=== PATIENT | female | born 1945 | race Caucasian/White ===

== ENCOUNTER 2016-09-17 11:23 | Inpatient (IN) | payer OTHER ==
--- NOTE | 2016-09-17 11:59 | PDOC ---
History of Present Illness <Kaiden Lim - Last Filed: 09/17/16 13:00> - History of Present Illness Initial Comments: 09/17/16 12:42 The patient is a 71 year old female, with a significant past medical history of , who presents to the emergency department with pain and drainage from her right upper extremity wound sent by Dr. Hilton today. The patient states her wound is the result of an infected AV fistula. She reports pain, swelling and some drainage from the wound. She denies chest pain, shortness of breath, headache and dizziness. She denies fever, chills, nausea, vomit, diarrhea and constipation. She denies dysuria, frequency, urgency and hematuria. Past surgical history: Left AKA, right Carballo Amputation PCP: Dr. Edwar Schmitz Vascular: Dr. Hilton <Nasrin Rivera - Last Filed: 09/17/16 13:04> - General Chief Complaint: Wound Infection Stated Complaint: INFECTION Past History - Past Medical History Anemia: Yes Asthma: No Cancer: No Cardiac Disorders: Yes (STENTS TIMES THREE) CVA: No COPD: No CHF: Yes Dementia: No Diabetes: Yes (IDDM) GI Disorders: No Disorders: Yes (CRF;[id number]) HTN: Yes Hypercholesterolemia: Yes Liver Disease: No Suicide Attempt (Hx): No Seizures: No Thyroid Disease: Yes - Surgical History Abdominal Surgery: No Appendectomy: No Cardiac Surgery: Yes (STENTS X3) Cholecystectomy: No Lung Surgery: No Neurologic Surgery: No Orthopedic Surgery: Yes (R.Rotator Cuff, R.AKA. LEFT MID FOOT AMPUTATION) - Psycho/Social/Smoking Cessation Hx Anxiety: No Suicidal Ideation: No Smoking Status: No Smoking History: Never smoked Have you smoked in the past 12 months: No Number of Cigarettes Smoked Daily: 0 Hx Alcohol Use: No Drug/Substance Use Hx: No Substance Use Type: None Hx Substance Use Treatment: No <Kaiden Lim - Last Filed: 09/17/16 13:00> <Nasrin Rivera - Last Filed: 09/17/16 13:04> - Past Medical History Allergies/Adverse Reactions: Allergies Allergy/AdvReac Type Severity Reaction Status Date / Time Sulfa (Sulfonamide Allergy Unknown Verified 12/23/16 11:52 Antibiotics) [Sulfa(Sulfonamide Antibiotics)] amoxicillin trihydrate AdvReac Severe Verified 09/17/16 11:52 [From Augmentin] potassium clavulanate AdvReac Severe Verified 09/17/16 11:52 [From Augmentin] tape AdvReac Severe Uncoded 09/17/16 11:52 Home Medications: Ambulatory Orders Insulin (Levemir) [Levemir Flexpen -] 18 units SQ HS 08/20/14 Aspirin [ASA -] 81 mg PO DAILY #90 tab.chew 08/29/14 Clopidogrel Bisulfate [Plavix -] 75 mg PO DAILY #90 tablet 08/29/14 Cyanocobalamin [Vitamin B12 -] 100 mcg PO DAILY #90 tablet 08/29/14 Glipizide 5 mg PO DAILY #90 tablet 08/29/14 Insulin (Levemir) [Levemir Flexpen -] 20 units SQ AM #90 pen 08/29/14 Pantoprazole Sodium [Protonix -] 40 mg PO DAILY #30 tablet.ec 08/29/14 Calcium Acetate [Phoslo -] 667 mg PO TID 04/06/16 Levothyroxine [Synthroid -] 213 mcg PO DAILY 08/10/16 Levothyroxine [Synthroid -] 250 mcg PO ASDIR 08/10/16 Metoprolol Succinate [Toprol XL -] 12.5 mg PO DAILY 08/10/16 Acetaminophen W/ Codeine #3 [Tylenol # 3 -] 1 tab PO Q4H PRN #90 tablet MDD 4 Alprazolam [Xanax] 0.25 mg PO DAILY PRN #30 tablet MDD 1 08/14/16 Oxycodone HCl [Roxicodone -] 5 mg PO Q6H #20 tablet MDD 6 08/14/16 Review of Systems - Review of Systems Able to Perform ROS?: Yes Comments:: 09/17/16 12:48 CONSTITUTIONAL: Absent: fever, chills, diaphoresis, generalized weakness, malaise, loss of appetite HEENT: Absent: rhinorrhea, nasal congestion, throat pain, throat swelling, difficulty swallowing, mouth swelling, ear pain, eye pain, visual Changes CARDIOVASCULAR: Absent: chest pain, syncope, palpitations, irregular heart rate, lightheadedness , peripheral edema RESPIRATORY: Absent: cough, shortness of breath, dyspnea with exertion, orthopnea, wheezing, stridor, hemoptysis GASTROINTESTINAL: Absent: abdominal pain, abdominal distension, nausea, vomiting, diarrhea, constipation, melena, hematochezia GENITOURINARY: Absent: dysuria, frequency, urgency, hesitancy, hematuria, flank pain, genital pain MUSCULOSKELETAL: Absent: myalgia, arthralgia, joint swelling SKIN: (+) wound infection and pain RUE. Absent: rash, itching, pallor HEMATOLOGIC/IMMUNOLOGIC: Absent: easy bleeding, easy bruising, lymphadenopathy, frequent infections ENDOCRINE: Absent: unexplained weight gain, unexplained weight loss, heat intolerance, cold intolerance NEUROLOGIC: Absent: headache, focal weakness or paresthesias, dizziness, unsteady gait, seizure, mental status changes, bladder or bowel incontinence PSYCHIATRIC: Absent: anxiety, depression, suicidal or homicidal ideation, hallucinations. <Nasrin Rivera - Last Filed: 09/17/16 13:04> *Physical Exam - Vital Signs Last Vital Signs Temp Pulse Resp BP Pulse Ox 98.4 F 58 L 20 180/50 98 09/17/16 11:48 09/17/16 11:48 09/17/16 11:48 09/17/16 11:48 09/17/16 11:48 <Kaiden Lim - Last Filed: 09/17/16 13:00> - Vital Signs Last Vital Signs Temp Pulse Resp BP Pulse Ox 98.4 F 58 L 20 180/50 98 09/17/16 11:48 09/17/16 11:48 09/17/16 11:48 09/17/16 11:48 09/17/16 11:48 - Physical Exam Comments: 09/17/16 12:49 GENERAL: Well developed, well nourished. Awake and alert. No acute distress. HEENT: Normocephalic, atraumatic. PERRLA, EOMI. No conjunctival pallor. Sclera are non- icteric. Moist mucous membranes. Oropharynx is clear. NECK: Supple. Full ROM. No JVD. Carotid pulses 2+ and symmetric, without bruits. No thyromegaly. No lymphadenopathy. CARDIOVASCULAR: Regular rate and rhythm. No murmurs, rubs, or gallops. Distal pulses are 2+ and symmetric. PULMONARY: No evidence of respiratory distress. Lungs clear to auscultation bilaterally. No wheezing, rales or rhonchi. ABDOMINAL: Soft. Non-tender. Non-distended. No rebound or guarding. No organomegaly. Normoactive bowel sounds. MUSCULOSKELETAL Normal range of motion at all joints. No bony deformities or tenderness. No CVA tenderness. EXTREMITIES: (+) Open wound inner aspect to right upper extremity. graft visible and appears infected/cellulitic, Right AKA, carballo amputation left lower extremity. No cyanosis. No clubbing. No edema. No calf tenderness. SKIN: Warm and dry. Normal capillary refill. No rashes. No jaundice. NEUROLOGICAL: Alert, awake, appropriate. Cranial nerves 2-12 intact. Normoreflexic in the upper and lower extremities. Normal speech. Toes are down-going bilaterally. Gait is normal without ataxia. PSYCHIATRIC: Cooperative. Good eye contact. Appropriate mood and affect. <Nasrin Rivera - Last Filed: 09/17/16 13:04> ED Treatment Course - LABORATORY CBC & Chemistry Diagram: 09/17/16 12:22 09/17/16 12:22 <Kaiden Lim - Last Filed: 09/17/16 13:00> - LABORATORY CBC & Chemistry Diagram: 09/17/16 12:22 09/17/16 12:22 <Nasrin Rivera - Last Filed: 09/17/16 13:04> Medical Decision Making - Medical Decision Making 09/17/16 12:52 The patient is a 72 year old female who presents from Dr. Hilton's office for infected RUE fistula. The infected graft is showing through with skin erosion and cellulitis. I will admit for IV abx. <Nasrin Rivera - Last Filed: 09/17/16 13:04> *DC/Admit/Observation/Transfer - Discharge Dispostion Admit: Yes <Kaiden Lim - Last Filed: 09/17/16 13:00> - Attestations Scribe Attestion: 09/17/16 12:51 Documentation prepared by Nasrin Rivera, acting as director global medical affairs for Kaiden Lim MD, <Nasrin Rivera - Last Filed: 09/17/16 13:04> Diagnosis at time of Disposition: ESRD on hemodialysis Dialysis AV fistula infection Qualifiers: Encounter type: initial encounter Qualified Code(s): T82.7XXA - Infection and inflammatory reaction due to other cardiac and vascular devices, implants and grafts, initial encounter - Discharge Dispostion Condition at time of disposition: Guarded
[2016-09-17] MEDS ORDERED: VANCOMYCIN 1,000 MG in DEXTROSE 5%-WATER - 250 ML IVPB ONE (12:09)
[2016-09-17] MEDS ORDERED: VANCOMYCIN 1 GRAM (PRE-DOCKED) 250 ML IVPB ONE (12:18)
[2016-09-17 12:41] LABS: BASOPHIL 0.9 % (0-2.0); EOSINOPHIL 1.6 % (0-4.5); MCH 28.4 pg (25.7-33.7); MCHC 31.5 g/dl (32.0-36.0); MEAN CELL VOLUME 90.1 fl (80-96); MEAN PLT VOLUME 8.4 fl (7.5-11.1); NEUTROPHILS 78.6 % (42.8-82.8); PLATELET COUNT 366 K/MM3 (134-434); RDW 17.2 % (11.6-15.6); WHITE BLOOD COUNT 10.5 K/mm3 (4.0-10.0)
[2016-09-17] MEDS ORDERED: morphine CARPU-JECT 4 MG/1 ML DISP.SYRIN IVPUSH ONE (12:58)
[2016-09-17] MEDS ORDERED: oxyCODONE HCL 5 MG TABLET PO PRN (13:01)
[2016-09-17] MEDS ORDERED: ALBUTEROL SO4 0.083% IH SOL 2.5 MG/3 ML VIAL.NEB. NEB PRN (13:03)
[2016-09-17] MEDS ORDERED: SENNOSIDES 8.6MG TABLET (FP) PO PRN (13:03)
[2016-09-17] MEDS ORDERED: GENTAMICIN INJECTION 80 MG in DEXTROSE 5%-WATER - 250 ML IVPB ONE (13:03)
[2016-09-17 13:07] LABS: ALBUMIN 2.7 g/dl (3.4-5.0); ANION GAP 12 (8-16); BILIRUBIN,TOTAL 0.4 mg/dL (0.2-1.0); CALCIUM 8.7 mg/dL (8.5-10.1); CO2 26 mmol/L (21-32); CREATININE 6.9 mg/dL (0.55-1.02); GLUCOSE,RANDOM 203 mg/dL (74-106); SGOT/AST 9 U/L (15-37); SGPT/ALT 12 U/L (12-78); TOT PROT 6.8 g/dl (6.4-8.2)
[2016-09-17 13:09] LABS: ALK PHOS 107 U/L (45-117); TROPONIN I < 0.02 ng/ml (0.00-0.05)
--- NOTE | 2016-09-17 13:09 | HP ---
Admitting History and Physical - Primary Care Physician PCP: Jessenia Galarza - Admission Chief Complaint: infected av fistula History of Present Illness: Pt with extensive pmhx as documented and well known to me presents from Dr. Hilton's office for infected RUE fistula. The infected graft is showing through with skin erosion and cellulitis. Pt to be admitted for i/v abx . Discussed with also-- may need to remove and will place permacath tomorrow . Pt comfortable but mood depressed . Pt was recently in hospital also for access issues - hero graft Pt seen in er - chart reviewed. Case also discussed with er physician. Pt to get vanco and genta in er - cultures send. History Source: Patient - Past Medical History Cardiovascular: Yes: CAD, CHF, HTN, Hyperlipdemia, Other (coronary stents x 3) Pulmonary: Yes: COPD Renal/: Yes: Renal Failure, Hemodialysis. No: Hematuria Heme/Onc: Yes: Anemia Infectious Disease: Yes: MRSA Musculoskeletal: Yes: Other (R rotator cuff repair) Endocrine: Yes: Diabetes Mellitus, Hypothyroidism - Past Surgical History Past Surgical History: Yes: Amputation (Rt AKA, left TMA), AV Fistula/Graft ( left arm), Hysterectomy (thyroid surgery), Stent - Smoking History Smoking history: Never smoked Have you smoked in the past 12 months: No Aproximately how many cigarettes per day: 0 - Alcohol/Substance Use Hx Alcohol Use: No - Social History ADL: Independent History of Recent Travel: No Home Medications - Allergies Allergies/Adverse Reactions: Allergies Allergy/AdvReac Type Severity Reaction Status Date / Time Sulfa (Sulfonamide Allergy Unknown Verified 09/17/16 11:52 Antibiotics) [Sulfa(Sulfonamide Antibiotics)] amoxicillin trihydrate AdvReac Severe Verified 09/17/16 11:52 [From Augmentin] potassium clavulanate AdvReac Severe Verified 09/17/16 11:52 [From Augmentin] tape AdvReac Severe Uncoded 09/17/16 11:52 - Home Medications Home Medications: Ambulatory Orders Insulin (Levemir) [Levemir Flexpen -] 18 units SQ HS 08/20/14 Aspirin [ASA -] 81 mg PO DAILY #90 tab.chew 08/29/14 Clopidogrel Bisulfate [Plavix -] 75 mg PO DAILY #90 tablet 08/29/14 Cyanocobalamin [Vitamin B12 -] 100 mcg PO DAILY #90 tablet 08/29/14 Glipizide 5 mg PO DAILY #90 tablet 08/29/14 Insulin (Levemir) [Levemir Flexpen -] 20 units SQ AM #90 pen 08/29/14 Pantoprazole Sodium [Protonix -] 40 mg PO DAILY #30 tablet.ec 08/29/14 Calcium Acetate [Phoslo -] 667 mg PO TID 04/06/16 Levothyroxine [Synthroid -] 213 mcg PO DAILY 08/10/16 Levothyroxine [Synthroid -] 250 mcg PO ASDIR 08/10/16 Metoprolol Succinate [Toprol XL -] 12.5 mg PO DAILY 08/10/16 Acetaminophen W/ Codeine #3 [Tylenol # 3 -] 1 tab PO Q4H PRN #90 tablet MDD 4 Alprazolam [Xanax] 0.25 mg PO DAILY PRN #30 tablet MDD 1 08/14/16 Oxycodone HCl [Roxicodone -] 5 mg PO Q6H #20 tablet MDD 6 08/14/16 Review of Systems - Review of Systems Constitutional: reports: No Symptoms Eyes: reports: No Symptoms HENT: reports: No Symptoms Neck: reports: No Symptoms Cardiovascular: reports: No Symptoms Respiratory: reports: No Symptoms Gastrointestinal: reports: No Symptoms Genitourinary: reports: No Symptoms Breasts: reports: Other (broken skin on left breast - no sign of infection) Neurological: reports: No Symptoms Endocrine: reports: No Symptoms Psychiatric: reports: Anxiety, Depression Physical Examination Vital Signs: Vital Signs Temperature 98.4 F 09/17/16 11:48 Pulse Rate 58 L 09/17/16 11:48 Respiratory Rate 20 09/17/16 11:48 Blood Pressure 180/50 09/17/16 11:48 O2 Sat by Pulse Oximetry (%) 98 09/17/16 11:48 Constitutional: Yes: No Distress, Anxious Eyes: Yes: Conjunctiva Clear Neck: Yes: Supple Cardiovascular: Yes: Regular Rate and Rhythm Respiratory: Yes: Diminished (at bases) Gastrointestinal: Yes: Soft Breast(s): Yes: Skin Changes (skin excoriation - left breast -) Extremities: Yes: Amputation Neurological: Yes: Alert Labs: CBC, BMP 09/17/16 12:22 Imaging - Results Chest X-ray: Pending EKG: Pending, Report Reviewed Problem List - Problems (1) Dialysis AV fistula infection Code(s): T82.7XXA - INFECT/INFLM REACT D/T OTH CARDI/VASC DEV/IMPLNT/GRFT, INIT Qualifiers: Encounter type: initial encounter Qualified Code(s): T82.7XXA - Infection and inflammatory reaction due to other cardiac and vascular devices, implants and grafts, initial encounter (2) ESRD on hemodialysis Code(s): N18.6 - END STAGE RENAL DISEASE Z99.2 - DEPENDENCE ON RENAL DIALYSIS (3) Anemia in ESRD (end-stage renal disease) Code(s): N18.6 - END STAGE RENAL DISEASE D63.1 - ANEMIA IN CHRONIC KIDNEY DISEASE (4) Diabetes Code(s): E11.9 - TYPE 2 DIABETES MELLITUS WITHOUT COMPLICATIONS Qualifiers: Diabetes mellitus type: type 1 Diabetes mellitus complication status: with circulatory complication Diabetes mellitus complication detail: with other circulatory complications Qualified Code(s): E10.59 - Type 1 diabetes mellitus with other circulatory complications (5) Foot amputation status Code(s): Z89.439 - ACQUIRED ABSENCE OF UNSPECIFIED FOOT Qualifiers: Laterality: right Qualified Code(s): Z89.431 - Acquired absence of right foot (6) Hypothyroidism Code(s): E03.9 - HYPOTHYROIDISM, UNSPECIFIED Assessment/Plan Abx Vascular on case Permacath tomorrow cxr pending. ekg - sinus lorna -- no acute changes. monitor bgm. will follow.
[2016-09-17 13:11] LABS: INR 1.2 (0.82-1.09); PROTHROMBIN TIME (PATIENT) 13.2 SEC (9.98-11.88)
[2016-09-17] MEDS ORDERED: LEVOTHYROXINE NA 125 MCG TABLET (FP) PO SCH (13:15)
[2016-09-17] MEDS ORDERED: GENTAMICIN 80 MG PREMIXED IVPB 100 ML IVPB ONE (13:36)
[2016-09-17] MEDS ORDERED: morphine CARPU-JECT 4 MG/1 ML DISP.SYRIN ONE (13:52)
[2016-09-17] MEDS ORDERED: morphine CARPU-JECT 4 MG/1 ML DISP.SYRIN IVPUSH PRN (14:09)
[2016-09-17] MEDS ORDERED: HYDROmorphone HCL CARPU-JECT 1 MG/1 ML DISP.SYRIN IVPUSH ONE (14:34)
[2016-09-17] MEDS ORDERED: KETOROLAC TROMETHAMINE 30 MG/1 ML VIAL ONE (14:35)
[2016-09-17] MEDS ORDERED: KETOROLAC TROMETHAMINE 30 MG/1 ML VIAL IVPUSH ONE ×2 (14:43→14:45)
--- NOTE | 2016-09-17 14:46 | CONSULT ---
Consult - text type - Consultation Consultation Note: Renal Follow up for ESRD on HD/Access infection This is a 71 year old woman with PMhx of ESRD on HD (MWF), PVD, IDDM presents with AVG site infection. Pt s/p HeRO graft placement in July in the right ARM complicated by graft dislodgement and hematoma formation. Pt has been using her new access. Pt was seen by vascular sx on Tuesday and her theresa were removed. There was noted to be a superical wound infection and she was started on Vanco with dialysis on Tuesday. Pt denies any fever or chills. No N/V/D. Last dialysis was Tuesday. PMhx: as above Allergies: Sulfa Family Hx: NC ROS: as per HPI Home Meds: Medication Instructions Recorded Insulin (Levemir) [Levemir Flexpen 18 units SQ HS 08/20/14 -] Aspirin [ASA -] 81 mg PO DAILY #90 tab.chew 08/29/14 Clopidogrel Bisulfate [Plavix -] 75 mg PO DAILY #90 tablet 08/29/14 Cyanocobalamin [Vitamin B12 -] 100 mcg PO DAILY #90 tablet 08/29/14 Glipizide 5 mg PO DAILY #90 tablet 08/29/14 Insulin (Levemir) [Levemir Flexpen 20 units SQ AM #90 pen 08/29/14 -] Pantoprazole Sodium [Protonix -] 40 mg PO DAILY #30 tablet.ec 08/29/14 Calcium Acetate [Phoslo -] 667 mg PO TID 04/06/16 Levothyroxine [Synthroid -] 213 mcg PO DAILY 08/10/16 Levothyroxine [Synthroid -] 250 mcg PO ASDIR 08/10/16 Metoprolol Succinate [Toprol XL -] 12.5 mg PO DAILY 08/10/16 Acetaminophen W/ Codeine #3 1 tab PO Q4H PRN #90 tablet MDD 4 08/14/16 [Tylenol # 3 -] Alprazolam [Xanax] 0.25 mg PO DAILY PRN #30 tablet 08/14/16 MDD 1 Oxycodone HCl [Roxicodone -] 5 mg PO Q6H #20 tablet MDD 6 08/14/16 Vital Signs Temperature 98.4 F 09/17/16 11:48 Pulse Rate 58 L 09/17/16 11:48 Respiratory Rate 20 09/17/16 11:48 Blood Pressure 180/50 09/17/16 11:48 O2 Sat by Pulse Oximetry (%) 98 09/17/16 11:48 Gen: NAD, awake and alert HEENT: NC/AT, MM No JVD CVS: RRR, no M/R Lungs:CTA no rales or wheeze Abd: soft NT/ND Ext: No edema, clubbing or cyanosis Neuro: AAOx3, no focal defects CBC, BMP 09/17/16 12:22 09/17/16 12:22 Current Medications Acetaminophen/Codeine Phosphate (Tylenol # 3 -) 1 tab PO Q4H PRN PRN Reason: FEVER OR PAIN Albuterol Sulfate (Ventolin 0.083% Nebulizer Soln -) amp NEB Q4H PRN PRN Reason: SHORT OF BREATH/WHEEZING Alprazolam (Xanax -) 0.25 mg PO BID [facility] Aspirin (Asa -) 81 mg PO DAILY [facility] Calcium Acetate (Phoslo -) 667 mg PO TID [facility] Clopidogrel Bisulfate (Plavix -) 75 mg PO DAILY [facility] Cyanocobalamin (Vitamin B12 -) 100 mcg PO DAILY [facility] Docusate Sodium (Colace -) 100 mg PO TID [facility] Heparin Sodium (Porcine) (Heparin -) 5,000 unit SQ BID [facility] Insulin Aspart (Novolog Vial Sliding Scale -) 0 vial SQ ACHS [facility] PRN Reason: Protocol Ketorolac Tromethamine (Toradol Injection -) 30 mg IVPUSH NOW ONE Stop: 09/22/16 14:44 Levothyroxine Sodium (Synthroid -) 200 mcg PO ONCE ONE Stop: 09/18/16 06:01 Metoprolol Succinate (Toprol Xl -) 12.5 mg PO DAILY [facility] Non-Formulary Medication (Insulin (Levemir) [Levemir Flexpen -]) 18 units SQ HS [facility] Non-Formulary Medication (Insulin (Levemir) [Levemir Flexpen -]) 20 units SQ AM [facility] Oxycodone HCl (Roxicodone -) 5 mg PO Q6H PRN PRN Reason: PAIN Pantoprazole Sodium (Protonix -) 40 mg PO DAILY [facility] Senna (Senna -) 2 tab PO HS PRN PRN Reason: CONSTIPATION A/P 71 year old woman with PMhx of ESRD on HD (MWF), PVD, IDDM presents with AVG site infection. Pt s/p HeRO graft placement in July in the right ARM complicated by graft dislodgement and hematoma formation. #ESRD on HD with Infected HeRO graft site Seen by Vascular Sx -> for removal of infected graft in the morning Empiric Abx coverage: Vanco and Gent given in the ED Start Zosyn 2.25g Q12h for gram negative and anerobic coverage Check Vanco level pre-HD tomorrow and redose as needed HD tomorrow following graft removal via permacath Pain control (given ketrolac in the ED, Dilaudid prn) Dose all meds for intermittent HD Check blood and wound cultures #Anemia Continue FALLON with HD Transfuse for Hgb less then 8 #Renal Osteodystrophy Continue Phoslo with meals #IDDM continue insulin Thank you Will follow Wan Cruz DO
--- NOTE | 2016-09-17 14:46 | CONSULT ---
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 The procedure was complicated by catheter migration requiring revision and neuropathy of the radial nerve. She was discharged to SNF several weeks ago and was seen in my office last week for staple removal. The graft has been functioning well. Today I was called by nurse that the graft was visible through a skin wound in the distal arm. She has had no fever or signs of infection. - History Source History Provided By: Patient, Medical Record - Past Medical History Cardio/Vascular: Yes: CAD, CHF, HTN, Hyperlipdemia, Other (coronary stents x 3) Pulmonary: Yes: COPD Renal/: Yes: Renal Failure, Hemodialysis. No: Hematuria Infectious Disease: Yes: MRSA Musculoskeletal: Yes: Other (R rotator cuff repair) Endocrine: Yes: Diabetes Mellitus, Hypothyroidism Additional Medical History: Steal syndrome , PVD- s//p surgery - Past Surgical History Past Surgical History: Yes: Amputation (Rt AKA, left TMA), AV Fistula/Graft ( left arm), Hysterectomy (thyroid surgery), Stent - Alcohol/Substance Use Hx Alcohol Use: No - Smoking History Smoking history: Never smoked Have you smoked in the past 12 months: No Aproximately how many cigarettes per day: 0 - Social History ADL: Independent History of Recent Travel: No Home Medications - Allergies Allergies/Adverse Reactions: Allergies Allergy/AdvReac Type Severity Reaction Status Date / Time Sulfa (Sulfonamide Allergy Unknown Verified 09/17/16 11:52 Antibiotics) [Sulfa(Sulfonamide Antibiotics)] amoxicillin trihydrate AdvReac Severe Verified 09/17/16 11:52 [From Augmentin] potassium clavulanate AdvReac Severe Verified 09/17/16 11:52 [From Augmentin] tape AdvReac Severe Uncoded 09/17/16 11:52 - Home Medications Home Medications: Ambulatory Orders Insulin (Levemir) [Levemir Flexpen -] 18 units SQ HS 08/20/14 Aspirin [ASA -] 81 mg PO DAILY #90 tab.chew 08/29/14 Clopidogrel Bisulfate [Plavix -] 75 mg PO DAILY #90 tablet 08/29/14 Cyanocobalamin [Vitamin B12 -] 100 mcg PO DAILY #90 tablet 08/29/14 Glipizide 5 mg PO DAILY #90 tablet 08/29/14 Insulin (Levemir) [Levemir Flexpen -] 20 units SQ AM #90 pen 08/29/14 Pantoprazole Sodium [Protonix -] 40 mg PO DAILY #30 tablet.ec 08/29/14 Calcium Acetate [Phoslo -] 667 mg PO TID 04/06/16 Levothyroxine [Synthroid -] 213 mcg PO DAILY 08/10/16 Levothyroxine [Synthroid -] 250 mcg PO ASDIR 08/10/16 Metoprolol Succinate [Toprol XL -] 12.5 mg PO DAILY 08/10/16 Acetaminophen W/ Codeine #3 [Tylenol # 3 -] 1 tab PO Q4H PRN #90 tablet MDD 4 Alprazolam [Xanax] 0.25 mg PO DAILY PRN #30 tablet MDD 1 08/14/16 Oxycodone HCl [Roxicodone -] 5 mg PO Q6H #20 tablet MDD 6 08/14/16 Physical Exam Vital Signs: Vital Signs Temperature 98.4 F 09/17/16 11:48 Pulse Rate 58 L 09/17/16 11:48 Respiratory Rate 20 09/17/16 11:48 Blood Pressure 180/50 09/17/16 11:48 O2 Sat by Pulse Oximetry (%) 98 09/17/16 11:48 Extremities: Yes: Other (Right upper arm with open wound over graft (not one of the incisions) and PTFE exposed. No pus seen.) Problem List - Problems (1) Renal dialysis device, implant, or graft complication Assessment/Plan: Exposed graft will need to be removed and HeRO converted to Permacath to allow arm to heal. As she has had steal and neuro complications I do not feel that attempts to salvage this graft with a revision are warranted. Code(s): T82.9XXA - UNSP COMP OF CARDIAC AND VASCULAR PROSTH DEV/GRFT, INIT
[2016-09-17] MEDS ORDERED: HYDROmorphone HCL CARPU-JECT 1 MG/1 ML DISP.SYRIN IVPUSH PRN (14:58)
--- NOTE | 2016-09-17 15:16 | CONSULT ---
Consult Consult Specialty:: Pre-operative cardiovascular evaluation Referred by:: Jessenia Galarza MD Reason for Consultation:: Pre-operative cardiovascular evaluation - History of Present Illness Chief Complaint: Graft wound infection History of Present Illness: This is a 71 year old woman with h/o CAD s/p multivessel PCI (stent), angina pectoris, LV diastolic dysfunction with h/o failure, chol, hypothyroidism, ESRD on HD (MWF), PVD s/p right AKA 01/2013, left TMA 02/2014 IDDM presented with RUE infected AVG . Pt s/p HeRO graft placement in July in the right ARM complicated by graft dislodgement and hematoma formation. Pt has been using her new access, theresa removed Tuesday, reports pain and steal discomfort. There was noted to be a superficial wound infection and she was started on Vanco / gentwith dialysis on Tuesday. Pt denies any fever or chills. No N/V/D. Last dialysis was Tuesday. - History Source History Provided By: Patient Limitations to Obtaining History: No Limitations - Past Medical History Cardio/Vascular: Yes: CAD, CHF, HTN, Hyperlipdemia, Other (coronary stents x 3) Pulmonary: Yes: COPD Renal/: Yes: Renal Failure, Hemodialysis. No: Hematuria Infectious Disease: Yes: MRSA Musculoskeletal: Yes: Other (R rotator cuff repair) Endocrine: Yes: Diabetes Mellitus, Hypothyroidism Additional Medical History: Steal syndrome , PVD- s//p surgery - Past Surgical History Past Surgical History: Yes: Amputation (Rt AKA, left TMA), AV Fistula/Graft ( left arm), Hysterectomy (thyroid surgery), Stent - Alcohol/Substance Use Hx Alcohol Use: No - Smoking History Smoking history: Never smoked Have you smoked in the past 12 months: No Aproximately how many cigarettes per day: 0 - Social History ADL: Independent History of Recent Travel: No Home Medications - Allergies Allergies/Adverse Reactions: Allergies Allergy/AdvReac Type Severity Reaction Status Date / Time Sulfa (Sulfonamide Allergy Unknown Verified 09/17/16 11:52 Antibiotics) [Sulfa(Sulfonamide Antibiotics)] amoxicillin trihydrate AdvReac Severe Verified 09/17/16 11:52 [From Augmentin] potassium clavulanate AdvReac Severe Verified 09/17/16 11:52 [From Augmentin] tape AdvReac Severe Uncoded 09/17/16 11:52 - Home Medications Home Medications: Ambulatory Orders Insulin (Levemir) [Levemir Flexpen -] 18 units SQ HS 08/20/14 Aspirin [ASA -] 81 mg PO DAILY #90 tab.chew 08/29/14 Clopidogrel Bisulfate [Plavix -] 75 mg PO DAILY #90 tablet 08/29/14 Cyanocobalamin [Vitamin B12 -] 100 mcg PO DAILY #90 tablet 08/29/14 Glipizide 5 mg PO DAILY #90 tablet 08/29/14 Insulin (Levemir) [Levemir Flexpen -] 20 units SQ AM #90 pen 08/29/14 Pantoprazole Sodium [Protonix -] 40 mg PO DAILY #30 tablet.ec 08/29/14 Calcium Acetate [Phoslo -] 667 mg PO TID 04/06/16 Levothyroxine [Synthroid -] 213 mcg PO DAILY 08/10/16 Levothyroxine [Synthroid -] 250 mcg PO ASDIR 08/10/16 Metoprolol Succinate [Toprol XL -] 12.5 mg PO DAILY 08/10/16 Acetaminophen W/ Codeine #3 [Tylenol # 3 -] 1 tab PO Q4H PRN #90 tablet MDD 4 Alprazolam [Xanax] 0.25 mg PO DAILY PRN #30 tablet MDD 1 08/14/16 Oxycodone HCl [Roxicodone -] 5 mg PO Q6H #20 tablet MDD 6 08/14/16 Review of Systems - Review of Systems Musculoskeletal: reports: Extremity Pain Vital Signs: Vital Signs Temperature 98.4 F 09/17/16 11:48 Pulse Rate 58 L 09/17/16 11:48 Respiratory Rate 20 09/17/16 11:48 Blood Pressure 180/50 09/17/16 11:48 O2 Sat by Pulse Oximetry (%) 98 09/17/16 11:48 Constitutional: Yes: No Distress, Calm Neck: Yes: Supple Respiratory: Yes: Regular, Diminished Gastrointestinal: Yes: Normal Bowel Sounds, Soft Cardiovascular: Yes: Regular Rate and Rhythm JVD: No Carotid Bruit: No Heart Sounds: Yes: S1, S2 Murmur: Yes: Systolic Murmur, Grade 1 Extremities: Yes: Amputation (Right BKA, left TMA) Edema: No - Other Data Labs, Other Data: INR, PTT INR 1.20 (0.82-1.09) H 09/17/16 12:22 Imaging - Results Chest X-ray: Report Reviewed (Increased congestion) Problem List - Problems (1) Dialysis AV fistula infection Code(s): T82.7XXA - INFECT/INFLM REACT D/T OTH CARDI/VASC DEV/IMPLNT/GRFT, INIT Qualifiers: Encounter type: initial encounter Qualified Code(s): T82.7XXA - Infection and inflammatory reaction due to other cardiac and vascular devices, implants and grafts, initial encounter (2) ESRD on hemodialysis Code(s): N18.6 - END STAGE RENAL DISEASE Z99.2 - DEPENDENCE ON RENAL DIALYSIS (3) Renal dialysis device, implant, or graft complication Code(s): T82.9XXA - UNSP COMP OF CARDIAC AND VASCULAR PROSTH DEV/GRFT, INIT Qualifiers: Encounter type: subsequent encounter Qualified Code(s): T82.9XXD - Unspecified complication of cardiac and vascular prosthetic device, implant and graft, subsequent encounter (4) Diabetes Code(s): E11.9 - TYPE 2 DIABETES MELLITUS WITHOUT COMPLICATIONS Qualifiers: Diabetes mellitus type: type 1 Diabetes mellitus complication status: with circulatory complication Diabetes mellitus complication detail: with other circulatory complications Qualified Code(s): E10.59 - Type 1 diabetes mellitus with other circulatory complications (5) S/P transmetatarsal amputation of foot Code(s): Z89.439 - ACQUIRED ABSENCE OF UNSPECIFIED FOOT Qualifiers: Laterality: left Qualified Code(s): Z89.432 - Acquired absence of left foot (6) Steal syndrome dialysis vascular access Code(s): T82.898A - [facility] COMPLICATION OF VASCULAR PROSTH DEV/GRFT, INIT Qualifiers: Encounter type: subsequent encounter Qualified Code(s): T82.898D - Other specified complication of vascular prosthetic devices, implants and grafts , subsequent encounter (7) Pre-operative cardiovascular examination Code(s): Z01.810 - ENCOUNTER FOR PREPROCEDURAL CARDIOVASCULAR EXAMINATION Assessment/Plan 1. Infected RUE AVG 2. PAD s/p right BKA, left TMA 2. CAD s/p multivessel PCI (stent), angina pectoris 3. LV diastolic dysfunction 4. ESRD on HD 5. Type 2 DM 6. Hyperlipidemia 7. HTN/HCVD 8. Hypothyroidism PLAN: 1. Given absence of sxs of acute coronary syndrome, decompensated CHF or malignant arrhythmia, may proceed with RUE AVG removal, Hero graft->PC from CV standpoint without further testing 2. Antibiotics per ID, f/u C&S 3. Continue Toprol XL 12.5 qd, hold Aspirin and Clopidogrel pre-op 4. DVT and GI prophylaxis 5. Thank you for consultative opportunity
[2016-09-17] MEDS ORDERED: SUCCINYLCHOLINE CHLORIDE 200 MG/10 ML VIAL ONE (15:44)
[2016-09-17] MEDS ORDERED: ePHEDrine SULFATE 50 MG/1 ML AMPULE ONE (15:44)
--- NOTE | 2016-09-17 15:46 | PN ---
Progress Note, Physician Chief Complaint: ID Consult dictated NO fever chills - Current Medication List Current Medications: Active Medications Acetaminophen/Codeine Phosphate (Tylenol # 3 -) 1 tab PO Q4H PRN PRN Reason: FEVER OR PAIN Albuterol Sulfate (Ventolin 0.083% Nebulizer Soln -) amp NEB Q4H PRN PRN Reason: SHORT OF BREATH/WHEEZING Alprazolam (Xanax -) 0.25 mg PO BID [facility] Aspirin (Asa -) 81 mg PO DAILY [facility] Calcium Acetate (Phoslo -) 667 mg PO TID [facility] Clopidogrel Bisulfate (Plavix -) 75 mg PO DAILY [facility] Cyanocobalamin (Vitamin B12 -) 100 mcg PO DAILY [facility] Docusate Sodium (Colace -) 100 mg PO TID [facility] Epoetin Sky (Epogen -) 10,000 units IVPUSH ONCE ONE Stop: 09/18/16 10:01 Heparin Sodium (Porcine) (Heparin -) 5,000 unit SQ BID [facility] Hydromorphone HCl (Dilaudid Injection -) 0.5 mg IVPUSH Q6H PRN PRN Reason: PAIN Vancomycin HCl 1,000 mg/ (Dextrose) 250 mls @ 250 mls/hr IVPB ONCE ONE Stop: 09/18/16 10:59 Insulin Aspart (Novolog Vial Sliding Scale -) 0 vial SQ ACHS [facility] PRN Reason: Protocol Ketorolac Tromethamine (Toradol Injection -) 30 mg IVPUSH NOW ONE Stop: 09/22/16 14:44 Levothyroxine Sodium (Synthroid -) 200 mcg PO ONCE ONE Stop: 09/18/16 06:01 Metoprolol Succinate (Toprol Xl -) 12.5 mg PO DAILY [facility] Non-Formulary Medication (Insulin (Levemir) [Levemir Flexpen -]) 18 units SQ HS [facility] Non-Formulary Medication (Insulin (Levemir) [Levemir Flexpen -]) 20 units SQ AM [facility] Pantoprazole Sodium (Protonix -) 40 mg PO DAILY [facility] Senna (Senna -) 2 tab PO HS PRN PRN Reason: CONSTIPATION - Objective Vital Signs: Vital Signs Temperature 98.4 F 09/17/16 11:48 Pulse Rate 58 L 09/17/16 11:48 Respiratory Rate 20 09/17/16 11:48 Blood Pressure 180/50 09/17/16 11:48 O2 Sat by Pulse Oximetry (%) 98 09/17/16 11:48 Breast(s): Yes: Other (left breast lump lateral tender to touch) Extremities: Yes: Other (Right arm graft with 2 open areas purulent drainage) Labs: INR, PTT INR 1.20 (0.82-1.09) H 09/17/16 12:22 Problem List - Problems (1) Dialysis AV fistula infection Code(s): T82.7XXA - INFECT/INFLM REACT D/T OTH CARDI/VASC DEV/IMPLNT/GRFT, INIT Qualifiers: Encounter type: initial encounter Qualified Code(s): T82.7XXA - Infection and inflammatory reaction due to other cardiac and vascular devices, implants and grafts, initial encounter (2) ESRD on hemodialysis Code(s): N18.6 - END STAGE RENAL DISEASE Z99.2 - DEPENDENCE ON RENAL DIALYSIS (3) Anemia in ESRD (end-stage renal disease) Code(s): N18.6 - END STAGE RENAL DISEASE D63.1 - ANEMIA IN CHRONIC KIDNEY DISEASE Assessment/Plan Microbiology Laboratory Tests 09/17/16 12:22 WBC 10.5 H Hgb 9.3 L Hct 29.4 L Plt Count 366 Assessment Diabetic with ESRD and infected right arm graft Cover for staph and GNR NO true PCN allergy Left breast mass ? abscess tender to touch Plan BLood cultures Wound cultures done CRP Vancomycin Cefepime Dr Hilton to see graft will likely have to be removed Sonogram breast here Danica CASTILLO
[2016-09-17] MEDS ORDERED: CEFEPIME HCL 2 GM VIAL (RESTRICTED TO ID) IVPB SCH (16:00)
[2016-09-17] MEDS ORDERED: METOPROLOL SUCCINATE 25 MG TAB.SR.24H (FP) ONE (16:15)
[2016-09-17] MEDS: ACETAMINOPHEN WITH CODEINE 300MG/30MG TABLET PO PRN ×2 (16:17→22:08)
[2016-09-17 16:33] VITALS: BMI 36.6
[2016-09-17] MEDS: DOCUSATE SODIUM 100 MG CAPSULE (FP) PO SCH ×2 (17:13→21:37)
[2016-09-17] MEDS: INSULIN SLIDING SCALE (NOVOLOG) 1 VIAL SQ SCH ×2 (17:28→21:43)
[2016-09-17] MEDS ORDERED: METOPROLOL SUCCINATE 25 MG TAB.SR.24H (FP) PO SCH (17:45)
[2016-09-17] MEDS: CALCIUM ACETATE 667 MG CAPSULE (FP) PO SCH (17:54)
[2016-09-17] MEDS: CEFEPIME 0.5 GM in DEXTROSE 5%-WATER - 50 ML IVPB SCH (18:44)
--- NOTE | 2016-09-17 21:12 | CONS ---
DATE OF CONSULTATION: DATE OF DICTATION: 09/17/2016 HISTORY OF PRESENT ILLNESS: This is a 71-year-old female with endstage renal disease and insulin-dependent diabetes who is admitted with an infected AV graft. The patient has a history of peripheral vascular disease, sputum production right lower extremity amputation and transmetatarsal amputation on the left foot. She had had an AV graft inserted for dialysis in mid-July. However, August 17, the graft was noted to be malfunctioning and required revision. Since then, she has been able to use the graft successfully at dialysis 3 times a week. She has no fever or chills and today was noted to have purulent drainage from the graft for which she was admitted for IV antibiotics. She has no fever, chills, or other systemic complaints. PAST MEDICAL HISTORY: Includes end-stage renal disease, peripheral vascular disease, coronary artery disease, left diastolic dysfunction, hyperlipidemia, hypothyroidism, right AKA, left transmetatarsal amputation. MEDICATIONS: Insulin, aspirin, Plavix, glipizide, Protonix, levothyroxine, metoprolol, Roxicodone. ALLERGIES: SULFA. No penicillin allergy after discussion with the patient. SOCIAL HISTORY: Never smoked. No alcohol or substance abuse. FAMILY HISTORY: Noncontributory. REVIEW OF SYSTEMS: Respiratory: No cough, shortness of breath. Cardiac: No chest pain, palpitations. Gastrointestinal: No nausea, vomiting, abdominal pain. Genitourinary: End-stage renal disease. No dysuria or hematuria. PHYSICAL EXAMINATION: General: She was an alert female, heavy set. Vital Signs: Weight 220, temperature 98.4, pulse 58, blood pressure 180/50, respirations 20. Neck: Supple. Lungs: Clear to P and A. Heart: S1, S2. Regular rhythm without murmur or gallop. Breasts: Reveal a tender well-circumscribed mass in the lateral left breast adjacent to the nipple, tender to touch. No drainage noted. Extremities: Revealed open areas on the right upper extremity AV graft with purulent drainage noted. The white count was 10.5, hemoglobin 9.3, platelets of 366. ASSESSMENT: A 71-year-old female with end-stage renal disease, insulin-dependent diabetes presents with infected arteriovenous graft, recently inserted and revised in July 2016, purulent drainage noted in the absence of any fever or systemic symptoms, 2 wound cultures done from the open areas of the arteriovenous graft. Dr. Hilton to see patient later today, regarding the possibility for the need for arteriovenous graft removal. Blood cultures x2 sets have been done. A sonogram of the left breast will be done to evaluate the left breast mass. Possible need for mammogram as well. JOSE KIDD M.D. [id number]
[2016-09-17] MEDS: HEPARIN NA (PORCINE) 5,000 UNITS/ML 1ML VIAL SQ SCH (21:37)
[2016-09-17] MEDS ORDERED: INSULIN DETEMIR 100 UNITS/ML MDV SQ SCH (22:00)
[2016-09-17] MEDS ORDERED: ALPRAZolam 0.25 MG TABLET PO SCH (22:00)
[2016-09-17] MEDS ORDERED: INSULIN SQ SCH (22:00)
[2016-09-17] MEDS ORDERED: INSULIN (NOVOLOG) ASPART 100 UNITS/ML 10ML VIAL ONE (22:06)
[2016-09-18] MEDS ORDERED: LEVOTHYROXINE NA 200 MCG TABLET PO ONE (06:00)
[2016-09-18] MEDS: DOCUSATE SODIUM 100 MG CAPSULE (FP) PO SCH ×3 (06:49→21:39)
[2016-09-18] MEDS: INSULIN SLIDING SCALE (NOVOLOG) 1 VIAL SQ SCH ×3 (06:53→21:42)
[2016-09-18] MEDS ORDERED: INSULIN DETEMIR 100 UNITS/ML MDV SQ SCH (07:00)
[2016-09-18] MEDS ORDERED: PATIENT'S OWN MEDICATION (NON-FORMULARY) (Insulin (Levemir) [Levemir Flexpen -] 20 UNITS) SQ SCH (07:00)
[2016-09-18 07:14] LABS: BASOPHIL 0.9 % (0-2.0); EOSINOPHIL 2.4 % (0-4.5); MCH 28.1 pg (25.7-33.7); MCHC 31.2 g/dl (32.0-36.0); MEAN CELL VOLUME 89.9 fl (80-96); MEAN PLT VOLUME 8.4 fl (7.5-11.1); NEUTROPHILS 72.5 % (42.8-82.8); PLATELET COUNT 364 K/MM3 (134-434); RDW 16.9 % (11.6-15.6); WHITE BLOOD COUNT 9.9 K/mm3 (4.0-10.0)
[2016-09-18 07:39] LABS: ALBUMIN 2.4 g/dl (3.4-5.0); CALCIUM 8.3 mg/dL (8.5-10.1); MAGNESIUM 2.3 mg/dL (1.8-2.4); PHOSPHOROUS 4.9 mg/dL (2.5-4.9)
[2016-09-18 07:47] LABS: BILIRUBIN,TOTAL 0.9 mg/dL (0.2-1.0)
[2016-09-18] MEDS: CALCIUM ACETATE 667 MG CAPSULE (FP) PO SCH ×3 (08:38→17:47)
[2016-09-18 08:43] LABS: CREATININE 7.8 mg/dL (0.55-1.02)
--- NOTE | 2016-09-18 09:03 | PN ---
Progress Note (short form) - Note Progress Note: ID Patient in OR for removal of graft infection as per Dr Renee Given Vancomycin and Cefepime and dose of gent though not " septic" Selected Entries 09/18/16 07:55 Temperature 97.8 F Pulse Rate 51 L Respiratory 20 Rate Blood Pressure 149/55 Microbiology Laboratory Tests 09/18/16 09/18/16 06:00 06:30 WBC 9.9 Hgb 8.4 L Hct 27.0 L Plt Count 364 Vancomycin Trough 18.259 H* Assessment ESRD with infection AV graft Plan Wound c/s pending Vanco level adequate for today and probably tomorrow Await c/s buts blood cultures no growth this morning Removal of graft pending Danica CASTILLO Problem List - Problems (1) Dialysis AV fistula infection Code(s): T82.7XXA - INFECT/INFLM REACT D/T OTH CARDI/VASC DEV/IMPLNT/GRFT, INIT Qualifiers: Encounter type: initial encounter Qualified Code(s): T82.7XXA - Infection and inflammatory reaction due to other cardiac and vascular devices, implants and grafts, initial encounter (2) ESRD on hemodialysis Code(s): N18.6 - END STAGE RENAL DISEASE Z99.2 - DEPENDENCE ON RENAL DIALYSIS (3) Anemia in ESRD (end-stage renal disease) Code(s): N18.6 - END STAGE RENAL DISEASE D63.1 - ANEMIA IN CHRONIC KIDNEY DISEASE
[2016-09-18] MEDS ORDERED: ONDANSETRON 4 MG/2 ML VIAL IVPUSH PRN ×2 (09:10→11:25)
[2016-09-18] MEDS ORDERED: LIDOCAINE HCL 1%, 10 MG/ML (20ML VIAL) NR ONE (09:17)
[2016-09-18] MEDS ORDERED: LIDOCAINE HCL 1%, 10 MG/ML (20ML VIAL) IJ ONE (09:17)
[2016-09-18] MEDS ORDERED: MIDAZOLAM HCL 2 MG/2 ML SINGLE DOSE VIAL ONE ×3 (09:18→10:39)
[2016-09-18] MEDS ORDERED: PROPOFOL 20 ML ONE (09:43)
[2016-09-18] MEDS ORDERED: CLOPIDOGREL BISULFATE 75 MG TABLET (FP) PO SCH (10:00)
[2016-09-18] MEDS ORDERED: PANTOPRAZOLE 40 MG TABLET (FP) PO SCH (10:00)
[2016-09-18] MEDS ORDERED: BACITRACIN 50,000 UNITS VIAL NR ONE (10:00)
[2016-09-18] MEDS ORDERED: VANCOMYCIN 1 GRAM (PRE-DOCKED) 250 ML IVPB ONE ×2 (10:00→12:45)
[2016-09-18] MEDS ORDERED: ASPIRIN 81 MG CHEWABLE TABLETS PO SCH (10:00)
[2016-09-18] MEDS ORDERED: CYANOCOBALAMIN (VITAMIN B-12) 100 MCG TABLET PO SCH (10:00)
[2016-09-18] MEDS ORDERED: METOPROLOL SUCCINATE 25 MG TAB.SR.24H (FP) PO SCH (10:00)
[2016-09-18] MEDS ORDERED: EPOETIN ALFA 10,000 UNIT/1 ML VIAL IVPUSH ONE ×2 (10:00→12:45)
[2016-09-18] MEDS ORDERED: HEPARIN NA (PORCINE) 5,000 UNITS/ML 1ML VIAL ONE (10:11)
--- NOTE | 2016-09-18 11:13 | OP ---
Operative Note - Note: Operative Date: 09/18/16 Pre-Operative Diagnosis: Infected HeRO graft right arm. ESRD on HD Operation: Removal HeRO graft. Placement Permacath. Debridement of right arm wounds. Findings: Purulent infection of proximal AV graft segment. Arterial anastomosis incorporated in scar tissue. No evidence for infection in venous side of graft or HeRO catheter. Implants: 28 cm Permacath Post-Operative Diagnosis: Same as Pre-op Surgeon: Dharmesh Hilton Anesthesiologist/BEER RUNNER: Maritza Kirk Anesthesia: Fractional Estimated Blood Loss (mls): 30
[2016-09-18] MEDS ORDERED: ALBUTEROL SO4 0.083% IH SOL 2.5 MG/3 ML VIAL.NEB. NEB PRN (11:25)
--- NOTE | 2016-09-18 12:44 | PN ---
Progress Note, Physician Chief Complaint: Patient admitted with malfunctioning AV graft ( hero) Had removal of the same, and placement of a right IJ catheter for dialysis. - Current Medication List Current Medications: Active Medications Acetaminophen/Codeine Phosphate (Tylenol # 3 -) 1 tab PO Q4H PRN PRN Reason: FEVER OR PAIN Albuterol Sulfate (Ventolin 0.083% Nebulizer Soln -) 1 amp NEB Q4H PRN PRN Reason: SHORT OF BREATH/WHEEZING Alprazolam (Xanax -) 0.25 mg PO BID [facility] Calcium Acetate (Phoslo -) 667 mg PO TIDCM [facility] Clopidogrel Bisulfate (Plavix -) 75 mg PO DAILY [facility] Cyanocobalamin (Vitamin B12 -) 100 mcg PO DAILY [facility] Docusate Sodium (Colace -) 100 mg PO TID [facility] Epoetin Sky (Procrit -) 10,000 unit IVPUSH ONCE ONE Stop: 09/18/16 11:26 Fentanyl (Sublimaze Injection -) 25 mcg IVPUSH [id number] PRN PRN Reason: PAIN Stop: 09/21/16 09:11 Heparin Sodium (Porcine) (Heparin -) 5,000 unit SQ BID [facility] Hydromorphone HCl (Dilaudid Injection -) 0.5 mg IVPUSH Q6H PRN PRN Reason: PAIN Cefepime HCl 0.5 gm/ Dextrose 50 mls @ 100 mls/hr IVPB DAILY [facility] Vancomycin HCl (Vancomycin (Pre-Docked)) 250 mls @ 150 mls/hr IVPB ONCE ONE Stop: 09/18/16 11:39 Insulin Aspart (Novolog Vial Sliding Scale -) 1 vial SQ ACHS [facility] PRN Reason: Protocol Insulin Detemir (Levemir Vial) 18 units SQ HS [facility] Insulin Detemir (Levemir Vial) 20 units SQ ACBK [facility] Ketorolac Tromethamine (Toradol Injection -) 30 mg IVPUSH NOW ONE Stop: 09/22/16 14:44 Last Admin: 09/17/16 17:27 Dose: Not Given Metoprolol Succinate (Toprol Xl -) 12.5 mg PO DAILY [facility] Ondansetron HCl (Zofran Injection) 4 mg IVPUSH Q6H PRN PRN Reason: NAUSEA AND/OR VOMITING Stop: 09/18/16 15:11 Pantoprazole Sodium (Protonix -) 40 mg PO DAILY [facility] Senna (Senna -) 2 tab PO HS PRN PRN Reason: CONSTIPATION - Objective Vital Signs: Vital Signs Temperature 98.7 F 09/18/16 11:14 Pulse Rate 40 L 09/18/16 11:14 Respiratory Rate 14 09/18/16 11:14 Blood Pressure 127/42 09/18/16 11:14 O2 Sat by Pulse Oximetry (%) 96 09/17/16 21:00 Constitutional: Yes: Well Nourished, Anxious Eyes: Yes: WNL HENT: Yes: WNL Cardiovascular: Yes: WNL Respiratory: Yes: WNL, Regular, CTA Bilaterally Gastrointestinal: Yes: WNL Labs: CBC, BMP 09/18/16 06:30 09/18/16 06:30 INR, PTT INR 1.20 (0.82-1.09) H 09/17/16 12:22 Problem List - Problems (1) Dialysis AV fistula infection Code(s): T82.7XXA - INFECT/INFLM REACT D/T OTH CARDI/VASC DEV/IMPLNT/GRFT, INIT Qualifiers: Encounter type: initial encounter Qualified Code(s): T82.7XXA - Infection and inflammatory reaction due to other cardiac and vascular devices, implants and grafts, initial encounter (2) ESRD on hemodialysis Code(s): N18.6 - END STAGE RENAL DISEASE Z99.2 - DEPENDENCE ON RENAL DIALYSIS (3) Renal dialysis device, implant, or graft complication Code(s): T82.9XXA - UNSP COMP OF CARDIAC AND VASCULAR PROSTH DEV/GRFT, INIT Qualifiers: Encounter type: subsequent encounter Qualified Code(s): T82.9XXD - Unspecified complication of cardiac and vascular prosthetic device, implant and graft, subsequent encounter (4) Anemia in ESRD (end-stage renal disease) Code(s): N18.6 - END STAGE RENAL DISEASE D63.1 - ANEMIA IN CHRONIC KIDNEY DISEASE (5) Diabetes Code(s): E11.9 - TYPE 2 DIABETES MELLITUS WITHOUT COMPLICATIONS Qualifiers: Diabetes mellitus type: type 1 Diabetes mellitus complication status: with circulatory complication Diabetes mellitus complication detail: with other circulatory complications Qualified Code(s): E10.59 - Type 1 diabetes mellitus with other circulatory complications (6) Fever Code(s): R50.9 - FEVER, UNSPECIFIED (7) Foot amputation status Code(s): Z89.439 - ACQUIRED ABSENCE OF UNSPECIFIED FOOT Qualifiers: Laterality: right Qualified Code(s): Z89.431 - Acquired absence of right foot (8) Hyperkalemia, diminished renal excretion Code(s): E87.5 - HYPERKALEMIA (9) Unilateral AKA Code(s): Z89.619 - ACQUIRED ABSENCE OF UNSPECIFIED LEG ABOVE KNEE Qualifiers: Laterality: right Qualified Code(s): Z89.611 - Acquired absence of right leg above knee Assessment/Plan Patient with ESRD, on Hemodialysis, had placement of a Hemodialysis catheter today. Orders for HD written and reviewed with the RN. Has possible pneumonia. Will give Abx during HD Layla Evans MD
--- NOTE | 2016-09-18 13:19 | PN ---
Progress Note (short form) - Note Progress Note: s/p removal of av fistula and placement of permacath Comfortable Pain ok. Family at bedside Vital Signs Temp 98.0 F 09/18/16 12:15 Pulse 44 L 09/18/16 12:45 Resp 20 09/18/16 12:45 BP 146/76 09/18/16 12:45 Pulse Ox 96 09/18/16 12:45 Intake & Output 09/17/16 09/18/16 09/18/16 23:59 11:59 23:59 Intake Total 390 200 Output Total 31 0 Balance 390 169 0 Weight 213 lb 6.4 oz Intake: IV 0 200 saline lock 0 0 IVPB 150 0 Oral 240 Output: Urine 1 0 Void 1 Estimated Blood Loss 30 Other: Voiding Method Diaper Diaper Height 5 ft 4 in Body Mass Index (BMI) 36.6 Weight Measurement Method [facility] Active Medications Acetaminophen/Codeine Phosphate (Tylenol # 3 -) 1 tab PO Q4H PRN PRN Reason: FEVER OR PAIN Albuterol Sulfate (Ventolin 0.083% Nebulizer Soln -) 1 amp NEB Q4H PRN PRN Reason: SHORT OF BREATH/WHEEZING Alprazolam (Xanax -) 0.25 mg PO BID [facility] Calcium Acetate (Phoslo -) 667 mg PO TIDCM [facility] Last Admin: 09/18/16 13:08 Dose: 667 mg Clopidogrel Bisulfate (Plavix -) 75 mg PO DAILY [facility] Cyanocobalamin (Vitamin B12 -) 100 mcg PO DAILY [facility] Docusate Sodium (Colace -) 100 mg PO TID [facility] Fentanyl (Sublimaze Injection -) 25 mcg IVPUSH [id number] PRN PRN Reason: PAIN Stop: 09/21/16 09:11 Heparin Sodium (Porcine) (Heparin -) 5,000 unit SQ BID [facility] Hydromorphone HCl (Dilaudid Injection -) 0.5 mg IVPUSH Q6H PRN PRN Reason: PAIN Vancomycin HCl (Vancomycin (Pre-Docked)) 250 mls @ 150 mls/hr IVPB ONCE ONE Stop: 09/18/16 14:24 Cefepime HCl 0.5 gm/ Dextrose 50 mls @ 100 mls/hr IVPB DAILY [facility] Insulin Aspart (Novolog Vial Sliding Scale -) 1 vial SQ ACHS [facility] PRN Reason: Protocol Insulin Detemir (Levemir Vial) 18 units SQ HS [facility] Insulin Detemir (Levemir Vial) 20 units SQ ACBK [facility] Ketorolac Tromethamine (Toradol Injection -) 30 mg IVPUSH NOW ONE Stop: 09/22/16 14:44 Last Admin: 09/17/16 17:27 Dose: Not Given Metoprolol Succinate (Toprol Xl -) 12.5 mg PO DAILY [facility] Ondansetron HCl (Zofran Injection) 4 mg IVPUSH Q6H PRN PRN Reason: NAUSEA AND/OR VOMITING Stop: 09/18/16 15:11 Pantoprazole Sodium (Protonix -) 40 mg PO DAILY [facility] Senna (Senna -) 2 tab PO HS PRN PRN Reason: CONSTIPATION CBC, BMP 09/18/16 06:30 09/18/16 06:30 cxr - post op - Infiltrate vs atelectasis Physical Examination Constitutional: Yes: No Distress/ comfortable Eyes: Yes: Conjunctiva Clear Neck: Yes: Supple Cardiovascular: Yes: Regular Rate and Rhythm Respiratory: Yes: Diminished (at bases) Gastrointestinal: Yes: Soft Breast(s): Yes: Skin Changes (skin excoriation - left breast -) Extremities: Yes: Amputation Neurological: Yes: Alert Imaging - Results Chest X-ray: Pending EKG: Pending, Report Reviewed Problem List - Problems (1) Dialysis AV fistula infection Code(s): T82.7XXA - INFECT/INFLM REACT D/T OTH CARDI/VASC DEV/IMPLNT/GRFT, INIT Qualifiers: Encounter type: initial encounter Qualified Code(s): T82.7XXA - Infection and inflammatory reaction due to other cardiac and vascular devices, implants and grafts, initial encounter (2) ESRD on hemodialysis Code(s): N18.6 - END STAGE RENAL DISEASE Z99.2 - DEPENDENCE ON RENAL DIALYSIS (3) Anemia in ESRD (end-stage renal disease) Code(s): N18.6 - END STAGE RENAL DISEASE D63.1 - ANEMIA IN CHRONIC KIDNEY DISEASE (4) Diabetes Code(s): E11.9 - TYPE 2 DIABETES MELLITUS WITHOUT COMPLICATIONS Qualifiers: Diabetes mellitus type: type 1 Diabetes mellitus complication status: with circulatory complication Diabetes mellitus complication detail: with other circulatory complications Qualified Code(s): E10.59 - Type 1 diabetes mellitus with other circulatory complications (5) Foot amputation status Code(s): Z89.439 - ACQUIRED ABSENCE OF UNSPECIFIED FOOT Qualifiers: Laterality: right Qualified Code(s): Z89.431 - Acquired absence of right foot (6) Hypothyroidism Code(s): E03.9 - HYPOTHYROIDISM, UNSPECIFIED Assessment/Plan s/p removal of av fistula and placement of permacath Possible Pneumonia Breast inflamation vs mass -- u/s pending Abx Dialysis today Monitor bgm. will follow. Discussed with family. Problem List - Problems (1) Dialysis AV fistula infection Code(s): T82.7XXA - INFECT/INFLM REACT D/T OTH CARDI/VASC DEV/IMPLNT/GRFT, INIT Qualifiers: Encounter type: initial encounter Qualified Code(s): T82.7XXA - Infection and inflammatory reaction due to other cardiac and vascular devices, implants and grafts, initial encounter (2) ESRD on hemodialysis Code(s): N18.6 - END STAGE RENAL DISEASE Z99.2 - DEPENDENCE ON RENAL DIALYSIS (3) Anemia in ESRD (end-stage renal disease) Code(s): N18.6 - END STAGE RENAL DISEASE D63.1 - ANEMIA IN CHRONIC KIDNEY DISEASE (4) Diabetes Code(s): E11.9 - TYPE 2 DIABETES MELLITUS WITHOUT COMPLICATIONS Qualifiers: Diabetes mellitus type: type 1 Diabetes mellitus complication status: with circulatory complication Diabetes mellitus complication detail: with other circulatory complications Qualified Code(s): E10.59 - Type 1 diabetes mellitus with other circulatory complications (5) Foot amputation status Code(s): Z89.439 - ACQUIRED ABSENCE OF UNSPECIFIED FOOT Qualifiers: Laterality: right Qualified Code(s): Z89.431 - Acquired absence of right foot (6) Hypothyroidism Code(s): E03.9 - HYPOTHYROIDISM, UNSPECIFIED
--- NOTE | 2016-09-18 14:16 | PN ---
Progress Note, Physician History of Present Illness: RUE discomfort improved after removal of RUE infected graft and wound debridement, tolerating HD via permacath. - Current Medication List Current Medications: Active Medications Acetaminophen/Codeine Phosphate (Tylenol # 3 -) 1 tab PO Q4H PRN PRN Reason: FEVER OR PAIN Albuterol Sulfate (Ventolin 0.083% Nebulizer Soln -) 1 amp NEB Q4H PRN PRN Reason: SHORT OF BREATH/WHEEZING Alprazolam (Xanax -) 0.25 mg PO BID [facility] Calcium Acetate (Phoslo -) 667 mg PO TIDCM [facility] Last Admin: 09/18/16 13:08 Dose: 667 mg Clopidogrel Bisulfate (Plavix -) 75 mg PO DAILY [facility] Cyanocobalamin (Vitamin B12 -) 100 mcg PO DAILY [facility] Docusate Sodium (Colace -) 100 mg PO TID [facility] Fentanyl (Sublimaze Injection -) 25 mcg IVPUSH [id number] PRN PRN Reason: PAIN Stop: 09/21/16 09:11 Heparin Sodium (Porcine) (Heparin -) 5,000 unit SQ BID [facility] Hydromorphone HCl (Dilaudid Injection -) 0.5 mg IVPUSH Q6H PRN PRN Reason: PAIN Vancomycin HCl (Vancomycin (Pre-Docked)) 250 mls @ 150 mls/hr IVPB ONCE ONE Stop: 09/18/16 14:24 Cefepime HCl 0.5 gm/ Dextrose 50 mls @ 100 mls/hr IVPB DAILY [facility] Insulin Aspart (Novolog Vial Sliding Scale -) 1 vial SQ ACHS [facility] PRN Reason: Protocol Insulin Detemir (Levemir Vial) 18 units SQ HS [facility] Insulin Detemir (Levemir Vial) 20 units SQ ACBK [facility] Ketorolac Tromethamine (Toradol Injection -) 30 mg IVPUSH NOW ONE Stop: 09/22/16 14:44 Last Admin: 09/17/16 17:27 Dose: Not Given Metoprolol Succinate (Toprol Xl -) 12.5 mg PO DAILY [facility] Ondansetron HCl (Zofran Injection) 4 mg IVPUSH Q6H PRN PRN Reason: NAUSEA AND/OR VOMITING Stop: 09/18/16 15:11 Pantoprazole Sodium (Protonix -) 40 mg PO DAILY [facility] Senna (Senna -) 2 tab PO HS PRN PRN Reason: CONSTIPATION - Objective Vital Signs: Vital Signs Temperature 97.9 F 09/18/16 13:15 Pulse Rate 47 L 09/18/16 13:50 Respiratory Rate 18 09/18/16 13:50 Blood Pressure 142/48 09/18/16 13:50 O2 Sat by Pulse Oximetry (%) 96 09/18/16 12:45 Constitutional: Yes: No Distress, Calm Neck: Yes: Supple Cardiovascular: Yes: Regular Rate and Rhythm Respiratory: Yes: Regular, Diminished Gastrointestinal: Yes: Normal Bowel Sounds, Soft Extremities: Yes: Amputation Edema: No Labs: CBC, BMP 09/18/16 06:30 09/18/16 06:30 INR, PTT INR 1.20 (0.82-1.09) H 09/17/16 12:22 - ....Imaging X-ray: Report Reviewed (No PTX post PC placement) Problem List - Problems (1) Dialysis AV fistula infection Code(s): T82.7XXA - INFECT/INFLM REACT D/T OTH CARDI/VASC DEV/IMPLNT/GRFT, INIT Qualifiers: Encounter type: initial encounter Qualified Code(s): T82.7XXA - Infection and inflammatory reaction due to other cardiac and vascular devices, implants and grafts, initial encounter (2) ESRD on hemodialysis Code(s): N18.6 - END STAGE RENAL DISEASE Z99.2 - DEPENDENCE ON RENAL DIALYSIS (3) Renal dialysis device, implant, or graft complication Code(s): T82.9XXA - UNSP COMP OF CARDIAC AND VASCULAR PROSTH DEV/GRFT, INIT Qualifiers: Encounter type: subsequent encounter Qualified Code(s): T82.9XXD - Unspecified complication of cardiac and vascular prosthetic device, implant and graft, subsequent encounter (4) Diabetes Code(s): E11.9 - TYPE 2 DIABETES MELLITUS WITHOUT COMPLICATIONS Qualifiers: Diabetes mellitus type: type 1 Diabetes mellitus complication status: with circulatory complication Diabetes mellitus complication detail: with other circulatory complications Qualified Code(s): E10.59 - Type 1 diabetes mellitus with other circulatory complications (5) S/P transmetatarsal amputation of foot Code(s): Z89.439 - ACQUIRED ABSENCE OF UNSPECIFIED FOOT Qualifiers: Laterality: left Qualified Code(s): Z89.432 - Acquired absence of left foot (6) Steal syndrome dialysis vascular access Code(s): T82.898A - [facility] COMPLICATION OF VASCULAR PROSTH DEV/GRFT, INIT Qualifiers: Encounter type: subsequent encounter Qualified Code(s): T82.898D - Other specified complication of vascular prosthetic devices, implants and grafts , subsequent encounter (7) Anemia Code(s): D64.9 - ANEMIA, UNSPECIFIED Qualifiers: Other causes of anemia: chronic disease, kidney Assessment/Plan 1. Infected RUE HeRO post removal, wound debridement, PC placement 2. PAD s/p right BKA, left TMA 3. CAD s/p multivessel PCI (stent), angina pectoris 4. LV diastolic dysfunction 5. ESRD on HD 6. Type 2 DM 7. Hyperlipidemia 8. HTN/HCVD 9. Hypothyroidism with abnormal TSH 10. Anemia of chronic kidney disease PLAN: 1. Continue Toprol XL 12.5 qd, resume Aspirin and Clopidogrel once post-op hemostasis achieved 2. HD per renal, complete abx course 3. Check FT4 4. DVT and GI prophylaxis
[2016-09-18] MEDS: HYDROmorphone HCL CARPU-JECT 1 MG/1 ML DISP.SYRIN IVPUSH PRN (17:33)
[2016-09-18] MEDS: HEPARIN NA (PORCINE) 5,000 UNITS/ML 1ML VIAL SQ SCH ×2 (17:48→21:39)
[2016-09-18] MEDS: CEFEPIME 0.5 GM in DEXTROSE 5%-WATER - 50 ML IVPB SCH ×2 (17:49→18:08)
[2016-09-18] MEDS ORDERED: INSULIN (NOVOLOG) ASPART 100 UNITS/ML 10ML VIAL ONE ×3 (18:19→21:37)
[2016-09-18] MEDS: ACETAMINOPHEN WITH CODEINE 300MG/30MG TABLET PO PRN (20:42)
[2016-09-18] MEDS: ALPRAZolam 0.25 MG TABLET PO SCH (21:39)
[2016-09-18] MEDS: INSULIN DETEMIR 100 UNITS/ML MDV SQ SCH (21:40)
[2016-09-19] MEDS: HYDROmorphone HCL CARPU-JECT 1 MG/1 ML DISP.SYRIN IVPUSH PRN (01:33)
[2016-09-19] MEDS: DOCUSATE SODIUM 100 MG CAPSULE (FP) PO SCH ×3 (06:27→21:37)
[2016-09-19] MEDS: ACETAMINOPHEN WITH CODEINE 300MG/30MG TABLET PO PRN ×2 (06:27→11:40)
[2016-09-19] MEDS: INSULIN SLIDING SCALE (NOVOLOG) 1 VIAL SQ SCH ×4 (06:33→21:38)
[2016-09-19] MEDS: INSULIN DETEMIR 100 UNITS/ML MDV SQ SCH ×2 (06:34→21:38)
[2016-09-19] MEDS ORDERED: INSULIN (NOVOLOG) ASPART 100 UNITS/ML 10ML VIAL ONE ×3 (06:58→21:35)
[2016-09-19 07:20] LABS: MCH 28.5 pg (25.7-33.7); MCHC 32.1 g/dl (32.0-36.0); MEAN CELL VOLUME 88.8 fl (80-96); MEAN PLT VOLUME 7.9 fl (7.5-11.1); PLATELET COUNT 387 K/MM3 (134-434); RDW 16.2 % (11.6-15.6); WHITE BLOOD COUNT 10.5 K/mm3 (4.0-10.0)
--- NOTE | 2016-09-19 09:26 | PN ---
Progress Note (short form) - Note Progress Note: ANESTHESIA POST-OP CHECK 71F s/p removal of HeRO graft , wound debridement and permacath placement under MAC/sedation anesthesia POD #1. No acute complaints. Pain 7/10 and tolerable. Currently denies N/V. Underwent HD yesterday after procedure. Vital Signs Temperature 99 F 09/19/16 06:00 Pulse Rate 59 L 09/19/16 06:00 Respiratory Rate 20 09/19/16 06:00 Blood Pressure 121/98 09/19/16 06:00 O2 Sat by Pulse Oximetry (%) 97 09/18/16 21:00 Active Medications Acetaminophen/Codeine Phosphate (Tylenol # 3 -) 1 tab PO Q4H PRN PRN Reason: FEVER OR PAIN Last Admin: 09/19/16 06:27 Dose: 1 tab Albuterol Sulfate (Ventolin 0.083% Nebulizer Soln -) 1 amp NEB Q4H PRN PRN Reason: SHORT OF BREATH/WHEEZING Alprazolam (Xanax -) 0.25 mg PO BID [facility] Last Admin: 09/18/16 21:39 Dose: 0.25 mg Calcium Acetate (Phoslo -) 667 mg PO TIDCM [facility] Last Admin: 09/18/16 17:47 Dose: 667 mg Clopidogrel Bisulfate (Plavix -) 75 mg PO DAILY [facility] Cyanocobalamin (Vitamin B12 -) 100 mcg PO DAILY [facility] Docusate Sodium (Colace -) 100 mg PO TID [facility] Last Admin: 09/19/16 06:27 Dose: 100 mg Fentanyl (Sublimaze Injection -) 25 mcg IVPUSH [id number] PRN PRN Reason: PAIN Stop: 09/21/16 09:11 Heparin Sodium (Porcine) (Heparin -) 5,000 unit SQ BID [facility] Last Admin: 09/18/16 21:39 Dose: 5,000 unit Hydromorphone HCl (Dilaudid Injection -) 0.5 mg IVPUSH Q6H PRN PRN Reason: PAIN Last Admin: 09/19/16 01:33 Dose: 0.5 mg Cefepime HCl 0.5 gm/ Dextrose 50 mls @ 100 mls/hr IVPB DAILY [facility] Last Admin: 09/18/16 18:08 Dose: 100 mls/hr Insulin Aspart (Novolog Vial Sliding Scale -) 1 vial SQ ACHS [facility] PRN Reason: Protocol Last Admin: 09/19/16 06:33 Dose: Not Given Insulin Detemir (Levemir Vial) 18 units SQ HS [facility] Last Admin: 09/18/16 21:40 Dose: 18 units Insulin Detemir (Levemir Vial) 20 units SQ ACBK [facility] Last Admin: 09/19/16 06:34 Dose: Not Given Ketorolac Tromethamine (Toradol Injection -) 30 mg IVPUSH NOW ONE Stop: 09/22/16 14:44 Last Admin: 09/17/16 17:27 Dose: Not Given Metoprolol Succinate (Toprol Xl -) 12.5 mg PO DAILY [facility] Pantoprazole Sodium (Protonix -) 40 mg PO DAILY [facility] Senna (Senna -) 2 tab PO HS PRN PRN Reason: CONSTIPATION Gen: Awake, alert No apparent anesthesia complications. Pain well controlled, continue management as per primary team.
[2016-09-19] MEDS ORDERED: PT OWN MED DRAWER 7, Y5N ONE (09:46)
[2016-09-19] MEDS: CALCIUM ACETATE 667 MG CAPSULE (FP) PO SCH ×3 (09:48→17:34)
[2016-09-19] MEDS: ALPRAZolam 0.25 MG TABLET PO SCH ×2 (09:49→21:39)
[2016-09-19] MEDS: HEPARIN NA (PORCINE) 5,000 UNITS/ML 1ML VIAL SQ SCH ×2 (09:49→21:37)
[2016-09-19] MEDS: PANTOPRAZOLE 40 MG TABLET (FP) PO SCH (09:50)
[2016-09-19] MEDS: CLOPIDOGREL BISULFATE 75 MG TABLET (FP) PO SCH (09:50)
[2016-09-19] MEDS: CYANOCOBALAMIN (VITAMIN B-12) 100 MCG TABLET PO SCH (09:50)
[2016-09-19] MEDS: METOPROLOL SUCCINATE 25 MG TAB.SR.24H (FP) PO SCH ×2 (09:51→12:33)
[2016-09-19] MEDS ORDERED: CEFEPIME 0.5 GM in DEXTROSE 5%-WATER - 50 ML IVPB SCH (10:00)
--- NOTE | 2016-09-19 11:10 | PN ---
Progress Note (short form) - Note Progress Note: s/p removal of av fistula and placement of permacath. pod # 1 Comfortable Pain ok. Denies cp/ sob No cough. Had dialysis yesterday Vital Signs Temp 98.6 F 09/19/16 11:05 Pulse 60 09/19/16 09:42 Resp 20 09/19/16 09:42 BP 147/51 09/19/16 09:42 Pulse Ox 97 09/18/16 21:00 Intake & Output 09/18/16 09/18/16 09/19/16 11:59 23:59 11:59 Intake Total 200 610 150 Output Total 30 0 Balance 170 610 150 Intake: IV 200 saline lock 0 IVPB 0 150 50 Oral 460 100 Output: Urine 0 Estimated Blood Loss 30 Other: Voiding Method Diaper Incontinent Diaper Bowel Movement No Active Medications Acetaminophen/Codeine Phosphate (Tylenol # 3 -) 1 tab PO Q4H PRN PRN Reason: FEVER OR PAIN Albuterol Sulfate (Ventolin 0.083% Nebulizer Soln -) 1 amp NEB Q4H PRN PRN Reason: SHORT OF BREATH/WHEEZING Alprazolam (Xanax -) 0.25 mg PO BID [facility] Calcium Acetate (Phoslo -) 667 mg PO TIDCM [facility] Last Admin: 09/18/16 13:08 Dose: 667 mg Clopidogrel Bisulfate (Plavix -) 75 mg PO DAILY [facility] Cyanocobalamin (Vitamin B12 -) 100 mcg PO DAILY [facility] Docusate Sodium (Colace -) 100 mg PO TID [facility] Fentanyl (Sublimaze Injection -) 25 mcg IVPUSH [id number] PRN PRN Reason: PAIN Stop: 09/21/16 09:11 Heparin Sodium (Porcine) (Heparin -) 5,000 unit SQ BID [facility] Hydromorphone HCl (Dilaudid Injection -) 0.5 mg IVPUSH Q6H PRN PRN Reason: PAIN Vancomycin HCl (Vancomycin (Pre-Docked)) 250 mls @ 150 mls/hr IVPB ONCE ONE Stop: 09/18/16 14:24 Cefepime HCl 0.5 gm/ Dextrose 50 mls @ 100 mls/hr IVPB DAILY [facility] Insulin Aspart (Novolog Vial Sliding Scale -) 1 vial SQ ACHS [facility] PRN Reason: Protocol Insulin Detemir (Levemir Vial) 18 units SQ HS [facility] Insulin Detemir (Levemir Vial) 20 units SQ ACBK [facility] Ketorolac Tromethamine (Toradol Injection -) 30 mg IVPUSH NOW ONE Stop: 09/22/16 14:44 Last Admin: 09/17/16 17:27 Dose: Not Given Metoprolol Succinate (Toprol Xl -) 12.5 mg PO DAILY [facility] Ondansetron HCl (Zofran Injection) 4 mg IVPUSH Q6H PRN PRN Reason: NAUSEA AND/OR VOMITING Stop: 09/18/16 15:11 Pantoprazole Sodium (Protonix -) 40 mg PO DAILY [facility] Senna (Senna -) 2 tab PO HS PRN PRN Reason: CONSTIPATION CBC, BMP 09/19/16 06:00 09/18/16 06:30 cxr - post op - Infiltrate vs atelectasis Physical Examination Constitutional: Yes: No Distress/ comfortable Eyes: Yes: Conjunctiva Clear Neck: Yes: Supple Cardiovascular: Yes: Regular Rate and Rhythm Respiratory: Yes: Diminished (at bases) Gastrointestinal: Yes: Soft Breast(s): Yes: Skin Changes (skin excoriation - left breast -) Extremities: Yes: Amputation Neurological: Yes: Alert Imaging - Results Chest X-ray: Pending EKG: Pending, Report Reviewed Problem List - Problems (1) Dialysis AV fistula infection Code(s): T82.7XXA - INFECT/INFLM REACT D/T OTH CARDI/VASC DEV/IMPLNT/GRFT, INIT Qualifiers: Encounter type: initial encounter Qualified Code(s): T82.7XXA - Infection and inflammatory reaction due to other cardiac and vascular devices, implants and grafts, initial encounter (2) ESRD on hemodialysis Code(s): N18.6 - END STAGE RENAL DISEASE Z99.2 - DEPENDENCE ON RENAL DIALYSIS (3) Anemia in ESRD (end-stage renal disease) Code(s): N18.6 - END STAGE RENAL DISEASE D63.1 - ANEMIA IN CHRONIC KIDNEY DISEASE (4) Diabetes Code(s): E11.9 - TYPE 2 DIABETES MELLITUS WITHOUT COMPLICATIONS Qualifiers: Diabetes mellitus type: type 1 Diabetes mellitus complication status: with circulatory complication Diabetes mellitus complication detail: with other circulatory complications Qualified Code(s): E10.59 - Type 1 diabetes mellitus with other circulatory complications (5) Foot amputation status Code(s): Z89.439 - ACQUIRED ABSENCE OF UNSPECIFIED FOOT Qualifiers: Laterality: right Qualified Code(s): Z89.431 - Acquired absence of right foot (6) Hypothyroidism Code(s): E03.9 - HYPOTHYROIDISM, UNSPECIFIED Assessment/Plan s/p removal of av fistula and placement of permacath Pneumonia ? Breast inflamation vs mass -- u/s pending Abx Dialysis per renal Monitor bgm. pain control will follow. Problem List - Problems (1) Dialysis AV fistula infection Code(s): T82.7XXA - INFECT/INFLM REACT D/T OTH CARDI/VASC DEV/IMPLNT/GRFT, INIT Qualifiers: Encounter type: initial encounter Qualified Code(s): T82.7XXA - Infection and inflammatory reaction due to other cardiac and vascular devices, implants and grafts, initial encounter (2) ESRD on hemodialysis Code(s): N18.6 - END STAGE RENAL DISEASE Z99.2 - DEPENDENCE ON RENAL DIALYSIS (3) Anemia in ESRD (end-stage renal disease) Code(s): N18.6 - END STAGE RENAL DISEASE D63.1 - ANEMIA IN CHRONIC KIDNEY DISEASE (4) Diabetes Code(s): E11.9 - TYPE 2 DIABETES MELLITUS WITHOUT COMPLICATIONS Qualifiers: Diabetes mellitus type: type 1 Diabetes mellitus complication status: with circulatory complication Diabetes mellitus complication detail: with other circulatory complications Qualified Code(s): E10.59 - Type 1 diabetes mellitus with other circulatory complications (5) Foot amputation status Code(s): Z89.439 - ACQUIRED ABSENCE OF UNSPECIFIED FOOT Qualifiers: Laterality: right Qualified Code(s): Z89.431 - Acquired absence of right foot (6) Hypothyroidism Code(s): E03.9 - HYPOTHYROIDISM, UNSPECIFIED
[2016-09-19] MEDS: CEFEPIME 0.5 GM in DEXTROSE 5%-WATER - 50 ML IVPB SCH ×2 (11:37→14:59)
--- NOTE | 2016-09-19 15:40 | PN ---
Progress Note, Physician History of Present Illness: RUE discomfort improved after removal of RUE infected graft and wound debridement, tolerated HD via permacath yesterday. Denies chest pain or dyspnea. - Current Medication List Current Medications: Active Medications Acetaminophen/Codeine Phosphate (Tylenol # 3 -) 1 tab PO Q4H PRN PRN Reason: FEVER OR PAIN Last Admin: 09/19/16 11:40 Dose: 1 tab Albuterol Sulfate (Ventolin 0.083% Nebulizer Soln -) 1 amp NEB Q4H PRN PRN Reason: SHORT OF BREATH/WHEEZING Alprazolam (Xanax -) 0.25 mg PO BID [facility] Last Admin: 09/19/16 09:49 Dose: 0.25 mg Calcium Acetate (Phoslo -) 667 mg PO TIDCM [facility] Last Admin: 09/19/16 12:29 Dose: 667 mg Clopidogrel Bisulfate (Plavix -) 75 mg PO DAILY [facility] Last Admin: 09/19/16 09:50 Dose: 75 mg Cyanocobalamin (Vitamin B12 -) 100 mcg PO DAILY [facility] Last Admin: 09/19/16 09:50 Dose: 100 mcg Docusate Sodium (Colace -) 100 mg PO TID [facility] Last Admin: 09/19/16 14:59 Dose: 100 mg Fentanyl (Sublimaze Injection -) 25 mcg IVPUSH [id number] PRN PRN Reason: PAIN Stop: 09/21/16 09:11 Heparin Sodium (Porcine) (Heparin -) 5,000 unit SQ BID [facility] Last Admin: 09/19/16 09:49 Dose: 5,000 unit Hydromorphone HCl (Dilaudid Injection -) 0.5 mg IVPUSH Q6H PRN PRN Reason: PAIN Last Admin: 09/19/16 01:33 Dose: 0.5 mg Cefepime HCl 0.5 gm/ Dextrose 50 mls @ 100 mls/hr IVPB DAILY [facility] Last Admin: 09/19/16 14:59 Dose: 100 mls/hr Insulin Aspart (Novolog Vial Sliding Scale -) 1 vial SQ ACHS [facility] PRN Reason: Protocol Last Admin: 09/19/16 11:34 Dose: 5 units Insulin Detemir (Levemir Vial) 18 units SQ HS [facility] Last Admin: 09/18/16 21:40 Dose: 18 units Insulin Detemir (Levemir Vial) 20 units SQ ACBK [facility] Last Admin: 09/19/16 06:34 Dose: Not Given Ketorolac Tromethamine (Toradol Injection -) 30 mg IVPUSH NOW ONE Stop: 09/22/16 14:44 Last Admin: 09/17/16 17:27 Dose: Not Given Metoprolol Succinate (Toprol Xl -) 12.5 mg PO DAILY [facility] Last Admin: 09/19/16 12:33 Dose: 12.5 mg Pantoprazole Sodium (Protonix -) 40 mg PO DAILY [facility] Last Admin: 09/19/16 09:50 Dose: 40 mg Senna (Senna -) 2 tab PO HS PRN PRN Reason: CONSTIPATION - Objective Vital Signs: Vital Signs Temperature 98.5 F 09/19/16 14:49 Pulse Rate 54 L 09/19/16 14:49 Respiratory Rate 20 09/19/16 14:49 Blood Pressure 150/40 09/19/16 14:49 O2 Sat by Pulse Oximetry (%) 97 09/18/16 21:00 Constitutional: Yes: No Distress, Calm Neck: Yes: Supple Cardiovascular: Yes: Regular Rate and Rhythm Respiratory: Yes: Regular, Diminished Gastrointestinal: Yes: Normal Bowel Sounds, Soft Extremities: Yes: Amputation Edema: No Labs: CBC, BMP 09/19/16 06:00 09/18/16 06:30 INR, PTT INR 1.20 (0.82-1.09) H 09/17/16 12:22 Problem List - Problems (1) Dialysis AV fistula infection Code(s): T82.7XXA - INFECT/INFLM REACT D/T OTH CARDI/VASC DEV/IMPLNT/GRFT, INIT Qualifiers: Encounter type: initial encounter Qualified Code(s): T82.7XXA - Infection and inflammatory reaction due to other cardiac and vascular devices, implants and grafts, initial encounter (2) ESRD on hemodialysis Code(s): N18.6 - END STAGE RENAL DISEASE Z99.2 - DEPENDENCE ON RENAL DIALYSIS (3) Renal dialysis device, implant, or graft complication Code(s): T82.9XXA - UNSP COMP OF CARDIAC AND VASCULAR PROSTH DEV/GRFT, INIT Qualifiers: Encounter type: subsequent encounter Qualified Code(s): T82.9XXD - Unspecified complication of cardiac and vascular prosthetic device, implant and graft, subsequent encounter (4) Diabetes Code(s): E11.9 - TYPE 2 DIABETES MELLITUS WITHOUT COMPLICATIONS Qualifiers: Diabetes mellitus type: type 1 Diabetes mellitus complication status: with circulatory complication Diabetes mellitus complication detail: with other circulatory complications Qualified Code(s): E10.59 - Type 1 diabetes mellitus with other circulatory complications (5) S/P transmetatarsal amputation of foot Code(s): Z89.439 - ACQUIRED ABSENCE OF UNSPECIFIED FOOT Qualifiers: Laterality: left Qualified Code(s): Z89.432 - Acquired absence of left foot (6) Steal syndrome dialysis vascular access Code(s): T82.898A - [facility] COMPLICATION OF VASCULAR PROSTH DEV/GRFT, INIT Qualifiers: Encounter type: subsequent encounter Qualified Code(s): T82.898D - Other specified complication of vascular prosthetic devices, implants and grafts , subsequent encounter (7) Anemia Code(s): D64.9 - ANEMIA, UNSPECIFIED Qualifiers: Other causes of anemia: chronic disease, kidney Assessment/Plan 1. Infected RUE HeRO post removal, wound debridement, PC placement 2. PAD s/p right BKA, left TMA 3. CAD s/p multivessel PCI (stent), angina pectoris 4. LV diastolic dysfunction 5. ESRD on HD 6. Type 2 DM 7. Hyperlipidemia 8. HTN/HCVD 9. Hypothyroidism with abnormal TSH and normal FT4 10. Anemia of chronic kidney disease PLAN: 1. Continue Toprol XL 12.5 qd, resumed Clopidogrel 75 qd now that post-op hemostasis has been achieved 2. HD per renal, complete abx course 3. DVT and GI prophylaxis
--- NOTE | 2016-09-19 15:41 | PN ---
Progress Note, Physician Chief Complaint: Patient admitted with malfunctioning AV graft ( hero) Had removal of the same, and placement of a right IJ catheter for dialysis. had uneventful dialysis yesterday. Has bloody oozing from the arm wound. Family visiting. No chest pain. has some left sided shoulder pain. Permacath in place. - Current Medication List Current Medications: Active Medications Acetaminophen/Codeine Phosphate (Tylenol # 3 -) 1 tab PO Q4H PRN PRN Reason: FEVER OR PAIN Last Admin: 09/19/16 11:40 Dose: 1 tab Albuterol Sulfate (Ventolin 0.083% Nebulizer Soln -) 1 amp NEB Q4H PRN PRN Reason: SHORT OF BREATH/WHEEZING Alprazolam (Xanax -) 0.25 mg PO BID [facility] Last Admin: 09/19/16 09:49 Dose: 0.25 mg Calcium Acetate (Phoslo -) 667 mg PO TIDCM [facility] Last Admin: 09/19/16 12:29 Dose: 667 mg Clopidogrel Bisulfate (Plavix -) 75 mg PO DAILY [facility] Last Admin: 09/19/16 09:50 Dose: 75 mg Cyanocobalamin (Vitamin B12 -) 100 mcg PO DAILY [facility] Last Admin: 09/19/16 09:50 Dose: 100 mcg Docusate Sodium (Colace -) 100 mg PO TID [facility] Last Admin: 09/19/16 14:59 Dose: 100 mg Fentanyl (Sublimaze Injection -) 25 mcg IVPUSH [id number] PRN PRN Reason: PAIN Stop: 09/21/16 09:11 Heparin Sodium (Porcine) (Heparin -) 5,000 unit SQ BID [facility] Last Admin: 09/19/16 09:49 Dose: 5,000 unit Hydromorphone HCl (Dilaudid Injection -) 0.5 mg IVPUSH Q6H PRN PRN Reason: PAIN Last Admin: 09/19/16 01:33 Dose: 0.5 mg Cefepime HCl 0.5 gm/ Dextrose 50 mls @ 100 mls/hr IVPB DAILY [facility] Last Admin: 09/19/16 14:59 Dose: 100 mls/hr Insulin Aspart (Novolog Vial Sliding Scale -) 1 vial SQ ACHS [facility] PRN Reason: Protocol Last Admin: 09/19/16 11:34 Dose: 5 units Insulin Detemir (Levemir Vial) 18 units SQ HS [facility] Last Admin: 09/18/16 21:40 Dose: 18 units Insulin Detemir (Levemir Vial) 20 units SQ ACBK [facility] Last Admin: 09/19/16 06:34 Dose: Not Given Ketorolac Tromethamine (Toradol Injection -) 30 mg IVPUSH NOW ONE Stop: 09/22/16 14:44 Last Admin: 09/17/16 17:27 Dose: Not Given Metoprolol Succinate (Toprol Xl -) 12.5 mg PO DAILY [facility] Last Admin: 09/19/16 12:33 Dose: 12.5 mg Pantoprazole Sodium (Protonix -) 40 mg PO DAILY [facility] Last Admin: 09/19/16 09:50 Dose: 40 mg Senna (Senna -) 2 tab PO HS PRN PRN Reason: CONSTIPATION - Objective Vital Signs: Vital Signs Temperature 98.5 F 09/19/16 14:49 Pulse Rate 54 L 09/19/16 14:49 Respiratory Rate 20 09/19/16 14:49 Blood Pressure 150/40 09/19/16 14:49 O2 Sat by Pulse Oximetry (%) 97 09/18/16 21:00 Constitutional: Yes: Well Nourished, Mild Distress Eyes: Yes: WNL Neck: Yes: WNL Cardiovascular: Yes: Regular Rate and Rhythm Respiratory: Yes: Regular, CTA Bilaterally Gastrointestinal: Yes: WNL, Normal Bowel Sounds, Abdomen, Obese Musculoskeletal: Yes: Joint Stiffness, Muscle Pain Peripheral Pulses WNL: No Labs: CBC, BMP 09/19/16 06:00 09/18/16 06:30 INR, PTT INR 1.20 (0.82-1.09) H 09/17/16 12:22 Problem List - Problems (1) Dialysis AV fistula infection Code(s): T82.7XXA - INFECT/INFLM REACT D/T OTH CARDI/VASC DEV/IMPLNT/GRFT, INIT Qualifiers: Encounter type: initial encounter Qualified Code(s): T82.7XXA - Infection and inflammatory reaction due to other cardiac and vascular devices, implants and grafts, initial encounter (2) ESRD on hemodialysis Code(s): N18.6 - END STAGE RENAL DISEASE Z99.2 - DEPENDENCE ON RENAL DIALYSIS (3) Renal dialysis device, implant, or graft complication Code(s): T82.9XXA - UNSP COMP OF CARDIAC AND VASCULAR PROSTH DEV/GRFT, INIT Qualifiers: Encounter type: subsequent encounter Qualified Code(s): T82.9XXD - Unspecified complication of cardiac and vascular prosthetic device, implant and graft, subsequent encounter (4) Anemia in ESRD (end-stage renal disease) Code(s): N18.6 - END STAGE RENAL DISEASE D63.1 - ANEMIA IN CHRONIC KIDNEY DISEASE (5) Diabetes Code(s): E11.9 - TYPE 2 DIABETES MELLITUS WITHOUT COMPLICATIONS Qualifiers: Diabetes mellitus type: type 1 Diabetes mellitus complication status: with circulatory complication Diabetes mellitus complication detail: with other circulatory complications Qualified Code(s): E10.59 - Type 1 diabetes mellitus with other circulatory complications (6) Fever Code(s): R50.9 - FEVER, UNSPECIFIED (7) Foot amputation status Code(s): Z89.439 - ACQUIRED ABSENCE OF UNSPECIFIED FOOT Qualifiers: Laterality: right Qualified Code(s): Z89.431 - Acquired absence of right foot (8) Hyperkalemia, diminished renal excretion Code(s): E87.5 - HYPERKALEMIA (9) Unilateral AKA Code(s): Z89.619 - ACQUIRED ABSENCE OF UNSPECIFIED LEG ABOVE KNEE Qualifiers: Laterality: right Qualified Code(s): Z89.611 - Acquired absence of right leg above knee Assessment/Plan Patient with ESRD, on Hemodialysis, had placement of a Hemodialysis catheter. Received Hemodialysis yesterday. Has possible pneumonia. On IV antibx. There is some bloody drainage from the surgical would on the arm. Will notify Dr. Hilton. Discussed with the RN. will follow with you. Next dialysis on Tuesday. Layla Evans MD
[2016-09-19] MEDS ORDERED: INSULIN DETEMIR 100 UNITS/ML MDV SQ ONE (21:35)
[2016-09-20] MEDS: INSULIN SLIDING SCALE (NOVOLOG) 1 VIAL SQ SCH ×4 (06:55→21:22)
[2016-09-20] MEDS: INSULIN DETEMIR 100 UNITS/ML MDV SQ SCH ×2 (06:55→21:09)
[2016-09-20] MEDS: DOCUSATE SODIUM 100 MG CAPSULE (FP) PO SCH ×3 (06:56→21:09)
[2016-09-20] MEDS: CALCIUM ACETATE 667 MG CAPSULE (FP) PO SCH ×3 (08:39→17:36)
[2016-09-20] MEDS: METOPROLOL SUCCINATE 25 MG TAB.SR.24H (FP) PO SCH (09:21)
[2016-09-20] MEDS: ALPRAZolam 0.25 MG TABLET PO SCH ×2 (09:21→21:09)
[2016-09-20] MEDS: CLOPIDOGREL BISULFATE 75 MG TABLET (FP) PO SCH (09:21)
[2016-09-20] MEDS: CYANOCOBALAMIN (VITAMIN B-12) 100 MCG TABLET PO SCH (09:21)
[2016-09-20] MEDS: HEPARIN NA (PORCINE) 5,000 UNITS/ML 1ML VIAL SQ SCH ×2 (09:21→21:09)
[2016-09-20] MEDS: PANTOPRAZOLE 40 MG TABLET (FP) PO SCH (09:21)
[2016-09-20] MEDS ORDERED: PT OWN MED DRAWER 7, Y5N ONE (09:53)
--- NOTE | 2016-09-20 10:07 | PN ---
Progress Note (short form) - Note Progress Note: SUBJECTIVE: Patient seen and examined. Comfortable. Dressing changed today. Pain under control. OBJECTIVE: Vital Signs - 8 hr 09/20/16 09/20/16 06:00 09:59 Temperature 98.8 F Pulse Rate 56 L 69 Respiratory 202 H Rate Blood Pressure 111/80 O2 Sat by Pulse 95 Oximetry (%) Intake & Output 09/19/16 09/20/16 09/20/16 23:59 07:59 15:59 Intake Total 840 100 Balance 840 100 Weight 96.071 kg Intake: Oral 840 100 Other: Voiding Method Diaper Bedpan Weight Measurement Method Patient Lift Scale Active Medications Acetaminophen/Codeine Phosphate (Tylenol # 3 -) 1 tab PO Q4H PRN PRN Reason: FEVER OR PAIN Last Admin: 09/19/16 11:40 Dose: 1 tab Albuterol Sulfate (Ventolin 0.083% Nebulizer Soln -) 1 amp NEB Q4H PRN PRN Reason: SHORT OF BREATH/WHEEZING Alprazolam (Xanax -) 0.25 mg PO BID [facility] Last Admin: 09/20/16 09:21 Dose: 0.25 mg Calcium Acetate (Phoslo -) 667 mg PO TIDCM [facility] Last Admin: 09/20/16 08:39 Dose: 667 mg Clopidogrel Bisulfate (Plavix -) 75 mg PO DAILY [facility] Last Admin: 09/20/16 09:21 Dose: 75 mg Cyanocobalamin (Vitamin B12 -) 100 mcg PO DAILY [facility] Last Admin: 09/20/16 09:21 Dose: 100 mcg Docusate Sodium (Colace -) 100 mg PO TID [facility] Last Admin: 09/20/16 06:56 Dose: 100 mg Fentanyl (Sublimaze Injection -) 25 mcg IVPUSH [id number] PRN PRN Reason: PAIN Stop: 09/21/16 09:11 Heparin Sodium (Porcine) (Heparin -) 5,000 unit SQ BID [facility] Last Admin: 09/20/16 09:21 Dose: 5,000 unit Hydromorphone HCl (Dilaudid Injection -) 0.5 mg IVPUSH Q6H PRN PRN Reason: PAIN Last Admin: 09/19/16 01:33 Dose: 0.5 mg Cefepime HCl 0.5 gm/ Dextrose 50 mls @ 100 mls/hr IVPB DAILY [facility] Last Admin: 09/19/16 14:59 Dose: 100 mls/hr Insulin Aspart (Novolog Vial Sliding Scale -) 1 vial SQ ACHS [facility] PRN Reason: Protocol Last Admin: 09/20/16 06:55 Dose: Not Given Insulin Detemir (Levemir Vial) 18 units SQ HS [facility] Last Admin: 09/19/16 21:38 Dose: 18 units Insulin Detemir (Levemir Vial) 20 units SQ ACBK [facility] Last Admin: 09/20/16 06:55 Dose: Not Given Ketorolac Tromethamine (Toradol Injection -) 30 mg IVPUSH NOW ONE Stop: 09/22/16 14:44 Last Admin: 09/17/16 17:27 Dose: Not Given Metoprolol Succinate (Toprol Xl -) 12.5 mg PO DAILY [facility] Last Admin: 09/20/16 09:21 Dose: Not Given Pantoprazole Sodium (Protonix -) 40 mg PO DAILY [facility] Last Admin: 09/20/16 09:21 Dose: 40 mg Senna (Senna -) 2 tab PO HS PRN PRN Reason: CONSTIPATION CBC, BMP 09/19/16 06:00 09/18/16 06:30 Laboratory Results - last 24 hr 09/19/16 09/19/16 09/19/16 11:29 17:28 21:27 POC Glucometer 234 141 191 09/20/16 06:38 POC Glucometer 80 Microbiology 09/18/16 11:40 Wound Culture - Preliminary Arm - Right Upper Escherichia Coli 09/17/16 15:30 Gram Stain - Final Wound Wound Culture - Preliminary Escherichia Coli 09/17/16 12:22 Blood Culture - Preliminary Blood - Peripheral Venous NO GROWTH OBTAINED AFTER 48 HOURS, INCUBATION TO CONTINUE FOR 3 DAYS. 09/17/16 12:22 Blood Culture - Preliminary Blood - Peripheral Venous NO GROWTH OBTAINED AFTER 48 HOURS, INCUBATION TO CONTINUE FOR 3 DAYS. 09/17/16 15:30 Gram Stain - Final Wound Wound Culture - Preliminary Lactose Fermenting Neg Bacilli Group D Strep Or Entero Coccus Staphylococcus Coagulase Neg PHYSICAL EXAMINATION: Constitutional: Yes: No Distress/ comfortable Eyes: Yes: Conjunctiva Clear Neck: Yes: Supple Cardiovascular: Yes: Regular Rate and Rhythm Respiratory: Yes: Diminished (at bases) Gastrointestinal: Yes: Soft Breast(s): Yes: Skin Changes (skin excoriation - left breast -) Extremities: Yes: Amputation Neurological: Yes: Alert ASSESSMENT & PLAN: Status Post removal of AV fistula and placement of permacath. ? Pneumonia. Breast inflamation vs mass -- u/s pending. - Antibiotics. - Wound cultures reveal E. Coli. - Dialysis per Renal.-- Scheduled for today. - Monitor BGM. - Pain control. - Discussed with Dr. Hilton today. - Will follow. - Continue local care. Documentation prepared by Liudmila Garcia, acting as a medical staff services coordinator for Jessenia Galarza MD. <Liudmila Garcia - Last Filed: 09/20/16 10:26> Problem List - Problems (1) Dialysis AV fistula infection Code(s): T82.7XXA - INFECT/INFLM REACT D/T OTH CARDI/VASC DEV/IMPLNT/GRFT, INIT Qualifiers: Encounter type: initial encounter Qualified Code(s): T82.7XXA - Infection and inflammatory reaction due to other cardiac and vascular devices, implants and grafts, initial encounter (2) ESRD on hemodialysis Code(s): N18.6 - END STAGE RENAL DISEASE Z99.2 - DEPENDENCE ON RENAL DIALYSIS (3) Anemia in ESRD (end-stage renal disease) Code(s): N18.6 - END STAGE RENAL DISEASE D63.1 - ANEMIA IN CHRONIC KIDNEY DISEASE (4) Diabetes Code(s): E11.9 - TYPE 2 DIABETES MELLITUS WITHOUT COMPLICATIONS Qualifiers: Diabetes mellitus type: type 1 Diabetes mellitus complication status: with circulatory complication Diabetes mellitus complication detail: with other circulatory complications Qualified Code(s): E10.59 - Type 1 diabetes mellitus with other circulatory complications (5) Foot amputation status Code(s): Z89.439 - ACQUIRED ABSENCE OF UNSPECIFIED FOOT Qualifiers: Laterality: right Qualified Code(s): Z89.431 - Acquired absence of right foot (6) Hypothyroidism Code(s): E03.9 - HYPOTHYROIDISM, UNSPECIFIED <Jessenia Galarza - Last Filed: 09/20/16 10:07>
[2016-09-20] MEDS: HYDROmorphone HCL CARPU-JECT 1 MG/1 ML DISP.SYRIN IVPUSH PRN (10:15)
--- NOTE | 2016-09-20 10:20 | PN ---
Progress Note (short form) - Note Progress Note: POD 2 VSS, Afebrile Less pain. Right arm wounds with seropurulent discharge, no bleeding. C+S E.coli Imp: s/p graft excision, wounds begining to heal Plan: Peroxide irrigation, Iodoform packing. Continue Abx. Problem List - Problems (1) Renal dialysis device, implant, or graft complication Code(s): T82.9XXA - UNSP COMP OF CARDIAC AND VASCULAR PROSTH DEV/GRFT, INIT Qualifiers: Qualified Code(s): T82.9XXD - Unspecified complication of cardiac and vascular prosthetic device, implant and graft, subsequent encounter
--- NOTE | 2016-09-20 10:22 | PN ---
Progress Note, Physician Chief Complaint: ID Remains afebrile vancomycin Cefepime Patient examined with Dr Hilton including wounds - Current Medication List Current Medications: Active Medications Acetaminophen/Codeine Phosphate (Tylenol # 3 -) 1 tab PO Q4H PRN PRN Reason: FEVER OR PAIN Last Admin: 09/19/16 11:40 Dose: 1 tab Albuterol Sulfate (Ventolin 0.083% Nebulizer Soln -) 1 amp NEB Q4H PRN PRN Reason: SHORT OF BREATH/WHEEZING Alprazolam (Xanax -) 0.25 mg PO BID [facility]PL[facility] Last Admin: 09/20/16 09:21 Dose: 0.25 mg Calcium Acetate (Phoslo -) 667 mg PO TIDCM REPLAC[facility] Last Admin: 09/20/16 08:39 Dose: 667 mg Clopidogrel Bisulfate (Plavix -) 75 mg PO DAILY [facility] Last Admin: 09/20/16 09:21 Dose: 75 mg Cyanocobalamin (Vitamin B12 -) 100 mcg PO DAILY [facility] Last Admin: 09/20/16 09:21 Dose: 100 mcg Docusate Sodium (Colace -) 100 mg PO TID [facility] Last Admin: 09/20/16 06:56 Dose: 100 mg Fentanyl (Sublimaze Injection -) 25 mcg IVPUSH [id number] PRN PRN Reason: PAIN Stop: 09/21/16 09:11 Heparin Sodium (Porcine) (Heparin -) 5,000 unit SQ BID [facility] Last Admin: 09/20/16 09:21 Dose: 5,000 unit Hydromorphone HCl (Dilaudid Injection -) 0.5 mg IVPUSH Q6H PRN PRN Reason: PAIN Last Admin: 09/19/16 01:33 Dose: 0.5 mg Cefepime HCl 0.5 gm/ Dextrose 50 mls @ 100 mls/hr IVPB DAILY [facility] Last Admin: 09/19/16 14:59 Dose: 100 mls/hr Insulin Aspart (Novolog Vial Sliding Scale -) 1 vial SQ ACHS [facility] PRN Reason: Protocol Last Admin: 09/20/16 06:55 Dose: Not Given Insulin Detemir (Levemir Vial) 18 units SQ HS [facility] Last Admin: 09/19/16 21:38 Dose: 18 units Insulin Detemir (Levemir Vial) 20 units SQ ACBK [facility] Last Admin: 09/20/16 06:55 Dose: Not Given Ketorolac Tromethamine (Toradol Injection -) 30 mg IVPUSH NOW ONE Stop: 09/22/16 14:44 Last Admin: 09/17/16 17:27 Dose: Not Given Metoprolol Succinate (Toprol Xl -) 12.5 mg PO DAILY [facility] Last Admin: 09/20/16 09:21 Dose: Not Given Pantoprazole Sodium (Protonix -) 40 mg PO DAILY [facility] Last Admin: 09/20/16 09:21 Dose: 40 mg Senna (Senna -) 2 tab PO HS PRN PRN Reason: CONSTIPATION - Objective Vital Signs: Vital Signs Temperature 98.8 F 09/20/16 06:00 Pulse Rate 69 09/20/16 09:59 Respiratory Rate 202 H 09/20/16 06:00 Blood Pressure 111/80 09/20/16 06:00 O2 Sat by Pulse Oximetry (%) 95 09/20/16 09:59 Constitutional: Yes: Well Nourished, No Distress Breast(s): Yes: Other (carding utility tender area palpation lft breast not fluctuant) Extremities: Yes: Other (Surgical excision graft sites packing removed still with drainage especailoly superior wound) Labs: CBC, BMP 09/19/16 06:00 09/18/16 06:30 INR, PTT INR 1.20 (0.82-1.09) H 09/17/16 12:22 Problem List - Problems (1) Dialysis AV fistula infection Code(s): T82.7XXA - INFECT/INFLM REACT D/T OTH CARDI/VASC DEV/IMPLNT/GRFT, INIT Qualifiers: Encounter type: initial encounter Qualified Code(s): T82.7XXA - Infection and inflammatory reaction due to other cardiac and vascular devices, implants and grafts, initial encounter (2) ESRD on hemodialysis Code(s): N18.6 - END STAGE RENAL DISEASE Z99.2 - DEPENDENCE ON RENAL DIALYSIS (3) Anemia in ESRD (end-stage renal disease) Code(s): N18.6 - END STAGE RENAL DISEASE D63.1 - ANEMIA IN CHRONIC KIDNEY DISEASE Assessment/Plan Microbiology 09/17/16 15:30 Wound Gram Stain - Final 09/17/16 15:30 Wound Gram Stain - Final 09/18/16 11:40 Arm - Right Upper Wound Culture - Preliminary Escherichia Coli 09/17/16 15:30 Wound Wound Culture - Preliminary Lactose Fermenting Neg Bacilli Group D Strep Or Entero Coccus Staphylococcus Coagulase Neg 09/17/16 15:30 Wound Wound Culture - Preliminary Escherichia Coli Laboratory Tests 09/19/16 06:00 WBC 10.5 H Assessment Excision infected AVG for dialysis with mixed wound culture Left breast tender swelling ? abscess ESRD Plan Continue Madhuo and Gent here in the hospital redose Sonogram breast Danica CASTILLO
[2016-09-20] MEDS ORDERED: GENTAMICIN SO4 *PEDIATRIC* 20 MG/2 ML VIAL IVPB ONE (10:27)
[2016-09-20] MEDS ORDERED: VANCOMYCIN 1 GRAM (PRE-DOCKED) 1,000 MG/250 ML BAG IVPB ONE (12:00)
[2016-09-20] MEDS ORDERED: VANCOMYCIN 1 GRAM (PRE-DOCKED) 250 ML IVPB ONE (12:00)
[2016-09-20] MEDS ORDERED: GENTAMICIN 80 MG PREMIXED IVPB 100 ML IVPB ONE (12:00)
--- NOTE | 2016-09-20 12:20 | PN ---
Progress Note, Physician Chief Complaint: Patient admitted with malfunctioning AV graft ( hero) Had removal of the same, and placement of a right IJ catheter for dialysis. The Right arm pen wound is draining sero-purulent drainage. Culture E. Coli? On Abx. Next Hemodialysis tomorrow. - Current Medication List Current Medications: Active Medications Acetaminophen/Codeine Phosphate (Tylenol # 3 -) 1 tab PO Q4H PRN PRN Reason: FEVER OR PAIN Last Admin: 09/19/16 11:40 Dose: 1 tab Albuterol Sulfate (Ventolin 0.083% Nebulizer Soln -) 1 amp NEB Q4H PRN PRN Reason: SHORT OF BREATH/WHEEZING Alprazolam (Xanax -) 0.25 mg PO BID [facility] Last Admin: 09/20/16 09:21 Dose: 0.25 mg Calcium Acetate (Phoslo -) 667 mg PO TIDCM [facility] Last Admin: 09/20/16 08:39 Dose: 667 mg Clopidogrel Bisulfate (Plavix -) 75 mg PO DAILY [facility] Last Admin: 09/20/16 09:21 Dose: 75 mg Cyanocobalamin (Vitamin B12 -) 100 mcg PO DAILY [facility] Last Admin: 09/20/16 09:21 Dose: 100 mcg Docusate Sodium (Colace -) 100 mg PO TID [facility] Last Admin: 09/20/16 06:56 Dose: 100 mg Fentanyl (Sublimaze Injection -) 25 mcg IVPUSH [id number] PRN PRN Reason: PAIN Stop: 09/21/16 09:11 Heparin Sodium (Porcine) (Heparin -) 5,000 unit SQ BID [facility] Last Admin: 09/20/16 09:21 Dose: 5,000 unit Hydromorphone HCl (Dilaudid Injection -) 0.5 mg IVPUSH Q6H PRN PRN Reason: PAIN Last Admin: 09/20/16 10:15 Dose: 0.5 mg Gentamicin Sulfate/Sodium Chloride (Garamycin 80 Mg Premixed Ivpb -) 100 mls @ 100 mls/hr IVPB ONCE ONE Stop: 09/20/16 12:59 Insulin Aspart (Novolog Vial Sliding Scale -) 1 vial SQ ACHS [facility] PRN Reason: Protocol Last Admin: 09/20/16 06:55 Dose: Not Given Insulin Detemir (Levemir Vial) 18 units SQ HS [facility] Last Admin: 09/19/16 21:38 Dose: 18 units Insulin Detemir (Levemir Vial) 20 units SQ ACBK [facility] Last Admin: 09/20/16 06:55 Dose: Not Given Ketorolac Tromethamine (Toradol Injection -) 30 mg IVPUSH NOW ONE Stop: 09/22/16 14:44 Last Admin: 09/17/16 17:27 Dose: Not Given Metoprolol Succinate (Toprol Xl -) 12.5 mg PO DAILY [facility] Last Admin: 09/20/16 09:21 Dose: Not Given Pantoprazole Sodium (Protonix -) 40 mg PO DAILY [facility] Last Admin: 09/20/16 09:21 Dose: 40 mg Senna (Senna -) 2 tab PO HS PRN PRN Reason: CONSTIPATION - Objective Vital Signs: Vital Signs Temperature 98.8 F 09/20/16 06:00 Pulse Rate 69 09/20/16 09:59 Respiratory Rate 202 H 09/20/16 06:00 Blood Pressure 111/80 09/20/16 06:00 O2 Sat by Pulse Oximetry (%) 95 09/20/16 09:59 Labs: CBC, BMP 09/19/16 06:00 09/18/16 06:30 INR, PTT INR 1.20 (0.82-1.09) H 09/17/16 12:22 Problem List - Problems (1) Dialysis AV fistula infection Code(s): T82.7XXA - INFECT/INFLM REACT D/T OTH CARDI/VASC DEV/IMPLNT/GRFT, INIT Qualifiers: Encounter type: initial encounter Qualified Code(s): T82.7XXA - Infection and inflammatory reaction due to other cardiac and vascular devices, implants and grafts, initial encounter (2) ESRD on hemodialysis Code(s): N18.6 - END STAGE RENAL DISEASE Z99.2 - DEPENDENCE ON RENAL DIALYSIS (3) Renal dialysis device, implant, or graft complication Code(s): T82.9XXA - UNSP COMP OF CARDIAC AND VASCULAR PROSTH DEV/GRFT, INIT Qualifiers: Encounter type: subsequent encounter Qualified Code(s): T82.9XXD - Unspecified complication of cardiac and vascular prosthetic device, implant and graft, subsequent encounter (4) Anemia in ESRD (end-stage renal disease) Code(s): N18.6 - END STAGE RENAL DISEASE D63.1 - ANEMIA IN CHRONIC KIDNEY DISEASE (5) Diabetes Code(s): E11.9 - TYPE 2 DIABETES MELLITUS WITHOUT COMPLICATIONS Qualifiers: Diabetes mellitus type: type 1 Diabetes mellitus complication status: with circulatory complication Diabetes mellitus complication detail: with other circulatory complications Qualified Code(s): E10.59 - Type 1 diabetes mellitus with other circulatory complications (6) Fever Code(s): R50.9 - FEVER, UNSPECIFIED (7) Foot amputation status Code(s): Z89.439 - ACQUIRED ABSENCE OF UNSPECIFIED FOOT Qualifiers: Laterality: right Qualified Code(s): Z89.431 - Acquired absence of right foot (8) Hyperkalemia, diminished renal excretion Code(s): E87.5 - HYPERKALEMIA (9) Unilateral AKA Code(s): Z89.619 - ACQUIRED ABSENCE OF UNSPECIFIED LEG ABOVE KNEE Qualifiers: Laterality: right Qualified Code(s): Z89.611 - Acquired absence of right leg above knee (10) E coli infection Assessment/Plan: On IV Gentamicin Assessment/Plan Patient with ESRD, on Hemodialysis. Has E. coli infected Right arm wound draining sero- purulent drainage. On IV Gentamicin Next Hemodialysis in AM Layla Evans MD
[2016-09-20] MEDS: CEFEPIME 0.5 GM in DEXTROSE 5%-WATER - 50 ML IVPB SCH (12:25)
--- NOTE | 2016-09-20 13:03 | OP ---
DATE OF OPERATION: 09/18/2016 PROCEDURE: Removal of Hero graft. Placement of PermCath. Debridement of right arm wounds. PREOPERATIVE DIAGNOSIS: 1. Infected Hero graft, right arm. 2. End-stage renal disease, on hemodialysis POSTOPERATIVE DIAGNOSIS: 1. Infected Hero graft, right arm. 2. End-stage renal disease, on hemodialysis SURGEON: Dharmesh Hilton MD ANESTHESIA: Fractional ANESTHESIOLOGIST: Maritza Kirk DO OPERATIVE FINDINGS: There was purulent infection of the proximal portion of the right arm Hero graft. The arterial anastomosis was incorporated in scar tissue and did not appear to be infected. There was no evidence of infection into venous limb of the graft or in the Hero catheter segment. OPERATIVE PROCEDURE: Following routine patient identification with side and site verification, intravenous sedation was established. The right neck, chest and arm were prepped with Betadine solution. 1% Xylocaine was the infiltrated in the right neck, and a small skin incision made over the Hero catheter. Subcutaneous tissues were bluntly, and the catheter was elevated into the wound. It was clamped proximally and distally and divided. A wire was advanced through the proximal portion of the catheter into the right atrium under fluoroscopic guidance. The catheter was removed. The introducer catheter for the PermCath was then advanced over the wire. Additional Xylocaine was then infiltrated in the scar on the deltoid area, and the wound was re-opened. The Hero adapter was carefully immobilized from the surrounding tissues and freed from the sutures holding it in place. The PTFE graft was clamped, and the graft divided next to the adapter, and then the adapter and the remaining portion of the Hero catheter was removed. The stump of the PTFE graft was oversewn with a running suture 6-0 Prolene, and the graft pushed back into its tract into the upper arm. The wound was irrigated with bacitracin solution and closed with interruptive suture of 3-0 Vicryl and a running continuous suture of 3-0 nylon. A sterile dressing was applied over this. Xylocaine was then infiltrated into the chest wall, and a stab-wound made inferior to the clavicle. A 28-cm PermCath was passed from the chest to the neck with the aid of a tunneler positioning the subcutaneous cuff. The catheter was then advanced through the introducer into the right atrium, and the introducer was peeled away. Each limb was aspirated for blood and flushed with a saline and heparin solution. The neck wound was closed with interruptive suture and 3-0 Vicryl, and a subcuticular suture of 4-0 Biosyn. The catheter was sutured to the skin at the exit site with 3-0 nylon. These wounds were covered with sterile dressings. Attention was then turned to the right arm wounds. Xylocaine was infiltrated in the axilla, and the old scar re-opened with removal of necrotic eschar from the surface. The PTFE graft was elevated out of the wound and tracked down toward the arterial anastomosis. There was dense scar tissue surrounding the proximal portion of the graft where it was attached to the artery, and there was no evidence of infection in this area. It was felt that leaving a small cuff of Sander on the artery would be safer than dissecting out the anastomosis and risking further nerve damage in the arm. Accordingly, the graft was occluded as far proximally as possible with a vascular clamp and amputated. The stump was oversewn with running suture of 6-0 Prolene. The wound was irrigated with bacitracin solution, and the loose portion of PTFE graft was pulled and cut out of the arm wound. The tissues overlying the artery were then closed with sutures of 3-0 Vicryl. The remainder of the wound was packed with moist gauze. The more distal area of the arm wound where the graft was exposed was then opened and the graft pulled out from under the tissue and the remaining portion of the venous limb pulled out. This required some force as it appeared to be incorporated in the subcutaneous tissues. All wounds were then irrigated with bacitracin solution and packed open with iodoform gauze. Sterile dressings were applied and the patient was taken to the recovery room in stable condition. Shannon [id number]
--- NOTE | 2016-09-20 14:14 | PN ---
Progress Note, Physician History of Present Illness: RUE discomfort improved after removal of RUE infected graft and wound debridement, tolerated HD via permacath yesterday. Denies chest pain or dyspnea. - Current Medication List Current Medications: Active Medications Acetaminophen/Codeine Phosphate (Tylenol # 3 -) 1 tab PO Q4H PRN PRN Reason: FEVER OR PAIN Last Admin: 09/19/16 11:40 Dose: 1 tab Albuterol Sulfate (Ventolin 0.083% Nebulizer Soln -) 1 amp NEB Q4H PRN PRN Reason: SHORT OF BREATH/WHEEZING Alprazolam (Xanax -) 0.25 mg PO BID [facility] Last Admin: 09/20/16 09:21 Dose: 0.25 mg Calcium Acetate (Phoslo -) 667 mg PO TIDCM [facility] Last Admin: 09/20/16 12:16 Dose: 667 mg Clopidogrel Bisulfate (Plavix -) 75 mg PO DAILY [facility] Last Admin: 09/20/16 09:21 Dose: 75 mg Cyanocobalamin (Vitamin B12 -) 100 mcg PO DAILY [facility] Last Admin: 09/20/16 09:21 Dose: 100 mcg Docusate Sodium (Colace -) 100 mg PO TID [facility] Last Admin: 09/20/16 06:56 Dose: 100 mg Fentanyl (Sublimaze Injection -) 25 mcg IVPUSH [id number] PRN PRN Reason: PAIN Stop: 09/21/16 09:11 Heparin Sodium (Porcine) (Heparin -) 5,000 unit SQ BID [facility] Last Admin: 09/20/16 09:21 Dose: 5,000 unit Hydromorphone HCl (Dilaudid Injection -) 0.5 mg IVPUSH Q6H PRN PRN Reason: PAIN Last Admin: 09/20/16 10:15 Dose: 0.5 mg Gentamicin Sulfate 80 mg/ (Dextrose) 102 mls @ 102 mls/hr IVPB POSTDI ONE Stop: 09/21/16 13:29 Insulin Aspart (Novolog Vial Sliding Scale -) 1 vial SQ ACHS [facility] PRN Reason: Protocol Last Admin: 09/20/16 12:25 Dose: Not Given Insulin Detemir (Levemir Vial) 18 units SQ HS [facility] Last Admin: 09/19/16 21:38 Dose: 18 units Insulin Detemir (Levemir Vial) 20 units SQ ACBK [facility] Last Admin: 09/20/16 06:55 Dose: Not Given Ketorolac Tromethamine (Toradol Injection -) 30 mg IVPUSH NOW ONE Stop: 09/22/16 14:44 Last Admin: 09/17/16 17:27 Dose: Not Given Metoprolol Succinate (Toprol Xl -) 12.5 mg PO DAILY [facility] Last Admin: 09/20/16 09:21 Dose: Not Given Pantoprazole Sodium (Protonix -) 40 mg PO DAILY [facility] Last Admin: 09/20/16 09:21 Dose: 40 mg Senna (Senna -) 2 tab PO HS PRN PRN Reason: CONSTIPATION - Objective Vital Signs: Vital Signs Temperature 98.8 F 09/20/16 06:00 Pulse Rate 69 09/20/16 09:59 Respiratory Rate 202 H 09/20/16 06:00 Blood Pressure 111/80 09/20/16 06:00 O2 Sat by Pulse Oximetry (%) 95 09/20/16 09:59 Constitutional: Yes: No Distress, Calm Neck: Yes: Supple Cardiovascular: Yes: Regular Rate and Rhythm Respiratory: Yes: Regular, Diminished Gastrointestinal: Yes: Normal Bowel Sounds, Soft Edema: No Labs: CBC, BMP 09/19/16 06:00 09/18/16 06:30 INR, PTT INR 1.20 (0.82-1.09) H 09/17/16 12:22 Problem List - Problems (1) Dialysis AV fistula infection Code(s): T82.7XXA - INFECT/INFLM REACT D/T OTH CARDI/VASC DEV/IMPLNT/GRFT, INIT Qualifiers: Encounter type: initial encounter Qualified Code(s): T82.7XXA - Infection and inflammatory reaction due to other cardiac and vascular devices, implants and grafts, initial encounter (2) ESRD on hemodialysis Code(s): N18.6 - END STAGE RENAL DISEASE Z99.2 - DEPENDENCE ON RENAL DIALYSIS (3) Renal dialysis device, implant, or graft complication Code(s): T82.9XXA - UNSP COMP OF CARDIAC AND VASCULAR PROSTH DEV/GRFT, INIT Qualifiers: Encounter type: subsequent encounter Qualified Code(s): T82.9XXD - Unspecified complication of cardiac and vascular prosthetic device, implant and graft, subsequent encounter (4) Diabetes Code(s): E11.9 - TYPE 2 DIABETES MELLITUS WITHOUT COMPLICATIONS Qualifiers: Diabetes mellitus type: type 1 Diabetes mellitus complication status: with circulatory complication Diabetes mellitus complication detail: with other circulatory complications Qualified Code(s): E10.59 - Type 1 diabetes mellitus with other circulatory complications (5) S/P transmetatarsal amputation of foot Code(s): Z89.439 - ACQUIRED ABSENCE OF UNSPECIFIED FOOT Qualifiers: Laterality: left Qualified Code(s): Z89.432 - Acquired absence of left foot (6) Steal syndrome dialysis vascular access Code(s): T82.898A - [facility] COMPLICATION OF VASCULAR PROSTH DEV/GRFT, INIT Qualifiers: Encounter type: subsequent encounter Qualified Code(s): T82.898D - Other specified complication of vascular prosthetic devices, implants and grafts , subsequent encounter (7) Anemia Code(s): D64.9 - ANEMIA, UNSPECIFIED Qualifiers: Other causes of anemia: chronic disease, kidney Assessment/Plan 1. Infected RUE HeRO post removal, wound debridement, PC placement 2. PAD s/p right BKA, left TMA 3. CAD s/p multivessel PCI (stent), angina pectoris 4. LV diastolic dysfunction 5. ESRD on HD 6. Type 2 DM 7. Hyperlipidemia 8. HTN/HCVD 9. Hypothyroidism with abnormal TSH and normal FT4 10. Anemia of chronic kidney disease PLAN: 1. Continue Toprol XL 12.5 qd, and Clopidogrel 75 qd now that post-op hemostasis has been achieved 2. HD per renal, complete abx course, wound care 3. DVT and GI prophylaxis
[2016-09-20] MEDS ORDERED: SIMETHICONE 80 MG TAB.CHEW (FP) PO ONE (20:30)
[2016-09-20] MEDS: SENNOSIDES 8.6MG TABLET (FP) PO PRN (21:09)
[2016-09-21] MEDS: HEPARIN NA (PORCINE) 5,000 UNITS/ML 1ML VIAL SQ SCH ×3 (00:44→21:32)
[2016-09-21] MEDS: INSULIN SLIDING SCALE (NOVOLOG) 1 VIAL SQ SCH ×4 (06:17→22:13)
[2016-09-21] MEDS: INSULIN DETEMIR 100 UNITS/ML MDV SQ SCH ×2 (06:17→22:14)
[2016-09-21] MEDS: DOCUSATE SODIUM 100 MG CAPSULE (FP) PO SCH ×3 (06:19→22:12)
[2016-09-21] MEDS: ACETAMINOPHEN WITH CODEINE 300MG/30MG TABLET PO PRN ×2 (08:25→14:50)
[2016-09-21] MEDS: CALCIUM ACETATE 667 MG CAPSULE (FP) PO SCH ×4 (08:27→17:53)
[2016-09-21] MEDS ORDERED: GENTAMICIN 80 MG PREMIXED IVPB 100 ML IVPB SCH (11:00)
[2016-09-21] MEDS: CLOPIDOGREL BISULFATE 75 MG TABLET (FP) PO SCH ×2 (11:10→15:16)
[2016-09-21] MEDS: ALPRAZolam 0.25 MG TABLET PO SCH ×3 (11:11→22:12)
[2016-09-21] MEDS: CYANOCOBALAMIN (VITAMIN B-12) 100 MCG TABLET PO SCH ×2 (11:11→15:19)
[2016-09-21] MEDS: METOPROLOL SUCCINATE 25 MG TAB.SR.24H (FP) PO SCH ×2 (11:11→15:16)
[2016-09-21] MEDS: PANTOPRAZOLE 40 MG TABLET (FP) PO SCH ×2 (11:11→15:15)
--- NOTE | 2016-09-21 11:43 | EKG ---
Test Reason : Blood Pressure : / mmHG Vent. Rate : 054 BPM Atrial Rate : 054 BPM P-R Int : 158 ms QRS Dur : 074 ms QT Int : 460 ms P-R-T Axes : 047 067 045 degrees QTc Int : 436 ms SINUS BRADYCARDIA LOW VOLTAGE QRS NONSPECIFIC ST ABNORMALITY ABNORMAL ECG WHEN COMPARED WITH ECG OF 25-AUG-2016 12:19, ST Confirmed by AKASH VIZCAINO MD ([id number]) on 09/21/2016 11:43:03 AM Referred By: Overread By: AKASH VIZCAINO MD
[2016-09-21] MEDS ORDERED: CALAMINE 8% TOPICAL LOTION 177 ML BOTTLE TP PRN (12:02)
--- NOTE | 2016-09-21 12:03 | PN ---
Progress Note, Physician Chief Complaint: events noted Pt examined in Dialysis c/o left breast pain s/p removal of Hero graft rt arm and debridement of wound rt arm - Current Medication List Current Medications: Active Medications Acetaminophen/Codeine Phosphate (Tylenol # 3 -) 1 tab PO Q4H PRN PRN Reason: FEVER OR PAIN Last Admin: 09/21/16 08:25 Dose: 1 tab Albuterol Sulfate (Ventolin 0.083% Nebulizer Soln -) 1 amp NEB Q4H PRN PRN Reason: SHORT OF BREATH/WHEEZING Alprazolam (Xanax -) 0.25 mg PO BID [facility] Last Admin: 09/21/16 11:11 Dose: Not Given Calcium Acetate (Phoslo -) 667 mg PO TIDCM [facility] Last Admin: 09/21/16 08:27 Dose: 667 mg Clopidogrel Bisulfate (Plavix -) 75 mg PO DAILY [facility] Last Admin: 09/21/16 11:10 Dose: Not Given Cyanocobalamin (Vitamin B12 -) 100 mcg PO DAILY [facility] Last Admin: 09/21/16 11:11 Dose: Not Given Docusate Sodium (Colace -) 100 mg PO TID [facility] Last Admin: 09/21/16 06:19 Dose: 100 mg Epoetin Sky (Procrit -) 10,000 unit IVPUSH ONCE ONE Stop: 09/21/16 12:16 Heparin Sodium (Porcine) (Heparin -) 5,000 unit SQ BID [facility] Last Admin: 09/21/16 11:10 Dose: Not Given Gentamicin Sulfate/Sodium Chloride (Garamycin 80 Mg Premixed Ivpb -) 100 mls @ 100 mls/hr IVPB POSTDI [facility] Stop: 09/22/16 10:59 Insulin Aspart (Novolog Vial Sliding Scale -) 1 vial SQ ACHS [facility] PRN Reason: Protocol Last Admin: 09/21/16 06:17 Dose: 3 units Insulin Detemir (Levemir Vial) 18 units SQ HS [facility] Last Admin: 09/20/16 21:09 Dose: 18 units Insulin Detemir (Levemir Vial) 20 units SQ ACBK [facility] Last Admin: 09/21/16 06:17 Dose: 20 units Ketorolac Tromethamine (Toradol Injection -) 30 mg IVPUSH NOW ONE Stop: 09/22/16 14:44 Last Admin: 09/17/16 17:27 Dose: Not Given Metoprolol Succinate (Toprol Xl -) 12.5 mg PO DAILY [facility] Last Admin: 09/21/16 11:11 Dose: Not Given Pantoprazole Sodium (Protonix -) 40 mg PO DAILY [facility] Last Admin: 09/21/16 11:11 Dose: Not Given Senna (Senna -) 2 tab PO HS PRN PRN Reason: CONSTIPATION Last Admin: 09/20/16 21:09 Dose: 2 tab - Objective Vital Signs: Vital Signs Temperature 99.2 F 09/20/16 17:40 Pulse Rate 67 09/21/16 09:38 Respiratory Rate 18 09/20/16 20:37 Blood Pressure 152/33 09/20/16 20:37 O2 Sat by Pulse Oximetry (%) 91 L 09/21/16 09:38 Constitutional: Yes: No Distress Cardiovascular: Yes: Regular Rate and Rhythm Respiratory: Yes: Diminished, Other (rt permacath) Gastrointestinal: Yes: Normal Bowel Sounds, Soft. No: Distention, Tenderness Breast(s): Yes: Left, Mass (tender+ outer quadrant) Edema: No Psychiatric: Yes: Alert, Oriented Labs: CBC, BMP 09/19/16 06:00 09/18/16 06:30 INR, PTT INR 1.20 (0.82-1.09) H 09/17/16 12:22 Problem List - Problems (1) Dialysis AV fistula infection Code(s): T82.7XXA - INFECT/INFLM REACT D/T OTH CARDI/VASC DEV/IMPLNT/GRFT, INIT Qualifiers: Encounter type: initial encounter Qualified Code(s): T82.7XXA - Infection and inflammatory reaction due to other cardiac and vascular devices, implants and grafts, initial encounter (2) ESRD on hemodialysis Code(s): N18.6 - END STAGE RENAL DISEASE Z99.2 - DEPENDENCE ON RENAL DIALYSIS (3) Diabetes Code(s): E11.9 - TYPE 2 DIABETES MELLITUS WITHOUT COMPLICATIONS Qualifiers: Diabetes mellitus type: type 1 Diabetes mellitus complication status: with circulatory complication Diabetes mellitus complication detail: with other circulatory complications Qualified Code(s): E10.59 - Type 1 diabetes mellitus with other circulatory complications (4) Steal syndrome dialysis vascular access Code(s): T82.898A - [facility]TH COMPLICATION OF VASCULAR PROSTH DEV/GRFT, INIT Qualifiers: Encounter type: subsequent encounter Qualified Code(s): T82.898D - Other specified complication of vascular prosthetic devices, implants and grafts , subsequent encounter (5) Breast pain, left Code(s): N64.4 - MASTODYNIA Assessment/Plan PLAN -- Ecoli in wound -- iv antibiotics per ID -- wound care -- breast sono pending-- spoke with [employer]-- may do it today or tomorrow -- dialysis per Renal --- monitor glucose -- continue with meds -- c/o generalized itching-- no rash noted-- Benadryl as needed and calamine lotion
[2016-09-21] MEDS ORDERED: EPOETIN ALFA 10,000 UNIT/1 ML VIAL IVPUSH ONE (12:15)
[2016-09-21] MEDS: diphenhydrAMINE HCL 25 MG CAPSULE (FP) PO PRN (12:44)
--- NOTE | 2016-09-21 13:14 | PN ---
Progress Note (short form) - Note Progress Note: pt states that she has some pain in her right arm. Vital Signs Period Temp Pulse Resp BP Sys/Cordero Pulse Ox Last 24 Hr 98.2 F-99.2 F 46-70 16-21 142-168/28-60 91-93 GEN: PE: appears comfortable RUE: dressing removed and irrigate with 50% NS/peroxide and repacked with iodoform. There are several small skin openings with various sizes 3 wounds approx 1x2cm and one larger opening in her upper arm 4x3cm. There is some necrotic tissue at the base, with minimal drainage. No erythema. Permacath in the right upper chest with incision with sutures on her chest. Microbiology 09/18/16 11:40 Arm - Right Upper Gram Stain - Final 09/18/16 11:40 Arm - Right Upper Wound Culture - Final Escherichia Coli 09/17/16 15:30 Wound Gram Stain - Final 09/17/16 15:30 Wound Wound Culture - Final Escherichia Coli Enterococcus Faecalis Staphylococcus Coagulase Neg 09/17/16 15:30 Wound Gram Stain - Final 09/17/16 15:30 Wound Wound Culture - Final Escherichia Coli 09/17/16 12:22 Blood - Peripheral Venous Blood Culture - Preliminary NO GROWTH OBTAINED AFTER 96 HOURS, INCUBATION TO CONTINUE FOR 1 DAYS. 09/17/16 12:22 Blood - Peripheral Venous Blood Culture - Preliminary NO GROWTH OBTAINED AFTER 96 HOURS, INCUBATION TO CONTINUE FOR 1 DAYS. CBC, BMP 09/19/16 06:00 09/18/16 06:30 Problem List - Problems (1) ESRD on hemodialysis Assessment/Plan: s/p removal of infected Hero graft, she remains afebrile Local wound care done today, there is some necrotic tissue at base. Repacked wound with iodoform Cultures sensitive to Gent, she is on IV gent after her HD sessions. Code(s): N18.6 - END STAGE RENAL DISEASE Z99.2 - DEPENDENCE ON RENAL DIALYSIS
--- NOTE | 2016-09-21 14:54 | PN ---
Progress Note (short form) - Note Progress Note: Renal Follow up for ESRD Pt seen and examined during dialysis earlier today BP 180/40 Tunneled catheter with good function pt without any acute complaints no fever or chills no sob, chest pain Vital Signs Temperature 98.2 F 09/21/16 11:10 Pulse Rate 58 L 09/21/16 13:00 Respiratory Rate 18 09/21/16 13:00 Blood Pressure 135/55 09/21/16 13:00 O2 Sat by Pulse Oximetry (%) 91 L 09/21/16 09:38 Gen: NAD, awake and alert HEENT: NC/AT, MM No JVD CVS: RRR, no M/R Lungs:CTA no rales or wheeze Abd: soft NT/ND Ext: No edema, clubbing or cyanosis Neuro: AAOx3, no focal defects CBC, BMP 09/19/16 06:00 09/18/16 06:30 Current Medications Acetaminophen/Codeine Phosphate (Tylenol # 3 -) 1 tab PO Q4H PRN PRN Reason: FEVER OR PAIN Last Admin: 09/21/16 08:25 Dose: 1 tab Albuterol Sulfate (Ventolin 0.083% Nebulizer Soln -) 1 amp NEB Q4H PRN PRN Reason: SHORT OF BREATH/WHEEZING Alprazolam (Xanax -) 0.25 mg PO BID [facility] Last Admin: 09/21/16 11:11 Dose: Not Given Calamine (Calamine 8% Topical Lotion -) 1 applic TP QID PRN PRN Reason: FOR ITCHING Calcium Acetate (Phoslo -) 667 mg PO TIDCM [facility] Last Admin: 09/21/16 13:04 Dose: Not Given Clopidogrel Bisulfate (Plavix -) 75 mg PO DAILY [facility] Last Admin: 09/21/16 11:10 Dose: Not Given Cyanocobalamin (Vitamin B12 -) 100 mcg PO DAILY [facility] Last Admin: 09/21/16 11:11 Dose: Not Given Diphenhydramine HCl (Benadryl -) 25 mg PO Q6H PRN PRN Reason: FOR ITCHING Last Admin: 09/21/16 12:44 Dose: 25 mg Docusate Sodium (Colace -) 100 mg PO TID [facility] Last Admin: 09/21/16 06:19 Dose: 100 mg Heparin Sodium (Porcine) (Heparin -) 5,000 unit SQ BID [facility] Last Admin: 09/21/16 11:10 Dose: Not Given Gentamicin Sulfate/Sodium Chloride (Garamycin 80 Mg Premixed Ivpb -) 100 mls @ 100 mls/hr IVPB POSTDI [facility] Stop: 09/22/16 10:59 Last Admin: 09/21/16 13:32 Dose: 100 mls/hr Insulin Aspart (Novolog Vial Sliding Scale -) 1 vial SQ ACHS [facility] PRN Reason: Protocol Last Admin: 09/21/16 12:42 Dose: Not Given Insulin Detemir (Levemir Vial) 18 units SQ HS [facility] Last Admin: 09/20/16 21:09 Dose: 18 units Insulin Detemir (Levemir Vial) 20 units SQ ACBK [facility] Last Admin: 09/21/16 06:17 Dose: 20 units Ketorolac Tromethamine (Toradol Injection -) 30 mg IVPUSH NOW ONE Stop: 09/22/16 14:44 Last Admin: 09/17/16 17:27 Dose: Not Given Metoprolol Succinate (Toprol Xl -) 12.5 mg PO DAILY [facility] Last Admin: 09/21/16 11:11 Dose: Not Given Pantoprazole Sodium (Protonix -) 40 mg PO DAILY [facility] Last Admin: 09/21/16 11:11 Dose: Not Given Senna (Senna -) 2 tab PO HS PRN PRN Reason: CONSTIPATION Last Admin: 09/20/16 21:09 Dose: 2 tab A/P 71 year old woman with PMhx of ESRD on HD (MWF), PVD, IDDM presents with AVG site infection. Pt s/p HeRO graft placement in July in the right ARM complicated by graft dislodgement and hematoma formation. #ESRD on HD with Infected HeRO graft site s/p Removal of HeRO graft currently tolerating Dialysis via tunneled catheter Continue Gent and Vancomycin IV post HD for wound infection Vascular Sx follow up S/p Gent after dialysis today will also redose Vanco for Strep/Staph seen on initial wound culture ID following Wan Cruz DO
[2016-09-21] MEDS ORDERED: VANCOMYCIN 1 GRAM (PRE-DOCKED) 250 ML IVPB ONE (15:15)
--- NOTE | 2016-09-21 15:36 | PN ---
Progress Note (short form) - Note Progress Note: Just completed HD s/o pain left breast Vital Signs Period Temp Pulse Resp BP Sys/Cordero Pulse Ox Last 24 Hr 98.2 F-99.2 F 49-70 16-18 135-168/28-62 91-93 cor-rrr lungs clear +left breast mass- tender, no erythema, +ecchymoses abd soft ext no edema, dressing right arm right PC CBC, BMP 09/19/16 06:00 09/18/16 06:30 Microbiology 09/17/16 12:22 Blood - Peripheral Venous Blood Culture - Preliminary NO GROWTH OBTAINED AFTER 96 HOURS, INCUBATION TO CONTINUE FOR 1 DAYS. 09/17/16 12:22 Blood - Peripheral Venous Blood Culture - Preliminary NO GROWTH OBTAINED AFTER 96 HOURS, INCUBATION TO CONTINUE FOR 1 DAYS. 09/17/16 15:30 Wound Gram Stain - Final 09/17/16 15:30 Wound Wound Culture - Final Escherichia Coli Enterococcus Faecalis Staphylococcus Coagulase Neg 09/18/16 11:40 Arm - Right Upper Gram Stain - Final 09/18/16 11:40 Arm - Right Upper Wound Culture - Final Escherichia Coli 09/17/16 15:30 Wound Gram Stain - Final 09/17/16 15:30 Wound Wound Culture - Final Escherichia Coli a/p infected graft s/p resection- received vanco/gent post hd need sonogram for left breast mass- ?abscess- patient has noticed pain for the last week now esrd/hd
--- NOTE | 2016-09-21 17:57 | PN ---
Progress Note, Physician Chief Complaint: Events noted Complains of left breast pain History of Present Illness: Patient was seen and examined while being dialyzed. Awake, but having diffuse pain left breast and abdomen. Chart was reviewed Denies chest pain or SOB - Current Medication List Current Medications: Active Medications Acetaminophen/Codeine Phosphate (Tylenol # 3 -) 1 tab PO Q4H PRN PRN Reason: FEVER OR PAIN Last Admin: 09/21/16 08:25 Dose: 1 tab Albuterol Sulfate (Ventolin 0.083% Nebulizer Soln -) 1 amp NEB Q4H PRN PRN Reason: SHORT OF BREATH/WHEEZING Alprazolam (Xanax -) 0.25 mg PO BID [facility] Last Admin: 09/21/16 15:17 Dose: 0.25 mg Calamine (Calamine 8% Topical Lotion -) 1 applic TP QID PRN PRN Reason: FOR ITCHING Calcium Acetate (Phoslo -) 667 mg PO TIDCM [facility] Last Admin: 09/21/16 15:17 Dose: Not Given Clopidogrel Bisulfate (Plavix -) 75 mg PO DAILY [facility] Last Admin: 09/21/16 15:16 Dose: 75 mg Cyanocobalamin (Vitamin B12 -) 100 mcg PO DAILY [facility] Last Admin: 09/21/16 15:19 Dose: 100 mcg Diphenhydramine HCl (Benadryl -) 25 mg PO Q6H PRN PRN Reason: FOR ITCHING Last Admin: 09/21/16 12:44 Dose: 25 mg Docusate Sodium (Colace -) 100 mg PO TID [facility] Last Admin: 09/21/16 15:15 Dose: 100 mg Heparin Sodium (Porcine) (Heparin -) 5,000 unit SQ BID [facility] Last Admin: 09/21/16 11:10 Dose: Not Given Gentamicin Sulfate/Sodium Chloride (Garamycin 80 Mg Premixed Ivpb -) 100 mls @ 100 mls/hr IVPB POSTDI [facility] Stop: 09/22/16 10:59 Last Admin: 09/21/16 13:32 Dose: 100 mls/hr Insulin Aspart (Novolog Vial Sliding Scale -) 1 vial SQ ACHS [facility] PRN Reason: Protocol Last Admin: 09/21/16 12:42 Dose: Not Given Insulin Detemir (Levemir Vial) 18 units SQ HS [facility] Last Admin: 09/20/16 21:09 Dose: 18 units Insulin Detemir (Levemir Vial) 20 units SQ ACBK [facility] Last Admin: 09/21/16 06:17 Dose: 20 units Ketorolac Tromethamine (Toradol Injection -) 30 mg IVPUSH NOW ONE Stop: 09/22/16 14:44 Last Admin: 09/17/16 17:27 Dose: Not Given Metoprolol Succinate (Toprol Xl -) 12.5 mg PO DAILY [facility] Last Admin: 09/21/16 15:16 Dose: 12.5 mg Pantoprazole Sodium (Protonix -) 40 mg PO DAILY [facility] Last Admin: 09/21/16 15:15 Dose: 40 mg Senna (Senna -) 2 tab PO HS PRN PRN Reason: CONSTIPATION Last Admin: 09/20/16 21:09 Dose: 2 tab - Objective Vital Signs: Vital Signs Temperature 98.2 F 09/21/16 11:10 Pulse Rate 66 09/21/16 14:57 Respiratory Rate 18 09/21/16 14:57 Blood Pressure 164/28 09/21/16 14:57 O2 Sat by Pulse Oximetry (%) 91 L 09/21/16 10:00 Neck: Yes: Supple Cardiovascular: Yes: Regular Rate and Rhythm, S1, S2 Respiratory: Yes: Diminished Gastrointestinal: Yes: Normal Bowel Sounds, Soft, Tenderness Breast(s): Yes: Other (Pain to palpation) Edema: No Additional Findings/Remarks: - Review of Systems Constitutional: denies: Chills, Fever Cardiovascular: reports: breast pain, denies: Palpitations, Shortness of Breath Respiratory: denies: Cough, SOB, SOB on Exertion. denies: Hemoptysis, Orthopnea , PND Gastrointestinal: (+) Abdominal Pain, denies: Constipation, Diarrhea, Melena, Nausea, Rectal Bleeding, Vomiting Genitourinary: denies: Dysuria Neurological: denies: Dizziness, Headache, Seizure, Syncope Problem List - Problems (1) Breast pain, left Code(s): N64.4 - MASTODYNIA (2) Dialysis AV fistula infection Code(s): T82.7XXA - INFECT/INFLM REACT D/T OTH CARDI/VASC DEV/IMPLNT/GRFT, INIT Qualifiers: Encounter type: initial encounter Qualified Code(s): T82.7XXA - Infection and inflammatory reaction due to other cardiac and vascular devices, implants and grafts, initial encounter (3) ESRD on hemodialysis Code(s): N18.6 - END STAGE RENAL DISEASE Z99.2 - DEPENDENCE ON RENAL DIALYSIS (4) Renal dialysis device, implant, or graft complication Code(s): T82.9XXA - UNSP COMP OF CARDIAC AND VASCULAR PROSTH DEV/GRFT, INIT Qualifiers: Encounter type: subsequent encounter Qualified Code(s): T82.9XXD - Unspecified complication of cardiac and vascular prosthetic device, implant and graft, subsequent encounter (5) Anemia in ESRD (end-stage renal disease) Code(s): N18.6 - END STAGE RENAL DISEASE D63.1 - ANEMIA IN CHRONIC KIDNEY DISEASE (6) Diabetes Code(s): E11.9 - TYPE 2 DIABETES MELLITUS WITHOUT COMPLICATIONS Qualifiers: Diabetes mellitus type: type 1 Diabetes mellitus complication status: with circulatory complication Diabetes mellitus complication detail: with other circulatory complications Qualified Code(s): E10.59 - Type 1 diabetes mellitus with other circulatory complications (7) S/P transmetatarsal amputation of foot Code(s): Z89.439 - ACQUIRED ABSENCE OF UNSPECIFIED FOOT Qualifiers: Laterality: left Qualified Code(s): Z89.432 - Acquired absence of left foot (8) Unilateral AKA Code(s): Z89.619 - ACQUIRED ABSENCE OF UNSPECIFIED LEG ABOVE KNEE Qualifiers: Laterality: right Qualified Code(s): Z89.611 - Acquired absence of right leg above knee Assessment/Plan 1. Infected RUE HeRO graft post removal, wound debridement and permacath placement 2. PAD s/p right BKA and left TMA 3. CAD s/p multivessel PCI (stent), angina pectoris 4. LV diastolic dysfunction 5. ESRD on HD 6. Type 2 DM 7. Hyperlipidemia 8. HTN/HCVD 9. Hypothyroidism with abnormal TSH and normal FT4 10. Anemia of chronic kidney disease PLAN: 1. Continue Toprol XL 2. Continue Clopidogrel 3. HD per renal 4. Complete antibiotic course and wound care 5. DVT and GI prophylaxis 6. Further work up of left breast pain. ID input noted Ernie Polanco MD
[2016-09-22 06:06] LABS: HEP B SURFACE AB Reactive (.)
[2016-09-22] MEDS: INSULIN SLIDING SCALE (NOVOLOG) 1 VIAL SQ SCH ×4 (06:42→21:58)
[2016-09-22] MEDS: DOCUSATE SODIUM 100 MG CAPSULE (FP) PO SCH ×3 (06:51→21:46)
[2016-09-22] MEDS: SENNOSIDES 8.6MG TABLET (FP) PO PRN (06:51)
[2016-09-22] MEDS: INSULIN DETEMIR 100 UNITS/ML MDV SQ SCH ×2 (06:51→21:58)
[2016-09-22] MEDS ORDERED: INSULIN (NOVOLOG) ASPART 100 UNITS/ML 10ML VIAL ONE (07:43)
[2016-09-22] MEDS ORDERED: INSULIN DETEMIR 100 UNITS/ML MDV SQ ONE (07:44)
[2016-09-22 08:14] LABS: MCH 27.6 pg (25.7-33.7); MEAN PLT VOLUME 7.9 fl (7.5-11.1); PLATELET COUNT 434 K/MM3 (134-434); RDW 16.8 % (11.6-15.6); WHITE BLOOD COUNT 11.1 K/mm3 (4.0-10.0)
[2016-09-22] MEDS: CALCIUM ACETATE 667 MG CAPSULE (FP) PO SCH ×3 (08:45→17:43)
[2016-09-22 08:58] LABS: CALCIUM 8.5 mg/dL (8.5-10.1); CREATININE 5.2 mg/dL (0.55-1.02)
[2016-09-22] MEDS: METOPROLOL SUCCINATE 25 MG TAB.SR.24H (FP) PO SCH (09:22)
[2016-09-22] MEDS: ALPRAZolam 0.25 MG TABLET PO SCH ×2 (09:22→21:46)
[2016-09-22] MEDS: CLOPIDOGREL BISULFATE 75 MG TABLET (FP) PO SCH (09:23)
[2016-09-22] MEDS: PANTOPRAZOLE 40 MG TABLET (FP) PO SCH (09:23)
[2016-09-22] MEDS: CYANOCOBALAMIN (VITAMIN B-12) 100 MCG TABLET PO SCH (09:24)
[2016-09-22] MEDS: HEPARIN NA (PORCINE) 5,000 UNITS/ML 1ML VIAL SQ SCH ×2 (09:24→21:46)
--- NOTE | 2016-09-22 10:04 | PN ---
Progress Note (short form) - Note Progress Note: still some lower abdominal pain Vital Signs Period Temp Pulse Resp BP Sys/Cordero Pulse Ox Last 24 Hr 98.2 F-99.1 F 52-70 18-18 129-168/28-90 91 cor-rrr lungs clear abd soft, small subcutaneous nodules lower abdomen- painful to touch, no erythema dressing right arm s/p right AKA Right PC left breast mass unchanged CBC, BMP 09/22/16 06:45 09/22/16 06:45 Microbiology 09/17/16 12:22 Blood Culture - Preliminary Blood - Peripheral Venous NO GROWTH OBTAINED AFTER 96 HOURS, INCUBATION TO CONTINUE FOR 1 DAYS. 09/17/16 12:22 Blood Culture - Preliminary Blood - Peripheral Venous NO GROWTH OBTAINED AFTER 96 HOURS, INCUBATION TO CONTINUE FOR 1 DAYS. 09/17/16 15:30 Gram Stain - Final Wound Wound Culture - Final Escherichia Coli Enterococcus Faecalis Staphylococcus Coagulase Neg a/p s/p revision infected graft reciving vanco/gent with HD left breast mass- for sonogram this am painful subcutaneous lesions- ?emboli- check echo esrd/hd
--- NOTE | 2016-09-22 11:31 | PN ---
Progress Note, Physician Chief Complaint: c/o left breast pain s/p removal of Hero graft rt arm and debridement of wound rt arm - Current Medication List Current Medications: Active Medications Acetaminophen/Codeine Phosphate (Tylenol # 3 -) 1 tab PO Q4H PRN PRN Reason: FEVER OR PAIN Last Admin: 09/21/16 14:50 Dose: 1 tab Albuterol Sulfate (Ventolin 0.083% Nebulizer Soln -) 1 amp NEB Q4H PRN PRN Reason: SHORT OF BREATH/WHEEZING Alprazolam (Xanax -) 0.25 mg PO BID [facility] Last Admin: 09/22/16 09:22 Dose: 0.25 mg Calamine (Calamine 8% Topical Lotion -) 1 applic TP QID PRN PRN Reason: FOR ITCHING Calcium Acetate (Phoslo -) 667 mg PO TIDCM [facility] Last Admin: 09/22/16 08:45 Dose: 667 mg Clopidogrel Bisulfate (Plavix -) 75 mg PO DAILY [facility] Last Admin: 09/22/16 09:23 Dose: 75 mg Cyanocobalamin (Vitamin B12 -) 100 mcg PO DAILY [facility] Last Admin: 09/22/16 09:24 Dose: 100 mcg Diphenhydramine HCl (Benadryl -) 25 mg PO Q6H PRN PRN Reason: FOR ITCHING Last Admin: 09/21/16 12:44 Dose: 25 mg Docusate Sodium (Colace -) 100 mg PO TID [facility] Last Admin: 09/22/16 06:51 Dose: 100 mg Heparin Sodium (Porcine) (Heparin -) 5,000 unit SQ BID [facility] Last Admin: 09/22/16 09:24 Dose: Not Given Insulin Aspart (Novolog Vial Sliding Scale -) 1 vial SQ ACHS [facility] PRN Reason: Protocol Last Admin: 09/22/16 06:42 Dose: Not Given Insulin Detemir (Levemir Vial) 18 units SQ HS [facility] Last Admin: 09/21/16 22:14 Dose: 18 units Insulin Detemir (Levemir Vial) 20 units SQ ACBK [facility] Last Admin: 09/22/16 06:51 Dose: 20 units Ketorolac Tromethamine (Toradol Injection -) 30 mg IVPUSH NOW ONE Stop: 09/22/16 14:44 Last Admin: 09/17/16 17:27 Dose: Not Given Metoprolol Succinate (Toprol Xl -) 12.5 mg PO DAILY [facility] Last Admin: 09/22/16 09:22 Dose: 12.5 mg Pantoprazole Sodium (Protonix -) 40 mg PO DAILY [facility] Last Admin: 09/22/16 09:23 Dose: 40 mg Senna (Senna -) 2 tab PO HS PRN PRN Reason: CONSTIPATION Last Admin: 09/22/16 06:51 Dose: 2 tab - Objective Vital Signs: Vital Signs Temperature 99.1 F 09/22/16 09:27 Pulse Rate 58 L 09/22/16 09:27 Respiratory Rate 18 09/22/16 09:27 Blood Pressure 129/90 09/22/16 09:27 O2 Sat by Pulse Oximetry (%) 91 L 09/21/16 21:00 Constitutional: Yes: No Distress, Calm Cardiovascular: Yes: Regular Rate and Rhythm Respiratory: Yes: Diminished Gastrointestinal: Yes: Normal Bowel Sounds, Soft. No: Distention, Tenderness Breast(s): Yes: Left, Mass (tender+), Nipple Inversion, Skin Changes (ecchymotic ) Edema: No Labs: CBC, BMP 09/22/16 06:45 09/22/16 06:45 INR, PTT INR 1.20 (0.82-1.09) H 09/17/16 12:22 Problem List - Problems (1) Dialysis AV fistula infection Code(s): T82.7XXA - INFECT/INFLM REACT D/T OTH CARDI/VASC DEV/IMPLNT/GRFT, INIT Qualifiers: Encounter type: initial encounter Qualified Code(s): T82.7XXA - Infection and inflammatory reaction due to other cardiac and vascular devices, implants and grafts, initial encounter (2) ESRD on hemodialysis Code(s): N18.6 - END STAGE RENAL DISEASE Z99.2 - DEPENDENCE ON RENAL DIALYSIS (3) Diabetes Code(s): E11.9 - TYPE 2 DIABETES MELLITUS WITHOUT COMPLICATIONS Qualifiers: Diabetes mellitus type: type 1 Diabetes mellitus complication status: with circulatory complication Diabetes mellitus complication detail: with other circulatory complications Qualified Code(s): E10.59 - Type 1 diabetes mellitus with other circulatory complications (4) Steal syndrome dialysis vascular access Code(s): T82.898A - OTH COMPLICATION OF VASCULAR PROSTH DEV/GRFT, INIT Qualifiers: Encounter type: subsequent encounter Qualified Code(s): T82.898D - Other specified complication of vascular prosthetic devices, implants and grafts , subsequent encounter (5) Breast pain, left Code(s): N64.4 - MASTODYNIA Assessment/Plan PLAN -- Ecoli in wound -- iv antibiotics per ID -- wound care -- breast sono done- spoke with radiologist- has microcalcifications-- will need a mammogram -- Breast surgeon eval- spoke with Dr Suarez -- dialysis per Renal --- monitor glucose -- continue with meds
--- NOTE | 2016-09-22 11:46 | PN ---
Progress Note (short form) - Note Progress Note: Renal Follow up for ESRD Pt seen and examined at the bedside has some pain in the lower abd no sob, chest pain, fever or chills Vital Signs Temperature 99.1 F 09/22/16 09:27 Pulse Rate 58 L 09/22/16 09:27 Respiratory Rate 18 09/22/16 09:27 Blood Pressure 129/90 09/22/16 09:27 O2 Sat by Pulse Oximetry (%) 91 L 09/21/16 21:00 Intake & Output 09/19/16 09/20/16 09/21/16 09/22/16 23:59 23:59 23:59 23:59 Intake Total 1040 910 900 100 Balance 1040 910 900 100 Weight 211 lb 12.8 oz 214 lb 4 oz 215 lb Gen: NAD, awake and alert HEENT: NC/AT, MM No JVD CVS: RRR, no M/R Lungs:CTA no rales or wheeze Abd: soft NT/ND Ext: No edema, clubbing or cyanosis Neuro: AAOx3, no focal defects CBC, BMP 09/22/16 06:45 09/22/16 06:45 Current Medications Acetaminophen/Codeine Phosphate (Tylenol # 3 -) 1 tab PO Q4H PRN PRN Reason: FEVER OR PAIN Last Admin: 09/21/16 14:50 Dose: 1 tab Albuterol Sulfate (Ventolin 0.083% Nebulizer Soln -) 1 amp NEB Q4H PRN PRN Reason: SHORT OF BREATH/WHEEZING Alprazolam (Xanax -) 0.25 mg PO BID [facility] Last Admin: 09/22/16 09:22 Dose: 0.25 mg Calamine (Calamine 8% Topical Lotion -) 1 applic TP QID PRN PRN Reason: FOR ITCHING Calcium Acetate (Phoslo -) 667 mg PO TIDCM [facility] Last Admin: 09/22/16 08:45 Dose: 667 mg Clopidogrel Bisulfate (Plavix -) 75 mg PO DAILY [facility] Last Admin: 09/22/16 09:23 Dose: 75 mg Cyanocobalamin (Vitamin B12 -) 100 mcg PO DAILY [facility] Last Admin: 09/22/16 09:24 Dose: 100 mcg Diphenhydramine HCl (Benadryl -) 25 mg PO Q6H PRN PRN Reason: FOR ITCHING Last Admin: 09/21/16 12:44 Dose: 25 mg Docusate Sodium (Colace -) 100 mg PO TID [facility] Last Admin: 09/22/16 06:51 Dose: 100 mg Heparin Sodium (Porcine) (Heparin -) 5,000 unit SQ BID [facility] Last Admin: 09/22/16 09:24 Dose: Not Given Insulin Aspart (Novolog Vial Sliding Scale -) 1 vial SQ ACHS [facility] PRN Reason: Protocol Last Admin: 09/22/16 06:42 Dose: Not Given Insulin Detemir (Levemir Vial) 18 units SQ HS [facility] Last Admin: 09/21/16 22:14 Dose: 18 units Insulin Detemir (Levemir Vial) 20 units SQ ACBK [facility] Last Admin: 09/22/16 06:51 Dose: 20 units Ketorolac Tromethamine (Toradol Injection -) 30 mg IVPUSH NOW ONE Stop: 09/22/16 14:44 Last Admin: 09/17/16 17:27 Dose: Not Given Metoprolol Succinate (Toprol Xl -) 12.5 mg PO DAILY [facility] Last Admin: 09/22/16 09:22 Dose: 12.5 mg Pantoprazole Sodium (Protonix -) 40 mg PO DAILY [facility] Last Admin: 09/22/16 09:23 Dose: 40 mg Senna (Senna -) 2 tab PO HS PRN PRN Reason: CONSTIPATION Last Admin: 09/22/16 06:51 Dose: 2 tab A/P 71 year old woman with PMhx of ESRD on HD (MWF), PVD, IDDM presents with AVG site infection. Pt s/p HeRO graft placement in July in the right ARM complicated by graft dislodgement and hematoma formation. #ESRD on HD with Infected HeRO graft site s/p Removal of HeRO graft s/p dialysis yesterday Next dialysis planned for tomorrow via tunneled catheter Will continue IV Vanco and Gent post HD Check Vanco levels pre HD #Breast lesion/tenderness US of breast to be done today Wan Cruz DO
--- NOTE | 2016-09-22 13:17 | CONSULT ---
Consult Consult Specialty:: Surgery Referred by:: Alina Pascual Reason for Consultation:: Left breast mass. - History of Present Illness Chief Complaint: C/O Pain in left breast for the past 2 weeks. She says , that the pain was felt after her breast was squeezed between her left arm and body. She has had a mammogram about 3 years ago. - History Source History Provided By: Patient Limitations to Obtaining History: No Limitations - Past Medical History Cardio/Vascular: Yes: CAD, CHF, HTN, Hyperlipdemia, Other (coronary stents x 3) Pulmonary: Yes: COPD Renal/: Yes: Renal Failure, Hemodialysis. No: Hematuria ...: No Infectious Disease: Yes: MRSA Musculoskeletal: Yes: Other (R rotator cuff repair) Endocrine: Yes: Diabetes Mellitus, Hypothyroidism Additional Medical History: Steal syndrome , PVD- s//p surgery - Past Surgical History Past Surgical History: Yes: Amputation (Rt AKA, left TMA), Hysterectomy ( thyroid surgery), Stent - Alcohol/Substance Use Hx Alcohol Use: No - Smoking History Smoking history: Never smoked Have you smoked in the past 12 months: No Aproximately how many cigarettes per day: 0 - Social History ADL: Independent History of Recent Travel: No Home Medications - Allergies Allergies/Adverse Reactions: Allergies Allergy/AdvReac Type Severity Reaction Status Date / Time Sulfa (Sulfonamide Allergy Unknown Verified 09/17/16 11:52 Antibiotics) [Sulfa(Sulfonamide Antibiotics)] amoxicillin trihydrate AdvReac Severe Verified 09/17/16 11:52 [From Augmentin] potassium clavulanate AdvReac Severe Verified 09/17/16 11:52 [From Augmentin] tape AdvReac Severe Uncoded 09/17/16 11:52 - Home Medications Home Medications: Ambulatory Orders Insulin (Levemir) [Levemir Flexpen -] 18 units SQ HS 08/20/14 Aspirin [ASA -] 81 mg PO DAILY #90 tab.chew 08/29/14 Clopidogrel Bisulfate [Plavix -] 75 mg PO DAILY #90 tablet 08/29/14 Cyanocobalamin [Vitamin B12 -] 100 mcg PO DAILY #90 tablet 08/29/14 Glipizide 5 mg PO DAILY #90 tablet 08/29/14 Insulin (Levemir) [Levemir Flexpen -] 20 units SQ AM #90 pen 08/29/14 Pantoprazole Sodium [Protonix -] 40 mg PO DAILY #30 tablet.ec 08/29/14 Calcium Acetate [Phoslo -] 667 mg PO TID 04/06/16 Levothyroxine [Synthroid -] 213 mcg PO DAILY 08/10/16 Levothyroxine [Synthroid -] 250 mcg PO ASDIR 08/10/16 Metoprolol Succinate [Toprol XL -] 12.5 mg PO DAILY 08/10/16 Acetaminophen W/ Codeine #3 [Tylenol # 3 -] 1 tab PO Q4H PRN #90 tablet MDD 4 Alprazolam [Xanax] 0.25 mg PO DAILY PRN #30 tablet MDD 1 08/14/16 Oxycodone HCl [Roxicodone -] 5 mg PO Q6H #20 tablet MDD 6 08/14/16 Physical Exam Vital Signs: Vital Signs Temperature 99.1 F 09/22/16 09:27 Pulse Rate 58 L 09/22/16 09:27 Respiratory Rate 18 09/22/16 09:27 Blood Pressure 129/90 09/22/16 09:27 O2 Sat by Pulse Oximetry (%) 91 L 09/21/16 21:00 Breast(s): No: WNL, Left, Right, Breast Implants, Dimpling, Discharge from Nipple, Gynecomastia (Right breast is normal. The left breast shows some erythematous changes around the areola of the left breast with skin excoriation . The nipple and skin are normal. There is a tender mass in the outer aspect of the left breast, extending towards the nipple areolar complex, which is indurated , tender, and ill defined. Both axillae are normal.), Mass, Nipple Inversion, Skin Changes, Other Labs: CBC, BMP 09/22/16 06:45 09/22/16 06:45 Imaging - Results Ultrasound: Pending (Mammogram pending.) Problem List - Problems (1) Breast mass, left Code(s): N63 - UNSPECIFIED LUMP IN BREAST (2) Breast pain, left Code(s): N64.4 - MASTODYNIA (3) ESRD on hemodialysis Code(s): N18.6 - END STAGE RENAL DISEASE Z99.2 - DEPENDENCE ON RENAL DIALYSIS (4) Diabetes Code(s): E11.9 - TYPE 2 DIABETES MELLITUS WITHOUT COMPLICATIONS Qualifiers: Diabetes mellitus type: type 1 Diabetes mellitus complication status: with circulatory complication Diabetes mellitus complication detail: with other circulatory complications Qualified Code(s): E10.59 - Type 1 diabetes mellitus with other circulatory complications Assessment/Plan Impression : Painful left breast mass, with skin excoriation . R/O traumatic, vs. neoplasm. Breast imaging is in progress. Will plan management after breast imaging.
[2016-09-22] MEDS ORDERED: SODIUM PHOSPHATE/NA BIPHOS 133 ML ENEMA PR ONE (13:42)
--- NOTE | 2016-09-22 14:24 | PN ---
Progress Note (short form) - Note Progress Note: Vascular surgery Patient seen and examined. Patient states she is feeling a little better today , not having much pain in her right arm. Last Vital Signs Temp Pulse Resp BP Pulse Ox 99.1 F 58 L 18 129/90 91 L 09/22/16 09:27 09/22/16 09:27 09/22/16 09:27 09/22/16 09:27 09/21/16 21:00 CBC, BMP 09/22/16 06:45 09/22/16 06:45 PE: Gen: NAD, resting comfortably in bed RUE: 3 open wounds 1x2 cm, 2x2 cm, and 4x3 cm wound next to axilla, minimal drainage, nonerythematous, fibrinous material noted and lightly mechanically debrided, wounds irrigated with 50% NS/peroxide, packed iodoform and dressing replaced. Permacath noted in the right upper chest. Problem List - Problems (1) Dialysis AV fistula infection Assessment/Plan: s/p removal of infected Hero graft Wound care done this afternoon, irrigation and iodoform packing Continuing abx Code(s): T82.7XXA - INFECT/INFLM REACT D/T OTH CARDI/VASC DEV/IMPLNT/GRFT, INIT Qualifiers: Encounter type: initial encounter Qualified Code(s): T82.7XXA - Infection and inflammatory reaction due to other cardiac and vascular devices, implants and grafts, initial encounter
[2016-09-22] MEDS: ACETAMINOPHEN WITH CODEINE 300MG/30MG TABLET PO PRN (14:38)
--- NOTE | 2016-09-22 17:15 | PN ---
Progress Note, Physician History of Present Illness: Underwent RUE wound debridement, tolerated HD via permacath. Denies chest pain or dyspnea. Had left breast U/S. - Current Medication List Current Medications: Active Medications Acetaminophen/Codeine Phosphate (Tylenol # 3 -) 1 tab PO Q4H PRN PRN Reason: FEVER OR PAIN Last Admin: 09/22/16 14:38 Dose: 1 tab Albuterol Sulfate (Ventolin 0.083% Nebulizer Soln -) 1 amp NEB Q4H PRN PRN Reason: SHORT OF BREATH/WHEEZING Alprazolam (Xanax -) 0.25 mg PO BID [facility] Last Admin: 09/22/16 09:22 Dose: 0.25 mg Calamine (Calamine 8% Topical Lotion -) 1 applic TP QID PRN PRN Reason: FOR ITCHING Calcium Acetate (Phoslo -) 667 mg PO TIDCM [facility] Last Admin: 09/22/16 13:37 Dose: 667 mg Clopidogrel Bisulfate (Plavix -) 75 mg PO DAILY [facility] Last Admin: 09/22/16 09:23 Dose: 75 mg Cyanocobalamin (Vitamin B12 -) 100 mcg PO DAILY [facility] Last Admin: 09/22/16 09:24 Dose: 100 mcg Diphenhydramine HCl (Benadryl -) 25 mg PO Q6H PRN PRN Reason: FOR ITCHING Last Admin: 09/21/16 12:44 Dose: 25 mg Docusate Sodium (Colace -) 100 mg PO TID [facility] Last Admin: 09/22/16 13:37 Dose: 100 mg Epoetin Sky (Epogen -) 10,000 units IVPUSH ONCE ONE Stop: 09/22/16 11:47 Heparin Sodium (Porcine) (Heparin -) 5,000 unit SQ BID [facility] Last Admin: 09/22/16 09:24 Dose: Not Given Gentamicin Sulfate/Sodium Chloride (Garamycin 80 Mg Premixed Ivpb -) 100 mls @ 100 mls/hr IVPB ONCE ONE Stop: 09/23/16 09:59 Vancomycin HCl 1,000 mg/ (Dextrose) 250 mls @ 250 mls/hr IVPB ONCE ONE Stop: 09/23/16 09:59 Insulin Aspart (Novolog Vial Sliding Scale -) 1 vial SQ ACHS [facility] PRN Reason: Protocol Last Admin: 09/22/16 16:53 Dose: Not Given Insulin Detemir (Levemir Vial) 18 units SQ HS [facility] Last Admin: 09/21/16 22:14 Dose: 18 units Insulin Detemir (Levemir Vial) 20 units SQ ACBK [facility] Last Admin: 09/22/16 06:51 Dose: 20 units Metoprolol Succinate (Toprol Xl -) 12.5 mg PO DAILY [facility] Last Admin: 09/22/16 09:22 Dose: 12.5 mg Pantoprazole Sodium (Protonix -) 40 mg PO DAILY [facility] Last Admin: 09/22/16 09:23 Dose: 40 mg Senna (Senna -) 2 tab PO HS PRN PRN Reason: CONSTIPATION Last Admin: 09/22/16 06:51 Dose: 2 tab - Objective Vital Signs: Vital Signs Temperature 99.1 F 09/22/16 09:27 Pulse Rate 58 L 09/22/16 09:27 Respiratory Rate 18 09/22/16 09:27 Blood Pressure 129/90 09/22/16 09:27 O2 Sat by Pulse Oximetry (%) 91 L 09/22/16 09:00 Constitutional: Yes: No Distress, Calm Neck: Yes: Supple Cardiovascular: Yes: Regular Rate and Rhythm Respiratory: Yes: Regular, Diminished Gastrointestinal: Yes: Normal Bowel Sounds, Soft Extremities: Yes: Amputation Edema: No Labs: CBC, BMP 09/22/16 06:45 09/22/16 06:45 INR, PTT INR 1.20 (0.82-1.09) H 09/17/16 12:22 Problem List - Problems (1) Dialysis AV fistula infection Code(s): T82.7XXA - INFECT/INFLM REACT D/T OTH CARDI/VASC DEV/IMPLNT/GRFT, INIT Qualifiers: Encounter type: initial encounter Qualified Code(s): T82.7XXA - Infection and inflammatory reaction due to other cardiac and vascular devices, implants and grafts, initial encounter (2) ESRD on hemodialysis Code(s): N18.6 - END STAGE RENAL DISEASE Z99.2 - DEPENDENCE ON RENAL DIALYSIS (3) Renal dialysis device, implant, or graft complication Code(s): T82.9XXA - UNSP COMP OF CARDIAC AND VASCULAR PROSTH DEV/GRFT, INIT Qualifiers: Encounter type: subsequent encounter Qualified Code(s): T82.9XXD - Unspecified complication of cardiac and vascular prosthetic device, implant and graft, subsequent encounter (4) Diabetes Code(s): E11.9 - TYPE 2 DIABETES MELLITUS WITHOUT COMPLICATIONS Qualifiers: Diabetes mellitus type: type 1 Diabetes mellitus complication status: with circulatory complication Diabetes mellitus complication detail: with other circulatory complications Qualified Code(s): E10.59 - Type 1 diabetes mellitus with other circulatory complications (5) S/P transmetatarsal amputation of foot Code(s): Z89.439 - ACQUIRED ABSENCE OF UNSPECIFIED FOOT Qualifiers: Laterality: left Qualified Code(s): Z89.432 - Acquired absence of left foot (6) Steal syndrome dialysis vascular access Code(s): T82.898A - OT COMPLICATION OF VASCULAR PROSTH DEV/GRFT, INIT Qualifiers: Encounter type: subsequent encounter Qualified Code(s): T82.898D - Other specified complication of vascular prosthetic devices, implants and grafts , subsequent encounter (7) Anemia Code(s): D64.9 - ANEMIA, UNSPECIFIED Qualifiers: Other causes of anemia: chronic disease, kidney Assessment/Plan 1. Infected RUE HeRO post removal, wound debridement, PC placement 2. PAD s/p right BKA, left TMA 3. CAD s/p multivessel PCI (stent), angina pectoris 4. LV diastolic dysfunction 5. ESRD on HD 6. Type 2 DM 7. Hyperlipidemia 8. HTN/HCVD 9. Hypothyroidism with abnormal TSH and normal FT4 10. Anemia of chronic kidney disease 11. Left breast mass r/o neoplasm PLAN: 1. Continue Toprol XL 12.5 qd and Clopidogrel 75 qd 2. HD per renal, complete abx course, wound care 3. F/u breast U/S 4. DVT and GI prophylaxis
[2016-09-22] MEDS: diphenhydrAMINE HCL 25 MG CAPSULE (FP) PO PRN (21:46)
[2016-09-23] MEDS: ACETAMINOPHEN WITH CODEINE 300MG/30MG TABLET PO PRN (00:54)
[2016-09-23] MEDS: DOCUSATE SODIUM 100 MG CAPSULE (FP) PO SCH ×3 (06:35→21:24)
[2016-09-23] MEDS: INSULIN DETEMIR 100 UNITS/ML MDV SQ SCH ×2 (06:36→21:24)
[2016-09-23] MEDS: INSULIN SLIDING SCALE (NOVOLOG) 1 VIAL SQ SCH ×4 (06:40→21:25)
[2016-09-23] MEDS: CALCIUM ACETATE 667 MG CAPSULE (FP) PO SCH ×3 (08:49→17:51)
[2016-09-23] MEDS ORDERED: VANCOMYCIN 1,000 MG in DEXTROSE 5%-WATER - 250 ML IVPB ONE (09:00)
[2016-09-23 09:28] LABS: MCH 27.9 pg (25.7-33.7); MCHC 31.3 g/dl (32.0-36.0); MEAN CELL VOLUME 89.2 fl (80-96); MEAN PLT VOLUME 7.8 fl (7.5-11.1); PLATELET COUNT 432 K/MM3 (134-434); RDW 16.7 % (11.6-15.6); WHITE BLOOD COUNT 9.4 K/mm3 (4.0-10.0)
[2016-09-23 09:45] LABS: ALBUMIN 2.4 g/dl (3.4-5.0); BILIRUBIN,TOTAL 0.4 mg/dL (0.2-1.0); CALCIUM 8.9 mg/dL (8.5-10.1); CREATININE 6.7 mg/dL (0.55-1.02); TOT PROT 6.4 g/dl (6.4-8.2)
[2016-09-23] MEDS: METOPROLOL SUCCINATE 25 MG TAB.SR.24H (FP) PO SCH ×2 (10:15→18:13)
[2016-09-23] MEDS: CLOPIDOGREL BISULFATE 75 MG TABLET (FP) PO SCH ×2 (10:55→17:52)
[2016-09-23] MEDS: HEPARIN NA (PORCINE) 5,000 UNITS/ML 1ML VIAL SQ SCH ×2 (11:22→21:24)
--- NOTE | 2016-09-23 11:22 | PN ---
Progress Note, Physician Chief Complaint: pt examined in dialysis has pain in left breast also has pain in lower abdomen where she received Heparin sc - Current Medication List Current Medications: Active Medications Albuterol Sulfate (Ventolin 0.083% Nebulizer Soln -) 1 amp NEB Q4H PRN PRN Reason: SHORT OF BREATH/WHEEZING Alprazolam (Xanax -) 0.25 mg PO BID [facility] Last Admin: 09/22/16 21:46 Dose: 0.25 mg Calamine (Calamine 8% Topical Lotion -) 1 applic TP QID PRN PRN Reason: FOR ITCHING Calcium Acetate (Phoslo -) 667 mg PO TIDCM [facility] Last Admin: 09/23/16 08:49 Dose: 667 mg Clopidogrel Bisulfate (Plavix -) 75 mg PO DAILY [facility] Last Admin: 09/22/16 09:23 Dose: 75 mg Cyanocobalamin (Vitamin B12 -) 100 mcg PO DAILY [facility] Last Admin: 09/22/16 09:24 Dose: 100 mcg Diphenhydramine HCl (Benadryl -) 25 mg PO Q6H PRN PRN Reason: FOR ITCHING Last Admin: 09/22/16 21:46 Dose: 25 mg Docusate Sodium (Colace -) 100 mg PO TID [facility] Last Admin: 09/23/16 06:35 Dose: 100 mg Epoetin Sky (Procrit -) 10,000 unit IVPUSH ONCE ONE Stop: 09/23/16 12:01 Heparin Sodium (Porcine) (Heparin -) 5,000 unit SQ BID [facility] Last Admin: 09/22/16 21:46 Dose: 5,000 unit Gentamicin Sulfate/Sodium Chloride (Garamycin 80 Mg Premixed Ivpb -) 100 mls @ 100 mls/hr IVPB ONCE ONE Stop: 09/23/16 12:59 Vancomycin HCl 250 mg/ (Dextrose) 250 mls @ 250 mls/hr IVPB ONCE ONE Stop: 09/23/16 12:19 Insulin Aspart (Novolog Vial Sliding Scale -) 1 vial SQ ACHS [facility] PRN Reason: Protocol Last Admin: 09/23/16 06:40 Dose: Not Given Insulin Detemir (Levemir Vial) 18 units SQ HS [facility] Last Admin: 09/22/16 21:58 Dose: 18 units Insulin Detemir (Levemir Vial) 20 units SQ ACBK [facility] Last Admin: 09/23/16 06:36 Dose: 20 units Metoprolol Succinate (Toprol Xl -) 12.5 mg PO DAILY [facility] Last Admin: 09/22/16 09:22 Dose: 12.5 mg Pantoprazole Sodium (Protonix -) 40 mg PO DAILY [facility] Last Admin: 09/22/16 09:23 Dose: 40 mg Senna (Senna -) 2 tab PO HS PRN PRN Reason: CONSTIPATION Last Admin: 09/22/16 06:51 Dose: 2 tab - Objective Vital Signs: Vital Signs Temperature 98.5 F 09/23/16 06:00 Pulse Rate 44 L 09/23/16 06:00 Respiratory Rate 20 09/23/16 06:00 Blood Pressure 161/67 09/23/16 06:00 O2 Sat by Pulse Oximetry (%) 92 L 09/22/16 21:00 Constitutional: Yes: No Distress, Calm Cardiovascular: Yes: Regular Rate and Rhythm Respiratory: Yes: Diminished Gastrointestinal: Yes: Normal Bowel Sounds, Soft, Tenderness (light palpation- no mass). No: Distention Edema: No Labs: CBC, BMP 09/23/16 07:00 09/23/16 07:00 INR, PTT INR 1.20 (0.82-1.09) H 09/17/16 12:22 Problem List - Problems (1) Dialysis AV fistula infection Code(s): T82.7XXA - INFECT/INFLM REACT D/T OTH CARDI/VASC DEV/IMPLNT/GRFT, INIT Qualifiers: Encounter type: initial encounter Qualified Code(s): T82.7XXA - Infection and inflammatory reaction due to other cardiac and vascular devices, implants and grafts, initial encounter (2) ESRD on hemodialysis Code(s): N18.6 - END STAGE RENAL DISEASE Z99.2 - DEPENDENCE ON RENAL DIALYSIS (3) Diabetes Code(s): E11.9 - TYPE 2 DIABETES MELLITUS WITHOUT COMPLICATIONS Qualifiers: Diabetes mellitus type: type 1 Diabetes mellitus complication status: with circulatory complication Diabetes mellitus complication detail: with other circulatory complications Qualified Code(s): E10.59 - Type 1 diabetes mellitus with other circulatory complications (4) Steal syndrome dialysis vascular access Code(s): T82.898A - OTH COMPLICATION OF VASCULAR PROSTH DEV/GRFT, INIT Qualifiers: Encounter type: subsequent encounter Qualified Code(s): T82.898D - Other specified complication of vascular prosthetic devices, implants and grafts , subsequent encounter (5) Breast pain, left Code(s): N64.4 - MASTODYNIA Assessment/Plan PLAN -- Ecoli in wound -- iv antibiotics per ID -- wound care -- breast sono done- spoke with radiologist- has microcalcifications-- will need a mammogram-- scheduled for Oct 01 as pt unable to sit in wheelchair and they need her upright -- warm compresses to left breast -- possibly traumatic cause for left breast induration and pain vs ? inflammatory CA -- Breast surgeon aaron- spoke with Dr Suarez -- dialysis per Renal --- monitor glucose -- continue with meds
[2016-09-23] MEDS: CYANOCOBALAMIN (VITAMIN B-12) 100 MCG TABLET PO SCH (11:23)
[2016-09-23] MEDS: ALPRAZolam 0.25 MG TABLET PO SCH ×2 (11:23→21:23)
[2016-09-23] MEDS: PANTOPRAZOLE 40 MG TABLET (FP) PO SCH (11:23)
[2016-09-23] MEDS ORDERED: VANCOMYCIN 250 MG in DEXTROSE 5%-WATER - 100 ML IVPB ONE (12:00)
[2016-09-23] MEDS ORDERED: EPOETIN ALFA 10,000 UNIT/1 ML VIAL IVPUSH ONE (12:00)
[2016-09-23] MEDS ORDERED: GENTAMICIN 80 MG PREMIXED IVPB 100 ML IVPB ONE (12:00)
--- NOTE | 2016-09-23 12:08 | PN ---
Progress Note, Physician History of Present Illness: Undergoing HD via permacath. Denies chest pain or dyspnea. Left breast U/S negative for lesion or abscess. RUE pain improved post-debridement of wound. - Current Medication List Current Medications: Active Medications Alprazolam (Xanax -) 0.25 mg PO BID [facility] Last Admin: 09/23/16 11:23 Dose: 0.25 mg Calamine (Calamine 8% Topical Lotion -) 1 applic TP QID PRN PRN Reason: FOR ITCHING Calcium Acetate (Phoslo -) 667 mg PO TIDCM [facility] Last Admin: 09/23/16 08:49 Dose: 667 mg Clopidogrel Bisulfate (Plavix -) 75 mg PO DAILY [facility] Last Admin: 09/22/16 09:23 Dose: 75 mg Cyanocobalamin (Vitamin B12 -) 100 mcg PO DAILY [facility] Last Admin: 09/23/16 11:23 Dose: 100 mcg Diphenhydramine HCl (Benadryl -) 25 mg PO Q6H PRN PRN Reason: FOR ITCHING Last Admin: 09/22/16 21:46 Dose: 25 mg Docusate Sodium (Colace -) 100 mg PO TID [facility] Last Admin: 09/23/16 06:35 Dose: 100 mg Heparin Sodium (Porcine) (Heparin -) 5,000 unit SQ BID [facility] Last Admin: 09/23/16 11:22 Dose: Not Given Gentamicin Sulfate/Sodium Chloride (Garamycin 80 Mg Premixed Ivpb -) 100 mls @ 100 mls/hr IVPB ONCE ONE Stop: 09/23/16 12:59 Vancomycin HCl 250 mg/ (Dextrose) 100 mls @ 133.333 mls/hr IVPB ONCE ONE Stop: 09/23/16 12:44 Insulin Aspart (Novolog Vial Sliding Scale -) 1 vial SQ ACHS [facility] PRN Reason: Protocol Last Admin: 09/23/16 06:40 Dose: Not Given Insulin Detemir (Levemir Vial) 18 units SQ HS [facility] Last Admin: 09/22/16 21:58 Dose: 18 units Insulin Detemir (Levemir Vial) 20 units SQ ACBK [facility] Last Admin: 09/23/16 06:36 Dose: 20 units Metoprolol Succinate (Toprol Xl -) 12.5 mg PO DAILY [facility] Last Admin: 12/28/16 09:22 Dose: 12.5 mg Pantoprazole Sodium (Protonix -) 40 mg PO DAILY [facility] Last Admin: 09/23/16 11:23 Dose: 40 mg Senna (Senna -) 2 tab PO HS PRN PRN Reason: CONSTIPATION Last Admin: 09/22/16 06:51 Dose: 2 tab - Objective Vital Signs: Vital Signs Temperature 98.2 F 09/23/16 10:35 Pulse Rate 54 L 09/23/16 11:40 Respiratory Rate 18 09/23/16 11:40 Blood Pressure 162/97 09/23/16 11:40 O2 Sat by Pulse Oximetry (%) 92 L 09/22/16 21:00 Constitutional: Yes: No Distress, Calm Neck: Yes: Supple Cardiovascular: Yes: Regular Rate and Rhythm Respiratory: Yes: Regular, Diminished Gastrointestinal: Yes: Normal Bowel Sounds, Soft Extremities: Yes: Amputation Edema: No Labs: CBC, BMP 09/23/16 07:00 09/23/16 07:00 INR, PTT INR 1.20 (0.82-1.09) H 09/17/16 12:22 Problem List - Problems (1) Dialysis AV fistula infection Code(s): T82.7XXA - INFECT/INFLM REACT D/T OTH CARDI/VASC DEV/IMPLNT/GRFT, INIT Qualifiers: Qualified Code(s): T82.7XXA - Infection and inflammatory reaction due to other cardiac and vascular devices, implants and grafts, initial encounter (2) ESRD on hemodialysis Code(s): N18.6 - END STAGE RENAL DISEASE Z99.2 - DEPENDENCE ON RENAL DIALYSIS (3) Renal dialysis device, implant, or graft complication Code(s): T82.9XXA - UNSP COMP OF CARDIAC AND VASCULAR PROSTH DEV/GRFT, INIT Qualifiers: Qualified Code(s): T82.9XXD - Unspecified complication of cardiac and vascular prosthetic device, implant and graft, subsequent encounter (4) Diabetes Code(s): E11.9 - TYPE 2 DIABETES MELLITUS WITHOUT COMPLICATIONS Qualifiers: Qualified Code(s): E10.59 - Type 1 diabetes mellitus with other circulatory complications (5) S/P transmetatarsal amputation of foot Code(s): Z89.439 - ACQUIRED ABSENCE OF UNSPECIFIED FOOT Qualifiers: Qualified Code(s): Z89.432 - Acquired absence of left foot (6) Steal syndrome dialysis vascular access Code(s): T82.898A - OTH COMPLICATION OF VASCULAR PROSTH DEV/GRFT, INIT Qualifiers: Qualified Code(s): T82.898D - Other specified complication of vascular prosthetic devices, implants and grafts, subsequent encounter (7) Anemia Code(s): D64.9 - ANEMIA, UNSPECIFIED Qualifiers: Qualified Code(s): N18.9 - Chronic kidney disease, unspecified; D63.1 - Anemia in chronic kidney disease Assessment/Plan 09/22/2016 Normal LV fxn, mild TR, no definitive vegetation 1. Infected RUE HeRO post removal, wound debridement, PC placement 2. PAD s/p right BKA, left TMA 3. CAD s/p multivessel PCI (stent), angina pectoris 4. LV diastolic dysfunction 5. ESRD on HD 6. Type 2 DM 7. Hyperlipidemia 8. HTN/HCVD 9. Hypothyroidism with abnormal TSH and normal FT4 10. Anemia of chronic kidney disease 11. Left breast mass r/o neoplasm PLAN: 1. Continue Toprol XL 12.5 qd and Clopidogrel 75 qd 2. HD per renal, complete abx course, wound care 3. F/u mammogram 10/01/2016 4. DVT and GI prophylaxis
--- NOTE | 2016-09-23 12:18 | PN ---
Progress Note (short form) - Note Progress Note: PT states that her arm pain has improved. She is to have dialysis today. Vital Signs Period Temp Pulse Resp BP Sys/Cordero Pulse Ox Last 24 Hr 98.2 F-98.8 F 44-55 18-20 116-194/50-97 92 PE: GEN: Appears comfortable RUE: Decreased swelling. Wound with necrotic tissue at base, otherwise pink granulating tissue. Nectoric tissue debrided today and repacked wounds with wet to dry after cleaning with peroxide/water solution. No erythema to skin. Chest: incision with sutures clean/dry. CBC, BMP 09/23/16 07:00 09/23/16 07:00 left breast ultrasound: no abscess/solid or cystic masses seen. Problem List - Problems (1) ESRD on hemodialysis Assessment/Plan: s/p HERO graft removal for infection S/w Dr. Hilton, continue with local wound care will change to irrigate with peroxide/NS and pack with wet to dry Cont IV abx as per ID Code(s): N18.6 - END STAGE RENAL DISEASE Z99.2 - DEPENDENCE ON RENAL DIALYSIS
[2016-09-23] MEDS ORDERED: INSULIN (NOVOLOG) ASPART 100 UNITS/ML 10ML VIAL ONE ×2 (12:44→21:07)
--- NOTE | 2016-09-23 14:09 | PN ---
Progress Note (short form) - Note Progress Note: Renal Follow up for ESRD Pt seen and examined during dialysis BP stable catheter with good function no sob, chest pain Goal UF is 2.5L Vital Signs Temperature 98.2 F 09/23/16 10:35 Pulse Rate 59 L 09/23/16 13:10 Respiratory Rate 18 09/23/16 13:10 Blood Pressure 157/65 09/23/16 13:10 O2 Sat by Pulse Oximetry (%) 92 L 09/22/16 21:00 Intake & Output 09/20/16 09/21/16 09/22/16 09/23/16 23:59 23:59 23:59 23:59 Intake Total 910 900 930 0 Balance 910 900 930 0 Weight 211 lb 12.8 oz 214 lb 4 oz 215 lb 209 lb 8 oz Gen: NAD, awake and alert HEENT: NC/AT, MM No JVD CVS: RRR, no M/R Lungs:CTA no rales or wheeze Abd: soft NT/ND Ext: No edema, clubbing or cyanosis Neuro: AAOx3, no focal defects CBC, BMP 09/23/16 07:00 09/23/16 07:00 Current Medications Alprazolam (Xanax -) 0.25 mg PO BID [facility] Last Admin: 09/23/16 11:23 Dose: 0.25 mg Calamine (Calamine 8% Topical Lotion -) 1 applic TP QID PRN PRN Reason: FOR ITCHING Calcium Acetate (Phoslo -) 667 mg PO TIDCM [facility] Last Admin: 09/23/16 13:05 Dose: 667 mg Clopidogrel Bisulfate (Plavix -) 75 mg PO DAILY [facility] Last Admin: 09/22/16 09:23 Dose: 75 mg Cyanocobalamin (Vitamin B12 -) 100 mcg PO DAILY [facility] Last Admin: 09/23/16 11:23 Dose: 100 mcg Diphenhydramine HCl (Benadryl -) 25 mg PO Q6H PRN PRN Reason: FOR ITCHING Last Admin: 09/22/16 21:46 Dose: 25 mg Docusate Sodium (Colace -) 100 mg PO TID [facility] Last Admin: 09/23/16 13:07 Dose: 100 mg Heparin Sodium (Porcine) (Heparin -) 5,000 unit SQ BID [facility] Last Admin: 09/23/16 11:22 Dose: Not Given Insulin Aspart (Novolog Vial Sliding Scale -) 1 vial SQ ACHS [facility] PRN Reason: Protocol Last Admin: 09/23/16 13:05 Dose: 3 units Insulin Detemir (Levemir Vial) 18 units SQ HS [facility] Last Admin: 09/22/16 21:58 Dose: 18 units Insulin Detemir (Levemir Vial) 20 units SQ ACBK [facility] Last Admin: 09/23/16 06:36 Dose: 20 units Metoprolol Succinate (Toprol Xl -) 12.5 mg PO DAILY [facility] Last Admin: 09/22/16 09:22 Dose: 12.5 mg Pantoprazole Sodium (Protonix -) 40 mg PO DAILY [facility] Last Admin: 09/23/16 11:23 Dose: 40 mg Senna (Senna -) 2 tab PO HS PRN PRN Reason: CONSTIPATION Last Admin: 09/22/16 06:51 Dose: 2 tab A/P 71 year old woman with PMhx of ESRD on HD (MWF), PVD, IDDM presents with AVG site infection. Pt s/p HeRO graft placement in July in the right ARM complicated by graft dislodgement and hematoma formation. #ESRD on HD with Infected HeRO graft site s/p Removal of HeRO graft Tolerating HD well Continue IV Gent post HD Vanco level noted, will Redose 250mg IV Vanco today Check levels prior to next HD #Breast lesion/tenderness Us of breast noted no cyst/abcess + calcifications #Anemia Continue [place]ON with HD Wan Cruz DO
--- NOTE | 2016-09-23 15:51 | PN ---
Progress Note, Physician - Current Medication List Current Medications: Active Medications Alprazolam (Xanax -) 0.25 mg PO BID [facility] Last Admin: 09/23/16 11:23 Dose: 0.25 mg Calamine (Calamine 8% Topical Lotion -) 1 applic TP QID PRN PRN Reason: FOR ITCHING Calcium Acetate (Phoslo -) 667 mg PO TIDCM [facility] Last Admin: 09/23/16 13:05 Dose: 667 mg Clopidogrel Bisulfate (Plavix -) 75 mg PO DAILY [facility] Last Admin: 09/22/16 09:23 Dose: 75 mg Cyanocobalamin (Vitamin B12 -) 100 mcg PO DAILY [facility] Last Admin: 09/23/16 11:23 Dose: 100 mcg Diphenhydramine HCl (Benadryl -) 25 mg PO Q6H PRN PRN Reason: FOR ITCHING Last Admin: 09/22/16 21:46 Dose: 25 mg Docusate Sodium (Colace -) 100 mg PO TID [facility] Last Admin: 09/23/16 13:07 Dose: 100 mg Heparin Sodium (Porcine) (Heparin -) 5,000 unit SQ BID [facility] Last Admin: 09/23/16 11:22 Dose: Not Given Insulin Aspart (Novolog Vial Sliding Scale -) 1 vial SQ ACHS [facility] PRN Reason: Protocol Last Admin: 09/23/16 13:05 Dose: 3 units Insulin Detemir (Levemir Vial) 18 units SQ HS [facility] Last Admin: 09/22/16 21:58 Dose: 18 units Insulin Detemir (Levemir Vial) 20 units SQ ACBK [facility] Last Admin: 09/23/16 06:36 Dose: 20 units Metoprolol Succinate (Toprol Xl -) 12.5 mg PO DAILY [facility] Last Admin: 09/22/16 09:22 Dose: 12.5 mg Pantoprazole Sodium (Protonix -) 40 mg PO DAILY [facility] Last Admin: 09/23/16 11:23 Dose: 40 mg Senna (Senna -) 2 tab PO HS PRN PRN Reason: CONSTIPATION Last Admin: 09/22/16 06:51 Dose: 2 tab - Objective Vital Signs: Vital Signs Temperature 98.2 F 09/23/16 14:23 Pulse Rate 58 L 09/23/16 14:23 Respiratory Rate 18 09/23/16 14:23 Blood Pressure 145/45 09/23/16 14:23 O2 Sat by Pulse Oximetry (%) 92 L 09/22/16 21:00 Labs: CBC, BMP 09/23/16 07:00 09/23/16 07:00 INR, PTT INR 1.20 (0.82-1.09) H 09/17/16 12:22 Problem List - Problems (1) Breast mass, left Code(s): N63 - UNSPECIFIED LUMP IN BREAST (2) Breast pain, left Code(s): N64.4 - MASTODYNIA (3) ESRD on hemodialysis Code(s): N18.6 - END STAGE RENAL DISEASE Z99.2 - DEPENDENCE ON RENAL DIALYSIS (4) Diabetes Code(s): E11.9 - TYPE 2 DIABETES MELLITUS WITHOUT COMPLICATIONS Qualifiers: Diabetes mellitus type: type 1 Diabetes mellitus complication status: with circulatory complication Diabetes mellitus complication detail: with other circulatory complications Qualified Code(s): E10.59 - Type 1 diabetes mellitus with other circulatory complications Assessment/Plan Surgery: Patient is feeling better, has less pain in her left breast. She is unable to sit upright for a diagnostic mammogram. Left breast is less tender. She has no pain on examination. There is a poorly defined mass in upper outer quadrant , of left breast , between 1-2 oclock position. This is much smaller chicho yesterday. The scabs on the skin around the areola is dry, without drainage Ultrasound of the breast was discussed with radiologist. No definite mass seen , ? microcalcifications. Impression : ? Mastitis, ? traumatic , as patient gives history of trauma. She will need follow up and definitive imaging. The patient is aware. She will follow up with me in my office, if discharged to the [facility].
[2016-09-23] MEDS ORDERED: ACETAMINOPHEN WITH CODEINE 300MG/30MG TABLET PO PRN (18:12)
[2016-09-23] MEDS: BISACODYL 5 MG TABLET.DR (FP) PO SCH (18:35)
[2016-09-24] MEDS: DOCUSATE SODIUM 100 MG CAPSULE (FP) PO SCH ×3 (06:02→21:58)
[2016-09-24] MEDS: INSULIN SLIDING SCALE (NOVOLOG) 1 VIAL SQ SCH ×4 (06:02→21:59)
[2016-09-24] MEDS ORDERED: INSULIN (NOVOLOG) ASPART 100 UNITS/ML 10ML VIAL ONE (06:17)
[2016-09-24] MEDS: INSULIN DETEMIR 100 UNITS/ML MDV SQ SCH ×2 (06:52→21:58)
[2016-09-24] MEDS: CALCIUM ACETATE 667 MG CAPSULE (FP) PO SCH ×2 (08:31→12:03)
--- NOTE | 2016-09-24 08:33 | PN ---
Progress Note (short form) - Note Progress Note: SUBJECTIVE: Patient seen and examined. Chart reviewed. Chief complaint: Constipation. Denies pain. Afebrile. OBJECTIVE: Vital Signs - 8 hr 09/24/16 06:00 Temperature 98.4 F Pulse Rate 49 L Respiratory 20 Rate Blood Pressure 149/49 Intake & Output 09/23/16 09/24/16 09/24/16 23:59 07:59 15:59 Intake Total 850 100 Balance 850 100 Intake: Oral 850 100 Other: Voiding Method Diaper Diaper # Unmeasured Voids Void 0 Active Medications Acetaminophen/Codeine Phosphate (Tylenol # 3 -) 1 tab PO Q4H PRN Alprazolam (Xanax -) 0.25 mg PO BID [facility] Last Admin: 09/23/16 21:23 Dose: 0.25 mg Bisacodyl (Dulcolax -) 10 mg PO DAILY [facility] Last Admin: 09/23/16 18:35 Dose: 10 mg Calamine (Calamine 8% Topical Lotion -) 1 applic TP QID PRN PRN Reason: FOR ITCHING Calcium Acetate (Phoslo -) 667 mg PO TIDCM [facility] Last Admin: 09/24/16 08:31 Dose: 667 mg Clopidogrel Bisulfate (Plavix -) 75 mg PO DAILY [facility] Last Admin: 09/23/16 17:52 Dose: 75 mg Cyanocobalamin (Vitamin B12 -) 100 mcg PO DAILY [facility] Last Admin: 09/23/16 11:23 Dose: 100 mcg Diphenhydramine HCl (Benadryl -) 25 mg PO Q6H PRN PRN Reason: FOR ITCHING Last Admin: 09/22/16 21:46 Dose: 25 mg Docusate Sodium (Colace -) 100 mg PO TID [facility] Last Admin: 09/24/16 06:02 Dose: 100 mg Heparin Sodium (Porcine) (Heparin -) 5,000 unit SQ BID [facility] Last Admin: 09/23/16 21:24 Dose: Not Given Insulin Aspart (Novolog Vial Sliding Scale -) 1 vial SQ ACHS [facility] PRN Reason: Protocol Last Admin: 09/24/16 06:02 Dose: Not Given Insulin Detemir (Levemir Vial) 18 units SQ HS [facility] Last Admin: 09/23/16 21:24 Dose: 18 units Insulin Detemir (Levemir Vial) 20 units SQ ACBK [facility] Last Admin: 09/24/16 06:52 Dose: Not Given Ketorolac Tromethamine (Toradol) 10 mg PO Q8H PRN PRN Reason: PAIN Stop: 09/29/16 07:14 Metoprolol Succinate (Toprol Xl -) 12.5 mg PO DAILY [facility] Last Admin: 09/23/16 18:13 Dose: 12.5 mg Nystatin (Mycostatin Cream -) 1 applic TP BID [facility] Pantoprazole Sodium (Protonix -) 40 mg PO DAILY [facility] Last Admin: 09/23/16 11:23 Dose: 40 mg Senna (Senna -) 2 tab PO HS PRN PRN Reason: CONSTIPATION Last Admin: 09/22/16 06:51 Dose: 2 tab CBC, BMP 09/23/16 07:00 09/23/16 07:00 Laboratory Results - last 24 hr 09/23/16 09/23/16 09/23/16 11:46 16:29 21:21 POC Glucometer 163 131 141 09/24/16 05:33 POC Glucometer 82 Echocardiogram: Vegetation? PHYSICAL EXAMINATION: Constitutional: Yes: No Distress, Calm Cardiovascular: Yes: Regular Rate and Rhythm Respiratory: Yes: Diminished Gastrointestinal: Yes: Normal Bowel Sounds, Soft, Tenderness (light palpation- no mass). No: Distention Edema: No ASSESSMENT & PLAN: - Will give Enema today. - Continue antibiotics per ID. - Echocardiogram shows ? vegetation - Cardiology and ID to follow. - Monitor blood sugars - Dialysis per Renal. - Surgical follow up also noted. - Mammogram as outpatient- already scheduled. - Will follow. Documentation prepared by Liudmila Garcia, acting as a diagnostic medical sonographer for Jessenia Galarza MD. <Liudmila Garcia - Last Filed: 09/24/16 10:28> Problem List - Problems (1) Dialysis AV fistula infection Code(s): T82.7XXA - INFECT/INFLM REACT D/T OTH CARDI/VASC DEV/IMPLNT/GRFT, INIT Qualifiers: Encounter type: initial encounter Qualified Code(s): T82.7XXA - Infection and inflammatory reaction due to other cardiac and vascular devices, implants and grafts, initial encounter (2) ESRD on hemodialysis Code(s): N18.6 - END STAGE RENAL DISEASE Z99.2 - DEPENDENCE ON RENAL DIALYSIS (3) Anemia in ESRD (end-stage renal disease) Code(s): N18.6 - END STAGE RENAL DISEASE D63.1 - ANEMIA IN CHRONIC KIDNEY DISEASE (4) Diabetes Code(s): E11.9 - TYPE 2 DIABETES MELLITUS WITHOUT COMPLICATIONS Qualifiers: Diabetes mellitus type: type 1 Diabetes mellitus complication status: with circulatory complication Diabetes mellitus complication detail: with other circulatory complications Qualified Code(s): E10.59 - Type 1 diabetes mellitus with other circulatory complications (5) Foot amputation status Code(s): Z89.439 - ACQUIRED ABSENCE OF UNSPECIFIED FOOT Qualifiers: Laterality: right Qualified Code(s): Z89.431 - Acquired absence of right foot (6) Hypothyroidism Code(s): E03.9 - HYPOTHYROIDISM, UNSPECIFIED <Jessenia Galarza - Last Filed: 09/24/16 08:32>
[2016-09-24] MEDS ORDERED: MINERAL OIL ENEMA 133 ML ENEMA PR ONE (11:00)
[2016-09-24] MEDS: HEPARIN NA (PORCINE) 5,000 UNITS/ML 1ML VIAL SQ SCH ×2 (11:50→21:58)
[2016-09-24] MEDS: ALPRAZolam 0.25 MG TABLET PO SCH ×2 (11:59→21:59)
[2016-09-24] MEDS: METOPROLOL SUCCINATE 25 MG TAB.SR.24H (FP) PO SCH (12:00)
[2016-09-24] MEDS: PANTOPRAZOLE 40 MG TABLET (FP) PO SCH (12:02)
[2016-09-24] MEDS: CLOPIDOGREL BISULFATE 75 MG TABLET (FP) PO SCH (12:03)
[2016-09-24] MEDS: CYANOCOBALAMIN (VITAMIN B-12) 100 MCG TABLET PO SCH (12:03)
--- NOTE | 2016-09-24 14:15 | PN ---
Progress Note (short form) - Note Progress Note: still some lower abdominal pain-tender subcutaneous nodules lower abdomen constipation Vital Signs Period Temp Pulse Resp BP Sys/Cordero Pulse Ox Last 24 Hr 98.2 F-98.4 F 49-59 18-21 123-151/43-49 92-96 cor-rrr lungs clear abd soft,n1 tender lower abdominal subcutaneous nodule lower abdomen right arm with open wounds- no erythema, minimal drainage ext no edema +right AKA left breast mass unchanged CBC, BMP 09/23/16 07:00 09/23/16 07:00 Microbiology 09/17/16 12:22 Blood - Peripheral Venous Blood Culture - Final NO GROWTH AFTER 5 DAYS INCUBATION 09/17/16 12:22 Blood - Peripheral Venous Blood Culture - Final NO GROWTH AFTER 5 DAYS INCUBATION 09/17/16 15:30 Wound Gram Stain - Final 09/17/16 15:30 Wound Wound Culture - Final Escherichia Coli Enterococcus Faecalis Staphylococcus Coagulase Neg 09/18/16 11:40 Arm - Right Upper Gram Stain - Final 09/18/16 11:40 Arm - Right Upper Wound Culture - Final Escherichia Coli 09/17/16 15:30 Wound Gram Stain - Final 09/17/16 15:30 Wound Wound Culture - Final Escherichia Coli no abscess on breast sono a/p s/p revision infected graft receving vanco/gent with HD left breast mass- for sonogram this am painful subcutaneous lesions- esrd/hd continue antibiotics with HD
--- NOTE | 2016-09-24 14:16 | PN ---
Progress Note (short form) - Note Progress Note: Renal Follow up for ESRD Pt seen and examined at the bedside no acute complaints no sob, chest pain s/p dialysis yesterday has constipation Vital Signs Temperature 98.4 F 09/24/16 06:00 Pulse Rate 53 L 09/24/16 12:10 Respiratory Rate 20 09/24/16 06:00 Blood Pressure 149/49 09/24/16 06:00 O2 Sat by Pulse Oximetry (%) 96 09/24/16 12:10 Intake & Output 09/21/16 09/22/16 09/23/16 09/24/16 23:59 23:59 23:59 23:59 Intake Total 900 930 850 100 Balance 900 930 850 100 Weight 214 lb 4 oz 215 lb 209 lb 8 oz Gen: NAD, awake and alert HEENT: NC/AT, MM No JVD CVS: RRR, no M/R Lungs:CTA no rales or wheeze Abd: soft NT/ND Ext: No edema, clubbing or cyanosis Neuro: AAOx3, no focal defects CBC, BMP 09/23/16 07:00 09/23/16 07:00 Current Medications Acetaminophen/Codeine Phosphate (Tylenol # 3 -) 1 tab PO Q4H PRN Alprazolam (Xanax -) 0.25 mg PO BID [facility] Last Admin: 09/24/16 11:59 Dose: 0.25 mg Bisacodyl (Dulcolax -) 10 mg PO DAILY [facility] Last Admin: 09/23/16 18:35 Dose: 10 mg Calamine (Calamine 8% Topical Lotion -) 1 applic TP QID PRN PRN Reason: FOR ITCHING Calcium Acetate (Phoslo -) 667 mg PO TIDCM [facility] Last Admin: 09/24/16 12:03 Dose: 667 mg Clopidogrel Bisulfate (Plavix -) 75 mg PO DAILY [facility] Last Admin: 09/24/16 12:03 Dose: 75 mg Cyanocobalamin (Vitamin B12 -) 100 mcg PO DAILY [facility] Last Admin: 09/24/16 12:03 Dose: 100 mcg Diphenhydramine HCl (Benadryl -) 25 mg PO Q6H PRN PRN Reason: FOR ITCHING Last Admin: 09/22/16 21:46 Dose: 25 mg Docusate Sodium (Colace -) 100 mg PO TID [facility] Last Admin: 09/24/16 06:02 Dose: 100 mg Heparin Sodium (Porcine) (Heparin -) 5,000 unit SQ BID [facility] Last Admin: 09/24/16 11:50 Dose: 5,000 unit Insulin Aspart (Novolog Vial Sliding Scale -) 1 vial SQ ACHS [facility] PRN Reason: Protocol Last Admin: 09/24/16 06:02 Dose: Not Given Insulin Detemir (Levemir Vial) 18 units SQ HS [facility] Last Admin: 09/23/16 21:24 Dose: 18 units Insulin Detemir (Levemir Vial) 20 units SQ ACBK [facility] Last Admin: 09/24/16 06:52 Dose: Not Given Ketorolac Tromethamine (Toradol) 10 mg PO Q8H PRN PRN Reason: PAIN Stop: 09/29/16 07:14 Metoprolol Succinate (Toprol Xl -) 12.5 mg PO DAILY [facility] Last Admin: 09/24/16 12:00 Dose: 12.5 mg Nystatin (Mycostatin Cream -) 1 applic TP BID [facility] Pantoprazole Sodium (Protonix -) 40 mg PO DAILY [facility] Last Admin: 09/24/16 12:02 Dose: 40 mg Senna (Senna -) 2 tab PO HS PRN PRN Reason: CONSTIPATION Last Admin: 09/22/16 06:51 Dose: 2 tab A/P 71 year old woman with PMhx of ESRD on HD (MWF), PVD, IDDM presents with AVG site infection. Pt s/p HeRO graft placement in July in the right ARM complicated by graft dislodgement and hematoma formation. #ESRD on HD with Infected HeRO graft site s/p Removal of HeRO graft for dialysis tomorrow Continue Vanco and Gent with HD Will check Vanco level pre-HD tomorrow #Breast lesion/tenderness Us of breast noted no cyst/abcess + calcifications Seen by Sx, for outpatient follow up #Anemia Continue [place] with HD Wan Cruz DO
--- NOTE | 2016-09-24 14:56 | PN ---
Progress Note, Physician History of Present Illness: Tolerated HD via permacath. Denies chest pain or dyspnea. Left breast U/S negative for lesion or abscess. RUE pain improved post-debridement of wound. Reports constipation. - Current Medication List Current Medications: Active Medications Acetaminophen/Codeine Phosphate (Tylenol # 3 -) 1 tab PO Q4H PRN Alprazolam (Xanax -) 0.25 mg PO BID [facility] Last Admin: 09/24/16 11:59 Dose: 0.25 mg Bisacodyl (Dulcolax -) 10 mg PO DAILY [facility] Last Admin: 09/23/16 18:35 Dose: 10 mg Calamine (Calamine 8% Topical Lotion -) 1 applic TP QID PRN PRN Reason: FOR ITCHING Calcium Acetate (Phoslo -) 667 mg PO TIDCM [facility] Last Admin: 09/24/16 12:03 Dose: 667 mg Clopidogrel Bisulfate (Plavix -) 75 mg PO DAILY [facility] Last Admin: 09/24/16 12:03 Dose: 75 mg Cyanocobalamin (Vitamin B12 -) 100 mcg PO DAILY [facility] Last Admin: 09/24/16 12:03 Dose: 100 mcg Diphenhydramine HCl (Benadryl -) 25 mg PO Q6H PRN PRN Reason: FOR ITCHING Last Admin: 09/22/16 21:46 Dose: 25 mg Docusate Sodium (Colace -) 100 mg PO TID [facility] Last Admin: 09/24/16 06:02 Dose: 100 mg Epoetin Sky (Epogen -) 10,000 units IVPUSH ONCE ONE Stop: 09/25/16 06:01 Heparin Sodium (Porcine) (Heparin -) 5,000 unit SQ BID [facility] Last Admin: 09/24/16 11:50 Dose: 5,000 unit Gentamicin Sulfate/Sodium Chloride (Garamycin 80 Mg Premixed Ivpb -) 100 mls @ 100 mls/hr IVPB ONCE ONE Stop: 09/25/16 06:59 Vancomycin HCl 750 mg/ (Dextrose) 250 mls @ 250 mls/hr IVPB ONCE ONE Stop: 09/25/16 09:59 Insulin Aspart (Novolog Vial Sliding Scale -) 1 vial SQ ACHS [facility] PRN Reason: Protocol Last Admin: 09/24/16 12:00 Dose: Not Given Insulin Detemir (Levemir Vial) 18 units SQ HS [facility] Last Admin: 09/23/16 21:24 Dose: 18 units Insulin Detemir (Levemir Vial) 20 units SQ ACBK [facility] Last Admin: 09/24/16 06:52 Dose: Not Given Ketorolac Tromethamine (Toradol) 10 mg PO Q8H PRN PRN Reason: PAIN Stop: 09/29/16 07:14 Metoprolol Succinate (Toprol Xl -) 12.5 mg PO DAILY [facility] Last Admin: 09/24/16 12:00 Dose: 12.5 mg Nystatin (Mycostatin Cream -) 1 applic TP BID [facility] Pantoprazole Sodium (Protonix -) 40 mg PO DAILY [facility] Last Admin: 09/24/16 12:02 Dose: 40 mg Senna (Senna -) 2 tab PO HS PRN PRN Reason: CONSTIPATION Last Admin: 09/22/16 06:51 Dose: 2 tab - Objective Vital Signs: Vital Signs Temperature 98.4 F 09/24/16 06:00 Pulse Rate 53 L 09/24/16 12:10 Respiratory Rate 20 09/24/16 06:00 Blood Pressure 149/49 09/24/16 06:00 O2 Sat by Pulse Oximetry (%) 96 09/24/16 12:10 Constitutional: Yes: No Distress, Calm Neck: Yes: Supple Cardiovascular: Yes: Regular Rate and Rhythm Respiratory: Yes: Regular, Diminished Gastrointestinal: Yes: Normal Bowel Sounds, Soft Extremities: Yes: Amputation Edema: No Labs: CBC, BMP 09/23/16 07:00 09/23/16 07:00 INR, PTT INR 1.20 (0.82-1.09) H 09/17/16 12:22 Problem List - Problems (1) Dialysis AV fistula infection Code(s): T82.7XXA - INFECT/INFLM REACT D/T OTH CARDI/VASC DEV/IMPLNT/GRFT, INIT Qualifiers: Encounter type: initial encounter Qualified Code(s): T82.7XXA - Infection and inflammatory reaction due to other cardiac and vascular devices, implants and grafts, initial encounter (2) ESRD on hemodialysis Code(s): N18.6 - END STAGE RENAL DISEASE Z99.2 - DEPENDENCE ON RENAL DIALYSIS (3) Renal dialysis device, implant, or graft complication Code(s): T82.9XXA - UNSP COMP OF CARDIAC AND VASCULAR PROSTH DEV/GRFT, INIT Qualifiers: Encounter type: subsequent encounter Qualified Code(s): T82.9XXD - Unspecified complication of cardiac and vascular prosthetic device, implant and graft, subsequent encounter (4) Diabetes Code(s): E11.9 - TYPE 2 DIABETES MELLITUS WITHOUT COMPLICATIONS Qualifiers: Diabetes mellitus type: type 1 Diabetes mellitus complication status: with circulatory complication Diabetes mellitus complication detail: with other circulatory complications Qualified Code(s): E10.59 - Type 1 diabetes mellitus with other circulatory complications (5) S/P transmetatarsal amputation of foot Code(s): Z89.439 - ACQUIRED ABSENCE OF UNSPECIFIED FOOT Qualifiers: Laterality: left Qualified Code(s): Z89.432 - Acquired absence of left foot (6) Steal syndrome dialysis vascular access Code(s): T82.898A - [facility] COMPLICATION OF VASCULAR PROSTH DEV/GRFT, INIT Qualifiers: Encounter type: subsequent encounter Qualified Code(s): T82.898D - Other specified complication of vascular prosthetic devices, implants and grafts , subsequent encounter (7) Anemia Code(s): D64.9 - ANEMIA, UNSPECIFIED Qualifiers: Other causes of anemia: chronic disease, kidney Assessment/Plan 09/22/2016 Normal LV fxn, mild TR, no definitive vegetation 1. Infected RUE HeRO post removal, wound debridement, PC placement 2. PAD s/p right BKA, left TMA 3. CAD s/p multivessel PCI (stent), angina pectoris 4. LV diastolic dysfunction 5. ESRD on HD 6. Type 2 DM 7. Hyperlipidemia 8. HTN/HCVD 9. Hypothyroidism with abnormal TSH and normal FT4 10. Anemia of chronic kidney disease 11. Left breast mass r/o neoplasm PLAN: 1. Continue Toprol XL 12.5 qd and Clopidogrel 75 qd 2. HD per renal, complete abx course, wound care 3. F/u mammogram 10/01/2016 4. DVT and GI prophylaxis
--- NOTE | 2016-09-24 15:02 | PN ---
Progress Note (short form) - Note Progress Note: Vascular surgery Patient seen and examined. Patient states she is not having much pain in her right arm. Last Vital Signs Temp Pulse Resp BP Pulse Ox 98.4 F 53 L 20 149/49 96 09/24/16 06:00 09/24/16 12:10 09/24/16 06:00 09/24/16 06:00 09/24/16 12:10 PE: Gen: NAD, resting in bed, pleasant and cooperative RUE: Wounds 1x1cm, 1x2 cm, 2x2 cm, and 4x3 cm next to axilla, minimal drainage, some necrotic material noted along with some pink granulation, wounds lightly mechanically debrided, irrigated and packed with wet 50% NS/peroxide gauze, and dressing replaced. Permacath right upper chest Problem List - Problems (1) Dialysis AV fistula infection Assessment/Plan: s/p removal of infected Hero graft RUE Wound care done this afternoon, light debridement, irrigation, packing wet to dry Continuing abx per ID Code(s): T82.7XXA - INFECT/INFLM REACT D/T OTH CARDI/VASC DEV/IMPLNT/GRFT, INIT Qualifiers: Encounter type: initial encounter Qualified Code(s): T82.7XXA - Infection and inflammatory reaction due to other cardiac and vascular devices, implants and grafts, initial encounter
--- NOTE | 2016-09-24 15:11 | PATH ---
Surgical Pathology Report Patient Name: GAMA OLSON [facility]. Rec. #: [id number] /Age/Gender: 1945 (Age: 71) / F Account: [id number] Location: [address] [place] [address]/[facility] Taken: 09/18/2016 Received: 09/23/2016 Reported: 09/24/2016 Physicians: Dharmesh Hilton M.D. Specimen(s) Received A: DEBRIDEMENT TISSUE FROM GRAFT B: OLD GRAFT Clinical History ESRD on hemodialysis AV fistula infection Final Diagnosis A. SOFT TISSUE, FROM GRAFT, DEBRIDEMENT: FIBROFATTY TISSUE WITH ACUTE NECROTIZING INFLAMMATION AND GANGRENOUS NECROSIS. B. OLD GRAFT, REMOVAL: GRAFT (GROSS EXAM). Electronically Signed Romie Culp M.D. Gross Description A. Received in formalin, labeled "debrided tissue from graft" is a 3.0 x 2.3 x 1.0 cm aggregate of campos-dougherty, necrotic portions of soft tissue. A retail sales representative portion is submitted in one cassette. B. Received fresh, labeled "old graft" are 4 portions of tubing ranging from 5.0 to 32.5 cm in length. No soft tissue is present. No sections are submitted, gross only. 09/23/2016 saudi09/23/2016
[2016-09-24] MEDS: BISACODYL 5 MG TABLET.DR (FP) PO SCH (16:08)
[2016-09-24] MEDS ORDERED: PT OWN MED DRAWER 7, Y5N ONE (21:52)
[2016-09-24] MEDS: diphenhydrAMINE HCL 25 MG CAPSULE (FP) PO PRN (21:59)
[2016-09-24] MEDS: NYSTATIN 100,000 UNIT/GM TOPICAL CREAM 15 GM TUBE TP SCH (22:04)
[2016-09-25] MEDS: DOCUSATE SODIUM 100 MG CAPSULE (FP) PO SCH ×3 (06:34→21:32)
[2016-09-25] MEDS: INSULIN SLIDING SCALE (NOVOLOG) 1 VIAL SQ SCH ×4 (06:36→21:56)
[2016-09-25] MEDS: INSULIN DETEMIR 100 UNITS/ML MDV SQ SCH ×2 (08:19→21:57)
[2016-09-25 08:42] LABS: MCH 28.1 pg (25.7-33.7); MCHC 31.6 g/dl (32.0-36.0); MEAN CELL VOLUME 88.9 fl (80-96); MEAN PLT VOLUME 7.8 fl (7.5-11.1); PLATELET COUNT 425 K/MM3 (134-434); RDW 16.7 % (11.6-15.6); WHITE BLOOD COUNT 11.8 K/mm3 (4.0-10.0)
[2016-09-25] MEDS ORDERED: EPOETIN ALFA 10,000 UNIT/1 ML VIAL IVPUSH ONE (09:00)
[2016-09-25 09:01] LABS: CALCIUM 8.3 mg/dL (8.5-10.1)
[2016-09-25] MEDS ORDERED: VANCOMYCIN 750 MG in DEXTROSE 5%-WATER - 250 ML IVPB ONE (09:15)
[2016-09-25] MEDS ORDERED: GENTAMICIN 80 MG PREMIXED IVPB 100 ML IVPB ONE (09:15)
[2016-09-25] MEDS: CALCIUM ACETATE 667 MG CAPSULE (FP) PO SCH ×4 (09:22→17:38)
--- NOTE | 2016-09-25 09:35 | PN ---
Progress Note, Physician Chief Complaint: MICHAEL Guthrie intermittently Says feels chilled but no fever and blood cultures no growth 09/17 - Current Medication List Current Medications: Active Medications Acetaminophen/Codeine Phosphate (Tylenol # 3 -) 1 tab PO Q4H PRN Alprazolam (Xanax -) 0.25 mg PO BID [facility] Last Admin: 09/24/16 21:59 Dose: 0.25 mg Bisacodyl (Dulcolax -) 10 mg PO DAILY [facility] Last Admin: 09/24/16 16:08 Dose: 10 mg Calamine (Calamine 8% Topical Lotion -) 1 applic TP QID PRN PRN Reason: FOR ITCHING Calcium Acetate (Phoslo -) 667 mg PO TIDCM [facility] Last Admin: 09/25/16 09:22 Dose: Not Given Clopidogrel Bisulfate (Plavix -) 75 mg PO DAILY [facility] Last Admin: 09/24/16 12:03 Dose: 75 mg Cyanocobalamin (Vitamin B12 -) 100 mcg PO DAILY [facility] Last Admin: 09/24/16 12:03 Dose: 100 mcg Diphenhydramine HCl (Benadryl -) 25 mg PO Q6H PRN PRN Reason: FOR ITCHING Last Admin: 09/24/16 21:59 Dose: 25 mg Docusate Sodium (Colace -) 100 mg PO TID [facility] Last Admin: 09/25/16 06:34 Dose: 100 mg Heparin Sodium (Porcine) (Heparin -) 5,000 unit SQ BID [facility] Last Admin: 09/24/16 21:58 Dose: 5,000 unit Gentamicin Sulfate/Sodium Chloride (Garamycin 80 Mg Premixed Ivpb -) 100 mls @ 100 mls/hr IVPB ONCE ONE Stop: 09/25/16 10:14 Vancomycin HCl 750 mg/ (Dextrose) 250 mls @ 250 mls/hr IVPB ONCE ONE Stop: 09/25/16 10:14 Insulin Aspart (Novolog Vial Sliding Scale -) 1 vial SQ ACHS [facility] PRN Reason: Protocol Last Admin: 09/25/16 06:36 Dose: Not Given Insulin Detemir (Levemir Vial) 18 units SQ HS [facility] Last Admin: 09/24/16 21:58 Dose: 18 units Insulin Detemir (Levemir Vial) 20 units SQ ACBK [facility] Last Admin: 09/25/16 08:19 Dose: Not Given Ketorolac Tromethamine (Toradol) 10 mg PO Q8H PRN PRN Reason: PAIN Stop: 09/29/16 07:14 Metoprolol Succinate (Toprol Xl -) 12.5 mg PO DAILY [facility] Last Admin: 09/24/16 12:00 Dose: 12.5 mg Nystatin (Mycostatin Cream -) 1 applic TP BID [facility] Last Admin: 09/24/16 22:04 Dose: 1 applic Pantoprazole Sodium (Protonix -) 40 mg PO DAILY [facility] Last Admin: 09/24/16 12:02 Dose: 40 mg Senna (Senna -) 2 tab PO HS PRN PRN Reason: CONSTIPATION Last Admin: 09/22/16 06:51 Dose: 2 tab - Objective Vital Signs: Vital Signs Temperature 97.9 F 09/25/16 07:20 Pulse Rate 41 L 09/25/16 07:25 Respiratory Rate 18 09/25/16 07:25 Blood Pressure 189/83 09/25/16 07:25 O2 Sat by Pulse Oximetry (%) 96 09/24/16 21:00 Constitutional: Yes: No Distress Neck: Yes: WNL, Supple Cardiovascular: Yes: S1, S2 Respiratory: Yes: WNL, Regular, CTA Bilaterally Gastrointestinal: Yes: Soft Labs: CBC, BMP 09/25/16 07:20 09/25/16 07:20 INR, PTT INR 1.20 (0.82-1.09) H 09/17/16 12:22 Problem List - Problems (1) Dialysis AV fistula infection Code(s): T82.7XXA - INFECT/INFLM REACT D/T OTH CARDI/VASC DEV/IMPLNT/GRFT, INIT Qualifiers: Encounter type: initial encounter Qualified Code(s): T82.7XXA - Infection and inflammatory reaction due to other cardiac and vascular devices, implants and grafts, initial encounter (2) ESRD on hemodialysis Code(s): N18.6 - END STAGE RENAL DISEASE Z99.2 - DEPENDENCE ON RENAL DIALYSIS (3) Anemia in ESRD (end-stage renal disease) Code(s): N18.6 - END STAGE RENAL DISEASE D63.1 - ANEMIA IN CHRONIC KIDNEY DISEASE Assessment/Plan Laboratory Tests 09/25/16 09/25/16 07:20 07:20 WBC 11.8 H Hgb 8.3 L Hct 26.4 L Plt Count 425 Vancomycin Trough 27.139 H* CT fecal retension Assessment Infected and emoved right arm AVG Breast mass tender ESRD Plan Will discuss with Dr Hilton regarding need for longer term antibiotics but no fever and neg blood cultures on admission Danica CASTILLO
[2016-09-25] MEDS ORDERED: ONDANSETRON 4 MG/2 ML VIAL IVPUSH PRN (11:14)
--- NOTE | 2016-09-25 11:14 | PN ---
Progress Note (short form) - Note Progress Note: Renal Follow up for ESRD Pt seen and examined during dialysis has some nausea this am, no vomitting no sob, chest pain breast pain persists BP stable Goal UF is 2L Vital Signs Temperature 97.9 F 09/25/16 07:20 Pulse Rate 51 L 09/25/16 09:25 Respiratory Rate 18 09/25/16 09:25 Blood Pressure 140/80 09/25/16 09:25 O2 Sat by Pulse Oximetry (%) 96 09/24/16 21:00 Intake & Output 09/22/16 09/23/16 09/24/16 09/25/16 23:59 23:59 23:59 23:59 Intake Total 930 850 550 100 Balance 930 850 550 100 Weight 215 lb 209 lb 8 oz 205 lb 6 oz Gen: NAD, awake and alert HEENT: NC/AT, MM No JVD CVS: RRR, no M/R Lungs:CTA no rales or wheeze Abd: soft NT/ND Ext: No edema, clubbing or cyanosis Neuro: AAOx3, no focal defects CBC, BMP 09/25/16 07:20 09/25/16 07:20 Current Medications Acetaminophen/Codeine Phosphate (Tylenol # 3 -) 1 tab PO Q4H PRN Alprazolam (Xanax -) 0.25 mg PO BID [facility] Last Admin: 09/24/16 21:59 Dose: 0.25 mg Bisacodyl (Dulcolax -) 10 mg PO DAILY [facility] Last Admin: 09/24/16 16:08 Dose: 10 mg Calamine (Calamine 8% Topical Lotion -) 1 applic TP QID PRN PRN Reason: FOR ITCHING Calcium Acetate (Phoslo -) 667 mg PO TIDCM [facility] Last Admin: 09/25/16 09:22 Dose: Not Given Clopidogrel Bisulfate (Plavix -) 75 mg PO DAILY [facility] Last Admin: 09/24/16 12:03 Dose: 75 mg Cyanocobalamin (Vitamin B12 -) 100 mcg PO DAILY [facility] Last Admin: 09/24/16 12:03 Dose: 100 mcg Diphenhydramine HCl (Benadryl -) 25 mg PO Q6H PRN PRN Reason: FOR ITCHING Last Admin: 09/24/16 21:59 Dose: 25 mg Docusate Sodium (Colace -) 100 mg PO TID [facility] Last Admin: 09/25/16 06:34 Dose: 100 mg Heparin Sodium (Porcine) (Heparin -) 5,000 unit SQ BID [facility] Last Admin: 09/24/16 21:58 Dose: 5,000 unit Insulin Aspart (Novolog Vial Sliding Scale -) 1 vial SQ ACHS [facility] PRN Reason: Protocol Last Admin: 09/25/16 06:36 Dose: Not Given Insulin Detemir (Levemir Vial) 18 units SQ HS [facility] Last Admin: 09/24/16 21:58 Dose: 18 units Insulin Detemir (Levemir Vial) 20 units SQ ACBK [facility] Last Admin: 09/25/16 08:19 Dose: Not Given Ketorolac Tromethamine (Toradol) 10 mg PO Q8H PRN PRN Reason: PAIN Stop: 09/29/16 07:14 Metoprolol Succinate (Toprol Xl -) 12.5 mg PO DAILY [facility] Last Admin: 09/24/16 12:00 Dose: 12.5 mg Nystatin (Mycostatin Cream -) 1 applic TP BID [facility] Last Admin: 09/24/16 22:04 Dose: 1 applic Pantoprazole Sodium (Protonix -) 40 mg PO DAILY [facility] Last Admin: 09/24/16 12:02 Dose: 40 mg Senna (Senna -) 2 tab PO HS PRN PRN Reason: CONSTIPATION Last Admin: 09/22/16 06:51 Dose: 2 tab A/P 71 year old woman with PMhx of ESRD on HD (MWF), PVD, IDDM presents with AVG site infection. Pt s/p HeRO graft placement in July in the right ARM complicated by graft dislodgement and hematoma formation. #ESRD on HD with Infected HeRO graft site s/p Removal of HeRO graft Tolerating HD well Vanco held today because of high level continue Gent length of Abx as per ID and Vascular Sx #Breast lesion/tenderness Us of breast noted no cyst/abcess + calcifications Seen by Sx, for outpatient follow up #Anemia Continue [place] with HD #nausea PRN Wendy Cruz DO
[2016-09-25] MEDS ORDERED: PT OWN MED DRAWER 7, Y5N ONE ×2 (11:51→17:12)
--- NOTE | 2016-09-25 12:03 | PN ---
Progress Note (short form) - Note Progress Note: VSS, Afebrile Right arm wounds dry, less exudate, beginning to granulate. Axillary incision intact, no exposed graft material. WBC 11.5 Imp: Healing wounds, resolving infection. Rec: I would change to PO abx and continue until WBC normalizes. Continue current wound care. Problem List - Problems (1) Renal dialysis device, implant, or graft complication Code(s): T82.9XXA - UNSP COMP OF CARDIAC AND VASCULAR PROSTH DEV/GRFT, INIT Qualifiers: Encounter type: subsequent encounter Qualified Code(s): T82.9XXD - Unspecified complication of cardiac and vascular prosthetic device, implant and graft, subsequent encounter
--- NOTE | 2016-09-25 12:20 | PN ---
Progress Note, Physician Chief Complaint: no distress Pt examined with Vascular - Current Medication List Current Medications: Active Medications Acetaminophen/Codeine Phosphate (Tylenol # 3 -) 1 tab PO Q4H PRN Alprazolam (Xanax -) 0.25 mg PO BID [facility] Last Admin: 09/24/16 21:59 Dose: 0.25 mg Bisacodyl (Dulcolax -) 10 mg PO DAILY [facility] Last Admin: 09/24/16 16:08 Dose: 10 mg Calamine (Calamine 8% Topical Lotion -) 1 applic TP QID PRN PRN Reason: FOR ITCHING Calcium Acetate (Phoslo -) 667 mg PO TIDCM [facility] Last Admin: 09/25/16 09:22 Dose: Not Given Clopidogrel Bisulfate (Plavix -) 75 mg PO DAILY [facility] Last Admin: 09/24/16 12:03 Dose: 75 mg Cyanocobalamin (Vitamin B12 -) 100 mcg PO DAILY [facility] Last Admin: 09/24/16 12:03 Dose: 100 mcg Diphenhydramine HCl (Benadryl -) 25 mg PO Q6H PRN PRN Reason: FOR ITCHING Last Admin: 09/24/16 21:59 Dose: 25 mg Docusate Sodium (Colace -) 100 mg PO TID [facility] Last Admin: 09/25/16 06:34 Dose: 100 mg Heparin Sodium (Porcine) (Heparin -) 5,000 unit SQ BID [facility] Last Admin: 09/24/16 21:58 Dose: 5,000 unit Insulin Aspart (Novolog Vial Sliding Scale -) 1 vial SQ ACHS [facility] PRN Reason: Protocol Last Admin: 09/25/16 06:36 Dose: Not Given Insulin Detemir (Levemir Vial) 18 units SQ HS [facility] Last Admin: 09/24/16 21:58 Dose: 18 units Insulin Detemir (Levemir Vial) 20 units SQ ACBK [facility] Last Admin: 09/25/16 08:19 Dose: Not Given Ketorolac Tromethamine (Toradol) 10 mg PO Q8H PRN PRN Reason: PAIN Stop: 09/29/16 07:14 Metoprolol Succinate (Toprol Xl -) 12.5 mg PO DAILY [facility] Last Admin: 09/24/16 12:00 Dose: 12.5 mg Nystatin (Mycostatin Cream -) 1 applic TP BID [facility] Last Admin: 09/24/16 22:04 Dose: 1 applic Ondansetron HCl (Zofran Injection) 4 mg IVPUSH Q6H PRN PRN Reason: NAUSEA AND/OR VOMITING Pantoprazole Sodium (Protonix -) 40 mg PO DAILY [facility] Last Admin: 09/24/16 12:02 Dose: 40 mg Senna (Senna -) 2 tab PO HS PRN PRN Reason: CONSTIPATION Last Admin: 09/22/16 06:51 Dose: 2 tab - Objective Vital Signs: Vital Signs Temperature 97.9 F 09/25/16 07:20 Pulse Rate 50 L 09/25/16 11:10 Respiratory Rate 18 09/25/16 11:10 Blood Pressure 128/66 09/25/16 11:10 O2 Sat by Pulse Oximetry (%) 96 09/24/16 21:00 Constitutional: Yes: No Distress Cardiovascular: Yes: Regular Rate and Rhythm Respiratory: Yes: Diminished Gastrointestinal: Yes: Normal Bowel Sounds, Soft. No: Distention, Tenderness Musculoskeletal: Yes: Other (Right arm wounds clean , no discharge) Edema: No Labs: CBC, BMP 09/25/16 07:20 09/25/16 07:20 INR, PTT INR 1.20 (0.82-1.09) H 09/17/16 12:22 Problem List - Problems (1) Dialysis AV fistula infection Code(s): T82.7XXA - INFECT/INFLM REACT D/T OTH CARDI/VASC DEV/IMPLNT/GRFT, INIT Qualifiers: Encounter type: initial encounter Qualified Code(s): T82.7XXA - Infection and inflammatory reaction due to other cardiac and vascular devices, implants and grafts, initial encounter (2) ESRD on hemodialysis Code(s): N18.6 - END STAGE RENAL DISEASE Z99.2 - DEPENDENCE ON RENAL DIALYSIS (3) Diabetes Code(s): E11.9 - TYPE 2 DIABETES MELLITUS WITHOUT COMPLICATIONS Qualifiers: Diabetes mellitus type: type 1 Diabetes mellitus complication status: with circulatory complication Diabetes mellitus complication detail: with other circulatory complications Qualified Code(s): E10.59 - Type 1 diabetes mellitus with other circulatory complications (4) Steal syndrome dialysis vascular access Code(s): T82.898A - OTH COMPLICATION OF VASCULAR PROSTH DEV/GRFT, INIT Qualifiers: Encounter type: subsequent encounter Qualified Code(s): T82.898D - Other specified complication of vascular prosthetic devices, implants and grafts , subsequent encounter (5) Breast pain, left Code(s): N64.4 - MASTODYNIA Assessment/Plan PLAN -- Ecoli in wound -- iv antibiotics per ID-- spoke with Dr Mishra- change to Cefazolin -- wound care -- breast sono done- spoke with radiologist- has microcalcifications-- will need a mammogram-- scheduled for Oct 01 as pt unable to sit in wheelchair and they need her upright -- warm compresses to left breast -- possibly traumatic cause for left breast induration -- Breast surgeon eval- spoke with Dr Suarez -- dialysis per Renal --- monitor glucose -- continue with meds -- dc planning
[2016-09-25] MEDS: NYSTATIN 100,000 UNIT/GM TOPICAL CREAM 15 GM TUBE TP SCH (12:28)
[2016-09-25] MEDS: HEPARIN NA (PORCINE) 5,000 UNITS/ML 1ML VIAL SQ SCH ×2 (12:29→21:57)
[2016-09-25] MEDS: BISACODYL 5 MG TABLET.DR (FP) PO SCH (12:29)
[2016-09-25] MEDS: CLOPIDOGREL BISULFATE 75 MG TABLET (FP) PO SCH (12:30)
[2016-09-25] MEDS: METOPROLOL SUCCINATE 25 MG TAB.SR.24H (FP) PO SCH (12:31)
[2016-09-25] MEDS: CYANOCOBALAMIN (VITAMIN B-12) 100 MCG TABLET PO SCH (12:31)
[2016-09-25] MEDS: ALPRAZolam 0.25 MG TABLET PO SCH ×2 (12:31→21:32)
[2016-09-25] MEDS: PANTOPRAZOLE 40 MG TABLET (FP) PO SCH (12:32)
--- NOTE | 2016-09-25 16:31 | PN ---
Progress Note, Physician Chief Complaint: Events noted Clinically better appearing today History of Present Illness: Patient was seen and examined. Left breast US unremarkable. Abdominal CT shows retained stool. Chart was reviewed Patient is awake and alert. Denies chest pain, SOB or palpitations - Current Medication List Current Medications: Active Medications Acetaminophen/Codeine Phosphate (Tylenol # 3 -) 1 tab PO Q4H PRN Alprazolam (Xanax -) 0.25 mg PO BID [facility] Last Admin: 09/25/16 12:31 Dose: 0.25 mg Bisacodyl (Dulcolax -) 10 mg PO DAILY [facility] Last Admin: 09/25/16 12:29 Dose: 10 mg Calamine (Calamine 8% Topical Lotion -) 1 applic TP QID PRN PRN Reason: FOR ITCHING Calcium Acetate (Phoslo -) 667 mg PO TIDCM [facility] Last Admin: 09/25/16 12:30 Dose: 667 mg Clopidogrel Bisulfate (Plavix -) 75 mg PO DAILY [facility] Last Admin: 09/25/16 12:30 Dose: 75 mg Cyanocobalamin (Vitamin B12 -) 100 mcg PO DAILY [facility] Last Admin: 09/25/16 12:31 Dose: 100 mcg Diphenhydramine HCl (Benadryl -) 25 mg PO Q6H PRN PRN Reason: FOR ITCHING Last Admin: 09/24/16 21:59 Dose: 25 mg Docusate Sodium (Colace -) 100 mg PO TID [facility] Last Admin: 09/25/16 14:47 Dose: 100 mg Heparin Sodium (Porcine) (Heparin -) 5,000 unit SQ BID [facility] Last Admin: 09/25/16 12:29 Dose: 5,000 unit Cefazolin Sodium 0.5 gm/ (Dextrose) 50 mls @ 100 mls/hr IVPB BID [facility] Insulin Aspart (Novolog Vial Sliding Scale -) 1 vial SQ ACHS [facility] PRN Reason: Protocol Last Admin: 09/25/16 12:32 Dose: Not Given Insulin Detemir (Levemir Vial) 18 units SQ HS [facility] Last Admin: 09/24/16 21:58 Dose: 18 units Insulin Detemir (Levemir Vial) 20 units SQ ACBK [facility] Last Admin: 09/25/16 08:19 Dose: Not Given Ketorolac Tromethamine (Toradol) 10 mg PO Q8H PRN PRN Reason: PAIN Stop: 09/29/16 07:14 Metoprolol Succinate (Toprol Xl -) 12.5 mg PO DAILY [facility] Last Admin: 09/25/16 12:31 Dose: 12.5 mg Nystatin (Mycostatin Cream -) 1 applic TP BID [facility] Last Admin: 09/25/16 12:28 Dose: 1 applic Ondansetron HCl (Zofran Injection) 4 mg IVPUSH Q6H PRN PRN Reason: NAUSEA AND/OR VOMITING Pantoprazole Sodium (Protonix -) 40 mg PO DAILY [facility] Last Admin: 09/25/16 12:32 Dose: 40 mg Senna (Senna -) 2 tab PO HS PRN PRN Reason: CONSTIPATION Last Admin: 09/22/16 06:51 Dose: 2 tab Simethicone (Mylicon -) 80 mg PO QID PRN PRN Reason: GAS - Objective Vital Signs: Vital Signs Temperature 99.1 F 09/25/16 14:38 Pulse Rate 50 L 09/25/16 14:38 Respiratory Rate 20 09/25/16 14:38 Blood Pressure 165/52 09/25/16 14:38 O2 Sat by Pulse Oximetry (%) 96 09/24/16 21:00 Neck: Yes: Supple Cardiovascular: Yes: Regular Rate and Rhythm, S1, S2 Respiratory: Yes: Diminished Gastrointestinal: Yes: Normal Bowel Sounds, Soft, Abdomen, Obese. No: Tenderness Edema: No Labs: CBC, BMP 09/25/16 07:20 09/25/16 07:20 INR, PTT Problem List - Problems (1) Breast pain, left Code(s): N64.4 - MASTODYNIA (2) Dialysis AV fistula infection Code(s): T82.7XXA - INFECT/INFLM REACT D/T OTH CARDI/VASC DEV/IMPLNT/GRFT, INIT Qualifiers: Encounter type: initial encounter Qualified Code(s): T82.7XXA - Infection and inflammatory reaction due to other cardiac and vascular devices, implants and grafts, initial encounter (3) ESRD on hemodialysis Code(s): N18.6 - END STAGE RENAL DISEASE Z99.2 - DEPENDENCE ON RENAL DIALYSIS (4) Renal dialysis device, implant, or graft complication Code(s): T82.9XXA - UNSP COMP OF CARDIAC AND VASCULAR PROSTH DEV/GRFT, INIT Qualifiers: Encounter type: subsequent encounter Qualified Code(s): T82.9XXD - Unspecified complication of cardiac and vascular prosthetic device, implant and graft, subsequent encounter (5) Anemia in ESRD (end-stage renal disease) Code(s): N18.6 - END STAGE RENAL DISEASE D63.1 - ANEMIA IN CHRONIC KIDNEY DISEASE (6) Diabetes Code(s): E11.9 - TYPE 2 DIABETES MELLITUS WITHOUT COMPLICATIONS Qualifiers: Diabetes mellitus type: type 1 Diabetes mellitus complication status: with circulatory complication Diabetes mellitus complication detail: with other circulatory complications Qualified Code(s): E10.59 - Type 1 diabetes mellitus with other circulatory complications (7) S/P transmetatarsal amputation of foot Code(s): Z89.439 - ACQUIRED ABSENCE OF UNSPECIFIED FOOT Qualifiers: Laterality: left Qualified Code(s): Z89.432 - Acquired absence of left foot (8) Unilateral AKA Code(s): Z89.619 - ACQUIRED ABSENCE OF UNSPECIFIED LEG ABOVE KNEE Qualifiers: Laterality: right Qualified Code(s): Z89.611 - Acquired absence of right leg above knee Assessment/Plan 1. Infected RUE HeRO post removal, wound debridement, PC placement 2. PAD s/p right BKA, left TMA 3. CAD s/p multivessel PCI (stent), angina pectoris 4. LV diastolic dysfunction 5. ESRD on HD 6. Type 2 DM 7. Hyperlipidemia 8. HTN/HCVD 9. Hypothyroidism with abnormal TSH and normal FT4 10. Anemia of chronic kidney disease 11. Left breast mass r/o neoplasm PLAN: 1. Continue Toprol XL 12.5 mg QD and Clopidogrel 75 mg QD 2. HD per renal, complete antibiotic course and wound care 3. F/U mammogram 4. DVT and GI prophylaxis Further plans are to follow Ernie Polanco MD
[2016-09-25] MEDS: CEFAZOLIN 0.5 GM in DEXTROSE 5%-WATER - 50 ML IVPB SCH ×2 (17:02→21:31)
[2016-09-25] MEDS: KETOROLAC TROMETHAMINE 10 MG TABLET PO PRN (17:14)
--- NOTE | 2016-09-25 18:15 | PN ---
Progress Note, Physician Chief Complaint: Pain in left breast. - Current Medication List Current Medications: Active Medications Acetaminophen/Codeine Phosphate (Tylenol # 3 -) 1 tab PO Q4H PRN Alprazolam (Xanax -) 0.25 mg PO BID [facility] Last Admin: 09/25/16 12:31 Dose: 0.25 mg Bisacodyl (Dulcolax -) 10 mg PO DAILY [facility] Last Admin: 09/25/16 12:29 Dose: 10 mg Calamine (Calamine 8% Topical Lotion -) 1 applic TP QID PRN PRN Reason: FOR ITCHING Calcium Acetate (Phoslo -) 667 mg PO TIDCM [facility] Last Admin: 09/25/16 17:38 Dose: 667 mg Clopidogrel Bisulfate (Plavix -) 75 mg PO DAILY [facility] Last Admin: 09/25/16 12:30 Dose: 75 mg Cyanocobalamin (Vitamin B12 -) 100 mcg PO DAILY [facility] Last Admin: 09/25/16 12:31 Dose: 100 mcg Diphenhydramine HCl (Benadryl -) 25 mg PO Q6H PRN PRN Reason: FOR ITCHING Last Admin: 09/24/16 21:59 Dose: 25 mg Docusate Sodium (Colace -) 100 mg PO TID [facility] Last Admin: 09/25/16 14:47 Dose: 100 mg Heparin Sodium (Porcine) (Heparin -) 5,000 unit SQ BID [facility] Last Admin: 09/25/16 12:29 Dose: 5,000 unit Cefazolin Sodium 0.5 gm/ (Dextrose) 50 mls @ 100 mls/hr IVPB BID [facility] Last Admin: 09/25/16 17:02 Dose: 100 mls/hr Insulin Aspart (Novolog Vial Sliding Scale -) 1 vial SQ ACHS [facility] PRN Reason: Protocol Last Admin: 09/25/16 17:35 Dose: 3 units Insulin Detemir (Levemir Vial) 18 units SQ HS [facility] Last Admin: 09/24/16 21:58 Dose: 18 units Insulin Detemir (Levemir Vial) 20 units SQ ACBK [facility] Last Admin: 09/25/16 08:19 Dose: Not Given Ketorolac Tromethamine (Toradol) 10 mg PO Q8H PRN PRN Reason: PAIN Stop: 09/29/16 07:14 Last Admin: 09/25/16 17:14 Dose: 10 mg Metoprolol Succinate (Toprol Xl -) 12.5 mg PO DAILY [facility] Last Admin: 09/25/16 12:31 Dose: 12.5 mg Nystatin (Mycostatin Cream -) 1 applic TP BID [facility] Last Admin: 09/25/16 12:28 Dose: 1 applic Ondansetron HCl (Zofran Injection) 4 mg IVPUSH Q6H PRN PRN Reason: NAUSEA AND/OR VOMITING Pantoprazole Sodium (Protonix -) 40 mg PO DAILY [facility] Last Admin: 09/25/16 12:32 Dose: 40 mg Senna (Senna -) 2 tab PO HS PRN PRN Reason: CONSTIPATION Last Admin: 09/22/16 06:51 Dose: 2 tab Simethicone (Mylicon -) 80 mg PO QID PRN PRN Reason: GAS - Objective Vital Signs: Vital Signs Temperature 99.1 F 09/25/16 14:38 Pulse Rate 50 L 09/25/16 14:38 Respiratory Rate 20 09/25/16 14:38 Blood Pressure 165/52 09/25/16 14:38 O2 Sat by Pulse Oximetry (%) 95 09/25/16 09:00 Labs: CBC, BMP 09/25/16 07:20 09/25/16 07:20 INR, PTT INR 1.20 (0.82-1.09) H 09/17/16 12:22 Problem List - Problems (1) Breast mass, left Code(s): N63 - UNSPECIFIED LUMP IN BREAST (2) Breast pain, left Code(s): N64.4 - MASTODYNIA (3) ESRD on hemodialysis Code(s): N18.6 - END STAGE RENAL DISEASE Z99.2 - DEPENDENCE ON RENAL DIALYSIS (4) Diabetes Code(s): E11.9 - TYPE 2 DIABETES MELLITUS WITHOUT COMPLICATIONS Qualifiers: Diabetes mellitus type: type 1 Diabetes mellitus complication status: with circulatory complication Diabetes mellitus complication detail: with other circulatory complications Qualified Code(s): E10.59 - Type 1 diabetes mellitus with other circulatory complications Assessment/Plan C/O more severe pain in left breast. Patient now appears to have a well defined tender mass at 3 oclock position in her left breast. There is no fluctuance , or softness to suggest an abscess. ? likely a hematoma, that is organizing. Patient is unable to sit for mammography. Continue observation, and might consider aspiration of the left breast. Will repeat ultrasound of the left breast, next week.
[2016-09-25] MEDS: SIMETHICONE 80 MG TAB.CHEW (FP) PO PRN (18:34)
[2016-09-26] MEDS: NYSTATIN 100,000 UNIT/GM TOPICAL CREAM 15 GM TUBE TP SCH ×2 (06:32→09:42)
[2016-09-26] MEDS: INSULIN DETEMIR 100 UNITS/ML MDV SQ SCH ×3 (06:39→21:44)
[2016-09-26] MEDS: SENNOSIDES 8.6MG TABLET (FP) PO PRN (06:39)
[2016-09-26] MEDS: DOCUSATE SODIUM 100 MG CAPSULE (FP) PO SCH ×3 (06:39→21:44)
[2016-09-26] MEDS: INSULIN SLIDING SCALE (NOVOLOG) 1 VIAL SQ SCH ×3 (06:40→17:10)
[2016-09-26] MEDS ORDERED: INSULIN DETEMIR 100 UNITS/ML MDV SQ ONE ×2 (08:00→08:15)
[2016-09-26] MEDS: CALCIUM ACETATE 667 MG CAPSULE (FP) PO SCH ×3 (08:09→17:16)
[2016-09-26] MEDS: SIMETHICONE 80 MG TAB.CHEW (FP) PO PRN (08:13)
[2016-09-26] MEDS ORDERED: PT OWN MED DRAWER 7, Y5N ONE ×3 (09:27→21:36)
[2016-09-26] MEDS: BISACODYL 5 MG TABLET.DR (FP) PO SCH (09:42)
[2016-09-26] MEDS: CLOPIDOGREL BISULFATE 75 MG TABLET (FP) PO SCH (09:42)
[2016-09-26] MEDS: CEFAZOLIN 0.5 GM in DEXTROSE 5%-WATER - 50 ML IVPB SCH ×2 (09:42→21:45)
[2016-09-26] MEDS: PANTOPRAZOLE 40 MG TABLET (FP) PO SCH (09:43)
[2016-09-26] MEDS: CYANOCOBALAMIN (VITAMIN B-12) 100 MCG TABLET PO SCH (09:43)
[2016-09-26] MEDS: METOPROLOL SUCCINATE 25 MG TAB.SR.24H (FP) PO SCH (09:43)
--- NOTE | 2016-09-26 09:46 | PN ---
Progress Note, Physician Chief Complaint: no distress has less pain in left breast - Current Medication List Current Medications: Active Medications Acetaminophen/Codeine Phosphate (Tylenol # 3 -) 1 tab PO Q4H PRN Bisacodyl (Dulcolax -) 10 mg PO DAILY [facility] Last Admin: 09/25/16 12:29 Dose: 10 mg Calamine (Calamine 8% Topical Lotion -) 1 applic TP QID PRN PRN Reason: FOR ITCHING Calcium Acetate (Phoslo -) 667 mg PO TIDCM [facility] Last Admin: 09/26/16 08:09 Dose: 667 mg Clopidogrel Bisulfate (Plavix -) 75 mg PO DAILY [facility] Last Admin: 09/25/16 12:30 Dose: 75 mg Cyanocobalamin (Vitamin B12 -) 100 mcg PO DAILY [facility] Last Admin: 09/25/16 12:31 Dose: 100 mcg Diphenhydramine HCl (Benadryl -) 25 mg PO Q6H PRN PRN Reason: FOR ITCHING Last Admin: 09/24/16 21:59 Dose: 25 mg Docusate Sodium (Colace -) 100 mg PO TID [facility] Last Admin: 09/26/16 06:39 Dose: 100 mg Cefazolin Sodium 0.5 gm/ (Dextrose) 50 mls @ 100 mls/hr IVPB BID [facility] Last Admin: 09/25/16 21:31 Dose: 100 mls/hr Insulin Aspart (Novolog Vial Sliding Scale -) 1 vial SQ ACHS [facility] PRN Reason: Protocol Last Admin: 09/26/16 06:40 Dose: Not Given Insulin Detemir (Levemir Vial) 18 units SQ HS [facility] Last Admin: 09/25/16 21:57 Dose: 18 units Insulin Detemir (Levemir Vial) 20 units SQ ACBK [facility] Last Admin: 09/26/16 08:10 Dose: 20 units Ketorolac Tromethamine (Toradol) 10 mg PO Q8H PRN PRN Reason: PAIN Stop: 09/29/16 07:14 Last Admin: 09/25/16 17:14 Dose: 10 mg Metoprolol Succinate (Toprol Xl -) 12.5 mg PO DAILY [facility] Last Admin: 09/25/16 12:31 Dose: 12.5 mg Nystatin (Mycostatin Cream -) 1 applic TP BID [facility] Last Admin: 09/26/16 06:32 Dose: Not Given Ondansetron HCl (Zofran Injection) 4 mg IVPUSH Q6H PRN PRN Reason: NAUSEA AND/OR VOMITING Pantoprazole Sodium (Protonix -) 40 mg PO DAILY [facility] Last Admin: 09/25/16 12:32 Dose: 40 mg Senna (Senna -) 2 tab PO HS PRN PRN Reason: CONSTIPATION Last Admin: 09/26/16 06:39 Dose: 2 tab Simethicone (Mylicon -) 80 mg PO QID PRN PRN Reason: GAS Last Admin: 09/26/16 08:13 Dose: 80 mg - Objective Vital Signs: Vital Signs Temperature 98.1 F 09/26/16 06:00 Pulse Rate 48 L 09/26/16 06:00 Respiratory Rate 18 09/26/16 06:00 Blood Pressure 110/65 09/26/16 06:00 O2 Sat by Pulse Oximetry (%) 98 09/25/16 21:00 Constitutional: Yes: No Distress Cardiovascular: Yes: Regular Rate and Rhythm Respiratory: Yes: Diminished Gastrointestinal: Yes: Normal Bowel Sounds, Soft, Abdomen, Obese. No: Tenderness Breast(s): Yes: Left, Mass (more defined mass, tender) Edema: No Psychiatric: Yes: Alert, Oriented Labs: CBC, BMP 09/25/16 07:20 09/25/16 07:20 INR, PTT INR 1.20 (0.82-1.09) H 09/17/16 12:22 Problem List - Problems (1) Dialysis AV fistula infection Code(s): T82.7XXA - INFECT/INFLM REACT D/T OTH CARDI/VASC DEV/IMPLNT/GRFT, INIT Qualifiers: Encounter type: initial encounter Qualified Code(s): T82.7XXA - Infection and inflammatory reaction due to other cardiac and vascular devices, implants and grafts, initial encounter (2) ESRD on hemodialysis Code(s): N18.6 - END STAGE RENAL DISEASE Z99.2 - DEPENDENCE ON RENAL DIALYSIS (3) Diabetes Code(s): E11.9 - TYPE 2 DIABETES MELLITUS WITHOUT COMPLICATIONS Qualifiers: Diabetes mellitus type: type 1 Diabetes mellitus complication status: with circulatory complication Diabetes mellitus complication detail: with other circulatory complications Qualified Code(s): E10.59 - Type 1 diabetes mellitus with other circulatory complications (4) Steal syndrome dialysis vascular access Code(s): T82.898A - OTH COMPLICATION OF VASCULAR PROSTH DEV/GRFT, INIT Qualifiers: Encounter type: subsequent encounter Qualified Code(s): T82.898D - Other specified complication of vascular prosthetic devices, implants and grafts , subsequent encounter (5) Breast pain, left Code(s): N64.4 - MASTODYNIA Assessment/Plan PLAN -- Ecoli in wound -- iv antibiotics per ID-- spoke with Dr Mishra- change to Keflex for 7 more days -- wound care -- warm compresses to left breast -- possibly traumatic cause for left breast induration --noted Breast surgeon eval- ? biopsy -- dialysis per Renal --- monitor glucose -- continue with meds -- dc planning
[2016-09-26] MEDS: KETOROLAC TROMETHAMINE 10 MG TABLET PO PRN (14:57)
[2016-09-26] MEDS: SILVER SULFADIAZINE 1% TOP CREAM 50 GM JAR TP SCH (17:11)
--- NOTE | 2016-09-26 17:40 | PN ---
Progress Note, Physician Chief Complaint: Events noted Not in distress History of Present Illness: Patient was seen and examined. Awake and alert. Chart was reviewed Denies chest pain, SOB or palpitations - Current Medication List Current Medications: Active Medications Acetaminophen/Codeine Phosphate (Tylenol # 3 -) 1 tab PO Q4H PRN Alprazolam (Xanax -) 0.25 mg PO BID PRN PRN Reason: ANXIETY Bisacodyl (Dulcolax -) 10 mg PO DAILY [facility] Last Admin: 09/26/16 09:42 Dose: 10 mg Calamine (Calamine 8% Topical Lotion -) 1 applic TP QID PRN PRN Reason: FOR ITCHING Calcium Acetate (Phoslo -) 667 mg PO TIDCM [facility] Last Admin: 09/26/16 17:16 Dose: 667 mg Clopidogrel Bisulfate (Plavix -) 75 mg PO DAILY [facility] Last Admin: 09/26/16 09:42 Dose: 75 mg Cyanocobalamin (Vitamin B12 -) 100 mcg PO DAILY [facility] Last Admin: 09/26/16 09:43 Dose: 100 mcg Diphenhydramine HCl (Benadryl -) 25 mg PO Q6H PRN PRN Reason: FOR ITCHING Last Admin: 09/24/16 21:59 Dose: 25 mg Docusate Sodium (Colace -) 100 mg PO TID [facility] Last Admin: 09/26/16 14:08 Dose: 100 mg Heparin Sodium (Porcine) (Heparin -) 5,000 unit SQ BID [facility] Cefazolin Sodium 0.5 gm/ (Dextrose) 50 mls @ 100 mls/hr IVPB BID [facility] Last Admin: 09/26/16 09:42 Dose: 100 mls/hr Insulin Aspart (Novolog Vial Sliding Scale -) [facility] Reason: Protocol Last Admin: 09/26/16 17:10 Dose: Not Given Insulin Detemir (Levemir Vial) 18 units SQ HS [facility] Last Admin: 09/25/16 21:57 Dose: 18 units Insulin Detemir (Levemir Vial) 20 units SQ ACBK [facility] Last Admin: 09/26/16 08:10 Dose: 20 units Ketorolac Tromethamine (Toradol) 10 mg PO Q8H PRN PRN Reason: PAIN Stop: 09/29/16 07:14 Last Admin: 09/26/16 14:57 Dose: 10 mg Metoprolol Succinate (Toprol Xl -) 12.5 mg PO DAILY [facility] Last Admin: 09/26/16 09:43 Dose: 12.5 mg Nystatin (Mycostatin Cream -) 1 applic TP BID [facility] Last Admin: 09/26/16 09:42 Dose: 1 applic Ondansetron HCl (Zofran Injection) 4 mg IVPUSH Q6H PRN PRN Reason: NAUSEA AND/OR VOMITING Pantoprazole Sodium (Protonix -) 40 mg PO DAILY [facility] Last Admin: 09/26/16 09:43 Dose: 40 mg Senna (Senna -) 2 tab PO HS PRN PRN Reason: CONSTIPATION Last Admin: 09/26/16 06:39 Dose: 2 tab Silver Sulfadiazine (Silvadene -) 1 applic TP DAILY [facility] Last Admin: 09/26/16 17:11 Dose: 1 applic Simethicone (Mylicon -) 80 mg PO QID PRN PRN Reason: GAS Last Admin: 09/26/16 08:13 Dose: 80 mg - Objective Vital Signs: Vital Signs Temperature 98.7 F 09/26/16 14:42 Pulse Rate 51 L 09/26/16 14:42 Respiratory Rate 20 09/26/16 14:42 Blood Pressure 159/65 09/26/16 14:42 O2 Sat by Pulse Oximetry (%) 97 09/26/16 09:46 Neck: Yes: Supple Cardiovascular: Yes: Regular Rate and Rhythm, S1, S2 Respiratory: Yes: CTA Bilaterally Gastrointestinal: Yes: Normal Bowel Sounds, Soft, Abdomen, Obese Extremities: Yes: Amputation Edema: No Problem List - Problems (1) Breast pain, left Code(s): N64.4 - MASTODYNIA (2) Dialysis AV fistula infection Code(s): T82.7XXA - INFECT/INFLM REACT D/T OTH CARDI/VASC DEV/IMPLNT/GRFT, INIT Qualifiers: Encounter type: initial encounter Qualified Code(s): T82.7XXA - Infection and inflammatory reaction due to other cardiac and vascular devices, implants and grafts, initial encounter (3) ESRD on hemodialysis Code(s): N18.6 - END STAGE RENAL DISEASE Z99.2 - DEPENDENCE ON RENAL DIALYSIS (4) Renal dialysis device, implant, or graft complication Code(s): T82.9XXA - UNSP COMP OF CARDIAC AND VASCULAR PROSTH DEV/GRFT, INIT Qualifiers: Encounter type: subsequent encounter Qualified Code(s): T82.9XXD - Unspecified complication of cardiac and vascular prosthetic device, implant and graft, subsequent encounter (5) Anemia in ESRD (end-stage renal disease) Code(s): N18.6 - END STAGE RENAL DISEASE D63.1 - ANEMIA IN CHRONIC KIDNEY DISEASE (6) Diabetes Code(s): E11.9 - TYPE 2 DIABETES MELLITUS WITHOUT COMPLICATIONS Qualifiers: Diabetes mellitus type: type 1 Diabetes mellitus complication status: with circulatory complication Diabetes mellitus complication detail: with other circulatory complications Qualified Code(s): E10.59 - Type 1 diabetes mellitus with other circulatory complications (7) S/P transmetatarsal amputation of foot Code(s): Z89.439 - ACQUIRED ABSENCE OF UNSPECIFIED FOOT Qualifiers: Laterality: left Qualified Code(s): Z89.432 - Acquired absence of left foot (8) Unilateral AKA Code(s): Z89.619 - ACQUIRED ABSENCE OF UNSPECIFIED LEG ABOVE KNEE Qualifiers: Laterality: right Qualified Code(s): Z89.611 - Acquired absence of right leg above knee Assessment/Plan 1. Infected RUE HeRO post removal, wound debridement, PC placement 2. PAD s/p right BKA, left TMA 3. CAD s/p multivessel PCI (stent), angina pectoris 4. LV diastolic dysfunction 5. ESRD on HD 6. Type 2 DM 7. Hyperlipidemia 8. HTN/HCVD 9. Hypothyroidism with abnormal TSH and normal FT4 10. Anemia of chronic kidney disease 11. Left breast mass r/o neoplasm PLAN: 1. Continue Toprol XL 12.5 mg QD and Clopidogrel 75 mg QD 2. HD per renal, complete antibiotic course and wound care 3. DVT and GI prophylaxis Further plans are to follow Ernie Polanco MD
[2016-09-26] MEDS: HEPARIN NA (PORCINE) 5,000 UNITS/ML 1ML VIAL SQ SCH (21:43)
[2016-09-26] MEDS: ALPRAZolam 0.25 MG TABLET PO PRN (21:44)
[2016-09-27] MEDS: NYSTATIN 100,000 UNIT/GM TOPICAL CREAM 15 GM TUBE TP SCH ×3 (06:00→21:57)
[2016-09-27] MEDS: INSULIN SLIDING SCALE (NOVOLOG) 1 VIAL SQ SCH ×2 (06:01→17:26)
[2016-09-27] MEDS: INSULIN DETEMIR 100 UNITS/ML MDV SQ SCH ×3 (06:02→21:57)
[2016-09-27] MEDS: SENNOSIDES 8.6MG TABLET (FP) PO PRN (06:11)
[2016-09-27] MEDS: DOCUSATE SODIUM 100 MG CAPSULE (FP) PO SCH ×3 (06:11→21:56)
[2016-09-27] MEDS: CALCIUM ACETATE 667 MG CAPSULE (FP) PO SCH ×4 (08:20→17:30)
[2016-09-27] MEDS: BISACODYL 5 MG TABLET.DR (FP) PO SCH (09:28)
[2016-09-27] MEDS: CEFAZOLIN 0.5 GM in DEXTROSE 5%-WATER - 50 ML IVPB SCH ×2 (09:28→21:52)
[2016-09-27] MEDS: HEPARIN NA (PORCINE) 5,000 UNITS/ML 1ML VIAL SQ SCH ×2 (09:29→21:57)
[2016-09-27] MEDS: CLOPIDOGREL BISULFATE 75 MG TABLET (FP) PO SCH (09:30)
[2016-09-27] MEDS: PANTOPRAZOLE 40 MG TABLET (FP) PO SCH (09:30)
[2016-09-27] MEDS: SILVER SULFADIAZINE 1% TOP CREAM 50 GM JAR TP SCH (09:31)
[2016-09-27] MEDS: METOPROLOL SUCCINATE 25 MG TAB.SR.24H (FP) PO SCH (09:31)
[2016-09-27] MEDS: CYANOCOBALAMIN (VITAMIN B-12) 100 MCG TABLET PO SCH (09:32)
--- NOTE | 2016-09-27 11:51 | PN ---
Progress Note (short form) - Note Progress Note: Renal Follow up for ESRD Pt seen and examined during dialysis no sob or chest pain has pain in left breast no right arm pain no fever or chills Vital Signs Temperature 98.1 F 09/27/16 06:00 Pulse Rate 81 09/27/16 09:19 Respiratory Rate 20 09/27/16 06:00 Blood Pressure 165/47 09/27/16 06:00 O2 Sat by Pulse Oximetry (%) 95 09/27/16 09:19 Intake & Output 09/24/16 09/25/16 09/26/16 09/27/16 23:59 23:59 23:59 23:59 Intake Total 510 661 4255 0 Balance 970 804 6087 0 Weight 205 lb 6 oz Gen: NAD, awake and alert HEENT: NC/AT, MM No JVD CVS: RRR, no M/R Lungs:CTA no rales or wheeze Abd: soft NT/ND Ext: No edema, clubbing or cyanosis Neuro: AAOx3, no focal defects CBC, BMP 09/25/16 07:20 09/25/16 07:20 Laboratory Tests 09/25/16 07:20 Calcium 8.3 L Phosphorus 4.0 Current Medications Acetaminophen/Codeine Phosphate (Tylenol # 3 -) 1 tab PO Q4H PRN Alprazolam (Xanax -) 0.25 mg PO BID PRN PRN Reason: ANXIETY Last Admin: 09/26/16 21:44 Dose: 0.25 mg Bisacodyl (Dulcolax -) 10 mg PO DAILY [facility] Last Admin: 09/27/16 09:28 Dose: 10 mg Calamine (Calamine 8% Topical Lotion -) 1 applic TP QID PRN PRN Reason: FOR ITCHING Calcium Acetate (Phoslo -) 667 mg PO TIDCM [facility] Last Admin: 09/27/16 08:20 Dose: 667 mg Clopidogrel Bisulfate (Plavix -) 75 mg PO DAILY [facility] Last Admin: 09/27/16 09:30 Dose: 75 mg Cyanocobalamin (Vitamin B12 -) 100 mcg PO DAILY [facility] Last Admin: 09/27/16 09:32 Dose: 100 mcg Diphenhydramine HCl (Benadryl -) 25 mg PO Q6H PRN PRN Reason: FOR ITCHING Last Admin: 09/24/16 21:59 Dose: 25 mg Docusate Sodium (Colace -) 100 mg PO TID [facility] Last Admin: 09/27/16 06:11 Dose: 100 mg Heparin Sodium (Porcine) (Heparin -) 5,000 unit SQ BID [facility] Last Admin: 09/27/16 09:29 Dose: 5,000 unit Cefazolin Sodium 0.5 gm/ (Dextrose) 50 mls @ 100 mls/hr IVPB BID [facility] Last Admin: 09/27/16 09:28 Dose: 100 mls/hr Insulin Aspart (Novolog Vial Sliding Scale -) 1 vial SQ BIDAC [facility] PRN Reason: Protocol Last Admin: 09/27/16 06:01 Dose: Not Given Insulin Detemir (Levemir Vial) 18 units SQ HS [facility] Last Admin: 09/26/16 21:44 Dose: 18 units Insulin Detemir (Levemir Vial) 20 units SQ ACBK [facility] Last Admin: 09/27/16 06:02 Dose: Not Given Ketorolac Tromethamine (Toradol) 10 mg PO Q8H PRN PRN Reason: PAIN Stop: 09/29/16 07:14 Last Admin: 09/26/16 14:57 Dose: 10 mg Metoprolol Succinate (Toprol Xl -) 12.5 mg PO DAILY [facility] Last Admin: 09/27/16 09:31 Dose: 12.5 mg Nystatin (Mycostatin Cream -) 1 applic TP BID [facility] Last Admin: 09/27/16 09:29 Dose: 1 applic Ondansetron HCl (Zofran Injection) 4 mg IVPUSH Q6H PRN PRN Reason: NAUSEA AND/OR VOMITING Pantoprazole Sodium (Protonix -) 40 mg PO DAILY [facility] Last Admin: 09/27/16 09:30 Dose: 40 mg Senna (Senna -) 2 tab PO HS PRN PRN Reason: CONSTIPATION Last Admin: 09/27/16 06:11 Dose: 2 tab Silver Sulfadiazine (Silvadene -) 1 applic TP DAILY [facility] Last Admin: 09/27/16 09:31 Dose: 1 applic Simethicone (Mylicon -) 80 mg PO QID PRN PRN Reason: GAS Last Admin: 09/26/16 08:13 Dose: 80 mg A/P 71 year old woman with PMhx of ESRD on HD (MWF), PVD, IDDM presents with AVG site infection. Pt s/p HeRO graft placement in July in the right ARM complicated by graft dislodgement and hematoma formation. #ESRD on HD with Infected HeRO graft site no indication for [facility] today Next HD tomorrow Check Vanco levels Will redose Gent post HD tomorrow WIll need to determine length of Abx as per Vascular and ID #Breast lesion/tenderness Us of breast noted no cyst/abcess + calcifications Repeat US as per Sx #Anemia Continue [place] with HD Wan Cruz DO
--- NOTE | 2016-09-27 11:52 | PN ---
Progress Note (short form) - Note Progress Note: PT wihtout any complaints. Vital Signs Period Temp Pulse Resp BP Sys/Cordero Pulse Ox Last 24 Hr 98 F-98.7 F 43-81 18-20 126-165/47-65 95-97 PE: RUE: no swelling noted. Wounds irrigated with peroxide/NS. Granulation tissue at base with minimal slough in the tract between jump incisions. Debrided today with 4x4 gauze. CBC, BMP 09/25/16 07:20 09/25/16 07:20 Problem List - Problems (1) ESRD on hemodialysis Assessment/Plan: s/p removal of HERO graft for infection, now with open incisions. Local wound care bid with peroxide/NS and pack with wet to dry. Continue HD via Right chest PC IV abx-transition to oral. She remains afebrile check WBC in the am(ordered) Code(s): N18.6 - END STAGE RENAL DISEASE Z99.2 - DEPENDENCE ON RENAL DIALYSIS
--- NOTE | 2016-09-27 12:00 | DS ---
Physical Examination Vital Signs: Vital Signs Temperature 98.1 F 09/27/16 06:00 Pulse Rate 81 09/27/16 09:19 Respiratory Rate 20 09/27/16 06:00 Blood Pressure 165/47 09/27/16 06:00 O2 Sat by Pulse Oximetry (%) 95 09/27/16 09:19 Constitutional: Yes: No Distress, Calm Cardiovascular: Yes: Regular Rate and Rhythm Respiratory: Yes: Diminished Gastrointestinal: Yes: Normal Bowel Sounds, Soft, Abdomen, Obese. No: Distention, Tenderness Edema: No Psychiatric: Yes: Alert Labs: CBC, BMP 09/25/16 07:20 09/25/16 07:20 Discharge Summary Reason For Visit: ESRD ON HEMODIALYSIS,AV FISTULA INFECTION Current Active Problems Anemia (Acute) Breast mass, left (Acute) Breast pain, left (Acute) Dialysis AV fistula infection (Acute) E coli infection (Acute) ESRD on hemodialysis (Acute) Pre-operative cardiovascular examination (Acute) Renal dialysis device, implant, or graft complication (Acute) Hospital Course: Pt admitted for infected Hero graft left arm-- E.coli in the wound cultures. -- Hero graft removed and Rt permacath placed Pt is currently being dialyzed in the right permacath Wound care daily Seen by ID. Cardiology. vascular Ecoli is sensitive to Cefazolin Also seen by Breast surgeon-Dr Suarez for left breast mass and pain - breast sono showed microcalcifications She is unable to get mammogram as she can not sit in a wheelchair As per breast surgeon- may be traumatic I spoke with him today- he will see her in [facility] and re-evaluate her. He will do left breast biopsy under sono guidance as outpt after course of antibiotics. Per my conversation with Dr Mishra yesterday, she will need Keflex PO for 7 more days. Stable for dc to NH Condition: Improved - Instructions Diet, Activity, Other Instructions: Follow up with Dr. Suarez for left breast evaluation. To call [phone], for appointment.He will come to the intermediate for evaluation- please have MS call him. [facility] - Home Medications Comprehensive Discharge Medication List: Ambulatory Orders Insulin (Levemir) [Levemir Flexpen -] 18 units SQ HS 08/20/14 Aspirin [ASA -] 81 mg PO DAILY #90 tab.chew 12/04/14 Clopidogrel Bisulfate [Plavix -] 75 mg PO DAILY #90 tablet 08/29/14 Cyanocobalamin [Vitamin B12 -] 100 mcg PO DAILY #90 tablet 08/29/14 Glipizide 5 mg PO DAILY #90 tablet 08/29/14 Insulin (Levemir) [Levemir Flexpen -] 20 units SQ AM #90 pen 08/29/14 Pantoprazole Sodium [Protonix -] 40 mg PO DAILY #30 tablet.ec 08/29/14 Calcium Acetate [Phoslo -] 667 mg PO TID 04/06/16 Levothyroxine [Synthroid -] 213 mcg PO DAILY 08/10/16 Levothyroxine [Synthroid -] 250 mcg PO ASDIR 08/10/16 Metoprolol Succinate [Toprol XL -] 12.5 mg PO DAILY 08/10/16 Acetaminophen W/ Codeine #3 [Tylenol # 3 -] 1 tab PO Q4H PRN #90 tablet MDD 4 Alprazolam [Xanax] 0.25 mg PO DAILY PRN #30 tablet MDD 1 08/14/16 Oxycodone HCl [Roxicodone -] 5 mg PO Q6H #20 tablet MDD 6 08/14/16
--- NOTE | 2016-09-27 12:08 | PN ---
Progress Note, Physician Chief Complaint: Events noted Not in distress Comfortable History of Present Illness: Patient was seen and examined. Awake and alert. Chart was reviewed Denies chest pain, SOB or palpitations Left breast mass, concerned about etiology - Current Medication List Current Medications: Active Medications Acetaminophen/Codeine Phosphate (Tylenol # 3 -) 1 tab PO Q4H PRN Alprazolam (Xanax -) 0.25 mg PO BID PRN PRN Reason: ANXIETY Last Admin: 09/26/16 21:44 Dose: 0.25 mg Bisacodyl (Dulcolax -) 10 mg PO DAILY [facility] Last Admin: 09/27/16 09:28 Dose: 10 mg Calamine (Calamine 8% Topical Lotion -) 1 applic TP QID PRN PRN Reason: FOR ITCHING Calcium Acetate (Phoslo -) 667 mg PO TIDCM [facility] Last Admin: 09/27/16 08:20 Dose: 667 mg Clopidogrel Bisulfate (Plavix -) 75 mg PO DAILY [facility] Last Admin: 09/27/16 09:30 Dose: 75 mg Cyanocobalamin (Vitamin B12 -) 100 mcg PO DAILY [facility] Last Admin: 09/27/16 09:32 Dose: 100 mcg Diphenhydramine HCl (Benadryl -) 25 mg PO Q6H PRN PRN Reason: FOR ITCHING Last Admin: 09/24/16 21:59 Dose: 25 mg Docusate Sodium (Colace -) 100 mg PO TID [facility] Last Admin: 09/27/16 06:11 Dose: 100 mg Epoetin Sky (Epogen -) 20,000 units IVPUSH ONCE ONE Stop: 09/28/16 06:01 Heparin Sodium (Porcine) (Heparin -) 5,000 unit SQ BID [facility] Last Admin: 09/27/16 09:29 Dose: 5,000 unit Cefazolin Sodium 0.5 gm/ (Dextrose) 50 mls @ 100 mls/hr IVPB BID [facility] Last Admin: 09/27/16 09:28 Dose: 100 mls/hr Gentamicin Sulfate/Sodium Chloride (Garamycin 80 Mg Premixed Ivpb -) 100 mls @ 100 mls/hr IVPB ONCE ONE Stop: 09/28/16 09:59 Vancomycin HCl 1,000 mg/ (Dextrose) 250 mls @ 250 mls/hr IVPB ONCE ONE Stop: 09/28/16 06:59 Insulin Aspart (Novolog Vial Sliding Scale -) 1 vial SQ BIDAC [facility] PRN Reason: Protocol Last Admin: 09/27/16 06:01 Dose: Not Given Insulin Detemir (Levemir Vial) 18 units SQ HS [facility] Last Admin: 09/26/16 21:44 Dose: 18 units Insulin Detemir (Levemir Vial) 20 units SQ ACBK [facility] Last Admin: 09/27/16 11:59 Dose: 20 units Ketorolac Tromethamine (Toradol) 10 mg PO Q8H PRN PRN Reason: PAIN Stop: 09/29/16 07:14 Last Admin: 09/26/16 14:57 Dose: 10 mg Metoprolol Succinate (Toprol Xl -) 12.5 mg PO DAILY [facility] Last Admin: 09/27/16 09:31 Dose: 12.5 mg Nystatin (Mycostatin Cream -) 1 applic TP BID [facility] Last Admin: 09/27/16 09:29 Dose: 1 applic Ondansetron HCl (Zofran Injection) 4 mg IVPUSH Q6H PRN PRN Reason: NAUSEA AND/OR VOMITING Pantoprazole Sodium (Protonix -) 40 mg PO DAILY [facility] Last Admin: 09/27/16 09:30 Dose: 40 mg Senna (Senna -) 2 tab PO HS PRN PRN Reason: CONSTIPATION Last Admin: 09/27/16 06:11 Dose: 2 tab Silver Sulfadiazine (Silvadene -) 1 applic TP DAILY [facility] Last Admin: 09/27/16 09:31 Dose: 1 applic Simethicone (Mylicon -) 80 mg PO QID PRN PRN Reason: GAS Last Admin: 09/26/16 08:13 Dose: 80 mg - Objective Vital Signs: Vital Signs Temperature 98.1 F 09/27/16 06:00 Pulse Rate 81 09/27/16 09:19 Respiratory Rate 20 09/27/16 06:00 Blood Pressure 165/47 09/27/16 06:00 O2 Sat by Pulse Oximetry (%) 95 09/27/16 09:19 Neck: Yes: Supple Cardiovascular: Yes: Regular Rate and Rhythm, S1, S2 Respiratory: Yes: CTA Bilaterally Gastrointestinal: Yes: Normal Bowel Sounds, Soft, Abdomen, Obese. No: Tenderness Extremities: Yes: Amputation Edema: No Problem List - Problems (1) Breast pain, left Code(s): N64.4 - MASTODYNIA (2) Dialysis AV fistula infection Code(s): T82.7XXA - INFECT/INFLM REACT D/T OTH CARDI/VASC DEV/IMPLNT/GRFT, INIT Qualifiers: Encounter type: initial encounter Qualified Code(s): T82.7XXA - Infection and inflammatory reaction due to other cardiac and vascular devices, implants and grafts, initial encounter (3) ESRD on hemodialysis Code(s): N18.6 - END STAGE RENAL DISEASE Z99.2 - DEPENDENCE ON RENAL DIALYSIS (4) Renal dialysis device, implant, or graft complication Code(s): T82.9XXA - UNSP COMP OF CARDIAC AND VASCULAR PROSTH DEV/GRFT, INIT Qualifiers: Encounter type: subsequent encounter Qualified Code(s): T82.9XXD - Unspecified complication of cardiac and vascular prosthetic device, implant and graft, subsequent encounter (5) Anemia in ESRD (end-stage renal disease) Code(s): N18.6 - END STAGE RENAL DISEASE D63.1 - ANEMIA IN CHRONIC KIDNEY DISEASE (6) Diabetes Code(s): E11.9 - TYPE 2 DIABETES MELLITUS WITHOUT COMPLICATIONS Qualifiers: Diabetes mellitus type: type 1 Diabetes mellitus complication status: with circulatory complication Diabetes mellitus complication detail: with other circulatory complications Qualified Code(s): E10.59 - Type 1 diabetes mellitus with other circulatory complications (7) S/P transmetatarsal amputation of foot Code(s): Z89.439 - ACQUIRED ABSENCE OF UNSPECIFIED FOOT Qualifiers: Laterality: left Qualified Code(s): Z89.432 - Acquired absence of left foot (8) Unilateral AKA Code(s): Z89.619 - ACQUIRED ABSENCE OF UNSPECIFIED LEG ABOVE KNEE Qualifiers: Laterality: right Qualified Code(s): Z89.611 - Acquired absence of right leg above knee Assessment/Plan 1. Infected RUE HeRO post removal, wound debridement, PC placement 2. PAD s/p right BKA, left TMA 3. CAD s/p multivessel PCI (stent), angina pectoris 4. LV diastolic dysfunction 5. ESRD on HD 6. Type 2 DM 7. Hyperlipidemia 8. HTN/HCVD 9. Hypothyroidism with abnormal TSH and normal FT4 10. Anemia of chronic kidney disease 11. Left breast mass r/o neoplasm PLAN: 1. Continue Toprol XL 12.5 mg QD and Clopidogrel 75 mg QD 2. HD per renal, complete antibiotic course and wound care 3. DVT and GI prophylaxis 4. Further evaluation on left breast as outpatient Discharge planning Ernie Polanco MD
[2016-09-27] MEDS: KETOROLAC TROMETHAMINE 10 MG TABLET PO PRN (14:11)
--- NOTE | 2016-09-27 18:08 | PN ---
Progress Note, Physician - Current Medication List Current Medications: Active Medications Acetaminophen/Codeine Phosphate (Tylenol # 3 -) 1 tab PO Q4H PRN Alprazolam (Xanax -) 0.25 mg PO BID PRN PRN Reason: ANXIETY Last Admin: 09/26/16 21:44 Dose: 0.25 mg Bisacodyl (Dulcolax -) 10 mg PO DAILY [facility] Last Admin: 09/27/16 09:28 Dose: 10 mg Calamine (Calamine 8% Topical Lotion -) 1 applic TP QID PRN PRN Reason: FOR ITCHING Calcium Acetate (Phoslo -) 667 mg PO TIDCM [facility] Last Admin: 09/27/16 17:26 Dose: 667 mg Clopidogrel Bisulfate (Plavix -) 75 mg PO DAILY [facility] Last Admin: 09/27/16 09:30 Dose: 75 mg Cyanocobalamin (Vitamin B12 -) 100 mcg PO DAILY [facility] Last Admin: 09/27/16 09:32 Dose: 100 mcg Diphenhydramine HCl (Benadryl -) 25 mg PO Q6H PRN PRN Reason: FOR ITCHING Last Admin: 09/24/16 21:59 Dose: 25 mg Docusate Sodium (Colace -) 100 mg PO TID [facility] Last Admin: 09/27/16 14:12 Dose: Not Given Epoetin Sky (Epogen -) 20,000 units IVPUSH ONCE ONE Stop: 09/28/16 06:01 Heparin Sodium (Porcine) (Heparin -) 5,000 unit SQ BID [facility] Last Admin: 09/27/16 09:29 Dose: 5,000 unit Cefazolin Sodium 0.5 gm/ (Dextrose) 50 mls @ 100 mls/hr IVPB BID [facility] Last Admin: 09/27/16 09:28 Dose: 100 mls/hr Gentamicin Sulfate/Sodium Chloride (Garamycin 80 Mg Premixed Ivpb -) 100 mls @ 100 mls/hr IVPB ONCE ONE Stop: 09/28/16 09:59 Vancomycin HCl 1,000 mg/ (Dextrose) 250 mls @ 250 mls/hr IVPB ONCE ONE Stop: 09/28/16 06:59 [facility]ulin Aspart ([facility] Sliding Scale [facility]) [facility]: [facility] Last Admin: 09/27/16 17:26 Dose: 4 units Insulin Detemir (Levemir Vial) 18 units SQ HS [facility] Last Admin: 09/26/16 21:44 Dose: 18 units Insulin Detemir (Levemir Vial) 20 units SQ ACBK [facility] Last Admin: 09/27/16 11:59 Dose: 20 units Ketorolac Tromethamine (Toradol) 10 mg PO Q8H PRN PRN Reason: PAIN Stop: 09/29/16 07:14 Last Admin: 09/27/16 14:11 Dose: 10 mg Metoprolol Succinate (Toprol Xl -) 12.5 mg PO DAILY [facility] Last Admin: 09/27/16 09:31 Dose: 12.5 mg Nystatin (Mycostatin Cream -) 1 applic TP BID [facility] Last Admin: 09/27/16 09:29 Dose: 1 applic Ondansetron HCl (Zofran Injection) 4 mg IVPUSH Q6H PRN PRN Reason: NAUSEA AND/OR VOMITING Pantoprazole Sodium (Protonix -) 40 mg PO DAILY [facility] Last Admin: 09/27/16 09:30 Dose: 40 mg Senna (Senna -) 2 tab PO HS PRN PRN Reason: CONSTIPATION Last Admin: 09/27/16 06:11 Dose: 2 tab Silver Sulfadiazine (Silvadene -) 1 applic TP DAILY [facility] Last Admin: 09/27/16 09:31 Dose: 1 applic Simethicone (Mylicon -) 80 mg PO QID PRN PRN Reason: GAS Last Admin: 09/26/16 08:13 Dose: 80 mg - Objective Vital Signs: Vital Signs Temperature 98.0 F 09/27/16 15:16 Pulse Rate 45 L 09/27/16 15:16 Respiratory Rate 20 09/27/16 15:16 Blood Pressure 155/58 09/27/16 15:16 O2 Sat by Pulse Oximetry (%) 95 09/27/16 09:19 Labs: CBC, BMP 09/25/16 07:20 09/25/16 07:20 INR, PTT INR 1.20 (0.82-1.09) H 09/17/16 12:22 Problem List - Problems (1) Breast mass, left Code(s): N63 - UNSPECIFIED LUMP IN BREAST (2) Breast pain, left Code(s): N64.4 - MASTODYNIA (3) ESRD on hemodialysis Code(s): N18.6 - END STAGE RENAL DISEASE Z99.2 - DEPENDENCE ON RENAL DIALYSIS (4) Diabetes Code(s): E11.9 - TYPE 2 DIABETES MELLITUS WITHOUT COMPLICATIONS Qualifiers: Diabetes mellitus type: type 1 Diabetes mellitus complication status: with circulatory complication Diabetes mellitus complication detail: with other circulatory complications Qualified Code(s): E10.59 - Type 1 diabetes mellitus with other circulatory complications Assessment/Plan Surgery: Patient feels less pain in her left breast. Mass appears smaller and lesstender. Skin ulcers are healing. Patient is being transferred to [facility] tomorrow. She will be followed , and work up for breast lump will continue. Patient and her daughter are explained.
[2016-09-27] MEDS ORDERED: PT OWN MED DRAWER 7, Y5N ONE ×2 (19:39→21:45)
[2016-09-28] MEDS: ALPRAZolam 0.25 MG TABLET PO PRN ×2 (00:59→21:15)
[2016-09-28] MEDS ORDERED: PT OWN MED DRAWER 7, Y5N ONE ×5 (01:42→20:58)
[2016-09-28] MEDS: KETOROLAC TROMETHAMINE 10 MG TABLET PO PRN ×3 (01:43→21:16)
[2016-09-28] MEDS: DOCUSATE SODIUM 100 MG CAPSULE (FP) PO SCH ×2 (06:18→13:18)
[2016-09-28] MEDS: INSULIN DETEMIR 100 UNITS/ML MDV SQ SCH ×2 (06:18→21:22)
[2016-09-28] MEDS: INSULIN SLIDING SCALE (NOVOLOG) 1 VIAL SQ SCH ×2 (06:28→17:22)
[2016-09-28 06:32] LABS: BASOPHIL 1.1 % (0-2.0); EOSINOPHIL 3.8 % (0-4.5); MCH 27.4 pg (25.7-33.7); MEAN CELL VOLUME 88.4 fl (80-96); MEAN PLT VOLUME 8.1 fl (7.5-11.1); NEUTROPHILS 68.6 % (42.8-82.8); PLATELET COUNT 466 K/MM3 (134-434); RDW 17.2 % (11.6-15.6); WHITE BLOOD COUNT 10.2 K/mm3 (4.0-10.0)
[2016-09-28] MEDS: CALCIUM ACETATE 667 MG CAPSULE (FP) PO SCH ×3 (08:00→18:08)
[2016-09-28 08:47] LABS: MCH 28.2 pg (25.7-33.7); MEAN CELL VOLUME 88.2 fl (80-96); MEAN PLT VOLUME 7.9 fl (7.5-11.1); PLATELET COUNT 419 K/MM3 (134-434); RDW 17.1 % (11.6-15.6); WHITE BLOOD COUNT 9.5 K/mm3 (4.0-10.0)
[2016-09-28] MEDS ORDERED: VANCOMYCIN 1 GRAM (PRE-DOCKED) 250 ML IVPB ONE (09:00)
[2016-09-28] MEDS ORDERED: GENTAMICIN 80 MG PREMIXED IVPB 100 ML IVPB ONE (09:00)
[2016-09-28] MEDS ORDERED: EPOETIN ALFA 20,000 UNIT/1 ML VIAL IVPUSH ONE (09:00)
[2016-09-28 09:11] LABS: ALBUMIN 2.2 g/dl (3.4-5.0); ANION GAP 10 (8-16); BILIRUBIN,TOTAL 0.4 mg/dL (0.2-1.0); CALCIUM 8.5 mg/dL (8.5-10.1); CO2 31 mmol/L (21-32); GLUCOSE,RANDOM 99 mg/dL (74-106); PHOSPHOROUS 3.8 mg/dL (2.5-4.9); SGOT/AST 7 U/L (15-37); SGPT/ALT < 6 U/L (12-78); TOT PROT 5.8 g/dl (6.4-8.2)
[2016-09-28 09:12] LABS: ALK PHOS 82 U/L (45-117)
[2016-09-28] MEDS: CEFAZOLIN 0.5 GM in DEXTROSE 5%-WATER - 50 ML IVPB SCH ×2 (09:39→21:15)
[2016-09-28] MEDS: BISACODYL 5 MG TABLET.DR (FP) PO SCH (09:54)
[2016-09-28] MEDS: HEPARIN NA (PORCINE) 5,000 UNITS/ML 1ML VIAL SQ SCH ×2 (10:00→21:17)
[2016-09-28] MEDS ORDERED: VANCOMYCIN 750 MG in DEXTROSE 5%-WATER - 250 ML IVPB ONE (10:00)
--- NOTE | 2016-09-28 11:16 | PN ---
Progress Note (short form) - Note Progress Note: Renal Follow up for ESRD Pt seen and examined during dialysis BP stable, Goal UF is 2.5L No chest pain, fever or chills has diarrhea x 5 episodes this am Vital Signs Temperature 97.4 F L 09/28/16 07:40 Pulse Rate 58 L 09/28/16 09:45 Respiratory Rate 18 09/28/16 09:45 Blood Pressure 84/40 09/28/16 09:45 O2 Sat by Pulse Oximetry (%) 95 09/27/16 21:00 Intake & Output 09/25/16 09/26/16 09/27/16 09/28/16 23:59 23:59 23:59 23:59 Intake Total 600 1410 1210 0 Balance 600 1410 1210 0 Weight 205 lb 6 oz 203 lb 8 oz Gen: NAD, awake and alert CVS: RRR, no M/R Lungs:CTA no rales or wheeze Abd: soft NT/ND Ext: No edema, clubbing or cyanosis CBC, BMP 09/28/16 07:50 09/28/16 07:50 Laboratory Tests 09/28/16 07:50 Random Glucose 99 Calcium 8.5 Phosphorus 3.8 Albumin 2.2 L Current Medications Acetaminophen/Codeine Phosphate (Tylenol # 3 -) 1 tab PO Q4H PRN Alprazolam (Xanax -) 0.25 mg PO BID PRN PRN Reason: ANXIETY Last Admin: 09/28/16 00:59 Dose: 0.25 mg Bisacodyl (Dulcolax -) 10 mg PO DAILY [facility] Last Admin: 09/28/16 09:54 Dose: Not Given Calamine (Calamine 8% Topical Lotion -) 1 applic TP QID PRN PRN Reason: FOR ITCHING Calcium Acetate (Phoslo -) 667 mg PO TIDCM [facility] Last Admin: 09/28/16 08:00 Dose: Not Given Clopidogrel Bisulfate (Plavix -) 75 mg PO DAILY [facility] Last Admin: 09/27/16 09:30 Dose: 75 mg Cyanocobalamin (Vitamin B12 -) 100 mcg PO DAILY [facility] Last Admin: 09/27/16 09:32 Dose: 100 mcg Diphenhydramine HCl (Benadryl -) 25 mg PO Q6H PRN PRN Reason: FOR ITCHING Last Admin: 09/24/16 21:59 Dose: 25 mg Docusate Sodium (Colace -) 100 mg PO TID [facility] Last Admin: 09/28/16 06:18 Dose: 100 mg Heparin Sodium (Porcine) (Heparin -) 5,000 unit SQ BID [facility] Last Admin: 09/27/16 21:57 Dose: 5,000 unit Cefazolin Sodium 0.5 gm/ (Dextrose) 50 mls @ 100 mls/hr IVPB BID [facility] Last Admin: 09/28/16 09:39 Dose: 100 mls/hr Insulin Aspart (Novolog Vial Sliding Scale -) 1 vial SQ BIDAC [facility] PRN Reason: Protocol Last Admin: 09/28/16 06:28 Dose: Not Given Insulin Detemir (Levemir Vial) 18 units SQ HS [facility] Last Admin: 09/27/16 21:57 Dose: 18 units Insulin Detemir (Levemir Vial) 20 units SQ ACBK [facility] Last Admin: 09/28/16 06:18 Dose: 20 units Ketorolac Tromethamine (Toradol) 10 mg PO Q8H PRN PRN Reason: PAIN Stop: 09/29/16 07:14 Last Admin: 09/28/16 09:36 Dose: 10 mg Metoprolol Succinate (Toprol Xl -) 12.5 mg PO DAILY [facility] Last Admin: 09/27/16 09:31 Dose: 12.5 mg Nystatin (Mycostatin Cream -) 1 applic TP BID [facility] Last Admin: 09/27/16 21:57 Dose: 1 applic Ondansetron HCl (Zofran Injection) 4 mg IVPUSH Q6H PRN PRN Reason: NAUSEA AND/OR VOMITING Pantoprazole Sodium (Protonix -) 40 mg PO DAILY [facility] Last Admin: 09/27/16 09:30 Dose: 40 mg Senna (Senna -) 2 tab PO HS PRN PRN Reason: CONSTIPATION Last Admin: 09/27/16 06:11 Dose: 2 tab Silver Sulfadiazine (Silvadene -) 1 applic TP DAILY [facility] Last Admin: 09/27/16 09:31 Dose: 1 applic Simethicone (Mylicon -) 80 mg PO QID PRN PRN Reason: GAS Last Admin: 09/26/16 08:13 Dose: 80 mg A/P 71 year old woman with PMhx of ESRD on HD (MWF), PVD, IDDM presents with AVG site infection. Pt s/p HeRO graft placement in July in the right ARM complicated by graft dislodgement and hematoma formation. #ESRD on HD with Infected HeRO graft site Tolerating HD well today Goal UF is 2.5L Continue Vanco/Gent with HD PO Abx as per ID when ok to do so #Breast lesion/tenderness Us of breast noted no cyst/abcess + calcifications Repeat US as per Sx #Anemia Continue FALLON with HD #Diarrhea Check stool C-diff today Wan Cruz DO
[2016-09-28] MEDS: METOPROLOL SUCCINATE 25 MG TAB.SR.24H (FP) PO SCH (13:15)
[2016-09-28] MEDS: NYSTATIN 100,000 UNIT/GM TOPICAL CREAM 15 GM TUBE TP SCH ×2 (13:15→21:17)
[2016-09-28] MEDS: PANTOPRAZOLE 40 MG TABLET (FP) PO SCH (13:15)
[2016-09-28] MEDS: CLOPIDOGREL BISULFATE 75 MG TABLET (FP) PO SCH (13:15)
[2016-09-28] MEDS: CYANOCOBALAMIN (VITAMIN B-12) 100 MCG TABLET PO SCH (13:16)
--- NOTE | 2016-09-28 14:03 | PN ---
Progress Note, Physician Chief Complaint: having loose stools today about 7 times so far received stool softeners and laxatives yesterday and this morning no abd pain no arm pain decreased left breast pain she did not want to be dc due to loose stools - Current Medication List Current Medications: Active Medications Acetaminophen/Codeine Phosphate (Tylenol # 3 -) 1 tab PO Q4H PRN Alprazolam (Xanax -) 0.25 mg PO BID PRN PRN Reason: ANXIETY Last Admin: 09/28/16 00:59 Dose: 0.25 mg Bisacodyl (Dulcolax -) 10 mg PO DAILY [facility] Last Admin: 09/28/16 09:54 Dose: Not Given Calamine (Calamine 8% Topical Lotion -) 1 applic TP QID PRN PRN Reason: FOR ITCHING Calcium Acetate (Phoslo -) 667 mg PO TIDCM [facility] Last Admin: 09/28/16 13:14 Dose: 667 mg Clopidogrel Bisulfate (Plavix -) 75 mg PO DAILY [facility] Last Admin: 09/28/16 13:15 Dose: 75 mg Cyanocobalamin (Vitamin B12 -) 100 mcg PO DAILY [facility] Last Admin: 09/28/16 13:16 Dose: 100 mcg Diphenhydramine HCl (Benadryl -) 25 mg PO Q6H PRN PRN Reason: FOR ITCHING Last Admin: 09/24/16 21:59 Dose: 25 mg Docusate Sodium (Colace -) 100 mg PO TID [facility] Last Admin: 09/28/16 13:18 Dose: Not Given Heparin Sodium (Porcine) (Heparin -) 5,000 unit SQ BID [facility] Last Admin: 09/28/16 10:00 Dose: Not Given Cefazolin Sodium 0.5 gm/ (Dextrose) 50 mls @ 100 mls/hr IVPB BID [facility] Last Admin: 09/28/16 09:39 Dose: 100 mls/hr Insulin Aspart (Novolog Vial Sliding Scale -) 1 vial SQ BIDAC [facility] PRN Reason: Protocol Last Admin: 09/28/16 06:28 Dose: Not Given Insulin Detemir (Levemir Vial) 18 units SQ HS [facility] Last Admin: 09/27/16 21:57 Dose: 18 units Insulin Detemir (Levemir Vial) 20 units SQ ACBK [facility] Last Admin: 09/28/16 06:18 Dose: 20 units Ketorolac Tromethamine (Toradol) 10 mg PO Q8H PRN PRN Reason: PAIN Stop: 09/29/16 07:14 Last Admin: 09/28/16 09:36 Dose: 10 mg Metoprolol Succinate (Toprol Xl -) 12.5 mg PO DAILY [facility] Last Admin: 09/28/16 13:15 Dose: 12.5 mg Nystatin (Mycostatin Cream -) 1 applic TP BID [facility] Last Admin: 09/28/16 13:15 Dose: 1 applic Ondansetron HCl (Zofran Injection) 4 mg IVPUSH Q6H PRN PRN Reason: NAUSEA AND/OR VOMITING Pantoprazole Sodium (Protonix -) 40 mg PO DAILY [facility] Last Admin: 09/28/16 13:15 Dose: 40 mg Senna (Senna -) 2 tab PO HS PRN PRN Reason: CONSTIPATION Last Admin: 09/27/16 06:11 Dose: 2 tab Silver Sulfadiazine (Silvadene -) 1 applic TP DAILY [facility] Last Admin: 09/27/16 09:31 Dose: 1 applic Simethicone (Mylicon -) 80 mg PO QID PRN PRN Reason: GAS Last Admin: 09/26/16 08:13 Dose: 80 mg - Objective Vital Signs: Vital Signs Temperature 98.7 F 09/28/16 13:33 Pulse Rate 52 L 09/28/16 13:33 Respiratory Rate 18 09/28/16 13:33 Blood Pressure 152/58 09/28/16 13:33 O2 Sat by Pulse Oximetry (%) 95 09/27/16 21:00 Constitutional: Yes: No Distress Cardiovascular: Yes: Regular Rate and Rhythm Respiratory: Yes: Diminished Gastrointestinal: Yes: Normal Bowel Sounds, Soft, Abdomen, Obese. No: Distention, Tenderness Edema: No Labs: CBC, BMP 09/28/16 07:50 09/28/16 07:50 INR, PTT INR 1.20 (0.82-1.09) H 09/17/16 12:22 Problem List - Problems (1) Dialysis AV fistula infection Code(s): T82.7XXA - INFECT/INFLM REACT D/T OTH CARDI/VASC DEV/IMPLNT/GRFT, INIT Qualifiers: Encounter type: initial encounter Qualified Code(s): T82.7XXA - Infection and inflammatory reaction due to other cardiac and vascular devices, implants and grafts, initial encounter (2) ESRD on hemodialysis Code(s): N18.6 - END STAGE RENAL DISEASE Z99.2 - DEPENDENCE ON RENAL DIALYSIS (3) Diabetes Code(s): E11.9 - TYPE 2 DIABETES MELLITUS WITHOUT COMPLICATIONS Qualifiers: Diabetes mellitus type: type 1 Diabetes mellitus complication status: with circulatory complication Diabetes mellitus complication detail: with other circulatory complications Qualified Code(s): E10.59 - Type 1 diabetes mellitus with other circulatory complications (4) Steal syndrome dialysis vascular access Code(s): T82.898A - [facility] COMPLICATION OF VASCULAR PROSTH DEV/GRFT, INIT Qualifiers: Encounter type: subsequent encounter Qualified Code(s): T82.898D - Other specified complication of vascular prosthetic devices, implants and grafts , subsequent encounter (5) Breast pain, left Code(s): N64.4 - MASTODYNIA Assessment/Plan PLAN -- Ecoli in wound -- iv antibiotics per ID -- wound care -- warm compresses to left breast -- possibly traumatic cause for left breast induration --noted Breast surgeon eval- ? biopsy -- diarrhea may be due to overuse of laxatives or antibiotics as pt does have h/ o diarrhea when taking Amoxicillin but will check cdiff stool --- monitor glucose -- continue with meds -- dc planning
[2016-09-28] MEDS: SILVER SULFADIAZINE 1% TOP CREAM 50 GM JAR TP SCH (15:00)
[2016-09-28] MEDS ORDERED: INSULIN (NOVOLOG) ASPART 100 UNITS/ML 10ML VIAL ONE (20:59)
[2016-09-28] MEDS: SIMETHICONE 80 MG TAB.CHEW (FP) PO PRN (21:15)
[2016-09-29] MEDS: INSULIN DETEMIR 100 UNITS/ML MDV SQ SCH (06:51)
[2016-09-29] MEDS: INSULIN SLIDING SCALE (NOVOLOG) 1 VIAL SQ SCH (06:52)
[2016-09-29 07:41] LABS: BASOPHIL 1.2 % (0-2.0); EOSINOPHIL 2.8 % (0-4.5); MCH 27.7 pg (25.7-33.7); MCHC 31.2 g/dl (32.0-36.0); NEUTROPHILS 72.6 % (42.8-82.8); PLATELET COUNT 456 K/MM3 (134-434); RDW 17.2 % (11.6-15.6); WHITE BLOOD COUNT 11.2 K/mm3 (4.0-10.0)
[2016-09-29] MEDS ORDERED: PT OWN MED DRAWER 7, Y5N ONE ×2 (07:43→11:09)
[2016-09-29] MEDS: SIMETHICONE 80 MG TAB.CHEW (FP) PO PRN (07:46)
[2016-09-29 08:08] LABS: CALCIUM 8.5 mg/dL (8.5-10.1); MAGNESIUM 2.1 mg/dL (1.8-2.4)
[2016-09-29 08:11] LABS: CREATININE 5.2 mg/dL (0.55-1.02); PHOSPHOROUS 2.8 mg/dL (2.5-4.9)
[2016-09-29] MEDS: PANTOPRAZOLE 40 MG TABLET (FP) PO SCH (09:52)
[2016-09-29] MEDS: METOPROLOL SUCCINATE 25 MG TAB.SR.24H (FP) PO SCH (09:52)
[2016-09-29] MEDS: CLOPIDOGREL BISULFATE 75 MG TABLET (FP) PO SCH (09:53)
[2016-09-29] MEDS: NYSTATIN 100,000 UNIT/GM TOPICAL CREAM 15 GM TUBE TP SCH (09:53)
[2016-09-29] MEDS: CALCIUM ACETATE 667 MG CAPSULE (FP) PO SCH ×2 (09:53→12:30)
[2016-09-29] MEDS: HEPARIN NA (PORCINE) 5,000 UNITS/ML 1ML VIAL SQ SCH (09:53)
[2016-09-29] MEDS: CYANOCOBALAMIN (VITAMIN B-12) 100 MCG TABLET PO SCH (09:53)
[2016-09-29] MEDS: SILVER SULFADIAZINE 1% TOP CREAM 50 GM JAR TP SCH (09:53)
--- NOTE | 2016-09-29 10:26 | PN ---
Progress Note (short form) - Note Progress Note: PT states that she is having some pain today in her RUE. The diarrhea has improved and she hasn't had any diarrhea overnight. Vital Signs Period Temp Pulse Resp BP Sys/Cordero Pulse Ox Last 24 Hr 98.5 F-98.7 F 45-56 18-20 131-163/39-58 95-96 PE: RUE: overall less slough in the wound base, it is pink and granulating at the base. Local debridement with dressing change today. Arm without any swelling. Sutures to right chest/inc appears clean. Permacath to the right chest. CBC, BMP 09/29/16 06:30 09/29/16 06:30 C diff pending Problem List - Problems (1) ESRD on hemodialysis Assessment/Plan: Cont HD via PC c difficle pending Contninue local wound care with wet to dry/peroxide Code(s): N18.6 - END STAGE RENAL DISEASE Z99.2 - DEPENDENCE ON RENAL DIALYSIS
--- NOTE | 2016-09-29 11:27 | PN ---
Progress Note (short form) - Note Progress Note: Renal Follow up for ESRD Pt seen and examined at the bedside continues to have tenderness in the breast and some chest discomfort earlier diarrhea resolved no N/V/Fever/SOB Vital Signs Temperature 98.7 F 09/29/16 06:00 Pulse Rate 45 L 09/29/16 06:00 Respiratory Rate 18 09/29/16 06:00 Blood Pressure 163/50 09/29/16 06:00 O2 Sat by Pulse Oximetry (%) 96 09/28/16 22:00 Intake & Output 09/26/16 09/27/16 09/28/16 09/29/16 23:59 23:59 23:59 23:59 Intake Total 1410 1210 1150 0 Balance 1410 1210 1150 0 Weight 203 lb 8 oz Gen: NAD, awake and alert CVS: RRR, no M/R Lungs:CTA no rales or wheeze Abd: soft NT/ND Ext: No edema, clubbing or cyanosis CBC, BMP 09/29/16 06:30 09/29/16 06:30 Current Medications Acetaminophen/Codeine Phosphate (Tylenol # 3 -) 1 tab PO Q4H PRN Alprazolam (Xanax -) 0.25 mg PO BID PRN PRN Reason: ANXIETY Last Admin: 09/28/16 21:15 Dose: 0.25 mg Bisacodyl (Dulcolax -) 10 mg PO DAILY [facility] Last Admin: 09/28/16 09:54 Dose: Not Given Calamine (Calamine 8% Topical Lotion -) 1 applic TP QID PRN PRN Reason: FOR ITCHING Calcium Acetate (Phoslo -) 667 mg PO TIDCM [facility] Last Admin: 09/29/16 09:53 Dose: 667 mg Clopidogrel Bisulfate (Plavix -) 75 mg PO DAILY [facility] Last Admin: 09/29/16 09:53 Dose: 75 mg Cyanocobalamin (Vitamin B12 -) 100 mcg PO DAILY [facility] Last Admin: 09/29/16 09:53 Dose: 100 mcg Diphenhydramine HCl (Benadryl -) 25 mg PO Q6H PRN PRN Reason: FOR ITCHING Last Admin: 09/24/16 21:59 Dose: 25 mg Docusate Sodium (Colace -) 100 mg PO TID [facility] Last Admin: 09/28/16 13:18 Dose: Not Given Heparin Sodium (Porcine) (Heparin -) 5,000 unit SQ BID [facility] Last Admin: 09/29/16 09:53 Dose: 5,000 unit Cefazolin Sodium 0.5 gm/ (Dextrose) 50 mls @ 100 mls/hr IVPB BID [facility] Last Admin: 09/28/16 21:15 Dose: 100 mls/hr Insulin Aspart (Novolog Vial Sliding Scale -) 1 vial SQ BIDAC [facility] PRN Reason: Protocol Last Admin: 09/29/16 06:52 Dose: Not Given Insulin Detemir (Levemir Vial) 18 units SQ HS [facility] Last Admin: 09/28/16 21:22 Dose: 18 units Insulin Detemir (Levemir Vial) 20 units SQ ACBK [facility] Last Admin: 09/29/16 06:51 Dose: 20 units Metoprolol Succinate (Toprol Xl -) 12.5 mg PO DAILY [facility] Last Admin: 09/29/16 09:52 Dose: 12.5 mg Nystatin (Mycostatin Cream -) 1 applic TP BID [facility] Last Admin: 09/29/16 09:53 Dose: 1 applic Ondansetron HCl (Zofran Injection) 4 mg IVPUSH Q6H PRN PRN Reason: NAUSEA AND/OR VOMITING Last Admin: 09/28/16 14:37 Dose: 4 mg Pantoprazole Sodium (Protonix -) 40 mg PO DAILY [facility] Last Admin: 09/29/16 09:52 Dose: 40 mg Senna (Senna -) 2 tab PO HS PRN PRN Reason: CONSTIPATION Last Admin: 09/27/16 06:11 Dose: 2 tab Silver Sulfadiazine (Silvadene -) 1 applic TP DAILY [facility] Last Admin: 09/29/16 09:53 Dose: 1 applic Simethicone (Mylicon -) 80 mg PO QID PRN PRN Reason: GAS Last Admin: 09/29/16 07:46 Dose: 80 mg A/P 71 year old woman with PMhx of ESRD on HD (MWF), PVD, IDDM presents with AVG site infection. Pt s/p HeRO graft placement in July in the right ARM complicated by graft dislodgement and hematoma formation. #ESRD on HD with Infected HeRO graft site No indication for dialysis today Next treatment planned for tomorrow continue Abx as per ID (off Vanco and Gent) #Breast lesion/tenderness Us of breast noted no cyst/abcess + calcifications Surgical follow up #Anemia Continue FALLON with HD #Diarrhea C-diff pending diarrhea improved Wan Cruz DO
[2016-09-29] MEDS: CEFAZOLIN 0.5 GM in DEXTROSE 5%-WATER - 50 ML IVPB SCH (11:32)
[2016-09-29] MEDS ORDERED: KETOROLAC TROMETHAMINE 10 MG TABLET PO PRN (12:42)
--- NOTE | 2016-09-29 12:44 | PN ---
[id number] Signs - 24 hr 09/28/16 09/28/16 09/28/16 13:00 13:33 18:00 Temperature 98.7 F 98.5 F Pulse Rate 52 L 46 L Respiratory 18 20 Rate Blood Pressure 152/58 156/52 O2 Sat by Pulse 95 Oximetry (%) 09/28/16 09/28/16 09/29/16 22:00 22:23 06:00 Temperature 98.5 F 98.7 F Pulse Rate 56 L 45 L Respiratory 18 18 Rate Blood Pressure 131/39 163/50 O2 Sat by Pulse 96 Oximetry (%) Current Medications Generic Name Dose Route Start Last Admin Trade Name Freq PRN Reason Stop Dose Admin Alprazolam 0.25 mg 09/26/16 10:53 09/28/16 21:15 Xanax - PO 0.25 mg BID PRN Administration ANXIETY Bisacodyl 10 mg 09/23/16 18:15 09/28/16 09:54 Dulcolax - PO Not Given DAILY [facility] Calamine 1 applic 09/21/16 12:02 Calamine 8% Topical Lotion - TP QID PRN FOR ITCHING Calcium Acetate 667 mg 09/18/16 12:00 09/29/16 12:30 Phoslo - PO 667 mg TIDCM [facility] Administration Clopidogrel Bisulfate 75 mg 09/19/16 10:00 09/29/16 09:53 Plavix - PO 75 mg DAILY [facility] Administration Cyanocobalamin 100 mcg 09/19/16 10:00 09/29/16 09:53 Vitamin B12 - PO 100 mcg DAILY [facility] Administration Diphenhydramine HCl 25 mg 09/21/16 12:02 09/24/16 21:59 Benadryl - PO 25 mg Q6H PRN Administration FOR ITCHING Docusate Sodium 100 mg 09/18/16 14:00 09/28/16 13:18 Colace - PO Not Given TID [facility] Heparin Sodium (Porcine) 5,000 unit 09/26/16 22:00 09/29/16 09:53 Heparin - SQ 5,000 unit BID [facility] Administration Cefazolin Sodium 0.5 gm/ 50 mls @ 100 mls/hr 09/25/16 13:45 09/29/16 11:32 Dextrose IVPB 100 mls/hr BID [facility] Administration Insulin Aspart 1 vial 09/26/16 16:30 01/04/17 06:52 Novolog Vial Sliding Scale - SQ Not Given BIDAC [facility] Protocol Insulin Detemir 18 units 09/18/16 22:00 09/28/16 21:22 Levemir Vial SQ 18 units HS [facility] Administration Insulin Detemir 20 units 09/19/16 07:00 09/29/16 06:51 Levemir Vial SQ 20 units ACBK [facility] Administration Ketorolac Tromethamine 10 mg 09/29/16 12:42 Toradol PO 10/04/16 17:59 Q6HPO PRN BACK PAIN Metoprolol Succinate 12.5 mg 09/19/16 10:00 09/29/16 09:52 Toprol Xl - PO 12.5 mg DAILY [facility] Administration Nystatin 1 applic 09/24/16 10:00 09/29/16 09:53 Mycostatin Cream - TP 1 applic BID [facility] Administration Ondansetron HCl 4 mg 09/25/16 11:14 09/28/16 14:37 Zofran Injection IVPUSH 4 mg Q6H PRN Administration NAUSEA AND/OR VOMITING Pantoprazole Sodium 40 mg 09/19/16 10:00 09/29/16 09:52 Protonix - PO 40 mg DAILY [facility] Administration Senna 2 tab 09/18/16 22:00 09/27/16 06:11 Senna - PO 2 tab HS PRN Administration CONSTIPATION Silver Sulfadiazine 1 applic 09/26/16 15:00 09/29/16 09:53 Silvadene - TP 1 applic DAILY [facility] Administration Simethicone 80 mg 09/25/16 12:20 09/29/16 07:46 Mylicon - PO 80 mg QID PRN Administration GAS Laboratory Results - last 24 hr 09/28/16 09/28/16 09/29/16 17:21 21:20 06:30 WBC 11.2 H RBC 3.36 L Hgb 9.3 L Hct 29.9 L MCV 89.0 MCHC 31.2 L RDW 17.2 H Plt Count 456 H MPV 8.0 Neutrophils % 72.6 Lymphocytes % 16.7 Monocytes % 6.7 Eosinophils % 2.8 Basophils % 1.2 Sodium Potassium Chloride Carbon Dioxide Anion Gap BUN Creatinine POC Glucometer 148 299 Random Glucose Calcium Phosphorus Magnesium 09/29/16 09/29/16 06:30 06:44 WBC RBC Hgb Hct MCV MCHC RDW Plt Count MPV Neutrophils % Lymphocytes % Monocytes % Eosinophils % Basophils % Sodium 142 Potassium 3.9 Chloride 96 L Carbon Dioxide 36 H Anion Gap 10 BUN 16 D Creatinine 5.2 H D POC Glucometer 104 Random Glucose 87 Calcium 8.5 Phosphorus 2.8 D Magnesium 2.1 S1 S2 RRR Lungs decreased Rt arm dressing in place Left breast- well defined mass, smaller,tender+scab+ no abd tenderness No edema PLAN Cdiff negative continue with antibiotics dc planning change to po keflex Problem List - Problems (1) Dialysis AV fistula infection Code(s): T82.7XXA - INFECT/INFLM REACT D/T OTH CARDI/VASC DEV/IMPLNT/GRFT, INIT Qualifiers: Encounter type: initial encounter Qualified Code(s): T82.7XXA - Infection and inflammatory reaction due to other cardiac and vascular devices, implants and grafts, initial encounter (2) ESRD on hemodialysis Code(s): N18.6 - END STAGE RENAL DISEASE Z99.2 - DEPENDENCE ON RENAL DIALYSIS (3) Diabetes Code(s): E11.9 - TYPE 2 DIABETES MELLITUS WITHOUT COMPLICATIONS Qualifiers: Diabetes mellitus type: type 1 Diabetes mellitus complication status: with circulatory complication Diabetes mellitus complication detail: with other circulatory complications Qualified Code(s): 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
[2016-09-29 13:37] VITALS: BP 157/67; TEMP 98.4
[2016-09-29 14:51] VITALS: PULSE 80
[2016-09-29] MEDS: ALPRAZolam 0.25 MG TABLET PO PRN (15:09)
== END 2016-09-29 16:55 | DRG 252 ==
LOC: JER 11:23 → JERBED 13:17 → J5S 15:30
PROVIDERS: ADMIT Internal Medicine; ATTEND Internal Medicine
PROC: 02H633Z Insertion of Infusion Device into Right Atrium, Percutaneous Approach (ICD-10-PCS; 2016-09-18)
PROC: 0JH60XZ Insertion of Tunneled Vascular Access Device into Chest Subcutaneous Tissue and Fascia, Open Approach (ICD-10-PCS; 2016-09-18)
PROC: 5A1D60Z (ICD-10-PCS; 2016-09-18)
PROC: 0JBD0ZZ Excision of Right Upper Arm Subcutaneous Tissue and Fascia, Open Approach (ICD-10-PCS; principal; 2016-09-18 08:00)
PROC: 05PY03Z Removal of Infusion Device from Upper Vein, Open Approach (ICD-10-PCS; 2016-09-18 08:00)
DX: T82.7XXA Infection and inflammatory reaction due to other cardiac and vascular devices, implants and grafts, initial encounter (principal); N18.6 End stage renal disease; I12.0 Hypertensive chronic kidney disease with stage 5 chronic kidney disease or end stage renal disease; Y83.8 Other surgical procedures as the cause of abnormal reaction of the patient, or of later complication, without mention of misadventure at the time of the procedure; Y92.89 Other specified places as the place of occurrence of the external cause; D63.1 Anemia in chronic kidney disease; E03.9 Hypothyroidism, unspecified; E78.5 Hyperlipidemia, unspecified; J44.9 Chronic obstructive pulmonary disease, unspecified; I25.118 Atherosclerotic heart disease of native coronary artery with other forms of angina pectoris; E87.5 Hyperkalemia; I73.89 Other specified peripheral vascular diseases; N63 Unspecified lump in breast; N64.4 Mastodynia; Z95.5 Presence of coronary angioplasty implant and graft; Z89.431 Acquired absence of right foot; Z99.2 Dependence on renal dialysis; Z79.4 Long term (current) use of insulin
CPT/HCPCS: 36415; 71010-TC; 72192-TC; 74000-TC; 74150-TC; 76000-TC; 76641-TC-LT; 80048; 80053; 82550; 83735; 84100; 84439; 84443; 84484; 85025; 85027; 85610; 86140; 86704; 86706; 86708; 86803; 86850; 86870; 86900; 86901; 86902; 87040; 87070; 87077; 87186; 87205; 87324; 87340; 87449; 88300-TC; 88304-TC; 93005; 93010; 93306-TC; 94010; 94760; 97001-GP; 99282-25; G0480; J0885; J1644

== ENCOUNTER 2016-12-23 13:28 | Inpatient (IN) | payer OTHER ==
[2016-12-23 13:32] VITALS: BMI 29.7
--- NOTE | 2016-12-23 14:45 | PDOC ---
History of Present Illness - General History Source: Patient Exam Limitations: No Limitations - History of Present Illness Initial Comments: 12/23/16 14:53 The patient is a 71 year old female, with a significant past medical history of R AKA, ESRD (on HD MW has permacath for 3 months), diabetes, CABG, and hypothyroid who presents to the emergency department with new onset Afib sent by Dr. Lopez. Patient notes that over the past 2 days she has been experiencing chest pressure and fluttering at night. She notes that she had breast debridement for an abcess on the left breast on 11/[address] at [facility]. Patient notes that she had hyalograft for HD that was removed because it was infected. She denies chest pain, shortness of breath, TAN, headache and lightheadednes/ sdizziness. She denies fever, chills, nausea, vomit, melena/bpr/diarrhea and constipation. She denies dysuria, frequency, urgency and hematuria. Past surgical history: Right AKA, left Carballo Amputation PCP: Dr. Morales Galarza [facility] - Dr. Lopez Vascular: Dr. Hilton Plastic Surgery - Dr. Moreno Mckenna <Sammie Ceron - Last Filed: 12/23/16 16:32> <Bulmaro Hidalgo - Last Filed: 12/23/16 16:39> - General Chief Complaint: Irregular Heart Beat Stated Complaint: IRREGULAR HEARTBEAT (PCP SENT) Time Seen by Provider: 12/23/16 13:34 Past History <Sammie Ceron - Last Filed: 12/23/16 16:32> - Past Medical History Anemia: Yes Asthma: No Cancer: No Cardiac Disorders: Yes (STENTS TIMES THREE) CVA: No COPD: No CHF: Yes Dementia: No Diabetes: Yes (IDDM) GI Disorders: No Disorders: Yes (CRF;dialysis [facility] [id number]) HTN: Yes Hypercholesterolemia: Yes Liver Disease: No Suicide Attempt (Hx): No Seizures: No Thyroid Disease: Yes - Surgical History Abdominal Surgery: No Appendectomy: No Cardiac Surgery: Yes (STENTS X3) Cholecystectomy: No Lung Surgery: No Neurologic Surgery: No Orthopedic Surgery: Yes (R.Rotator Cuff, R.AKA. LEFT MID FOOT AMPUTATION) - Immunization History Immunization Up to Date: Yes - Psycho/Social/Smoking Cessation Hx Anxiety: No Suicidal Ideation: No Smoking Status: No Smoking History: Never smoked Have you smoked in the past 12 months: No Number of Cigarettes Smoked Daily: 0 Information on smoking cessation initiated: No Hx Alcohol Use: No Drug/Substance Use Hx: No Substance Use Type: None Hx Substance Use Treatment: No <RockyBonyBulmaro - Last Filed: 12/23/16 16:39> - Past Medical History Allergies/Adverse Reactions: Allergies Allergy/AdvReac Type Severity Reaction Status Date / Time Sulfa (Sulfonamide Allergy Unknown Verified 12/23/16 13:32 Antibiotics) [Sulfa(Sulfonamide Antibiotics)] amoxicillin trihydrate AdvReac Severe Verified 12/23/16 13:32 [From Augmentin] potassium clavulanate AdvReac Severe Verified 12/23/16 13:32 [From Augmentin] tape AdvReac Severe Uncoded 12/23/16 13:32 Home Medications: Ambulatory Orders Insulin (Levemir) [Levemir Flexpen -] 18 units SQ HS 08/20/14 Aspirin [ASA -] 81 mg PO DAILY #90 tab.chew 08/29/14 Clopidogrel Bisulfate [Plavix -] 75 mg PO DAILY #90 tablet 08/29/14 Cyanocobalamin [Vitamin B12 -] 100 mcg PO DAILY #90 tablet 08/29/14 Insulin (Levemir) [Levemir Flexpen -] 20 units SQ AM #90 pen 08/29/14 Pantoprazole Sodium [Protonix -] 40 mg PO DAILY #30 tablet.ec 08/29/14 Calcium Acetate [Phoslo -] 667 mg PO TID 04/06/16 Levothyroxine [Synthroid -] 213 mcg PO DAILY 08/10/16 Metoprolol Succinate [Toprol XL -] 12.5 mg PO DAILY 08/10/16 Alprazolam [Xanax] 0.25 mg PO DAILY PRN #30 tablet MDD 1 08/14/16 Alprazolam [Xanax] 0.25 mg PO BID PRN #60 tablet MDD 2 09/27/16 Calamine 8% Topical Lotion - 1 applic TP QID PRN #1 bottle 09/27/16 Diphenhydramine HCl [Benadryl Capsule -] 25 mg PO Q6H PRN #30 capsule 09/27/16 Heparin - 5,000 unit SQ BID #60 vial 09/27/16 Insulin Sliding Scale [Novolog Vial Sliding Scale -] 1 vial SQ ACHS units 09/27 Ketorolac Tromethamine [Toradol -] 10 mg PO Q8H PRN #60 tablet 09/27/16 Sennosides [Senna -] 2 tab PO HS PRN #60 tablet 09/27/16 Silver Sulfadiazine 1% Top Cr [Silvadene -] 1 applic TP DAILY #1 jar 09/27/16 Simethicone [Mylicon -] 80 mg PO QID PRN #20 tab.chew 09/27/16 Cephalexin [Keflex] 500 mg PO BID #10 capsule 09/28/16 Review of Systems - Review of Systems Able to Perform ROS?: Yes Comments:: 12/23/16 14:54 CONSTITUTIONAL: No reported: Fever, Chills, Diaphoresis, Generalized Weakness, Malaise, Loss of Appetite HEENT: No reported: Rhinorrhea, Nasal Congestion, Throat Pain, Throat Swelling, Difficulty Swallowing, Mouth Swelling, Ear Pain, Eye Pain, Visual Changes CARDIOVASCULAR: No reported: Chest Pain, Syncope, Palpitations, Irregular Heart Rate, Lightheadedness, Peripheral Edema RESPIRATORY: No reported: Cough, Shortness of Breath, SOB with Exertion, Orthopnea, Wheezing , Stridor, Hemoptysis GASTROINTESTINAL: No reported: Abdominal pain, Abdominal Distension, Nausea, Vomiting, Diarrhea, Constipation, Melena, Hematochezia GENITOURINARY: No reported: Dysuria, Frequency, Urgency, Hesitancy, Flank Pain, Genital Pain MUSCULOSKELETAL: Reported: left breast pain. No reported: Myalgia, Arthralgia, Joint Swelling, Back pain, Neck Pain SKIN: No reported: Rash, Itching, Pallor HEMEATOLOGIC/IMMUNOLOGIC: No reported: Easy Bleeding, Easy Bruising, Lymphadenopathy, Frequent infections ENDOCRINE: No reported: Unexplained Weight Gain, Unexplained Weight Loss, Heat Intolerance , Cold Intolerance NEUROLOGIC: No reported: Headache, Focal Weakness, Paresthesias, Vertigo, Lightheadedness, Unsteady Gait, Seizure, Mental Status Changes, Incontinence PSYCHIATRIC: No reported: Anxiety, Depression <Sammie Ceron - Last Filed: 12/23/16 16:32> *Physical Exam - Vital Signs Last Vital Signs Temp Pulse Resp BP Pulse Ox 98.2 F 63 18 134/50 97 12/23/16 13:29 12/23/16 13:29 12/23/16 13:29 12/23/16 13:29 12/23/16 13:29 - Physical Exam Comments: 12/23/16 14:54 GENERAL: The patient is awake, alert, and fully oriented, Nontoxic - in no acute distress. HEAD: Normocephalic, atraumatic. EYES: extraocular movements intact, sclera anicteric, conjunctiva clear. ENT: Normal voice, Moist mucous membranes. NECK: Normal range of motion, supple LUNGS: Breath sounds equal, clear to auscultation bilaterally. No wheezes, no rhonchi, no rales. HEART/CHEST: irregularly irregular, cather in the R chest that is c/d/i, L breast ~4x4cm open wound with packing without any surrounding erythema, warmth, tenderness. ABDOMEN: Soft, nontender, normoactive bowel sounds. No guarding, no rebound. . No CVA tenderness EXTREMITIES: Normal range of motion, s/p transmetatarsal on LLE, s/p AKA on RLE NEUROLOGICAL: No facial assymetry, Normal speech, moving all 4 extermities spontaneously and symmetrically PSYCH: Normal mood, normal affect. SKIN: Warm, Dry, normal turgor <Sammie Ceron - Last Filed: 12/23/16 16:32> - Vital Signs Last Vital Signs Temp Pulse Resp BP Pulse Ox 98.2 F 63 18 134/50 97 12/23/16 13:29 12/23/16 13:29 12/23/16 13:29 12/23/16 13:29 12/23/16 13:29 <Bulmaro Hidalgo - Last Filed: 12/23/16 16:39> Heart Score/ECG Review - ECG Impressions Comment:: 12/23/16 14:32 Twelve-lead EKG was performed and reviewed by me. Rate of 94 irregularly irregular The axis is normal. nonspecific st changes impression: atrial fibrillation new when compared with prior ekg 09/17/2016 <Bulmaro Hidalgo - Last Filed: 12/23/16 16:39> ED Treatment Course - LABORATORY CBC & Chemistry Diagram: 12/23/16 14:56 12/23/16 14:56 <Sammie Ceron - Last Filed: 12/23/16 16:32> - LABORATORY CBC & Chemistry Diagram: 12/23/16 14:56 12/23/16 14:56 - RADIOLOGY Radiology Studies Ordered: Category Date Time Status CHEST X-RAY PORTABLE* [RAD] Stat Radiology 12/23/16 14:13 Ordered <RockyBulmaro diaz - Last Filed: 12/23/16 16:39> Medical Decision Making - Medical Decision Making 12/23/16 16:10 A call was placed to Dr. Galarza at his office. Case was discussed. 12/23/16 16:29 A call was placed to Dr. Mckenna at his office. 12/23/16 16:32 Case was discussed with Dr. Mckenna. <Sammie Ceron - Last Filed: 12/23/16 16:32> - Medical Decision Making 12/23/16 14:36 71y F hx of DM, CABG, thyroid disease, ESRD (dialysis ,,Sa, last dialysis ) s/p R AKA, hx of open wound from recent breast abscess drainage, sent to the ED with new onset afib while being medically cleared at cardiologistis office. will obtain cxr, ekg, blood work pt placed on cardiac monitior rate is controlled anticipate admission after lbood work will start on heparin or other a/c after discussion with cardiology A portion of this note was documented by scribe services under my direction. I have reviewed the details of the note, within reason, and agree with the documentation with the following case summary and management plan written by me 12/23/16 15:[address] fernandez and sindhu galarza agreed with heparinziation pt on monitor labs reviewed will admit to tele for new onset afib stable for tele Case discussed in detail with admitting physician including history, physical exam and ancillary studies. Admitting physician has assumed care for the patient, will follow all pending diagnostics and will complete the evaluation and treatment. 12/23/16 15:[address] herron agree w/ management also - per dr. fernandez, may attempt to plan for breast surgery/repair while she is on heparin prior to coumadin bridige 12/23/16 16:35 next earliest time slot of OR by dr. Mckenna would be next morning 12/23. can possible be transitioned onto lovenox, then start coumadin. can reach out to him to clarify plan. <Bulmaro Hidalgo - Last Filed: 12/23/16 16:39> *DC/Admit/Observation/Transfer - Attestations Scribe Attestion: 12/23/16 14:55 Documentation prepared by ZACHARY Lipscomb, acting as registered medical assistant for Bulmaro Hidalgo MD. <Sammie Ceron - Last Filed: 12/23/16 16:32> - Discharge Dispostion Admit: Yes <Bulmaro Hidalgo - Last Filed: 12/23/16 16:39> Diagnosis at time of Disposition: ESRD on hemodialysis, Breast abscess Atrial fibrillation Qualifiers: Atrial fibrillation type: unspecified Qualified Code(s): I48.91 - Unspecified atrial fibrillation - Discharge Dispostion Condition at time of disposition: Stable - Referrals Referrals: Darwin Lopez MD [Primary Care Provider] -
[2016-12-23 15:16] LABS: BASOPHIL 1.1 % (0-2.0); EOSINOPHIL 0.9 % (0-4.5); MCH 28.9 pg (25.7-33.7); MCHC 32.4 g/dl (32.0-36.0); NEUTROPHILS 76.6 % (42.8-82.8); PLATELET COUNT 344 K/MM3 (134-434); RDW 16.7 % (11.6-15.6); WHITE BLOOD COUNT 10.6 K/mm3 (4.0-10.0)
--- NOTE | 2016-12-23 15:34 | EKG ---
Test Reason : Blood Pressure : / mmHG Vent. Rate : 094 BPM Atrial Rate : 084 BPM P-R Int : 000 ms QRS Dur : 090 ms QT Int : 386 ms P-R-T Axes : 000 080 -51 degrees QTc Int : 482 ms ATRIAL FIBRILLATION NONSPECIFIC T WAVE ABNORMALITY ABNORMAL ECG WHEN COMPARED WITH ECG OF 17-SEP-2016 11:53, ATRIAL FIBRILLATION HAS REPLACED SINUS RHYTHM VENT. RATE HAS INCREASED BY 40 BPM NONSPECIFIC T WAVE ABNORMALITY, WORSE IN INFERIOR LEADS NONSPECIFIC T WAVE ABNORMALITY NOW EVIDENT IN LATERAL LEADS QT HAS LENGTHENED Confirmed by SHIN BERNARDO MD ([id number]) on 12/23/2016 3:34:43 PM Referred By: Confirmed By:SHIN BERNARDO MD
[2016-12-23 15:37] LABS: INR 1.2 (0.82-1.09); PROTHROMBIN TIME (PATIENT) 13.3 SEC (9.98-11.88)
[2016-12-23 15:42] LABS: ALBUMIN 2.7 g/dl (3.4-5.0); BILIRUBIN,TOTAL 0.4 mg/dL (0.2-1.0); CALCIUM 9.2 mg/dL (8.5-10.1); CREATININE 4.9 mg/dL (0.55-1.02); TOT PROT 6.5 g/dl (6.4-8.2)
[2016-12-23 15:44] LABS: TROPONIN I < 0.02 ng/ml (0.00-0.05)
[2016-12-23] MEDS ORDERED: HEPARIN NA (PORCINE) 5,000 UNITS/ML 1ML VIAL IVPUSH ONE (15:49)
[2016-12-23] MEDS ORDERED: HEPARIN INFUSION - 500 ML IVPB ONE (15:55)
[2016-12-23] MEDS ORDERED: HEPARIN NA (PORCINE) 5,000 UNITS/ML 1ML VIAL ONE ×2 (15:55→22:23)
--- NOTE | 2016-12-23 15:59 | CON.CARD ---
Consult Consult Specialty:: Cardiology Referred by:: Dr. Galarza Reason for Consultation:: Cardiac evaluation - History of Present Illness Chief Complaint: New onset atrial fibrillation History of Present Illness: Patient is a 71 year old female (patient of Dr. Darwin Lopez) with underlying history of CAD s/p multivessel PCI/stent, angina pectoris, LV diastolic dysfunction with history of failure, hypercholesterolemia, ESRD on HD (MWF), PVD s/p right AKA 2012, left TMA 2013, IDDM, infected AVG, failed HeRo graft placement now receiving HD via permacath and breast abscess for which she had surgery at [facility] in [place]. She presented to the office to see Dr. Lopez today for preop cardiac clearance prior to debridement of the wound, but was found to have new onset atrial fibrillation. She was sent to ED for further treatment. She was seen by Dr. Moreno Mckenna (Dept of surgery at [facility]) who was planning on the debridement. She denies chest pain, shortness of breath or palpitation. She denies paroxysmal nocturnal dyspnea or orthopnea. Denies fever or chills. Denies headache or lightheadedness. - History Source History Provided By: Patient, Medical Record Limitations to Obtaining History: No Limitations - Past Medical History Cardio/Vascular: Yes: CAD, CHF, HTN, Hyperlipdemia, Other (coronary stents x 3) Pulmonary: Yes: COPD Renal/: Yes: Renal Failure, Hemodialysis. No: Hematuria Infectious Disease: Yes: MRSA Musculoskeletal: Yes: Other (R rotator cuff repair) Endocrine: Yes: Diabetes Mellitus, Hypothyroidism Additional Medical History: Steal syndrome , PVD- s//p surgery - Past Surgical History Past Surgical History: Yes: Amputation (Rt AKA, left TMA), Hysterectomy ( thyroid surgery), Stent - Alcohol/Substance Use Hx Alcohol Use: No - Smoking History Smoking history: Never smoked Have you smoked in the past 12 months: No Aproximately how many cigarettes per day: 0 - Social History ADL: Independent History of Recent Travel: No Home Medications - Allergies Allergies/Adverse Reactions: Allergies Allergy/AdvReac Type Severity Reaction Status Date / Time Sulfa (Sulfonamide Allergy Unknown Verified 12/23/16 13:32 Antibiotics) [Sulfa(Sulfonamide Antibiotics)] amoxicillin trihydrate AdvReac Severe Verified 12/23/16 13:32 [From Augmentin] potassium clavulanate AdvReac Severe Verified 12/23/16 13:32 [From Augmentin] tape AdvReac Severe Uncoded 12/23/16 13:32 - Home Medications Home Medications: Ambulatory Orders Insulin (Levemir) [Levemir Flexpen -] 18 units SQ HS 08/20/14 Aspirin [ASA -] 81 mg PO DAILY #90 tab.chew 08/29/14 Clopidogrel Bisulfate [Plavix -] 75 mg PO DAILY #90 tablet 08/29/14 Cyanocobalamin [Vitamin B12 -] 100 mcg PO DAILY #90 tablet 08/29/14 Insulin (Levemir) [Levemir Flexpen -] 20 units SQ AM #90 pen 08/29/14 Pantoprazole Sodium [Protonix -] 40 mg PO DAILY #30 tablet.ec 08/29/14 Calcium Acetate [Phoslo -] 667 mg PO TID 04/06/16 Levothyroxine [Synthroid -] 213 mcg PO DAILY 08/10/16 Metoprolol Succinate [Toprol XL -] 12.5 mg PO DAILY 08/10/16 Alprazolam [Xanax] 0.25 mg PO DAILY PRN #30 tablet MDD 1 08/14/16 Alprazolam [Xanax] 0.25 mg PO BID PRN #60 tablet MDD 2 09/27/16 Calamine 8% Topical Lotion - 1 applic TP QID PRN #1 bottle 09/27/16 Diphenhydramine HCl [Benadryl Capsule -] 25 mg PO Q6H PRN #30 capsule 09/27/16 Heparin - 5,000 unit SQ BID #60 vial 09/27/16 Insulin Sliding Scale [Novolog Vial Sliding Scale -] 1 vial SQ ACHS units 09/27 Ketorolac Tromethamine [Toradol -] 10 mg PO Q8H PRN #60 tablet 09/27/16 Sennosides [Senna -] 2 tab PO HS PRN #60 tablet 09/27/16 Silver Sulfadiazine 1% Top Cr [Silvadene -] 1 applic TP DAILY #1 jar 09/27/16 Simethicone [Mylicon -] 80 mg PO QID PRN #20 tab.chew 09/27/16 Cephalexin [Keflex] 500 mg PO BID #10 capsule 09/28/16 Review of Systems - Review of Systems Constitutional: denies: Chills, Fever Cardiovascular: denies: Chest Pain, Palpitations, Shortness of Breath Respiratory: denies: Cough, Hemoptysis, Orthopnea, PND, SOB, SOB on Exertion Gastrointestinal: denies: Abdominal Pain, Constipation, Diarrhea, Melena, Nausea , Rectal Bleeding, Vomiting Genitourinary: denies: Dysuria Musculoskeletal: denies: Joint Pain Neurological: denies: Dizziness, Headache, Seizure, Syncope Vital Signs: Vital Signs Temperature 98.2 F 12/23/16 13:29 Pulse Rate 63 12/23/16 13:29 Respiratory Rate 18 12/23/16 13:29 Blood Pressure 134/50 12/23/16 13:29 O2 Sat by Pulse Oximetry (%) 97 12/23/16 13:29 Neck: Yes: Supple Respiratory: Yes: CTA Bilaterally Gastrointestinal: Yes: Normal Bowel Sounds, Soft. No: Tenderness Cardiovascular: Yes: Pulse Irregular JVD: No Carotid Bruit: No PMI: Non-Displaced Heart Sounds: Yes: S1, S2 Murmur: Yes: Systolic Murmur, Grade 1 Extremities: Yes: Amputation (Right AKA, left TMA) Edema: No Integumentary: Yes: Other (Dressing applied to left breast with underlying ulcerated wound) - Other Data Labs, Other Data: CBC, BMP 12/23/16 14:56 Troponin, BNP 12/23/16 14:56 Troponin I < 0.02 Laboratory Results - last 24 hr 12/23/16 12/23/16 12/23/16 14:56 14:56 14:56 WBC 10.6 H RBC 4.43 D Hgb 12.8 D Hct 39.4 D MCV 89.0 MCHC 32.4 RDW 16.7 H Plt Count 344 D MPV 8.0 Neutrophils % 76.6 Lymphocytes % 14.0 Monocytes % 7.4 Eosinophils % 0.9 Basophils % 1.1 INR 1.20 H Sodium Potassium Chloride Carbon Dioxide Anion Gap BUN Creatinine Creat Clearance w eGFR Random Glucose Calcium Total Bilirubin AST ALT Alkaline Phosphatase Creatine Kinase 38 Troponin I < 0.02 Total Protein Albumin 12/23/16 14:56 WBC RBC Hgb Hct MCV MCHC RDW Plt Count MPV Neutrophils % Lymphocytes % Monocytes % Eosinophils % Basophils % INR Sodium 136 Potassium 3.8 Chloride 99 Carbon Dioxide 26 D Anion Gap 11 BUN 33 H D Creatinine 4.9 H Creat Clearance w eGFR 8.68 Random Glucose 182 H D Calcium 9.2 Total Bilirubin 0.4 AST 6 L ALT 10 L D Alkaline Phosphatase 97 Creatine Kinase Troponin I Total Protein 6.5 Albumin 2.7 L D Atrial fibrillation with nonspecific ST-T abnormality Imaging - Results Chest X-ray: Pending EKG: Report Reviewed Problem List - Problems (1) Anemia Code(s): D64.9 - ANEMIA, UNSPECIFIED Qualifiers: Other causes of anemia: chronic disease, kidney (2) Breast mass, left Code(s): N63 - UNSPECIFIED LUMP IN BREAST (3) Diabetes Code(s): E11.9 - TYPE 2 DIABETES MELLITUS WITHOUT COMPLICATIONS Qualifiers: Diabetes mellitus type: type 1 Diabetes mellitus complication status: with circulatory complication Diabetes mellitus complication detail: with other circulatory complications Qualified Code(s): E10.59 - Type 1 diabetes mellitus with other circulatory complications (4) Dialysis AV fistula infection Code(s): T82.7XXA - INFECT/INFLM REACT D/T OTH CARDI/VASC DEV/IMPLNT/GRFT, INIT Qualifiers: Encounter type: initial encounter Qualified Code(s): T82.7XXA - Infection and inflammatory reaction due to other cardiac and vascular devices, implants and grafts, initial encounter (5) ESRD on hemodialysis Code(s): N18.6 - END STAGE RENAL DISEASE Z99.2 - DEPENDENCE ON RENAL DIALYSIS (6) Foot amputation status Code(s): Z89.439 - ACQUIRED ABSENCE OF UNSPECIFIED FOOT Qualifiers: Laterality: right Qualified Code(s): Z89.431 - Acquired absence of right foot (7) Hypothyroidism Code(s): E03.9 - HYPOTHYROIDISM, UNSPECIFIED Qualifiers: Hypothyroidism type: unspecified Qualified Code(s): E03.9 - Hypothyroidism, unspecified (8) Pre-operative cardiovascular examination Code(s): Z01.810 - ENCOUNTER FOR PREPROCEDURAL CARDIOVASCULAR EXAMINATION (9) Status post transmetatarsal amputation of left foot Code(s): Z89.432 - ACQUIRED ABSENCE OF LEFT FOOT (10) HTN (hypertension) Code(s): I10 - ESSENTIAL (PRIMARY) HYPERTENSION Qualifiers: Hypertension type: essential hypertension Qualified Code(s): I10 - Essential (primary) hypertension (11) Hypercholesterolemia Code(s): E78.00 - PURE HYPERCHOLESTEROLEMIA, UNSPECIFIED (12) Atrial fibrillation Code(s): I48.91 - UNSPECIFIED ATRIAL FIBRILLATION Qualifiers: Atrial fibrillation type: paroxysmal Qualified Code(s): I48.0 - Paroxysmal atrial fibrillation (13) CAD (coronary artery disease) Code(s): I25.10 - ATHSCL HEART DISEASE OF [place] CORONARY ARTERY W/O ANG PCTRS Qualifiers: Coronary Disease-Associated Artery/Lesion type: [place] artery [place] vs. transplanted heart: [place] heart Associated angina: without angina Qualified Code(s): I25.10 - Atherosclerotic heart disease of [place] coronary artery without angina pectoris (14) History of percutaneous coronary intervention Code(s): Z98.890 - OTHER SPECIFIED POSTPROCEDURAL STATES Assessment/Plan 1. New onset atrial fibrillation rate controlled 2. CAD s/p multivessel PCI, angina pectoris 3. PVD s/p right AKA, left TMA 4. LV diastolic dysfunction 5. ESRD on HD - via permacath 6. Infected AVG 7. Insulin requiring diabetes mellitus 8. HTN/HCVD 9. Hypercholesterolemia 10. Hypothyroidism PLAN: 1. Start Heparin drip 2. Eventually will need to initiate Coumadin with INR 2.0 - 3.0, but will wait until surgical input from Dr. Mckenna regarding timing of surgery (breast wound debridement) 3. Stop Plavix which needs to be stopped 7 days prior to surgery. ASA will need to be stopped also 4. Continue Metoprolol 5. Continue remainder of medication 6. HD as per protocol 7. No absolute contraindication in regards to debridement in view of absence of ischemic symptoms, decompensated congestive heart failure or malignant arrhythmia. Further plans are to follow Ernie Polanco MD
[2016-12-23] MEDS ORDERED: HEPARIN INFUSION - 500 ML IVPB SCH (16:00)
[2016-12-23] MEDS ORDERED: traMADol HCL 50 MG TABLET PO ONE (16:16)
[2016-12-23] MEDS ORDERED: traMADol HCL 50 MG TABLET ONE (16:17)
[2016-12-23 20:01] LABS: THYROID STIMULATING HORMONE 0.76 uIU/ml (0.358-3.74)
[2016-12-23] MEDS ORDERED: CALAMINE 8% TOPICAL LOTION 177 ML BOTTLE TP PRN (21:44)
[2016-12-23] MEDS ORDERED: SIMETHICONE 80 MG TAB.CHEW (FP) PO PRN (21:44)
[2016-12-23] MEDS ORDERED: CALCIUM ACETATE 667 MG CAPSULE (FP) PO SCH (22:00)
[2016-12-23] MEDS: traMADol HCL 50 MG TABLET PO PRN (22:16)
[2016-12-23] MEDS: ALPRAZolam 0.25 MG TABLET PO PRN (22:17)
[2016-12-24] MEDS: INSULIN DETEMIR 100 UNITS/ML MDV SQ SCH ×2 (06:00→16:47)
[2016-12-24] MEDS: LEVOTHYROXINE NA 100 MCG TABLET (FP) PO SCH (06:04)
[2016-12-24 08:07] LABS: BASOPHIL 1.2 % (0-2.0); EOSINOPHIL 2.8 % (0-4.5); MCH 29.1 pg (25.7-33.7); MCHC 32.3 g/dl (32.0-36.0); MEAN PLT VOLUME 8.1 fl (7.5-11.1); PLATELET COUNT 305 K/MM3 (134-434); RDW 16.7 % (11.6-15.6); WHITE BLOOD COUNT 7.8 K/mm3 (4.0-10.0)
[2016-12-24 08:24] LABS: INR 1.2 (0.82-1.09); PROTHROMBIN TIME (PATIENT) 13.3 SEC (9.98-11.88)
[2016-12-24 08:30] LABS: ALBUMIN 2.3 g/dl (3.4-5.0); CALCIUM 8.3 mg/dL (8.5-10.1); CREATININE 5.8 mg/dL (0.55-1.02)
[2016-12-24 08:32] LABS: BILIRUBIN,TOTAL 0.3 mg/dL (0.2-1.0); TOT PROT 5.6 g/dl (6.4-8.2)
[2016-12-24] MEDS: CALCIUM ACETATE 667 MG CAPSULE (FP) PO SCH ×3 (08:37→16:46)
--- NOTE | 2016-12-24 10:01 | PN ---
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 Was seen in the office for a pre-op evaluation on 12/23/2016 and was found to be in atrial fibrillation of indeterminate duration. Patient was hospitalized for anticoagulation and evaluation and surgical intervention for left breast abscess. Past history RSA and known to have hypothyroidism. History of peripheral vascular disease and steel syndrome. No history of palpitations, chest pain or discomfort, shortness of breath. Currently undergoing dialysis. Active Medications Generic Name Dose Route Start Last Admin Trade Name Freq PRN Reason Stop Dose Admin Alprazolam 0.25 mg 12/23/16 21:19 12/23/16 22:17 Xanax - PO 0.25 mg Q12H PRN Administration Calamine 1 applic 12/23/16 21:44 Calamine 8% Topical Lotion - TP QID PRN FOR ITCHING Calcium Acetate 667 mg 12/24/16 05:20 12/24/16 08:37 Phoslo - PO 667 mg TIDCM YOAN Administration Diphenhydramine HCl 25 mg 12/23/16 21:44 Benadryl - PO Q6H PRN FOR ITCHING Heparin Sodium/Dextrose 500 mls @ 20 mls/hr 12/23/16 16:00 12/23/16 22:29 Heparin Infusion - IVPB 1,100 units/hr TITR YOAN Titration Protocol 1,000 UNITS/HR Insulin Detemir 20 units 12/24/16 07:00 12/24/16 06:00 Levemir Vial SQ Not Given BIDI YOAN Levothyroxine Sodium 200 mcg 12/24/16 07:00 12/24/16 06:04 Synthroid - PO 200 mcg AM YOAN Administration Metoprolol Succinate 12.5 mg 12/24/16 10:00 Toprol Xl - PO DAILY YOAN Pantoprazole Sodium 40 mg 12/24/16 10:00 Protonix - PO DAILY YOAN Senna 2 tab 12/23/16 21:44 Senna - PO HS PRN CONSTIPATION Simethicone 80 mg 12/23/16 21:44 Mylicon - PO QID PRN GAS Tramadol HCl 25 mg 12/23/16 21:20 12/23/16 22:16 Ultram - PO 25 mg Q6H PRN Administration PAIN O: 71 year old female was in no acute distress, no pallor, cyanosis, clubbing, or jaundice. Last Vital Signs Temp Pulse Resp BP Pulse Ox 98.0 F 61 Irregularly irregular 18 190/39 98 12/24/16 09:40 12/24/16 09:45 12/24/16 09:45 12/24/16 09:45 12/24/16 06:00 Neck: Supple, no JVD, negative HJR, carotids were equal and upstrokes were normal, no thyromegaly appreciated. Heart: PMI was in the 5th intercostal space, no heaves or thrills, S1 is variable and S2 was normal. No murmurs or gallops were appreciated. Lungs: Clear on auscultation bilaterally. Chest: Right upper chest perma-cath. Abdomen: Soft, nontender, no hepatosplenomegaly appreciated, and no palpable masses were felt. Extremities: Right AKA and left TMA. CBC, BMP 12/24/16 06:07 12/24/16 06:07 Laboratory Results - last 24 hr 12/23/16 12/23/16 12/23/16 14:56 14:56 14:56 WBC 10.6 H RBC 4.43 D Hgb 12.8 D Hct 39.4 D MCV 89.0 MCHC 32.4 RDW 16.7 H Plt Count 344 D MPV 8.0 Neutrophils % 76.6 Lymphocytes % 14.0 Monocytes % 7.4 Eosinophils % 0.9 Basophils % 1.1 INR 1.20 H PTT (Actin FS) Sodium Potassium Chloride Carbon Dioxide Anion Gap BUN Creatinine Creat Clearance w eGFR POC Glucometer Random Glucose Calcium Phosphorus Total Bilirubin AST ALT Alkaline Phosphatase Creatine Kinase 38 Troponin I < 0.02 Total Protein Albumin TSH Blood Type Antibody Screen Antibody Identification Antigen Identification 12/23/16 12/23/16 12/23/16 14:56 16:22 16:22 WBC RBC Hgb Hct MCV MCHC RDW Plt Count MPV Neutrophils % Lymphocytes % Monocytes % Eosinophils % Basophils % INR PTT (Actin FS) 32.4 Sodium 136 Potassium 3.8 Chloride 99 Carbon Dioxide 26 D Anion Gap 11 BUN 33 H D Creatinine 4.9 H Creat Clearance w eGFR 8.68 POC Glucometer Random Glucose 182 H D Calcium 9.2 Phosphorus Total Bilirubin 0.4 AST 6 L ALT 10 L D Alkaline Phosphatase 97 Creatine Kinase Troponin I Total Protein 6.5 Albumin 2.7 L D TSH 0.76 D Blood Type A POSITIVE Antibody Screen Positive H Antibody Identification Anti-e Antigen Identification Y 12/23/16 12/23/16 12/24/16 21:00 21:30 05:35 WBC RBC Hgb Hct MCV MCHC RDW Plt Count MPV Neutrophils % Lymphocytes % Monocytes % Eosinophils % Basophils % INR PTT (Actin FS) 42.2 H D Sodium Potassium Chloride Carbon Dioxide Anion Gap BUN Creatinine Creat Clearance w eGFR POC Glucometer 89 121 Random Glucose Calcium Phosphorus Total Bilirubin AST ALT Alkaline Phosphatase Creatine Kinase Troponin I Total Protein Albumin TSH Blood Type Antibody Screen Antibody Identification Antigen Identification 12/24/16 12/24/16 12/24/16 06:07 06:07 06:07 WBC 7.8 RBC 4.01 Hgb 11.6 Hct 36.1 MCV 90.0 MCHC 32.3 RDW 16.7 H Plt Count 305 MPV 8.1 Neutrophils % 65.0 Lymphocytes % 21.8 D Monocytes % 9.2 Eosinophils % 2.8 D Basophils % 1.2 INR 1.20 H PTT (Actin FS) Sodium 137 Potassium 4.0 Chloride 100 Carbon Dioxide 25 Anion Gap 12 BUN 38 H Creatinine 5.8 H Creat Clearance w eGFR 7.15 POC Glucometer Random Glucose 124 H D Calcium 8.3 L Phosphorus Total Bilirubin 0.3 D AST 4 L D ALT 9 L Alkaline Phosphatase 87 Creatine Kinase Troponin I Total Protein 5.6 L Albumin 2.3 L TSH Blood Type Antibody Screen Antibody Identification Antigen Identification 12/24/16 12/24/16 06:07 06:07 WBC RBC Hgb Hct MCV MCHC RDW Plt Count MPV Neutrophils % Lymphocytes % Monocytes % Eosinophils % Basophils % INR PTT (Actin FS) 39.4 H Sodium Potassium Chloride Carbon Dioxide Anion Gap BUN Creatinine Creat Clearance w eGFR POC Glucometer Random Glucose Calcium Phosphorus 4.9 D Total Bilirubin AST ALT Alkaline Phosphatase Creatine Kinase Troponin I Total Protein Albumin TSH Blood Type Antibody Screen Antibody Identification Antigen Identification Impression: (1) Atrial fibrillation with controlled ventricular response of indeterminate duration Code(s): I48.91 - UNSPECIFIED ATRIAL FIBRILLATION Qualifiers: Atrial fibrillation type: paroxysmal Qualified Code(s): I48.0 - Paroxysmal atrial fibrillation (2) Diabetes Mellitus with multi system involvement Code(s): E11.9 - TYPE 2 DIABETES MELLITUS WITH MULTI SYSTEM INVOLVEMENT Qualifiers: Diabetes mellitus type: type 1 Diabetes mellitus complication status: with circulatory complication Diabetes mellitus complication detail: with other circulatory complications Qualified Code(s): E10.59 - Type 1 diabetes mellitus with other circulatory complications (3) Anemia Code(s): D64.9 - ANEMIA, UNSPECIFIED Qualifiers: Other causes of anemia: chronic disease, kidney (4) Breast mass, left Code(s): N63 - UNSPECIFIED LUMP IN BREAST (5) CAD (coronary artery disease) Code(s): I25.10 - ATHSCL HEART DISEASE OF [place] CORONARY ARTERY W/O ANG PCTRS Qualifiers: Coronary Disease-Associated Artery/Lesion type: [place] artery [place] vs. transplanted heart: [place] heart Associated angina: without angina Qualified Code(s): I25.10 - Atherosclerotic heart disease of [place] coronary artery without angina pectoris (6) History of percutaneous coronary intervention / Stenting Code(s): Z98.890 - OTHER SPECIFIED POSTPROCEDURAL STATES (7) ESRD on hemodialysis Code(s): N18.6 - END STAGE RENAL DISEASE Z99.2 - DEPENDENCE ON RENAL DIALYSIS (8) Right AKA and Left partial foot amputation Code(s): Z89.439 - ACQUIRED ABSENCE OF UNSPECIFIED FOOT Qualifiers: Laterality: right Qualified Code(s): Z89.431 - Acquired absence of right foot Code(s): Z89.432 - ACQUIRED ABSENCE OF LEFT FOOT (9) Hypothyroidism Code(s): E03.9 - HYPOTHYROIDISM, UNSPECIFIED Qualifiers: Hypothyroidism type: unspecified Qualified Code(s): E03.9 - Hypothyroidism, unspecified (10) HTN (hypertension) Code(s): I10 - ESSENTIAL (PRIMARY) HYPERTENSION Qualifiers: Hypertension type: essential hypertension Qualified Code(s): I10 - Essential (primary) hypertension (11) Hypercholesterolemia Code(s): E78.00 - PURE HYPERCHOLESTEROLEMIA, UNSPECIFIED Recommendations: 1. Continue current cardiac medications. 2. In view of advanced vascular disease resume aspirin 81 mg PO daily provided there are no contra indications. 3. Close follow up of APPT and CBC. 4. Breast surgical evaluation. Attestation: Documentation prepared by Jonathan Hudson, acting as phlebotomist medical lab assistant for Darwin Lopez MD.
--- NOTE | 2016-12-24 10:38 | HP ---
Admitting History and Physical - Past Medical History Cardiovascular: Yes: CAD, CHF, HTN, Hyperlipdemia, Other (coronary stents x 3) Pulmonary: Yes: COPD Renal/: Yes: Renal Failure, Hemodialysis. No: Hematuria ...: No Heme/Onc: Yes: Anemia Infectious Disease: Yes: MRSA Musculoskeletal: Yes: Other (R rotator cuff repair) Endocrine: Yes: Diabetes Mellitus, Hypothyroidism - Past Surgical History Past Surgical History: Yes: Amputation (Rt AKA, left TMA), Hysterectomy ( thyroid surgery), Stent - Advance Directives Advance Directives: Yes: Health Care Proxy - Smoking History Smoking history: Never smoked Have you smoked in the past 12 months: No Aproximately how many cigarettes per day: 0 - Alcohol/Substance Use Hx Alcohol Use: No - Social History ADL: Independent History of Recent Travel: No <Jessenia Galarza - Last Filed: 12/24/16 10:38> - Primary Care Physician PCP: Jessenia Galarza - Admission History of Present Illness: The patient is a 71-year-old woman with a significant past medical history of 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 Richard's office for pre-op cardiac clearance for left breast abscess debridement and she was found to have a new onset of atrial fibrillation. Patient admitted to Telemetry. Chart reviewed. Started on Heparin. At present, denies chest pain or shortness of breath. No abdominal pain. Currently being dialyzed. History Source: Patient, Medical Record Limitations to Obtaining History: No Limitations <Liudmila Garcia - Last Filed: 12/24/16 11:43> Home Medications <Jessenia Galarza - Last Filed: 12/24/16 10:38> <Liudmila Garcia - Last Filed: 12/24/16 11:43> - Allergies Allergies/Adverse Reactions: Allergies Allergy/AdvReac Type Severity Reaction Status Date / Time Sulfa (Sulfonamide Allergy Unknown Verified 12/23/16 13:32 Antibiotics) [Sulfa(Sulfonamide Antibiotics)] amoxicillin trihydrate AdvReac Severe Verified 12/23/16 13:32 [From Augmentin] potassium clavulanate AdvReac Severe Verified 12/23/16 13:32 [From Augmentin] tape AdvReac Severe Uncoded 12/23/16 13:32 - Home Medications Home Medications: Ambulatory Orders Aspirin [ASA -] 81 mg PO DAILY #90 tab.chew 08/29/14 Clopidogrel Bisulfate [Plavix -] 75 mg PO DAILY #90 tablet 08/29/14 Cyanocobalamin [Vitamin B12 -] 100 mcg PO DAILY #90 tablet 08/29/14 Pantoprazole Sodium [Protonix -] 40 mg PO DAILY #30 tablet.ec 08/29/14 Calcium Acetate [Phoslo -] 667 mg PO TID 04/06/16 Levothyroxine [Synthroid -] 200 mcg PO DAILY 08/10/16 Metoprolol Succinate [Toprol XL -] 12.5 mg PO DAILY 08/10/16 Alprazolam [Xanax] 0.25 mg PO DAILY PRN #30 tablet MDD 1 08/14/16 Alprazolam [Xanax] 0.25 mg PO BID PRN #60 tablet MDD 2 09/27/16 Calamine 8% Topical Lotion - 1 applic TP QID PRN #1 bottle 09/27/16 Diphenhydramine HCl [Benadryl Capsule -] 25 mg PO Q6H PRN #30 capsule 09/27/16 Sennosides [Senna -] 2 tab PO HS PRN #60 tablet 09/27/16 Simethicone [Mylicon -] 80 mg PO QID PRN #20 tab.chew 09/27/16 Insulin (Levemir) [Levemir Flexpen -] 20 units SQ BID 12/23/16 Tramadol HCl 25 mg PO Q6H PRN 12/23/16 Review of Systems Findings/Remarks: See HPI. <Liudmila Garcia - Last Filed: 12/24/16 11:43> Physical Examination Vital Signs: Vital Signs Temperature 98.0 F 12/24/16 09:40 Pulse Rate 74 12/24/16 10:15 Respiratory Rate 18 12/24/16 10:15 Blood Pressure 158/87 12/24/16 10:15 O2 Sat by Pulse Oximetry (%) 98 03/31/17 06:00 Labs: CBC, BMP 12/24/16 06:07 12/24/16 06:07 <Jessenia Galarza - Last Filed: 12/24/16 10:38> Vital Signs: Vital Signs Temperature 98.0 F 12/24/16 09:40 Pulse Rate 74 12/24/16 10:15 Respiratory Rate 18 12/24/16 10:15 Blood Pressure 158/87 12/24/16 10:15 O2 Sat by Pulse Oximetry (%) 98 12/24/16 06:00 Constitutional: Yes: No Distress, Calm Eyes: Yes: Conjunctiva Clear Neck: Yes: Supple Cardiovascular: Yes: Pulse Irregular Respiratory: Yes: Diminished (at bases.) Gastrointestinal: Yes: Soft Breast(s): Yes: Other (Dressing present at the left side) Extremities: Yes: Amputation, Other (Righ AKA. Left TMR) Neurological: Yes: Alert Labs: CBC, BMP 12/24/16 06:07 12/24/16 06:07 <Liudmila Garcia - Last Filed: 12/24/16 11:43> Imaging - Results Chest X-ray: Report Reviewed EKG: Report Reviewed <Liudmila Garcia - Last Filed: 12/24/16 11:43> Problem List - Problems (1) Atrial fibrillation Code(s): I48.91 - UNSPECIFIED ATRIAL FIBRILLATION Qualifiers: Atrial fibrillation type: unspecified Qualified Code(s): I48.91 - Unspecified atrial fibrillation (2) Breast abscess Code(s): N61.1 - ABSCESS OF THE BREAST AND NIPPLE (3) CAD (coronary artery disease) Code(s): I25.10 - ATHSCL HEART DISEASE OF [place] CORONARY ARTERY W/O ANG PCTRS Qualifiers: Coronary Disease-Associated Artery/Lesion type: [place] artery [place] vs. transplanted heart: [place] heart Associated angina: without angina Qualified Code(s): I25.10 - Atherosclerotic heart disease of [place] coronary artery without angina pectoris (4) ESRD on hemodialysis Code(s): N18.6 - END STAGE RENAL DISEASE Z99.2 - DEPENDENCE ON RENAL DIALYSIS (5) HTN (hypertension) Code(s): I10 - ESSENTIAL (PRIMARY) HYPERTENSION Qualifiers: Hypertension type: essential hypertension Qualified Code(s): I10 - Essential (primary) hypertension (6) Hypercholesterolemia Code(s): E78.00 - PURE HYPERCHOLESTEROLEMIA, UNSPECIFIED (7) Anemia Code(s): D64.9 - ANEMIA, UNSPECIFIED Qualifiers: Other causes of anemia: chronic disease, kidney (8) Diabetes Code(s): E11.9 - TYPE 2 DIABETES MELLITUS WITHOUT COMPLICATIONS Qualifiers: Diabetes mellitus type: type 1 Diabetes mellitus complication status: with circulatory complication Diabetes mellitus complication detail: with other circulatory complications Qualified Code(s): E10.59 - Type 1 diabetes mellitus with other circulatory complications (9) Foot amputation status Code(s): Z89.439 - ACQUIRED ABSENCE OF UNSPECIFIED FOOT Qualifiers: Laterality: right Qualified Code(s): Z89.431 - Acquired absence of right foot <Liudmila Garcia - Last Filed: 12/24/16 11:43> Assessment/Plan - Continue Heparin. - Medications reviewed. - Monitor blood sugars. - Dialysis per Renal. - Wound care-- left breast/ surgery consulted. - Discussed with Dr. Richard. - Will follow. Documentation prepared by Liudmila Garcia, acting as a medical billing service for Jessenia Galarza MD. <Liudmila Garcia - Last Filed: 12/24/16 11:43>
[2016-12-24] MEDS: PANTOPRAZOLE 40 MG TABLET (FP) PO SCH ×2 (11:22→16:46)
[2016-12-24] MEDS: METOPROLOL SUCCINATE 25 MG TAB.SR.24H (FP) PO SCH ×2 (11:23→16:47)
--- NOTE | 2016-12-24 11:46 | CONSULT ---
Consult Consult Specialty:: Surgery Referred by:: Geovanni Ruelas Reason for Consultation:: Open wound in left breast. - History of Present Illness Chief Complaint: S/P drainage of abscess left breast at [facility]. History of Present Illness: The patient is a 71-year-old woman, with a significant past medical history of insulin dependent diabetes mellitus, with multi system involvement s/p right AKA , s/p left partial amputation of the left foot, end stage renal disease (on hemodialysis MWF; infected AVG, failed HeRo graft placement now receiving HD via permacath), CAD s/p multivessel PCI/stent, hypercholesterolemia, and hypothyroidism who is admitted yesterday for an open wound in her left breast .She is found to have a new onset of atrial fibrillation. I am consulted for management of the wound on her left breast. She was treated at [facility] and drained by Dr. Wiley , who as per the patient consulted a plastic surgeon. - History Source History Provided By: Patient Limitations to Obtaining History: No Limitations - Past Medical History Cardio/Vascular: Yes: AFIB, CAD, CHF, HTN, Hyperlipdemia, Other (coronary stents x 3) Pulmonary: Yes: COPD Renal/: Yes: Renal Failure, Hemodialysis. No: Hematuria ...: No Infectious Disease: Yes: MRSA Musculoskeletal: Yes: Other (R rotator cuff repair) Endocrine: Yes: Diabetes Mellitus, Hypothyroidism Additional Medical History: Steal syndrome , PVD- s//p surgery - Past Surgical History Past Surgical History: Yes: Amputation (Rt AKA, left TMA), Hysterectomy ( thyroid surgery), Stent - Alcohol/Substance Use Hx Alcohol Use: No - Smoking History Smoking history: Never smoked Have you smoked in the past 12 months: No Aproximately how many cigarettes per day: 0 - Social History ADL: Independent History of Recent Travel: No Home Medications - Allergies Allergies/Adverse Reactions: Allergies Allergy/AdvReac Type Severity Reaction Status Date / Time Sulfa (Sulfonamide Allergy Unknown Verified 12/23/16 13:32 Antibiotics) [Sulfa(Sulfonamide Antibiotics)] amoxicillin trihydrate AdvReac Severe Verified 12/23/16 13:32 [From Augmentin] potassium clavulanate AdvReac Severe Verified 12/23/16 13:32 [From Augmentin] tape AdvReac Severe Uncoded 12/23/16 13:32 - Home Medications Home Medications: Ambulatory Orders Aspirin [ASA -] 81 mg PO DAILY #90 tab.chew 08/29/14 Clopidogrel Bisulfate [Plavix -] 75 mg PO DAILY #90 tablet 08/29/14 Cyanocobalamin [Vitamin B12 -] 100 mcg PO DAILY #90 tablet 08/29/14 Pantoprazole Sodium [Protonix -] 40 mg PO DAILY #30 tablet.ec 08/29/14 Calcium Acetate [Phoslo -] 667 mg PO TID 04/06/16 Levothyroxine [Synthroid -] 200 mcg PO DAILY 08/10/16 Metoprolol Succinate [Toprol XL -] 12.5 mg PO DAILY 08/10/16 Alprazolam [Xanax] 0.25 mg PO DAILY PRN #30 tablet MDD 1 08/14/16 Alprazolam [Xanax] 0.25 mg PO BID PRN #60 tablet MDD 2 09/27/16 Calamine 8% Topical Lotion - 1 applic TP QID PRN #1 bottle 09/27/16 Diphenhydramine HCl [Benadryl Capsule -] 25 mg PO Q6H PRN #30 capsule 09/27/16 Sennosides [Senna -] 2 tab PO HS PRN #60 tablet 09/27/16 Simethicone [Mylicon -] 80 mg PO QID PRN #20 tab.chew 09/27/16 Insulin (Levemir) [Levemir Flexpen -] 20 units SQ BID 12/23/16 Tramadol HCl 25 mg PO Q6H PRN 12/23/16 Physical Exam Vital Signs: Vital Signs Temperature 98 F 12/24/16 11:38 Pulse Rate 88 12/24/16 11:38 Respiratory Rate 18 12/24/16 11:38 Blood Pressure 176/90 12/24/16 11:38 O2 Sat by Pulse Oximetry (%) 98 12/24/16 06:00 Breast(s): Yes: Other (The right breast is normal. In her left breast , there is a large open wound , about 4 cm. in diameter , in the upper part of her breast. The wound is nessentially clean , with granulating wound . There is no mpurulent drainage. It is covered with eschar , and some necrotic tissue which can be debrided by the bedside. There is no axillary lymphadenopathy.) Labs: CBC, BMP 12/24/16 06:07 12/24/16 06:07 Assessment/Plan Open wound with slough on left breast. Patient does not want me to debride, and refused debridement. She wants the plastic surgeon to debride and is expecting him here. Diabetes mellitus, hypertension, Atrial fibrillation. Peripheral vascular disease, with vascular insufficiency. Wound care, as per patient's wishes.
[2016-12-24] MEDS ORDERED: HEPARIN NA (PORCINE) 5,000 UNITS/ML 1ML VIAL IVPUSH PRN (12:16)
[2016-12-24] MEDS: HEPARIN - 25,000 UNIT in SODIUM CHLORIDE 495 ML IV SCH ×2 (12:45→16:52)
[2016-12-24] MEDS: HEPARIN NA (PORCINE) 5,000 UNITS/ML 1ML VIAL IVPUSH PRN ×2 (12:45→21:14)
[2016-12-24] MEDS: traMADol HCL 50 MG TABLET PO PRN (12:58)
--- NOTE | 2016-12-24 14:41 | CONSULT ---
Consult - text type - Consultation Consultation Note: Renal Consult for ESRD on HD This is a 71 year old woman with PMhx of ESRD on HD (MWF), CAD s/p PCI and stenting, DM Type 2 on insulin, PVD s/p Multiple amputations, Multiple failed dialysis accesses s/p recent HERO graft infection presents after being found to have new onset Afib by Cardiology. Last dialysis was Tuesday w/o complication. Denies any CP, palpitations or sob. Has a large wound on the right breast with packing. Is planned to have debridement and reconstruction with a plastic surgeon. No fever or chills. Pt completed a course of Vanco with HD last week. PMhx: as above Allergies: As listed in EMR Family Hx: NC Social Hx: No T/A/D ROS: as per HPI, all other pertinent ros negative Home Meds: Home Medications Medication Instructions Recorded Aspirin [ASA -] 81 mg PO DAILY #90 tab.chew 08/29/14 Clopidogrel Bisulfate [Plavix -] 75 mg PO DAILY #90 tablet 08/29/14 Cyanocobalamin [Vitamin B12 -] 100 mcg PO DAILY #90 tablet 08/29/14 Pantoprazole Sodium [Protonix -] 40 mg PO DAILY #30 tablet.ec 08/29/14 Calcium Acetate [Phoslo -] 667 mg PO TID 04/06/16 Levothyroxine [Synthroid -] 200 mcg PO DAILY 08/10/16 Metoprolol Succinate [Toprol XL -] 12.5 mg PO DAILY 08/10/16 Alprazolam [Xanax] 0.25 mg PO DAILY PRN #30 tablet 08/14/16 MDD 1 Alprazolam [Xanax] 0.25 mg PO BID PRN #60 tablet MDD 2 09/27/16 Calamine 8% Topical Lotion - 1 applic TP QID PRN #1 bottle 09/27/16 Diphenhydramine HCl [Benadryl 25 mg PO Q6H PRN #30 capsule 09/27/16 Capsule -] Sennosides [Senna -] 2 tab PO HS PRN #60 tablet 09/27/16 Simethicone [Mylicon -] 80 mg PO QID PRN #20 tab.chew 09/27/16 Insulin (Levemir) [Levemir Flexpen 20 units SQ BID 12/23/16 -] Tramadol HCl 25 mg PO Q6H PRN 12/23/16 Vital Signs Temperature 98 F 12/24/16 11:38 Pulse Rate 66 12/24/16 13:10 Respiratory Rate 18 12/24/16 13:10 Blood Pressure 133/78 12/24/16 13:10 O2 Sat by Pulse Oximetry (%) 98 12/24/16 09:00 Gen: NAD, awake and alert HEENT: NC/AT, MMM, No JVD CVS: RRR, No M/R Lungs: CTA, no rales or wheeze Abd:soft NT/ND Ext: B/L LE amputations Breast: Left breast wound with packing, no erythema or discharge Access: Right IJ tunneled catheter CBC, BMP 12/24/16 06:07 12/24/16 06:07 Current Medications Alprazolam (Xanax -) 0.25 mg PO Q12H PRN Last Admin: 12/23/16 22:17 Dose: 0.25 mg Calamine (Calamine 8% Topical Lotion -) 1 applic TP QID PRN PRN Reason: FOR ITCHING Calcium Acetate (Phoslo -) 667 mg PO TIDCM [facility] Last Admin: 12/24/16 12:21 Dose: 667 mg Diphenhydramine HCl (Benadryl -) 25 mg PO Q6H PRN PRN Reason: FOR ITCHING Heparin Sodium (Porcine) (Heparin -) 1,000 unit IVPUSH PRN PRN PRN Reason: Heparin Heparin Sodium (Porcine) (Heparin -) 5,000 unit IVPUSH PRN PRN PRN Reason: Heparin Last Admin: 12/24/16 12:45 Dose: 5,000 unit Heparin Sodium (Porcine) 25, (000 unit/ Sodium Chloride) 500 mls @ 20 mls/hr IV TITR YOAN; 1,000 UNIT/HR PRN Reason: Protocol Last Admin: 12/24/16 12:45 Dose: 25 mls/hr Insulin Detemir (Levemir Vial) 20 units SQ BIDI [facility] Last Admin: 12/24/16 06:00 Dose: Not Given Levothyroxine Sodium (Synthroid -) 200 mcg PO AM [facility] Last Admin: 12/24/16 06:04 Dose: 200 mcg Metoprolol Succinate (Toprol Xl -) 12.5 mg PO DAILY Y[facility] Last Admin: 12/24/16 11:23 Dose: Not Given Pantoprazole Sodium (Protonix -) 40 mg PO DAILY [facility] Last Admin: 12/24/16 11:22 Dose: Not Given Senna (Senna -) 2 tab PO HS PRN PRN Reason: CONSTIPATION Simethicone (Mylicon -) 80 mg PO QID PRN PRN Reason: GAS Tramadol HCl (Ultram -) 25 mg PO Q6H PRN PRN Reason: PAIN Last Admin: 12/24/16 12:58 Dose: 25 mg A/P 71 year old woman with PMhx of ESRD on HD (MWF), CAD s/p PCI and stenting, DM Type 2 on insulin, PVD s/p Multiple amputations, Multiple failed dialysis accesses s/p recent HERO graft infection presents after being found to have new onset Afib by Cardiology. #New onset Afib on Heparin gtt Anticoagulation as per Cardiology Rate is controlled #ESRD on HD Tolerated HD Well today UF as tolerated Renal Diet 1.2 L fluid restriction daily #Breast Wound continue wound care Surgical follow up #Renal Osteodystrophy Continue calcium acetate Trend Phos levels Thank you Will follow Wan Cruz DO
[2016-12-24] MEDS ORDERED: INSULIN (NOVOLOG) ASPART 100 UNITS/ML 10ML VIAL ONE ×2 (16:03→21:02)
[2016-12-24] MEDS: INSULIN SLIDING SCALE (NOVOLOG) 1 VIAL SQ SCH ×2 (16:47→21:14)
[2016-12-24] MEDS ORDERED: PT OWN MED DRAWER 7, Y5N ONE (16:52)
[2016-12-24] MEDS: SODIUM HYPOCHLORITE 0.5% 473 ML- BULK BOTTLE TP SCH (21:13)
[2016-12-24] MEDS: ALPRAZolam 0.25 MG TABLET PO PRN (21:14)
[2016-12-24] MEDS: diphenhydrAMINE HCL 25 MG CAPSULE (FP) PO PRN (21:14)
[2016-12-25] MEDS: SENNOSIDES 8.6MG TABLET (FP) PO PRN (05:55)
[2016-12-25] MEDS: INSULIN SLIDING SCALE (NOVOLOG) 1 VIAL SQ SCH ×4 (06:05→21:20)
[2016-12-25] MEDS: LEVOTHYROXINE NA 100 MCG TABLET (FP) PO SCH (06:05)
[2016-12-25] MEDS: INSULIN DETEMIR 100 UNITS/ML MDV SQ SCH ×2 (06:05→16:42)
[2016-12-25 08:07] LABS: HEP B SURFACE AB Reactive (.)
[2016-12-25] MEDS: CALCIUM ACETATE 667 MG CAPSULE (FP) PO SCH ×3 (08:22→16:41)
[2016-12-25] MEDS: METOPROLOL SUCCINATE 25 MG TAB.SR.24H (FP) PO SCH (09:17)
[2016-12-25] MEDS: PANTOPRAZOLE 40 MG TABLET (FP) PO SCH (09:17)
[2016-12-25] MEDS: HEPARIN - 25,000 UNIT in SODIUM CHLORIDE 495 ML IV SCH ×2 (10:08→16:38)
--- NOTE | 2016-12-25 10:34 | PN ---
Progress Note (short form) - Note Progress Note: Chief Complaint: Events noted, notes reviewed, denies any chest pain or dyspnea , remains in atrial fibrillation rate controlled History of Present Illness: Seen and examined on telemetry. Events noted, notes reviewed, denies any chest pain or dyspnea, remains in atrial fibrillation rate controlled According to the patient that surgical intervention for breast wound debridment is planned for later this week, patient needs to be A/C for the above noted new onset AF and NOAC's have not been studied with ESRD-HD dependent patients ( small series with [facility]), so Heparin to be continued till Coumadin therapy is initiated Medications: Current Medications Alprazolam (Xanax -) 0.25 mg PO Q12H PRN Last Admin: 12/24/16 21:14 Dose: 0.25 mg Calamine (Calamine 8% Topical Lotion -) 1 applic TP QID PRN PRN Reason: FOR ITCHING Calcium Acetate (Phoslo -) 667 mg PO TIDCM [facility] Last Admin: 12/25/16 08:22 Dose: 667 mg Diphenhydramine HCl (Benadryl -) 25 mg PO Q6H PRN PRN Reason: FOR ITCHING Last Admin: 12/24/16 21:14 Dose: 25 mg Heparin Sodium (Porcine) (Heparin -) 1,000 unit IVPUSH PRN PRN PRN Reason: Heparin Heparin Sodium (Porcine) (Heparin -) 5,000 unit IVPUSH PRN PRN PRN Reason: Heparin Last Admin: 12/24/16 21:14 Dose: 5,000 unit Heparin Sodium (Porcine) 25, (000 unit/ Sodium Chloride) 500 mls @ 20 mls/hr IV TITR YOAN; 1,000 UNIT/HR PRN Reason: Protocol Last Admin: 12/25/16 10:08 Dose: 25 mls/hr Insulin Aspart (Novolog Vial Sliding Scale -) 1 vial SQ ACHS [facility] PRN Reason: Protocol Last Admin: 12/25/16 06:05 Dose: Not Given Insulin Detemir (Levemir Vial) 20 units SQ BIDI [facility] Last Admin: 12/25/16 06:05 Dose: 20 units Levothyroxine Sodium (Synthroid -) 200 mcg PO AM [facility] Last Admin: 12/25/16 06:05 Dose: 200 mcg Metoprolol Succinate (Toprol Xl -) 12.5 mg PO DAILY [facility] Last Admin: 12/25/16 09:17 Dose: 12.5 mg Pantoprazole Sodium (Protonix -) 40 mg PO DAILY [facility] Last Admin: 12/25/16 09:17 Dose: 40 mg Senna (Senna -) 2 tab PO HS PRN PRN Reason: CONSTIPATION Last Admin: 12/25/16 05:55 Dose: 2 tab Simethicone (Mylicon -) 80 mg PO QID PRN PRN Reason: GAS Sodium Hypochlorite (Dakin's Solution 0.5% (Full Strength) -) 1 applic TP DAILY [facility] Last Admin: 12/24/16 21:13 Dose: 1 applic Tramadol HCl (Ultram -) 25 mg PO Q6H PRN PRN Reason: PAIN Last Admin: 12/24/16 12:58 Dose: 25 mg Review of Systems - Review of Systems Cardiovascular: As noted above Respiratory: denies: Cough or Sputum Production Gastrointestinal: denies: Nausea, Vomiting, Diarrhea, Constipation or Abdominal Pain Musculoskeletal: No symptoms reported Neurological: No symptoms reported Vital Signs: Last Vital Signs Temp Pulse Resp BP Pulse Ox 98 F 84 18 128/52 98 12/25/16 09:28 12/25/16 09:28 12/25/16 09:28 12/25/16 09:28 12/24/16 21:00 Neck: Supple Negative JVD No Bruit Respiratory: Clear to A&P Bilaterally Cardiovascular: S1 S2 Irregularly Irregular Gastrointestinal: Soft Benign Normal Bowel Sounds Extremities: Amputation (Right AKA and left TMA) Labs: CBC, BMP 12/24/16 06:07 12/24/16 06:07 Assessment/Plan ASSESSMENT: 1. New onset paroxysmal atrial fibrillation rate controlled, on Heparin [id number] score of 5 2. CAD post multi-vessel PCI, angina pectoris 3. LV diastolic dysfunction with chronic class I NYHA classifcation LV failure, compensated 4. HTN 5. IDDM 6. Hypercholesterolemia 7. Hypothyroidism 8. PVD post right AKA and left TMA 9. ESRD on HD, infected AV graft 10. Breast carcinoma, for wound debridment PLAN: 1. Heparin drip as outlined above and transition to Coumadin once the procedure is completed 2. Recommend continuation of ASA therapy lucy-operatively, unless it is absolutely contraindicated 3. Continue Lopressor 4. HD as per renal service 5. There are no absolute contraindication in proceeding with planned surgical intervention considering that there is no clinical evidence of ACS and/or de- compensated congestive heart failure and/or malignant sustained arrhythmia Reina Crowe MD
--- NOTE | 2016-12-25 11:03 | PN ---
Progress Note, Physician Chief Complaint: Events noted Has pain in left breast On Heparin drip for Afib - Current Medication List Current Medications: Active Medications Alprazolam (Xanax -) 0.25 mg PO Q12H PRN Last Admin: 12/24/16 21:14 Dose: 0.25 mg Aspirin (Ecotrin -) 81 mg PO DAILY [facility] Calamine (Calamine 8% Topical Lotion -) 1 applic TP QID PRN PRN Reason: FOR ITCHING Calcium Acetate (Phoslo -) 667 mg PO TIDCM [facility] Last Admin: 12/25/16 08:22 Dose: 667 mg Diphenhydramine HCl (Benadryl -) 25 mg PO Q6H PRN PRN Reason: FOR ITCHING Last Admin: 12/24/16 21:14 Dose: 25 mg Heparin Sodium (Porcine) (Heparin -) 1,000 unit IVPUSH PRN PRN PRN Reason: Heparin Heparin Sodium (Porcine) (Heparin -) 5,000 unit IVPUSH PRN PRN PRN Reason: Heparin Last Admin: 12/24/16 21:14 Dose: 5,000 unit Heparin Sodium (Porcine) 25, (000 unit/ Sodium Chloride) 500 mls @ 20 mls/hr IV TITR YOAN; 1,000 UNIT/HR PRN Reason: Protocol Last Admin: 12/25/16 10:08 Dose: 25 mls/hr Insulin Aspart (Novolog Vial Sliding Scale -) 1 vial SQ ACHS [facility] PRN Reason: Protocol Last Admin: 12/25/16 06:05 Dose: Not Given Insulin Detemir (Levemir Vial) 20 units SQ BIDI [facility] Last Admin: 12/25/16 06:05 Dose: 20 units Levothyroxine Sodium (Synthroid -) 200 mcg PO AM [facility] Last Admin: 12/25/16 06:05 Dose: 200 mcg Metoprolol Succinate (Toprol Xl -) 12.5 mg PO DAILY [facility] Last Admin: 12/25/16 09:17 Dose: 12.5 mg Pantoprazole Sodium (Protonix -) 40 mg PO DAILY [facility] Last Admin: 12/25/16 09:17 Dose: 40 mg Senna (Senna -) 2 tab PO HS PRN PRN Reason: CONSTIPATION Last Admin: 12/25/16 05:55 Dose: 2 tab Simethicone (Mylicon -) 80 mg PO QID PRN PRN Reason: GAS Sodium Hypochlorite (Dakin's Solution 0.5% (Full Strength) -) 1 applic TP DAILY [facility] Last Admin: 12/24/16 21:13 Dose: 1 applic Tramadol HCl (Ultram -) 25 mg PO Q6H PRN PRN Reason: PAIN Last Admin: 12/24/16 12:58 Dose: 25 mg - Objective Vital Signs: Vital Signs Temperature 98 F 12/25/16 09:28 Pulse Rate 84 12/25/16 09:28 Respiratory Rate 18 12/25/16 09:28 Blood Pressure 128/52 12/25/16 09:28 O2 Sat by Pulse Oximetry (%) 98 12/24/16 21:00 Constitutional: Yes: No Distress Cardiovascular: Yes: Pulse Irregular Respiratory: Yes: CTA Bilaterally Gastrointestinal: Yes: Normal Bowel Sounds, Soft. No: Distention, Tenderness Breast(s): Yes: Left (deep ulcer, discharge- yellowish , surrounding induration) Edema: No Labs: CBC, BMP 12/24/16 06:07 12/24/16 06:07 INR, PTT INR 1.20 (0.82-1.09) H 12/24/16 06:07 Problem List - Problems (1) Atrial fibrillation Code(s): I48.91 - UNSPECIFIED ATRIAL FIBRILLATION Qualifiers: Atrial fibrillation type: unspecified Qualified Code(s): I48.91 - Unspecified atrial fibrillation (2) Breast abscess Code(s): N61.1 - ABSCESS OF THE BREAST AND NIPPLE (3) CAD (coronary artery disease) Code(s): I25.10 - ATHSCL HEART DISEASE OF [place] CORONARY ARTERY W/O ANG PCTRS Qualifiers: Coronary Disease-Associated Artery/Lesion type: [place] artery [place] vs. transplanted heart: [place] heart Associated angina: without angina Qualified Code(s): I25.10 - Atherosclerotic heart disease of [place] coronary artery without angina pectoris (4) ESRD on hemodialysis Code(s): N18.6 - END STAGE RENAL DISEASE Z99.2 - DEPENDENCE ON RENAL DIALYSIS (5) HTN (hypertension) Code(s): I10 - ESSENTIAL (PRIMARY) HYPERTENSION Qualifiers: Hypertension type: essential hypertension Qualified Code(s): I10 - Essential (primary) hypertension Assessment/Plan PLAN On Heparin infusion Plastic surgeon is Dr Moreno Mckenna who will be doing surgery prob this tuesday Will consult ID -- spoke to Dr Das Continue with meds wound care daily Started on ASA today Plavix dc Coumadin not started for anticipation of surgery
[2016-12-25] MEDS: ASPIRIN COATED 81 MG TABLET.EC PO SCH (11:18)
--- NOTE | 2016-12-25 13:43 | PN ---
Progress Note (short form) - Note Progress Note: ID consult dictated imp/reccd 71 year old female with at least a two month history of left breast infection/ mass/ulcer debrided at [facility] , treated with vanco and keflex no results available she had a mammo/sono and cutures there no fevers now has a large ulcer , multiple firm small passes noted as well has she had a biopsy? suggest getting records from [facility] consider breast surgery evaluation keep off antiibotics for now esr/crp will d/w Dr Pascual esrd/hd Diabetes
[2016-12-25] MEDS: SODIUM HYPOCHLORITE 0.5% 473 ML- BULK BOTTLE TP SCH (14:19)
--- NOTE | 2016-12-25 15:06 | PN ---
Progress Note, Physician Chief Complaint: Pastient seen in her room. Family by her side. Had uneventful HD yesterday. No chest pain, No shortness of breath. On Heparin to bridge for the breast surgery. - Current Medication List Current Medications: Active Medications Alprazolam (Xanax -) 0.25 mg PO Q12H PRN Last Admin: 12/24/16 21:14 Dose: 0.25 mg Aspirin (Ecotrin -) 81 mg PO DAILY [facility] Last Admin: 12/25/16 11:18 Dose: 81 mg Calamine (Calamine 8% Topical Lotion -) 1 applic TP QID PRN PRN Reason: FOR ITCHING Calcium Acetate (Phoslo -) 667 mg PO TIDCM [facility] Last Admin: 12/25/16 11:18 Dose: 667 mg Diphenhydramine HCl (Benadryl -) 25 mg PO Q6H PRN PRN Reason: FOR ITCHING Last Admin: 12/24/16 21:14 Dose: 25 mg Heparin Sodium (Porcine) (Heparin -) 1,000 unit IVPUSH PRN PRN PRN Reason: Heparin Heparin Sodium (Porcine) (Heparin -) 5,000 unit IVPUSH PRN PRN PRN Reason: Heparin Last Admin: 12/24/16 21:14 Dose: 5,000 unit Heparin Sodium (Porcine) 25, (000 unit/ Sodium Chloride) 500 mls @ 20 mls/hr IV TITR YOAN; 1,000 UNIT/HR PRN Reason: Protocol Last Admin: 12/25/16 10:08 Dose: 25 mls/hr Insulin Aspart (Novolog Vial Sliding Scale -) 1 vial SQ ACHS [facility] PRN Reason: Protocol Last Admin: 12/25/16 11:19 Dose: Not Given Insulin Detemir (Levemir Vial) 20 units SQ BIDI [facility] Last Admin: 12/25/16 06:05 Dose: 20 units Levothyroxine Sodium (Synthroid -) 200 mcg PO AM [facility] Last Admin: 12/25/16 06:05 Dose: 200 mcg Metoprolol Succinate (Toprol Xl -) 12.5 mg PO DAILY [facility] Last Admin: 12/25/16 09:17 Dose: 12.5 mg Pantoprazole Sodium (Protonix -) 40 mg PO DAILY [facility] Last Admin: 12/25/16 09:17 Dose: 40 mg Senna (Senna -) 2 tab PO HS PRN PRN Reason: CONSTIPATION Last Admin: 12/25/16 05:55 Dose: 2 tab Simethicone (Mylicon -) 80 mg PO QID PRN PRN Reason: GAS Sodium Hypochlorite (Dakin's Solution 0.5% (Full Strength) -) 1 applic TP DAILY [facility] Last Admin: 12/25/16 14:19 Dose: 1 applic Tramadol HCl (Ultram -) 25 mg PO Q6H PRN PRN Reason: PAIN Last Admin: 12/24/16 12:58 Dose: 25 mg - Objective Vital Signs: Vital Signs Temperature 97.7 F 12/25/16 14:00 Pulse Rate 86 12/25/16 14:00 Respiratory Rate 18 12/25/16 14:00 Blood Pressure 124/54 12/25/16 14:00 O2 Sat by Pulse Oximetry (%) 96 12/25/16 09:00 Constitutional: Yes: Well Nourished, Calm HENT: Yes: Atraumatic, Normocephalic Neck: Yes: Trachea Midline Cardiovascular: Yes: Regular Rate and Rhythm, S1, S2 Respiratory: Yes: CTA Bilaterally Gastrointestinal: Yes: Normal Bowel Sounds, Soft Breast(s): Yes: Other (ulcer) Extremities: Yes: Amputation (Right AKA and Left [place]-midtarsal) Labs: CBC, BMP 12/24/16 06:07 12/24/16 06:07 INR, PTT INR 1.20 (0.82-1.09) H 12/24/16 06:07 Problem List - Problems (1) Atrial fibrillation Code(s): I48.91 - UNSPECIFIED ATRIAL FIBRILLATION Qualifiers: Atrial fibrillation type: unspecified Qualified Code(s): I48.91 - Unspecified atrial fibrillation (2) Breast abscess Code(s): N61.1 - ABSCESS OF THE BREAST AND NIPPLE (3) CAD (coronary artery disease) Code(s): I25.10 - ATHSCL HEART DISEASE OF [place] CORONARY ARTERY W/O ANG PCTRS Qualifiers: Coronary Disease-Associated Artery/Lesion type: [place] artery [place] vs. transplanted heart: [place] heart Associated angina: without angina Qualified Code(s): I25.10 - Atherosclerotic heart disease of [place] coronary artery without angina pectoris (4) ESRD on hemodialysis Code(s): N18.6 - END STAGE RENAL DISEASE Z99.2 - DEPENDENCE ON RENAL DIALYSIS (5) HTN (hypertension) Code(s): I10 - ESSENTIAL (PRIMARY) HYPERTENSION Qualifiers: Hypertension type: essential hypertension Qualified Code(s): I10 - Essential (primary) hypertension (6) History of percutaneous coronary intervention Code(s): Z98.890 - OTHER SPECIFIED POSTPROCEDURAL STATES (7) Hypercholesterolemia Code(s): E78.00 - PURE HYPERCHOLESTEROLEMIA, UNSPECIFIED (8) Anemia Code(s): D64.9 - ANEMIA, UNSPECIFIED Qualifiers: Other causes of anemia: chronic disease, kidney (9) Anemia in ESRD (end-stage renal disease) Code(s): N18.6 - END STAGE RENAL DISEASE D63.1 - ANEMIA IN CHRONIC KIDNEY DISEASE (10) Breast mass, left Code(s): N63 - UNSPECIFIED LUMP IN BREAST (11) Breast pain, left Code(s): N64.4 - MASTODYNIA Assessment/Plan 71 y/o female with ESRD, on HD, now has new onset A Fib,and left breast mass/ ulcer. For surgery next week. On IV heparin to bridge for the surgery. Had uneventful HD yesterday. Reviewed Labs and Medications. Next HD scheduled for Tuesday
--- NOTE | 2016-12-25 15:19 | CONS ---
DATE OF CONSULTATION: REQUESTING PHYSICIAN: Dr. Evnas HISTORY: This is a 71-year-old woman with a history of end-stage renal disease and diabetes. She was in the hospital here in September of this year with a failed HeRO graft that was removed. She received IV antibiotics. At that time, she was noted to have some swelling of her breasts, and she was seen by surgery. She underwent a sonogram. She had no discrete lesions. It was felt to be shrinking in size, and she was discharged to have close outpatient follow up on September 29. She [facility] the prison where apparently from which she stayed for 2-1/2 months. She was just discharged 2 days ago. While at the prison she was sent to the hospital for evaluation again of this left breast mass. She had a sonogram and a mammogram. She had a debridement there by Surgery. She received Keflex and vancomycin. While she was there she made an appointment to see a plastic surgeon at [place], and she is scheduled for further debridement with the plastic surgeon later this week. After discharge from the hospital, she was seen by her open hearth door liner. She was noted to be tachycardic, and she was found to be in new onset atrial fibrillation and sent to the hospital. She denies any fevers or chills. She has no nausea or vomiting. She, otherwise, feels well. PAST MEDICAL HISTORY: Notable for end-stage renal disease. She is on dialysis. She has a history of diabetes, peripheral vascular disease, diastolic dysfunction, hyperlipidemia, hypothyroidism. She is status post right AKA. She has had left metatarsal amputation. She had debridement of the breast abscess. She has had a failed HeRO graft. She currently has a PermCath. ALLERGIES: SULFA. Her AMPICILLIN allergy is vomiting. FAMILY HISTORY: Noncontributory. SOCIAL HISTORY: There is no history of any cigarette, alcohol, or substance use. REVIEW OF SYSTEMS: There is no fevers or chills. No nausea or vomiting. She is feeling better. Her chest pain and palpitations are improved. PHYSICAL EXAMINATION: General: She is awake and alert. Vital Signs: Temperature is 97.7, pulse 86, blood pressure 124/54, respiratory rate 18, saturating 96% on room air. HEENT: She is normocephalic. Her eyes are anicteric. Neck: Supple. Lungs: Clear to auscultation. Heart: Regular rate and rhythm. Breasts: She has a left breast mass that is quite deep. There is a thick exudate in it. There is no drainage. There is no surrounding erythema. There are no multiple papular small masses surrounding this area. She has 2 lesions that are quite deep. Skin: Her prior HeRO scar on her arm is healed, and she has a PermCath that is nontender. Abdomen: Soft. Extremities: Her AKA site is without erythema. White count 7.8, hemoglobin 11.6, platelets 305, BUN 38, creatinine 5.8. LFTs are normal. In summary, this is a 71-year-old woman with a chronic breast wound. It is really not clear if she has had a biopsy. I would suggest getting records from [facility]. I would consider a breast surgery evaluation. I think perhaps this may be the best option for her. Given the fact she has had this chronic ulcer for at least 2 months, I do not see a need to start antibiotics at this time as there is no evidence of surrounding cellulitis or drainage. Would check a sedimentation rate and CRP. Will discuss with Dr. Pascual. Further recommendations to follow. EMMA HUFF M.D. [id number]
[2016-12-25] MEDS: diphenhydrAMINE HCL 25 MG CAPSULE (FP) PO PRN (21:21)
[2016-12-25] MEDS: traMADol HCL 50 MG TABLET PO PRN (21:21)
[2016-12-25] MEDS: POLYETHYLENE GLYCOL 3350 119 GM BTL PO SCH (21:22)
[2016-12-26] MEDS: INSULIN SLIDING SCALE (NOVOLOG) 1 VIAL SQ SCH ×4 (06:30→21:49)
[2016-12-26] MEDS: LEVOTHYROXINE NA 100 MCG TABLET (FP) PO SCH (06:30)
[2016-12-26] MEDS: INSULIN DETEMIR 100 UNITS/ML MDV SQ SCH ×2 (06:30→17:27)
[2016-12-26 08:19] LABS: MCH 29.5 pg (25.7-33.7); MCHC 32.6 g/dl (32.0-36.0); MEAN CELL VOLUME 90.4 fl (80-96); MEAN PLT VOLUME 7.8 fl (7.5-11.1); PLATELET COUNT 336 K/MM3 (134-434); RDW 16.7 % (11.6-15.6); WHITE BLOOD COUNT 8.5 K/mm3 (4.0-10.0)
[2016-12-26] MEDS: CALCIUM ACETATE 667 MG CAPSULE (FP) PO SCH ×3 (08:21→16:52)
--- NOTE | 2016-12-26 08:52 | PN ---
Progress Note, Physician Chief Complaint: no complaints On Heparin drip for Afib - Current Medication List Current Medications: Active Medications Alprazolam (Xanax -) 0.25 mg PO Q12H PRN Last Admin: 12/24/16 21:14 Dose: 0.25 mg Aspirin (Ecotrin -) 81 mg PO DAILY [facility] Last Admin: 12/25/16 11:18 Dose: 81 mg Calamine (Calamine 8% Topical Lotion -) 1 applic TP QID PRN PRN Reason: FOR ITCHING Calcium Acetate (Phoslo -) 667 mg PO TIDCM [facility] Last Admin: 12/26/16 08:21 Dose: 667 mg Diphenhydramine HCl (Benadryl -) 25 mg PO Q6H PRN PRN Reason: FOR ITCHING Last Admin: 12/25/16 21:21 Dose: 25 mg Heparin Sodium (Porcine) (Heparin -) 1,000 unit IVPUSH PRN PRN PRN Reason: Heparin Heparin Sodium (Porcine) (Heparin -) 5,000 unit IVPUSH PRN PRN PRN Reason: Heparin Last Admin: 12/24/16 21:14 Dose: 5,000 unit Heparin Sodium (Porcine) 25, (000 unit/ Sodium Chloride) 500 mls @ 20 mls/hr IV TITR YOAN; 1,000 UNIT/HR PRN Reason: Protocol Last Admin: 12/25/16 16:38 Dose: 25 mls/hr Insulin Aspart (Novolog Vial Sliding Scale -) 1 vial SQ ACHS [facility] PRN Reason: Protocol Last Admin: 12/26/16 06:30 Dose: Not Given Insulin Detemir (Levemir Vial) 20 units SQ BIDI [facility] Last Admin: 12/26/16 06:30 Dose: 20 units Levothyroxine Sodium (Synthroid -) 200 mcg PO AM [facility] Last Admin: 12/26/16 06:30 Dose: 200 mcg Metoprolol Succinate (Toprol Xl -) 12.5 mg PO DAILY [facility] Last Admin: 12/25/16 09:17 Dose: 12.5 mg Pantoprazole Sodium (Protonix -) 40 mg PO DAILY [facility] Last Admin: 12/25/16 09:17 Dose: 40 mg Polyethylene Glycol (Miralax (For Daily Use) -) 17 gm PO DAILY [facility] Last Admin: 12/25/16 21:22 Dose: 17 gm Senna (Senna -) 2 tab PO HS PRN PRN Reason: CONSTIPATION Last Admin: 12/25/16 05:55 Dose: 2 tab Simethicone (Mylicon -) 80 mg PO QID PRN PRN Reason: GAS Sodium Hypochlorite (Dakin's Solution 0.5% (Full Strength) -) 1 applic TP DAILY [facility] Last Admin: 12/25/16 14:19 Dose: 1 applic Tramadol HCl (Ultram -) 25 mg PO Q6H PRN PRN Reason: PAIN Last Admin: 12/25/16 21:21 Dose: 25 mg - Objective Vital Signs: Vital Signs Temperature 98.5 F 12/26/16 06:00 Pulse Rate 94 H 12/26/16 08:05 Respiratory Rate 20 12/26/16 08:05 Blood Pressure 142/65 12/26/16 08:05 O2 Sat by Pulse Oximetry (%) 96 12/25/16 21:00 Constitutional: Yes: No Distress Cardiovascular: Yes: Pulse Irregular Respiratory: Yes: CTA Bilaterally Gastrointestinal: Yes: Normal Bowel Sounds, Soft. No: Distention, Tenderness Breast(s): Yes: Left (ulcer) Edema: No Labs: CBC, BMP 12/26/16 06:02 12/24/16 06:07 INR, PTT INR 1.20 (0.82-1.09) H 12/24/16 06:07 Problem List - Problems (1) Atrial fibrillation Code(s): I48.91 - UNSPECIFIED ATRIAL FIBRILLATION Qualifiers: Atrial fibrillation type: unspecified Qualified Code(s): I48.91 - Unspecified atrial fibrillation (2) Breast abscess Code(s): N61.1 - ABSCESS OF THE BREAST AND NIPPLE (3) CAD (coronary artery disease) Code(s): I25.10 - ATHSCL HEART DISEASE OF [place] CORONARY ARTERY W/O ANG PCTRS Qualifiers: Coronary Disease-Associated Artery/Lesion type: [place] artery [place] vs. transplanted heart: [place] heart Associated angina: without angina Qualified Code(s): I25.10 - Atherosclerotic heart disease of [place] coronary artery without angina pectoris (4) ESRD on hemodialysis Code(s): N18.6 - END STAGE RENAL DISEASE Z99.2 - DEPENDENCE ON RENAL DIALYSIS (5) HTN (hypertension) Code(s): I10 - ESSENTIAL (PRIMARY) HYPERTENSION Qualifiers: Hypertension type: essential hypertension Qualified Code(s): I10 - Essential (primary) hypertension Assessment/Plan PLAN On Heparin infusion Plastic surgeon is Dr Moreno Mckenna who will be doing surgery prob this -- consult placed will get records from [facility]. Continue with meds wound care daily Started on ASA today Plavix dc Coumadin not started for anticipation of surgery
--- NOTE | 2016-12-26 09:43 | PN ---
Progress Note (short form) - Note Progress Note: Chief Complaint: Events noted, notes reviewed, denies any chest pain or dyspnea , denies any palpitations, remains in atrial fibrillation rate controlled History of Present Illness: Seen and examined on telemetry. Events noted, notes reviewed, denies any chest pain or dyspnea, denies any palpitations, remains in atrial fibrillation rate controlled Patient is tentatively scheduled for the OR this coming for breast wound debridment, Recommend continuation of Heparin therapy and transitioning to Coumadin therapy post completion of the above noted procedure Not appropriate to utilize NOAC's with ESRD-HD dependent patients (small series with Francisca) Medications: Current Medications Alprazolam (Xanax -) 0.25 mg PO Q12H PRN Last Admin: 12/24/16 21:14 Dose: 0.25 mg Aspirin (Ecotrin -) 81 mg PO DAILY [facility] Last Admin: 12/25/16 11:18 Dose: 81 mg Calamine (Calamine 8% Topical Lotion -) 1 applic TP QID PRN PRN Reason: FOR ITCHING Calcium Acetate (Phoslo -) 667 mg PO TIDCM [facility] Last Admin: 12/26/16 08:21 Dose: 667 mg Diphenhydramine HCl (Benadryl -) 25 mg PO Q6H PRN PRN Reason: FOR ITCHING Last Admin: 12/25/16 21:21 Dose: 25 mg Heparin Sodium (Porcine) (Heparin -) 1,000 unit IVPUSH PRN PRN PRN Reason: Heparin Heparin Sodium (Porcine) (Heparin -) 5,000 unit IVPUSH PRN PRN PRN Reason: Heparin Last Admin: 12/24/16 21:14 Dose: 5,000 unit Heparin Sodium (Porcine) 25, (000 unit/ Sodium Chloride) 500 mls @ 20 mls/hr IV TITR YOAN; 1,000 UNIT/HR PRN Reason: Protocol Last Admin: 12/25/16 16:38 Dose: 25 mls/hr Insulin Aspart (Novolog Vial Sliding Scale -) 1 vial SQ ACHS [facility] PRN Reason: Protocol Last Admin: 12/26/16 06:30 Dose: Not Given Insulin Detemir (Levemir Vial) 20 units SQ BIDI [facility] Last Admin: 12/26/16 06:30 Dose: 20 units Levothyroxine Sodium (Synthroid -) 200 mcg PO AM [facility] Last Admin: 12/26/16 06:30 Dose: 200 mcg Metoprolol Succinate (Toprol Xl -) 12.5 mg PO DAILY [facility] Last Admin: 12/25/16 09:17 Dose: 12.5 mg Pantoprazole Sodium (Protonix -) 40 mg PO DAILY [facility] Last Admin: 12/25/16 09:17 Dose: 40 mg Polyethylene Glycol (Miralax (For Daily Use) -) 17 gm PO DAILY [facility] Last Admin: 12/25/16 21:22 Dose: 17 gm Senna (Senna -) 2 tab PO HS PRN PRN Reason: CONSTIPATION Last Admin: 12/25/16 05:55 Dose: 2 tab Simethicone (Mylicon -) 80 mg PO QID PRN PRN Reason: GAS Sodium Hypochlorite (Dakin's Solution 0.5% (Full Strength) -) 1 applic TP DAILY [facility] Last Admin: 12/25/16 14:19 Dose: 1 applic Tramadol HCl (Ultram -) 25 mg PO Q6H PRN PRN Reason: PAIN Last Admin: 12/25/16 21:21 Dose: 25 mg Review of Systems - Review of Systems Cardiovascular: As noted above Respiratory: denies: Cough or Sputum Production Gastrointestinal: denies: Nausea, Vomiting, Diarrhea, Constipation or Abdominal Pain Musculoskeletal: No symptoms reported Neurological: No symptoms reported Vital Signs: Last Vital Signs Temp Pulse Resp BP Pulse Ox 98.5 F 94 H 20 142/65 96 12/26/16 06:00 12/26/16 08:05 12/26/16 08:05 12/26/16 08:05 12/25/16 21:00 Neck: Supple Negative JVD No Bruit Respiratory: Clear to A&P Bilaterally Cardiovascular: S1 S2 Irregularly Irregular Gastrointestinal: Soft Benign Normal Bowel Sounds Extremities: Amputation (Right AKA and left TMA) Labs: CBC, BMP 12/26/16 06:02 12/24/16 06:07 INR, PTT INR 1.20 (0.82-1.09) H 12/24/16 06:07 Assessment/Plan ASSESSMENT: 1. New onset paroxysmal atrial fibrillation rate controlled, on Heparin [id number] score of 5 2. CAD post multi-vessel PCI, angina pectoris 3. LV diastolic dysfunction with chronic class I NYHA classifcation LV failure, compensated 4. HTN 5. IDDM 6. Hypercholesterolemia 7. Hypothyroidism 8. PVD post right AKA and left TMA 9. ESRD on HD, infected AV graft 10. Breast carcinoma, for wound debridment as outlined above PLAN: 1. Heparin drip as outlined above and transition to Coumadin once the procedure is completed 2. As outlined recommend continuation of ASA therapy lucy-operatively, unless it is absolutely contraindicated 3. Continue Lopressor 4. HD as per renal service 5. There are no absolute contraindication in proceeding with planned surgical intervention considering that there is no clinical evidence of ACS and/or de- compensated congestive heart failure and/or malignant sustained arrhythmia Reina Crowe MD
[2016-12-26] MEDS: PANTOPRAZOLE 40 MG TABLET (FP) PO SCH (10:18)
[2016-12-26] MEDS: ASPIRIN COATED 81 MG TABLET.EC PO SCH (10:18)
[2016-12-26] MEDS: METOPROLOL SUCCINATE 25 MG TAB.SR.24H (FP) PO SCH (10:19)
[2016-12-26] MEDS: HEPARIN - 25,000 UNIT in SODIUM CHLORIDE 495 ML IV SCH ×2 (10:21→16:52)
[2016-12-26] MEDS: POLYETHYLENE GLYCOL 3350 119 GM BTL PO SCH (10:42)
[2016-12-26] MEDS: SODIUM HYPOCHLORITE 0.5% 473 ML- BULK BOTTLE TP SCH ×2 (10:46→21:49)
[2016-12-26] MEDS: traMADol HCL 50 MG TABLET PO PRN ×2 (11:29→21:48)
[2016-12-26] MEDS: SENNOSIDES 8.6MG TABLET (FP) PO PRN (21:48)
[2016-12-26] MEDS: diphenhydrAMINE HCL 25 MG CAPSULE (FP) PO PRN (21:48)
[2016-12-27] MEDS: LEVOTHYROXINE NA 100 MCG TABLET (FP) PO SCH (05:59)
[2016-12-27] MEDS: INSULIN SLIDING SCALE (NOVOLOG) 1 VIAL SQ SCH ×4 (05:59→22:12)
[2016-12-27] MEDS: INSULIN DETEMIR 100 UNITS/ML MDV SQ SCH ×2 (06:02→17:17)
[2016-12-27 07:52] LABS: MCH 28.9 pg (25.7-33.7); MCHC 31.9 g/dl (32.0-36.0); MEAN CELL VOLUME 90.7 fl (80-96); MEAN PLT VOLUME 7.9 fl (7.5-11.1); PLATELET COUNT 345 K/MM3 (134-434); RDW 16.5 % (11.6-15.6); WHITE BLOOD COUNT 8.2 K/mm3 (4.0-10.0)
[2016-12-27] MEDS: CALCIUM ACETATE 667 MG CAPSULE (FP) PO SCH ×3 (08:12→17:17)
--- NOTE | 2016-12-27 08:46 | PN ---
Progress Note (short form) - Note Progress Note: Subjective Patient seen and examined. Chart reviewed. Comfortable. No complaints. Objective Last Vital Signs Temp Pulse Resp BP Pulse Ox 98.2 F 89 16 152/49 97 12/27/16 06:00 12/27/16 06:00 12/27/16 06:00 12/27/16 06:00 12/26/16 21:00 CBC, BMP 12/27/16 06:00 12/24/16 06:07 Laboratory Results - last 24 hr 12/26/16 12/26/16 12/26/16 06:02 11:33 16:55 WBC RBC Hgb Hct MCV MCHC RDW Plt Count MPV ESR 120 H PTT (Actin FS) POC Glucometer 114 233 12/26/16 12/26/16 12/27/16 17:50 21:41 01:35 WBC RBC Hgb Hct MCV MCHC RDW Plt Count MPV ESR PTT (Actin FS) 39.2 H 145.2 H D POC Glucometer 175 12/27/16 12/27/16 12/27/16 05:35 06:00 06:00 WBC 8.2 RBC 4.13 Hgb 11.9 Hct 37.5 MCV 90.7 MCHC 31.9 L RDW 16.5 H Plt Count 345 MPV 7.9 ESR PTT (Actin FS) 71.0 H D POC Glucometer 93 Physical Exam Constitutional: Yes: No Distress Cardiovascular: Yes: Pulse Irregular Respiratory: Yes: CTA Bilaterally Gastrointestinal: Yes: Normal Bowel Sounds, Soft. No: Distention, Tenderness Breast(s): Yes: Left (ulcer) Edema: No Problem List - Problems (1) Atrial fibrillation Code(s): I48.91 - UNSPECIFIED ATRIAL FIBRILLATION Qualifiers: Atrial fibrillation type: unspecified Qualified Code(s): I48.91 - Unspecified atrial fibrillation (2) Breast abscess Code(s): N61.1 - ABSCESS OF THE BREAST AND NIPPLE (3) CAD (coronary artery disease) Code(s): I25.10 - ATHSCL HEART DISEASE OF [place] CORONARY ARTERY W/O ANG PCTRS Qualifiers: Coronary Disease-Associated Artery/Lesion type: [place] artery [place] vs. transplanted heart: [place] heart Associated angina: without angina Qualified Code(s): I25.10 - Atherosclerotic heart disease of [place] coronary artery without angina pectoris (4) ESRD on hemodialysis Code(s): N18.6 - END STAGE RENAL DISEASE Z99.2 - DEPENDENCE ON RENAL DIALYSIS (5) HTN (hypertension) Code(s): I10 - ESSENTIAL (PRIMARY) HYPERTENSION Qualifiers: Hypertension type: essential hypertension Qualified Code(s): I10 - Essential (primary) hypertension Assessment and Plan On Heparin infusion Plastic surgeon is Dr Moreno Mckenna who will be doing surgery prob this -- consult placed records from [facility]-- obtained by Dr. Das-- reviewed and discussed with her. Continue with meds wound care daily Continue present care Coumadin not started for anticipation of surgery Will follow. Documentation prepared by Vickie Gaspar, acting as a medical device sales consultant for Jessenia Galarza MD.
[2016-12-27 11:02] LABS: CALCIUM 8.4 mg/dL (8.5-10.1); CREATININE 7.2 mg/dL (0.55-1.02); PHOSPHOROUS 6.1 mg/dL (2.5-4.9)
--- NOTE | 2016-12-27 11:02 | PN ---
Progress Note (short form) - Note Progress Note: d/w Dr Galarza d/w patient currently on HD unable to examine her patient has disc of mammorgram and sonogram with her reports in chart- no malignancy noted pathology noted-necrotic tissue with neutrophilic exudate and fat necrosis with focal acute inflammation esrd/hd Diabetes chronic breast ulcer I have suggested to patient that she have a breast surgeon see her elevated esr/crp are suggestive of an inflammatory process she will d/w her PMD
[2016-12-27] MEDS: HEPARIN - 25,000 UNIT in SODIUM CHLORIDE 495 ML IV SCH (13:00)
--- NOTE | 2016-12-27 13:00 | PN ---
Progress Note (short form) - Note Progress Note: Renal Follow up for ESRD on HD Pt seen and examined during dialysis BP stable Goal UF Is 2.5L access with good function pt without any acute complaints Vital Signs Temperature 98 F 12/27/16 10:00 Pulse Rate 84 12/27/16 12:45 Respiratory Rate 18 12/27/16 12:45 Blood Pressure 152/77 12/27/16 12:45 O2 Sat by Pulse Oximetry (%) 96 12/27/16 09:00 Gen: NAD, awake and alert CVS: RRR, No M/R Lungs: CTA, no rales or wheeze Abd:soft NT/ND Ext: B/L LE amputations Breast: Dressing in place CBC, BMP 12/27/16 06:00 12/27/16 09:40 Laboratory Tests 12/27/16 09:40 Calcium 8.4 L Phosphorus 6.1 H D Current Medications Alprazolam (Xanax -) 0.25 mg PO Q12H PRN Last Admin: 12/24/16 21:14 Dose: 0.25 mg Aspirin (Ecotrin -) 81 mg PO DAILY [facility] Last Admin: 12/26/16 10:18 Dose: 81 mg Calamine (Calamine 8% Topical Lotion -) 1 applic TP QID PRN PRN Reason: FOR ITCHING Calcium Acetate (Phoslo -) 667 mg PO TIDCM [facility] Last Admin: 12/27/16 08:12 Dose: 667 mg Diphenhydramine HCl (Benadryl -) 25 mg PO Q6H PRN PRN Reason: FOR ITCHING Last Admin: 12/26/16 21:48 Dose: 25 mg Heparin Sodium (Porcine) (Heparin -) 1,000 unit IVPUSH PRN PRN PRN Reason: Heparin Last Admin: 12/26/16 10:43 Dose: 1,000 unit Heparin Sodium (Porcine) (Heparin -) 5,000 unit IVPUSH PRN PRN PRN Reason: Heparin Last Admin: 12/24/16 21:14 Dose: 5,000 unit Heparin Sodium (Porcine) 25, (000 unit/ Sodium Chloride) 500 mls @ 20 mls/hr IV TITR YOAN; 1,000 UNIT/HR PRN Reason: Protocol Last Titration: 12/26/16 20:14 Dose: 1,500 unit/hr Insulin Aspart (Novolog Vial Sliding Scale -) 1 vial SQ ACHS [facility] PRN Reason: Protocol Last Admin: 12/27/16 12:30 Dose: Not Given Insulin Detemir (Levemir Vial) 20 units SQ BIDI [facility] Last Admin: 12/27/16 06:02 Dose: Not Given Levothyroxine Sodium (Synthroid -) 200 mcg PO AM [facility] Last Admin: 12/27/16 05:59 Dose: 200 mcg Metoprolol Succinate (Toprol Xl -) 12.5 mg PO DAILY [facility] Last Admin: 12/26/16 10:19 Dose: 12.5 mg Pantoprazole Sodium (Protonix -) 40 mg PO DAILY [facility] Last Admin: 12/26/16 10:18 Dose: 40 mg Polyethylene Glycol (Miralax (For Daily Use) -) 17 gm PO DAILY [facility] Last Admin: 12/26/16 10:42 Dose: 17 gm Senna (Senna -) 2 tab PO HS PRN PRN Reason: CONSTIPATION Last Admin: 12/26/16 21:48 Dose: 2 tab Simethicone (Mylicon -) 80 mg PO QID PRN PRN Reason: GAS Sodium Hypochlorite (Dakin's Solution 0.5% (Full Strength) -) 1 applic TP BID [facility] Last Admin: 12/26/16 21:49 Dose: 1 applic Tramadol HCl (Ultram -) 25 mg PO Q6H PRN PRN Reason: PAIN Last Admin: 12/26/16 21:48 Dose: 25 mg A/P 71 year old woman with PMhx of ESRD on HD (MWF), CAD s/p PCI and stenting, DM Type 2 on insulin, PVD s/p Multiple amputations, Multiple failed dialysis accesses s/p recent HERO graft infection presents after being found to have new onset Afib by Cardiology. #Breast Wound local wound care planned debridement for not currently on Abx #New onset Afib on Heparin gtt Anticoagulation as per Cardiology Rate is controlled #ESRD on HD pt is tolerating dialysis well goal UF is 2.5L access functioning well #Renal Osteodystrophy Continue calcium acetate Trend Phos levels Thank you Will follow Wan Cruz DO
[2016-12-27] MEDS ORDERED: HEPARIN INFUSION - 500 ML IVPB ONE (13:35)
[2016-12-27] MEDS ORDERED: PT OWN MED DRAWER 7, Y5N ONE ×2 (13:56→15:11)
[2016-12-27] MEDS: ASPIRIN COATED 81 MG TABLET.EC PO SCH (14:03)
[2016-12-27] MEDS: METOPROLOL SUCCINATE 25 MG TAB.SR.24H (FP) PO SCH (14:03)
[2016-12-27] MEDS: PANTOPRAZOLE 40 MG TABLET (FP) PO SCH (14:03)
[2016-12-27] MEDS: SODIUM HYPOCHLORITE 0.5% 473 ML- BULK BOTTLE TP SCH ×2 (14:05→23:15)
[2016-12-27] MEDS: POLYETHYLENE GLYCOL 3350 119 GM BTL PO SCH (14:05)
--- NOTE | 2016-12-27 14:59 | PN ---
Progress Note, Physician Chief Complaint: Events noted Being dialyzed History of Present Illness: Patient was seen and examined. Awake and alert. Chart was reviewed Denies chest pain, SOB or palpitation Surgery tentatively on - Current Medication List Current Medications: Active Medications Alprazolam (Xanax -) 0.25 mg PO Q12H PRN Last Admin: 12/24/16 21:14 Dose: 0.25 mg Aspirin (Ecotrin -) 81 mg PO DAILY [facility] Last Admin: 12/27/16 14:03 Dose: 81 mg Calamine (Calamine 8% Topical Lotion -) 1 applic TP QID PRN PRN Reason: FOR ITCHING Calcium Acetate (Phoslo -) 667 mg PO TIDCM [facility] Last Admin: 12/27/16 13:17 Dose: Not Given Diphenhydramine HCl (Benadryl -) 25 mg PO Q6H PRN PRN Reason: FOR ITCHING Last Admin: 12/26/16 21:48 Dose: 25 mg Heparin Sodium (Porcine) (Heparin -) 1,000 unit IVPUSH PRN PRN PRN Reason: Heparin Last Admin: 12/26/16 10:43 Dose: 1,000 unit Heparin Sodium (Porcine) (Heparin -) 5,000 unit IVPUSH PRN PRN PRN Reason: Heparin Last Admin: 12/24/16 21:14 Dose: 5,000 unit Heparin Sodium (Porcine) 25, (000 unit/ Sodium Chloride) 500 mls @ 20 mls/hr IV TITR [facility]OAN; 1,000 UNIT/HR PRN Reason: Protocol Last Titration: 12/26/16 20:14 Dose: 1,500 unit/hr Insulin Aspart (Novolog Vial Sliding Scale -) 1 vial SQ ACHS [facility] PRN Reason: Protocol Last Admin: 12/27/16 12:30 Dose: Not Given Insulin Detemir (Levemir Vial) 20 units SQ BIDI [facility] Last Admin: 12/27/16 06:02 Dose: Not Given Levothyroxine Sodium (Synthroid -) 200 mcg PO AM [facility] Last Admin: 12/27/16 05:59 Dose: 200 mcg Metoprolol Succinate (Toprol Xl -) 12.5 mg PO DAILY [facility] Last Admin: 12/27/16 14:03 Dose: 12.5 mg Pantoprazole Sodium (Protonix -) 40 mg PO DAILY [facility] Last Admin: 12/27/16 14:03 Dose: 40 mg Polyethylene Glycol (Miralax (For Daily Use) -) 17 gm PO DAILY [facility] Last Admin: 12/27/16 14:05 Dose: 17 gm Senna (Senna -) 2 tab PO HS PRN PRN Reason: CONSTIPATION Last Admin: 12/26/16 21:48 Dose: 2 tab Simethicone (Mylicon -) 80 mg PO QID PRN PRN Reason: GAS Sodium Hypochlorite (Dakin's Solution 0.5% (Full Strength) -) 1 applic TP BID [facility] Last Admin: 12/27/16 14:05 Dose: 1 applic Tramadol HCl (Ultram -) 25 mg PO Q6H PRN PRN Reason: PAIN Last Admin: 12/26/16 21:48 Dose: 25 mg - Objective Vital Signs: Vital Signs Temperature 98.1 F 12/27/16 13:44 Pulse Rate 84 12/27/16 12:45 Respiratory Rate 20 12/27/16 13:44 Blood Pressure 134/89 12/27/16 13:44 O2 Sat by Pulse Oximetry (%) 96 12/27/16 09:00 Neck: Yes: Supple Cardiovascular: Yes: Regular Rate and Rhythm, S1, S2 Respiratory: Yes: CTA Bilaterally Gastrointestinal: Yes: Normal Bowel Sounds, Soft. No: Tenderness Extremities: Yes: Amputation (Right AKA and left TMA) Edema: No Additional Findings/Remarks: - Review of Systems Cardiovascular: As noted above Respiratory: denies: Cough or Sputum Production Gastrointestinal: denies: Nausea, Vomiting, Diarrhea, Constipation or Abdominal Pain Musculoskeletal: No symptoms reported Neurological: No symptoms reported Labs: CBC, BMP 12/27/16 06:00 12/27/16 09:40 Problem List - Problems (1) Anemia Code(s): D64.9 - ANEMIA, UNSPECIFIED Qualifiers: Other causes of anemia: chronic disease, kidney (2) Breast mass, left Code(s): N63 - UNSPECIFIED LUMP IN BREAST (3) Diabetes Code(s): E11.9 - TYPE 2 DIABETES MELLITUS WITHOUT COMPLICATIONS Qualifiers: Diabetes mellitus type: type 1 Diabetes mellitus complication status: with circulatory complication Diabetes mellitus complication detail: with other circulatory complications Qualified Code(s): E10.59 - Type 1 diabetes mellitus with other circulatory complications (4) Dialysis AV fistula infection Code(s): T82.7XXA - INFECT/INFLM REACT D/T OTH CARDI/VASC DEV/IMPLNT/GRFT, INIT Qualifiers: Encounter type: initial encounter Qualified Code(s): T82.7XXA - Infection and inflammatory reaction due to other cardiac and vascular devices, implants and grafts, initial encounter (5) ESRD on hemodialysis Code(s): N18.6 - END STAGE RENAL DISEASE Z99.2 - DEPENDENCE ON RENAL DIALYSIS (6) Foot amputation status Code(s): Z89.439 - ACQUIRED ABSENCE OF UNSPECIFIED FOOT Qualifiers: Laterality: right Qualified Code(s): Z89.431 - Acquired absence of right foot (7) Hypothyroidism Code(s): E03.9 - HYPOTHYROIDISM, UNSPECIFIED Qualifiers: Hypothyroidism type: unspecified Qualified Code(s): E03.9 - Hypothyroidism, unspecified (8) Pre-operative cardiovascular examination Code(s): Z01.810 - ENCOUNTER FOR PREPROCEDURAL CARDIOVASCULAR EXAMINATION (9) Status post transmetatarsal amputation of left foot Code(s): Z89.432 - ACQUIRED ABSENCE OF LEFT FOOT (10) HTN (hypertension) Code(s): I10 - ESSENTIAL (PRIMARY) HYPERTENSION Qualifiers: Hypertension type: essential hypertension Qualified Code(s): I10 - Essential (primary) hypertension (11) Hypercholesterolemia Code(s): E78.00 - PURE HYPERCHOLESTEROLEMIA, UNSPECIFIED (12) Atrial fibrillation Code(s): I48.91 - UNSPECIFIED ATRIAL FIBRILLATION Qualifiers: Atrial fibrillation type: unspecified Qualified Code(s): I48.91 - Unspecified atrial fibrillation (13) CAD (coronary artery disease) Code(s): I25.10 - ATHSCL HEART DISEASE OF [place] CORONARY ARTERY W/O ANG PCTRS Qualifiers: Coronary Disease-Associated Artery/Lesion type: [place] artery [place] vs. transplanted heart: [place] heart Associated angina: without angina Qualified Code(s): I25.10 - Atherosclerotic heart disease of [place] coronary artery without angina pectoris (14) History of percutaneous coronary intervention Code(s): Z98.890 - OTHER SPECIFIED POSTPROCEDURAL STATES Assessment/Plan 1. New onset atrial fibrillation rate controlled 2. CAD s/p multivessel PCI, angina pectoris 3. PVD s/p right AKA and left TMA 4. LV diastolic dysfunction 5. ESRD on HD - via permacath 6. Infected AVG 7. Insulin requiring diabetes mellitus 8. HTN/HCVD 9. Hypercholesterolemia 10. Hypothyroidism PLAN: 1. Heparin drip 2. Eventually will need to initiate Coumadin with INR 2.0 - 3.0, but will wait until surgical input from Dr. Mckenna regarding timing of surgery (breast wound debridement) Not an ideal candidate for NOAC in view of ESRD 3. Plavix stopped last week. ASA will need to be stopped also 4. Continue Metoprolol 5. Continue remainder of medication 6. HD as per protocol 7. No absolute contraindication in regards to debridement in view of absence of ischemic symptoms, decompensated congestive heart failure or malignant arrhythmia. Further plans are to follow Ernie Polanco MD
[2016-12-27] MEDS: traMADol HCL 50 MG TABLET PO PRN (16:12)
[2016-12-27] MEDS: SENNOSIDES 8.6MG TABLET (FP) PO PRN (22:13)
[2016-12-27] MEDS ORDERED: MINERAL OIL ENEMA 133 ML ENEMA PR ONE (23:00)
[2016-12-28] MEDS: INSULIN SLIDING SCALE (NOVOLOG) 1 VIAL SQ SCH ×4 (06:16→21:59)
[2016-12-28] MEDS: INSULIN DETEMIR 100 UNITS/ML MDV SQ SCH ×2 (06:16→18:48)
[2016-12-28] MEDS: LEVOTHYROXINE NA 100 MCG TABLET (FP) PO SCH (06:16)
[2016-12-28 07:29] LABS: MCH 29.2 pg (25.7-33.7); MCHC 32.3 g/dl (32.0-36.0); MEAN CELL VOLUME 90.1 fl (80-96); MEAN PLT VOLUME 7.8 fl (7.5-11.1); PLATELET COUNT 347 K/MM3 (134-434); RDW 16.7 % (11.6-15.6); WHITE BLOOD COUNT 8.5 K/mm3 (4.0-10.0)
[2016-12-28] MEDS: CALCIUM ACETATE 667 MG CAPSULE (FP) PO SCH ×3 (08:06→18:06)
--- NOTE | 2016-12-28 08:17 | PN ---
Progress Note (short form) - Note Progress Note: pt seen/ examined comfortable no cp/ sob c/c-- constipation Vital Signs Temp 98.8 F 12/28/16 05:49 Pulse 78 12/28/16 05:49 Resp 20 12/28/16 05:49 BP 122/68 12/28/16 05:49 Pulse Ox 96 12/27/16 21:00 Intake & Output 12/27/16 12/27/16 12/28/16 11:59 23:59 11:59 Intake Total 340 150 324 Balance 340 150 324 Weight 207 lb Intake: IVPB 340 324 Oral 150 Other: Voiding Method Bedpan Bedpan Weight Measurement Method Patient Lift Scale Active Medications Alprazolam (Xanax -) 0.25 mg PO Q12H PRN Last Admin: 12/24/16 21:14 Dose: 0.25 mg Aspirin (Ecotrin -) 81 mg PO DAILY [facility] Last Admin: 12/27/16 14:03 Dose: 81 mg Calamine (Calamine 8% Topical Lotion -) 1 applic TP QID PRN PRN Reason: FOR ITCHING Calcium Acetate (Phoslo -) 667 mg PO TIDCM [facility] Last Admin: 12/28/16 08:06 Dose: 667 mg Diphenhydramine HCl (Benadryl -) 25 mg PO Q6H PRN PRN Reason: FOR ITCHING Last Admin: 12/26/16 21:48 Dose: 25 mg Heparin Sodium (Porcine) (Heparin -) 1,000 unit IVPUSH PRN PRN PRN Reason: Heparin Last Admin: 12/26/16 10:43 Dose: 1,000 unit Heparin Sodium (Porcine) (Heparin -) 5,000 unit IVPUSH PRN PRN PRN Reason: Heparin Last Admin: 12/24/16 21:14 Dose: 5,000 unit Heparin Sodium (Porcine) 25, (000 unit/ Sodium Chloride) 500 mls @ 20 mls/hr IV TITR [facility]; 1,000 UNIT/HR PRN Reason: Protocol Last Admin: 12/27/16 13:00 Dose: 27 mls/hr Insulin Aspart (Novolog Vial Sliding Scale -) 1 vial SQ ACHS [facility] PRN Reason: Protocol Last Admin: 12/28/16 06:16 Dose: Not Given Insulin Detemir (Levemir Vial) 20 units SQ BIDI [facility] Last Admin: 12/28/16 06:16 Dose: Not Given Levothyroxine Sodium (Synthroid -) 200 mcg PO AM [facility] Last Admin: 12/28/16 06:16 Dose: 200 mcg Metoprolol Succinate (Toprol Xl -) 12.5 mg PO DAILY [facility] Last Admin: 12/27/16 14:03 Dose: 12.5 mg Pantoprazole Sodium (Protonix -) 40 mg PO DAILY [facility] Last Admin: 12/27/16 14:03 Dose: 40 mg Polyethylene Glycol (Miralax (For Daily Use) -) 17 gm PO DAILY [facility] Last Admin: 12/27/16 14:05 Dose: 17 gm Senna (Senna -) 2 tab PO HS PRN PRN Reason: CONSTIPATION Last Admin: 12/27/16 22:13 Dose: 2 tab Simethicone (Mylicon -) 80 mg PO QID PRN PRN Reason: GAS Sodium Hypochlorite (Dakin's Solution 0.5% (Full Strength) -) 1 applic TP BID [facility] Last Admin: 12/27/16 23:15 Dose: 1 applic Tramadol HCl (Ultram -) 25 mg PO Q6H PRN PRN Reason: PAIN Last Admin: 12/27/16 16:12 Dose: 25 mg CBC, BMP 12/28/16 05:35 12/27/16 09:40 Physical Exam Constitutional: Yes: No Distress Cardiovascular: Yes: Pulse Irregular Respiratory: Yes: CTA Bilaterally Gastrointestinal: Yes: Normal Bowel Sounds, Soft. No: Distention, Tenderness Breast(s): Yes: Left (ulcer) Edema: No Problem List - Problems (1) Atrial fibrillation Code(s): I48.91 - UNSPECIFIED ATRIAL FIBRILLATION Qualifiers: Atrial fibrillation type: unspecified Qualified Code(s): I48.91 - Unspecified atrial fibrillation (2) Breast abscess Code(s): N61.1 - ABSCESS OF THE BREAST AND NIPPLE (3) CAD (coronary artery disease) Code(s): I25.10 - ATHSCL HEART DISEASE OF [place] CORONARY ARTERY W/O ANG PCTRS Qualifiers: Coronary Disease-Associated Artery/Lesion type: [place] artery [place] vs. transplanted heart: [place] heart Associated angina: without angina Qualified Code(s): I25.10 - Atherosclerotic heart disease of [place] coronary artery without angina pectoris (4) ESRD on hemodialysis Code(s): N18.6 - END STAGE RENAL DISEASE Z99.2 - DEPENDENCE ON RENAL DIALYSIS (5) HTN (hypertension) Code(s): I10 - ESSENTIAL (PRIMARY) HYPERTENSION Qualifiers: Hypertension type: essential hypertension Qualified Code(s): I10 - Essential (primary) hypertension Assessment and Plan On Heparin infusion chronic breast ulcer-- need to see breast surgeon - but pt says she is waiting for her surgeon to come today - Dr. Mckenna- dont want to see anybody else Plastic surgeon is Dr Moreno Mckenna who will be doing surgery prob this -- Continue with meds wound care daily Continue present care Coumadin not started for anticipation of surgery monitor bgm add dulcolax
[2016-12-28] MEDS ORDERED: BISACODYL 5 MG TABLET.DR (FP) PO PRN (08:35)
--- NOTE | 2016-12-28 08:42 | PN ---
Progress Note (short form) - Note Progress Note: Chief Complaint: Events noted, notes reviewed, denies any chest pain or dyspnea , denies any palpitations, remains in atrial fibrillation rate controlled History of Present Illness: Seen and examined on telemetry. Events noted, notes reviewed, denies any chest pain or dyspnea, denies any palpitations, remains in atrial fibrillation rate controlled As outlined since patient is tentatively scheduled for the OR this coming for breast wound debridment, recommend continuation of Heparin therapy and transitioning to Coumadin therapy post completion of the above noted procedure Not appropriate to utilize NOAC's with ESRD-HD dependent patients (small series with Francisca) Medications: Current Medications Alprazolam (Xanax -) 0.25 mg PO Q12H PRN Last Admin: 12/24/16 21:14 Dose: 0.25 mg Aspirin (Ecotrin -) 81 mg PO DAILY [facility] Last Admin: 12/27/16 14:03 Dose: 81 mg Bisacodyl (Dulcolax -) 5 mg PO DAILY PRN PRN Reason: CONSTIPATION Calamine (Calamine 8% Topical Lotion -) 1 applic TP QID PRN PRN Reason: FOR ITCHING Calcium Acetate (Phoslo -) 667 mg PO TIDCM [facility] Last Admin: 12/28/16 08:06 Dose: 667 mg Diphenhydramine HCl (Benadryl -) 25 mg PO Q6H PRN PRN Reason: FOR ITCHING Last Admin: 12/26/16 21:48 Dose: 25 mg Heparin Sodium (Porcine) (Heparin -) 1,000 unit IVPUSH PRN PRN PRN Reason: Heparin Last Admin: 12/26/16 10:43 Dose: 1,000 unit Heparin Sodium (Porcine) (Heparin -) 5,000 unit IVPUSH PRN PRN PRN Reason: Heparin Last Admin: 12/24/16 21:14 Dose: 5,000 unit Heparin Sodium (Porcine) 25, (000 unit/ Sodium Chloride) 500 mls @ 20 mls/hr IV TITR YOAN; 1,000 UNIT/HR PRN Reason: Protocol Last Admin: 12/27/16 13:00 Dose: 27 mls/hr Insulin Aspart (Novolog Vial Sliding Scale -) 1 vial SQ ACHS [facility] PRN Reason: Protocol Last Admin: 12/28/16 06:16 Dose: Not Given Insulin Detemir (Levemir Vial) 20 units SQ BIDI [facility] Last Admin: 12/28/16 06:16 Dose: Not Given Levothyroxine Sodium (Synthroid -) 200 mcg PO AM [facility] Last Admin: 12/28/16 06:16 Dose: 200 mcg Metoprolol Succinate (Toprol Xl -) 12.5 mg PO DAILY [facility] Last Admin: 12/27/16 14:03 Dose: 12.5 mg Pantoprazole Sodium (Protonix -) 40 mg PO DAILY [facility] Last Admin: 12/27/16 14:03 Dose: 40 mg Polyethylene Glycol (Miralax (For Daily Use) -) 17 gm PO DAILY [facility] Last Admin: 12/27/16 14:05 Dose: 17 gm Senna (Senna -) 2 tab PO HS PRN PRN Reason: CONSTIPATION Last Admin: 12/27/16 22:13 Dose: 2 tab Simethicone (Mylicon -) 80 mg PO QID PRN PRN Reason: GAS Sodium Hypochlorite (Dakin's Solution 0.5% (Full Strength) -) 1 applic TP BID [facility] Last Admin: 12/27/16 23:15 Dose: 1 applic Tramadol HCl (Ultram -) 25 mg PO Q6H PRN PRN Reason: PAIN Last Admin: 12/27/16 16:12 Dose: 25 mg Review of Systems - Review of Systems Cardiovascular: As noted above Respiratory: denies: Cough or Sputum Production Gastrointestinal: denies: Nausea, Vomiting, Diarrhea, Constipation or Abdominal Pain Musculoskeletal: No symptoms reported Neurological: No symptoms reported Vital Signs: Last Vital Signs Temp Pulse Resp BP Pulse Ox 98.8 F 78 20 122/68 96 12/28/16 05:49 12/28/16 05:49 12/28/16 05:49 12/28/16 05:49 12/27/16 21:00 Neck: Supple Negative JVD No Bruit Respiratory: Clear to A&P Bilaterally Cardiovascular: S1 S2 Irregularly Irregular Gastrointestinal: Soft Benign Normal Bowel Sounds Extremities: Amputation (Right AKA and left TMA) Labs: CBC, BMP 12/28/16 05:35 12/27/16 09:40 INR, PTT INR 1.20 (0.82-1.09) H 12/24/16 06:07 Assessment/Plan ASSESSMENT: 1. New onset paroxysmal atrial fibrillation rate controlled, on Heparin [id number] score of 5 2. CAD post multi-vessel PCI, angina pectoris 3. LV diastolic dysfunction with chronic class I NYHA classifcation LV failure, compensated 4. HTN 5. IDDM 6. Hypercholesterolemia 7. Hypothyroidism 8. PAD post right AKA and left TMA 9. ESRD on HD, infected AV graft 10. Breast carcinoma, for wound debridment as outlined above PLAN: 1. Heparin drip as outlined above and transition to Coumadin once the procedure is completed 2. As outlined recommend continuation of ASA therapy lucy-operatively, unless it is absolutely contraindicated 3. Continue Lopressor 4. HD as per renal service 5. There are no absolute contraindication in proceeding with planned surgical intervention considering that there is no clinical evidence of ACS and/or de- compensated congestive heart failure and/or malignant sustained arrhythmia Reina Crowe MD
[2016-12-28] MEDS: ASPIRIN COATED 81 MG TABLET.EC PO SCH (09:17)
[2016-12-28] MEDS: SODIUM HYPOCHLORITE 0.5% 473 ML- BULK BOTTLE TP SCH ×2 (09:17→21:59)
[2016-12-28] MEDS: PANTOPRAZOLE 40 MG TABLET (FP) PO SCH (09:17)
[2016-12-28] MEDS: METOPROLOL SUCCINATE 25 MG TAB.SR.24H (FP) PO SCH (09:17)
[2016-12-28] MEDS: POLYETHYLENE GLYCOL 3350 119 GM BTL PO SCH (09:18)
--- NOTE | 2016-12-28 11:59 | PN ---
Progress Note (short form) - Note Progress Note: Renal Follow up for ESRD on HD Pt seen and examined at the bedside no acute complaints no sob or chest pain Vital Signs Temperature 98.4 F 12/28/16 10:00 Pulse Rate 98 H 12/28/16 10:00 Respiratory Rate 20 12/28/16 10:00 Blood Pressure 156/85 12/28/16 10:00 O2 Sat by Pulse Oximetry (%) 96 12/27/16 21:00 Gen: NAD, awake and alert CVS: RRR, No M/R Lungs: CTA, no rales or wheeze Abd:soft NT/ND Ext: B/L LE amputations Breast: Dressing in place CBC, BMP 12/28/16 05:35 12/27/16 09:40 Current Medications Alprazolam (Xanax -) 0.25 mg PO Q12H PRN Last Admin: 12/24/16 21:14 Dose: 0.25 mg Aspirin (Ecotrin -) 81 mg PO DAILY [facility] Last Admin: 12/28/16 09:17 Dose: 81 mg Bisacodyl (Dulcolax -) 5 mg PO DAILY PRN PRN Reason: CONSTIPATION Last Admin: 12/28/16 09:18 Dose: 5 mg Calamine (Calamine 8% Topical Lotion -) 1 applic TP QID PRN PRN Reason: FOR ITCHING Calcium Acetate (Phoslo -) 667 mg PO TIDCM [facility] Last Admin: 12/28/16 08:06 Dose: 667 mg Diphenhydramine HCl (Benadryl -) 25 mg PO Q6H PRN PRN Reason: FOR ITCHING Last Admin: 12/26/16 21:48 Dose: 25 mg Heparin Sodium (Porcine) (Heparin -) 1,000 unit IVPUSH PRN PRN PRN Reason: Heparin Last Admin: 12/26/16 10:43 Dose: 1,000 unit Heparin Sodium (Porcine) (Heparin -) 5,000 unit IVPUSH PRN PRN PRN Reason: Heparin Last Admin: 12/24/16 21:14 Dose: 5,000 unit Heparin Sodium (Porcine) 25, (000 unit/ Sodium Chloride) 500 mls @ 20 mls/hr IV TITR [facility]; 1,000 UNIT/HR PRN Reason: Protocol Last Admin: 12/27/16 13:00 Dose: 27 mls/hr Insulin Aspart (Novolog Vial Sliding Scale -) 1 vial SQ ACHS [facility] PRN Reason: Protocol Last Admin: 12/28/16 06:16 Dose: Not Given Insulin Detemir (Levemir Vial) 20 units SQ BIDI [facility] Last Admin: 12/28/16 06:16 Dose: Not Given Levothyroxine Sodium (Synthroid -) 200 mcg PO AM [facility] Last Admin: 12/28/16 06:16 Dose: 200 mcg Metoprolol Succinate (Toprol Xl -) 12.5 mg PO DAILY [facility] Last Admin: 12/28/16 09:17 Dose: 12.5 mg Pantoprazole Sodium (Protonix -) 40 mg PO DAILY [facility] Last Admin: 12/28/16 09:17 Dose: 40 mg Polyethylene Glycol (Miralax (For Daily Use) -) 17 gm PO DAILY [facility] Last Admin: 12/28/16 09:18 Dose: 17 gm Senna (Senna -) 2 tab PO HS PRN PRN Reason: CONSTIPATION Last Admin: 12/27/16 22:13 Dose: 2 tab Simethicone (Mylicon -) 80 mg PO QID PRN PRN Reason: GAS Sodium Hypochlorite (Dakin's Solution 0.5% (Full Strength) -) 1 applic TP BID [facility] Last Admin: 12/28/16 09:17 Dose: 1 applic Tramadol HCl (Ultram -) 25 mg PO Q6H PRN PRN Reason: PAIN Last Admin: 12/27/16 16:12 Dose: 25 mg A/P 71 year old woman with PMhx of ESRD on HD (MWF), CAD s/p PCI and stenting, DM Type 2 on insulin, PVD s/p Multiple amputations, Multiple failed dialysis accesses s/p recent HERO graft infection presents after being found to have new onset Afib by Cardiology. #Breast Wound To have debridement on Local wound care completed course of Abx prior to admission ID following Sonogram and Mammogram negative for Mass/Malignancy #ESRD on HD s/p dialysis yesterday no indication for ACID CONDITIONER today Will maintain on MWF schedule as inpatient dose all meds for intermittent HD #New onset Afib on Heparin Gtt Cardiology following #CAD ASA continued as per cardiology Wan Cruz DO
[2016-12-28] MEDS: HEPARIN - 25,000 UNIT in SODIUM CHLORIDE 495 ML IV SCH (12:24)
[2016-12-28] MEDS ORDERED: PT OWN MED DRAWER 7, Y5N ONE (14:58)
[2016-12-28] MEDS ORDERED: BISACODYL 10 MG SUPP.RECT RC PRN (21:04)
[2016-12-28] MEDS: ACETAMINOPHEN 325 MG TABLET (FP) PO PRN (21:55)
[2016-12-28] MEDS: SENNOSIDES 8.6MG TABLET (FP) PO PRN (21:55)
[2016-12-28] MEDS: diphenhydrAMINE HCL 25 MG CAPSULE (FP) PO PRN (21:55)
[2016-12-29] MEDS: INSULIN SLIDING SCALE (NOVOLOG) 1 VIAL SQ SCH ×4 (06:40→21:57)
[2016-12-29] MEDS: INSULIN DETEMIR 100 UNITS/ML MDV SQ SCH ×2 (06:43→16:50)
[2016-12-29] MEDS: LEVOTHYROXINE NA 100 MCG TABLET (FP) PO SCH (06:43)
[2016-12-29 08:02] LABS: MCH 28.9 pg (25.7-33.7); MCHC 31.8 g/dl (32.0-36.0); MEAN CELL VOLUME 90.8 fl (80-96); MEAN PLT VOLUME 7.8 fl (7.5-11.1); PLATELET COUNT 332 K/MM3 (134-434); RDW 16.5 % (11.6-15.6); WHITE BLOOD COUNT 6.6 K/mm3 (4.0-10.0)
[2016-12-29] MEDS: CALCIUM ACETATE 667 MG CAPSULE (FP) PO SCH ×3 (08:06→16:50)
--- NOTE | 2016-12-29 08:10 | PN ---
Progress Note, Physician Chief Complaint: Events noted Not in distress History of Present Illness: Patient was seen and examined. Awake and alert. Chart was reviewed Denies chest pain, SOB or palpitation Surgery tentatively on - Current Medication List Current Medications: Active Medications Acetaminophen (Tylenol -) 650 mg PO Q6H PRN PRN Reason: PAIN Last Admin: 12/28/16 21:55 Dose: 650 mg Aspirin (Ecotrin -) 81 mg PO DAILY YOAN Last Admin: 12/28/16 09:17 Dose: 81 mg Bisacodyl (Dulcolax -) 5 mg PO DAILY PRN PRN Reason: CONSTIPATION Last Admin: 12/28/16 09:18 Dose: 5 mg Bisacodyl (Dulcolax Suppository -) 10 mg RC DAILY PRN PRN Reason: CONSTIPATION Calamine (Calamine 8% Topical Lotion -) 1 applic TP QID PRN PRN Reason: FOR ITCHING Calcium Acetate (Phoslo -) 667 mg PO TIDCM [facility]OAN Last Admin: 12/28/16 18:06 Dose: 667 mg Diphenhydramine HCl (Benadryl -) 25 mg PO Q6H PRN PRN Reason: FOR ITCHING Last Admin: 12/28/16 21:55 Dose: 25 mg Heparin Sodium (Porcine) (Heparin -) 1,000 unit IVPUSH PRN PRN PRN Reason: Heparin Last Admin: 12/26/16 10:43 Dose: 1,000 unit Heparin Sodium (Porcine) (Heparin -) 5,000 unit IVPUSH PRN PRN PRN Reason: Heparin Last Admin: 12/24/16 21:14 Dose: 5,000 unit Heparin Sodium (Porcine) 25, (000 unit/ Sodium Chloride) 500 mls @ 20 mls/hr IV TITR YOAN; 1,000 UNIT/HR PRN Reason: Protocol Last Admin: 12/28/16 12:24 Dose: 25 mls/hr Insulin Aspart (Novolog Vial Sliding Scale -) 1 vial SQ ACHS [facility]OAN PRN Reason: Protocol Last Admin: 12/29/16 06:40 Dose: Not Given Insulin Detemir (Levemir Vial) 20 units SQ BIDI [facility] Last Admin: 12/29/16 06:43 Dose: 20 units Levothyroxine Sodium (Synthroid -) 200 mcg PO AM [facility] Last Admin: 12/29/16 06:43 Dose: 200 mcg Metoprolol Succinate (Toprol Xl -) 12.5 mg PO DAILY [facility] Last Admin: 12/28/16 09:17 Dose: 12.5 mg Pantoprazole Sodium (Protonix -) 40 mg PO DAILY [facility] Last Admin: 12/28/16 09:17 Dose: 40 mg Polyethylene Glycol (Miralax (For Daily Use) -) 17 gm PO DAILY [facility] Last Admin: 12/28/16 09:18 Dose: 17 gm Senna (Senna -) 2 tab PO HS PRN PRN Reason: CONSTIPATION Last Admin: 12/28/16 21:55 Dose: 2 tab Simethicone (Mylicon -) 80 mg PO QID PRN PRN Reason: GAS Sodium Hypochlorite (Dakin's Solution 0.5% (Full Strength) -) 1 applic TP BID [facility] Last Admin: 12/28/16 21:59 Dose: Not Given - Objective Vital Signs: Vital Signs Temperature 98.2 F 12/29/16 06:00 Pulse Rate 76 12/29/16 06:00 Respiratory Rate 18 12/29/16 06:00 Blood Pressure 133/48 12/29/16 06:00 O2 Sat by Pulse Oximetry (%) 92 L 12/28/16 21:00 Neck: Yes: Supple Cardiovascular: Yes: Pulse Irregular, S1, S2. No: Gallop Respiratory: Yes: CTA Bilaterally Gastrointestinal: Yes: Normal Bowel Sounds, Soft. No: Tenderness Extremities: Yes: Amputation (Right AKA and left TMA) Edema: No Additional Findings/Remarks: - Review of Systems Cardiovascular: As noted above Respiratory: denies: Cough or Sputum Production Gastrointestinal: denies: Nausea, Vomiting, Diarrhea, Constipation or Abdominal Pain Musculoskeletal: No symptoms reported Neurological: No symptoms reported Labs: CBC, BMP 12/27/16 09:40 Problem List - Problems (1) Anemia Code(s): D64.9 - ANEMIA, UNSPECIFIED Qualifiers: Anemia type: other cause Other causes of anemia: chronic disease, kidney Qualified Code(s): N18.9 - Chronic kidney disease, unspecified; D63.1 - Anemia in chronic kidney disease (2) Breast mass, left Code(s): N63 - UNSPECIFIED LUMP IN BREAST (3) Diabetes Code(s): E11.9 - TYPE 2 DIABETES MELLITUS WITHOUT COMPLICATIONS Qualifiers: Diabetes mellitus type: type 1 Diabetes mellitus complication status: with circulatory complication Diabetes mellitus complication detail: with other circulatory complications Qualified Code(s): E10.59 - Type 1 diabetes mellitus with other circulatory complications (4) Dialysis AV fistula infection Code(s): T82.7XXA - INFECT/INFLM REACT D/T OTH CARDI/VASC DEV/IMPLNT/GRFT, INIT Qualifiers: Encounter type: initial encounter Qualified Code(s): T82.7XXA - Infection and inflammatory reaction due to other cardiac and vascular devices, implants and grafts, initial encounter (5) ESRD on hemodialysis Code(s): N18.6 - END STAGE RENAL DISEASE Z99.2 - DEPENDENCE ON RENAL DIALYSIS (6) Foot amputation status Code(s): Z89.439 - ACQUIRED ABSENCE OF UNSPECIFIED FOOT Qualifiers: Laterality: right Qualified Code(s): Z89.431 - Acquired absence of right foot (7) Hypothyroidism Code(s): E03.9 - HYPOTHYROIDISM, UNSPECIFIED Qualifiers: Hypothyroidism type: unspecified Qualified Code(s): E03.9 - Hypothyroidism, unspecified (8) Pre-operative cardiovascular examination Code(s): Z01.810 - ENCOUNTER FOR PREPROCEDURAL CARDIOVASCULAR EXAMINATION (9) Status post transmetatarsal amputation of left foot Code(s): Z89.432 - ACQUIRED ABSENCE OF LEFT FOOT (10) HTN (hypertension) Code(s): I10 - ESSENTIAL (PRIMARY) HYPERTENSION Qualifiers: Hypertension type: essential hypertension Qualified Code(s): I10 - Essential (primary) hypertension (11) Hypercholesterolemia Code(s): E78.00 - PURE HYPERCHOLESTEROLEMIA, UNSPECIFIED (12) Atrial fibrillation Code(s): I48.91 - UNSPECIFIED ATRIAL FIBRILLATION Qualifiers: Atrial fibrillation type: unspecified Qualified Code(s): I48.91 - Unspecified atrial fibrillation (13) CAD (coronary artery disease) Code(s): I25.10 - ATHSCL HEART DISEASE OF [place] CORONARY ARTERY W/O ANG PCTRS Qualifiers: Coronary Disease-Associated Artery/Lesion type: [place] artery [place] vs. transplanted heart: [place] heart Associated angina: without angina Qualified Code(s): I25.10 - Atherosclerotic heart disease of [place] coronary artery without angina pectoris (14) History of percutaneous coronary intervention Code(s): Z98.890 - OTHER SPECIFIED POSTPROCEDURAL STATES Assessment/Plan 1. New onset and persistent atrial fibrillation rate controlled 2. CAD s/p multivessel PCI, angina pectoris 3. PVD s/p right AKA and left TMA 4. LV diastolic dysfunction 5. ESRD on HD - via permacath 6. Infected AVG 7. Insulin requiring diabetes mellitus 8. HTN/HCVD 9. Hypercholesterolemia 10. Hypothyroidism PLAN: 1. Heparin drip 2. Eventually will need to initiate Coumadin with INR 2.0 - 3.0, but will wait until surgery (breast wound debridement) scheduled tomorrow. Not an ideal candidate for NOAC in view of ESRD 3. Plavix stopped last week and ASA stopped 4. Continue Metoprolol 5. Continue remainder of medication 6. HD as per protocol 7. No absolute contraindication in regards to debridement in view of absence of ischemic symptoms, decompensated congestive heart failure or malignant arrhythmia. 8. Further rhythm control to follow after adequate anticoagulation Further plans are to follow Ernie Polanco MD
--- NOTE | 2016-12-29 09:09 | PN ---
Progress Note, Physician Chief Complaint: no distress No SOB or chest pain - Current Medication List Current Medications: Active Medications Acetaminophen (Tylenol -) 650 mg PO Q6H PRN PRN Reason: PAIN Last Admin: 12/28/16 21:55 Dose: 650 mg Bisacodyl (Dulcolax -) 5 mg PO DAILY PRN PRN Reason: CONSTIPATION Last Admin: 12/28/16 09:18 Dose: 5 mg Bisacodyl (Dulcolax Suppository -) 10 mg RC DAILY PRN PRN Reason: CONSTIPATION Calamine (Calamine 8% Topical Lotion -) 1 applic TP QID PRN PRN Reason: FOR ITCHING Calcium Acetate (Phoslo -) 667 mg PO TIDCM [facility] Last Admin: 12/29/16 08:06 Dose: 667 mg Diphenhydramine HCl (Benadryl -) 25 mg PO Q6H PRN PRN Reason: FOR ITCHING Last Admin: 12/28/16 21:55 Dose: 25 mg Heparin Sodium (Porcine) (Heparin -) 1,000 unit IVPUSH PRN PRN PRN Reason: Heparin Last Admin: 12/26/16 10:43 Dose: 1,000 unit Heparin Sodium (Porcine) (Heparin -) 5,000 unit IVPUSH PRN PRN PRN Reason: Heparin Last Admin: 12/24/16 21:14 Dose: 5,000 unit Heparin Sodium (Porcine) 25, (000 unit/ Sodium Chloride) 500 mls @ 20 mls/hr IV TITR YOAN; 1,000 UNIT/HR PRN Reason: Protocol Last Admin: 12/28/16 12:24 Dose: 25 mls/hr Insulin Aspart (Novolog Vial Sliding Scale -) 1 vial SQ ACHS [facility] PRN Reason: Protocol Last Admin: 12/29/16 06:40 Dose: Not Given Insulin Detemir (Levemir Vial) 20 units SQ BIDI [facility] Last Admin: 12/29/16 06:43 Dose: 20 units Levothyroxine Sodium (Synthroid -) 200 mcg PO AM [facility] Last Admin: 12/29/16 06:43 Dose: 200 mcg Metoprolol Succinate (Toprol Xl -) 12.5 mg PO DAILY [facility] Last Admin: 12/28/16 09:17 Dose: 12.5 mg Pantoprazole Sodium (Protonix -) 40 mg PO DAILY [facility] Last Admin: 12/28/16 09:17 Dose: 40 mg Polyethylene Glycol (Miralax (For Daily Use) -) 17 gm PO DAILY [facility] Last Admin: 12/28/16 09:18 Dose: 17 gm Senna (Senna -) 2 tab PO HS PRN PRN Reason: CONSTIPATION Last Admin: 12/28/16 21:55 Dose: 2 tab Simethicone (Mylicon -) 80 mg PO QID PRN PRN Reason: GAS Last Admin: 12/29/16 08:49 Dose: 80 mg Sodium Hypochlorite (Dakin's Solution 0.5% (Full Strength) -) 1 applic TP BID [facility] Last Admin: 12/28/16 21:59 Dose: Not Given - Objective Vital Signs: Vital Signs Temperature 98.2 F 12/29/16 06:00 Pulse Rate 76 12/29/16 06:00 Respiratory Rate 18 12/29/16 06:00 Blood Pressure 133/48 12/29/16 06:00 O2 Sat by Pulse Oximetry (%) 92 L 12/28/16 21:00 Constitutional: Yes: No Distress Cardiovascular: Yes: Pulse Irregular Respiratory: Yes: CTA Bilaterally Gastrointestinal: Yes: Normal Bowel Sounds, Soft. No: Distention, Tenderness Breast(s): Yes: Left (wound- purulent discharge) Edema: No Labs: CBC, BMP 12/29/16 05:35 12/27/16 09:40 INR, PTT INR 1.20 (0.82-1.09) H 12/24/16 06:07 Problem List - Problems (1) Atrial fibrillation Code(s): I48.91 - UNSPECIFIED ATRIAL FIBRILLATION Qualifiers: Atrial fibrillation type: unspecified Qualified Code(s): I48.91 - Unspecified atrial fibrillation (2) Breast abscess Code(s): N61.1 - ABSCESS OF THE BREAST AND NIPPLE (3) CAD (coronary artery disease) Code(s): I25.10 - ATHSCL HEART DISEASE OF [place] CORONARY ARTERY W/O ANG PCTRS Qualifiers: Coronary Disease-Associated Artery/Lesion type: [place] artery [place] vs. transplanted heart: [place] heart Associated angina: without angina Qualified Code(s): I25.10 - Atherosclerotic heart disease of [place] coronary artery without angina pectoris (4) ESRD on hemodialysis Code(s): N18.6 - END STAGE RENAL DISEASE Z99.2 - DEPENDENCE ON RENAL DIALYSIS (5) HTN (hypertension) Code(s): I10 - ESSENTIAL (PRIMARY) HYPERTENSION Qualifiers: Hypertension type: essential hypertension Qualified Code(s): I10 - Essential (primary) hypertension Assessment/Plan PLAN On Heparin infusion monitor CBC spoke with DR Mckenna, Plastic Surgeon who will performing surgery tomorrow- confirmed for 10:30AM. Heparin infusion should be discontinued 6 hours prior to surgery. Type and screen continue with meds NPO past midnight Pt is medically cleared to proceed with surgery , Heparin infusion to resumed as per Surgeon
[2016-12-29] MEDS: PANTOPRAZOLE 40 MG TABLET (FP) PO SCH (09:31)
[2016-12-29] MEDS: METOPROLOL SUCCINATE 25 MG TAB.SR.24H (FP) PO SCH (09:31)
[2016-12-29] MEDS: SODIUM HYPOCHLORITE 0.5% 473 ML- BULK BOTTLE TP SCH ×2 (09:32→21:53)
[2016-12-29] MEDS: POLYETHYLENE GLYCOL 3350 119 GM BTL PO SCH (09:32)
[2016-12-29 09:37] LABS: CALCIUM 8.6 mg/dL (8.5-10.1); CREATININE 6.9 mg/dL (0.55-1.02); PHOSPHOROUS 5.1 mg/dL (2.5-4.9)
--- NOTE | 2016-12-29 11:43 | PN ---
Progress Note (short form) - Note Progress Note: Renal Follow up for ESRD on HD Pt seen and examined at the bedside no acute complaints no sob or chest pain no fever or chills for dialysis today Vital Signs Temperature 98.2 F 12/29/16 06:00 Pulse Rate 76 12/29/16 06:00 Respiratory Rate 18 12/29/16 06:00 Blood Pressure 133/48 12/29/16 06:00 O2 Sat by Pulse Oximetry (%) 92 L 12/28/16 21:00 Gen: NAD, awake and alert CVS: RRR, No M/R Lungs: CTA, no rales or wheeze Abd:soft NT/ND Ext: B/L LE amputations Breast: Dressing in place CBC, BMP 12/29/16 05:35 12/29/16 06:00 Laboratory Tests 12/29/16 12/29/16 05:35 06:00 MCV 90.8 Calcium 8.6 Phosphorus 5.1 H Current Medications Acetaminophen (Tylenol -) 650 mg PO Q6H PRN PRN Reason: PAIN Last Admin: 12/28/16 21:55 Dose: 650 mg Bisacodyl (Dulcolax -) 5 mg PO DAILY PRN PRN Reason: CONSTIPATION Last Admin: 12/28/16 09:18 Dose: 5 mg Bisacodyl (Dulcolax Suppository -) 10 mg RC DAILY PRN PRN Reason: CONSTIPATION Calamine (Calamine 8% Topical Lotion -) 1 applic TP QID PRN PRN Reason: FOR ITCHING Calcium Acetate (Phoslo -) 667 mg PO TIDCM [facility] Last Admin: 12/29/16 08:06 Dose: 667 mg Diphenhydramine HCl (Benadryl -) 25 mg PO Q6H PRN PRN Reason: FOR ITCHING Last Admin: 12/28/16 21:55 Dose: 25 mg Heparin Sodium (Porcine) (Heparin -) 1,000 unit IVPUSH PRN PRN PRN Reason: Heparin Last Admin: 12/26/16 10:43 Dose: 1,000 unit Heparin Sodium (Porcine) (Heparin -) 5,000 unit IVPUSH PRN PRN PRN Reason: Heparin Last Admin: 12/24/16 21:14 Dose: 5,000 unit Heparin Sodium (Porcine) 25, (000 unit/ Sodium Chloride) 500 mls @ 20 mls/hr IV TITR YOAN; 1,000 UNIT/HR PRN Reason: Protocol Last Admin: 12/28/16 12:24 Dose: 25 mls/hr Insulin Aspart (Novolog Vial Sliding Scale -) 1 vial SQ ACHS [facility] PRN Reason: Protocol Last Admin: 12/29/16 06:40 Dose: Not Given Insulin Detemir (Levemir Vial) 20 units SQ BIDI [facility] Last Admin: 12/29/16 06:43 Dose: 20 units Levothyroxine Sodium (Synthroid -) 200 mcg PO AM [facility] Last Admin: 12/29/16 06:43 Dose: 200 mcg Metoprolol Succinate (Toprol Xl -) 12.5 mg PO DAILY [facility] Last Admin: 12/29/16 09:31 Dose: 12.5 mg Pantoprazole Sodium (Protonix -) 40 mg PO DAILY [facility] Last Admin: 12/29/16 09:31 Dose: 40 mg Polyethylene Glycol (Miralax (For Daily Use) -) 17 gm PO DAILY [facility] Last Admin: 12/29/16 09:32 Dose: Not Given Senna (Senna -) 2 tab PO HS PRN PRN Reason: CONSTIPATION Last Admin: 12/28/16 21:55 Dose: 2 tab Simethicone (Mylicon -) 80 mg PO QID PRN PRN Reason: GAS Last Admin: 12/29/16 08:49 Dose: 80 mg Sodium Hypochlorite (Dakin's Solution 0.5% (Full Strength) -) 1 applic TP BID [facility] Last Admin: 12/29/16 09:32 Dose: 1 applic A/P 71 year old woman with PMhx of ESRD on HD (MWF), CAD s/p PCI and stenting, DM Type 2 on insulin, PVD s/p Multiple amputations, Multiple failed dialysis accesses s/p recent HERO graft infection presents after being found to have new onset Afib by Cardiology. #Breast Wound for debridement on Local wound care #ESRD on HD HD today with UF as tolerated Continue HD on MWF schedule #New onset Afib on Heparin Gtt Cardiology following #CAD ASA continued as per cardiology Wan Cruz DO
[2016-12-29] MEDS: HEPARIN - 25,000 UNIT in SODIUM CHLORIDE 495 ML IV SCH (15:00)
[2016-12-29] MEDS: ACETAMINOPHEN 325 MG TABLET (FP) PO PRN (20:52)
[2016-12-29] MEDS: diphenhydrAMINE HCL 25 MG CAPSULE (FP) PO PRN (21:57)
--- NOTE | 2016-12-29 23:38 | CONSULT ---
Consult Consult Specialty:: Left breast and left ring finger wounds Referred by:: Alina Goyal Reason for Consultation:: Left breast and left ring finger wounds - History of Present Illness History of Present Illness: Jinny Castillo is a 71 year old female with multiple medical problems (end stage renal disease on 3x/week hemodialysis, coronary artery disease on Plavix, diabetes, peripheral vascular occlusive disease, hypertension, and hypothyroidism) who presents to our office today for evaluation of left breast wounds. She states that these wounds started as small abrasions at some point in 07/2016, but they did not heal and steadily worsened. Dr. Ishaan Wiley of [facility] performed a surgical debridement of these wounds on 11/17/2016 in his office under local anesthetic. However, he only took wound cultures. There were no samples taken for histopathologic analsysis. The patient and her family sought a second opinion from my colleague Dr. Fabien Ram. He has referred this patient to my care. The patient denies any fever or chills. She has had no acute infectious symptoms. 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 No: Hematuria ...: No Infectious Disease: Yes: MRSA Musculoskeletal: Yes: Other (R rotator cuff repair) Endocrine: Yes: Diabetes Mellitus, Hypothyroidism Additional Medical History: Steal syndrome , PVD- s//p surgery. End stage renal disease (hemodialysis 3x per week). Congestive heart failure. Diabetes. Hypertension. Hyperlipidemia. Peripheral vascular occlusive disease. Hypothyroidism. Anemia. Gastroesophageal reflux disease - Past Surgical History Past Surgical History: Yes: Amputation (Rt AKA, left TMA), Hysterectomy ( thyroid surgery), Stent Additional Surgical History: Debridement of left breast wound. Hysterectomy. Thyroid surgery x2. PCI (coronary stents). Multiple fistula surgeries in all extremities for hemodialysis access. Left foot toe amputation. Left foot transmetatarsal level amputation. Right leg below knee amputation. Right lower extremity above knee amputation. Left breast biopsy many years ago, uncertain findings. - Alcohol/Substance Use Hx Alcohol Use: No History of Substance Use: reports: None - Smoking History Smoking history: Never smoked Have you smoked in the past 12 months: No Aproximately how many cigarettes per day: 0 - Social History ADL: Independent History of Recent Travel: No Home Medications - Allergies Allergies/Adverse Reactions: Allergies Allergy/AdvReac Type Severity Reaction Status Date / Time Sulfa (Sulfonamide Allergy Unknown Verified 12/23/16 13:32 Antibiotics) [Sulfa(Sulfonamide Antibiotics)] amoxicillin trihydrate AdvReac Severe Verified 12/23/16 13:32 [From Augmentin] potassium clavulanate AdvReac Severe Verified 12/23/16 13:32 [From Augmentin] tape AdvReac Severe Uncoded 12/23/16 13:32 - Home Medications Home Medications: Ambulatory Orders Aspirin [ASA -] 81 mg PO DAILY #90 tab.chew 08/29/14 Clopidogrel Bisulfate [Plavix -] 75 mg PO DAILY #90 tablet 08/29/14 Cyanocobalamin [Vitamin B12 -] 100 mcg PO DAILY #90 tablet 08/29/14 Pantoprazole Sodium [Protonix -] 40 mg PO DAILY #30 tablet.ec 08/29/14 Calcium Acetate [Phoslo -] 667 mg PO TID 04/06/16 Levothyroxine [Synthroid -] 200 mcg PO DAILY 08/10/16 Metoprolol Succinate [Toprol XL -] 12.5 mg PO DAILY 08/10/16 Alprazolam [Xanax] 0.25 mg PO DAILY PRN #30 tablet MDD 1 08/14/16 Alprazolam [Xanax] 0.25 mg PO BID PRN #60 tablet MDD 2 09/27/16 Calamine 8% Topical Lotion - 1 applic TP QID PRN #1 bottle 09/27/16 Diphenhydramine HCl [Benadryl Capsule -] 25 mg PO Q6H PRN #30 capsule 09/27/16 Sennosides [Senna -] 2 tab PO HS PRN #60 tablet 09/27/16 Simethicone [Mylicon -] 80 mg PO QID PRN #20 tab.chew 09/27/16 Insulin (Levemir) [Levemir Flexpen -] 20 units SQ BID 12/23/16 Tramadol HCl 25 mg PO Q6H PRN 12/23/16 Melatonin 5 mg PO HS 12/25/16 Physical Exam Vital Signs: Vital Signs Temperature 99.6 F 12/29/16 22:34 Pulse Rate 104 H 12/29/16 22:34 Respiratory Rate 20 12/29/16 22:34 Blood Pressure 133/53 12/29/16 22:34 O2 Sat by Pulse Oximetry (%) 93 L 12/29/16 21:00 Labs: CBC, BMP 12/29/16 05:35 12/29/16 06:00 Imaging - Results Other: Pending, Report Reviewed, Image Reviewed, Other (Recent mammogram from 2016 showed no areas suspicious for breat CA) Assessment/Plan ASSESSMENT: 71 year old female with multiple major medical problems including end-stage renal disease on 3x per week dialysis, who presents with a left breast wound that has been present since 07/2016, whose chonicity may be due non -healing factors such as 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 During her preoperative assessment, she was found to be in paroxysmal atrial fibrillation and had been admitted to [facility] for anticoagulation. PLAN: The Cardiology team has cleared the patient for stopping Plavix and aspirin for -7 days prior to surgery and 1 day after surgery. -Labs were reviewed(CBCP with differential, ESR, CRP, calcium panel, comprehensive metabolic panel) My anticipated surgical plan will be a conservative debridement with excision of the remainder of the nipple-areolar complex, as the intervening tissue would likely not be vascularized after debridement of the 2 breast wounds and would be expected to evolve into a necrotic remnant. I would not close the wound due to that the patient has already exhibited a lack of healing potential. I will use a VAC dressing vs. moist to dry dressings. Tissue will be sent for both histopathologic analysis and microbiology. The goal of the surgery is to remove the necrotic burden upon the area so as to allow for the possibility of healing. Furthermore, the surgery will allow for ruling out oncologic etiologies for the wound and also provide a microbiologic profile by which to allow for antibiotic treatment to promote healing. I discussed the risks, benefits, alternatives, expected outcomes, and potential complications associated with this surgery in great detail with the patient, her son, and her daughter at the office visit today. Their questions were answered to their apparent satisfaction.
[2016-12-30] MEDS: INSULIN SLIDING SCALE (NOVOLOG) 1 VIAL SQ SCH ×4 (06:14→22:02)
[2016-12-30] MEDS: INSULIN DETEMIR 100 UNITS/ML MDV SQ SCH ×2 (06:14→17:47)
[2016-12-30] MEDS: LEVOTHYROXINE NA 100 MCG TABLET (FP) PO SCH ×2 (06:14→08:20)
[2016-12-30] MEDS: CALCIUM ACETATE 667 MG CAPSULE (FP) PO SCH ×3 (08:00→17:47)
[2016-12-30 08:02] LABS: MCH 28.9 pg (25.7-33.7); MEAN CELL VOLUME 90.3 fl (80-96); PLATELET COUNT 323 K/MM3 (134-434); RDW 16.5 % (11.6-15.6); WHITE BLOOD COUNT 6.4 K/mm3 (4.0-10.0)
[2016-12-30] MEDS: METOPROLOL SUCCINATE 25 MG TAB.SR.24H (FP) PO SCH ×2 (08:20→10:00)
[2016-12-30] MEDS: PANTOPRAZOLE 40 MG TABLET (FP) PO SCH ×2 (08:21→10:00)
[2016-12-30] MEDS: POLYETHYLENE GLYCOL 3350 119 GM BTL PO SCH (10:00)
[2016-12-30] MEDS: SODIUM HYPOCHLORITE 0.5% 473 ML- BULK BOTTLE TP SCH ×2 (10:00→21:59)
--- NOTE | 2016-12-30 10:22 | PN ---
Progress Note, Physician Chief Complaint: Events noted Not in distress History of Present Illness: Patient was seen and examined. Awake and alert. Chart was reviewed Denies chest pain, SOB or palpitation Surgery tentatively today - Current Medication List Current Medications: Active Medications Acetaminophen (Tylenol -) 650 mg PO Q6H PRN PRN Reason: PAIN Last Admin: 12/29/16 20:52 Dose: 650 mg Bisacodyl (Dulcolax -) 5 mg PO DAILY PRN PRN Reason: CONSTIPATION Last Admin: 12/28/16 09:18 Dose: 5 mg Bisacodyl (Dulcolax Suppository -) 10 mg RC DAILY PRN PRN Reason: CONSTIPATION Calamine (Calamine 8% Topical Lotion -) 1 applic TP QID PRN PRN Reason: FOR ITCHING Calcium Acetate (Phoslo -) 667 mg PO TIDCM YOAN Last Admin: 12/29/16 16:50 Dose: 667 mg Diphenhydramine HCl (Benadryl -) 25 mg PO Q6H PRN PRN Reason: FOR ITCHING Last Admin: 12/29/16 21:57 Dose: 25 mg Heparin Sodium (Porcine) (Heparin -) 1,000 unit IVPUSH PRN PRN PRN Reason: Heparin Last Admin: 12/26/16 10:43 Dose: 1,000 unit Heparin Sodium (Porcine) (Heparin -) 5,000 unit IVPUSH PRN PRN PRN Reason: Heparin Last Admin: 12/24/16 21:14 Dose: 5,000 unit Heparin Sodium (Porcine) 25, (000 unit/ Sodium Chloride) 500 mls @ 20 mls/hr IV TITR YOAN; 1,000 UNIT/HR PRN Reason: Protocol Last Admin: 12/29/16 15:00 Dose: 32 mls/hr Insulin Aspart (Novolog Vial Sliding Scale -) 1 vial SQ ACHS YOAN PRN Reason: Protocol Last Admin: 12/30/16 06:14 Dose: Not Given Insulin Detemir (Levemir Vial) [address] [facility] Last Admin: 12/30/16 06:14 Dose: Not Given Levothyroxine Sodium (Synthroid -) [address] [facility] Last Admin: 12/30/16 08:20 Dose: 200 mcg Metoprolol Succinate (Toprol Xl -) 12.[address] [facility] Last Admin: 12/30/16 08:20 Dose: 12.5 mg Pantoprazole Sodium (Protonix -) [address] [facility] Last Admin: 12/30/16 08:21 Dose: 40 mg Polyethylene Glycol (Miralax (For Daily Use) -) [address] [facility] Last Admin: 12/29/16 09:32 Dose: Not Given Senna (Senna -) 2 tab PO HS PRN PRN Reason: CONSTIPATION Last Admin: 12/28/16 21:55 Dose: 2 tab Simethicone (Mylicon -) 80 mg PO QID PRN PRN Reason: GAS Last Admin: 12/29/16 08:49 Dose: 80 mg Sodium Hypochlorite (Dakin's Solution 0.5% (Full Strength) -) [address] [facility] Last Admin: 12/29/16 21:53 Dose: Not Given - Objective Vital Signs: Vital Signs Temperature 98.7 F 12/30/16 02:00 Pulse Rate 104 H 12/30/16 02:00 Respiratory Rate 20 12/30/16 02:00 Blood Pressure 152/74 12/30/16 02:00 O2 Sat by Pulse Oximetry (%) 93 L 12/29/16 21:00 Neck: Yes: Supple Cardiovascular: Yes: Pulse Irregular, S1, S2 Respiratory: Yes: CTA Bilaterally Gastrointestinal: Yes: Normal Bowel Sounds, Soft. No: Tenderness Extremities: Yes: Amputation (Right AKA, left TMA) Edema: No Additional Findings/Remarks: - Review of Systems Cardiovascular: As noted above Respiratory: denies: Cough or Sputum Production Gastrointestinal: denies: Nausea, Vomiting, Diarrhea, Constipation or Abdominal Pain Musculoskeletal: No symptoms reported Neurological: No symptoms reported Labs: CBC, BMP 12/30/16 07:07 12/29/16 06:00 INR, PTT INR 1.20 (0.82-1.09) H 12/24/16 06:07 Problem List - Problems (1) Anemia Code(s): D64.9 - ANEMIA, UNSPECIFIED Qualifiers: Anemia type: other cause Other causes of anemia: chronic disease, kidney Qualified Code(s): N18.9 - Chronic kidney disease, unspecified; D63.1 - Anemia in chronic kidney disease (2) Breast mass, left Code(s): N63 - UNSPECIFIED LUMP IN BREAST (3) Diabetes Code(s): E11.9 - TYPE 2 DIABETES MELLITUS WITHOUT COMPLICATIONS Qualifiers: Diabetes mellitus type: type 1 Diabetes mellitus complication status: with circulatory complication Diabetes mellitus complication detail: with other circulatory complications Qualified Code(s): E10.59 - Type 1 diabetes mellitus with other circulatory complications (4) Dialysis AV fistula infection Code(s): T82.7XXA - INFECT/INFLM REACT D/T OTH CARDI/VASC DEV/IMPLNT/GRFT, INIT Qualifiers: Encounter type: initial encounter Qualified Code(s): T82.7XXA - Infection and inflammatory reaction due to other cardiac and vascular devices, implants and grafts, initial encounter (5) ESRD on hemodialysis Code(s): N18.6 - END STAGE RENAL DISEASE Z99.2 - DEPENDENCE ON RENAL DIALYSIS (6) Foot amputation status Code(s): Z89.439 - ACQUIRED ABSENCE OF UNSPECIFIED FOOT Qualifiers: Laterality: right Qualified Code(s): Z89.431 - Acquired absence of right foot (7) Hypothyroidism Code(s): E03.9 - HYPOTHYROIDISM, UNSPECIFIED Qualifiers: Hypothyroidism type: unspecified Qualified Code(s): E03.9 - Hypothyroidism, unspecified (8) Pre-operative cardiovascular examination Code(s): Z01.810 - ENCOUNTER FOR PREPROCEDURAL CARDIOVASCULAR EXAMINATION (9) Status post transmetatarsal amputation of left foot Code(s): Z89.432 - ACQUIRED ABSENCE OF LEFT FOOT (10) HTN (hypertension) Code(s): I10 - ESSENTIAL (PRIMARY) HYPERTENSION Qualifiers: Hypertension type: essential hypertension Qualified Code(s): I10 - Essential (primary) hypertension (11) Hypercholesterolemia Code(s): E78.00 - PURE HYPERCHOLESTEROLEMIA, UNSPECIFIED (12) Atrial fibrillation Code(s): I48.91 - UNSPECIFIED ATRIAL FIBRILLATION Qualifiers: Atrial fibrillation type: unspecified Qualified Code(s): I48.91 - Unspecified atrial fibrillation (13) CAD (coronary artery disease) Code(s): I25.10 - ATHSCL HEART DISEASE OF [place] CORONARY ARTERY W/O ANG PCTRS Qualifiers: Coronary Disease-Associated Artery/Lesion type: [place] artery [place] vs. transplanted heart: [place] heart Associated angina: without angina Qualified Code(s): I25.10 - Atherosclerotic heart disease of [place] coronary artery without angina pectoris (14) History of percutaneous coronary intervention Code(s): Z98.890 - OTHER SPECIFIED POSTPROCEDURAL STATES Assessment/Plan 1. New onset atrial fibrillation rate controlled 2. CAD s/p multi-vessel PCI, angina pectoris 3. PVD s/p right AKA and left TMA 4. LV diastolic dysfunction 5. ESRD on HD - via permacath 6. Infected AVG 7. Insulin requiring diabetes mellitus 8. HTN/HCVD 9. Hypercholesterolemia 10. Hypothyroidism PLAN: 1. Heparin drip stopped in preparation for surgery 2. Eventually will need to initiate Coumadin with INR 2.0 - 3.0 post op. Not an ideal candidate for NOAC in view of ESRD 3. Plavix stopped last week. ASA stopped. 4. Continue Metoprolol 5. Continue remainder of medication 6. HD as per protocol 7. No absolute contraindication in regards to debridement in view of absence of ischemic symptoms, decompensated congestive heart failure or malignant arrhythmia. Further plans are to follow Ernie Polanco MD
[2016-12-30] MEDS ORDERED: MIDAZOLAM HCL 2 MG/2 ML SINGLE DOSE VIAL ONE ×2 (10:51→11:07)
[2016-12-30] MEDS ORDERED: CLINDAMYCIN 600 MG PREMIX BAG IVPB ONE (10:59)
--- NOTE | 2016-12-30 11:01 | PN ---
Progress Note, Physician Chief Complaint: pt awaiting surgery no distress - Current Medication List Current Medications: Active Medications Acetaminophen (Tylenol -) 650 mg PO Q6H PRN PRN Reason: PAIN Last Admin: 12/29/16 20:52 Dose: 650 mg Bisacodyl (Dulcolax -) 5 mg PO DAILY PRN PRN Reason: CONSTIPATION Last Admin: 12/28/16 09:18 Dose: 5 mg Bisacodyl (Dulcolax Suppository -) 10 mg RC DAILY PRN PRN Reason: CONSTIPATION Calamine (Calamine 8% Topical Lotion -) 1 applic TP QID PRN PRN Reason: FOR ITCHING Calcium Acetate (Phoslo -) 667 mg PO TIDCM YOAN Last Admin: 12/29/16 16:50 Dose: 667 mg Diphenhydramine HCl (Benadryl -) 25 mg PO Q6H PRN PRN Reason: FOR ITCHING Last Admin: 12/29/16 21:57 Dose: 25 mg Heparin Sodium (Porcine) (Heparin -) 1,000 unit IVPUSH PRN PRN PRN Reason: Heparin Last Admin: 12/26/16 10:43 Dose: 1,000 unit Heparin Sodium (Porcine) (Heparin -) 5,000 unit IVPUSH PRN PRN PRN Reason: Heparin Last Admin: 12/24/16 21:14 Dose: 5,000 unit Heparin Sodium (Porcine) 25, (000 unit/ Sodium Chloride) 500 mls @ 20 mls/hr IV TITR YOAN; 1,000 UNIT/HR PRN Reason: Protocol Last Admin: 12/29/16 15:00 Dose: 32 mls/hr Insulin Aspart (Novolog Vial Sliding Scale -) 1 vial SQ ACHS YOAN PRN Reason: Protocol Last Admin: 12/30/16 06:14 Dose: Not Given Insulin Detemir (Levemir Vial) 20 units SQ BIDI [facility] Last Admin: 12/30/16 06:14 Dose: Not Given Levothyroxine Sodium (Synthroid -) 200 mcg PO AM [facility] Last Admin: 12/30/16 08:20 Dose: 200 mcg Metoprolol Succinate (Toprol Xl -) 12.5 mg PO DAILY [facility] Last Admin: 12/30/16 08:20 Dose: 12.5 mg Pantoprazole Sodium (Protonix -) 40 mg PO DAILY [facility] Last Admin: 12/30/16 08:21 Dose: 40 mg Polyethylene Glycol (Miralax (For Daily Use) -) 17 gm PO DAILY [facility] Last Admin: 12/29/16 09:32 Dose: Not Given Senna (Senna -) 2 tab PO HS PRN PRN Reason: CONSTIPATION Last Admin: 12/28/16 21:55 Dose: 2 tab Simethicone (Mylicon -) 80 mg PO QID PRN PRN Reason: GAS Last Admin: 12/29/16 08:49 Dose: 80 mg Sodium Hypochlorite (Dakin's Solution 0.5% (Full Strength) -) 1 applic TP BID [facility] Last Admin: 12/29/16 21:53 Dose: Not Given - Objective Vital Signs: Vital Signs Temperature 98.7 F 12/30/16 02:00 Pulse Rate 104 H 12/30/16 02:00 Respiratory Rate 20 12/30/16 02:00 Blood Pressure 152/74 12/30/16 02:00 O2 Sat by Pulse Oximetry (%) 93 L 12/29/16 21:00 Constitutional: Yes: No Distress Cardiovascular: Yes: Pulse Irregular Respiratory: Yes: Diminished Gastrointestinal: Yes: Normal Bowel Sounds, Soft. No: Distention, Tenderness Edema: No Labs: CBC, BMP 12/30/16 07:07 12/29/16 06:00 INR, PTT INR 1.20 (0.82-1.09) H 12/24/16 06:07 Problem List - Problems (1) Atrial fibrillation Code(s): I48.91 - UNSPECIFIED ATRIAL FIBRILLATION Qualifiers: Atrial fibrillation type: unspecified Qualified Code(s): I48.91 - Unspecified atrial fibrillation (2) Breast abscess Code(s): N61.1 - ABSCESS OF THE BREAST AND NIPPLE (3) CAD (coronary artery disease) Code(s): I25.10 - ATHSCL HEART DISEASE OF [place] CORONARY ARTERY W/O ANG PCTRS Qualifiers: Coronary Disease-Associated Artery/Lesion type: [place] artery [place] vs. transplanted heart: [place] heart Associated angina: without angina Qualified Code(s): I25.10 - Atherosclerotic heart disease of [place] coronary artery without angina pectoris (4) ESRD on hemodialysis Code(s): N18.6 - END STAGE RENAL DISEASE Z99.2 - DEPENDENCE ON RENAL DIALYSIS (5) HTN (hypertension) Code(s): I10 - ESSENTIAL (PRIMARY) HYPERTENSION Qualifiers: Hypertension type: essential hypertension Qualified Code(s): I10 - Essential (primary) hypertension Assessment/Plan PLAN Heparin infusion on hold for surgery monitor CBC rate controlled Type and screen continue with meds Pt is medically cleared to proceed with surgery , Heparin infusion to resumed as per Surgeon
[2016-12-30] MEDS ORDERED: PROPOFOL 20 ML ONE (11:06)
[2016-12-30] MEDS ORDERED: CLINDAMYCIN PHOSPHATE 600 MG/4 ML VIAL ONE (11:06)
[2016-12-30] MEDS ORDERED: LIDOCAINE 1%/EPI 1:100000 (50 ML MULTI DOSE VIAL) INF ONE ×2 (11:10→11:50)
[2016-12-30] MEDS ORDERED: LIDOCAINE HCL 1%, 10 MG/ML (20ML VIAL) IJ ONE (11:10)
[2016-12-30] MEDS ORDERED: ONDANSETRON 4 MG/2 ML VIAL IVPUSH PRN ×2 (12:15→13:04)
--- NOTE | 2016-12-30 12:25 | OP ---
Operative Note - Note: Operative Date: 12/30/16 Pre-Operative Diagnosis: Left breast wound (6x10cm) and left ring fingertip wound (0.5x0.5cm). Operation: Excisional biopsy of left breast wound 6x10cm; excisional debridement of left ring finger wound 0.5x0.5cm. Findings: see formal note. Post-Operative Diagnosis: Same as Pre-op Surgeon: Moreno Mckenna Anesthesia: MAC Specimens Removed: Left breast wound, short stitch=superior, long stitch=lateral Operative Report Dictated: Yes
[2016-12-30] MEDS ORDERED: OXYCODONE/APAP 5/325MG COMBO TABLET PO PRN (12:31)
[2016-12-30] MEDS ORDERED: oxyCODONE HCL 5 MG TABLET PO PRN (12:52)
[2016-12-30] MEDS ORDERED: BISACODYL 10 MG SUPP.RECT RC PRN (13:04)
[2016-12-30] MEDS ORDERED: ACETAMINOPHEN 325 MG TABLET (FP) PO PRN (13:04)
[2016-12-30] MEDS ORDERED: BISACODYL 5 MG TABLET.DR (FP) PO PRN (13:04)
[2016-12-30] MEDS ORDERED: HEPARIN NA (PORCINE) 5,000 UNITS/ML 1ML VIAL IVPUSH PRN ×3 (13:04→19:18)
[2016-12-30] MEDS ORDERED: CALAMINE 8% TOPICAL LOTION 177 ML BOTTLE TP PRN (13:04)
--- NOTE | 2016-12-30 13:49 | PN ---
Progress Note, Physician Chief Complaint: Patient had breast debridement this morning.( Dr. Mckenna) Saw her in the Recovery room. Reports feeling well, Denies any chest pain, or shortness of breath. Had uneventful HD yesterday. History of Present Illness: Patient stable in the RR. Discussed with the nurses and the family. - Current Medication List Current Medications: Active Medications Acetaminophen (Tylenol -) 650 mg PO Q4H PRN PRN Reason: PAIN LEVEL 6-10 Stop: 01/02/17 12:51 Acetaminophen (Tylenol -) 650 mg PO Q6H PRN PRN Reason: PAIN Bisacodyl (Dulcolax Suppository -) 10 mg RC DAILY PRN PRN Reason: CONSTIPATION Bisacodyl (Dulcolax -) 5 mg PO DAILY PRN PRN Reason: CONSTIPATION Calamine (Calamine 8% Topical Lotion -) 1 applic TP QID PRN PRN Reason: FOR ITCHING Calcium Acetate (Phoslo -) 667 mg PO TIDCM YOAN Diphenhydramine HCl (Benadryl -) 25 mg PO Q6H PRN PRN Reason: FOR ITCHING Heparin Sodium (Porcine) (Heparin -) 5,000 unit IVPUSH PRN PRN PRN Reason: Heparin Insulin Aspart (Novolog Vial Sliding Scale -) 1 vial SQ ACHS YOAN PRN Reason: Protocol Insulin Detemir (Levemir Vial) 20 units SQ BIDI YOAN Levothyroxine Sodium (Synthroid -) 200 mcg PO AM [facility] Metoprolol Succinate (Toprol Xl -) 12.5 mg PO DAILY [facility]OAN Ondansetron HCl (Zofran Injection) 4 mg IVPUSH Q6H PRN PRN Reason: NAUSEA AND/OR VOMITING Stop: 12/30/16 18:16 Oxycodone HCl (Roxicodone -) 10 mg PO Q4H PRN PRN Reason: PAIN LEVEL 6-10 Pantoprazole Sodium (Protonix -) 40 mg PO DAILY YOAN Polyethylene Glycol (Miralax (For Daily Use) -) 17 gm PO DAILY [facility] Senna (Senna -) 2 tab PO HS PRN PRN Reason: CONSTIPATION Simethicone (Mylicon -) 80 mg PO QID PRN PRN Reason: GAS Sodium Hypochlorite (Dakin's Solution 0.5% (Full Strength) -) 1 applic TP BID YOAN - Objective Vital Signs: Vital Signs Temperature 99 F 12/30/16 09:00 Pulse Rate 112 H 12/30/16 09:00 Respiratory Rate 20 12/30/16 09:00 Blood Pressure 142/89 12/30/16 09:00 O2 Sat by Pulse Oximetry (%) 93 L 12/29/16 21:00 Constitutional: Yes: Calm, Anxious Eyes: Yes: Conjunctiva Clear Neck: Yes: Supple, Trachea Midline Respiratory: Yes: Regular, CTA Bilaterally Gastrointestinal: Yes: Normal Bowel Sounds, Soft Extremities: Yes: Amputation Wound/Incision: Yes: Well Approximated Neurological: Yes: Alert, Oriented Psychiatric: Yes: Alert, Oriented Labs: CBC, BMP 12/30/16 07:07 12/29/16 06:00 INR, PTT INR 1.20 (0.82-1.09) H 12/24/16 06:07 Problem List - Problems (1) Atrial fibrillation Code(s): I48.91 - UNSPECIFIED ATRIAL FIBRILLATION Qualifiers: Atrial fibrillation type: unspecified Qualified Code(s): I48.91 - Unspecified atrial fibrillation (2) Breast abscess Code(s): N61.1 - ABSCESS OF THE BREAST AND NIPPLE (3) CAD (coronary artery disease) Code(s): I25.10 - ATHSCL HEART DISEASE OF [place] CORONARY ARTERY W/O ANG PCTRS Qualifiers: Coronary Disease-Associated Artery/Lesion type: [place] artery [place] vs. transplanted heart: [place] heart Associated angina: without angina Qualified Code(s): I25.10 - Atherosclerotic heart disease of [place] coronary artery without angina pectoris (4) ESRD on hemodialysis Code(s): N18.6 - END STAGE RENAL DISEASE Z99.2 - DEPENDENCE ON RENAL DIALYSIS (5) HTN (hypertension) Code(s): I10 - ESSENTIAL (PRIMARY) HYPERTENSION Qualifiers: Hypertension type: essential hypertension Qualified Code(s): I10 - Essential (primary) hypertension (6) History of percutaneous coronary intervention Code(s): Z98.890 - OTHER SPECIFIED POSTPROCEDURAL STATES (7) Hypercholesterolemia Code(s): E78.00 - PURE HYPERCHOLESTEROLEMIA, UNSPECIFIED (8) Anemia Code(s): D64.9 - ANEMIA, UNSPECIFIED Qualifiers: Anemia type: other cause Other causes of anemia: chronic disease, kidney Qualified Code(s): N18.9 - Chronic kidney disease, unspecified; D63.1 - Anemia in chronic kidney disease (9) Anemia in ESRD (end-stage renal disease) Code(s): N18.6 - END STAGE RENAL DISEASE D63.1 - ANEMIA IN CHRONIC KIDNEY DISEASE (10) Breast mass, left Code(s): N63 - UNSPECIFIED LUMP IN BREAST (11) Breast pain, left Code(s): N64.4 - MASTODYNIA Assessment/Plan 71 y/o female with ESRD, on HD, now has new onset A Fib. S/p Breast debridement. On IV heparin to bridge for the surgery. Had uneventful HD yesterday. Reviewed Labs and Medications. For next HD tomorrow. Discussed with the patient's family.
[2016-12-30] MEDS: ACETAMINOPHEN 325 MG TABLET (FP) PO PRN ×2 (17:59→22:17)
[2016-12-30] MEDS: HEPARIN - 25,000 UNIT in SODIUM CHLORIDE 495 ML IV SCH (21:59)
[2016-12-31] MEDS: INSULIN SLIDING SCALE (NOVOLOG) 1 VIAL SQ SCH ×4 (06:51→21:15)
[2016-12-31] MEDS: LEVOTHYROXINE NA 100 MCG TABLET (FP) PO SCH (06:55)
[2016-12-31 07:54] LABS: ALBUMIN 2.5 g/dl (3.4-5.0); CALCIUM 8.8 mg/dL (8.5-10.1)
[2016-12-31] MEDS: INSULIN DETEMIR 100 UNITS/ML MDV SQ SCH ×2 (07:54→17:49)
[2016-12-31] MEDS: CALCIUM ACETATE 667 MG CAPSULE (FP) PO SCH ×3 (07:54→17:47)
[2016-12-31 07:58] LABS: BILIRUBIN,TOTAL 0.3 mg/dL (0.2-1.0); COCKROFT - GAULT 11.798; CREATININE 6.2 mg/dL (0.55-1.02)
--- NOTE | 2016-12-31 08:34 | PN ---
Progress Note (short form) - Note Progress Note: <Jessenia Galarza - Last Filed: 12/31/16 10:19> - Note Progress Note: SUBJECTIVE: Patient seen and examined. Chart reviewed. Post operative Day #1. Denies chest pain or shortness of breath. Pain is under control. Heparin on hold. OBJECTIVE: Vital Signs 12/31/16 12/31/16 12/31/16 06:00 08:00 09:00 Temperature 98.0 F Pulse Rate 103 H 108 H Respiratory 20 18 Rate Blood Pressure 158/74 164/87 O2 Sat by Pulse 96 Oximetry (%) Intake & Output 12/30/16 12/31/16 12/31/16 23:59 07:59 15:59 Intake Total 360 0 Balance 360 0 Weight 92.533 kg Intake: IV 0 Heparin - 25,000 Unit In 0 Normal Saline - 495 ml @ 1,000 UNIT/HR 20 mls/hr IV TITR YOAN Rx#: [id number] Oral 360 Other: Voiding Method Diaper Diaper # Unmeasured Voids Void 1 Weight Measurement Method Patient Lift Scale Active Medications Acetaminophen (Tylenol -) 650 mg PO Q4H PRN PRN Reason: PAIN LEVEL 6-10 Stop: 01/02/17 12:51 Last Admin: 12/30/16 22:17 Dose: 650 mg Acetaminophen (Tylenol -) 650 mg PO Q6H PRN PRN Reason: PAIN Last Admin: 12/31/16 07:03 Dose: 650 mg Bisacodyl (Dulcolax Suppository -) 10 mg RC DAILY PRN PRN Reason: CONSTIPATION Bisacodyl (Dulcolax -) 5 mg PO DAILY PRN PRN Reason: CONSTIPATION Calamine (Calamine 8% Topical Lotion -) 1 applic TP QID PRN PRN Reason: FOR ITCHING Calcium Acetate (Phoslo -) 667 mg PO TIDCM YOAN Last Admin: 12/31/16 07:54 Dose: 667 mg Diphenhydramine HCl (Benadryl -) 25 mg PO Q6H PRN PRN Reason: FOR ITCHING Epoetin Sky (Procrit -) 10,000 unit IVPUSH ONCE ONE Stop: 12/31/16 13:50 Heparin Sodium (Porcine) (Heparin -) 5,000 unit IVPUSH PRN PRN PRN Reason: Heparin Heparin Sodium (Porcine) (Heparin -) 1,000 unit IVPUSH PRN PRN PRN Reason: Heparin Heparin Sodium (Porcine) 25, (000 unit/ Sodium Chloride) 500 mls @ 20 mls/hr IV TITR YOAN; 1,000 UNIT/HR PRN Reason: Protocol Last Admin: 12/30/16 21:59 Dose: Not Given Insulin Aspart (Novolog Vial Sliding Scale -) 1 vial SQ ACHS YOAN PRN Reason: Protocol Last Admin: 12/31/16 06:51 Dose: Not Given Insulin Detemir (Levemir Vial) 20 units SQ BIDI [facility] Last Admin: 12/31/16 07:54 Dose: 20 units Levothyroxine Sodium (Synthroid -) 200 mcg PO AM [facility] Last Admin: 12/31/16 06:55 Dose: 200 mcg Metoprolol Succinate (Toprol Xl -) 12.5 mg PO DAILY [facility] Last Admin: 12/31/16 09:19 Dose: 12.5 mg Oxycodone HCl (Roxicodone -) 10 mg PO Q4H PRN PRN Reason: PAIN LEVEL 6-10 Last Admin: 12/30/16 22:16 Dose: 5 mg Pantoprazole Sodium (Protonix -) 40 mg PO DAILY [facility] Last Admin: 12/31/16 09:18 Dose: 40 mg Polyethylene Glycol (Miralax (For Daily Use) -) 17 gm PO DAILY [facility] Last Admin: 12/31/16 09:19 Dose: Not Given Senna (Senna -) 2 tab PO HS PRN PRN Reason: CONSTIPATION Simethicone (Mylicon -) 80 mg PO QID PRN PRN Reason: GAS Sodium Hypochlorite (Dakin's Solution 0.5% (Full Strength) -) 1 applic TP BID [facility] Last Admin: 12/31/16 09:19 Dose: Not Given CBC, BMP 12/31/16 07:00 12/31/16 05:35 Laboratory Results - last 24 hr 12/30/16 12/30/16 12/30/16 13:39 15:37 21:56 WBC RBC Hgb Hct MCV MCHC RDW Plt Count MPV Sodium Potassium Chloride Carbon Dioxide Anion Gap BUN Creatinine Creat Clearance w eGFR POC Glucometer 172 238 331 Random Glucose Calcium Total Bilirubin AST ALT Alkaline Phosphatase Total Protein Albumin 12/31/16 12/31/1617 05:35 06:00 07:00 WBC 8.8 D RBC 4.12 Hgb 12.0 Hct 37.9 MCV 92.0 MCHC 31.6 L RDW 16.8 H Plt Count 317 MPV 8.0 Sodium 143 Potassium 4.4 Chloride 106 Carbon Dioxide 26 Anion Gap 11 BUN 24 H D Creatinine 6.2 H Creat Clearance w eGFR 6.62 POC Glucometer 83 Random Glucose 92 D Calcium 8.8 Total Bilirubin 0.3 AST 5 L D ALT 10 L Alkaline Phosphatase 87 Total Protein 6.0 L Albumin 2.5 L PHYSICAL EXAMINATION: Constitutional: Yes: No Distress Cardiovascular: Yes: Pulse Irregular Respiratory: Yes: Diminished Gastrointestinal: Yes: Normal Bowel Sounds, Soft. No: Distention, Tenderness Edema: No ASSESSMENT & PLAN: - Clinically stable. - Continue present care, - Surgeon to follow today. - Restart Heparin today after surgical follow up - Start on Coumadin today, if it is okay with Surgery. - Will follow. Documentation prepared by Liudmila Garcia, acting as a medical lab assistant for Jessenia Galarza MD. <Liudmila Garcia - Last Filed: 12/31/16 10:32> Problem List - Problems (1) Atrial fibrillation Code(s): I48.91 - UNSPECIFIED ATRIAL FIBRILLATION Qualifiers: Atrial fibrillation type: unspecified Qualified Code(s): I48.91 - Unspecified atrial fibrillation (2) Breast abscess Code(s): N61.1 - ABSCESS OF THE BREAST AND NIPPLE (3) CAD (coronary artery disease) Code(s): I25.10 - ATHSCL HEART DISEASE OF [place] CORONARY ARTERY W/O ANG PCTRS Qualifiers: Coronary Disease-Associated Artery/Lesion type: [place] artery [place] vs. transplanted heart: [place] heart Associated angina: without angina Qualified Code(s): I25.10 - Atherosclerotic heart disease of [place] coronary artery without angina pectoris (4) ESRD on hemodialysis Code(s): N18.6 - END STAGE RENAL DISEASE Z99.2 - DEPENDENCE ON RENAL DIALYSIS (5) HTN (hypertension) Code(s): I10 - ESSENTIAL (PRIMARY) HYPERTENSION Qualifiers: Hypertension type: essential hypertension Qualified Code(s): I10 - Essential (primary) hypertension (6) Hypercholesterolemia Code(s): E78.00 - PURE HYPERCHOLESTEROLEMIA, UNSPECIFIED (7) Anemia Code(s): D64.9 - ANEMIA, UNSPECIFIED Qualifiers: Anemia type: other cause Other causes of anemia: chronic disease, kidney Qualified Code(s): N18.9 - Chronic kidney disease, unspecified; D63.1 - Anemia in chronic kidney disease (8) Diabetes Code(s): E11.9 - TYPE 2 DIABETES MELLITUS WITHOUT COMPLICATIONS Qualifiers: Diabetes mellitus type: type 1 Diabetes mellitus complication status: with circulatory complication Diabetes mellitus complication detail: with other circulatory complications Qualified Code(s): E10.59 - Type 1 diabetes mellitus with other circulatory complications (9) Foot amputation status Code(s): Z89.439 - ACQUIRED ABSENCE OF UNSPECIFIED FOOT Qualifiers: Laterality: right Qualified Code(s): Z89.431 - Acquired absence of right foot <Liudmila Garcia - Last Filed: 12/31/16 10:32>
[2016-12-31] MEDS: PANTOPRAZOLE 40 MG TABLET (FP) PO SCH (09:18)
[2016-12-31] MEDS: SODIUM HYPOCHLORITE 0.5% 473 ML- BULK BOTTLE TP SCH ×2 (09:19→21:18)
[2016-12-31] MEDS: METOPROLOL SUCCINATE 25 MG TAB.SR.24H (FP) PO SCH (09:19)
[2016-12-31 09:25] LABS: MCH 29.1 pg (25.7-33.7); MCHC 31.6 g/dl (32.0-36.0); PLATELET COUNT 317 K/MM3 (134-434); RDW 16.8 % (11.6-15.6); WHITE BLOOD COUNT 8.8 K/mm3 (4.0-10.0)
[2016-12-31] MEDS ORDERED: POLYETHYLENE GLYCOL 3350 119 GM BTL PO SCH (10:00)
--- NOTE | 2016-12-31 10:46 | PATH ---
Surgical Pathology Report Patient Name: GAMA OLSON Med. Rec. #: [id number] /Age/Gender: 1945 (Age: 71) / F Account: [id number] Location: [facility] MED/SURG Taken: 12/31/2016 Received: 12/31/2016 Reported: 12/31/2016 Physicians: Moreno Mckenna M.D. Specimen(s) Received LEFT BREAST WOUND TISSUE Clinical History Nonhealing wound left breast and left hand ring finger tip Final Diagnosis LEFT BREAST, PARTIAL EXCISION: BENIGN BREAST TISSUE WITH EXTENSIVE ULCERATION AND GANGRENOUS NECROSIS. ADDITIONAL AREAS OF FIBROSIS AND FAT NECROSIS CONSISTENT WITH PRIOR SURGICAL SITE PRESENT. NO CARCINOMA IDENTIFIED. Comment: Recommend correlation with clinical findings and follow up as clinically indicated. Electronically Signed Luis Carlos Avalos M.D. Gross Description Received in formalin, labeled "left breast wound tissue," is an 8.0 x 5.8 x 3.5 cm. campos-yellow, irregular, portion of fibroadipose tissue. There is no needle localization wire present. There is a short suture marking the superior aspect and a long suture marking the lateral aspect, per the surgeon. The anterior surface displays a 7.0 x 5.2 cm campos, ovoid portion of skin with a 1.0 cm in diameter possible nipple. The skin displays 2 gangrenous, ulcerated lesions. There is one lesion medial to the nipple and one lesion lateral to the nipple. The specimen is inked as follows: Superior blue; inferior green; lateral red; medial yellow; deep black. The specimen is serially sectioned from medial to lateral. Sectioning reveals abundant necrotic soft tissue. No definitive masses are identified. Heel Layer sections are submitted in 10 cassettes as follows: 1-serially sectioned possible nipple; 2-subareolar shave; 3-lesion to superior margin; 4-lesion to inferior margin; 5-medial margin; 6-lateral margin; 7-lesion to deep margin; 8-additional deep margin; 9-10-lesion with skin. Total formalin fixation time: Approximately 6 hours /12/30/201612/30/2016
--- NOTE | 2016-12-31 11:28 | PN ---
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 Patient denies any chest pain or discomfort, no dyspnea, PND or othopnea. No palpitations, lightheadedness, dizziness or syncope. Active Medications Generic Name Dose Route Start Last Admin Trade Name Freq PRN Reason Stop Dose Admin Acetaminophen 650 mg 12/30/16 12:52 12/30/16 22:17 Tylenol - PO 01/02/17 12:51 650 mg Q4H PRN Administration PAIN LEVEL 6-10 Acetaminophen 650 mg 12/30/16 13:04 12/31/16 07:03 Tylenol - PO 650 mg Q6H PRN Administration PAIN Bisacodyl 10 mg 12/30/16 13:04 Dulcolax Suppository - RC DAILY PRN CONSTIPATION Bisacodyl 5 mg 12/30/16 13:04 Dulcolax - PO DAILY PRN CONSTIPATION Calamine 1 applic 12/30/16 13:04 Calamine 8% Topical Lotion - TP QID PRN FOR ITCHING Calcium Acetate 667 mg 12/30/16 17:30 12/31/16 07:54 Phoslo - PO 667 mg TIDCM YOAN Administration Diphenhydramine HCl 25 mg 12/30/16 13:04 Benadryl - PO Q6H PRN FOR ITCHING Epoetin Sky 10,000 unit 12/31/16 13:49 Procrit - IVPUSH 12/31/16 13:50 ONCE ONE Heparin Sodium (Porcine) 5,000 unit 12/30/16 19:17 Heparin - IVPUSH PRN PRN Heparin Heparin Sodium (Porcine) 1,000 unit 12/30/16 19:18 Heparin - IVPUSH PRN PRN Heparin Heparin Sodium (Porcine) 25, 500 mls @ 20 mls/hr 12/30/16 19:30 12/30/16 21:59 000 unit/ Sodium Chloride IV Not Given TITR YOAN Protocol 1,000 UNIT/HR Insulin Aspart 1 vial 12/30/16 16:30 12/31/16 06:51 Novolog Vial Sliding Scale - SQ Not Given ACHS YOAN Protocol Insulin Detemir 20 units 12/30/16 16:30 12/31/16 07:54 Levemir Vial SQ 20 units BIDI YOAN Administration Levothyroxine Sodium 200 mcg 12/31/16 07:00 12/31/16 06:55 Synthroid - PO 200 mcg AM YOAN Administration Metoprolol Succinate 12.5 mg 12/31/16 10:00 12/31/16 09:19 Toprol Xl - PO 12.5 mg DAILY YOAN Administration Oxycodone HCl 10 mg 12/30/16 12:52 12/30/16 22:16 Roxicodone - PO 5 mg Q4H PRN Administration PAIN LEVEL 6-10 Pantoprazole Sodium 40 mg 12/31/16 10:00 12/31/16 09:18 Protonix - PO 40 mg DAILY YOAN Administration Polyethylene Glycol 17 gm 12/31/16 10:00 12/31/16 09:19 Miralax (For Daily Use) - PO Not Given DAILY YOAN Senna 2 tab 12/30/16 13:04 Senna - PO HS PRN CONSTIPATION Simethicone 80 mg 12/30/16 13:04 Mylicon - PO QID PRN GAS Sodium Hypochlorite 1 applic 12/30/16 22:00 12/31/16 09:19 Dakin's Solution 0.5% (Full Strength) - TP Not Given BID [facility] Warfarin Sodium 5 mg 12/31/16 18:00 Coumadin - PO DAILY@1800 YOAN O: 71 year old female was in no acute distress, no pallor, cyanosis, clubbing, or jaundice. Last Vital Signs Temp Pulse Resp BP Pulse Ox 98.0 F 108 H Irregularly irregular 18 164/87 96 12/31/16 08:00 12/31/16 08:00 12/31/16 08:00 12/31/16 08:00 12/31/16 09:00 Neck: Supple, no JVD, negative HJR, carotids were equal and upstrokes were normal, no thyromegaly appreciated. Heart: PMI was in the 5th intercostal space, no heaves or thrills, S1 and S2 were normal. No murmurs or gallops were appreciated. Lungs: Clear on auscultation bilaterally. Abdomen: Soft, nontender, no hepatosplenomegaly appreciated, and no palpable masses were felt. Extremities: Right AKA, left partial foot amputation. No edema. Left ring finger is bandaged. CBC, BMP 12/31/16 07:00 12/31/16 05:35 Laboratory Results - last 24 hr 12/30/16 12/30/16 12/30/16 13:39 15:37 21:56 WBC RBC Hgb Hct MCV MCHC RDW Plt Count MPV Sodium Potassium Chloride Carbon Dioxide Anion Gap BUN Creatinine Creat Clearance w eGFR POC Glucometer 172 238 331 Random Glucose Calcium Total Bilirubin AST ALT Alkaline Phosphatase Total Protein Albumin 12/31/16 12/31/16 12/31/16 05:35 06:00 07:00 WBC 8.8 D RBC 4.12 Hgb 12.0 Hct 37.9 MCV 92.0 MCHC 31.6 L RDW 16.8 H Plt Count 317 MPV 8.0 Sodium 143 Potassium 4.4 Chloride 106 Carbon Dioxide 26 Anion Gap 11 BUN 24 H D Creatinine 6.2 H Creat Clearance w eGFR 6.62 POC Glucometer 83 Random Glucose 92 D Calcium 8.8 Total Bilirubin 0.3 AST 5 L D ALT 10 L Alkaline Phosphatase 87 Total Protein 6.0 L Albumin 2.5 L Impression: (1) Atrial fibrillation with rapid ventricular response Code(s): I48.91 - UNSPECIFIED ATRIAL FIBRILLATION Qualifiers: Atrial fibrillation type: unspecified Qualified Code(s): I48.91 - Unspecified atrial fibrillation (2) Left breast abscess Code(s): N63 - UNSPECIFIED [place] IN BREAST (3) Diabetes Mellitus with multi system involvement Code(s): E11.9 - TYPE 2 DIABETES MELLITUS WITHOUT COMPLICATIONS Qualifiers: Diabetes mellitus type: type 1 Diabetes mellitus complication status: with circulatory complication Diabetes mellitus complication detail: with other circulatory complications Qualified Code(s): E10.59 - Type 1 diabetes mellitus with other circulatory complications (4) Dialysis AV fistula infection Code(s): T82.7XXA - INFECT/INFLM REACT D/T OTH CARDI/VASC DEV/IMPLNT/GRFT, INIT Qualifiers: Encounter type: initial encounter Qualified Code(s): T82.7XXA - Infection and inflammatory reaction due to other cardiac and vascular devices, implants and grafts, initial encounter (5) ESRD on hemodialysis Code(s): N18.6 - END STAGE RENAL DISEASE Z99.2 - DEPENDENCE ON RENAL DIALYSIS (6) Foot amputation status Code(s): Z89.439 - ACQUIRED ABSENCE OF UNSPECIFIED FOOT Qualifiers: Laterality: right Qualified Code(s): Z89.431 - Acquired absence of right foot (7) Hypothyroidism Code(s): E03.9 - HYPOTHYROIDISM, UNSPECIFIED Qualifiers: Hypothyroidism type: unspecified Qualified Code(s): E03.9 - Hypothyroidism, unspecified (8) Pre-operative cardiovascular examination Code(s): Z01.810 - ENCOUNTER FOR PREPROCEDURAL CARDIOVASCULAR EXAMINATION (9) Status post transmetatarsal amputation of left foot Code(s): Z89.432 - ACQUIRED ABSENCE OF LEFT FOOT (10) HTN (hypertension) Code(s): I10 - ESSENTIAL (PRIMARY) HYPERTENSION Qualifiers: Hypertension type: essential hypertension Qualified Code(s): I10 - Essential (primary) hypertension (11) Hypercholesterolemia Code(s): E78.00 - PURE HYPERCHOLESTEROLEMIA, UNSPECIFIED (13) CAD (coronary artery disease) Code(s): I25.10 - ATHSCL HEART DISEASE OF [place] CORONARY ARTERY W/O ANG PCTRS Qualifiers: Coronary Disease-Associated Artery/Lesion type: [place] artery [place] vs. transplanted heart: [place] heart Associated angina: without angina Qualified Code(s): I25.10 - Atherosclerotic heart disease of [place] coronary artery without angina pectoris (14) History of percutaneous coronary intervention Code(s): Z98.890 - OTHER SPECIFIED POSTPROCEDURAL STATES Recommendations: 1. If patient continues to have a rapid ventricular response consider increasing the dose of Toprol. 2. Continue current medications. 3. Increase ambulation. 4. Anticoagulation is in progress. Attestation: Documentation prepared by Jonathan Hudson, acting as medical associate for Darwin Lopez MD.
[2016-12-31 13:28] LABS: EOSINOPHIL 3.6 % (0-4.5); NEUTROPHILS 69.7 % (42.8-82.8)
[2016-12-31 13:29] LABS: BASOPHIL 1.1 % (0-2.0)
--- NOTE | 2016-12-31 15:49 | PN ---
Progress Note (short form) - Note Progress Note: Renal Follow up for ESRD on HD Pt seen and examined during dialysis earlier this morning BP 190/90 (was given BP meds earlier) pt has some tenderness in the breast no sob or chest pain access with good function Vital Signs Temperature 98.8 F 12/31/16 12:10 Pulse Rate 90 12/31/16 12:10 Respiratory Rate 18 12/31/16 12:10 Blood Pressure 170/82 12/31/16 12:10 O2 Sat by Pulse Oximetry (%) 96 12/31/16 09:00 Gen: NAD, awake and alert CVS: RRR, No M/R Lungs: CTA, no rales or wheeze Abd:soft NT/ND Ext: B/L LE amputations Breast: Dressing in place CBC, BMP 12/31/16 07:00 12/31/16 05:35 Current Medications Acetaminophen (Tylenol -) 650 mg PO Q4H PRN PRN Reason: PAIN LEVEL 6-10 Stop: 01/02/17 12:51 Last Admin: 12/30/16 22:17 Dose: 650 mg Acetaminophen (Tylenol -) 650 mg PO Q6H PRN PRN Reason: PAIN Last Admin: 12/31/16 07:03 Dose: 650 mg Bisacodyl (Dulcolax Suppository -) 10 mg RC DAILY PRN PRN Reason: CONSTIPATION Bisacodyl (Dulcolax -) 5 mg PO DAILY PRN PRN Reason: CONSTIPATION Calamine (Calamine 8% Topical Lotion -) 1 applic TP QID PRN PRN Reason: FOR ITCHING Calcium Acetate (Phoslo -) 667 mg PO TIDCM YOAN Last Admin: 12/31/16 12:35 Dose: Not Given Diphenhydramine HCl (Benadryl -) 25 mg PO Q6H PRN PRN Reason: FOR ITCHING Epoetin Sky (Procrit -) 10,000 unit IVPUSH ONCE ONE Stop: 12/31/16 13:50 Heparin Sodium (Porcine) (Heparin -) 5,000 unit IVPUSH PRN PRN PRN Reason: Heparin Heparin Sodium (Porcine) (Heparin -) 1,000 unit IVPUSH PRN PRN PRN Reason: Heparin Heparin Sodium (Porcine) 25, (000 unit/ Sodium Chloride) 500 mls @ 20 mls/hr IV TITR YOAN; 1,000 UNIT/HR PRN Reason: Protocol Last Admin: 12/30/16 21:59 Dose: Not Given Insulin Aspart (Novolog Vial Sliding Scale -) 1 vial SQ ACHS [facility] PRN Reason: Protocol Last Admin: 12/31/16 12:06 Dose: Not Given Insulin Detemir (Levemir Vial) 20 units SQ BIDI [facility] Last Admin: 12/31/16 07:54 Dose: 20 units Levothyroxine Sodium (Synthroid -) 200 mcg PO AM [facility] Last Admin: 12/31/16 06:55 Dose: 200 mcg Metoprolol Succinate (Toprol Xl -) 12.5 mg PO DAILY [facility] Last Admin: 12/31/16 09:19 Dose: 12.5 mg Oxycodone HCl (Roxicodone -) 10 mg PO Q4H PRN PRN Reason: PAIN LEVEL 6-10 Last Admin: 12/30/16 22:16 Dose: 5 mg Pantoprazole Sodium (Protonix -) 40 mg PO DAILY [facility] Last Admin: 12/31/16 09:18 Dose: 40 mg Polyethylene Glycol (Miralax (For Daily Use) -) 17 gm PO DAILY [facility] Last Admin: 12/31/16 09:19 Dose: Not Given Senna (Senna -) 2 tab PO HS PRN PRN Reason: CONSTIPATION Simethicone (Mylicon -) 80 mg PO QID PRN PRN Reason: GAS Sodium Hypochlorite (Dakin's Solution 0.5% (Full Strength) -) 1 applic TP BID [facility] Last Admin: 12/31/16 09:19 Dose: Not Given Warfarin Sodium (Coumadin -) 5 mg PO DAILY@1800 [facility] A/P 71 year old woman with PMhx of ESRD on HD (MWF), CAD s/p PCI and stenting, DM Type 2 on insulin, PVD s/p Multiple amputations, Multiple failed dialysis accesses s/p recent HERO graft infection presents after being found to have new onset Afib by Cardiology. #Breast Wound s/p Debridement wound care Surgical follow up Pathology pending #ESRD on HD stable HD today #New onset Afib on Heparin and Coumadin now Cardiology following #CAD ASA continued as per cardiology #Hypertension BP improved with UF with dialysis Wan Cruz DO
[2016-12-31] MEDS ORDERED: EPOETIN ALFA 10,000 UNIT/1 ML VIAL IVPUSH ONE (16:00)
--- NOTE | 2016-12-31 17:08 | PN ---
Progress Note, Physician Chief Complaint: Left breast wound; left ring fingertip wound - Current Medication List Current Medications: Active Medications Acetaminophen (Tylenol -) 650 mg PO Q4H PRN PRN Reason: PAIN LEVEL 6-10 Stop: 01/02/17 12:51 Last Admin: 12/30/16 22:17 Dose: 650 mg Acetaminophen (Tylenol -) 650 mg PO Q6H PRN PRN Reason: PAIN Last Admin: 12/31/16 07:03 Dose: 650 mg Bisacodyl (Dulcolax Suppository -) 10 mg RC DAILY PRN PRN Reason: CONSTIPATION Bisacodyl (Dulcolax -) 5 mg PO DAILY PRN PRN Reason: CONSTIPATION Calamine (Calamine 8% Topical Lotion -) 1 applic TP QID PRN PRN Reason: FOR ITCHING Calcium Acetate (Phoslo -) 667 mg PO TIDCM [facility] Last Admin: 12/31/16 12:35 Dose: Not Given Diphenhydramine HCl (Benadryl -) 25 mg PO Q6H PRN PRN Reason: FOR ITCHING Heparin Sodium (Porcine) (Heparin -) 5,000 unit IVPUSH PRN PRN PRN Reason: Heparin Heparin Sodium (Porcine) (Heparin -) 1,000 unit IVPUSH PRN PRN PRN Reason: Heparin Heparin Sodium (Porcine) 25, (000 unit/ Sodium Chloride) 500 mls @ 20 mls/hr IV TITR YOAN; 1,000 UNIT/HR PRN Reason: Protocol Last Admin: 12/30/16 21:59 Dose: Not Given Insulin Aspart (Novolog Vial Sliding Scale -) 1 vial SQ ACHS [facility] PRN Reason: Protocol Last Admin: 12/31/16 12:06 Dose: Not Given Insulin Detemir (Levemir Vial) 20 units SQ BIDI [facility] Last Admin: 12/31/16 07:54 Dose: 20 units Levothyroxine Sodium (Synthroid -) 200 mcg PO AM [facility] Last Admin: 12/31/16 06:55 Dose: 200 mcg Metoprolol Succinate (Toprol Xl -) 12.5 mg PO DAILY [facility] Last Admin: 12/31/16 09:19 Dose: 12.5 mg Oxycodone HCl (Roxicodone -) 10 mg PO Q4H PRN PRN Reason: PAIN LEVEL 6-10 Last Admin: 12/30/16 22:16 Dose: 5 mg Pantoprazole Sodium (Protonix -) 40 mg PO DAILY [facility] Last Admin: 12/31/16 09:18 Dose: 40 mg Polyethylene Glycol (Miralax (For Daily Use) -) 17 gm PO DAILY [facility] Last Admin: 12/31/16 09:19 Dose: Not Given Senna (Senna -) 2 tab PO HS PRN PRN Reason: CONSTIPATION Simethicone (Mylicon -) 80 mg PO QID PRN PRN Reason: GAS Sodium Hypochlorite (Dakin's Solution 0.5% (Full Strength) -) 1 applic TP BID [facility] Last Admin: 12/31/16 09:19 Dose: Not Given Warfarin Sodium (Coumadin -) 5 mg PO DAILY@1800 [facility] - Objective Vital Signs: Vital Signs Temperature 98.8 F 12/31/16 12:10 Pulse Rate 66 12/31/16 15:30 Respiratory Rate 18 12/31/16 15:30 Blood Pressure 121/73 12/31/16 15:30 O2 Sat by Pulse Oximetry (%) 96 12/31/16 09:00 Constitutional: Yes: Well Nourished, No Distress, Calm Eyes: Yes: WNL HENT: No: Drooling, Epistaxis, Hoarseness, Nasal Congestion, Pharyngeal Erythema , Rhinnorhea, Thrush, Tonsillar Exudate, Other Breast(s): Yes: Other (The left breast wound is open and clean. No bleeding. No foul odor. No purulence. No surrounding erythema.) Extremities: Yes: Other (The left ring fingertip wound is open and clean. No bleeding. No foul odor. No purulence. No surrounding erythema.) Labs: CBC, BMP 12/31/16 07:00 12/31/16 05:35 INR, PTT INR 1.20 (0.82-1.09) H 12/24/16 06:07 Assessment/Plan 71 yo F, dialysis dependent, diabetes, atrial fibrillation, s/p excisional biopsy of left breast wound and left ring fingertip debridement. Wounds are open and clean and appropriate for discharge to home. Recommendations: - 0.5% Dakins solution Kerlix gauze dressing changes for the left breast, 2 times per day. - 0.5% Dakins solution Kerlix gauze dressing changes for the left ring fingertip , 2 times per day. - Bacitracin ointment 2-3 times daily to the small abrasions upon the left dorsal hand and fingers. - No tape upon the skin. - Minimize fingersticks and lab draws, given the patient's fragile skin and impaired healing. - Will arrange for follow up at my office, , [address] [place] [address], [address], [place] [address], in 7-10 days. - I will sign off of this patient's inpatient care at this time.
[2016-12-31] MEDS ORDERED: INSULIN (NOVOLOG) ASPART 100 UNITS/ML 10ML VIAL ONE (17:41)
[2016-12-31] MEDS: ACETAMINOPHEN 325 MG TABLET (FP) PO PRN (17:48)
[2016-12-31] MEDS: WARFARIN NA 5 MG TABLET (UD) PO SCH (17:49)
[2016-12-31] MEDS ORDERED: PT OWN MED DRAWER 7, Y5N ONE (19:48)
[2016-12-31] MEDS: HEPARIN - 25,000 UNIT in SODIUM CHLORIDE 495 ML IV SCH (20:21)
[2016-12-31] MEDS: BACITRACIN 15 GM TUBE TOPICAL OINTMENT TP SCH (21:07)
[2016-12-31] MEDS ORDERED: POLYETHYLENE GLYCOL 3350 119 GM BTL PO PRN (21:15)
[2016-12-31] MEDS ORDERED: BISACODYL 5 MG TABLET.DR (FP) PO PRN (21:17)
[2016-12-31] MEDS: traMADol HCL 50 MG TABLET PO PRN (21:20)
[2017-01-01] MEDS: HEPARIN - 25,000 UNIT in SODIUM CHLORIDE 495 ML IV SCH ×2 (04:15→20:49)
[2017-01-01] MEDS: INSULIN SLIDING SCALE (NOVOLOG) 1 VIAL SQ SCH ×4 (06:23→17:54)
[2017-01-01] MEDS: INSULIN DETEMIR 100 UNITS/ML MDV SQ SCH ×2 (06:26→17:53)
[2017-01-01] MEDS: LEVOTHYROXINE NA 100 MCG TABLET (FP) PO SCH (06:28)
[2017-01-01] MEDS: CALCIUM ACETATE 667 MG CAPSULE (FP) PO SCH ×3 (08:27→17:54)
[2017-01-01 08:34] LABS: INR 1.56 (0.82-1.09); PROTHROMBIN TIME (PATIENT) 17.3 SEC (9.98-11.88)
--- NOTE | 2017-01-01 09:50 | PN ---
Progress Note, Physician Chief Complaint: s/p excisional biopsy of left breast wound Left fingertip wound debridement Plastic surgeon follow up noted On Heparin infusion C/O abd pain -- more like indigestion- no nausea Had bm today - Current Medication List Current Medications: Active Medications Acetaminophen (Tylenol -) 650 mg PO Q4H PRN PRN Reason: PAIN LEVEL 6-10 Stop: 01/02/17 12:51 Last Admin: 12/31/16 17:48 Dose: 650 mg Acetaminophen (Tylenol -) 650 mg PO Q6H PRN PRN Reason: PAIN Last Admin: 12/31/16 07:03 Dose: 650 mg Bacitracin (Bacitracin -) 1 applic TP BID [facility] Last Admin: 12/31/16 21:07 Dose: 1 applic Bisacodyl (Dulcolax -) 5 mg PO DAILY PRN PRN Reason: CONSTIPATION Last Admin: 12/31/16 21:27 Dose: 5 mg Calamine (Calamine 8% Topical Lotion -) 1 applic TP QID PRN PRN Reason: FOR ITCHING Calcium Acetate (Phoslo -) 667 mg PO TIDCM [facility] Last Admin: 01/01/17 08:27 Dose: 667 mg Diphenhydramine HCl (Benadryl -) 25 mg PO Q6H PRN PRN Reason: FOR ITCHING Heparin Sodium (Porcine) (Heparin -) 5,000 unit IVPUSH PRN PRN PRN Reason: Heparin Last Admin: 01/01/17 04:11 Dose: 5,000 unit Heparin Sodium (Porcine) (Heparin -) 1,000 unit IVPUSH PRN PRN PRN Reason: Heparin Heparin Sodium (Porcine) 25, (000 unit/ Sodium Chloride) 500 mls @ 20 mls/hr IV TITR YOAN; 1,000 UNIT/HR PRN Reason: Protocol Last Admin: 01/01/17 04:15 Dose: 23 mls/hr Insulin Aspart (Novolog Vial Sliding Scale -) 1 vial SQ ACHS [facility] PRN Reason: Protocol Last Admin: 01/01/17 06:23 Dose: Not Given Insulin Detemir (Levemir Vial) 20 units SQ BIDI [facility] Last Admin: 01/01/17 06:26 Dose: 20 units Levothyroxine Sodium (Synthroid -) 200 mcg PO AM [facility] Last Admin: 01/01/17 06:28 Dose: 200 mcg Metoprolol Succinate (Toprol Xl -) 12.5 mg PO DAILY [facility] Last Admin: 12/31/16 09:19 Dose: 12.5 mg Oxycodone HCl (Roxicodone -) 10 mg PO Q4H PRN PRN Reason: PAIN LEVEL 6-10 Last Admin: 12/30/16 22:16 Dose: 5 mg Pantoprazole Sodium (Protonix -) 40 mg PO DAILY [facility] Last Admin: 12/31/16 09:18 Dose: 40 mg Polyethylene Glycol (Miralax (For Daily Use) -) 17 gm PO DAILY PRN Senna (Senna -) 2 tab PO HS PRN PRN Reason: CONSTIPATION Simethicone (Mylicon -) 80 mg PO QID PRN PRN Reason: GAS Sodium Hypochlorite (Dakin's Solution 0.5% (Full Strength) -) 1 applic TP BID [facility] Last Admin: 12/31/16 21:18 Dose: 1 applic Tramadol HCl (Ultram -) 50 mg PO Q8H PRN PRN Reason: PAIN Last Admin: 12/31/16 21:20 Dose: 50 mg Warfarin Sodium (Coumadin -) 5 mg PO DAILY@1800 [facility] Last Admin: 12/31/16 17:49 Dose: 5 mg - Objective Vital Signs: Vital Signs Temperature 97.8 F 01/01/17 06:35 Pulse Rate 103 H 01/01/17 06:35 Respiratory Rate 18 01/01/17 06:35 Blood Pressure 135/64 01/01/17 06:35 O2 Sat by Pulse Oximetry (%) 96 12/31/16 21:00 Constitutional: Yes: No Distress, Calm Cardiovascular: Yes: Regular Rate and Rhythm Respiratory: Yes: CTA Bilaterally Gastrointestinal: Yes: Normal Bowel Sounds, Soft. No: Distention, Tenderness Breast(s): Yes: Left (dressing in place) Extremities: Yes: Other (left finger- dressing) Edema: No Labs: CBC, BMP 12/31/16 07:00 12/31/16 05:35 INR, PTT INR 1.56 (0.82-1.09) H 01/01/17 06:20 Problem List - Problems (1) Atrial fibrillation Code(s): I48.91 - UNSPECIFIED ATRIAL FIBRILLATION Qualifiers: Atrial fibrillation type: unspecified Qualified Code(s): I48.91 - Unspecified atrial fibrillation (2) Breast abscess Code(s): N61.1 - ABSCESS OF THE BREAST AND NIPPLE (3) CAD (coronary artery disease) Code(s): I25.10 - ATHSCL HEART DISEASE OF [place] CORONARY ARTERY W/O ANG PCTRS Qualifiers: Coronary Disease-Associated Artery/Lesion type: [place] artery [place] vs. transplanted heart: [place] heart Associated angina: without angina Qualified Code(s): I25.10 - Atherosclerotic heart disease of [place] coronary artery without angina pectoris (4) ESRD on hemodialysis Code(s): N18.6 - END STAGE RENAL DISEASE Z99.2 - DEPENDENCE ON RENAL DIALYSIS (5) HTN (hypertension) Code(s): I10 - ESSENTIAL (PRIMARY) HYPERTENSION Qualifiers: Hypertension type: essential hypertension Qualified Code(s): I10 - Essential (primary) hypertension Assessment/Plan PLAN Heparin infusion resumed received Coumadin yesterday INR subtherapeutic monitor CBC rate controlled continue with meds dressing changes per Surgery
[2017-01-01] MEDS: BACITRACIN 15 GM TUBE TOPICAL OINTMENT TP SCH ×2 (10:06→22:31)
[2017-01-01] MEDS: SODIUM HYPOCHLORITE 0.5% 473 ML- BULK BOTTLE TP SCH ×2 (10:07→22:00)
[2017-01-01] MEDS: PANTOPRAZOLE 40 MG TABLET (FP) PO SCH (10:14)
[2017-01-01] MEDS: METOPROLOL SUCCINATE 25 MG TAB.SR.24H (FP) PO SCH (10:14)
--- NOTE | 2017-01-01 10:54 | PN ---
Progress Note (short form) - Note Progress Note: Renal Follow up for ESRD on HD Pt seen and examined at the bedside no acute complaints s/p dialysis yesterday Vital Signs Temperature 97.8 F 01/01/17 06:35 Pulse Rate 103 H 01/01/17 06:35 Respiratory Rate 18 01/01/17 06:35 Blood Pressure 135/64 01/01/17 06:35 O2 Sat by Pulse Oximetry (%) 96 12/31/16 21:00 Intake & Output 12/29/16 12/30/16 12/31/16 01/01/17 23:59 23:59 23:59 23:59 Intake Total 586 1194 70 140 Output Total 1005 Balance 586 189 70 140 Weight 202 lb 0.8 oz 196 lb 0.4 oz 204 lb 190 lb 9.6 oz Gen: NAD, awake and alert CVS: RRR, No M/R Lungs: CTA, no rales or wheeze Abd:soft NT/ND Ext: B/L LE amputations Breast: Dressing in place CBC, BMP 12/31/16 07:00 12/31/16 05:35 Laboratory Tests 12/31/16 05:35 Calcium 8.8 Albumin 2.5 L Current Medications Acetaminophen (Tylenol -) 650 mg PO Q4H PRN PRN Reason: PAIN LEVEL 6-10 Stop: 01/02/17 12:51 Last Admin: 12/31/16 17:48 Dose: 650 mg Acetaminophen (Tylenol -) 650 mg PO Q6H PRN PRN Reason: PAIN Last Admin: 12/31/16 07:03 Dose: 650 mg Bacitracin (Bacitracin -) 1 applic TP BID [facility] Last Admin: 01/01/17 10:06 Dose: 1 applic Bisacodyl (Dulcolax -) 5 mg PO DAILY PRN PRN Reason: CONSTIPATION Last Admin: 12/31/16 21:27 Dose: 5 mg Calamine (Calamine 8% Topical Lotion -) 1 applic TP QID PRN PRN Reason: FOR ITCHING Calcium Acetate (Phoslo -) 667 mg PO TIDCM [facility] Last Admin: 01/01/17 08:27 Dose: 667 mg Diphenhydramine HCl (Benadryl -) 25 mg PO Q6H PRN PRN Reason: FOR ITCHING Heparin Sodium (Porcine) (Heparin -) 5,000 unit IVPUSH PRN PRN PRN Reason: Heparin Last Admin: 01/01/17 04:11 Dose: 5,000 unit Heparin Sodium (Porcine) (Heparin -) 1,000 unit IVPUSH PRN PRN PRN Reason: Heparin Heparin Sodium (Porcine) 25, (000 unit/ Sodium Chloride) 500 mls @ 20 mls/hr IV TITR YOAN; 1,000 UNIT/HR PRN Reason: Protocol Last Admin: 01/01/17 04:15 Dose: 23 mls/hr Insulin Aspart (Novolog Vial Sliding Scale -) 1 vial SQ ACHS [facility] PRN Reason: Protocol Last Admin: 01/01/17 06:23 Dose: Not Given Insulin Detemir (Levemir Vial) 20 units SQ BIDI [facility] Last Admin: 01/01/17 06:26 Dose: 20 units Levothyroxine Sodium (Synthroid -) 200 mcg PO AM [facility] Last Admin: 01/01/17 06:28 Dose: 200 mcg Metoprolol Succinate (Toprol Xl -) 12.5 mg PO DAILY [facility] Last Admin: 01/01/17 10:14 Dose: 12.5 mg Oxycodone HCl (Roxicodone -) 10 mg PO Q4H PRN PRN Reason: PAIN LEVEL 6-10 Last Admin: 12/30/16 22:16 Dose: 5 mg Pantoprazole Sodium (Protonix -) 40 mg PO DAILY [facility] Last Admin: 01/01/17 10:14 Dose: 40 mg Polyethylene Glycol (Miralax (For Daily Use) -) 17 gm PO DAILY PRN Senna (Senna -) 2 tab PO HS PRN PRN Reason: CONSTIPATION Simethicone (Mylicon -) 80 mg PO QID PRN PRN Reason: GAS Sodium Hypochlorite (Dakin's Solution 0.5% (Full Strength) -) 1 applic TP BID [facility] Last Admin: 01/01/17 10:07 Dose: 1 applic Tramadol HCl (Ultram -) 50 mg PO Q8H PRN PRN Reason: PAIN Last Admin: 12/31/16 21:20 Dose: 50 mg Warfarin Sodium (Coumadin -) 5 mg PO DAILY@1800 [facility] Last Admin: 12/31/16 17:49 Dose: 5 mg A/P 71 year old woman with PMhx of ESRD on HD (MWF), CAD s/p PCI and stenting, DM Type 2 on insulin, PVD s/p Multiple amputations, Multiple failed dialysis accesses s/p recent HERO graft infection presents after being found to have new onset Afib by Cardiology. #Breast Wound s/p Debridement wound care Surgical follow up f/u pathology #ESRD on HD no acute indication for dialysis today 1.2L fluid restriction #New onset Afib on Heparin and Coumadin now Cardiology following #CAD ASA continued as per cardiology #Hypertension BP improved with UF with dialysis Wan Cruz DO
[2017-01-01] MEDS ORDERED: INSULIN (NOVOLOG) ASPART 100 UNITS/ML 10ML VIAL ONE (11:20)
[2017-01-01] MEDS ORDERED: PT OWN MED DRAWER 7, Y5N ONE ×2 (11:20→20:48)
[2017-01-01] MEDS: SIMETHICONE 80 MG TAB.CHEW (FP) PO PRN (11:24)
[2017-01-01] MEDS: diphenhydrAMINE HCL 25 MG CAPSULE (FP) PO PRN ×2 (14:40→23:12)
[2017-01-01] MEDS: WARFARIN NA 5 MG TABLET (UD) PO SCH (17:55)
--- NOTE | 2017-01-01 19:46 | PN ---
Progress Note, Physician History of Present Illness: No chest pain, dyspnea, post left breast and ring finger debridement. - Current Medication List Current Medications: Active Medications Acetaminophen (Tylenol -) 650 mg PO Q4H PRN PRN Reason: PAIN LEVEL 6-10 Stop: 01/02/17 12:51 Last Admin: 12/31/16 17:48 Dose: 650 mg Acetaminophen (Tylenol -) 650 mg PO Q6H PRN PRN Reason: PAIN Last Admin: 12/31/16 07:03 Dose: 650 mg Bacitracin (Bacitracin -) 1 applic TP BID [facility] Last Admin: 01/01/17 10:06 Dose: 1 applic Bisacodyl (Dulcolax -) 5 mg PO DAILY PRN PRN Reason: CONSTIPATION Last Admin: 12/31/16 21:27 Dose: 5 mg Calamine (Calamine 8% Topical Lotion -) 1 applic TP QID PRN PRN Reason: FOR ITCHING Calcium Acetate (Phoslo -) 667 mg PO TIDCM [facility] Last Admin: 01/01/17 17:54 Dose: 667 mg Diphenhydramine HCl (Benadryl -) 25 mg PO Q6H PRN PRN Reason: FOR ITCHING Last Admin: 01/01/17 14:40 Dose: 25 mg Heparin Sodium (Porcine) (Heparin -) 5,000 unit IVPUSH PRN PRN PRN Reason: Heparin Last Admin: 01/01/17 04:11 Dose: 5,000 unit Heparin Sodium (Porcine) (Heparin -) 1,000 unit IVPUSH PRN PRN PRN Reason: Heparin Heparin Sodium (Porcine) 25, (000 unit/ Sodium Chloride) 500 mls @ 20 mls/hr IV TITR YOAN; 1,000 UNIT/HR PRN Reason: Protocol Last Titration: 01/01/17 12:50 Dose: 1,150 unit/hr Insulin Aspart (Novolog Vial Sliding Scale -) 1 vial SQ BIDAC [facility] PRN Reason: Protocol Last Admin: 01/01/17 17:54 Dose: Not Given Insulin Detemir (Levemir Vial) 20 units SQ BIDI [facility] Last Admin: 01/01/17 17:53 Dose: 20 units Levothyroxine Sodium (Synthroid -) 200 mcg PO AM [facility] Last Admin: 01/01/17 06:28 Dose: 200 mcg Metoprolol Succinate (Toprol Xl -) 12.5 mg PO DAILY [facility] Last Admin: 01/01/17 10:14 Dose: 12.5 mg Oxycodone HCl (Roxicodone -) 10 mg PO Q4H PRN PRN Reason: PAIN LEVEL 6-10 Last Admin: 12/30/16 22:16 Dose: 5 mg Pantoprazole Sodium (Protonix -) 40 mg PO DAILY [facility] Last Admin: 01/01/17 10:14 Dose: 40 mg Polyethylene Glycol (Miralax (For Daily Use) -) 17 gm PO DAILY PRN Senna (Senna -) 2 tab PO HS PRN PRN Reason: CONSTIPATION Simethicone (Mylicon -) 80 mg PO QID PRN PRN Reason: GAS Last Admin: 01/01/17 11:24 Dose: 80 mg Sodium Hypochlorite (Dakin's Solution 0.5% (Full Strength) -) 1 applic TP BID [facility] Last Admin: 01/01/17 10:07 Dose: 1 applic Tramadol HCl (Ultram -) 50 mg PO Q8H PRN PRN Reason: PAIN Last Admin: 12/31/16 21:20 Dose: 50 mg Warfarin Sodium (Coumadin -) 5 mg PO DAILY@1800 [facility] Last Admin: 01/01/17 17:55 Dose: 5 mg - Objective Vital Signs: Vital Signs Temperature 98.9 F 01/01/17 15:33 Pulse Rate 112 H 01/01/17 15:33 Respiratory Rate 18 01/01/17 15:33 Blood Pressure 147/62 01/01/17 15:33 O2 Sat by Pulse Oximetry (%) 95 01/01/17 09:00 Constitutional: Yes: No Distress, Calm Neck: Yes: Supple Cardiovascular: Yes: Pulse Irregular Respiratory: Yes: Regular, Diminished Gastrointestinal: Yes: Normal Bowel Sounds, Soft Extremities: Yes: Amputation Edema: No Labs: CBC, BMP 12/31/16 07:00 12/31/16 05:35 INR, PTT INR 1.56 (0.82-1.09) H 01/01/17 06:20 Problem List - Problems (1) Atrial fibrillation Code(s): I48.91 - UNSPECIFIED ATRIAL FIBRILLATION Qualifiers: Atrial fibrillation type: unspecified Qualified Code(s): I48.91 - Unspecified atrial fibrillation (2) CAD (coronary artery disease) Code(s): I25.10 - ATHSCL HEART DISEASE OF [place] CORONARY ARTERY W/O ANG PCTRS Qualifiers: Coronary Disease-Associated Artery/Lesion type: [place] artery [place] vs. transplanted heart: [place] heart Associated angina: without angina Qualified Code(s): I25.10 - Atherosclerotic heart disease of [place] coronary artery without angina pectoris (3) ESRD on hemodialysis Code(s): N18.6 - END STAGE RENAL DISEASE Z99.2 - DEPENDENCE ON RENAL DIALYSIS (4) HTN (hypertension) Code(s): I10 - ESSENTIAL (PRIMARY) HYPERTENSION Qualifiers: Hypertension type: essential hypertension Qualified Code(s): I10 - Essential (primary) hypertension (5) History of percutaneous coronary intervention Code(s): Z98.890 - OTHER SPECIFIED POSTPROCEDURAL STATES (6) Hypercholesterolemia Code(s): E78.00 - PURE HYPERCHOLESTEROLEMIA, UNSPECIFIED (7) Diabetes Code(s): E11.9 - TYPE 2 DIABETES MELLITUS WITHOUT COMPLICATIONS Qualifiers: Diabetes mellitus type: type 1 Diabetes mellitus complication status: with circulatory complication Diabetes mellitus complication detail: with other circulatory complications Qualified Code(s): E10.59 - Type 1 diabetes mellitus with other circulatory complications Assessment/Plan 1. New onset atrial fibrillation rate-controlled with subtherapeutic INR 2. CAD s/p multi-vessel PCI, angina pectoris 3. PVD s/p right AKA and left TMA 4. LV diastolic dysfunction 5. ESRD on HD - via permacath 6. Infected AVG 7. Insulin requiring diabetes mellitus 8. HTN/HCVD 9. Hypercholesterolemia 10. Hypothyroidism 11. Post left breast and finger debridement PLAN: 1. Heparin drip->coumadin per INR. Not an ideal candidate for NOAC in view of ESRD 2. Continue Metoprolol 12.5 qd 3. Wound care recs per surgery 4. HD as per protocol
[2017-01-01] MEDS: traMADol HCL 50 MG TABLET PO PRN (20:56)
[2017-01-02] MEDS: INSULIN DETEMIR 100 UNITS/ML MDV SQ SCH ×2 (06:31→18:01)
[2017-01-02] MEDS: LEVOTHYROXINE NA 100 MCG TABLET (FP) PO SCH (06:32)
[2017-01-02] MEDS ORDERED: INSULIN (NOVOLOG) ASPART 100 UNITS/ML 10ML VIAL ONE (07:44)
[2017-01-02] MEDS ORDERED: INSULIN DETEMIR 100 UNITS/ML MDV SQ ONE (07:44)
[2017-01-02] MEDS: INSULIN SLIDING SCALE (NOVOLOG) 1 VIAL SQ SCH ×2 (07:57→18:02)
[2017-01-02 08:15] LABS: BASOPHIL 0.9 % (0-2.0); EOSINOPHIL 2.7 % (0-4.5); MCH 29.2 pg (25.7-33.7); MCHC 32.2 g/dl (32.0-36.0); MEAN CELL VOLUME 90.7 fl (80-96); MEAN PLT VOLUME 8.2 fl (7.5-11.1); NEUTROPHILS 66.4 % (42.8-82.8); PLATELET COUNT 285 K/MM3 (134-434); RDW 16.1 % (11.6-15.6); WHITE BLOOD COUNT 10.5 K/mm3 (4.0-10.0)
--- NOTE | 2017-01-02 08:19 | PN ---
Progress Note, Physician Chief Complaint: s/p excisional biopsy of left breast wound Left fingertip wound debridement Plastic surgeon follow up noted On Heparin infusion no C/O abd pain Had bm today - Current Medication List Current Medications: Active Medications Acetaminophen (Tylenol -) 650 mg PO Q4H PRN PRN Reason: PAIN LEVEL 6-10 Stop: 01/02/17 12:51 Last Admin: 12/31/16 17:48 Dose: 650 mg Acetaminophen (Tylenol -) 650 mg PO Q6H PRN PRN Reason: PAIN Last Admin: 12/31/16 07:03 Dose: 650 mg Bacitracin (Bacitracin -) 1 applic TP BID [facility] Last Admin: 01/01/17 22:31 Dose: 1 applic Bisacodyl (Dulcolax -) 5 mg PO DAILY PRN PRN Reason: CONSTIPATION Last Admin: 12/31/16 21:27 Dose: 5 mg Calamine (Calamine 8% Topical Lotion -) 1 applic TP QID PRN PRN Reason: FOR ITCHING Calcium Acetate (Phoslo -) 667 mg PO TIDCM [facility] Last Admin: 01/01/17 17:54 Dose: 667 mg Diphenhydramine HCl (Benadryl -) 25 mg PO Q6H PRN PRN Reason: FOR ITCHING Last Admin: 01/01/17 23:12 Dose: 25 mg Heparin Sodium (Porcine) (Heparin -) 5,000 unit IVPUSH PRN PRN PRN Reason: Heparin Last Admin: 01/01/17 04:11 Dose: 5,000 unit Heparin Sodium (Porcine) (Heparin -) 1,000 unit IVPUSH PRN PRN PRN Reason: Heparin Heparin Sodium (Porcine) 25, (000 unit/ Sodium Chloride) 500 mls @ 20 mls/hr IV TITR YOAN; 1,000 UNIT/HR PRN Reason: Protocol Last Admin: 01/01/17 20:49 Dose: 23 mls/hr Insulin Aspart (Novolog Vial Sliding Scale -) 1 vial SQ BIDAC [facility] PRN Reason: Protocol Last Admin: 01/02/17 07:57 Dose: Not Given Insulin Detemir (Levemir Vial) 20 units SQ BIDI [facility] Last Admin: 01/02/17 06:31 Dose: Not Given Levothyroxine Sodium (Synthroid -) 200 mcg PO AM [facility] Last Admin: 01/02/17 06:32 Dose: 200 mcg Metoprolol Succinate (Toprol Xl -) 12.5 mg PO DAILY [facility] Last Admin: 01/01/17 10:14 Dose: 12.5 mg Oxycodone HCl (Roxicodone -) 10 mg PO Q4H PRN PRN Reason: PAIN LEVEL 6-10 Last Admin: 12/30/16 22:16 Dose: 5 mg Pantoprazole Sodium (Protonix -) 40 mg PO DAILY [facility] Last Admin: 01/01/17 10:14 Dose: 40 mg Polyethylene Glycol (Miralax (For Daily Use) -) 17 gm PO DAILY PRN Senna (Senna -) 2 tab PO HS PRN PRN Reason: CONSTIPATION Simethicone (Mylicon -) 80 mg PO QID PRN PRN Reason: GAS Last Admin: 01/01/17 11:24 Dose: 80 mg Sodium Hypochlorite (Dakin's Solution 0.5% (Full Strength) -) 1 applic TP BID [facility] Last Admin: 01/01/17 22:00 Dose: 1 applic Tramadol HCl (Ultram -) 50 mg PO Q8H PRN PRN Reason: PAIN Last Admin: 01/01/17 20:56 Dose: 50 mg Warfarin Sodium (Coumadin -) 5 mg PO DAILY@1800 [facility] Last Admin: 01/01/17 17:55 Dose: 5 mg - Objective Vital Signs: Vital Signs Temperature 98.8 F 01/02/17 06:50 Pulse Rate 98 H 01/02/17 06:50 Respiratory Rate 20 01/02/17 06:50 Blood Pressure 168/60 01/02/17 06:50 O2 Sat by Pulse Oximetry (%) 95 01/01/17 21:00 Constitutional: Yes: No Distress Cardiovascular: Yes: Pulse Irregular Respiratory: Yes: CTA Bilaterally Gastrointestinal: Yes: Normal Bowel Sounds, Soft. No: Tenderness Edema: No Labs: CBC, BMP 12/31/16 05:35 INR, PTT INR 1.56 (0.82-1.09) H 01/01/17 06:20 Problem List - Problems (1) Atrial fibrillation Code(s): I48.91 - UNSPECIFIED ATRIAL FIBRILLATION Qualifiers: Atrial fibrillation type: unspecified Qualified Code(s): I48.91 - Unspecified atrial fibrillation (2) Breast abscess Code(s): N61.1 - ABSCESS OF THE BREAST AND NIPPLE (3) CAD (coronary artery disease) Code(s): I25.10 - ATHSCL HEART DISEASE OF [place] CORONARY ARTERY W/O ANG PCTRS Qualifiers: Coronary Disease-Associated Artery/Lesion type: [place] artery [place] vs. transplanted heart: [place] heart Associated angina: without angina Qualified Code(s): I25.10 - Atherosclerotic heart disease of [place] coronary artery without angina pectoris (4) ESRD on hemodialysis Code(s): N18.6 - END STAGE RENAL DISEASE Z99.2 - DEPENDENCE ON RENAL DIALYSIS (5) HTN (hypertension) Code(s): I10 - ESSENTIAL (PRIMARY) HYPERTENSION Qualifiers: Hypertension type: essential hypertension Qualified Code(s): I10 - Essential (primary) hypertension Assessment/Plan PLAN Hold Coumadin tonight-- INR supratherapeutic PT eval dc planning monitor CBC rate controlled continue with meds dressing changes per Surgery
[2017-01-02 08:25] LABS: INR 3.23 (0.82-1.09); PROTHROMBIN TIME (PATIENT) 36.4 SEC (9.98-11.88)
[2017-01-02] MEDS: CALCIUM ACETATE 667 MG CAPSULE (FP) PO SCH ×3 (08:47→17:58)
[2017-01-02] MEDS: SODIUM HYPOCHLORITE 0.5% 473 ML- BULK BOTTLE TP SCH ×2 (11:08→22:00)
[2017-01-02] MEDS: BACITRACIN 15 GM TUBE TOPICAL OINTMENT TP SCH ×2 (11:08→22:16)
[2017-01-02] MEDS: METOPROLOL SUCCINATE 25 MG TAB.SR.24H (FP) PO SCH (11:11)
[2017-01-02] MEDS: PANTOPRAZOLE 40 MG TABLET (FP) PO SCH (11:11)
--- NOTE | 2017-01-02 12:01 | PN ---
Progress Note, Physician History of Present Illness: No complaints post left breast and ring finger debridement. - Current Medication List Current Medications: Active Medications Acetaminophen (Tylenol -) 650 mg PO Q4H PRN PRN Reason: PAIN LEVEL 6-10 Stop: 01/02/17 12:51 Last Admin: 12/31/16 17:48 Dose: 650 mg Acetaminophen (Tylenol -) 650 mg PO Q6H PRN PRN Reason: PAIN Last Admin: 12/31/16 07:03 Dose: 650 mg Bacitracin (Bacitracin -) 1 applic TP BID [facility] Last Admin: 01/02/17 11:08 Dose: 1 applic Bisacodyl (Dulcolax -) 5 mg PO DAILY PRN PRN Reason: CONSTIPATION Last Admin: 12/31/16 21:27 Dose: 5 mg Calamine (Calamine 8% Topical Lotion -) 1 applic TP QID PRN PRN Reason: FOR ITCHING Calcium Acetate (Phoslo -) 667 mg PO TIDCM [facility] Last Admin: 01/02/17 08:47 Dose: 667 mg Diphenhydramine HCl (Benadryl -) 25 mg PO Q6H PRN PRN Reason: FOR ITCHING Last Admin: 01/01/17 23:12 Dose: 25 mg Insulin Aspart (Novolog Vial Sliding Scale -) 1 vial SQ BIDAC [facility] PRN Reason: Protocol Last Admin: 01/02/17 07:57 Dose: Not Given Insulin Detemir (Levemir Vial) 20 units SQ BIDI [facility] Last Admin: 01/02/17 06:31 Dose: Not Given Levothyroxine Sodium (Synthroid -) 200 mcg PO AM [facility] Last Admin: 01/02/17 06:32 Dose: 200 mcg Metoprolol Succinate (Toprol Xl -) 12.5 mg PO DAILY [facility] Last Admin: 01/02/17 11:11 Dose: 12.5 mg Oxycodone HCl (Roxicodone -) 10 mg PO Q4H PRN PRN Reason: PAIN LEVEL 6-10 Last Admin: 12/30/16 22:16 Dose: 5 mg Pantoprazole Sodium (Protonix -) 40 mg PO DAILY [facility] Last Admin: 01/02/17 11:11 Dose: 40 mg Polyethylene Glycol (Miralax (For Daily Use) -) 17 gm PO DAILY PRN Senna (Senna -) 2 tab PO HS PRN PRN Reason: CONSTIPATION Simethicone (Mylicon -) 80 mg PO QID PRN PRN Reason: GAS Last Admin: 01/01/17 11:24 Dose: 80 mg Sodium Hypochlorite (Dakin's Solution 0.5% (Full Strength) -) 1 applic TP BID [facility] Last Admin: 01/02/17 11:08 Dose: 1 applic Tramadol HCl (Ultram -) 50 mg PO Q8H PRN PRN Reason: PAIN Last Admin: 01/01/17 20:56 Dose: 50 mg - Objective Vital Signs: Vital Signs Temperature 98.8 F 01/02/17 06:50 Pulse Rate 98 H 01/02/17 06:50 Respiratory Rate 20 01/02/17 06:50 Blood Pressure 168/60 01/02/17 06:50 O2 Sat by Pulse Oximetry (%) 95 01/01/17 21:00 Constitutional: Yes: No Distress, Calm Neck: Yes: Supple Cardiovascular: Yes: Pulse Irregular Respiratory: Yes: Regular, Diminished Gastrointestinal: Yes: Normal Bowel Sounds, Soft Edema: No Labs: CBC, BMP 01/02/17 06:30 12/31/16 05:35 INR, PTT INR 3.23 (0.82-1.09) H D 01/02/17 06:30 Problem List - Problems (1) Atrial fibrillation Code(s): I48.91 - UNSPECIFIED ATRIAL FIBRILLATION Qualifiers: Atrial fibrillation type: unspecified Qualified Code(s): I48.91 - Unspecified atrial fibrillation (2) CAD (coronary artery disease) Code(s): I25.10 - ATHSCL HEART DISEASE OF [place] CORONARY ARTERY W/O ANG PCTRS Qualifiers: Coronary Disease-Associated Artery/Lesion type: [place] artery [place] vs. transplanted heart: [place] heart Associated angina: without angina Qualified Code(s): I25.10 - Atherosclerotic heart disease of [place] coronary artery without angina pectoris (3) ESRD on hemodialysis Code(s): N18.6 - END STAGE RENAL DISEASE Z99.2 - DEPENDENCE ON RENAL DIALYSIS (4) HTN (hypertension) Code(s): I10 - ESSENTIAL (PRIMARY) HYPERTENSION Qualifiers: Hypertension type: essential hypertension Qualified Code(s): I10 - Essential (primary) hypertension (5) History of percutaneous coronary intervention Code(s): Z98.890 - OTHER SPECIFIED POSTPROCEDURAL STATES (6) Hypercholesterolemia Code(s): E78.00 - PURE HYPERCHOLESTEROLEMIA, UNSPECIFIED (7) Diabetes Code(s): E11.9 - TYPE 2 DIABETES MELLITUS WITHOUT COMPLICATIONS Qualifiers: Diabetes mellitus type: type 1 Diabetes mellitus complication status: with circulatory complication Diabetes mellitus complication detail: with other circulatory complications Qualified Code(s): E10.59 - Type 1 diabetes mellitus with other circulatory complications Assessment/Plan 1. New onset atrial fibrillation rate-controlled with therapeutic INR 2. CAD s/p multi-vessel PCI, angina pectoris 3. PVD s/p right AKA and left TMA 4. LV diastolic dysfunction 5. ESRD on HD - via permacath 6. Infected AVG 7. Insulin requiring diabetes mellitus 8. HTN/HCVD, BP elevated 9. Hypercholesterolemia 10. Hypothyroidism 11. Post left breast and finger debridement PLAN: 1. Continue coumadin per INR. Not an ideal candidate for NOAC in view of ESRD 2. Increase Metoprolol XL 25 qd 3. Wound care recs per surgery 4. HD as per protocol
[2017-01-02] MEDS ORDERED: METOPROLOL SUCCINATE 25 MG TAB.SR.24H (FP) PO ONE (12:05)
--- NOTE | 2017-01-02 14:44 | PROC ---
Procedure Note Procedure: DATE OF SURGERY: 12/30/2016 PREOPERATIVE DIAGNOSIS: Left breast wound and left ring fingertip wound. POSTOPERATIVE DIAGNOSIS: Same. OPERATION: 1) Excisional debridement of left breast wound (6.0 x 10.0cm lesion with 1.0cm margins for total resection of 7.0 x 11.0cm). 2) Excisional debridement of left ring fingertip wound (0.5 x 0.5cm). SURGEON: Moreno Mckenna MD. ANESTHESIA: MAPS + 20cc of 1%lidocaine with 1:100,000 epinephrine (left breast) ; 6cc of plain 1% lidocaine to left ring finger. EBL: 2cc. COMPLICATIONS: None. SPECIMEN: Left breast wound (long stitch = lateral, short stitch = superior). INDICATIONS FOR PROCEDURE: Jinny Castillo is a 71 year old female with multiple medical problems (end stage renal disease on 3x/week hemodialysis, coronary artery disease on Plavix, diabetes, peripheral vascular occlusive disease, hypertension, and hypothyroidism) who presents to our office today for evaluation of left breast wounds. She states that these wounds started as small abrasions at some point in 07/2016, but they did not heal and steadily worsened. Dr. Ishaan Wiley of [facility] performed a surgical debridement of these wounds on 11/17/2016 in his office under local anesthetic. Reportedly, there were only wound cultures taken. There were no samples taken for histopathologic analsysis. The patient and her family were unhappy with the care they were receiving with Dr. Oquendo team. They sought a second opinion from my colleague Dr. Fabien Ram. He has referred this patient to my care. The patient denies any fever or chills. She has had no acute infectious symptoms. A preoperative mammogram did not reveal any suspicion of breast cancer. Given the patients multiple other significant medical problems, she has undergone over the week medical evaluation and optimization to maximize her chances at tolerating this surgery without complications. Specifically, she was found to be in atrial fibrillation this past week and has been hospitalized for heparin anticoagulation to be transitioned to warfarin after the surgical procedure today. The plan to leave the wound open today was based upon her proven inability to heal the previous debridement and primary closure. Furthermore, the highly contaminated nature of the current wound also led me to decide to allow this wound to heal secondarily. All risks, benefits, expected outcomes, alternatives, and potential complications of the surgery were again explained fully to the patient in the preoperative holding area. All questions were answered to the patient and her daughters satisfaction. Informed consent was then obtained, and the procedure was begun. DESCRIPTION OF PROCEDURE: A pre-procedural timeout was performed. Sedation anesthesia was begun by the Anesthesiology team. The surgical sites were prepped and draped in the usual sterile fashion. Local anesthetic was instilled into the operative site in the usual field block manner with the above-mentioned type and amount. A pre- incision timeout was performed. First, the wound was visualized. It was a 6.0 x 10.0cm open wound upon the left breast with necrotic, fibrinous subcutaneous tissue at the base. First, a #10 scalpel was used to excise the lesion with 1cm margins. Bovie electrocautery was used to excise around the wound keeping the 1cm margin intact throughout the tissue specimen. The specimen was marked (as detailed above) and passed off the field. After excision, the wound measured 7.0 x 11.0cm. The surgical wound bed was thoroughly pulse-irrigated with 1L normal saline solution. Hemostasis was achieved with Bovie electrocautery. The wound after debridement was clean subcutaneous tissue at the base with healthy, punctate bleeding tissues. Kerlix gauze moistened with 0.5% Dakins solution was used to pack the wound in a wet- to-dry fashion, covered by ABD pads. Now, the left ring fingertip was addressed with a new set of instruments. The wound was visualized to be a 0.5 x 0.5 cm dry eschar. A #15 scalpel was used to excise the eschar and underlying necrotic subcutaneous tissue. The wound at the completion of debridement was a 0.5 x 0.5 x 0.5cm open and clean wound with punctate bleeding from subcutaneous tissue at the base. This wound was similarly packed with Kerlix gauze moistened with 0.5% Dakins solution. The patient tolerated the procedure well without complication to the procedure or the anesthetic. The sponge, needle, and instrument counts were correct at the end of the case times two. She was awakened from anesthesia and taken to the recovery room in stable condition. I communicated to the primary team that it would be acceptable to restart anticoagulation in 24 hours. I will do the first dressing change in approximately [address] Moreno Mckenna was present for all cobb portions of this case.
[2017-01-02] MEDS: diphenhydrAMINE HCL 25 MG CAPSULE (FP) PO PRN ×2 (15:08→22:01)
[2017-01-02] MEDS: traMADol HCL 50 MG TABLET PO PRN (21:26)
[2017-01-02] MEDS: SENNOSIDES 8.6MG TABLET (FP) PO PRN (21:39)
[2017-01-03] MEDS: LEVOTHYROXINE NA 100 MCG TABLET (FP) PO SCH (06:16)
[2017-01-03] MEDS: INSULIN DETEMIR 100 UNITS/ML MDV SQ SCH ×2 (06:18→17:37)
[2017-01-03] MEDS: CALCIUM ACETATE 667 MG CAPSULE (FP) PO SCH ×3 (08:20→17:37)
[2017-01-03] MEDS: INSULIN SLIDING SCALE (NOVOLOG) 1 VIAL SQ SCH ×2 (08:21→17:38)
[2017-01-03 08:43] LABS: MCH 28.9 pg (25.7-33.7); MCHC 31.8 g/dl (32.0-36.0); MEAN CELL VOLUME 90.9 fl (80-96); MEAN PLT VOLUME 8.3 fl (7.5-11.1); PLATELET COUNT 304 K/MM3 (134-434); RDW 16.2 % (11.6-15.6); WHITE BLOOD COUNT 11.7 K/mm3 (4.0-10.0)
[2017-01-03 08:57] LABS: ALBUMIN 2.3 g/dl (3.4-5.0); CALCIUM 8.4 mg/dL (8.5-10.1)
[2017-01-03 09:05] LABS: BILIRUBIN,TOTAL 0.4 mg/dL (0.2-1.0); COCKROFT - GAULT 9.095; TOT PROT 5.9 g/dl (6.4-8.2)
[2017-01-03 09:09] LABS: INR 3.08 (0.82-1.09); PROTHROMBIN TIME (PATIENT) 34.7 SEC (9.98-11.88)
[2017-01-03 09:54] LABS: CREATININE 7.5 mg/dL (0.55-1.02)
[2017-01-03] MEDS: BACITRACIN 15 GM TUBE TOPICAL OINTMENT TP SCH ×2 (09:54→21:11)
[2017-01-03] MEDS: PANTOPRAZOLE 40 MG TABLET (FP) PO SCH ×2 (09:54→11:25)
[2017-01-03] MEDS: METOPROLOL SUCCINATE 25 MG TAB.SR.24H (FP) PO SCH ×2 (09:54→11:25)
[2017-01-03] MEDS: SODIUM HYPOCHLORITE 0.5% 473 ML- BULK BOTTLE TP SCH ×2 (09:54→21:11)
--- NOTE | 2017-01-03 10:02 | PN ---
Progress Note, Physician History of Present Illness: Seen on HD. No complaints post left breast and ring finger debridement. - Current Medication List Current Medications: Active Medications Acetaminophen (Tylenol -) 650 mg PO Q6H PRN PRN Reason: PAIN Last Admin: 12/31/16 07:03 Dose: 650 mg Bacitracin (Bacitracin -) 1 applic TP BID [facility] Last Admin: 01/03/17 09:54 Dose: Not Given Bisacodyl (Dulcolax -) 5 mg PO DAILY PRN PRN Reason: CONSTIPATION Last Admin: 12/31/16 21:27 Dose: 5 mg Calamine (Calamine 8% Topical Lotion -) 1 applic TP QID PRN PRN Reason: FOR ITCHING Calcium Acetate (Phoslo -) 667 mg PO TIDCM [facility] Last Admin: 01/03/17 08:20 Dose: Not Given Diphenhydramine HCl (Benadryl -) 25 mg PO Q6H PRN PRN Reason: FOR ITCHING Last Admin: 01/02/17 22:01 Dose: 25 mg Insulin Aspart (Novolog Vial Sliding Scale -) 1 vial SQ BIDAC [facility] PRN Reason: Protocol Last Admin: 01/03/17 08:21 Dose: Not Given Insulin Detemir (Levemir Vial) 20 units SQ BIDI [facility] Last Admin: 01/03/17 06:18 Dose: Not Given Levothyroxine Sodium (Synthroid -) 200 mcg PO AM [facility] Last Admin: 01/03/17 06:16 Dose: 200 mcg Metoprolol Succinate (Toprol Xl -) 25 mg PO DAILY [facility] Last Admin: 01/03/17 09:54 Dose: Not Given Oxycodone HCl (Roxicodone -) 10 mg PO Q4H PRN PRN Reason: PAIN LEVEL 6-10 Last Admin: 12/30/16 22:16 Dose: 5 mg Pantoprazole Sodium (Protonix -) 40 mg PO DAILY [facility] Last Admin: 01/03/17 09:54 Dose: Not Given Polyethylene Glycol (Miralax (For Daily Use) -) 17 gm PO DAILY PRN Senna (Senna -) 2 tab PO HS PRN PRN Reason: CONSTIPATION Last Admin: 01/02/17 21:39 Dose: 2 tab Simethicone (Mylicon -) 80 mg PO QID PRN PRN Reason: GAS Last Admin: 01/01/17 11:24 Dose: 80 mg Sodium Hypochlorite (Dakin's Solution 0.5% (Full Strength) -) 1 applic TP BID [facility] Last Admin: 01/03/17 09:54 Dose: Not Given Tramadol HCl (Ultram -) 50 mg PO Q8H PRN PRN Reason: PAIN Last Admin: 01/02/17 21:26 Dose: 50 mg - Objective Vital Signs: Vital Signs Temperature 98.3 F 01/03/17 07:46 Pulse Rate 98 H 01/03/17 09:50 Respiratory Rate 18 01/03/17 09:50 Blood Pressure 120/68 01/03/17 09:50 O2 Sat by Pulse Oximetry (%) 96 01/02/17 21:00 Constitutional: Yes: No Distress, Calm Neck: Yes: Supple Cardiovascular: Yes: Pulse Irregular Respiratory: Yes: Regular, Diminished Gastrointestinal: Yes: Normal Bowel Sounds, Soft Edema: No Labs: CBC, BMP 01/03/17 06:50 01/03/17 06:50 INR, PTT INR 3.08 (0.82-1.09) H 01/03/17 06:50 Problem List - Problems (1) Atrial fibrillation Code(s): I48.91 - UNSPECIFIED ATRIAL FIBRILLATION Qualifiers: Atrial fibrillation type: unspecified Qualified Code(s): I48.91 - Unspecified atrial fibrillation (2) CAD (coronary artery disease) Code(s): I25.10 - ATHSCL HEART DISEASE OF [place] CORONARY ARTERY W/O ANG PCTRS Qualifiers: Coronary Disease-Associated Artery/Lesion type: [place] artery [place] vs. transplanted heart: [place] heart Associated angina: without angina Qualified Code(s): I25.10 - Atherosclerotic heart disease of [place] coronary artery without angina pectoris (3) ESRD on hemodialysis Code(s): N18.6 - END STAGE RENAL DISEASE Z99.2 - DEPENDENCE ON RENAL DIALYSIS (4) HTN (hypertension) Code(s): I10 - ESSENTIAL (PRIMARY) HYPERTENSION Qualifiers: Hypertension type: essential hypertension Qualified Code(s): I10 - Essential (primary) hypertension (5) History of percutaneous coronary intervention Code(s): Z98.890 - OTHER SPECIFIED POSTPROCEDURAL STATES (6) Hypercholesterolemia Code(s): E78.00 - PURE HYPERCHOLESTEROLEMIA, UNSPECIFIED (7) Diabetes Code(s): E11.9 - TYPE 2 DIABETES MELLITUS WITHOUT COMPLICATIONS Qualifiers: Diabetes mellitus type: type 1 Diabetes mellitus complication status: with circulatory complication Diabetes mellitus complication detail: with other circulatory complications Qualified Code(s): E10.59 - Type 1 diabetes mellitus with other circulatory complications Assessment/Plan 1. New onset atrial fibrillation rate-controlled with therapeutic INR 2. CAD s/p multi-vessel PCI, angina pectoris 3. PVD s/p right AKA and left TMA 4. LV diastolic dysfunction 5. ESRD on HD - via permacath 6. Infected AVG 7. Insulin requiring diabetes mellitus 8. HTN/HCVD, BP elevated 9. Hypercholesterolemia 10. Hypothyroidism 11. Post left breast and finger debridement PLAN: 1. Continue coumadin per INR. Not an ideal candidate for NOAC in view of ESRD 2. Continue Metoprolol XL 25 qd 3. Wound care recs per surgery 4. HD as per protocol, d/c planning
--- NOTE | 2017-01-03 10:08 | PN ---
Progress Note (short form) - Note Progress Note: Renal Follow up for ESRD on HD Pt seen and examined during dialysis BP stable, access functionnig well pt with some clotting in filtter no chest pain or sob no pain at debridemetn site Vital Signs Temperature 98.3 F 01/03/17 07:46 Pulse Rate 98 H 01/03/17 09:50 Respiratory Rate 18 01/03/17 09:50 Blood Pressure 120/68 01/03/17 09:50 O2 Sat by Pulse Oximetry (%) 96 01/02/17 21:00 Intake & Output 12/31/16 01/01/17 01/02/17 01/03/17 23:59 23:59 23:59 23:59 Intake Total 70 776 475 Balance 70 776 475 Weight 204 lb 190 lb 9.6 oz 190 lb 3 oz Gen: NAD, awake and alert CVS: RRR, No M/R Lungs: CTA, no rales or wheeze Abd:soft NT/ND Ext: B/L LE amputations Breast: Dressing in place CBC, BMP 01/03/17 06:50 01/03/17 06:50 Current Medications Acetaminophen (Tylenol -) 650 mg PO Q6H PRN PRN Reason: PAIN Last Admin: 12/31/16 07:03 Dose: 650 mg Bacitracin (Bacitracin -) 1 applic TP BID [facility] Last Admin: 01/03/17 09:54 Dose: Not Given Bisacodyl (Dulcolax -) 5 mg PO DAILY PRN PRN Reason: CONSTIPATION Last Admin: 12/31/16 21:27 Dose: 5 mg Calamine (Calamine 8% Topical Lotion -) 1 applic TP QID PRN PRN Reason: FOR ITCHING Calcium Acetate (Phoslo -) 667 mg PO TIDCM [facility] Last Admin: 01/03/17 08:20 Dose: Not Given Diphenhydramine HCl (Benadryl -) 25 mg PO Q6H PRN PRN Reason: FOR ITCHING Last Admin: 01/02/17 22:01 Dose: 25 mg Insulin Aspart (Novolog Vial Sliding Scale -) 1 vial SQ BIDAC [facility] PRN Reason: Protocol Last Admin: 01/03/17 08:21 Dose: Not Given Insulin Detemir (Levemir Vial) 20 units SQ BIDI [facility] Last Admin: 01/03/17 06:18 Dose: Not Given Levothyroxine Sodium (Synthroid -) 200 mcg PO AM [facility] Last Admin: 01/03/17 06:16 Dose: 200 mcg Metoprolol Succinate (Toprol Xl -) 25 mg PO DAILY [facility] Last Admin: 01/03/17 09:54 Dose: Not Given Oxycodone HCl (Roxicodone -) 10 mg PO Q4H PRN PRN Reason: PAIN LEVEL 6-10 Last Admin: 12/30/16 22:16 Dose: 5 mg Pantoprazole Sodium (Protonix -) 40 mg PO DAILY [facility] Last Admin: 01/03/17 09:54 Dose: Not Given Polyethylene Glycol (Miralax (For Daily Use) -) 17 gm PO DAILY PRN Senna (Senna -) 2 tab PO HS PRN PRN Reason: CONSTIPATION Last Admin: 01/02/17 21:39 Dose: 2 tab Simethicone (Mylicon -) 80 mg PO QID PRN PRN Reason: GAS Last Admin: 01/01/17 11:24 Dose: 80 mg Sodium Hypochlorite (Dakin's Solution 0.5% (Full Strength) -) 1 applic TP BID [facility] Last Admin: 01/03/17 09:54 Dose: Not Given Tramadol HCl (Ultram -) 50 mg PO Q8H PRN PRN Reason: PAIN Last Admin: 01/02/17 21:26 Dose: 50 mg A/P 71 year old woman with PMhx of ESRD on HD (MWF), CAD s/p PCI and stenting, DM Type 2 on insulin, PVD s/p Multiple amputations, Multiple failed dialysis accesses s/p recent HERO graft infection presents after being found to have new onset Afib by Cardiology. #Breast Wound Management as per Sx not currently on Abx #ESRD on HD tolerating dialysis well continue MWF schedule will use heparin with HD after 1 week from debridemetn #New onset Afib INR is 3 Cardiology following #CAD ASA continued as per cardiology Wan Cruz DO
--- NOTE | 2017-01-03 10:47 | PN ---
Progress Note (short form) - Note Progress Note: Subjective Patient seen and examined in HD Chart reviewed. Comfortable. No distress. Off heparin. Objective Last Vital Signs Temp Pulse Resp BP Pulse Ox 98.3 F 91 H 18 122/65 96 01/03/17 07:46 01/03/17 10:14 01/03/17 10:14 01/03/17 10:14 01/02/17 21:00 CBC, BMP 01/03/17 06:50 01/03/17 06:50 Laboratory Results - last 24 hr 01/02/17 01/03/17 01/03/17 17:59 05:19 06:50 WBC RBC Hgb Hct MCV MCHC RDW Plt Count MPV INR 3.08 H Sodium Potassium Chloride Carbon Dioxide Anion Gap BUN Creatinine Creat Clearance w eGFR POC Glucometer 314 72 Random Glucose Calcium Total Bilirubin AST ALT Alkaline Phosphatase Total Protein Albumin 01/03/17 01/03/17 06:50 06:50 WBC 11.7 H RBC 3.87 Hgb 11.2 Hct 35.1 MCV 90.9 MCHC 31.8 L RDW 16.2 H Plt Count 304 MPV 8.3 INR Sodium 141 Potassium 4.2 Chloride 101 Carbon Dioxide 27 Anion Gap 13 BUN 31 H D Creatinine 7.5 H* D Creat Clearance w eGFR 5.31 POC Glucometer Random Glucose 58 L D Calcium 8.4 L Total Bilirubin 0.4 D AST 5 L ALT 10 L Alkaline Phosphatase 92 Total Protein 5.9 L Albumin 2.3 L Physical Exam Constitutional: Yes: No Distress, Calm Cardiovascular: Yes: Regular Rate and Rhythm Respiratory: Yes: CTA Bilaterally Gastrointestinal: Yes: Normal Bowel Sounds, Soft. No: Distention, Tenderness Breast(s): Yes: Left (dressing in place) Extremities: Yes: Other (left finger- dressing) Edema: No Assessment and Plan Clinically stable. Continue present care. Coumadin per INR level Local wound care. Surgery to follow. Overall better. Anticipate d/c by tomorrow. Pt would like to go home. Discussed with correctional casework specialist. Documentation prepared by Vickie Gaspar, acting as a medical office secretary for Jessenia Galarza MD.
[2017-01-03] MEDS: diphenhydrAMINE HCL 25 MG CAPSULE (FP) PO PRN (15:27)
[2017-01-03] MEDS: SIMETHICONE 80 MG TAB.CHEW (FP) PO PRN (20:44)
[2017-01-03] MEDS: traMADol HCL 50 MG TABLET PO PRN (20:44)
[2017-01-03] MEDS: SENNOSIDES 8.6MG TABLET (FP) PO PRN (21:15)
[2017-01-04] MEDS: LEVOTHYROXINE NA 100 MCG TABLET (FP) PO SCH (06:04)
[2017-01-04] MEDS: INSULIN SLIDING SCALE (NOVOLOG) 1 VIAL SQ SCH ×2 (06:04→17:23)
[2017-01-04] MEDS: INSULIN DETEMIR 100 UNITS/ML MDV SQ SCH ×2 (06:16→17:22)
[2017-01-04] MEDS: CALCIUM ACETATE 667 MG CAPSULE (FP) PO SCH ×3 (08:56→17:16)
[2017-01-04 09:00] LABS: INR 3.24 (0.82-1.09); PROTHROMBIN TIME (PATIENT) 36.5 SEC (9.98-11.88)
[2017-01-04] MEDS: METOPROLOL SUCCINATE 25 MG TAB.SR.24H (FP) PO SCH (09:01)
[2017-01-04] MEDS: PANTOPRAZOLE 40 MG TABLET (FP) PO SCH (09:01)
[2017-01-04] MEDS: SODIUM HYPOCHLORITE 0.5% 473 ML- BULK BOTTLE TP SCH ×2 (09:02→21:03)
[2017-01-04] MEDS: BACITRACIN 15 GM TUBE TOPICAL OINTMENT TP SCH ×2 (09:02→21:03)
--- NOTE | 2017-01-04 10:45 | DS ---
Physical Examination Vital Signs: Vital Signs Temperature 98.2 F 01/04/17 06:00 Pulse Rate 88 01/04/17 06:00 Respiratory Rate 20 01/04/17 06:00 Blood Pressure 160/49 01/04/17 06:00 O2 Sat by Pulse Oximetry (%) 96 01/03/17 21:00 Labs: CBC, BMP 01/03/17 06:50 01/03/17 06:50 Discharge Summary Reason For Visit: ATRIAL FIBRILLATION Current Active Problems Atrial fibrillation (Acute) Breast abscess (Acute) CAD (coronary artery disease) (Acute) ESRD on hemodialysis (Acute) HTN (hypertension) (Acute) History of percutaneous coronary intervention (Acute) Hypercholesterolemia (Acute) Condition: Stable - Instructions Referrals: Darwin Lopez MD [Primary Care Provider] - - Home Medications Comprehensive Discharge Medication List: Ambulatory Orders Aspirin [ASA -] 81 mg PO DAILY #90 tab.chew 08/29/14 Clopidogrel Bisulfate [Plavix -] 75 mg PO DAILY #90 tablet 08/29/14 Cyanocobalamin [Vitamin B12 -] 100 mcg PO DAILY #90 tablet 08/29/14 Pantoprazole Sodium [Protonix -] 40 mg PO DAILY #30 tablet.ec 08/29/14 Calcium Acetate [Phoslo -] 667 mg PO TID 04/06/16 Levothyroxine [Synthroid -] 200 mcg PO DAILY 08/10/16 Metoprolol Succinate [Toprol XL -] 12.5 mg PO DAILY 08/10/16 Alprazolam [Xanax] 0.25 mg PO DAILY PRN #30 tablet MDD 1 08/14/16 Alprazolam [Xanax] 0.25 mg PO BID PRN #60 tablet MDD 2 09/27/16 Calamine 8% Topical Lotion - 1 applic TP QID PRN #1 bottle 09/27/16 Diphenhydramine HCl [Benadryl Capsule -] 25 mg PO Q6H PRN #30 capsule 09/27/16 Sennosides [Senna -] 2 tab PO HS PRN #60 tablet 09/27/16 Simethicone [Mylicon -] 80 mg PO QID PRN #20 tab.chew 09/27/16 Insulin (Levemir) [Levemir Flexpen -] 20 units SQ BID 12/23/16 Tramadol HCl 25 mg PO Q6H PRN 12/23/16 Melatonin 5 mg PO HS 12/25/16
--- NOTE | 2017-01-04 12:09 | PN ---
Progress Note (short form) - Note Progress Note: No distress Vital Signs - 24 hr 01/03/17 01/03/17 01/03/17 12:27 12:34 15:58 Temperature 97.5 F L 97.7 F Pulse Rate 88 106 H Respiratory 16 18 Rate Blood Pressure 136/65 130/55 O2 Sat by Pulse 96 Oximetry (%) 01/03/17 01/03/17 01/03/17 17:19 21:00 22:00 Temperature 98.9 F 97.9 F Pulse Rate 93 H 95 H Respiratory 20 18 Rate Blood Pressure 153/67 145/66 O2 Sat by Pulse 96 Oximetry (%) 01/04/17 06:00 Temperature 98.2 F Pulse Rate 88 Respiratory 20 Rate Blood Pressure 160/49 O2 Sat by Pulse Oximetry (%) Current Medications Generic Name Dose Route Start Last Admin Trade Name Freq PRN Reason Stop Dose Admin Acetaminophen 650 mg 12/30/16 13:04 12/31/16 07:03 Tylenol - PO 650 mg Q6H PRN Administration PAIN Bacitracin 1 applic 12/31/16 22:00 01/04/17 09:02 Bacitracin - TP 1 applic BID YOAN Administration Bisacodyl 5 mg 12/31/16 21:17 12/31/16 21:27 Dulcolax - PO 5 mg DAILY PRN Administration CONSTIPATION Calamine 1 applic 12/30/16 13:04 Calamine 8% Topical Lotion - TP QID PRN FOR ITCHING Calcium Acetate 667 mg 12/30/16 17:30 01/04/17 08:56 Phoslo - PO 667 mg TIDCM YOAN Administration Diphenhydramine HCl 25 mg 12/30/16 13:04 01/03/17 15:27 Benadryl - PO 25 mg Q6H PRN Administration FOR ITCHING Insulin Aspart 1 vial 01/01/17 16:45 01/04/17 06:04 Novolog Vial Sliding Scale - SQ Not Given BIDAC [facility] Protocol Insulin Detemir 20 units 12/30/16 16:30 01/04/17 06:16 Levemir Vial SQ 20 units BIDI [facility]AN Administration Levothyroxine Sodium 200 mcg 12/31/16 07:00 01/04/17 06:04 Synthroid - PO 200 mcg AM [facility] Administration Metoprolol Succinate 25 mg 01/02/17 12:06 01/04/17 09:01 Toprol Xl - PO 25 mg DAILY [facility] Administration Pantoprazole Sodium 40 mg 12/31/16 10:00 01/04/17 09:01 Protonix - PO 40 mg DAILY [facility] Administration Polyethylene Glycol 17 gm 12/31/16 21:15 01/04/17 09:03 Miralax (For Daily Use) - PO 17 gm DAILY PRN Administration Senna 2 tab 12/30/16 13:04 01/03/17 21:15 Senna - PO 2 tab HS PRN Administration CONSTIPATION Simethicone 80 mg 12/30/16 13:04 01/03/17 20:44 Mylicon - PO 80 mg QID PRN Administration GAS Sodium Hypochlorite 1 applic 12/30/16 22:00 01/04/17 09:02 Dakin's Solution 0.5% (Full Strength) - TP 1 applic BID [facility] Administration Tramadol HCl 50 mg 12/31/16 18:59 01/03/17 20:44 Ultram - PO 50 mg Q8H PRN Administration PAIN Laboratory Results - last 24 hr 01/03/17 01/04/17 01/04/17 16:51 05:41 07:15 INR 3.24 H POC Glucometer 178 105 Constitutional: Yes: No Distress Cardiovascular: Yes: Pulse Irregular Respiratory: Yes: CTA Bilaterally Gastrointestinal: Yes: Normal Bowel Sounds, Soft. No: Tenderness Edema: No Labs: PLAN Spoke with family service caseworker, who will arrange for home phlebotomy every other to check INR she can also come to our office and Dr Lopez's office where we can check INR by fingerstick She has follow up appointment with Dr Clarisa gandhi-- hold off Coumadin tomorrow HD , afterwards may dc home continue with meds wound care Problem List - Problems (1) Atrial fibrillation Code(s): I48.91 - UNSPECIFIED ATRIAL FIBRILLATION Qualifiers: Atrial fibrillation type: unspecified Qualified Code(s): I48.91 - Unspecified atrial fibrillation (2) Breast abscess Code(s): N61.1 - ABSCESS OF THE BREAST AND NIPPLE (3) CAD (coronary artery disease) Code(s): I25.10 - ATHSCL HEART DISEASE OF [place] CORONARY ARTERY W/O ANG PCTRS Qualifiers: Coronary Disease-Associated Artery/Lesion type: [place] artery [place] vs. transplanted heart: [place] heart Associated angina: without angina Qualified Code(s): I25.10 - Atherosclerotic heart disease of [place] coronary artery without angina pectoris (4) ESRD on hemodialysis Code(s): N18.6 - END STAGE RENAL DISEASE Z99.2 - DEPENDENCE ON RENAL DIALYSIS (5) HTN (hypertension) Code(s): I10 - ESSENTIAL (PRIMARY) HYPERTENSION Qualifiers: Hypertension type: essential hypertension Qualified Code(s): I10 - Essential (primary) hypertension
--- NOTE | 2017-01-04 13:48 | PN ---
Progress Note, Physician History of Present Illness: No complaints post left breast and ring finger debridement. - Current Medication List Current Medications: Active Medications Acetaminophen (Tylenol -) 650 mg PO Q6H PRN PRN Reason: PAIN Last Admin: 12/31/16 07:03 Dose: 650 mg Bacitracin (Bacitracin -) 1 applic TP BID [facility] Last Admin: 01/04/17 09:02 Dose: 1 applic Bisacodyl (Dulcolax -) 5 mg PO DAILY PRN PRN Reason: CONSTIPATION Last Admin: 12/31/16 21:27 Dose: 5 mg Calamine (Calamine 8% Topical Lotion -) 1 applic TP QID PRN PRN Reason: FOR ITCHING Calcium Acetate (Phoslo -) 667 mg PO TIDCM [facility] Last Admin: 01/04/17 12:24 Dose: 667 mg Diphenhydramine HCl (Benadryl -) 25 mg PO Q6H PRN PRN Reason: FOR ITCHING Last Admin: 01/03/17 15:27 Dose: 25 mg Insulin Aspart (Novolog Vial Sliding Scale -) 1 vial SQ BIDAC [facility] PRN Reason: Protocol Last Admin: 01/04/17 06:04 Dose: Not Given Insulin Detemir (Levemir Vial) 20 units SQ BIDI [facility] Last Admin: 01/04/17 06:16 Dose: 20 units Levothyroxine Sodium (Synthroid -) 200 mcg PO AM [facility] Last Admin: 01/04/17 06:04 Dose: 200 mcg Metoprolol Succinate (Toprol Xl -) 25 mg PO DAILY [facility] Last Admin: 01/04/17 09:01 Dose: 25 mg Pantoprazole Sodium (Protonix -) 40 mg PO DAILY [facility] Last Admin: 01/04/17 09:01 Dose: 40 mg Polyethylene Glycol (Miralax (For Daily Use) -) 17 gm PO DAILY PRN Last Admin: 01/04/17 09:03 Dose: 17 gm Senna (Senna -) 2 tab PO HS PRN PRN Reason: CONSTIPATION Last Admin: 01/03/17 21:15 Dose: 2 tab Simethicone (Mylicon -) 80 mg PO QID PRN PRN Reason: GAS Last Admin: 01/03/17 20:44 Dose: 80 mg Sodium Hypochlorite (Dakin's Solution 0.5% (Full Strength) -) 1 applic TP BID [facility] Last Admin: 01/04/17 09:02 Dose: 1 applic Tramadol HCl (Ultram -) 50 mg PO Q8H PRN PRN Reason: PAIN Last Admin: 01/03/17 20:44 Dose: 50 mg - Objective Vital Signs: Vital Signs Temperature 98.2 F 01/04/17 06:00 Pulse Rate 88 01/04/17 06:00 Respiratory Rate 20 01/04/17 06:00 Blood Pressure 160/49 01/04/17 06:00 O2 Sat by Pulse Oximetry (%) 96 01/03/17 21:00 Constitutional: Yes: No Distress, Calm Neck: Yes: Supple Cardiovascular: Yes: Pulse Irregular Respiratory: Yes: Regular, Diminished Gastrointestinal: Yes: Normal Bowel Sounds, Soft, Abdomen, Obese Extremities: Yes: Amputation Edema: No Labs: CBC, BMP 01/03/17 06:50 01/03/17 06:50 INR, PTT INR 3.24 (0.82-1.09) H 01/04/17 07:15 Problem List - Problems (1) Atrial fibrillation Code(s): I48.91 - UNSPECIFIED ATRIAL FIBRILLATION Qualifiers: Atrial fibrillation type: unspecified Qualified Code(s): I48.91 - Unspecified atrial fibrillation (2) CAD (coronary artery disease) Code(s): I25.10 - ATHSCL HEART DISEASE OF [place] CORONARY ARTERY W/O ANG PCTRS Qualifiers: Coronary Disease-Associated Artery/Lesion type: [place] artery [place] vs. transplanted heart: [place] heart Associated angina: without angina Qualified Code(s): I25.10 - Atherosclerotic heart disease of [place] coronary artery without angina pectoris (3) ESRD on hemodialysis Code(s): N18.6 - END STAGE RENAL DISEASE Z99.2 - DEPENDENCE ON RENAL DIALYSIS (4) HTN (hypertension) Code(s): I10 - ESSENTIAL (PRIMARY) HYPERTENSION Qualifiers: Hypertension type: essential hypertension Qualified Code(s): I10 - Essential (primary) hypertension (5) History of percutaneous coronary intervention Code(s): Z98.890 - OTHER SPECIFIED POSTPROCEDURAL STATES (6) Hypercholesterolemia Code(s): E78.00 - PURE HYPERCHOLESTEROLEMIA, UNSPECIFIED (7) Diabetes Code(s): E11.9 - TYPE 2 DIABETES MELLITUS WITHOUT COMPLICATIONS Qualifiers: Diabetes mellitus type: type 1 Diabetes mellitus complication status: with circulatory complication Diabetes mellitus complication detail: with other circulatory complications Qualified Code(s): E10.59 - Type 1 diabetes mellitus with other circulatory complications Assessment/Plan 1. New onset atrial fibrillation rate-controlled with therapeutic INR 2. CAD s/p multi-vessel PCI, angina pectoris 3. PVD s/p right AKA and left TMA 4. LV diastolic dysfunction 5. ESRD on HD - via permacath 6. Infected AVG 7. Insulin requiring diabetes mellitus 8. HTN/HCVD, BP elevated 9. Hypercholesterolemia 10. Hypothyroidism 11. Post left breast and finger debridement PLAN: 1. Continue coumadin per INR. Not an ideal candidate for NOAC in view of ESRD 2. Continue Metoprolol XL 25 qd 3. Wound care recs per surgery 4. HD as per protocol, d/c planning
--- NOTE | 2017-01-04 14:56 | PN ---
Progress Note (short form) - Note Progress Note: Renal Follow up for ESRD on HD Pt seen and examined at the bedside no acute complaints no sob, chest pain Vital Signs Temperature 98.2 F 01/04/17 06:00 Pulse Rate 88 01/04/17 06:00 Respiratory Rate 20 01/04/17 06:00 Blood Pressure 160/49 01/04/17 06:00 O2 Sat by Pulse Oximetry (%) 96 01/03/17 21:00 Intake & Output 01/01/17 01/02/17 01/03/17 01/04/17 23:59 23:59 23:59 23:59 Intake Total 776 475 610 150 Balance 776 475 610 150 Weight 190 lb 9.6 oz 190 lb 3 oz 186 lb 6.4 oz Gen: NAD, awake and alert CVS: RRR, No M/R Lungs: CTA, no rales or wheeze Abd:soft NT/ND Ext: B/L LE amputations Breast: Dressing in place CBC, BMP 01/03/17 06:50 01/03/17 06:50 Laboratory Tests 01/03/17 01/03/17 06:50 06:50 INR 3.08 H Calcium 8.4 L Albumin 2.3 L Current Medications Acetaminophen (Tylenol -) 650 mg PO Q6H PRN PRN Reason: PAIN Last Admin: 12/31/16 07:03 Dose: 650 mg Bacitracin (Bacitracin -) 1 applic TP BID [facility] Last Admin: 01/04/17 09:02 Dose: 1 applic Bisacodyl (Dulcolax -) 5 mg PO DAILY PRN PRN Reason: CONSTIPATION Last Admin: 12/31/16 21:27 Dose: 5 mg Calamine (Calamine 8% Topical Lotion -) 1 applic TP QID PRN PRN Reason: FOR ITCHING Calcium Acetate (Phoslo -) 667 mg PO TIDCM [facility] Last Admin: 01/04/17 12:24 Dose: 667 mg Diphenhydramine HCl (Benadryl -) 25 mg PO Q6H PRN PRN Reason: FOR ITCHING Last Admin: 01/03/17 15:27 Dose: 25 mg Insulin Aspart (Novolog Vial Sliding Scale -) 1 vial SQ BIDAC [facility] PRN Reason: Protocol Last Admin: 01/04/17 06:04 Dose: Not Given Insulin Detemir (Levemir Vial) 20 units SQ BIDI [facility] Last Admin: 01/04/17 06:16 Dose: 20 units Levothyroxine Sodium (Synthroid -) 200 mcg PO AM [facility] Last Admin: 01/04/17 06:04 Dose: 200 mcg Metoprolol Succinate (Toprol Xl -) 25 mg PO DAILY [facility] Last Admin: 01/04/17 09:01 Dose: 25 mg Pantoprazole Sodium (Protonix -) 40 mg PO DAILY [facility] Last Admin: 01/04/17 09:01 Dose: 40 mg Polyethylene Glycol (Miralax (For Daily Use) -) 17 gm PO DAILY PRN Last Admin: 01/04/17 09:03 Dose: 17 gm Senna (Senna -) 2 tab PO HS PRN PRN Reason: CONSTIPATION Last Admin: 01/03/17 21:15 Dose: 2 tab Simethicone (Mylicon -) 80 mg PO QID PRN PRN Reason: GAS Last Admin: 01/03/17 20:44 Dose: 80 mg Sodium Hypochlorite (Dakin's Solution 0.5% (Full Strength) -) 1 applic TP BID [facility] Last Admin: 01/04/17 09:02 Dose: 1 applic Tramadol HCl (Ultram -) 50 mg PO Q8H PRN PRN Reason: PAIN Last Admin: 01/03/17 20:44 Dose: 50 mg A/P 71 year old woman with PMhx of ESRD on HD (MWF), CAD s/p PCI and stenting, DM Type 2 on insulin, PVD s/p Multiple amputations, Multiple failed dialysis accesses s/p recent HERO graft infection presents after being found to have new onset Afib by Cardiology. #Breast Wound Management as per Sx to follow up as outpatient #ESRD on HD no indication for dialysis today next treatment tomorrow morning #New onset Afib on Coumadin Cardiology following #CAD ASA continued as per cardiology Wan Cruz DO
[2017-01-04] MEDS: diphenhydrAMINE HCL 25 MG CAPSULE (FP) PO PRN ×2 (15:40→22:29)
[2017-01-04] MEDS ORDERED: INSULIN (NOVOLOG) ASPART 100 UNITS/ML 10ML VIAL ONE ×3 (17:08→18:20)
[2017-01-04] MEDS ORDERED: PT OWN MED DRAWER 7, Y5N ONE ×2 (18:19→18:20)
[2017-01-04] MEDS ORDERED: INSULIN DETEMIR 100 UNITS/ML MDV SQ ONE (18:20)
[2017-01-04] MEDS: traMADol HCL 50 MG TABLET PO PRN (21:03)
[2017-01-05] MEDS: LEVOTHYROXINE NA 100 MCG TABLET (FP) PO SCH (06:01)
[2017-01-05] MEDS: INSULIN SLIDING SCALE (NOVOLOG) 1 VIAL SQ SCH (06:01)
[2017-01-05] MEDS: INSULIN DETEMIR 100 UNITS/ML MDV SQ SCH (06:01)
[2017-01-05 06:43] VITALS: TEMP 98.3
[2017-01-05 07:53] LABS: INR 1.81 (0.82-1.09); PROTHROMBIN TIME (PATIENT) 20.2 SEC (9.98-11.88)
[2017-01-05 09:06] LABS: MCH 28.9 pg (25.7-33.7); MEAN CELL VOLUME 90.1 fl (80-96); MEAN PLT VOLUME 8.5 fl (7.5-11.1); PLATELET COUNT 308 K/MM3 (134-434); RDW 15.9 % (11.6-15.6); WHITE BLOOD COUNT 10.3 K/mm3 (4.0-10.0)
[2017-01-05 09:29] LABS: CALCIUM 8.3 mg/dL (8.5-10.1); COCKROFT - GAULT 10.234; CREATININE 6.6 mg/dL (0.55-1.02); PHOSPHOROUS 4.6 mg/dL (2.5-4.9)
[2017-01-05] MEDS: CALCIUM ACETATE 667 MG CAPSULE (FP) PO SCH ×2 (09:35→12:29)
--- NOTE | 2017-01-05 11:36 | DS ---
Physical Examination Vital Signs: Vital Signs Temperature 98.3 F 01/05/17 06:00 Pulse Rate 96 H 01/05/17 10:10 Respiratory Rate 18 01/05/17 10:10 Blood Pressure 140/59 01/05/17 10:10 O2 Sat by Pulse Oximetry (%) 97 01/04/17 21:00 Constitutional: Yes: No Distress Cardiovascular: Yes: Pulse Irregular Respiratory: Yes: CTA Bilaterally Gastrointestinal: Yes: Normal Bowel Sounds, Soft, Abdomen, Obese. No: Distention, Tenderness Edema: No Labs: CBC, BMP 01/05/17 08:20 01/05/17 08:20 Discharge Summary Reason For Visit: ATRIAL FIBRILLATION Current Active Problems Atrial fibrillation (Acute) Breast abscess (Acute) CAD (coronary artery disease) (Acute) ESRD on hemodialysis (Acute) HTN (hypertension) (Acute) History of percutaneous coronary intervention (Acute) Hypercholesterolemia (Acute) Hospital Course: - Admission History of Present Illness: The patient is a 71-year-old woman with a significant past medical history of 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 Richard's office for pre-op cardiac clearance for left breast abscess debridement and she was found to have a new onset of atrial fibrillation. Patient admitted to Telemetry. Chart reviewed. Started on Heparin. At present, denies chest pain or shortness of breath. No abdominal pain. Currently being dialyzed. HOSPITALIZATION COURSE On Heparin in fusion Seen by Cardiology, ID and Plastic surgery- Dr mckenna. No antibiotics needed for left breast wound per ID Her previous records for left breast obtained from [facility] negative for malignancy. She underwent left breast debridement and left fingers debridement on 12/30 Pathology came back as negative for malignancy Pt will be on Coumadin and has home phlebotomy set up for every other for INR. She will be following with DR Mckenna tomorrow Stable for dc home Condition: Stable - Instructions Diet, Activity, Other Instructions: INR to be checked by home phlebotomy every other Referrals: Moreno Mckenna MD [Staff Physician] - Darwin Lopez MD [Primary Care Provider] - Jessenia Galarza MD [Staff Physician] - Disposition: HOME - Home Medications Comprehensive Discharge Medication List: Ambulatory Orders Aspirin [ASA -] 81 mg PO DAILY #90 tab.chew 08/29/14 Cyanocobalamin [Vitamin B12 -] 100 mcg PO DAILY #90 tablet 08/29/14 Pantoprazole Sodium [Protonix -] 40 mg PO DAILY #30 tablet.ec 08/29/14 Calcium Acetate [Phoslo -] 667 mg PO TID 04/06/16 Levothyroxine [Synthroid -] 200 mcg PO DAILY 08/10/16 Alprazolam [Xanax] 0.25 mg PO DAILY PRN #30 tablet MDD 1 08/14/16 Alprazolam [Xanax] 0.25 mg PO BID PRN #60 tablet MDD 2 09/27/16 Calamine 8% Topical Lotion - 1 applic TP QID PRN #1 bottle 09/27/16 Diphenhydramine HCl [Benadryl Capsule -] 25 mg PO Q6H PRN #30 capsule 09/27/16 Sennosides [Senna -] 2 tab PO HS PRN #60 tablet 09/27/16 Simethicone [Mylicon -] 80 mg PO QID PRN #20 tab.chew 09/27/16 Insulin (Levemir) [Levemir Flexpen -] 20 units SQ BID 12/23/16 Melatonin 5 mg PO HS 12/25/16 Polyethylene Glycol 3350 [Miralax 119 gm Btl -] 17 gm PO DAILY PRN #30 bottle Tramadol HCl [Ultram -] 50 mg PO Q8H PRN #20 tablet MDD 3 01/04/17 Warfarin Sodium [Coumadin] 3 mg PO DAILY #30 tablet 01/04/17
[2017-01-05 12:08] VITALS: BP 162/46; PULSE 82
[2017-01-05] MEDS: BACITRACIN 15 GM TUBE TOPICAL OINTMENT TP SCH (12:28)
[2017-01-05] MEDS: PANTOPRAZOLE 40 MG TABLET (FP) PO SCH (12:29)
[2017-01-05] MEDS: SODIUM HYPOCHLORITE 0.5% 473 ML- BULK BOTTLE TP SCH (12:30)
[2017-01-05] MEDS: traMADol HCL 50 MG TABLET PO PRN (13:05)
--- NOTE | 2017-01-05 13:22 | PN ---
Progress Note (short form) - Note Progress Note: Renal Follow up for ESRD on HD Pt seen and examined during dialysis BP stable, gaol UF is 2L catheter with good function no heparin given today Vital Signs Temperature 98.3 F 01/05/17 06:00 Pulse Rate 82 01/05/17 11:40 Respiratory Rate 18 01/05/17 11:40 Blood Pressure 162/46 01/05/17 11:40 O2 Sat by Pulse Oximetry (%) 97 01/04/17 21:00 Intake & Output 01/02/17 01/03/17 01/04/17 01/05/17 23:59 23:59 23:59 23:59 Intake Total 475 610 500 Balance 475 610 500 Weight 190 lb 3 oz 186 lb 6.4 oz 188 lb 4.8 oz Gen: NAD, awake and alert CVS: RRR, No M/R Lungs: CTA, no rales or wheeze Abd:soft NT/ND Ext: B/L LE amputations Breast: Dressing in place CBC, BMP 01/05/17 08:20 Current Medications Acetaminophen (Tylenol -) 650 mg PO Q6H PRN PRN Reason: PAIN Last Admin: 12/31/16 07:03 Dose: 650 mg Bacitracin (Bacitracin -) 1 applic TP BID [facility] Last Admin: 01/05/17 12:28 Dose: 1 applic Bisacodyl (Dulcolax -) 5 mg PO DAILY PRN PRN Reason: CONSTIPATION Last Admin: 12/31/16 21:27 Dose: 5 mg Calamine (Calamine 8% Topical Lotion -) 1 applic TP QID PRN PRN Reason: FOR ITCHING Calcium Acetate (Phoslo -) 667 mg PO TIDCM [facility] Last Admin: 01/05/17 12:29 Dose: 667 mg Diphenhydramine HCl (Benadryl -) 25 mg PO Q6H PRN PRN Reason: FOR ITCHING Last Admin: 01/04/17 22:29 Dose: 25 mg Insulin Aspart (Novolog Vial Sliding Scale -) 1 vial SQ BIDAC [facility] PRN Reason: Protocol Last Admin: 01/05/17 06:01 Dose: Not Given Insulin Detemir (Levemir Vial) 20 units SQ BIDI [facility] Last Admin: 01/05/17 06:01 Dose: Not Given Levothyroxine Sodium (Synthroid -) 200 mcg PO AM [facility] Last Admin: 01/05/17 06:01 Dose: 200 mcg Metoprolol Succinate (Toprol Xl -) 25 mg PO DAILY [facility] Last Admin: 01/04/17 09:01 Dose: 25 mg Pantoprazole Sodium (Protonix -) 40 mg PO DAILY [facility] Last Admin: 01/05/17 12:29 Dose: 40 mg Polyethylene Glycol (Miralax (For Daily Use) -) 17 gm PO DAILY PRN Last Admin: 01/04/17 09:03 Dose: 17 gm Senna (Senna -) 2 tab PO HS PRN PRN Reason: CONSTIPATION Last Admin: 01/03/17 21:15 Dose: 2 tab Simethicone (Mylicon -) 80 mg PO QID PRN PRN Reason: GAS Last Admin: 01/03/17 20:44 Dose: 80 mg Sodium Hypochlorite (Dakin's Solution 0.5% (Full Strength) -) 1 applic TP BID [facility] Last Admin: 01/05/17 12:30 Dose: 1 applic Tramadol HCl (Ultram -) 50 mg PO Q8H PRN PRN Reason: PAIN Last Admin: 01/05/17 13:05 Dose: 50 mg A/P 71 year old woman with PMhx of ESRD on HD (MWF), CAD s/p PCI and stenting, DM Type 2 on insulin, PVD s/p Multiple amputations, Multiple failed dialysis accesses s/p recent HERO graft infection presents after being found to have new onset Afib by Cardiology. #Breast Wound Management as per Sx to follow up as outpatient #ESRD on HD tolerating hd well today catheter with good function to resume dialysis as outpatient on Tuesday #New onset Afib on Coumadin Cardiology following #CAD ASA continued as per cardiology Wan Cruz DO
[2017-01-05] MEDS: METOPROLOL SUCCINATE 25 MG TAB.SR.24H (FP) PO SCH (13:35)
[2017-01-05 14:18] LABS: COCKROFT - GAULT 25.976; CREATININE 2.6 mg/dL (0.55-1.02)
--- NOTE | 2017-01-28 08:25 | OP ---
DATE OF OPERATION: 12/30/2016 PREOPERATIVE DIAGNOSIS: Left breast wound and left ring fingertip wound. POSTOPERATIVE DIAGNOSIS: Left breast wound and left ring fingertip wound. OPERATION: Excisional biopsy of left breast wound. Excisional debridement of left ring fingertip wound. SURGEON: Moreno Mckenna MD ANESTHESIA: Sedation with local anesthetic. FLUIDS: Crystalloid. ESTIMATED BLOOD LOSS: 2 mL. URINE OUTPUT: No Recinos catheter used. COMPLICATIONS: None. SPECIMENS: Left breast wound short stitch superior, long stitch lateral. DISPOSITION: Stable to PACU. DESCRIPTION OF PROCEDURE: MORENO MCKENNA MD [id number]
== END 2017-01-05 14:22 | disposition home or self-care (01) | DRG 264 ==
LOC: JER 13:28 → JERBED 16:19 → J4W 18:04 → J8W 12-31 09:38 → JSAMEDAYSX 01-03 10:48 → J8W 01-03 10:49
PROVIDERS: ADMIT Internal Medicine; ATTEND Internal Medicine
PROC: 0JBK0ZZ Excision of Left Hand Subcutaneous Tissue and Fascia, Open Approach (ICD-10-PCS; 2016-12-30)
PROC: 0JB60ZZ Excision of Chest Subcutaneous Tissue and Fascia, Open Approach (ICD-10-PCS; principal; 2016-12-30 10:30)
PROC: 5A1D60Z (ICD-10-PCS; 2016-12-31)
DX: I48.91 Unspecified atrial fibrillation (principal); N18.6 End stage renal disease; I13.2 Hypertensive heart and chronic kidney disease with heart failure and with stage 5 chronic kidney disease, or end stage renal disease; N61.1 Abscess of the breast and nipple; S61.205A Unspecified open wound of left ring finger without damage to nail, initial encounter; D63.1 Anemia in chronic kidney disease; E03.9 Hypothyroidism, unspecified; I25.10 Atherosclerotic heart disease of native coronary artery without angina pectoris; J44.9 Chronic obstructive pulmonary disease, unspecified; E78.00 Pure hypercholesterolemia, unspecified; I73.89 Other specified peripheral vascular diseases; E11.22 Type 2 diabetes mellitus with diabetic chronic kidney disease; I50.9 Heart failure, unspecified; E66.8 Other obesity; Z99.2 Dependence on renal dialysis; Z95.5 Presence of coronary angioplasty implant and graft; Z89.9 Acquired absence of limb, unspecified; Z89.432 Acquired absence of left foot; Z79.4 Long term (current) use of insulin; Z68.29 Body mass index [BMI] 29.0-29.9, adult; Z71.3 Dietary counseling and surveillance
CPT/HCPCS: 36415; 71010-TC; 80048; 80053; 82550; 82565; 84100; 84443; 84484; 84520; 85025; 85027; 85610; 85651; 85730; 86140; 86704; 86706; 86708; 86850; 86870; 86900; 86901; 86902; 87070; 87075; 87186; 87205; 87340; 88304-TC; 93005; 93010; 94760; 97161-GP; 99285-25; J0885; J1644

== ENCOUNTER 2017-02-22 10:46 | Day surgery (SDC) | payer OTHER ==
[2017-02-16 15:39] VITALS: BMI 28.5
[2017-02-22] MEDS ORDERED: LIDOCAINE HCL 2% (20ML MULTI-DOSE VIAL) NR ONE (11:53)
[2017-02-22] MEDS ORDERED: BUPIVACAINE HCL/PF 2.5 MG/ML - 30 ML VIAL IJ ONE (12:41)
[2017-02-22] MEDS ORDERED: PROPOFOL 20 ML ONE (12:57)
[2017-02-22] MEDS ORDERED: ceFAZolin SODIUM 1 GM VIAL ONE (13:04)
[2017-02-22] MEDS ORDERED: PHENYLEPHRINE HCL 10 MG/1 ML SINGLE DOSE VIAL ONE (13:21)
[2017-02-22 14:01] VITALS: TEMP 97.8
[2017-02-22 15:14] VITALS: BP 128/58; PULSE 84
--- NOTE | 2017-02-24 14:54 | OP ---
DATE OF OPERATION: 02/22/2017 PREOPERATIVE DIAGNOSIS: Left ring finger necrotic wound, nonhealing. POSTOPERATIVE DIAGNOSIS: Left ring finger necrotic wound, nonhealing. PROCEDURE: Left ring fingertip amputation with rotational advancement flap. SURGEON: Jan Winn MD SALES PROFESSIONAL BILINGUAL: None. ANESTHESIA: Local with sedation. ESTIMATED BLOOD LOSS: Minimal. COMPLICATIONS: None. TOURNIQUET TIME: 14 minutes. OPERATIVE INDICATIONS: This is a 71-year-old female patient with severe diabetes and microvascular disease of the extremities. She has had multiple amputations prior, but she had been seen in my office for a nonhealing wound, which upon office debridement, revealed itself to be necrotic to the level of the bone of the distal phalanx of the ring finger. We discussed the risks, benefits, and alternatives at great length. The risks were explained as including, but not limited to, need for further amputation, infection, bleeding, nonhealing wound. Patient understood all these risks, all questions were answered, and consent was signed. OPERATIVE COURSE: Patient was brought to the operating room where a time-out was performed. Anesthesia administered sedation, and a digital nerve block was performed. This was done with 1% lidocaine. Later, 0.5% Marcaine was infused, as well. A mid axial incision was made on either side of the fingertip to the level of the DIP joint, and fishmouth type incision was used to exclude the wound and find healthy proximal tissue for advancement flap. The dissection was then carried down to the phalanx itself, and excision of the germinal matrix as well as the phalanx itself by using a 15 blade scalpel to divide the ligaments on either side of the joint. The wound was copiously irrigated, and the skin was reapproximated with 5-0 nylon sutures. The patient had a tourniquet during the beginning of the procedure, which was removed at the end. The wound at the fingertip was found to be with good capillary refill less than 2 seconds. The patient was placed in a soft bulky splint. She tolerated the procedure well, was brought to the recovery room in stable condition. Shannon [id number]
--- NOTE | 2017-02-28 13:51 | PATH ---
Surgical Pathology Report Patient Name: GAMA OLSON [facility] [place]. Rec. #: [id number] /Age/Gender: 1945 (Age: 71) / F Account: [id number] Location: [facility] AMBULATORY Taken: 02/22/2017 Received: 02/22/2017 Reported: 02/28/2017 Physicians: Jan Winn M.D. Specimen(s) Received LEFT RING FINGER DISTAL PHALANX Clinical History Acute lymphangitis Final Diagnosis LEFT RING FINGER DISTAL PHALANX, PARTIAL AMPUTATION: DISTAL PHALANX SHOWING GANGRENOUS NECROSIS OF SKIN AND UNDERLYING SOFT TISSUE AND ACUTE OSTEOMYELITIS OF UNDERLYING BONE. RESECTION MARGINS OF SKIN, SOFT TISSUE AND BONE APPEAR VIABLE. Electronically Signed Keisha Jalloh M.D. Gross Description Received in formalin labeled "left ring finger distal phalanx," is a 2.2 x 1.5 x 1.3 cm distal finger amputation. The epidermal surface displays a 1.5 x 1.1 cm black dougherty, ulcerated, gangrenous lesion on the volar surface. The lesion extends to and possibly involves the underlying bone. The lesion is at 0.4 cm from the skin and soft tissue margin of resection. Fixing Machine Operator sections are submitted in 3 cassettes as follows: 1-lesion with underlying bone, following decalcification; 2-bone margin, following decalcification; 3-skin and soft tissue margin. 02/23/201702/23/2017
== END 2017-02-22 15:00 | disposition home or self-care (01) ==
LOC: FASU 10:46
PROVIDERS: ATTEND Surgery Surgery of the Hand
PROC: 0X6T0Z3 Detachment at Left Ring Finger, Low, Open Approach (ICD-10-PCS; principal; 2017-02-22 13:12)
DX: M87.845 Other osteonecrosis, left finger(s) (principal); E11.9 Type 2 diabetes mellitus without complications; I73.9 Peripheral vascular disease, unspecified; Z89.029 Acquired absence of unspecified finger(s)
CPT/HCPCS: 88307-TC; 88311-TC

== ENCOUNTER 2017-03-14 06:09 | Day surgery (SDC) | payer OTHER ==
[2017-03-10 10:58] VITALS: BMI 29.0
[2017-03-14 07:07] VITALS: TEMP 97.4
[2017-03-14 07:32] LABS: ANION GAP 10 (8-16); CALCIUM 8.5 mg/dl (8.4-10.2); CO2 23 mmol/L (22-28); CREATININE 6.2 mg/dl (0.6-1.3); GLUCOSE,RANDOM 71 mg/dl (74-106)
[2017-03-14] MEDS ORDERED: PROPOFOL 20 ML ONE ×2 (07:38→08:06)
[2017-03-14] MEDS ORDERED: LIDOCAINE HCL/PF 2% SDV 5ML VIAL ONE (07:38)
[2017-03-14] MEDS ORDERED: SUCCINYLCHOLINE CHLORIDE 200 MG/10 ML VIAL ONE (07:38)
[2017-03-14 07:46] LABS: INR 3.06 (0.82-1.09); PROTHROMBIN TIME (PATIENT) 33.5 SEC (10.2-13.0)
[2017-03-14] MEDS ORDERED: BUPIVACAINE HCL/PF 0.5% (5MG/ML) 10 ML VIAL ONE (08:17)
[2017-03-14] MEDS ORDERED: BACITRACIN 15 GM TUBE TOPICAL OINTMENT ONE (08:25)
[2017-03-14 09:08] VITALS: PULSE 65
[2017-03-14] MEDS ORDERED: ONDANSETRON 4 MG/2 ML VIAL IVPUSH PRN (09:38)
[2017-03-14] MEDS ORDERED: oxyCODONE HCL 5 MG TABLET PO PRN ×2 (09:39→09:40)
[2017-03-14] MEDS ORDERED: PROMETHAZINE HCL 25 MG/1 ML VIAL IVPUSH PRN (09:44)
[2017-03-14 09:48] VITALS: BP 157/80
--- NOTE | 2017-03-15 19:45 | OP ---
DATE OF OPERATION: 03/14/2017 PREOPERATIVE DIAGNOSIS: Left middle finger gangrene. POSTOPERATIVE DIAGNOSIS: Left middle finger gangrene. PROCEDURE: Left middle finger distal phalanx amputation with local advancement abarca flap. SURGEON: Abebe Winn MD THORACIC SURGEON: None. ANESTHESIA: Local sedation. ESTIMATED BLOOD LOSS: Minimal. COMPLICATIONS: None. TOURNIQUET TIME: 14 minutes. OPERATIVE INDICATIONS: This is a 71-year-old female patient with severe arthrosclerosis and diabetes and multiple amputations in her medical history. She, over the last 2 weeks, has experienced a progressive dry gangrene involving the entirety of the distal aspect of the left middle finger. The patient had recently undergone similar symptoms involving the ring finger and underwent a distal amputation at that level. She presents today for an amputation of the gangrenous digit. We discussed the risks, benefits, and alternatives at great length including the possibility and likelihood of needing further amputations at higher levels should the gangrene progress, as well as wound breakdown and infection. The patient understood all these risks, as well as the benefits and alternatives. All questions were answered, and consent was signed. OPERATIVE COURSE: The patient was brought to the operating room where a timeout was performed. Anesthesia administered sedation, and a digital nerve block using 2% lidocaine and 0.5% Marcaine were infused into to the middle finger. The hand was prepped and draped in the standard sterile fashion. A sterile finger tourniquet was applied to the long finger. Using a 15-blade scalpel, mid-axial incisions were made as well as an incision to create a abarca involving the volar aspect of the digit which had a larger portion of live tissue, although both sides had relatively complete gangrenous soft tissue. The incision design was made with 2-mm proximal margins to frankly necrotic tissue. The dissection was then carried down to the level of the extensor tendons, and neurectomies were performed as well. The phalanx was removed by sharply dividing the ligaments. Once the tip of the finger was removed, the wound was copiously irrigated. The tourniquet was removed and inspected for capillary refill. The middle phalanx was found to be protruding once all the necrotic tissue was removed. Therefore, a bone cutter was used to excise the condylar head of the middle phalanx. A rasp was used to smooth down the remnant shaft of the middle phalanx. Next, the abarca advancement flap was sutured into place using 5-0 interrupted nylon sutures. The patient was placed in a soft bulky dressing and tolerated the procedure well. She will follow up in my office later this week. ABEBE WINN M.D. [id number]
--- NOTE | 2017-03-18 14:06 | PATH ---
Surgical Pathology Report Patient Name: GAMA OLSON [facility]. Rec. #: [id number] /Age/Gender: 1945 (Age: 71) / F Account: [id number] Location: COUNTS INCLUDE 234 BEDS AT THE [facility] AMB[facility] Taken: 03/14/2017 Received: 03/14/2017 Reported: 03/18/2017 Physicians: Jan Winn M.D. Specimen(s) Received LEFT MIDDLE FINGER DISTAL PHALANX Clinical History Left middle finger gangrene Final Diagnosis LEFT MIDDLE FINGER, PARTIAL AMPUTATION: GANGRENOUS NECROSIS WITH ASSOCIATED ACUTE OSTEOMYELITIS. NECROSIS EXTENDS TO PROXIMAL ASPECT OF AMPUTATION SPECIMEN, AND SKIN AND SOFT TISSUE SEPARATELY RECEIVED IN SPECIMEN CONTAINER SHOW ISCHEMIC CHANGES. BONE MARGIN APPEARS FREE OF OSTEOMYELITIS. Comment: Recommend correlation with clinical findings and follow up as clinically indicated. Electronically Signed Luis Carlos Avalos M.D. Gross Description Received in formalin labeled "left middle finger distal phalanx," is a 2.5 x 1.7 x 1.5 cm distal finger amputation. The entire specimen displays a black, gangrenous lesion which involves the underlying bone as well as the skin, soft tissue and bone margins. Separately received within the same container is a 2.5 x 1.5 x 0.5 cm aggregate of skin, soft tissue and bone fragments. Horse Race Timer sections are submitted in 4 cassettes as follows: 1-bone margin, following decalcification; 2-lesion with underlying bone, following decalcification; 3-skin and soft tissue margin; 4-separately received fragments, following decalcification. 03/15/2017 saudi03/15/2017
== END 2017-03-14 09:55 | disposition home or self-care (01) ==
LOC: FASU 06:09
PROVIDERS: ATTEND Surgery Surgery of the Hand
PROC: 0X6R0Z3 Detachment at Left Middle Finger, Low, Open Approach (ICD-10-PCS; principal; 2017-03-14 08:12)
DX: I96 Gangrene, not elsewhere classified (principal)
CPT/HCPCS: 36415; 80048; 85610; 88305-TC; 88311-TC

== ENCOUNTER 2017-04-29 13:00 | Inpatient (IN) | payer OTHER ==
[2017-04-29 13:28] VITALS: BMI 28.8
[2017-04-29 13:55] LABS: BASOPHIL 0.2 % (0-2.0); EOSINOPHIL 3.2 % (0-4.5); MCH 30.8 pg (25.7-33.7); MCHC 32.3 g/dl (32.0-36.0); MEAN CELL VOLUME 95.3 fl (80-96); MEAN PLT VOLUME 8.6 fl (7.5-11.1); NEUTROPHILS 69.6 % (42.8-82.8); PLATELET COUNT 278 K/MM3 (134-434); RDW 15.3 % (11.6-15.6); WHITE BLOOD COUNT 8.6 K/mm3 (4.0-10.0)
[2017-04-29 14:11] LABS: INR 1.26 (0.82-1.09); PROTHROMBIN TIME (PATIENT) 13.9 SEC (9.98-11.88)
[2017-04-29 14:13] LABS: ACTIVATED PTT 31.8 SECONDS (26.9-34.4)
--- NOTE | 2017-04-29 14:33 | CON.NEP ---
Consult Consult Specialty:: Nephrology (Nathan/Anthony) Referred by:: Dr. Lopez Reason for Consultation:: ESRD on HD, catheter malfunction - History of Present Illness Chief Complaint: Bleeding from dialysis catheter site History of Present Illness: This is a 71 year old woman with PMhx of ESRD on HD, CAD, PVD, DM Type 2 on insulin, Afib on Coumadin PVD s/p multiple amputations, multiple failed dialysis accesses presents from dialysis with bleeding from dialysis catheter skin exit site. Pt had catheter exchanged yesterday and initially did not have good flow and catheter was flushed by vascular surgeon. Pt continued on dialysis and there was increasing mass/hematoma on chest wall and with brisk bleeding at catheter skin exit site when blood was returned via the venous port of the catheter. HD was discontinued and pt was sent to the ER. 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 No: Hematuria Infectious Disease: Yes: MRSA Musculoskeletal: Yes: Other (R rotator cuff repair) Endocrine: Yes: Diabetes Mellitus, Hypothyroidism Additional Medical History: Steal syndrome , PVD- s//p surgery. End stage renal disease (hemodialysis 3x per week). Congestive heart failure. Diabetes. Hypertension. Hyperlipidemia. Peripheral vascular occlusive disease. Hypothyroidism. Anemia. Gastroesophageal reflux disease - Past Surgical History Past Surgical History: Yes: Amputation (Rt AKA, left TMA), Hysterectomy ( thyroid surgery), Stent - Alcohol/Substance Use Hx Alcohol Use: No History of Substance Use: reports: None - Smoking History Smoking history: Never smoked Have you smoked in the past 12 months: No Aproximately how many cigarettes per day: 0 - Social History ADL: Independent History of Recent Travel: No Home Medications - Allergies Allergies/Adverse Reactions: Allergies Allergy/AdvReac Type Severity Reaction Status Date / Time adhesive tape Allergy Severe SKIN TEAR Verified 04/29/17 14:07 Sulfa (Sulfonamide Allergy Unknown DOESN'T Verified 04/29/17 14:07 Antibiotics) REMEMBER [Sulfa(Sulfonamide Antibiotics)] amoxicillin trihydrate AdvReac Severe DIARRHEA Verified 04/29/17 14:07 [From Augmentin] potassium clavulanate AdvReac Severe DIARRHEA Verified 04/29/17 14:07 [From Augmentin] - Home Medications Home Medications: Ambulatory Orders Calcium Acetate [Phoslo -] 667 mg PO TID 04/06/16 Levothyroxine [Synthroid -] 200 mcg PO DAILY 08/10/16 Polyethylene Glycol 3350 [Miralax 119 gm Btl -] 17 gm PO DAILY PRN #30 bottle Aspirin [ASA -] 81 mg PO DAILY 02/16/17 Clopidogrel Bisulfate [Plavix -] 75 mg PO Q48H 02/16/17 Cyanocobalamin [Vitamin B12 -] 100 mcg PO DAILY 02/16/17 Glipizide [Glipizide ER] 5 mg PO DAILY 02/16/17 Insulin Aspart [Novolog] 0 unit SQ PRN PRN 02/16/17 Warfarin Sodium [Coumadin] 2 mg PO HS 02/16/17 Insulin Detemir [Levemir Flextouch] 20 unit SQ BID 04/29/17 Lactobacillus Acidophilus [Probiotic Acidophilus] 1 each PO DAILY 04/29/17 Family Disease History - Family Disease History Family History: Unremarkable Review of Systems - Review of Systems Constitutional: reports: No Symptoms Neck: reports: No Symptoms Cardiovascular: reports: No Symptoms Respiratory: reports: No Symptoms Gastrointestinal: reports: No Symptoms Musculoskeletal: reports: No Symptoms Integumentary: reports: Bruising Neurological: reports: No Symptoms Nephrology Consult - Height Height: 5 ft 7 in - Weight Weight: 184 lb 1.376 oz - BMI Body Mass Index (BMI): 28.8 - Lab Results CBC,BMP: CBC, BMP 04/29/17 13:46 - Imaging Chest X-ray: Image Reviewed - Physical Examination Vital Signs: Vital Signs Temperature 97.8 F 04/29/17 13:22 Pulse Rate 58 L 04/29/17 13:22 Respiratory Rate 18 04/29/17 13:22 Blood Pressure 130/62 04/29/17 13:22 O2 Sat by Pulse Oximetry (%) 95 04/29/17 13:22 Constitutional: Yes: No Distress, Calm Eyes: Yes: Conjunctiva Clear HENT: Yes: Atraumatic, Normocephalic Neck: Yes: Supple Cardiovascular: Yes: Regular Rate and Rhythm, S1, S2. No: JVD, Murmur, Rub Respiratory: Yes: Regular, CTA Bilaterally Gastrointestinal: Yes: Normal Bowel Sounds, Soft, Abdomen, Obese Access for Hemodialysis: Permacath (dressing changed in the ED, no bleeding at this time) Extremities: Yes: Amputation. No: Cold, Cool, Cyanosis Neurological: Yes: Alert, Oriented Problem List - Problems (1) Bleeding Code(s): R58 - HEMORRHAGE, NOT ELSEWHERE CLASSIFIED (2) ESRD (end stage renal disease) on dialysis Code(s): N18.6 - END STAGE RENAL DISEASE Z99.2 - DEPENDENCE ON RENAL DIALYSIS (3) Peripheral vascular disease due to secondary diabetes Code(s): E13.51 - OTH DIABETES W DIABETIC PERIPHERAL ANGIOPATHY W/O GANGRENE (4) DM type 2 causing complication Code(s): E11.8 - TYPE 2 DIABETES MELLITUS WITH UNSPECIFIED COMPLICATIONS Assessment/Plan 71 year old woman with PMhx of ESRD on HD, CAD, PVD, DM Type 2 on insulin, PVD s /p multiple amputations, multiple failed dialysis accesses presents from dialysis with bleeding from dialysis catheter skin exit site. #Bleeding from dialysis catheter site/Catheter malfunction Vascular Sx evaluation Consider US of chest wall to access for hematoma #ESRD on HD Today is the patients dialysis day, CMP sent and results and pending will defer any dialysis until access issue is resolved. #Afib on Coumadin INR is subtheraptic would consider holding given bleeding and possible vascular procedures Thank you Will follow Wan Cruz DO
[2017-04-29 14:36] LABS: ALBUMIN 3.1 g/dl (3.4-5.0); ANION GAP 14 (8-16); BILIRUBIN,TOTAL 0.8 mg/dL (0.2-1.0); CALCIUM 7.5 mg/dL (8.5-10.1); CO2 21 mmol/L (21-32); CREATININE 6.2 mg/dL (0.55-1.02); GLUCOSE,RANDOM 267 mg/dL (74-106); SGPT/ALT 18 U/L (12-78); TOT PROT 6.9 g/dl (6.4-8.2)
[2017-04-29 14:37] LABS: ALK PHOS 98 U/L (45-117)
[2017-04-29 14:46] LABS: MAGNESIUM 2.6 mg/dL (1.8-2.4); SGOT/AST 13 U/L (15-37)
--- NOTE | 2017-04-29 15:07 | PDOC ---
History of Present Illness - History of Present Illness Initial Comments: 04/29/17 15:32 71 year old female with a PMHx of AFIB, CAD, CHF, HTN, HLD, COPD, renal failure (on dialysis MWF), diabetes, hypothyroidism presents to the ED with bleeding from her shunt. She had the shunt placed yesterday in the OR. Dr. Walter came to dialysis today to fix the shunt, but after he left it began bleeding again. Patient denies fever, chills, nausea, vomiting, diarrhea. Surgeon: Dr. Supa Walter PCP: Dr. Jessenia Galarza School Year Nanny: Dr. Layla Evans <Penny Boyd - Last Filed: 04/29/17 15:32> <Moreno Espinal - Last Filed: 04/29/17 17:12> - General History Source: Patient, Old Records Exam Limitations: No Limitations <Seun Lopez - Last Filed: 05/02/17 12:41> - General Chief Complaint: Dialysis Shunt Problem Stated Complaint: Dialysis Shunt Problem Time Seen by Provider: 04/29/17 13:08 Past History <Penny Boyd - Last Filed: 04/29/17 15:32> <Moreno Espinal - Last Filed: 04/29/17 17:12> - Past Medical History Anemia: Yes Asthma: No Cancer: No Cardiac Disorders: Yes (Atherosclerotic Heart Disease, Ischemia) CVA: No COPD: No CHF: Yes (6 YEARS AGO) Dementia: No Diabetes: Yes (Type II) Dialysis: Yes (-W-) GI Disorders: No Disorders: Yes (CRF;dialysis -- [place] [id number]) HTN: Yes Hypercholesterolemia: Yes Liver Disease: No Suicide Attempt (Hx): No Seizures: No Thyroid Disease: Yes (Thyrotoxicosis) Other medical history: Vitamin B deficiency, Vit D deficiency - Surgical History Abdominal Surgery: No Appendectomy: No Cardiac Surgery: Yes (STENTS X3) Cholecystectomy: No Lung Surgery: No Neurologic Surgery: No Orthopedic Surgery: Yes (R.Rotator Cuff, R.AKA. LEFT MID FOOT AMPUTATION) - Immunization History Immunization Up to Date: Yes - Psycho/Social/Smoking Cessation Hx Anxiety: No Suicidal Ideation: No Smoking Status: No Smoking History: Never smoked Have you smoked in the past 12 months: No Number of Cigarettes Smoked Daily: 0 Hx Alcohol Use: No Drug/Substance Use Hx: No Substance Use Type: None Hx Substance Use Treatment: No <Seun Lopez - Last Filed: 05/02/17 12:41> - Past Medical History Allergies/Adverse Reactions: Allergies Allergy/AdvReac Type Severity Reaction Status Date / Time adhesive tape Allergy Severe SKIN TEAR Verified 04/29/17 14:07 Sulfa (Sulfonamide Allergy Unknown DOESN'T Verified 04/29/17 14:07 Antibiotics) REMEMBER [Sulfa(Sulfonamide Antibiotics)] amoxicillin trihydrate AdvReac Severe DIARRHEA Verified 04/29/17 14:07 [From Augmentin] potassium clavulanate AdvReac Severe DIARRHEA Verified 04/29/17 14:07 [From Augmentin] Home Medications: Ambulatory Orders Calcium Acetate [Phoslo -] 667 mg PO TID 04/06/16 Levothyroxine [Synthroid -] 200 mcg PO DAILY 08/10/16 Polyethylene Glycol 3350 [Miralax 119 gm Btl -] 17 gm PO DAILY PRN #30 bottle Aspirin [ASA -] 81 mg PO DAILY 02/16/17 Clopidogrel Bisulfate [Plavix -] 75 mg PO Q48H 02/16/17 Cyanocobalamin [Vitamin B12 -] 100 mcg PO DAILY 02/16/17 Glipizide [Glipizide ER] 5 mg PO DAILY 02/16/17 Insulin Aspart [Novolog] 0 unit SQ PRN PRN 02/16/17 Warfarin Sodium [Coumadin] 2 mg PO HS 02/16/17 Insulin Detemir [Levemir Flextouch] 20 unit SQ BID 04/29/17 Lactobacillus Acidophilus [Probiotic Acidophilus] 1 each PO DAILY 04/29/17 Review of Systems - Review of Systems Comments:: 04/29/17 15:32 GENERAL/CONSTITUTIONAL: No fever or chills. No weakness. HEAD, EYES, EARS, NOSE AND THROAT: No change in vision. No ear pain or discharge. No sore throat. CARDIOVASCULAR: No chest pain or shortness of breath. RESPIRATORY: No cough, wheezing, or hemoptysis. GASTROINTESTINAL: No nausea, vomiting, diarrhea or constipation. GENITOURINARY: dysuria, frequency, or change in urination. MUSCULOSKELETAL: No joint or muscle swelling or pain. No neck or back pain. SKIN: (+) bleeding shunt. No rash NEUROLOGIC: No headache, vertigo, loss of consciousness, or change in strength/ sensation. ENDOCRINE: No increased thirst. No abnormal weight change. HEMATOLOGIC/LYMPHATIC: No anemia, easy bleeding, or history of blood clots. ALLERGIC/IMMUNOLOGIC: No hives or skin allergy. <Penny Boyd - Last Filed: 04/29/17 15:32> *Physical Exam - Vital Signs Last Vital Signs Temp Pulse Resp BP Pulse Ox 97.8 F 78 18 145/53 95 04/29/17 13:22 04/29/17 15:16 04/29/17 15:16 04/29/17 15:16 04/29/17 15:16 - Physical Exam Comments: 04/29/17 15:32 GENERAL: Awake, alert, and fully oriented, in no acute distress HEAD: No signs of trauma EYES: PERRLA, EOMI, sclera anicteric, conjunctiva clear ENT: Auricles normal inspection, hearing grossly normal, nares patent, oropharynx clear without exudates. Moist mucosa NECK: Normal ROM, supple, no lymphadenopathy, JVD, or masses LUNGS: Breath sounds equal, clear to auscultation bilaterally. No wheezes, and no crackles HEART: Irregularly irregular rate and rhythm, normal S1 and S2, no murmurs, rubs or gallops ABDOMEN: Soft, nontender, normoactive bowel sounds. No guarding, no rebound. No masses EXTREMITIES: (+) s/p right AKA. Normal range of motion, no edema. No clubbing or cyanosis. No cords, erythema, or tenderness NEUROLOGICAL: Cranial nerves II through XII grossly intact. Normal speech, normal gait SKIN: Right chest permacath with no active bleeding. Warm, Dry, normal turgor, no rashes or lesions noted. <Penny Boyd - Last Filed: 04/29/17 15:32> - Vital Signs Last Vital Signs Temp Pulse Resp BP Pulse Ox 97.8 F 82 18 132/89 100 04/29/17 13:22 04/29/17 16:59 04/29/17 16:59 04/29/17 16:59 04/29/17 16:59 <Moreno Espinal - Last Filed: 04/29/17 17:12> - Vital Signs Last Vital Signs Temp Pulse Resp BP Pulse Ox 97.8 F 58 L 18 130/62 95 04/29/17 13:22 04/29/17 13:22 04/29/17 13:22 04/29/17 13:22 04/29/17 13:22 <Seun Lopez - Last Filed: 05/02/17 12:41> Heart Score/ECG Review #1 ECG reviewed & interpreted by me at: 14:00 04/29/17 15:08 atrial fibrillation 83 rightward axis TWI II, no std/rene, QTC 488 msec <Seun Lopez - Last Filed: 05/02/17 12:41> ED Treatment Course - LABORATORY CBC & Chemistry Diagram: 04/29/17 13:46 04/29/17 13:46 - ADDITIONAL ORDERS Additional order review: Laboratory Results 04/29/17 04/29/17 13:46 13:46 INR 1.26 H PTT (Actin FS) 31.8 D Sodium 135 L Potassium 6.1 H* D Chloride 100 Carbon Dioxide 21 Anion Gap 14 BUN 58 H D Creatinine 6.2 H D Creat Clearance w eGFR 6.62 Random Glucose 267 H D Calcium 7.5 L Magnesium 2.6 H D Total Bilirubin 0.8 D AST 13 L D ALT 18 D Alkaline Phosphatase 98 Total Protein 6.9 Albumin 3.1 L 04/29/17 13:46 RBC 3.76 MCV 95.3 MCHC 32.3 RDW 15.3 MPV 8.6 Neutrophils % 69.6 Lymphocytes % 20.9 Monocytes % 6.1 Eosinophils % 3.2 Basophils % 0.2 <Penny Boyd - Last Filed: 04/29/17 15:32> - LABORATORY CBC & Chemistry Diagram: 04/29/17 13:46 04/29/17 13:46 - ADDITIONAL ORDERS Additional order review: Laboratory Results 04/29/17 04/29/17 13:46 13:46 INR 1.26 H PTT (Actin FS) 31.8 D Sodium 135 L Potassium 6.1 H* D Chloride 100 Carbon Dioxide 21 Anion Gap 14 BUN 58 H D Creatinine 6.2 H D Creat Clearance w eGFR 6.62 Random Glucose 267 H D Calcium 7.5 L Magnesium 2.6 H D Total Bilirubin 0.8 D AST 13 L D ALT 18 D Alkaline Phosphatase 98 Total Protein 6.9 Albumin 3.1 L 04/29/17 13:46 RBC 3.76 MCV 95.3 MCHC 32.3 RDW 15.3 MPV 8.6 Neutrophils % 69.6 Lymphocytes % 20.9 Monocytes % 6.1 Eosinophils % 3.2 Basophils % 0.2 <Moreno Espinal - Last Filed: 04/29/17 17:12> - LABORATORY CBC & Chemistry Diagram: 05/02/17 05:35 04/30/17 05:55 - ADDITIONAL ORDERS Additional order review: Laboratory Results 04/29/17 04/29/17 13:46 13:46 INR 1.26 H PTT (Actin FS) 31.8 D Sodium 135 L Potassium 6.1 H* D Chloride 100 Carbon Dioxide 21 Anion Gap 14 BUN 58 H D Creatinine 6.2 H D Creat Clearance w eGFR 6.62 Random Glucose 267 H D Calcium 7.5 L Magnesium 2.6 H D Total Bilirubin 0.8 D AST 13 L D ALT 18 D Alkaline Phosphatase 98 Total Protein 6.9 Albumin 3.1 L 04/29/17 13:46 RBC 3.76 MCV 95.3 MCHC 32.3 RDW 15.3 MPV 8.6 Neutrophils % 69.6 Lymphocytes % 20.9 Monocytes % 6.1 Eosinophils % 3.2 Basophils % 0.2 - RADIOLOGY Radiology Studies Ordered: Category Date Time Status CHEST X-RAY PORTABLE* [RAD] Stat Radiology 04/29/17 14:05 Taken <Seun Lopez - Last Filed: 05/02/17 12:41> Medical Decision Making - Medical Decision Making 04/29/17 17:[address] Cruz, Go to Dialysis now, potassium will come down, to regular floor after dialysis <Moreno Espinal - Last Filed: 04/29/17 17:12> - Medical Decision Making 04/29/17 15:05 A portion of this note was documented by scribe services under my direction. I have reviewed the details of the note, within reason, and agree with the documentation with the following case summary and management plan written by me. Patient treated in the ED. Nursing notes are reviewed and incorporated into the medical decision-making. Vital signs reviewed. Peripheral IV access obtained by the nurse, laboratory studies are drawn and sent, reviewed and interpreted by myself. Vital Signs Temp Pulse Resp BP Pulse Ox 97.8 F 58 L 18 130/62 95 04/29/17 13:22 04/29/17 13:22 04/29/17 13:22 04/29/17 13:22 04/29/17 13:22 71 year old female with past medical history of end-stage renal disease on dialysis, coronary disease, peripheral vascular disease, diabetes, atrial fibrillation on Coumadin, multiple applications including a right-sided AKA, recent permacath placement several days ago presents with dysfunctional right permacath. Patient underwent dialysis and permacath was not working. Was seen by both Dr. Jacki Walter and Dr. Layla Pascual. It initially was flushing and working but the machine was developing resistance and concerns for malfunction. Patient was sent to the ED without completing dialysis. Patient has no symptoms at this time. I discussed the case with both the vascular surgeon and legal consultant. Potassium is 6.1 but with no hyperkalemic ECG changes. Will give HyperK medical treatment. Decision is agree to admit the patient. Dr. Anthony Blas had evaluated patient. Case discussed with Dr. Galarza who agrees with tele admission. Case discussed in detail with admitting physician including history, physical exam and ancillary studies. Admitting physician has assumed care for the patient, will follow all pending diagnostics and will complete the evaluation and treatment. 04/29/17 15:23 INR, PTT INR 1.26 (0.82-1.09) H 04/29/17 13:46 Pt has afib. Subtherapeutic. Will need to be admitted for INR correction. <Seun Lopez - Last Filed: 05/02/17 12:41> *DC/Admit/Observation/Transfer - Attestations Scribe Attestion: 04/29/17 15:32 Documentation prepared by Penny Boyd, acting as medical technician for Seun Lopez MD. <Penny Boyd - Last Filed: 04/29/17 15:32> <Moreno Espinal - Last Filed: 04/29/17 17:12> - Discharge Dispostion Admit: Yes <Seun Lopez - Last Filed: 05/02/17 12:41> Diagnosis at time of Disposition: Hemodialysis catheter dysfunction Qualifiers: Encounter type: initial encounter Qualified Code(s): T82.41XA - Breakdown ( mechanical) of vascular dialysis catheter, initial encounter - Referrals
[2017-04-29] MEDS ORDERED: POLYETHYLENE GLYCOL 3350 119 GM BTL PO PRN (17:28)
[2017-04-29] MEDS ORDERED: ACETAMINOPHEN 325 MG TABLET (FP) PO PRN ×2 (17:29→21:51)
[2017-04-29] MEDS ORDERED: SODIUM POLYSTYRENE SULFONATE 15 GM/60 ML BOTTLE PO ONE ×2 (19:31→20:45)
--- NOTE | 2017-04-29 19:49 | PN ---
Progress Note (short form) - Note Progress Note: [facility] Permacath not working Will place new permacath in am. spoke to renal. They will treat for hyperkalemia Supa Walter DO
[2017-04-29] MEDS: INSULIN DETEMIR 100 UNITS/ML MDV SQ SCH (21:24)
[2017-04-29] MEDS ORDERED: oxyCODONE HCL 5 MG TABLET PO PRN (21:51)
[2017-04-29] MEDS ORDERED: ALPRAZolam 0.25 MG TABLET PO ONE (22:00)
[2017-04-30] MEDS: INSULIN DETEMIR 100 UNITS/ML MDV SQ SCH ×2 (06:45→21:58)
[2017-04-30] MEDS ORDERED: LEVOTHYROXINE NA 200 MCG TABLET PO SCH (07:00)
[2017-04-30] MEDS ORDERED: INSULIN SLIDING SCALE (NOVOLOG) 1 VIAL SQ SCH (07:00)
[2017-04-30] MEDS ORDERED: CALCIUM ACETATE 667 MG CAPSULE (FP) PO SCH (08:00)
[2017-04-30 08:08] LABS: EOSINOPHIL 4.1 % (0-4.5); MCH 30.6 pg (25.7-33.7); MCHC 32.3 g/dl (32.0-36.0); MEAN CELL VOLUME 94.7 fl (80-96); MEAN PLT VOLUME 8.7 fl (7.5-11.1); NEUTROPHILS 68.1 % (42.8-82.8); PLATELET COUNT 272 K/MM3 (134-434); RDW 15.6 % (11.6-15.6); WHITE BLOOD COUNT 8.5 K/mm3 (4.0-10.0)
--- NOTE | 2017-04-30 08:09 | HP ---
Admitting History and Physical - Primary Care Physician PCP: Jessenia Galarza - Admission History of Present Illness: This is a 71 year old woman with PMhx of ESRD on HD, CAD, PVD, DM Type 2 on insulin, Afib on Coumadin PVD s/p multiple amputations, multiple failed dialysis accesses presents from dialysis with bleeding from dialysis catheter skin exit site. Pt had catheter exchanged yesterday and initially did not have good flow and catheter was flushed by vascular surgeon. Pt continued on dialysis and there was increasing mass/hematoma on chest wall and with brisk bleeding at catheter skin exit site when blood was returned via the venous port of the catheter. HD was discontinued and pt was sent to the ER. Case was discussed with er physician last night Pt k -6.1 -- treated for same Pt seen examined today in tele. asa/plavix/ coumadin held. chart reviewed. going to or now I had discussed with Dr. Aydee Walter also yesterday daughter at bedside denies cp/ sob/ abd pain. History Source: Patient, Family Member, Medical Record Limitations to Obtaining History: No Limitations - Past Medical History [employer]: Yes: Other Cardiovascular: Yes: AFIB, CAD, CHF, HTN, Hyperlipdemia, Other (coronary stents x 3) Pulmonary: Yes: COPD Renal/: Yes: Renal Failure, Hemodialysis. No: Hematuria Heme/Onc: Yes: Anemia Infectious Disease: Yes: MRSA Musculoskeletal: Yes: Other (R rotator cuff repair) Endocrine: Yes: Diabetes Mellitus, Hypothyroidism - Past Surgical History Past Surgical History: Yes: Amputation (Rt AKA, left TMA), Hysterectomy ( thyroid surgery), Stent - Smoking History Smoking history: Never smoked Have you smoked in the past 12 months: No Aproximately how many cigarettes per day: 0 - Alcohol/Substance Use Hx Alcohol Use: No History of Substance Use: reports: None - Social History ADL: Independent History of Recent Travel: No Home Medications - Allergies Allergies/Adverse Reactions: Allergies Allergy/AdvReac Type Severity Reaction Status Date / Time adhesive tape Allergy Severe SKIN TEAR Verified 04/29/17 14:07 Sulfa (Sulfonamide Allergy Unknown DOESN'T Verified 04/29/17 14:07 Antibiotics) REMEMBER [Sulfa(Sulfonamide Antibiotics)] amoxicillin trihydrate AdvReac Severe DIARRHEA Verified 04/29/17 14:07 [From Augmentin] potassium clavulanate AdvReac Severe DIARRHEA Verified 04/29/17 14:07 [From Augmentin] - Home Medications Home Medications: Ambulatory Orders Calcium Acetate [Phoslo -] 667 mg PO TID 04/06/16 Levothyroxine [Synthroid -] 200 mcg PO DAILY 08/10/16 Polyethylene Glycol 3350 [Miralax 119 gm Btl -] 17 gm PO DAILY PRN #30 bottle Aspirin [ASA -] 81 mg PO DAILY 02/16/17 Clopidogrel Bisulfate [Plavix -] 75 mg PO Q48H 02/16/17 Cyanocobalamin [Vitamin B12 -] 100 mcg PO DAILY 02/16/17 Glipizide [Glipizide ER] 5 mg PO DAILY 02/16/17 Insulin Aspart [Novolog] 0 unit SQ PRN PRN 02/16/17 Warfarin Sodium [Coumadin] 2 mg PO HS 02/16/17 Insulin Detemir [Levemir Flextouch] 20 unit SQ BID 04/29/17 Lactobacillus Acidophilus [Probiotic Acidophilus] 1 each PO DAILY 04/29/17 Review of Systems Unable to obtain ROS, reason: see [facility] Physical Examination Vital Signs: Vital Signs Temperature 98.7 F 04/30/17 05:39 Pulse Rate 94 H 04/30/17 05:39 Respiratory Rate 18 04/30/17 05:39 Blood Pressure 134/79 04/30/17 05:39 O2 Sat by Pulse Oximetry (%) 98 04/29/17 21:00 Constitutional: Yes: No Distress, Anxious Eyes: Yes: Conjunctiva Clear Neck: Yes: Supple, Trachea Midline Cardiovascular: Yes: Pulse Irregular. No: Regular Rate and Rhythm Respiratory: Yes: Diminished Gastrointestinal: Yes: Soft Extremities: Yes: Amputation Imaging - Results Chest X-ray: Report Reviewed Problem List - Problems (1) Hyperkalemia Code(s): E87.5 - HYPERKALEMIA (2) Nonpatent hemodialysis access site Code(s): T82.898A - OTH COMPLICATION OF VASCULAR PROSTH DEV/GRFT, INIT Qualifiers: Encounter type: initial encounter Qualified Code(s): T82.898A - Other specified complication of vascular prosthetic devices, implants and grafts, initial encounter (3) Bleeding Code(s): R58 - HEMORRHAGE, NOT ELSEWHERE CLASSIFIED (4) ESRD (end stage renal disease) on dialysis Code(s): N18.6 - END STAGE RENAL DISEASE Z99.2 - DEPENDENCE ON RENAL DIALYSIS (5) Hemodialysis catheter dysfunction Code(s): T82.41XA - BREAKDOWN (MECHANICAL) OF VASCULAR DIALYSIS CATHETER, INIT Qualifiers: Encounter type: initial encounter Qualified Code(s): T82.41XA - Breakdown (mechanical) of vascular dialysis catheter, initial encounter (6) Peripheral vascular disease due to secondary diabetes Code(s): E13.51 - OTH DIABETES W DIABETIC PERIPHERAL ANGIOPATHY W/O GANGRENE (7) Anemia in ESRD (end-stage renal disease) Code(s): N18.6 - END STAGE RENAL DISEASE D63.1 - ANEMIA IN CHRONIC KIDNEY DISEASE (8) Atrial fibrillation Code(s): I48.91 - UNSPECIFIED ATRIAL FIBRILLATION Qualifiers: Atrial fibrillation type: unspecified Qualified Code(s): I48.91 - Unspecified atrial fibrillation (9) CAD (coronary artery disease) Code(s): I25.10 - ATHSCL HEART DISEASE OF [place] CORONARY ARTERY W/O ANG PCTRS Qualifiers: Coronary Disease-Associated Artery/Lesion type: [place] artery [place] vs. transplanted heart: [place] heart Associated angina: without angina Qualified Code(s): I25.10 - Atherosclerotic heart disease of [place] coronary artery without angina pectoris Assessment/Plan For OR today for access--urgent hold a/c continue other meds f/u labs. overall condition guarded due to multiple comorbidities will follow discussed with pts daughter who is at bedside. cc time--40 min.
--- NOTE | 2017-04-30 08:17 | EKG ---
Test Reason : Blood Pressure : / mmHG Vent. Rate : 083 BPM Atrial Rate : 093 BPM P-R Int : 000 ms QRS Dur : 088 ms QT Int : 416 ms P-R-T Axes : 000 092 012 degrees QTc Int : 488 ms ATRIAL FIBRILLATION RIGHTWARD AXIS NONSPECIFIC ST AND T WAVE ABNORMALITY ABNORMAL ECG WHEN COMPARED WITH ECG OF 23-DEC-2016 14:06, NO SIGNIFICANT CHANGE WAS FOUND Confirmed by ARMEN CASTILLO, JASWINDER ([id number]) on 04/30/2017 8:17:06 AM Referred By: Confirmed By:JASWINDER AYERS MD
[2017-04-30] MEDS ORDERED: ceFAZolin SODIUM 1 GM VIAL IVPB ONE (08:20)
[2017-04-30] MEDS ORDERED: MIDAZOLAM HCL 2 MG/2 ML SINGLE DOSE VIAL ONE (08:23)
[2017-04-30] MEDS ORDERED: ceFAZolin SODIUM 1 GM VIAL ONE (08:30)
[2017-04-30 08:32] LABS: INR 1.26 (0.82-1.09); PROTHROMBIN TIME (PATIENT) 13.9 SEC (9.98-11.88)
[2017-04-30 08:47] LABS: ALBUMIN 2.7 g/dl (3.4-5.0); ANION GAP 11 (8-16); CALCIUM 7.2 mg/dL (8.5-10.1); CO2 22 mmol/L (21-32); GLUCOSE,RANDOM 131 mg/dL (74-106)
[2017-04-30 09:00] LABS: ALK PHOS 84 U/L (45-117); BILIRUBIN,TOTAL 0.7 mg/dL (0.2-1.0); CREATININE 6.6 mg/dL (0.55-1.02); SGOT/AST 13 U/L (15-37); SGPT/ALT 18 U/L (12-78)
[2017-04-30] MEDS ORDERED: PROPOFOL 20 ML ONE (09:02)
[2017-04-30] MEDS ORDERED: HEPARIN NA (PORCINE) 5,000 UNITS/ML 1ML VIAL IVPUSH PRN ×3 (09:28→12:27)
--- NOTE | 2017-04-30 09:30 | OP ---
Operative Note - Note: Operative Date: 04/30/17 Pre-Operative Diagnosis: malfunctioning permacath Operation: Insertion of permacath Post-Operative Diagnosis: Same as Pre-op Surgeon: Supa Walter Anesthesia: Fractional Estimated Blood Loss (mls): 50 Operative Report Dictated: Yes
[2017-04-30] MEDS ORDERED: LACTOBACILLUS ACIDOPHILUS 1 EACH TAB (FP) PO SCH (10:00)
[2017-04-30] MEDS ORDERED: CYANOCOBALAMIN (VITAMIN B-12) 100 MCG TABLET PO SCH (10:00)
[2017-04-30] MEDS ORDERED: POLYETHYLENE GLYCOL 3350 119 GM BTL PO PRN (10:01)
[2017-04-30] MEDS ORDERED: ONDANSETRON 4 MG/2 ML VIAL IVPUSH PRN (10:26)
[2017-04-30] MEDS ORDERED: SODIUM CHLORIDE 1,000 ML IV SCH (10:30)
--- NOTE | 2017-04-30 10:45 | PN ---
Progress Note (short form) - Note Progress Note: Renal follow up for ESRD and hyperkalemia Pt seen and examined in the recovery room new catheter placed in left IJ right IJ catheter was not functioning on dialysis yesterday pt denies any sob, chest pain, abd pain, N/V/D was given kayexalate overnight for hyperkalemia Vital Signs Temperature 97.7 F 04/30/17 09:28 Pulse Rate 88 04/30/17 10:15 Respiratory Rate 18 04/30/17 10:15 Blood Pressure 130/96 04/30/17 10:15 O2 Sat by Pulse Oximetry (%) 100 04/30/17 10:15 Intake & Output 04/27/17 04/28/17 04/29/17 04/30/17 23:59 23:59 23:59 23:59 Intake Total 200 Balance 200 Weight 184 lb 1.376 oz Gen: NAD CVS:RRR Lungs: CTA Abd: Obese, NT/ND Ext: b/l amputations, trace sacral edema CBC, BMP 04/30/17 05:55 04/30/17 05:55 Current Medications Acetaminophen (Tylenol -) 650 mg PO Q6H PRN PRN Reason: FEVER OR PAIN Acetaminophen (Tylenol -) 325 mg PO Q6H PRN PRN Reason: PAIN Calcium Acetate (Phoslo -) 667 mg PO TIDCM [facility] Cyanocobalamin (Vitamin B12 -) 100 mcg PO DAILY [facility] Heparin Sodium (Porcine) (Heparin -) 1,000 unit IVPUSH PRN PRN PRN Reason: Heparin Heparin Sodium (Porcine) (Heparin -) 5,000 unit IVPUSH PRN PRN PRN Reason: Heparin Heparin Sodium/Dextrose (Heparin Infusion -) 500 mls @ 20 mls/hr IVPB TITR YOAN ; 1,000 UNITS/HR PRN Reason: Protocol Insulin Aspart (Novolog Vial Sliding Scale -) 1 vial SQ TIDAC YOAN PRN Reason: Protocol Insulin Detemir (Levemir Vial) 20 units SQ BID@0700,2200 [facility] Lactobacillus Acidophilus (Bacid -) 1 tab PO DAILY [facility] Levothyroxine Sodium (Synthroid -) 200 mcg PO DAILY@0700 [facility] Ondansetron HCl (Zofran Injection) 4 mg IVPUSH Q6H PRN PRN Reason: NAUSEA AND/OR VOMITING Stop: 04/30/17 16:27 Oxycodone HCl (Roxicodone -) 5 mg PO Q6H PRN PRN Reason: PAIN Polyethylene Glycol (Miralax (For Daily Use) -) 17 gm PO DAILY PRN PRN Reason: CONSTIPATION A/P 71 year old woman with PMhx of ESRD on HD, CAD, PVD, DM Type 2 on insulin, PVD s /p multiple amputations, multiple failed dialysis accesses presents from dialysis with bleeding from dialysis catheter skin exit site. #Bleeding from dialysis catheter site/Catheter malfunction s/p catheter exchange by vascular Sx will plan to use new cathter for HD today #ESRD on HD Unable to get dialysis yesterday will plan for treatment today via new catheter K improved with kayexalate Wan Cruz DO Problem List - Problems (1) Bleeding Code(s): R58 - HEMORRHAGE, NOT ELSEWHERE CLASSIFIED (2) ESRD (end stage renal disease) on dialysis Code(s): N18.6 - END STAGE RENAL DISEASE Z99.2 - DEPENDENCE ON RENAL DIALYSIS (3) Peripheral vascular disease due to secondary diabetes Code(s): E13.51 - OTH DIABETES W DIABETIC PERIPHERAL ANGIOPATHY W/O GANGRENE (4) DM type 2 causing complication Code(s): E11.8 - TYPE 2 DIABETES MELLITUS WITH UNSPECIFIED COMPLICATIONS
--- NOTE | 2017-04-30 11:21 | OP ---
DATE OF OPERATION: 04/30/2017 PREOPERATIVE DIAGNOSIS: Malfunctioning Perm-A-Cath. POSTOPERATIVE DIAGNOSIS: Malfunctioning Perm-A-Cath. PROCEDURE: Insertion of Perm-A-Cath with venogram. SURGEON: Supa Lozada DO ANESTHESIA: Fractional. BLOOD LOSS: 50 mL. The patient is a 71-year-old female who has a right IJ Perm-A-Cath that is not functioning. It was felt that she would need a Perm-A-Cath exchange. Patient was consented for the procedure, understanding all risks, benefits, and alternatives. Then taken to the operating room. Once in the operative suite, placed on the operating table in the supine manner. The area of the right and left chest were prepped and draped in a sterile surgical manner. We then went ahead and dissected out and freed up the right IJ Perm-A-Cath. Before we did that, we took some contrast and we shot a venogram to figure out what was going on and to why there was no flow in the Perm-A-Cath. Shot a venogram of the SVC showing that the SVC and the vein are extremely small and that the caliber of the Perm-A-Cath is taking up the majority of the space in the vein and that is why when they draw back on the catheter there is no flow. It was decided to remove the Perm-A-Cath and the Perm-A-Cath was removed. We then went ahead and went to the left side and under ultrasound guidance visualized the left internal jugular vein and 10 mL of lidocaine 1% was injected. We then took a micropuncture needle and punctured the left internal jugular vein. A micropuncture wire was inserted under fluoroscopy. We then placed our micropuncture sheath and a traditional 0.035 guidewire was placed. Lidocaine 1%, 10 mL, was then injected above and below the clavicle. Using an 11 blade, we made a 1-cm incision at the puncture site. Using a 15 blade, we made a 1-cm incision below the clavicle. We then tunneled the Perm-A-Cath up to the puncture site. We then placed our break-away sheath over the guidewire into the vein under fluoroscopy and the cannula and guidewire were removed. Catheter was then placed inside the sheath. Sheath was broken away as the catheter was placed inside the vein. Length of the catheter was lying smooth. Tip of the catheter was located up to the right atrium. We then naren back on each port of the catheter and there was good flow. Heparinized saline was injected and 2000 units of IV heparin was injected. Biosyn 4-0 puncture site, 3-0 nylon was used in the 4 x 4, Tegaderms were placed. The patient tolerated the procedure with no complication. The patient was transferred to PACU in stable condition where chest x-ray will be ordered. SUPA LOZADA DO NP/[id number]
[2017-04-30] MEDS: INSULIN SLIDING SCALE (NOVOLOG) 1 VIAL SQ SCH ×2 (12:24→18:52)
[2017-04-30] MEDS: CALCIUM ACETATE 667 MG CAPSULE (FP) PO SCH ×2 (12:38→18:52)
[2017-04-30] MEDS: LACTOBACILLUS ACIDOPHILUS 1 EACH TAB (FP) PO SCH (12:39)
[2017-04-30] MEDS: CYANOCOBALAMIN (VITAMIN B-12) 100 MCG TABLET PO SCH (12:39)
[2017-04-30] MEDS: HEPARIN INFUSION - 500 ML IVPB SCH (14:13)
[2017-04-30] MEDS: ACETAMINOPHEN 325 MG TABLET (FP) PO PRN (20:26)
[2017-04-30] MEDS: oxyCODONE HCL 5 MG TABLET PO PRN (21:58)
[2017-05-01] MEDS ORDERED: PT OWN MED DRAWER 7, Y5N ONE ×2 (05:24→19:09)
[2017-05-01] MEDS: INSULIN SLIDING SCALE (NOVOLOG) 1 VIAL SQ SCH ×3 (06:18→17:45)
[2017-05-01] MEDS: ACETAMINOPHEN 325 MG TABLET (FP) PO PRN ×2 (06:18→22:48)
[2017-05-01] MEDS: LEVOTHYROXINE NA 200 MCG TABLET PO SCH (06:18)
[2017-05-01] MEDS: INSULIN DETEMIR 100 UNITS/ML MDV SQ SCH ×2 (06:18→22:04)
[2017-05-01 08:14] LABS: INR 1.27 (0.82-1.09)
--- NOTE | 2017-05-01 08:23 | PN ---
Progress Note (short form) - Note Progress Note: Renal follow up for ESRD and hyperkalemia Pt seen and examined at the bedside feels well was able to have a full dialysis treatment yesterday no sob, chest pain no further bleeding Vital Signs Temperature 98.7 F 05/01/17 06:00 Pulse Rate 95 H 05/01/17 06:00 Respiratory Rate 16 05/01/17 06:00 Blood Pressure 166/93 05/01/17 06:00 O2 Sat by Pulse Oximetry (%) 98 04/30/17 21:00 Intake & Output 04/28/17 04/29/17 04/30/17 05/01/17 23:59 23:59 23:59 23:59 Intake Total 800 400 Balance 800 400 Weight 184 lb 1.376 oz 184 lb Gen: NAD CVS:RRR Lungs: CTA Abd: Obese, NT/ND Ext: b/l amputations, trace sacral edema CBC, BMP 04/30/17 05:55 04/30/17 05:55 Laboratory Tests 04/29/17 04/30/17 13:46 05:55 Calcium 7.5 L 7.2 L Magnesium 2.6 H D Albumin 3.1 L Current Medications Acetaminophen (Tylenol -) 650 mg PO Q6H PRN PRN Reason: FEVER OR PAIN Last Admin: 04/30/17 20:26 Dose: 650 mg Acetaminophen (Tylenol -) 325 mg PO Q6H PRN PRN Reason: PAIN Last Admin: 05/01/17 06:18 Dose: 325 mg Alprazolam (Xanax -) 0.25 mg PO DAILY PRN Calcium Acetate (Phoslo -) 667 mg PO TIDCM [facility] Last Admin: 04/30/17 18:52 Dose: Not Given Cyanocobalamin (Vitamin B12 -) 100 mcg PO DAILY [facility] Last Admin: 04/30/17 12:39 Dose: 100 mcg Heparin Sodium (Porcine) (Heparin -) 1,000 unit IVPUSH PRN PRN PRN Reason: Heparin Last Admin: 04/30/17 20:26 Dose: 1,000 unit Heparin Sodium (Porcine) (Heparin -) 5,000 unit IVPUSH PRN PRN PRN Reason: Heparin Heparin Sodium/Dextrose (Heparin Infusion -) 500 mls @ 20 mls/hr IVPB TITR [facility] ; 1,000 UNITS/HR PRN Reason: Protocol Last Titration: 04/30/17 20:26 Dose: 1,100 units/hr Insulin Aspart (Novolog Vial Sliding Scale -) 1 vial SQ TIDAC [facility] PRN Reason: Protocol Last Admin: 05/01/17 06:18 Dose: 3 units Insulin Detemir (Levemir Vial) 20 units SQ BID@0700,2200 [facility] Last Admin: 05/01/17 06:18 Dose: 20 unit Lactobacillus Acidophilus (Bacid -) 1 tab PO DAILY [facility] Last Admin: 04/30/17 12:39 Dose: 1 tab Levothyroxine Sodium (Synthroid -) 200 mcg PO DAILY@0700 [facility] Last Admin: 05/01/17 06:18 Dose: 200 mcg Oxycodone HCl (Roxicodone -) 5 mg PO Q6H PRN PRN Reason: PAIN Last Admin: 04/30/17 21:58 Dose: 5 mg Polyethylene Glycol (Miralax (For Daily Use) -) 17 gm PO DAILY PRN PRN Reason: CONSTIPATION A/P 71 year old woman with PMhx of ESRD on HD, CAD, PVD, DM Type 2 on insulin, PVD s /p multiple amputations, multiple failed dialysis accesses presents from dialysis with bleeding from dialysis catheter skin exit site. #Bleeding from dialysis catheter site/Catheter malfunction catheter exchanged yesterday no further bleeding noted #ESRD on HD Tolerated dialysis well yesterday w/o complication no indication for dialysis today next treatment is planned for tomorrow and can be done as an outpatient if pt is discharged #Afib on Coumadin INR subtheraputic on heparin gtt INR level this am is pending discharge planning as per primary Wan Cruz DO Problem List - Problems (1) Bleeding Code(s): R58 - HEMORRHAGE, NOT ELSEWHERE CLASSIFIED (2) ESRD (end stage renal disease) on dialysis Code(s): N18.6 - END STAGE RENAL DISEASE Z99.2 - DEPENDENCE ON RENAL DIALYSIS (3) Peripheral vascular disease due to secondary diabetes Code(s): E13.51 - OTH DIABETES W DIABETIC PERIPHERAL ANGIOPATHY W/O GANGRENE (4) DM type 2 causing complication Code(s): E11.8 - TYPE 2 DIABETES MELLITUS WITH UNSPECIFIED COMPLICATIONS
[2017-05-01] MEDS: CALCIUM ACETATE 667 MG CAPSULE (FP) PO SCH ×3 (09:23→17:45)
[2017-05-01] MEDS: CYANOCOBALAMIN (VITAMIN B-12) 100 MCG TABLET PO SCH (09:23)
[2017-05-01] MEDS: LACTOBACILLUS ACIDOPHILUS 1 EACH TAB (FP) PO SCH (09:23)
--- NOTE | 2017-05-01 11:58 | PN ---
Progress Note (short form) - Note Progress Note: patient seen and examined today comfortable Feels okay Status post catheter exchange No further bleeding On heparin drip now Denies chest pain or shortness of breath Vital Signs Temp 98.7 F 05/01/17 06:00 Pulse 95 H 05/01/17 06:00 Resp 16 05/01/17 06:00 BP 166/93 05/01/17 06:00 Pulse Ox 98 04/30/17 21:00 Intake & Output 04/30/17 04/30/17 05/01/17 11:59 23:59 11:59 Intake Total 300 500 400 Balance 300 500 400 Weight 184 lb Intake: IV 300 250 saline lock 250 Oral 0 500 150 Other: Voiding Method Bedpan Diaper Diaper # Unmeasured Voids Void 1 Bowel Movement No Height 5 ft 7 in Body Mass Index (BMI) 28.8 Weight Measurement Method Stated by Patient Active Medications Acetaminophen (Tylenol -) 650 mg PO Q6H PRN PRN Reason: FEVER OR PAIN Last Admin: 04/30/17 20:26 Dose: 650 mg Acetaminophen (Tylenol -) 325 mg PO Q6H PRN PRN Reason: PAIN Last Admin: 05/01/17 06:18 Dose: 325 mg Alprazolam (Xanax -) 0.25 mg PO DAILY PRN Calcium Acetate (Phoslo -) 667 mg PO TIDCM [facility] Last Admin: 05/01/17 09:23 Dose: 667 mg Cyanocobalamin (Vitamin B12 -) 100 mcg PO DAILY [facility] Last Admin: 05/01/17 09:23 Dose: 100 mcg Heparin Sodium (Porcine) (Heparin -) 1,000 unit IVPUSH PRN PRN PRN Reason: Heparin Last Admin: 04/30/17 20:26 Dose: 1,000 unit Heparin Sodium (Porcine) (Heparin -) 5,000 unit IVPUSH PRN PRN PRN Reason: Heparin Heparin Sodium/Dextrose (Heparin Infusion -) 500 mls @ 20 mls/hr IVPB TITR [facility] ; 1,000 UNITS/HR PRN Reason: Protocol Last Titration: 04/30/17 20:26 Dose: 1,100 units/hr Insulin Aspart (Novolog Vial Sliding Scale -) 1 vial SQ TIDAC [facility] PRN Reason: Protocol Last Admin: 05/01/17 06:18 Dose: 3 units Insulin Detemir (Levemir Vial) 20 units SQ BID@0700,2200 [facility] Last Admin: 05/01/17 06:18 Dose: 20 unit Lactobacillus Acidophilus (Bacid -) 1 tab PO DAILY [facility] Last Admin: 05/01/17 09:23 Dose: 1 tab Levothyroxine Sodium (Synthroid -) 200 mcg PO DAILY@0700 [facility] Last Admin: 05/01/17 06:18 Dose: 200 mcg Oxycodone HCl (Roxicodone -) 5 mg PO Q6H PRN PRN Reason: PAIN Last Admin: 04/30/17 21:58 Dose: 5 mg Polyethylene Glycol (Miralax (For Daily Use) -) 17 gm PO DAILY PRN PRN Reason: CONSTIPATION CBC, BMP 04/30/17 05:55 04/30/17 05:55 Physical exam Conscious cooperative alert and awake Lungs clear CVS S1 and S2 irregular Abdomen soft and non tender Extremities--status post amputation Neuro--Alert and oriented 3 Assessment and plan Clinically stable status post new Port-A-Cath insertion Had dialysis yesterday Continue present care Restart on Coumadin with caution Patient would like to go home--otherwise should monitor today at least Recheck INR tomorrow Bridging with Coumadin monitor for bleeding Discussed with patient and patient's family--- was at bedside They also agree with the plan Discussed with nursing staff also Will follow Problem List - Problems (1) Hyperkalemia Code(s): E87.5 - HYPERKALEMIA (2) Nonpatent hemodialysis access site Code(s): T82.898A - OTH COMPLICATION OF VASCULAR PROSTH DEV/GRFT, INIT Qualifiers: Encounter type: initial encounter Qualified Code(s): T82.898A - Other specified complication of vascular prosthetic devices, implants and grafts, initial encounter (3) Bleeding Code(s): R58 - HEMORRHAGE, NOT ELSEWHERE CLASSIFIED (4) ESRD (end stage renal disease) on dialysis Code(s): N18.6 - END STAGE RENAL DISEASE Z99.2 - DEPENDENCE ON RENAL DIALYSIS (5) Hemodialysis catheter dysfunction Code(s): T82.41XA - BREAKDOWN (MECHANICAL) OF VASCULAR DIALYSIS CATHETER, INIT Qualifiers: Encounter type: initial encounter Qualified Code(s): T82.41XA - Breakdown (mechanical) of vascular dialysis catheter, initial encounter (6) Peripheral vascular disease due to secondary diabetes Code(s): E13.51 - OTH DIABETES W DIABETIC PERIPHERAL ANGIOPATHY W/O GANGRENE (7) Anemia in ESRD (end-stage renal disease) Code(s): N18.6 - END STAGE RENAL DISEASE D63.1 - ANEMIA IN CHRONIC KIDNEY DISEASE (8) Atrial fibrillation Code(s): I48.91 - UNSPECIFIED ATRIAL FIBRILLATION Qualifiers: Atrial fibrillation type: unspecified Qualified Code(s): I48.91 - Unspecified atrial fibrillation (9) CAD (coronary artery disease) Code(s): I25.10 - ATHSCL HEART DISEASE OF [place] CORONARY ARTERY W/O ANG PCTRS Qualifiers: Coronary Disease-Associated Artery/Lesion type: [place] artery [place] vs. transplanted heart: [place] heart Associated angina: without angina Qualified Code(s): I25.10 - Atherosclerotic heart disease of [place] coronary artery without angina pectoris
[2017-05-01] MEDS: HEPARIN INFUSION - 500 ML IVPB SCH (12:32)
[2017-05-01] MEDS ORDERED: HEPARIN INFUSION - 500 ML IVPB ONE (15:00)
--- NOTE | 2017-05-01 15:34 | PN ---
Progress Note (short form) - Note Progress Note: ANESTHESIOLOGY POST-OP CHECK 71F s/p permacath exchange under MAC/sedation. No acute complaints, denies pain , N/V. Vital Signs Temperature 98.1 F 05/01/17 14:00 Pulse Rate 96 H 05/01/17 14:00 Respiratory Rate 18 05/01/17 14:00 Blood Pressure 142/85 05/01/17 14:00 O2 Sat by Pulse Oximetry (%) 98 04/30/17 21:00 Active Medications Acetaminophen (Tylenol -) 650 mg PO Q6H PRN PRN Reason: FEVER OR PAIN Last Admin: 04/30/17 20:26 Dose: 650 mg Acetaminophen (Tylenol -) 325 mg PO Q6H PRN PRN Reason: PAIN Last Admin: 05/01/17 06:18 Dose: 325 mg Alprazolam (Xanax -) 0.25 mg PO DAILY PRN Calcium Acetate (Phoslo -) 667 mg PO TIDCM [facility] Last Admin: 05/01/17 12:31 Dose: 667 mg Cyanocobalamin (Vitamin B12 -) 100 mcg PO DAILY [facility] Last Admin: 05/01/17 09:23 Dose: 100 mcg Heparin Sodium (Porcine) (Heparin -) 1,000 unit IVPUSH PRN PRN PRN Reason: Heparin Last Admin: 04/30/17 20:26 Dose: 1,000 unit Heparin Sodium (Porcine) (Heparin -) 5,000 unit IVPUSH PRN PRN PRN Reason: Heparin Heparin Sodium/Dextrose (Heparin Infusion -) 500 mls @ 20 mls/hr IVPB TITR [facility] ; 1,000 UNITS/HR PRN Reason: Protocol Last Admin: 05/01/17 12:32 Dose: 22 mls/hr Insulin Aspart (Novolog Vial Sliding Scale -) 1 vial SQ TIDAC [facility] PRN Reason: Protocol Last Admin: 05/01/17 12:31 Dose: 3 units Insulin Detemir (Levemir Vial) 20 units SQ BID@0700,2200 [facility] Last Admin: 05/01/17 06:18 Dose: 20 unit Lactobacillus Acidophilus (Bacid -) 1 tab PO DAILY [facility] Last Admin: 05/01/17 09:23 Dose: 1 tab Levothyroxine Sodium (Synthroid -) 200 mcg PO DAILY@0700 [facility] Last Admin: 05/01/17 06:18 Dose: 200 mcg Oxycodone HCl (Roxicodone -) 5 mg PO Q6H PRN PRN Reason: PAIN Last Admin: 04/30/17 21:58 Dose: 5 mg Polyethylene Glycol (Miralax (For Daily Use) -) 17 gm PO DAILY PRN PRN Reason: CONSTIPATION Warfarin Sodium (Coumadin -) 5 mg PO DAILY@1800 [facility] Gen: Awake, alert No apparent anesthesia complications. Pain controlled. Continue managment as per primary team.
[2017-05-01] MEDS: WARFARIN NA 5 MG TABLET (UD) PO SCH (17:45)
[2017-05-01] MEDS: SIMETHICONE 80 MG TAB.CHEW (FP) PO PRN (20:09)
[2017-05-01] MEDS: ALPRAZolam 0.25 MG TABLET PO PRN (22:04)
[2017-05-01] MEDS: oxyCODONE HCL 5 MG TABLET PO PRN (22:47)
[2017-05-02] MEDS ORDERED: PT OWN MED DRAWER 7, Y5N ONE (06:20)
[2017-05-02] MEDS: SIMETHICONE 80 MG TAB.CHEW (FP) PO PRN (06:23)
[2017-05-02] MEDS: LEVOTHYROXINE NA 200 MCG TABLET PO SCH (06:23)
[2017-05-02] MEDS: INSULIN DETEMIR 100 UNITS/ML MDV SQ SCH ×2 (06:44→21:50)
[2017-05-02] MEDS: INSULIN SLIDING SCALE (NOVOLOG) 1 VIAL SQ SCH ×3 (06:44→17:48)
[2017-05-02 07:18] LABS: MCH 30.8 pg (25.7-33.7); MCHC 32.6 g/dl (32.0-36.0); MEAN CELL VOLUME 94.5 fl (80-96); MEAN PLT VOLUME 8.6 fl (7.5-11.1); PLATELET COUNT 256 K/MM3 (134-434); RDW 15.2 % (11.6-15.6); WHITE BLOOD COUNT 8.4 K/mm3 (4.0-10.0)
[2017-05-02 07:44] LABS: INR 1.2 (0.82-1.09); PROTHROMBIN TIME (PATIENT) 13.2 SEC (9.98-11.88)
[2017-05-02] MEDS: CALCIUM ACETATE 667 MG CAPSULE (FP) PO SCH ×3 (08:25→17:52)
[2017-05-02] MEDS: CYANOCOBALAMIN (VITAMIN B-12) 100 MCG TABLET PO SCH (09:15)
[2017-05-02] MEDS: LACTOBACILLUS ACIDOPHILUS 1 EACH TAB (FP) PO SCH (09:15)
--- NOTE | 2017-05-02 10:01 | PN ---
Progress Note (short form) - Note Progress Note: 71 yearold female, admitted with bleeding from he right permacath site which was removed and anew one inserted in the left subclavian vein.Known case of CAD, S/PPCI/stenting,angina,permanent atrial fib.ESRD HD,multiple diabetese related complications. Nofurther bleeding, no chest bpain or discomfort,dyspnea or palpitations. Active Medications Acetaminophen (Tylenol -) 650 mg PO Q6H PRN PRN Reason: FEVER OR PAIN Last Admin: 04/30/17 20:26 Dose: 650 mg Acetaminophen (Tylenol -) 325 mg PO Q6H PRN PRN Reason: PAIN Last Admin: 05/01/17 22:48 Dose: 325 mg Alprazolam (Xanax -) 0.25 mg PO DAILY PRN Last Admin: 05/01/17 22:04 Dose: 0.25 mg Calcium Acetate (Phoslo -) 667 mg PO TIDCM [facility] Last Admin: 05/02/17 08:25 Dose: 667 mg Cyanocobalamin (Vitamin B12 -) 100 mcg PO DAILY [facility] Last Admin: 05/02/17 09:15 Dose: 100 mcg Heparin Sodium (Porcine) (Heparin -) 1,000 unit IVPUSH PRN PRN PRN Reason: Heparin Last Admin: 04/30/17 20:26 Dose: 1,000 unit Heparin Sodium (Porcine) (Heparin -) 5,000 unit IVPUSH PRN PRN PRN Reason: Heparin Heparin Sodium/Dextrose (Heparin Infusion -) 500 mls @ 20 mls/hr IVPB TITR [facility] ; 1,000 UNITS/HR PRN Reason: Protocol Last Admin: 05/01/17 12:32 Dose: 22 mls/hr Insulin Aspart (Novolog Vial Sliding Scale -) 1 vial SQ TIDAC [facility] PRN Reason: Protocol Last Admin: 05/02/17 06:44 Dose: Not Given Insulin Detemir (Levemir Vial) 20 units SQ BID@0700,2200 [facility] Last Admin: 05/02/17 06:44 Dose: 5 unit Lactobacillus Acidophilus (Bacid -) 1 tab PO DAILY [facility] Last Admin: 05/02/17 09:15 Dose: 1 tab Levothyroxine Sodium (Synthroid -) 200 mcg PO DAILY@0700 [facility] Last Admin: 08/07/17 06:23 Dose: 200 mcg Oxycodone HCl (Roxicodone -) 5 mg PO Q6H PRN PRN Reason: PAIN Last Admin: 05/01/17 22:47 Dose: 5 mg Polyethylene Glycol (Miralax (For Daily Use) -) 17 gm PO DAILY PRN PRN Reason: CONSTIPATION Simethicone (Mylicon -) 80 mg PO Q6H PRN Last Admin: 05/02/17 06:23 Dose: 80 mg Warfarin Sodium (Coumadin -) 5 mg PO DAILY@1800 [facility] Last Admin: 05/01/17 17:45 Dose: 5 mg O:71 year od femalewas in no distress,no pallor,cyanosis,clubbing or jaundice. Vital Signs - 8 hr 05/02/17 05/02/17 02:00 07:00 Temperature 98.5 F 98.5 F Pulse Rate 81 irregular 94 H Respiratory 18 19 Rate Blood Pressure 162/73 153/68 O2 Sat by Pulse 96 Oximetry (%) NECK:supple,noJVD,carotids are equal,no bruits or thyromegaly HEATRT:PMI in the 5th ICS, noheaves or thrills,S1 variable,S2 normal.No murmur or gallops heard. LUNGS:Clear. ABDOMEN:Soft,nontenderand obese,no organomegalyor masses felt. EXT:Right AKA, partial left foot amputation.No left lower ext. edema.Lt.hand figers have ischemic changed(bandaged). Abnormal Lab Results 05/02/17 05/02/17 05/02/17 05:35 05:35 05:35 RBC 3.31 L Hgb 10.2 L Hct 31.3 L INR 1.20 H PTT (Actin FS) 66.1 H D A: 1.CAD,S/P PCI/stenting,angina pectoris. 2.permanent atrial fib. 3.Diabetes mellitis. 4. Rt. AKA. 5. Lt. foot partially amputated. 6. EDRD HD. 7. Hypothyroidism. 8. Anemia. P: 1. Continue current cardiac therapy. 2. Weight reduction., 3. Outpatient F/U. 4. correction of hypothyroidism.
--- NOTE | 2017-05-02 11:04 | PN ---
Progress Note (short form) - Note Progress Note: Renal follow up for ESRD and hyperkalemia Pt seen and examined at the bedside no acute complaints wants to go home today no sob, chest pain, abd pain, N/V/D no further bleeding from catheter site Vital Signs Temperature 97.4 F L 05/02/17 10:00 Pulse Rate 98 H 05/02/17 10:00 Respiratory Rate 22 05/02/17 10:00 Blood Pressure 146/60 05/02/17 10:00 O2 Sat by Pulse Oximetry (%) 96 05/02/17 07:00 Intake & Output 04/29/17 04/30/17 05/01/17 05/02/17 23:59 23:59 23:59 23:59 Intake Total 800 550 588 Balance 800 550 588 Weight 184 lb 1.376 oz 184 lb Gen: NAD CVS:RRR Lungs: CTA Abd: Obese, NT/ND Ext:trace edema CBC, BMP 05/02/17 05:35 04/30/17 05:55 Current Medications Acetaminophen (Tylenol -) 650 mg PO Q6H PRN PRN Reason: FEVER OR PAIN Last Admin: 04/30/17 20:26 Dose: 650 mg Acetaminophen (Tylenol -) 325 mg PO Q6H PRN PRN Reason: PAIN Last Admin: 05/01/17 22:48 Dose: 325 mg Alprazolam (Xanax -) 0.25 mg PO DAILY PRN Last Admin: 05/01/17 22:04 Dose: 0.25 mg Calcium Acetate (Phoslo -) 667 mg PO TIDCM [facility] Last Admin: 05/02/17 08:25 Dose: 667 mg Cyanocobalamin (Vitamin B12 -) 100 mcg PO DAILY [facility] Last Admin: 05/02/17 09:15 Dose: 100 mcg Heparin Sodium (Porcine) (Heparin -) 1,000 unit IVPUSH PRN PRN PRN Reason: Heparin Last Admin: 04/30/17 20:26 Dose: 1,000 unit Heparin Sodium (Porcine) (Heparin -) 5,000 unit IVPUSH PRN PRN PRN Reason: Heparin Heparin Sodium/Dextrose (Heparin Infusion -) 500 mls @ 20 mls/hr IVPB TITR [facility] ; 1,000 UNITS/HR PRN Reason: Protocol Last Admin: 05/01/17 12:32 Dose: 22 mls/hr Insulin Aspart (Novolog Vial Sliding Scale -) 1 vial SQ TIDAC [facility] PRN Reason: Protocol Last Admin: 05/02/17 06:44 Dose: Not Given Insulin Detemir (Levemir Vial) 20 units SQ BID@0700,2200 [facility] Last Admin: 05/02/17 06:44 Dose: 5 unit Lactobacillus Acidophilus (Bacid -) 1 tab PO DAILY [facility] Last Admin: 05/02/17 09:15 Dose: 1 tab Levothyroxine Sodium (Synthroid -) 200 mcg PO DAILY@0700 [facility] Last Admin: 05/02/17 06:23 Dose: 200 mcg Oxycodone HCl (Roxicodone -) 5 mg PO Q6H PRN PRN Reason: PAIN Last Admin: 05/01/17 22:47 Dose: 5 mg Polyethylene Glycol (Miralax (For Daily Use) -) 17 gm PO DAILY PRN PRN Reason: CONSTIPATION Simethicone (Mylicon -) 80 mg PO Q6H PRN Last Admin: 05/02/17 06:23 Dose: 80 mg Warfarin Sodium (Coumadin -) 5 mg PO DAILY@1800 [facility] Last Admin: 05/01/17 17:45 Dose: 5 mg A/P 71 year old woman with PMhx of ESRD on HD, CAD, PVD, DM Type 2 on insulin, PVD s /p multiple amputations, multiple failed dialysis accesses presents from dialysis with bleeding from dialysis catheter skin exit site. #Bleeding from dialysis catheter site/Catheter malfunction s/p catheter exchange with no further bleeding #ESRD on HD plan for dialysis in AM dose all meds for intermittent HD #Afib on Coumadin INR subtheraputic on heparin gtt INR today is 1.2 Wan Cruz DO Problem List - Problems (1) Bleeding Code(s): R58 - HEMORRHAGE, NOT ELSEWHERE CLASSIFIED (2) ESRD (end stage renal disease) on dialysis Code(s): N18.6 - END STAGE RENAL DISEASE Z99.2 - DEPENDENCE ON RENAL DIALYSIS (3) Peripheral vascular disease due to secondary diabetes Code(s): E13.51 - OTH DIABETES W DIABETIC PERIPHERAL ANGIOPATHY W/O GANGRENE (4) DM type 2 causing complication Code(s): E11.8 - TYPE 2 DIABETES MELLITUS WITH UNSPECIFIED COMPLICATIONS
--- NOTE | 2017-05-02 11:10 | PN ---
Progress Note (short form) - Note Progress Note: patient seen and examined today comfortable Feels okay Status post catheter exchange No further bleeding On heparin drip now Denies chest pain or shortness of breath c/c - constipation Vital Signs Period Temp Pulse Resp BP Sys/Cordero Pulse Ox Last 24 Hr 97.4 F-98.5 F 81-98 18-22 95-162/60-85 95-96 Active Medications Acetaminophen (Tylenol -) 650 mg PO Q6H PRN PRN Reason: FEVER OR PAIN Last Admin: 04/30/17 20:26 Dose: 650 mg Acetaminophen (Tylenol -) 325 mg PO Q6H PRN PRN Reason: PAIN Last Admin: 05/01/17 22:48 Dose: 325 mg Alprazolam (Xanax -) 0.25 mg PO DAILY PRN Last Admin: 05/01/17 22:04 Dose: 0.25 mg Calcium Acetate (Phoslo -) 667 mg PO TIDCM [facility] Last Admin: 05/02/17 08:25 Dose: 667 mg Cyanocobalamin (Vitamin B12 -) 100 mcg PO DAILY [facility] Last Admin: 05/02/17 09:15 Dose: 100 mcg Heparin Sodium (Porcine) (Heparin -) 1,000 unit IVPUSH PRN PRN PRN Reason: Heparin Last Admin: 04/30/17 20:26 Dose: 1,000 unit Heparin Sodium (Porcine) (Heparin -) 5,000 unit IVPUSH PRN PRN PRN Reason: Heparin Heparin Sodium/Dextrose (Heparin Infusion -) 500 mls @ 20 mls/hr IVPB TITR [facility] ; 1,000 UNITS/HR PRN Reason: Protocol Last Admin: 05/01/17 12:32 Dose: 22 mls/hr Insulin Aspart (Novolog Vial Sliding Scale -) 1 vial SQ TIDAC [facility] PRN Reason: Protocol Last Admin: 05/02/17 06:44 Dose: Not Given Insulin Detemir (Levemir Vial) 20 units SQ BID@0700,2200 [facility] Last Admin: 05/02/17 06:44 Dose: 5 unit Lactobacillus Acidophilus (Bacid -) 1 tab PO DAILY [facility] Last Admin: 05/02/17 09:15 Dose: 1 tab Levothyroxine Sodium (Synthroid -) 250 mcg PO DAILY@0700 [facility] Oxycodone HCl (Roxicodone -) 5 mg PO Q6H PRN PRN Reason: PAIN Last Admin: 05/01/17 22:47 Dose: 5 mg Polyethylene Glycol (Miralax (For Daily Use) -) 17 gm PO DAILY PRN PRN Reason: CONSTIPATION Simethicone (Mylicon -) 80 mg PO Q6H PRN Last Admin: 05/02/17 06:23 Dose: 80 mg Warfarin Sodium (Coumadin -) 5 mg PO DAILY@1800 [facility] Last Admin: 05/01/17 17:45 Dose: 5 mg CBC,CMP WBC 8.4 K/mm3 (4.0-10.0) 05/02/17 05:35 RBC 3.31 M/mm3 (3.60-5.2) L 05/02/17 05:35 Hgb 10.2 GM/dL (10.7-15.3) L 05/02/17 05:35 Hct 31.3 % (32.4-45.2) L 05/02/17 05:35 MCV 94.5 fl (80-96) 05/02/17 05:35 MCH 30.8 pg (25.7-33.7) 05/02/17 05:35 MCHC 32.6 g/dl (32.0-36.0) 05/02/17 05:35 RDW 15.2 % (11.6-15.6) 05/02/17 05:35 Plt Count 256 K/MM3 (134-434) 05/02/17 05:35 MPV 8.6 fl (7.5-11.1) 05/02/17 05:35 Neutrophils % 68.1 % (42.8-82.8) 04/30/17 05:55 Lymphocytes % 20.6 % (8-40) 04/30/17 05:55 Monocytes % 6.2 % (3.8-10.2) 04/30/17 05:55 Eosinophils % 4.1 % (0-4.5) 04/30/17 05:55 Basophils % 1.0 % (0-2.0) D 04/30/17 05:55 Sodium 138 mmol/L (136-145) 04/30/17 05:55 Potassium 5.6 mmol/L (3.5-5.1) H 04/30/17 05:55 Chloride 105 mmol/L (98-107) 04/30/17 05:55 Carbon Dioxide 22 mmol/L (21-32) 04/30/17 05:55 Anion Gap 11 (8-16) 04/30/17 05:55 BUN 62 mg/dL (7-18) H 04/30/17 05:55 Creatinine 6.6 mg/dL (0.55-1.02) H 04/30/17 05:55 Creat Clearance w eGFR 6.16 (>60) 04/30/17 05:55 POC Glucometer 117 UNITS (()) 05/02/17 06:40 Random Glucose 131 mg/dL (74-106) H D 04/30/17 05:55 Hemoglobin A1c % 7.8 % (4.8-6.0) H D 04/30/17 05:55 Calcium 7.2 mg/dL (8.5-10.1) L 04/30/17 05:55 Magnesium 2.6 mg/dL (1.8-2.4) H D 04/29/17 13:46 Total Bilirubin 0.7 mg/dL (0.2-1.0) 04/30/17 05:55 AST 13 U/L (15-37) L 04/30/17 05:55 ALT 18 U/L (12-78) 04/30/17 05:55 Alkaline Phosphatase 84 U/L (45-117) 04/30/17 05:55 Total Protein 6.0 g/dl (6.4-8.2) L 04/30/17 05:55 Albumin 2.7 g/dl (3.4-5.0) L 04/30/17 05:55 TSH 66.20 uIU/ml (0.358-3.74) H D 04/30/17 05:55 Physical exam Conscious cooperative ,alert and awake Lungs clear CVS S1 and S2 irregular Abdomen soft and non tender Extremities--status post amputation Neuro--Alert and oriented 3 Assessment and plan Clinically stable status post new Port-A-Cath insertion Continue present care Restarted on Coumadin with caution Recheck INR tomorrow Bridging with Coumadin monitor for bleeding increase synthroid--tsh is high Discussed with patient Discussed with nursing staff also Will follow Problem List - Problems (1) Hyperkalemia Code(s): E87.5 - HYPERKALEMIA (2) Nonpatent hemodialysis access site Code(s): T82.898A - OTH COMPLICATION OF VASCULAR PROSTH DEV/GRFT, INIT Qualifiers: Encounter type: initial encounter Qualified Code(s): T82.898A - Other specified complication of vascular prosthetic devices, implants and grafts, initial encounter (3) Bleeding Code(s): R58 - HEMORRHAGE, NOT ELSEWHERE CLASSIFIED (4) ESRD (end stage renal disease) on dialysis Code(s): N18.6 - END STAGE RENAL DISEASE Z99.2 - DEPENDENCE ON RENAL DIALYSIS (5) Hemodialysis catheter dysfunction Code(s): T82.41XA - BREAKDOWN (MECHANICAL) OF VASCULAR DIALYSIS CATHETER, INIT Qualifiers: Encounter type: initial encounter Qualified Code(s): T82.41XA - Breakdown (mechanical) of vascular dialysis catheter, initial encounter (6) Peripheral vascular disease due to secondary diabetes Code(s): E13.51 - OTH DIABETES W DIABETIC PERIPHERAL ANGIOPATHY W/O GANGRENE (7) Anemia in ESRD (end-stage renal disease) Code(s): N18.6 - END STAGE RENAL DISEASE D63.1 - ANEMIA IN CHRONIC KIDNEY DISEASE (8) Atrial fibrillation Code(s): I48.91 - UNSPECIFIED ATRIAL FIBRILLATION Qualifiers: Atrial fibrillation type: unspecified Qualified Code(s): I48.91 - Unspecified atrial fibrillation (9) CAD (coronary artery disease) Code(s): I25.10 - ATHSCL HEART DISEASE OF [place] CORONARY ARTERY W/O ANG PCTRS Qualifiers: Coronary Disease-Associated Artery/Lesion type: [place] artery [place] vs. transplanted heart: [place] heart Associated angina: without angina Qualified Code(s): I25.10 - Atherosclerotic heart disease of [place] coronary artery without angina pectoris
[2017-05-02] MEDS: HEPARIN INFUSION - 500 ML IVPB SCH (12:29)
[2017-05-02 14:11] LABS: HEP B SURFACE AB Reactive (.)
--- NOTE | 2017-05-02 17:19 | CONS ---
DATE OF CONSULTATION: DATE OF DICTATION: 04/30/2017 DICTATION STARTS HERE IMPRESSION: 1. Coronary artery disease, status post percutaneous coronary intervention/stenting, angina pectoris currently stable. 2. Atrial fibrillation with controlled ventricular response. 3. Insulin dependent diabetes mellitus. 4. Diabetic retinopathy. 5. End-stage renal disease, hemodialysis dependent. 6. Hypertension, hypertensive cardiovascular disease. 7. Dyslipidemia. 8. Status post bleeding from the right [place] catheter site. 9. Status post right above-knee amputation. 10. Status post partial amputation of the left foot and 3 fingers of the left hand. 11. Anemia secondary to chronic kidney disease. 12. Severe hypothyroidism on replacement therapy (see TSH levels). RECOMMENDATION: 1. Reevaluation of hypothyroidism and readjustment of therapy. 2. Close followup PT, PTT, and CBC. 3. Continue current therapy. 4. Echocardiogram for evaluation of left ventricular size and to exclude pericardial effusion. 5. Followup ECG. Thank you for your referral. Yours sincerely, MERVIN CHANDLER M.D. [id number]
--- NOTE | 2017-05-02 17:19 | CONS ---
DATE OF CONSULTATION: 04/30/2017 TIME OF CONSULTATION: 3:20 p.m. REQUESTING PHYSICIAN: Jessenia Galarza M.D. CARDIOLOGY CONSULTATION CHIEF COMPLAINT: Bleeding during dialysis from PermCath site. HISTORY OF PRESENT ILLNESS: The patient is a 71-year-old white female who has longstanding history of diabetes mellitus with multisystem involvement, coronary artery disease, status post PCI/stenting, permanent atrial fibrillation, end-stage renal disease, hemodialysis dependent, peripheral artery disease status post right above-knee amputation, status post partial amputation of the left foot, partial amputation of the fingers of the left hand, history of hypercholesterolemia, hypertension, hypothyroidism, chronic anemia, dyslipidemia, and diabetic retinopathy. Patient was undergoing dialysis when she started to bleed profusely from the Shiley site and developed hematoma, ecchymosis, was brought to the hospital, and the Shiley had to be removed and a new catheter was inserted into the left subclavian vein. She has had no chest pain or discomfort either at rest or with exertion. No exertional dyspnea, paroxysmal nocturnal dyspnea or orthopnea reported. No history of palpitations, lightheadedness, dizziness, presyncope, or syncope reported. PAST HISTORY: As mentioned in the history of present illness. SURGICAL HISTORY: 1. Status post hysterectomy. 2. Status post AV fistula, which currently is nonfunctional. 3. Status post right above-knee amputation. 4. Status post partial amputation of the left foot. 5. Status post partial amputation of 3 of the fingers of the right hand. 6. Status post partial thyroidectomy. SOCIAL HISTORY: Patient , is disabled, has 2 children who are healthy, nonsmoker, and denies use of alcohol. FAMILY HISTORY: Father in his 70s from myocardial infarction, mother in her 90s of natural causes. Has a brother and sister who apparently are healthy. ALLERGIES: 1. SULFONAMIDE causes rash. 2. AMOXICILLIN causes severe diarrhea. 3. AUGMENTIN causes severe diarrhea. Prior to admission, medications were as follows: 1. Calcium acetate 667 mg p.o. with meals. 2. Aspirin 81 mg p.o. daily. 3. Clopidogrel 75 mg p.o. daily. 4. Levothyroxine 200 mcg p.o. daily. 5. Vitamin B12 100 mcg p.o. daily. 6. Glipizide 500 mg p.o. daily. 7. Novolog insulin on a sliding scale. 8. Warfarin 2 mg p.o. daily at bedtime. 9. Levemir insulin 20 units subcutaneously b.i.d. 10. Probiotic 1 p.o. daily. CURRENT MEDICATIONS: 1. Heparin as per protocol. 2. Zofran q.4 mg IV q.6 p.r.n. 3. Tylenol 650 mg q.6 p.r.n. 4. Miralax 17 g p.o. p.r.n. REVIEW OF SYSTEMS: Constitutional: No history of chills, fever, or night sweats. No history of unintentional weight loss. HEENT: No history of headaches, diplopia, blurred vision reported. No history of epistaxis, hoarseness, denies tinnitus, or deafness. Cardiovascular: See history of present illness. Respiratory: No history of cough, expectoration or hemoptysis. Gastrointestinal: No history of nausea, vomiting, melena or hematemesis. No history of abdominal pain or change in bowel habits. Neurological: No history of seizures, syncope, no history of focal weakness. Mild dizziness on lying down in bed lasting seconds. Endocrine: See HPI. Musculoskeletal: Denies any myalgias or arthralgias. PHYSICAL EXAMINATION: General: A 71-year-old female at the time of examination was in no acute distress. There was pallor, no cyanosis, clubbing or jaundice. HEENT: Normocephalic, slight conjunctival pallor, no scleral icterus. The face appeared puffy, no xanthelasma or arcus senilis was seen. Neck: Supple. No jugulovenous distention, carotids were equal and upstrokes were normal, no bruits were appreciated, no thyromegaly was present . Heart: PMI was in the 5th intercostal space, no heaves or thrills. Heart sounds were distant. No murmurs or gallops were appreciated. Lungs: Clear on auscultation. Chest: Right anterior chest was ecchymotic and there was probably hematoma over the right breast. There was oozing of blood from the previous insertion site for a Shiley catheter. Abdomen: Protuberant, obese, and nontender. No hepatosplenomegaly or palpable masses were felt. The bowel sounds were active. No bruits were heard. Extremities: Right extensive above-knee amputation, there was partial amputation of the left foot. Left dorsalis pedis and posterior tibial pulses were weak, femoral pulses were 2+. LABORATORY DATA: ECG of April 29, 2017: atrial fibrillation with moderate ventricular response, right axis deviation, atypical R wave progression V1 and V2. Generalized low voltage, nonspecific ST changes. No previous ECG was available for comparison. On April 30, 2017: sodium 138, potassium 5.6, chloride 105, CO2 of 22, BUN 62, creatinine 6.6. Random glucose was 131, hemoglobin A1c was 7.8%, calcium was 7.2 mg/dL. TSH was 66.20. WBC count was 8500. Hemoglobin was 10.3 g/dL. Platelet count was 272,000. Normal differential. X-ray chest was reported to have right sided PermCath unchanged. There was cardiomegaly reported, there was elevation of the right hemidiaphragm. IMPRESSION: 1. Coronary artery disease, status post percutaneous coronary intervention/stenting, angina pectoris currently stable. 2. Permanent atrial fibrillation with controlled ventricular response. 3. Insulin dependent diabetes mellitus. 4. Diabetic retinopathy. 5. End-stage renal disease hemodialysis dependent. 6. Hypertension, hypertensive cardiovascular disease, currently normotensive. 7. Dyslipidemia. 8. Bleeding from right Shiley catheter site during dialysis (removed), new right subclavian Shiley catheter inserted. 9. Status post right above-knee amputation. 10. Status post partial amputation of the left foot and 3 fingers of the left hand. 11. History of anemia. 12. Hypothyroidism on replacement therapy. RECOMMENDATION: DICTATION ENDS HERE Shannon [id number]
[2017-05-02] MEDS: WARFARIN NA 5 MG TABLET (UD) PO SCH (17:52)
[2017-05-02] MEDS ORDERED: WARFARIN NA 2 MG TABLET (UD) PO ONE (18:00)
[2017-05-02] MEDS ORDERED: HEPARIN INFUSION - 500 ML IVPB ONE (18:07)
--- NOTE | 2017-05-02 19:29 | PN ---
Progress Note (short form) - Note Progress Note: Vascular Surgery Pt seen and examined. No issues with cath. Awaiting INR to be therapeutic. Supa Walter dO
--- NOTE | 2017-05-02 20:16 | PN ---
Progress Note (short form) - Note Progress Note: 71 yearold female, admitted with bleeding from he right permacath site which was removed and anew one inserted in the left subclavian vein.Known case of CAD, S/PPCI/stenting,angina,permanent atrial fib.ESRD HD,multiple diabetese related complications. Nofurther bleeding, no chest bpain or discomfort,dyspnea or palpitations. Active Medications Acetaminophen (Tylenol -) 650 mg PO Q6H PRN PRN Reason: FEVER OR PAIN Last Admin: 04/30/17 20:26 Dose: 650 mg Acetaminophen (Tylenol -) 325 mg PO Q6H PRN PRN Reason: PAIN Last Admin: 05/01/17 22:48 Dose: 325 mg Alprazolam (Xanax -) 0.25 mg PO DAILY PRN Last Admin: 05/01/17 22:04 Dose: 0.25 mg Calcium Acetate (Phoslo -) 667 mg PO TIDCM [facility] Last Admin: 05/02/17 08:25 Dose: 667 mg Cyanocobalamin (Vitamin B12 -) 100 mcg PO DAILY [facility] Last Admin: 05/02/17 09:15 Dose: 100 mcg Heparin Sodium (Porcine) (Heparin -) 1,000 unit IVPUSH PRN PRN PRN Reason: Heparin Last Admin: 04/30/17 20:26 Dose: 1,000 unit Heparin Sodium (Porcine) (Heparin -) 5,000 unit IVPUSH PRN PRN PRN Reason: Heparin Heparin Sodium/Dextrose (Heparin Infusion -) 500 mls @ 20 mls/hr IVPB TITR [facility] ; 1,000 UNITS/HR PRN Reason: Protocol Last Admin: 05/01/17 12:32 Dose: 22 mls/hr Insulin Aspart (Novolog Vial Sliding Scale -) 1 vial SQ TIDAC [facility] PRN Reason: Protocol Last Admin: 05/02/17 06:44 Dose: Not Given Insulin Detemir (Levemir Vial) 20 units SQ BID@0700,2200 [facility] Last Admin: 05/02/17 06:44 Dose: 5 unit Lactobacillus Acidophilus (Bacid -) 1 tab PO DAILY [facility] Last Admin: 05/02/17 09:15 Dose: 1 tab Levothyroxine Sodium (Synthroid -) 200 mcg PO DAILY@0700 [facility] Last Admin: 08/07/17 06:23 Dose: 200 mcg Oxycodone HCl (Roxicodone -) 5 mg PO Q6H PRN PRN Reason: PAIN Last Admin: 05/01/17 22:47 Dose: 5 mg Polyethylene Glycol (Miralax (For Daily Use) -) 17 gm PO DAILY PRN PRN Reason: CONSTIPATION Simethicone (Mylicon -) 80 mg PO Q6H PRN Last Admin: 05/02/17 06:23 Dose: 80 mg Warfarin Sodium (Coumadin -) 5 mg PO DAILY@1800 [facility] Last Admin: 05/01/17 17:45 Dose: 5 mg O:71 year od femalewas in no distress,no pallor,cyanosis,clubbing or jaundice. Vital Signs - 8 hr 05/02/17 05/02/17 02:00 07:00 Temperature 98.5 F 98.5 F Pulse Rate 81 irregular 94 H Respiratory 18 19 Rate Blood Pressure 162/73 153/68 O2 Sat by Pulse 96 Oximetry (%) NECK:supple,noJVD,carotids are equal,no bruits or thyromegaly HEATRT:PMI in the 5th ICS, noheaves or thrills,S1 variable,S2 normal.No murmur or gallops heard. LUNGS:Clear. ABDOMEN:Soft,nontenderand obese,no organomegalyor masses felt. EXT:Right AKA, partial left foot amputation.No left lower ext. edema.Lt.hand figers have ischemic changed(bandaged). Abnormal Lab Results 05/02/17 05/02/17 05/02/17 05:35 05:35 05:35 RBC 3.31 L Hgb 10.2 L Hct 31.3 L INR 1.20 H PTT (Actin FS) 66.1 H D A: 1.CAD,S/P PCI/stenting,angina pectoris. 2.permanent atrial fib. 3.Diabetes mellitis. 4. Rt. AKA. 5. Lt. foot partially amputated. 6. EDRD HD. 7. Hypothyroidism. 8. Anemia. P: 1. Continue current cardiac therapy. 2. Weight reduction., 3. Outpatient F/U. 4. correction of hypothyroidism.
[2017-05-02] MEDS: ALPRAZolam 0.25 MG TABLET PO PRN (21:50)
[2017-05-02] MEDS: oxyCODONE HCL 5 MG TABLET PO PRN (21:52)
[2017-05-02] MEDS: ACETAMINOPHEN 325 MG TABLET (FP) PO PRN (21:53)
[2017-05-03] MEDS: INSULIN SLIDING SCALE (NOVOLOG) 1 VIAL SQ SCH ×3 (06:41→18:08)
[2017-05-03] MEDS: INSULIN DETEMIR 100 UNITS/ML MDV SQ SCH ×2 (06:42→21:29)
[2017-05-03] MEDS: LEVOTHYROXINE NA 125 MCG TABLET (FP) PO SCH (06:43)
[2017-05-03] MEDS: CALCIUM ACETATE 667 MG CAPSULE (FP) PO SCH ×3 (08:00→18:07)
[2017-05-03 09:47] LABS: INR 1.49 (0.82-1.09); PROTHROMBIN TIME (PATIENT) 16.5 SEC (9.98-11.88)
[2017-05-03 09:53] LABS: ANION GAP 14 (8-16); CALCIUM 7.4 mg/dL (8.5-10.1); CO2 23 mmol/L (21-32); GLUCOSE,RANDOM 138 mg/dL (74-106)
[2017-05-03 10:19] LABS: CREATININE 7.5 mg/dL (0.55-1.02)
--- NOTE | 2017-05-03 10:47 | PATH ---
Surgical Pathology Report Patient Name: GAMA OLSON Med. Rec. #: [id number] /Age/Gender: 1945 (Age: 71) / F Account: [id number] Location: 4 W TELEMETRY U Taken: 04/30/2017 Received: 05/02/2017 Reported: 05/03/2017 Physicians: Supa Walter Specimen(s) Received OLD PERMA CATHETER Clinical History End stage renal disease Final Diagnosis DEVICE, REMOVAL: DOUBLE LUMEN CATHETER CONSISTENT WITH PERMACATH (GROSS ONLY). Electronically Signed Luis Carlos Avalos M.D. Gross Description Received fresh labeled "permacath," is a 40 cm in length double lumen catheter. No soft tissue is present. No sections are submitted, gross only. 05/02/201705/02/2017
[2017-05-03] MEDS: HEPARIN INFUSION - 500 ML IVPB SCH (12:00)
--- NOTE | 2017-05-03 12:01 | PN ---
Progress Note, Physician Chief Complaint: pt examined in dialysis wants to go home on Heparin infusion no complaints - Current Medication List Current Medications: Active Medications Acetaminophen (Tylenol -) 650 mg PO Q6H PRN PRN Reason: FEVER OR PAIN Last Admin: 04/30/17 20:26 Dose: 650 mg Acetaminophen (Tylenol -) 325 mg PO Q6H PRN PRN Reason: PAIN Last Admin: 05/02/17 21:53 Dose: 325 mg Alprazolam (Xanax -) 0.25 mg PO DAILY PRN Last Admin: 05/02/17 21:50 Dose: 0.25 mg Calcium Acetate (Phoslo -) 667 mg PO TIDCM [facility] Last Admin: 05/02/17 17:52 Dose: 667 mg Cyanocobalamin (Vitamin B12 -) 100 mcg PO DAILY [facility] Last Admin: 05/02/17 09:15 Dose: 100 mcg Heparin Sodium (Porcine) (Heparin -) 1,000 unit IVPUSH PRN PRN PRN Reason: Heparin Last Admin: 04/30/17 20:26 Dose: 1,000 unit Heparin Sodium (Porcine) (Heparin -) 5,000 unit IVPUSH PRN PRN PRN Reason: Heparin Heparin Sodium/Dextrose (Heparin Infusion -) 500 mls @ 20 mls/hr IVPB TITR [facility] ; 1,000 UNITS/HR PRN Reason: Protocol Last Admin: 05/02/17 12:29 Dose: 22 mls/hr Insulin Aspart (Novolog Vial Sliding Scale -) 1 vial SQ TIDAC [facility] PRN Reason: Protocol Last Admin: 05/03/17 06:41 Dose: Not Given Insulin Detemir (Levemir Vial) 20 units SQ BID@0700,2200 [facility] Last Admin: 05/03/17 06:42 Dose: Not Given Lactobacillus Acidophilus (Bacid -) 1 tab PO DAILY [facility] Last Admin: 05/02/17 09:15 Dose: 1 tab Levothyroxine Sodium (Synthroid -) 250 mcg PO DAILY@0700 [facility] Last Admin: 05/03/17 06:43 Dose: 250 mcg Polyethylene Glycol (Miralax (For Daily Use) -) 17 gm PO DAILY PRN PRN Reason: CONSTIPATION Simethicone (Mylicon -) 80 mg PO Q6H PRN Last Admin: 05/02/17 06:23 Dose: 80 mg Warfarin Sodium (Coumadin -) 5 mg PO DAILY@1800 [facility] Last Admin: 05/02/17 17:52 Dose: 5 mg Warfarin Sodium (Coumadin -) 2 mg PO ONCE@1800 ONE Stop: 05/03/17 18:01 - Objective Vital Signs: Vital Signs Temperature 98.1 F 05/03/17 11:30 Pulse Rate 95 H 05/03/17 11:30 Respiratory Rate 16 05/03/17 11:30 Blood Pressure 183/71 05/03/17 11:30 O2 Sat by Pulse Oximetry (%) 95 05/03/17 06:00 Constitutional: Yes: No Distress, Calm Cardiovascular: Yes: Pulse Irregular Respiratory: Yes: Diminished Gastrointestinal: Yes: Normal Bowel Sounds, Soft. No: Distention, Tenderness Edema: No Labs: CBC, BMP 05/02/17 05:35 05/03/17 07:45 INR, PTT INR 1.49 (0.82-1.09) H 05/03/17 08:30 Problem List - Problems (1) DM type 2 causing complication Code(s): E11.8 - TYPE 2 DIABETES MELLITUS WITH UNSPECIFIED COMPLICATIONS (2) ESRD (end stage renal disease) on dialysis Code(s): N18.6 - END STAGE RENAL DISEASE Z99.2 - DEPENDENCE ON RENAL DIALYSIS (3) Hemodialysis catheter dysfunction Code(s): T82.41XA - BREAKDOWN (MECHANICAL) OF VASCULAR DIALYSIS CATHETER, INIT Qualifiers: Encounter type: initial encounter Qualified Code(s): T82.41XA - Breakdown (mechanical) of vascular dialysis catheter, initial encounter (4) Atrial fibrillation Code(s): I48.91 - UNSPECIFIED ATRIAL FIBRILLATION Qualifiers: Atrial fibrillation type: unspecified Qualified Code(s): I48.91 - Unspecified atrial fibrillation Assessment/Plan PLAN s/p permacath placement INR is still subtherapeutic give 7mg coumadin today, continue with heparin drip continue meds dc home is INR is therapeutic
[2017-05-03] MEDS ORDERED: BISACODYL 10 MG SUPP.RECT PR ONE (12:43)
[2017-05-03] MEDS ORDERED: SODIUM PHOSPHATE/NA BIPHOS 133 ML ENEMA PR ONE (12:43)
--- NOTE | 2017-05-03 12:57 | PN ---
Progress Note (short form) - Note Progress Note: Renal follow up for ESRD and hyperkalemia Pt seen and examined during dialysis catheter with good flow but was positional no acute complaints from pt no further bleeding noted pt wants to go home Vital Signs Temperature 98.1 F 05/03/17 11:30 Pulse Rate 95 H 05/03/17 11:30 Respiratory Rate 16 05/03/17 11:30 Blood Pressure 183/71 05/03/17 11:30 O2 Sat by Pulse Oximetry (%) 95 05/03/17 06:00 Gen: NAD CVS:RRR Lungs: CTA Abd: Obese, NT/ND Ext:trace edema CBC, BMP 05/02/17 05:35 05/03/17 07:45 Current Medications Acetaminophen (Tylenol -) 650 mg PO Q6H PRN PRN Reason: FEVER OR PAIN Last Admin: 04/30/17 20:26 Dose: 650 mg Acetaminophen (Tylenol -) 325 mg PO Q6H PRN PRN Reason: PAIN Last Admin: 05/02/17 21:53 Dose: 325 mg Alprazolam (Xanax -) 0.25 mg PO DAILY PRN Last Admin: 05/02/17 21:50 Dose: 0.25 mg Calcium Acetate (Phoslo -) 667 mg PO [facility]CM [facility] Last Admin: 05/02/17 17:52 Dose: 667 mg Cyanocobalamin (Vitamin B12 -) 100 mcg PO DAILY [facility] Last Admin: 05/02/17 09:15 Dose: 100 mcg Heparin Sodium (Porcine) (Heparin -) 1,000 unit IVPUSH PRN PRN PRN Reason: Heparin Last Admin: 04/30/17 20:26 Dose: 1,000 unit Heparin Sodium (Porcine) (Heparin -) 5,000 unit IVPUSH PRN PRN PRN Reason: Heparin Heparin Sodium/Dextrose (Heparin Infusion -) 500 mls @ 20 mls/hr IVPB TITR [facility] ; 1,000 UNITS/HR PRN Reason: Protocol Last Admin: 05/02/17 12:29 Dose: 22 mls/hr Insulin Aspart (Novolog Vial Sliding Scale -) 1 vial SQ TIDAC [facility] PRN Reason: Protocol Last Admin: 05/03/17 06:41 Dose: Not Given Insulin Detemir (Levemir Vial) 20 units SQ BID@0700,2200 [facility] Last Admin: 05/03/17 06:42 Dose: Not Given Lactobacillus Acidophilus (Bacid -) 1 tab PO DAILY [facility] Last Admin: 05/02/17 09:15 Dose: 1 tab Levothyroxine Sodium (Synthroid -) 250 mcg PO DAILY@0700 [facility] Last Admin: 05/03/17 06:43 Dose: 250 mcg Polyethylene Glycol (Miralax (For Daily Use) -) 17 gm PO DAILY PRN PRN Reason: CONSTIPATION Simethicone (Mylicon -) 80 mg PO Q6H PRN Last Admin: 05/02/17 06:23 Dose: 80 mg Warfarin Sodium (Coumadin -) 5 mg PO DAILY@1800 [facility] Last Admin: 05/02/17 17:52 Dose: 5 mg Warfarin Sodium (Coumadin -) 2 mg PO ONCE@1800 ONE Stop: 05/03/17 18:01 A/P 71 year old woman with PMhx of ESRD on HD, CAD, PVD, DM Type 2 on insulin, PVD s /p multiple amputations, multiple failed dialysis accesses presents from dialysis with bleeding from dialysis catheter skin exit site. #Bleeding from dialysis catheter site/Catheter malfunction s/p catheter exchange with no further bleeding catheter remains positional outpatient follow up with Vascular Sx #ESRD on HD tolerated dialysis well 2.7L UF was removed will plan for abridged dialysis tomorrow to resume regular MWF schedule #Afib on Coumadin INR subtheraputic on heparin gtt INR today is 1.49 Wan Cruz DO Problem List - Problems (1) Bleeding Code(s): R58 - HEMORRHAGE, NOT ELSEWHERE CLASSIFIED (2) ESRD (end stage renal disease) on dialysis Code(s): N18.6 - END STAGE RENAL DISEASE Z99.2 - DEPENDENCE ON RENAL DIALYSIS (3) Peripheral vascular disease due to secondary diabetes Code(s): E13.51 - OTH DIABETES W DIABETIC PERIPHERAL ANGIOPATHY W/O GANGRENE (4) DM type 2 causing complication Code(s): E11.8 - TYPE 2 DIABETES MELLITUS WITH UNSPECIFIED COMPLICATIONS
[2017-05-03 13:39] LABS: BASOPHIL 0.7 % (0-2.0); EOSINOPHIL 2.7 % (0-4.5); MCH 31.2 pg (25.7-33.7); MCHC 33.4 g/dl (32.0-36.0); MEAN CELL VOLUME 93.5 fl (80-96); MEAN PLT VOLUME 8.3 fl (7.5-11.1); NEUTROPHILS 76.4 % (42.8-82.8); PLATELET COUNT 275 K/MM3 (134-434); RDW 15.5 % (11.6-15.6); WHITE BLOOD COUNT 8.2 K/mm3 (4.0-10.0)
[2017-05-03] MEDS: LACTOBACILLUS ACIDOPHILUS 1 EACH TAB (FP) PO SCH (13:52)
[2017-05-03] MEDS: CYANOCOBALAMIN (VITAMIN B-12) 100 MCG TABLET PO SCH (13:52)
[2017-05-03] MEDS ORDERED: WARFARIN NA 2 MG TABLET (UD) PO ONE (18:00)
[2017-05-03] MEDS: SIMETHICONE 80 MG TAB.CHEW (FP) PO PRN (18:07)
[2017-05-03] MEDS: WARFARIN NA 5 MG TABLET (UD) PO SCH (18:07)
[2017-05-03] MEDS ORDERED: HEPARIN - 25,000 UNIT in SODIUM CHLORIDE 495 ML IV SCH (18:15)
--- NOTE | 2017-05-03 18:21 | PN ---
Progress Note (short form) - Note Progress Note: . 71 year old female a Known case of CAD,S/P PCI/stenting,angina,permanent atrial fib.ESRD HD, diabetese mellitus with multisystem involvement,No h/o chest pain or discomfort,no dyspnea,palpitations. complaining of constipation and has receiving treatment.No bleeding since the perma cath was changed. Active Medications Generic Name Dose Route Start Last Admin Trade Name Freq PRN Reason Stop Dose Admin Acetaminophen 650 mg 04/30/17 10:04/30/17 20:26 Tylenol - PO 650 mg Q6H PRN Administration FEVER OR PAIN Acetaminophen 325 mg 04/30/17 10:01 05/02/17 21:53 Tylenol - PO 325 mg Q6H PRN Administration PAIN Alprazolam 0.25 mg 04/30/17 22:46 05/02/17 21:50 Xanax - PO 0.25 mg DAILY PRN Administration Calcium Acetate 667 mg 04/30/17 12:00 05/03/17 13:53 Phoslo - PO 667 mg TIDCM [facility] Administration Cyanocobalamin 100 mcg 05/01/17 10:00 05/03/17 13:52 Vitamin B12 - PO 100 mcg DAILY [facility] Administration Heparin Sodium (Porcine) 1,000 unit 04/30/17 09:28 04/30/17 20:26 Heparin - IVPUSH 1,000 unit PRN PRN Administration Heparin Heparin Sodium (Porcine) 5,000 unit 04/30/17 09:28 Heparin - IVPUSH PRN PRN Heparin Heparin Sodium/Dextrose 500 mls @ 20 mls/hr 04/30/17 12:30 05/03/17 12:00 Heparin Infusion - IVPB 22 mls/hr TITR [facility] Administration Protocol 1,000 UNITS/HR Insulin Aspart 1 vial 04/30/17 11:00 05/03/17 12:00 Novolog Vial Sliding Scale - SQ Not Given TIDAC [facility] Protocol Insulin Detemir 20 units 04/30/17 22:00 05/03/17 06:42 Levemir Vial SQ Not Given BID@0700,2200 [facility] Lactobacillus Acidophilus 1 tab 05/01/17 10:00 05/03/17 13:52 Bacid - PO 1 tab DAILY [facility] Administration Levothyroxine Sodium 250 mcg 05/03/17 07:00 05/03/17 06:43 Synthroid - PO 250 mcg DAILY@0700 [facility] Administration Polyethylene Glycol 17 gm 04/30/17 10:01 Miralax (For Daily Use) - PO DAILY PRN CONSTIPATION Simethicone 80 mg 05/01/17 19:49 05/02/17 06:23 Mylicon - PO 80 mg Q6H PRN Administration Warfarin Sodium 5 mg 05/01/17 18:00 05/02/17 17:52 Coumadin - PO 5 mg DAILY@1800 [facility] Administration Warfarin Sodium 2 mg 05/03/17 18:00 Coumadin - PO 05/03/17 18:01 ONCE@1800 ONE O:71 year od female was in no distress,no pallor,cyanosis,clubbing or jaundice. Vital Signs - 8 hr 05/03/17 05/03/17 05/03/17 10:30 11:00 11:20 Temperature Pulse Rate 95 H 67 90 Respiratory 16 16 16 Rate Blood Pressure 122/47 112/44 168/82 05/03/17 05/03/17 11:30 15:47 Temperature 98.1 F 98.0 F Pulse Rate 95 H 72 Respiratory 16 Rate Blood Pressure 183/71 128/52 NECK: Supple, no JVD,-ve HJR,carotids were equal 2+,nobruits,no thyromegaly. HEART:PMI was in the 5th ICS, no heaves or thrills,S1 variable,S2 normal.No murmur or gallops heard. LUNGS:Clear. ABDOMEN:Soft,nontender,obese,no organomegaly or masses felt. EXT:Right AKA, partial left foot amputation.No left lower ext. edema,Lt.hand fingers have ischemic changes. (bandaged). Current Medications Generic Name Dose Route Start Last Admin Trade Name Freq PRN Reason Stop Dose Admin Acetaminophen 650 mg 04/30/17 10:01 04/30/17 20:26 Tylenol - PO 650 mg Q6H PRN Administration FEVER OR PAIN Acetaminophen 325 mg 04/30/17 10:01 05/02/17 21:53 Tylenol - PO 325 mg Q6H PRN Administration PAIN Alprazolam 0.25 mg 04/30/17 22:46 05/02/17 21:50 Xanax - PO 0.25 mg DAILY PRN Administration Calcium Acetate 667 mg 04/30/17 12:00 05/03/17 18:07 Phoslo - PO 667 mg TIDCM [facility] Administration Cyanocobalamin 100 mcg 05/01/17 10:00 05/03/17 13:52 Vitamin B12 - PO 100 mcg DAILY [facility] Administration Heparin Sodium (Porcine) 1,000 unit 04/30/17 09:28 04/30/17 20:26 Heparin - IVPUSH 1,000 unit PRN PRN Administration Heparin Insulin Aspart 1 vial 04/30/17 11:00 05/03/17 18:08 Novolog Vial Sliding Scale - SQ Not Given TIDAC [facility] Protocol Insulin Detemir 20 units 04/30/17 22:00 05/03/17 06:42 Levemir Vial SQ Not Given BID@0700,2200 [facility] Lactobacillus Acidophilus 1 tab 05/01/17 10:00 05/03/17 13:52 Bacid - PO 1 tab DAILY [facility] Administration Levothyroxine Sodium 250 mcg 05/03/17 07:00 05/03/17 06:43 Synthroid - PO 250 mcg DAILY@0700 [facility] Administration Simethicone 80 mg 05/01/17 19:49 05/03/17 18:07 Mylicon - PO 80 mg Q6H PRN Administration Warfarin Sodium 5 mg 05/01/17 18:00 05/03/17 18:07 Coumadin - PO 5 mg DAILY@1800 [facility] Administration Abnormal Lab Results 05/03/17 05/03/17 05/03/17 07:45 08:30 08:30 RBC Hct INR 1.49 H PTT (Actin FS) 65.8 H BUN 60 H Creatinine 7.5 H* Random Glucose 138 H Calcium 7.4 L 05/03/17 13:20 RBC 3.43 L Hct 32.0 L INR PTT (Actin FS) BUN Creatinine Random Glucose Calcium A: 1. Permanent atrial fib.with controlled ventricular response 2. Diabetes mellitus with multisystem involvement. 4. Rt. AKA. 5. Lt. foot partially amputated. 6. EDRD HD. 7. Hypothyroidism. 8. Anemia. 9. Hypothyroidism. A P: 1. Coumadinization in progress. 2. Recheck TSH. 3. Bedside PT. 4. correction of hypothyroidism in progress.
[2017-05-03] MEDS ORDERED: BISACODYL 5 MG TABLET.DR (FP) PO ONE (20:30)
[2017-05-03] MEDS: ALPRAZolam 0.25 MG TABLET PO PRN (21:28)
[2017-05-03] MEDS ORDERED: oxyCODONE HCL 5 MG TABLET PO PRN (22:25)
[2017-05-03] MEDS: ACETAMINOPHEN 325 MG TABLET (FP) PO PRN (22:39)
[2017-05-04] MEDS: ACETAMINOPHEN 325 MG TABLET (FP) PO PRN (01:51)
[2017-05-04] MEDS: LEVOTHYROXINE NA 125 MCG TABLET (FP) PO SCH (06:47)
[2017-05-04] MEDS: INSULIN SLIDING SCALE (NOVOLOG) 1 VIAL SQ SCH ×3 (06:51→16:52)
[2017-05-04] MEDS ORDERED: PT OWN MED DRAWER 7, Y5N ONE (06:53)
[2017-05-04] MEDS: INSULIN DETEMIR 100 UNITS/ML MDV SQ SCH (06:55)
[2017-05-04 07:33] LABS: MCH 31.1 pg (25.7-33.7); MCHC 32.9 g/dl (32.0-36.0); MEAN CELL VOLUME 94.5 fl (80-96); MEAN PLT VOLUME 8.4 fl (7.5-11.1); PLATELET COUNT 304 K/MM3 (134-434); RDW 15.2 % (11.6-15.6); WHITE BLOOD COUNT 9.7 K/mm3 (4.0-10.0)
[2017-05-04 07:54] LABS: INR 2.36 (0.82-1.09); PROTHROMBIN TIME (PATIENT) 26.4 SEC (9.98-11.88)
[2017-05-04 07:56] LABS: ACTIVATED PTT 74.1 SECONDS (26.9-34.4)
--- NOTE | 2017-05-04 08:23 | DS ---
Physical Examination Vital Signs: Vital Signs Temperature 98.8 F 05/04/17 06:00 Pulse Rate 79 05/04/17 06:00 Respiratory Rate 18 05/04/17 06:00 Blood Pressure 163/65 05/04/17 06:00 O2 Sat by Pulse Oximetry (%) 97 05/04/17 06:00 Constitutional: Yes: No Distress, Calm Cardiovascular: Yes: Pulse Irregular Respiratory: Yes: Diminished Gastrointestinal: Yes: Normal Bowel Sounds, Soft. No: Tenderness Edema: No Labs: CBC, BMP 05/04/17 05:48 05/03/17 07:45 Discharge Summary Reason For Visit: HEMODIALYSIS CATHETER DYSFUNCTION Current Active Problems Bleeding (Acute) DM type 2 causing complication (Acute) ESRD (end stage renal disease) on dialysis (Acute) Hemodialysis catheter dysfunction (Acute) Peripheral vascular disease due to secondary diabetes (Acute) Hospital Course: Pt admitted for malfunctioning dialysis catheter.Was bleeding during outpt dialysis and sent to the ER for evaluation. Her potassium levels were 6.1, now its 4.5 Seen by Renal and Vascular surgeon had replacement of permacath Heparin and Coumadin restarted -- INR is 2.36 Tolerated HD today Pt is stable for dc home Will be on Coumadin 3mg daily Also sent Xanax and Oxycodone to pharmacy-- HCS verified Condition: Improved - Instructions Referrals: Jessenia Galarza MD [Primary Care Provider] - Disposition: HOME - Home Medications Comprehensive Discharge Medication List: Ambulatory Orders Calcium Acetate [Phoslo -] 667 mg PO TID 04/06/16 Polyethylene Glycol 3350 [Miralax 119 gm Btl -] 17 gm PO DAILY PRN #30 bottle Aspirin [ASA -] 81 mg PO DAILY 02/16/17 Clopidogrel Bisulfate [Plavix -] 75 mg PO Q48H 02/16/17 Cyanocobalamin [Vitamin B12 -] 100 mcg PO DAILY 02/16/17 Glipizide [Glipizide ER] 5 mg PO DAILY 02/16/17 Insulin Aspart [Novolog] 0 unit SQ PRN PRN 02/16/17 Insulin Detemir [Levemir Flextouch] 20 unit SQ BID 04/29/17 Lactobacillus Acidophilus [Probiotic Acidophilus] 1 each PO DAILY 04/29/17 Alprazolam [Xanax] 0.25 mg PO DAILY PRN #30 tablet MDD 1 05/04/17 Levothyroxine [Synthroid -] 250 mcg PO DAILY@0700 #30 tablet 05/04/17 Oxycodone HCl [Roxicodone -] 5 mg PO Q6H PRN #30 tablet MDD 4 05/04/17 Warfarin Na [Coumadin -] 3 mg PO DAILY #60 tablet 05/04/17
[2017-05-04] MEDS: CALCIUM ACETATE 667 MG CAPSULE (FP) PO SCH ×2 (09:00→12:53)
[2017-05-04] MEDS: SIMETHICONE 80 MG TAB.CHEW (FP) PO PRN (09:26)
[2017-05-04 10:49] LABS: ANION GAP 12 (8-16); CALCIUM 7.6 mg/dL (8.5-10.1); CO2 30 mmol/L (21-32); GLUCOSE,RANDOM 184 mg/dL (74-106)
[2017-05-04] MEDS: LACTOBACILLUS ACIDOPHILUS 1 EACH TAB (FP) PO SCH (12:52)
[2017-05-04] MEDS: CYANOCOBALAMIN (VITAMIN B-12) 100 MCG TABLET PO SCH (12:52)
--- NOTE | 2017-05-04 13:22 | PN ---
Progress Note (short form) - Note Progress Note: Renal follow up for ESRD and hyperkalemia Pt seen and examined at the bedside s/p dialysis this am no acute complaints awaiting discharge Vital Signs Temperature 98.7 F 05/04/17 10:00 Pulse Rate 69 05/04/17 12:15 Respiratory Rate 18 05/04/17 12:15 Blood Pressure 123/55 05/04/17 12:15 O2 Sat by Pulse Oximetry (%) 97 05/04/17 09:00 Intake & Output 05/01/17 05/02/17 05/03/17 05/04/17 23:59 23:59 23:59 23:59 Intake Total 219 917 6130 704 Balance 979 929 2444 704 Weight 197 lb 4 oz Gen: NAD CVS:RRR Lungs: CTA Abd: Obese, NT/ND Ext:trace edema CBC, BMP 05/04/17 05:48 05/04/17 09:55 Laboratory Tests 05/04/17 09:55 Calcium 7.6 L Current Medications Acetaminophen (Tylenol -) 650 mg PO Q6H PRN PRN Reason: FEVER OR PAIN Last Admin: 05/04/17 01:51 Dose: 650 mg Acetaminophen (Tylenol -) 325 mg PO Q6H PRN PRN Reason: PAIN Last Admin: 05/03/17 22:39 Dose: 325 mg Calcium Acetate (Phoslo -) 667 mg PO TIDCM [facility] Last Admin: 05/04/17 12:53 Dose: 667 mg Cyanocobalamin (Vitamin B12 -) 100 mcg PO DAILY [facility] Last Admin: 05/04/17 12:52 Dose: 100 mcg Insulin Aspart (Novolog Vial Sliding Scale -) 1 vial SQ TIDAC [facility] PRN Reason: Protocol Last Admin: 05/04/17 12:53 Dose: Not Given Insulin Detemir (Levemir Vial) 20 units SQ BID@0700,2200 [facility] Last Admin: 05/04/17 06:55 Dose: 8 unit Lactobacillus Acidophilus (Bacid -) 1 tab PO DAILY [facility] Last Admin: 05/04/17 12:52 Dose: 1 tab Levothyroxine Sodium (Synthroid -) 250 mcg PO DAILY@0700 [facility] Last Admin: 05/04/17 06:47 Dose: 250 mcg Oxycodone HCl (Roxicodone -) 5 mg PO Q6H PRN PRN Reason: PAIN Last Admin: 05/03/17 22:38 Dose: 5 mg Polyethylene Glycol (Miralax (For Daily Use) -) 17 gm PO DAILY PRN PRN Reason: CONSTIPATION Simethicone (Mylicon -) 80 mg PO Q6H PRN Last Admin: 05/04/17 09:26 Dose: 80 mg Warfarin Sodium (Coumadin -) 5 mg PO DAILY@1800 YOAN Last Admin: 05/03/17 18:07 Dose: 5 mg A/P 71 year old woman with PMhx of ESRD on HD, CAD, PVD, DM Type 2 on insulin, PVD s /p multiple amputations, multiple failed dialysis accesses presents from dialysis with bleeding from dialysis catheter skin exit site. #Bleeding from dialysis catheter site/Catheter malfunction catheter exchanged and functioning well #ESRD on HD s/p HD this am with 1.5L UF to resume regular HD schedule on Tuesday as outpatient #Afib on Coumadin INR therapeutic today Wan Cruz DO Problem List - Problems (1) Bleeding Code(s): R58 - HEMORRHAGE, NOT ELSEWHERE CLASSIFIED (2) ESRD (end stage renal disease) on dialysis Code(s): N18.6 - END STAGE RENAL DISEASE Z99.2 - DEPENDENCE ON RENAL DIALYSIS (3) Peripheral vascular disease due to secondary diabetes Code(s): E13.51 - OTH DIABETES W DIABETIC PERIPHERAL ANGIOPATHY W/O GANGRENE (4) DM type 2 causing complication Code(s): E11.8 - TYPE 2 DIABETES MELLITUS WITH UNSPECIFIED COMPLICATIONS
[2017-05-04 14:16] VITALS: BP 145/79; PULSE 102; TEMP 98.4
== END 2017-05-04 17:19 | disposition home or self-care (01) | DRG 252 ==
LOC: JER 13:00 → JERBED 15:07 → J4W 17:16 → J5S 17:45 → J4W 18:00
PROVIDERS: ADMIT Internal Medicine; ATTEND Internal Medicine
PROC: 05PY03Z Removal of Infusion Device from Upper Vein, Open Approach (ICD-10-PCS; 2017-04-30)
PROC: 02H633Z Insertion of Infusion Device into Right Atrium, Percutaneous Approach (ICD-10-PCS; 2017-04-30)
PROC: B214YZZ Fluoroscopy of Right Heart using Other Contrast (ICD-10-PCS; 2017-04-30)
PROC: 3E033GC Introduction of Other Therapeutic Substance into Peripheral Vein, Percutaneous Approach (ICD-10-PCS; principal; 2017-04-30 08:30)
DX: T82.41XA Breakdown (mechanical) of vascular dialysis catheter, initial encounter (principal); N18.6 End stage renal disease; I12.0 Hypertensive chronic kidney disease with stage 5 chronic kidney disease or end stage renal disease; Y83.8 Other surgical procedures as the cause of abnormal reaction of the patient, or of later complication, without mention of misadventure at the time of the procedure; Y92.89 Other specified places as the place of occurrence of the external cause; E11.22 Type 2 diabetes mellitus with diabetic chronic kidney disease; I25.10 Atherosclerotic heart disease of native coronary artery without angina pectoris; E78.5 Hyperlipidemia, unspecified; E11.51 Type 2 diabetes mellitus with diabetic peripheral angiopathy without gangrene; J44.9 Chronic obstructive pulmonary disease, unspecified; E03.9 Hypothyroidism, unspecified; E53.9 Vitamin B deficiency, unspecified; E55.9 Vitamin D deficiency, unspecified; E87.5 Hyperkalemia; D63.1 Anemia in chronic kidney disease; R58 Hemorrhage, not elsewhere classified; I48.91 Unspecified atrial fibrillation; Z79.01 Long term (current) use of anticoagulants; Z99.2 Dependence on renal dialysis; Z95.5 Presence of coronary angioplasty implant and graft; Z79.4 Long term (current) use of insulin; Z86.14 Personal history of Methicillin resistant Staphylococcus aureus infection; Z89.611 Acquired absence of right leg above knee; Z89.432 Acquired absence of left foot
CPT/HCPCS: 36415; 71010-TC; 73140-TC-LT; 76000-TC; 76604; 80048; 80053; 83036; 83735; 84132; 84443; 85025; 85027; 85610; 85730; 86704; 86706; 86708; 86803; 87340; 88300-TC; 93005; 93010; 93971; 94760; 99285-25; G0463-25; J1644

== ENCOUNTER 2017-09-02 09:06 | Emergency (ER) | payer OTHER ==
--- NOTE | 2017-09-02 09:19 | PDOC ---
Attending Attestation - Resident Resident Name: Rodolfo Urrutia - HPI HPI: 09/02/17 10:39 Pt presents to the ED complaining of multiple episodes of syncope. States that she has not eaten for two days. Also reports feeling nauseated for several days. Denies chest pain, but does complain of nausea and diaphoresis. Extensive past medical history as described above. - Physicial Exam PE: 09/02/17 11:00 Agree with resident exam. Patient was initially alert and oriented, then became less responsive. Patient is having intermittent episodes of bradycardia with long pauses that respond to atropine and pacing. - Critical Care Time Total Critical Care Time: 75 Critical Care Statement: The care of this patient involved high complexity decision making to prevent further life threatening deterioration of the patient 's condition and/or to evaluate & treat vital organ system(s) failure or risk of failure. - Medical Decision Making 09/02/17 11:08 Patient presents to the ED complaining of syncope. Multiple episodes of bradycardia that respond to atropine and pacing. Troponin is 12. Case discussed with Dr. Richard, who is arranging transfer to [facility]. 09/02/17 14:20 The patient was at risk of life threatening disease including severe bradycardia , asystole and . I provided 75 minutes of critical care time excluding separately bilable procedures.
[2017-09-02] MEDS ORDERED: ASPIRIN 81 MG CHEWABLE TABLETS PO ONE (09:20)
[2017-09-02] MEDS ORDERED: CALCIUM GLUCONATE 10% - 1,000 MG/10 ML VIAL ONE (09:35)
[2017-09-02 09:36] VITALS: TEMP 97.4; BMI 30.5
[2017-09-02] MEDS ORDERED: ONDANSETRON 4 MG/2 ML VIAL ONE (09:41)
[2017-09-02 09:43] LABS: BASOPHIL 0.9 % (0-2.0); EOSINOPHIL 0.1 % (0-4.5); MCH 31.6 pg (25.7-33.7); MCHC 31.7 g/dl (32.0-36.0); MEAN CELL VOLUME 99.6 fl (80-96); MEAN PLT VOLUME 8.3 fl (7.5-11.1); NEUTROPHILS 86.2 % (42.8-82.8); PLATELET COUNT 439 K/MM3 (134-434); RDW 16.8 % (11.6-15.6); WHITE BLOOD COUNT 15.1 K/mm3 (4.0-10.0)
--- NOTE | 2017-09-02 09:59 | PDOC ---
History of Present Illness <Seun Browne - Last Filed: 09/02/17 10:49> - History of Present Illness Initial Comments: 09/02/17 10:53 Ms. Castillo is a 72 yo female w/ pmh of DMII, ESRD on dialysis MWF, PVD 2/2 diabetes, and several cardiac stents, currently on Coumadin, ASA, and plavix who presents w/ a 1 day history of syncopal episodes that are followed by chest tightness and sweats. She reports one episode last night and had several episodes this AM before coming into the ER via EMS. The patient denies headache and dizziness. Denies fever, chills, nausea, vomit, diarrhea and constipation. Denies dysuria, frequency, urgency and hematuria. Allergies: Sulfa drugs <Rodolfo Urrutia - Last Filed: 09/02/17 12:56> - General Chief Complaint: Syncope/Near Syncope Stated Complaint: SYNCOPY Time Seen by Provider: 09/02/17 09:19 Past History <Seun Browne - Last Filed: 09/02/17 10:49> - Past Medical History Anemia: Yes Asthma: No Cancer: No Cardiac Disorders: Yes (Atherosclerotic Heart Disease, Ischemia) CVA: No COPD: No CHF: Yes (6 YEARS AGO) Dementia: No Diabetes: Yes (Type II) Dialysis: Yes (-) GI Disorders: No Disorders: Yes (CRF;dialysis -- [id number]) HTN: Yes Hypercholesterolemia: Yes Liver Disease: No Seizures: No Thyroid Disease: Yes (Thyrotoxicosis) - Surgical History Abdominal Surgery: No Appendectomy: No Cardiac Surgery: Yes (STENTS X3) Cholecystectomy: No Lung Surgery: No Neurologic Surgery: No Orthopedic Surgery: Yes (R.Rotator Cuff, R.AKA. LEFT MID FOOT AMPUTATION) - Immunization History Immunization Up to Date: Yes - Suicide/Smoking/Psychosocial Hx Smoking Status: No Smoking History: Never smoked Have you smoked in the past 12 months: No Number of Cigarettes Smoked Daily: 0 Information on smoking cessation initiated: No Hx Alcohol Use: No Drug/Substance Use Hx: No Substance Use Type: None Hx Substance Use Treatment: No <Rodolfo Urrutia - Last Filed: 09/02/17 12:56> - Past Medical History Allergies/Adverse Reactions: Allergies Allergy/AdvReac Type Severity Reaction Status Date / Time adhesive tape Allergy Severe SKIN TEAR Verified 04/29/17 14:07 Sulfa (Sulfonamide Allergy Unknown DOESN'T Verified 04/29/17 14:07 Antibiotics) REMEMBER [Sulfa(Sulfonamide Antibiotics)] amoxicillin trihydrate AdvReac Severe DIARRHEA Verified 04/29/17 14:07 [From Augmentin] potassium clavulanate AdvReac Severe DIARRHEA Verified 04/29/17 14:07 [From Augmentin] Home Medications: Ambulatory Orders Calcium Acetate [Phoslo -] 2 tab PO TID 04/06/16 Polyethylene Glycol 3350 [Miralax 119 gm Btl -] 17 gm PO DAILY PRN #30 bottle Aspirin [ASA -] 81 mg PO DAILY 02/16/17 Clopidogrel Bisulfate [Plavix -] 75 mg PO Q48H 02/16/17 Cyanocobalamin [Vitamin B12 -] 100 mcg PO DAILY 02/16/17 Glipizide [Glipizide ER] 10 mg PO DAILY 02/16/17 Insulin Aspart [Novolog] 0 unit SQ PRN PRN 02/16/17 Insulin Detemir [Levemir Flextouch] 20 unit SQ BID 04/29/17 Lactobacillus Acidophilus [Probiotic Acidophilus] 1 each PO DAILY 04/29/17 Alprazolam [Xanax] 0.25 mg PO DAILY PRN #30 tablet MDD 1 05/04/17 Levothyroxine [Synthroid -] 250 mcg PO DAILY@0700 #30 tablet 05/04/17 Oxycodone HCl [Roxicodone -] 5 mg PO Q6H PRN #30 tablet MDD 4 05/04/17 Pantoprazole Sodium [Protonix] 40 mg PO DAILY 09/02/17 Warfarin Na [Coumadin -] 2 mg PO HS 09/02/17 Review of Systems - Review of Systems Comments:: 09/02/17 11:10 GENERAL/CONSTITUTIONAL: +Weakness with nausea during syncopal episodes. No fever or chills. HEAD, EYES, EARS, NOSE AND THROAT: No change in vision. No ear pain or discharge. No sore throat. CARDIOVASCULAR: +Chest tightness following each episode with shortness of breath RESPIRATORY: No cough, wheezing, or hemoptysis. GASTROINTESTINAL: +Nausea as described, no vomiting, diarrhea or constipation. GENITOURINARY: No dysuria, frequency, or change in urination. MUSCULOSKELETAL: No joint or muscle swelling or pain. No neck or back pain. SKIN: No rash NEUROLOGIC: +Loss of consciousness as described above. No headache, vertigo, or change in strength/sensation. ENDOCRINE: No increased thirst. No abnormal weight change HEMATOLOGIC/LYMPHATIC: No anemia, easy bleeding, or history of blood clots. ALLERGIC/IMMUNOLOGIC: No hives or skin allergy. <Rodolfo Urrutia - Last Filed: 09/02/17 12:56> *Physical Exam - Vital Signs Last Vital Signs Temp Pulse Resp BP Pulse Ox 97.4 F L 105 H 20 114/74 09/02/17 09:19 09/02/17 09:19 09/02/17 09:19 09/02/17 09:19 <Seun Browne - Last Filed: 09/02/17 10:49> - Vital Signs Last Vital Signs Temp Pulse Resp BP Pulse Ox 97.4 F L 105 H 20 114/74 09/02/17 09:19 09/02/17 09:19 09/02/17 09:19 09/02/17 09:19 - Physical Exam Comments: 09/02/17 11:12 GENERAL: Awake, alert, and fully oriented HEAD: No signs of trauma, normocephalic, atraumatic EYES: PERRLA, EOMI, sclera anicteric, conjunctiva clear ENT: Auricles normal inspection, hearing grossly normal, nares patent, oropharynx clear without exudates. Moist mucosa NECK: Normal ROM, supple, no lymphadenopathy, JVD, or masses LUNGS: No distress, speaks full sentences, clear to auscultation bilaterally HEART: +Patient in afib and currently paced. ABDOMEN: Soft, nontender, normoactive bowel sounds. No guarding, no rebound. No masses EXTREMITIES: +Well healed right Lower Extremity amputation noted. Fingertips on Left upper extremity noted to have wounds 2/2 PVD. NEUROLOGICAL: Cranial nerves II through XII grossly intact. Normal speech, no focal sensorimotor deficits SKIN: Warm, Dry, normal turgor, no rashes or lesions noted. <Rodolfo Urrutia - Last Filed: 09/02/17 12:56> ED Treatment Course - LABORATORY CBC & Chemistry Diagram: 09/02/17 09:40 09/02/17 09:40 - ADDITIONAL ORDERS Additional order review: Laboratory Results 09/02/17 09/02/17 09:40 09:40 Sodium 135 L Potassium 4.8 Chloride 99 Carbon Dioxide 21 D Anion Gap 15 BUN 40 H D Creatinine 5.4 H Creat Clearance w eGFR 7.74 Random Glucose 201 H Lactic Acid 2.7 H* Calcium 8.1 L Total Bilirubin 0.5 D AST 55 H D ALT 39 D Alkaline Phosphatase 143 H D Creatine Kinase 199 H Creatine Kinase Index 8.5 H* CK-MB (CK-2) 17.099 H Troponin I 12.20 H* Total Protein 7.1 Albumin 2.9 L 09/02/17 09:40 RBC 3.61 MCV 99.6 H MCHC 31.7 L RDW 16.8 H D MPV 8.3 Neutrophils % 86.2 H Lymphocytes % 8.6 D Monocytes % 4.2 Eosinophils % 0.1 D Basophils % 0.9 - Consult/PCP Time Called: 10:40 Case discussed with personal care physician: Jessenia Galarza - Additional Consults Time Called: 09:20 Consult/PCP: Dr. Lopez (Cardiology) came down to see the patient <Seun Browne - Last Filed: 09/02/17 10:49> - LABORATORY CBC & Chemistry Diagram: 09/02/17 09:40 09/02/17 09:40 <Rodolfo Urrutia - Last Filed: 09/02/17 12:56> Medical Decision Making - Medical Decision Making 09/02/17 11:19 Ms. Castillo presented in acute afib experiencing syncopal episodes. 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 Patient had 3 additional sycopal episodes given in ER. Atropine, bicarbonate, and calcium administered for first episode. Second episode resolved with additional atropine and bicarbonate. Third resolved with pacing. Patient now remaining alert and oriented with active pacing. Patient noted to have new right bundle branch block with ST depression on EKG. Will transfer patient to [facility] for further cardiac care for presumed NSTEMI. 09/02/17 12:37 Patient had additional syncopal episode - additional atropine given and amplitude increased on pacer and capture resumed with resolution of episode. Dopamine drip started for en route at 10 and patient transferred to [facility], 09/02/17 12:55 <Rodolfo Urrutia - Last Filed: 09/02/17 12:56> *DC/Admit/Observation/Transfer <Seun Browne - Last Filed: 09/02/17 10:49> <Rodolfo Urrutia - Last Filed: 09/02/17 12:56> Diagnosis at time of Disposition: NSTEMI (non-ST elevated myocardial infarction) - Discharge Dispostion Disposition: TRANSFER ACUTE CARE/OTHER HOSP - Referrals Referrals: Jessenia Galarza MD [Primary Care Provider] - - Patient Instructions - Post Discharge Activity
[2017-09-02 10:02] LABS: ALBUMIN 2.9 g/dl (3.4-5.0); ANION GAP 15 (8-16); CALCIUM 8.1 mg/dL (8.5-10.1); CO2 21 mmol/L (21-32); CREATININE 5.4 mg/dL (0.55-1.02); GLUCOSE,RANDOM 201 mg/dL (74-106); SGPT/ALT 39 U/L (12-78)
[2017-09-02 10:03] LABS: SGOT/AST 55 U/L (15-37)
[2017-09-02 10:04] LABS: BILIRUBIN,TOTAL 0.5 mg/dL (0.2-1.0); TOT PROT 7.1 g/dl (6.4-8.2)
[2017-09-02 10:09] LABS: ALK PHOS 143 U/L (45-117); CPK 199 IU/L (26-192)
[2017-09-02] MEDS ORDERED: ATROPINE SULFATE 1 MG/10 ML DISP.SYRIN IVPUSH ONE ×4 (11:23→12:55)
[2017-09-02] MEDS ORDERED: SODIUM BICARBONATE 8.4% 50 MEQ/50 ML DISP.SYRIN IVPUSH ONE ×2 (11:24→11:25)
[2017-09-02] MEDS ORDERED: CALCIUM GLUCONATE 10% - 1,000 MG/10 ML VIAL IVPUSH ONE (11:25)
--- NOTE | 2017-09-02 11:32 | CON.CARD ---
Consult Consult Specialty:: Cardiology Referred by:: Azul Sanchez - History of Present Illness Chief Complaint: Chest discomfort. Recurring loss of consciousness. 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 According to her caregiver she was experiencing recurring chest discomfort since last Tuesday and last night patient developed severe anterior pressure like chest pain associated with profuse diaphoresis, mild shortness of breath and had a syncopal episode. Symptoms recurred this morning. She was brought to the ED and had two syncopal episodes and was found to have a heart rate in the 20s. Patient received IV atropine and because of recurring episodes of advanced AV block, an external pacemaker was placed. During periods of advanced AV block , patient was cold and clammy and was hypotensive. Patient missed her HD on Tuesday. Past Surgical History: See present history. S/p Thyroid surgery Social History: Not obtained. Family History: Not available. Medications: Calcium Acetate [Phoslo -] 667 mg PO TID 04/06/16 Polyethylene Glycol 3350 [Miralax 119 gm Btl -] 17 gm PO DAILY PRN #30 bottle Aspirin [ASA -] 81 mg PO DAILY 02/16/17 Clopidogrel Bisulfate [Plavix -] 75 mg PO Q48H 02/16/17 Cyanocobalamin [Vitamin B12 -] 100 mcg PO DAILY 02/16/17 Glipizide [Glipizide ER] 5 mg PO DAILY 02/16/17 Insulin Aspart [Novolog] 0 unit SQ PRN PRN 02/16/17 Insulin Detemir [Levemir Flextouch] 20 unit SQ BID 04/29/17 Lactobacillus Acidophilus [Probiotic Acidophilus] 1 each PO DAILY 04/29/17 Alprazolam [Xanax] 0.25 mg PO DAILY PRN #30 tablet MDD 1 05/04/17 Levothyroxine [Synthroid -] 250 mcg PO DAILY@0700 #30 tablet 05/04/17 Oxycodone HCl [Roxicodone -] 5 mg PO Q6H PRN #30 tablet MDD 4 05/04/17 Pantoprazole Sodium [Protonix] 40 mg PO DAILY 09/02/17 Warfarin Na [Coumadin -] 2 mg PO HS 09/02/17 Synthroid 250 mcg PO daily - Past Medical History [employer]EM[employer]: Yes: 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 No: Hematuria Infectious Disease: Yes: MRSA Musculoskeletal: Yes: Other (R rotator cuff repair) Endocrine: Yes: Diabetes Mellitus, Hypothyroidism Additional Medical History: Steal syndrome , PVD- s//p surgery. End stage renal disease (hemodialysis 3x per week). Congestive heart failure. Diabetes. Hypertension. Hyperlipidemia. Peripheral vascular occlusive disease. Hypothyroidism. Anemia. Gastroesophageal reflux disease - Past Surgical History Past Surgical History: Yes: Amputation (Rt AKA, left TMA), Hysterectomy ( thyroid surgery), Stent - Alcohol/Substance Use Hx Alcohol Use: No History of Substance Use: reports: None - Smoking History Smoking history: Never smoked Have you smoked in the past 12 months: No Aproximately how many cigarettes per day: 0 - Social History ADL: Independent History of Recent Travel: No Home Medications - Allergies Allergies/Adverse Reactions: Allergies Allergy/AdvReac Type Severity Reaction Status Date / Time adhesive tape Allergy Severe SKIN TEAR Verified 04/29/17 14:07 Sulfa (Sulfonamide Allergy Unknown DOESN'T Verified 04/29/17 14:07 Antibiotics) REMEMBER [Sulfa(Sulfonamide Antibiotics)] amoxicillin trihydrate AdvReac Severe DIARRHEA Verified 04/29/17 14:07 [From Augmentin] potassium clavulanate AdvReac Severe DIARRHEA Verified 04/29/17 14:07 [From Augmentin] - Home Medications Home Medications: Ambulatory Orders Calcium Acetate [Phoslo -] 2 tab PO TID 04/06/16 Polyethylene Glycol 3350 [Miralax 119 gm Btl -] 17 gm PO DAILY PRN #30 bottle Aspirin [ASA -] 81 mg PO DAILY 02/16/17 Clopidogrel Bisulfate [Plavix -] 75 mg PO Q48H 02/16/17 Cyanocobalamin [Vitamin B12 -] 100 mcg PO DAILY 02/16/17 Glipizide [Glipizide ER] 10 mg PO DAILY 02/16/17 Insulin Aspart [Novolog] 0 unit SQ PRN PRN 02/16/17 Insulin Detemir [Levemir Flextouch] 20 unit SQ BID 04/29/17 Lactobacillus Acidophilus [Probiotic Acidophilus] 1 each PO DAILY 04/29/17 Alprazolam [Xanax] 0.25 mg PO DAILY PRN #30 tablet MDD 1 05/04/17 Levothyroxine [Synthroid -] 250 mcg PO DAILY@0700 #30 tablet 05/04/17 Oxycodone HCl [Roxicodone -] 5 mg PO Q6H PRN #30 tablet MDD 4 05/04/17 Pantoprazole Sodium [Protonix] 40 mg PO DAILY 09/02/17 Warfarin Na [Coumadin -] 2 mg PO HS 09/02/17 Review of Systems - Review of Systems Constitutional: reports: Diaphoresis Cardiovascular: reports: Chest Pain, Shortness of Breath Neurological: reports: Syncope Vital Signs: Vital Signs Temperature 97.4 F L 09/02/17 09:19 Pulse Rate 105 H 09/02/17 09:19 Respiratory Rate 20 09/02/17 09:19 Blood Pressure 114/74 09/02/17 09:19 O2 Sat by Pulse Oximetry (%) 100 09/02/17 09:10 Constitutional: Yes: Anxious, Ashen, Moderate Distress, Pallor Cardiovascular: Yes: Bradycardia, Pulse Irregular, Other (Positive HJR.) JVD: No Heart Sounds: Yes: S1, S2, S3, Gallop Murmur: Yes: Systolic Murmur, Grade 1 Extremities: Yes: Amputation (Right AKA, Partial amputation of the left foot, Partial amputation of the finger in the left hand.) Edema: LLE: 2+ - Other Data Labs, Other Data: CBC, BMP 09/02/17 09:40 09/02/17 09:40 Troponin, BNP 09/02/17 09:40 Troponin I 12.20 H* Troponin, BNP 09/02/17 09:40 Troponin I 12.20 H* Imaging - Results Chest X-ray: Report Reviewed Assessment/Plan Impression: 1. CAD, s/p Multivessel PCI/Stenting, NSTEMI, Presently pain free. 2. Recurring advanced AV block. 3. Permanent Atrial fibrillation. 4. 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 5. Diabetes Mellitus with multi system involvement. 6. ESRD HD. 7. History of Hypertension 8. Intermittent hypotensive episodes associated with periods of advanced AV block. 9. Diffuse atherosclerosis. 10. Peripheral arterial disease. 11. S/p Right AKA 12. S/p partial amputation of the left foot. 13. History of gangrenous changes involving the fingers of the left hand 14. History of anxiety disorder. 15. Hypothyroidism. Recommendations: 1. Emergent transfer to [facility], arrangements have been made. 2. External pacemaker in place. 3. If hypotensive episodes were to occur add vasopressors. 4. Family is aware of the critical status of the patient. 5. If blood pressure remains stable add IV Nitro. Prognosis: Critical. Critical Care Time: 90 minutes.
[2017-09-02] MEDS ORDERED: DOPAMINE 400 MG/D5W - 400,000 MCG/250 ML INFUS.BAG IVPB SCH (13:00)
[2017-09-02 15:10] VITALS: BP 128/98; PULSE 108
--- NOTE | 2017-09-05 15:11 | EKG ---
Test Reason : Blood Pressure : / mmHG Vent. Rate : 114 BPM Atrial Rate : 101 BPM P-R Int : 000 ms QRS Dur : 066 ms QT Int : 362 ms P-R-T Axes : 000 119 000 degrees QTc Int : 498 ms ATRIAL FIBRILLATION WITH RAPID VENTRICULAR RESPONSE WITH PREMATURE VENTRICULAR OR ABERRANTLY CONDUCTED COMPLEXES RIGHT AXIS DEVIATION LOW VOLTAGE QRS CANNOT RULE OUT SEPTAL INFARCT , AGE UNDETERMINED ABNORMAL ECG WHEN COMPARED WITH ECG OF 29-APR-2017 13:57, VENT. RATE HAS INCREASED PREMATURE VENTRICULAR COMPLEXES ARE SEEN Confirmed by AKASH VIZCAINO MD ([id number]) on 09/05/2017 3:10:57 PM Referred By: Confirmed By:AKASH VIZCAINO MD
== END 2017-09-02 12:25 | disposition short-term general hospital (02) ==
LOC: JER 09:06
PROC: 3E033GC Introduction of Other Therapeutic Substance into Peripheral Vein, Percutaneous Approach (ICD-10-PCS; principal; 2017-09-02)
DX: E11.22 Type 2 diabetes mellitus with diabetic chronic kidney disease (principal); N18.6 End stage renal disease; Z99.2 Dependence on renal dialysis; Z79.4 Long term (current) use of insulin; E78.00 Pure hypercholesterolemia, unspecified; I50.9 Heart failure, unspecified; D64.9 Anemia, unspecified; Z95.5 Presence of coronary angioplasty implant and graft
CPT/HCPCS: 36415; 71010-TC; 80053; 82550; 82553; 83605; 84484; 85025; 86850; 86870; 86900; 86901; 86902; 93005; 93010; 96365; 96375; 96376; 99284-25

== ENCOUNTER 2017-10-30 13:29 | Inpatient (IN) | payer OTHER ==
--- NOTE | 2017-10-30 14:01 | PDOC ---
Attending Attestation - HPI HPI: 10/30/17 14:57 The patient is a 72 year old female with a past medical history of HTN, DM, HLD , PAD, CHF, A-fib, defibrillator placement, ESRD (Dialysis on M,W,F- left chest tunnel catheter ), R ATK amputation, L foot amputation, and L hand 2nd-4th digit partial amputation (02/2017) who presents with left hand pain. Patient reports worsening left palmar and dorsal hand erythema, and pain for the past month. Recently started on Bactrim (Day 5) for left hand cellulits. Also reports one week of worsening left leg edema and pain. - Medical Decision Making 10/30/17 15:00 Documentation prepared by Lawrence Gonzalez, acting as medical pathologist for Ashley Ledbetter DO. <Lawrence Gonzalez - Last Filed: 10/30/17 14:57> - Resident Resident Name: Anibal Hendrickson - ED Attending Attestation I have performed the following: I have examined & evaluated the patient, The case was reviewed & discussed with the resident, I agree w/resident's findings & plan, Exceptions are as noted - Physicial Exam PE: 11/02/17 16:58 gen: aaox3, nad heart: +s1s2 reg Lungs: cta b/l abd: soft, nt/nd +nodules under heparin injection sites, obese ext: L hand partial amputations to L hand digits - digits 2,3,4 partial amputations with dressing in place L ankle amputation, R aka, edema to LLE neuro: no focal neuro deficits skin: l hand cellulitis on dorsal and palmar surface - Medical Decision Making 10/30/17 14:01 I, Dr. Ashley Ledbetter DO, attest that this document has been prepared under my direction and personally reviewed by me in its entirety. I further attest, that it accurately reflects all work, treatment, procedures and medical decision -making performed by me. 10/30/17 15:34 a/p: 72yo female with L hand cellulitis - on bactrim x 5 days L hand cellulitis, streaking up the dorsal and palmar surface of the L hand, amputated L digits with dressing in place concern for cellulitis that failed outpt abx pvd, will obtain dopplers of L leg with new swelling and L arm - arterial will check labs, ekg, cxr, cultures call placed to Dr. Mishra - MICHAEL to discuss ABX discussed with Dr. Swenson from Hand surgery who will see the patient in consult case discussed with Dr. Galarza who accepts pt to service 10/30/17 15:43 10/30/17 15:[address] Mishra who recommends vanc/zosyn for abx will see patient in consult <Ashley Ledbetter - Last Filed: 11/02/17 17:01>
--- NOTE | 2017-10-30 14:03 | PDOC ---
History of Present Illness - General Chief Complaint: Edema Stated Complaint: SWOLLEN HAND Time Seen by Provider: 10/30/17 13:32 - History of Present Illness Initial Comments: 10/30/17 14:03 72 yo F with h/o HTN, NIDDM ( on Insulin ) , HLD, PAD, CHF, A-fib, defibrillator placement, ESRD (Dialysis on M,W,F- left chest tunnel catheter ), R ATK amputation, L foot amputation, and L hand 2nd-4th digit amputation ( 2016) who presents with left hand pain. Patient reports worsening left palmar and dorsal hand erythema, and pain for the past month. Recently started on Bactrim (Day 5) for left hand cellulits. Also reports one day of worsening left leg edema and pain. Denies N/V, F/C, SOB, cough, CP, palpitations, wheezing, Urinary complaints, diarrhea, constipation, abdominal pain, lightheadedness, LOC , weakness. On Warfarin, Plavix, ASA. Denies h/o DVT/PE. Dr. Jessenia Galarza PMD. Vascular surgery Dr. Smith. Hand surgeon from [facility] [place]. Special Events Planner Dr. Nathan Rich. Past History - Past Medical History Allergies/Adverse Reactions: Allergies Allergy/AdvReac Type Severity Reaction Status Date / Time adhesive tape Allergy Severe SKIN TEAR Verified 10/30/17 13:46 amoxicillin trihydrate AdvReac Severe DIARRHEA Verified 10/30/17 13:46 [From Augmentin] potassium clavulanate AdvReac Severe DIARRHEA Verified 10/30/17 13:46 [From Augmentin] Home Medications: Ambulatory Orders Aspirin 81 mg PO DAILY 10/30/17 Atorvastatin Ca [Lipitor] 80 mg PO HS 10/30/17 Calcium Acetate [Phoslo -] 667 mg PO DAILY 10/30/17 Clonazepam 0.5 mg PO HS 10/30/17 Cyanocobalamin [Vitamin B12 -] 100 mcg PO DAILY 10/30/17 Docusate Sodium 100 mg PO DAILY 10/30/17 Glipizide 5 mg PO DAILY 10/30/17 Insulin (Levemir) [Levemir Vial] 20 unit SQ BID 10/30/17 Lactobacillus Acidophilus [Acidophilus] 1 each PO DAILY 10/30/17 Levothyroxine [Synthroid -] 125 mcg PO DAILY 10/30/17 Metoprolol Tartrate 25 mg PO DAILY 10/30/17 Nitroglycerin Sublingual [Nitrostat -] 0.4 mg SL ONCE 10/30/17 Oxycodone HCl 2.5 mg PO ASDIR 10/30/17 Pantoprazole Sodium [Protonix] 40 mg PO DAILY 10/30/17 Polyethylene Glycol 3350 [Clearlax] 17 gm PO DAILY 10/30/17 Sennosides [Senna] 8.6 mg PO HS 10/30/17 Anemia: Yes Asthma: No Cancer: No Cardiac Disorders: Yes (Atherosclerotic Heart Disease, Ischemia) CVA: No COPD: No CHF: Yes (6 YEARS AGO) Dementia: No Diabetes: Yes (Type II) Dialysis: Yes () GI Disorders: No Disorders: Yes (CRF;dialysis [facility] [phone]) HTN: Yes Hypercholesterolemia: Yes Liver Disease: No Seizures: No Thyroid Disease: Yes (Thyrotoxicosis) - Surgical History Abdominal Surgery: No Appendectomy: No Cardiac Surgery: Yes (STENTS X3) Cholecystectomy: No Lung Surgery: No Neurologic Surgery: No Orthopedic Surgery: Yes (R.Rotator Cuff, R.AKA. LEFT MID FOOT AMPUTATION) - Immunization History Immunization Up to Date: Yes - Suicide/Smoking/Psychosocial Hx Smoking Status: No Smoking History: Never smoked Have you smoked in the past 12 months: No Number of Cigarettes Smoked Daily: 0 Information on smoking cessation initiated: No Hx Alcohol Use: No Drug/Substance Use Hx: No Substance Use Type: None Hx Substance Use Treatment: No Review of Systems - Review of Systems Comments:: 10/30/17 14:02 GENERAL/CONSTITUTIONAL: No fever or chills. No weakness. HEAD, EYES, EARS, NOSE AND THROAT: No change in vision. No ear pain or discharge. No sore throat.- CARDIOVASCULAR: No chest pain or shortness of breath RESPIRATORY: No cough, wheezing, or hemoptysis. GASTROINTESTINAL: No nausea, vomiting, diarrhea or constipation. GENITOURINARY: No dysuria, frequency, or change in urination. MUSCULOSKELETAL: No joint or muscle swelling or pain. No neck or back pain. SKIN: + L hand swelling. + LLE swelling. NEUROLOGIC: No headache, vertigo, loss of consciousness, or change in strength/ sensation. ENDOCRINE: No increased thirst. No abnormal weight change HEMATOLOGIC/LYMPHATIC: No anemia, easy bleeding, or history of blood clots. ALLERGIC/IMMUNOLOGIC: No hives or skin allergy. *Physical Exam - Vital Signs Last Vital Signs Temp Pulse Resp BP Pulse Ox 97 F L 86 18 104/87 100 10/30/17 13:30 10/30/17 13:30 10/30/17 13:30 10/30/17 13:30 10/30/17 13:30 - Physical Exam Comments: 10/30/17 14:02 GENERAL: Awake, alert, and fully oriented, in no acute distress HEAD: No signs of trauma, normocephalic, atraumatic EYES: PERRLA, EOMI, sclera anicteric, conjunctiva clear ENT: Hearing grossly normal, nares patent, oropharynx clear without exudates. Moist mucosa NECK: Normal ROM, no JVD, or masses LUNGS: No distress, speaks full sentences, clear to auscultation bilaterally HEART: Regular rate and rhythm, normal S1 and S2, no murmurs, rubs or gallops, peripheral pulses normal and equal bilaterally. ABDOMEN: Soft, nontender, normoactive bowel sounds. No guarding, no rebound. No masses EXTREMITIES : Diminished radial pulses BL. LLE 2 + pitting edema. LLE amputation below ankle joint. RLE amputation BTK. Normal inspection, Normal range of motion, No clubbing or cyanosis. Left Hand: Left 2nd-4th digit amputation noted. 2nd-4th digit dressed, with 6 x 4 mm area of indistinct margins, erythema, warmth, expanding beyond wound on dorsal and palmar aspect of hand. TTP at area of erythema. Absent edema, induration, fluctuance, ulceration, or hyperpigmentation. Left hand warm, non cyanotic appearing. Normal range of motion at wrist joint and digits 1,2,4,5. Cap refill less than 3 sec. NEUROLOGICAL: Cranial nerves II through XII grossly intact. Normal speech, normal gait, no focal sensorimotor deficits SKIN: Warm, Dry, normal turgor, no rashes or lesions noted. ED Treatment Course - LABORATORY CBC & Chemistry Diagram: 10/30/17 15:43 10/30/17 Unknown Medical Decision Making - Medical Decision Making 10/30/17 14:52 72 yo F with h/o HTN, DM (on Insulin ), HLD, PAD, CHF, A-fib, defibrillator placement, ESRD (Dialysis on M,W,F- left chest tunnel catheter ), R ATK amputation, L foot amputation, and L hand 2nd-4th digit amputation ( 02/2017) who presents with worsening left palmar and dorsal hand erythema, and pain for the past month. Recently started on Bactrim (Day 5) for left hand cellulits. Also reports one week of worsening left leg edema and pain. Denies N/V, F/C, SOB, cough, CP, palpitations, wheezing, Urinary complaints, diarrhea, constipation, abdominal pain, lightheadedness, LOC, weakness. On Warfarin, Plavix, ASA. Denies h/o DVT/PE. Dr. Devan Galarza PMD. Vascular surgery Dr. Luis Carlos Avalos. Hand surgeon from [facility] [place]. Special Events Planner Dr. Nathan Rich. Physical exam with Left 2nd-4th digit amputation noted. 2nd-4th digit dressed with necrotic fingertips expected to fall off, and with 6 x 4 mm area of indistinct margins, erythema, warmth, expanding beyond wound on dorsal and palmar aspect of hand. TTP at area of erythema. + streaking. Absent edema, induration, fluctuance, lymphadenopathy, ulceration, or hyperpigmentation. Left hand warm, non cyanotic appearing. Normal range of motion at wrist joint and digits 1,2,4,5. Cap refill less than 3 sec. Will likely admit patient for failed cellulitis outpt. management. Will also consult ID given complicated pmh and recurrent cellulitic infections in setting of immunocopmroised status and severe PAD. Will evaluate for ED Course: CBC, CMP, PT/INR, Urine Cx, Blood Cx, UA CXR, EKG Oxycodone LUE ART U/S LLE U/S Will Speak to Dr. Amaro for inpt. cellulitis management. Dr. Pascual consulted. Pt. admitted to Dr. Jessenia Galarza. 10/30/17 17:26 EKG: a-fib with absent KIMBERLYN, STD, or TWI. Normal interval durations. *DC/Admit/Observation/Transfer - Referrals - Patient Instructions - Post Discharge Activity
[2017-10-30] MEDS ORDERED: VANCOMYCIN 1 GRAM (PRE-DOCKED) 1,000 MG/250 ML BAG IVPB ONE ×2 (15:56→16:33)
[2017-10-30] MEDS ORDERED: AZTREONAM 1 GM in DEXTROSE 5%-WATER - 50 ML IVPB ONE (15:57)
[2017-10-30 16:30] LABS: EOS % 1.1 % (0-4.5); HEMATOCRIT 37.4 % (32.4-45.2); HEMOGLOBIN 11.6 GM/dL (10.7-15.3); LYMPH % 11.3 % (8-40); MCHC 30.9 g/dl (32.0-36.0); MEAN CELL VOLUME 97.1 fl (80-96); MEAN PLT VOLUME 8.3 fl (7.5-11.1); MONO % 5.3 % (3.8-10.2); NEUT % 81.3 % (42.8-82.8); PLATELET COUNT 388 K/MM3 (134-434); RBC 3.85 M/mm3 (3.60-5.2); RDW 18.1 % (11.6-15.6); WHITE BLOOD COUNT 11.9 K/mm3 (4.0-10.0)
[2017-10-30] MEDS ORDERED: AZTREONAM 1 GRAM SYRINGE 1 GM/10 ML DISP.SYRIN IVPUSH ONE (17:15)
[2017-10-30 17:22] LABS: ALBUMIN 2.4 g/dl (3.4-5.0); ANION GAP 10 (8-16); BILIRUBIN,TOTAL 0.5 mg/dL (0.2-1.0); BLOOD UREA NITROGEN 61 mg/dL (7-18); CHLORIDE 97 mmol/L (98-107); CO2 28 mmol/L (21-32); CREATININE 5.4 mg/dL (0.55-1.02); GLUCOSE,RANDOM 133 mg/dL (74-106); POTASSIUM 4.8 mmol/L (3.5-5.1); SGOT/AST 31 U/L (15-37); SGPT/ALT 46 U/L (12-78); SODIUM 135 mmol/L (136-145)
[2017-10-30 17:23] LABS: ALK PHOS 179 U/L (45-117); TOT PROT 6.4 g/dl (6.4-8.2)
[2017-10-30] MEDS ORDERED: NITROGLYCERIN SUBLINGUAL 1/150 0.4 MG TAB SL PRN (17:27)
[2017-10-30] MEDS ORDERED: oxyCODONE HCL 5 MG TABLET PO PRN (17:27)
[2017-10-30] MEDS ORDERED: ACETAMINOPHEN 325 MG TABLET (FP) PO PRN (17:31)
[2017-10-30 17:54] LABS: INR 3.47 (0.82-1.09); PROTHROMBIN TIME (PATIENT) 39.2 SEC (9.98-11.88)
[2017-10-30] MEDS ORDERED: SENNOSIDES 8.6MG TABLET (FP) PO SCH (22:00)
[2017-10-30] MEDS ORDERED: PATIENT'S OWN MEDICATION (NON-FORMULARY) (Clonazepam [Clonazepam] 0.5 MG) PO SCH (22:00)
[2017-10-30] MEDS ORDERED: ATORVASTATIN CA 80 MG TABLET (FP) PO SCH (22:00)
[2017-10-30] MEDS ORDERED: clonazePAM 0.5 MG TABLET PO SCH (22:00)
[2017-10-30 22:15] LABS: MAGNESIUM 2.4 mg/dL (1.8-2.4)
[2017-10-30] MEDS ORDERED: INSULIN (NOVOLOG) ASPART 100 UNITS/ML 10ML VIAL ONE (22:55)
[2017-10-30] MEDS: INSULIN SLIDING SCALE (NOVOLOG) 1 VIAL SQ SCH (23:41)
[2017-10-30] MEDS: INSULIN DETEMIR 100 UNITS/ML MDV SQ SCH (23:42)
[2017-10-31] MEDS: INSULIN SLIDING SCALE (NOVOLOG) 1 VIAL SQ SCH ×4 (06:51→22:25)
[2017-10-31] MEDS: INSULIN DETEMIR 100 UNITS/ML MDV SQ SCH ×2 (06:54→22:20)
[2017-10-31] MEDS ORDERED: LEVOTHYROXINE NA 125 MCG TABLET (FP) PO SCH (07:00)
[2017-10-31 08:40] LABS: BASO % 1.1 % (0-2.0); EOS % 2.4 % (0-4.5); HEMATOCRIT 35.5 % (32.4-45.2); HEMOGLOBIN 10.9 GM/dL (10.7-15.3); LYMPH % 14.7 % (8-40); MCH 29.8 pg (25.7-33.7); MCHC 30.6 g/dl (32.0-36.0); MEAN CELL VOLUME 97.4 fl (80-96); MEAN PLT VOLUME 7.9 fl (7.5-11.1); MONO % 6.1 % (3.8-10.2); NEUT % 75.7 % (42.8-82.8); PLATELET COUNT 363 K/MM3 (134-434); RBC 3.65 M/mm3 (3.60-5.2); WHITE BLOOD COUNT 10.2 K/mm3 (4.0-10.0)
[2017-10-31 08:52] LABS: INR 3.61 (0.82-1.09); PROTHROMBIN TIME (PATIENT) 40.8 SEC (9.98-11.88)
[2017-10-31 09:08] LABS: ALBUMIN 2.2 g/dl (3.4-5.0); ANION GAP 12 (8-16); BLOOD UREA NITROGEN 66 mg/dL (7-18); CALCIUM 7.3 mg/dL (8.5-10.1); CHLORIDE 98 mmol/L (98-107); CO2 24 mmol/L (21-32); GLUCOSE,RANDOM 77 mg/dL (74-106); POTASSIUM 4.8 mmol/L (3.5-5.1); SODIUM 134 mmol/L (136-145)
[2017-10-31 09:19] LABS: ALK PHOS 165 U/L (45-117); BILIRUBIN,TOTAL 0.5 mg/dL (0.2-1.0); SGOT/AST 23 U/L (15-37); SGPT/ALT 36 U/L (12-78); TOT PROT 5.6 g/dl (6.4-8.2)
--- NOTE | 2017-10-31 09:41 | CONSULT ---
Consult Consult Specialty:: hand surgery Referred by:: jasvir lin Reason for Consultation:: left hand wound - History of Present Illness Chief Complaint: pain and swelling left middle finger amputation site History of Present Illness: 72 yo female PMH HTN, DM, HLD, PAD, CHF, A-fib, defibrillator placement,pvd, ESRD (Dialysis on M,W,F- left chest tunnel catheter ), R ATK amputation, L foot amputation, and L hand 2nd-4th digit partial amputation (02/2017) who presents with left hand pain. focal to the left middle finger. she reports worsening left palmar and dorsal hand erythema over the MCP joint worsening over 4 months. She has had 5/10 pain for the past month. Recently started on Bactrim (Day 5) for left hand cellulits. 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 No: Hematuria Infectious Disease: Yes: MRSA Musculoskeletal: Yes: Other (R rotator cuff repair) Endocrine: Yes: Diabetes Mellitus, Hypothyroidism Additional Medical History: Steal syndrome , PVD- s//p surgery. End stage renal disease (hemodialysis 3x per week). Congestive heart failure. Diabetes. Hypertension. Hyperlipidemia. Peripheral vascular occlusive disease. Hypothyroidism. Anemia. Gastroesophageal reflux disease - Past Surgical History Past Surgical History: Yes: Amputation (Rt AKA, left TMA), Hysterectomy ( thyroid surgery), Stent - Alcohol/Substance Use Hx Alcohol Use: No History of Substance Use: reports: None - Smoking History Smoking history: Never smoked Have you smoked in the past 12 months: No Aproximately how many cigarettes per day: 0 - Social History ADL: Independent Place of : [facility] History of Recent Travel: No Home Medications - Allergies Allergies/Adverse Reactions: Allergies Allergy/AdvReac Type Severity Reaction Status Date / Time adhesive tape Allergy Severe SKIN TEAR Verified 10/30/17 13:46 amoxicillin trihydrate AdvReac Severe DIARRHEA Verified 10/30/17 13:46 [From Augmentin] potassium clavulanate AdvReac Severe DIARRHEA Verified 10/30/17 13:46 [From Augmentin] - Home Medications Home Medications: Ambulatory Orders Aspirin 81 mg PO DAILY 10/30/17 Atorvastatin Ca [Lipitor] 80 mg PO HS 10/30/17 Calcium Acetate [Phoslo -] 667 mg PO DAILY 10/30/17 Cyanocobalamin [Vitamin B12 -] 100 mcg PO DAILY 10/30/17 Docusate Sodium 100 mg PO DAILY 10/30/17 Gabapentin [Neurontin -] 100 mg PO DAILY 10/30/17 Glipizide 5 mg PO DAILY 10/30/17 Insulin (Levemir) [Levemir Vial] 20 unit SQ BID 10/30/17 Lactobacillus Acidophilus [Acidophilus] 1 each PO DAILY 10/30/17 Levothyroxine [Synthroid -] 125 mcg PO DAILY 10/30/17 Melatonin 10 mg PO HS 10/30/17 Metoprolol Tartrate 12.5 mg PO ASDIR 10/30/17 Multivitamin [Daily Multiple Vitamin] 1 each PO DAILY 10/30/17 Nitroglycerin Sublingual [Nitrostat -] 0.4 mg SL ONCE 10/30/17 Oxycodone HCl 5 mg PO ASDIR 10/30/17 Pantoprazole Sodium [Protonix] 40 mg PO DAILY 10/30/17 Polyethylene Glycol 3350 [Clearlax] 17 gm PO DAILY 10/30/17 Sennosides [Senna] 8.6 mg PO HS 10/30/17 Review of Systems - Review of Systems Constitutional: denies: Chills, Fever Eyes: denies: Blurred Vision, Recent Change in Vision HENT: denies: Difficult Swallowing, Throat Pain Cardiovascular: denies: Chest Pain, Palpitations Respiratory: denies: Cough, SOB Gastrointestinal: denies: Abdominal Pain, Constipation, Diarrhea Integumentary: denies: Lesions, Pruritis Neurological: denies: Change in LOC Endocrine: denies: Unexplained Weight Gain, Unexplained Weight Loss Hematology/Lymphatic: reports: Easily Bruised, Excessive Bleeding Psychiatric: denies: Anxiety, Depression Physical Exam Vital Signs: Vital Signs Temperature 98.3 F 10/31/17 08:49 Pulse Rate 102 H 10/31/17 08:49 Respiratory Rate 20 10/31/17 08:49 Blood Pressure 119/90 10/31/17 08:49 O2 Sat by Pulse Oximetry (%) 92 L 10/30/17 21:00 Constitutional: Yes: No Distress, Calm Eyes: Yes: Conjunctiva Clear, EOM Intact HENT: Yes: Atraumatic, Normocephalic Neck: Yes: Supple, Trachea Midline Cardiovascular: Yes: Regular Rate and Rhythm, S1, S2 Respiratory: Yes: Regular, CTA Bilaterally Gastrointestinal: Yes: Normal Bowel Sounds, Soft. No: Tenderness ...Rectal Exam: Yes: Deferred Renal/: No: CVA Tenderness - Left, CVA Tenderness - Right Musculoskeletal: Yes: Joint Stiffness, Joint Swelling. No: Muscle Pain Extremities: Yes: Amputation (B/L lower extem healig well). No: Cool, Cyanosis Edema: Yes Peripheral Pulses WNL: No Integumentary: Yes: Bruising. No: Rash Wound/Incision: Yes: Draining, Reddened (left middle finger volar aspect flexor sheath), Unapproximated, Other (auto amputation of index, middle and ring fingers with exposed bone and dry gangrene up to PIP.) Neurological: Yes: Alert, Oriented Psychiatric: Yes: Alert, Oriented Labs: CBC, BMP 10/31/17 07:00 10/31/17 07:00 Imaging - Results X-ray: Pending (new pending, left ring finger distal pahlanx missing, part middle phalanx exposed no gas in the tissues), Report Reviewed, Image Reviewed Other: Pending Problem List - Problems (1) Flexor tenosynovitis of finger Assessment/Plan: 72 yo female MMP including Afib on coumadin, DM type 2 and ESRD, Wet gangrene and flexor tenosynovitis left middle finger, dry gangrene of index and ring fingers, poor distal circulation on Duplex with PVR left arm. NPO and IVF hydration IV antibiotics broad spectrum elevation of left arm above heart adequate analgesia Xray 2 views left hand PVR's and CTA left arm to eval potential for healing - there is no additional risk of nephropathy given current ESRD Correct coagulopathy OR for emergency incision and drainage left hand abscess, Revision amputations of index, middle and ring fingers - Discussed with patient and family risks, benefits and alternatives of proposed procedure, including but not limited to bleeding, infection, ascending infectios, damage to adjacent structures, sepsis , need for further procedures, ; alternatives include antibiotics, delayed or no surgery, include failure of nonoperative therapy, sepsis, recurrence, . Patient desires to proceed with operation - will take to OR for above. Informed consent signed for same. Thank you for the opportunity to participate in the care of this patient. Code(s): M65.9 - SYNOVITIS AND TENOSYNOVITIS, UNSPECIFIED (2) Cellulitis and abscess of hand Code(s): L03.119 - CELLULITIS OF UNSPECIFIED PART OF LIMB; L02.519 - CUTANEOUS ABSCESS OF UNSPECIFIED HAND (3) Anemia in ESRD (end-stage renal disease) Code(s): N18.6 - END STAGE RENAL DISEASE; D63.1 - ANEMIA IN CHRONIC KIDNEY DISEASE (4) CAD (coronary artery disease) Code(s): I25.10 - ATHSCL HEART DISEASE OF [place] CORONARY ARTERY W/O ANG PCTRS Qualifiers: Coronary Disease-Associated Artery/Lesion type: [place] artery [place] vs. transplanted heart: [place] heart Associated angina: without angina Qualified Code(s): I25.10 - Atherosclerotic heart disease of [place] coronary artery without angina pectoris (5) DM type 2 causing complication Code(s): E11.8 - TYPE 2 DIABETES MELLITUS WITH UNSPECIFIED COMPLICATIONS (6) ESRD on hemodialysis Code(s): N18.6 - END STAGE RENAL DISEASE; Z99.2 - DEPENDENCE ON RENAL DIALYSIS (7) HTN (hypertension) Code(s): I10 - ESSENTIAL (PRIMARY) HYPERTENSION Qualifiers: Hypertension type: essential hypertension Qualified Code(s): I10 - Essential (primary) hypertension (8) Hypercholesterolemia Code(s): E78.00 - PURE HYPERCHOLESTEROLEMIA, UNSPECIFIED
--- NOTE | 2017-10-31 09:54 | HP ---
Admitting History and Physical - Primary Care Physician PCP: Jessenia Galarza - Admission History of Present Illness: The patient is a 72 year old female with extensive past medical history of HTN , DM, HLD, PAD, CHF, A-fib, defibrillator placement,pvd, ESRD (Dialysis on M,W, F- left chest tunnel catheter ), R ATK amputation, L foot amputation, and L hand 2nd-4th digit partial amputation (02/2017) who presents with left hand pain. Patient reports worsening left palmar and dorsal hand erythema, and pain for the past month. Recently started on Bactrim (Day 5) for left hand cellulits. pt given abx admitted to floor case was discussed with er physician last night Orders were written Pt seen / examined today feels better denies cp/sob/abd pain hand pain - better denies fever/ chills/ denies sob. 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 No: Hematuria Heme/Onc: Yes: Anemia Infectious Disease: Yes: MRSA Musculoskeletal: Yes: Other (R rotator cuff repair) Endocrine: Yes: Diabetes Mellitus, Hypothyroidism - Past Surgical History Past Surgical History: Yes: Amputation (Rt AKA, left TMA), Hysterectomy ( thyroid surgery), Stent - Smoking History Smoking history: Never smoked Have you smoked in the past 12 months: No Aproximately how many cigarettes per day: 0 - Alcohol/Substance Use Hx Alcohol Use: No History of Substance Use: reports: None - Social History ADL: Independent History of Recent Travel: No Home Medications - Allergies Allergies/Adverse Reactions: Allergies Allergy/AdvReac Type Severity Reaction Status Date / Time adhesive tape Allergy Severe SKIN TEAR Verified 10/30/17 13:46 amoxicillin trihydrate AdvReac Severe DIARRHEA Verified 10/30/17 13:46 [From Augmentin] potassium clavulanate AdvReac Severe DIARRHEA Verified 10/30/17 13:46 [From Augmentin] - Home Medications Home Medications: Ambulatory Orders Atorvastatin Ca [Lipitor] 80 mg PO HS 10/30/17 Calcium Acetate [Phoslo -] 667 mg PO DAILY 10/30/17 Cyanocobalamin [Vitamin B12 -] 100 mcg PO DAILY 10/30/17 Gabapentin [Neurontin -] 100 mg PO DAILY 10/30/17 Insulin (Levemir) [Levemir Vial] 20 unit SQ BID 10/30/17 Lactobacillus Acidophilus [Acidophilus] 1 each PO DAILY 10/30/17 Levothyroxine [Synthroid -] 125 mcg PO DAILY 10/30/17 Multivitamin [Daily Multiple Vitamin] 1 each PO DAILY 10/30/17 Nitroglycerin Sublingual [Nitrostat -] 0.4 mg SL ONCE 10/30/17 Pantoprazole Sodium [Protonix] 40 mg PO DAILY 10/30/17 Polyethylene Glycol 3350 [Clearlax] 17 gm PO DAILY 10/30/17 RX: Aspirin 81 mg PO DAILY 10/30/17 RX: Docusate Sodium 100 mg PO DAILY 10/30/17 RX: Glipizide 5 mg PO DAILY 10/30/17 RX: Melatonin 10 mg PO HS 10/30/17 RX: Metoprolol Tartrate 12.5 mg PO ASDIR 10/30/17 RX: Oxycodone HCl 5 mg PO ASDIR 10/30/17 Sennosides [Senna] 8.6 mg PO HS 10/30/17 Review of Systems Findings/Remarks: see [facility] Physical Examination Vital Signs: Vital Signs Temperature 98.3 F 10/31/17 08:49 Pulse Rate 102 H 10/31/17 08:49 Respiratory Rate 20 10/31/17 08:49 Blood Pressure 119/90 10/31/17 08:49 O2 Sat by Pulse Oximetry (%) 92 L 10/30/17 21:00 Constitutional: Yes: No Distress, Calm Eyes: Yes: Conjunctiva Clear Neck: Yes: Supple Cardiovascular: Yes: Regular Rate and Rhythm Respiratory: Yes: Diminished (at bases) Gastrointestinal: Yes: Soft Musculoskeletal: Yes: Other Extremities: Yes: Amputation (s/p right-- AKA), Other Edema: No Wound/Incision: Yes: Other (left hand- 2/3/4 fingers - dressing +) Neurological: Yes: Alert Psychiatric: Yes: Alert Labs: CBC, BMP 10/31/17 07:00 10/31/17 07:00 Problem List - Problems (1) Cellulitis and abscess of hand Code(s): L03.119 - CELLULITIS OF UNSPECIFIED PART OF LIMB; L02.519 - CUTANEOUS ABSCESS OF UNSPECIFIED HAND (2) Anemia in ESRD (end-stage renal disease) Code(s): N18.6 - END STAGE RENAL DISEASE; D63.1 - ANEMIA IN CHRONIC KIDNEY DISEASE (3) Atrial fibrillation Code(s): I48.91 - UNSPECIFIED ATRIAL FIBRILLATION Qualifiers: Atrial fibrillation type: unspecified Qualified Code(s): I48.91 - Unspecified atrial fibrillation (4) CAD (coronary artery disease) Code(s): I25.10 - ATHSCL HEART DISEASE OF [place] CORONARY ARTERY W/O ANG PCTRS Qualifiers: Coronary Disease-Associated Artery/Lesion type: [place] artery [place] vs. transplanted heart: [place] heart Associated angina: without angina Qualified Code(s): I25.10 - Atherosclerotic heart disease of [place] coronary artery without angina pectoris (5) ESRD (end stage renal disease) on dialysis Code(s): N18.6 - END STAGE RENAL DISEASE; Z99.2 - DEPENDENCE ON RENAL DIALYSIS (6) HTN (hypertension) Code(s): I10 - ESSENTIAL (PRIMARY) HYPERTENSION Qualifiers: Hypertension type: essential hypertension Qualified Code(s): I10 - Essential (primary) hypertension (7) History of percutaneous coronary intervention Code(s): Z98.890 - OTHER SPECIFIED POSTPROCEDURAL STATES (8) Status post transmetatarsal amputation of left foot Code(s): Z89.432 - ACQUIRED ABSENCE OF LEFT FOOT (9) Unilateral AKA Code(s): Z89.619 - ACQUIRED ABSENCE OF UNSPECIFIED LEG ABOVE KNEE Assessment/Plan Abx continue other meds monitor bgm coumadin per inr- on hold hand surgeon consult dialysis per renal will follow
[2017-10-31] MEDS ORDERED: ASPIRIN 81 MG CHEWABLE TABLETS PO SCH (10:00)
[2017-10-31] MEDS ORDERED: CALCIUM ACETATE 667 MG CAPSULE (FP) PO SCH (10:00)
[2017-10-31] MEDS ORDERED: METOPROLOL TARTRATE 25 MG TABLET (FP) PO SCH (10:00)
[2017-10-31] MEDS ORDERED: CYANOCOBALAMIN (VITAMIN B-12) 100 MCG TABLET PO SCH (10:00)
[2017-10-31] MEDS ORDERED: POLYETHYLENE GLYCOL 3350 119 GM BTL PO SCH (10:00)
[2017-10-31] MEDS ORDERED: DOCUSATE SODIUM 100 MG CAPSULE (FP) PO SCH (10:00)
[2017-10-31] MEDS ORDERED: LACTOBACILLUS ACIDOPHILUS 1 EACH TAB (FP) PO SCH (10:00)
[2017-10-31] MEDS ORDERED: PANTOPRAZOLE 40 MG TABLET (FP) PO SCH (10:00)
[2017-10-31] MEDS ORDERED: PT OWN MED DRAWER 7, Y5N ONE (10:13)
--- NOTE | 2017-10-31 11:11 | CON.NEP ---
Consult Consult Specialty:: Nephrology Referred by:: Geovanni Reason for Consultation:: ESRD on HD - History of Present Illness Chief Complaint: Hand pain History of Present Illness: This is a 72 year old woman with PMhx of ESRD on HD, Hypertension, DM on Insulin , PVD who presented with worsening hand pain. Pt has been treated as a outpatient for suspected infection of the hand. Pt last had dialysis on Tuesday. Denies any sob, chest pain, abd pain, N/V/D. No fever or chills. Pt is being evaluated for hand surgery. 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 No: Hematuria Infectious Disease: Yes: MRSA Musculoskeletal: Yes: Other (R rotator cuff repair) Endocrine: Yes: Diabetes Mellitus, Hypothyroidism Additional Medical History: Steal syndrome , PVD- s//p surgery. End stage renal disease (hemodialysis 3x per week). Congestive heart failure. Diabetes. Hypertension. Hyperlipidemia. Peripheral vascular occlusive disease. Hypothyroidism. Anemia. Gastroesophageal reflux disease - Past Surgical History Past Surgical History: Yes: Amputation (Rt AKA, left TMA), Hysterectomy ( thyroid surgery), Stent - Alcohol/Substance Use Hx Alcohol Use: No History of Substance Use: reports: None - Smoking History Smoking history: Never smoked Have you smoked in the past 12 months: No Aproximately how many cigarettes per day: 0 - Social History ADL: Independent History of Recent Travel: No Home Medications - Allergies Allergies/Adverse Reactions: Allergies Allergy/AdvReac Type Severity Reaction Status Date / Time adhesive tape Allergy Severe SKIN TEAR Verified 10/30/17 13:46 amoxicillin trihydrate AdvReac Severe DIARRHEA Verified 10/30/17 13:46 [From Augmentin] potassium clavulanate AdvReac Severe DIARRHEA Verified 10/30/17 13:46 [From Augmentin] - Home Medications Home Medications: Ambulatory Orders Aspirin 81 mg PO DAILY 10/30/17 Atorvastatin Ca [Lipitor] 80 mg PO HS 10/30/17 Calcium Acetate [Phoslo -] 667 mg PO DAILY 10/30/17 Cyanocobalamin [Vitamin B12 -] 100 mcg PO DAILY 10/30/17 Docusate Sodium 100 mg PO DAILY 10/30/17 Gabapentin [Neurontin -] 100 mg PO DAILY 10/30/17 Glipizide 5 mg PO DAILY 10/30/17 Insulin (Levemir) [Levemir Vial] 20 unit SQ BID 10/30/17 Lactobacillus Acidophilus [Acidophilus] 1 each PO DAILY 10/30/17 Levothyroxine [Synthroid -] 125 mcg PO DAILY 10/30/17 Melatonin 10 mg PO HS 10/30/17 Metoprolol Tartrate 12.5 mg PO ASDIR 10/30/17 Multivitamin [Daily Multiple Vitamin] 1 each PO DAILY 10/30/17 Nitroglycerin Sublingual [Nitrostat -] 0.4 mg SL ONCE 10/30/17 Oxycodone HCl 5 mg PO ASDIR 10/30/17 Pantoprazole Sodium [Protonix] 40 mg PO DAILY 10/30/17 Polyethylene Glycol 3350 [Clearlax] 17 gm PO DAILY 10/30/17 Sennosides [Senna] 8.6 mg PO HS 10/30/17 Nephrology Consult - Height Height: 5 ft 7 in - Weight Weight: 87.566 kg - BMI Body Mass Index (BMI): 30.2 - Lab Results CBC,BMP: CBC, BMP 10/31/17 07:00 10/31/17 07:00 Anion Gap: Anion Gap Anion Gap 12 (8-16) 10/31/17 07:00 - Physical Examination Vital Signs: Vital Signs Temperature 98.3 F 10/31/17 08:49 Pulse Rate 102 H 10/31/17 08:49 Respiratory Rate 20 10/31/17 08:49 Blood Pressure 119/90 10/31/17 08:49 O2 Sat by Pulse Oximetry (%) 92 L 10/30/17 21:00 Assessment/Plan 72 year old woman with PMhx of ESRD on HD, Hypertension, DM on Insulin, PVD who presented with worsening hand pain. #ESRD on HD for dialysis today following CT of the Hand will continue HD 3X weekly as inpatient renal diet #Hand ischemia/Pain imaging as per hand surgery pain control Full consult to follow Wan Cruz DO
[2017-10-31 11:12] VITALS: BMI 30.2
[2017-10-31] MEDS ORDERED: DEXTROSE 5%-0.45% SALINE 1,000 ML IV SCH (12:45)
--- NOTE | 2017-10-31 12:50 | EKG ---
Test Reason : Blood Pressure : / mmHG Vent. Rate : 075 BPM Atrial Rate : 074 BPM P-R Int : 000 ms QRS Dur : 090 ms QT Int : 358 ms P-R-T Axes : 000 095 -26 degrees QTc Int : 399 ms ATRIAL FIBRILLATION LOW VOLTAGE QRS CANNOT RULE OUT ANTERIOR INFARCT (CITED ON OR BEFORE 02-SEP-2017) ABNORMAL ECG WHEN COMPARED WITH ECG OF 02-SEP-2017 09:07, VENT. RATE HAS DECREASED PREMATURE VENTRICULAR COMPLEXES ARE NO LONGER PRESENT Confirmed by AKASH VIZCAINO MD ([id number]) on 10/31/2017 12:49:43 PM Referred By: Confirmed By:AKASH VIZCAINO MD
--- NOTE | 2017-10-31 12:58 | CON.ID ---
Consult Consult Specialty:: infectious disease Referred by:: jasvir Reason for Consultation:: hand infection - History of Present Illness Chief Complaint: worsening hand pain History of Present Illness: 72 year old female with history of esrd/hd Right AKA, Left TMA admitted with worsening pain and swelling of the 3rd digit of the left hand over the last several days. She was started on Bactrim at the [facility] for last 5 days she has a history of partial amputation of the left 2nd to 4th digits 02/2017 now notes erythema and swelling of the middle digit extending to the palm of the hand no fevers currently residing at the [facility] ampicillin allergy is vomiting- tolerates cephalosporins - History Source History Provided By: Patient, Medical Record Limitations to Obtaining History: No Limitations - Past Medical History Cardio/Vascular: Yes: AFIB, CAD, CHF, HTN, Hyperlipdemia, Other (coronary stents x 3) Pulmonary: Yes: COPD Renal/: Yes: Renal Failure, Hemodialysis. No: Hematuria Infectious Disease: Yes: MRSA, Other (chronic breast ulcer- now healed) Musculoskeletal: Yes: Other (R rotator cuff repair) Endocrine: Yes: Diabetes Mellitus, Hypothyroidism Additional Medical History: Steal syndrome , PVD- s//p surgery. End stage renal disease (hemodialysis 3x per week). Congestive heart failure. Diabetes. Hypertension. Hyperlipidemia. Peripheral vascular occlusive disease. Hypothyroidism. Anemia. Gastroesophageal reflux disease - Past Surgical History Past Surgical History: Yes: Amputation (Rt AKA, left TMA), Hysterectomy ( thyroid surgery), Permanent Pacemaker, Stent Additional Surgical History: failed hero graft - Alcohol/Substance Use Hx Alcohol Use: No History of Substance Use: reports: None - Smoking History Smoking history: Never smoked Have you smoked in the past 12 months: No Aproximately how many cigarettes per day: 0 - Social History ADL: Independent Place of : [facility] History of Recent Travel: No Home Medications - Allergies Allergies/Adverse Reactions: Allergies Allergy/AdvReac Type Severity Reaction Status Date / Time adhesive tape Allergy Severe SKIN TEAR Verified 10/30/17 13:46 amoxicillin trihydrate AdvReac Severe DIARRHEA Verified 10/30/17 13:46 [From Augmentin] potassium clavulanate AdvReac Severe DIARRHEA Verified 10/30/17 13:46 [From Augmentin] - Home Medications Home Medications: Ambulatory Orders Aspirin 81 mg PO DAILY 10/30/17 Atorvastatin Ca [Lipitor] 80 mg PO HS 10/30/17 Calcium Acetate [Phoslo -] 667 mg PO DAILY 10/30/17 Cyanocobalamin [Vitamin B12 -] 100 mcg PO DAILY 10/30/17 Docusate Sodium 100 mg PO DAILY 10/30/17 Gabapentin [Neurontin -] 100 mg PO DAILY 10/30/17 Glipizide 5 mg PO DAILY 10/30/17 Insulin (Levemir) [Levemir Vial] 20 unit SQ BID 10/30/17 Lactobacillus Acidophilus [Acidophilus] 1 each PO DAILY 10/30/17 Levothyroxine [Synthroid -] 125 mcg PO DAILY 10/30/17 Melatonin 10 mg PO HS 10/30/17 Metoprolol Tartrate 12.5 mg PO ASDIR 10/30/17 Multivitamin [Daily Multiple Vitamin] 1 each PO DAILY 10/30/17 Nitroglycerin Sublingual [Nitrostat -] 0.4 mg SL ONCE 10/30/17 Oxycodone HCl 5 mg PO ASDIR 10/30/17 Pantoprazole Sodium [Protonix] 40 mg PO DAILY 10/30/17 Polyethylene Glycol 3350 [Clearlax] 17 gm PO DAILY 10/30/17 Sennosides [Senna] 8.6 mg PO HS 10/30/17 Family Disease History - Family Disease History Family History: Denies Review of Systems - Review of Systems Constitutional: reports: No Symptoms Eyes: reports: No Symptoms HENT: reports: No Symptoms Neck: reports: No Symptoms Cardiovascular: reports: No Symptoms. denies: Chest Pain Respiratory: reports: No Symptoms. denies: Cough, SOB Physical Exam Vital Signs: Vital Signs Temperature 98.3 F 10/31/17 08:49 Pulse Rate 102 H 10/31/17 08:49 Respiratory Rate 20 10/31/17 08:49 Blood Pressure 119/90 10/31/17 08:49 O2 Sat by Pulse Oximetry (%) 92 L 10/30/17 21:00 Constitutional: Yes: Well Nourished, Anxious Eyes: Yes: Conjunctiva Clear HENT: Yes: Atraumatic, Normocephalic Neck: Yes: Supple Cardiovascular: Yes: Regular Rate and Rhythm Respiratory: Yes: Regular, CTA Bilaterally Gastrointestinal: Yes: Normal Bowel Sounds, Soft Extremities: Yes: Amputation (right aka well healed, left tma well healed), Other (left hand with dry gangrene of the 2 to 4 fingertips, erythema of the 3rd finger which is swollen with erythema and pain extending to the mid palm of the left hand) Psychiatric: Yes: Alert, Oriented Labs: CBC, BMP 10/31/17 07:00 10/31/17 07:00 blood cultures pending Imaging - Results Chest X-ray: Report Reviewed X-ray: Report Reviewed Problem List - Problems (1) Flexor tenosynovitis of finger Code(s): M65.9 - SYNOVITIS AND TENOSYNOVITIS, UNSPECIFIED (2) Cellulitis of left hand Code(s): L03.114 - CELLULITIS OF LEFT UPPER LIMB (3) Diabetes Code(s): E11.9 - TYPE 2 DIABETES MELLITUS WITHOUT COMPLICATIONS Qualifiers: Diabetes mellitus type: type 1 Diabetes mellitus complication status: with circulatory complication Diabetes mellitus complication detail: with other circulatory complications Qualified Code(s): E10.59 - Type 1 diabetes mellitus with other circulatory complications (4) ESRD on hemodialysis Code(s): N18.6 - END STAGE RENAL DISEASE; Z99.2 - DEPENDENCE ON RENAL DIALYSIS Assessment/Plan hand infection being evaluated by hand surgery for possible surgery remote history of mrsa/pseudomonas (2014) received vancomycin and azacta m in ED would continue vancomycin by levels add cefepime/flagyl for Gram neg and anaerobic coverage
[2017-10-31] MEDS ORDERED: CEFEPIME HCL 1 GM VIAL (RESTRICTED TO ID) IVPB SCH (13:30)
[2017-10-31] MEDS ORDERED: CEFEPIME HCL/D5W 1 GM/50 ML BAG IVPB SCH (13:45)
[2017-10-31] MEDS ORDERED: BUPIVACAINE HCL/PF 0.5% (5MG/ML) 10 ML VIAL ONE (14:00)
[2017-10-31] MEDS ORDERED: MIDAZOLAM HCL 2 MG/2 ML SINGLE DOSE VIAL ONE (14:08)
[2017-10-31] MEDS ORDERED: DEXAMETHASONE SOD PHOSPHATE 4 MG/1 ML VIAL ONE (14:39)
[2017-10-31] MEDS ORDERED: BUPIVACAINE HCL/PF (5 MG/ML) 30 ML VIAL IJ ONE (14:43)
[2017-10-31] MEDS ORDERED: ONDANSETRON 4 MG/2 ML VIAL IVPUSH PRN (15:42)
--- NOTE | 2017-10-31 15:52 | OP ---
Operative Note - Note: Operative Date: 10/31/17 Pre-Operative Diagnosis: left middle finger wet gangrene to PIP joint and flexor tenosynovitits, left index and ring fingers dry gangrene to PIP joint Operation: Incisnion and Draainage of left middle finger flexor tenosynovitis. Revision amputation of left middle finger to MCP joint. Revision amputation of left index and ring fingers to PIP joint Findings: left middle finger flexor tendon pus, dry gangrene changes to middle phalanx index middle and ring fingers Implants: none Post-Operative Diagnosis: Same as Pre-op Surgeon: Freddie Swenson Anesthesiologist/BATTERY TESTER AND REPAIRER: Jo Alford Anesthesia: General, Local Specimens Removed: gangerne of index middle and ring fingers Estimated Blood Loss (mls): 15 Instrument used (Debridements only): scissor, knife, roungeur Fluid Volume Replaced (mls): 400 Operative Report Dictated: Yes
[2017-10-31] MEDS ORDERED: NITROGLYCERIN SUBLINGUAL 1/150 0.4 MG TAB SL PRN (16:05)
[2017-10-31] MEDS ORDERED: INSULIN (NOVOLOG) ASPART 100 UNITS/ML 10ML VIAL ONE (21:30)
[2017-10-31] MEDS: SENNOSIDES 8.6MG TABLET (FP) PO SCH (22:22)
[2017-10-31] MEDS: oxyCODONE HCL 5 MG TABLET PO PRN (22:22)
[2017-10-31] MEDS: clonazePAM 0.5 MG TABLET PO SCH (22:22)
[2017-10-31] MEDS: ATORVASTATIN CA 80 MG TABLET (FP) PO SCH (22:22)
--- NOTE | 2017-10-31 22:53 | OP ---
DATE OF OPERATION: 10/31/2017 PREOPERATIVE DIAGNOSES: Left middle finger wet gangrene to the metacarpophalangeal joint and associated flexor tenosynovitis of the left middle finger. Left index and ring fingers dry gangrene to the proximal interphalangeal joint. POSTOPERATIVE DIAGNOSES: Left middle finger wet gangrene to the metacarpophalangeal joint and associated flexor tenosynovitis of the left middle finger. Left index and ring fingers dry gangrene to the proximal interphalangeal joint. PROCEDURE: Incision and drainage of left middle finger flexor tenosynovitis, revision amputation of left middle finger to the metacarpophalangeal joint, revision amputation of left index and ring finger to the proximal interphalangeal joint. ATTENDING SURGEON: Freddie Swenson MD ANESTHESIA: Jo Alford MD ANESTHESIA TYPE: General with local. Local consisted of 0.5% Marcaine. A total of 20 mL given in a distal block fashion. ESTIMATED BLOOD LOSS: 15 mL INSTRUMENTS FOR DEBRIDEMENT: Scissors, knife, a rongeur. INTRAVENOUS FLUID: 400 mL crystalloid. IMPLANTS: None. INDICATIONS: Patient is a 72-year-old female with multiple medical problems including diabetes, end-stage renal disease, who presents after multiple procedures and a graft in the left upper arm with distal ischemic changes and dry gangrene affecting the left index, middle, and ring fingers. The middle finger was noted to have infectious change including flexor tenosynovitis a few days earlier. She was treated with intravenous antibiotics and had 3 KNAVEL signs on physical examination, and she was informed that she would require incision and drainage of the flexor tenosynovitis. In addition, we discussed revision amputation after vascular studies were performed revealing that there was potential for healing. She was counseled regarding risks, benefits, and alternatives to surgical procedure proposed, signed informed consent, and was taken for the procedure. DESCRIPTION OF PROCEDURE: Patient was brought to the operating room, placed in supine position on the operating table with the left arm extended at 90 degrees perpendicular to the body's axis. The left hand was prepped and draped into a standard surgical field. At which point, we proceeded with a formal timeout. One lower extremity had a Venodyne placed while the other had an amputation. Patient was induced with general anesthesia. She had an LMA placed. We proceeded first with exsanguination of the left arm and inflation of the tourniquet to 250 mmHg to occlude the blood flow to the left arm, at the upper arm. Surgical incision was scribed on the dorsum of the left middle finger over the MCP joint to facilitate amputation through the MCP joint of the left middle finger. This was incised with a 15-blade scalpel, deepened and widened through the subcutaneous tissue. Dissection was carried around, first exposing the collateral ligaments of the MCP joint and elevating the proximal phalanx out of the surgical field, distracting it to allow for evaluation of the flexor sheath. When the flexor sheath was encountered, it was entered, and there was a large gush of pus. The pus was sent for culture and sensitivity. The flexor tendon was then debrided along with the volar skin, controlling the neurovascular bundles and the digital arteries on both aspects, as well as the digital nerve, controlling them with Bovie cautery. They were cauterized and then transected. The dissection was carried around to the volar skin. The flexor digitorum profundus tendon was excised at maximum length into the palm. Care was then taken to irrigate the flexor sheath itself of the remaining purulent material. The middle finger including the proximal phalanx, flexor digitorum profundus tendon, and associated soft tissue and gangrene of the middle phalanx was sent for pathologic diagnosis. We proceeded then with scribing fish[place] incisions at the index and ring fingers at the level of the proximal interphalangeal joint. It was done just distal to the joint to facilitate adequate healing in this area. [place] incisions were opened and carried the dissection down through the extensor mechanism, through and through the collateral ligaments of the joint unto the volar plate. When the flexor tendon was identified in each of the index and ring fingers, they were identified, and then, a 4-0 Vicryl was used to tie the flexor to the extensor retinaculum. In the case of the index and ring fingers, the condyles were debrided to facilitate a smooth closure with a rongeur. The flexor tendons once tacked to flexor extensor over the site , they were irrigated. The skin was approximated using mattress sutures of 4-0 nylon circumferentially around the tip of the amputated site. This closed the index and the ring finger in similar fashion. The site was then irrigated. Pressure was held, and the tourniquet was relieved to identify any points that would require hemostasis in the ring finger. The flexor tendon itself was then tacked loosely to the extensor retinaculum at the site, covering the head of the 3rd metacarpal. It was cut to length. At which point, the site was again copiously irrigated. The skin along the dorsum was approximated with a horizontal mattress of 4-0 nylon to approximate the skin edges, leaving the cut end of the incision open for additional packing. Iodoform 1/2-inch was used to pack the site. In addition, a Surgicel packing was used for hemostasis at the site. Each of the amputated fingers, the index and ring, were covered with Xeroform. Xeroform was also used to cover the MCP amputation site in the palm. It was covered with sterile gauze and wrapped with a Kerlix and then covered with a Coban, leaving the thumb and small fingers free. The dressing was applied and tourniquet relieved. Final counts were correct. The tourniquet time was total 40 minutes. The patient was extubated in the operating room, returned to Recovery in stable condition. She was stable throughout the procedure. MD MELBA Mclain/[id number] MTDYahaira
[2017-11-01] MEDS: LEVOTHYROXINE NA 125 MCG TABLET (FP) PO SCH (06:26)
[2017-11-01] MEDS: INSULIN SLIDING SCALE (NOVOLOG) 1 VIAL SQ SCH ×3 (06:27→17:15)
[2017-11-01] MEDS: INSULIN DETEMIR 100 UNITS/ML MDV SQ SCH ×2 (06:27→21:59)
[2017-11-01] MEDS ORDERED: INSULIN (NOVOLOG) ASPART 100 UNITS/ML 10ML VIAL ONE ×2 (06:50→21:32)
[2017-11-01] MEDS: oxyCODONE HCL 5 MG TABLET PO PRN ×3 (07:46→22:00)
[2017-11-01 08:11] LABS: INR 3.46 (0.82-1.09); PROTHROMBIN TIME (PATIENT) 39.1 SEC (9.98-11.88)
--- NOTE | 2017-11-01 09:00 | PN ---
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 found to have flexor tenosynovitis and a combination of wet and dry gangrene. Report pain was adequately controlled overnight. - Current Medication List Current Medications: Active Medications Acetaminophen (Tylenol -) 650 mg PO Q4H PRN PRN Reason: BACK PAIN Aspirin (Asa -) 81 mg PO DAILY [facility] Atorvastatin Calcium (Lipitor -) 80 mg PO HS [facility] Last Admin: 10/31/17 22:22 Dose: 80 mg Calcium Acetate (Phoslo -) 667 mg PO DAILY [facility] Clonazepam (Klonopin -) 0.5 mg PO HS [facility] Last Admin: 10/31/17 22:22 Dose: 0.5 mg Cyanocobalamin (Vitamin B12 -) 100 mcg PO DAILY [facility] Docusate Sodium (Colace -) 100 mg PO DAILY [facility] Cefepime HCl (Maxipime 1 Gm Premix Ivpb) 1 gm in 50 mls @ 100 mls/hr IVPB DAILY [facility] Metronidazole (Flagyl 500mg Premixed Ivpb -) 500 mg in 100 mls @ 100 mls/hr IVPB Q8H-IV [facility] Last Admin: 11/01/17 01:21 Dose: 100 mls/hr Insulin Aspart (Novolog Vial Sliding Scale -) 1 vial SQ ACHS [facility] PRN Reason: Protocol Last Admin: 11/01/17 06:27 Dose: Not Given Insulin Detemir (Levemir Vial) 20 units SQ BID@0700,2200 [facility] Last Admin: 11/01/17 06:27 Dose: 20 units Lactobacillus Acidophilus (Bacid -) 1 tab PO DAILY [facility] Levothyroxine Sodium (Synthroid -) 125 mcg PO DAILY@0700 [facility] Last Admin: 11/01/17 06:26 Dose: 125 mcg Metoprolol Tartrate (Lopressor -) 12.5 mg PO DAILY [facility] Nitroglycerin (Nitrostat -) 0.4 mg SL DAILY PRN PRN Reason: FOR CHEST PAIN Oxycodone HCl (Roxicodone -) 2.5 mg PO Q6H PRN PRN Reason: PAIN LEVEL 6-10 Last Admin: 11/01/17 07:46 Dose: 2.5 mg Pantoprazole Sodium (Protonix -) 40 mg PO DAILY [facility] Polyethylene Glycol (Miralax (For Daily Use) -) 17 gm PO DAILY [facility] Senna (Senna -) 1 tab PO HS [facility] Last Admin: 10/31/17 22:22 Dose: 1 tab - Objective Vital Signs: Vital Signs Temperature 99.7 F H 11/01/17 02:00 Pulse Rate 79 11/01/17 02:00 Respiratory Rate 18 11/01/17 02:00 Blood Pressure 118/72 11/01/17 02:00 O2 Sat by Pulse Oximetry (%) 97 11/01/17 03:29 Vital Signs Period Temp Pulse Resp BP Sys/Cordero Pulse Ox Last 24 Hr 97.6 F-99.7 F 39-103 12-20 87-135/34-98 95-98 Constitutional: Yes: Well Nourished, No Distress, Calm Eyes: Yes: Conjunctiva Clear, EOM Intact HENT: Yes: Atraumatic, Normocephalic Neck: Yes: Supple, Trachea Midline Cardiovascular: Yes: Regular Rate and Rhythm, S1, S2 Respiratory: Yes: Regular, CTA Bilaterally Gastrointestinal: Yes: Normal Bowel Sounds, Soft ...Rectal Exam: Yes: Deferred Genitourinary: No: CVA Tenderness - Left, CVA Tenderness - Right Extremities: Yes: Amputation (bilateral LE multiple level, Left hand multiple level). No: Cool, Cyanosis Integumentary: No: Jaundice, Rash Wound/Incision: Yes: Clean/Dry, Well Approximated, Sutures Intact (tips of index and ring fingers), Dressing Dry and Intact, Bleeding (minimal bledding from open cut surfac. 1.5 X1.5X0.5cm middle finger MCP). No: Draining, Reddened Neurological: Yes: Alert, Oriented Psychiatric: Yes: Alert, Oriented Labs: CBC, BMP 10/31/17 07:00 10/31/17 07:00 INR, PTT INR 3.46 (0.82-1.09) H 11/01/17 06:45 Problem List - Problems (1) Flexor tenosynovitis of finger Assessment/Plan: 72 yo female MMP including Afib on coumadin, DM type 2 and ESRD, Wet gangrene and flexor tenosynovitis left middle finger, dry gangrene of index and ring fingers, poor distal circulation on Duplex with PVR left arm. POD#1 s/p Left middle finger irrigation and debridement of flexor tenosynovitis and revision amputation of index middle and ring fingers. medical optimization and resume dialysis f/u cultures continue IV antibiotics elevation of left arm above heart adequate analgesia Dressing change daily Wound measurement: left middle open MCP 1.5x1.5x0.5cm, clean minimal bleeding , no purulent drainge Dressing instructions: 09/29" iodoform packing to open MCP, Xeroform, 4X4 gauze sponges, loose kerlex and coban wrap PT evaluation Code(s): M65.9 - SYNOVITIS AND TENOSYNOVITIS, UNSPECIFIED (2) Cellulitis and abscess of hand Code(s): L03.119 - CELLULITIS OF UNSPECIFIED PART OF LIMB; L02.519 - CUTANEOUS ABSCESS OF UNSPECIFIED HAND (3) Anemia in ESRD (end-stage renal disease) Code(s): N18.6 - END STAGE RENAL DISEASE; D63.1 - ANEMIA IN CHRONIC KIDNEY DISEASE (4) CAD (coronary artery disease) Code(s): I25.10 - ATHSCL HEART DISEASE OF [place] CORONARY ARTERY W/O ANG PCTRS Qualifiers: Coronary Disease-Associated Artery/Lesion type: [place] artery [place] vs. transplanted heart: [place] heart Associated angina: without angina Qualified Code(s): I25.10 - Atherosclerotic heart disease of [place] coronary artery without angina pectoris (5) DM type 2 causing complication Code(s): E11.8 - TYPE 2 DIABETES MELLITUS WITH UNSPECIFIED COMPLICATIONS (6) ESRD on hemodialysis Code(s): N18.6 - END STAGE RENAL DISEASE; Z99.2 - DEPENDENCE ON RENAL DIALYSIS (7) HTN (hypertension) Code(s): I10 - ESSENTIAL (PRIMARY) HYPERTENSION Qualifiers: Hypertension type: essential hypertension Qualified Code(s): I10 - Essential (primary) hypertension (8) Hypercholesterolemia Code(s): E78.00 - PURE HYPERCHOLESTEROLEMIA, UNSPECIFIED
[2017-11-01] MEDS ORDERED: PT OWN MED DRAWER 7, Y5N ONE ×2 (09:45→17:04)
[2017-11-01] MEDS: LACTOBACILLUS ACIDOPHILUS 1 EACH TAB (FP) PO SCH (09:54)
[2017-11-01] MEDS: CEFEPIME HCL/D5W 1 GM/50 ML BAG IVPB SCH (09:54)
[2017-11-01] MEDS: CALCIUM ACETATE 667 MG CAPSULE (FP) PO SCH (09:54)
[2017-11-01] MEDS: CYANOCOBALAMIN (VITAMIN B-12) 100 MCG TABLET PO SCH (09:55)
[2017-11-01] MEDS: METOPROLOL TARTRATE 25 MG TABLET (FP) PO SCH (09:55)
[2017-11-01] MEDS: PANTOPRAZOLE 40 MG TABLET (FP) PO SCH (09:56)
[2017-11-01] MEDS: ASPIRIN 81 MG CHEWABLE TABLETS PO SCH (09:56)
[2017-11-01] MEDS: DOCUSATE SODIUM 100 MG CAPSULE (FP) PO SCH (09:56)
[2017-11-01] MEDS: POLYETHYLENE GLYCOL 3350 119 GM BTL PO SCH (09:57)
--- NOTE | 2017-11-01 09:59 | PN ---
Progress Note (short form) - Note Progress Note: post op day#1.S/p Left middle finger amputation with revesion of left ring finger amputation under [place] uneventful.Patient satble.No any anesthesia related problem.Patient Dc from the anesthesia care.
[2017-11-01] MEDS ORDERED: METOPROLOL TARTRATE 25 MG TABLET (FP) PO SCH (10:00)
[2017-11-01] MEDS: MORPHINE SULFATE 10 MG/1 ML *VIAL IVPUSH PRN (10:26)
--- NOTE | 2017-11-01 11:08 | PN ---
Progress Note, Physician Chief Complaint: Events noted d/w Dr Galarza S/p hand surgery- left dressing done today has pain-- better after receiving morphine - Current Medication List Current Medications: Active Medications Acetaminophen (Tylenol -) 650 mg PO Q4H PRN PRN Reason: BACK PAIN Aspirin (Asa -) 81 mg PO DAILY [facility] Last Admin: 11/01/17 09:56 Dose: 81 mg Atorvastatin Calcium (Lipitor -) 80 mg PO HS [facility] Last Admin: 10/31/17 22:22 Dose: 80 mg Calcium Acetate (Phoslo -) 667 mg PO DAILY [facility] Last Admin: 11/01/17 09:54 Dose: 667 mg Clonazepam (Klonopin -) 0.5 mg PO HS [facility] Last Admin: 10/31/17 22:22 Dose: 0.5 mg Cyanocobalamin (Vitamin B12 -) 100 mcg PO DAILY [facility] Last Admin: 11/01/17 09:55 Dose: 100 mcg Docusate Sodium (Colace -) 100 mg PO DAILY [facility] Last Admin: 11/01/17 09:56 Dose: 100 mg Cefepime HCl (Maxipime 1 Gm Premix Ivpb) 1 gm in 50 mls @ 100 mls/hr IVPB DAILY [facility] Last Admin: 11/01/17 09:54 Dose: 100 mls/hr Metronidazole (Flagyl 500mg Premixed Ivpb -) 500 mg in 100 mls @ 100 mls/hr IVPB Q8H-IV [facility] Last Admin: 11/01/17 10:45 Dose: 100 mls/hr Insulin Aspart (Novolog Vial Sliding Scale -) 1 vial SQ ACHS [facility] PRN Reason: Protocol Last Admin: 11/01/17 06:27 Dose: Not Given Insulin Detemir (Levemir Vial) 20 units SQ BID@0700,2200 [facility] Last Admin: 11/01/17 06:27 Dose: 20 units Lactobacillus Acidophilus (Bacid -) 1 tab PO DAILY [facility] Last Admin: 11/01/17 09:54 Dose: 1 tab Levothyroxine Sodium (Synthroid -) 125 mcg PO DAILY@0700 [facility] Last Admin: 11/01/17 06:26 Dose: 125 mcg Metoprolol Tartrate (Lopressor -) 12.5 mg PO DAILY [facility] Last Admin: 11/01/17 09:55 Dose: 12.5 mg Morphine Sulfate (Morphine Injection -) 4 mg IVPUSH Q6H PRN PRN Reason: PAIN LEVEL 7 - 10 Last Admin: 11/01/17 10:26 Dose: 4 mg Nitroglycerin (Nitrostat -) 0.4 mg SL DAILY PRN PRN Reason: FOR CHEST PAIN Oxycodone HCl (Roxicodone -) 2.5 mg PO Q6H PRN PRN Reason: PAIN LEVEL 6-10 Last Admin: 11/01/17 07:46 Dose: 2.5 mg Pantoprazole Sodium (Protonix -) 40 mg PO DAILY [facility] Last Admin: 11/01/17 09:56 Dose: 40 mg Polyethylene Glycol (Miralax (For Daily Use) -) 17 gm PO DAILY [facility] Last Admin: 11/01/17 09:57 Dose: 17 grams Senna (Senna -) 1 tab PO [facility] Last Admin: 10/31/17 22:22 Dose: 1 tab - Objective Vital Signs: Vital Signs Temperature 99.7 F H 11/01/17 02:00 Pulse Rate 79 11/01/17 02:00 Respiratory Rate 18 11/01/17 02:00 Blood Pressure 118/72 11/01/17 02:00 O2 Sat by Pulse Oximetry (%) 97 11/01/17 03:29 Constitutional: Yes: No Distress Cardiovascular: Yes: Pulse Irregular Respiratory: Yes: Diminished Gastrointestinal: Yes: Normal Bowel Sounds, Soft. No: Tenderness Extremities: Yes: Amputation (rt aka ,left bka), Other (left hand dressing in place) Edema: No Labs: CBC, BMP 10/31/17 07:00 10/31/17 07:00 INR, PTT INR 3.46 (0.82-1.09) H 11/01/17 06:45 Problem List - Problems (1) Cellulitis and abscess of hand Code(s): L03.119 - CELLULITIS OF UNSPECIFIED PART OF LIMB; L02.519 - CUTANEOUS ABSCESS OF UNSPECIFIED HAND (2) Anemia Code(s): D64.9 - ANEMIA, UNSPECIFIED Qualifiers: Anemia type: other cause Other causes of anemia: chronic disease, kidney Qualified Code(s): N18.9 - Chronic kidney disease, unspecified (3) Atrial fibrillation Code(s): I48.91 - UNSPECIFIED ATRIAL FIBRILLATION Qualifiers: Atrial fibrillation type: unspecified Qualified Code(s): I48.91 - Unspecified atrial fibrillation (4) DM type 2 causing complication Code(s): E11.8 - TYPE 2 DIABETES MELLITUS WITH UNSPECIFIED COMPLICATIONS (5) ESRD (end stage renal disease) on dialysis Code(s): N18.6 - END STAGE RENAL DISEASE; Z99.2 - DEPENDENCE ON RENAL DIALYSIS Assessment/Plan Abx per ID continue other meds monitor bgm coumadin per inr- on hold pain control dialysis per renal will follow
[2017-11-01] MEDS ORDERED: VANCOMYCIN 1,000 MG in DEXTROSE 5%-WATER - 250 ML IVPB ONE (15:49)
--- NOTE | 2017-11-01 15:49 | PN ---
Progress Note (short form) - Note Progress Note: s/p hand surgery yesterday still quite tearful no fevers no sob Vital Signs Period Temp Pulse Resp BP Sys/Cordero Pulse Ox Last 24 Hr 97.3 F-99.7 F 39-103 15-22 87-135/34-98 95-98 cor-rrr lungs clear abd soft,nt ext hand is wrapped left AKA right MTA CBC, BMP 10/31/17 07:00 10/31/17 07:00 Microbiology 10/30/17 16:28 Blood - Peripheral Venous Blood Culture - Preliminary NO GROWTH OBTAINED AFTER 24 HOURS, INCUBATION TO CONTINUE FOR 4 DAYS. 10/30/17 15:43 Blood - Peripheral Venous Blood Culture - Preliminary NO GROWTH OBTAINED AFTER 24 HOURS, INCUBATION TO CONTINUE FOR 4 DAYS. Laboratory Tests 11/01/17 07:05 Random Vancomycin 12.678 a/p s/p hand surgery for tenosynovitis and gangrene f/u operative cultures redose vancomycin today esrd/hd follow vanco levels with HD Problem List - Problems (1) Flexor tenosynovitis of finger Code(s): M65.9 - SYNOVITIS AND TENOSYNOVITIS, UNSPECIFIED (2) Cellulitis of left hand Code(s): L03.114 - CELLULITIS OF LEFT UPPER LIMB (3) Diabetes Code(s): E11.9 - TYPE 2 DIABETES MELLITUS WITHOUT COMPLICATIONS Qualifiers: Diabetes mellitus type: type 1 Diabetes mellitus complication status: with circulatory complication Diabetes mellitus complication detail: with other circulatory complications Qualified Code(s): E10.59 - Type 1 diabetes mellitus with other circulatory complications (4) ESRD on hemodialysis Code(s): N18.6 - END STAGE RENAL DISEASE; Z99.2 - DEPENDENCE ON RENAL DIALYSIS
--- NOTE | 2017-11-01 16:47 | PN ---
Progress Note (short form) - Note Progress Note: Renal follow up for ESRD on HD Pt seen and examined at the bedside reports pain in left hand s/p surgery yesterday with drainage of hand s/p dialysis yesterday w/o complication no sob, chest pain, abd pain Vital Signs Temperature 98.3 F 11/01/17 14:56 Pulse Rate 70 11/01/17 14:56 Respiratory Rate 22 11/01/17 14:56 Blood Pressure 112/82 11/01/17 14:56 O2 Sat by Pulse Oximetry (%) 97 11/01/17 03:29 Intake & Output 10/29/17 10/30/17 10/31/17 11/01/17 23:59 23:59 23:59 23:59 Intake Total 760 560 Balance 760 560 Weight 83.915 kg 87.566 kg 88.088 kg NAD RRR CTA soft NT/ND right AKA left hand in dressing CBC, BMP 10/31/17 07:00 10/31/17 07:00 Current Medications Acetaminophen (Tylenol -) 650 mg PO Q4H PRN PRN Reason: BACK PAIN Aspirin (Asa -) 81 mg PO DAILY [facility] Last Admin: 11/01/17 09:56 Dose: 81 mg Atorvastatin Calcium (Lipitor -) 80 mg PO [facility] Last Admin: 10/31/17 22:22 Dose: 80 mg Calcium Acetate (Phoslo -) 667 mg PO DAILY [facility] Last Admin: 11/01/17 09:54 Dose: 667 mg Clonazepam (Klonopin -) 0.5 mg PO [facility] Last Admin: 10/31/17 22:22 Dose: 0.5 mg Cyanocobalamin (Vitamin B12 -) 100 mcg PO DAILY [facility] Last Admin: 11/01/17 09:55 Dose: 100 mcg Docusate Sodium (Colace -) 100 mg PO DAILY [facility] Last Admin: 11/01/17 09:56 Dose: 100 mg Cefepime HCl (Maxipime 1 Gm Premix Ivpb) 1 gm in 50 mls @ 100 mls/hr IVPB DAILY [facility] Last Admin: 11/01/17 09:54 Dose: 100 mls/hr Metronidazole (Flagyl 500mg Premixed Ivpb -) 500 mg in 100 mls @ 100 mls/hr IVPB Q8H-IV [facility] Last Admin: 11/01/17 10:45 Dose: 100 mls/hr Vancomycin HCl 1,000 mg/ (Dextrose) 250 mls @ 166.667 mls/hr IVPB ONCE ONE PRN Reason: Protocol Stop: 11/01/17 17:18 Insulin Aspart (Novolog Vial Sliding Scale -) 1 vial SQ BIDAC [facility] PRN Reason: Protocol Insulin Detemir (Levemir Vial) 20 units SQ BID@0700,2200 [facility] Last Admin: 11/01/17 06:27 Dose: 20 units Lactobacillus Acidophilus (Bacid -) 1 tab PO DAILY [facility] Last Admin: 11/01/17 09:54 Dose: 1 tab Levothyroxine Sodium (Synthroid -) 125 mcg PO DAILY@0700 [facility] Last Admin: 11/01/17 06:26 Dose: 125 mcg Metoprolol Tartrate (Lopressor -) 12.5 mg PO DAILY [facility] Last Admin: 11/01/17 09:55 Dose: 12.5 mg Morphine Sulfate (Morphine Injection -) 4 mg IVPUSH Q6H PRN PRN Reason: PAIN LEVEL 7 - 10 Last Admin: 11/01/17 10:26 Dose: 4 mg Nitroglycerin (Nitrostat -) 0.4 mg SL DAILY PRN PRN Reason: FOR CHEST PAIN Oxycodone HCl (Roxicodone -) 2.5 mg PO Q6H PRN PRN Reason: PAIN LEVEL 6-10 Last Admin: 11/01/17 07:46 Dose: 2.5 mg Pantoprazole Sodium (Protonix -) 40 mg PO DAILY [facility] Last Admin: 11/01/17 09:56 Dose: 40 mg Polyethylene Glycol (Miralax (For Daily Use) -) 17 gm PO DAILY [facility] Last Admin: 11/01/17 09:57 Dose: 17 grams Senna (Senna -) 1 tab PO HS [facility] Last Admin: 10/31/17 22:22 Dose: 1 tab 72 year old woman with PMhx of ESRD on HD, Hypertension, DM on Insulin, PVD who presented with worsening hand pain. #ESRD on HD s/p dialysis yesterday, no acute indication for treatment today next dialysis is planned for tomorrow #Hand ischemia/Pain s/p surgery hand surgery follow up pain control will continue Abx as per ID cultures pending will check Vanco levels with HD Wan Cruz DO
[2017-11-01] MEDS: ATORVASTATIN CA 80 MG TABLET (FP) PO SCH (21:58)
[2017-11-01] MEDS: SENNOSIDES 8.6MG TABLET (FP) PO SCH (21:59)
[2017-11-01] MEDS: clonazePAM 0.5 MG TABLET PO SCH (22:00)
[2017-11-02] MEDS: MORPHINE SULFATE 10 MG/1 ML *VIAL IVPUSH PRN ×3 (01:38→21:56)
[2017-11-02] MEDS ORDERED: VANCOMYCIN 1,000 MG in DEXTROSE 5%-WATER - 250 ML IVPB ONE (06:00)
[2017-11-02 06:10] LABS: HBSAG SCREEN Negative (Negative); HEP B CORE AB, TOT Negative (Negative)
[2017-11-02] MEDS: LEVOTHYROXINE NA 125 MCG TABLET (FP) PO SCH (06:34)
[2017-11-02] MEDS: INSULIN SLIDING SCALE (NOVOLOG) 1 VIAL SQ SCH ×2 (06:34→17:38)
[2017-11-02] MEDS: INSULIN DETEMIR 100 UNITS/ML MDV SQ SCH ×2 (06:40→21:57)
[2017-11-02] MEDS ORDERED: INSULIN (NOVOLOG) ASPART 100 UNITS/ML 10ML VIAL ONE ×3 (06:59→17:35)
[2017-11-02 08:24] LABS: INR 2.27 (0.82-1.09); PROTHROMBIN TIME (PATIENT) 25.7 SEC (9.98-11.88)
[2017-11-02 08:44] LABS: HEMATOCRIT 36.4 % (32.4-45.2); HEMOGLOBIN 11.3 GM/dL (10.7-15.3); MCH 30.1 pg (25.7-33.7); MEAN CELL VOLUME 97.3 fl (80-96); MEAN PLT VOLUME 7.9 fl (7.5-11.1); PLATELET COUNT 392 K/MM3 (134-434); RBC 3.74 M/mm3 (3.60-5.2); RDW 18.3 % (11.6-15.6); WHITE BLOOD COUNT 9.7 K/mm3 (4.0-10.0)
[2017-11-02] MEDS: ACETAMINOPHEN 325 MG TABLET (FP) PO PRN ×2 (09:13→17:59)
[2017-11-02] MEDS: oxyCODONE HCL 5 MG TABLET PO PRN ×2 (09:15→18:00)
[2017-11-02 09:40] LABS: ANION GAP 11 (8-16); BLOOD UREA NITROGEN 51 mg/dL (7-18); CALCIUM 7.4 mg/dL (8.5-10.1); CHLORIDE 100 mmol/L (98-107); CO2 27 mmol/L (21-32); CREATININE 5.3 mg/dL (0.55-1.02); PHOSPHOROUS 4.9 mg/dL (2.5-4.9); POTASSIUM 4.4 mmol/L (3.5-5.1); SODIUM 138 mmol/L (136-145)
[2017-11-02 09:47] LABS: GLUCOSE,RANDOM 49 mg/dL (74-106)
--- NOTE | 2017-11-02 11:09 | PN ---
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 found to have flexor tenosynovitis and a combination of wet and dry gangrene. Report pain was adequately controlled overnight. - Current Medication List Current Medications: Active Medications Acetaminophen (Tylenol -) 650 mg PO Q4H PRN PRN Reason: BACK PAIN Last Admin: 11/02/17 09:13 Dose: 650 mg Aspirin (Asa -) 81 mg PO DAILY [facility] Last Admin: 11/01/17 09:56 Dose: 81 mg Atorvastatin Calcium (Lipitor -) 80 mg PO HS [facility] Last Admin: 11/01/17 21:58 Dose: 80 mg Calcium Acetate (Phoslo -) 667 mg PO DAILY [facility] Last Admin: 11/01/17 09:54 Dose: 667 mg Clonazepam (Klonopin -) 0.5 mg PO HS [facility] Last Admin: 11/01/17 22:00 Dose: Not Given Cyanocobalamin (Vitamin B12 -) 100 mcg PO DAILY [facility] Last Admin: 11/01/17 09:55 Dose: 100 mcg Docusate Sodium (Colace -) 100 mg PO DAILY [facility] Last Admin: 11/01/17 09:56 Dose: 100 mg Cefepime HCl (Maxipime 1 Gm Premix Ivpb) 1 gm in 50 mls @ 100 mls/hr IVPB DAILY [facility] Last Admin: 11/01/17 09:54 Dose: 100 mls/hr Metronidazole (Flagyl 500mg Premixed Ivpb -) 500 mg in 100 mls @ 100 mls/hr IVPB Q8H-IV [facility] Last Admin: 11/02/17 01:40 Dose: 100 mls/hr Insulin Aspart (Novolog Vial Sliding Scale -) 1 vial SQ BIDAC [facility] PRN Reason: Protocol Last Admin: 11/02/17 06:34 Dose: Not Given Insulin Detemir (Levemir Vial) 20 units SQ BID@0700,2200 [facility] Last Admin: 11/02/17 06:40 Dose: Not Given Lactobacillus Acidophilus (Bacid -) 1 tab PO DAILY [facility] Last Admin: 11/01/17 09:54 Dose: 1 tab Levothyroxine Sodium (Synthroid -) 125 mcg PO DAILY@0700 [facility] Last Admin: 11/02/17 06:34 Dose: 125 mcg Metoprolol Tartrate (Lopressor -) 12.5 mg PO DAILY [facility] Last Admin: 11/01/17 09:55 Dose: 12.5 mg Morphine Sulfate (Morphine Injection -) 4 mg IVPUSH Q6H PRN PRN Reason: PAIN LEVEL 7 - 10 Last Admin: 11/02/17 01:38 Dose: 4 mg Nitroglycerin (Nitrostat -) 0.4 mg SL DAILY PRN PRN Reason: FOR CHEST PAIN Oxycodone HCl (Roxicodone -) 2.5 mg PO Q6H PRN PRN Reason: PAIN LEVEL 6-10 Last Admin: 11/02/17 09:15 Dose: 2.5 mg Pantoprazole Sodium (Protonix -) 40 mg PO DAILY [facility] Last Admin: 11/01/17 09:56 Dose: 40 mg Polyethylene Glycol (Miralax (For Daily Use) -) 17 gm PO DAILY [facility] Last Admin: 11/01/17 09:57 Dose: 17 grams Senna (Senna -) 1 tab PO HS [facility] Last Admin: 11/01/17 21:59 Dose: 1 tab - Objective Vital Signs: Vital Signs Temperature 98.7 F 11/02/17 08:05 Pulse Rate 94 H 11/02/17 10:40 Respiratory Rate 18 11/02/17 10:40 Blood Pressure 133/44 11/02/17 10:40 O2 Sat by Pulse Oximetry (%) 98 11/01/17 21:00 Vital Signs Period Temp Pulse Resp BP Sys/Cordero Pulse Ox Last 24 Hr 97.7 F-98.7 F 55-94 18-22 97-141/41-92 98 Constitutional: Yes: Well Nourished, No Distress, Moderate Distress Eyes: Yes: Conjunctiva Clear, EOM Intact HENT: Yes: Atraumatic, Normocephalic Neck: Yes: Supple, Trachea Midline Cardiovascular: Yes: Regular Rate and Rhythm, S1, S2. No: Murmur Respiratory: Yes: Regular, CTA Bilaterally Gastrointestinal: Yes: Normal Bowel Sounds, Soft. No: Tenderness ...Rectal Exam: Yes: Deferred Genitourinary: No: CVA Tenderness - Left, CVA Tenderness - Right Musculoskeletal: No: Muscle Pain, Muscle Weakness Extremities: No: Cool, Cyanosis Edema: No Peripheral Pulses WNL: Yes Peripheral Pulses: Left Radial: 2+, Right Radial: 2+ Wound/Incision: Yes: Clean/Dry, Well Approximated, Unapproximated (left middle finger MCP joint). No: Draining, Reddened Labs: CBC, BMP 11/02/17 07:28 11/02/17 08:10 INR, PTT INR 2.27 (0.82-1.09) H D 11/02/17 07:28 Microbiology 10/30/17 16:28 Blood - Peripheral Venous Blood Culture - Preliminary NO GROWTH OBTAINED AFTER 48 HOURS, INCUBATION TO CONTINUE FOR 3 DAYS. 10/30/17 15:43 Blood - Peripheral Venous Blood Culture - Preliminary NO GROWTH OBTAINED AFTER 48 HOURS, INCUBATION TO CONTINUE FOR 3 DAYS. Problem List - Problems (1) Flexor tenosynovitis of finger Assessment/Plan: 72 yo female MMP including Afib on coumadin, DM type 2 and ESRD, Wet gangrene and flexor tenosynovitis left middle finger, dry gangrene of index and ring fingers, poor distal circulation on Duplex with PVR left arm. POD#2 s/p Left middle finger irrigation and debridement of flexor tenosynovitis and revision amputation of index middle and ring fingers. medical optimization and resume dialysis f/u cultures continue IV antibiotics elevation of left arm above heart adequate analgesia Will need discharge with VNS for daily dressing Dressing change daily Wound measurement: left middle open MCP 1.5x1.5x0.5cm, clean no purulent drainage Dressing instructions: /" iodoform packing to open MCP, Xeroform, 4X4 gauze sponges, loose kerlex and coban wrap PT evaluation Code(s): M65.9 - SYNOVITIS AND TENOSYNOVITIS, UNSPECIFIED (2) Cellulitis and abscess of hand Code(s): L03.119 - CELLULITIS OF UNSPECIFIED PART OF LIMB; L02.519 - CUTANEOUS ABSCESS OF UNSPECIFIED HAND (3) Anemia in ESRD (end-stage renal disease) Code(s): N18.6 - END STAGE RENAL DISEASE; D63.1 - ANEMIA IN CHRONIC KIDNEY DISEASE (4) CAD (coronary artery disease) Code(s): I25.10 - ATHSCL HEART DISEASE OF [place] CORONARY ARTERY W/O ANG PCTRS Qualifiers: Coronary Disease-Associated Artery/Lesion type: [place] artery [place] vs. transplanted heart: [place] heart Associated angina: without angina Qualified Code(s): I25.10 - Atherosclerotic heart disease of [place] coronary artery without angina pectoris (5) DM type 2 causing complication Code(s): E11.8 - TYPE 2 DIABETES MELLITUS WITH UNSPECIFIED COMPLICATIONS (6) ESRD on hemodialysis Code(s): N18.6 - END STAGE RENAL DISEASE; Z99.2 - DEPENDENCE ON RENAL DIALYSIS (7) HTN (hypertension) Code(s): I10 - ESSENTIAL (PRIMARY) HYPERTENSION Qualifiers: Hypertension type: essential hypertension Qualified Code(s): I10 - Essential (primary) hypertension (8) Hypercholesterolemia Code(s): E78.00 - PURE HYPERCHOLESTEROLEMIA, UNSPECIFIED
--- NOTE | 2017-11-02 11:48 | PN ---
Progress Note (short form) - Note Progress Note: Renal follow up for ESRD on HD Pt seen and examined during dialysis BP stable, goal UF is 1.5L pt has pain in left hand no sob, chest pain, abd pain, fever or chills Vanco level > 20 Vital Signs Temperature 98.7 F 11/02/17 08:05 Pulse Rate 94 H 11/02/17 10:40 Respiratory Rate 18 11/02/17 10:40 Blood Pressure 133/44 11/02/17 10:40 O2 Sat by Pulse Oximetry (%) 98 11/01/17 21:00 Intake & Output 10/30/17 10/31/17 11/01/17 11/02/17 23:59 23:59 23:59 23:59 Intake Total 760 1710 300 Balance 760 1710 300 Weight 83.915 kg 87.566 kg 88.088 kg 89.086 kg NAD RRR Right AKA CBC, BMP 11/02/17 07:28 Current Medications Acetaminophen (Tylenol -) 650 mg PO Q4H PRN PRN Reason: BACK PAIN Last Admin: 11/02/17 09:13 Dose: 650 mg Aspirin (Asa -) 81 mg PO DAILY [facility] Last Admin: 11/01/17 09:56 Dose: 81 mg Atorvastatin Calcium (Lipitor -) 80 mg PO [facility] Last Admin: 11/01/17 21:58 Dose: 80 mg Calcium Acetate (Phoslo -) 667 mg PO DAILY [facility] Last Admin: 11/01/17 09:54 Dose: 667 mg Clonazepam (Klonopin -) 0.5 mg PO [facility] Last Admin: 11/01/17 22:00 Dose: Not Given Cyanocobalamin (Vitamin B12 -) 100 mcg PO DAILY [facility] Last Admin: 11/01/17 09:55 Dose: 100 mcg Docusate Sodium (Colace -) 100 mg PO DAILY [facility] Last Admin: 11/01/17 09:56 Dose: 100 mg Cefepime HCl (Maxipime 1 Gm Premix Ivpb) 1 gm in 50 mls @ 100 mls/hr IVPB DAILY [facility] Last Admin: 11/01/17 09:54 Dose: 100 mls/hr Metronidazole (Flagyl 500mg Premixed Ivpb -) 500 mg in 100 mls @ 100 mls/hr IVPB Q8H-IV [facility] Last Admin: 11/02/17 01:40 Dose: 100 mls/hr Insulin Aspart (Novolog Vial Sliding Scale -) 1 vial SQ BIDAC [facility] PRN Reason: Protocol Last Admin: 11/02/17 06:34 Dose: Not Given Insulin Detemir (Levemir Vial) 20 units SQ BID@0700,2200 [facility] Last Admin: 11/02/17 06:40 Dose: Not Given Lactobacillus Acidophilus (Bacid -) 1 tab PO DAILY [facility] Last Admin: 11/01/17 09:54 Dose: 1 tab Levothyroxine Sodium (Synthroid -) 125 mcg PO DAILY@0700 [facility] Last Admin: 11/02/17 06:34 Dose: 125 mcg Metoprolol Tartrate (Lopressor -) 12.5 mg PO DAILY [facility] Last Admin: 11/01/17 09:55 Dose: 12.5 mg Morphine Sulfate (Morphine Injection -) 2 mg IVPUSH Q6H PRN PRN Reason: PAIN LEVEL 7 - 10 Nitroglycerin (Nitrostat -) 0.4 mg SL DAILY PRN PRN Reason: FOR CHEST PAIN Oxycodone HCl (Roxicodone -) 2.5 mg PO Q6H PRN PRN Reason: PAIN LEVEL 6-10 Last Admin: 11/02/17 09:15 Dose: 2.5 mg Pantoprazole Sodium (Protonix -) 40 mg PO DAILY [facility] Last Admin: 11/01/17 09:56 Dose: 40 mg Polyethylene Glycol (Miralax (For Daily Use) -) 17 gm PO DAILY [facility] Last Admin: 11/01/17 09:57 Dose: 17 grams Senna (Senna -) 1 tab PO HS [facility] Last Admin: 11/01/17 21:59 Dose: 1 tab 72 year old woman with PMhx of ESRD on HD, Hypertension, DM on Insulin, PVD who presented with worsening hand pain. #ESRD on HD pt tolerated dialysis well with UF of 1.5L BP stable throughout the treatment #Hand ischemia/Pain continue wound care and dressing changes per surgery Vanco level > 20 today, did not redose continue cefepime and flagyl as per ID follow up cultures from RUBÉN Cruz DO
[2017-11-02 11:56] LABS: CREATININE 1.9 mg/dL (0.55-1.02)
--- NOTE | 2017-11-02 11:58 | PN ---
Progress Note, Physician Chief Complaint: low blood sugars this AM has poor appetite Has pain in left hand when dressing is changed - Current Medication List Current Medications: Active Medications Acetaminophen (Tylenol -) 650 mg PO Q4H PRN PRN Reason: BACK PAIN Last Admin: 11/02/17 09:13 Dose: 650 mg Aspirin (Asa -) 81 mg PO DAILY [facility] Last Admin: 11/01/17 09:56 Dose: 81 mg Atorvastatin Calcium (Lipitor -) 80 mg PO HS [facility] Last Admin: 11/01/17 21:58 Dose: 80 mg Calcium Acetate (Phoslo -) 667 mg PO DAILY [facility] Last Admin: 11/01/17 09:54 Dose: 667 mg Clonazepam (Klonopin -) 0.5 mg PO [facility] Last Admin: 11/01/17 22:00 Dose: Not Given Cyanocobalamin (Vitamin B12 -) 100 mcg PO DAILY [facility] Last Admin: 11/01/17 09:55 Dose: 100 mcg Docusate Sodium (Colace -) 100 mg PO DAILY [facility] Last Admin: 11/01/17 09:56 Dose: 100 mg Cefepime HCl (Maxipime 1 Gm Premix Ivpb) 1 gm in 50 mls @ 100 mls/hr IVPB DAILY [facility] Last Admin: 11/01/17 09:54 Dose: 100 mls/hr Metronidazole (Flagyl 500mg Premixed Ivpb -) 500 mg in 100 mls @ 100 mls/hr IVPB Q8H-IV [facility] Last Admin: 11/02/17 01:40 Dose: 100 mls/hr Insulin Aspart (Novolog Vial Sliding Scale -) 1 vial SQ BIDAC [facility] PRN Reason: Protocol Last Admin: 11/02/17 06:34 Dose: Not Given Insulin Detemir (Levemir Vial) 20 units SQ BID@0700,2200 [facility] Last Admin: 11/02/17 06:40 Dose: Not Given Lactobacillus Acidophilus (Bacid -) 1 tab PO DAILY [facility] Last Admin: 11/01/17 09:54 Dose: 1 tab Levothyroxine Sodium (Synthroid -) 125 mcg PO DAILY@0700 [facility] Last Admin: 11/02/17 06:34 Dose: 125 mcg Metoprolol Tartrate (Lopressor -) 12.5 mg PO DAILY [facility] Last Admin: 11/01/17 09:55 Dose: 12.5 mg Morphine Sulfate (Morphine Injection -) 2 mg IVPUSH Q6H PRN PRN Reason: PAIN LEVEL 7 - 10 Nitroglycerin (Nitrostat -) 0.4 mg SL DAILY PRN PRN Reason: FOR CHEST PAIN Oxycodone HCl (Roxicodone -) 2.5 mg PO Q6H PRN PRN Reason: PAIN LEVEL 6-10 Last Admin: 11/02/17 09:15 Dose: 2.5 mg Pantoprazole Sodium (Protonix -) 40 mg PO DAILY [facility] Last Admin: 11/01/17 09:56 Dose: 40 mg Polyethylene Glycol (Miralax (For Daily Use) -) 17 gm PO DAILY [facility] Last Admin: 11/01/17 09:57 Dose: 17 grams Senna (Senna -) 1 tab PO [facility] Last Admin: 11/01/17 21:59 Dose: 1 tab - Objective Vital Signs: Vital Signs Temperature 98.7 F 11/02/17 08:05 Pulse Rate 78 11/02/17 11:30 Respiratory Rate 18 11/02/17 11:30 Blood Pressure 138/43 11/02/17 11:30 O2 Sat by Pulse Oximetry (%) 98 11/01/17 21:00 Constitutional: Yes: No Distress, Anxious Cardiovascular: Yes: Pulse Irregular Respiratory: Yes: CTA Bilaterally Gastrointestinal: Yes: Normal Bowel Sounds, Soft. No: Distention, Tenderness Extremities: Yes: Amputation, Other (left hand dressing in place) Edema: No Labs: CBC, BMP 11/02/17 07:28 INR, PTT INR 2.27 (0.82-1.09) H D 11/02/17 07:28 Problem List - Problems (1) Cellulitis and abscess of hand Code(s): L03.119 - CELLULITIS OF UNSPECIFIED PART OF LIMB; L02.519 - CUTANEOUS ABSCESS OF UNSPECIFIED HAND (2) Anemia Code(s): D64.9 - ANEMIA, UNSPECIFIED Qualifiers: Anemia type: other cause Other causes of anemia: chronic disease, kidney (3) Atrial fibrillation Code(s): I48.91 - UNSPECIFIED ATRIAL FIBRILLATION Qualifiers: Atrial fibrillation type: unspecified Qualified Code(s): I48.91 - Unspecified atrial fibrillation (4) DM type 2 causing complication Code(s): E11.8 - TYPE 2 DIABETES MELLITUS WITH UNSPECIFIED COMPLICATIONS (5) ESRD (end stage renal disease) on dialysis Code(s): N18.6 - END STAGE RENAL DISEASE; Z99.2 - DEPENDENCE ON RENAL DIALYSIS Assessment/Plan Abx per ID continue other meds monitor bgm-- decrease Levemir watch for hypoglycemia dc Klonopin as it makes her too sleepy per nurse coumadin per inr- resume pain control dialysis per renal will follow
[2017-11-02] MEDS ORDERED: PT OWN MED DRAWER 7, Y5N ONE (12:05)
[2017-11-02] MEDS: LACTOBACILLUS ACIDOPHILUS 1 EACH TAB (FP) PO SCH (12:19)
[2017-11-02] MEDS: CALCIUM ACETATE 667 MG CAPSULE (FP) PO SCH (12:19)
[2017-11-02] MEDS: DOCUSATE SODIUM 100 MG CAPSULE (FP) PO SCH (12:19)
[2017-11-02] MEDS: ASPIRIN 81 MG CHEWABLE TABLETS PO SCH (12:19)
[2017-11-02] MEDS: PANTOPRAZOLE 40 MG TABLET (FP) PO SCH (12:20)
[2017-11-02] MEDS: CYANOCOBALAMIN (VITAMIN B-12) 100 MCG TABLET PO SCH (12:20)
[2017-11-02] MEDS: METOPROLOL TARTRATE 25 MG TABLET (FP) PO SCH (12:21)
[2017-11-02] MEDS: POLYETHYLENE GLYCOL 3350 119 GM BTL PO SCH (12:36)
[2017-11-02] MEDS: CEFEPIME HCL/D5W 1 GM/50 ML BAG IVPB SCH (13:27)
--- NOTE | 2017-11-02 16:47 | PN ---
Progress Note (short form) - Note Progress Note: s/p hand surgery yesterday still quite tearful no fevers no sob Vital Signs Period Temp Pulse Resp BP Sys/Cordero Pulse Ox Last 24 Hr 97.7 F-98.7 F 55-103 18-20 97-164/41-92 94-98 cor-rrr lungs clear abd soft,nt hand bandaged CBC, BMP 11/02/17 07:28 11/02/17 11:20 Microbiology 10/30/17 16:28 Blood - Peripheral Venous Blood Culture - Preliminary NO GROWTH OBTAINED AFTER 72 HOURS, INCUBATION TO CONTINUE FOR 2 DAYS. 10/30/17 15:43 Blood - Peripheral Venous Blood Culture - Preliminary NO GROWTH OBTAINED AFTER 72 HOURS, INCUBATION TO CONTINUE FOR 2 DAYS. 10/31/17 16:30 Hand - Left Wound Culture - Preliminary Lactose Fermenting Neg Bacilli Group D Strep Or Entero Coccus vanco level 20 today a/p s/p hand surgery for tenosynovitis and gangrene f/u operative cultures continue cefepime and flagyl esrd/hd follow vanco levels with HD Problem List - Problems (1) Flexor tenosynovitis of finger Code(s): M65.9 - SYNOVITIS AND TENOSYNOVITIS, UNSPECIFIED (2) Cellulitis of left hand Code(s): L03.114 - CELLULITIS OF LEFT UPPER LIMB (3) Diabetes Code(s): E11.9 - TYPE 2 DIABETES MELLITUS WITHOUT COMPLICATIONS Qualifiers: Diabetes mellitus type: type 1 Diabetes mellitus complication status: with circulatory complication Diabetes mellitus complication detail: with other circulatory complications Qualified Code(s): E10.59 - Type 1 diabetes mellitus with other circulatory complications (4) ESRD on hemodialysis Code(s): N18.6 - END STAGE RENAL DISEASE; Z99.2 - DEPENDENCE ON RENAL DIALYSIS
[2017-11-02] MEDS: ATORVASTATIN CA 80 MG TABLET (FP) PO SCH (21:57)
[2017-11-02] MEDS: SENNOSIDES 8.6MG TABLET (FP) PO SCH (21:58)
[2017-11-03] MEDS: INSULIN DETEMIR 100 UNITS/ML MDV SQ SCH ×2 (06:35→22:38)
[2017-11-03] MEDS: INSULIN SLIDING SCALE (NOVOLOG) 1 VIAL SQ SCH ×2 (06:35→18:03)
[2017-11-03] MEDS: LEVOTHYROXINE NA 125 MCG TABLET (FP) PO SCH (06:36)
[2017-11-03 07:46] LABS: INR 1.82 (0.82-1.09); PROTHROMBIN TIME (PATIENT) 20.6 SEC (9.98-11.88)
[2017-11-03 08:39] LABS: ANION GAP 10 (8-16); BLOOD UREA NITROGEN 29 mg/dL (7-18); CALCIUM 7.4 mg/dL (8.5-10.1); CHLORIDE 103 mmol/L (98-107); CO2 28 mmol/L (21-32); CREATININE 3.8 mg/dL (0.55-1.02); GLUCOSE,RANDOM 117 mg/dL (74-106); POTASSIUM 4.8 mmol/L (3.5-5.1); SODIUM 141 mmol/L (136-145)
--- NOTE | 2017-11-03 10:27 | PN ---
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 found to have flexor tenosynovitis and a combination of wet and dry gangrene. Report pain was adequately controlled overnight. - Current Medication List Current Medications: Active Medications Acetaminophen (Tylenol -) 650 mg PO Q4H PRN PRN Reason: BACK PAIN Last Admin: 11/02/17 17:59 Dose: 650 mg Aspirin (Asa -) 81 mg PO DAILY [facility] Last Admin: 11/02/17 12:19 Dose: 81 mg Atorvastatin Calcium (Lipitor -) 80 mg PO HS [facility] Last Admin: 11/02/17 21:57 Dose: 80 mg Calcium Acetate (Phoslo -) 667 mg PO DAILY [facility] Last Admin: 11/02/17 12:19 Dose: 667 mg Cyanocobalamin (Vitamin B12 -) 100 mcg PO DAILY [facility] Last Admin: 11/02/17 12:20 Dose: 100 mcg Docusate Sodium (Colace -) 100 mg PO DAILY [facility] Last Admin: 11/02/17 12:19 Dose: 100 mg Cefepime HCl (Maxipime 1 Gm Premix Ivpb) 1 gm in 50 mls @ 100 mls/hr IVPB DAILY [facility] Last Admin: 11/02/17 13:27 Dose: 100 mls/hr Metronidazole (Flagyl 500mg Premixed Ivpb -) 500 mg in 100 mls @ 100 mls/hr IVPB Q8H-IV [facility] Last Admin: 11/03/17 09:42 Dose: 100 mls/hr Insulin Aspart (Novolog Vial Sliding Scale -) 1 vial SQ BIDAC [facility] PRN Reason: Protocol Last Admin: 11/03/17 06:35 Dose: Not Given Insulin Detemir (Levemir Vial) 16 units SQ BID@0700,2200 [facility] Last Admin: 11/03/17 06:35 Dose: 16 units Lactobacillus Acidophilus (Bacid -) 1 tab PO DAILY [facility] Last Admin: 11/02/17 12:19 Dose: 1 tab Levothyroxine Sodium (Synthroid -) 125 mcg PO DAILY@0700 [facility] Last Admin: 11/03/17 06:36 Dose: 125 mcg Metoprolol Tartrate (Lopressor -) 12.5 mg PO DAILY [facility] Last Admin: 11/02/17 12:21 Dose: Not Given Morphine Sulfate (Morphine Injection -) 2 mg IVPUSH Q6H PRN PRN Reason: PAIN LEVEL 7 - 10 Last Admin: 11/02/17 21:56 Dose: 2 mg Nitroglycerin (Nitrostat -) 0.4 mg SL DAILY PRN PRN Reason: FOR CHEST PAIN Oxycodone HCl (Roxicodone -) 2.5 mg PO Q6H PRN PRN Reason: PAIN LEVEL 6-10 Last Admin: 11/02/17 18:00 Dose: 2.5 mg Pantoprazole Sodium (Protonix -) 40 mg PO DAILY [facility] Last Admin: 11/02/17 12:20 Dose: 40 mg Polyethylene Glycol (Miralax (For Daily Use) -) 17 gm PO DAILY [facility] Last Admin: 11/02/17 12:36 Dose: 17 grams Senna (Senna -) 1 tab PO HS [facility] Last Admin: 11/02/17 21:58 Dose: Not Given Warfarin Sodium (Coumadin -) 3 mg PO DAILY@1800 [facility] - Objective Vital Signs: Vital Signs Temperature 99.2 F 11/03/17 09:34 Pulse Rate 108 H 11/03/17 09:34 Respiratory Rate 18 11/03/17 09:34 Blood Pressure 139/92 11/03/17 09:34 O2 Sat by Pulse Oximetry (%) 96 11/02/17 21:00 Vital Signs Period Temp Pulse Resp BP Sys/Cordero Pulse Ox Last 24 Hr 98.0 F-99.3 F 74-112 18-20 122-164/43-95 94-96 Constitutional: Yes: Well Nourished, No Distress Eyes: Yes: Conjunctiva Clear, EOM Intact HENT: Yes: Atraumatic, Normocephalic Neck: Yes: Supple, Trachea Midline Cardiovascular: Yes: Regular Rate and Rhythm, S1, S2 Respiratory: Yes: Regular, CTA Bilaterally Gastrointestinal: Yes: Normal Bowel Sounds, Soft. No: Tenderness ...Rectal Exam: Yes: Deferred Genitourinary: No: CVA Tenderness - Left, CVA Tenderness - Right Extremities: Yes: Amputation (left index though ring fingers) Wound/Incision: Yes: Well Approximated, Unapproximated (mmiddle finger MCP joint. clean base 2). No: Draining, Bleeding Neurological: Yes: Alert, Oriented Psychiatric: Yes: Alert, Oriented Labs: CBC, BMP 11/02/17 07:28 11/03/17 06:20 INR, PTT INR 1.82 (0.82-1.09) H 11/03/17 06:20 Problem List - Problems (1) Flexor tenosynovitis of finger Assessment/Plan: 72 yo female MMP including Afib on coumadin, DM type 2 and ESRD, Wet gangrene and flexor tenosynovitis left middle finger, dry gangrene of index and ring fingers, poor distal circulation on duplex with PVR left arm. POD#3 s/p Left middle finger irrigation and debridement of flexor tenosynovitis and revision amputation of index middle and ring fingers. f/u cultures continue IV antibiotics elevation of left arm above heart adequate analgesia Will need discharge with VNS for daily dressing Dressing change daily Wound measurement: left middle open MCP 1.2x1.2x0.5cm, clean no purulent drainage Dressing instructions: 1/4" iodoform packing to open MCP, Xeroform, 4X4 gauze sponges, loose kerlex and coban wrap PT evaluation Code(s): M65.9 - SYNOVITIS AND TENOSYNOVITIS, UNSPECIFIED (2) Cellulitis and abscess of hand Code(s): L03.119 - CELLULITIS OF UNSPECIFIED PART OF LIMB; L02.519 - CUTANEOUS ABSCESS OF UNSPECIFIED HAND (3) Anemia in ESRD (end-stage renal disease) Code(s): N18.6 - END STAGE RENAL DISEASE; D63.1 - ANEMIA IN CHRONIC KIDNEY DISEASE (4) CAD (coronary artery disease) Code(s): I25.10 - ATHSCL HEART DISEASE OF [place] CORONARY ARTERY W/O ANG PCTRS Qualifiers: Coronary Disease-Associated Artery/Lesion type: [place] artery [place] vs. transplanted heart: [place] heart Associated angina: without angina Qualified Code(s): I25.10 - Atherosclerotic heart disease of [place] coronary artery without angina pectoris (5) DM type 2 causing complication Code(s): E11.8 - TYPE 2 DIABETES MELLITUS WITH UNSPECIFIED COMPLICATIONS (6) ESRD on hemodialysis Code(s): N18.6 - END STAGE RENAL DISEASE; Z99.2 - DEPENDENCE ON RENAL DIALYSIS (7) HTN (hypertension) Code(s): I10 - ESSENTIAL (PRIMARY) HYPERTENSION Qualifiers: Hypertension type: essential hypertension Qualified Code(s): I10 - Essential (primary) hypertension (8) Hypercholesterolemia Code(s): E78.00 - PURE HYPERCHOLESTEROLEMIA, UNSPECIFIED
[2017-11-03] MEDS: PANTOPRAZOLE 40 MG TABLET (FP) PO SCH (11:01)
[2017-11-03] MEDS: DOCUSATE SODIUM 100 MG CAPSULE (FP) PO SCH ×2 (11:01→11:04)
[2017-11-03] MEDS: CEFEPIME HCL/D5W 1 GM/50 ML BAG IVPB SCH (11:01)
[2017-11-03] MEDS: LACTOBACILLUS ACIDOPHILUS 1 EACH TAB (FP) PO SCH (11:01)
[2017-11-03] MEDS: METOPROLOL TARTRATE 25 MG TABLET (FP) PO SCH (11:02)
[2017-11-03] MEDS: CYANOCOBALAMIN (VITAMIN B-12) 100 MCG TABLET PO SCH (11:02)
[2017-11-03] MEDS: ASPIRIN 81 MG CHEWABLE TABLETS PO SCH (11:02)
[2017-11-03] MEDS: CALCIUM ACETATE 667 MG CAPSULE (FP) PO SCH (11:02)
[2017-11-03] MEDS: POLYETHYLENE GLYCOL 3350 119 GM BTL PO SCH (11:03)
[2017-11-03] MEDS: oxyCODONE HCL 5 MG TABLET PO PRN (11:30)
[2017-11-03] MEDS: ACETAMINOPHEN 325 MG TABLET (FP) PO PRN ×2 (11:30→22:41)
[2017-11-03] MEDS ORDERED: SODIUM CHLORIDE 500 ML IV STA ×2 (12:54→13:09)
[2017-11-03] MEDS ORDERED: SODIUM CHLORIDE 1,000 ML IV SCH (13:00)
--- NOTE | 2017-11-03 13:01 | PN ---
Progress Note, Physician Chief Complaint: S/p rapid response found to be hypotensive- systolic 60's given normal saline bolus, BP better now BGM elevated Denies chest pain states she was feeling cold and clammy early today , no SOB Dizziness+ - Current Medication List Current Medications: Active Medications Acetaminophen (Tylenol -) 650 mg PO Q4H PRN PRN Reason: BACK PAIN Last Admin: 11/03/17 11:30 Dose: 650 mg Aspirin (Asa -) 81 mg PO DAILY [facility] Last Admin: 11/03/17 11:02 Dose: 81 mg Atorvastatin Calcium (Lipitor -) 80 mg PO HS [facility] Last Admin: 11/02/17 21:57 Dose: 80 mg Calcium Acetate (Phoslo -) 667 mg PO DAILY [facility] Last Admin: 11/03/17 11:02 Dose: 667 mg Cyanocobalamin (Vitamin B12 -) 100 mcg PO DAILY [facility] Last Admin: 11/03/17 11:02 Dose: 100 mcg Docusate Sodium (Colace -) 100 mg PO DAILY [facility] Last Admin: 11/03/17 11:04 Dose: Not Given Cefepime HCl (Maxipime 1 Gm Premix Ivpb) 1 gm in 50 mls @ 100 mls/hr IVPB DAILY [facility] Last Admin: 11/03/17 11:01 Dose: 100 mls/hr Metronidazole (Flagyl 500mg Premixed Ivpb -) 500 mg in 100 mls @ 100 mls/hr IVPB Q8H-IV [facility] Last Admin: 11/03/17 09:42 Dose: 100 mls/hr Sodium Chloride (Normal Saline -) 500 mls @ 500 mls/hr IV ASDIR STA Stop: 11/03/17 13:53 Sodium Chloride (Normal Saline -) 1,000 mls @ 100 mls/hr IV ASDIR YOAN Insulin Aspart (Novolog Vial Sliding Scale -) 1 vial SQ BIDAC [facility] PRN Reason: Protocol Last Admin: 11/03/17 06:35 Dose: Not Given Insulin Detemir (Levemir Vial) 16 units SQ BID@0700,2200 [facility] Last Admin: 11/03/17 06:35 Dose: 16 units Lactobacillus Acidophilus (Bacid -) 1 tab PO DAILY [facility] Last Admin: 11/03/17 11:01 Dose: 1 tab Levothyroxine Sodium (Synthroid -) 125 mcg PO DAILY@0700 [facility] Last Admin: 02/08/18 06:36 Dose: 125 mcg Metoprolol Tartrate (Lopressor -) 12.5 mg PO DAILY [facility] Last Admin: 11/03/17 11:02 Dose: 12.5 mg Morphine Sulfate (Morphine Injection -) 2 mg IVPUSH Q6H PRN PRN Reason: PAIN LEVEL 7 - 10 Last Admin: 11/02/17 21:56 Dose: 2 mg Nitroglycerin (Nitrostat -) 0.4 mg SL DAILY PRN PRN Reason: FOR CHEST PAIN Oxycodone HCl (Roxicodone -) 2.5 mg PO Q6H PRN PRN Reason: PAIN LEVEL 6-10 Last Admin: 11/03/17 11:30 Dose: 2.5 mg Pantoprazole Sodium (Protonix -) 40 mg PO DAILY [facility] Last Admin: 11/03/17 11:01 Dose: 40 mg Polyethylene Glycol (Miralax (For Daily Use) -) 17 gm PO DAILY [facility] Last Admin: 11/03/17 11:03 Dose: Not Given Senna (Senna -) 1 tab PO HS [facility] Last Admin: 11/02/17 21:58 Dose: Not Given Warfarin Sodium (Coumadin -) 3 mg PO DAILY@1800 [facility] - Objective Vital Signs: Vital Signs Temperature 99.2 F 11/03/17 09:34 Pulse Rate 108 H 11/03/17 09:34 Respiratory Rate 18 11/03/17 09:34 Blood Pressure 139/92 11/03/17 09:34 O2 Sat by Pulse Oximetry (%) 96 11/02/17 21:00 Constitutional: Yes: No Distress, Calm Cardiovascular: Yes: Regular Rate and Rhythm Respiratory: Yes: Diminished Gastrointestinal: Yes: Normal Bowel Sounds, Soft. No: Distention, Tenderness Extremities: Yes: Amputation, Other (left hand dressing) Edema: No Labs: CBC, BMP 11/02/17 07:28 11/03/17 06:20 INR, PTT INR 1.82 (0.82-1.09) H 11/03/17 06:20 Problem List - Problems (1) Cellulitis and abscess of hand Code(s): L03.119 - CELLULITIS OF UNSPECIFIED PART OF LIMB; L02.519 - CUTANEOUS ABSCESS OF UNSPECIFIED HAND (2) Anemia Code(s): D64.9 - ANEMIA, UNSPECIFIED Qualifiers: Anemia type: other cause Other causes of anemia: chronic disease, kidney (3) Atrial fibrillation Code(s): I48.91 - UNSPECIFIED ATRIAL FIBRILLATION Qualifiers: Atrial fibrillation type: unspecified Qualified Code(s): I48.91 - Unspecified atrial fibrillation (4) DM type 2 causing complication Code(s): E11.8 - TYPE 2 DIABETES MELLITUS WITH UNSPECIFIED COMPLICATIONS (5) ESRD (end stage renal disease) on dialysis Code(s): N18.6 - END STAGE RENAL DISEASE; Z99.2 - DEPENDENCE ON RENAL DIALYSIS Assessment/Plan Abx per ID continue other meds monitor bgm-- on Levemir unsure that hypotension would be due to Oxycodone-- very small dose Pt did not receive Morphine today R/O sepsis Cardiac enzymes sent Will consult cardiology coumadin per inr- resume pain control dialysis per renal will follow
--- NOTE | 2017-11-03 13:08 | RAPID ---
<He Cuevas - Last Filed: 11/04/17 05:47> Physical Examination Vital Signs: Vital Signs Temperature 99.2 F 11/03/17 09:34 Pulse Rate 108 H 11/03/17 09:34 Respiratory Rate 18 11/03/17 09:34 Blood Pressure 139/92 11/03/17 09:34 O2 Sat by Pulse Oximetry (%) 96 11/02/17 21:00 Labs: CBC, ELENI 11/02/17 07:28 11/03/17 06:20 Rapid Response - Rapid Response Assessment: rapid response was called for due to low blood pressure 60/20 with HR 118 , she complains of diaphoretic , sweating and the lightheadedness but denies any dizziness, blurry vision,fever, chills, N/V/D/C. she denies any chest pain or palpitations, SOB. Vitals 12.30 BP 97/52, 115, RR 20, 98.3 , sat 95% 2 L NC 68/27 T 124/71, 118 66/34 ,114 157/68 , 118 143/92 , 122 98/63 , 112 144/45 , 109 PE Head : NC/At , trachea mid line . no jvd Heart: Irregular , normal S1, S2 , Lungs :CTA B/L no wheezes Neuro : AAOx3 , no focal deficit # Hypotension possible 2/2 Meds SE vs infection vs low oral intake vs volum depletion * had surgery amputation 2 days ago left fingers * on abx cefimpim and flagyl * received Metoprolol 12.5, Oxycodone 2.5, Tylenol 650 mg po around 11 order the following * CXR * EKG * Trop * cbc with diff * P, MG * monitor BP * Transfer to ICU * contact PCP * continue abx * <Lindsey Gardner - Last Filed: 11/21/17 14:27> Physical Examination Vital Signs: Labs: ELENI TUCKER 11/21/17 05:00 11/21/17 05:00 Critical Care Total Critical Care Time (in minutes): 30 Critical Care Statement: The care of this patient involved high complexity decision making to prevent further life threatening deterioration of the patient 's condition and/or to evaluate & treat vital organ system(s) failure or risk of failure.
--- NOTE | 2017-11-03 13:11 | PN ---
Progress Note, Physician Chief Complaint: 2 year old woman with PMhx of ESRD on HD, Hypertension, CAD, DM2 on Insulin, PVD who presented with worsening hand pain. The patient has ESRD on HD. Had uneventful HD yesterday. She is feeling dizzy now. BP reported as 66 mm Hg Systolic. She was put immediately on Trendelenberg position, and IV Saline started. Hand ischemia/Pain.. S/p Hand surgery yesterday. On IV Abx. Blood sugar >200 mg/dL The patient says that she was not eating hospital food since she does not like it. - Current Medication List Current Medications: Active Medications Acetaminophen (Tylenol -) 650 mg PO Q4H PRN PRN Reason: BACK PAIN Last Admin: 11/03/17 11:30 Dose: 650 mg Aspirin (Asa -) 81 mg PO DAILY [facility] Last Admin: 11/03/17 11:02 Dose: 81 mg Atorvastatin Calcium (Lipitor -) 80 mg PO HS [facility] Last Admin: 11/02/17 21:57 Dose: 80 mg Calcium Acetate (Phoslo -) 667 mg PO DAILY [facility] Last Admin: 11/03/17 11:02 Dose: 667 mg Cyanocobalamin (Vitamin B12 -) 100 mcg PO DAILY [facility] Last Admin: 11/03/17 11:02 Dose: 100 mcg Docusate Sodium (Colace -) 100 mg PO DAILY [facility] Last Admin: 11/03/17 11:04 Dose: Not Given Cefepime HCl (Maxipime 1 Gm Premix Ivpb) 1 gm in 50 mls @ 100 mls/hr IVPB DAILY [facility] Last Admin: 11/03/17 11:01 Dose: 100 mls/hr Metronidazole (Flagyl 500mg Premixed Ivpb -) 500 mg in 100 mls @ 100 mls/hr IVPB Q8H-IV [facility] Last Admin: 11/03/17 09:42 Dose: 100 mls/hr Sodium Chloride (Normal Saline -) 500 mls @ 500 mls/hr IV ASDIR STA Stop: 11/03/17 13:53 Sodium Chloride (Normal Saline -) 1,000 mls @ 100 mls/hr IV ASDIR YOAN Insulin Aspart (Novolog Vial Sliding Scale -) 1 vial SQ BIDAC [facility] PRN Reason: Protocol Last Admin: 11/03/17 06:35 Dose: Not Given Insulin Detemir (Levemir Vial) 16 units SQ BID@0700,2200 [facility] Last Admin: 11/03/17 06:35 Dose: 16 units Lactobacillus Acidophilus (Bacid -) 1 tab PO DAILY [facility] Last Admin: 11/03/17 11:01 Dose: 1 tab Levothyroxine Sodium (Synthroid -) 125 mcg PO DAILY@0700 [facility] Last Admin: 11/03/17 06:36 Dose: 125 mcg Metoprolol Tartrate (Lopressor -) 12.5 mg PO DAILY [facility] Last Admin: 11/03/17 11:02 Dose: 12.5 mg Morphine Sulfate (Morphine Injection -) 2 mg IVPUSH Q6H PRN PRN Reason: PAIN LEVEL 7 - 10 Last Admin: 11/02/17 21:56 Dose: 2 mg Nitroglycerin (Nitrostat -) 0.4 mg SL DAILY PRN PRN Reason: FOR CHEST PAIN Oxycodone HCl (Roxicodone -) 2.5 mg PO Q6H PRN PRN Reason: PAIN LEVEL 6-10 Last Admin: 11/03/17 11:30 Dose: 2.5 mg Pantoprazole Sodium (Protonix -) 40 mg PO DAILY [facility] Last Admin: 11/03/17 11:01 Dose: 40 mg Polyethylene Glycol (Miralax (For Daily Use) -) 17 gm PO DAILY [facility] Last Admin: 11/03/17 11:03 Dose: Not Given Senna (Senna -) 1 tab PO HS [facility] Last Admin: 11/02/17 21:58 Dose: Not Given Warfarin Sodium (Coumadin -) 3 mg PO DAILY@1800 [facility] - Objective Vital Signs: Vital Signs Temperature 99.2 F 11/03/17 09:34 Pulse Rate 108 H 11/03/17 09:34 Respiratory Rate 18 11/03/17 09:34 Blood Pressure 139/92 11/03/17 09:34 O2 Sat by Pulse Oximetry (%) 96 11/02/17 21:00 Constitutional: Yes: [place], Moderate Distress HENT: Yes: Normocephalic Neck: Yes: Trachea Midline Cardiovascular: Yes: Pulse Irregular, S1, S2 Respiratory: Yes: CTA Bilaterally Gastrointestinal: Yes: Normal Bowel Sounds Genitourinary: No: CVA Tenderness - Left, CVA Tenderness - Right Extremities: Yes: Amputation (fingers and legs) Neurological: Yes: Alert Labs: CBC, BMP 11/02/17 07:28 11/03/17 06:20 INR, PTT INR 1.82 (0.82-1.09) H 11/03/17 06:20 Problem List - Problems (1) Cellulitis and abscess of hand Code(s): L03.119 - CELLULITIS OF UNSPECIFIED PART OF LIMB; L02.519 - CUTANEOUS ABSCESS OF UNSPECIFIED HAND (2) Flexor tenosynovitis of finger Code(s): M65.9 - SYNOVITIS AND TENOSYNOVITIS, UNSPECIFIED (3) Anemia Code(s): D64.9 - ANEMIA, UNSPECIFIED Qualifiers: Anemia type: other cause Other causes of anemia: chronic disease, kidney (4) Atrial fibrillation Code(s): I48.91 - UNSPECIFIED ATRIAL FIBRILLATION Qualifiers: Atrial fibrillation type: unspecified Qualified Code(s): I48.91 - Unspecified atrial fibrillation (5) CAD (coronary artery disease) Code(s): I25.10 - ATHSCL HEART DISEASE OF [place] CORONARY ARTERY W/O ANG PCTRS Qualifiers: Coronary Disease-Associated Artery/Lesion type: [place] artery [place] vs. transplanted heart: [place] heart Associated angina: without angina Qualified Code(s): I25.10 - Atherosclerotic heart disease of [place] coronary artery without angina pectoris (6) DM type 2 causing complication Code(s): E11.8 - TYPE 2 DIABETES MELLITUS WITH UNSPECIFIED COMPLICATIONS (7) ESRD on hemodialysis Code(s): N18.6 - END STAGE RENAL DISEASE; Z99.2 - DEPENDENCE ON RENAL DIALYSIS Assessment/Plan 72 year old woman with PMhx of ESRD on HD, Hypertension, CAD, DM on Insulin, PVD who presented with worsening hand pain. The patient became acutely hypotensive. No chest pain. No shortness of breath. No Hypoglycemia. On IV Antibiotics. No evidence of Hypovolemia. Patient started on IV Saline, with good hemodynamic response. The etiology of the sudden Hypotension not clear. But Sepsis seems to be the one to be ruled out. Next HD scheduled for tomorrow. Layla Evans MD
[2017-11-03] MEDS ORDERED: SODIUM CHLORIDE 250 ML IV STA (13:22)
--- NOTE | 2017-11-03 13:51 | PN ---
Progress Note, Physician History of Present Illness: Awake, alert Rapid response called earlier for hypotensive episode Afebrile WBC improved Wound c/s pending - Current Medication List Current Medications: Active Medications Acetaminophen (Tylenol -) 650 mg PO Q4H PRN PRN Reason: BACK PAIN Last Admin: 11/03/17 11:30 Dose: 650 mg Aspirin (Asa -) 81 mg PO DAILY [facility] Last Admin: 11/03/17 11:02 Dose: 81 mg Atorvastatin Calcium (Lipitor -) 80 mg PO HS [facility] Last Admin: 11/02/17 21:57 Dose: 80 mg Calcium Acetate (Phoslo -) 667 mg PO DAILY [facility] Last Admin: 11/03/17 11:02 Dose: 667 mg Cyanocobalamin (Vitamin B12 -) 100 mcg PO DAILY [facility] Last Admin: 11/03/17 11:02 Dose: 100 mcg Docusate Sodium (Colace -) 100 mg PO DAILY [facility] Last Admin: 11/03/17 11:04 Dose: Not Given Cefepime HCl (Maxipime 1 Gm Premix Ivpb) 1 gm in 50 mls @ 100 mls/hr IVPB DAILY [facility] Last Admin: 11/03/17 11:01 Dose: 100 mls/hr Metronidazole (Flagyl 500mg Premixed Ivpb -) 500 mg in 100 mls @ 100 mls/hr IVPB Q8H-IV [facility] Last Admin: 11/03/17 09:42 Dose: 100 mls/hr Insulin Aspart (Novolog Vial Sliding Scale -) 1 vial SQ BIDAC [facility] PRN Reason: Protocol Last Admin: 11/03/17 06:35 Dose: Not Given Insulin Detemir (Levemir Vial) 16 units SQ BID@0700,2200 [facility] Last Admin: 11/03/17 06:35 Dose: 16 units Lactobacillus Acidophilus (Bacid -) 1 tab PO DAILY [facility] Last Admin: 11/03/17 11:01 Dose: 1 tab Levothyroxine Sodium (Synthroid -) 125 mcg PO DAILY@0700 [facility] Last Admin: 11/03/17 06:36 Dose: 125 mcg Metoprolol Tartrate (Lopressor -) 12.5 mg PO DAILY [facility] Last Admin: 11/03/17 11:02 Dose: 12.5 mg Morphine Sulfate (Morphine Injection -) 2 mg IVPUSH Q6H PRN PRN Reason: PAIN LEVEL 7 - 10 Last Admin: 11/02/17 21:56 Dose: 2 mg Nitroglycerin (Nitrostat -) 0.4 mg SL DAILY PRN PRN Reason: FOR CHEST PAIN Oxycodone HCl (Roxicodone -) 2.5 mg PO Q6H PRN PRN Reason: PAIN LEVEL 6-10 Last Admin: 11/03/17 11:30 Dose: 2.5 mg Pantoprazole Sodium (Protonix -) 40 mg PO DAILY [facility] Last Admin: 11/03/17 11:01 Dose: 40 mg Polyethylene Glycol (Miralax (For Daily Use) -) 17 gm PO DAILY [facility] Last Admin: 11/03/17 11:03 Dose: Not Given Senna (Senna -) 1 tab PO HS [facility] Last Admin: 11/02/17 21:58 Dose: Not Given Warfarin Sodium (Coumadin -) 3 mg PO DAILY@1800 [facility] - Objective Vital Signs: Vital Signs Temperature 98.3 F 11/03/17 12:30 Pulse Rate 102 H 11/03/17 13:32 Respiratory Rate 20 11/03/17 12:30 Blood Pressure 136/81 11/03/17 13:32 O2 Sat by Pulse Oximetry (%) 96 11/02/17 21:00 Constitutional: Yes: No Distress, Obese Eyes: Yes: Conjunctiva Clear Cardiovascular: Yes: Regular Rate and Rhythm, S1, S2 Respiratory: Yes: CTA Bilaterally Gastrointestinal: Yes: Normal Bowel Sounds, Soft, Abdomen, Obese. No: Tenderness Extremities: Yes: Other (dressing in place L hand) Labs: CBC, BMP 11/02/17 07:28 11/03/17 06:20 INR, PTT INR 1.82 (0.82-1.09) H 11/03/17 06:20 Assessment/Plan Tenosynovitis , gangrene L hand Leukocytosis-improved ESRD Await wound c/s Continue cefepime / flagyl Vancomycin level noted
[2017-11-03] MEDS ORDERED: Insulin (LOG) Aspart 100 UNITS/ML VIAL SQ ONE (13:52)
[2017-11-03] MEDS ORDERED: INSULIN (NOVOLOG) ASPART 100 UNITS/ML 10ML VIAL ONE (13:56)
[2017-11-03 14:21] LABS: BASO % 0.9 % (0-2.0); EOS % 2.4 % (0-4.5); HEMATOCRIT 38.6 % (32.4-45.2); HEMOGLOBIN 11.5 GM/dL (10.7-15.3); LYMPH % 18.2 % (8-40); MCH 29.8 pg (25.7-33.7); MCHC 29.9 g/dl (32.0-36.0); MEAN CELL VOLUME 99.5 fl (80-96); MEAN PLT VOLUME 7.8 fl (7.5-11.1); MONO % 7.6 % (3.8-10.2); NEUT % 70.9 % (42.8-82.8); PLATELET COUNT 383 K/MM3 (134-434); RBC 3.87 M/mm3 (3.60-5.2); WHITE BLOOD COUNT 8.4 K/mm3 (4.0-10.0)
[2017-11-03 14:49] LABS: PHOSPHOROUS 3.6 mg/dL (2.5-4.9)
[2017-11-03 14:50] LABS: MAGNESIUM 2.1 mg/dL (1.8-2.4)
--- NOTE | 2017-11-03 15:35 | EKG ---
Test Reason : Blood Pressure : / mmHG Vent. Rate : 107 BPM Atrial Rate : 108 BPM P-R Int : 000 ms QRS Dur : 088 ms QT Int : 364 ms P-R-T Axes : 000 088 -13 degrees QTc Int : 485 ms ATRIAL FIBRILLATION WITH RAPID VENTRICULAR RESPONSE CANNOT RULE OUT ANTERIOR INFARCT (CITED ON OR BEFORE 02-SEP-2017) ABNORMAL ECG WHEN COMPARED WITH ECG OF 30-OCT-2017 17:15, T WAVE INVERSION NO LONGER EVIDENT IN ANTERIOR LEADS NONSPECIFIC T WAVE ABNORMALITY, WORSE IN LATERAL LEADS QT HAS LENGTHENED Confirmed by SHIN BERNARDO MD ([id number]) on 11/03/2017 3:35:36 PM Referred By: JUNIOR JORGE Confirmed By:SHIN BERNARDO MD
[2017-11-03] MEDS ORDERED: WARFARIN NA 3 MG TABLET PO SCH (18:00)
[2017-11-03] MEDS ORDERED: MORPHINE SULFATE 10 MG/1 ML *VIAL IVPUSH PRN (18:46)
[2017-11-03] MEDS: SENNOSIDES 8.6MG TABLET (FP) PO SCH (22:38)
[2017-11-03] MEDS: ATORVASTATIN CA 80 MG TABLET (FP) PO SCH (22:38)
[2017-11-04] MEDS: INSULIN SLIDING SCALE (NOVOLOG) 1 VIAL SQ SCH ×3 (06:04→18:34)
[2017-11-04] MEDS: INSULIN DETEMIR 100 UNITS/ML MDV SQ SCH ×2 (06:04→22:16)
[2017-11-04] MEDS: LEVOTHYROXINE NA 125 MCG TABLET (FP) PO SCH (06:05)
[2017-11-04 06:13] LABS: BASO % 0.9 % (0-2.0); HEMATOCRIT 33.1 % (32.4-45.2); HEMOGLOBIN 10.5 GM/dL (10.7-15.3); LYMPH % 16.9 % (8-40); MCH 30.7 pg (25.7-33.7); MCHC 31.7 g/dl (32.0-36.0); MEAN CELL VOLUME 96.8 fl (80-96); MEAN PLT VOLUME 8.2 fl (7.5-11.1); MONO % 6.9 % (3.8-10.2); NEUT % 73.3 % (42.8-82.8); PLATELET COUNT 346 K/MM3 (134-434); RBC 3.42 M/mm3 (3.60-5.2)
[2017-11-04] MEDS: ACETAMINOPHEN 325 MG TABLET (FP) PO PRN ×3 (06:17→21:09)
[2017-11-04 06:26] LABS: INR 2.09 (0.82-1.09); PROTHROMBIN TIME (PATIENT) 23.6 SEC (9.98-11.88)
[2017-11-04 06:43] LABS: CHLORIDE 101 mmol/L (98-107); POTASSIUM 4.7 mmol/L (3.5-5.1); SODIUM 138 mmol/L (136-145)
[2017-11-04 06:52] LABS: ALK PHOS 147 U/L (45-117); ANION GAP 11 (8-16); BILIRUBIN,TOTAL 0.5 mg/dL (0.2-1.0); BLOOD UREA NITROGEN 42 mg/dL (7-18); CALCIUM 7.1 mg/dL (8.5-10.1); CO2 26 mmol/L (21-32); CREATININE 4.7 mg/dL (0.55-1.02); GLUCOSE,RANDOM 181 mg/dL (74-106); SGOT/AST 18 U/L (15-37); SGPT/ALT 24 U/L (12-78); TOT PROT 5.3 g/dl (6.4-8.2)
--- NOTE | 2017-11-04 07:15 | CONS ---
DATE OF CONSULTATION: 11/03/2017 CARDIOLOGY CONSULTATION LOCATION: CCU TIME SPENT: 10 p.m. to 11:15 p.m. HISTORY OF PRESENT ILLNESS: The patient is a 72-year-old female with history of diabetes mellitus with multisystem involvement, peripheral arterial disease, diabetic retinopathy, neuropathy, end-stage renal disease (dialysis dependent), history of coronary artery disease, status post multivessel PCI and stenting, severe left ventricular systolic dysfunction, status post ICD/pacemaker, permanent atrial fibrillation, peripheral arterial disease, hypertension, hypercholesterolemia. The patient was admitted with gangrenous changes involving the left middle finger. She also had cellulitis involving the dorsum of the left hand with pregangrenous changes involving the 2nd and 4th fingers. She underwent amputation of the middle finger and partial amputations of the 2nd and 4th fingers. Since admission, the patient had 3 episodes of diaphoresis and weakness. On questioning, they happened several minutes after receiving IV morphine for pain. The patient has significant arterial disease and blood pressure recordings have always been difficult. No history of chest pain or discomfort, either at rest or with movement. No history of dyspnea, paroxysmal nocturnal dyspnea or orthopnea. There is history of lightheadedness after receiving morphine. No history of presyncope or syncope. PAST MEDICAL HISTORY: As mentioned in the history of present illness. PAST SURGICAL HISTORY: 1. Status post tonsillectomy. 2. Status post surgery for right rotator cuff tear. 3. Status post hysterectomy. 4. Left breast lumpectomy for apparent abscess. 5. Partial amputation of the left foot. 6. Right above-knee amputation for gangrenous changes. 7. Status post ICD/permanent pacemaker. 8. Status post AV fistula for dialysis. SOCIAL HISTORY: The patient is a . She has 1 daughter and 2 sons. She has never smoked. She is a social drinker. FAMILY HISTORY: Father at age 64 of cancer of the colon. Mother at age 96. She was known to have angina pectoris. She has 1 brother who has carcinoma of the bladder. ALLERGIES: 1. ADHESIVE TAPE. 2. AMOXICILLIN. 3. AUGMENTIN. CURRENT MEDICATIONS: 1. Tylenol 650 mg q.4 h. p.r.n. 2. Maxipime 1 g IV. 3. Flagyl 500 mg IV q.8 h. 4. Warfarin 4 mg p.o. daily. 5. Bacid 1 tablet p.o. daily. 6. Metoprolol tartrate 12.5 mg p.o. daily. 7. Colace 100 mg p.o. daily. 8. MiraLAX 17 g p.o. daily. 9. Senna 1 tablet p.o. daily. 10. Lipitor 80 mg p.o. daily. 11. NovoLog insulin via sliding scale. 12. Levemir insulin 16 units subcutaneously b.i.d. a.c. 13. Aspirin 81 mg p.o. daily. 14. Morphine 1 mg q.6 h. p.r.n.; earlier had been on 2 mg. 15. PhosLo 667 mg p.o. daily. 16. Pantoprazole 40 mg p.o. daily. 17. Levothyroxine 125 mcg p.o. daily. 18. Vitamin B12 at 100 mcg p.o. daily. REVIEW OF SYSTEMS: Constitutional: No history of chills. History of diaphoresis following IV morphine. No history of any fever reported. No history of unintentional weight loss. HEENT: No history of headaches. History of diabetic retinopathy, requiring laser treatment. No history of epistaxis, hoarseness, tinnitus or deafness reported. Cardiovascular: See history of present illness. Respiratory: No history of cough, expectoration or hemoptysis. Gastrointestinal: No history of nausea, vomiting, melena or hematemesis. No history of abdominal pain or discomfort reported. History of constipation. Neurological: No history of seizures or syncope. No history of focal weakness. Genitourinary: History of end-stage renal disease, dialysis dependent. Endocrine: See history of present illness. History of partial thyroidectomy, history of [place] thyroiditis. PHYSICAL EXAMINATION: General: A 72-year-old female at the time of examination was in no acute distress. No pallor, cyanosis, clubbing or jaundice. Skin: Warm and dry. No diaphoresis was noted. Vital Signs: Blood pressure could not be recorded because of arterial disease involving both upper extremities. Pulse was 92 beats per minute and irregularly irregular. Neck: Supple. No jugular venous distention. Carotids were weak. No bruits were heard. No thyromegaly was present. There was a well-healed anterior surgical scar. Heart: PMI was in the 5th intercostal space. No heaves or thrills. S1 was variable. S2 was normal. No murmur or gallops were appreciated. Lungs: Clear on auscultation. Abdomen: Soft, obese, nontender. No hepatosplenomegaly or palpable masses were felt. Bowel sounds were decreased. No bruits were heard. Extremities: Right above-knee amputation. Left lower extremity with partial amputation of the left foot. The left hand was bandaged. LABORATORY DATA: CBC on November 03, 2017: WBC count 8400, hemoglobin 11.5 g/dL; platelet count 383,000; differential was normal. Coagulation: INR was 1.82. Chemistry: Random glucose 147 mg/dL. Troponin 0.10 and 0.13. Total CK was 37. IMAGING: X-ray of the chest on October 30, 2017, impression: Cardiomegaly with mild vascular engorgement. Right pacemaker and double-lumen catheter on the left side. ELECTROCARDIOGRAM: October 30, 2017: Atrial fibrillation with moderate ventricular response, right axis deviation, poor R-wave progression in leads V1 through V3, anteroseptal wall myocardial infarction of indeterminate age cannot be excluded. Possible high lateral wall myocardial infarction of indeterminate age. Diffuse ST and T-wave abnormalities. IMPRESSION: 1. Recurrent episodes of diaphoresis and weakness, etiology: A. Secondary to intravenous morphine. 2. Coronary artery disease, status post multivessel percutaneous coronary intervention/stenting, angina pectoris currently stable. 3. Permanent atrial fibrillation with controlled ventricular response. 4. Peripheral arterial disease. 5. Diabetes mellitus with multisystem involvement. 6. Diabetic retinopathy. 7. Diabetic neuropathy. 8. Diabetic nephropathy. 9. End-stage renal disease, dialysis dependent. 10. Status post right above-knee amputation. 11. Cellulitis and gangrenous changes involving the left hand, requiring surgery. 12. Partial amputation of the left foot. 13. Severe left ventricular systolic dysfunction. 14. Status post implantable cardioverter-defibrillator for 15. Mild elevation of troponin, most probably related to end-stage renal disease. RECOMMENDATIONS: 1. Avoid IV morphine. 2. Continue current medications. 3. The patient may require cautious hydration. 4. Follow-up ECG and enzymes. 5. Bedside echocardiogram. 6. Follow-up comprehensive metabolic profile and CBC. PROGNOSIS: Guarded. Thank you for your referral. MERVIN CHANDLER M.D. [id number]
[2017-11-04] MEDS ORDERED: PT OWN MED DRAWER 7, Y5N ONE ×2 (08:50→22:18)
--- NOTE | 2017-11-04 09:00 | PN ---
Progress Note (short form) - Note Progress Note: s/p hand surgery 10/31 transferred to ICU yesterday for hypotension no fevers no sob Vital Signs Period Temp Pulse Resp BP Sys/Cordero Pulse Ox Last 24 Hr 98 F-99.2 F 80-122 18-20 58-157/27-92 93-98 cor-rrr lungs clear abd soft,nt dressing intact CBC, BMP 11/04/17 05:05 11/04/17 05:05 Microbiology 10/30/17 16:28 Blood - Peripheral Venous Blood Culture - Preliminary NO GROWTH OBTAINED AFTER 96 HOURS, INCUBATION TO CONTINUE FOR 1 DAYS. 10/30/17 15:43 Blood - Peripheral Venous Blood Culture - Preliminary NO GROWTH OBTAINED AFTER 96 HOURS, INCUBATION TO CONTINUE FOR 1 DAYS. 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 Problem List - Problems (1) Flexor tenosynovitis of finger Code(s): M65.9 - SYNOVITIS AND TENOSYNOVITIS, UNSPECIFIED (2) Cellulitis of left hand Code(s): L03.114 - CELLULITIS OF LEFT UPPER LIMB (3) Diabetes Code(s): E11.9 - TYPE 2 DIABETES MELLITUS WITHOUT COMPLICATIONS Qualifiers: Diabetes mellitus type: type 1 Diabetes mellitus complication status: with circulatory complication Diabetes mellitus complication detail: with other circulatory complications Qualified Code(s): E10.59 - Type 1 diabetes mellitus with other circulatory complications (4) ESRD on hemodialysis Code(s): N18.6 - END STAGE RENAL DISEASE; Z99.2 - DEPENDENCE ON RENAL DIALYSIS
[2017-11-04] MEDS: ASPIRIN 81 MG CHEWABLE TABLETS PO SCH (09:03)
[2017-11-04] MEDS: DOCUSATE SODIUM 100 MG CAPSULE (FP) PO SCH (09:03)
[2017-11-04] MEDS: PANTOPRAZOLE 40 MG TABLET (FP) PO SCH (09:03)
[2017-11-04] MEDS: LACTOBACILLUS ACIDOPHILUS 1 EACH TAB (FP) PO SCH (09:03)
[2017-11-04] MEDS: CALCIUM ACETATE 667 MG CAPSULE (FP) PO SCH (09:03)
[2017-11-04] MEDS: CYANOCOBALAMIN (VITAMIN B-12) 100 MCG TABLET PO SCH (09:03)
[2017-11-04] MEDS: POLYETHYLENE GLYCOL 3350 119 GM BTL PO SCH (09:04)
--- NOTE | 2017-11-04 09:35 | PN ---
Progress Note (short form) - Note Progress Note: seen/ examined today chart reviewed events noted Discussed with Dr. Das. will d/c lipitor for now c/c- nausea denies cp/sob/abd pain. Vital Signs Temp 98 F 11/04/17 08:38 Pulse 108 H 11/04/17 08:38 Resp 20 11/04/17 08:51 BP 109/38 11/04/17 08:38 Pulse Ox 98 11/04/17 08:51 Intake & Output 11/03/17 11/03/17 11/04/17 11:59 23:59 11:59 Intake Total 620 170 135 Balance 620 170 135 Weight 195 lb 12.8 oz Intake: IV 20 35 IVSL #2 20 35 IVPB 100 150 100 Oral 520 Other: Voiding Method Diaper Diaper Diaper # Unmeasured Voids Void 1 Weight Measurement Method Patient Lift Scale Active Medications Acetaminophen (Tylenol -) 650 mg PO Q4H PRN PRN Reason: BACK PAIN Last Admin: 11/04/17 06:17 Dose: 650 mg Aspirin (Asa -) 81 mg PO DAILY [facility] Last Admin: 11/04/17 09:03 Dose: 81 mg Calcium Acetate (Phoslo -) 667 mg PO DAILY [facility] Last Admin: 11/04/17 09:03 Dose: 667 mg Cyanocobalamin (Vitamin B12 -) 100 mcg PO DAILY [facility] Last Admin: 11/04/17 09:03 Dose: 100 mcg Docusate Sodium (Colace -) 100 mg PO DAILY [facility] Last Admin: 11/04/17 09:03 Dose: 100 mg Tigecycline 100 mg/ Dextrose 100 mls @ 100 mls/hr IVPB ONCE ONE PRN Reason: Protocol Stop: 11/04/17 10:02 Tigecycline 50 mg/ Dextrose 100 mls @ 100 mls/hr IVPB BID [facility] PRN Reason: Protocol Daptomycin 500 mg/ Sodium (Chloride) 50 mls @ 50 mls/hr IVPB Q48H [facility] PRN Reason: Protocol Insulin Aspart (Novolog Vial Sliding Scale -) 1 vial SQ TIDAC [facility] PRN Reason: Protocol Last Admin: 11/04/17 06:04 Dose: 3 units Insulin Detemir (Levemir Vial) 16 units SQ BID@0700,2200 [facility] Last Admin: 11/04/17 06:04 Dose: 16 units Lactobacillus Acidophilus (Bacid -) 1 tab PO DAILY [facility] Last Admin: 11/04/17 09:03 Dose: 1 tab Levothyroxine Sodium (Synthroid -) 125 mcg PO DAILY@0700 [facility] Last Admin: 11/04/17 06:05 Dose: 125 mcg Metoprolol Tartrate (Lopressor -) 12.5 mg PO DAILY [facility] Last Admin: 11/03/17 11:02 Dose: 12.5 mg Morphine Sulfate (Morphine Injection -) 1 mg IVPUSH Q6H PRN PRN Reason: PAIN LEVEL 7 - 10 Nitroglycerin (Nitrostat -) 0.4 mg SL DAILY PRN PRN Reason: FOR CHEST PAIN Ondansetron HCl (Zofran Injection) 4 mg IVPB Q6H PRN PRN Reason: NAUSEA Pantoprazole Sodium (Protonix -) 40 mg PO DAILY [facility] Last Admin: 11/04/17 09:03 Dose: 40 mg Polyethylene Glycol (Miralax (For Daily Use) -) 17 gm PO DAILY [facility] Last Admin: 11/04/17 09:04 Dose: Not Given Senna (Senna -) 1 tab PO HS [facility] Last Admin: 11/03/17 22:38 Dose: Not Given Warfarin Sodium (Coumadin -) 4 mg PO DAILY@1800 [facility] CBC, BMP 11/04/17 05:05 11/04/17 05:05 INR, PTT INR 2.09 (0.82-1.09) H 11/04/17 05:05 Microbiology 10/30/17 16:28 Blood Culture - Preliminary Blood - Peripheral Venous NO GROWTH OBTAINED AFTER 96 HOURS, INCUBATION TO CONTINUE FOR 1 DAYS. 10/30/17 15:43 Blood Culture - Preliminary Blood - Peripheral Venous NO GROWTH OBTAINED AFTER 96 HOURS, INCUBATION TO CONTINUE FOR 1 DAYS. 10/31/17 16:30 Wound Culture - Final Hand - Left Klebsiella Pneumoniae - Esbl Vr Ec Faecalis Physical Examination Constitutional: Yes: No Distress, Comfortable Eyes: Yes: Conjunctiva Clear Neck: Yes: Supple/ no jvd Cardiovascular: Yes: Regular Rate and Rhythm Respiratory: Yes: Diminished (at bases) Gastrointestinal: Yes: Soft Musculoskeletal: Yes: Other Extremities: Yes: Amputation (s/p right-- AKA), Other s/p left hand surgery- dressing + Edema: No Neurological: Yes: Alert Psychiatric: Yes: Alert a/p Tenosynovitis , gangrene L hand-- s/p surgery 2/5 resistant bugs abx per i/d d/d lipitor monitor bgm. dialysis per renal monitor inr discussed with Dr. Das Strict contact isolation precautions. continue present care. will follow discussed with nursing staff also. Problem List - Problems (1) Cellulitis and abscess of hand Code(s): L03.119 - CELLULITIS OF UNSPECIFIED PART OF LIMB; L02.519 - CUTANEOUS ABSCESS OF UNSPECIFIED HAND (2) Anemia in ESRD (end-stage renal disease) Code(s): N18.6 - END STAGE RENAL DISEASE; D63.1 - ANEMIA IN CHRONIC KIDNEY DISEASE (3) Atrial fibrillation Code(s): I48.91 - UNSPECIFIED ATRIAL FIBRILLATION Qualifiers: Atrial fibrillation type: unspecified Qualified Code(s): I48.91 - Unspecified atrial fibrillation (4) CAD (coronary artery disease) Code(s): I25.10 - ATHSCL HEART DISEASE OF [place] CORONARY ARTERY W/O ANG PCTRS Qualifiers: Coronary Disease-Associated Artery/Lesion type: [place] artery [place] vs. transplanted heart: [place] heart Associated angina: without angina Qualified Code(s): I25.10 - Atherosclerotic heart disease of [place] coronary artery without angina pectoris (5) ESRD (end stage renal disease) on dialysis Code(s): N18.6 - END STAGE RENAL DISEASE; Z99.2 - DEPENDENCE ON RENAL DIALYSIS (6) HTN (hypertension) Code(s): I10 - ESSENTIAL (PRIMARY) HYPERTENSION Qualifiers: Hypertension type: essential hypertension Qualified Code(s): I10 - Essential (primary) hypertension (7) History of percutaneous coronary intervention Code(s): Z98.890 - OTHER SPECIFIED POSTPROCEDURAL STATES (8) Status post transmetatarsal amputation of left foot Code(s): Z89.432 - ACQUIRED ABSENCE OF LEFT FOOT (9) Unilateral AKA Code(s): Z89.619 - ACQUIRED ABSENCE OF UNSPECIFIED LEG ABOVE KNEE
--- NOTE | 2017-11-04 09:57 | PN ---
Progress Note, Physician Chief Complaint: left hand wet and dry gangrene History of Present Illness: 72 yo female PMH HTN, DM, HLD, PAD, CHF, A-fib, defibrillator placement,pvd, ESRD (Dialysis on M,W,F- left chest tunnel catheter ), Right AKA amputation, Left foot amputation, and Left hand 2nd-4th digit partial amputation (02/2017) who presents with left hand pain. found to have flexor tenosynovitis and a combination of wet and dry gangrene. She was tranferred to the ICU for stabilization and monitoring after taking medication and experienceing a drop in blood pressure. Report pain was adequately controlled overnight. - Current Medication List Current Medications: Active Medications Acetaminophen (Tylenol -) 650 mg PO Q4H PRN PRN Reason: BACK PAIN Last Admin: 11/04/17 06:17 Dose: 650 mg Aspirin (Asa -) 81 mg PO DAILY [facility] Last Admin: 11/04/17 09:03 Dose: 81 mg Calcium Acetate (Phoslo -) 667 mg PO DAILY [facility] Last Admin: 11/04/17 09:03 Dose: 667 mg Cyanocobalamin (Vitamin B12 -) 100 mcg PO DAILY [facility] Last Admin: 11/04/17 09:03 Dose: 100 mcg Docusate Sodium (Colace -) 100 mg PO DAILY [facility] Last Admin: 11/04/17 09:03 Dose: 100 mg Tigecycline 100 mg/ Dextrose 100 mls @ 100 mls/hr IVPB ONCE ONE PRN Reason: Protocol Stop: 11/04/17 10:02 Tigecycline 50 mg/ Dextrose 100 mls @ 100 mls/hr IVPB BID [facility] PRN Reason: Protocol Daptomycin 500 mg/ Sodium (Chloride) 50 mls @ 50 mls/hr IVPB Q48H [facility] PRN Reason: Protocol Insulin Aspart (Novolog Vial Sliding Scale -) 1 vial SQ TIDAC [facility] PRN Reason: Protocol Last Admin: 11/04/17 06:04 Dose: 3 units Insulin Detemir (Levemir Vial) 16 units SQ BID@0700,2200 [facility] Last Admin: 11/04/17 06:04 Dose: 16 units Lactobacillus Acidophilus (Bacid -) 1 tab PO DAILY [facility] Last Admin: 11/04/17 09:03 Dose: 1 tab Levothyroxine Sodium (Synthroid -) 125 mcg PO DAILY@0700 [facility] Last Admin: 11/04/17 06:05 Dose: 125 mcg Metoprolol Tartrate (Lopressor -) 12.5 mg PO DAILY [facility] Last Admin: 11/03/17 11:02 Dose: 12.5 mg Morphine Sulfate (Morphine Injection -) 1 mg IVPUSH Q6H PRN PRN Reason: PAIN LEVEL 7 - 10 Nitroglycerin (Nitrostat -) 0.4 mg SL DAILY PRN PRN Reason: FOR CHEST PAIN Ondansetron HCl (Zofran Injection) 4 mg IVPB Q6H PRN PRN Reason: NAUSEA Pantoprazole Sodium (Protonix -) 40 mg PO DAILY [facility] Last Admin: 11/04/17 09:03 Dose: 40 mg Polyethylene Glycol (Miralax (For Daily Use) -) 17 gm PO DAILY [facility] Last Admin: 11/04/17 09:04 Dose: Not Given Senna (Senna -) 1 tab PO HS [facility] Last Admin: 11/03/17 22:38 Dose: Not Given Warfarin Sodium (Coumadin -) 4 mg PO DAILY@1800 [facility] - Objective Vital Signs: Vital Signs Temperature 98 F 11/04/17 08:38 Pulse Rate 108 H 11/04/17 08:38 Respiratory Rate 20 11/04/17 08:51 Blood Pressure 109/38 11/04/17 08:38 O2 Sat by Pulse Oximetry (%) 98 11/04/17 08:51 Vital Signs Period Temp Pulse Resp BP Sys/Cordero Pulse Ox Last 24 Hr 98 F-98.6 F 80-122 20-20 58-157/27-92 93-98 Intake & Output 11/03/17 11/04/17 11/04/17 23:59 07:59 15:59 Intake Total 20 135 Balance 20 135 Intake: IV 20 35 IVSL #2 20 35 IVPB 100 Other: Voiding Method Diaper Diaper Constitutional: Yes: Well Nourished, No Distress Eyes: Yes: Conjunctiva Clear, EOM Intact HENT: Yes: Atraumatic, Pharyngeal Erythema Neck: Yes: Supple, Trachea Midline Cardiovascular: Yes: Regular Rate and Rhythm, S1, S2. No: Murmur Respiratory: Yes: Regular, CTA Bilaterally Gastrointestinal: Yes: Normal Bowel Sounds, Soft. No: Tenderness Musculoskeletal: Yes: Joint Stiffness Extremities: No: Cool, Cyanosis Edema: Yes Wound/Incision: Yes: Clean/Dry, Dressing Removed (Dressig replaced), Unapproximated (Right middle MCP joint open 1.2cm). No: Draining, Reddened, Bleeding Neurological: Yes: Alert, Oriented Psychiatric: Yes: Alert, Oriented Labs: CBC, BMP 11/04/17 05:05 11/04/17 05:05 INR, PTT INR 2.09 (0.82-1.09) H 11/04/17 05:05 Microbiology 10/30/17 16:28 Blood - Peripheral Venous Blood Culture - Preliminary NO GROWTH OBTAINED AFTER 96 HOURS, INCUBATION TO CONTINUE FOR 1 DAYS. 10/30/17 15:43 Blood - Peripheral Venous Blood Culture - Preliminary NO GROWTH OBTAINED AFTER 96 HOURS, INCUBATION TO CONTINUE FOR 1 DAYS. 10/31/17 16:30 Hand - Left Wound Culture - Final Klebsiella Pneumoniae - Esbl Vr Ec Faecalis Problem List - Problems (1) Flexor tenosynovitis of finger Assessment/Plan: 72 yo female MMP including Afib on coumadin, DM type 2 and ESRD, Wet gangrene and flexor tenosynovitis left middle finger, dry gangrene of index and ring fingers, poor distal circulation on duplex with PVR left arm. POD#4 s/p Left middle finger irrigation and debridement of flexor tenosynovitis and revision amputation of index middle and ring fingers. f/u cultures continue IV antibiotics elevation of left arm above heart adequate analgesia Will need discharge with VNS for daily dressing Dressing change daily Wound measurement: left middle open MCP 1.2x1.2x0.2cm, clean no purulent drainage Dressing instructions: open MCP, Xeroform, 4X4 gauze sponges, loose kerlex and coban wrap PT evaluation This patient is in guarded condition. Time spent reviewing chart, examining patient, talking with providers and/or family and documentation is 35 minutes Code(s): M65.9 - SYNOVITIS AND TENOSYNOVITIS, UNSPECIFIED (2) Cellulitis and abscess of hand Code(s): L03.119 - CELLULITIS OF UNSPECIFIED PART OF LIMB; L02.519 - CUTANEOUS ABSCESS OF UNSPECIFIED HAND (3) Anemia in ESRD (end-stage renal disease) Code(s): N18.6 - END STAGE RENAL DISEASE; D63.1 - ANEMIA IN CHRONIC KIDNEY DISEASE (4) CAD (coronary artery disease) Code(s): I25.10 - ATHSCL HEART DISEASE OF [place] CORONARY ARTERY W/O ANG PCTRS Qualifiers: Coronary Disease-Associated Artery/Lesion type: [place] artery [place] vs. transplanted heart: [place] heart Associated angina: without angina Qualified Code(s): I25.10 - Atherosclerotic heart disease of [place] coronary artery without angina pectoris (5) DM type 2 causing complication Code(s): E11.8 - TYPE 2 DIABETES MELLITUS WITH UNSPECIFIED COMPLICATIONS (6) ESRD on hemodialysis Code(s): N18.6 - END STAGE RENAL DISEASE; Z99.2 - DEPENDENCE ON RENAL DIALYSIS (7) HTN (hypertension) Code(s): I10 - ESSENTIAL (PRIMARY) HYPERTENSION Qualifiers: Hypertension type: essential hypertension Qualified Code(s): I10 - Essential (primary) hypertension (8) Hypercholesterolemia Code(s): E78.00 - PURE HYPERCHOLESTEROLEMIA, UNSPECIFIED
[2017-11-04] MEDS ORDERED: TIGECYCLINE 100 MG in DEXTROSE 5%-WATER - 100 ML IVPB ONE (11:00)
--- NOTE | 2017-11-04 12:04 | PN ---
Progress Note (short form) - Note Progress Note: CCU. 72 year old white female known case of CAD, s/p multivessel PCI/stenting, severe LV systolic dysfunction, s/p ICD, permanent atrial fib, DM with multi system involement, ESRD-HD, hypertension admitted with gangreous changes involving the fingers of the left hand requiring amputations. H/o hypothyroidism. Patient was receiving iv morphine and developed 3 episodes of diaphoresis and hypotension, since morphine has been stopped no further episodes have occured. Had mild nausea, currently is been dialyzed. No SOB or chest pain or discomfort. Atrial fib. with controlled ventricular response. Active Medications Generic Name Dose Route Start Last Admin Trade Name Freq PRN Reason Stop Dose Admin Acetaminophen 650 mg 10/31/17 16:05 11/04/17 06:17 Tylenol - PO 650 mg Q4H PRN Administration BACK PAIN Aspirin 81 mg 11/01/17 10:00 11/04/17 09:03 Asa - PO 81 mg DAILY YOAN Administration Calcium Acetate 667 mg 11/01/17 10:00 11/04/17 09:03 Phoslo - PO 667 mg DAILY YOAN Administration Cyanocobalamin 100 mcg 11/01/17 10:00 11/04/17 09:03 Vitamin B12 - PO 100 mcg DAILY YOAN Administration Docusate Sodium 100 mg 11/01/17 10:00 11/04/17 09:03 Colace - PO 100 mg DAILY YOAN Administration Tigecycline 50 mg/ Dextrose 100 mls @ 100 mls/hr 11/04/17 22:00 IVPB BID YOAN Protocol Daptomycin 500 mg/ Sodium 100 mls @ 200 mls/hr 11/04/17 16:00 Chloride IVPB Q48H YOAN Protocol Insulin Aspart 1 vial 11/03/17 16:30 11/04/17 06:04 Novolog Vial Sliding Scale - SQ 3 units TIDAC YOAN Administration Protocol Insulin Detemir 16 units 11/02/17 12:17 11/04/17 06:04 Levemir Vial SQ 16 units BID@0700,2200 YOAN Administration Lactobacillus Acidophilus 1 tab 11/01/17 10:00 11/04/17 09:03 Bacid - PO 1 tab DAILY YOAN Administration Levothyroxine Sodium 125 mcg 11/01/17 07:00 11/04/17 06:05 Synthroid - PO 125 mcg DAILY@0700 YOAN Administration Metoprolol Tartrate 12.5 mg 11/01/17 10:00 11/03/17 11:02 Lopressor - PO 12.5 mg DAILY [facility] Administration Morphine Sulfate 1 mg 11/03/17 18:46 Morphine Injection - IVPUSH Q6H PRN PAIN LEVEL 7 - 10 Nitroglycerin 0.4 mg 10/31/17 16:05 Nitrostat - SL DAILY PRN FOR CHEST PAIN Ondansetron HCl 4 mg 11/04/17 09:31 Zofran Injection IVPB Q6H PRN NAUSEA Pantoprazole Sodium 40 mg 11/01/17 10:00 11/04/17 09:03 Protonix - PO 40 mg DAILY [facility] Administration Polyethylene Glycol 17 gm 11/01/17 10:00 11/04/17 09:04 Miralax (For Daily Use) - PO Not Given DAILY [facility] Senna 1 tab 10/31/17 22:00 11/03/17 22:38 Senna - PO Not Given [facility] Warfarin Sodium 4 mg 11/04/17 18:00 Coumadin - PO DAILY@1800 [facility] 72 year old female in no acute distress, no pallor or cyanosis. Last Vital Signs Temp Pulse Resp BP Pulse Ox 98 F 90 irregular 18 113/40 98 11/04/17 08:38 11/04/17 11:50 11/04/17 11:50 11/04/17 11:50 11/04/17 08:51 NECK: Supple, no JVD, carotids 1-2+, no bruits heards. anterior surgical scar. HEART: PMI in the 5th ICS, LINDA II/ 2nd right ICS. no gallops heard. LUNGS; Clear on auscultation. ABDOMEN: Soft, nontender, no organomegalty or masses felt. EXTREMITIES: Rt. AKA, left partial amputation of the foot. Left hand is bandaged. CBC, BMP 11/04/17 05:05 11/04/17 05:05 Troponin, BNP 11/03/17 11/03/17 11/04/17 13:35 20:00 05:05 Troponin I 0.10 H 0.13 H 0.13 H IMPRESSION: 1. CAD, s/p PCI/stenting, angina pectoris. 2. Elevated Troponins secondary to ESRD, cannot exclude myocardial ischemia. 3. ESRD-HD. 4. Severe LV systolic dysfunction. 5. ICD 6. Hypertension. 7. DM with multisystem involvement REcommendations: 1. Increase the dose of Lopressor to 12.5mg. BID on nondialysis days. 2. Continue therapy. 3. Bedside echocardiogram.
[2017-11-04] MEDS: METOPROLOL TARTRATE 25 MG TABLET (FP) PO SCH (13:53)
--- NOTE | 2017-11-04 14:02 | PN ---
Progress Note (short form) - Note Progress Note: Renal follow up for ESRD on HD Pt seen and examined at the bedside s/p dialysis earlier today tolerated it well had period of hypotension this am has 5/10 pain in hand Vital Signs Temperature 98 F 11/04/17 08:38 Pulse Rate 90 11/04/17 13:38 Respiratory Rate 18 11/04/17 13:38 Blood Pressure 143/50 11/04/17 13:38 O2 Sat by Pulse Oximetry (%) 98 11/04/17 08:51 Intake & Output 11/01/17 11/02/17 11/03/17 11/04/17 23:59 23:59 23:59 23:59 Intake Total 1710 1255 790 135 Balance 1710 1255 790 135 Weight 88.088 kg 89.086 kg 88.813 kg NAD RRR Right AKA CBC, BMP 11/04/17 05:05 11/04/17 05:05 Current Medications Acetaminophen (Tylenol -) 650 mg PO Q4H PRN PRN Reason: BACK PAIN Last Admin: 11/04/17 06:17 Dose: 650 mg Aspirin (Asa -) 81 mg PO DAILY [facility] Last Admin: 11/04/17 09:03 Dose: 81 mg Calcium Acetate (Phoslo -) 667 mg PO DAILY [facility] Last Admin: 11/04/17 09:03 Dose: 667 mg Cyanocobalamin (Vitamin B12 -) 100 mcg PO DAILY [facility] Last Admin: 11/04/17 09:03 Dose: 100 mcg Docusate Sodium (Colace -) 100 mg PO DAILY [facility] Last Admin: 11/04/17 09:03 Dose: 100 mg Tigecycline 50 mg/ Dextrose 100 mls @ 100 mls/hr IVPB BID [facility] PRN Reason: Protocol Daptomycin 500 mg/ Sodium (Chloride) 100 mls @ 200 mls/hr IVPB Q48H YOAN PRN Reason: Protocol Insulin Aspart (Novolog Vial Sliding Scale -) 1 vial SQ TIDAC YOAN PRN Reason: Protocol Last Admin: 11/04/17 13:54 Dose: Not Given Insulin Detemir (Levemir Vial) 16 units SQ BID@0700,2200 [facility] Last Admin: 11/04/17 06:04 Dose: 16 units Lactobacillus Acidophilus (Bacid -) 1 tab PO DAILY [facility] Last Admin: 11/04/17 09:03 Dose: 1 tab Levothyroxine Sodium (Synthroid -) 125 mcg PO DAILY@0700 [facility] Last Admin: 11/04/17 06:05 Dose: 125 mcg Metoprolol Tartrate (Lopressor -) 12.5 mg PO DAILY [facility] Last Admin: 11/04/17 13:53 Dose: 12.5 mg Morphine Sulfate (Morphine Injection -) 1 mg IVPUSH Q6H PRN PRN Reason: PAIN LEVEL 7 - 10 Nitroglycerin (Nitrostat -) 0.4 mg SL DAILY PRN PRN Reason: FOR CHEST PAIN Ondansetron HCl (Zofran Injection) 4 mg IVPB Q6H PRN PRN Reason: NAUSEA Pantoprazole Sodium (Protonix -) 40 mg PO DAILY [facility] Last Admin: 11/04/17 09:03 Dose: 40 mg Polyethylene Glycol (Miralax (For Daily Use) -) 17 gm PO DAILY [facility] Last Admin: 11/04/17 09:04 Dose: Not Given Senna (Senna -) 1 tab PO HS [facility] Last Admin: 11/03/17 22:38 Dose: Not Given Warfarin Sodium (Coumadin -) 4 mg PO DAILY@1800 [facility] 72 year old woman with PMhx of ESRD on HD, Hypertension, DM on Insulin, PVD who presented with worsening hand pain. #ESRD on HD tolerated dialysis well today 2kg UF removed continue HD 3x weekly as inpatient #Hand ischemia/Pain/Collection continue wound care and dressing changes per surgery Continue Abx as per Id pain control dressing changes hand surgery follow up Wan Cruz DO
--- NOTE | 2017-11-04 16:39 | PATH ---
Surgical Pathology Report Patient Name: GAMA OLSON [facility]. Rec. #: [id number] /Age/Gender: 1945 (Age: 72) / F Account: [id number] Location: [address] [place] [address] Taken: 10/31/2017 Received: 11/02/2017 Reported: 11/04/2017 Physicians: Shannon Pope M.D. Specimen(s) Received LEFT HAND MIDDLE, INDEX AND RING FINGERS Clinical History Cellulitis left hand Wet gangrene left middle finger with flexor tendosynovitis Dry gangrene left index and ring finger Final Diagnosis LEFT HAND, RING FINGER WITH MIDDLE FINGER AND INDEX FINGER, AMPUTATION: GANGRENOUS NECROSIS WITH ACUTE OSTEOMYELITIS. ACUTE OSTEOMYELITIS IS PRESENT AT THE BONE MARGIN OF THE LARGEST DIGIT. REMAINING BONE MARGINS ARE FREE OF OSTEOMYELITIS. GANGRENOUS NECROSIS IS PRESENT AT THE SKIN AND SOFT TISSUE MARGIN OF LARGEST DIGIT. REMAINING SKIN AND SOFT TISSUE MARGINS APPEAR VIABLE. Comment: Also see prior specimens [id number] and [id number]. Recommend followup as clinically indicated. Electronically Signed Luis Carlos Avalos M.D. Gross Description Received in formalin labeled "left hand middle finger, index finger, ring finger," are 3 undesignated finger amputation specimens ranging from 3.0 x 1.7 x 1.5 cm to 6.5 x 2.8 x 2.5 cm. The distal aspects of all 3 digits displays a hearn-black, gangrenous lesion which involves the underlying bone. The lesion extends to 0.3 cm from the skin and soft tissue margin on the smallest digit and appears to involve the skin and soft tissue margin on the medium and the largest digits. [employer] Sales Representative sections are submitted in 9 cassettes as follows: 1-smallest digit lesion with underlying bone, following decalcification; 2-smallest digit bone margin, following decalcification; 3-smallest digit the skin and soft tissue margin; 4-medium digit lesion with underlying bone, following decalcification; 5-medium digit bone margin, following decalcification; 6-medium digit skin and soft tissue margin; 7-largest digit lesion with underlying bone, following decalcification; 8-largest digit bone margin, following decalcification; 9-largest digit and soft tissue margin. 11/03/201711/03/2017
[2017-11-04] MEDS: DAPTOMYCIN 500 MG in SODIUM CHLORIDE 100 ML IVPB SCH (17:07)
[2017-11-04] MEDS: WARFARIN NA 2 MG TABLET (UD) PO SCH (17:16)
[2017-11-04] MEDS: SENNOSIDES 8.6MG TABLET (FP) PO SCH (21:14)
[2017-11-04] MEDS: TIGECYCLINE 50 MG in DEXTROSE 5%-WATER - 100 ML IVPB SCH (22:20)
[2017-11-05] MEDS: LEVOTHYROXINE NA 125 MCG TABLET (FP) PO SCH (06:01)
[2017-11-05] MEDS: INSULIN SLIDING SCALE (NOVOLOG) 1 VIAL SQ SCH ×3 (06:01→16:42)
[2017-11-05] MEDS: INSULIN DETEMIR 100 UNITS/ML MDV SQ SCH ×2 (06:02→22:36)
[2017-11-05 06:29] LABS: BASO % 1.1 % (0-2.0); EOS % 2.6 % (0-4.5); HEMATOCRIT 38.3 % (32.4-45.2); HEMOGLOBIN 11.8 GM/dL (10.7-15.3); MCH 30.2 pg (25.7-33.7); MCHC 30.8 g/dl (32.0-36.0); MEAN CELL VOLUME 98.1 fl (80-96); MEAN PLT VOLUME 8.1 fl (7.5-11.1); MONO % 7.9 % (3.8-10.2); NEUT % 67.4 % (42.8-82.8); PLATELET COUNT 373 K/MM3 (134-434); RDW 18.4 % (11.6-15.6); WHITE BLOOD COUNT 8.4 K/mm3 (4.0-10.0)
[2017-11-05 06:57] LABS: ANION GAP 8 (8-16); BLOOD UREA NITROGEN 34 mg/dL (7-18); CALCIUM 7.8 mg/dL (8.5-10.1); CHLORIDE 104 mmol/L (98-107); CO2 30 mmol/L (21-32); CREATININE 3.6 mg/dL (0.55-1.02); GLUCOSE,RANDOM 55 mg/dL (74-106); POTASSIUM 4.4 mmol/L (3.5-5.1); SODIUM 142 mmol/L (136-145)
--- NOTE | 2017-11-05 09:16 | PN ---
Progress Note (short form) - Note Progress Note: s/p hand surgery 10/31 no fevers no sob Vital Signs Period Temp Pulse Resp BP Sys/Cordero Pulse Ox Last 24 Hr 98 F-98.0 F 76-100 17-22 108-157/32-100 98 cor-rrr lungs clear abd soft,nt ext hand dressing intact CBC, BMP 11/05/17 06:15 11/05/17 06:15 Microbiology 10/30/17 16:28 Blood - Peripheral Venous Blood Culture - Final NO GROWTH AFTER 5 DAYS INCUBATION 10/30/17 15:43 Blood - Peripheral Venous Blood Culture - Final NO GROWTH AFTER 5 DAYS INCUBATION 10/31/17 16:30 Hand - Left Wound Culture - Preliminary Klebsiella Pneumoniae - Esbl Vr Ec Faecalis Current Medications Acetaminophen (Tylenol -) 650 mg PO Q4H PRN PRN Reason: BACK PAIN Last Admin: 11/04/17 21:09 Dose: 650 mg Aspirin (Asa -) 81 mg PO DAILY [facility] Last Admin: 11/04/17 09:03 Dose: 81 mg Calcium Acetate (Phoslo -) 667 mg PO DAILY [facility] Last Admin: 11/04/17 09:03 Dose: 667 mg Cyanocobalamin (Vitamin B12 -) 100 mcg PO DAILY [facility] Last Admin: 11/04/17 09:03 Dose: 100 mcg Docusate Sodium (Colace -) 100 mg PO DAILY [facility] Last Admin: 11/04/17 09:03 Dose: 100 mg Tigecycline 50 mg/ Dextrose 100 mls @ 100 mls/hr IVPB BID [facility] PRN Reason: Protocol Last Admin: 11/04/17 22:20 Dose: 100 mls/hr Daptomycin 500 mg/ Sodium (Chloride) 100 mls @ 200 mls/hr IVPB Q48H [facility] PRN Reason: Protocol Last Admin: 11/04/17 17:07 Dose: 200 mls/hr Insulin Aspart (Novolog Vial Sliding Scale -) 1 vial SQ TIDAC [facility] PRN Reason: Protocol Last Admin: 11/05/17 06:01 Dose: Not Given Insulin Detemir (Levemir Vial) 16 units SQ BID@0700,2200 [facility] Last Admin: 11/05/17 06:02 Dose: 16 units Lactobacillus Acidophilus (Bacid -) 1 tab PO DAILY [facility] Last Admin: 11/04/17 09:03 Dose: 1 tab Levothyroxine Sodium (Synthroid -) 125 mcg PO DAILY@0700 [facility] Last Admin: 11/05/17 06:01 Dose: 125 mcg Metoprolol Tartrate (Lopressor -) 12.5 mg PO DAILY [facility] Last Admin: 11/04/17 13:53 Dose: 12.5 mg Morphine Sulfate (Morphine Injection -) 1 mg IVPUSH Q6H PRN PRN Reason: PAIN LEVEL 7 - 10 Nitroglycerin (Nitrostat -) 0.4 mg SL DAILY PRN PRN Reason: FOR CHEST PAIN Ondansetron HCl (Zofran Injection) 4 mg IVPB Q6H PRN PRN Reason: NAUSEA Pantoprazole Sodium (Protonix -) 40 mg PO DAILY [facility] Last Admin: 11/04/17 09:03 Dose: 40 mg Polyethylene Glycol (Miralax (For Daily Use) -) 17 gm PO DAILY [facility] Last Admin: 11/04/17 09:04 Dose: Not Given Senna (Senna -) 1 tab PO HS [facility] Last Admin: 11/04/17 21:14 Dose: 1 tab Warfarin Sodium (Coumadin -) 4 mg PO DAILY@1800 [facility] Last Admin: 11/04/17 17:16 Dose: 4 mg a/p s/p hand surgery with amputation for tenosynovitis and gangrene daptomycin and tygacil -day #2 will try to see hand when surgery does dressing today please hold lipitor while on daptomycin esrd/hd highly resistant organisms- strict contact isolation- dedicated equipment- 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 Problem List - Problems (1) Flexor tenosynovitis of finger Code(s): M65.9 - SYNOVITIS AND TENOSYNOVITIS, UNSPECIFIED (2) Cellulitis of left hand Code(s): L03.114 - CELLULITIS OF LEFT UPPER LIMB (3) Diabetes Code(s): E11.9 - TYPE 2 DIABETES MELLITUS WITHOUT COMPLICATIONS Qualifiers: Diabetes mellitus type: type 1 Diabetes mellitus complication status: with circulatory complication Diabetes mellitus complication detail: with other circulatory complications Qualified Code(s): E10.59 - Type 1 diabetes mellitus with other circulatory complications (4) ESRD on hemodialysis Code(s): N18.6 - END STAGE RENAL DISEASE; Z99.2 - DEPENDENCE ON RENAL DIALYSIS
--- NOTE | 2017-11-05 09:54 | PN ---
Progress Note, Physician Chief Complaint: pt examined Has mild to moderate pain , better with Tylenol No distress dressing changed yesterday - Current Medication List Current Medications: Active Medications Acetaminophen (Tylenol -) 650 mg PO Q4H PRN PRN Reason: BACK PAIN Last Admin: 11/04/17 21:09 Dose: 650 mg Aspirin (Asa -) 81 mg PO DAILY [facility] Last Admin: 11/04/17 09:03 Dose: 81 mg Calcium Acetate (Phoslo -) 667 mg PO DAILY [facility] Last Admin: 11/04/17 09:03 Dose: 667 mg Cyanocobalamin (Vitamin B12 -) 100 mcg PO DAILY [facility] Last Admin: 11/04/17 09:03 Dose: 100 mcg Docusate Sodium (Colace -) 100 mg PO DAILY [facility] Last Admin: 11/04/17 09:03 Dose: 100 mg Tigecycline 50 mg/ Dextrose 100 mls @ 100 mls/hr IVPB BID [facility] PRN Reason: Protocol Last Admin: 11/04/17 22:20 Dose: 100 mls/hr Daptomycin 500 mg/ Sodium (Chloride) 100 mls @ 200 mls/hr IVPB Q48H [facility] PRN Reason: Protocol Last Admin: 11/04/17 17:07 Dose: 200 mls/hr Insulin Aspart (Novolog Vial Sliding Scale -) 1 vial SQ TIDAC [facility] PRN Reason: Protocol Last Admin: 11/05/17 06:01 Dose: Not Given Insulin Detemir (Levemir Vial) 16 units SQ BID@0700,2200 [facility] Last Admin: 11/05/17 06:02 Dose: 16 units Lactobacillus Acidophilus (Bacid -) 1 tab PO DAILY [facility] Last Admin: 11/04/17 09:03 Dose: 1 tab Levothyroxine Sodium (Synthroid -) 125 mcg PO DAILY@0700 [facility] Last Admin: 11/05/17 06:01 Dose: 125 mcg Metoprolol Tartrate (Lopressor -) 12.5 mg PO DAILY [facility] Last Admin: 11/04/17 13:53 Dose: 12.5 mg Morphine Sulfate (Morphine Injection -) 1 mg IVPUSH Q6H PRN PRN Reason: PAIN LEVEL 7 - 10 Nitroglycerin (Nitrostat -) 0.4 mg SL DAILY PRN PRN Reason: FOR CHEST PAIN Ondansetron HCl (Zofran Injection) 4 mg IVPB Q6H PRN PRN Reason: NAUSEA Pantoprazole Sodium (Protonix -) 40 mg PO DAILY [facility] Last Admin: 11/04/17 09:03 Dose: 40 mg Polyethylene Glycol (Miralax (For Daily Use) -) 17 gm PO DAILY [facility] Last Admin: 11/04/17 09:04 Dose: Not Given Senna (Senna -) 1 tab PO HS [facility] Last Admin: 11/04/17 21:14 Dose: 1 tab Warfarin Sodium (Coumadin -) 4 mg PO DAILY@1800 [facility] Last Admin: 11/04/17 17:16 Dose: 4 mg - Objective Vital Signs: Vital Signs Temperature 98.0 F 11/05/17 05:32 Pulse Rate 99 H 11/05/17 05:32 Respiratory Rate 17 11/05/17 05:32 Blood Pressure 111/58 11/05/17 05:32 O2 Sat by Pulse Oximetry (%) 98 11/04/17 20:02 Constitutional: Yes: No Distress, Calm Cardiovascular: Yes: Pulse Irregular Respiratory: Yes: Diminished Gastrointestinal: Yes: Normal Bowel Sounds, Soft. No: Distention, Tenderness Extremities: Yes: Amputation, Other (left hand dressing in place) Edema: No Labs: CBC, BMP 11/05/17 06:15 11/05/17 06:15 INR, PTT INR 2.09 (0.82-1.09) H 11/04/17 05:05 Problem List - Problems (1) Cellulitis and abscess of hand Code(s): L03.119 - CELLULITIS OF UNSPECIFIED PART OF LIMB; L02.519 - CUTANEOUS ABSCESS OF UNSPECIFIED HAND (2) Anemia Code(s): D64.9 - ANEMIA, UNSPECIFIED Qualifiers: Anemia type: other cause Other causes of anemia: chronic disease, kidney (3) Atrial fibrillation Code(s): I48.91 - UNSPECIFIED ATRIAL FIBRILLATION Qualifiers: Atrial fibrillation type: unspecified Qualified Code(s): I48.91 - Unspecified atrial fibrillation (4) DM type 2 causing complication Code(s): E11.8 - TYPE 2 DIABETES MELLITUS WITH UNSPECIFIED COMPLICATIONS (5) ESRD (end stage renal disease) on dialysis Code(s): N18.6 - END STAGE RENAL DISEASE; Z99.2 - DEPENDENCE ON RENAL DIALYSIS Assessment/Plan Abx per ID continue other meds monitor bgm-- on Levemir coumadin per inr- continue current dose pain control dialysis per renal will follow
[2017-11-05] MEDS: METOPROLOL TARTRATE 25 MG TABLET (FP) PO SCH (10:09)
[2017-11-05] MEDS: CALCIUM ACETATE 667 MG CAPSULE (FP) PO SCH (10:09)
[2017-11-05] MEDS: LACTOBACILLUS ACIDOPHILUS 1 EACH TAB (FP) PO SCH (10:09)
[2017-11-05] MEDS: TIGECYCLINE 50 MG in DEXTROSE 5%-WATER - 100 ML IVPB SCH ×2 (10:09→22:38)
[2017-11-05] MEDS: PANTOPRAZOLE 40 MG TABLET (FP) PO SCH (10:09)
[2017-11-05] MEDS: CYANOCOBALAMIN (VITAMIN B-12) 100 MCG TABLET PO SCH (10:09)
[2017-11-05] MEDS: ASPIRIN 81 MG CHEWABLE TABLETS PO SCH (10:09)
[2017-11-05] MEDS: DOCUSATE SODIUM 100 MG CAPSULE (FP) PO SCH (10:11)
[2017-11-05] MEDS: POLYETHYLENE GLYCOL 3350 119 GM BTL PO SCH (11:42)
--- NOTE | 2017-11-05 11:48 | PN ---
Progress Note, Physician Chief Complaint: left hand wet and dry gangrene History of Present Illness: 72 yo female PMH HTN, DM, HLD, PAD, CHF, A-fib, defibrillator placement,pvd, ESRD (Dialysis on M,W,F- left chest tunnel catheter ), Right AKA amputation, Left foot amputation, and Left hand 2nd-4th digit partial amputation (02/2017) who presents with left hand pain. found to have flexor tenosynovitis and a combination of wet and dry gangrene. She was tranferred to the ICU for stabilization and monitoring after taking medication and experienceing a drop in blood pressure. Report pain was adequately controlled overnight. - Current Medication List Current Medications: Active Medications Acetaminophen (Tylenol -) 650 mg PO Q4H PRN PRN Reason: BACK PAIN Last Admin: 11/04/17 21:09 Dose: 650 mg Aspirin (Asa -) 81 mg PO DAILY [facility] Last Admin: 11/05/17 10:09 Dose: 81 mg Calcium Acetate (Phoslo -) 667 mg PO DAILY [facility] Last Admin: 11/05/17 10:09 Dose: 667 mg Cyanocobalamin (Vitamin B12 -) 100 mcg PO DAILY [facility] Last Admin: 11/05/17 10:09 Dose: 100 mcg Docusate Sodium (Colace -) 100 mg PO DAILY [facility] Last Admin: 11/05/17 10:11 Dose: 100 mg Tigecycline 50 mg/ Dextrose 100 mls @ 100 mls/hr IVPB BID [facility] PRN Reason: Protocol Last Admin: 11/05/17 10:09 Dose: 100 mls/hr Daptomycin 500 mg/ Sodium (Chloride) 100 mls @ 200 mls/hr IVPB Q48H [facility] PRN Reason: Protocol Last Admin: 11/04/17 17:07 Dose: 200 mls/hr Insulin Aspart (Novolog Vial Sliding Scale -) 1 vial SQ TIDAC [facility] PRN Reason: Protocol Last Admin: 11/05/17 06:01 Dose: Not Given Insulin Detemir (Levemir Vial) 16 units SQ BID@0700,2200 [facility] Last Admin: 11/05/17 06:02 Dose: 16 units Lactobacillus Acidophilus (Bacid -) 1 tab PO DAILY [facility] Last Admin: 11/05/17 10:09 Dose: 1 tab Levothyroxine Sodium (Synthroid -) 125 mcg PO DAILY@0700 [facility] Last Admin: 11/05/17 06:01 Dose: 125 mcg Metoprolol Tartrate (Lopressor -) 12.5 mg PO DAILY [facility] Last Admin: 11/05/17 10:09 Dose: 12.5 mg Morphine Sulfate (Morphine Injection -) 1 mg IVPUSH Q6H PRN PRN Reason: PAIN LEVEL 7 - 10 Nitroglycerin (Nitrostat -) 0.4 mg SL DAILY PRN PRN Reason: FOR CHEST PAIN Ondansetron HCl (Zofran Injection) 4 mg IVPB Q6H PRN PRN Reason: NAUSEA Pantoprazole Sodium (Protonix -) 40 mg PO DAILY [facility] Last Admin: 11/05/17 10:09 Dose: 40 mg Polyethylene Glycol (Miralax (For Daily Use) -) 17 gm PO DAILY [facility] Last Admin: 11/05/17 11:42 Dose: 17 grams Senna (Senna -) 1 tab PO HS [facility] Last Admin: 11/04/17 21:14 Dose: 1 tab Warfarin Sodium (Coumadin -) 4 mg PO DAILY@1800 [facility] Last Admin: 11/04/17 17:16 Dose: 4 mg - Objective Vital Signs: Vital Signs Temperature 98.0 F 11/05/17 05:32 Pulse Rate 99 H 11/05/17 05:32 Respiratory Rate 17 11/05/17 05:32 Blood Pressure 111/58 11/05/17 05:32 O2 Sat by Pulse Oximetry (%) 98 11/04/17 20:02 Vital Signs Period Temp Pulse Resp BP Sys/Cordero Pulse Ox Last 24 Hr 98 F-98.0 F 76-100 17-22 109-157/32-100 98 Intake & Output 11/04/17 11/05/17 11/05/17 23:59 07:59 15:59 Intake Total 20 35 Balance 20 35 Weight 185 lb 4 oz Intake: IV 20 35 IVSL #2 10 35 SL 10 Other: Voiding Method Diaper Weight Measurement Method Built in [facility] Constitutional: Yes: Well Nourished, No Distress, Calm Eyes: Yes: Conjunctiva Clear, EOM Intact HENT: Yes: Atraumatic, Normocephalic Neck: Yes: Supple, Trachea Midline Cardiovascular: Yes: Regular Rate and Rhythm, S1, S2 Respiratory: Yes: Regular, CTA Bilaterally Gastrointestinal: Yes: Normal Bowel Sounds, Soft. No: Tenderness ...Rectal Exam: Yes: Deferred Genitourinary: No: CVA Tenderness - Left, CVA Tenderness - Right Musculoskeletal: No: Muscle Pain, Muscle Weakness Extremities: No: Cool, Cyanosis Edema: No Peripheral Pulses WNL: Yes Integumentary: No: Jaundice, Rash Wound/Incision: Yes: Sutures Intact. No: Reddened, Bleeding Neurological: Yes: Alert, Oriented Psychiatric: Yes: Alert, Oriented Labs: CBC, BMP 11/05/17 06:15 11/05/17 06:15 INR, PTT INR 2.09 (0.82-1.09) H 11/04/17 05:05 Problem List - Problems (1) Flexor tenosynovitis of finger Assessment/Plan: 72 yo female MMP including Afib on coumadin, DM type 2 and ESRD, Wet gangrene and flexor tenosynovitis left middle finger, dry gangrene of index and ring fingers, poor distal circulation on duplex with PVR left arm. POD#5 s/p Left middle finger irrigation and debridement of flexor tenosynovitis and revision amputation of index middle and ring fingers. f/u cultures continue IV antibiotics elevation of left arm above heart adequate analgesia Will need discharge with VNS for daily dressing Dressing change daily Wound measurement: left middle open MCP 1.2x1.2x0.2cm, clean no purulent drainage Dressing instructions: open MCP, Xeroform, 4X4 gauze sponges, loose kerlex and coban wrap PT evaluation This patient is in guarded condition. Time spent reviewing chart, examining patient, talking with providers and/or family and documentation is 35 minutes Code(s): M65.9 - SYNOVITIS AND TENOSYNOVITIS, UNSPECIFIED (2) Cellulitis and abscess of hand Code(s): L03.119 - CELLULITIS OF UNSPECIFIED PART OF LIMB; L02.519 - CUTANEOUS ABSCESS OF UNSPECIFIED HAND (3) Anemia in ESRD (end-stage renal disease) Code(s): N18.6 - END STAGE RENAL DISEASE; D63.1 - ANEMIA IN CHRONIC KIDNEY DISEASE (4) CAD (coronary artery disease) Code(s): I25.10 - ATHSCL HEART DISEASE OF [place] CORONARY ARTERY W/O ANG PCTRS Qualifiers: Coronary Disease-Associated Artery/Lesion type: [place] artery [place] vs. transplanted heart: [place] heart Associated angina: without angina Qualified Code(s): I25.10 - Atherosclerotic heart disease of [place] coronary artery without angina pectoris (5) DM type 2 causing complication Code(s): E11.8 - TYPE 2 DIABETES MELLITUS WITH UNSPECIFIED COMPLICATIONS (6) ESRD on hemodialysis Code(s): N18.6 - END STAGE RENAL DISEASE; Z99.2 - DEPENDENCE ON RENAL DIALYSIS (7) HTN (hypertension) Code(s): I10 - ESSENTIAL (PRIMARY) HYPERTENSION Qualifiers: Hypertension type: essential hypertension Qualified Code(s): I10 - Essential (primary) hypertension (8) Hypercholesterolemia Code(s): E78.00 - PURE HYPERCHOLESTEROLEMIA, UNSPECIFIED
--- NOTE | 2017-11-05 12:14 | PN ---
Progress Note (short form) - Note Progress Note: CCU. 72 year old white female known case of CAD, s/p multivessel PCI/stenting, severe LV systolic dysfunction, s/p ICD, permanent atrial fib, DM with multi system involement, ESRD-HD, hypertension admitted with gangreous changes involving the fingers of the left hand requiring amputations. H/o hypothyroidism. No SOB reported, no further hypotensive episodes, no chest pain or discomfort. No palpitations Active Medications Generic Name Dose Route Start Last Admin Trade Name Freq PRN Reason Stop Dose Admin Acetaminophen 650 mg 10/31/17 16:05 11/04/17 21:09 Tylenol - PO 650 mg Q4H PRN Administration BACK PAIN Aspirin 81 mg 11/01/17 10:00 11/05/17 10:09 Asa - PO 81 mg DAILY YOAN Administration Calcium Acetate 667 mg 11/01/17 10:00 11/05/17 10:09 Phoslo - PO 667 mg DAILY YOAN Administration Cyanocobalamin 100 mcg 11/01/17 10:00 11/05/17 10:09 Vitamin B12 - PO 100 mcg DAILY YOAN Administration Docusate Sodium 100 mg 11/01/17 10:00 11/05/17 10:11 Colace - PO 100 mg DAILY YOAN Administration Tigecycline 50 mg/ Dextrose 100 mls @ 100 mls/hr 11/04/17 22:00 11/05/17 10: 09 IVPB 100 mls/hr BID YOAN Administration Protocol Daptomycin 500 mg/ Sodium 100 mls @ 200 mls/hr 11/04/17 16:00 11/04/17 17:07 Chloride IVPB 200 mls/hr Q48H YOAN Administration Protocol Insulin Aspart 1 vial 11/03/17 16:30 11/05/17 06:01 Novolog Vial Sliding Scale - SQ Not Given TIDAC [facility] Protocol Insulin Detemir 16 units 11/02/17 12:17 11/05/17 06:02 Levemir Vial SQ 16 units BID@0700,2200 YOAN Administration Lactobacillus Acidophilus 1 tab 11/01/17 10:00 11/05/17 10:09 Bacid - PO 1 tab DAILY YOAN Administration Levothyroxine Sodium 125 mcg 11/01/17 07:00 11/05/17 06:01 Synthroid - PO 125 mcg DAILY@0700 YOAN Administration Metoprolol Tartrate 12.5 mg 11/01/17 10:00 11/05/17 10:09 Lopressor - PO 12.5 mg DAILY YOAN Administration Morphine Sulfate 1 mg 11/03/17 18:46 Morphine Injection - IVPUSH Q6H PRN PAIN LEVEL 7 - 10 Nitroglycerin 0.4 mg 10/31/17 16:05 Nitrostat - SL DAILY PRN FOR CHEST PAIN Ondansetron HCl 4 mg 11/04/17 09:31 Zofran Injection IVPB Q6H PRN NAUSEA Pantoprazole Sodium 40 mg 11/01/17 10:00 11/05/17 10:09 Protonix - PO 40 mg DAILY YOAN Administration Polyethylene Glycol 17 gm 11/01/17 10:00 11/05/17 11:42 Miralax (For Daily Use) - PO 17 grams DAILY YOAN Administration Senna 1 tab 10/31/17 22:00 11/04/17 21:14 Senna - PO 1 tab HS YOAN Administration Warfarin Sodium 4 mg 11/04/17 18:00 11/04/17 17:16 Coumadin - PO 4 mg DAILY@1800 YOAN Administration 72 year old female in no acute distress, no pallor or cyanosis. Last Vital Signs Temp Pulse Resp BP Pulse Ox 98.0 F 99 H irregular 17 111/58 98 11/05/17 05:32 11/05/17 05:32 11/05/17 05:32 11/05/17 05:32 11/04/17 20:02 NECK: Supple, no JVD, carotids 1-2+, no bruits heards. anterior surgical scar. HEART: PMI in the 5th ICS, LINDA II/ 2nd right ICS. no gallops heard. LUNGS; Clear on auscultation. ABDOMEN: Soft, nontender, no organomegalty or masses felt. EXTREMITIES: Rt. AKA, left partial amputation of the foot. Left hand is bandaged. CBC, BMP 11/05/17 06:15 11/05/17 06:15 Echocardiogram: Severe Lv systolic dysfunction( see report ). IMPRESSION: 1. Severe LVsystolic dysfunction. 2. Elevated Troponins secondary to ESRD, cannot exclude myocardial ischemia. 3. ESRD-HD. 4. CAD, multovessel vessel PCI/Stenting. 5. Permanent atrial fib. with controlled ventricular response. 6. Hypertension. 7. DM with multisystem involvement. 8. S/P p ICD. REcommendations: 1. Increase the dose of Lopressor to 12.5mg. BID on nondialysis days. 2. Continue therapy.
--- NOTE | 2017-11-05 12:25 | PN ---
Progress Note, Physician Chief Complaint: 72 The patient seen in the ICU. Feeling better. "My hand is feeling much better". BP has improved. History of Present Illness: 72 year old woman with PMhx of ESRD on HD, Hypertension, CAD, DM on Insulin, PVD who presented with worsening hand pain. The patient had I and D of hand abscess. Her last HD yesterday. - Current Medication List Current Medications: Active Medications Acetaminophen (Tylenol -) 650 mg PO Q4H PRN PRN Reason: BACK PAIN Last Admin: 11/04/17 21:09 Dose: 650 mg Aspirin (Asa -) 81 mg PO DAILY [facility] Last Admin: 11/05/17 10:09 Dose: 81 mg Calcium Acetate (Phoslo -) 667 mg PO DAILY [facility] Last Admin: 11/05/17 10:09 Dose: 667 mg Cyanocobalamin (Vitamin B12 -) 100 mcg PO DAILY [facility] Last Admin: 11/05/17 10:09 Dose: 100 mcg Docusate Sodium (Colace -) 100 mg PO DAILY [facility] Last Admin: 11/05/17 10:11 Dose: 100 mg Tigecycline 50 mg/ Dextrose 100 mls @ 100 mls/hr IVPB BID [facility] PRN Reason: Protocol Last Admin: 11/05/17 10:09 Dose: 100 mls/hr Daptomycin 500 mg/ Sodium (Chloride) 100 mls @ 200 mls/hr IVPB Q48H [facility] PRN Reason: Protocol Last Admin: 11/04/17 17:07 Dose: 200 mls/hr Insulin Aspart (Novolog Vial Sliding Scale -) 1 vial SQ TIDAC [facility] PRN Reason: Protocol Last Admin: 11/05/17 12:19 Dose: 3 units Insulin Detemir (Levemir Vial) 16 units SQ BID@0700,2200 [facility] Last Admin: 11/05/17 06:02 Dose: 16 units Lactobacillus Acidophilus (Bacid -) 1 tab PO DAILY [facility] Last Admin: 11/05/17 10:09 Dose: 1 tab Levothyroxine Sodium (Synthroid -) 125 mcg PO DAILY@0700 [facility] Last Admin: 11/05/17 06:01 Dose: 125 mcg Metoprolol Tartrate (Lopressor -) 12.5 mg PO DAILY [facility] Last Admin: 11/05/17 10:09 Dose: 12.5 mg Morphine Sulfate (Morphine Injection -) 1 mg IVPUSH Q6H PRN PRN Reason: PAIN LEVEL 7 - 10 Nitroglycerin (Nitrostat -) 0.4 mg SL DAILY PRN PRN Reason: FOR CHEST PAIN Ondansetron HCl (Zofran Injection) 4 mg IVPB Q6H PRN PRN Reason: NAUSEA Pantoprazole Sodium (Protonix -) 40 mg PO DAILY [facility] Last Admin: 11/05/17 10:09 Dose: 40 mg Polyethylene Glycol (Miralax (For Daily Use) -) 17 gm PO DAILY [facility] Last Admin: 11/05/17 11:42 Dose: 17 grams Senna (Senna -) 1 tab PO HS [facility] Last Admin: 11/04/17 21:14 Dose: 1 tab Warfarin Sodium (Coumadin -) 4 mg PO DAILY@1800 [facility] Last Admin: 11/04/17 17:16 Dose: 4 mg - Objective Vital Signs: Vital Signs Temperature 98.0 F 11/05/17 05:32 Pulse Rate 99 H 11/05/17 05:32 Respiratory Rate 17 11/05/17 05:32 Blood Pressure 111/58 11/05/17 05:32 O2 Sat by Pulse Oximetry (%) 98 11/04/17 20:02 Constitutional: Yes: Calm, Pallor HENT: Yes: Normocephalic Neck: Yes: Trachea Midline Cardiovascular: Yes: S1, S2 Respiratory: Yes: CTA Bilaterally Gastrointestinal: Yes: Normal Bowel Sounds, Soft Extremities: Yes: Amputation (dressing) Labs: CBC, BMP 11/05/17 06:15 11/05/17 06:15 INR, PTT INR 2.09 (0.82-1.09) H 11/04/17 05:05 Problem List - Problems (1) Cellulitis and abscess of hand Code(s): L03.119 - CELLULITIS OF UNSPECIFIED PART OF LIMB; L02.519 - CUTANEOUS ABSCESS OF UNSPECIFIED HAND (2) Flexor tenosynovitis of finger Code(s): M65.9 - SYNOVITIS AND TENOSYNOVITIS, UNSPECIFIED (3) Anemia Code(s): D64.9 - ANEMIA, UNSPECIFIED Qualifiers: Anemia type: other cause Other causes of anemia: chronic disease, kidney (4) Atrial fibrillation Code(s): I48.91 - UNSPECIFIED ATRIAL FIBRILLATION Qualifiers: Atrial fibrillation type: unspecified Qualified Code(s): I48.91 - Unspecified atrial fibrillation (5) CAD (coronary artery disease) Code(s): I25.10 - ATHSCL HEART DISEASE OF [place] CORONARY ARTERY W/O ANG PCTRS Qualifiers: Coronary Disease-Associated Artery/Lesion type: [place] artery [place] vs. transplanted heart: [place] heart Associated angina: without angina Qualified Code(s): I25.10 - Atherosclerotic heart disease of [place] coronary artery without angina pectoris (6) DM type 2 causing complication Code(s): E11.8 - TYPE 2 DIABETES MELLITUS WITH UNSPECIFIED COMPLICATIONS (7) ESRD on hemodialysis Code(s): N18.6 - END STAGE RENAL DISEASE; Z99.2 - DEPENDENCE ON RENAL DIALYSIS Assessment/Plan 72 year old woman with PMhx of ESRD on HD, Hypertension, CAD, DM on Insulin, PVD who presented with worsening hand pain. The patient is hemodynamically lizbeth now. IV Abx well tolerated. Had uneventful HD yesterday. Will continue the current regimen. Thank you. Layla Evans MD
[2017-11-05] MEDS: ACETAMINOPHEN 325 MG TABLET (FP) PO PRN ×2 (14:21→22:34)
[2017-11-05] MEDS: oxyCODONE HCL 5 MG TABLET PO PRN ×2 (15:38→22:37)
[2017-11-05] MEDS: WARFARIN NA 2 MG TABLET (UD) PO SCH (18:00)
[2017-11-05] MEDS ORDERED: PT OWN MED DRAWER 7, Y5N ONE (22:06)
[2017-11-05] MEDS: SENNOSIDES 8.6MG TABLET (FP) PO SCH (22:37)
[2017-11-06] MEDS: LEVOTHYROXINE NA 125 MCG TABLET (FP) PO SCH (07:05)
[2017-11-06] MEDS: INSULIN DETEMIR 100 UNITS/ML MDV SQ SCH ×2 (07:05→23:06)
[2017-11-06] MEDS: INSULIN SLIDING SCALE (NOVOLOG) 1 VIAL SQ SCH ×3 (07:06→17:14)
[2017-11-06] MEDS: ASPIRIN 81 MG CHEWABLE TABLETS PO SCH (08:59)
[2017-11-06] MEDS: DOCUSATE SODIUM 100 MG CAPSULE (FP) PO SCH (08:59)
[2017-11-06] MEDS: LACTOBACILLUS ACIDOPHILUS 1 EACH TAB (FP) PO SCH (08:59)
[2017-11-06] MEDS: METOPROLOL TARTRATE 25 MG TABLET (FP) PO SCH (09:00)
[2017-11-06] MEDS: POLYETHYLENE GLYCOL 3350 119 GM BTL PO SCH (09:00)
[2017-11-06] MEDS: CALCIUM ACETATE 667 MG CAPSULE (FP) PO SCH (09:01)
[2017-11-06] MEDS: PANTOPRAZOLE 40 MG TABLET (FP) PO SCH (09:01)
[2017-11-06] MEDS: CYANOCOBALAMIN (VITAMIN B-12) 100 MCG TABLET PO SCH (09:01)
[2017-11-06] MEDS ORDERED: PT OWN MED DRAWER 7, Y5N ONE ×4 (09:03→22:10)
[2017-11-06] MEDS: ACETAMINOPHEN 325 MG TABLET (FP) PO PRN ×2 (09:05→13:14)
[2017-11-06] MEDS: TIGECYCLINE 50 MG in DEXTROSE 5%-WATER - 100 ML IVPB SCH ×2 (10:31→22:12)
--- NOTE | 2017-11-06 11:28 | PN ---
Progress Note, Physician Chief Complaint: pt examined Has mild to moderate pain , better with Tylenol No distress dressing changed yesterday daughter at bedside - Current Medication List Current Medications: Active Medications Acetaminophen (Tylenol -) 650 mg PO Q4H PRN PRN Reason: BACK PAIN Last Admin: 11/06/17 09:05 Dose: 650 mg Aspirin (Asa -) 81 mg PO DAILY [facility] Last Admin: 11/06/17 08:59 Dose: 81 mg Calcium Acetate (Phoslo -) 667 mg PO DAILY [facility] Last Admin: 11/06/17 09:01 Dose: 667 mg Cyanocobalamin (Vitamin B12 -) 100 mcg PO DAILY [facility] Last Admin: 11/06/17 09:01 Dose: 100 mcg Diphenhydramine HCl (Benadryl -) 50 mg PO HS PRN PRN Reason: INSOMNIA Docusate Sodium (Colace -) 100 mg PO DAILY [facility] Last Admin: 11/06/17 08:59 Dose: 100 mg Tigecycline 50 mg/ Dextrose 100 mls @ 100 mls/hr IVPB BID [facility] PRN Reason: Protocol Last Admin: 11/06/17 10:31 Dose: 100 mls/hr Daptomycin 500 mg/ Sodium (Chloride) 100 mls @ 200 mls/hr IVPB Q48H [facility] PRN Reason: Protocol Last Admin: 11/04/17 17:07 Dose: 200 mls/hr Insulin Aspart (Novolog Vial Sliding Scale -) 1 vial SQ TIDAC [facility] PRN Reason: Protocol Last Admin: 11/06/17 07:06 Dose: Not Given Insulin Detemir (Levemir Vial) 16 units SQ BID@0700,2200 [facility] Last Admin: 11/06/17 07:05 Dose: Not Given Lactobacillus Acidophilus (Bacid -) 1 tab PO DAILY [facility] Last Admin: 11/06/17 08:59 Dose: 1 tab Levothyroxine Sodium (Synthroid -) 125 mcg PO DAILY@0700 [facility] Last Admin: 11/06/17 07:05 Dose: 125 mcg Metoprolol Tartrate (Lopressor -) 12.5 mg PO DAILY [facility] Last Admin: 11/06/17 09:00 Dose: 12.5 mg Morphine Sulfate (Morphine Injection -) 1 mg IVPUSH Q6H PRN PRN Reason: PAIN LEVEL 7 - 10 Nitroglycerin (Nitrostat -) 0.4 mg SL DAILY PRN PRN Reason: FOR CHEST PAIN Ondansetron HCl (Zofran Injection) 4 mg IVPB Q6H PRN PRN Reason: NAUSEA Oxycodone HCl (Roxicodone -) 5 mg PO Q6H PRN PRN Reason: PAIN LEVEL 4 - 6 Last Admin: 11/05/17 22:37 Dose: 5 mg Pantoprazole Sodium (Protonix -) 40 mg PO DAILY [facility] Last Admin: 11/06/17 09:01 Dose: 40 mg Polyethylene Glycol (Miralax (For Daily Use) -) 17 gm PO DAILY [facility] Last Admin: 11/06/17 09:00 Dose: Not Given Senna (Senna -) 1 tab PO HS [facility] Last Admin: 11/05/17 22:37 Dose: 1 tab Warfarin Sodium (Coumadin -) 4 mg PO DAILY@1800 [facility] Last Admin: 11/05/17 18:00 Dose: 4 mg - Objective Vital Signs: Vital Signs Temperature 97.8 F 11/05/17 23:37 Pulse Rate 80 11/06/17 07:00 Respiratory Rate 18 11/06/17 07:00 Blood Pressure 94/57 11/06/17 07:00 O2 Sat by Pulse Oximetry (%) 100 11/06/17 08:06 Constitutional: Yes: No Distress Cardiovascular: Yes: Regular Rate and Rhythm Respiratory: Yes: Diminished Gastrointestinal: Yes: Normal Bowel Sounds, Soft. No: Tenderness Extremities: Yes: Amputation, Other (left hand dressing) Edema: No Labs: CBC, BMP 11/05/17 06:15 11/05/17 06:15 INR, PTT INR 2.09 (0.82-1.09) H 11/04/17 05:05 Problem List - Problems (1) Cellulitis and abscess of hand Code(s): L03.119 - CELLULITIS OF UNSPECIFIED PART OF LIMB; L02.519 - CUTANEOUS ABSCESS OF UNSPECIFIED HAND (2) Anemia Code(s): D64.9 - ANEMIA, UNSPECIFIED Qualifiers: Anemia type: other cause Other causes of anemia: chronic disease, kidney (3) Atrial fibrillation Code(s): I48.91 - UNSPECIFIED ATRIAL FIBRILLATION Qualifiers: Atrial fibrillation type: unspecified Qualified Code(s): I48.91 - Unspecified atrial fibrillation (4) DM type 2 causing complication Code(s): E11.8 - TYPE 2 DIABETES MELLITUS WITH UNSPECIFIED COMPLICATIONS (5) ESRD (end stage renal disease) on dialysis Code(s): N18.6 - END STAGE RENAL DISEASE; Z99.2 - DEPENDENCE ON RENAL DIALYSIS Assessment/Plan Abx per ID continue other meds monitor bgm-- on Levemir coumadin per inr- continue current dose pain control dialysis per renal will follow
--- NOTE | 2017-11-06 14:55 | PN ---
Progress Note (short form) - Note Progress Note: CCU. 72 year old white female known case of CAD, s/p multivessel PCI/stenting, severe LV systolic dysfunction, s/p ICD, permanent atrial fib, h/o hypotension. DM with multi system involement, ESRD-HD, hypertension admitted with gangreous changes involving the fingers of the left hand requiring amputations. resting comfortably, no SOB, chest pain or discomfort. Active Medications Acetaminophen (Tylenol -) 650 mg PO Q4H PRN PRN Reason: BACK PAIN Last Admin: 11/06/17 13:14 Dose: 650 mg Aspirin (Asa -) 81 mg PO DAILY [facility] Last Admin: 11/06/17 08:59 Dose: 81 mg Calcium Acetate (Phoslo -) 667 mg PO DAILY [facility] Last Admin: 11/06/17 09:01 Dose: 667 mg Cyanocobalamin (Vitamin B12 -) 100 mcg PO DAILY [facility] Last Admin: 11/06/17 09:01 Dose: 100 mcg Diphenhydramine HCl (Benadryl -) 50 mg PO HS PRN PRN Reason: INSOMNIA Docusate Sodium (Colace -) 100 mg PO DAILY [facility] Last Admin: 11/06/17 08:59 Dose: 100 mg Epoetin Sky (Procrit -) 10,000 unit IVPUSH ONCE ONE Stop: 11/07/17 13:25 Tigecycline 50 mg/ Dextrose 100 mls @ 100 mls/hr IVPB BID [facility] PRN Reason: Protocol Last Admin: 11/06/17 10:31 Dose: 100 mls/hr Daptomycin 500 mg/ Sodium (Chloride) 100 mls @ 200 mls/hr IVPB Q48H [facility] PRN Reason: Protocol Last Admin: 11/04/17 17:07 Dose: 200 mls/hr Insulin Aspart (Novolog Vial Sliding Scale -) 1 vial SQ TIDAC [facility] PRN Reason: Protocol Last Admin: 11/06/17 12:24 Dose: 5 units Insulin Detemir (Levemir Vial) 16 units SQ BID@0700,2200 [facility] Last Admin: 11/06/17 07:05 Dose: Not Given Lactobacillus Acidophilus (Bacid -) 1 tab PO DAILY [facility] Last Admin: 11/06/17 08:59 Dose: 1 tab Levothyroxine Sodium (Synthroid -) 125 mcg PO DAILY@0700 [facility] Last Admin: 02/11/18 07:05 Dose: 125 mcg Metoprolol Tartrate (Lopressor -) 12.5 mg PO DAILY [facility] Last Admin: 11/06/17 09:00 Dose: 12.5 mg Morphine Sulfate (Morphine Injection -) 1 mg IVPUSH Q6H PRN PRN Reason: PAIN LEVEL 7 - 10 Nitroglycerin (Nitrostat -) 0.4 mg SL DAILY PRN PRN Reason: FOR CHEST PAIN Ondansetron HCl (Zofran Injection) 4 mg IVPB Q6H PRN PRN Reason: NAUSEA Oxycodone HCl (Roxicodone -) 5 mg PO Q6H PRN PRN Reason: PAIN LEVEL 4 - 6 Last Admin: 11/05/17 22:37 Dose: 5 mg Pantoprazole Sodium (Protonix -) 40 mg PO DAILY [facility] Last Admin: 11/06/17 09:01 Dose: 40 mg Polyethylene Glycol (Miralax (For Daily Use) -) 17 gm PO DAILY [facility] Last Admin: 11/06/17 09:00 Dose: Not Given Senna (Senna -) 1 tab PO HS [facility] Last Admin: 11/05/17 22:37 Dose: 1 tab Warfarin Sodium (Coumadin -) 4 mg PO DAILY@1800 [facility] Last Admin: 11/05/17 18:00 Dose: 4 mg 72 year old female in no acute distress, no pallor or cyanosis. Last Vital Signs Temp Pulse Resp BP Pulse Ox 97.8 F 80 irregular 18 94/57 100 11/05/17 23:37 11/06/17 07:00 11/06/17 07:00 11/06/17 07:00 11/06/17 08:06 NECK: Supple, no JVD, carotids 1-2+, no bruits heards. anterior surgical scar. HEART: PMI in the 5th ICS, LINDA II/ 2nd right ICS. no gallops heard. LUNGS; Clear on auscultation. ABDOMEN: Soft, nontender, no organomegalty or masses felt. EXTREMITIES: Rt. AKA, left partial amputation of the foot. Left hand is bandaged. CBC, BMP 11/05/17 06:15 11/05/17 06:15 IMPRESSION: 1. Diabetes mellitus with multisystem involvement. 2. Elevated Troponins secondary to ESRD, cannot exclude myocardial ischemia. 3. ESRD-HD. 4. CAD, multovessel vessel PCI/Stenting. 5. Permanent atrial fib. with controlled ventricular response. 6. Hypertension. 7. Severe LV systolic dysfunction. 8. S/P 9 ICD. REcommendations: 1. Continue therapy. 2. F/u CBC and BMP.
--- NOTE | 2017-11-06 15:01 | PN ---
Progress Note, Physician Chief Complaint: 72 The patient seen in the ICU. Feeling better. Getting in-bed PT in her room. Afebrile History of Present Illness: 72 year old woman with PMhx of ESRD on HD, Hypertension, CAD, DM on Insulin, PVD who presented with worsening hand pain. The patient had I and D of hand abscess. - Current Medication List Current Medications: Active Medications Acetaminophen (Tylenol -) 650 mg PO Q4H PRN PRN Reason: BACK PAIN Last Admin: 11/06/17 13:14 Dose: 650 mg Aspirin (Asa -) 81 mg PO DAILY [facility] Last Admin: 11/06/17 08:59 Dose: 81 mg Calcium Acetate (Phoslo -) 667 mg PO DAILY [facility] Last Admin: 11/06/17 09:01 Dose: 667 mg Cyanocobalamin (Vitamin B12 -) 100 mcg PO DAILY [facility] Last Admin: 11/06/17 09:01 Dose: 100 mcg Diphenhydramine HCl (Benadryl -) 50 mg PO HS PRN PRN Reason: INSOMNIA Docusate Sodium (Colace -) 100 mg PO DAILY [facility] Last Admin: 11/06/17 08:59 Dose: 100 mg Epoetin Sky (Procrit -) 10,000 unit IVPUSH ONCE ONE Stop: 11/07/17 13:25 Tigecycline 50 mg/ Dextrose 100 mls @ 100 mls/hr IVPB BID [facility] PRN Reason: Protocol Last Admin: 11/06/17 10:31 Dose: 100 mls/hr Daptomycin 500 mg/ Sodium (Chloride) 100 mls @ 200 mls/hr IVPB Q48H [facility] PRN Reason: Protocol Last Admin: 11/04/17 17:07 Dose: 200 mls/hr Insulin Aspart (Novolog Vial Sliding Scale -) 1 vial SQ TIDAC [facility] PRN Reason: Protocol Last Admin: 11/06/17 12:24 Dose: 5 units Insulin Detemir (Levemir Vial) 16 units SQ BID@0700,2200 [facility] Last Admin: 11/06/17 07:05 Dose: Not Given Lactobacillus Acidophilus (Bacid -) 1 tab PO DAILY [facility] Last Admin: 11/06/17 08:59 Dose: 1 tab Levothyroxine Sodium (Synthroid -) 125 mcg PO DAILY@0700 [facility] Last Admin: 11/06/17 07:05 Dose: 125 mcg Metoprolol Tartrate (Lopressor -) 12.5 mg PO DAILY [facility] Last Admin: 11/06/17 09:00 Dose: 12.5 mg Morphine Sulfate (Morphine Injection -) 1 mg IVPUSH Q6H PRN PRN Reason: PAIN LEVEL 7 - 10 Nitroglycerin (Nitrostat -) 0.4 mg SL DAILY PRN PRN Reason: FOR CHEST PAIN Ondansetron HCl (Zofran Injection) 4 mg IVPB Q6H PRN PRN Reason: NAUSEA Oxycodone HCl (Roxicodone -) 5 mg PO Q6H PRN PRN Reason: PAIN LEVEL 4 - 6 Last Admin: 11/05/17 22:37 Dose: 5 mg Pantoprazole Sodium (Protonix -) 40 mg PO DAILY [facility] Last Admin: 11/06/17 09:01 Dose: 40 mg Polyethylene Glycol (Miralax (For Daily Use) -) 17 gm PO DAILY [facility] Last Admin: 11/06/17 09:00 Dose: Not Given Senna (Senna -) 1 tab PO HS [facility] Last Admin: 11/05/17 22:37 Dose: 1 tab Warfarin Sodium (Coumadin -) 4 mg PO DAILY@1800 [facility] Last Admin: 11/05/17 18:00 Dose: 4 mg - Objective Vital Signs: Vital Signs Temperature 97.8 F 11/05/17 23:37 Pulse Rate 80 11/06/17 07:00 Respiratory Rate 18 11/06/17 07:00 Blood Pressure 94/57 11/06/17 07:00 O2 Sat by Pulse Oximetry (%) 100 11/06/17 08:06 Constitutional: Yes: Calm, Anxious, Pallor Eyes: Yes: Conjunctiva Clear HENT: Yes: Normocephalic Neck: Yes: Trachea Midline Cardiovascular: Yes: S1, S2 Gastrointestinal: Yes: Normal Bowel Sounds, Soft Extremities: Yes: Amputation (Hand and fingers) Neurological: Yes: Alert Labs: CBC, BMP 11/05/17 06:15 11/05/17 06:15 INR, PTT INR 2.09 (0.82-1.09) H 11/04/17 05:05 Problem List - Problems (1) Cellulitis and abscess of hand Code(s): L03.119 - CELLULITIS OF UNSPECIFIED PART OF LIMB; L02.519 - CUTANEOUS ABSCESS OF UNSPECIFIED HAND (2) Flexor tenosynovitis of finger Code(s): M65.9 - SYNOVITIS AND TENOSYNOVITIS, UNSPECIFIED (3) Anemia Code(s): D64.9 - ANEMIA, UNSPECIFIED Qualifiers: Anemia type: other cause Other causes of anemia: chronic disease, kidney (4) Atrial fibrillation Code(s): I48.91 - UNSPECIFIED ATRIAL FIBRILLATION Qualifiers: Atrial fibrillation type: unspecified Qualified Code(s): I48.91 - Unspecified atrial fibrillation (5) CAD (coronary artery disease) Code(s): I25.10 - ATHSCL HEART DISEASE OF [place] CORONARY ARTERY W/O ANG PCTRS Qualifiers: Coronary Disease-Associated Artery/Lesion type: [place] artery [place] vs. transplanted heart: [place] heart Associated angina: without angina Qualified Code(s): I25.10 - Atherosclerotic heart disease of [place] coronary artery without angina pectoris (6) DM type 2 causing complication Code(s): E11.8 - TYPE 2 DIABETES MELLITUS WITH UNSPECIFIED COMPLICATIONS (7) ESRD on hemodialysis Code(s): N18.6 - END STAGE RENAL DISEASE; Z99.2 - DEPENDENCE ON RENAL DIALYSIS Assessment/Plan 72 year old woman with PMhx of ESRD on HD, Hypertension, CAD, DM on Insulin, PVD who presented with worsening hand pain. The patient is hemodynamically lizbeth now. IV Abx well tolerated. Started on PT for the hand. Reviewed clinical status with the family. Next HD in AM Layla Evans MD
[2017-11-06] MEDS: oxyCODONE HCL 5 MG TABLET PO PRN ×2 (17:19→22:24)
[2017-11-06] MEDS: DAPTOMYCIN 500 MG in SODIUM CHLORIDE 100 ML IVPB SCH (18:23)
[2017-11-06 18:48] LABS: INR 4.34 (0.82-1.09)
[2017-11-06] MEDS: WARFARIN NA 2 MG TABLET (UD) PO SCH (18:59)
[2017-11-06] MEDS: SENNOSIDES 8.6MG TABLET (FP) PO SCH (22:13)
[2017-11-06] MEDS: diphenhydrAMINE HCL 25 MG CAPSULE (FP) PO PRN (22:24)
[2017-11-07] MEDS: ACETAMINOPHEN 325 MG TABLET (FP) PO PRN ×2 (00:12→13:57)
[2017-11-07] MEDS: INSULIN SLIDING SCALE (NOVOLOG) 1 VIAL SQ SCH ×3 (06:08→18:03)
[2017-11-07] MEDS: INSULIN DETEMIR 100 UNITS/ML MDV SQ SCH ×2 (06:09→22:23)
[2017-11-07] MEDS: LEVOTHYROXINE NA 125 MCG TABLET (FP) PO SCH (06:09)
[2017-11-07 06:28] LABS: INR 3.51 (0.82-1.09); PROTHROMBIN TIME (PATIENT) 39.7 SEC (9.98-11.88)
--- NOTE | 2017-11-07 09:46 | PN ---
Progress Note, Physician Chief Complaint: left hand wet and dry gangrene History of Present Illness: 72 yo female PMH HTN, DM, HLD, PAD, CHF, A-fib, defibrillator placement,pvd, ESRD (Dialysis on M,W,F- left chest tunnel catheter ), Right AKA amputation, Left foot amputation, and Left hand 2nd-4th digit partial amputation (02/2017) who presents with left hand pain. found to have flexor tenosynovitis and a combination of wet and dry gangrene. She was tranferred to the ICU for stabilization and monitoring after taking medication and experienceing a drop in blood pressure. Report pain was adequately controlled overnight. - Current Medication List Current Medications: Active Medications Acetaminophen (Tylenol -) 650 mg PO Q4H PRN PRN Reason: BACK PAIN Last Admin: 11/07/17 00:12 Dose: 650 mg Aspirin (Asa -) 81 mg PO DAILY [facility] Last Admin: 11/06/17 08:59 Dose: 81 mg Calcium Acetate (Phoslo -) 667 mg PO DAILY [facility] Last Admin: 11/06/17 09:01 Dose: 667 mg Cyanocobalamin (Vitamin B12 -) 100 mcg PO DAILY [facility] Last Admin: 11/06/17 09:01 Dose: 100 mcg Diphenhydramine HCl (Benadryl -) 50 mg PO HS PRN PRN Reason: INSOMNIA Last Admin: 11/06/17 22:24 Dose: 50 mg Docusate Sodium (Colace -) 100 mg PO DAILY [facility] Last Admin: 11/06/17 08:59 Dose: 100 mg Epoetin Sky (Procrit -) 10,000 unit IVPUSH ONCE ONE Stop: 11/07/17 10:01 Tigecycline 50 mg/ Dextrose 100 mls @ 100 mls/hr IVPB BID [facility] PRN Reason: Protocol Last Admin: 11/06/17 22:12 Dose: 100 mls/hr Daptomycin 500 mg/ Sodium (Chloride) 100 mls @ 200 mls/hr IVPB Q48H [facility] PRN Reason: Protocol Last Admin: 11/06/17 18:23 Dose: 200 mls/hr Insulin Aspart (Novolog Vial Sliding Scale -) 1 vial SQ TIDAC [facility] PRN Reason: Protocol Last Admin: 11/07/17 06:08 Dose: Not Given Insulin Detemir (Levemir Vial) 16 units SQ BID@0700,2200 [facility] Last Admin: 11/07/17 06:09 Dose: Not Given Lactobacillus Acidophilus (Bacid -) 1 tab PO DAILY [facility] Last Admin: 11/06/17 08:59 Dose: 1 tab Levothyroxine Sodium (Synthroid -) 125 mcg PO DAILY@0700 [facility] Last Admin: 11/07/17 06:09 Dose: 125 mcg Metoprolol Tartrate (Lopressor -) 12.5 mg PO DAILY [facility] Last Admin: 11/06/17 09:00 Dose: 12.5 mg Nitroglycerin (Nitrostat -) 0.4 mg SL DAILY PRN PRN Reason: FOR CHEST PAIN Ondansetron HCl (Zofran Injection) 4 mg IVPB Q6H PRN PRN Reason: NAUSEA Oxycodone HCl (Roxicodone -) 5 mg PO Q6H PRN PRN Reason: PAIN LEVEL 4 - 6 Last Admin: 11/06/17 22:24 Dose: 5 mg Pantoprazole Sodium (Protonix -) 40 mg PO DAILY [facility] Last Admin: 11/06/17 09:01 Dose: 40 mg Polyethylene Glycol (Miralax (For Daily Use) -) 17 gm PO DAILY [facility] Last Admin: 11/06/17 09:00 Dose: Not Given Senna (Senna -) 1 tab PO HS [facility] Last Admin: 11/06/17 22:13 Dose: 1 tab Warfarin Sodium (Coumadin -) 4 mg PO DAILY@1800 [facility] Last Admin: 11/06/17 18:59 Dose: Not Given - Objective Vital Signs: Vital Signs Temperature 97.9 F 11/07/17 06:00 Pulse Rate 67 11/07/17 06:00 Respiratory Rate 20 11/07/17 06:00 Blood Pressure 87/67 11/07/17 06:00 O2 Sat by Pulse Oximetry (%) 100 11/06/17 21:00 Constitutional: Yes: Well Nourished, No Distress, Calm Eyes: Yes: Conjunctiva Clear, EOM Intact HENT: Yes: Atraumatic, Normocephalic Neck: Yes: Supple, Trachea Midline Cardiovascular: Yes: Regular Rate and Rhythm, S1, S2. No: Murmur Respiratory: Yes: Regular, CTA Bilaterally Gastrointestinal: Yes: Normal Bowel Sounds, Soft. No: Tenderness Genitourinary: No: CVA Tenderness - Left, CVA Tenderness - Right Extremities: No: Cool, Cyanosis Edema: No Peripheral Pulses WNL: Yes Wound/Incision: Yes: Well Approximated Neurological: Yes: Alert, Oriented Psychiatric: Yes: Alert, Oriented Labs: CBC, BMP 11/05/17 06:15 11/05/17 06:15 INR, PTT INR 3.51 (0.82-1.09) H 11/07/17 05:15 Problem List - Problems (1) Flexor tenosynovitis of finger Assessment/Plan: 72 yo female MMP including Afib on coumadin, DM type 2 and ESRD, Wet gangrene and flexor tenosynovitis left middle finger, dry gangrene of index and ring fingers, poor distal circulation on duplex with PVR left arm. POD#7 s/p Left middle finger irrigation and debridement of flexor tenosynovitis and revision amputation of index middle and ring fingers. on daptomycin and tygacil per ID the wound is very clean. . continue IV antibiotics elevation of left arm above heart adequate analgesia Will need discharge with VNS for daily dressing Dressing change daily Wound measurement: left middle open MCP 1.2x1.2x0.2cm, clean no purulent drainage Dressing instructions: open MCP, Xeroform, loose rolled gauze PT evaluation appreciated This patient is in guarded condition. Time spent reviewing chart, examining patient, talking with providers and/or family and documentation is 35 minutes Code(s): M65.9 - SYNOVITIS AND TENOSYNOVITIS, UNSPECIFIED (2) Cellulitis and abscess of hand Code(s): L03.119 - CELLULITIS OF UNSPECIFIED PART OF LIMB; L02.519 - CUTANEOUS ABSCESS OF UNSPECIFIED HAND (3) Anemia in ESRD (end-stage renal disease) Code(s): N18.6 - END STAGE RENAL DISEASE; D63.1 - ANEMIA IN CHRONIC KIDNEY DISEASE (4) CAD (coronary artery disease) Code(s): I25.10 - ATHSCL HEART DISEASE OF [place] CORONARY ARTERY W/O ANG PCTRS Qualifiers: Coronary Disease-Associated Artery/Lesion type: [place] artery [place] vs. transplanted heart: [place] heart Associated angina: without angina Qualified Code(s): I25.10 - Atherosclerotic heart disease of [place] coronary artery without angina pectoris (5) DM type 2 causing complication Code(s): E11.8 - TYPE 2 DIABETES MELLITUS WITH UNSPECIFIED COMPLICATIONS (6) ESRD on hemodialysis Code(s): N18.6 - END STAGE RENAL DISEASE; Z99.2 - DEPENDENCE ON RENAL DIALYSIS (7) HTN (hypertension) Code(s): I10 - ESSENTIAL (PRIMARY) HYPERTENSION Qualifiers: Hypertension type: essential hypertension Qualified Code(s): I10 - Essential (primary) hypertension (8) Hypercholesterolemia Code(s): E78.00 - PURE HYPERCHOLESTEROLEMIA, UNSPECIFIED
[2017-11-07] MEDS ORDERED: EPOETIN ALFA 10,000 UNIT/1 ML VIAL IVPUSH ONE (10:00)
--- NOTE | 2017-11-07 10:48 | PN ---
Progress Note (short form) - Note Progress Note: pt seen/ examined chart reviewed. comfortable pain ok Vital Signs Temp 97.7 F 11/07/17 09:35 Pulse 98 H 11/07/17 10:10 Resp 18 11/07/17 10:10 BP 111/40 11/07/17 10:10 Pulse Ox 100 11/06/17 21:00 Intake & Output 11/06/17 11/06/17 11/07/17 11:59 23:59 11:59 Intake Total 200 710 60 Balance 200 710 60 Weight 192 lb 6 oz 192 lb 6 oz Intake: IV 40 60 IVSL #2 40 60 IVPB 150 Oral 200 520 Other: Voiding Method Diaper Diaper # Unmeasured Voids Void 1 Bowel Movement No Weight Measurement [facility] Active Medications Acetaminophen (Tylenol -) 650 mg PO Q4H PRN PRN Reason: BACK PAIN Last Admin: 11/07/17 00:12 Dose: 650 mg Aspirin (Asa -) 81 mg PO DAILY [facility] Last Admin: 11/06/17 08:59 Dose: 81 mg Calcium Acetate (Phoslo -) 667 mg PO DAILY [facility] Last Admin: 11/06/17 09:01 Dose: 667 mg Cyanocobalamin (Vitamin B12 -) 100 mcg PO DAILY [facility] Last Admin: 11/06/17 09:01 Dose: 100 mcg Diphenhydramine HCl (Benadryl -) 50 mg PO HS PRN PRN Reason: INSOMNIA Last Admin: 11/06/17 22:24 Dose: 50 mg Docusate Sodium (Colace -) 100 mg PO DAILY [facility] Last Admin: 11/06/17 08:59 Dose: 100 mg Tigecycline 50 mg/ Dextrose 100 mls @ 100 mls/hr IVPB BID [facility] PRN Reason: Protocol Last Admin: 11/06/17 22:12 Dose: 100 mls/hr Daptomycin 500 mg/ Sodium (Chloride) 100 mls @ 200 mls/hr IVPB Q48H [facility] PRN Reason: Protocol Last Admin: 11/06/17 18:23 Dose: 200 mls/hr Insulin Aspart (Novolog Vial Sliding Scale -) 1 vial SQ TIDAC [facility] PRN Reason: Protocol Last Admin: 11/07/17 06:08 Dose: Not Given Insulin Detemir (Levemir Vial) 16 units SQ BID@0700,2200 [facility] Last Admin: 11/07/17 06:09 Dose: Not Given Lactobacillus Acidophilus (Bacid -) 1 tab PO DAILY [facility] Last Admin: 11/06/17 08:59 Dose: 1 tab Levothyroxine Sodium (Synthroid -) 125 mcg PO DAILY@0700 [facility] Last Admin: 11/07/17 06:09 Dose: 125 mcg Metoprolol Tartrate (Lopressor -) 12.5 mg PO DAILY [facility] Last Admin: 11/06/17 09:00 Dose: 12.5 mg Nitroglycerin (Nitrostat -) 0.4 mg SL DAILY PRN PRN Reason: FOR CHEST PAIN Ondansetron HCl (Zofran Injection) 4 mg IVPB Q6H PRN PRN Reason: NAUSEA Oxycodone HCl (Roxicodone -) 5 mg PO Q6H PRN PRN Reason: PAIN LEVEL 4 - 6 Last Admin: 11/06/17 22:24 Dose: 5 mg Pantoprazole Sodium (Protonix -) 40 mg PO DAILY [facility] Last Admin: 11/06/17 09:01 Dose: 40 mg Polyethylene Glycol (Miralax (For Daily Use) -) 17 gm PO DAILY [facility] Last Admin: 11/06/17 09:00 Dose: Not Given Senna (Senna -) 1 tab PO HS [facility] Last Admin: 11/06/17 22:13 Dose: 1 tab Warfarin Sodium (Coumadin -) 4 mg PO DAILY@1800 [facility] Last Admin: 11/06/17 18:59 Dose: Not Given CBC, BMP 11/05/17 06:15 11/05/17 06:15 Physical Exam. Constitutional: Yes: No Distress. comfortable. Cardiovascular: Yes: Regular Rate and Rhythm Respiratory: Yes: Diminished at bases. Gastrointestinal: Yes: Normal Bowel Sounds, Soft. No: Tenderness Extremities: Yes: Amputation, Other (left hand dressing) Edema: No Problem List - Problems (1) Cellulitis and abscess of hand Code(s): L03.119 - CELLULITIS OF UNSPECIFIED PART OF LIMB; L02.519 - CUTANEOUS ABSCESS OF UNSPECIFIED HAND (2) Anemia Code(s): D64.9 - ANEMIA, UNSPECIFIED Qualifiers: Anemia type: other cause Other causes of anemia: chronic disease, kidney (3) Atrial fibrillation Code(s): I48.91 - UNSPECIFIED ATRIAL FIBRILLATION Qualifiers: Atrial fibrillation type: unspecified Qualified Code(s): I48.91 - Unspecified atrial fibrillation (4) DM type 2 causing complication Code(s): E11.8 - TYPE 2 DIABETES MELLITUS WITH UNSPECIFIED COMPLICATIONS (5) ESRD (end stage renal disease) on dialysis Code(s): N18.6 - END STAGE RENAL DISEASE; Z99.2 - DEPENDENCE ON RENAL DIALYSIS Assessment/Plan Clinically stable abx continue present care. coumadin per inr meds reviewed will follow. time spend 25 min. Problem List - Problems (1) Cellulitis and abscess of hand Code(s): L03.119 - CELLULITIS OF UNSPECIFIED PART OF LIMB; L02.519 - CUTANEOUS ABSCESS OF UNSPECIFIED HAND (2) Anemia in ESRD (end-stage renal disease) Code(s): N18.6 - END STAGE RENAL DISEASE; D63.1 - ANEMIA IN CHRONIC KIDNEY DISEASE (3) Atrial fibrillation Code(s): I48.91 - UNSPECIFIED ATRIAL FIBRILLATION Qualifiers: Atrial fibrillation type: unspecified Qualified Code(s): I48.91 - Unspecified atrial fibrillation (4) CAD (coronary artery disease) Code(s): I25.10 - ATHSCL HEART DISEASE OF [place] CORONARY ARTERY W/O ANG PCTRS Qualifiers: Coronary Disease-Associated Artery/Lesion type: [place] artery [place] vs. transplanted heart: [place] heart Associated angina: without angina Qualified Code(s): I25.10 - Atherosclerotic heart disease of [place] coronary artery without angina pectoris (5) ESRD (end stage renal disease) on dialysis Code(s): N18.6 - END STAGE RENAL DISEASE; Z99.2 - DEPENDENCE ON RENAL DIALYSIS (6) HTN (hypertension) Code(s): I10 - ESSENTIAL (PRIMARY) HYPERTENSION Qualifiers: Hypertension type: essential hypertension Qualified Code(s): I10 - Essential (primary) hypertension (7) History of percutaneous coronary intervention Code(s): Z98.890 - OTHER SPECIFIED POSTPROCEDURAL STATES (8) Status post transmetatarsal amputation of left foot Code(s): Z89.432 - ACQUIRED ABSENCE OF LEFT FOOT (9) Unilateral AKA Code(s): Z89.619 - ACQUIRED ABSENCE OF UNSPECIFIED LEG ABOVE KNEE
--- NOTE | 2017-11-07 11:36 | PN ---
Progress Note (short form) - Note Progress Note: d/w patient pathology noted- acute osteo present at margin of amputated digit operative culture klebsiella esbl and vre currently on daptomycin and tygacil- no other options now day #4 antibiotics- will required [facility] treatment for osteomyelitis of the hand Problem List - Problems (1) Flexor tenosynovitis of finger Code(s): M65.9 - SYNOVITIS AND TENOSYNOVITIS, UNSPECIFIED (2) Cellulitis of left hand Code(s): L03.114 - CELLULITIS OF LEFT UPPER LIMB (3) Diabetes Code(s): E11.9 - TYPE 2 DIABETES MELLITUS WITHOUT COMPLICATIONS Qualifiers: Diabetes mellitus type: type 1 Diabetes mellitus complication status: with circulatory complication Diabetes mellitus complication detail: with other circulatory complications Qualified Code(s): E10.59 - Type 1 diabetes mellitus with other circulatory complications (4) ESRD on hemodialysis Code(s): N18.6 - END STAGE RENAL DISEASE; Z99.2 - DEPENDENCE ON RENAL DIALYSIS
[2017-11-07] MEDS ORDERED: PT OWN MED DRAWER 7, Y5N ONE ×2 (13:33→22:10)
[2017-11-07] MEDS: LACTOBACILLUS ACIDOPHILUS 1 EACH TAB (FP) PO SCH (13:35)
[2017-11-07] MEDS: ASPIRIN 81 MG CHEWABLE TABLETS PO SCH (13:35)
[2017-11-07] MEDS: DOCUSATE SODIUM 100 MG CAPSULE (FP) PO SCH (13:36)
[2017-11-07] MEDS: TIGECYCLINE 50 MG in DEXTROSE 5%-WATER - 100 ML IVPB SCH ×2 (13:36→22:17)
[2017-11-07] MEDS: CALCIUM ACETATE 667 MG CAPSULE (FP) PO SCH (13:39)
[2017-11-07] MEDS: CYANOCOBALAMIN (VITAMIN B-12) 100 MCG TABLET PO SCH (13:40)
[2017-11-07] MEDS: PANTOPRAZOLE 40 MG TABLET (FP) PO SCH (13:40)
[2017-11-07] MEDS: METOPROLOL TARTRATE 25 MG TABLET (FP) PO SCH (13:42)
[2017-11-07] MEDS: POLYETHYLENE GLYCOL 3350 119 GM BTL PO SCH (13:54)
[2017-11-07] MEDS: oxyCODONE HCL 5 MG TABLET PO PRN ×2 (13:55→20:07)
--- NOTE | 2017-11-07 16:20 | PN ---
Progress Note (short form) - Note Progress Note: Renal follow up for ESRD on HD Pt seen and examined during dialysis BP stable, goal UF `2.5L access with good flow pt has 5/10 pain in the left hand no sob, chest pain no fever, chills Vital Signs Temperature 97.7 F 11/07/17 09:35 Pulse Rate 122 H 11/07/17 13:15 Respiratory Rate 18 11/07/17 13:15 Blood Pressure 123/92 11/07/17 13:15 O2 Sat by Pulse Oximetry (%) 100 11/07/17 09:00 Intake & Output 11/04/17 11/05/17 11/06/17 11/07/17 23:59 23:59 23:59 23:59 Intake Total 555 35 910 160 Balance 555 35 910 160 Weight 84.028 kg 87.26 kg 87.26 kg NAD RRR Right AKA left hand in dressing CBC, BMP 11/05/17 06:15 11/05/17 06:15 Current Medications Acetaminophen (Tylenol -) 650 mg PO Q4H PRN PRN Reason: BACK PAIN Last Admin: 11/07/17 13:57 Dose: 650 mg Aspirin (Asa -) 81 mg PO DAILY [facility] Last Admin: 11/07/17 13:35 Dose: 81 mg Calcium Acetate (Phoslo -) 667 mg PO DAILY [facility] Last Admin: 11/07/17 13:39 Dose: 667 mg Cyanocobalamin (Vitamin B12 -) 100 mcg PO DAILY [facility] Last Admin: 11/07/17 13:40 Dose: 100 mcg Diphenhydramine HCl (Benadryl -) 50 mg PO HS PRN PRN Reason: INSOMNIA Last Admin: 11/06/17 22:24 Dose: 50 mg Docusate Sodium (Colace -) 100 mg PO DAILY [facility] Last Admin: 11/07/17 13:36 Dose: 100 mg Tigecycline 50 mg/ Dextrose 100 mls @ 100 mls/hr IVPB BID [facility] PRN Reason: Protocol Last Admin: 11/07/17 13:36 Dose: 100 mls/hr Daptomycin 500 mg/ Sodium (Chloride) 100 mls @ 200 mls/hr IVPB Q48H [facility] PRN Reason: Protocol Last Admin: 11/06/17 18:23 Dose: 200 mls/hr Insulin Aspart (Novolog Vial Sliding Scale -) 1 vial SQ TIDAC [facility] PRN Reason: Protocol Last Admin: 11/07/17 13:09 Dose: 3 units Insulin Detemir (Levemir Vial) 16 units SQ BID@0700,2200 [facility] Last Admin: 11/07/17 06:09 Dose: Not Given Lactobacillus Acidophilus (Bacid -) 1 tab PO DAILY [facility] Last Admin: 11/07/17 13:35 Dose: 1 tab Levothyroxine Sodium (Synthroid -) 125 mcg PO DAILY@0700 [facility] Last Admin: 11/07/17 06:09 Dose: 125 mcg Metoprolol Tartrate (Lopressor -) 12.5 mg PO DAILY [facility] Last Admin: 11/07/17 13:42 Dose: 12.5 mg Nitroglycerin (Nitrostat -) 0.4 mg SL DAILY PRN PRN Reason: FOR CHEST PAIN Ondansetron HCl (Zofran Injection) 4 mg IVPB Q6H PRN PRN Reason: NAUSEA Oxycodone HCl (Roxicodone -) 5 mg PO Q6H PRN PRN Reason: PAIN LEVEL 4 - 6 Last Admin: 11/07/17 13:55 Dose: 5 mg Pantoprazole Sodium (Protonix -) 40 mg PO DAILY [facility] Last Admin: 11/07/17 13:40 Dose: 40 mg Polyethylene Glycol (Miralax (For Daily Use) -) 17 gm PO DAILY [facility] Last Admin: 11/07/17 13:54 Dose: 17 grams Senna (Senna -) 1 tab PO HS [facility] Last Admin: 11/06/17 22:13 Dose: 1 tab Warfarin Sodium (Coumadin -) 4 mg PO DAILY@1800 [facility] Last Admin: 11/06/17 18:59 Dose: Not Given 72 year old woman with PMhx of ESRD on HD, Hypertension, DM on Insulin, PVD who presented with worsening hand pain. #ESRD on HD tolerating dialysis well 2kg UF removed will continue 3x weekly HD as inpatient #Hand ischemia/Pain/Collection vultures grew VRE and Ecoli continue Daptomycin and Tigecyline as per MICHAEL Cruz DO
[2017-11-07] MEDS: WARFARIN NA 2 MG TABLET (UD) PO SCH (18:25)
--- NOTE | 2017-11-07 20:04 | PN ---
Progress Note (short form) - Note Progress Note: CCU. 72 year old white female known case of CAD, s/p multivessel PCI/stenting, severe LV systolic dysfunction, s/p ICD, permanent atrial fib, h/o hypotension. DM with multi system involement, ESRD-HD, hypertension admitted with gangreous changes involving the fingers of the left hand requiring amputations. Resting comfortably, undergoing dialysis, no SOB, chest pain or discomfort reported. Active Medications Generic Name Dose Route Start Last Admin Trade Name Freq PRN Reason Stop Dose Admin Acetaminophen 650 mg 10/31/17 16:05 11/07/17 13:57 Tylenol - PO 650 mg Q4H PRN Administration BACK PAIN Aspirin 81 mg 11/01/17 10:00 11/07/17 13:35 Asa - PO 81 mg DAILY [facility] Administration Calcium Acetate 667 mg 11/01/17 10:00 11/07/17 13:39 Phoslo - PO 667 mg DAILY [facility] Administration Cyanocobalamin 100 mcg 11/01/17 10:00 11/07/17 13:40 Vitamin B12 - PO 100 mcg DAILY [facility] Administration Diphenhydramine HCl 50 mg 11/05/17 22:00 11/06/17 22:24 Benadryl - PO 50 mg HS PRN Administration INSOMNIA Docusate Sodium 100 mg 11/01/17 10:00 11/07/17 13:36 Colace - PO 100 mg DAILY [facility] Administration Tigecycline 50 mg/ Dextrose 100 mls @ 100 mls/hr 11/04/17 22:00 11/07/17 13: 36 IVPB 100 mls/hr BID [facility] Administration Protocol Daptomycin 500 mg/ Sodium 100 mls @ 200 mls/hr 11/04/17 16:00 11/06/17 18:23 Chloride IVPB 200 mls/hr Q48H [facility] Administration Protocol Insulin Aspart 1 vial 11/03/17 16:30 11/07/17 18:03 Novolog Vial Sliding Scale - SQ Not Given TIDAC [facility] Protocol Insulin Detemir 16 units 11/02/17 12:17 11/07/17 06:09 Levemir Vial SQ Not Given BID@0700,2200 [facility] Lactobacillus Acidophilus 1 tab 11/01/17 10:00 11/07/17 13:35 Bacid - PO 1 tab DAILY [facility] Administration Levothyroxine Sodium 125 mcg 11/01/17 07:00 11/07/17 06:09 Synthroid - PO 125 mcg DAILY@0700 [facility] Administration Metoprolol Tartrate 12.5 mg 11/01/17 10:00 11/07/17 13:42 Lopressor - PO 12.5 mg DAILY [facility] Administration Nitroglycerin 0.4 mg 10/31/17 16:05 Nitrostat - SL DAILY PRN FOR CHEST PAIN Ondansetron HCl 4 mg 11/04/17 09:31 Zofran Injection IVPB Q6H PRN NAUSEA Oxycodone HCl 5 mg 11/05/17 15:30 11/07/17 13:55 Roxicodone - PO 5 mg Q6H PRN Administration PAIN LEVEL 4 - 6 Pantoprazole Sodium 40 mg 11/01/17 10:00 11/07/17 13:40 Protonix - PO 40 mg DAILY [facility] Administration Polyethylene Glycol 17 gm 11/01/17 10:00 11/07/17 13:54 Miralax (For Daily Use) - PO 17 grams DAILY [facility] Administration Senna 1 tab 10/31/17 22:00 11/06/17 22:13 Senna - PO 1 tab HS [facility] Administration Warfarin Sodium 4 mg 11/04/17 18:00 11/07/17 18:25 Coumadin - PO Not Given DAILY@1800 [facility] 72 year old female in no acute distress, no pallor or cyanosis. Last Vital Signs Temp Pulse Resp BP Pulse Ox 98.4 F 79 irregular 20 104/37 100 11/07/17 19:38 11/07/17 19:38 11/07/17 19:38 11/07/17 19:38 11/07/17 09:00 NECK: Supple, no JVD, carotids 1-2+, no bruits heards. anterior surgical scar. HEART: PMI in the 5th ICS, LINDA II/ 2nd right ICS. no gallops heard. LUNGS; Clear on auscultation. ABDOMEN: Soft, nontender, no organomegalty or masses felt. EXTREMITIES: Rt. AKA, left partial amputation of the foot. Left hand is bandaged. CBC, BMP 11/05/17 06:15 11/05/17 06:15 IMPRESSION: 1. CAD, s/p OR, s/p PCI/stenting. 2. Elevated Troponins secondary to ESRD, cannot exclude myocardial ischemia. 3. ESRD-HD. 4. Diabetes mellitus wth multisystem involement 5. Permanent atrial fib. with controlled ventricular response. 6. Hypertension. 7. Severe LV systolic dysfunction. 8. ICD. REcommendations: 1. Continue therapy. 2. Increase ambulation.
[2017-11-07] MEDS: SENNOSIDES 8.6MG TABLET (FP) PO SCH (22:17)
[2017-11-07] MEDS: diphenhydrAMINE HCL 25 MG CAPSULE (FP) PO PRN (22:20)
[2017-11-08] MEDS: INSULIN DETEMIR 100 UNITS/ML MDV SQ SCH ×2 (06:18→23:19)
[2017-11-08] MEDS: LEVOTHYROXINE NA 125 MCG TABLET (FP) PO SCH (06:18)
[2017-11-08] MEDS: INSULIN SLIDING SCALE (NOVOLOG) 1 VIAL SQ SCH ×3 (06:19→16:51)
[2017-11-08] MEDS: ASPIRIN 81 MG CHEWABLE TABLETS PO SCH (09:30)
[2017-11-08] MEDS: CALCIUM ACETATE 667 MG CAPSULE (FP) PO SCH (09:30)
[2017-11-08] MEDS: PANTOPRAZOLE 40 MG TABLET (FP) PO SCH (09:30)
[2017-11-08] MEDS: CYANOCOBALAMIN (VITAMIN B-12) 100 MCG TABLET PO SCH (09:30)
[2017-11-08] MEDS: DOCUSATE SODIUM 100 MG CAPSULE (FP) PO SCH (09:30)
[2017-11-08] MEDS: METOPROLOL TARTRATE 25 MG TABLET (FP) PO SCH (09:30)
[2017-11-08] MEDS: LACTOBACILLUS ACIDOPHILUS 1 EACH TAB (FP) PO SCH (09:30)
[2017-11-08] MEDS: TIGECYCLINE 50 MG in DEXTROSE 5%-WATER - 100 ML IVPB SCH ×2 (09:31→21:34)
[2017-11-08] MEDS: POLYETHYLENE GLYCOL 3350 119 GM BTL PO SCH (09:31)
[2017-11-08] MEDS: ACETAMINOPHEN 325 MG TABLET (FP) PO PRN ×3 (09:42→21:43)
[2017-11-08] MEDS: oxyCODONE HCL 5 MG TABLET PO PRN ×3 (09:43→23:14)
--- NOTE | 2017-11-08 10:39 | PN ---
Progress Note (short form) - Note Progress Note: CCU. 72 year old white female known case of CAD, s/p multivessel PCI/stenting, severe LV systolic dysfunction, s/p ICD, permanent atrial fib, h/o hypotension. DM with multi system involement, ESRD-HD, hypertension admitted with gangreous changes involving the fingers of the left hand requiring amputations and found to have bone infection in the amputated finger. No SOB or chest pain or discomfort. Active Medications Generic Name Dose Route Start Last Admin Trade Name Freq PRN Reason Stop Dose Admin Acetaminophen 650 mg 10/31/17 16:05 11/08/17 09:42 Tylenol - PO 650 mg Q4H PRN Administration BACK PAIN Aspirin 81 mg 11/01/17 10:00 11/08/17 09:30 Asa - PO 81 mg DAILY [facility] Administration Calcium Acetate 667 mg 11/01/17 10:00 11/08/17 09:30 Phoslo - PO 667 mg DAILY [facility] Administration Cyanocobalamin 100 mcg 11/01/17 10:00 11/08/17 09:30 Vitamin B12 - PO 100 mcg DAILY [facility] Administration Diphenhydramine HCl 50 mg 11/05/17 22:00 11/07/17 22:20 Benadryl - PO 50 mg HS PRN Administration INSOMNIA Docusate Sodium 100 mg 11/01/17 10:00 11/08/17 09:30 Colace - PO 100 mg DAILY [facility] Administration Tigecycline 50 mg/ Dextrose 100 mls @ 100 mls/hr 11/04/17 22:00 11/08/17 09: 31 IVPB Not Given BID [facility] Protocol Daptomycin 500 mg/ Sodium 100 mls @ 200 mls/hr 11/04/17 16:00 11/06/17 18:23 Chloride IVPB 200 mls/hr Q48H [facility] Administration Protocol Insulin Aspart 1 vial 11/03/17 16:30 11/08/17 06:19 Novolog Vial Sliding Scale - SQ 3 units TIDAC [facility] Administration Protocol Insulin Detemir 16 units 11/02/17 12:17 11/08/17 06:18 Levemir Vial SQ 16 units BID@0700,2200 [facility] Administration Lactobacillus Acidophilus 1 tab 11/01/17 10:00 11/08/17 09:30 Bacid - PO 1 tab DAILY [facility] Administration Levothyroxine Sodium 125 mcg 11/01/17 07:00 11/08/17 06:18 Synthroid - PO 125 mcg DAILY@0700 [facility] Administration Metoprolol Tartrate 12.5 mg 11/01/17 10:00 11/08/17 09:30 Lopressor - PO Not Given DAILY [facility] Nitroglycerin 0.4 mg 10/31/17 16:05 Nitrostat - SL DAILY PRN FOR CHEST PAIN Ondansetron HCl 4 mg 11/04/17 09:31 Zofran Injection IVPB Q6H PRN NAUSEA Oxycodone HCl 5 mg 11/05/17 15:30 11/08/17 09:43 Roxicodone - PO 5 mg Q6H PRN Administration PAIN LEVEL 4 - 6 Pantoprazole Sodium 40 mg 11/01/17 10:00 11/08/17 09:30 Protonix - PO 40 mg DAILY [facility] Administration Polyethylene Glycol 17 gm 11/01/17 10:00 11/08/17 09:31 Miralax (For Daily Use) - PO Not Given DAILY [facility] Senna 1 tab 10/31/17 22:00 11/07/17 22:17 Senna - PO 1 tab HS [facility] Administration Warfarin Sodium 4 mg 11/04/17 18:00 11/07/17 18:25 Coumadin - PO Not Given DAILY@1800 [facility] 72 year old female in no acute distress, no pallor or cyanosis. Last Vital Signs Temp Pulse Resp BP Pulse Ox 98.3 F 88 18 92/26 100 11/08/17 06:00 11/08/17 08:54 11/08/17 08:54 11/08/17 08:54 11/07/17 20:17 NECK: Supple, no JVD, carotids 1-2+, no bruits heards. anterior surgical scar. HEART: PMI in the 5th ICS, LINDA II/ 2nd right ICS. no gallops heard. LUNGS; Clear on auscultation. ABDOMEN: Soft, nontender, no organomegalty or masses felt. EXTREMITIES: Rt. AKA, left partial amputation of the foot. Left hand is bandaged. CBC, BMP 11/05/17 06:15 11/05/17 06:15 IMPRESSION: 1. CAD, s/p [place], s/p PCI/stenting. 2. Elevated Troponins secondary to ESRD, cannot exclude myocardial ischemia. 3. ESRD-HD. 4. Diabetes mellitus wth multisystem involement 5. Permanent atrial fib. with controlled ventricular response. 6. Hypertension. 7. Severe LV systolic dysfunction. 8. ICD. REcommendations: 1. Continue therapy. 2. Increase ambulation. 3. F/u CBC and BMP.
[2017-11-08] MEDS ORDERED: PORTA CATH FLUSH 10 ML IVPUSH PRN (11:34)
--- NOTE | 2017-11-08 11:34 | PN ---
Progress Note, Physician Chief Complaint: pt examined Has mild to moderate pain , better with Tylenol No distress - Current Medication List Current Medications: Active Medications Acetaminophen (Tylenol -) 650 mg PO Q4H PRN PRN Reason: BACK PAIN Last Admin: 11/08/17 09:42 Dose: 650 mg Aspirin (Asa -) 81 mg PO DAILY [facility] Last Admin: 11/08/17 09:30 Dose: 81 mg Calcium Acetate (Phoslo -) 667 mg PO DAILY [facility] Last Admin: 11/08/17 09:30 Dose: 667 mg Cyanocobalamin (Vitamin B12 -) 100 mcg PO DAILY [facility] Last Admin: 11/08/17 09:30 Dose: 100 mcg Diphenhydramine HCl (Benadryl -) 50 mg PO HS PRN PRN Reason: INSOMNIA Last Admin: 11/07/17 22:20 Dose: 50 mg Docusate Sodium (Colace -) 100 mg PO DAILY [facility] Last Admin: 11/08/17 09:30 Dose: 100 mg Tigecycline 50 mg/ Dextrose 100 mls @ 100 mls/hr IVPB BID [facility] PRN Reason: Protocol Last Admin: 11/08/17 09:31 Dose: Not Given Daptomycin 500 mg/ Sodium (Chloride) 100 mls @ 200 mls/hr IVPB Q48H [facility] PRN Reason: Protocol Last Admin: 11/06/17 18:23 Dose: 200 mls/hr Insulin Aspart (Novolog Vial Sliding Scale -) 1 vial SQ TIDAC [facility] PRN Reason: Protocol Last Admin: 11/08/17 06:19 Dose: 3 units Insulin Detemir (Levemir Vial) 16 units SQ BID@0700,2200 [facility] Last Admin: 11/08/17 06:18 Dose: 16 units Lactobacillus Acidophilus (Bacid -) 1 tab PO DAILY [facility] Last Admin: 11/08/17 09:30 Dose: 1 tab Levothyroxine Sodium (Synthroid -) 125 mcg PO DAILY@0700 [facility] Last Admin: 11/08/17 06:18 Dose: 125 mcg Metoprolol Tartrate (Lopressor -) 12.5 mg PO DAILY [facility] Last Admin: 11/08/17 09:30 Dose: Not Given Nitroglycerin (Nitrostat -) 0.4 mg SL DAILY PRN PRN Reason: FOR CHEST PAIN Ondansetron HCl (Zofran Injection) 4 mg IVPB Q6H PRN PRN Reason: NAUSEA Oxycodone HCl (Roxicodone -) 5 mg PO Q6H PRN PRN Reason: PAIN LEVEL 4 - 6 Last Admin: 11/08/17 09:43 Dose: 5 mg Pantoprazole Sodium (Protonix -) 40 mg PO DAILY [facility] Last Admin: 11/08/17 09:30 Dose: 40 mg Polyethylene Glycol (Miralax (For Daily Use) -) 17 gm PO DAILY [facility] Last Admin: 11/08/17 09:31 Dose: Not Given Senna (Senna -) 1 tab PO HS [facility] Last Admin: 11/07/17 22:17 Dose: 1 tab Warfarin Sodium (Coumadin -) 4 mg PO DAILY@1800 [facility] Last Admin: 11/07/17 18:25 Dose: Not Given - Objective Vital Signs: Vital Signs Temperature 98.3 F 11/08/17 06:00 Pulse Rate 88 11/08/17 08:54 Respiratory Rate 18 11/08/17 08:54 Blood Pressure 92/26 11/08/17 08:54 O2 Sat by Pulse Oximetry (%) 100 11/07/17 20:17 Constitutional: Yes: No Distress, Calm Cardiovascular: Yes: Regular Rate and Rhythm Respiratory: Yes: CTA Bilaterally Gastrointestinal: Yes: Normal Bowel Sounds, Soft. No: Tenderness Extremities: Yes: Amputation, Other (left hand dressing in place) Edema: No Labs: CBC, BMP 11/05/17 06:15 11/05/17 06:15 INR, PTT INR 3.51 (0.82-1.09) H 11/07/17 05:15 Problem List - Problems (1) Cellulitis and abscess of hand Code(s): L03.119 - CELLULITIS OF UNSPECIFIED PART OF LIMB; L02.519 - CUTANEOUS ABSCESS OF UNSPECIFIED HAND (2) Anemia Code(s): D64.9 - ANEMIA, UNSPECIFIED Qualifiers: Anemia type: other cause Other causes of anemia: chronic disease, kidney (3) Atrial fibrillation Code(s): I48.91 - UNSPECIFIED ATRIAL FIBRILLATION Qualifiers: Atrial fibrillation type: unspecified Qualified Code(s): I48.91 - Unspecified atrial fibrillation (4) DM type 2 causing complication Code(s): E11.8 - TYPE 2 DIABETES MELLITUS WITH UNSPECIFIED COMPLICATIONS (5) ESRD (end stage renal disease) on dialysis Code(s): N18.6 - END STAGE RENAL DISEASE; Z99.2 - DEPENDENCE ON RENAL DIALYSIS Assessment/Plan Abx per ID-- needs total 6 weeks-- Dapto +Tigecil-- spoke with nurse-- needs picc line for antibiotics will hold coumadin in anticipation for procedure continue other meds monitor bgm-- on Levemir dc planning-- case managers to contact facility where pt may receive both Dapto + Tigecil , dialysis pain control dialysis per renal will follow
--- NOTE | 2017-11-08 11:42 | PN ---
Progress Note, Physician Chief Complaint: left hand wet and dry gangrene History of Present Illness: 72 yo female PMH HTN, DM, HLD, PAD, CHF, A-fib, defibrillator placement,pvd, ESRD (Dialysis on M,W,F- left chest tunnel catheter ), Right AKA amputation, Left foot amputation, and Left hand 2nd-4th digit partial amputation (02/2017) who presents with left hand pain. found to have flexor tenosynovitis and a combination of wet and dry gangrene. Report pain was adequately controlled overnight. - Current Medication List Current Medications: Active Medications Acetaminophen (Tylenol -) 650 mg PO Q4H PRN PRN Reason: BACK PAIN Last Admin: 11/08/17 09:42 Dose: 650 mg Aspirin (Asa -) 81 mg PO DAILY [facility] Last Admin: 11/08/17 09:30 Dose: 81 mg Calcium Acetate (Phoslo -) 667 mg PO DAILY [facility] Last Admin: 11/08/17 09:30 Dose: 667 mg Cyanocobalamin (Vitamin B12 -) 100 mcg PO DAILY [facility] Last Admin: 11/08/17 09:30 Dose: 100 mcg Diphenhydramine HCl (Benadryl -) 50 mg PO HS PRN PRN Reason: INSOMNIA Last Admin: 11/07/17 22:20 Dose: 50 mg Docusate Sodium (Colace -) 100 mg PO DAILY [facility] Last Admin: 11/08/17 09:30 Dose: 100 mg IV Flush (Kate-Cath Flush) 10 ml IVPUSH PRN PRN PRN Reason: Protocol Tigecycline 50 mg/ Dextrose 100 mls @ 100 mls/hr IVPB BID [facility] PRN Reason: Protocol Last Admin: 11/08/17 09:31 Dose: Not Given Daptomycin 500 mg/ Sodium (Chloride) 100 mls @ 200 mls/hr IVPB Q48H [facility] PRN Reason: Protocol Last Admin: 11/06/17 18:23 Dose: 200 mls/hr Insulin Aspart (Novolog Vial Sliding Scale -) 1 vial SQ TIDAC [facility] PRN Reason: Protocol Last Admin: 11/08/17 06:19 Dose: 3 units Insulin Detemir (Levemir Vial) 16 units SQ BID@0700,2200 [facility] Last Admin: 11/08/17 06:18 Dose: 16 units Lactobacillus Acidophilus (Bacid -) 1 tab PO DAILY [facility] Last Admin: 11/08/17 09:30 Dose: 1 tab Levothyroxine Sodium (Synthroid -) 125 mcg PO DAILY@0700 [facility] Last Admin: 11/08/17 06:18 Dose: 125 mcg Metoprolol Tartrate (Lopressor -) 12.5 mg PO DAILY [facility] Last Admin: 11/08/17 09:30 Dose: Not Given Nitroglycerin (Nitrostat -) 0.4 mg SL DAILY [facility] PRN Reason: FOR CHEST PAIN Ondansetron HCl (Zofran Injection) 4 mg IVPB Q6H PRN PRN Reason: NAUSEA Oxycodone HCl (Roxicodone -) 5 mg PO Q6H PRN PRN Reason: PAIN LEVEL 4 - 6 Last Admin: 11/08/17 09:43 Dose: 5 mg Pantoprazole Sodium (Protonix -) 40 mg PO DAILY [facility] Last Admin: 11/08/17 09:30 Dose: 40 mg Polyethylene Glycol (Miralax (For Daily Use) -) 17 gm PO DAILY [facility] Last Admin: 11/08/17 09:31 Dose: Not Given Senna (Senna -) 1 tab PO HS [facility] Last Admin: 11/07/17 22:17 Dose: 1 tab - Objective Vital Signs: Vital Signs Temperature 98.3 F 11/08/17 06:00 Pulse Rate 88 11/08/17 08:54 Respiratory Rate 18 11/08/17 08:54 Blood Pressure 92/26 11/08/17 08:54 ??? O2 Sat by Pulse Oximetry (%) 100 11/07/17 20:17 Vital Signs Period Temp Pulse Resp BP Sys/Cordero Pulse Ox Last 24 Hr 98 F-98.4 F 71-122 18-20 75-133/26-114 100 Intake & Output 11/07/17 11/08/17 11/08/17 23:59 07:59 15:59 Intake Total 200 100 140 Balance 200 100 140 Weight 189 lb 1 oz Intake: IVPB 100 100 Oral 100 140 Other: Voiding Method Diaper Bowel Movement No Weight Measurement Method Built in [facility] Constitutional: Yes: Well Nourished, No Distress, Calm Eyes: Yes: Conjunctiva Clear, EOM Intact HENT: Yes: Atraumatic, Normocephalic Neck: Yes: Supple, Trachea Midline Cardiovascular: Yes: Regular Rate and Rhythm, S1, S2. No: Murmur Respiratory: Yes: Regular, CTA Bilaterally Gastrointestinal: Yes: Normal Bowel Sounds, Soft ...Rectal Exam: No: Deferred Genitourinary: No: CVA Tenderness - Left, CVA Tenderness - Right Extremities: Yes: Amputation (lower extremities and left hand). No: Cool, Cyanosis Edema: No Peripheral Pulses WNL: Yes Peripheral Pulses: Left Radial: 2+ Wound/Incision: Yes: Clean/Dry, Sutures Intact, Dressing Dry and Intact, Dressing Removed, Unapproximated (left middle MCP). No: Draining, Reddened, Bleeding Neurological: Yes: Alert, Oriented Psychiatric: Yes: Alert, Oriented Labs: Microbiology 10/31/17 16:30 Hand - Left Gram Stain - Final 10/31/17 16:30 Hand - Left Wound Culture - Preliminary Klebsiella Pneumoniae - Esbl Vr Ec Faecalis 10/30/17 16:28 Blood - Peripheral Venous Blood Culture - Final NO GROWTH AFTER 5 DAYS INCUBATION 10/30/17 15:43 Blood - Peripheral Venous Blood Culture - Final NO GROWTH AFTER 5 DAYS INCUBATION Problem List - Problems (1) Gangrene of hand Assessment/Plan: 72 yo female MMP including Afib on coumadin, DM type 2 and ESRD, Wet gangrene and flexor tenosynovitis left middle finger, dry gangrene of index and ring fingers, poor distal circulation on duplex with PVR left arm. POD#8 s/p Left middle finger irrigation and debridement of flexor tenosynovitis and revision amputation of index middle and ring fingers. on daptomycin and tygacil per ID the wound is very clean. continue IV antibiotics - agree with plan for PICC adequate analgesia Will need discharge with VNS for daily dressing Wound measurement: left middle open MCP 1.2x1.2x0.2cm, clean no purulent drainage Dressing instructions: open MCP, Xeroform, loose rolled gauze PT evaluation appreciated Can be discharged to appropriate SNF Follow-up plan in discharge plan Code(s): I96 - GANGRENE, NOT ELSEWHERE CLASSIFIED (2) Flexor tenosynovitis of finger Code(s): M65.9 - SYNOVITIS AND TENOSYNOVITIS, UNSPECIFIED (3) Cellulitis and abscess of hand Code(s): L03.119 - CELLULITIS OF UNSPECIFIED PART OF LIMB; L02.519 - CUTANEOUS ABSCESS OF UNSPECIFIED HAND (4) Anemia in ESRD (end-stage renal disease) Code(s): N18.6 - END STAGE RENAL DISEASE; D63.1 - ANEMIA IN CHRONIC KIDNEY DISEASE (5) CAD (coronary artery disease) Code(s): I25.10 - ATHSCL HEART DISEASE OF [place] CORONARY ARTERY W/O ANG PCTRS Qualifiers: Coronary Disease-Associated Artery/Lesion type: [place] artery [place] vs. transplanted heart: [place] heart Associated angina: without angina Qualified Code(s): I25.10 - Atherosclerotic heart disease of [place] coronary artery without angina pectoris (6) DM type 2 causing complication Code(s): E11.8 - TYPE 2 DIABETES MELLITUS WITH UNSPECIFIED COMPLICATIONS (7) ESRD on hemodialysis Code(s): N18.6 - END STAGE RENAL DISEASE; Z99.2 - DEPENDENCE ON RENAL DIALYSIS (8) HTN (hypertension) Code(s): I10 - ESSENTIAL (PRIMARY) HYPERTENSION Qualifiers: Hypertension type: essential hypertension Qualified Code(s): I10 - Essential (primary) hypertension (9) Hypercholesterolemia Code(s): E78.00 - PURE HYPERCHOLESTEROLEMIA, UNSPECIFIED
--- NOTE | 2017-11-08 14:53 | PN ---
Progress Note (short form) - Note Progress Note: Renal follow up for ESRD on HD Pt seen and examined at the bedside no overnight events pain controlled in hand s/p dialysis yesterday Vital Signs Temperature 98.3 F 11/08/17 06:00 Pulse Rate 92 H 11/08/17 13:43 Respiratory Rate 18 11/08/17 13:43 Blood Pressure 89/76 11/08/17 13:43 O2 Sat by Pulse Oximetry (%) 100 11/08/17 09:00 Intake & Output 11/05/17 11/06/17 11/07/17 11/08/17 23:59 23:59 23:59 23:59 Intake Total 35 910 360 240 Balance 35 910 360 240 Weight 84.028 kg 87.26 kg 87.26 kg 85.757 kg NAD RRR Right AKA left hand in dressing CBC, BMP 11/05/17 06:15 11/05/17 06:15 Current Medications Acetaminophen (Tylenol -) 650 mg PO Q4H PRN PRN Reason: BACK PAIN Last Admin: 11/08/17 09:42 Dose: 650 mg Aspirin (Asa -) 81 mg PO DAILY [facility] Last Admin: 11/08/17 09:30 Dose: 81 mg Calcium Acetate (Phoslo -) 667 mg PO DAILY [facility] Last Admin: 11/08/17 09:30 Dose: 667 mg Cyanocobalamin (Vitamin B12 -) 100 mcg PO DAILY [facility] Last Admin: 11/08/17 09:30 Dose: 100 mcg Diphenhydramine HCl (Benadryl -) 50 mg PO HS PRN PRN Reason: INSOMNIA Last Admin: 11/07/17 22:20 Dose: 50 mg Docusate Sodium (Colace -) 100 mg PO DAILY [facility] Last Admin: 11/08/17 09:30 Dose: 100 mg IV Flush (Kate-Cath Flush) 10 ml IVPUSH PRN PRN PRN Reason: Protocol Tigecycline 50 mg/ Dextrose 100 mls @ 100 mls/hr IVPB BID [facility] PRN Reason: Protocol Last Admin: 11/08/17 09:31 Dose: Not Given Daptomycin 500 mg/ Sodium (Chloride) 100 mls @ 200 mls/hr IVPB Q48H [facility] PRN Reason: Protocol Last Admin: 11/06/17 18:23 Dose: 200 mls/hr Insulin Aspart (Novolog Vial Sliding Scale -) 1 vial SQ TIDAC [facility] PRN Reason: Protocol Last Admin: 11/08/17 12:54 Dose: Not Given Insulin Detemir (Levemir Vial) 16 units SQ BID@0700,2200 [facility] Last Admin: 11/08/17 06:18 Dose: 16 units Lactobacillus Acidophilus (Bacid -) 1 tab PO DAILY [facility] Last Admin: 11/08/17 09:30 Dose: 1 tab Levothyroxine Sodium (Synthroid -) 125 mcg PO DAILY@0700 [facility] Last Admin: 11/08/17 06:18 Dose: 125 mcg Metoprolol Tartrate (Lopressor -) 12.5 mg PO DAILY [facility] Last Admin: 11/08/17 09:30 Dose: Not Given Nitroglycerin (Nitrostat -) 0.4 mg SL DAILY [facility] PRN Reason: FOR CHEST PAIN Ondansetron HCl (Zofran Injection) 4 mg IVPB Q6H PRN PRN Reason: NAUSEA Oxycodone HCl (Roxicodone -) 5 mg PO Q6H PRN PRN Reason: PAIN LEVEL 4 - 6 Last Admin: 11/08/17 09:43 Dose: 5 mg Pantoprazole Sodium (Protonix -) 40 mg PO DAILY [facility] Last Admin: 11/08/17 09:30 Dose: 40 mg Polyethylene Glycol (Miralax (For Daily Use) -) 17 gm PO DAILY [facility] Last Admin: 11/08/17 09:31 Dose: Not Given Senna (Senna -) 1 tab PO HS [facility] Last Admin: 11/07/17 22:17 Dose: 1 tab 72 year old woman with PMhx of ESRD on HD, Hypertension, DM on Insulin, PVD who presented with worsening hand pain. #ESRD on HD s/p dialysis yesterday no acute indication for [employer] today will continue HD 3x weekly dose all meds for intermittent HD #Hand ischemia/Pain/Collection vultures grew VRE and Ecoli continue Daptomycin and Tigecyline as per MICHAEL Cruz DO
[2017-11-08] MEDS: DAPTOMYCIN 500 MG in SODIUM CHLORIDE 100 ML IVPB SCH (15:10)
[2017-11-08 17:30] LABS: INR 2.33 (0.82-1.09); PROTHROMBIN TIME (PATIENT) 26.3 SEC (9.98-11.88)
[2017-11-08] MEDS ORDERED: PT OWN MED DRAWER 7, Y5N ONE ×2 (20:52→21:29)
[2017-11-08] MEDS: SENNOSIDES 8.6MG TABLET (FP) PO SCH (21:34)
[2017-11-09] MEDS: diphenhydrAMINE HCL 25 MG CAPSULE (FP) PO PRN ×2 (00:14→23:51)
[2017-11-09] MEDS ORDERED: PT OWN MED DRAWER 7, Y5N ONE ×3 (04:56→20:48)
[2017-11-09] MEDS: INSULIN SLIDING SCALE (NOVOLOG) 1 VIAL SQ SCH ×3 (06:10→18:25)
[2017-11-09] MEDS: LEVOTHYROXINE NA 125 MCG TABLET (FP) PO SCH (06:17)
[2017-11-09] MEDS: INSULIN DETEMIR 100 UNITS/ML MDV SQ SCH ×2 (06:21→21:45)
[2017-11-09 06:42] LABS: INR 2.1 (0.82-1.09); PROTHROMBIN TIME (PATIENT) 23.7 SEC (9.98-11.88)
--- NOTE | 2017-11-09 09:34 | PN ---
Progress Note, Physician Chief Complaint: left hand wet and dry gangrene History of Present Illness: 72 yo female PMH HTN, DM, HLD, PAD, CHF, A-fib, defibrillator placement,pvd, ESRD (Dialysis on M,W,F- left chest tunnel catheter ), Right AKA amputation, Left foot amputation, and Left hand 2nd-4th digit partial amputation (02/2017) who presents with left hand pain. found to have flexor tenosynovitis and a combination of wet and dry gangrene. Report pain was adequately controlled overnight. - Current Medication List Current Medications: Active Medications Acetaminophen (Tylenol -) 650 mg PO Q4H PRN PRN Reason: BACK PAIN Last Admin: 11/08/17 21:43 Dose: 650 mg Aspirin (Asa -) 81 mg PO DAILY [facility] Last Admin: 11/08/17 09:30 Dose: 81 mg Calcium Acetate (Phoslo -) 667 mg PO DAILY [facility] Last Admin: 11/08/17 09:30 Dose: 667 mg Cyanocobalamin (Vitamin B12 -) 100 mcg PO DAILY [facility] Last Admin: 11/08/17 09:30 Dose: 100 mcg Diphenhydramine HCl (Benadryl -) 50 mg PO HS PRN PRN Reason: INSOMNIA Last Admin: 11/09/17 00:14 Dose: 50 mg Docusate Sodium (Colace -) 100 mg PO DAILY [facility] Last Admin: 11/08/17 09:30 Dose: 100 mg IV Flush (Kate-Cath Flush) 10 ml IVPUSH PRN PRN PRN Reason: Protocol Tigecycline 50 mg/ Dextrose 100 mls @ 100 mls/hr IVPB BID [facility] PRN Reason: Protocol Last Admin: 11/08/17 21:34 Dose: 100 mls/hr Daptomycin 500 mg/ Sodium (Chloride) 100 mls @ 200 mls/hr IVPB Q48H [facility] PRN Reason: Protocol Last Admin: 11/08/17 15:10 Dose: 200 mls/hr Insulin Aspart (Novolog Vial Sliding Scale -) 1 vial SQ TIDAC [facility] PRN Reason: Protocol Last Admin: 11/09/17 06:10 Dose: Not Given Insulin Detemir (Levemir Vial) 16 units SQ BID@0700,2200 [facility] Last Admin: 11/09/17 06:21 Dose: 16 units Lactobacillus Acidophilus (Bacid -) 1 tab PO DAILY [facility] Last Admin: 11/08/17 09:30 Dose: 1 tab Levothyroxine Sodium (Synthroid -) 125 mcg PO DAILY@0700 [facility] Last Admin: 11/09/17 06:17 Dose: 125 mcg Metoprolol Tartrate (Lopressor -) 12.5 mg PO DAILY [facility] Last Admin: 11/08/17 09:30 Dose: Not Given Nitroglycerin (Nitrostat -) 0.4 mg SL DAILY [facility] PRN Reason: FOR CHEST PAIN Ondansetron HCl (Zofran Injection) 4 mg IVPB Q6H PRN PRN Reason: NAUSEA Oxycodone HCl (Roxicodone -) 5 mg PO Q6H PRN PRN Reason: PAIN LEVEL 4 - 6 Last Admin: 11/08/17 23:14 Dose: 5 mg Pantoprazole Sodium (Protonix -) 40 mg PO DAILY [facility] Last Admin: 11/08/17 09:30 Dose: 40 mg Polyethylene Glycol (Miralax (For Daily Use) -) 17 gm PO DAILY [facility] Last Admin: 11/08/17 09:31 Dose: Not Given Senna (Senna -) 1 tab PO HS [facility] Last Admin: 11/08/17 21:34 Dose: 1 tab - Objective Vital Signs: Vital Signs Temperature 98.5 F 11/09/17 02:00 Pulse Rate 68 11/09/17 07:48 Respiratory Rate 18 11/09/17 07:48 Blood Pressure 96/48 11/09/17 07:48 O2 Sat by Pulse Oximetry (%) 99 11/08/17 21:00 Vital Signs Period Temp Pulse Resp BP Sys/Cordero Pulse Ox Last 24 Hr 98.5 F-98.6 F 68-92 18-18 89-127/48-76 99 Constitutional: Yes: No Distress, Calm Eyes: Yes: Conjunctiva Clear, EOM Intact HENT: Yes: Atraumatic, Normocephalic Cardiovascular: Yes: Regular Rate and Rhythm, S1, S2 Respiratory: Yes: Regular, CTA Bilaterally Gastrointestinal: Yes: Normal Bowel Sounds, Soft. No: Tenderness ...Rectal Exam: Yes: Deferred Genitourinary: No: CVA Tenderness - Left, CVA Tenderness - Right Musculoskeletal: Yes: Joint Stiffness Edema: Yes Edema: RUE: 1+ (operated fingers) Wound/Incision: Yes: Clean/Dry, Well Approximated, Sutures Intact, Draining, Unapproximated (3rd MCP joing). No: Reddened Neurological: Yes: Alert, Oriented Psychiatric: Yes: Alert, Oriented Labs: CBC, BMP 11/05/17 06:15 11/05/17 06:15 INR, PTT INR 2.10 (0.82-1.09) H 11/09/17 05:10 Problem List - Problems (1) Gangrene of hand Assessment/Plan: 72 yo female MMP including Afib on coumadin, DM type 2 and ESRD, Wet gangrene and flexor tenosynovitis left middle finger, dry gangrene of index and ring fingers, poor distal circulation on duplex with PVR left arm. POD#9 s/p Left middle finger irrigation and debridement of flexor tenosynovitis and revision amputation of index middle and ring fingers. on daptomycin and tygacil per ID the wound is very clean. continue IV antibiotics - agree with plan for PICC adequate analgesia Will need discharge with VNS for daily dressing Wound measurement: left middle open MCP 1.2x1.2x0.2cm, clean no purulent drainage Dressing instructions: open MCP, Xeroform, loose rolled gauze PT evaluation appreciated Can be discharged to appropriate SNF Follow-up plan in discharge plan Code(s): I96 - GANGRENE, NOT ELSEWHERE CLASSIFIED (2) Flexor tenosynovitis of finger Code(s): M65.9 - SYNOVITIS AND TENOSYNOVITIS, UNSPECIFIED (3) Cellulitis and abscess of hand Code(s): L03.119 - CELLULITIS OF UNSPECIFIED PART OF LIMB; L02.519 - CUTANEOUS ABSCESS OF UNSPECIFIED HAND (4) Anemia in ESRD (end-stage renal disease) Code(s): N18.6 - END STAGE RENAL DISEASE; D63.1 - ANEMIA IN CHRONIC KIDNEY DISEASE (5) CAD (coronary artery disease) Code(s): I25.10 - ATHSCL HEART DISEASE OF [place] CORONARY ARTERY W/O ANG PCTRS Qualifiers: Coronary Disease-Associated Artery/Lesion type: [place] artery [place] vs. transplanted heart: [place] heart Associated angina: without angina Qualified Code(s): I25.10 - Atherosclerotic heart disease of [place] coronary artery without angina pectoris (6) DM type 2 causing complication Code(s): E11.8 - TYPE 2 DIABETES MELLITUS WITH UNSPECIFIED COMPLICATIONS (7) ESRD on hemodialysis Code(s): N18.6 - END STAGE RENAL DISEASE; Z99.2 - DEPENDENCE ON RENAL DIALYSIS (8) HTN (hypertension) Code(s): I10 - ESSENTIAL (PRIMARY) HYPERTENSION Qualifiers: Hypertension type: essential hypertension Qualified Code(s): I10 - Essential (primary) hypertension (9) Hypercholesterolemia Code(s): E78.00 - PURE HYPERCHOLESTEROLEMIA, UNSPECIFIED
[2017-11-09] MEDS: DOCUSATE SODIUM 100 MG CAPSULE (FP) PO SCH (09:54)
[2017-11-09] MEDS: CALCIUM ACETATE 667 MG CAPSULE (FP) PO SCH (09:54)
[2017-11-09] MEDS: METOPROLOL TARTRATE 25 MG TABLET (FP) PO SCH ×2 (09:54→10:09)
[2017-11-09] MEDS: CYANOCOBALAMIN (VITAMIN B-12) 100 MCG TABLET PO SCH (09:54)
[2017-11-09] MEDS: ASPIRIN 81 MG CHEWABLE TABLETS PO SCH (09:56)
[2017-11-09] MEDS: LACTOBACILLUS ACIDOPHILUS 1 EACH TAB (FP) PO SCH (09:56)
[2017-11-09] MEDS: TIGECYCLINE 50 MG in DEXTROSE 5%-WATER - 100 ML IVPB SCH ×2 (09:57→21:34)
[2017-11-09] MEDS: oxyCODONE HCL 5 MG TABLET PO PRN ×3 (10:01→19:11)
[2017-11-09] MEDS: PANTOPRAZOLE 40 MG TABLET (FP) PO SCH (10:04)
--- NOTE | 2017-11-09 10:21 | PN ---
Progress Note, Physician Chief Complaint: pt examined feels tired decreased appetite No distress - Current Medication List Current Medications: Active Medications Acetaminophen (Tylenol -) 650 mg PO Q4H PRN PRN Reason: BACK PAIN Last Admin: 11/08/17 21:43 Dose: 650 mg Aspirin (Asa -) 81 mg PO DAILY [facility] Last Admin: 11/09/17 09:56 Dose: 81 mg Calcium Acetate (Phoslo -) 667 mg PO DAILY [facility] Last Admin: 11/09/17 09:54 Dose: 667 mg Cyanocobalamin (Vitamin B12 -) 100 mcg PO DAILY [facility] Last Admin: 11/09/17 09:54 Dose: 100 mcg Diphenhydramine HCl (Benadryl -) 50 mg PO HS PRN PRN Reason: INSOMNIA Last Admin: 11/09/17 00:14 Dose: 50 mg Docusate Sodium (Colace -) 100 mg PO DAILY [facility] Last Admin: 11/09/17 09:54 Dose: 100 mg IV Flush (Kate-Cath Flush) 10 ml IVPUSH PRN PRN PRN Reason: Protocol Tigecycline 50 mg/ Dextrose 100 mls @ 100 mls/hr IVPB BID YOAN PRN Reason: Protocol Last Admin: 11/09/17 09:57 Dose: 100 mls/hr Daptomycin 500 mg/ Sodium (Chloride) 100 mls @ 200 mls/hr IVPB Q48H YOAN PRN Reason: Protocol Last Admin: 11/08/17 15:10 Dose: 200 mls/hr Insulin Aspart (Novolog Vial Sliding Scale -) 1 vial SQ TIDAC [facility] PRN Reason: Protocol Last Admin: 11/09/17 06:10 Dose: Not Given Insulin Detemir (Levemir Vial) 16 units SQ BID@0700,2200 [facility] Last Admin: 11/09/17 06:21 Dose: 16 units Lactobacillus Acidophilus (Bacid -) 1 tab PO DAILY [facility] Last Admin: 11/09/17 09:56 Dose: 1 tab Levothyroxine Sodium (Synthroid -) 125 mcg PO DAILY@0700 [facility] Last Admin: 11/09/17 06:17 Dose: 125 mcg Metoprolol Tartrate (Lopressor -) 12.5 mg PO DAILY [facility] Last Admin: 11/09/17 10:09 Dose: Not Given Nitroglycerin (Nitrostat -) 0.4 mg SL DAILY PRN PRN Reason: FOR CHEST PAIN Ondansetron HCl (Zofran Injection) 4 mg IVPB Q6H PRN PRN Reason: NAUSEA Oxycodone HCl (Roxicodone -) 5 mg PO Q6H PRN PRN Reason: PAIN LEVEL 4 - 6 Last Admin: 11/09/17 10:01 Dose: 5 mg Pantoprazole Sodium (Protonix -) 40 mg PO DAILY [facility] Last Admin: 11/09/17 10:04 Dose: 40 mg Polyethylene Glycol (Miralax (For Daily Use) -) 17 gm PO DAILY [facility] Last Admin: 11/08/17 09:31 Dose: Not Given Senna (Senna -) 1 tab PO HS [facility] Last Admin: 11/08/17 21:34 Dose: 1 tab - Objective Vital Signs: Vital Signs Temperature 98.5 F 11/09/17 02:00 Pulse Rate 68 11/09/17 07:48 Respiratory Rate 18 11/09/17 07:48 Blood Pressure 96/48 11/09/17 07:48 O2 Sat by Pulse Oximetry (%) 99 11/08/17 21:00 Constitutional: Yes: No Distress Cardiovascular: Yes: Pulse Irregular Respiratory: Yes: CTA Bilaterally Gastrointestinal: Yes: Normal Bowel Sounds, Soft, Abdomen, Obese. No: Tenderness, Rebound Extremities: Yes: Amputation Edema: No Labs: CBC, BMP 11/05/17 06:15 11/05/17 06:15 INR, PTT INR 2.10 (0.82-1.09) H 11/09/17 05:10 Problem List - Problems (1) Cellulitis and abscess of hand Code(s): L03.119 - CELLULITIS OF UNSPECIFIED PART OF LIMB; L02.519 - CUTANEOUS ABSCESS OF UNSPECIFIED HAND (2) Anemia Code(s): D64.9 - ANEMIA, UNSPECIFIED Qualifiers: Anemia type: other cause Other causes of anemia: chronic disease, kidney (3) Atrial fibrillation Code(s): I48.91 - UNSPECIFIED ATRIAL FIBRILLATION Qualifiers: Atrial fibrillation type: unspecified Qualified Code(s): I48.91 - Unspecified atrial fibrillation (4) DM type 2 causing complication Code(s): E11.8 - TYPE 2 DIABETES MELLITUS WITH UNSPECIFIED COMPLICATIONS (5) ESRD (end stage renal disease) on dialysis Code(s): N18.6 - END STAGE RENAL DISEASE; Z99.2 - DEPENDENCE ON RENAL DIALYSIS Assessment/Plan Abx per ID-- needs total 6 weeks-- Dapto +Tigecil-- spoke with nurse-- needs picc line for antibiotics will hold coumadin in anticipation for procedure continue other meds monitor bgm-- on Levemir dc planning-- housing case manager to contact facility where pt may receive both Dapto + Tigecil , dialysis pain control dialysis per renal will follow BP low-- on Lopressor-- cardiology follow up Pt will be having HD today Prostat BID Appetite decreased probably due to antibiotics, illness, infection
--- NOTE | 2017-11-09 10:50 | PN ---
Progress Note (short form) - Note Progress Note: CCU. 72 year old white female known case of CAD, s/p multivessel PCI/stenting, severe LV systolic dysfunction, s/p ICD, permanent atrial fib, h/o hypotension. DM with multi system involvement, ESRD-HD, hypertension admitted with gangrenous changes involving the fingers of the left hand requiring amputations and found to have bone infection in the amputated finger. Patient denies having chest pain or discomfort, no SOB reported, periodic drop in blood pressure without any clinical symptoms and is partly related to difficulty in recording blood pressure. Active Medications Generic Name Dose Route Start Last Admin Trade Name Freq PRN Reason Stop Dose Admin Acetaminophen 650 mg 10/31/17 16:05 11/08/17 21:43 Tylenol - PO 650 mg Q4H PRN Administration BACK PAIN Amino Acids 30 ml 11/09/17 17:30 Prosource No Carb Liquid Pkt PO BID@0800,1730 YOAN Aspirin 81 mg 11/01/17 10:00 11/09/17 09:56 Asa - PO 81 mg DAILY YOAN Administration Calcium Acetate 667 mg 11/01/17 10:00 11/09/17 09:54 Phoslo - PO 667 mg DAILY YOAN Administration Cyanocobalamin 100 mcg 11/01/17 10:00 11/09/17 09:54 Vitamin B12 - PO 100 mcg DAILY YOAN Administration Diphenhydramine HCl 25 mg 11/09/17 11:07 Benadryl - PO HS PRN INSOMNIA Docusate Sodium 100 mg 11/01/17 10:00 11/09/17 09:54 Colace - PO 100 mg DAILY YOAN Administration IV Flush 10 ml 11/08/17 11:34 Kate-Cath Flush IVPUSH PRN PRN Protocol Tigecycline 50 mg/ Dextrose 100 mls @ 100 mls/hr 11/04/17 22:00 11/09/17 09: 57 IVPB 100 mls/hr BID YOAN Administration Protocol Daptomycin 500 mg/ Sodium 100 mls @ 200 mls/hr 11/04/17 16:00 11/08/17 15:10 Chloride IVPB 200 mls/hr Q48H YOAN Administration Protocol Insulin Aspart 1 vial 11/03/17 16:30 11/09/17 06:10 Novolog Vial Sliding Scale - SQ Not Given TIDAC [facility] Protocol Insulin Detemir 16 units 11/02/17 12:17 11/09/17 06:21 Levemir Vial SQ 16 units BID@0700,2200 YOAN Administration Lactobacillus Acidophilus 1 tab 11/01/17 10:00 11/09/17 09:56 Bacid - PO 1 tab DAILY YOAN Administration Levothyroxine Sodium 125 mcg 11/01/17 07:00 11/09/17 06:17 Synthroid - PO 125 mcg DAILY@0700 YOAN Administration Metoprolol Tartrate 12.5 mg 11/01/17 10:00 11/09/17 10:09 Lopressor - PO Not Given DAILY [facility] Nitroglycerin 0.4 mg 10/31/17 16:05 Nitrostat - SL DAILY PRN FOR CHEST PAIN Ondansetron HCl 4 mg 11/04/17 09:31 Zofran Injection IVPB Q6H PRN NAUSEA Oxycodone HCl 5 mg 11/05/17 15:30 11/09/17 10:01 Roxicodone - PO 5 mg Q6H PRN Administration PAIN LEVEL 4 - 6 Pantoprazole Sodium 40 mg 11/01/17 10:00 11/09/17 10:04 Protonix - PO 40 mg DAILY YOAN Administration Polyethylene Glycol 17 gm 11/01/17 10:00 11/09/17 11:50 Miralax (For Daily Use) - PO 17 grams DAILY YOAN Administration Senna 1 tab 10/31/17 22:00 11/08/17 21:34 Senna - PO 1 tab HS YOAN Administration 72 year old female in no acute distress, no pallor or cyanosis. Patient is warm and dry. Last Vital Signs Temp Pulse Resp BP Pulse Ox 98.5 F 68 18 96/48 99 11/09/17 02:00 11/09/17 07:48 11/09/17 07:48 11/09/17 07:48 11/08/17 21:00 NECK: Supple, no JVD, carotids 1-2+, no bruits heards. anterior surgical scar. HEART: PMI in the 5th ICS, LINDA II/ 2nd right ICS. no gallops heard. LUNGS; Clear on auscultation. ABDOMEN: Soft, nontender, no organomegalty or masses felt. EXTREMITIES: Rt. AKA, left partial amputation of the foot. Left hand is bandaged. CBC, BMP 11/05/17 06:15 11/05/17 06:15 IMPRESSION: 1. CAD, s/p CO, s/p PCI/stenting. 2. Elevated Troponins secondary to ESRD, cannot exclude myocardial ischemia. 3. ESRD-HD. 4. Diabetes mellitus wth multisystem involement 5. Permanent atrial fib. with controlled ventricular response. 6. Hypertension. 7. Severe LV systolic dysfunction. 8. ICD. Recommendations: 1. Continue therapy. 2. F/u CBC and BMP.
[2017-11-09] MEDS: POLYETHYLENE GLYCOL 3350 119 GM BTL PO SCH (11:50)
[2017-11-09] MEDS ORDERED: MIDODRINE HCL 5 MG TABLET PO ONE (12:00)
[2017-11-09 15:09] LABS: ALBUMIN 1.9 g/dl (3.4-5.0); ALK PHOS 193 U/L (45-117); ANION GAP 10 (8-16); BILIRUBIN,TOTAL 0.3 mg/dL (0.2-1.0); BLOOD UREA NITROGEN 56 mg/dL (7-18); CALCIUM 7.2 mg/dL (8.5-10.1); CHLORIDE 99 mmol/L (98-107); CO2 28 mmol/L (21-32); CREATININE 5.5 mg/dL (0.55-1.02); GLUCOSE,RANDOM 109 mg/dL (74-106); PHOSPHOROUS 5.1 mg/dL (2.5-4.9); SGOT/AST 15 U/L (15-37); SGPT/ALT 24 U/L (12-78); SODIUM 137 mmol/L (136-145); TOT PROT 5.3 g/dl (6.4-8.2)
[2017-11-09] MEDS: AMINO ACIDS/PROTEIN HYDROLYS 30 ML LIQUID.PKT PO SCH (18:26)
[2017-11-09 18:51] LABS: HEMATOCRIT 36.3 % (32.4-45.2); HEMOGLOBIN 11.1 GM/dL (10.7-15.3); MCH 30.4 pg (25.7-33.7); MCHC 30.6 g/dl (32.0-36.0); MEAN CELL VOLUME 99.3 fl (80-96); MEAN PLT VOLUME 8.4 fl (7.5-11.1); PLATELET COUNT 314 K/MM3 (134-434); RBC 3.65 M/mm3 (3.60-5.2); RDW 18.5 % (11.6-15.6); WHITE BLOOD COUNT 7.9 K/mm3 (4.0-10.0)
--- NOTE | 2017-11-09 20:38 | PN ---
Progress Note (short form) - Note Progress Note: CCU. 72 year old white female known case of CAD, s/p multivessel PCI/stenting, severe LV systolic dysfunction, s/p ICD, permanent atrial fib, h/o hypotension. DM with multi system involvement, ESRD-HD, hypertension admitted with gangrenous changes involving the fingers of the left hand requiring amputations and found to have bone infection in the amputated finger. Patient denies having chest pain or discomfort, no SOB reported, periodic drop in blood pressure without any clinical symptoms and is partly related to difficulty in recording blood pressure. Active Medications Generic Name Dose Route Start Last Admin Trade Name Freq PRN Reason Stop Dose Admin Acetaminophen 650 mg 10/31/17 16:05 11/08/17 21:43 Tylenol - PO 650 mg Q4H PRN Administration BACK PAIN Amino Acids 30 ml 11/09/17 17:30 Prosource No Carb Liquid Pkt PO BID@0800,1730 YOAN Aspirin 81 mg 11/01/17 10:00 11/09/17 09:56 Asa - PO 81 mg DAILY YOAN Administration Calcium Acetate 667 mg 11/01/17 10:00 11/09/17 09:54 Phoslo - PO 667 mg DAILY [facility]OAN Administration Cyanocobalamin 100 mcg 11/01/17 10:00 11/09/17 09:54 Vitamin B12 - PO 100 mcg DAILY YOAN Administration Diphenhydramine HCl 25 mg 11/09/17 11:07 Benadryl - PO HS PRN INSOMNIA Docusate Sodium 100 mg 11/01/17 10:00 11/09/17 09:54 Colace - PO 100 mg DAILY YOAN Administration IV Flush 10 ml 11/08/17 11:34 Kate-Cath Flush IVPUSH PRN PRN Protocol Tigecycline 50 mg/ Dextrose 100 mls @ 100 mls/hr 11/04/17 22:00 11/09/17 09: 57 IVPB 100 mls/hr BID YOAN Administration Protocol Daptomycin 500 mg/ Sodium 100 mls @ 200 mls/hr 11/04/17 16:00 11/08/17 15:10 Chloride IVPB 200 mls/hr Q48H YOAN Administration Protocol Insulin Aspart 1 vial 11/03/17 16:30 11/09/17 06:10 Novolog Vial Sliding Scale - SQ Not Given TIDAC [facility] Protocol Insulin Detemir 16 units 11/02/17 12:17 11/09/17 06:21 Levemir Vial SQ 16 units BID@0700,2200 YOAN Administration Lactobacillus Acidophilus 1 tab 11/01/17 10:00 11/09/17 09:56 Bacid - PO 1 tab DAILY [facility]AN Administration Levothyroxine Sodium 125 mcg 11/01/17 07:00 11/09/17 06:17 Synthroid - PO 125 mcg DAILY@0700 YOAN Administration Metoprolol Tartrate 12.5 mg 11/01/17 10:00 11/09/17 10:09 Lopressor - PO Not Given DAILY YOAN Nitroglycerin 0.4 mg 10/31/17 16:05 Nitrostat - SL DAILY PRN FOR CHEST PAIN Ondansetron HCl 4 mg 11/04/17 09:31 Zofran Injection IVPB Q6H PRN NAUSEA Oxycodone HCl 5 mg 11/05/17 15:30 11/09/17 10:01 Roxicodone - PO 5 mg Q6H PRN Administration PAIN LEVEL 4 - 6 Pantoprazole Sodium 40 mg 11/01/17 10:00 11/09/17 10:04 Protonix - PO 40 mg DAILY YOAN Administration Polyethylene Glycol 17 gm 11/01/17 10:00 11/09/17 11:50 Miralax (For Daily Use) - PO 17 grams DAILY [facility]AN Administration Senna 1 tab 10/31/17 22:00 11/08/17 21:34 Senna - PO 1 tab HS YOAN Administration Called this afternoon that patient was diaphoretic and tachycardiac, appeared to be hypoglycemic and gave her juice and crackers and slowly recovered sweating abated and heart rate came down to 100 from 146 BPM.and she fully recovered from the episode. Last Vital Signs Temp Pulse Resp BP Pulse Ox 98 F 96 H 16 106/45 99 11/09/17 16:00 11/09/17 18:30 11/09/17 18:30 11/09/17 18:30 11/09/17 09:00 NECK: Supple, no JVD, carotids 1-2+, no bruits heards. anterior surgical scar. HEART: PMI in the 5th ICS, LINDA II/ 2nd right ICS. no gallops heard. LUNGS; Clear on auscultation. ABDOMEN: Soft, nontender, no organomegalty or masses felt. EXTREMITIES: Rt. AKA, left partial amputation of the foot. Left hand is bandaged. CBC, BMP 11/09/17 13:45 11/09/17 13:45 EKG: Atrial fib. with rapid ventricular response, poor r wave progression V1 to V3, ST-T abnormalities. IMPRESSION: 1. Hypoglycemic episode, corrected. 2. CAD, s/p VT. s/p PCI/stenting. 4. Diabetes mellitus wth multisystem involement 5. Permanent atrial fib. with controlled ventricular response. 6. Hypertension. 7. Severe LV systolic dysfunction. 8. ICD. Recommendations: 1. Close f/iu of blood sugar. 2. May need to adjust insulin dose. 3. F/u CBC and BMP. Time spent: 35mins.
[2017-11-09] MEDS: SENNOSIDES 8.6MG TABLET (FP) PO SCH (21:34)
[2017-11-09] MEDS: ACETAMINOPHEN 325 MG TABLET (FP) PO PRN (21:36)
[2017-11-10] MEDS: LEVOTHYROXINE NA 125 MCG TABLET (FP) PO SCH (06:18)
[2017-11-10] MEDS: INSULIN DETEMIR 100 UNITS/ML MDV SQ SCH ×2 (06:19→22:23)
[2017-11-10] MEDS: INSULIN SLIDING SCALE (NOVOLOG) 1 VIAL SQ SCH ×3 (06:24→17:24)
[2017-11-10 07:18] LABS: INR 1.12 (0.82-1.09); PROTHROMBIN TIME (PATIENT) 12.7 SEC (9.98-11.88)
--- NOTE | 2017-11-10 07:47 | PN ---
Progress Note, Physician Chief Complaint: left hand wet and dry gangrene History of Present Illness: 72 yo female PMH HTN, DM, HLD, PAD, CHF, A-fib, defibrillator placement,pvd, ESRD (Dialysis on M,W,F- left chest tunnel catheter ), Right AKA amputation, Left foot amputation, and Left hand 2nd-4th digit partial amputation (02/2017) who presents with left hand pain. found to have flexor tenosynovitis and a combination of wet and dry gangrene. Report pain was adequately controlled overnight. - Current Medication List Current Medications: Active Medications Acetaminophen (Tylenol -) 650 mg PO Q4H PRN PRN Reason: BACK PAIN Last Admin: 11/09/17 21:36 Dose: 650 mg Amino Acids (Prosource No Carb Liquid Pkt) 30 ml PO BID@0800,1730 [facility] Last Admin: 11/09/17 18:26 Dose: 30 ml Aspirin (Asa -) 81 mg PO DAILY [facility] Last Admin: 11/09/17 09:56 Dose: 81 mg Calcium Acetate (Phoslo -) 667 mg PO DAILY [facility] Last Admin: 11/09/17 09:54 Dose: 667 mg Cyanocobalamin (Vitamin B12 -) 100 mcg PO DAILY [facility] Last Admin: 11/09/17 09:54 Dose: 100 mcg Diphenhydramine HCl (Benadryl -) 25 mg PO HS PRN PRN Reason: INSOMNIA Last Admin: 11/09/17 23:51 Dose: 25 mg Docusate Sodium (Colace -) 100 mg PO DAILY [facility] Last Admin: 11/09/17 09:54 Dose: 100 mg IV Flush (Kate-Cath Flush) 10 ml IVPUSH PRN PRN PRN Reason: Protocol Tigecycline 50 mg/ Dextrose 100 mls @ 100 mls/hr IVPB BID YOAN PRN Reason: Protocol Last Admin: 11/09/17 21:34 Dose: 100 mls/hr Daptomycin 500 mg/ Sodium (Chloride) 100 mls @ 200 mls/hr IVPB Q48H YOAN PRN Reason: Protocol Last Admin: 11/08/17 15:10 Dose: 200 mls/hr Insulin Aspart (Novolog Vial Sliding Scale -) 1 vial SQ TIDAC [facility] PRN Reason: Protocol Last Admin: 11/10/17 06:24 Dose: 3 units Insulin Detemir (Levemir Vial) 16 units SQ BID@0700,2200 [facility] Last Admin: 11/10/17 06:19 Dose: 16 units Lactobacillus Acidophilus (Bacid -) 1 tab PO DAILY [facility] Last Admin: 11/09/17 09:56 Dose: 1 tab Levothyroxine Sodium (Synthroid -) 125 mcg PO DAILY@0700 [facility] Last Admin: 11/10/17 06:18 Dose: 125 mcg Metoprolol Tartrate (Lopressor -) 12.5 mg PO DAILY [facility] Last Admin: 11/09/17 10:09 Dose: Not Given Nitroglycerin (Nitrostat -) 0.4 mg SL DAILY PRN PRN Reason: FOR CHEST PAIN Ondansetron HCl (Zofran Injection) 4 mg IVPB Q6H PRN PRN Reason: NAUSEA Oxycodone HCl (Roxicodone -) 5 mg PO Q6H PRN PRN Reason: PAIN LEVEL 4 - 6 Last Admin: 11/09/17 19:11 Dose: 5 mg Pantoprazole Sodium (Protonix -) 40 mg PO DAILY [facility] Last Admin: 11/09/17 10:04 Dose: 40 mg Polyethylene Glycol (Miralax (For Daily Use) -) 17 gm PO DAILY [facility] Last Admin: 11/09/17 11:50 Dose: 17 grams Senna (Senna -) 1 tab PO HS [facility] Last Admin: 11/09/17 21:34 Dose: 1 tab - Objective Vital Signs: Vital Signs Temperature 98.5 F 11/10/17 02:15 Pulse Rate 79 11/10/17 02:15 Respiratory Rate 17 11/10/17 02:15 Blood Pressure 114/44 11/10/17 02:15 O2 Sat by Pulse Oximetry (%) 100 11/09/17 21:00 Vital Signs Period Temp Pulse Resp BP Sys/Cordero Pulse Ox Last 24 Hr 98 F-98.8 F 68-142 -18 86-147/40-100 99-100 Intake & Output 11/09/17 11/09/17 11/10/17 15:59 23:59 07:59 Intake Total 290 240 100 Balance 290 240 100 Intake: IVPB 50 100 Oral 240 240 Other: Voiding Method Diaper Bowel Movement Yes No Constitutional: Yes: No Distress, Calm. No: Obese Eyes: Yes: Conjunctiva Clear, EOM Intact HENT: Yes: Atraumatic, Normocephalic Neck: Yes: Supple, Trachea Midline Cardiovascular: Yes: S1, S2 Respiratory: Yes: Regular, CTA Bilaterally Gastrointestinal: Yes: Normal Bowel Sounds, Soft ...Rectal Exam: Yes: Deferred Genitourinary: No: CVA Tenderness - Left, CVA Tenderness - Right Extremities: No: Cool, Cyanosis Edema: Yes Wound/Incision: Yes: Clean/Dry, Well Approximated, Sutures Intact, Draining ( fibrionous exudate), Unapproximated (3rd MCP). No: Reddened Neurological: Yes: Alert, Oriented Psychiatric: Yes: Alert, Oriented Labs: CBC, BMP 11/09/17 13:45 11/09/17 13:45 Microbiology 10/31/17 16:30 Hand - Left Gram Stain - Final 10/31/17 16:30 Hand - Left Wound Culture - Preliminary Klebsiella Pneumoniae - Esbl Vr Ec Faecalis 10/30/17 16:28 Blood - Peripheral Venous Blood Culture - Final NO GROWTH AFTER 5 DAYS INCUBATION 10/30/17 15:43 Blood - Peripheral Venous Blood Culture - Final NO GROWTH AFTER 5 DAYS INCUBATION Problem List - Problems (1) Gangrene of hand Assessment/Plan: 72 yo female MMP including Afib on coumadin, DM type 2 and ESRD, Wet gangrene and flexor tenosynovitis left middle finger, dry gangrene of index and ring fingers, poor distal circulation on duplex with PVR left arm. POD#10 s/p Left middle finger irrigation and debridement of flexor tenosynovitis and revision amputation of index middle and ring fingers. on daptomycin and tygacil per ID the wound is very clean. continue IV antibiotics per ID adequate analgesia Will need discharge with VNS for daily dressing Wound measurement: left middle open MCP 1.2x1.2x0.2cm, clean no purulent drainage Dressing instructions: open MCP, Xeroform, loose rolled gauze PT evaluation appreciated Can be discharged to appropriate SNF Follow-up plan in discharge plan Code(s): I96 - GANGRENE, NOT ELSEWHERE CLASSIFIED (2) Flexor tenosynovitis of finger Code(s): M65.9 - SYNOVITIS AND TENOSYNOVITIS, UNSPECIFIED (3) Cellulitis and abscess of hand Code(s): L03.119 - CELLULITIS OF UNSPECIFIED PART OF LIMB; L02.519 - CUTANEOUS ABSCESS OF UNSPECIFIED HAND (4) Anemia in ESRD (end-stage renal disease) Code(s): N18.6 - END STAGE RENAL DISEASE; D63.1 - ANEMIA IN CHRONIC KIDNEY DISEASE (5) CAD (coronary artery disease) Code(s): I25.10 - ATHSCL HEART DISEASE OF [place] CORONARY ARTERY W/O ANG PCTRS Qualifiers: Coronary Disease-Associated Artery/Lesion type: [place] artery [place] vs. transplanted heart: [place] heart Associated angina: without angina Qualified Code(s): I25.10 - Atherosclerotic heart disease of [place] coronary artery without angina pectoris (6) DM type 2 causing complication Code(s): E11.8 - TYPE 2 DIABETES MELLITUS WITH UNSPECIFIED COMPLICATIONS (7) ESRD on hemodialysis Code(s): N18.6 - END STAGE RENAL DISEASE; Z99.2 - DEPENDENCE ON RENAL DIALYSIS (8) HTN (hypertension) Code(s): I10 - ESSENTIAL (PRIMARY) HYPERTENSION Qualifiers: Hypertension type: essential hypertension Qualified Code(s): I10 - Essential (primary) hypertension (9) Hypercholesterolemia Code(s): E78.00 - PURE HYPERCHOLESTEROLEMIA, UNSPECIFIED
[2017-11-10] MEDS ORDERED: PT OWN MED DRAWER 7, Y5N ONE ×6 (09:50→22:20)
[2017-11-10] MEDS: AMINO ACIDS/PROTEIN HYDROLYS 30 ML LIQUID.PKT PO SCH ×2 (09:55→17:26)
[2017-11-10] MEDS: METOPROLOL TARTRATE 25 MG TABLET (FP) PO SCH (09:56)
[2017-11-10] MEDS: DOCUSATE SODIUM 100 MG CAPSULE (FP) PO SCH (09:57)
[2017-11-10] MEDS: PANTOPRAZOLE 40 MG TABLET (FP) PO SCH (09:57)
[2017-11-10] MEDS: ASPIRIN 81 MG CHEWABLE TABLETS PO SCH (09:57)
[2017-11-10] MEDS: CYANOCOBALAMIN (VITAMIN B-12) 100 MCG TABLET PO SCH (09:57)
[2017-11-10] MEDS: CALCIUM ACETATE 667 MG CAPSULE (FP) PO SCH (09:57)
[2017-11-10] MEDS: LACTOBACILLUS ACIDOPHILUS 1 EACH TAB (FP) PO SCH (09:57)
[2017-11-10] MEDS: POLYETHYLENE GLYCOL 3350 119 GM BTL PO SCH (09:58)
[2017-11-10] MEDS: TIGECYCLINE 50 MG in DEXTROSE 5%-WATER - 100 ML IVPB SCH ×2 (12:21→22:25)
[2017-11-10] MEDS: ACETAMINOPHEN 325 MG TABLET (FP) PO PRN ×2 (12:33→22:24)
--- NOTE | 2017-11-10 14:49 | PN ---
Progress Note, Physician Chief Complaint: 72 The patient seen in the ICU. Feeling better. Getting in-bed PT in her room. IV antibiotics infusing. No specific complaints. History of Present Illness: 72 year old woman with PMhx of ESRD on HD, Hypertension, CAD, DM on Insulin, PVD who presented with worsening hand pain. The patient had I and D of hand abscess. The patient is feeling better. - Current Medication List Current Medications: Active Medications Acetaminophen (Tylenol -) 650 mg PO Q4H PRN PRN Reason: BACK PAIN Last Admin: 11/10/17 12:33 Dose: 650 mg Amino Acids (Prosource No Carb Liquid Pkt) 30 ml PO BID@0800,1730 [facility] Last Admin: 11/10/17 09:55 Dose: 30 ml Aspirin (Asa -) 81 mg PO DAILY [facility] Last Admin: 11/10/17 09:57 Dose: 81 mg Calcium Acetate (Phoslo -) 667 mg PO DAILY [facility] Last Admin: 11/10/17 09:57 Dose: 667 mg Cyanocobalamin (Vitamin B12 -) 100 mcg PO DAILY [facility] Last Admin: 11/10/17 09:57 Dose: 100 mcg Diphenhydramine HCl (Benadryl -) 25 mg PO HS PRN PRN Reason: INSOMNIA Last Admin: 11/09/17 23:51 Dose: 25 mg Docusate Sodium (Colace -) 100 mg PO DAILY [facility] Last Admin: 11/10/17 09:57 Dose: 100 mg IV Flush (Kate-Cath Flush) 10 ml IVPUSH PRN PRN PRN Reason: Protocol Tigecycline 50 mg/ Dextrose 100 mls @ 100 mls/hr IVPB BID YOAN PRN Reason: Protocol Last Admin: 11/10/17 12:21 Dose: 100 mls/hr Daptomycin 500 mg/ Sodium (Chloride) 100 mls @ 200 mls/hr IVPB Q48H YOAN PRN Reason: Protocol Last Admin: 11/08/17 15:10 Dose: 200 mls/hr Insulin Aspart (Novolog Vial Sliding Scale -) 1 vial SQ TIDAC [facility] PRN Reason: Protocol Last Admin: 11/10/17 06:24 Dose: 3 units Insulin Detemir (Levemir Vial) 16 units SQ BID@0700,2200 [facility] Last Admin: 11/10/17 06:19 Dose: 16 units Lactobacillus Acidophilus (Bacid -) 1 tab PO DAILY [facility] Last Admin: 11/10/17 09:57 Dose: 1 tab Levothyroxine Sodium (Synthroid -) 125 mcg PO DAILY@0700 [facility] Last Admin: 11/10/17 06:18 Dose: 125 mcg Metoprolol Tartrate (Lopressor -) 12.5 mg PO DAILY [facility] Last Admin: 11/10/17 09:56 Dose: 12.5 mg Nitroglycerin (Nitrostat -) 0.4 mg SL DAILY PRN PRN Reason: FOR CHEST PAIN Ondansetron HCl (Zofran Injection) 4 mg IVPB Q6H PRN PRN Reason: NAUSEA Pantoprazole Sodium (Protonix -) 40 mg PO DAILY [facility] Last Admin: 11/10/17 09:57 Dose: 40 mg Polyethylene Glycol (Miralax (For Daily Use) -) 17 gm PO DAILY [facility] Last Admin: 11/10/17 09:58 Dose: 17 grams Senna (Senna -) 1 tab PO HS [facility] Last Admin: 11/09/17 21:34 Dose: 1 tab - Objective Vital Signs: Vital Signs Temperature 98.5 F 11/10/17 02:15 Pulse Rate 79 11/10/17 02:15 Respiratory Rate 17 11/10/17 02:15 Blood Pressure 114/44 11/10/17 02:15 O2 Sat by Pulse Oximetry (%) 100 11/09/17 21:00 Constitutional: Yes: No Distress Eyes: Yes: Conjunctiva Clear HENT: Yes: Normocephalic Neck: Yes: Trachea Midline Cardiovascular: Yes: S1, S2 Respiratory: Yes: CTA Bilaterally, Diminished Gastrointestinal: Yes: Normal Bowel Sounds Genitourinary: No: CVA Tenderness - Left, CVA Tenderness - Right Labs: CBC, BMP 11/09/17 13:45 11/09/17 13:45 INR, PTT INR 1.12 (0.82-1.09) D 11/10/17 06:00 Problem List - Problems (1) Cellulitis and abscess of hand Code(s): L03.119 - CELLULITIS OF UNSPECIFIED PART OF LIMB; L02.519 - CUTANEOUS ABSCESS OF UNSPECIFIED HAND (2) Flexor tenosynovitis of finger Code(s): M65.9 - SYNOVITIS AND TENOSYNOVITIS, UNSPECIFIED (3) Anemia Code(s): D64.9 - ANEMIA, UNSPECIFIED Qualifiers: Anemia type: other cause Other causes of anemia: chronic disease, kidney (4) Atrial fibrillation Code(s): I48.91 - UNSPECIFIED ATRIAL FIBRILLATION Qualifiers: Atrial fibrillation type: unspecified Qualified Code(s): I48.91 - Unspecified atrial fibrillation (5) CAD (coronary artery disease) Code(s): I25.10 - ATHSCL HEART DISEASE OF [place] CORONARY ARTERY W/O ANG PCTRS Qualifiers: Coronary Disease-Associated Artery/Lesion type: [place] artery [place] vs. transplanted heart: [place] heart Associated angina: without angina Qualified Code(s): I25.10 - Atherosclerotic heart disease of [place] coronary artery without angina pectoris (6) DM type 2 causing complication Code(s): E11.8 - TYPE 2 DIABETES MELLITUS WITH UNSPECIFIED COMPLICATIONS (7) ESRD on hemodialysis Code(s): N18.6 - END STAGE RENAL DISEASE; Z99.2 - DEPENDENCE ON RENAL DIALYSIS Assessment/Plan 72 year old woman with PMhx of ESRD on HD, Hypertension, CAD, DM on Insulin, PVD who presented with worsening hand pain. The patient is hemodynamically lizbeth. IV antibiotics infusing. Abx well tolerated. Started on PT for the hand. Reviewed clinical status with the family. Next HD in AM. Will need to continue antibiotics as out patient. Thank you. Rafat garay with you. Layla Evans MD
--- NOTE | 2017-11-10 17:07 | PN ---
Progress Note, Physician Chief Complaint: pt tearful about current situation - Current Medication List Current Medications: Active Medications Acetaminophen (Tylenol -) 650 mg PO Q4H PRN PRN Reason: BACK PAIN Last Admin: 11/10/17 12:33 Dose: 650 mg Amino Acids (Prosource No Carb Liquid Pkt) 30 ml PO BID@0800,1730 [facility] Last Admin: 11/10/17 09:55 Dose: 30 ml Aspirin (Asa -) 81 mg PO DAILY [facility] Last Admin: 11/10/17 09:57 Dose: 81 mg Calcium Acetate (Phoslo -) 667 mg PO DAILY [facility] Last Admin: 11/10/17 09:57 Dose: 667 mg Cyanocobalamin (Vitamin B12 -) 100 mcg PO DAILY [facility] Last Admin: 11/10/17 09:57 Dose: 100 mcg Diphenhydramine HCl (Benadryl -) 25 mg PO HS PRN PRN Reason: INSOMNIA Last Admin: 11/09/17 23:51 Dose: 25 mg Docusate Sodium (Colace -) 100 mg PO DAILY [facility] Last Admin: 11/10/17 09:57 Dose: 100 mg IV Flush (Kate-Cath Flush) 10 ml IVPUSH PRN PRN PRN Reason: Protocol Tigecycline 50 mg/ Dextrose 100 mls @ 100 mls/hr IVPB BID [facility] PRN Reason: Protocol Last Admin: 11/10/17 12:21 Dose: 100 mls/hr Daptomycin 500 mg/ Sodium (Chloride) 100 mls @ 200 mls/hr IVPB Q48H [facility] PRN Reason: Protocol Last Admin: 11/08/17 15:10 Dose: 200 mls/hr Insulin Aspart (Novolog Vial Sliding Scale -) 1 vial SQ TIDAC [facility] PRN Reason: Protocol Last Admin: 11/10/17 06:24 Dose: 3 units Insulin Detemir (Levemir Vial) 16 units SQ BID@0700,2200 [facility] Last Admin: 11/10/17 06:19 Dose: 16 units Lactobacillus Acidophilus (Bacid -) 1 tab PO DAILY [facility] Last Admin: 11/10/17 09:57 Dose: 1 tab Levothyroxine Sodium (Synthroid -) 125 mcg PO DAILY@0700 [facility] Last Admin: 11/10/17 06:18 Dose: 125 mcg Metoprolol Tartrate (Lopressor -) 12.5 mg PO DAILY [facility] Last Admin: 11/10/17 09:56 Dose: 12.5 mg Nitroglycerin (Nitrostat -) 0.4 mg SL DAILY PRN PRN Reason: FOR CHEST PAIN Ondansetron HCl (Zofran Injection) 4 mg IVPB Q6H PRN PRN Reason: NAUSEA Pantoprazole Sodium (Protonix -) 40 mg PO DAILY [facility] Last Admin: 11/10/17 09:57 Dose: 40 mg Polyethylene Glycol (Miralax (For Daily Use) -) 17 gm PO DAILY [facility] Last Admin: 11/10/17 09:58 Dose: 17 grams Senna (Senna -) 1 tab PO HS [facility] Last Admin: 11/09/17 21:34 Dose: 1 tab - Objective Vital Signs: Vital Signs Temperature 98.6 F 11/10/17 15:17 Pulse Rate 76 11/10/17 15:17 Respiratory Rate 17 11/10/17 15:17 Blood Pressure 114/44 11/10/17 02:15 O2 Sat by Pulse Oximetry (%) 100 11/10/17 09:00 Constitutional: Yes: No Distress Cardiovascular: Yes: Regular Rate and Rhythm Respiratory: Yes: Diminished Gastrointestinal: Yes: Normal Bowel Sounds, Soft. No: Tenderness Extremities: Yes: Amputation Edema: No Labs: CBC, BMP 11/09/17 13:45 11/09/17 13:45 INR, PTT INR 1.12 (0.82-1.09) D 11/10/17 06:00 Problem List - Problems (1) Cellulitis and abscess of hand Code(s): L03.119 - CELLULITIS OF UNSPECIFIED PART OF LIMB; L02.519 - CUTANEOUS ABSCESS OF UNSPECIFIED HAND (2) Anemia Code(s): D64.9 - ANEMIA, UNSPECIFIED Qualifiers: Anemia type: other cause Other causes of anemia: chronic disease, kidney (3) Atrial fibrillation Code(s): I48.91 - UNSPECIFIED ATRIAL FIBRILLATION Qualifiers: Atrial fibrillation type: unspecified Qualified Code(s): I48.91 - Unspecified atrial fibrillation (4) DM type 2 causing complication Code(s): E11.8 - TYPE 2 DIABETES MELLITUS WITH UNSPECIFIED COMPLICATIONS (5) ESRD (end stage renal disease) on dialysis Code(s): N18.6 - END STAGE RENAL DISEASE; Z99.2 - DEPENDENCE ON RENAL DIALYSIS Assessment/Plan Abx per ID-- needs total 6 weeks-- Dapto +Tigecil-- spoke with nurse-- needs picc line for antibiotics will hold coumadin in anticipation for procedure-- INR low- should get it today continue other meds monitor bgm-- on Levemir dc planning-- assistant case manager to contact facility where pt may receive both Dapto + Tigecil , dialysis pain control dialysis per renal will follow BP stable Prostat BID Appetite decreased probably due to antibiotics, illness, infection
[2017-11-10] MEDS: DAPTOMYCIN 500 MG in SODIUM CHLORIDE 100 ML IVPB SCH (17:51)
--- NOTE | 2017-11-10 20:23 | PN ---
Progress Note (short form) - Note Progress Note: CCU. 72 year old white female known case of CAD, s/p multivessel PCI/stenting, severe LV systolic dysfunction, s/p ICD, permanent atrial fib, h/o hypotension. DM with multi system involvement, ESRD-HD, hypertension admitted with gangrenous changes involving the fingers of the left hand requiring amputations and found to have bone infection in the amputated finger. Patient denies having chest pain or discomfort, no SOB reported, hemodynamics are stable.No furtherepusode of hypoglycemia. Active Medications Acetaminophen (Tylenol -) 650 mg PO Q4H PRN PRN Reason: BACK PAIN Last Admin: 11/10/17 12:33 Dose: 650 mg Amino Acids (Prosource No Carb Liquid Pkt) 30 ml PO BID@0800,1730 [facility] Last Admin: 11/10/17 17:26 Dose: 30 ml Aspirin (Asa -) 81 mg PO DAILY [facility] Last Admin: 11/10/17 09:57 Dose: 81 mg Calcium Acetate (Phoslo -) 667 mg PO DAILY [facility] Last Admin: 11/10/17 09:57 Dose: 667 mg Cyanocobalamin (Vitamin B12 -) 100 mcg PO DAILY [facility] Last Admin: 11/10/17 09:57 Dose: 100 mcg Diphenhydramine HCl (Benadryl -) 25 mg PO HS PRN PRN Reason: INSOMNIA Last Admin: 11/09/17 23:51 Dose: 25 mg Docusate Sodium (Colace -) 100 mg PO DAILY [facility] Last Admin: 11/10/17 09:57 Dose: 100 mg IV Flush (Kate-Cath Flush) 10 ml IVPUSH PRN PRN PRN Reason: Protocol Tigecycline 50 mg/ Dextrose 100 mls @ 100 mls/hr IVPB BID [facility] PRN Reason: Protocol Last Admin: 11/10/17 12:21 Dose: 100 mls/hr Daptomycin 500 mg/ Sodium (Chloride) 100 mls @ 200 mls/hr IVPB Q48H [facility] PRN Reason: Protocol Last Admin: 11/10/17 17:51 Dose: 200 mls/hr Insulin Aspart (Novolog Vial Sliding Scale -) 1 vial SQ TIDAC [facility] PRN Reason: Protocol Last Admin: 11/10/17 17:24 Dose: Not Given Insulin Detemir (Levemir Vial) 16 units SQ BID@0700,2200 [facility] Last Admin: 11/10/17 06:19 Dose: 16 units Lactobacillus Acidophilus (Bacid -) 1 tab PO DAILY [facility] Last Admin: 11/10/17 09:57 Dose: 1 tab Levothyroxine Sodium (Synthroid -) 125 mcg PO DAILY@0700 [facility] Last Admin: 11/10/17 06:18 Dose: 125 mcg Metoprolol Tartrate (Lopressor -) 12.5 mg PO DAILY [facility] Last Admin: 11/10/17 09:56 Dose: 12.5 mg Nitroglycerin (Nitrostat -) 0.4 mg SL DAILY PRN PRN Reason: FOR CHEST PAIN Ondansetron HCl (Zofran Injection) 4 mg IVPB Q6H PRN PRN Reason: NAUSEA Pantoprazole Sodium (Protonix -) 40 mg PO DAILY [facility] Last Admin: 11/10/17 09:57 Dose: 40 mg Polyethylene Glycol (Miralax (For Daily Use) -) 17 gm PO DAILY [facility] Last Admin: 11/10/17 09:58 Dose: 17 grams Senna (Senna -) 1 tab PO HS [facility] Last Admin: 11/09/17 21:34 Dose: 1 tab Last Vital Signs Temp Pulse Resp BP Pulse Ox 98.1 F 74 16 110/32 100 11/10/17 18:00 11/10/17 16:00 11/10/17 16:00 11/10/17 16:00 11/10/17 09:00 NECK: Supple, no JVD, carotids 1-2+, no bruits heards. anterior surgical scar. HEART: PMI in the 5th ICS, LINDA II/ 2nd right ICS. no gallops heard. LUNGS; Clear on auscultation. ABDOMEN: Soft, 2 firm and tender lesions involving the left abdominal wall with induration and increased warmth, no organomegaly. EXTREMITIES: Rt. AKA, left partial amputation of the foot. Left hand is bandaged. CBC, BMP 11/09/17 13:45 11/09/17 13:45 IMPRESSION: 1. Firm and tender masses involving the left abdominal wall, consider infected injection site or infected hematoma. 2. CAD, s/p CA. s/p PCI/stenting. 4. Diabetes mellitus wth multisystem involement 5. Permanent atrial fib. with controlled ventricular response. 6. Hypertension. 7. Severe LV systolic dysfunction. 8. ICD. Recommendations: 1. ID evaluation. 2. May need I&D. 3. current cardiac therapy.
[2017-11-10] MEDS: SENNOSIDES 8.6MG TABLET (FP) PO SCH (22:24)
[2017-11-10] MEDS: diphenhydrAMINE HCL 25 MG CAPSULE (FP) PO PRN (22:35)
[2017-11-11] MEDS: INSULIN SLIDING SCALE (NOVOLOG) 1 VIAL SQ SCH ×3 (06:07→16:58)
[2017-11-11] MEDS: INSULIN DETEMIR 100 UNITS/ML MDV SQ SCH ×2 (06:07→21:40)
[2017-11-11] MEDS: LEVOTHYROXINE NA 125 MCG TABLET (FP) PO SCH (06:07)
[2017-11-11] MEDS ORDERED: PT OWN MED DRAWER 7, Y5N ONE ×2 (07:43→20:01)
[2017-11-11] MEDS: AMINO ACIDS/PROTEIN HYDROLYS 30 ML LIQUID.PKT PO SCH ×2 (08:28→16:59)
[2017-11-11] MEDS: ASPIRIN 81 MG CHEWABLE TABLETS PO SCH (09:38)
[2017-11-11] MEDS: CALCIUM ACETATE 667 MG CAPSULE (FP) PO SCH (09:39)
[2017-11-11] MEDS: CYANOCOBALAMIN (VITAMIN B-12) 100 MCG TABLET PO SCH (09:39)
[2017-11-11] MEDS: LACTOBACILLUS ACIDOPHILUS 1 EACH TAB (FP) PO SCH (09:39)
[2017-11-11] MEDS: PANTOPRAZOLE 40 MG TABLET (FP) PO SCH (09:39)
[2017-11-11] MEDS: DOCUSATE SODIUM 100 MG CAPSULE (FP) PO SCH (09:39)
[2017-11-11] MEDS: ACETAMINOPHEN 325 MG TABLET (FP) PO PRN ×3 (09:40→21:38)
[2017-11-11] MEDS: TIGECYCLINE 50 MG in DEXTROSE 5%-WATER - 100 ML IVPB SCH ×2 (09:48→21:30)
[2017-11-11] MEDS: POLYETHYLENE GLYCOL 3350 119 GM BTL PO SCH (09:48)
--- NOTE | 2017-11-11 09:51 | PN ---
Progress Note (short form) - Note Progress Note: pt seen/ examined . chart reviewed comfortable c/c- soarness in belly mood ok today. Vital Signs Temp 98.1 F 11/11/17 04:25 Pulse 79 11/11/17 04:32 Resp 20 11/11/17 04:25 BP 105/50 11/11/17 04:32 Pulse Ox 98 11/11/17 08:00 Intake & Output 11/10/17 11/10/17 11/11/17 11:59 23:59 11:59 Intake Total 200 100 Balance 200 100 Intake: IVPB 100 Oral 100 100 Other: Voiding Method Diaper Diaper Diaper Bowel Movement No Active Medications Acetaminophen (Tylenol -) 650 mg PO Q4H PRN PRN Reason: BACK PAIN Last Admin: 11/11/17 09:40 Dose: 650 mg Amino Acids (Prosource No Carb Liquid Pkt) 30 ml PO BID@0800,1730 [facility] Last Admin: 11/11/17 08:28 Dose: 30 ml Aspirin (Asa -) 81 mg PO DAILY [facility] Last Admin: 11/11/17 09:38 Dose: 81 mg Calcium Acetate (Phoslo -) 667 mg PO DAILY [facility] Last Admin: 11/11/17 09:39 Dose: 667 mg Cyanocobalamin (Vitamin B12 -) 100 mcg PO DAILY [facility] Last Admin: 11/11/17 09:39 Dose: 100 mcg Diphenhydramine HCl (Benadryl -) 25 mg PO HS PRN PRN Reason: INSOMNIA Last Admin: 11/10/17 22:35 Dose: 25 mg Docusate Sodium (Colace -) 100 mg PO DAILY [facility] Last Admin: 11/11/17 09:39 Dose: 100 mg IV Flush (Kate-Cath Flush) 10 ml IVPUSH PRN PRN PRN Reason: Protocol Tigecycline 50 mg/ Dextrose 100 mls @ 100 mls/hr IVPB BID [facility] PRN Reason: Protocol Last Admin: 11/10/17 22:25 Dose: 100 mls/hr Daptomycin 500 mg/ Sodium (Chloride) 100 mls @ 200 mls/hr IVPB Q48H [facility] PRN Reason: Protocol Last Admin: 11/10/17 17:51 Dose: 200 mls/hr Insulin Aspart (Novolog Vial Sliding Scale -) 1 vial SQ TIDAC [facility] PRN Reason: Protocol Last Admin: 11/11/17 06:07 Dose: Not Given Insulin Detemir (Levemir Vial) 16 units SQ BID@0700,2200 [facility] Last Admin: 11/11/17 06:07 Dose: Not Given Lactobacillus Acidophilus (Bacid -) 1 tab PO DAILY [facility] Last Admin: 11/11/17 09:39 Dose: 1 tab Levothyroxine Sodium (Synthroid -) 125 mcg PO DAILY@0700 [facility] Last Admin: 11/11/17 06:07 Dose: 125 mcg Metoprolol Tartrate (Lopressor -) 12.5 mg PO DAILY [facility] Last Admin: 11/10/17 09:56 Dose: 12.5 mg Nitroglycerin (Nitrostat -) 0.4 mg SL DAILY PRN PRN Reason: FOR CHEST PAIN Ondansetron HCl (Zofran Injection) 4 mg IVPB Q6H PRN PRN Reason: NAUSEA Pantoprazole Sodium (Protonix -) 40 mg PO DAILY [facility] Last Admin: 11/11/17 09:39 Dose: 40 mg Polyethylene Glycol (Miralax (For Daily Use) -) 17 gm PO DAILY [facility] Last Admin: 11/10/17 09:58 Dose: 17 grams Senna (Senna -) 1 tab PO HS [facility] Last Admin: 11/10/17 22:24 Dose: 1 tab CBC, BMP 11/09/17 13:45 11/09/17 13:45 INR, PTT INR 1.12 (0.82-1.09) D 11/10/17 06:00 - Objective Constitutional: Yes: No Distress. comfortable Cardiovascular: Yes: Regular Rate and Rhythm Respiratory: Yes: Diminished at bases Gastrointestinal: Yes: Normal Bowel Sounds, Soft. + ve firm swelling - tender to touch - left side abdomen- consistent with infected hematoma Extremities: Yes: Amputation. dressing + Left Hand. Assessment/Plan stable ice pack to abdominal wall surgical eval Abx per ID-- needs total 6 weeks-- Dapto +Tigecil-- needs picc line for antibiotics-- today continue other meds monitor bgm-- on Levemir restart coumadin tonight dc planning-- field nurse case manager to contact facility where pt may receive both Dapto + Tigecil , dialysis pain control dialysis per renal-- today will follow Problem List - Problems (1) Cellulitis and abscess of hand Code(s): L03.119 - CELLULITIS OF UNSPECIFIED PART OF LIMB; L02.519 - CUTANEOUS ABSCESS OF UNSPECIFIED HAND (2) Anemia in ESRD (end-stage renal disease) Code(s): N18.6 - END STAGE RENAL DISEASE; D63.1 - ANEMIA IN CHRONIC KIDNEY DISEASE (3) Atrial fibrillation Code(s): I48.91 - UNSPECIFIED ATRIAL FIBRILLATION Qualifiers: Atrial fibrillation type: unspecified Qualified Code(s): I48.91 - Unspecified atrial fibrillation (4) CAD (coronary artery disease) Code(s): I25.10 - ATHSCL HEART DISEASE OF [place] CORONARY ARTERY W/O ANG PCTRS Qualifiers: Coronary Disease-Associated Artery/Lesion type: [place] artery [place] vs. transplanted heart: [place] heart Associated angina: without angina Qualified Code(s): I25.10 - Atherosclerotic heart disease of [place] coronary artery without angina pectoris (5) ESRD (end stage renal disease) on dialysis Code(s): N18.6 - END STAGE RENAL DISEASE; Z99.2 - DEPENDENCE ON RENAL DIALYSIS (6) HTN (hypertension) Code(s): I10 - ESSENTIAL (PRIMARY) HYPERTENSION Qualifiers: Hypertension type: essential hypertension Qualified Code(s): I10 - Essential (primary) hypertension (7) History of percutaneous coronary intervention Code(s): Z98.890 - OTHER SPECIFIED POSTPROCEDURAL STATES (8) Status post transmetatarsal amputation of left foot Code(s): Z89.432 - ACQUIRED ABSENCE OF LEFT FOOT (9) Unilateral AKA Code(s): Z89.619 - ACQUIRED ABSENCE OF UNSPECIFIED LEG ABOVE KNEE
[2017-11-11] MEDS: METOPROLOL TARTRATE 25 MG TABLET (FP) PO SCH (09:57)
--- NOTE | 2017-11-11 10:04 | PN ---
Progress Note, Physician Chief Complaint: left hand wet and dry gangrene History of Present Illness: 72 yo female PMH HTN, DM, HLD, PAD, CHF, A-fib, defibrillator placement,pvd, ESRD (Dialysis on M,W,F- left chest tunnel catheter ), Right AKA amputation, Left foot amputation, and Left hand 2nd-4th digit partial amputation (02/2017) who presents with left hand pain. found to have flexor tenosynovitis and a combination of wet and dry gangrene. Reports some abdominal pain. - Current Medication List Current Medications: Active Medications Acetaminophen (Tylenol -) 650 mg PO Q4H PRN PRN Reason: BACK PAIN Last Admin: 11/11/17 09:40 Dose: 650 mg Amino Acids (Prosource No Carb Liquid Pkt) 30 ml PO BID@0800,1730 [facility] Last Admin: 11/11/17 08:28 Dose: 30 ml Aspirin (Asa -) 81 mg PO DAILY [facility] Last Admin: 11/11/17 09:38 Dose: 81 mg Calcium Acetate (Phoslo -) 667 mg PO DAILY [facility] Last Admin: 11/11/17 09:39 Dose: 667 mg Cyanocobalamin (Vitamin B12 -) 100 mcg PO DAILY [facility] Last Admin: 11/11/17 09:39 Dose: 100 mcg Diphenhydramine HCl (Benadryl -) 25 mg PO HS PRN PRN Reason: INSOMNIA Last Admin: 11/10/17 22:35 Dose: 25 mg Docusate Sodium (Colace -) 100 mg PO DAILY [facility] Last Admin: 11/11/17 09:39 Dose: 100 mg IV Flush (Kate-Cath Flush) 10 ml IVPUSH PRN PRN PRN Reason: Protocol Tigecycline 50 mg/ Dextrose 100 mls @ 100 mls/hr IVPB BID [facility] PRN Reason: Protocol Last Admin: 11/11/17 09:48 Dose: 100 mls/hr Daptomycin 500 mg/ Sodium (Chloride) 100 mls @ 200 mls/hr IVPB Q48H [facility] PRN Reason: Protocol Last Admin: 11/10/17 17:51 Dose: 200 mls/hr Insulin Aspart (Novolog Vial Sliding Scale -) 1 vial SQ TIDAC [facility] PRN Reason: Protocol Last Admin: 11/11/17 06:07 Dose: Not Given Insulin Detemir (Levemir Vial) 16 units SQ BID@0700,2200 [facility] Last Admin: 11/11/17 06:07 Dose: Not Given Lactobacillus Acidophilus (Bacid -) 1 tab PO DAILY [facility] Last Admin: 11/11/17 09:39 Dose: 1 tab Levothyroxine Sodium (Synthroid -) 125 mcg PO DAILY@0700 [facility] Last Admin: 11/11/17 06:07 Dose: 125 mcg Metoprolol Tartrate (Lopressor -) 12.5 mg PO DAILY [facility] Last Admin: 11/11/17 09:57 Dose: Not Given Nitroglycerin (Nitrostat -) 0.4 mg SL DAILY PRN PRN Reason: FOR CHEST PAIN Ondansetron HCl (Zofran Injection) 4 mg IVPB Q6H PRN PRN Reason: NAUSEA Pantoprazole Sodium (Protonix -) 40 mg PO DAILY [facility] Last Admin: 11/11/17 09:39 Dose: 40 mg Polyethylene Glycol (Miralax (For Daily Use) -) 17 gm PO DAILY [facility] Last Admin: 11/11/17 09:48 Dose: 17 grams Senna (Senna -) 1 tab PO HS [facility] Last Admin: 11/10/17 22:24 Dose: 1 tab - Objective Vital Signs: Vital Signs Temperature 98.1 F 11/11/17 04:25 Pulse Rate 79 11/11/17 04:32 Respiratory Rate 20 11/11/17 04:25 Blood Pressure 105/50 11/11/17 04:32 O2 Sat by Pulse Oximetry (%) 98 11/11/17 08:00 Constitutional: Yes: Well Nourished, No Distress, Anxious Eyes: Yes: Conjunctiva Clear, EOM Intact HENT: Yes: Atraumatic, Normocephalic Neck: Yes: Supple, Trachea Midline Cardiovascular: Yes: Regular Rate and Rhythm, S1, S2 Respiratory: Yes: Regular, CTA Bilaterally Gastrointestinal: Yes: Normal Bowel Sounds, Soft, Tenderness (left lateral pannus ecchymosis and tenderness with fout fluctuance) Genitourinary: No: CVA Tenderness - Left, CVA Tenderness - Right Extremities: No: Cool, Cyanosis Edema: Yes Wound/Incision: Yes: Well Approximated, Sutures Intact, Unapproximated (3rd MCP joint) Neurological: Yes: Alert, Oriented Psychiatric: Yes: Alert, Oriented Labs: CBC, BMP 11/09/17 13:45 11/09/17 13:45 INR, PTT INR 1.12 (0.82-1.09) D 11/10/17 06:00 Problem List - Problems (1) Gangrene of hand Assessment/Plan: 72 yo female MMP including Afib on coumadin, DM type 2 and ESRD, Wet gangrene and flexor tenosynovitis left middle finger, dry gangrene of index and ring fingers, poor distal circulation on duplex with PVR left arm. POD#11 s/p Left middle finger irrigation and debridement of flexor tenosynovitis and revision amputation of index middle and ring fingers. on daptomycin and tygacil per ID the wound is clean . She has some bruising of the abdominal panus on the left where she has been getting heparin Alternate abdominal site for heparin injection Warm compresses for comfort continue IV antibiotics per ID adequate analgesia Will need discharge with VNS for daily dressing Wound measurement: left middle open MCP [id number], clean no purulent drainage Dressing instructions: open MCP, Xeroform, loose rolled gauze PT evaluation appreciated Can be discharged to appropriate facility Follow-up plan in discharge plan Code(s): I96 - GANGRENE, NOT ELSEWHERE CLASSIFIED (2) Flexor tenosynovitis of finger Code(s): M65.9 - SYNOVITIS AND TENOSYNOVITIS, UNSPECIFIED (3) Cellulitis and abscess of hand Code(s): L03.119 - CELLULITIS OF UNSPECIFIED PART OF LIMB; L02.519 - CUTANEOUS ABSCESS OF UNSPECIFIED HAND (4) Anemia in ESRD (end-stage renal disease) Code(s): N18.6 - END STAGE RENAL DISEASE; D63.1 - ANEMIA IN CHRONIC KIDNEY DISEASE (5) CAD (coronary artery disease) Code(s): I25.10 - ATHSCL HEART DISEASE OF [place] CORONARY ARTERY W/O ANG PCTRS Qualifiers: Coronary Disease-Associated Artery/Lesion type: [place] artery [place] vs. transplanted heart: [place] heart Associated angina: without angina Qualified Code(s): I25.10 - Atherosclerotic heart disease of [place] coronary artery without angina pectoris (6) DM type 2 causing complication Code(s): E11.8 - TYPE 2 DIABETES MELLITUS WITH UNSPECIFIED COMPLICATIONS (7) ESRD on hemodialysis Code(s): N18.6 - END STAGE RENAL DISEASE; Z99.2 - DEPENDENCE ON RENAL DIALYSIS (8) HTN (hypertension) Code(s): I10 - ESSENTIAL (PRIMARY) HYPERTENSION Qualifiers: Hypertension type: essential hypertension Qualified Code(s): I10 - Essential (primary) hypertension (9) Hypercholesterolemia Code(s): E78.00 - PURE HYPERCHOLESTEROLEMIA, UNSPECIFIED
--- NOTE | 2017-11-11 10:27 | PN ---
Progress Note, Physician Chief Complaint: 72 The patient seen in the ICU. Feeling better. Getting in-bed PT in her room. IV antibiotics infusing. No specific complaints. Upset about the expenses related to rehab placement. History of Present Illness: 72 year old woman with PMhx of ESRD on HD, Hypertension, CAD, DM on Insulin, PVD who presented with worsening hand pain. The patient had I and D of hand abscess. The patient is feeling better. Dressig in place over the hand - Current Medication List Current Medications: Active Medications Acetaminophen (Tylenol -) 650 mg PO Q4H PRN PRN Reason: BACK PAIN Last Admin: 11/11/17 09:40 Dose: 650 mg Amino Acids (Prosource No Carb Liquid Pkt) 30 ml PO BID@0800,1730 [facility] Last Admin: 11/11/17 08:28 Dose: 30 ml Aspirin (Asa -) 81 mg PO DAILY [facility] Last Admin: 11/11/17 09:38 Dose: 81 mg Calcium Acetate (Phoslo -) 667 mg PO DAILY [facility] Last Admin: 11/11/17 09:39 Dose: 667 mg Cyanocobalamin (Vitamin B12 -) 100 mcg PO DAILY [facility] Last Admin: 11/11/17 09:39 Dose: 100 mcg Diphenhydramine HCl (Benadryl -) 25 mg PO HS PRN PRN Reason: INSOMNIA Last Admin: 11/10/17 22:35 Dose: 25 mg Docusate Sodium (Colace -) 100 mg PO DAILY [facility] Last Admin: 11/11/17 09:39 Dose: 100 mg IV Flush (Kate-Cath Flush) 10 ml IVPUSH PRN PRN PRN Reason: Protocol Tigecycline 50 mg/ Dextrose 100 mls @ 100 mls/hr IVPB BID YOAN PRN Reason: Protocol Last Admin: 11/11/17 09:48 Dose: 100 mls/hr Daptomycin 500 mg/ Sodium (Chloride) 100 mls @ 200 mls/hr IVPB Q48H YOAN PRN Reason: Protocol Last Admin: 11/10/17 17:51 Dose: 200 mls/hr Insulin Aspart (Novolog Vial Sliding Scale -) 1 vial SQ TIDAC [facility] PRN Reason: Protocol Last Admin: 11/11/17 06:07 Dose: Not Given Insulin Detemir (Levemir Vial) 16 units SQ BID@0700,2200 [facility] Last Admin: 11/11/17 06:07 Dose: Not Given Lactobacillus Acidophilus (Bacid -) 1 tab PO DAILY [facility] Last Admin: 11/11/17 09:39 Dose: 1 tab Levothyroxine Sodium (Synthroid -) 125 mcg PO DAILY@0700 [facility] Last Admin: 11/11/17 06:07 Dose: 125 mcg Metoprolol Tartrate (Lopressor -) 12.5 mg PO DAILY [facility] Last Admin: 11/11/17 09:57 Dose: Not Given Nitroglycerin (Nitrostat -) 0.4 mg SL DAILY PRN PRN Reason: FOR CHEST PAIN Ondansetron HCl (Zofran Injection) 4 mg IVPB Q6H PRN PRN Reason: NAUSEA Pantoprazole Sodium (Protonix -) 40 mg PO DAILY [facility] Last Admin: 11/11/17 09:39 Dose: 40 mg Polyethylene Glycol (Miralax (For Daily Use) -) 17 gm PO DAILY [facility] Last Admin: 11/11/17 09:48 Dose: 17 grams Senna (Senna -) 1 tab PO HS [facility] Last Admin: 11/10/17 22:24 Dose: 1 tab - Objective Vital Signs: Vital Signs Temperature 98.1 F 11/11/17 04:25 Pulse Rate 79 11/11/17 04:32 Respiratory Rate 20 11/11/17 04:25 Blood Pressure 105/50 11/11/17 04:32 O2 Sat by Pulse Oximetry (%) 98 11/11/17 08:00 Constitutional: Yes: Anxious, Mild Distress, Pallor HENT: Yes: Normocephalic Neck: Yes: Trachea Midline Cardiovascular: Yes: S1, S2 Respiratory: Yes: CTA Bilaterally, Diminished Gastrointestinal: Yes: Normal Bowel Sounds, Soft Genitourinary: No: CVA Tenderness - Left, CVA Tenderness - Right Extremities: Yes: Amputation Labs: CBC, BMP 11/09/17 13:45 11/09/17 13:45 INR, PTT INR 1.12 (0.82-1.09) D 11/10/17 06:00 Problem List - Problems (1) Cellulitis and abscess of hand Code(s): L03.119 - CELLULITIS OF UNSPECIFIED PART OF LIMB; L02.519 - CUTANEOUS ABSCESS OF UNSPECIFIED HAND (2) Flexor tenosynovitis of finger Code(s): M65.9 - SYNOVITIS AND TENOSYNOVITIS, UNSPECIFIED (3) Anemia Code(s): D64.9 - ANEMIA, UNSPECIFIED Qualifiers: Anemia type: other cause Other causes of anemia: chronic disease, kidney (4) Atrial fibrillation Code(s): I48.91 - UNSPECIFIED ATRIAL FIBRILLATION Qualifiers: Atrial fibrillation type: unspecified Qualified Code(s): I48.91 - Unspecified atrial fibrillation (5) CAD (coronary artery disease) Code(s): I25.10 - ATHSCL HEART DISEASE OF [place] CORONARY ARTERY W/O ANG PCTRS Qualifiers: Coronary Disease-Associated Artery/Lesion type: [place] artery [place] vs. transplanted heart: [place] heart Associated angina: without angina Qualified Code(s): I25.10 - Atherosclerotic heart disease of [place] coronary artery without angina pectoris (6) DM type 2 causing complication Code(s): E11.8 - TYPE 2 DIABETES MELLITUS WITH UNSPECIFIED COMPLICATIONS (7) ESRD on hemodialysis Code(s): N18.6 - END STAGE RENAL DISEASE; Z99.2 - DEPENDENCE ON RENAL DIALYSIS Assessment/Plan 72 year old woman with PMhx of ESRD on HD, Hypertension, CAD, DM on Insulin, PVD who presented with worsening hand pain. The patient is hemodynamically stable. On Daptomycin and Tygecyclie Started on PT for the hand. HD today in her room. Orders reviewed with the RN. Will need to continue antibiotics as out patient to complete the course as per the ID services. Thank you. Will folllow with you. Layla Evans MD
--- NOTE | 2017-11-11 12:10 | PN ---
Progress Note (short form) - Note Progress Note: CCU. 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 Patient denies having chest pain or discomfort, no SOB reported, hemodynamics are stable. Patient is resting comfortably. Active Medications Generic Name Dose Route Start Last Admin Trade Name Freq PRN Reason Stop Dose Admin Acetaminophen 650 mg 10/31/17 16:05 11/11/17 09:40 Tylenol - PO 650 mg Q4H PRN Administration BACK PAIN Amino Acids 30 ml 11/09/17 17:30 11/11/17 08:28 Prosource No Carb Liquid Pkt PO 30 ml BID@0800,1730 YOAN Administration Aspirin 81 mg 11/01/17 10:00 11/11/17 09:38 Asa - PO 81 mg DAILY YOAN Administration Calcium Acetate 667 mg 11/01/17 10:00 11/11/17 09:39 Phoslo - PO 667 mg DAILY YOAN Administration Cyanocobalamin 100 mcg 11/01/17 10:00 11/11/17 09:39 Vitamin B12 - PO 100 mcg DAILY YOAN Administration Diphenhydramine HCl 25 mg 11/09/17 11:07 11/10/17 22:35 Benadryl - PO 25 mg HS PRN Administration INSOMNIA Docusate Sodium 100 mg 11/01/17 10:00 11/11/17 09:39 Colace - PO 100 mg DAILY YAON Administration IV Flush 10 ml 11/08/17 11:34 Kate-Cath Flush IVPUSH PRN PRN Protocol Tigecycline 50 mg/ Dextrose 100 mls @ 100 mls/hr 11/04/17 22:00 11/11/17 09: 48 IVPB 100 mls/hr BID YOAN Administration Protocol Daptomycin 500 mg/ Sodium 100 mls @ 200 mls/hr 11/04/17 16:00 11/10/17 17:51 Chloride IVPB 200 mls/hr Q48H YOAN Administration Protocol Insulin Aspart 1 vial 11/03/17 16:30 11/11/17 11:13 Novolog Vial Sliding Scale - SQ Not Given TIDAC [facility] Protocol Insulin Detemir 16 units 11/02/17 12:17 11/11/17 06:07 Levemir Vial SQ Not Given BID@0700,2200 [facility] Lactobacillus Acidophilus 1 tab 11/01/17 10:00 11/11/17 09:39 Bacid - PO 1 tab DAILY YOAN Administration Levothyroxine Sodium 125 mcg 11/01/17 07:00 11/11/17 06:07 Synthroid - PO 125 mcg DAILY@0700 YOAN Administration Metoprolol Tartrate 12.5 mg 11/01/17 10:00 11/11/17 09:57 Lopressor - PO Not Given DAILY YOAN Nitroglycerin 0.4 mg 10/31/17 16:05 Nitrostat - SL DAILY PRN FOR CHEST PAIN Ondansetron HCl 4 mg 11/04/17 09:31 Zofran Injection IVPB Q6H PRN NAUSEA Pantoprazole Sodium 40 mg 11/01/17 10:00 11/11/17 09:39 Protonix - PO 40 mg DAILY YOAN Administration Polyethylene Glycol 17 gm 11/01/17 10:00 11/11/17 09:48 Miralax (For Daily Use) - PO 17 grams DAILY YOAN Administration Senna 1 tab 10/31/17 22:00 11/10/17 22:24 Senna - PO 1 tab HS YOAN Administration 72 year old female in no distress, no pallor, clubbing, cyanosis or jaundice. Last Vital Signs Temp Pulse Resp BP Pulse Ox 98.1 F 79 20 105/50 98 11/11/17 04:25 11/11/17 04:32 11/11/17 04:25 11/11/17 04:32 11/11/17 08:00 NECK: Supple, no JVD, carotids 1-2+, no bruits heards. anterior surgical scar. HEART: PMI in the 5th ICS, LINDA II/ 2nd right ICS. no gallops heard. LUNGS; Clear on auscultation. ABDOMEN: Soft, 2 firm and tender lesions involving the left abdominal wall with induration and increased warmth, no organomegaly. EXTREMITIES: Rt. AKA, left partial amputation of the foot. Left hand is bandaged. CBC, BMP 11/09/17 13:45 11/09/17 13:45 IMPRESSION: 1. Firm and tender masses involving the left abdominal wall, consider infected injection site or infected hematoma. 2. CAD, s/p MT. s/p PCI/stenting. 4. Diabetes mellitus with multisystem involvement 5. Permanent atrial fib. with controlled ventricular response. 6. Hypertension. 7. Severe LV systolic dysfunction. 8. ICD. Recommendations: 1. Current cardiac therapy. 2. ID evaluation. 3. May need I&D.
--- NOTE | 2017-11-11 16:47 | PN ---
Progress Note (short form) - Note Progress Note: now with some painful left abdominal induration at prior injection site no fevers no sob Vital Signs Period Temp Pulse Resp BP Sys/Cordero Pulse Ox Last 24 Hr 98.1 F-98.7 F 68-106 18-20 87-129/24-89 96-98 cor-rrr lungs decreased bs at bases abd soft, +2 by 4 cm induration by 2, no fluctuance no erythema ext dressing on hand CBC, BMP 11/09/17 13:45 11/09/17 13:45 Microbiology 10/31/17 16:30 Hand - Left Gram Stain - Final 10/31/17 16:30 Hand - Left Wound Culture - Preliminary Klebsiella Pneumoniae - Esbl Vr Ec Faecalis 10/30/17 16:28 Blood - Peripheral Venous Blood Culture - Final NO GROWTH AFTER 5 DAYS INCUBATION 10/30/17 15:43 Blood - Peripheral Venous Blood Culture - Final NO GROWTH AFTER 5 DAYS INCUBATION a/p would observe abdomen for now- no erythema or fluctuance noted-warm compresses prn pathology noted- acute osteo present at margin of amputated digit operative culture klebsiella esbl and vre currently on daptomycin and tygacil- no other options now day #8 antibiotics- will required fdc treatment for osteomyelitis of the hand esrd/hd DM Problem List - Problems (1) Flexor tenosynovitis of finger Code(s): M65.9 - SYNOVITIS AND TENOSYNOVITIS, UNSPECIFIED (2) Cellulitis of left hand Code(s): L03.114 - CELLULITIS OF LEFT UPPER LIMB (3) Diabetes Code(s): E11.9 - TYPE 2 DIABETES MELLITUS WITHOUT COMPLICATIONS Qualifiers: Diabetes mellitus type: type 1 Diabetes mellitus complication status: with circulatory complication Diabetes mellitus complication detail: with other circulatory complications Qualified Code(s): E10.59 - Type 1 diabetes mellitus with other circulatory complications (4) ESRD on hemodialysis Code(s): N18.6 - END STAGE RENAL DISEASE; Z99.2 - DEPENDENCE ON RENAL DIALYSIS
[2017-11-11] MEDS ORDERED: INSULIN (NOVOLOG) ASPART 100 UNITS/ML 10ML VIAL ONE (16:53)
[2017-11-11] MEDS: SENNOSIDES 8.6MG TABLET (FP) PO SCH (21:37)
[2017-11-11] MEDS: diphenhydrAMINE HCL 25 MG CAPSULE (FP) PO PRN (21:38)
[2017-11-12] MEDS ORDERED: PT OWN MED DRAWER 7, Y5N ONE ×3 (00:40→15:23)
[2017-11-12] MEDS: LEVOTHYROXINE NA 125 MCG TABLET (FP) PO SCH (06:09)
[2017-11-12] MEDS: INSULIN DETEMIR 100 UNITS/ML MDV SQ SCH ×2 (06:09→23:06)
[2017-11-12] MEDS: INSULIN SLIDING SCALE (NOVOLOG) 1 VIAL SQ SCH ×3 (06:09→17:12)
[2017-11-12] MEDS: ACETAMINOPHEN 325 MG TABLET (FP) PO PRN ×3 (08:25→23:07)
[2017-11-12] MEDS: AMINO ACIDS/PROTEIN HYDROLYS 30 ML LIQUID.PKT PO SCH ×2 (08:25→23:04)
[2017-11-12] MEDS: DOCUSATE SODIUM 100 MG CAPSULE (FP) PO SCH (08:59)
[2017-11-12] MEDS: LACTOBACILLUS ACIDOPHILUS 1 EACH TAB (FP) PO SCH (08:59)
[2017-11-12] MEDS: ASPIRIN 81 MG CHEWABLE TABLETS PO SCH (08:59)
[2017-11-12] MEDS: TIGECYCLINE 50 MG in DEXTROSE 5%-WATER - 100 ML IVPB SCH ×2 (08:59→23:07)
[2017-11-12] MEDS: CYANOCOBALAMIN (VITAMIN B-12) 100 MCG TABLET PO SCH (08:59)
[2017-11-12] MEDS: POLYETHYLENE GLYCOL 3350 119 GM BTL PO SCH (09:00)
[2017-11-12] MEDS: CALCIUM ACETATE 667 MG CAPSULE (FP) PO SCH (09:00)
[2017-11-12] MEDS: PANTOPRAZOLE 40 MG TABLET (FP) PO SCH (09:04)
[2017-11-12] MEDS: METOPROLOL TARTRATE 25 MG TABLET (FP) PO SCH (09:15)
--- NOTE | 2017-11-12 11:06 | PN ---
Progress Note (short form) - Note Progress Note: pt seen/ examined . comfortable. no new issues. all f/u noted. Vital Signs Temp 98.3 F 11/12/17 06:00 Pulse 71 11/12/17 06:00 Resp 20 11/12/17 06:00 BP 94/54 11/12/17 06:00 Pulse Ox 96 11/11/17 21:00 Intake & Output 11/11/17 11/11/17 11/12/17 11:59 23:59 11:59 Intake Total 120 420 100 Balance 120 420 100 Weight 189 lb 11.2 oz Intake: IV 20 20 IVSL #2 20 20 IVPB 100 100 Oral 300 100 Other: Voiding Method Diaper Diaper Active Medications Acetaminophen (Tylenol -) 650 mg PO Q4H PRN PRN Reason: BACK PAIN Last Admin: 11/12/17 08:25 Dose: 650 mg Amino Acids (Prosource No Carb Liquid Pkt) 30 ml PO BID@0800,1730 [facility] Last Admin: 11/12/17 08:25 Dose: 30 ml Aspirin (Asa -) 81 mg PO DAILY [facility] Last Admin: 11/12/17 08:59 Dose: 81 mg Calcium Acetate (Phoslo -) 667 mg PO DAILY [facility] Last Admin: 11/12/17 09:00 Dose: 667 mg Cyanocobalamin (Vitamin B12 -) 100 mcg PO DAILY [facility] Last Admin: 11/12/17 08:59 Dose: 100 mcg Diphenhydramine HCl (Benadryl -) 25 mg PO HS PRN PRN Reason: INSOMNIA Last Admin: 11/11/17 21:38 Dose: 25 mg Docusate Sodium (Colace -) 100 mg PO DAILY [facility] Last Admin: 11/12/17 08:59 Dose: 100 mg IV Flush (Kate-Cath Flush) 10 ml IVPUSH PRN PRN PRN Reason: Protocol Tigecycline 50 mg/ Dextrose 100 mls @ 100 mls/hr IVPB BID YOAN PRN Reason: Protocol Last Admin: 11/12/17 08:59 Dose: 100 mls/hr Daptomycin 500 mg/ Sodium (Chloride) 100 mls @ 200 mls/hr IVPB Q48H YOAN PRN Reason: Protocol Last Admin: 11/10/17 17:51 Dose: 200 mls/hr Insulin Aspart (Novolog Vial Sliding Scale -) 1 vial SQ TIDAC [facility] PRN Reason: Protocol Last Admin: 11/12/17 06:09 Dose: Not Given Insulin Detemir (Levemir Vial) 16 units SQ BID@0700,2200 [facility] Last Admin: 11/12/17 06:09 Dose: 16 units Lactobacillus Acidophilus (Bacid -) 1 tab PO DAILY [facility] Last Admin: 11/12/17 08:59 Dose: 1 tab Levothyroxine Sodium (Synthroid -) 125 mcg PO DAILY@0700 [facility] Last Admin: 11/12/17 06:09 Dose: 125 mcg Metoprolol Tartrate (Lopressor -) 12.5 mg PO DAILY [facility] Last Admin: 11/12/17 09:15 Dose: 12.5 mg Nitroglycerin (Nitrostat -) 0.4 mg SL DAILY PRN PRN Reason: FOR CHEST PAIN Ondansetron HCl (Zofran Injection) 4 mg IVPB Q6H PRN PRN Reason: NAUSEA Pantoprazole Sodium (Protonix -) 40 mg PO DAILY [facility] Last Admin: 11/12/17 09:04 Dose: 40 mg Polyethylene Glycol (Miralax (For Daily Use) -) 17 gm PO DAILY [facility] Last Admin: 11/12/17 09:00 Dose: Not Given Senna (Senna -) 1 tab PO HS [facility] Last Admin: 11/11/17 21:37 Dose: 1 tab CBC, BMP 11/09/17 13:45 11/09/17 13:45 INR, PTT INR 1.12 (0.82-1.09) D 11/10/17 06:00 - Objective Constitutional: Yes: No Distress. comfortable Cardiovascular: Yes: Regular Rate and Rhythm Respiratory: Yes: Diminished at bases Gastrointestinal: Yes: Normal Bowel Sounds, Soft. + ve firm swelling - tender to touch - left side abdomen- consistent with infected hematoma Extremities: Yes: Amputation. dressing + Left Hand. Assessment/Plan stable warm pack to abdominal wall surgical eval noted Abx per ID-- needs total 6 weeks-- Dapto +Tigecil-- needs picc line for antibiotics-- continue other meds monitor bgm-- on Levemir monitor inr dc planning-- in progress. will follow Problem List - Problems (1) Cellulitis and abscess of hand Code(s): L03.119 - CELLULITIS OF UNSPECIFIED PART OF LIMB; L02.519 - CUTANEOUS ABSCESS OF UNSPECIFIED HAND (2) Anemia in ESRD (end-stage renal disease) Code(s): N18.6 - END STAGE RENAL DISEASE; D63.1 - ANEMIA IN CHRONIC KIDNEY DISEASE (3) Atrial fibrillation Code(s): I48.91 - UNSPECIFIED ATRIAL FIBRILLATION Qualifiers: Atrial fibrillation type: unspecified Qualified Code(s): I48.91 - Unspecified atrial fibrillation (4) CAD (coronary artery disease) Code(s): I25.10 - ATHSCL HEART DISEASE OF [place] CORONARY ARTERY W/O ANG PCTRS Qualifiers: Coronary Disease-Associated Artery/Lesion type: [place] artery [place] vs. transplanted heart: [place] heart Associated angina: without angina Qualified Code(s): I25.10 - Atherosclerotic heart disease of [place] coronary artery without angina pectoris (5) ESRD (end stage renal disease) on dialysis Code(s): N18.6 - END STAGE RENAL DISEASE; Z99.2 - DEPENDENCE ON RENAL DIALYSIS (6) HTN (hypertension) Code(s): I10 - ESSENTIAL (PRIMARY) HYPERTENSION Qualifiers: Hypertension type: essential hypertension Qualified Code(s): I10 - Essential (primary) hypertension (7) History of percutaneous coronary intervention Code(s): Z98.890 - OTHER SPECIFIED POSTPROCEDURAL STATES (8) Status post transmetatarsal amputation of left foot Code(s): Z89.432 - ACQUIRED ABSENCE OF LEFT FOOT (9) Unilateral AKA Code(s): Z89.619 - ACQUIRED ABSENCE OF UNSPECIFIED LEG ABOVE KNEE
--- NOTE | 2017-11-12 12:18 | EKG ---
Test Reason : Blood Pressure : / mmHG Vent. Rate : 141 BPM Atrial Rate : 468 BPM P-R Int : 000 ms QRS Dur : 084 ms QT Int : 334 ms P-R-T Axes : 000 097 -36 degrees QTc Int : 511 ms POOR DATA QUALITY, INTERPRETATION MAY BE ADVERSELY AFFECTED ATRIAL FIBRILLATION WITH RAPID VENTRICULAR RESPONSE LOW VOLTAGE QRS ANTEROLATERAL INFARCT (CITED ON OR BEFORE 30-OCT-2017) ABNORMAL ECG WHEN COMPARED WITH ECG OF 03-NOV-2017 13:02, QUESTIONABLE CHANGE IN INITIAL FORCES OF LATERAL LEADS NON-SPECIFIC CHANGE IN ST SEGMENT IN LATERAL LEADS NONSPECIFIC T WAVE ABNORMALITY NO LONGER EVIDENT IN LATERAL LEADS Confirmed by TOVA CASTILLO, SHIN ([id number]) on 11/12/2017 12:18:23 PM Referred By: Confirmed By:SHIN BERNARDO MD
--- NOTE | 2017-11-12 14:01 | PN ---
Progress Note (short form) - Note Progress Note: CCU. 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 Patient denies having chest pain or discomfort, no SOB reported. C/o left sided abdominal tenderness and pain Active Medications Acetaminophen (Tylenol -) 650 mg PO Q4H PRN PRN Reason: BACK PAIN Last Admin: 11/12/17 08:25 Dose: 650 mg Amino Acids (Prosource No Carb Liquid Pkt) 30 ml PO BID@0800,1730 [facility] Last Admin: 11/12/17 08:25 Dose: 30 ml Aspirin (Asa -) 81 mg PO DAILY [facility] Last Admin: 11/12/17 08:59 Dose: 81 mg Calcium Acetate (Phoslo -) 667 mg PO DAILY [facility] Last Admin: 11/12/17 09:00 Dose: 667 mg Cyanocobalamin (Vitamin B12 -) 100 mcg PO DAILY [facility] Last Admin: 11/12/17 08:59 Dose: 100 mcg Diphenhydramine HCl (Benadryl -) 25 mg PO HS PRN PRN Reason: INSOMNIA Last Admin: 11/11/17 21:38 Dose: 25 mg Docusate Sodium (Colace -) 100 mg PO DAILY [facility] Last Admin: 11/12/17 08:59 Dose: 100 mg IV Flush (Kate-Cath Flush) 10 ml IVPUSH PRN PRN PRN Reason: Protocol Tigecycline 50 mg/ Dextrose 100 mls @ 100 mls/hr IVPB BID YOAN PRN Reason: Protocol Last Admin: 11/12/17 08:59 Dose: 100 mls/hr Daptomycin 500 mg/ Sodium (Chloride) 100 mls @ 200 mls/hr IVPB Q48H YOAN PRN Reason: Protocol Last Admin: 11/10/17 17:51 Dose: 200 mls/hr Insulin Aspart (Novolog Vial Sliding Scale -) 1 vial SQ TIDAC [facility] PRN Reason: Protocol Last Admin: 11/12/17 12:09 Dose: Not Given Insulin Detemir (Levemir Vial) 16 units SQ BID@0700,2200 [facility] Last Admin: 11/12/17 06:09 Dose: 16 units Lactobacillus Acidophilus (Bacid -) 1 tab PO DAILY [facility] Last Admin: 11/12/17 08:59 Dose: 1 tab Levothyroxine Sodium (Synthroid -) 125 mcg PO DAILY@0700 [facility] Last Admin: 11/12/17 06:09 Dose: 125 mcg Metoprolol Tartrate (Lopressor -) 12.5 mg PO DAILY [facility] Last Admin: 11/12/17 09:15 Dose: 12.5 mg Nitroglycerin (Nitrostat -) 0.4 mg SL DAILY PRN PRN Reason: FOR CHEST PAIN Ondansetron HCl (Zofran Injection) 4 mg IVPB Q6H PRN PRN Reason: NAUSEA Pantoprazole Sodium (Protonix -) 40 mg PO DAILY [facility] Last Admin: 11/12/17 09:04 Dose: 40 mg Polyethylene Glycol (Miralax (For Daily Use) -) 17 gm PO DAILY [facility] Last Admin: 11/12/17 09:00 Dose: Not Given Senna (Senna -) 1 tab PO HS [facility] Last Admin: 11/11/17 21:37 Dose: 1 tab 72 year old female in no distress, no pallor, clubbing, cyanosis or jaundice. Last Vital Signs Temp Pulse Resp BP Pulse Ox 98.0 F 88 20 132/62 96 11/12/17 10:00 11/12/17 10:00 11/12/17 10:00 11/12/17 10:00 11/12/17 10:00 NECK: Supple, no JVD, carotids 1-2+, no bruits heards. anterior surgical scar. HEART: PMI in the 5th ICS, LINDA II/ 2nd right ICS. no gallops heard. LUNGS; Clear on auscultation. ABDOMEN: Soft, firm and tender lesions involving the left abdominal wall with induration, no organomegaly. EXTREMITIES: Rt. AKA, left partial amputation of the foot. Left hand is bandaged. CBC, BMP 11/09/17 13:45 11/09/17 13:45 IMPRESSION: 1. Firm and tender lesions involving the left abdominal wall, consider infected injection site or infected hematoma. 2. CAD, s/p VT. s/p PCI/stenting. 4. Diabetes mellitus with multisystem involvement 5. Permanent atrial fib. with controlled ventricular response. 6. Hypertension. 7. Severe LV systolic dysfunction. 8. ICD. Recommendations: 1. Evaluation of abdominal lesion. 2. ID evaluation. 3. Continue current therapy. 4. F/u CBC/BMP.
[2017-11-12] MEDS: DAPTOMYCIN 500 MG in SODIUM CHLORIDE 100 ML IVPB SCH (15:26)
--- NOTE | 2017-11-12 20:18 | PN ---
Progress Note, Physician Chief Complaint: left hand wet and dry gangrene History of Present Illness: 72 yo female PMH HTN, DM, HLD, PAD, CHF, A-fib, defibrillator placement,pvd, ESRD (Dialysis on M,W,F- left chest tunnel catheter ), Right AKA amputation, Left foot amputation, and Left hand 2nd-4th digit partial amputation (02/2017) who presents with left hand pain. found to have flexor tenosynovitis and a combination of wet and dry gangrene. Reports some abdominal pain. - Current Medication List Current Medications: Active Medications Acetaminophen (Tylenol -) 650 mg PO Q4H PRN PRN Reason: BACK PAIN Last Admin: 11/12/17 15:26 Dose: 650 mg Amino Acids (Prosource No Carb Liquid Pkt) 30 ml PO BID@0800,1730 [facility] Last Admin: 11/12/17 08:25 Dose: 30 ml Aspirin (Asa -) 81 mg PO DAILY [facility] Last Admin: 11/12/17 08:59 Dose: 81 mg Calcium Acetate (Phoslo -) 667 mg PO DAILY [facility] Last Admin: 11/12/17 09:00 Dose: 667 mg Cyanocobalamin (Vitamin B12 -) 100 mcg PO DAILY [facility] Last Admin: 11/12/17 08:59 Dose: 100 mcg Diphenhydramine HCl (Benadryl -) 25 mg PO HS PRN PRN Reason: INSOMNIA Last Admin: 11/11/17 21:38 Dose: 25 mg Docusate Sodium (Colace -) 100 mg PO DAILY [facility] Last Admin: 11/12/17 08:59 Dose: 100 mg IV Flush (Kate-Cath Flush) 10 ml IVPUSH PRN PRN PRN Reason: Protocol Tigecycline 50 mg/ Dextrose 100 mls @ 100 mls/hr IVPB BID YOAN PRN Reason: Protocol Last Admin: 11/12/17 08:59 Dose: 100 mls/hr Daptomycin 500 mg/ Sodium (Chloride) 100 mls @ 200 mls/hr IVPB Q48H YOAN PRN Reason: Protocol Last Admin: 11/12/17 15:26 Dose: 200 mls/hr Insulin Aspart (Novolog Vial Sliding Scale -) 1 vial SQ TIDAC [facility] PRN Reason: Protocol Last Admin: 11/12/17 17:12 Dose: Not Given Insulin Detemir (Levemir Vial) 16 units SQ BID@0700,2200 [facility] Last Admin: 11/12/17 06:09 Dose: 16 units Lactobacillus Acidophilus (Bacid -) 1 tab PO DAILY [facility] Last Admin: 11/12/17 08:59 Dose: 1 tab Levothyroxine Sodium (Synthroid -) 125 mcg PO DAILY@0700 [facility] Last Admin: 11/12/17 06:09 Dose: 125 mcg Metoprolol Tartrate (Lopressor -) 12.5 mg PO DAILY [facility] Last Admin: 11/12/17 09:15 Dose: 12.5 mg Nitroglycerin (Nitrostat -) 0.4 mg SL DAILY PRN PRN Reason: FOR CHEST PAIN Ondansetron HCl (Zofran Injection) 4 mg IVPB Q6H PRN PRN Reason: NAUSEA Pantoprazole Sodium (Protonix -) 40 mg PO DAILY [facility] Last Admin: 11/12/17 09:04 Dose: 40 mg Polyethylene Glycol (Miralax (For Daily Use) -) 17 gm PO DAILY [facility] Last Admin: 11/12/17 09:00 Dose: Not Given Senna (Senna -) 1 tab PO HS [facility] Last Admin: 11/11/17 21:37 Dose: 1 tab - Objective Vital Signs: Vital Signs Temperature 98.2 F 11/12/17 18:00 Pulse Rate 90 11/12/17 18:00 Respiratory Rate 18 11/12/17 18:00 Blood Pressure 115/56 11/12/17 18:00 O2 Sat by Pulse Oximetry (%) 96 11/12/17 10:00 Vital Signs Period Temp Pulse Resp BP Sys/Cordero Pulse Ox Last 24 Hr 98.0 F-98.6 F 67-90 15-20 94-132/22-62 96-96 Constitutional: Yes: No Distress, Anxious, Obese Eyes: Yes: Conjunctiva Clear, EOM Intact HENT: Yes: Atraumatic, Normocephalic Neck: Yes: Supple, Trachea Midline Cardiovascular: Yes: Regular Rate and Rhythm, S1, S2. No: Murmur Respiratory: Yes: Regular, CTA Bilaterally Gastrointestinal: Yes: Normal Bowel Sounds, Soft, Tenderness (LLQ pannus with bruising) ...Rectal Exam: Yes: Deferred Genitourinary: No: CVA Tenderness - Left, CVA Tenderness - Right Extremities: Yes: Amputation. No: Cool, Cyanosis Wound/Incision: Yes: Clean/Dry, Sutures Intact, Unapproximated. No: Draining, Reddened, Bleeding Neurological: Yes: Alert Psychiatric: Yes: Alert, Oriented Labs: CBC, BMP 11/09/17 13:45 11/09/17 13:45 INR, PTT INR 1.12 (0.82-1.09) D 11/10/17 06:00 Problem List - Problems (1) Gangrene of hand Assessment/Plan: 72 yo female MMP including Afib on coumadin, DM type 2 and ESRD, Wet gangrene and flexor tenosynovitis left middle finger, dry gangrene of index and ring fingers, poor distal circulation on duplex with PVR left arm. POD#12 s/p Left middle finger irrigation and debridement of flexor tenosynovitis and revision amputation of index middle and ring fingers. on daptomycin and tygacil per ID the wound is clean . She has some bruising of the abdominal panus on the left where she has been getting heparin Alternate abdominal site for heparin injection Warm compresses for comfort continue IV antibiotics per ID adequate analgesia Will need discharge with VNS for daily dressing Wound measurement: left middle open MCP [id number], clean no purulent drainage Dressing instructions: open MCP, Xeroform, loose rolled gauze PT evaluation appreciated Can be discharged to appropriate facility Follow-up plan in discharge plan Code(s): I96 - GANGRENE, NOT ELSEWHERE CLASSIFIED (2) Flexor tenosynovitis of finger Code(s): M65.9 - SYNOVITIS AND TENOSYNOVITIS, UNSPECIFIED (3) Cellulitis and abscess of hand Code(s): L03.119 - CELLULITIS OF UNSPECIFIED PART OF LIMB; L02.519 - CUTANEOUS ABSCESS OF UNSPECIFIED HAND (4) Anemia in ESRD (end-stage renal disease) Code(s): N18.6 - END STAGE RENAL DISEASE; D63.1 - ANEMIA IN CHRONIC KIDNEY DISEASE (5) CAD (coronary artery disease) Code(s): I25.10 - ATHSCL HEART DISEASE OF [place] CORONARY ARTERY W/O ANG PCTRS Qualifiers: Coronary Disease-Associated Artery/Lesion type: [place] artery [place] vs. transplanted heart: [place] heart Associated angina: without angina Qualified Code(s): I25.10 - Atherosclerotic heart disease of [place] coronary artery without angina pectoris (6) DM type 2 causing complication Code(s): E11.8 - TYPE 2 DIABETES MELLITUS WITH UNSPECIFIED COMPLICATIONS (7) ESRD on hemodialysis Code(s): N18.6 - END STAGE RENAL DISEASE; Z99.2 - DEPENDENCE ON RENAL DIALYSIS (8) HTN (hypertension) Code(s): I10 - ESSENTIAL (PRIMARY) HYPERTENSION Qualifiers: Hypertension type: essential hypertension Qualified Code(s): I10 - Essential (primary) hypertension (9) Hypercholesterolemia Code(s): E78.00 - PURE HYPERCHOLESTEROLEMIA, UNSPECIFIED
[2017-11-12] MEDS ORDERED: SODIUM CHLORIDE 500 ML IV STA (20:46)
[2017-11-12 22:00] LABS: EOS % 1.2 % (0-4.5); HEMOGLOBIN 11.5 GM/dL (10.7-15.3); LYMPH % 19.4 % (8-40); MCH 30.3 pg (25.7-33.7); MEAN CELL VOLUME 97.5 fl (80-96); MEAN PLT VOLUME 8.7 fl (7.5-11.1); MONO % 8.7 % (3.8-10.2); NEUT % 69.7 % (42.8-82.8); PLATELET COUNT 341 K/MM3 (134-434); RBC 3.79 M/mm3 (3.60-5.2); RDW 18.3 % (11.6-15.6); WHITE BLOOD COUNT 7.9 K/mm3 (4.0-10.0)
[2017-11-12 22:25] LABS: ALBUMIN 1.7 g/dl (3.4-5.0); ALK PHOS 215 U/L (45-117); ANION GAP 11 (8-16); BILIRUBIN,TOTAL 0.3 mg/dL (0.2-1.0); BLOOD UREA NITROGEN 61 mg/dL (7-18); CHLORIDE 103 mmol/L (98-107); CO2 25 mmol/L (21-32); CREATININE 4.6 mg/dL (0.55-1.02); GLUCOSE,RANDOM 212 mg/dL (74-106); POTASSIUM 4.8 mmol/L (3.5-5.1); SGOT/AST 15 U/L (15-37); SGPT/ALT 19 U/L (12-78); SODIUM 139 mmol/L (136-145); TOT PROT 5.1 g/dl (6.4-8.2)
[2017-11-12 22:28] LABS: CALCIUM 6.7 mg/dL (8.5-10.1)
--- NOTE | 2017-11-12 22:35 | PN ---
Progress Note (short form) - Note Progress Note: 72 year old woman with PMhx of ESRD on HD, Hypertension, severe LV dysfunction/ICD CAD, s/p AR, s/p PCI/stenting DM on Insulin, PVD /hand abscess s/p I and D left abdominal wall cutaneous lesions r/o infectious etiol atrial fib. with controlled ventricular response. Active Medications Acetaminophen (Tylenol -) 650 mg PO Q4H PRN PRN Reason: BACK PAIN Last Admin: 11/12/17 15:26 Dose: 650 mg Amino Acids (Prosource No Carb Liquid Pkt) 30 ml PO BID@0800,1730 [facility] Last Admin: 11/12/17 08:25 Dose: 30 ml Aspirin (Asa -) 81 mg PO DAILY [facility] Last Admin: 11/12/17 08:59 Dose: 81 mg Calcium Acetate (Phoslo -) 667 mg PO DAILY [facility] Last Admin: 11/12/17 09:00 Dose: 667 mg Cyanocobalamin (Vitamin B12 -) 100 mcg PO DAILY [facility] Last Admin: 11/12/17 08:59 Dose: 100 mcg Diphenhydramine HCl (Benadryl -) 25 mg PO HS PRN PRN Reason: INSOMNIA Last Admin: 11/11/17 21:38 Dose: 25 mg Docusate Sodium (Colace -) 100 mg PO DAILY [facility] Last Admin: 11/12/17 08:59 Dose: 100 mg IV Flush (Kate-Cath Flush) 10 ml IVPUSH PRN PRN PRN Reason: Protocol Tigecycline 50 mg/ Dextrose 100 mls @ 100 mls/hr IVPB BID [facility] PRN Reason: Protocol Last Admin: 11/12/17 08:59 Dose: 100 mls/hr Daptomycin 500 mg/ Sodium (Chloride) 100 mls @ 200 mls/hr IVPB Q48H YOAN PRN Reason: Protocol Last Admin: 11/12/17 15:26 Dose: 200 mls/hr Insulin Aspart (Novolog Vial Sliding Scale -) 1 vial SQ TIDAC [facility] PRN Reason: Protocol Last Admin: 11/12/17 17:12 Dose: Not Given Insulin Detemir (Levemir Vial) 16 units SQ BID@0700,2200 [facility] Last Admin: 11/12/17 06:09 Dose: 16 units Lactobacillus Acidophilus (Bacid -) 1 tab PO DAILY [facility] Last Admin: 02/17/18 08:59 Dose: 1 tab Levothyroxine Sodium (Synthroid -) 125 mcg PO DAILY@0700 [facility] Last Admin: 11/12/17 06:09 Dose: 125 mcg Metoprolol Tartrate (Lopressor -) 12.5 mg PO DAILY [facility] Last Admin: 11/12/17 09:15 Dose: 12.5 mg Nitroglycerin (Nitrostat -) 0.4 mg SL DAILY PRN PRN Reason: FOR CHEST PAIN Nystatin (Nystop Powder -) 1 applic TP DAILY [facility] Ondansetron HCl (Zofran Injection) 4 mg IVPB Q6H PRN PRN Reason: NAUSEA Pantoprazole Sodium (Protonix -) 40 mg PO DAILY [facility] Last Admin: 11/12/17 09:04 Dose: 40 mg Polyethylene Glycol (Miralax (For Daily Use) -) 17 gm PO DAILY [facility] Last Admin: 11/12/17 09:00 Dose: Not Given Senna (Senna -) 1 tab PO HS [facility] Last Admin: 11/11/17 21:37 Dose: 1 tab Last Vital Signs Temp Pulse Resp BP Pulse Ox 98.2 F 83 20 97/35 100 11/12/17 18:00 11/12/17 22:00 11/12/17 22:00 11/12/17 22:00 11/12/17 21:00 lungs clear heart reg abd soft ext no edema IMP -esrd hand abscess clinically nontoxic Plan- hd on Tuesday
[2017-11-12] MEDS: NYSTATIN POWDER 100,000 UNITS/GM - 15 GM TOPICAL POWDER TP SCH (23:05)
[2017-11-12] MEDS: SENNOSIDES 8.6MG TABLET (FP) PO SCH (23:07)
[2017-11-12] MEDS: diphenhydrAMINE HCL 25 MG CAPSULE (FP) PO PRN (23:07)
[2017-11-13 06:43] LABS: BASO % 1.1 % (0-2.0); EOS % 1.7 % (0-4.5); HEMATOCRIT 37.1 % (32.4-45.2); HEMOGLOBIN 11.6 GM/dL (10.7-15.3); LYMPH % 29.6 % (8-40); MCH 30.3 pg (25.7-33.7); MCHC 31.3 g/dl (32.0-36.0); MEAN CELL VOLUME 96.8 fl (80-96); MEAN PLT VOLUME 8.5 fl (7.5-11.1); MONO % 11.4 % (3.8-10.2); NEUT % 56.2 % (42.8-82.8); PLATELET COUNT 345 K/MM3 (134-434); RBC 3.84 M/mm3 (3.60-5.2); RDW 18.5 % (11.6-15.6); WHITE BLOOD COUNT 6.8 K/mm3 (4.0-10.0)
[2017-11-13 06:50] LABS: INR 1.42 (0.82-1.09); PROTHROMBIN TIME (PATIENT) 16.1 SEC (9.98-11.88)
[2017-11-13 07:06] LABS: ALBUMIN 1.7 g/dl (3.4-5.0); ANION GAP 12 (8-16); BLOOD UREA NITROGEN 65 mg/dL (7-18); CALCIUM 7.3 mg/dL (8.5-10.1); CHLORIDE 101 mmol/L (98-107); CO2 28 mmol/L (21-32); GLUCOSE,RANDOM 55 mg/dL (74-106); SODIUM 141 mmol/L (136-145)
[2017-11-13 07:13] LABS: ALK PHOS 200 U/L (45-117); BILIRUBIN,TOTAL 0.4 mg/dL (0.2-1.0); CREATININE 4.8 mg/dL (0.55-1.02); SGOT/AST 16 U/L (15-37); SGPT/ALT 18 U/L (12-78); TOT PROT 5.1 g/dl (6.4-8.2)
[2017-11-13] MEDS: INSULIN SLIDING SCALE (NOVOLOG) 1 VIAL SQ SCH ×3 (07:41→16:47)
[2017-11-13] MEDS: INSULIN DETEMIR 100 UNITS/ML MDV SQ SCH ×2 (07:41→21:45)
[2017-11-13] MEDS: LEVOTHYROXINE NA 125 MCG TABLET (FP) PO SCH (07:42)
[2017-11-13] MEDS ORDERED: PT OWN MED DRAWER 7, Y5N ONE ×2 (09:49→21:38)
[2017-11-13] MEDS: CALCIUM ACETATE 667 MG CAPSULE (FP) PO SCH (09:54)
[2017-11-13] MEDS: ASPIRIN 81 MG CHEWABLE TABLETS PO SCH (09:54)
[2017-11-13] MEDS: LACTOBACILLUS ACIDOPHILUS 1 EACH TAB (FP) PO SCH (09:54)
[2017-11-13] MEDS: PANTOPRAZOLE 40 MG TABLET (FP) PO SCH (09:54)
[2017-11-13] MEDS: CYANOCOBALAMIN (VITAMIN B-12) 100 MCG TABLET PO SCH (09:54)
[2017-11-13] MEDS: AMINO ACIDS/PROTEIN HYDROLYS 30 ML LIQUID.PKT PO SCH ×2 (09:54→18:11)
[2017-11-13] MEDS: DOCUSATE SODIUM 100 MG CAPSULE (FP) PO SCH (09:54)
[2017-11-13] MEDS: METOPROLOL TARTRATE 25 MG TABLET (FP) PO SCH (09:55)
[2017-11-13] MEDS: NYSTATIN POWDER 100,000 UNITS/GM - 15 GM TOPICAL POWDER TP SCH (09:55)
[2017-11-13] MEDS: POLYETHYLENE GLYCOL 3350 119 GM BTL PO SCH (09:55)
[2017-11-13] MEDS: TIGECYCLINE 50 MG in DEXTROSE 5%-WATER - 100 ML IVPB SCH ×2 (09:56→21:47)
--- NOTE | 2017-11-13 10:46 | PN ---
Progress Note (short form) - Note Progress Note: pt seen/ examined . comfortable. no new issues. all f/u noted/ discussed with Dr. Swenson. Vital Signs Temp 98.4 F 11/13/17 09:00 Pulse 98 H 11/13/17 09:00 Resp 24 11/13/17 09:00 BP 110/97 11/13/17 09:00 Pulse Ox 96 11/13/17 09:00 Intake & Output 11/12/17 11/12/17 11/13/17 11:59 23:59 11:59 Intake Total 100 1780 Balance 100 1780 Intake: IV 500 Normal Saline - 500 ml @ 500 500 mls/hr IV ASDIR STA Rx#:[id number] IVPB 200 Oral 100 1080 Other: Voiding Method Diaper Diaper Diaper # Unmeasured Voids Void 2 Bowel Movement No Active Medications Acetaminophen (Tylenol -) 650 mg PO Q4H PRN PRN Reason: BACK PAIN Last Admin: 11/12/17 23:07 Dose: 650 mg Amino Acids (Prosource No Carb Liquid Pkt) 30 ml PO BID@0800,1730 [facility] Last Admin: 11/13/17 09:54 Dose: 30 ml Aspirin (Asa -) 81 mg PO DAILY [facility] Last Admin: 11/13/17 09:54 Dose: 81 mg Calcium Acetate (Phoslo -) 667 mg PO DAILY [facility] Last Admin: 11/13/17 09:54 Dose: 667 mg Cyanocobalamin (Vitamin B12 -) 100 mcg PO DAILY [facility] Last Admin: 11/13/17 09:54 Dose: 100 mcg Diphenhydramine HCl (Benadryl -) 25 mg PO HS PRN PRN Reason: INSOMNIA Last Admin: 11/12/17 23:07 Dose: 25 mg Docusate Sodium (Colace -) 100 mg PO DAILY [facility] Last Admin: 11/13/17 09:54 Dose: 100 mg IV Flush (Kate-Cath Flush) 10 ml IVPUSH PRN PRN PRN Reason: Protocol Tigecycline 50 mg/ Dextrose 100 mls @ 100 mls/hr IVPB BID YOAN PRN Reason: Protocol Last Admin: 11/13/17 09:56 Dose: 100 mls/hr Daptomycin 500 mg/ Sodium (Chloride) 100 mls @ 200 mls/hr IVPB Q48H YOAN PRN Reason: Protocol Last Admin: 11/12/17 15:26 Dose: 200 mls/hr Insulin Aspart (Novolog Vial Sliding Scale -) 1 vial SQ TIDAC [facility] PRN Reason: Protocol Last Admin: 11/13/17 07:41 Dose: Not Given Insulin Detemir (Levemir Vial) 16 units SQ BID@0700,2200 [facility] Last Admin: 11/13/17 07:41 Dose: Not Given Lactobacillus Acidophilus (Bacid -) 1 tab PO DAILY [facility] Last Admin: 11/13/17 09:54 Dose: 1 tab Levothyroxine Sodium (Synthroid -) 125 mcg PO DAILY@0700 [facility] Last Admin: 11/13/17 07:42 Dose: 125 mcg Metoprolol Tartrate (Lopressor -) 12.5 mg PO DAILY [facility] Last Admin: 11/13/17 09:55 Dose: 12.5 mg Nitroglycerin (Nitrostat -) 0.4 mg SL DAILY PRN PRN Reason: FOR CHEST PAIN Nystatin (Nystop Powder -) 1 applic TP DAILY [facility] Last Admin: 11/13/17 09:55 Dose: 1 applic Ondansetron HCl (Zofran Injection) 4 mg IVPB Q6H PRN PRN Reason: NAUSEA Pantoprazole Sodium (Protonix -) 40 mg PO DAILY [facility] Last Admin: 11/13/17 09:54 Dose: 40 mg Polyethylene Glycol (Miralax (For Daily Use) -) 17 gm PO DAILY [facility] Last Admin: 11/13/17 09:55 Dose: Not Given Senna (Senna -) 1 tab PO HS [facility] Last Admin: 11/12/17 23:07 Dose: Not Given CBC, BMP 11/13/17 05:15 11/13/17 05:15 INR, PTT INR 1.42 (0.82-1.09) H 11/13/17 05:15 Physical Exam. Constitutional: Yes: No Distress. comfortable. Cardiovascular: Yes: Regular Rate and Rhythm Respiratory: Yes: Diminished at bases. Gastrointestinal: Yes: Normal Bowel Sounds, Soft. + ve firm swelling - tender to touch - left side abdomen- consistent with infected hematoma Extremities: Yes: Amputation. dressing + Left Hand. Assessment/Plan stable warm pack to abdominal wall Abx per ID-- needs total 6 weeks-- Dapto +Tigecil-- needs picc line for antibiotics--will order when pt accepted to str facility continue other meds monitor bgm-- on Levemir monitor inr extra coumadin today dc planning-- in progress. will follow Problem List - Problems (1) Cellulitis and abscess of hand Code(s): L03.119 - CELLULITIS OF UNSPECIFIED PART OF LIMB; L02.519 - CUTANEOUS ABSCESS OF UNSPECIFIED HAND (2) Anemia in ESRD (end-stage renal disease) Code(s): N18.6 - END STAGE RENAL DISEASE; D63.1 - ANEMIA IN CHRONIC KIDNEY DISEASE (3) Atrial fibrillation Code(s): I48.91 - UNSPECIFIED ATRIAL FIBRILLATION Qualifiers: Atrial fibrillation type: unspecified Qualified Code(s): I48.91 - Unspecified atrial fibrillation (4) CAD (coronary artery disease) Code(s): I25.10 - ATHSCL HEART DISEASE OF [place] CORONARY ARTERY W/O ANG PCTRS Qualifiers: Coronary Disease-Associated Artery/Lesion type: [place] artery [place] vs. transplanted heart: [place] heart Associated angina: without angina Qualified Code(s): I25.10 - Atherosclerotic heart disease of [place] coronary artery without angina pectoris (5) ESRD (end stage renal disease) on dialysis Code(s): N18.6 - END STAGE RENAL DISEASE; Z99.2 - DEPENDENCE ON RENAL DIALYSIS (6) HTN (hypertension) Code(s): I10 - ESSENTIAL (PRIMARY) HYPERTENSION Qualifiers: Hypertension type: essential hypertension Qualified Code(s): I10 - Essential (primary) hypertension (7) History of percutaneous coronary intervention Code(s): Z98.890 - OTHER SPECIFIED POSTPROCEDURAL STATES (8) Status post transmetatarsal amputation of left foot Code(s): Z89.432 - ACQUIRED ABSENCE OF LEFT FOOT (9) Unilateral AKA Code(s): Z89.619 - ACQUIRED ABSENCE OF UNSPECIFIED LEG ABOVE KNEE
--- NOTE | 2017-11-13 13:19 | PN ---
Progress Note, Physician Chief Complaint: left hand wet and dry gangrene History of Present Illness: 72 yo female PMH HTN, DM, HLD, PAD, CHF, A-fib, defibrillator placement,pvd, ESRD (Dialysis on M,W,F- left chest tunnel catheter ), Right AKA amputation, Left foot amputation, and Left hand 2nd-4th digit partial amputation (02/2017) who presents with left hand pain. found to have flexor tenosynovitis and a combination of wet and dry gangrene. Reports some abdominal pain. - Current Medication List Current Medications: Active Medications Acetaminophen (Tylenol -) 650 mg PO Q4H PRN PRN Reason: BACK PAIN Last Admin: 11/12/17 23:07 Dose: 650 mg Amino Acids (Prosource No Carb Liquid Pkt) 30 ml PO BID@0800,1730 [facility] Last Admin: 11/13/17 09:54 Dose: 30 ml Aspirin (Asa -) 81 mg PO DAILY [facility] Last Admin: 11/13/17 09:54 Dose: 81 mg Calcium Acetate (Phoslo -) 667 mg PO DAILY [facility] Last Admin: 11/13/17 09:54 Dose: 667 mg Clotrimazole (Lotrimin 1% Cream -) 1 applic TP BID [facility] Cyanocobalamin (Vitamin B12 -) 100 mcg PO DAILY [facility] Last Admin: 11/13/17 09:54 Dose: 100 mcg Diphenhydramine HCl (Benadryl -) 25 mg PO HS PRN PRN Reason: INSOMNIA Last Admin: 11/12/17 23:07 Dose: 25 mg Docusate Sodium (Colace -) 100 mg PO DAILY [facility] Last Admin: 11/13/17 09:54 Dose: 100 mg IV Flush (Kate-Cath Flush) 10 ml IVPUSH PRN PRN PRN Reason: Protocol Tigecycline 50 mg/ Dextrose 100 mls @ 100 mls/hr IVPB BID YOAN PRN Reason: Protocol Last Admin: 11/13/17 09:56 Dose: 100 mls/hr Daptomycin 500 mg/ Sodium (Chloride) 100 mls @ 200 mls/hr IVPB Q48H [facility]OAN PRN Reason: Protocol Last Admin: 11/12/17 15:26 Dose: 200 mls/hr Insulin Aspart (Novolog Vial Sliding Scale -) 1 vial SQ TIDAC [facility] PRN Reason: Protocol Last Admin: 11/13/17 12:15 Dose: 3 units Insulin Detemir (Levemir Vial) 16 units SQ BID@0700,2200 [facility] Last Admin: 11/13/17 07:41 Dose: Not Given Lactobacillus Acidophilus (Bacid -) 1 tab PO DAILY [facility] Last Admin: 11/13/17 09:54 Dose: 1 tab Levothyroxine Sodium (Synthroid -) 125 mcg PO DAILY@0700 [facility] Last Admin: 11/13/17 07:42 Dose: 125 mcg Metoprolol Tartrate (Lopressor -) 12.5 mg PO DAILY [facility] Last Admin: 11/13/17 09:55 Dose: 12.5 mg Nitroglycerin (Nitrostat -) 0.4 mg SL DAILY PRN PRN Reason: FOR CHEST PAIN Nystatin (Nystop Powder -) 1 applic TP DAILY [facility] Last Admin: 11/13/17 09:55 Dose: 1 applic Ondansetron HCl (Zofran Injection) 4 mg IVPB Q6H PRN PRN Reason: NAUSEA Pantoprazole Sodium (Protonix -) 40 mg PO DAILY [facility] Last Admin: 11/13/17 09:54 Dose: 40 mg Polyethylene Glycol (Miralax (For Daily Use) -) 17 gm PO DAILY [facility] Last Admin: 11/13/17 09:55 Dose: Not Given Senna (Senna -) 1 tab PO HS [facility] Last Admin: 11/12/17 23:07 Dose: Not Given Warfarin Sodium (Coumadin -) 1 mg PO ONCE@1800 ONE Stop: 11/13/17 18:01 - Objective Vital Signs: Vital Signs Temperature 98.4 F 11/13/17 09:00 Pulse Rate 98 H 11/13/17 09:00 Respiratory Rate 24 11/13/17 09:00 Blood Pressure 110/97 11/13/17 09:00 O2 Sat by Pulse Oximetry (%) 96 11/13/17 09:00 Vital Signs Period Temp Pulse Resp BP Sys/Cordero Pulse Ox Last 24 Hr 98.2 F-98.4 F 72-98 18-24 74-115/32-97 96-100 Intake & Output 11/12/17 11/13/17 11/13/17 23:59 07:59 15:59 Intake Total 1200 Balance 1200 Intake: IV 500 Normal Saline - 500 ml @ 500 500 mls/hr IV ASDIR STA Rx#:[id number] IVPB 100 Oral 600 Other: Voiding Method Diaper Diaper # Unmeasured Voids Void 2 Bowel Movement No Constitutional: Yes: Well Nourished, No Distress, Calm Eyes: Yes: Conjunctiva Clear, EOM Intact HENT: Yes: Atraumatic, Normocephalic Neck: Yes: Supple, Trachea Midline Cardiovascular: Yes: Regular Rate and Rhythm, S1, S2 Respiratory: Yes: Regular, CTA Bilaterally Gastrointestinal: Yes: Normal Bowel Sounds, Soft, Tenderness (left abdominal wall, bruising) ...Rectal Exam: Yes: Deferred Genitourinary: No: CVA Tenderness - Left, CVA Tenderness - Right Extremities: No: Cool, Cyanosis Wound/Incision: Yes: Unapproximated (left 3rd MCP) Neurological: No: Alert, Oriented Psychiatric: No: Alert, Oriented Labs: CBC, BMP 18 05:15 11/13/17 05:15 INR, PTT INR 1.42 (0.82-1.09) H 18 05:15 Problem List - Problems (1) Gangrene of hand Assessment/Plan: 72 yo female MMP including Afib on coumadin, DM type 2 and ESRD, Wet gangrene and flexor tenosynovitis left middle finger, dry gangrene of index and ring fingers, poor distal circulation on duplex with PVR left arm. POD#13 s/p Left middle finger irrigation and debridement of flexor tenosynovitis and revision amputation of index middle and ring fingers. on daptomycin and tygacil per ID the wound is clean . She has some bruising of the abdominal panus on the left where she has been getting heparin Alternate abdominal site for heparin injection Warm compresses for comfort continue IV antibiotics per ID adequate analgesia Will need discharge with VNS for daily dressing Wound measurement: left middle open MCP [id number], clean no purulent drainage Dressing instructions: open MCP, Xeroform, loose rolled gauze PT evaluation appreciated Can be discharged to appropriate facility Follow-up plan in discharge plan Code(s): I96 - GANGRENE, NOT ELSEWHERE CLASSIFIED (2) Flexor tenosynovitis of finger Code(s): M65.9 - SYNOVITIS AND TENOSYNOVITIS, UNSPECIFIED (3) Cellulitis and abscess of hand Code(s): L03.119 - CELLULITIS OF UNSPECIFIED PART OF LIMB; L02.519 - CUTANEOUS ABSCESS OF UNSPECIFIED HAND (4) Anemia in ESRD (end-stage renal disease) Code(s): N18.6 - END STAGE RENAL DISEASE; D63.1 - ANEMIA IN CHRONIC KIDNEY DISEASE (5) CAD (coronary artery disease) Code(s): I25.10 - ATHSCL HEART DISEASE OF [place] CORONARY ARTERY W/O ANG PCTRS Qualifiers: Coronary Disease-Associated Artery/Lesion type: [place] artery [place] vs. transplanted heart: [place] heart Associated angina: without angina Qualified Code(s): I25.10 - Atherosclerotic heart disease of [place] coronary artery without angina pectoris (6) DM type 2 causing complication Code(s): E11.8 - TYPE 2 DIABETES MELLITUS WITH UNSPECIFIED COMPLICATIONS (7) ESRD on hemodialysis Code(s): N18.6 - END STAGE RENAL DISEASE; Z99.2 - DEPENDENCE ON RENAL DIALYSIS (8) HTN (hypertension) Code(s): I10 - ESSENTIAL (PRIMARY) HYPERTENSION Qualifiers: Hypertension type: essential hypertension Qualified Code(s): I10 - Essential (primary) hypertension (9) Hypercholesterolemia Code(s): E78.00 - PURE HYPERCHOLESTEROLEMIA, UNSPECIFIED
--- NOTE | 2017-11-13 13:40 | PN ---
Progress Note (short form) - Note Progress Note: CCU. 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 Patient denies having chest pain or discomfort, no SOB reported. C/o left sided abdominal tenderness and pain persists.Hemodynamics are stable. Active Medications Generic Name Dose Route Start Last Admin Trade Name Freq PRN Reason Stop Dose Admin Acetaminophen 650 mg 10/31/17 16:05 11/12/17 23:07 Tylenol - PO 650 mg Q4H PRN Administration BACK PAIN Amino Acids 30 ml 11/09/17 17:30 11/13/17 09:54 Prosource No Carb Liquid Pkt PO 30 ml BID@0800,1730 YOAN Administration Aspirin 81 mg 11/01/17 10:00 11/13/17 09:54 Asa - PO 81 mg DAILY YOAN Administration Calcium Acetate 667 mg 11/01/17 10:00 11/13/17 09:54 Phoslo - PO 667 mg DAILY YOAN Administration Clotrimazole 1 applic 11/13/17 11:00 Lotrimin 1% Cream - TP BID YOAN Cyanocobalamin 100 mcg 11/01/17 10:00 11/13/17 09:54 Vitamin B12 - PO 100 mcg DAILY YOAN Administration Diphenhydramine HCl 25 mg 11/09/17 11:07 11/12/17 23:07 Benadryl - PO 25 mg HS PRN Administration INSOMNIA Docusate Sodium 100 mg 11/01/17 10:00 11/13/17 09:54 Colace - PO 100 mg DAILY YOAN Administration IV Flush 10 ml 11/08/17 11:34 Kate-Cath Flush IVPUSH PRN PRN Protocol Tigecycline 50 mg/ Dextrose 100 mls @ 100 mls/hr 11/04/17 22:00 11/13/17 09: 56 IVPB 100 mls/hr BID YOAN Administration Protocol Daptomycin 500 mg/ Sodium 100 mls @ 200 mls/hr 11/04/17 16:00 11/12/17 15:26 Chloride IVPB 200 mls/hr Q48H YOAN Administration Protocol Insulin Aspart 1 vial 11/03/17 16:30 11/13/17 12:15 Novolog Vial Sliding Scale - SQ 3 units TIDAC [facility] Administration Protocol Insulin Detemir 16 units 11/02/17 12:17 11/13/17 07:41 Levemir Vial SQ Not Given BID@0700,2200 [facility] Lactobacillus Acidophilus 1 tab 11/01/17 10:00 11/13/17 09:54 Bacid - PO 1 tab DAILY YOAN Administration Levothyroxine Sodium 125 mcg 11/01/17 07:00 11/13/17 07:42 Synthroid - PO 125 mcg DAILY@0700 YOAN Administration Metoprolol Tartrate 12.5 mg 11/01/17 10:00 11/13/17 09:55 Lopressor - PO 12.5 mg DAILY YOAN Administration Nitroglycerin 0.4 mg 10/31/17 16:05 Nitrostat - SL DAILY PRN FOR CHEST PAIN Nystatin 1 applic 11/12/17 20:45 11/13/17 09:55 Nystop Powder - TP 1 applic DAILY [facility] Administration Ondansetron HCl 4 mg 11/04/17 09:31 Zofran Injection IVPB Q6H PRN NAUSEA Pantoprazole Sodium 40 mg 11/01/17 10:00 11/13/17 09:54 Protonix - PO 40 mg DAILY [facility] Administration Polyethylene Glycol 17 gm 11/01/17 10:00 11/13/17 09:55 Miralax (For Daily Use) - PO Not Given DAILY YOAN Senna 1 tab 10/31/17 22:00 11/12/17 23:07 Senna - PO Not Given HS [facility] Warfarin Sodium 1 mg 11/13/17 18:00 Coumadin - PO 11/13/17 18:01 ONCE@1800 ONE 72 year old female in no distress, no pallor, clubbing, cyanosis or jaundice. Last Vital Signs Temp Pulse Resp BP Pulse Ox 98.4 F 98 H,irregular. 24 110/97 96 11/13/17 09:00 11/13/17 09:00 11/13/17 09:00 11/13/17 09:00 11/13/17 09:00 NECK: Supple, no JVD, carotids 1-2+, no bruits heards. anterior surgical scar. HEART: PMI in the 5th ICS, LINDA I/ 2nd right ICS. no gallops heard. LUNGS; Clear on auscultation. ABDOMEN: Soft, firm and tender lesions involving the left abdominal wall, no organomegaly. EXTREMITIES: Rt. AKA, left partial amputation of the foot. partial amputation of the left index and ring finger, total amputation of the middle finger. CBC, BMP 11/13/17 05:15 11/13/17 05:15 IMPRESSION: 1. CAD s/p PR, s/p PCI/stenting. 2. Firm and tender lesion involving the left abdominal wall, consider infected injection site or infected hematoma. 3. Hypothyroidism, on replacement therapy. 4. Diabetes mellitus with multisystem involvement 5. Permanent atrial fib. with controlled ventricular response. 6. Hypertension. 7. Severe LV systolic dysfunction. 8. ICD. Recommendations: 1. Evaluation of abdominal lesion. 2. Continue current therapy.
[2017-11-13] MEDS: CLOTRIMAZOLE 1% CREAM 15 GM TUBE TP SCH ×2 (14:35→21:47)
[2017-11-13] MEDS: ACETAMINOPHEN 325 MG TABLET (FP) PO PRN ×2 (14:35→21:47)
[2017-11-13] MEDS ORDERED: WARFARIN NA 1 MG TABLET (FP) PO ONE (18:00)
--- NOTE | 2017-11-13 18:10 | PN ---
Progress Note (short form) - Note Progress Note: 72 year old woman with PMhx of ESRD on HD, Hypertension, severe LV dysfunction/ICD CAD, s/p [place], s/p PCI/stenting DM on Insulin, PVD /hand abscess s/p I and D left abdominal wall cutaneous lesions r/o infectious etiol atrial fib. with controlled ventricular response. Current Medications Acetaminophen (Tylenol -) 650 mg PO Q4H PRN PRN Reason: BACK PAIN Last Admin: 11/13/17 14:35 Dose: 650 mg Amino Acids (Prosource No Carb Liquid Pkt) 30 ml PO BID@0800,1730 [facility] Last Admin: 11/13/17 09:54 Dose: 30 ml Aspirin (Asa -) 81 mg PO DAILY [facility] Last Admin: 11/13/17 09:54 Dose: 81 mg Calcium Acetate (Phoslo -) 667 mg PO DAILY [facility] Last Admin: 11/13/17 09:54 Dose: 667 mg Clotrimazole (Lotrimin 1% Cream -) 1 applic TP BID [facility] Last Admin: 11/13/17 14:35 Dose: 1 applic Cyanocobalamin (Vitamin B12 -) 100 mcg PO DAILY [facility] Last Admin: 11/13/17 09:54 Dose: 100 mcg Diphenhydramine HCl (Benadryl -) 25 mg PO HS PRN PRN Reason: INSOMNIA Last Admin: 11/12/17 23:07 Dose: 25 mg Docusate Sodium (Colace -) 100 mg PO DAILY [facility] Last Admin: 11/13/17 09:54 Dose: 100 mg IV Flush (Kate-Cath Flush) 10 ml IVPUSH PRN PRN PRN Reason: Protocol Tigecycline 50 mg/ Dextrose 100 mls @ 100 mls/hr IVPB BID YOAN PRN Reason: Protocol Last Admin: 11/13/17 09:56 Dose: 100 mls/hr Daptomycin 500 mg/ Sodium (Chloride) 100 mls @ 200 mls/hr IVPB Q48H YOAN PRN Reason: Protocol Last Admin: 11/12/17 15:26 Dose: 200 mls/hr Insulin Aspart (Novolog Vial Sliding Scale -) 1 vial SQ TIDAC YOAN PRN Reason: Protocol Last Admin: 11/13/17 16:47 Dose: Not Given Insulin Detemir (Levemir Vial) 16 units SQ BID@0700,2200 [facility] Last Admin: 11/13/17 07:41 Dose: Not Given Lactobacillus Acidophilus (Bacid -) 1 tab PO DAILY [facility] Last Admin: 11/13/17 09:54 Dose: 1 tab Levothyroxine Sodium (Synthroid -) 125 mcg PO DAILY@0700 [facility] Last Admin: 11/13/17 07:42 Dose: 125 mcg Metoprolol Tartrate (Lopressor -) 12.5 mg PO DAILY [facility] Last Admin: 11/13/17 09:55 Dose: 12.5 mg Nitroglycerin (Nitrostat -) 0.4 mg SL DAILY PRN PRN Reason: FOR CHEST PAIN Nystatin (Nystop Powder -) 1 applic TP DAILY [facility] Last Admin: 11/13/17 09:55 Dose: 1 applic Ondansetron HCl (Zofran Injection) 4 mg IVPB Q6H PRN PRN Reason: NAUSEA Pantoprazole Sodium (Protonix -) 40 mg PO DAILY [facility] Last Admin: 11/13/17 09:54 Dose: 40 mg Polyethylene Glycol (Miralax (For Daily Use) -) 17 gm PO DAILY [facility] Last Admin: 11/13/17 09:55 Dose: Not Given Senna (Senna -) 1 tab PO HS [facility] Last Admin: 11/12/17 23:07 Dose: Not Given Last Vital Signs Temp Pulse Resp BP Pulse Ox 98.4 F 98 H 24 110/97 96 11/13/17 09:00 11/13/17 09:00 11/13/17 09:00 11/13/17 09:00 11/13/17 09:00 lungs clear heart reg abd soft ext no edema IMP -esrd hand abscess clinically nontoxic Plan- hd tomorrow
[2017-11-13] MEDS: SENNOSIDES 8.6MG TABLET (FP) PO SCH (21:33)
[2017-11-13] MEDS: diphenhydrAMINE HCL 25 MG CAPSULE (FP) PO PRN (21:48)
[2017-11-14] MEDS: INSULIN SLIDING SCALE (NOVOLOG) 1 VIAL SQ SCH ×3 (06:52→16:21)
[2017-11-14] MEDS: LEVOTHYROXINE NA 125 MCG TABLET (FP) PO SCH (06:53)
[2017-11-14] MEDS: INSULIN DETEMIR 100 UNITS/ML MDV SQ SCH ×2 (06:54→21:43)
[2017-11-14 07:10] LABS: INR 1.32 (0.82-1.09); PROTHROMBIN TIME (PATIENT) 14.9 SEC (9.98-11.88)
--- NOTE | 2017-11-14 09:19 | PN ---
Progress Note, Physician Chief Complaint: left hand wet and dry gangrene History of Present Illness: 72 yo female PMH HTN, DM, HLD, PAD, CHF, A-fib, defibrillator placement,pvd, ESRD (Dialysis on M,W,F- left chest tunnel catheter ), Right AKA amputation, Left foot amputation, and Left hand 2nd-4th digit partial amputation (02/2017) who presents with left hand pain. found to have flexor tenosynovitis and a combination of wet and dry gangrene. Reports some abdominal pain. - Current Medication List Current Medications: Active Medications Acetaminophen (Tylenol -) 650 mg PO Q4H PRN PRN Reason: BACK PAIN Last Admin: 11/13/17 21:47 Dose: 650 mg Amino Acids (Prosource No Carb Liquid Pkt) 30 ml PO BID@0800,1730 [facility] Last Admin: 11/13/17 18:11 Dose: 30 ml Aspirin (Asa -) 81 mg PO DAILY [facility] Last Admin: 11/13/17 09:54 Dose: 81 mg Calcium Acetate (Phoslo -) 667 mg PO DAILY [facility] Last Admin: 11/13/17 09:54 Dose: 667 mg Clotrimazole (Lotrimin 1% Cream -) 1 applic TP BID [facility] Last Admin: 11/13/17 21:47 Dose: 1 applic Cyanocobalamin (Vitamin B12 -) 100 mcg PO DAILY [facility] Last Admin: 11/13/17 09:54 Dose: 100 mcg Diphenhydramine HCl (Benadryl -) 25 mg PO HS PRN PRN Reason: INSOMNIA Last Admin: 11/13/17 21:48 Dose: 25 mg Docusate Sodium (Colace -) 100 mg PO DAILY [facility] Last Admin: 11/13/17 09:54 Dose: 100 mg IV Flush (Kate-Cath Flush) 10 ml IVPUSH PRN PRN PRN Reason: Protocol Tigecycline 50 mg/ Dextrose 100 mls @ 100 mls/hr IVPB BID YOAN PRN Reason: Protocol Last Admin: 11/13/17 21:47 Dose: 100 mls/hr Daptomycin 500 mg/ Sodium (Chloride) 100 mls @ 200 mls/hr IVPB Q48H YOAN PRN Reason: Protocol Last Admin: 11/12/17 15:26 Dose: 200 mls/hr Insulin Aspart (Novolog Vial Sliding Scale -) 1 vial SQ TIDAC [facility] PRN Reason: Protocol Last Admin: 11/14/17 06:52 Dose: Not Given Insulin Detemir (Levemir Vial) 16 units SQ BID@0700,2200 [facility] Last Admin: 11/14/17 06:54 Dose: 16 units Lactobacillus Acidophilus (Bacid -) 1 tab PO DAILY [facility] Last Admin: 11/13/17 09:54 Dose: 1 tab Levothyroxine Sodium (Synthroid -) 125 mcg PO DAILY@0700 [facility] Last Admin: 11/14/17 06:53 Dose: 125 mcg Metoprolol Tartrate (Lopressor -) 12.5 mg PO DAILY [facility] Last Admin: 11/13/17 09:55 Dose: 12.5 mg Nitroglycerin (Nitrostat -) 0.4 mg SL DAILY PRN PRN Reason: FOR CHEST PAIN Nystatin (Nystop Powder -) 1 applic TP DAILY [facility] Last Admin: 11/13/17 09:55 Dose: 1 applic Ondansetron HCl (Zofran Injection) 4 mg IVPB Q6H PRN PRN Reason: NAUSEA Pantoprazole Sodium (Protonix -) 40 mg PO DAILY [facility] Last Admin: 11/13/17 09:54 Dose: 40 mg Polyethylene Glycol (Miralax (For Daily Use) -) 17 gm PO DAILY [facility] Last Admin: 11/13/17 09:55 Dose: Not Given Senna (Senna -) 1 tab PO HS [facility] Last Admin: 11/13/17 21:33 Dose: Not Given - Objective Vital Signs: Vital Signs Temperature 98 F 11/14/17 01:00 Pulse Rate 97 H 11/14/17 09:00 Respiratory Rate 18 11/14/17 09:00 Blood Pressure 128/52 11/14/17 09:00 O2 Sat by Pulse Oximetry (%) 94 L 11/13/17 21:00 Constitutional: Yes: Well Nourished, No Distress, Calm Eyes: Yes: Conjunctiva Clear, EOM Intact HENT: Yes: Atraumatic, Normocephalic Neck: Yes: Supple, Trachea Midline Cardiovascular: Yes: Regular Rate and Rhythm, S1, S2. No: Murmur Respiratory: Yes: Regular, CTA Bilaterally Gastrointestinal: Yes: Normal Bowel Sounds, Soft. No: Tenderness ...Rectal Exam: Yes: Deferred Genitourinary: No: CVA Tenderness - Left, CVA Tenderness - Right Extremities: No: Cool, Cyanosis Neurological: Yes: Alert, Oriented Psychiatric: Yes: Alert, Oriented Labs: CBC, BMP 11/13/17 05:15 11/13/17 05:15 INR, PTT INR 1.32 (0.82-1.09) H 11/14/17 05:35 Problem List - Problems (1) Gangrene of hand Assessment/Plan: 72 yo female MMP including Afib on coumadin, DM type 2 and ESRD, Wet gangrene and flexor tenosynovitis left middle finger, dry gangrene of index and ring fingers, poor distal circulation on duplex with PVR left arm. POD#15 s/p Left middle finger irrigation and debridement of flexor tenosynovitis and revision amputation of index middle and ring fingers. on daptomycin and tygacil per ID the wound is clean . She has some bruising of the abdominal panus on the left where she has been getting heparin Alternate abdominal site for heparin injection Warm compresses for comfort continue IV antibiotics per ID adequate analgesia Will need discharge with VNS for daily dressing Wound measurement: left middle open MCP [id number], clean no purulent drainage Dressing instructions: open MCP, Xeroform, loose rolled gauze PT evaluation appreciated Can be discharged to appropriate facility Follow-up plan in discharge plan Code(s): I96 - GANGRENE, NOT ELSEWHERE CLASSIFIED (2) Flexor tenosynovitis of finger Code(s): M65.9 - SYNOVITIS AND TENOSYNOVITIS, UNSPECIFIED (3) Cellulitis and abscess of hand Code(s): L03.119 - CELLULITIS OF UNSPECIFIED PART OF LIMB; L02.519 - CUTANEOUS ABSCESS OF UNSPECIFIED HAND (4) Anemia in ESRD (end-stage renal disease) Code(s): N18.6 - END STAGE RENAL DISEASE; D63.1 - ANEMIA IN CHRONIC KIDNEY DISEASE (5) CAD (coronary artery disease) Code(s): I25.10 - ATHSCL HEART DISEASE OF [place] CORONARY ARTERY W/O ANG PCTRS Qualifiers: Coronary Disease-Associated Artery/Lesion type: [place] artery [place] vs. transplanted heart: [place] heart Associated angina: without angina Qualified Code(s): I25.10 - Atherosclerotic heart disease of [place] coronary artery without angina pectoris (6) DM type 2 causing complication Code(s): E11.8 - TYPE 2 DIABETES MELLITUS WITH UNSPECIFIED COMPLICATIONS (7) ESRD on hemodialysis Code(s): N18.6 - END STAGE RENAL DISEASE; Z99.2 - DEPENDENCE ON RENAL DIALYSIS (8) HTN (hypertension) Code(s): I10 - ESSENTIAL (PRIMARY) HYPERTENSION Qualifiers: Hypertension type: essential hypertension Qualified Code(s): I10 - Essential (primary) hypertension (9) Hypercholesterolemia Code(s): E78.00 - PURE HYPERCHOLESTEROLEMIA, UNSPECIFIED
--- NOTE | 2017-11-14 09:27 | PN ---
Progress Note (short form) - Note Progress Note: pt seen/ examined . comfortable. no new issues. decreased abdominal swelling / pain . currently being dialized pt reports slept well. Vital Signs Temp 98 F 11/14/17 01:00 Pulse 97 H 11/14/17 09:00 Resp 18 11/14/17 09:00 BP 128/52 11/14/17 09:00 Pulse Ox 94 L 11/13/17 21:00 Intake & Output 11/13/17 11/13/17 11/14/17 11:59 23:59 11:59 Intake Total 500 50 Balance 500 50 Intake: IV 50 IVSL #2 50 IVPB 100 Oral 400 Other: Voiding Method Diaper Diaper # Unmeasured Voids Void 3 Bowel Movement Yes Active Medications Acetaminophen (Tylenol -) 650 mg PO Q4H PRN PRN Reason: BACK PAIN Last Admin: 11/13/17 21:47 Dose: 650 mg Amino Acids (Prosource No Carb Liquid Pkt) 30 ml PO BID@0800,1730 [facility] Last Admin: 11/13/17 18:11 Dose: 30 ml Aspirin (Asa -) 81 mg PO DAILY [facility] Last Admin: 11/13/17 09:54 Dose: 81 mg Calcium Acetate (Phoslo -) 667 mg PO DAILY [facility] Last Admin: 11/13/17 09:54 Dose: 667 mg Clotrimazole (Lotrimin 1% Cream -) 1 applic TP BID [facility] Last Admin: 11/13/17 21:47 Dose: 1 applic Cyanocobalamin (Vitamin B12 -) 100 mcg PO DAILY [facility] Last Admin: 11/13/17 09:54 Dose: 100 mcg Diphenhydramine HCl (Benadryl -) 25 mg PO HS PRN PRN Reason: INSOMNIA Last Admin: 11/13/17 21:48 Dose: 25 mg Docusate Sodium (Colace -) 100 mg PO DAILY [facility] Last Admin: 11/13/17 09:54 Dose: 100 mg IV Flush (Kate-Cath Flush) 10 ml IVPUSH PRN PRN PRN Reason: Protocol Tigecycline 50 mg/ Dextrose 100 mls @ 100 mls/hr IVPB BID YOAN PRN Reason: Protocol Last Admin: 11/13/17 21:47 Dose: 100 mls/hr Daptomycin 500 mg/ Sodium (Chloride) 100 mls @ 200 mls/hr IVPB Q48H [facility] PRN Reason: Protocol Last Admin: 11/12/17 15:26 Dose: 200 mls/hr Insulin Aspart (Novolog Vial Sliding Scale -) 1 vial SQ TIDAC [facility] PRN Reason: Protocol Last Admin: 11/14/17 06:52 Dose: Not Given Insulin Detemir (Levemir Vial) 16 units SQ BID@0700,2200 [facility] Last Admin: 11/14/17 06:54 Dose: 16 units Lactobacillus Acidophilus (Bacid -) 1 tab PO DAILY [facility] Last Admin: 11/13/17 09:54 Dose: 1 tab Levothyroxine Sodium (Synthroid -) 125 mcg PO DAILY@0700 [facility] Last Admin: 11/14/17 06:53 Dose: 125 mcg Metoprolol Tartrate (Lopressor -) 12.5 mg PO DAILY [facility] Last Admin: 11/13/17 09:55 Dose: 12.5 mg Nitroglycerin (Nitrostat -) 0.4 mg SL DAILY PRN PRN Reason: FOR CHEST PAIN Nystatin (Nystop Powder -) 1 applic TP DAILY [facility] Last Admin: 11/13/17 09:55 Dose: 1 applic Ondansetron HCl (Zofran Injection) 4 mg IVPB Q6H PRN PRN Reason: NAUSEA Pantoprazole Sodium (Protonix -) 40 mg PO DAILY [facility] Last Admin: 11/13/17 09:54 Dose: 40 mg Polyethylene Glycol (Miralax (For Daily Use) -) 17 gm PO DAILY [facility] Last Admin: 11/13/17 09:55 Dose: Not Given Senna (Senna -) 1 tab PO HS [facility] Last Admin: 11/13/17 21:33 Dose: Not Given Warfarin Sodium (Coumadin -) 3 mg PO DAILY@1800 [facility] CBC, BMP 11/13/17 05:15 11/13/17 05:15 Physical Exam. Constitutional: Yes: No Distress. comfortable. Cardiovascular: Yes: Regular Rate and Rhythm Respiratory: Yes: Diminished at bases. Gastrointestinal: Yes: Normal Bowel Sounds, Soft. + ve firm swelling - tender to touch - left side abdomen- consistent with infected hematoma-- decreased Extremities: Yes: Amputation. dressing + Left Hand. Assessment/Plan stable warm pack to abdominal wall- better Abx per ID-- needs total 6 weeks-- Dapto +Tigecil-- needs picc line for antibiotics--will order when pt accepted to str facility continue other meds monitor bgm-- on Levemir monitor inr coumdin per inr level dc planning-- in progress. will follow Problem List - Problems (1) Cellulitis and abscess of hand Code(s): L03.119 - CELLULITIS OF UNSPECIFIED PART OF LIMB; L02.519 - CUTANEOUS ABSCESS OF UNSPECIFIED HAND (2) Anemia in ESRD (end-stage renal disease) Code(s): N18.6 - END STAGE RENAL DISEASE; D63.1 - ANEMIA IN CHRONIC KIDNEY DISEASE (3) Atrial fibrillation Code(s): I48.91 - UNSPECIFIED ATRIAL FIBRILLATION Qualifiers: Atrial fibrillation type: unspecified Qualified Code(s): I48.91 - Unspecified atrial fibrillation (4) CAD (coronary artery disease) Code(s): I25.10 - ATHSCL HEART DISEASE OF [place] CORONARY ARTERY W/O ANG PCTRS Qualifiers: Coronary Disease-Associated Artery/Lesion type: [place] artery [place] vs. transplanted heart: [place] heart Associated angina: without angina Qualified Code(s): I25.10 - Atherosclerotic heart disease of [place] coronary artery without angina pectoris (5) ESRD (end stage renal disease) on dialysis Code(s): N18.6 - END STAGE RENAL DISEASE; Z99.2 - DEPENDENCE ON RENAL DIALYSIS (6) HTN (hypertension) Code(s): I10 - ESSENTIAL (PRIMARY) HYPERTENSION Qualifiers: Hypertension type: essential hypertension Qualified Code(s): I10 - Essential (primary) hypertension (7) History of percutaneous coronary intervention Code(s): Z98.890 - OTHER SPECIFIED POSTPROCEDURAL STATES (8) Status post transmetatarsal amputation of left foot Code(s): Z89.432 - ACQUIRED ABSENCE OF LEFT FOOT (9) Unilateral AKA Code(s): Z89.619 - ACQUIRED ABSENCE OF UNSPECIFIED LEG ABOVE KNEE
[2017-11-14] MEDS: AMINO ACIDS/PROTEIN HYDROLYS 30 ML LIQUID.PKT PO SCH ×2 (10:25→17:38)
[2017-11-14] MEDS: ASPIRIN 81 MG CHEWABLE TABLETS PO SCH (10:25)
[2017-11-14] MEDS: METOPROLOL TARTRATE 25 MG TABLET (FP) PO SCH (10:25)
[2017-11-14] MEDS: LACTOBACILLUS ACIDOPHILUS 1 EACH TAB (FP) PO SCH ×2 (10:25→21:53)
[2017-11-14] MEDS: DOCUSATE SODIUM 100 MG CAPSULE (FP) PO SCH (10:25)
[2017-11-14] MEDS: CYANOCOBALAMIN (VITAMIN B-12) 100 MCG TABLET PO SCH (10:26)
[2017-11-14] MEDS: CALCIUM ACETATE 667 MG CAPSULE (FP) PO SCH (10:26)
[2017-11-14] MEDS: TIGECYCLINE 50 MG in DEXTROSE 5%-WATER - 100 ML IVPB SCH ×3 (10:26→21:45)
[2017-11-14] MEDS: POLYETHYLENE GLYCOL 3350 119 GM BTL PO SCH (10:26)
[2017-11-14] MEDS: PANTOPRAZOLE 40 MG TABLET (FP) PO SCH (10:26)
--- NOTE | 2017-11-14 10:49 | PN ---
Progress Note (short form) - Note Progress Note: CCU. 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 Patient undergoing dialysis. Hemodynamics are stable. No chest pain or discomfort. Active Medications Acetaminophen (Tylenol -) 650 mg PO Q4H PRN PRN Reason: BACK PAIN Last Admin: 11/13/17 21:47 Dose: 650 mg Amino Acids (Prosource No Carb Liquid Pkt) 30 ml PO BID@0800,1730 [facility] Last Admin: 11/14/17 10:25 Dose: Not Given Aspirin (Asa -) 81 mg PO DAILY [facility] Last Admin: 11/14/17 10:25 Dose: Not Given Calcium Acetate (Phoslo -) 667 mg PO DAILY [facility] Last Admin: 11/14/17 10:26 Dose: Not Given Clotrimazole (Lotrimin 1% Cream -) 1 applic TP BID [facility] Last Admin: 11/13/17 21:47 Dose: 1 applic Cyanocobalamin (Vitamin B12 -) 100 mcg PO DAILY [facility] Last Admin: 11/14/17 10:26 Dose: Not Given Diphenhydramine HCl (Benadryl -) 25 mg PO HS PRN PRN Reason: INSOMNIA Last Admin: 11/13/17 21:48 Dose: 25 mg Docusate Sodium (Colace -) 100 mg PO DAILY [facility] Last Admin: 11/14/17 10:25 Dose: Not Given IV Flush (Kate-Cath Flush) 10 ml IVPUSH PRN PRN PRN Reason: Protocol Tigecycline 50 mg/ Dextrose 100 mls @ 100 mls/hr IVPB BID YOAN PRN Reason: Protocol Last Admin: 11/14/17 10:26 Dose: Not Given Daptomycin 500 mg/ Sodium (Chloride) 100 mls @ 200 mls/hr IVPB Q48H YOAN PRN Reason: Protocol Last Admin: 11/12/17 15:26 Dose: 200 mls/hr Insulin Aspart (Novolog Vial Sliding Scale -) 1 vial SQ TIDAC YOAN PRN Reason: Protocol Last Admin: 11/14/17 06:52 Dose: Not Given Insulin Detemir (Levemir Vial) 16 units SQ BID@0700,2200 [facility] Last Admin: 11/14/17 06:54 Dose: 16 units Lactobacillus Acidophilus (Bacid -) 1 tab PO DAILY [facility] Last Admin: 11/14/17 10:25 Dose: Not Given Levothyroxine Sodium (Synthroid -) 125 mcg PO DAILY@0700 [facility] Last Admin: 11/14/17 06:53 Dose: 125 mcg Metoprolol Tartrate (Lopressor -) 12.5 mg PO DAILY [facility] Last Admin: 11/14/17 10:25 Dose: Not Given Nitroglycerin (Nitrostat -) 0.4 mg SL DAILY PRN PRN Reason: FOR CHEST PAIN Nystatin (Nystop Powder -) 1 applic TP DAILY [facility] Last Admin: 11/13/17 09:55 Dose: 1 applic Ondansetron HCl (Zofran Injection) 4 mg IVPB Q6H PRN PRN Reason: NAUSEA Pantoprazole Sodium (Protonix -) 40 mg PO DAILY [facility] Last Admin: 11/14/17 10:26 Dose: Not Given Polyethylene Glycol (Miralax (For Daily Use) -) 17 gm PO DAILY [facility] Last Admin: 11/14/17 10:26 Dose: Not Given Senna (Senna -) 1 tab PO HS [facility] Last Admin: 11/13/17 21:33 Dose: Not Given Warfarin Sodium (Coumadin -) 3 mg PO DAILY@1800 [facility] 72 year old female in no distress, no pallor, clubbing, cyanosis or jaundice. Last Vital Signs Temp Pulse Resp BP Pulse Ox 98 F 88 irregular 20 115/72 96 11/14/17 01:00 11/14/17 09:00 11/14/17 09:00 11/14/17 09:00 11/14/17 09:00 NECK: Supple, no JVD, carotids 1-2+, no bruits heards. anterior surgical scar. HEART: PMI in the 5th ICS, LINDA I/ 2nd right ICS. no gallops heard. LUNGS; Clear on auscultation. ABDOMEN: Soft, firm and tender lesions involving the left abdominal wall, no organomegaly. EXTREMITIES: Rt. AKA, left partial amputation of the foot. partial amputation of the left index and ring finger, total amputation of the middle finger. CBC, BMP 11/13/17 05:15 11/13/17 05:15 IMPRESSION: 1. CAD s/p [place], s/p PCI/stenting. 2. Firm and tender lesion involving the left abdominal wall, consider infected injection site or infected hematoma. 3. Hypothyroidism, on replacement therapy. 4. Diabetes mellitus with multisystem involvement 5. Permanent atrial fib. with controlled ventricular response. 6. Hypertension. 7. Severe LV systolic dysfunction. 8. ICD. Recommendations: 1. Evaluation of tender abdominal lesion,. 2. Continue current therapy.
--- NOTE | 2017-11-14 11:18 | PN ---
Progress Note (short form) - Note Progress Note: Renal follow up for ESRD on HD Pt seen and examined during dialysis BP stable, catheter with 300 BF arterial pressure high pt continues to have left UQ abd pain no N/V/D. No fever, chills no SOB goal UF is 2L Vital Signs Temperature 98 F 11/14/17 01:00 Pulse Rate 92 H 11/14/17 11:00 Respiratory Rate 18 11/14/17 11:00 Blood Pressure 115/80 11/14/17 11:00 O2 Sat by Pulse Oximetry (%) 96 11/14/17 09:00 Intake & Output 11/11/17 11/12/17 11/13/17 11/14/17 23:59 23:59 23:59 23:59 Intake Total 540 1880 500 50 Balance 540 1880 500 50 Weight 86.046 kg NAD RRR Right AKA left hand in dressing CBC, BMP 11/13/17 05:15 11/13/17 05:15 Laboratory Tests 11/04/17 11/13/17 05:05 05:15 Calcium 7.1 L 7.3 L Albumin 2.0 L 1.7 L Current Medications Acetaminophen (Tylenol -) 650 mg PO Q4H PRN PRN Reason: BACK PAIN Last Admin: 11/13/17 21:47 Dose: 650 mg Amino Acids (Prosource No Carb Liquid Pkt) 30 ml PO BID@0800,1730 REPLACED BY [facility] Last Admin: 11/14/17 10:25 Dose: Not Given Aspirin (Asa -) 81 mg PO DAILY REPLACED BY [facility] Last Admin: 11/14/17 10:25 Dose: Not Given Calcium Acetate (Phoslo -) 667 mg PO DAILY REPLACED BY [facility] Last Admin: 11/14/17 10:26 Dose: Not Given Clotrimazole (Lotrimin 1% Cream -) 1 applic TP BID REPLACED BY [facility] Last Admin: 11/13/17 21:47 Dose: 1 applic Cyanocobalamin (Vitamin B12 -) 100 mcg PO DAILY REPLACED BY [facility] Last Admin: 11/14/17 10:26 Dose: Not Given Diphenhydramine HCl (Benadryl -) 25 mg PO HS PRN PRN Reason: INSOMNIA Last Admin: 11/13/17 21:48 Dose: 25 mg Docusate Sodium (Colace -) 100 mg PO DAILY REPLACED BY [facility] Last Admin: 11/14/17 10:25 Dose: Not Given IV Flush (Kate-Cath Flush) 10 ml IVPUSH PRN PRN PRN Reason: Protocol Tigecycline 50 mg/ Dextrose 100 mls @ 100 mls/hr IVPB BID YOAN PRN Reason: Protocol Last Admin: 11/14/17 10:26 Dose: Not Given Daptomycin 500 mg/ Sodium (Chloride) 100 mls @ 200 mls/hr IVPB Q48H YOAN PRN Reason: Protocol Last Admin: 11/12/17 15:26 Dose: 200 mls/hr Insulin Aspart (Novolog Vial Sliding Scale -) 1 vial SQ TIDAC REPLACED BY [facility] PRN Reason: Protocol Last Admin: 11/14/17 06:52 Dose: Not Given Insulin Detemir (Levemir Vial) 16 units SQ BID@0700,2200 REPLACED BY [facility] Last Admin: 11/14/17 06:54 Dose: 16 units Lactobacillus Acidophilus (Bacid -) 1 tab PO DAILY REPLACED BY [facility] Last Admin: 11/14/17 10:25 Dose: Not Given Levothyroxine Sodium (Synthroid -) 125 mcg PO DAILY@0700 REPLACED BY [facility] Last Admin: 11/14/17 06:53 Dose: 125 mcg Metoprolol Tartrate (Lopressor -) 12.5 mg PO DAILY REPLACED BY [facility] Last Admin: 11/14/17 10:25 Dose: Not Given Nitroglycerin (Nitrostat -) 0.4 mg SL DAILY PRN PRN Reason: FOR CHEST PAIN Nystatin (Nystop Powder -) 1 applic TP DAILY REPLACED BY [facility] Last Admin: 11/13/17 09:55 Dose: 1 applic Ondansetron HCl (Zofran Injection) 4 mg IVPB Q6H PRN PRN Reason: NAUSEA Pantoprazole Sodium (Protonix -) 40 mg PO DAILY REPLACED BY [facility] Last Admin: 11/14/17 10:26 Dose: Not Given Polyethylene Glycol (Miralax (For Daily Use) -) 17 gm PO DAILY REPLACED BY [facility] Last Admin: 11/14/17 10:26 Dose: Not Given Senna (Senna -) 1 tab PO HS REPLACED BY [facility] Last Admin: 11/13/17 21:33 Dose: Not Given Warfarin Sodium (Coumadin -) 3 mg PO DAILY@1800 REPLACED BY [facility] 72 year old woman with PMhx of ESRD on HD, Hypertension, DM on Insulin, PVD who presented with worsening hand pain. #ESRD on HD pt is tolerating dialysis well today BP is stable catheter with sub-optimal blood flow (getting heparin bolous) UF goal is 2L as tolerated #Hand ischemia/Pain/Collection vultures grew VRE and Ecoli continue Daptomycin (dosed after dialysis)and Tigecyline as per ID #Abd pain likely subcutaneous hematoma from heparin injection no signs of infection Hgb is stable monitor for now Wan Cruz DO
[2017-11-14] MEDS: CLOTRIMAZOLE 1% CREAM 15 GM TUBE TP SCH ×2 (11:58→21:44)
[2017-11-14] MEDS: NYSTATIN POWDER 100,000 UNITS/GM - 15 GM TOPICAL POWDER TP SCH (11:58)
[2017-11-14] MEDS: ACETAMINOPHEN 325 MG TABLET (FP) PO PRN ×3 (13:26→21:44)
--- NOTE | 2017-11-14 13:52 | PN ---
Progress Note (short form) - Note Progress Note: now with some painful left abdominal induration at prior injection site no fevers no sob Vital Signs Period Temp Pulse Resp BP Sys/Cordero Pulse Ox Last 24 Hr 98 F-99 F 74-99 18-22 92-136/44-95 94-96 cor-rrr lungs clear hand 2 exposed fingers with sutures intact dressing for middle finger abd induration less erythematous firer watertender, no fluctuance CBC, BMP 11/13/17 05:15 11/13/17 05:15 Microbiology 10/31/17 16:30 Hand - Left Gram Stain - Final 10/31/17 16:30 Hand - Left Wound Culture - Preliminary Klebsiella Pneumoniae - Esbl Vr Ec Faecalis 10/30/17 16:28 Blood - Peripheral Venous Blood Culture - Final NO GROWTH AFTER 5 DAYS INCUBATION 10/30/17 15:43 Blood - Peripheral Venous Blood Culture - Final NO GROWTH AFTER 5 DAYS INCUBATION a/p would observe abdomen for now- no erythema or fluctuance noted-warm compresses prn-firer watertender but appears improved, no fluctuance most likely hematoma pathology noted- acute osteo present at margin of amputated digit operative culture klebsiella esbl and vre currently on daptomycin and tygacil- no other options now day # 11antibiotics- will required penitentiary treatment for osteomyelitis of the hand esrd/hd DM Problem List - Problems (1) Flexor tenosynovitis of finger Code(s): M65.9 - SYNOVITIS AND TENOSYNOVITIS, UNSPECIFIED (2) Cellulitis of left hand Code(s): L03.114 - CELLULITIS OF LEFT UPPER LIMB (3) Diabetes Code(s): E11.9 - TYPE 2 DIABETES MELLITUS WITHOUT COMPLICATIONS Qualifiers: Diabetes mellitus type: type 1 Diabetes mellitus complication status: with circulatory complication Diabetes mellitus complication detail: with other circulatory complications Qualified Code(s): E10.59 - Type 1 diabetes mellitus with other circulatory complications (4) ESRD on hemodialysis Code(s): N18.6 - END STAGE RENAL DISEASE; Z99.2 - DEPENDENCE ON RENAL DIALYSIS
[2017-11-14] MEDS: DAPTOMYCIN 500 MG in SODIUM CHLORIDE 100 ML IVPB SCH (16:24)
[2017-11-14] MEDS: WARFARIN NA 3 MG TABLET PO SCH (17:38)
[2017-11-14] MEDS ORDERED: PT OWN MED DRAWER 7, Y5N ONE (21:42)
[2017-11-14] MEDS: diphenhydrAMINE HCL 25 MG CAPSULE (FP) PO PRN (21:45)
[2017-11-14] MEDS: SENNOSIDES 8.6MG TABLET (FP) PO SCH (21:47)
[2017-11-15] MEDS: INSULIN DETEMIR 100 UNITS/ML MDV SQ SCH ×2 (06:07→21:27)
[2017-11-15] MEDS: INSULIN SLIDING SCALE (NOVOLOG) 1 VIAL SQ SCH ×3 (06:08→18:05)
[2017-11-15] MEDS: LEVOTHYROXINE NA 125 MCG TABLET (FP) PO SCH (06:20)
[2017-11-15] MEDS: ACETAMINOPHEN 325 MG TABLET (FP) PO PRN (06:29)
[2017-11-15 07:44] LABS: INR 1.4 (0.82-1.09); PROTHROMBIN TIME (PATIENT) 15.8 SEC (9.98-11.88)
--- NOTE | 2017-11-15 08:38 | PN ---
Progress Note, Physician Chief Complaint: left hand wet and dry gangrene History of Present Illness: 72 yo female PMH HTN, DM, HLD, PAD, CHF, A-fib, defibrillator placement,pvd, ESRD (Dialysis on M,W,F- left chest tunnel catheter ), Right AKA amputation, Left foot amputation, and Left hand 2nd-4th digit partial amputation (02/2017) who presents with left hand pain. found to have flexor tenosynovitis and a combination of wet and dry gangrene. Reports some abdominal pain. - Current Medication List Current Medications: Active Medications Acetaminophen (Tylenol -) 650 mg PO Q4H PRN PRN Reason: BACK PAIN Last Admin: 11/15/17 06:29 Dose: 650 mg Amino Acids (Prosource No Carb Liquid Pkt) 30 ml PO BID@0800,1730 REPLACED BY [facility] Last Admin: 11/14/17 17:38 Dose: 30 ml Aspirin (Asa -) 81 mg PO DAILY REPLACED BY [facility] Last Admin: 11/14/17 10:25 Dose: Not Given Calcium Acetate (Phoslo -) 667 mg PO DAILY REPLACED BY [facility] Last Admin: 11/14/17 10:26 Dose: Not Given Clotrimazole (Lotrimin 1% Cream -) 1 applic TP BID REPLACED BY [facility] Last Admin: 11/14/17 21:44 Dose: 1 applic Cyanocobalamin (Vitamin B12 -) 100 mcg PO DAILY REPLACED BY [facility] Last Admin: 11/14/17 10:26 Dose: Not Given Diphenhydramine HCl (Benadryl -) 25 mg PO HS PRN PRN Reason: INSOMNIA Last Admin: 11/14/17 21:45 Dose: 25 mg Docusate Sodium (Colace -) 100 mg PO DAILY REPLACED BY [facility] Last Admin: 11/14/17 10:25 Dose: Not Given IV Flush (Kate-Cath Flush) 10 ml IVPUSH PRN PRN PRN Reason: Protocol Tigecycline 50 mg/ Dextrose 100 mls @ 100 mls/hr IVPB BID REPLACED BY [facility] PRN Reason: Protocol Last Admin: 11/14/17 21:45 Dose: 100 mls/hr Daptomycin 500 mg/ Sodium (Chloride) 100 mls @ 200 mls/hr IVPB Q48H YOAN PRN Reason: Protocol Last Admin: 11/14/17 16:24 Dose: 200 mls/hr Insulin Aspart (Novolog Vial Sliding Scale -) 1 vial SQ TIDAC REPLACED BY [facility] PRN Reason: Protocol Last Admin: 11/15/17 06:08 Dose: Not Given Insulin Detemir (Levemir Vial) 16 units SQ BID@0700,2200 REPLACED BY [facility] Last Admin: 11/15/17 06:07 Dose: Not Given Lactobacillus Acidophilus (Bacid -) 1 tab PO DAILY REPLACED BY [facility] Last Admin: 11/14/17 21:53 Dose: 1 tab Levothyroxine Sodium (Synthroid -) 125 mcg PO DAILY@0700 REPLACED BY [facility] Last Admin: 11/15/17 06:20 Dose: 125 mcg Metoprolol Tartrate (Lopressor -) 12.5 mg PO DAILY REPLACED BY [facility] Last Admin: 11/14/17 10:25 Dose: Not Given Nitroglycerin (Nitrostat -) 0.4 mg SL DAILY PRN PRN Reason: FOR CHEST PAIN Nystatin (Nystop Powder -) 1 applic TP DAILY REPLACED BY [facility] Last Admin: 11/14/17 11:58 Dose: 1 applic Ondansetron HCl (Zofran Injection) 4 mg IVPB Q6H PRN PRN Reason: NAUSEA Pantoprazole Sodium (Protonix -) 40 mg PO DAILY REPLACED BY [facility] Last Admin: 11/14/17 10:26 Dose: Not Given Polyethylene Glycol (Miralax (For Daily Use) -) 17 gm PO DAILY REPLACED BY [facility] Last Admin: 11/14/17 10:26 Dose: Not Given Senna (Senna -) 1 tab PO HS REPLACED BY [facility] Last Admin: 11/14/17 21:47 Dose: Not Given Warfarin Sodium (Coumadin -) 3 mg PO DAILY@1800 REPLACED BY [facility] Last Admin: 11/14/17 17:38 Dose: 3 mg - Objective Vital Signs: Vital Signs Temperature 98.6 F 11/15/17 04:05 Pulse Rate 76 11/15/17 04:05 Respiratory Rate 20 11/15/17 04:05 Blood Pressure 95/66 11/15/17 04:05 O2 Sat by Pulse Oximetry (%) 98 11/14/17 21:00 Constitutional: Yes: Well Nourished, No Distress, Calm Eyes: Yes: Conjunctiva Clear, EOM Intact HENT: Yes: Atraumatic, Normocephalic Neck: Yes: Supple, Trachea Midline Cardiovascular: Yes: Regular Rate and Rhythm, S1, S2. No: Murmur Respiratory: Yes: Regular, CTA Bilaterally Gastrointestinal: Yes: Normal Bowel Sounds, Soft ...Rectal Exam: Yes: Deferred Genitourinary: No: CVA Tenderness - Left, CVA Tenderness - Right Wound/Incision: Yes: Unapproximated Neurological: Yes: Alert, Oriented Psychiatric: Yes: Alert, Oriented Labs: CBC, BMP 11/13/17 05:15 11/13/17 05:15 INR, PTT INR 1.40 (0.82-1.09) H 11/15/17 06:45 Problem List - Problems (1) Gangrene of hand Assessment/Plan: 72 yo female MMP including Afib on coumadin, DM type 2 and ESRD, Wet gangrene and flexor tenosynovitis left middle finger, dry gangrene of index and ring fingers, poor distal circulation on duplex with PVR left arm. POD#17 s/p Left middle finger irrigation and debridement of flexor tenosynovitis and revision amputation of index middle and ring fingers. on daptomycin and tygacil per ID the wound is clean . She has some bruising of the abdominal panus on the left where she has been getting heparin Alternate abdominal site for heparin injection Warm compresses for comfort IV antibiotics per ID adequate analgesia Daily Dressing: Wound measurement: left middle open MCP [id number], clean no purulent drainage Dressing instructions: open MCP, fat emulsion, loose rolled gauze PT evaluation appreciated Can be discharged to appropriate facility Follow-up plan in discharge plan Code(s): I96 - GANGRENE, NOT ELSEWHERE CLASSIFIED (2) Flexor tenosynovitis of finger Code(s): M65.9 - SYNOVITIS AND TENOSYNOVITIS, UNSPECIFIED (3) Cellulitis and abscess of hand Code(s): L03.119 - CELLULITIS OF UNSPECIFIED PART OF LIMB; L02.519 - CUTANEOUS ABSCESS OF UNSPECIFIED HAND (4) Anemia in ESRD (end-stage renal disease) Code(s): N18.6 - END STAGE RENAL DISEASE; D63.1 - ANEMIA IN CHRONIC KIDNEY DISEASE (5) CAD (coronary artery disease) Code(s): I25.10 - ATHSCL HEART DISEASE OF [place] CORONARY ARTERY W/O ANG PCTRS Qualifiers: Coronary Disease-Associated Artery/Lesion type: [place] artery [place] vs. transplanted heart: [place] heart Associated angina: without angina Qualified Code(s): I25.10 - Atherosclerotic heart disease of [place] coronary artery without angina pectoris (6) DM type 2 causing complication Code(s): E11.8 - TYPE 2 DIABETES MELLITUS WITH UNSPECIFIED COMPLICATIONS (7) ESRD on hemodialysis Code(s): N18.6 - END STAGE RENAL DISEASE; Z99.2 - DEPENDENCE ON RENAL DIALYSIS (8) HTN (hypertension) Code(s): I10 - ESSENTIAL (PRIMARY) HYPERTENSION Qualifiers: Hypertension type: essential hypertension Qualified Code(s): I10 - Essential (primary) hypertension (9) Hypercholesterolemia Code(s): E78.00 - PURE HYPERCHOLESTEROLEMIA, UNSPECIFIED
[2017-11-15] MEDS: AMINO ACIDS/PROTEIN HYDROLYS 30 ML LIQUID.PKT PO SCH ×2 (08:58→18:06)
[2017-11-15] MEDS: POLYETHYLENE GLYCOL 3350 119 GM BTL PO SCH (08:59)
[2017-11-15] MEDS: DOCUSATE SODIUM 100 MG CAPSULE (FP) PO SCH (08:59)
[2017-11-15] MEDS: METOPROLOL TARTRATE 25 MG TABLET (FP) PO SCH (08:59)
[2017-11-15] MEDS: CALCIUM ACETATE 667 MG CAPSULE (FP) PO SCH (09:00)
[2017-11-15] MEDS: CYANOCOBALAMIN (VITAMIN B-12) 100 MCG TABLET PO SCH (09:00)
[2017-11-15] MEDS: PANTOPRAZOLE 40 MG TABLET (FP) PO SCH (09:00)
[2017-11-15] MEDS: LACTOBACILLUS ACIDOPHILUS 1 EACH TAB (FP) PO SCH (09:00)
[2017-11-15] MEDS: ASPIRIN 81 MG CHEWABLE TABLETS PO SCH (09:00)
[2017-11-15] MEDS: NYSTATIN POWDER 100,000 UNITS/GM - 15 GM TOPICAL POWDER TP SCH (09:04)
[2017-11-15] MEDS: CLOTRIMAZOLE 1% CREAM 15 GM TUBE TP SCH ×2 (09:05→21:27)
[2017-11-15] MEDS ORDERED: PT OWN MED DRAWER 7, Y5N ONE (09:10)
[2017-11-15] MEDS: TIGECYCLINE 50 MG in DEXTROSE 5%-WATER - 100 ML IVPB SCH ×2 (09:11→21:27)
--- NOTE | 2017-11-15 10:57 | PN ---
Progress Note (short form) - Note Progress Note: Renal follow up for ESRD on HD Pt seen and examined at the bedside awake and alert abd discomfort improving no sob, chest pain, N/V appetite is poor but improving hand pain is controlled with meds s/p dialysis yesterday Vital Signs Temperature 98.6 F 11/15/17 04:05 Pulse Rate 70 11/15/17 08:00 Respiratory Rate 18 11/15/17 08:00 Blood Pressure 109/78 11/15/17 08:00 O2 Sat by Pulse Oximetry (%) 98 11/15/17 09:00 Intake & Output 11/12/17 11/13/17 11/14/17 11/15/17 23:59 23:59 23:59 23:59 Intake Total 1880 500 375 60 Balance 1880 500 375 60 NAD RRR Right AKA left hand in dressing CBC, BMP 11/13/17 05:15 11/13/17 05:15 Current Medications Acetaminophen (Tylenol -) 650 mg PO Q4H PRN PRN Reason: BACK PAIN Last Admin: 11/15/17 06:29 Dose: 650 mg Amino Acids (Prosource No Carb Liquid Pkt) 30 ml PO BID@0800,1730 [facility] Last Admin: 11/15/17 08:58 Dose: 30 ml Aspirin (Asa -) 81 mg PO DAILY [facility] Last Admin: 11/15/17 09:00 Dose: 81 mg Calcium Acetate (Phoslo -) 667 mg PO DAILY [facility] Last Admin: 11/15/17 09:00 Dose: 667 mg Clotrimazole (Lotrimin 1% Cream -) 1 applic TP BID [facility] Last Admin: 11/15/17 09:05 Dose: 1 applic Cyanocobalamin (Vitamin B12 -) 100 mcg PO DAILY [facility] Last Admin: 11/15/17 09:00 Dose: 100 mcg Diphenhydramine HCl (Benadryl -) 25 mg PO HS PRN PRN Reason: INSOMNIA Last Admin: 11/14/17 21:45 Dose: 25 mg Docusate Sodium (Colace -) 100 mg PO DAILY [facility] Last Admin: 11/15/17 08:59 Dose: Not Given IV Flush (Kate-Cath Flush) 10 ml IVPUSH PRN PRN PRN Reason: Protocol Tigecycline 50 mg/ Dextrose 100 mls @ 100 mls/hr IVPB BID [facility] PRN Reason: Protocol Last Admin: 11/15/17 09:11 Dose: 100 mls/hr Daptomycin 500 mg/ Sodium (Chloride) 100 mls @ 200 mls/hr IVPB Q48H YOAN PRN Reason: Protocol Last Admin: 11/14/17 16:24 Dose: 200 mls/hr Insulin Aspart (Novolog Vial Sliding Scale -) 1 vial SQ TIDAC [facility] PRN Reason: Protocol Last Admin: 11/15/17 06:08 Dose: Not Given Insulin Detemir (Levemir Vial) 16 units SQ BID@0700,2200 [facility] Last Admin: 11/15/17 06:07 Dose: Not Given Lactobacillus Acidophilus (Bacid -) 1 tab PO DAILY [facility] Last Admin: 11/15/17 09:00 Dose: 1 tab Levothyroxine Sodium (Synthroid -) 125 mcg PO DAILY@0700 [facility] Last Admin: 11/15/17 06:20 Dose: 125 mcg Metoprolol Tartrate (Lopressor -) 12.5 mg PO DAILY [facility] Last Admin: 11/15/17 08:59 Dose: 12.5 mg Nitroglycerin (Nitrostat -) 0.4 mg SL DAILY PRN PRN Reason: FOR CHEST PAIN Nystatin (Nystop Powder -) 1 applic TP DAILY [facility] Last Admin: 11/15/17 09:04 Dose: 1 applic Ondansetron HCl (Zofran Injection) 4 mg IVPB Q6H PRN PRN Reason: NAUSEA Pantoprazole Sodium (Protonix -) 40 mg PO DAILY [facility] Last Admin: 11/15/17 09:00 Dose: 40 mg Polyethylene Glycol (Miralax (For Daily Use) -) 17 gm PO DAILY [facility] Last Admin: 11/15/17 08:59 Dose: Not Given Senna (Senna -) 1 tab PO HS [facility] Last Admin: 11/14/17 21:47 Dose: Not Given Warfarin Sodium (Coumadin -) 3 mg PO DAILY@1800 [facility] Last Admin: 11/14/17 17:38 Dose: 3 mg 72 year old woman with PMhx of ESRD on HD, Hypertension, DM on Insulin, PVD who presented with worsening hand pain. #ESRD on HD s/p dialysis yesterday, no indication for [employer] today next dialysis is planned for tomorrow #Hand ischemia/Pain/Collection s/p sugical intervention and drainage of fluid collection vultures grew VRE and Ecoli will continue daptomycin with Hd x 4 more week continue tigecycline IV via picc or tunneled central line #Abd pain secondary to subcutaneous hematoma improving hot/cold compress Wan Cruz DO
--- NOTE | 2017-11-15 11:47 | PN ---
Progress Note, Physician Chief Complaint: Denies complaints Feels well - Current Medication List Current Medications: Active Medications Acetaminophen (Tylenol -) 650 mg PO Q4H PRN PRN Reason: BACK PAIN Last Admin: 11/15/17 06:29 Dose: 650 mg Amino Acids (Prosource No Carb Liquid Pkt) 30 ml PO BID@0800,1730 [facility] Last Admin: 11/15/17 08:58 Dose: 30 ml Aspirin (Asa -) 81 mg PO DAILY [facility] Last Admin: 11/15/17 09:00 Dose: 81 mg Calcium Acetate (Phoslo -) 667 mg PO DAILY [facility] Last Admin: 11/15/17 09:00 Dose: 667 mg Clotrimazole (Lotrimin 1% Cream -) 1 applic TP BID [facility] Last Admin: 11/15/17 09:05 Dose: 1 applic Cyanocobalamin (Vitamin B12 -) 100 mcg PO DAILY [facility] Last Admin: 11/15/17 09:00 Dose: 100 mcg Diphenhydramine HCl (Benadryl -) 25 mg PO HS PRN PRN Reason: INSOMNIA Last Admin: 11/14/17 21:45 Dose: 25 mg Docusate Sodium (Colace -) 100 mg PO DAILY [facility] Last Admin: 11/15/17 08:59 Dose: Not Given IV Flush (Kate-Cath Flush) 10 ml IVPUSH PRN PRN PRN Reason: Protocol Tigecycline 50 mg/ Dextrose 100 mls @ 100 mls/hr IVPB BID [facility] PRN Reason: Protocol Last Admin: 11/15/17 09:11 Dose: 100 mls/hr Daptomycin 500 mg/ Sodium (Chloride) 100 mls @ 200 mls/hr IVPB Q48H YOAN PRN Reason: Protocol Last Admin: 11/14/17 16:24 Dose: 200 mls/hr Insulin Aspart (Novolog Vial Sliding Scale -) 1 vial SQ TIDAC YOAN PRN Reason: Protocol Last Admin: 11/15/17 11:45 Dose: Not Given Insulin Detemir (Levemir Vial) 16 units SQ BID@0700,2200 [facility] Last Admin: 11/15/17 06:07 Dose: Not Given Lactobacillus Acidophilus (Bacid -) 1 tab PO DAILY [facility] Last Admin: 11/15/17 09:00 Dose: 1 tab Levothyroxine Sodium (Synthroid -) 125 mcg PO DAILY@0700 [facility] Last Admin: 11/15/17 06:20 Dose: 125 mcg Metoprolol Tartrate (Lopressor -) 12.5 mg PO DAILY [facility] Last Admin: 11/15/17 08:59 Dose: 12.5 mg Nitroglycerin (Nitrostat -) 0.4 mg SL DAILY PRN PRN Reason: FOR CHEST PAIN Nystatin (Nystop Powder -) 1 applic TP DAILY [facility] Last Admin: 11/15/17 09:04 Dose: 1 applic Ondansetron HCl (Zofran Injection) 4 mg IVPB Q6H PRN PRN Reason: NAUSEA Pantoprazole Sodium (Protonix -) 40 mg PO DAILY [facility] Last Admin: 11/15/17 09:00 Dose: 40 mg Polyethylene Glycol (Miralax (For Daily Use) -) 17 gm PO DAILY [facility] Last Admin: 11/15/17 08:59 Dose: Not Given Senna (Senna -) 1 tab PO HS [facility] Last Admin: 11/14/17 21:47 Dose: Not Given Warfarin Sodium (Coumadin -) 3 mg PO DAILY@1800 [facility] Last Admin: 11/14/17 17:38 Dose: 3 mg - Objective Vital Signs: Vital Signs Temperature 98.6 F 11/15/17 04:05 Pulse Rate 70 11/15/17 08:00 Respiratory Rate 18 11/15/17 08:00 Blood Pressure 109/78 11/15/17 08:00 O2 Sat by Pulse Oximetry (%) 98 11/15/17 09:00 Constitutional: Yes: No Distress Cardiovascular: Yes: Regular Rate and Rhythm Respiratory: Yes: Diminished Gastrointestinal: Yes: Normal Bowel Sounds, Soft. No: Tenderness Extremities: Yes: Amputation, Other (left hand-- 2nd and 4 th digit-- bases clean, sutured) Edema: No Labs: CBC, BMP 11/13/17 05:15 11/13/17 05:15 INR, PTT INR 1.40 (0.82-1.09) H 11/15/17 06:45 Problem List - Problems (1) Cellulitis and abscess of hand Code(s): L03.119 - CELLULITIS OF UNSPECIFIED PART OF LIMB; L02.519 - CUTANEOUS ABSCESS OF UNSPECIFIED HAND (2) Anemia Code(s): D64.9 - ANEMIA, UNSPECIFIED Qualifiers: Anemia type: other cause Other causes of anemia: chronic disease, kidney (3) Atrial fibrillation Code(s): I48.91 - UNSPECIFIED ATRIAL FIBRILLATION Qualifiers: Atrial fibrillation type: unspecified Qualified Code(s): I48.91 - Unspecified atrial fibrillation (4) DM type 2 causing complication Code(s): E11.8 - TYPE 2 DIABETES MELLITUS WITH UNSPECIFIED COMPLICATIONS (5) ESRD (end stage renal disease) on dialysis Code(s): N18.6 - END STAGE RENAL DISEASE; Z99.2 - DEPENDENCE ON RENAL DIALYSIS Assessment/Plan Abx per ID-- needs total 6 weeks-- Dapto +Tigecil-- spoke with nurse-- needs picc line for antibiotics INR low continue other meds monitor bgm-- on Levemir dc planning-- likely [facility]-- will need to get Daptomycin available prior to discharge-- I was told it may take 2-3 days .She will have transport from [place] to dialysis 3 days a week pain control dialysis per renal will follow BP stable Prostat BID
[2017-11-15] MEDS: ONDANSETRON 4 MG/2 ML VIAL IVPB PRN (11:51)
[2017-11-15] MEDS: WARFARIN NA 3 MG TABLET PO SCH (18:06)
--- NOTE | 2017-11-15 20:32 | PN ---
Progress Note (short form) - Note Progress Note: CCU. 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 Atrial fib with controlled ventricular response. no complaints except localied left abdominal tenderness. Active Medications Acetaminophen (Tylenol -) 650 mg PO Q4H PRN PRN Reason: BACK PAIN Last Admin: 11/15/17 06:29 Dose: 650 mg Amino Acids (Prosource No Carb Liquid Pkt) 30 ml PO BID@0800,1730 [facility] Last Admin: 11/15/17 18:06 Dose: 30 ml Aspirin (Asa -) 81 mg PO DAILY [facility] Last Admin: 11/15/17 09:00 Dose: 81 mg Calcium Acetate (Phoslo -) 667 mg PO DAILY [facility] Last Admin: 11/15/17 09:00 Dose: 667 mg Clotrimazole (Lotrimin 1% Cream -) 1 applic TP BID [facility] Last Admin: 11/15/17 09:05 Dose: 1 applic Cyanocobalamin (Vitamin B12 -) 100 mcg PO DAILY [facility] Last Admin: 11/15/17 09:00 Dose: 100 mcg Diphenhydramine HCl (Benadryl -) 25 mg PO HS PRN PRN Reason: INSOMNIA Last Admin: 11/14/17 21:45 Dose: 25 mg Docusate Sodium (Colace -) 100 mg PO DAILY [facility] Last Admin: 11/15/17 08:59 Dose: Not Given IV Flush (Kate-Cath Flush) 10 ml IVPUSH PRN PRN PRN Reason: Protocol Tigecycline 50 mg/ Dextrose 100 mls @ 100 mls/hr IVPB BID [facility] PRN Reason: Protocol Last Admin: 11/15/17 09:11 Dose: 100 mls/hr Daptomycin 500 mg/ Sodium (Chloride) 100 mls @ 200 mls/hr IVPB Q48H [facility] PRN Reason: Protocol Last Admin: 11/14/17 16:24 Dose: 200 mls/hr Insulin Aspart (Novolog Vial Sliding Scale -) 1 vial SQ TIDAC [facility] PRN Reason: Protocol Last Admin: 11/15/17 18:05 Dose: 2 units Insulin Detemir (Levemir Vial) 16 units SQ BID@0700,2200 [facility] Last Admin: 11/15/17 06:07 Dose: Not Given Lactobacillus Acidophilus (Bacid -) 1 tab PO DAILY [facility] Last Admin: 11/15/17 09:00 Dose: 1 tab Levothyroxine Sodium (Synthroid -) 125 mcg PO DAILY@0700 [facility] Last Admin: 11/15/17 06:20 Dose: 125 mcg Metoprolol Tartrate (Lopressor -) 12.5 mg PO DAILY [facility] Last Admin: 11/15/17 08:59 Dose: 12.5 mg Nitroglycerin (Nitrostat -) 0.4 mg SL DAILY PRN PRN Reason: FOR CHEST PAIN Nystatin (Nystop Powder -) 1 applic TP DAILY [facility] Last Admin: 11/15/17 09:04 Dose: 1 applic Ondansetron HCl (Zofran Injection) 4 mg IVPB Q6H PRN PRN Reason: NAUSEA Last Admin: 11/15/17 11:51 Dose: 4 mg Pantoprazole Sodium (Protonix -) 40 mg PO DAILY [facility] Last Admin: 11/15/17 09:00 Dose: 40 mg Polyethylene Glycol (Miralax (For Daily Use) -) 17 gm PO DAILY [facility] Last Admin: 11/15/17 08:59 Dose: Not Given Senna (Senna -) 1 tab PO HS [facility] Last Admin: 11/14/17 21:47 Dose: Not Given Warfarin Sodium (Coumadin -) 3 mg PO DAILY@1800 [facility] Last Admin: 11/15/17 18:06 Dose: 3 mg 72 year old female in no distress, no pallor, clubbing, cyanosis or jaundice. Last Vital Signs Temp Pulse Resp BP Pulse Ox 98 F 82 18 108/85 98 11/15/17 20:00 11/15/17 20:00 11/15/17 20:00 11/15/17 20:00 11/15/17 09:00 NECK: Supple, no JVD, carotids 1-2+, no bruits heards. anterior surgical scar. HEART: PMI in the 5th ICS, LINDA I/ 2nd right ICS. no gallops heard. LUNGS; Clear on auscultation. ABDOMEN: Soft, firm and tender lesions involving the left abdominal wall, no organomegaly. EXTREMITIES: Rt. AKA, left partial amputation of the foot. partial amputation of the left index and ring finger, total amputation of the middle finger. CBC, BMP 11/13/17 05:15 11/13/17 05:15 IMPRESSION: 1. CAD s/p CA, s/p PCI/stenting. 2. Firm and tender lesion involving the left abdominal wall, consider infected injection site or infected hematoma. 3. Hypothyroidism, on replacement therapy. 4. Diabetes mellitus with multisystem involvement 5. Permanent atrial fib. with controlled ventricular response. 6. Hypertension. 7. Severe LV systolic dysfunction. 8. ICD. Recommendations: 1. Continue current cardiac therapy. 2. Awaiting transfer to a SNF.
[2017-11-15] MEDS: SENNOSIDES 8.6MG TABLET (FP) PO SCH (21:28)
[2017-11-16] MEDS: INSULIN SLIDING SCALE (NOVOLOG) 1 VIAL SQ SCH ×3 (06:37→17:02)
[2017-11-16] MEDS: LEVOTHYROXINE NA 125 MCG TABLET (FP) PO SCH (06:40)
[2017-11-16] MEDS: INSULIN DETEMIR 100 UNITS/ML MDV SQ SCH ×2 (06:40→22:40)
[2017-11-16 08:56] LABS: HEMATOCRIT 41.3 % (32.4-45.2); HEMOGLOBIN 12.7 GM/dL (10.7-15.3); MCH 29.8 pg (25.7-33.7); MCHC 30.7 g/dl (32.0-36.0); MEAN CELL VOLUME 96.9 fl (80-96); MEAN PLT VOLUME 8.2 fl (7.5-11.1); PLATELET COUNT 379 K/MM3 (134-434); RBC 4.26 M/mm3 (3.60-5.2); RDW 18.9 % (11.6-15.6); WHITE BLOOD COUNT 10.7 K/mm3 (4.0-10.0)
[2017-11-16 09:00] LABS: INR 1.53 (0.82-1.09); PROTHROMBIN TIME (PATIENT) 17.3 SEC (9.98-11.88)
[2017-11-16 09:11] LABS: ANION GAP 14 (8-16); BLOOD UREA NITROGEN 95 mg/dL (7-18); CALCIUM 7.1 mg/dL (8.5-10.1); CHLORIDE 99 mmol/L (98-107); CO2 23 mmol/L (21-32); CREATININE 5.7 mg/dL (0.55-1.02); GLUCOSE,RANDOM 62 mg/dL (74-106); PHOSPHOROUS 8.6 mg/dL (2.5-4.9); POTASSIUM 5.8 mmol/L (3.5-5.1); SODIUM 136 mmol/L (136-145)
[2017-11-16] MEDS: CALCIUM ACETATE 667 MG CAPSULE (FP) PO SCH (09:21)
[2017-11-16] MEDS: METOPROLOL TARTRATE 25 MG TABLET (FP) PO SCH (09:21)
[2017-11-16] MEDS: TIGECYCLINE 50 MG in DEXTROSE 5%-WATER - 100 ML IVPB SCH ×2 (09:21→22:40)
[2017-11-16] MEDS: DOCUSATE SODIUM 100 MG CAPSULE (FP) PO SCH (09:25)
[2017-11-16] MEDS: ASPIRIN 81 MG CHEWABLE TABLETS PO SCH (09:26)
[2017-11-16] MEDS: AMINO ACIDS/PROTEIN HYDROLYS 30 ML LIQUID.PKT PO SCH ×3 (09:26→20:05)
[2017-11-16] MEDS: CYANOCOBALAMIN (VITAMIN B-12) 100 MCG TABLET PO SCH (09:26)
[2017-11-16] MEDS: ACETAMINOPHEN 325 MG TABLET (FP) PO PRN ×3 (09:26→22:40)
[2017-11-16] MEDS: LACTOBACILLUS ACIDOPHILUS 1 EACH TAB (FP) PO SCH (09:26)
[2017-11-16] MEDS: PANTOPRAZOLE 40 MG TABLET (FP) PO SCH (09:27)
[2017-11-16] MEDS: POLYETHYLENE GLYCOL 3350 119 GM BTL PO SCH (09:27)
--- NOTE | 2017-11-16 10:06 | PN ---
Progress Note, Physician Chief Complaint: Denies complaints Feels well - Current Medication List Current Medications: Active Medications Acetaminophen (Tylenol -) 650 mg PO Q4H PRN PRN Reason: BACK PAIN Last Admin: 11/16/17 09:26 Dose: 650 mg Amino Acids (Prosource No Carb Liquid Pkt) 30 ml PO BID@0800,1730 [facility] Last Admin: 11/16/17 09:26 Dose: 30 ml Aspirin (Asa -) 81 mg PO DAILY [facility] Last Admin: 11/16/17 09:26 Dose: 81 mg Calcium Acetate (Phoslo -) 667 mg PO DAILY [facility] Last Admin: 11/16/17 09:21 Dose: 667 mg Clotrimazole (Lotrimin 1% Cream -) 1 applic TP BID [facility] Last Admin: 11/15/17 21:27 Dose: 1 applic Cyanocobalamin (Vitamin B12 -) 100 mcg PO DAILY [facility] Last Admin: 11/16/17 09:26 Dose: 100 mcg Diphenhydramine HCl (Benadryl -) 25 mg PO HS PRN PRN Reason: INSOMNIA Last Admin: 11/14/17 21:45 Dose: 25 mg Docusate Sodium (Colace -) 100 mg PO DAILY [facility] Last Admin: 11/16/17 09:25 Dose: Not Given IV Flush (Kate-Cath Flush) 10 ml IVPUSH PRN PRN PRN Reason: Protocol Tigecycline 50 mg/ Dextrose 100 mls @ 100 mls/hr IVPB BID [facility] PRN Reason: Protocol Last Admin: 11/16/17 09:21 Dose: 100 mls/hr Daptomycin 500 mg/ Sodium (Chloride) 100 mls @ 200 mls/hr IVPB Q48H [facility] PRN Reason: Protocol Last Admin: 11/14/17 16:24 Dose: 200 mls/hr Insulin Aspart (Novolog Vial Sliding Scale -) 1 vial SQ TIDAC [facility] PRN Reason: Protocol Last Admin: 11/16/17 06:37 Dose: Not Given Insulin Detemir (Levemir Vial) 16 units SQ BID@0700,2200 [facility] Last Admin: 11/16/17 06:40 Dose: 16 units Lactobacillus Acidophilus (Bacid -) 1 tab PO DAILY [facility] Last Admin: 11/16/17 09:26 Dose: 1 tab Levothyroxine Sodium (Synthroid -) 125 mcg PO DAILY@0700 [facility] Last Admin: 11/16/17 06:40 Dose: 125 mcg Metoprolol Tartrate (Lopressor -) 12.5 mg PO DAILY [facility] Last Admin: 11/16/17 09:21 Dose: 12.5 mg Nitroglycerin (Nitrostat -) 0.4 mg SL DAILY PRN PRN Reason: FOR CHEST PAIN Nystatin (Nystop Powder -) 1 applic TP DAILY [facility] Last Admin: 11/15/17 09:04 Dose: 1 applic Ondansetron HCl (Zofran Injection) 4 mg IVPB Q6H PRN PRN Reason: NAUSEA Last Admin: 11/15/17 11:51 Dose: 4 mg Pantoprazole Sodium (Protonix -) 40 mg PO DAILY [facility] Last Admin: 11/16/17 09:27 Dose: 40 mg Polyethylene Glycol (Miralax (For Daily Use) -) 17 gm PO DAILY [facility] Last Admin: 11/16/17 09:27 Dose: Not Given Senna (Senna -) 1 tab PO HS [facility] Last Admin: 11/15/17 21:28 Dose: Not Given Warfarin Sodium (Coumadin -) 3 mg PO DAILY@1800 [facility] Last Admin: 11/15/17 18:06 Dose: 3 mg - Objective Vital Signs: Vital Signs Temperature 98.1 F 11/16/17 06:00 Pulse Rate 75 11/16/17 06:00 Respiratory Rate 18 11/16/17 06:00 Blood Pressure 116/87 11/16/17 06:00 O2 Sat by Pulse Oximetry (%) 98 11/15/17 22:00 Constitutional: Yes: No Distress, Calm Cardiovascular: Yes: Regular Rate and Rhythm Respiratory: Yes: CTA Bilaterally Gastrointestinal: Yes: Normal Bowel Sounds, Soft. No: Tenderness Edema: No Labs: CBC, BMP 11/16/17 08:15 11/16/17 08:15 INR, PTT INR 1.53 (0.82-1.09) H 11/16/17 08:15 Problem List - Problems (1) Cellulitis and abscess of hand Code(s): L03.119 - CELLULITIS OF UNSPECIFIED PART OF LIMB; L02.519 - CUTANEOUS ABSCESS OF UNSPECIFIED HAND (2) Anemia Code(s): D64.9 - ANEMIA, UNSPECIFIED Qualifiers: Anemia type: other cause Other causes of anemia: chronic disease, kidney (3) Atrial fibrillation Code(s): I48.91 - UNSPECIFIED ATRIAL FIBRILLATION Qualifiers: Atrial fibrillation type: unspecified Qualified Code(s): I48.91 - Unspecified atrial fibrillation (4) DM type 2 causing complication Code(s): E11.8 - TYPE 2 DIABETES MELLITUS WITH UNSPECIFIED COMPLICATIONS (5) ESRD (end stage renal disease) on dialysis Code(s): N18.6 - END STAGE RENAL DISEASE; Z99.2 - DEPENDENCE ON RENAL DIALYSIS Assessment/Plan Abx per ID-- needs total 6 weeks-- Dapto +Tigecil-- spoke with nurse-- needs picc line for antibiotics INR low continue other meds monitor bgm-- on Levemir dc planning-- likely [facility]-- will need to get Daptomycin available prior to discharge-- I was told it may take 2-3 days .She will have transport from [place] to dialysis 3 days a week pain control dialysis per renal will follow BP stable Prostat BID
[2017-11-16] MEDS: NYSTATIN POWDER 100,000 UNITS/GM - 15 GM TOPICAL POWDER TP SCH (10:58)
[2017-11-16] MEDS: CLOTRIMAZOLE 1% CREAM 15 GM TUBE TP SCH ×2 (10:58→22:41)
--- NOTE | 2017-11-16 12:43 | PN ---
Progress Note (short form) - Note Progress Note: CCU. 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 Atrial fib with controlled ventricular response. Ongoing moderate discomfort involving the left side of the abdomen, related to firm localized area most likely related to either to a hematoma or possibly infected injection site. Patient undergoing dialysis. Active Medications Generic Name Dose Route Start Last Admin Trade Name Freq PRN Reason Stop Dose Admin Acetaminophen 650 mg 10/31/17 16:05 11/16/17 09:26 Tylenol - PO 650 mg Q4H PRN Administration BACK PAIN Amino Acids 30 ml 11/09/17 17:30 11/16/17 09:26 Prosource No Carb Liquid Pkt PO 30 ml BID@0800,1730 [facility] Administration Aspirin 81 mg 11/01/17 10:00 11/16/17 09:26 Asa - PO 81 mg DAILY [facility] Administration Calcium Acetate 667 mg 11/01/17 10:00 11/16/17 09:21 Phoslo - PO 667 mg DAILY [facility] Administration Clotrimazole 1 applic 11/13/17 11:00 11/16/17 10:58 Lotrimin 1% Cream - TP Not Given BID [facility] Cyanocobalamin 100 mcg 11/01/17 10:00 11/16/17 09:26 Vitamin B12 - PO 100 mcg DAILY [facility] Administration Diphenhydramine HCl 25 mg 11/09/17 11:07 11/14/17 21:45 Benadryl - PO 25 mg HS PRN Administration INSOMNIA Docusate Sodium 100 mg 11/01/17 10:00 11/16/17 09:25 Colace - PO Not Given DAILY [facility] IV Flush 10 ml 11/08/17 11:34 Kate-Cath Flush IVPUSH PRN PRN Protocol Tigecycline 50 mg/ Dextrose 100 mls @ 100 mls/hr 11/04/17 22:00 11/16/17 09: 21 IVPB 100 mls/hr BID [facility] Administration Protocol Daptomycin 500 mg/ Sodium 100 mls @ 200 mls/hr 11/04/17 16:00 11/14/17 16:24 Chloride IVPB 200 mls/hr Q48H [facility] Administration Protocol Insulin Aspart 1 vial 11/03/17 16:30 11/16/17 11:41 Novolog Vial Sliding Scale - SQ Not Given TIDAC [facility] Protocol Insulin Detemir 16 units 11/02/17 12:17 11/16/17 06:40 Levemir Vial SQ 16 units BID@0700,2200 [facility] Administration Lactobacillus Acidophilus 1 tab 11/01/17 10:00 11/16/17 09:26 Bacid - PO 1 tab DAILY [facility] Administration Levothyroxine Sodium 125 mcg 11/01/17 07:00 11/16/17 06:40 Synthroid - PO 125 mcg DAILY@0700 [facility] Administration Metoprolol Tartrate 12.5 mg 11/01/17 10:00 11/16/17 09:21 Lopressor - PO 12.5 mg DAILY [facility] Administration Nitroglycerin 0.4 mg 10/31/17 16:05 Nitrostat - SL DAILY PRN FOR CHEST PAIN Nystatin 1 applic 11/12/17 20:45 11/16/17 10:58 Nystop Powder - TP Not Given DAILY [facility] Ondansetron HCl 4 mg 11/04/17 09:31 11/15/17 11:51 Zofran Injection IVPB 4 mg Q6H PRN Administration NAUSEA Pantoprazole Sodium 40 mg 11/01/17 10:00 11/16/17 09:27 Protonix - PO 40 mg DAILY [facility] Administration Polyethylene Glycol 17 gm 11/01/17 10:00 11/16/17 09:27 Miralax (For Daily Use) - PO Not Given DAILY [facility] Senna 1 tab 10/31/17 22:00 11/15/17 21:28 Senna - PO Not Given HS [facility] Warfarin Sodium 3 mg 11/14/17 18:00 11/15/17 18:06 Coumadin - PO 3 mg DAILY@1800 [facility] Administration 72 year old female in no distress, no pallor, clubbing, cyanosis or jaundice. Last Vital Signs Temp Pulse Resp BP Pulse Ox 98.2 F 73 18 137/71 98 11/16/17 10:00 11/16/17 10:00 11/16/17 10:00 11/16/17 10:00 11/16/17 09:00 NECK: Supple, no JVD, carotids 1-2+, no bruits heards. anterior surgical scar. HEART: PMI in the 5th ICS, LINDA I/ 2nd right ICS. no gallops heard. LUNGS; Clear on auscultation. ABDOMEN: Soft, firm and tender lesions involving the left abdominal wall, no organomegaly. EXTREMITIES: Rt. AKA, left partial amputation of the foot. partial amputation of the left index and ring finger, total amputation of the middle finger. CBC, BMP 11/16/17 08:15 11/16/17 08:15 IMPRESSION: 1. CAD s/p AR, s/p PCI/stenting. 2. Firm and tender lesion involving the left abdominal wall, consider infected injection site or infected hematoma. 3. Hypothyroidism, on replacement therapy. 4. Diabetes mellitus with multisystem involvement 5. Permanent atrial fib. with controlled ventricular response. 6. Hypertension. 7. Severe LV systolic dysfunction. 8. ICD. Recommendations: 1. Continue current cardiac therapy. 2. Awaiting transfer to a SNF. 3. Consider ultrasound of the left side of abdomen.
[2017-11-16] MEDS ORDERED: HEPARIN NA (PORCINE) 5,000 UNITS/ML 1ML VIAL IVPUSH ONE (13:16)
--- NOTE | 2017-11-16 13:18 | PN ---
Progress Note (short form) - Note Progress Note: Renal follow up for ESRD on HD Pt seen and examined during dialysis unable to achieve goal BF because blood clotting in filter will give heparin bolus with HD pt without complaints has continued pain in right hand no sob, chest pain, abd pain, N/V/D Vital Signs Temperature 98.4 F 11/16/17 12:10 Pulse Rate 70 11/16/17 12:45 Respiratory Rate 18 11/16/17 12:45 Blood Pressure 117/56 11/16/17 12:45 O2 Sat by Pulse Oximetry (%) 98 11/16/17 09:00 Intake & Output 11/13/17 11/14/17 11/15/17 11/16/17 23:59 23:59 23:59 23:59 Intake Total 500 375 160 100 Balance 500 375 160 100 NAD RRR Right AKA left hand in dressing CBC, BMP 11/16/17 08:15 11/16/17 08:15 Current Medications Acetaminophen (Tylenol -) 650 mg PO Q4H PRN PRN Reason: BACK PAIN Last Admin: 11/16/17 09:26 Dose: 650 mg Amino Acids (Prosource No Carb Liquid Pkt) 30 ml PO BID@0800,1730 [facility] Last Admin: 11/16/17 09:26 Dose: 30 ml Aspirin (Asa -) 81 mg PO DAILY [facility] Last Admin: 11/16/17 09:26 Dose: 81 mg Calcium Acetate (Phoslo -) 667 mg PO DAILY [facility] Last Admin: 11/16/17 09:21 Dose: 667 mg Clotrimazole (Lotrimin 1% Cream -) 1 applic TP BID [facility] Last Admin: 11/16/17 10:58 Dose: Not Given Cyanocobalamin (Vitamin B12 -) 100 mcg PO DAILY [facility] Last Admin: 11/16/17 09:26 Dose: 100 mcg Diphenhydramine HCl (Benadryl -) 25 mg PO HS PRN PRN Reason: INSOMNIA Last Admin: 11/14/17 21:45 Dose: 25 mg Docusate Sodium (Colace -) 100 mg PO DAILY [facility] Last Admin: 11/16/17 09:25 Dose: Not Given Heparin Sodium (Porcine) (Heparin -) 1,000 unit IVPUSH ONCE ONE Stop: 11/16/17 13:17 Heparin Sodium (Porcine) (Heparin -) 500 unit IVPUSH Q1H [facility] Stop: 11/16/17 15:31 IV Flush (Kate-Cath Flush) 10 ml IVPUSH PRN PRN PRN Reason: Protocol Tigecycline 50 mg/ Dextrose 100 mls @ 100 mls/hr IVPB BID [facility] PRN Reason: Protocol Last Admin: 11/16/17 09:21 Dose: 100 mls/hr Daptomycin 500 mg/ Sodium (Chloride) 100 mls @ 200 mls/hr IVPB Q48H [facility] PRN Reason: Protocol Last Admin: 11/14/17 16:24 Dose: 200 mls/hr Insulin Aspart (Novolog Vial Sliding Scale -) 1 vial SQ TIDAC [facility] PRN Reason: Protocol Last Admin: 11/16/17 11:41 Dose: Not Given Insulin Detemir (Levemir Vial) 16 units SQ BID@0700,2200 [facility] Last Admin: 11/16/17 06:40 Dose: 16 units Lactobacillus Acidophilus (Bacid -) 1 tab PO DAILY [facility] Last Admin: 11/16/17 09:26 Dose: 1 tab Levothyroxine Sodium (Synthroid -) 125 mcg PO DAILY@0700 [facility] Last Admin: 11/16/17 06:40 Dose: 125 mcg Metoprolol Tartrate (Lopressor -) 12.5 mg PO DAILY [facility] Last Admin: 11/16/17 09:21 Dose: 12.5 mg Nitroglycerin (Nitrostat -) 0.4 mg SL DAILY PRN PRN Reason: FOR CHEST PAIN Nystatin (Nystop Powder -) 1 applic TP DAILY [facility] Last Admin: 11/16/17 10:58 Dose: Not Given Ondansetron HCl (Zofran Injection) 4 mg IVPB Q6H PRN PRN Reason: NAUSEA Last Admin: 11/15/17 11:51 Dose: 4 mg Pantoprazole Sodium (Protonix -) 40 mg PO DAILY [facility] Last Admin: 11/16/17 09:27 Dose: 40 mg Polyethylene Glycol (Miralax (For Daily Use) -) 17 gm PO DAILY [facility] Last Admin: 11/16/17 09:27 Dose: Not Given Senna (Senna -) 1 tab PO HS [facility] Last Admin: 11/15/17 21:28 Dose: Not Given Warfarin Sodium (Coumadin -) 3 mg PO DAILY@1800 [facility] Last Admin: 11/15/17 18:06 Dose: 3 mg 72 year old woman with PMhx of ESRD on HD, Hypertension, DM on Insulin, PVD who presented with worsening hand pain. #ESRD on HD currently getting dialysis will add heparin to HD as pt not able to get goal blood flow #Hand ischemia/Pain/Collection s/p sugical intervention and drainage of fluid collection vultures grew VRE and Ecoli will continue daptomycin with Hd x 4 more week continue tigecycline IV via picc or tunneled central line #Abd pain secondary to subcutaneous hematoma improving hot/cold compress will use heparin with HD trend tamela Cruz DO
[2017-11-16] MEDS: HEPARIN NA (PORCINE) 5,000 UNITS/ML 1ML VIAL IVPUSH SCH ×3 (13:30→15:30)
[2017-11-16] MEDS: DAPTOMYCIN 500 MG in SODIUM CHLORIDE 100 ML IVPB SCH (15:48)
[2017-11-16] MEDS: WARFARIN NA 3 MG TABLET PO SCH (17:33)
[2017-11-16] MEDS: diphenhydrAMINE HCL 25 MG CAPSULE (FP) PO PRN (22:40)
[2017-11-16] MEDS: SENNOSIDES 8.6MG TABLET (FP) PO SCH (22:41)
[2017-11-17 06:05] LABS: BASO % 1.2 % (0-2.0); EOS % 1.8 % (0-4.5); HEMATOCRIT 37.8 % (32.4-45.2); LYMPH % 28.1 % (8-40); MCH 30.6 pg (25.7-33.7); MCHC 31.8 g/dl (32.0-36.0); MEAN CELL VOLUME 96.3 fl (80-96); MEAN PLT VOLUME 8.5 fl (7.5-11.1); MONO % 9.8 % (3.8-10.2); NEUT % 59.1 % (42.8-82.8); PLATELET COUNT 294 K/MM3 (134-434); RBC 3.93 M/mm3 (3.60-5.2); RDW 18.6 % (11.6-15.6); WHITE BLOOD COUNT 7.4 K/mm3 (4.0-10.0)
[2017-11-17 06:20] LABS: INR 2.1 (0.82-1.09); PROTHROMBIN TIME (PATIENT) 23.7 SEC (9.98-11.88)
[2017-11-17] MEDS: INSULIN DETEMIR 100 UNITS/ML MDV SQ SCH ×2 (06:25→22:40)
[2017-11-17] MEDS: INSULIN SLIDING SCALE (NOVOLOG) 1 VIAL SQ SCH ×3 (06:26→17:49)
[2017-11-17] MEDS: LEVOTHYROXINE NA 125 MCG TABLET (FP) PO SCH (06:27)
[2017-11-17] MEDS: AMINO ACIDS/PROTEIN HYDROLYS 30 ML LIQUID.PKT PO SCH ×2 (08:15→17:17)
--- NOTE | 2017-11-17 08:49 | PN ---
Progress Note, Physician Chief Complaint: Denies complaints Feels well has some pain in left side abdomen - Current Medication List Current Medications: Active Medications Acetaminophen (Tylenol -) 650 mg PO Q4H PRN PRN Reason: BACK PAIN Last Admin: 11/16/17 22:40 Dose: 650 mg Amino Acids (Prosource No Carb Liquid Pkt) 30 ml PO BID@0800,1730 [facility] Last Admin: 11/17/17 08:15 Dose: 30 ml Aspirin (Asa -) 81 mg PO DAILY [facility] Last Admin: 11/16/17 09:26 Dose: 81 mg Calcium Acetate (Phoslo -) 667 mg PO DAILY [facility] Last Admin: 11/16/17 09:21 Dose: 667 mg Clotrimazole (Lotrimin 1% Cream -) 1 applic TP BID [facility] Last Admin: 11/16/17 22:41 Dose: Not Given Cyanocobalamin (Vitamin B12 -) 100 mcg PO DAILY [facility] Last Admin: 11/16/17 09:26 Dose: 100 mcg Diphenhydramine HCl (Benadryl -) 25 mg PO HS PRN PRN Reason: INSOMNIA Last Admin: 11/16/17 22:40 Dose: 25 mg Docusate Sodium (Colace -) 100 mg PO DAILY [facility] Last Admin: 11/16/17 09:25 Dose: Not Given IV Flush (Kate-Cath Flush) 10 ml IVPUSH PRN PRN PRN Reason: Protocol Tigecycline 50 mg/ Dextrose 100 mls @ 100 mls/hr IVPB BID [facility] PRN Reason: Protocol Last Admin: 11/16/17 22:40 Dose: 100 mls/hr Daptomycin 500 mg/ Sodium (Chloride) 100 mls @ 200 mls/hr IVPB Q48H [facility] PRN Reason: Protocol Last Admin: 11/16/17 15:48 Dose: 200 mls/hr Insulin Aspart (Novolog Vial Sliding Scale -) 1 vial SQ TIDAC [facility] PRN Reason: Protocol Last Admin: 11/17/17 06:26 Dose: Not Given Insulin Detemir (Levemir Vial) 16 units SQ BID@0700,2200 [facility] Last Admin: 11/17/17 06:25 Dose: Not Given Lactobacillus Acidophilus (Bacid -) 1 tab PO DAILY [facility] Last Admin: 11/16/17 09:26 Dose: 1 tab Levothyroxine Sodium (Synthroid -) 125 mcg PO DAILY@0700 [facility] Last Admin: 11/17/17 06:27 Dose: 125 mcg Metoprolol Tartrate (Lopressor -) 12.5 mg PO DAILY [facility] Last Admin: 11/16/17 09:21 Dose: 12.5 mg Nitroglycerin (Nitrostat -) 0.4 mg SL DAILY PRN PRN Reason: FOR CHEST PAIN Nystatin (Nystop Powder -) 1 applic TP DAILY [facility] Last Admin: 11/16/17 10:58 Dose: Not Given Ondansetron HCl (Zofran Injection) 4 mg IVPB Q6H PRN PRN Reason: NAUSEA Last Admin: 11/15/17 11:51 Dose: 4 mg Pantoprazole Sodium (Protonix -) 40 mg PO DAILY [facility] Last Admin: 11/16/17 09:27 Dose: 40 mg Polyethylene Glycol (Miralax (For Daily Use) -) 17 gm PO DAILY [facility] Last Admin: 11/16/17 09:27 Dose: Not Given Senna (Senna -) 1 tab PO HS [facility] Last Admin: 11/16/17 22:41 Dose: Not Given Warfarin Sodium (Coumadin -) 3 mg PO DAILY@1800 [facility] Last Admin: 11/16/17 17:33 Dose: 3 mg - Objective Vital Signs: Vital Signs Temperature 98.1 F 11/17/17 06:00 Pulse Rate 94 H 11/17/17 06:00 Respiratory Rate 18 11/17/17 06:00 Blood Pressure 105/72 11/17/17 06:00 O2 Sat by Pulse Oximetry (%) 100 11/16/17 21:00 Constitutional: Yes: No Distress Cardiovascular: Yes: Regular Rate and Rhythm Respiratory: Yes: CTA Bilaterally Gastrointestinal: Yes: Normal Bowel Sounds, Soft. No: Tenderness Extremities: Yes: Amputation Edema: No Labs: CBC, BMP 11/17/17 05:40 11/16/17 08:15 INR, PTT INR 2.10 (0.82-1.09) H D 11/17/17 05:40 Problem List - Problems (1) Cellulitis and abscess of hand Code(s): L03.119 - CELLULITIS OF UNSPECIFIED PART OF LIMB; L02.519 - CUTANEOUS ABSCESS OF UNSPECIFIED HAND (2) Anemia Code(s): D64.9 - ANEMIA, UNSPECIFIED Qualifiers: Anemia type: other cause Other causes of anemia: chronic disease, kidney (3) Atrial fibrillation Code(s): I48.91 - UNSPECIFIED ATRIAL FIBRILLATION Qualifiers: Atrial fibrillation type: unspecified Qualified Code(s): I48.91 - Unspecified atrial fibrillation (4) DM type 2 causing complication Code(s): E11.8 - TYPE 2 DIABETES MELLITUS WITH UNSPECIFIED COMPLICATIONS (5) ESRD (end stage renal disease) on dialysis Code(s): N18.6 - END STAGE RENAL DISEASE; Z99.2 - DEPENDENCE ON RENAL DIALYSIS Assessment/Plan Abx per ID-- needs total 6 weeks-- Dapto +Tigecil-- spoke with nurse-- needs picc line for antibiotics-- Tunneled cath INR therapeutic continue other meds monitor bgm-- on Levemir dc planning-- likely [facility]-- will need to get Daptomycin available prior to discharge- .She will have transport from [place] to dialysis 3 days a week pain control dialysis per renal will follow BP stable Prostat BID per case investigator note-- medication will be available next Tuesday Resume Coumadin
[2017-11-17] MEDS: DOCUSATE SODIUM 100 MG CAPSULE (FP) PO SCH (09:23)
[2017-11-17] MEDS: POLYETHYLENE GLYCOL 3350 119 GM BTL PO SCH (09:23)
[2017-11-17] MEDS ORDERED: PT OWN MED DRAWER 7, Y5N ONE (09:29)
[2017-11-17] MEDS: TIGECYCLINE 50 MG in DEXTROSE 5%-WATER - 100 ML IVPB SCH ×2 (09:34→22:11)
[2017-11-17] MEDS: CYANOCOBALAMIN (VITAMIN B-12) 100 MCG TABLET PO SCH (09:34)
[2017-11-17] MEDS: CALCIUM ACETATE 667 MG CAPSULE (FP) PO SCH (09:34)
[2017-11-17] MEDS: ASPIRIN 81 MG CHEWABLE TABLETS PO SCH (09:35)
[2017-11-17] MEDS: CLOTRIMAZOLE 1% CREAM 15 GM TUBE TP SCH (09:35)
[2017-11-17] MEDS: METOPROLOL TARTRATE 25 MG TABLET (FP) PO SCH (09:35)
[2017-11-17] MEDS: PANTOPRAZOLE 40 MG TABLET (FP) PO SCH (09:35)
[2017-11-17] MEDS: NYSTATIN POWDER 100,000 UNITS/GM - 15 GM TOPICAL POWDER TP SCH (09:35)
[2017-11-17] MEDS: LACTOBACILLUS ACIDOPHILUS 1 EACH TAB (FP) PO SCH (09:35)
[2017-11-17] MEDS: CLOTRIMAZOLE/BETAMET DIPROP 15 GM TUBE TP SCH ×2 (10:00→22:08)
[2017-11-17] MEDS: ACETAMINOPHEN 325 MG TABLET (FP) PO PRN ×2 (10:23→22:18)
--- NOTE | 2017-11-17 11:48 | PN ---
Progress Note (short form) - Note Progress Note: Renal follow up for ESRD on HD Pt seen and examined at the bedside continues to have discomfort in the left LQ no sob, chest pain hand pain is controlled with oral meds s/p dialysis yesterday Vital Signs Temperature 97.8 F 11/17/17 10:00 Pulse Rate 85 11/17/17 10:00 Respiratory Rate 18 11/17/17 10:00 Blood Pressure 143/79 11/17/17 10:00 O2 Sat by Pulse Oximetry (%) 100 11/17/17 09:00 Intake & Output 11/14/17 11/15/17 11/16/17 11/17/17 23:59 23:59 23:59 23:59 Intake Total 375 160 340 350 Balance 375 160 340 350 NAD RRR Right AKA left hand in dressing CBC, BMP 11/17/17 05:40 11/16/17 08:15 Current Medications Acetaminophen (Tylenol -) 650 mg PO Q4H PRN PRN Reason: BACK PAIN Last Admin: 11/17/17 10:23 Dose: 650 mg Amino Acids (Prosource No Carb Liquid Pkt) 30 ml PO BID@0800,1730 [facility] Last Admin: 11/17/17 08:15 Dose: 30 ml Aspirin (Asa -) 81 mg PO DAILY [facility] Last Admin: 11/17/17 09:35 Dose: 81 mg Calcium Acetate (Phoslo -) 667 mg PO DAILY [facility] Last Admin: 11/17/17 09:34 Dose: 667 mg Clotrimazole (Lotrisone Cream (Small Tube)) 1 applic TP BID [facility] Last Admin: 11/17/17 10:00 Dose: Not Given Cyanocobalamin (Vitamin B12 -) 100 mcg PO DAILY [facility] Last Admin: 11/17/17 09:34 Dose: 100 mcg Diphenhydramine HCl (Benadryl -) 25 mg PO HS PRN PRN Reason: INSOMNIA Last Admin: 11/16/17 22:40 Dose: 25 mg Docusate Sodium (Colace -) 100 mg PO DAILY [facility] Last Admin: 11/17/17 09:23 Dose: Not Given IV Flush (Kate-Cath Flush) 10 ml IVPUSH PRN PRN PRN Reason: Protocol Tigecycline 50 mg/ Dextrose 100 mls @ 100 mls/hr IVPB BID [facility] PRN Reason: Protocol Last Admin: 11/17/17 09:34 Dose: 100 mls/hr Daptomycin 500 mg/ Sodium (Chloride) 100 mls @ 200 mls/hr IVPB Q48H [facility] PRN Reason: Protocol Last Admin: 11/16/17 15:48 Dose: 200 mls/hr Insulin Aspart (Novolog Vial Sliding Scale -) 1 vial SQ TIDAC [facility] PRN Reason: Protocol Last Admin: 11/17/17 11:20 Dose: Not Given Insulin Detemir (Levemir Vial) 16 units SQ BID@0700,2200 [facility] Last Admin: 11/17/17 06:25 Dose: Not Given Lactobacillus Acidophilus (Bacid -) 1 tab PO DAILY [facility] Last Admin: 11/17/17 09:35 Dose: 1 tab Levothyroxine Sodium (Synthroid -) 125 mcg PO DAILY@0700 [facility] Last Admin: 11/17/17 06:27 Dose: 125 mcg Metoprolol Tartrate (Lopressor -) 12.5 mg PO DAILY [facility] Last Admin: 11/17/17 09:35 Dose: 12.5 mg Nitroglycerin (Nitrostat -) 0.4 mg SL DAILY PRN PRN Reason: FOR CHEST PAIN Nystatin (Nystop Powder -) 1 applic TP DAILY [facility] Last Admin: 11/17/17 09:35 Dose: Not Given Ondansetron HCl (Zofran Injection) 4 mg IVPB Q6H PRN PRN Reason: NAUSEA Last Admin: 11/15/17 11:51 Dose: 4 mg Pantoprazole Sodium (Protonix -) 40 mg PO DAILY [facility] Last Admin: 11/17/17 09:35 Dose: 40 mg Polyethylene Glycol (Miralax (For Daily Use) -) 17 gm PO DAILY [facility] Last Admin: 11/17/17 09:23 Dose: Not Given Senna (Senna -) 1 tab PO HS [facility] Last Admin: 11/16/17 22:41 Dose: Not Given 72 year old woman with PMhx of ESRD on HD, Hypertension, DM on Insulin, PVD who presented with worsening hand pain. #ESRD on HD no acute indication for dialysis today next treatment planned for tomorrow #Hand ischemia/Pain/Collection s/p sugical intervention and drainage of fluid collection vultures grew VRE and Ecoli will continue daptomycin with Hd x 4 more week continue tigecycline IV via picc or tunneled central line #Abd pain secondary to subcutaneous hematoma US showed no collection continue supportive care pain control Hgb stable Wan Cruz DO
[2017-11-17] MEDS: SENNOSIDES 8.6MG TABLET (FP) PO SCH (22:10)
[2017-11-17] MEDS: diphenhydrAMINE HCL 25 MG CAPSULE (FP) PO PRN (22:18)
[2017-11-18] MEDS ORDERED: HEPARIN NA (PORCINE) 5,000 UNITS/ML 1ML VIAL IVPUSH ONE (06:00)
[2017-11-18] MEDS: INSULIN DETEMIR 100 UNITS/ML MDV SQ SCH ×2 (06:05→21:17)
[2017-11-18] MEDS: INSULIN SLIDING SCALE (NOVOLOG) 1 VIAL SQ SCH ×3 (06:05→16:05)
[2017-11-18 06:41] LABS: INR 1.91 (0.82-1.09); PROTHROMBIN TIME (PATIENT) 21.6 SEC (9.98-11.88)
[2017-11-18] MEDS: LEVOTHYROXINE NA 125 MCG TABLET (FP) PO SCH (06:56)
--- NOTE | 2017-11-18 07:46 | PN ---
Progress Note (short form) - Note Progress Note: Renal follow up for ESRD on HD Pt seen and examined at the bedside awake and alert no acute complaints no sob, chest pain, abd pain for dialysis today Vital Signs Temperature 97.9 F 11/18/17 02:00 Pulse Rate 100 H 11/18/17 06:00 Respiratory Rate 20 11/18/17 06:00 Blood Pressure 135/80 11/18/17 06:00 O2 Sat by Pulse Oximetry (%) 99 11/17/17 20:34 Intake & Output 11/15/17 11/16/17 11/17/17 11/18/17 23:59 23:59 23:59 23:59 Intake Total 160 340 350 340 Balance 160 340 350 340 NAD RRR Right AKA left hand in dressing CBC, BMP 11/17/17 05:40 11/16/17 08:15 Current Medications Acetaminophen (Tylenol -) 650 mg PO Q4H PRN PRN Reason: BACK PAIN Last Admin: 11/17/17 22:18 Dose: 650 mg Amino Acids (Prosource No Carb Liquid Pkt) 30 ml PO BID@0800,1730 [facility] Last Admin: 11/17/17 17:17 Dose: 30 ml Aspirin (Asa -) 81 mg PO DAILY [facility] Last Admin: 11/17/17 09:35 Dose: 81 mg Calcium Acetate (Phoslo -) 667 mg PO DAILY [facility] Last Admin: 11/17/17 09:34 Dose: 667 mg Clotrimazole (Lotrisone Cream (Small Tube)) 1 applic TP BID [facility] Last Admin: 11/17/17 22:08 Dose: 1 applic Cyanocobalamin (Vitamin B12 -) 100 mcg PO DAILY [facility] Last Admin: 11/17/17 09:34 Dose: 100 mcg Diphenhydramine HCl (Benadryl -) 25 mg PO HS PRN PRN Reason: INSOMNIA Last Admin: 11/17/17 22:18 Dose: 25 mg Docusate Sodium (Colace -) 100 mg PO DAILY [facility] Last Admin: 11/17/17 09:23 Dose: Not Given Heparin Sodium (Porcine) (Heparin -) 1,000 unit IVPUSH ONCE ONE Stop: 11/18/17 06:01 IV Flush (Kate-Cath Flush) 10 ml IVPUSH PRN PRN PRN Reason: Protocol Tigecycline 50 mg/ Dextrose 100 mls @ 100 mls/hr IVPB BID [facility] PRN Reason: Protocol Last Admin: 11/17/17 22:11 Dose: 100 mls/hr Daptomycin 500 mg/ Sodium (Chloride) 100 mls @ 200 mls/hr IVPB Q48H [facility] PRN Reason: Protocol Last Admin: 11/16/17 15:48 Dose: 200 mls/hr Insulin Aspart (Novolog Vial Sliding Scale -) 1 vial SQ TIDAC [facility] PRN Reason: Protocol Last Admin: 11/18/17 06:05 Dose: Not Given Insulin Detemir (Levemir Vial) 16 units SQ BID@0700,2200 [facility] Last Admin: 11/18/17 06:05 Dose: Not Given Lactobacillus Acidophilus (Bacid -) 1 tab PO DAILY [facility] Last Admin: 11/17/17 09:35 Dose: 1 tab Levothyroxine Sodium (Synthroid -) 125 mcg PO DAILY@0700 [facility] Last Admin: 11/18/17 06:56 Dose: 125 mcg Metoprolol Tartrate (Lopressor -) 12.5 mg PO DAILY [facility] Last Admin: 11/17/17 09:35 Dose: 12.5 mg Nitroglycerin (Nitrostat -) 0.4 mg SL DAILY PRN PRN Reason: FOR CHEST PAIN Nystatin (Nystop Powder -) 1 applic TP DAILY [facility] Last Admin: 11/17/17 09:35 Dose: Not Given Ondansetron HCl (Zofran Injection) 4 mg IVPB Q6H PRN PRN Reason: NAUSEA Last Admin: 11/15/17 11:51 Dose: 4 mg Pantoprazole Sodium (Protonix -) 40 mg PO DAILY [facility] Last Admin: 11/17/17 09:35 Dose: 40 mg Polyethylene Glycol (Miralax (For Daily Use) -) 17 gm PO DAILY [facility] Last Admin: 11/17/17 09:23 Dose: Not Given Senna (Senna -) 1 tab PO HS [facility] Last Admin: 11/17/17 22:10 Dose: Not Given Warfarin Sodium (Coumadin -) 2 mg PO DAILY@1800 [facility] 72 year old woman with PMhx of ESRD on HD, Hypertension, DM on Insulin, PVD who presented with worsening hand pain. #ESRD on HD dialysis today with UF as tolerated dose all meds for intermittent HD #Hand ischemia/Pain/Collection will continue wound care and IV Abx will mcfp IV access placement for Abx #Abd pain secondary to subcutaneous hematoma US showed no collection continue supportive care pain control Hgb stable Wan Cruz DO
[2017-11-18] MEDS: AMINO ACIDS/PROTEIN HYDROLYS 30 ML LIQUID.PKT PO SCH ×2 (08:45→16:41)
[2017-11-18] MEDS ORDERED: PT OWN MED DRAWER 7, Y5N ONE ×3 (09:42→20:13)
--- NOTE | 2017-11-18 09:45 | PN ---
Progress Note, Physician Chief Complaint: patient seen and examined today. Chart reviewed events noted Comfortable No new issues--except still having discomfort--abdominal area Blood sugar readings reviewed--- has episode of hypoglycemia--this morning - Current Medication List Current Medications: Active Medications Acetaminophen (Tylenol -) 650 mg PO Q4H PRN PRN Reason: BACK PAIN Last Admin: 11/17/17 22:18 Dose: 650 mg Amino Acids (Prosource No Carb Liquid Pkt) 30 ml PO BID@0800,1730 [facility] Last Admin: 11/18/17 08:45 Dose: 30 ml Aspirin (Asa -) 81 mg PO DAILY [facility] Last Admin: 11/17/17 09:35 Dose: 81 mg Calcium Acetate (Phoslo -) 667 mg PO DAILY [facility] Last Admin: 11/17/17 09:34 Dose: 667 mg Clotrimazole (Lotrisone Cream (Small Tube)) 1 applic TP BID [facility] Last Admin: 11/17/17 22:08 Dose: 1 applic Cyanocobalamin (Vitamin B12 -) 100 mcg PO DAILY [facility] Last Admin: 11/17/17 09:34 Dose: 100 mcg Diphenhydramine HCl (Benadryl -) 25 mg PO HS PRN PRN Reason: INSOMNIA Last Admin: 11/17/17 22:18 Dose: 25 mg Docusate Sodium (Colace -) 100 mg PO DAILY [facility] Last Admin: 11/17/17 09:23 Dose: Not Given Heparin Sodium (Porcine) (Heparin -) 1,000 unit IVPUSH ONCE ONE Stop: 11/18/17 06:01 IV Flush (Kate-Cath Flush) 10 ml IVPUSH PRN PRN PRN Reason: Protocol Tigecycline 50 mg/ Dextrose 100 mls @ 100 mls/hr IVPB BID [facility] PRN Reason: Protocol Last Admin: 11/17/17 22:11 Dose: 100 mls/hr Daptomycin 500 mg/ Sodium (Chloride) 100 mls @ 200 mls/hr IVPB Q48H [facility] PRN Reason: Protocol Last Admin: 11/16/17 15:48 Dose: 200 mls/hr Insulin Aspart (Novolog Vial Sliding Scale -) 1 vial SQ TIDAC [facility] PRN Reason: Protocol Last Admin: 11/18/17 06:05 Dose: Not Given Insulin Detemir (Levemir Vial) 16 units SQ BID@0700,2200 [facility] Last Admin: 11/18/17 06:05 Dose: Not Given Lactobacillus Acidophilus (Bacid -) 1 tab PO DAILY [facility] Last Admin: 11/17/17 09:35 Dose: 1 tab Levothyroxine Sodium (Synthroid -) 125 mcg PO DAILY@0700 [facility] Last Admin: 11/18/17 06:56 Dose: 125 mcg Metoprolol Tartrate (Lopressor -) 12.5 mg PO DAILY [facility] Last Admin: 11/17/17 09:35 Dose: 12.5 mg Nitroglycerin (Nitrostat -) 0.4 mg SL DAILY PRN PRN Reason: FOR CHEST PAIN Nystatin (Nystop Powder -) 1 applic TP DAILY [facility] Last Admin: 11/17/17 09:35 Dose: Not Given Ondansetron HCl (Zofran Injection) 4 mg IVPB Q6H PRN PRN Reason: NAUSEA Last Admin: 11/15/17 11:51 Dose: 4 mg Pantoprazole Sodium (Protonix -) 40 mg PO DAILY [facility] Last Admin: 11/17/17 09:35 Dose: 40 mg Polyethylene Glycol (Miralax (For Daily Use) -) 17 gm PO DAILY [facility] Last Admin: 11/17/17 09:23 Dose: Not Given Senna (Senna -) 1 tab PO HS [facility] Last Admin: 11/17/17 22:10 Dose: Not Given Warfarin Sodium (Coumadin -) 2 mg PO DAILY@1800 [facility] - Objective Vital Signs: Vital Signs Temperature 97.9 F 11/18/17 02:00 Pulse Rate 100 H 11/18/17 06:00 Respiratory Rate 20 11/18/17 06:00 Blood Pressure 135/80 11/18/17 06:00 O2 Sat by Pulse Oximetry (%) 99 11/17/17 20:34 Constitutional: Yes: No Distress, Calm Eyes: Yes: Conjunctiva Clear Neck: Yes: Supple Cardiovascular: Yes: Regular Rate and Rhythm Respiratory: Yes: Diminished Gastrointestinal: Yes: Soft, Tenderness (--left side of her abdomen--- indurated site) Edema: No Neurological: Yes: Alert Psychiatric: Yes: Alert Labs: CBC, BMP 11/17/17 05:40 11/16/17 08:15 INR, PTT INR 1.91 (0.82-1.09) H 11/18/17 05:00 Problem List - Problems (1) Cellulitis and abscess of hand Code(s): L03.119 - CELLULITIS OF UNSPECIFIED PART OF LIMB; L02.519 - CUTANEOUS ABSCESS OF UNSPECIFIED HAND (2) Anemia in ESRD (end-stage renal disease) Code(s): N18.6 - END STAGE RENAL DISEASE; D63.1 - ANEMIA IN CHRONIC KIDNEY DISEASE (3) Atrial fibrillation Code(s): I48.91 - UNSPECIFIED ATRIAL FIBRILLATION Qualifiers: Atrial fibrillation type: unspecified Qualified Code(s): I48.91 - Unspecified atrial fibrillation (4) CAD (coronary artery disease) Code(s): I25.10 - ATHSCL HEART DISEASE OF [place] CORONARY ARTERY W/O ANG PCTRS Qualifiers: Coronary Disease-Associated Artery/Lesion type: [place] artery [place] vs. transplanted heart: [place] heart Associated angina: without angina Qualified Code(s): I25.10 - Atherosclerotic heart disease of [place] coronary artery without angina pectoris (5) ESRD (end stage renal disease) on dialysis Code(s): N18.6 - END STAGE RENAL DISEASE; Z99.2 - DEPENDENCE ON RENAL DIALYSIS (6) HTN (hypertension) Code(s): I10 - ESSENTIAL (PRIMARY) HYPERTENSION Qualifiers: Hypertension type: essential hypertension Qualified Code(s): I10 - Essential (primary) hypertension (7) History of percutaneous coronary intervention Code(s): Z98.890 - OTHER SPECIFIED POSTPROCEDURAL STATES (8) Status post transmetatarsal amputation of left foot Code(s): Z89.432 - ACQUIRED ABSENCE OF LEFT FOOT (9) Unilateral AKA Code(s): Z89.619 - ACQUIRED ABSENCE OF UNSPECIFIED LEG ABOVE KNEE Assessment/Plan clinically stable Continue current treatment Antibiotics Tunnel catheter INR -- Coumadin level decrease Levemir Monitor blood sugar Surgical team to follow We will follow discussed with nursing staff also
[2017-11-18] MEDS: TIGECYCLINE 50 MG in DEXTROSE 5%-WATER - 100 ML IVPB SCH ×2 (09:50→21:18)
[2017-11-18] MEDS: PANTOPRAZOLE 40 MG TABLET (FP) PO SCH (09:50)
[2017-11-18] MEDS: CALCIUM ACETATE 667 MG CAPSULE (FP) PO SCH (09:50)
[2017-11-18] MEDS: METOPROLOL TARTRATE 25 MG TABLET (FP) PO SCH (09:50)
[2017-11-18] MEDS: ASPIRIN 81 MG CHEWABLE TABLETS PO SCH (09:50)
[2017-11-18] MEDS: DOCUSATE SODIUM 100 MG CAPSULE (FP) PO SCH ×2 (09:50→10:08)
[2017-11-18] MEDS: LACTOBACILLUS ACIDOPHILUS 1 EACH TAB (FP) PO SCH (09:50)
[2017-11-18] MEDS: POLYETHYLENE GLYCOL 3350 119 GM BTL PO SCH ×2 (09:50→10:08)
[2017-11-18] MEDS: NYSTATIN POWDER 100,000 UNITS/GM - 15 GM TOPICAL POWDER TP SCH (09:51)
[2017-11-18] MEDS: CLOTRIMAZOLE/BETAMET DIPROP 15 GM TUBE TP SCH ×2 (09:52→21:21)
[2017-11-18] MEDS: CYANOCOBALAMIN (VITAMIN B-12) 100 MCG TABLET PO SCH (12:12)
--- NOTE | 2017-11-18 13:37 | PN ---
Progress Note (short form) - Note Progress Note: CCU. 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 Atrial fib with controlled ventricular response. Patient still has mild tenderness involving the left abdominal wall. Ultrasound of abdomen did not reveal fluid collection. Active Medications Generic Name Dose Route Start Last Admin Trade Name Freq PRN Reason Stop Dose Admin Acetaminophen 650 mg 10/31/17 16:05 11/17/17 22:18 Tylenol - PO 650 mg Q4H PRN Administration BACK PAIN Amino Acids 30 ml 11/09/17 17:30 11/18/17 08:45 Prosource No Carb Liquid Pkt PO 30 ml BID@0800,1730 [facility] Administration Aspirin 81 mg 11/01/17 10:00 11/18/17 09:50 Asa - PO 81 mg DAILY [facility] Administration Calcium Acetate 667 mg 11/01/17 10:00 11/18/17 09:50 Phoslo - PO 667 mg DAILY [facility] Administration Clotrimazole 1 applic 11/17/17 10:00 11/18/17 09:52 Lotrisone Cream (Small Tube) TP 1 applic BID [facility] Administration Cyanocobalamin 100 mcg 11/01/17 10:00 11/18/17 12:12 Vitamin B12 - PO 100 mcg DAILY [facility] Administration Diphenhydramine HCl 25 mg 11/09/17 11:07 11/17/17 22:18 Benadryl - PO 25 mg HS PRN Administration INSOMNIA Docusate Sodium 100 mg 11/01/17 10:00 11/18/17 10:08 Colace - PO Not Given DAILY [facility] Heparin Sodium (Porcine) 1,000 unit 11/18/17 06:00 Heparin - IVPUSH 11/18/17 06:01 ONCE ONE IV Flush 10 ml 11/08/17 11:34 Kate-Cath Flush IVPUSH PRN PRN Protocol Tigecycline 50 mg/ Dextrose 100 mls @ 100 mls/hr 11/04/17 22:00 11/18/17 09: 50 IVPB 100 mls/hr BID [facility] Administration Protocol Daptomycin 500 mg/ Sodium 100 mls @ 200 mls/hr 11/04/17 16:00 11/16/17 15:48 Chloride IVPB 200 mls/hr Q48H [facility] Administration Protocol Insulin Aspart 1 vial 11/03/17 16:30 11/18/17 11:15 Novolog Vial Sliding Scale - SQ Not Given TIDAC [facility] Protocol Insulin Detemir 10 units 11/18/17 09:58 Levemir Vial SQ BID@0700,2200 [facility] Lactobacillus Acidophilus 1 tab 11/01/17 10:00 11/18/17 09:50 Bacid - PO 1 tab DAILY [facility] Administration Levothyroxine Sodium 125 mcg 11/01/17 07:00 11/18/17 06:56 Synthroid - PO 125 mcg DAILY@0700 [facility] Administration Metoprolol Tartrate 12.5 mg 11/01/17 10:00 11/18/17 09:50 Lopressor - PO 12.5 mg DAILY [facility] Administration Nitroglycerin 0.4 mg 10/31/17 16:05 Nitrostat - SL DAILY PRN FOR CHEST PAIN Nystatin 1 applic 11/12/17 20:45 11/18/17 09:51 Nystop Powder - TP 1 applic DAILY [facility] Administration Ondansetron HCl 4 mg 11/04/17 09:31 11/15/17 11:51 Zofran Injection IVPB 4 mg Q6H PRN Administration NAUSEA Pantoprazole Sodium 40 mg 11/01/17 10:00 11/18/17 09:50 Protonix - PO 40 mg DAILY [facility] Administration Polyethylene Glycol 17 gm 11/01/17 10:00 11/18/17 10:08 Miralax (For Daily Use) - PO Not Given DAILY [facility] Senna 1 tab 10/31/17 22:00 11/17/17 22:10 Senna - PO Not Given [facility] Warfarin Sodium 2 mg 11/18/17 18:00 Coumadin - PO DAILY@1800 [facility] 72 year old female in no distress, no pallor, clubbing, cyanosis or jaundice. Last Vital Signs Temp Pulse Resp BP Pulse Ox 98.4 F 79 20 86/60 97 11/18/17 10:00 11/18/17 12:00 11/18/17 12:00 11/18/17 12:00 11/18/17 09:00 NECK: Supple, no JVD, carotids 1-2+, no bruits heards. anterior surgical scar. HEART: PMI in the 5th ICS, LINDA I/ 2nd right ICS. no gallops heard. LUNGS; Clear on auscultation. ABDOMEN: Soft, firm and tender lesion involving the left abdominal wall, no organomegaly. EXTREMITIES: Rt. AKA, left partial amputation of the foot. partial amputation of the left index and ring finger, total amputation of the middle finger. CBC, BMP 11/17/17 05:40 11/16/17 08:15 IMPRESSION: 1. CAD s/p MD, s/p PCI/stenting. 2. Firm and tender lesion involving the left abdominal wall. 3. Hypothyroidism, on replacement therapy. 4. Diabetes mellitus with multisystem involvement 5. Permanent atrial fib. with controlled ventricular response. 6. Hypertension. 7. Severe LV systolic dysfunction. 8. ICD. Recommendations: 1. Continue current cardiac therapy. 2. Awaiting transfer to a SNF.
[2017-11-18] MEDS: DAPTOMYCIN 500 MG in SODIUM CHLORIDE 100 ML IVPB SCH (16:09)
[2017-11-18] MEDS: ACETAMINOPHEN 325 MG TABLET (FP) PO PRN ×2 (16:40→23:50)
--- NOTE | 2017-11-18 16:49 | PN ---
Progress Note, Physician Chief Complaint: left hand wet and dry gangrene History of Present Illness: 72 yo female PMH HTN, DM, HLD, PAD, CHF, A-fib, defibrillator placement,pvd, ESRD (Dialysis on M,W,F- left chest tunnel catheter ), Right AKA amputation, Left foot amputation, and Left hand 2nd-4th digit partial amputation (02/2017) who presents with left hand pain. found to have flexor tenosynovitis and a combination of wet and dry gangrene. Reports some abdominal pain. - Current Medication List Current Medications: Active Medications Acetaminophen (Tylenol -) 650 mg PO Q4H PRN PRN Reason: BACK PAIN Last Admin: 11/18/17 16:40 Dose: 650 mg Amino Acids (Prosource No Carb Liquid Pkt) 30 ml PO BID@0800,1730 [facility] Last Admin: 11/18/17 16:41 Dose: 30 ml Aspirin (Asa -) 81 mg PO DAILY [facility] Last Admin: 11/18/17 09:50 Dose: 81 mg Calcium Acetate (Phoslo -) 667 mg PO DAILY [facility] Last Admin: 11/18/17 09:50 Dose: 667 mg Clotrimazole (Lotrisone Cream (Small Tube)) 1 applic TP BID [facility] Last Admin: 11/18/17 09:52 Dose: 1 applic Cyanocobalamin (Vitamin B12 -) 100 mcg PO DAILY [facility] Last Admin: 11/18/17 12:12 Dose: 100 mcg Diphenhydramine HCl (Benadryl -) 25 mg PO HS PRN PRN Reason: INSOMNIA Last Admin: 11/17/17 22:18 Dose: 25 mg Docusate Sodium (Colace -) 100 mg PO DAILY [facility] Last Admin: 11/18/17 10:08 Dose: Not Given Heparin Sodium (Porcine) (Heparin -) 1,000 unit IVPUSH ONCE ONE Stop: 11/18/17 06:01 IV Flush (Kate-Cath Flush) 10 ml IVPUSH PRN PRN PRN Reason: Protocol Tigecycline 50 mg/ Dextrose 100 mls @ 100 mls/hr IVPB BID [facility] PRN Reason: Protocol Last Admin: 11/18/17 09:50 Dose: 100 mls/hr Daptomycin 500 mg/ Sodium (Chloride) 100 mls @ 200 mls/hr IVPB Q48H [facility] PRN Reason: Protocol Last Admin: 11/18/17 16:09 Dose: 200 mls/hr Insulin Aspart (Novolog Vial Sliding Scale -) 1 vial SQ TIDAC [facility] PRN Reason: Protocol Last Admin: 11/18/17 16:05 Dose: Not Given Insulin Detemir (Levemir Vial) 10 units SQ BID@0700,2200 [facility] Lactobacillus Acidophilus (Bacid -) 1 tab PO DAILY [facility] Last Admin: 11/18/17 09:50 Dose: 1 tab Levothyroxine Sodium (Synthroid -) 125 mcg PO DAILY@0700 [facility] Last Admin: 11/18/17 06:56 Dose: 125 mcg Metoprolol Tartrate (Lopressor -) 12.5 mg PO DAILY [facility] Last Admin: 11/18/17 09:50 Dose: 12.5 mg Nitroglycerin (Nitrostat -) 0.4 mg SL DAILY PRN PRN Reason: FOR CHEST PAIN Nystatin (Nystop Powder -) 1 applic TP DAILY [facility] Last Admin: 11/18/17 09:51 Dose: 1 applic Ondansetron HCl (Zofran Injection) 4 mg IVPB Q6H PRN PRN Reason: NAUSEA Last Admin: 11/15/17 11:51 Dose: 4 mg Pantoprazole Sodium (Protonix -) 40 mg PO DAILY [facility] Last Admin: 11/18/17 09:50 Dose: 40 mg Polyethylene Glycol (Miralax (For Daily Use) -) 17 gm PO DAILY [facility] Last Admin: 11/18/17 10:08 Dose: Not Given Senna (Senna -) 1 tab PO HS [facility] Last Admin: 11/17/17 22:10 Dose: Not Given Warfarin Sodium (Coumadin -) 2 mg PO DAILY@1800 [facility] - Objective Vital Signs: Vital Signs Temperature 98.4 F 11/18/17 10:00 Pulse Rate 79 11/18/17 14:00 Respiratory Rate 20 11/18/17 14:00 Blood Pressure 86/60 11/18/17 14:00 O2 Sat by Pulse Oximetry (%) 97 11/18/17 09:00 Vital Signs Period Temp Pulse Resp BP Sys/Cordero Pulse Ox Last 24 Hr 97.7 F-98.4 F 79-102 15-20 86-135/37-80 97-99 Constitutional: Yes: No Distress, Calm, Obese Eyes: Yes: Conjunctiva Clear, EOM Intact HENT: Yes: Atraumatic, Normocephalic Neck: Yes: Supple, Trachea Midline Cardiovascular: Yes: Regular Rate and Rhythm, S1, S2 Respiratory: Yes: Regular, CTA Bilaterally Gastrointestinal: Yes: Normal Bowel Sounds, Soft. No: Tenderness ...Rectal Exam: Yes: Deferred Wound/Incision: Yes: Clean/Dry, Dressing Removed, Unapproximated. No: Draining , Reddened Neurological: Yes: Alert, Oriented Psychiatric: Yes: Alert, Oriented Labs: CBC, BMP 11/17/17 05:40 11/16/17 08:15 INR, PTT INR 1.91 (0.82-1.09) H 11/18/17 05:00 Problem List - Problems (1) Gangrene of hand Assessment/Plan: 72 yo female MMP including Afib on coumadin, DM type 2 and ESRD, Wet gangrene and flexor tenosynovitis left middle finger, dry gangrene of index and ring fingers, poor distal circulation on duplex with PVR left arm. POD#18 s/p Left middle finger irrigation and debridement of flexor tenosynovitis and revision amputation of index middle and ring fingers. on daptomycin and tygacil per ID the wound is clean . She has some bruising of the abdominal panus on the left where she has been getting heparin Alternate abdominal site for heparin injection Warm compresses for comfort IV antibiotics per ID adequate analgesia Daily Dressing: Wound measurement: left middle open MCP [id number], clean no purulent drainage Dressing instructions: open MCP, fat emulsion, loose rolled gauze PT evaluation appreciated Can be discharged to appropriate facility Follow-up plan in discharge plan Code(s): I96 - GANGRENE, NOT ELSEWHERE CLASSIFIED (2) Flexor tenosynovitis of finger Code(s): M65.9 - SYNOVITIS AND TENOSYNOVITIS, UNSPECIFIED (3) Cellulitis and abscess of hand Code(s): L03.119 - CELLULITIS OF UNSPECIFIED PART OF LIMB; L02.519 - CUTANEOUS ABSCESS OF UNSPECIFIED HAND (4) Anemia in ESRD (end-stage renal disease) Code(s): N18.6 - END STAGE RENAL DISEASE; D63.1 - ANEMIA IN CHRONIC KIDNEY DISEASE (5) CAD (coronary artery disease) Code(s): I25.10 - ATHSCL HEART DISEASE OF [place] CORONARY ARTERY W/O ANG PCTRS Qualifiers: Coronary Disease-Associated Artery/Lesion type: [place] artery [place] vs. transplanted heart: [place] heart Associated angina: without angina Qualified Code(s): I25.10 - Atherosclerotic heart disease of [place] coronary artery without angina pectoris (6) DM type 2 causing complication Code(s): E11.8 - TYPE 2 DIABETES MELLITUS WITH UNSPECIFIED COMPLICATIONS (7) ESRD on hemodialysis Code(s): N18.6 - END STAGE RENAL DISEASE; Z99.2 - DEPENDENCE ON RENAL DIALYSIS (8) HTN (hypertension) Code(s): I10 - ESSENTIAL (PRIMARY) HYPERTENSION Qualifiers: Hypertension type: essential hypertension Qualified Code(s): I10 - Essential (primary) hypertension (9) Hypercholesterolemia Code(s): E78.00 - PURE HYPERCHOLESTEROLEMIA, UNSPECIFIED
[2017-11-18] MEDS: WARFARIN NA 2 MG TABLET (UD) PO SCH (17:48)
[2017-11-18] MEDS: SENNOSIDES 8.6MG TABLET (FP) PO SCH (21:18)
[2017-11-18] MEDS: diphenhydrAMINE HCL 25 MG CAPSULE (FP) PO PRN (23:51)
[2017-11-19] MEDS: INSULIN DETEMIR 100 UNITS/ML MDV SQ SCH ×2 (06:13→21:11)
[2017-11-19] MEDS: INSULIN SLIDING SCALE (NOVOLOG) 1 VIAL SQ SCH ×3 (06:14→17:16)
[2017-11-19] MEDS: LEVOTHYROXINE NA 125 MCG TABLET (FP) PO SCH (06:14)
[2017-11-19 09:04] LABS: ANION GAP 13 (8-16); CHLORIDE 99 mmol/L (98-107); CO2 23 mmol/L (21-32); GLUCOSE,RANDOM 77 mg/dL (74-106); PHOSPHOROUS 8.2 mg/dL (2.5-4.9); POTASSIUM 5.7 mmol/L (3.5-5.1); SODIUM 135 mmol/L (136-145)
[2017-11-19 09:07] LABS: BLOOD UREA NITROGEN 108 mg/dL (7-18); CALCIUM 6.7 mg/dL (8.5-10.1)
[2017-11-19] MEDS: METOPROLOL TARTRATE 25 MG TABLET (FP) PO SCH (09:57)
[2017-11-19] MEDS ORDERED: PT OWN MED DRAWER 7, Y5N ONE ×4 (10:02→19:38)
[2017-11-19] MEDS: AMINO ACIDS/PROTEIN HYDROLYS 30 ML LIQUID.PKT PO SCH ×2 (10:05→17:16)
[2017-11-19] MEDS: ASPIRIN 81 MG CHEWABLE TABLETS PO SCH (10:05)
[2017-11-19] MEDS: PANTOPRAZOLE 40 MG TABLET (FP) PO SCH (10:06)
[2017-11-19] MEDS: CALCIUM ACETATE 667 MG CAPSULE (FP) PO SCH (10:06)
[2017-11-19] MEDS: CYANOCOBALAMIN (VITAMIN B-12) 100 MCG TABLET PO SCH (10:06)
[2017-11-19] MEDS: DOCUSATE SODIUM 100 MG CAPSULE (FP) PO SCH (10:06)
[2017-11-19] MEDS: TIGECYCLINE 50 MG in DEXTROSE 5%-WATER - 100 ML IVPB SCH ×2 (10:06→21:11)
[2017-11-19] MEDS: POLYETHYLENE GLYCOL 3350 119 GM BTL PO SCH (10:06)
[2017-11-19] MEDS: NYSTATIN POWDER 100,000 UNITS/GM - 15 GM TOPICAL POWDER TP SCH (10:07)
[2017-11-19] MEDS: CLOTRIMAZOLE/BETAMET DIPROP 15 GM TUBE TP SCH ×2 (10:07→21:11)
[2017-11-19] MEDS: LACTOBACILLUS ACIDOPHILUS 1 EACH TAB (FP) PO SCH (10:09)
--- NOTE | 2017-11-19 10:29 | PN ---
Progress Note (short form) - Note Progress Note: Renal follow up for ESRD on HD Pt seen and examined during dialysis BP stable, goal UF is 2.5L Blood flow limited to 300, s/p heparin flush and bolous at start pt without any new complaints no fever, chills Vital Signs Temperature 97.5 F L 11/19/17 07:45 Pulse Rate 94 H 11/19/17 07:50 Respiratory Rate 18 11/19/17 07:50 Blood Pressure 129/57 11/19/17 07:50 O2 Sat by Pulse Oximetry (%) 97 11/19/17 08:26 Intake & Output 11/16/17 11/17/17 11/18/17 11/19/17 23:59 23:59 23:59 23:59 Intake Total 960 557 8028 100 Balance 020 962 8025 100 NAD RRR Right AKA left hand in dressing CBC, BMP 11/17/17 05:40 11/19/17 08:00 Current Medications Acetaminophen (Tylenol -) 650 mg PO Q4H PRN PRN Reason: BACK PAIN Last Admin: 11/18/17 23:50 Dose: 650 mg Amino Acids (Prosource No Carb Liquid Pkt) 30 ml PO BID@0800,1730 [facility] Last Admin: 11/19/17 10:05 Dose: 30 ml Aspirin (Asa -) 81 mg PO DAILY [facility] Last Admin: 11/19/17 10:05 Dose: 81 mg Calcium Acetate (Phoslo -) 667 mg PO DAILY [facility] Last Admin: 11/19/17 10:06 Dose: 667 mg Clotrimazole (Lotrisone Cream (Small Tube)) 1 applic TP BID [facility] Last Admin: 11/19/17 10:07 Dose: 1 applic Cyanocobalamin (Vitamin B12 -) 100 mcg PO DAILY [facility] Last Admin: 11/19/17 10:06 Dose: 100 mcg Diphenhydramine HCl (Benadryl -) 25 mg PO HS PRN PRN Reason: INSOMNIA Last Admin: 11/18/17 23:51 Dose: 25 mg Docusate Sodium (Colace -) 100 mg PO DAILY [facility] Last Admin: 11/19/17 10:06 Dose: Not Given Heparin Sodium (Porcine) (Heparin -) 1,000 unit IVPUSH ONCE ONE Stop: 11/18/17 06:01 IV Flush (Kate-Cath Flush) 10 ml IVPUSH PRN PRN PRN Reason: Protocol Tigecycline 50 mg/ Dextrose 100 mls @ 100 mls/hr IVPB BID [facility] PRN Reason: Protocol Last Admin: 11/19/17 10:06 Dose: 100 mls/hr Daptomycin 500 mg/ Sodium (Chloride) 100 mls @ 200 mls/hr IVPB Q48H [facility] PRN Reason: Protocol Last Admin: 11/18/17 16:09 Dose: 200 mls/hr Insulin Aspart (Novolog Vial Sliding Scale -) 1 vial SQ TIDAC [facility] PRN Reason: Protocol Last Admin: 11/19/17 06:14 Dose: Not Given Insulin Detemir (Levemir Vial) 10 units SQ BID@0700,2200 [facility] Last Admin: 11/19/17 06:13 Dose: 10 unit Lactobacillus Acidophilus (Bacid -) 1 tab PO DAILY [facility] Last Admin: 11/19/17 10:09 Dose: 1 tab Levothyroxine Sodium (Synthroid -) 125 mcg PO DAILY@0700 [facility] Last Admin: 11/19/17 06:14 Dose: 125 mcg Metoprolol Tartrate (Lopressor -) 12.5 mg PO DAILY [facility] Last Admin: 11/19/17 09:57 Dose: Not Given Nitroglycerin (Nitrostat -) 0.4 mg SL DAILY PRN PRN Reason: FOR CHEST PAIN Nystatin (Nystop Powder -) 1 applic TP DAILY [facility] Last Admin: 11/19/17 10:07 Dose: 1 applic Ondansetron HCl (Zofran Injection) 4 mg IVPB Q6H PRN PRN Reason: NAUSEA Last Admin: 11/15/17 11:51 Dose: 4 mg Pantoprazole Sodium (Protonix -) 40 mg PO DAILY [facility] Last Admin: 11/19/17 10:06 Dose: 40 mg Polyethylene Glycol (Miralax (For Daily Use) -) 17 gm PO DAILY [facility] Last Admin: 11/19/17 10:06 Dose: Not Given Senna (Senna -) 1 tab PO HS [facility] Last Admin: 11/18/17 21:18 Dose: Not Given Warfarin Sodium (Coumadin -) 2 mg PO DAILY@1800 [facility] Last Admin: 11/18/17 17:48 Dose: 2 mg 72 year old woman with PMhx of ESRD on HD, Hypertension, DM on Insulin, PVD who presented with worsening hand pain. #ESRD on HD currently getting dialysis catheter with suboptimal flow will ask vascular to see patient to access catheter will extend treatment time by 30 mins to day to improve clearance dose all meds for intermittent HD #Hand ischemia/Pain/Collection will continue wound care and IV Abx will protein specialist IV access placement for Abx will re-dose Daptomycin today following dialysis Wan Cruz DO
[2017-11-19] MEDS ORDERED: DAPTOMYCIN 500 MG in SODIUM CHLORIDE 50 ML IVPB ONE (10:32)
--- NOTE | 2017-11-19 10:57 | PN ---
Progress Note, Physician Chief Complaint: Denies complaints Feels well - Current Medication List Current Medications: Active Medications Acetaminophen (Tylenol -) 650 mg PO Q4H PRN PRN Reason: BACK PAIN Last Admin: 11/18/17 23:50 Dose: 650 mg Amino Acids (Prosource No Carb Liquid Pkt) 30 ml PO BID@0800,1730 [facility] Last Admin: 11/19/17 10:05 Dose: 30 ml Aspirin (Asa -) 81 mg PO DAILY [facility] Last Admin: 11/19/17 10:05 Dose: 81 mg Calcium Acetate (Phoslo -) 667 mg PO DAILY [facility] Last Admin: 11/19/17 10:06 Dose: 667 mg Clotrimazole (Lotrisone Cream (Small Tube)) 1 applic TP BID [facility] Last Admin: 11/19/17 10:07 Dose: 1 applic Cyanocobalamin (Vitamin B12 -) 100 mcg PO DAILY [facility] Last Admin: 11/19/17 10:06 Dose: 100 mcg Diphenhydramine HCl (Benadryl -) 25 mg PO HS PRN PRN Reason: INSOMNIA Last Admin: 11/18/17 23:51 Dose: 25 mg Docusate Sodium (Colace -) 100 mg PO DAILY [facility] Last Admin: 11/19/17 10:06 Dose: Not Given Heparin Sodium (Porcine) (Heparin -) 1,000 unit IVPUSH ONCE ONE Stop: 11/18/17 06:01 IV Flush (Kate-Cath Flush) 10 ml IVPUSH PRN PRN PRN Reason: Protocol Tigecycline 50 mg/ Dextrose 100 mls @ 100 mls/hr IVPB BID [facility] PRN Reason: Protocol Last Admin: 11/19/17 10:06 Dose: 100 mls/hr Daptomycin 500 mg/ Sodium (Chloride) 100 mls @ 200 mls/hr IVPB Q48H [facility] PRN Reason: Protocol Last Admin: 11/18/17 16:09 Dose: 200 mls/hr Daptomycin 500 mg/ Sodium (Chloride) 50 mls @ 50 mls/hr IVPB ONCE ONE PRN Reason: Protocol Stop: 11/19/17 11:31 Insulin Aspart (Novolog Vial Sliding Scale -) 1 vial SQ TIDAC [facility] PRN Reason: Protocol Last Admin: 11/19/17 06:14 Dose: Not Given Insulin Detemir (Levemir Vial) 10 units SQ BID@0700,2200 [facility] Last Admin: 11/19/17 06:13 Dose: 10 unit Lactobacillus Acidophilus (Bacid -) 1 tab PO DAILY [facility] Last Admin: 11/19/17 10:09 Dose: 1 tab Levothyroxine Sodium (Synthroid -) 125 mcg PO DAILY@0700 [facility] Last Admin: 11/19/17 06:14 Dose: 125 mcg Metoprolol Tartrate (Lopressor -) 12.5 mg PO DAILY [facility] Last Admin: 11/19/17 09:57 Dose: Not Given Nitroglycerin (Nitrostat -) 0.4 mg SL DAILY PRN PRN Reason: FOR CHEST PAIN Nystatin (Nystop Powder -) 1 applic TP DAILY [facility] Last Admin: 11/19/17 10:07 Dose: 1 applic Ondansetron HCl (Zofran Injection) 4 mg IVPB Q6H PRN PRN Reason: NAUSEA Last Admin: 11/15/17 11:51 Dose: 4 mg Pantoprazole Sodium (Protonix -) 40 mg PO DAILY [facility] Last Admin: 11/19/17 10:06 Dose: 40 mg Polyethylene Glycol (Miralax (For Daily Use) -) 17 gm PO DAILY [facility] Last Admin: 11/19/17 10:06 Dose: Not Given Senna (Senna -) 1 tab PO HS [facility] Last Admin: 11/18/17 21:18 Dose: Not Given Warfarin Sodium (Coumadin -) 2 mg PO DAILY@1800 [facility] Last Admin: 11/18/17 17:48 Dose: 2 mg - Objective Vital Signs: Vital Signs Temperature 97.5 F L 11/19/17 07:45 Pulse Rate 94 H 11/19/17 07:50 Respiratory Rate 18 11/19/17 07:50 Blood Pressure 129/57 11/19/17 07:50 O2 Sat by Pulse Oximetry (%) 97 11/19/17 08:26 Constitutional: Yes: No Distress Cardiovascular: Yes: Regular Rate and Rhythm Respiratory: Yes: Diminished Gastrointestinal: Yes: Normal Bowel Sounds, Soft. No: Tenderness Extremities: Yes: Amputation Edema: No Labs: CBC, BMP 11/17/17 05:40 11/19/17 08:00 INR, PTT INR 1.91 (0.82-1.09) H 11/18/17 05:00 Problem List - Problems (1) Cellulitis and abscess of hand Code(s): L03.119 - CELLULITIS OF UNSPECIFIED PART OF LIMB; L02.519 - CUTANEOUS ABSCESS OF UNSPECIFIED HAND (2) Anemia Code(s): D64.9 - ANEMIA, UNSPECIFIED Qualifiers: Anemia type: other cause Other causes of anemia: chronic disease, kidney (3) Atrial fibrillation Code(s): I48.91 - UNSPECIFIED ATRIAL FIBRILLATION Qualifiers: Atrial fibrillation type: unspecified Qualified Code(s): I48.91 - Unspecified atrial fibrillation (4) DM type 2 causing complication Code(s): E11.8 - TYPE 2 DIABETES MELLITUS WITH UNSPECIFIED COMPLICATIONS Qualifiers: Qualified Code(s): E11.8 - Type 2 diabetes mellitus with unspecified complications; Z79.4 - termite control service representative (current) use of insulin; Z79.4 - intermediate ( current) use of insulin; Z79.4 - intermediate (current) use of insulin; Z79.4 - termite control service representative (current) use of insulin (5) ESRD (end stage renal disease) on dialysis Code(s): N18.6 - END STAGE RENAL DISEASE; Z99.2 - DEPENDENCE ON RENAL DIALYSIS Assessment/Plan Abx per ID-- needs total 6 weeks-- Dapto +Tigecil-- spoke with nurse-- needs picc line for antibiotics-- Tunneled cath continue other meds monitor bgm-- on Levemir dc planning-- likely [facility]-- will need to get Daptomycin available prior to discharge- .She will have transport from [place] to dialysis 3 days a week pain control dialysis per renal will follow BP stable Prostat BID per correctional case manager note-- medication will be available next Tuesday Resume Coumadin
[2017-11-19] MEDS: ACETAMINOPHEN 325 MG TABLET (FP) PO PRN ×2 (12:55→18:45)
--- NOTE | 2017-11-19 14:11 | PN ---
Progress Note (short form) - Note Progress Note: Covering for Dr. Swenson: Patient with multiple medical problems including DM, afib, ESRD on HD, PVD s/p previous amputations, initially seen with wet and dry gangrene of several fingers of left hand with partial auto-amputations evolving. POD19 s/p completion amputation left 2nd and 4th fingers at PIP joints for dry gangrene, amputation 3rd finger at MCP joint for wet gangrene and flexor tenosynovitis Following for wound care, daily dressing changes Pt stable, surgically ready for transfer to rehab facility A&O well-nourished, comfortable left hand with dressing intact and clean moving arm well eating, tolerating diet dressing changed: index and ring fingers with sutures intact at distal ends of amputations, small portion of black dry eschar on index stump, even less black edges at sutures on ring finger stump; middle finger with open wound, metacarpal head visible in wound, some yellowish exudate in distal thenar corner overlying small bit of visible tendon, mostly reddish base otherwise, small bit of dry black eschar on palmar edge of wound with underlying epithelialization wound irrigated with saline and blotted with gauze adaptic placed over wound bed, then folded 4x4 and tape to hold Surendra wrap used to cover this and other two stumps loosely A/P: POD19 s/p left finger amputations as above stable, doing well continue daily wound care instructions for followup in d/c plan Problem List - Problems (1) Diabetes mellitus with peripheral angiopathy with gangrene Code(s): E11.52 - TYPE 2 DIABETES W DIABETIC PERIPHERAL ANGIOPATHY W GANGRENE Qualifiers: Diabetes mellitus type: type 2 Diabetes mellitus jail insulin use: with jail use Qualified Code(s): E11.52 - Type 2 diabetes mellitus with diabetic peripheral angiopathy with gangrene; Z79.4 - senior living (current) use of insulin; Z79.4 - clinical veterinarian (current) use of insulin; Z79.4 - senior living ( current) use of insulin; Z79.4 - senior living (current) use of insulin (2) Suppurative tenosynovitis of flexor tendon of left hand Code(s): M65.142 - OTHER INFECTIVE (TENO)SYNOVITIS, LEFT HAND (3) Atrial fibrillation Code(s): I48.91 - UNSPECIFIED ATRIAL FIBRILLATION Qualifiers: Atrial fibrillation type: unspecified Qualified Code(s): I48.91 - Unspecified atrial fibrillation (4) ESRD (end stage renal disease) on dialysis Code(s): N18.6 - END STAGE RENAL DISEASE; Z99.2 - DEPENDENCE ON RENAL DIALYSIS
[2017-11-19] MEDS: WARFARIN NA 2 MG TABLET (UD) PO SCH (17:17)
[2017-11-19] MEDS: ONDANSETRON 4 MG/2 ML VIAL IVPB PRN (21:10)
[2017-11-19] MEDS: SENNOSIDES 8.6MG TABLET (FP) PO SCH (21:11)
[2017-11-20] MEDS: diphenhydrAMINE HCL 25 MG CAPSULE (FP) PO PRN ×2 (00:25→21:57)
[2017-11-20] MEDS: ACETAMINOPHEN 325 MG TABLET (FP) PO PRN ×2 (00:25→10:59)
[2017-11-20] MEDS: INSULIN DETEMIR 100 UNITS/ML MDV SQ SCH ×2 (06:02→21:51)
[2017-11-20] MEDS: LEVOTHYROXINE NA 125 MCG TABLET (FP) PO SCH (06:03)
[2017-11-20] MEDS: INSULIN SLIDING SCALE (NOVOLOG) 1 VIAL SQ SCH ×3 (06:03→16:24)
[2017-11-20 06:45] LABS: INR 2.39 (0.82-1.09)
[2017-11-20] MEDS ORDERED: PT OWN MED DRAWER 7, Y5N ONE (09:51)
[2017-11-20] MEDS: AMINO ACIDS/PROTEIN HYDROLYS 30 ML LIQUID.PKT PO SCH ×2 (10:52→17:28)
[2017-11-20] MEDS: METOPROLOL TARTRATE 25 MG TABLET (FP) PO SCH (10:53)
[2017-11-20] MEDS: LACTOBACILLUS ACIDOPHILUS 1 EACH TAB (FP) PO SCH (10:53)
[2017-11-20] MEDS: ASPIRIN 81 MG CHEWABLE TABLETS PO SCH (10:53)
[2017-11-20] MEDS: DOCUSATE SODIUM 100 MG CAPSULE (FP) PO SCH (10:53)
[2017-11-20] MEDS: NYSTATIN POWDER 100,000 UNITS/GM - 15 GM TOPICAL POWDER TP SCH (10:54)
[2017-11-20] MEDS: CLOTRIMAZOLE/BETAMET DIPROP 15 GM TUBE TP SCH ×2 (10:54→21:54)
[2017-11-20] MEDS: POLYETHYLENE GLYCOL 3350 119 GM BTL PO SCH (10:54)
[2017-11-20] MEDS: CALCIUM ACETATE 667 MG CAPSULE (FP) PO SCH (10:54)
[2017-11-20] MEDS: TIGECYCLINE 50 MG in DEXTROSE 5%-WATER - 100 ML IVPB SCH ×2 (10:55→21:49)
[2017-11-20] MEDS: CYANOCOBALAMIN (VITAMIN B-12) 100 MCG TABLET PO SCH (10:55)
[2017-11-20] MEDS: PANTOPRAZOLE 40 MG TABLET (FP) PO SCH (10:55)
--- NOTE | 2017-11-20 12:00 | PN ---
Progress Note, Physician Chief Complaint: has increased pain in left side of abdomen--soft tissue swelling warm compresses not helping her - Current Medication List Current Medications: Active Medications Acetaminophen (Tylenol -) 650 mg PO Q4H PRN PRN Reason: BACK PAIN Last Admin: 11/20/17 10:59 Dose: 650 mg Amino Acids (Prosource No Carb Liquid Pkt) 30 ml PO BID@0800,1730 [facility] Last Admin: 11/20/17 10:52 Dose: 30 ml Aspirin (Asa -) 81 mg PO DAILY [facility] Last Admin: 11/20/17 10:53 Dose: 81 mg Calcium Acetate (Phoslo -) 667 mg PO DAILY [facility] Last Admin: 11/20/17 10:54 Dose: 667 mg Clotrimazole (Lotrisone Cream (Small Tube)) 1 applic TP BID [facility] Last Admin: 11/20/17 10:54 Dose: 1 applic Cyanocobalamin (Vitamin B12 -) 100 mcg PO DAILY [facility] Last Admin: 11/20/17 10:55 Dose: 100 mcg Diphenhydramine HCl (Benadryl -) 25 mg PO HS PRN PRN Reason: INSOMNIA Last Admin: 11/20/17 00:25 Dose: 25 mg Docusate Sodium (Colace -) 100 mg PO DAILY [facility] Last Admin: 11/20/17 10:53 Dose: Not Given Heparin Sodium (Porcine) (Heparin -) 1,000 unit IVPUSH ONCE ONE Stop: 11/18/17 06:01 IV Flush (Kate-Cath Flush) 10 ml IVPUSH PRN PRN PRN Reason: Protocol Tigecycline 50 mg/ Dextrose 100 mls @ 100 mls/hr IVPB BID [facility] PRN Reason: Protocol Last Admin: 11/20/17 10:55 Dose: 100 mls/hr Daptomycin 500 mg/ Sodium (Chloride) 100 mls @ 200 mls/hr IVPB Q48H [facility] PRN Reason: Protocol Last Admin: 11/18/17 16:09 Dose: 200 mls/hr Insulin Aspart (Novolog Vial Sliding Scale -) 1 vial SQ TIDAC [facility] PRN Reason: Protocol Last Admin: 11/20/17 11:00 Dose: Not Given Insulin Detemir (Levemir Vial) 10 units SQ BID@0700,2200 [facility] Last Admin: 11/20/17 06:02 Dose: 10 unit Lactobacillus Acidophilus (Bacid -) 1 tab PO DAILY [facility] Last Admin: 11/20/17 10:53 Dose: 1 tab Levothyroxine Sodium (Synthroid -) 125 mcg PO DAILY@0700 [facility] Last Admin: 11/20/17 06:03 Dose: 125 mcg Metoprolol Tartrate (Lopressor -) 12.5 mg PO DAILY [facility] Last Admin: 11/20/17 10:53 Dose: 12.5 mg Nitroglycerin (Nitrostat -) 0.4 mg SL DAILY PRN PRN Reason: FOR CHEST PAIN Nystatin (Nystop Powder -) 1 applic TP DAILY [facility] Last Admin: 11/20/17 10:54 Dose: 1 applic Ondansetron HCl (Zofran Injection) 4 mg IVPB Q6H PRN PRN Reason: NAUSEA Last Admin: 11/19/17 21:10 Dose: 4 mg Pantoprazole Sodium (Protonix -) 40 mg PO DAILY [facility] Last Admin: 11/20/17 10:55 Dose: 40 mg Polyethylene Glycol (Miralax (For Daily Use) -) 17 gm PO DAILY [facility] Last Admin: 11/20/17 10:54 Dose: Not Given Senna (Senna -) 1 tab PO HS [facility] Last Admin: 11/19/17 21:11 Dose: Not Given Warfarin Sodium (Coumadin -) 2 mg PO DAILY@1800 [facility] Last Admin: 11/19/17 17:17 Dose: 2 mg - Objective Vital Signs: Vital Signs Temperature 97.8 F 11/20/17 10:00 Pulse Rate 70 11/20/17 10:00 Respiratory Rate 18 11/20/17 10:00 Blood Pressure 100/87 11/20/17 10:00 O2 Sat by Pulse Oximetry (%) 97 11/19/17 20:01 Constitutional: Yes: No Distress Cardiovascular: Yes: Regular Rate and Rhythm Respiratory: Yes: Diminished Gastrointestinal: Yes: Normal Bowel Sounds, Soft, Tenderness (left sided soft tissue swelling- fluctuant, induration) Extremities: Yes: Amputation Edema: Yes Labs: CBC, BMP 11/17/17 05:40 11/19/17 08:00 INR, PTT INR 2.39 (0.82-1.09) H 11/20/17 06:00 Problem List - Problems (1) Cellulitis and abscess of hand Code(s): L03.119 - CELLULITIS OF UNSPECIFIED PART OF LIMB; L02.519 - CUTANEOUS ABSCESS OF UNSPECIFIED HAND (2) Anemia Code(s): D64.9 - ANEMIA, UNSPECIFIED Qualifiers: Anemia type: other cause Other causes of anemia: chronic disease, kidney (3) Atrial fibrillation Code(s): I48.91 - UNSPECIFIED ATRIAL FIBRILLATION Qualifiers: Atrial fibrillation type: unspecified Qualified Code(s): I48.91 - Unspecified atrial fibrillation (4) DM type 2 causing complication Code(s): E11.8 - TYPE 2 DIABETES MELLITUS WITH UNSPECIFIED COMPLICATIONS Qualifiers: Diabetes mellitus correction insulin use: with exterminator helper termite use Qualified Code( s): E11.8 - Type 2 diabetes mellitus with unspecified complications; Z79.4 - roasterman (current) use of insulin; Z79.4 - [facility] (current) use of insulin; Z79.4 - roasterman (current) use of insulin; Z79.4 - roasterman (current) use of insulin (5) ESRD (end stage renal disease) on dialysis Code(s): N18.6 - END STAGE RENAL DISEASE; Z99.2 - DEPENDENCE ON RENAL DIALYSIS Assessment/Plan Abx per ID-- needs total 6 weeks-- Dapto +Tigecil-- spoke with nurse-- needs picc line for antibiotics-- Tunneled cath continue other meds monitor bgm-- on Levemir dc planning-- [facility]-- will need to get Daptomycin available prior to discharge- .She will have transport from [place] to dialysis 3 days a week pain control dialysis per renal will follow BP stable Prostat BID per shoe parts caser note-- medication will be available next Tuesday hold Coumadin - in anticipation for tunneled cath placement and possible I & D of soft tissue swelling surgical eval for left sided abdomen soft tissue swelling
--- NOTE | 2017-11-20 14:43 | PN ---
Progress Note (short form) - Note Progress Note: CCU. 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 Atrial fib with controlled ventricular response. Patient still has mild tenderness involving the left abdominal wall. Ultrasound of abdomen did not reveal fluid collection, still c/o tenderness involving the left abdominal wall , afebrile. according to her daughter she yesterday had nausea association with a rapid heart rate, currently heart rate is controlled. Active Medications Acetaminophen (Tylenol -) 650 mg PO Q4H PRN PRN Reason: BACK PAIN Last Admin: 11/20/17 10:59 Dose: 650 mg Amino Acids (Prosource No Carb Liquid Pkt) 30 ml PO BID@0800,1730 [facility] Last Admin: 11/20/17 10:52 Dose: 30 ml Aspirin (Asa -) 81 mg PO DAILY [facility] Last Admin: 11/20/17 10:53 Dose: 81 mg Calcium Acetate (Phoslo -) 667 mg PO DAILY [facility] Last Admin: 11/20/17 10:54 Dose: 667 mg Clotrimazole (Lotrisone Cream (Small Tube)) 1 applic TP BID [facility] Last Admin: 11/20/17 10:54 Dose: 1 applic Cyanocobalamin (Vitamin B12 -) 100 mcg PO DAILY [facility] Last Admin: 11/20/17 10:55 Dose: 100 mcg Diphenhydramine HCl (Benadryl -) 25 mg PO HS PRN PRN Reason: INSOMNIA Last Admin: 11/20/17 00:25 Dose: 25 mg Docusate Sodium (Colace -) 100 mg PO DAILY [facility] Last Admin: 11/20/17 10:53 Dose: Not Given Heparin Sodium (Porcine) (Heparin -) 1,000 unit IVPUSH ONCE ONE Stop: 11/18/17 06:01 IV Flush (Kate-Cath Flush) 10 ml IVPUSH PRN PRN PRN Reason: Protocol Tigecycline 50 mg/ Dextrose 100 mls @ 100 mls/hr IVPB BID [facility] PRN Reason: Protocol Last Admin: 11/20/17 10:55 Dose: 100 mls/hr Daptomycin 500 mg/ Sodium (Chloride) 100 mls @ 200 mls/hr IVPB Q48H [facility] PRN Reason: Protocol Last Admin: 11/18/17 16:09 Dose: 200 mls/hr Insulin Aspart (Novolog Vial Sliding Scale -) 1 vial SQ TIDAC [facility] PRN Reason: Protocol Last Admin: 11/20/17 11:00 Dose: Not Given Insulin Detemir (Levemir Vial) 10 units SQ BID@0700,2200 [facility] Last Admin: 11/20/17 06:02 Dose: 10 unit Lactobacillus Acidophilus (Bacid -) 1 tab PO DAILY [facility] Last Admin: 11/20/17 10:53 Dose: 1 tab Levothyroxine Sodium (Synthroid -) 125 mcg PO DAILY@0700 [facility] Last Admin: 11/20/17 06:03 Dose: 125 mcg Metoprolol Tartrate (Lopressor -) 12.5 mg PO DAILY [facility] Last Admin: 11/20/17 10:53 Dose: 12.5 mg Nitroglycerin (Nitrostat -) 0.4 mg SL DAILY PRN PRN Reason: FOR CHEST PAIN Nystatin (Nystop Powder -) 1 applic TP DAILY [facility] Last Admin: 11/20/17 10:54 Dose: 1 applic Ondansetron HCl (Zofran Injection) 4 mg IVPB Q6H PRN PRN Reason: NAUSEA Last Admin: 11/19/17 21:10 Dose: 4 mg Pantoprazole Sodium (Protonix -) 40 mg PO DAILY [facility] Last Admin: 11/20/17 10:55 Dose: 40 mg Polyethylene Glycol (Miralax (For Daily Use) -) 17 gm PO DAILY [facility] Last Admin: 11/20/17 10:54 Dose: Not Given Senna (Senna -) 1 tab PO HS [facility] Last Admin: 11/19/17 21:11 Dose: Not Given 72 year old female in no distress, no pallor, clubbing, cyanosis or jaundice. Last Vital Signs Temp Pulse Resp BP Pulse Ox 97.8 F 70 18 100/87 97 11/20/17 10:00 11/20/17 10:00 11/20/17 10:00 11/20/17 10:00 11/20/17 09:00 NECK: Supple, no JVD, carotids 1-2+, no bruits heards. anterior surgical scar. HEART: PMI in the 5th ICS, LINDA I/ 2nd right ICS. no gallops heard. LUNGS; Clear on auscultation. ABDOMEN: Soft, firm and tender lesion involving the left abdominal wall with demarcated borders.No organomegaly. EXTREMITIES: Rt. AKA, left partial amputation of the foot. partial amputation of the left index and ring finger, total amputation of the middle finger. CBC, BMP 11/17/17 05:40 11/19/17 08:00 IMPRESSION: 1. CAD s/p LA, s/p PCI/stenting. 2. persistent, firm and tender lesion involving the left abdominal wall. 3. Hypothyroidism, on replacement therapy. 4. Diabetes mellitus with multisystem involvement 5. Permanent atrial fib. with controlled ventricular response. 6. Hypertension. 7. Severe LV systolic dysfunction. 8. ICD. 9. ESRD HD. Recommendations: 1. Continue current cardiac therapy. 2. Awaiting transfer to a SNF. 3 Consider surgical evaluation of the abdominal lesion. 4. F/u BMP.
[2017-11-20] MEDS: DAPTOMYCIN 500 MG in SODIUM CHLORIDE 100 ML IVPB SCH (16:58)
[2017-11-20] MEDS: ACETAMINOPHEN 1000 MG/100 ML VIAL (NON FORMULARY) IVPB PRN ×2 (17:28→23:34)
[2017-11-20] MEDS: SENNOSIDES 8.6MG TABLET (FP) PO SCH (21:55)
[2017-11-21] MEDS ORDERED: oxyCODONE HCL 5 MG TABLET PO ONE (02:46)
[2017-11-21 05:43] LABS: BASO % 0.7 % (0-2.0); EOS % 1.4 % (0-4.5); HEMATOCRIT 40.5 % (32.4-45.2); HEMOGLOBIN 12.4 GM/dL (10.7-15.3); LYMPH % 22.4 % (8-40); MCH 29.5 pg (25.7-33.7); MCHC 30.7 g/dl (32.0-36.0); MEAN CELL VOLUME 96.1 fl (80-96); MEAN PLT VOLUME 9.2 fl (7.5-11.1); MONO % 8.1 % (3.8-10.2); NEUT % 67.4 % (42.8-82.8); PLATELET COUNT 325 K/MM3 (134-434); RBC 4.22 M/mm3 (3.60-5.2); RDW 18.9 % (11.6-15.6); WHITE BLOOD COUNT 10.3 K/mm3 (4.0-10.0)
[2017-11-21 06:04] LABS: INR 2.48 (0.82-1.09)
[2017-11-21 06:17] LABS: ANION GAP 14 (8-16); BLOOD UREA NITROGEN 88 mg/dL (7-18); CALCIUM 7.1 mg/dL (8.5-10.1); CHLORIDE 98 mmol/L (98-107); CO2 25 mmol/L (21-32); POTASSIUM 5.4 mmol/L (3.5-5.1); SGOT/AST 21 U/L (15-37); SGPT/ALT 28 U/L (12-78); SODIUM 137 mmol/L (136-145)
[2017-11-21 06:19] LABS: ALK PHOS 292 U/L (45-117); BILIRUBIN,TOTAL 0.3 mg/dL (0.2-1.0); CREATININE 5.5 mg/dL (0.55-1.02)
[2017-11-21] MEDS: LEVOTHYROXINE NA 125 MCG TABLET (FP) PO SCH (06:19)
[2017-11-21] MEDS: INSULIN DETEMIR 100 UNITS/ML MDV SQ SCH ×2 (06:23→22:24)
[2017-11-21] MEDS: INSULIN SLIDING SCALE (NOVOLOG) 1 VIAL SQ SCH ×2 (06:23→12:29)
[2017-11-21 06:25] LABS: GLUCOSE,RANDOM 47 mg/dL (74-106)
[2017-11-21] MEDS ORDERED: PT OWN MED DRAWER 7, Y5N ONE ×3 (09:14→16:56)
[2017-11-21] MEDS: DOCUSATE SODIUM 100 MG CAPSULE (FP) PO SCH (10:02)
[2017-11-21] MEDS: POLYETHYLENE GLYCOL 3350 119 GM BTL PO SCH (10:02)
[2017-11-21] MEDS: ASPIRIN 81 MG CHEWABLE TABLETS PO SCH (10:10)
[2017-11-21] MEDS: CYANOCOBALAMIN (VITAMIN B-12) 100 MCG TABLET PO SCH (10:10)
[2017-11-21] MEDS: PANTOPRAZOLE 40 MG TABLET (FP) PO SCH (10:10)
[2017-11-21] MEDS: CALCIUM ACETATE 667 MG CAPSULE (FP) PO SCH (10:10)
[2017-11-21] MEDS: LACTOBACILLUS ACIDOPHILUS 1 EACH TAB (FP) PO SCH (10:10)
[2017-11-21] MEDS: AMINO ACIDS/PROTEIN HYDROLYS 30 ML LIQUID.PKT PO SCH ×2 (10:10→17:18)
[2017-11-21] MEDS: TIGECYCLINE 50 MG in DEXTROSE 5%-WATER - 100 ML IVPB SCH ×2 (10:10→22:23)
[2017-11-21] MEDS: NYSTATIN POWDER 100,000 UNITS/GM - 15 GM TOPICAL POWDER TP SCH (10:11)
[2017-11-21] MEDS: METOPROLOL TARTRATE 25 MG TABLET (FP) PO SCH ×2 (10:17→17:19)
--- NOTE | 2017-11-21 10:26 | PN ---
Progress Note, Physician History of Present Illness: patient seen and examined today. complains of left-sided abdominal pain--- site of induration Crying due to pain requesting pain medication Chart reviewed Otherwise afebrile - Current Medication List Current Medications: Active Medications Acetaminophen (Tylenol -) 650 mg PO Q4H PRN PRN Reason: BACK PAIN Last Admin: 11/20/17 10:59 Dose: 650 mg Acetaminophen (Ofirmev Injection -) 1,000 mg IVPB Q6H PRN PRN Reason: MODERATE PAIN Last Admin: 11/20/17 23:34 Dose: 1,000 mg Amino Acids (Prosource No Carb Liquid Pkt) 30 ml PO BID@0800,1730 [facility] Last Admin: 11/21/17 10:10 Dose: 30 ml Aspirin (Asa -) 81 mg PO DAILY [facility] Last Admin: 11/21/17 10:10 Dose: 81 mg Calcium Acetate (Phoslo -) 667 mg PO DAILY [facility] Last Admin: 11/21/17 10:10 Dose: 667 mg Clotrimazole (Lotrisone Cream (Small Tube)) 1 applic TP BID [facility] Last Admin: 11/20/17 21:54 Dose: 1 applic Cyanocobalamin (Vitamin B12 -) 100 mcg PO DAILY [facility] Last Admin: 11/21/17 10:10 Dose: 100 mcg Diphenhydramine HCl (Benadryl -) 25 mg PO HS PRN PRN Reason: INSOMNIA Last Admin: 11/20/17 21:57 Dose: 25 mg Docusate Sodium (Colace -) 100 mg PO DAILY [facility] Last Admin: 11/21/17 10:02 Dose: Not Given Heparin Sodium (Porcine) (Heparin -) 1,000 unit IVPUSH ONCE ONE Stop: 11/18/17 06:01 IV Flush (Kate-Cath Flush) 10 ml IVPUSH PRN PRN PRN Reason: Protocol Tigecycline 50 mg/ Dextrose 100 mls @ 100 mls/hr IVPB BID [facility] PRN Reason: Protocol Last Admin: 11/21/17 10:10 Dose: 100 mls/hr Insulin Aspart (Novolog Vial Sliding Scale -) 1 vial SQ TIDAC [facility] PRN Reason: Protocol Last Admin: 11/21/17 06:23 Dose: Not Given Insulin Detemir (Levemir Vial) 10 units SQ BID@0700,2200 [facility] Last Admin: 11/21/17 06:23 Dose: Not Given Lactobacillus Acidophilus (Bacid -) 1 tab PO DAILY [facility] Last Admin: 11/21/17 10:10 Dose: 1 tab Levothyroxine Sodium (Synthroid -) 125 mcg PO DAILY@0700 [facility] Last Admin: 11/21/17 06:19 Dose: 125 mcg Metoprolol Tartrate (Lopressor -) 12.5 mg PO DAILY [facility] Last Admin: 11/21/17 10:17 Dose: Not Given Nitroglycerin (Nitrostat -) 0.4 mg SL DAILY PRN PRN Reason: FOR CHEST PAIN Nystatin (Nystop Powder -) 1 applic TP DAILY [facility] Last Admin: 11/21/17 10:11 Dose: 1 applic Ondansetron HCl (Zofran Injection) 4 mg IVPB Q6H PRN PRN Reason: NAUSEA Last Admin: 11/19/17 21:10 Dose: 4 mg Pantoprazole Sodium (Protonix -) 40 mg PO DAILY [facility] Last Admin: 11/21/17 10:10 Dose: 40 mg Polyethylene Glycol (Miralax (For Daily Use) -) 17 gm PO DAILY [facility] Last Admin: 11/21/17 10:02 Dose: Not Given Senna (Senna -) 1 tab PO HS [facility] Last Admin: 11/20/17 21:55 Dose: Not Given - Objective Vital Signs: Vital Signs Temperature 98.1 F 11/21/17 09:00 Pulse Rate 128 H 11/21/17 09:00 Respiratory Rate 17 11/21/17 09:00 Blood Pressure 114/91 11/21/17 09:00 O2 Sat by Pulse Oximetry (%) 97 11/20/17 21:00 Constitutional: Yes: No Distress, Mild Distress Eyes: Yes: Conjunctiva Clear Neck: Yes: Supple Cardiovascular: Yes: Regular Rate and Rhythm Respiratory: Yes: Diminished Gastrointestinal: Yes: Soft, Other (left-sided abdominal wall----increased induration--- very tender to touch) Extremities: Yes: Amputation Neurological: Yes: Alert Labs: CBC, BMP 11/21/17 05:00 11/21/17 05:00 INR, PTT INR 2.48 (0.82-1.09) H 11/21/17 05:00 Problem List - Problems (1) Cellulitis and abscess of hand Code(s): L03.119 - CELLULITIS OF UNSPECIFIED PART OF LIMB; L02.519 - CUTANEOUS ABSCESS OF UNSPECIFIED HAND (2) Anemia in ESRD (end-stage renal disease) Code(s): N18.6 - END STAGE RENAL DISEASE; D63.1 - ANEMIA IN CHRONIC KIDNEY DISEASE (3) Atrial fibrillation Code(s): I48.91 - UNSPECIFIED ATRIAL FIBRILLATION Qualifiers: Atrial fibrillation type: unspecified Qualified Code(s): I48.91 - Unspecified atrial fibrillation (4) CAD (coronary artery disease) Code(s): I25.10 - ATHSCL HEART DISEASE OF [place] CORONARY ARTERY W/O ANG PCTRS Qualifiers: Coronary Disease-Associated Artery/Lesion type: [place] artery [place] vs. transplanted heart: [place] heart Associated angina: without angina Qualified Code(s): I25.10 - Atherosclerotic heart disease of [place] coronary artery without angina pectoris (5) ESRD (end stage renal disease) on dialysis Code(s): N18.6 - END STAGE RENAL DISEASE; Z99.2 - DEPENDENCE ON RENAL DIALYSIS (6) HTN (hypertension) Code(s): I10 - ESSENTIAL (PRIMARY) HYPERTENSION Qualifiers: Hypertension type: essential hypertension Qualified Code(s): I10 - Essential (primary) hypertension (7) History of percutaneous coronary intervention Code(s): Z98.890 - OTHER SPECIFIED POSTPROCEDURAL STATES (8) Status post transmetatarsal amputation of left foot Code(s): Z89.432 - ACQUIRED ABSENCE OF LEFT FOOT (9) Unilateral AKA Code(s): Z89.619 - ACQUIRED ABSENCE OF UNSPECIFIED LEG ABOVE KNEE Assessment/Plan pain control Discussed with surgeon He will follow Oxycodone for pain for now Continue other medications Antibiotics Tunnel catheter --likely today INR -- on hold--- Monitor blood sugar discussed with sat instructor also We will follow discussed with nursing staff also.
--- NOTE | 2017-11-21 10:26 | PN ---
Progress Note (short form) - Note Progress Note: CCU. 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 Patient has increasing pain and tenderness involving the left abdominal wall. Ultrasound of abdomen did not reveal fluid collection, afebrile. no chest pain or discomfort, no SOB. atrial fib. with controlled ventricular response. Active Medications Generic Name Dose Route Start Last Admin Trade Name Freq PRN Reason Stop Dose Admin Acetaminophen 650 mg 10/31/17 16:05 11/20/17 10:59 Tylenol - PO 650 mg Q4H PRN Administration BACK PAIN Acetaminophen 1,000 mg 11/20/17 16:03 11/20/17 23:34 Ofirmev Injection - IVPB 1,000 mg Q6H PRN Administration MODERATE PAIN Amino Acids 30 ml 11/09/17 17:30 11/21/17 10:10 Prosource No Carb Liquid Pkt PO 30 ml BID@0800,1730 [facility] Administration Aspirin 81 mg 11/01/17 10:00 11/21/17 10:10 Asa - PO 81 mg DAILY [facility] Administration Calcium Acetate 667 mg 11/01/17 10:00 11/21/17 10:10 Phoslo - PO 667 mg DAILY [facility] Administration Clotrimazole 1 applic 11/17/17 10:00 11/20/17 21:54 Lotrisone Cream (Small Tube) TP 1 applic BID [facility] Administration Cyanocobalamin 100 mcg 11/01/17 10:00 11/21/17 10:10 Vitamin B12 - PO 100 mcg DAILY [facility] Administration Diphenhydramine HCl 25 mg 11/09/17 11:07 11/20/17 21:57 Benadryl - PO 25 mg HS PRN Administration INSOMNIA Docusate Sodium 100 mg 11/01/17 10:00 11/21/17 10:02 Colace - PO Not Given DAILY [facility] Heparin Sodium (Porcine) 1,000 unit 11/18/17 06:00 Heparin - IVPUSH 11/18/17 06:01 ONCE ONE IV Flush 10 ml 11/08/17 11:34 Kate-Cath Flush IVPUSH PRN PRN Protocol Tigecycline 50 mg/ Dextrose 100 mls @ 100 mls/hr 11/04/17 22:00 11/21/17 10: 10 IVPB 100 mls/hr BID [facility] Administration Protocol Insulin Aspart 1 vial 11/03/17 16:30 11/21/17 06:23 Novolog Vial Sliding Scale - SQ Not Given TIDAC [facility] Protocol Insulin Detemir 10 units 11/18/17 09:58 11/21/17 06:23 Levemir Vial SQ Not Given BID@0700,2200 [facility] Lactobacillus Acidophilus 1 tab 11/01/17 10:00 11/21/17 10:10 Bacid - PO 1 tab DAILY [facility] Administration Levothyroxine Sodium 125 mcg 11/01/17 07:00 11/21/17 06:19 Synthroid - PO 125 mcg DAILY@0700 [facility] Administration Metoprolol Tartrate 12.5 mg 11/01/17 10:00 11/21/17 10:17 Lopressor - PO Not Given DAILY [facility] Nitroglycerin 0.4 mg 10/31/17 16:05 Nitrostat - SL DAILY PRN FOR CHEST PAIN Nystatin 1 applic 11/12/17 20:45 11/21/17 10:11 Nystop Powder - TP 1 applic DAILY [facility] Administration Ondansetron HCl 4 mg 11/04/17 09:31 11/19/17 21:10 Zofran Injection IVPB 4 mg Q6H PRN Administration NAUSEA Pantoprazole Sodium 40 mg 11/01/17 10:00 11/21/17 10:10 Protonix - PO 40 mg DAILY [facility] Administration Polyethylene Glycol 17 gm 11/01/17 10:00 11/21/17 10:02 Miralax (For Daily Use) - PO Not Given DAILY [facility] Senna 1 tab 10/31/17 22:00 11/20/17 21:55 Senna - PO Not Given [facility] 72 year old female in no distress, no pallor, clubbing, cyanosis or jaundice. Last Vital Signs Temp Pulse Resp BP Pulse Ox 98.1 F 128 H 17 114/91 97 11/21/17 09:00 11/21/17 09:00 11/21/17 09:00 11/21/17 09:00 11/20/17 21:00 NECK: Supple, no JVD, carotids 1-2+, no bruits heards. anterior surgical scar. HEART: PMI in the 5th ICS, LINDA I/ 2nd right ICS. no gallops heard. LUNGS; Clear on auscultation. ABDOMEN: Soft, 2 firm lesions involving the left abdominal wall with demarcated borders. extremely tender to touch with indurated surfaces No organomegaly. EXTREMITIES: Rt. AKA, left partial amputation of the foot. partial amputation of the left index and ring finger, total amputation of the middle finger. CBC, BMP 11/21/17 05:00 11/21/17 05:00 IMPRESSION: 1. CAD s/p CO, s/p PCI/stenting. 2. Persistent, firm and extremely tender lesion involving the left abdominal wall. 3. Hypothyroidism, on replacement therapy. 4. Diabetes mellitus with multisystem involvement 5. Permanent atrial fib. with controlled ventricular response. 6. Hypertension. 7. Severe LV systolic dysfunction. 8. ICD. 9. ESRD HD. Recommendations: 1. Continue current cardiac therapy. 2. Consider surgical evaluation of the abdominal lesion.
[2017-11-21] MEDS ORDERED: HEPARIN NA (PORCINE) 5,000 UNITS/ML 1ML VIAL IVPUSH ONE (11:05)
[2017-11-21] MEDS: oxyCODONE HCL 5 MG TABLET PO PRN ×2 (11:05→22:27)
[2017-11-21] MEDS ORDERED: DAPTOMYCIN 500 MG in SODIUM CHLORIDE 50 ML IVPB SCH (11:15)
[2017-11-21] MEDS ORDERED: HEPARIN NA (PORCINE) 5,000 UNITS/ML 1ML VIAL IVPUSH SCH (11:15)
--- NOTE | 2017-11-21 11:55 | PN ---
Progress Note, Physician Chief Complaint: left hand wet and dry gangrene History of Present Illness: 72 yo female PMH HTN, DM, HLD, PAD, CHF, A-fib, defibrillator placement,pvd, ESRD (Dialysis on M,W,F- left chest tunnel catheter ), Right AKA amputation, Left foot amputation, and Left hand 2nd-4th digit partial amputation (02/2017) who presents with left hand pain. Found to have flexor tenosynovitis and a combination of wet and dry gangrene. Reports more abdominal wall tendeness at the site of heparin injections. She is tearful this morning. - Current Medication List Current Medications: Active Medications Acetaminophen (Tylenol -) 650 mg PO Q4H PRN PRN Reason: BACK PAIN Last Admin: 11/20/17 10:59 Dose: 650 mg Acetaminophen (Ofirmev Injection -) 1,000 mg IVPB Q6H PRN PRN Reason: MODERATE PAIN Last Admin: 11/20/17 23:34 Dose: 1,000 mg Amino Acids (Prosource No Carb Liquid Pkt) 30 ml PO BID@0800,1730 [facility] Last Admin: 11/21/17 10:10 Dose: 30 ml Aspirin (Asa -) 81 mg PO DAILY [facility] Last Admin: 11/21/17 10:10 Dose: 81 mg Calcium Acetate (Phoslo -) 667 mg PO DAILY [facility] Last Admin: 11/21/17 10:10 Dose: 667 mg Clotrimazole (Lotrisone Cream (Small Tube)) 1 applic TP BID [facility] Last Admin: 11/20/17 21:54 Dose: 1 applic Cyanocobalamin (Vitamin B12 -) 100 mcg PO DAILY [facility] Last Admin: 11/21/17 10:10 Dose: 100 mcg Diphenhydramine HCl (Benadryl -) 25 mg PO HS PRN PRN Reason: INSOMNIA Last Admin: 11/20/17 21:57 Dose: 25 mg Docusate Sodium (Colace -) 100 mg PO DAILY [facility] Last Admin: 11/21/17 10:02 Dose: Not Given Heparin Sodium (Porcine) (Heparin -) 1,000 unit IVPUSH ONCE ONE Stop: 11/18/17 06:01 Heparin Sodium (Porcine) (Heparin -) 500 unit IVPUSH Q1H [facility] Stop: 11/21/17 13:16 IV Flush (Kate-Cath Flush) 10 ml IVPUSH PRN PRN PRN Reason: Protocol Tigecycline 50 mg/ Dextrose 100 mls @ 100 mls/hr IVPB BID [facility] PRN Reason: Protocol Last Admin: 11/21/17 10:10 Dose: 100 mls/hr Daptomycin 500 mg/ Sodium (Chloride) 50 mls @ 50 mls/hr IVPB MOWEFR [facility] PRN Reason: Protocol Insulin Aspart (Novolog Vial Sliding Scale -) 1 vial SQ TIDAC [facility] PRN Reason: Protocol Last Admin: 11/21/17 06:23 Dose: Not Given Insulin Detemir (Levemir Vial) 10 units SQ BID@0700,2200 [facility] Last Admin: 11/21/17 06:23 Dose: Not Given Lactobacillus Acidophilus (Bacid -) 1 tab PO DAILY [facility] Last Admin: 11/21/17 10:10 Dose: 1 tab Levothyroxine Sodium (Synthroid -) 125 mcg PO DAILY@0700 [facility] Last Admin: 11/21/17 06:19 Dose: 125 mcg Metoprolol Tartrate (Lopressor -) 12.5 mg PO DAILY [facility] Last Admin: 11/21/17 10:17 Dose: Not Given Nitroglycerin (Nitrostat -) 0.4 mg SL DAILY PRN PRN Reason: FOR CHEST PAIN Nystatin (Nystop Powder -) 1 applic TP DAILY [facility] Last Admin: 11/21/17 10:11 Dose: 1 applic Ondansetron HCl (Zofran Injection) 4 mg IVPB Q6H PRN PRN Reason: NAUSEA Last Admin: 11/19/17 21:10 Dose: 4 mg Oxycodone HCl (Roxicodone -) 5 mg PO Q6H PRN PRN Reason: PAIN LEVEL 6-10 Last Admin: 11/21/17 11:05 Dose: 5 mg Pantoprazole Sodium (Protonix -) 40 mg PO DAILY [facility] Last Admin: 11/21/17 10:10 Dose: 40 mg Polyethylene Glycol (Miralax (For Daily Use) -) 17 gm PO DAILY [facility] Last Admin: 11/21/17 10:02 Dose: Not Given Senna (Senna -) 1 tab PO HS [facility] Last Admin: 11/20/17 21:55 Dose: Not Given - Objective Vital Signs: Vital Signs Temperature 98.1 F 11/21/17 09:00 Pulse Rate 128 H 11/21/17 09:00 Respiratory Rate 17 11/21/17 09:00 Blood Pressure 114/91 11/21/17 09:00 O2 Sat by Pulse Oximetry (%) 97 11/20/17 21:00 Vital Signs Period Temp Pulse Resp BP Sys/Cordero Pulse Ox Last 24 Hr 97.8 F-98.6 F 72-128 17-20 87-121/69-91 97 Intake & Output 11/20/17 11/21/17 11/21/17 23:59 07:59 15:59 Intake Total 290 280 Balance 290 280 Intake: IVPB 50 100 Oral 240 180 Other: Voiding Method Diaper # Unmeasured Voids Void 1 Constitutional: Yes: Calm, Anxious, Mild Distress, Obese Eyes: Yes: Conjunctiva Clear, EOM Intact HENT: Yes: Atraumatic, Normocephalic Neck: Yes: Supple, Trachea Midline Cardiovascular: Yes: Regular Rate and Rhythm, S1, S2 Respiratory: Yes: Regular, CTA Bilaterally Gastrointestinal: Yes: Normal Bowel Sounds, Soft, Abdomen, Obese, Tenderness, Other (Left lateral abdomen 2 punctums with exquisitely tender at the site of hepain injection). No: Tenderness, Epigastrium, Tenderness, Rebound Genitourinary: No: CVA Tenderness - Left, CVA Tenderness - Right Musculoskeletal: No: Muscle Pain, Muscle Weakness Extremities: Yes: Amputation (lower extrmity), Other (scattered ecchymosis on arms.). No: Cool, Cyanosis Edema: No Peripheral Pulses WNL: Yes Integumentary: Yes: Bruising. No: Jaundice Wound/Incision: Yes: Clean/Dry, Well Approximated, Sutures Intact, Dressing Dry and Intact, Unapproximated (left 3rd MCP joint) Neurological: Yes: Alert, Oriented Psychiatric: Yes: Alert, Oriented Labs: CBC, BMP 11/21/17 05:00 11/21/17 05:00 INR, PTT INR 2.48 (0.82-1.09) H 11/21/17 05:00 on warfarin Microbiology 10/31/17 16:30 Hand - Left Gram Stain - Final 10/31/17 16:30 Hand - Left Wound Culture - Preliminary Klebsiella Pneumoniae - Esbl Vr Ec Faecalis 10/30/17 16:28 Blood - Peripheral Venous Blood Culture - Final NO GROWTH AFTER 5 DAYS INCUBATION 10/30/17 15:43 Blood - Peripheral Venous Blood Culture - Final NO GROWTH AFTER 5 DAYS INCUBATION Problem List - Problems (1) Abdominal wall hematoma Assessment/Plan: 72 yo female MMP including Afib on coumadin, DM type 2 and ESRD, Wet gangrene and flexor tenosynovitis left middle finger, dry gangrene of index and ring fingers, poor distal circulation on duplex with PVR left arm. POD#21 s/p Left middle finger incision and drainage of flexor tenosynovitis and revision amputation of index middle and ring fingers. on daptomycin and tygacil per ID the wound is clean. She has some bruising of the abdominal panus on the left where she has been getting heparin that has become exquisitely tender, INR 2.48 , WBC slightly elevated 10.6 no shift. Abdominal wall hematoma Ct Scan to evaluate the abdominal wall Will consider operative intervention if indicated Alternate abdominal site for heparin injection adequate analgesia Warm compressed to the area for now Left hand gangrene IV antibiotics per ID Daily Dressing: Wound measurement: left middle open MCP [id number], clean no purulent drainage Dressing instructions: open MCP, oil emulsion, loose rolled gauze PT evaluation appreciated Follow-up plan in discharge plan Code(s): S30.1XXA - CONTUSION OF ABDOMINAL WALL, INITIAL ENCOUNTER (2) Gangrene of hand Code(s): I96 - GANGRENE, NOT ELSEWHERE CLASSIFIED (3) Flexor tenosynovitis of finger Code(s): M65.9 - SYNOVITIS AND TENOSYNOVITIS, UNSPECIFIED (4) Cellulitis and abscess of hand Code(s): L03.119 - CELLULITIS OF UNSPECIFIED PART OF LIMB; L02.519 - CUTANEOUS ABSCESS OF UNSPECIFIED HAND (5) Anemia in ESRD (end-stage renal disease) Code(s): N18.6 - END STAGE RENAL DISEASE; D63.1 - ANEMIA IN CHRONIC KIDNEY DISEASE (6) CAD (coronary artery disease) Code(s): I25.10 - ATHSCL HEART DISEASE OF [place] CORONARY ARTERY W/O ANG PCTRS Qualifiers: Coronary Disease-Associated Artery/Lesion type: [place] artery [place] vs. transplanted heart: [place] heart Associated angina: without angina Qualified Code(s): I25.10 - Atherosclerotic heart disease of [place] coronary artery without angina pectoris (7) DM type 2 causing complication Code(s): E11.8 - TYPE 2 DIABETES MELLITUS WITH UNSPECIFIED COMPLICATIONS Qualifiers: Diabetes mellitus joint terminal attack controller insulin use: with correction use Qualified Code( s): E11.8 - Type 2 diabetes mellitus with unspecified complications; Z79.4 - exterminator helper termite (current) use of insulin; Z79.4 - exterminator helper termite (current) use of insulin; Z79.4 - exterminator helper termite (current) use of insulin; Z79.4 - assisted (current) use of insulin (8) ESRD on hemodialysis Code(s): N18.6 - END STAGE RENAL DISEASE; Z99.2 - DEPENDENCE ON RENAL DIALYSIS (9) HTN (hypertension) Code(s): I10 - ESSENTIAL (PRIMARY) HYPERTENSION Qualifiers: Hypertension type: essential hypertension Qualified Code(s): I10 - Essential (primary) hypertension (10) Hypercholesterolemia Code(s): E78.00 - PURE HYPERCHOLESTEROLEMIA, UNSPECIFIED
[2017-11-21] MEDS: ONDANSETRON 4 MG/2 ML VIAL IVPB PRN (11:58)
[2017-11-21] MEDS: ACETAMINOPHEN 1000 MG/100 ML VIAL (NON FORMULARY) IVPB PRN (12:19)
[2017-11-21] MEDS: CLOTRIMAZOLE/BETAMET DIPROP 15 GM TUBE TP SCH ×2 (12:28→22:24)
--- NOTE | 2017-11-21 12:35 | PN ---
Progress Note (short form) - Note Progress Note: Renal follow up for ESRD on HD Pt seen and examineds at the bedside awake and alert reports a lot of LLQ abd wall pain No N/V/D no fever, chills Vital Signs Temperature 98.1 F 11/21/17 09:00 Pulse Rate 128 H 11/21/17 09:00 Respiratory Rate 17 11/21/17 09:00 Blood Pressure 114/91 11/21/17 09:00 O2 Sat by Pulse Oximetry (%) 97 11/20/17 21:00 Intake & Output 11/18/17 11/19/17 11/20/17 11/21/17 23:59 23:59 23:59 23:59 Intake Total 1460 1060 390 280 Balance 1460 1060 390 280 NAD RRR Right AKA left hand in dressing LLQ abd wall tenderness, no masses, thickened skin CBC, BMP 11/21/17 05:00 11/21/17 05:00 Current Medications Acetaminophen (Tylenol -) 650 mg PO Q4H PRN PRN Reason: BACK PAIN Last Admin: 11/20/17 10:59 Dose: 650 mg Acetaminophen (Ofirmev Injection -) 1,000 mg IVPB Q6H PRN PRN Reason: MODERATE PAIN Last Admin: 11/20/17 23:34 Dose: 1,000 mg Amino Acids (Prosource No Carb Liquid Pkt) 30 ml PO BID@0800,1730 [facility] Last Admin: 11/21/17 10:10 Dose: 30 ml Aspirin (Asa -) 81 mg PO DAILY [facility] Last Admin: 11/21/17 10:10 Dose: 81 mg Calcium Acetate (Phoslo -) 667 mg PO DAILY [facility] Last Admin: 11/21/17 10:10 Dose: 667 mg Clotrimazole (Lotrisone Cream (Small Tube)) 1 applic TP BID [facility] Last Admin: 11/20/17 21:54 Dose: 1 applic Cyanocobalamin (Vitamin B12 -) 100 mcg PO DAILY [facility] Last Admin: 11/21/17 10:10 Dose: 100 mcg Diphenhydramine HCl (Benadryl -) 25 mg PO HS PRN PRN Reason: INSOMNIA Last Admin: 11/20/17 21:57 Dose: 25 mg Docusate Sodium (Colace -) 100 mg PO DAILY [facility] Last Admin: 11/21/17 10:02 Dose: Not Given Heparin Sodium (Porcine) (Heparin -) 1,000 unit IVPUSH ONCE ONE Stop: 11/18/17 06:01 Heparin Sodium (Porcine) (Heparin -) 500 unit IVPUSH Q1H [facility] Stop: 11/21/17 13:16 IV Flush (Kate-Cath Flush) 10 ml IVPUSH PRN PRN PRN Reason: Protocol Tigecycline 50 mg/ Dextrose 100 mls @ 100 mls/hr IVPB BID [facility] PRN Reason: Protocol Last Admin: 11/21/17 10:10 Dose: 100 mls/hr Daptomycin 500 mg/ Sodium (Chloride) 100 mls @ 200 mls/hr IVPB MOWEFR [facility] PRN Reason: Protocol Insulin Aspart (Novolog Vial Sliding Scale -) 1 vial SQ TIDAC [facility] PRN Reason: Protocol Last Admin: 11/21/17 06:23 Dose: Not Given Insulin Detemir (Levemir Vial) 10 units SQ BID@0700,2200 [facility] Last Admin: 11/21/17 06:23 Dose: Not Given Lactobacillus Acidophilus (Bacid -) 1 tab PO DAILY [facility] Last Admin: 11/21/17 10:10 Dose: 1 tab Levothyroxine Sodium (Synthroid -) 125 mcg PO DAILY@0700 [facility] Last Admin: 11/21/17 06:19 Dose: 125 mcg Metoprolol Tartrate (Lopressor -) 12.5 mg PO DAILY [facility] Last Admin: 11/21/17 10:17 Dose: Not Given Nitroglycerin (Nitrostat -) 0.4 mg SL DAILY PRN PRN Reason: FOR CHEST PAIN Nystatin (Nystop Powder -) 1 applic TP DAILY [facility] Last Admin: 11/21/17 10:11 Dose: 1 applic Ondansetron HCl (Zofran Injection) 4 mg IVPB Q6H PRN PRN Reason: NAUSEA Last Admin: 11/21/17 11:58 Dose: 4 mg Oxycodone HCl (Roxicodone -) 5 mg PO Q6H PRN PRN Reason: PAIN LEVEL 6-10 Last Admin: 11/21/17 11:05 Dose: 5 mg Pantoprazole Sodium (Protonix -) 40 mg PO DAILY [facility] Last Admin: 11/21/17 10:10 Dose: 40 mg Polyethylene Glycol (Miralax (For Daily Use) -) 17 gm PO DAILY [facility] Last Admin: 11/21/17 10:02 Dose: Not Given Senna (Senna -) 1 tab PO HS [facility] Last Admin: 11/20/17 21:55 Dose: Not Given 72 year old woman with PMhx of ESRD on HD, Hypertension, DM on Insulin, PVD who presented with worsening hand pain. #ESRD on HD for dialysis today with 2k bath UF as tolerated dose all meds for intermittent dialysis #Hand ischemia/Pain/Collection will continue wound care and IV Abx will termite treater IV access placement for Abx will re-dose Daptomycin today following dialysis #Abd wall tenderness ? caliphylaxis as pt has a lot of pain, restarted on coumadin will check CT of the Abd to access for collection vs. calcification Wan Cruz DO
--- NOTE | 2017-11-21 16:37 | CONSULT ---
Consult - text type - Consultation Consultation Note: Patient well known to me with ESRD on HD. Hospital record reviewed. She has a left sided Permacath as access due to bilateral vascular steal problems when AV access was in place. The catheter has been working well but now has been noted to have high arterial pressure and low flow. Patient is on Coumadin and will need to have it stopped if a catheter exchange becomes necessary. If the next treatment is also a problem then catheter exchange will be done .
[2017-11-21] MEDS ORDERED: HEMOQUE TEST 1 EACH EACH ONE (17:14)
[2017-11-21] MEDS: DAPTOMYCIN 500 MG in SODIUM CHLORIDE 100 ML IVPB SCH (17:18)
[2017-11-21] MEDS: SENNOSIDES 8.6MG TABLET (FP) PO SCH (22:24)
[2017-11-22] MEDS: oxyCODONE HCL 5 MG TABLET PO PRN (06:41)
[2017-11-22] MEDS: LEVOTHYROXINE NA 125 MCG TABLET (FP) PO SCH (06:41)
[2017-11-22] MEDS: INSULIN SLIDING SCALE (NOVOLOG) 1 VIAL SQ SCH ×3 (06:43→16:52)
[2017-11-22] MEDS ORDERED: PT OWN MED DRAWER 7, Y5N ONE (09:02)
[2017-11-22] MEDS: TIGECYCLINE 50 MG in DEXTROSE 5%-WATER - 100 ML IVPB SCH ×2 (09:13→21:56)
[2017-11-22] MEDS: NYSTATIN POWDER 100,000 UNITS/GM - 15 GM TOPICAL POWDER TP SCH (09:13)
[2017-11-22] MEDS: DOCUSATE SODIUM 100 MG CAPSULE (FP) PO SCH (09:14)
[2017-11-22] MEDS: INSULIN DETEMIR 100 UNITS/ML MDV SQ SCH ×2 (09:14→21:58)
[2017-11-22] MEDS: CLOTRIMAZOLE/BETAMET DIPROP 15 GM TUBE TP SCH ×2 (09:14→21:56)
[2017-11-22] MEDS: LACTOBACILLUS ACIDOPHILUS 1 EACH TAB (FP) PO SCH (09:14)
[2017-11-22] MEDS: METOPROLOL TARTRATE 25 MG TABLET (FP) PO SCH (09:15)
[2017-11-22] MEDS: CYANOCOBALAMIN (VITAMIN B-12) 100 MCG TABLET PO SCH (09:15)
[2017-11-22] MEDS: CALCIUM ACETATE 667 MG CAPSULE (FP) PO SCH (09:15)
[2017-11-22] MEDS: ASPIRIN 81 MG CHEWABLE TABLETS PO SCH (09:15)
[2017-11-22] MEDS: PANTOPRAZOLE 40 MG TABLET (FP) PO SCH (09:16)
[2017-11-22] MEDS: AMINO ACIDS/PROTEIN HYDROLYS 30 ML LIQUID.PKT PO SCH ×2 (09:16→17:41)
[2017-11-22] MEDS: POLYETHYLENE GLYCOL 3350 119 GM BTL PO SCH (09:16)
--- NOTE | 2017-11-22 10:36 | PN ---
Progress Note, Physician Chief Complaint: has increased pain in left side of abdomen--soft tissue swelling warm compresses not helping her had Oxycodone yesterday which helped the pain - Current Medication List Current Medications: Active Medications Acetaminophen (Tylenol -) 650 mg PO Q4H PRN PRN Reason: BACK PAIN Last Admin: 11/20/17 10:59 Dose: 650 mg Acetaminophen (Ofirmev Injection -) 1,000 mg IVPB Q6H PRN PRN Reason: MODERATE PAIN Last Admin: 11/21/17 12:19 Dose: 1,000 mg Amino Acids (Prosource No Carb Liquid Pkt) 30 ml PO BID@0800,1730 [facility] Last Admin: 11/22/17 09:16 Dose: 30 ml Aspirin (Asa -) 81 mg PO DAILY [facility] Last Admin: 11/22/17 09:15 Dose: 81 mg Calcium Acetate (Phoslo -) 667 mg PO DAILY [facility] Last Admin: 11/22/17 09:15 Dose: 667 mg Clotrimazole (Lotrisone Cream (Small Tube)) 1 applic TP BID [facility] Last Admin: 11/22/17 09:14 Dose: 1 applic Cyanocobalamin (Vitamin B12 -) 100 mcg PO DAILY [facility] Last Admin: 11/22/17 09:15 Dose: 100 mcg Diphenhydramine HCl (Benadryl -) 25 mg PO HS PRN PRN Reason: INSOMNIA Last Admin: 11/20/17 21:57 Dose: 25 mg Docusate Sodium (Colace -) 100 mg PO DAILY [facility] Last Admin: 11/22/17 09:14 Dose: 100 mg Heparin Sodium (Porcine) (Heparin -) 1,000 unit IVPUSH ONCE ONE Stop: 11/18/17 06:01 IV Flush (Kate-Cath Flush) 10 ml IVPUSH PRN PRN PRN Reason: Protocol Tigecycline 50 mg/ Dextrose 100 mls @ 100 mls/hr IVPB BID [facility] PRN Reason: Protocol Last Admin: 11/22/17 09:13 Dose: 100 mls/hr Daptomycin 500 mg/ Sodium (Chloride) 100 mls @ 200 mls/hr IVPB MOWEFR [facility] PRN Reason: Protocol Last Admin: 11/21/17 17:18 Dose: 200 mls/hr Insulin Aspart (Novolog Vial Sliding Scale -) 1 vial SQ TIDAC [facility] PRN Reason: Protocol Last Admin: 11/22/17 06:43 Dose: Not Given Insulin Detemir (Levemir Vial) 10 units SQ BID@0700,2200 [facility] Last Admin: 11/22/17 09:14 Dose: 10 unit Lactobacillus Acidophilus (Bacid -) 1 tab PO DAILY [facility] Last Admin: 11/22/17 09:14 Dose: 1 tab Levothyroxine Sodium (Synthroid -) 125 mcg PO DAILY@0700 [facility] Last Admin: 11/22/17 06:41 Dose: 125 mcg Metoprolol Tartrate (Lopressor -) 12.5 mg PO DAILY [facility] Last Admin: 11/22/17 09:15 Dose: 12.5 mg Nitroglycerin (Nitrostat -) 0.4 mg SL DAILY PRN PRN Reason: FOR CHEST PAIN Nystatin (Nystop Powder -) 1 applic TP DAILY [facility] Last Admin: 11/22/17 09:13 Dose: 1 applic Ondansetron HCl (Zofran Injection) 4 mg IVPB Q6H PRN PRN Reason: NAUSEA Last Admin: 11/21/17 11:58 Dose: 4 mg Oxycodone HCl (Roxicodone -) 5 mg PO Q6H PRN PRN Reason: PAIN LEVEL 6-10 Last Admin: 11/22/17 06:41 Dose: 5 mg Pantoprazole Sodium (Protonix -) 40 mg PO DAILY [facility] Last Admin: 11/22/17 09:16 Dose: 40 mg Polyethylene Glycol (Miralax (For Daily Use) -) 17 gm PO DAILY [facility] Last Admin: 11/22/17 09:16 Dose: 17 grams Senna (Senna -) 1 tab PO HS [facility] Last Admin: 11/21/17 22:24 Dose: Not Given - Objective Vital Signs: Vital Signs Temperature 98.5 F 11/22/17 07:47 Pulse Rate 102 H 11/22/17 07:47 Respiratory Rate 18 11/22/17 07:54 Blood Pressure 124/81 11/22/17 07:47 O2 Sat by Pulse Oximetry (%) 100 11/22/17 07:54 Constitutional: Yes: No Distress Cardiovascular: Yes: Regular Rate and Rhythm Respiratory: Yes: Diminished Gastrointestinal: Yes: Normal Bowel Sounds, Soft, Abdomen, Obese, Tenderness ( left sided soft tissue swelling ,warm) Extremities: Yes: Amputation Edema: No Labs: CBC, BMP 11/21/17 05:00 11/21/17 05:00 INR, PTT INR 2.48 (0.82-1.09) H 11/21/17 05:00 Problem List - Problems (1) Cellulitis and abscess of hand Code(s): L03.119 - CELLULITIS OF UNSPECIFIED PART OF LIMB; L02.519 - CUTANEOUS ABSCESS OF UNSPECIFIED HAND (2) Anemia Code(s): D64.9 - ANEMIA, UNSPECIFIED Qualifiers: Anemia type: other cause Other causes of anemia: chronic disease, kidney (3) Atrial fibrillation Code(s): I48.91 - UNSPECIFIED ATRIAL FIBRILLATION Qualifiers: Atrial fibrillation type: unspecified Qualified Code(s): I48.91 - Unspecified atrial fibrillation (4) DM type 2 causing complication Code(s): E11.8 - TYPE 2 DIABETES MELLITUS WITH UNSPECIFIED COMPLICATIONS Qualifiers: Diabetes mellitus shelter insulin use: with shelter use Qualified Code( s): E11.8 - Type 2 diabetes mellitus with unspecified complications; Z79.4 - prison (current) use of insulin; Z79.4 - superintendent terminal (current) use of insulin; Z79.4 - superintendent terminal (current) use of insulin; Z79.4 - superintendent terminal (current) use of insulin (5) ESRD (end stage renal disease) on dialysis Code(s): N18.6 - END STAGE RENAL DISEASE; Z99.2 - DEPENDENCE ON RENAL DIALYSIS Assessment/Plan Abx per ID-- needs total 6 weeks-- Dapto +Tigecil-- spoke with nurse-- needs picc line for antibiotics-- Tunneled cath continue other meds monitor bgm-- on Levemir dc planning-- likely [facility]-- will need to get Daptomycin available prior to discharge- .She will have transport from [place] to dialysis 3 days a week pain control dialysis per renal will follow BP stable Prostat BID per casework manager note-- medication will be available next Tuesday hold Coumadin - in anticipation for tunneled cath placement and possible I & D of soft tissue swelling surgical eval for left sided abdomen soft tissue swelling -- noted Ct abd done -- results pending
[2017-11-22 11:36] LABS: INR 1.82 (0.82-1.09); PROTHROMBIN TIME (PATIENT) 20.6 SEC (9.98-11.88)
--- NOTE | 2017-11-22 11:37 | PN ---
Progress Note (short form) - Note Progress Note: CCU. 72 year old white female known case of CAD, s/p multivessel PCI/stenting, severe LV systolic dysfunction, s/p ICD, permanent atrial fib, h/o hypotension, DM with multi system involvement, ESRD-HD, hypertension admitted with gangrenous changes involving the fingers of the left hand requiring amputations. No chest pain or SOB, had CT of the abdomen and results are pending. Heart rate is well controlled. Active Medications Generic Name Dose Route Start Last Admin Trade Name Freq PRN Reason Stop Dose Admin Acetaminophen 650 mg 10/31/17 16:05 11/20/17 10:59 Tylenol - PO 650 mg Q4H PRN Administration BACK PAIN Acetaminophen 1,000 mg 11/20/17 16:03 11/21/17 12:19 Ofirmev Injection - IVPB 1,000 mg Q6H PRN Administration MODERATE PAIN Amino Acids 30 ml 11/09/17 17:30 11/22/17 09:16 Prosource No Carb Liquid Pkt PO 30 ml BID@0800,1730 [facility] Administration Aspirin 81 mg 11/01/17 10:00 11/22/17 09:15 Asa - PO 81 mg DAILY [facility] Administration Calcium Acetate 667 mg 11/01/17 10:00 11/22/17 09:15 Phoslo - PO 667 mg DAILY [facility] Administration Clotrimazole 1 applic 11/17/17 10:00 11/22/17 09:14 Lotrisone Cream (Small Tube) TP 1 applic BID [facility] Administration Cyanocobalamin 100 mcg 11/01/17 10:00 11/22/17 09:15 Vitamin B12 - PO 100 mcg DAILY [facility] Administration Diphenhydramine HCl 25 mg 11/09/17 11:07 11/20/17 21:57 Benadryl - PO 25 mg HS PRN Administration INSOMNIA Docusate Sodium 100 mg 11/01/17 10:00 11/22/17 09:14 Colace - PO 100 mg DAILY [facility] Administration Heparin Sodium (Porcine) 1,000 unit 11/18/17 06:00 Heparin - IVPUSH 11/18/17 06:01 ONCE ONE IV Flush 10 ml 11/08/17 11:34 Kate-Cath Flush IVPUSH PRN PRN Protocol Tigecycline 50 mg/ Dextrose 100 mls @ 100 mls/hr 11/04/17 22:00 11/22/17 09: 13 IVPB 100 mls/hr BID [facility] Administration Protocol Daptomycin 500 mg/ Sodium 100 mls @ 200 mls/hr 11/21/17 11:52 11/21/17 17:18 Chloride IVPB 200 mls/hr MOWEFR [facility] Administration Protocol Insulin Aspart 1 vial 11/03/17 16:30 11/22/17 06:43 Novolog Vial Sliding Scale - SQ Not Given TIDAC [facility] Protocol Insulin Detemir 10 units 11/18/17 09:58 11/22/17 09:14 Levemir Vial SQ 10 unit BID@0700,2200 [facility] Administration Lactobacillus Acidophilus 1 tab 11/01/17 10:00 11/22/17 09:14 Bacid - PO 1 tab DAILY [facility] Administration Levothyroxine Sodium 125 mcg 11/01/17 07:00 11/22/17 06:41 Synthroid - PO 125 mcg DAILY@0700 [facility] Administration Metoprolol Tartrate 12.5 mg 11/01/17 10:00 11/22/17 09:15 Lopressor - PO 12.5 mg DAILY [facility] Administration Nitroglycerin 0.4 mg 10/31/17 16:05 Nitrostat - SL DAILY PRN FOR CHEST PAIN Nystatin 1 applic 11/12/17 20:45 11/22/17 09:13 Nystop Powder - TP 1 applic DAILY [facility] Administration Ondansetron HCl 4 mg 11/04/17 09:31 11/21/17 11:58 Zofran Injection IVPB 4 mg Q6H PRN Administration NAUSEA Oxycodone HCl 5 mg 11/21/17 10:27 11/22/17 06:41 Roxicodone - PO 5 mg Q6H PRN Administration PAIN LEVEL 6-10 Pantoprazole Sodium 40 mg 11/01/17 10:00 11/22/17 09:16 Protonix - PO 40 mg DAILY [facility] Administration Polyethylene Glycol 17 gm 11/01/17 10:00 11/22/17 09:16 Miralax (For Daily Use) - PO 17 grams DAILY [facility] Administration Senna 1 tab 10/31/17 22:00 11/21/17 22:24 Senna - PO Not Given HS [facility] 72 year old female in no distress, no pallor, clubbing, cyanosis or jaundice. Last Vital Signs Temp Pulse Resp BP Pulse Ox 98.5 F 102 H 18 124/81 100 11/22/17 07:47 11/22/17 07:47 11/22/17 07:54 11/22/17 07:47 11/22/17 07:54 NECK: Supple, no JVD, carotids 1-2+, no bruits heards. anterior surgical scar. HEART: PMI in the 5th ICS, LINDA I/ 2nd right ICS. no gallops heard. LUNGS; Clear on auscultation. ABDOMEN: Soft, 2 firm lesions involving the left abdominal wall with demarcated borders. extremely tender to touch with indurated surfaces No organomegaly. EXTREMITIES: Rt. AKA, left partial amputation of the foot. partial amputation of the left index and ring finger, total amputation of the middle finger. CBC, BMP 11/21/17 05:00 11/21/17 05:00 IMPRESSION: 1. CAD s/p RI, s/p PCI/stenting. 2. Persistent, firm and extremely tender lesion involving the left abdominal wall. 3. Hypothyroidism, on replacement therapy. 4. Diabetes mellitus with multisystem involvement 5. Permanent atrial fib. with controlled ventricular response. 6. Hypertension. 7. Severe LV systolic dysfunction. 8. ICD. 9. ESRD HD. Recommendations: 1. CT scan results are pending. 2. Continue current cardiac therapy
--- NOTE | 2017-11-22 12:52 | PN ---
Progress Note, Physician Chief Complaint: left hand wet and dry gangrene History of Present Illness: 72 yo female PMH HTN, DM, HLD, PAD, CHF, A-fib, defibrillator placement,pvd, ESRD (Dialysis on M,W,F- left chest tunnel catheter ), Right AKA amputation, Left foot amputation, and Left hand 2nd-4th digit partial amputation (02/2017) who presents with left hand pain. Found to have flexor tenosynovitis and a combination of wet and dry gangrene. Reports more abdominal wall tendeness at the site of insulin (not heparin) injections. She is less tearful today - Current Medication List Current Medications: Active Medications Acetaminophen (Tylenol -) 650 mg PO Q4H PRN PRN Reason: BACK PAIN Last Admin: 11/20/17 10:59 Dose: 650 mg Acetaminophen (Ofirmev Injection -) 1,000 mg IVPB Q6H PRN PRN Reason: MODERATE PAIN Last Admin: 11/21/17 12:19 Dose: 1,000 mg Amino Acids (Prosource No Carb Liquid Pkt) 30 ml PO BID@0800,1730 [facility] Last Admin: 11/22/17 09:16 Dose: 30 ml Aspirin (Asa -) 81 mg PO DAILY [facility] Last Admin: 11/22/17 09:15 Dose: 81 mg Calcium Acetate (Phoslo -) 667 mg PO DAILY [facility] Last Admin: 11/22/17 09:15 Dose: 667 mg Clotrimazole (Lotrisone Cream (Small Tube)) 1 applic TP BID [facility] Last Admin: 11/22/17 09:14 Dose: 1 applic Cyanocobalamin (Vitamin B12 -) 100 mcg PO DAILY [facility] Last Admin: 11/22/17 09:15 Dose: 100 mcg Diphenhydramine HCl (Benadryl -) 25 mg PO HS PRN PRN Reason: INSOMNIA Last Admin: 11/20/17 21:57 Dose: 25 mg Docusate Sodium (Colace -) 100 mg PO DAILY [facility] Last Admin: 11/22/17 09:14 Dose: 100 mg Heparin Sodium (Porcine) (Heparin -) 1,000 unit IVPUSH ONCE ONE Stop: 11/18/17 06:01 IV Flush (Kate-Cath Flush) 10 ml IVPUSH PRN PRN PRN Reason: Protocol Tigecycline 50 mg/ Dextrose 100 mls @ 100 mls/hr IVPB BID [facility] PRN Reason: Protocol Last Admin: 11/22/17 09:13 Dose: 100 mls/hr Daptomycin 500 mg/ Sodium (Chloride) 100 mls @ 200 mls/hr IVPB MOWEFR [facility] PRN Reason: Protocol Last Admin: 11/21/17 17:18 Dose: 200 mls/hr Insulin Aspart (Novolog Vial Sliding Scale -) 1 vial SQ TIDAC [facility] PRN Reason: Protocol Last Admin: 11/22/17 12:01 Dose: Not Given Insulin Detemir (Levemir Vial) 10 units SQ BID@0700,2200 [facility] Last Admin: 11/22/17 09:14 Dose: 10 unit Lactobacillus Acidophilus (Bacid -) 1 tab PO DAILY [facility] Last Admin: 11/22/17 09:14 Dose: 1 tab Levothyroxine Sodium (Synthroid -) 125 mcg PO DAILY@0700 [facility] Last Admin: 11/22/17 06:41 Dose: 125 mcg Metoprolol Tartrate (Lopressor -) 12.5 mg PO DAILY [facility] Last Admin: 11/22/17 09:15 Dose: 12.5 mg Nitroglycerin (Nitrostat -) 0.4 mg SL DAILY PRN PRN Reason: FOR CHEST PAIN Nystatin (Nystop Powder -) 1 applic TP DAILY [facility] Last Admin: 11/22/17 09:13 Dose: 1 applic Ondansetron HCl (Zofran Injection) 4 mg IVPB Q6H PRN PRN Reason: NAUSEA Last Admin: 11/21/17 11:58 Dose: 4 mg Oxycodone HCl (Roxicodone -) 5 mg PO Q6H PRN PRN Reason: PAIN LEVEL 6-10 Last Admin: 11/22/17 06:41 Dose: 5 mg Pantoprazole Sodium (Protonix -) 40 mg PO DAILY [facility] Last Admin: 11/22/17 09:16 Dose: 40 mg Polyethylene Glycol (Miralax (For Daily Use) -) 17 gm PO DAILY [facility] Last Admin: 11/22/17 09:16 Dose: 17 grams Senna (Senna -) 1 tab PO HS [facility] Last Admin: 11/21/17 22:24 Dose: Not Given - Objective Vital Signs: Vital Signs Temperature 98.5 F 11/22/17 07:47 Pulse Rate 102 H 11/22/17 07:47 Respiratory Rate 18 11/22/17 07:54 Blood Pressure 124/81 11/22/17 07:47 O2 Sat by Pulse Oximetry (%) 100 11/22/17 07:54 Vital Signs Period Temp Pulse Resp BP Sys/Cordero Pulse Ox Last 24 Hr 97.7 F-98.5 F 83-124 17-18 98-155/38-103 100-100 Intake & Output 11/21/17 11/22/17 11/22/17 23:59 07:59 15:59 Intake Total 100 Balance 100 Intake: IVPB 100 Other: Voiding Method Incontinent Incontinent # Unmeasured Voids Void 0 Bowel Movement No Constitutional: Yes: No Distress, Anxious, Obese Eyes: Yes: Conjunctiva Clear, EOM Intact HENT: Yes: Atraumatic, Normocephalic Neck: Yes: Supple, Trachea Midline Cardiovascular: Yes: Regular Rate and Rhythm, S1, S2 Respiratory: Yes: Regular, CTA Bilaterally Gastrointestinal: Yes: Normal Bowel Sounds, Soft, Abdomen, Obese, Other (left lateral dependent edema) Genitourinary: No: CVA Tenderness - Left, CVA Tenderness - Right Extremities: No: Cool, Cyanosis Edema: Yes (flanks ) Peripheral Pulses WNL: Yes Peripheral Pulses: Left Radial: 2+, Right Radial: 2+ Neurological: Yes: Alert, Oriented Psychiatric: Yes: Alert, Oriented Labs: CBC, BMP 11/21/17 05:00 11/21/17 05:00 INR, PTT INR 1.82 (0.82-1.09) H 11/22/17 10:46 Problem List - Problems (1) Edema of abdominal wall Assessment/Plan: 72 yo female MMP including Afib on coumadin, DM type 2 and ESRD, Wet gangrene and flexor tenosynovitis left middle finger, dry gangrene of index and ring fingers, poor distal circulation on duplex with PVR left arm. POD#21 s/p Left middle finger incision and drainage of flexor tenosynovitis and revision amputation of index middle and ring fingers. on daptomycin and tygacil per ID the wound is clean. She has some bruising of the abdominal panus on the left where she has been getting insulin that has become more tender, INR 1.86, WBC slightly elevated 10.6 no shift. Abdominal wall edema without radiologic evidence of abscess this no operative intervention is indicated Abdominal wall edema Mobilize the patient PT evaluation Alternate abdominal site for heparin injection adequate analgesia Warm compressed to the area Left hand gangrene IV antibiotics per ID Daily Dressing: Wound measurement: left middle open MCP [id number], clean no purulent drainage Dressing instructions: open MCP, oil emulsion, loose rolled gauze PT evaluation appreciated Follow-up plan in discharge plan Code(s): R60.0 - LOCALIZED EDEMA (2) Gangrene of hand Code(s): I96 - GANGRENE, NOT ELSEWHERE CLASSIFIED (3) Flexor tenosynovitis of finger Code(s): M65.9 - SYNOVITIS AND TENOSYNOVITIS, UNSPECIFIED (4) Cellulitis and abscess of hand Code(s): L03.119 - CELLULITIS OF UNSPECIFIED PART OF LIMB; L02.519 - CUTANEOUS ABSCESS OF UNSPECIFIED HAND (5) Anemia in ESRD (end-stage renal disease) Code(s): N18.6 - END STAGE RENAL DISEASE; D63.1 - ANEMIA IN CHRONIC KIDNEY DISEASE (6) CAD (coronary artery disease) Code(s): I25.10 - ATHSCL HEART DISEASE OF [place] CORONARY ARTERY W/O ANG PCTRS Qualifiers: Coronary Disease-Associated Artery/Lesion type: [place] artery [place] vs. transplanted heart: [place] heart Associated angina: without angina Qualified Code(s): I25.10 - Atherosclerotic heart disease of [place] coronary artery without angina pectoris (7) DM type 2 causing complication Code(s): E11.8 - TYPE 2 DIABETES MELLITUS WITH UNSPECIFIED COMPLICATIONS Qualifiers: Diabetes mellitus buttermaker insulin use: with buttermaker use Qualified Code( s): E11.8 - Type 2 diabetes mellitus with unspecified complications; Z79.4 - retirement (current) use of insulin; Z79.4 - retirement (current) use of insulin; Z79.4 - assistant terminal manager (current) use of insulin; Z79.4 - assistant terminal manager (current) use of insulin (8) ESRD on hemodialysis Code(s): N18.6 - END STAGE RENAL DISEASE; Z99.2 - DEPENDENCE ON RENAL DIALYSIS (9) HTN (hypertension) Code(s): I10 - ESSENTIAL (PRIMARY) HYPERTENSION Qualifiers: Hypertension type: essential hypertension Qualified Code(s): I10 - Essential (primary) hypertension (10) Hypercholesterolemia Code(s): E78.00 - PURE HYPERCHOLESTEROLEMIA, UNSPECIFIED
[2017-11-22] MEDS: ONDANSETRON 4 MG/2 ML VIAL IVPB PRN (12:54)
[2017-11-22] MEDS ORDERED: ONDANSETRON 4 MG/2 ML VIAL ONE (13:43)
--- NOTE | 2017-11-22 19:31 | PN ---
Progress Note (short form) - Note Progress Note: Renal follow up for ESRD on HD Pt seen and examineds at the bedside has abd pain Vital Signs Temperature 97.8 F 11/22/17 22:00 Pulse Rate 102 H 11/22/17 22:00 Respiratory Rate 20 11/22/17 22:00 Blood Pressure 108/75 11/22/17 22:00 O2 Sat by Pulse Oximetry (%) 97 11/22/17 21:00 NAD RRR Right AKA left hand in dressing LLQ abd wall tenderness, no masses, thickened skin CBC, BMP 11/21/17 05:00 11/21/17 05:00 Current Medications Acetaminophen (Tylenol -) 650 mg PO Q4H PRN PRN Reason: BACK PAIN Last Admin: 11/20/17 10:59 Dose: 650 mg Acetaminophen (Ofirmev Injection -) 1,000 mg IVPB Q6H PRN PRN Reason: MODERATE PAIN Last Admin: 11/21/17 12:19 Dose: 1,000 mg Amino Acids (Prosource No Carb Liquid Pkt) 30 ml PO BID@0800,1730 [facility] Last Admin: 11/22/17 17:41 Dose: 30 ml Aspirin (Asa -) 81 mg PO DAILY [facility] Last Admin: 11/22/17 09:15 Dose: 81 mg Calcium Acetate (Phoslo -) 667 mg PO DAILY [facility] Last Admin: 11/22/17 09:15 Dose: 667 mg Clotrimazole (Lotrisone Cream (Small Tube)) 1 applic TP BID [facility] Last Admin: 11/22/17 21:56 Dose: 1 applic Cyanocobalamin (Vitamin B12 -) 100 mcg PO DAILY [facility] Last Admin: 11/22/17 09:15 Dose: 100 mcg Diphenhydramine HCl (Benadryl -) 25 mg PO HS PRN PRN Reason: INSOMNIA Last Admin: 11/22/17 22:52 Dose: 25 mg Docusate Sodium (Colace -) 100 mg PO DAILY [facility] Last Admin: 11/22/17 09:14 Dose: 100 mg Heparin Sodium (Porcine) (Heparin -) 1,000 unit IVPUSH ONCE ONE Stop: 11/18/17 06:01 Heparin Sodium (Porcine) (Heparin -) 1,000 unit IVPUSH ONCE ONE Stop: 11/23/17 06:01 IV Flush (Kate-Cath Flush) 10 ml IVPUSH PRN PRN PRN Reason: Protocol Tigecycline 50 mg/ Dextrose 100 mls @ 100 mls/hr IVPB BID [facility] PRN Reason: Protocol Last Admin: 11/22/17 21:56 Dose: 100 mls/hr Daptomycin 500 mg/ Sodium (Chloride) 100 mls @ 200 mls/hr IVPB MOWEFR [facility] PRN Reason: Protocol Last Admin: 11/21/17 17:18 Dose: 200 mls/hr Insulin Aspart (Novolog Vial Sliding Scale -) 1 vial SQ TIDAC [facility] PRN Reason: Protocol Last Admin: 11/22/17 16:52 Dose: Not Given Insulin Detemir (Levemir Vial) 10 units SQ BID@0700,2200 [facility] Last Admin: 11/22/17 21:58 Dose: 10 unit Lactobacillus Acidophilus (Bacid -) 1 tab PO DAILY [facility] Last Admin: 11/22/17 09:14 Dose: 1 tab Levothyroxine Sodium (Synthroid -) 125 mcg PO DAILY@0700 [facility] Last Admin: 11/22/17 06:41 Dose: 125 mcg Metoprolol Tartrate (Lopressor -) 12.5 mg PO DAILY [facility] Last Admin: 11/22/17 09:15 Dose: 12.5 mg Nitroglycerin (Nitrostat -) 0.4 mg SL DAILY PRN PRN Reason: FOR CHEST PAIN Nystatin (Nystop Powder -) 1 applic TP DAILY [facility] Last Admin: 11/22/17 09:13 Dose: 1 applic Ondansetron HCl (Zofran -) 4 mg PO Q8H PRN PRN Reason: NAUSEA AND/OR VOMITING Last Admin: 11/22/17 21:57 Dose: 4 mg Oxycodone HCl (Roxicodone -) 5 mg PO Q6H PRN PRN Reason: PAIN LEVEL 6-10 Last Admin: 11/22/17 06:41 Dose: 5 mg Pantoprazole Sodium (Protonix -) 40 mg PO DAILY [facility] Last Admin: 11/22/17 09:16 Dose: 40 mg Polyethylene Glycol (Miralax (For Daily Use) -) 17 gm PO DAILY [facility] Last Admin: 11/22/17 09:16 Dose: 17 grams Senna (Senna -) 1 tab PO HS [facility] Last Admin: 11/22/17 21:56 Dose: Not Given 72 year old woman with PMhx of ESRD on HD, Hypertension, DM on Insulin, PVD who presented with worsening hand pain. #ESRD on HD dialysis in am #Hand ischemia/Pain/Collection will continue wound care and IV Abx will intermediate frame tender IV access placement for Abx will re-dose Daptomycin following dialysis #Abd wall tenderness ? caliphylaxis ct did not confirm sx follow up Wan Cruz DO
[2017-11-22] MEDS: SENNOSIDES 8.6MG TABLET (FP) PO SCH (21:56)
[2017-11-22] MEDS: ONDANSETRON 4 MG TABLET PO PRN (21:57)
[2017-11-22] MEDS: diphenhydrAMINE HCL 25 MG CAPSULE (FP) PO PRN (22:52)
[2017-11-23] MEDS: LEVOTHYROXINE NA 125 MCG TABLET (FP) PO SCH (06:41)
[2017-11-23 06:54] LABS: INR 1.91 (0.82-1.09); PROTHROMBIN TIME (PATIENT) 21.6 SEC (9.98-11.88)
[2017-11-23] MEDS ORDERED: INSULIN (NOVOLOG) ASPART 100 UNITS/ML 10ML VIAL ONE (08:09)
[2017-11-23] MEDS ORDERED: INSULIN DETEMIR 100 UNITS/ML MDV SQ ONE (08:09)
[2017-11-23] MEDS: AMINO ACIDS/PROTEIN HYDROLYS 30 ML LIQUID.PKT PO SCH ×2 (08:18→17:02)
[2017-11-23] MEDS: INSULIN DETEMIR 100 UNITS/ML MDV SQ SCH ×2 (08:19→22:47)
[2017-11-23] MEDS ORDERED: PT OWN MED DRAWER 7, Y5N ONE ×3 (09:32→20:53)
[2017-11-23] MEDS: LACTOBACILLUS ACIDOPHILUS 1 EACH TAB (FP) PO SCH (09:34)
[2017-11-23] MEDS: CYANOCOBALAMIN (VITAMIN B-12) 100 MCG TABLET PO SCH (09:34)
[2017-11-23] MEDS: DOCUSATE SODIUM 100 MG CAPSULE (FP) PO SCH (09:35)
[2017-11-23] MEDS: PANTOPRAZOLE 40 MG TABLET (FP) PO SCH (09:35)
[2017-11-23] MEDS: TIGECYCLINE 50 MG in DEXTROSE 5%-WATER - 100 ML IVPB SCH ×2 (09:35→22:48)
[2017-11-23] MEDS: CALCIUM ACETATE 667 MG CAPSULE (FP) PO SCH (09:35)
[2017-11-23] MEDS: METOPROLOL TARTRATE 25 MG TABLET (FP) PO SCH (09:36)
[2017-11-23] MEDS: NYSTATIN POWDER 100,000 UNITS/GM - 15 GM TOPICAL POWDER TP SCH (09:55)
--- NOTE | 2017-11-23 10:46 | PN ---
Progress Note, Physician Chief Complaint: has pain in left side of abdomen--soft tissue swelling warm compresses not helping her she feels depressed with all her problems - Current Medication List Current Medications: Active Medications Acetaminophen (Tylenol -) 650 mg PO Q4H PRN PRN Reason: BACK PAIN Last Admin: 11/20/17 10:59 Dose: 650 mg Acetaminophen (Ofirmev Injection -) 1,000 mg IVPB Q6H PRN PRN Reason: MODERATE PAIN Last Admin: 11/21/17 12:19 Dose: 1,000 mg Amino Acids (Prosource No Carb Liquid Pkt) 30 ml PO BID@0800,1730 [facility] Last Admin: 11/23/17 08:18 Dose: 30 ml Aspirin (Asa -) 81 mg PO DAILY [facility] Last Admin: 11/22/17 09:15 Dose: 81 mg Calcium Acetate (Phoslo -) 667 mg PO DAILY [facility] Last Admin: 11/23/17 09:35 Dose: 667 mg Clotrimazole (Lotrisone Cream (Small Tube)) 1 applic TP BID [facility] Last Admin: 11/22/17 21:56 Dose: 1 applic Cyanocobalamin (Vitamin B12 -) 100 mcg PO DAILY [facility] Last Admin: 11/23/17 09:34 Dose: 100 mcg Diphenhydramine HCl (Benadryl -) 25 mg PO HS PRN PRN Reason: INSOMNIA Last Admin: 11/22/17 22:52 Dose: 25 mg Docusate Sodium (Colace -) 100 mg PO DAILY [facility] Last Admin: 11/23/17 09:35 Dose: 100 mg Heparin Sodium (Porcine) (Heparin -) 1,000 unit IVPUSH ONCE ONE Stop: 11/18/17 06:01 Heparin Sodium (Porcine) (Heparin -) 1,000 unit IVPUSH ONCE ONE Stop: 11/23/17 06:01 IV Flush (Kate-Cath Flush) 10 ml IVPUSH PRN PRN PRN Reason: Protocol Tigecycline 50 mg/ Dextrose 100 mls @ 100 mls/hr IVPB BID YOAN PRN Reason: Protocol Last Admin: 11/23/17 09:35 Dose: 100 mls/hr Daptomycin 500 mg/ Sodium (Chloride) 100 mls @ 200 mls/hr IVPB MOWEFR YOAN PRN Reason: Protocol Last Admin: 11/21/17 17:18 Dose: 200 mls/hr Insulin Aspart (Novolog Vial Sliding Scale -) 1 vial SQ TIDAC [facility] PRN Reason: Protocol Last Admin: 11/22/17 16:52 Dose: Not Given Insulin Detemir (Levemir Vial) 10 units SQ BID@0700,2200 [facility] Last Admin: 11/23/17 08:19 Dose: 10 unit Lactobacillus Acidophilus (Bacid -) 1 tab PO DAILY [facility] Last Admin: 11/23/17 09:34 Dose: 1 tab Levothyroxine Sodium (Synthroid -) 125 mcg PO DAILY@0700 [facility] Last Admin: 11/23/17 06:41 Dose: 125 mcg Metoprolol Tartrate (Lopressor -) 12.5 mg PO DAILY [facility] Last Admin: 11/23/17 09:36 Dose: Not Given Nitroglycerin (Nitrostat -) 0.4 mg SL DAILY PRN PRN Reason: FOR CHEST PAIN Nystatin (Nystop Powder -) 1 applic TP DAILY [facility] Last Admin: 11/22/17 09:13 Dose: 1 applic Ondansetron HCl (Zofran -) 4 mg PO Q8H PRN PRN Reason: NAUSEA AND/OR VOMITING Last Admin: 11/22/17 21:57 Dose: 4 mg Oxycodone HCl (Roxicodone -) 5 mg PO Q6H PRN PRN Reason: PAIN LEVEL 6-10 Last Admin: 11/22/17 06:41 Dose: 5 mg Pantoprazole Sodium (Protonix -) 40 mg PO DAILY [facility] Last Admin: 11/23/17 09:35 Dose: 40 mg Polyethylene Glycol (Miralax (For Daily Use) -) 17 gm PO DAILY [facility] Last Admin: 11/22/17 09:16 Dose: 17 grams Senna (Senna -) 1 tab PO HS [facility] Last Admin: 11/22/17 21:56 Dose: Not Given - Objective Vital Signs: Vital Signs Temperature 97.4 F L 11/23/17 10:00 Pulse Rate 102 H 11/23/17 10:00 Respiratory Rate 20 11/23/17 10:00 Blood Pressure 101/54 11/23/17 10:00 O2 Sat by Pulse Oximetry (%) 97 11/23/17 09:00 Constitutional: Yes: Anxious Cardiovascular: Yes: Regular Rate and Rhythm Respiratory: Yes: Diminished Gastrointestinal: Yes: Normal Bowel Sounds, Soft, Tenderness (left abd soft tissue swelling- contained within the circles drawn by Surgeon) Extremities: Yes: Amputation Edema: No Labs: CBC, BMP 11/21/17 05:00 11/21/17 05:00 INR, PTT INR 1.91 (0.82-1.09) H 11/23/17 06:15 Problem List - Problems (1) Cellulitis and abscess of hand Code(s): L03.119 - CELLULITIS OF UNSPECIFIED PART OF LIMB; L02.519 - CUTANEOUS ABSCESS OF UNSPECIFIED HAND (2) Anemia Code(s): D64.9 - ANEMIA, UNSPECIFIED Qualifiers: Anemia type: other cause Other causes of anemia: chronic disease, kidney (3) Atrial fibrillation Code(s): I48.91 - UNSPECIFIED ATRIAL FIBRILLATION Qualifiers: Atrial fibrillation type: unspecified Qualified Code(s): I48.91 - Unspecified atrial fibrillation (4) DM type 2 causing complication Code(s): E11.8 - TYPE 2 DIABETES MELLITUS WITH UNSPECIFIED COMPLICATIONS Qualifiers: Diabetes mellitus intermediate teacher insulin use: with intermediate teacher use Qualified Code( s): E11.8 - Type 2 diabetes mellitus with unspecified complications; Z79.4 - custodial (current) use of insulin; Z79.4 - extermination supervisor (current) use of insulin; Z79.4 - custodial (current) use of insulin; Z79.4 - extermination supervisor (current) use of insulin (5) ESRD (end stage renal disease) on dialysis Code(s): N18.6 - END STAGE RENAL DISEASE; Z99.2 - DEPENDENCE ON RENAL DIALYSIS Assessment/Plan Abx per ID-- needs total 6 weeks-- Dapto +Tigecil-- spoke with nurse-- needs picc line for antibiotics-- Tunneled cath continue other meds monitor bgm-- on Levemir dc planning-- likely [facility]-- will need to get Daptomycin available prior to discharge- .She will have transport from [place] to dialysis 3 days a week pain control dialysis per renal will follow BP stable Prostat BID Dialysis today, will need to see if permacath is functioning well R/O calciphylaxis, spoke with Renal- d/w pt-- may need bone scan to confirm. CT abd does not show abscess Coumadin discontinued-- may worsen calciphylaxis , Pt may need another anticoagulant like Eliquis
[2017-11-23] MEDS: POLYETHYLENE GLYCOL 3350 119 GM BTL PO SCH (10:54)
[2017-11-23] MEDS: ASPIRIN 81 MG CHEWABLE TABLETS PO SCH (10:55)
[2017-11-23] MEDS: CLOTRIMAZOLE/BETAMET DIPROP 15 GM TUBE TP SCH ×2 (10:55→22:48)
[2017-11-23] MEDS ORDERED: HEPARIN NA (PORCINE) 5,000 UNITS/ML 1ML VIAL IVPUSH ONE (12:30)
--- NOTE | 2017-11-23 12:37 | PN ---
Progress Note (short form) - Note Progress Note: Renal follow up for ESRD on HD Pt seen and examined at the bedside awake and alert continues to have pain in abdomen CT scan did not show abcess or collection pt tolerated dialysis this am Vital Signs Temperature 97.4 F L 11/23/17 10:00 Pulse Rate 102 H 11/23/17 10:00 Respiratory Rate 20 11/23/17 10:00 Blood Pressure 101/54 11/23/17 10:00 O2 Sat by Pulse Oximetry (%) 97 11/23/17 09:00 Intake & Output 11/20/17 11/21/17 11/22/17 11/23/17 23:59 23:59 23:59 23:59 Intake Total 390 380 120 300 Output Total 400 Balance 390 380 -280 300 NAD RRR Right AKA left hand in dressing LLQ abd wall tenderness, no masses, thickened skin CBC, BMP 11/21/17 05:00 11/21/17 05:00 Current Medications Acetaminophen (Tylenol -) 650 mg PO Q4H PRN PRN Reason: BACK PAIN Last Admin: 11/20/17 10:59 Dose: 650 mg Acetaminophen (Ofirmev Injection -) 1,000 mg IVPB Q6H PRN PRN Reason: MODERATE PAIN Last Admin: 11/21/17 12:19 Dose: 1,000 mg Amino Acids (Prosource No Carb Liquid Pkt) 30 ml PO BID@0800,1730 [facility] Last Admin: 11/23/17 08:18 Dose: 30 ml Aspirin (Asa -) 81 mg PO DAILY [facility] Last Admin: 11/22/17 09:15 Dose: 81 mg Clotrimazole (Lotrisone Cream (Small Tube)) 1 applic TP BID [facility] Last Admin: 11/22/17 21:56 Dose: 1 applic Cyanocobalamin (Vitamin B12 -) 100 mcg PO DAILY [facility] Last Admin: 11/23/17 09:34 Dose: 100 mcg Diphenhydramine HCl (Benadryl -) 25 mg PO HS PRN PRN Reason: INSOMNIA Last Admin: 11/22/17 22:52 Dose: 25 mg Docusate Sodium (Colace -) 100 mg PO DAILY [facility] Last Admin: 11/23/17 09:35 Dose: 100 mg Heparin Sodium (Porcine) (Heparin -) 1,000 unit IVPUSH ONCE ONE Stop: 11/23/17 12:31 IV Flush (Kate-Cath Flush) 10 ml IVPUSH PRN PRN PRN Reason: Protocol Tigecycline 50 mg/ Dextrose 100 mls @ 100 mls/hr IVPB BID YOAN PRN Reason: Protocol Last Admin: 11/23/17 09:35 Dose: 100 mls/hr Daptomycin 500 mg/ Sodium (Chloride) 100 mls @ 200 mls/hr IVPB MOWEFR YOAN PRN Reason: Protocol Last Admin: 11/21/17 17:18 Dose: 200 mls/hr Insulin Aspart (Novolog Vial Sliding Scale -) 1 vial SQ TIDAC YOAN PRN Reason: Protocol Last Admin: 11/22/17 16:52 Dose: Not Given Insulin Detemir (Levemir Vial) 10 units SQ BID@0700,2200 [facility] Last Admin: 11/23/17 08:19 Dose: 10 unit Lactobacillus Acidophilus (Bacid -) 1 tab PO DAILY [facility] Last Admin: 11/23/17 09:34 Dose: 1 tab Levothyroxine Sodium (Synthroid -) 125 mcg PO DAILY@0700 [facility] Last Admin: 11/23/17 06:41 Dose: 125 mcg Metoprolol Tartrate (Lopressor -) 12.5 mg PO DAILY [facility] Last Admin: 11/23/17 09:36 Dose: Not Given Nitroglycerin (Nitrostat -) 0.4 mg SL DAILY PRN PRN Reason: FOR CHEST PAIN Nystatin (Nystop Powder -) 1 applic TP DAILY [facility] Last Admin: 11/22/17 09:13 Dose: 1 applic Ondansetron HCl (Zofran -) 4 mg PO Q8H PRN PRN Reason: NAUSEA AND/OR VOMITING Last Admin: 11/22/17 21:57 Dose: 4 mg Oxycodone HCl (Roxicodone -) 5 mg PO Q6H PRN PRN Reason: PAIN LEVEL 6-10 Last Admin: 11/22/17 06:41 Dose: 5 mg Pantoprazole Sodium (Protonix -) 40 mg PO DAILY [facility] Last Admin: 11/23/17 09:35 Dose: 40 mg Polyethylene Glycol (Miralax (For Daily Use) -) 17 gm PO DAILY [facility] Last Admin: 11/22/17 09:16 Dose: 17 grams Senna (Senna -) 1 tab PO HS [facility] Last Admin: 11/22/17 21:56 Dose: Not Given Sevelamer Carbonate (Renvela -) 1,600 mg PO TIDCM [facility] Sodium Thiosulfate (Sodium Thiosulfate) 25 gm IVPB MoWeFr@0800 [facility] 72 year old woman with PMhx of ESRD on HD, Hypertension, DM on Insulin, PVD who presented with worsening hand pain. #ESRD on HD pt tolerated dialysis well this am will continue 3x weekly dialysis renal diet #Hand ischemia/Pain/Collection will continue wound care and IV Abx will team leader IV access placement for Abx will re-dose Daptomycin following dialysis #Abd wall tenderness CT showed no abcesss or collection high suspicion for calicphylaxis will change phoslo to renvela will need to keep Ca X Phos product < 55 will start sodium thiosulfate with dialysis supportive care will talk to radiology about additional imaging studies would not recommend biopsy or incision of the wound Wan Cruz DO
[2017-11-23] MEDS: INSULIN SLIDING SCALE (NOVOLOG) 1 VIAL SQ SCH ×2 (13:15→18:06)
[2017-11-23] MEDS: SEVELAMER CARBONATE 800 MG TAB (FP) PO SCH ×2 (13:54→17:02)
--- NOTE | 2017-11-23 15:59 | PN ---
Progress Note (short form) - Note Progress Note: Catheter functioned at 350 cc/min blood flow. No need for intervention if this persists.
[2017-11-23] MEDS: DAPTOMYCIN 500 MG in SODIUM CHLORIDE 100 ML IVPB SCH (17:01)
--- NOTE | 2017-11-23 19:40 | PN ---
Progress Note (short form) - Note Progress Note: CCU. 72 year old white female known case of CAD, s/p multivessel PCI/stenting, severe LV systolic dysfunction, s/p ICD, permanent atrial fib, h/o hypotension, DM with multi system involvement, ESRD-HD, hypertension admitted with gangrenous changes involving the fingers of the left hand requiring amputations. No chest pain or SOB. 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 Patient started having diarrhea and nauseatoday. Active Medications Generic Name Dose Route Start Last Admin Trade Name Freq PRN Reason Stop Dose Admin Acetaminophen 650 mg 10/31/17 16:05 11/20/17 10:59 Tylenol - PO 650 mg Q4H PRN Administration BACK PAIN Acetaminophen 1,000 mg 11/20/17 16:03 11/21/17 12:19 Ofirmev Injection - IVPB 1,000 mg Q6H PRN Administration MODERATE PAIN Amino Acids 30 ml 11/09/17 17:30 11/23/17 17:02 Prosource No Carb Liquid Pkt PO 30 ml BID@0800,1730 YOAN Administration Aspirin 81 mg 11/01/17 10:00 11/23/17 10:55 Asa - PO 81 mg DAILY YOAN Administration Clotrimazole 1 applic 11/17/17 10:00 11/23/17 10:55 Lotrisone Cream (Small Tube) TP 1 applic BID YOAN Administration Cyanocobalamin 100 mcg 11/01/17 10:00 11/23/17 09:34 Vitamin B12 - PO 100 mcg DAILY YOAN Administration Diphenhydramine HCl 25 mg 11/09/17 11:07 11/22/17 22:52 Benadryl - PO 25 mg HS PRN Administration INSOMNIA Docusate Sodium 100 mg 11/01/17 10:00 11/23/17 09:35 Colace - PO 100 mg DAILY YOAN Administration IV Flush 10 ml 11/08/17 11:34 Kate-Cath Flush IVPUSH PRN PRN Protocol Tigecycline 50 mg/ Dextrose 100 mls @ 100 mls/hr 11/04/17 22:00 11/23/17 09: 35 IVPB 100 mls/hr BID YOAN Administration Protocol Daptomycin 500 mg/ Sodium 100 mls @ 200 mls/hr 11/21/17 11:52 11/23/17 17:01 Chloride IVPB 200 mls/hr MOWEFR YOAN Administration Protocol Insulin Aspart 1 vial 11/03/17 16:30 11/23/17 18:06 Novolog Vial Sliding Scale - SQ Not Given TIDAC [facility] Protocol Insulin Detemir 10 units 11/18/17 09:58 11/23/17 08:19 Levemir Vial SQ 10 unit BID@0700,2200 YOAN Administration Lactobacillus Acidophilus 1 tab 11/01/17 10:00 11/23/17 09:34 Bacid - PO 1 tab DAILY YOAN Administration Levothyroxine Sodium 125 mcg 11/01/17 07:00 11/23/17 06:41 Synthroid - PO 125 mcg DAILY@0700 [facility] Administration Metoprolol Tartrate 12.5 mg 11/01/17 10:00 11/23/17 09:36 Lopressor - PO Not Given DAILY YOAN Nitroglycerin 0.4 mg 10/31/17 16:05 Nitrostat - SL DAILY PRN FOR CHEST PAIN Nystatin 1 applic 11/12/17 20:45 11/23/17 09:55 Nystop Powder - TP 1 applic DAILY YOAN Administration Ondansetron HCl 4 mg 11/22/17 12:56 11/22/17 21:57 Zofran - PO 4 mg Q8H PRN Administration NAUSEA AND/OR VOMITING Oxycodone HCl 5 mg 11/21/17 10:27 11/22/17 06:41 Roxicodone - PO 5 mg Q6H PRN Administration PAIN LEVEL 6-10 Pantoprazole Sodium 40 mg 11/01/17 10:00 11/23/17 09:35 Protonix - PO 40 mg DAILY [facility] Administration Polyethylene Glycol 17 gm 11/01/17 10:00 11/23/17 10:54 Miralax (For Daily Use) - PO 17 grams DAILY YOAN Administration Senna 1 tab 10/31/17 22:00 11/22/17 21:56 Senna - PO Not Given HS [facility] Sevelamer Carbonate 1,600 mg 11/23/17 12:00 11/23/17 17:02 Renvela - PO 1,600 mg TIDCM YOAN Administration Sodium Thiosulfate 25 gm 11/25/17 08:00 Sodium Thiosulfate IVPB MoWeFr@0800 [facility] 72 year old female in no distress, no pallor, clubbing, cyanosis or jaundice. Last Vital Signs Temp Pulse Resp BP Pulse Ox 98 F 115 H 20 149/60 97 11/23/17 11:55 11/23/17 16:29 11/23/17 16:29 11/23/17 16:29 11/23/17 09:00 NECK: Supple, no JVD, carotids 1-2+, no bruits heards. anterior surgical scar. HEART: PMI in the 5th ICS, LINDA I/ 2nd right ICS. no gallops heard. LUNGS; Clear on auscultation. ABDOMEN: Soft, 2 firm lesions involving the left abdominal wall with demarcated borders. extremely tender to touch with indurated surfaces No organomegaly. EXTREMITIES: Rt. AKA, left partial amputation of the foot. partial amputation of the left index and ring finger, total amputation of the middle finger. CBC, BMP 11/21/17 05:00 11/21/17 05:00 IMPRESSION: 1. CAD s/p [place], s/p PCI/stenting. 2. Persistent, firm and extremely tender lesion involving the left abdominal wall, possible Calciphylaxis. 3. Hypothyroidism, on replacement therapy. 4. Diabetes mellitus with multisystem involvement 5. Permanent atrial fib. with controlled ventricular response. 6. Hypertension. 7. Severe LV systolic dysfunction. 8. ICD. 9. ESRD HD. 10. Diarrhea, C Diff. needs to be excluded. Recommendations: 1. Continue current cardiac therapy. 2. Evaluation of diarrhea.
[2017-11-23] MEDS ORDERED: ONDANSETRON 4 MG/2 ML VIAL ONE (20:32)
[2017-11-23] MEDS: ONDANSETRON 4 MG TABLET PO PRN ×2 (20:48→20:56)
[2017-11-23] MEDS: oxyCODONE HCL 5 MG TABLET PO PRN (21:02)
[2017-11-23] MEDS: SENNOSIDES 8.6MG TABLET (FP) PO SCH (21:27)
[2017-11-23] MEDS: diphenhydrAMINE HCL 25 MG CAPSULE (FP) PO PRN (22:56)
[2017-11-24 02:23] VITALS: TEMP 98.6
[2017-11-24] MEDS: INSULIN SLIDING SCALE (NOVOLOG) 1 VIAL SQ SCH ×3 (06:25→13:06)
[2017-11-24 06:26] LABS: INR 1.6 (0.82-1.09); PROTHROMBIN TIME (PATIENT) 18.1 SEC (9.98-11.88)
[2017-11-24] MEDS: LEVOTHYROXINE NA 125 MCG TABLET (FP) PO SCH (06:26)
[2017-11-24] MEDS: INSULIN DETEMIR 100 UNITS/ML MDV SQ SCH (06:27)
[2017-11-24 06:37] LABS: ANION GAP 13 (8-16); BLOOD UREA NITROGEN 52 mg/dL (7-18); CALCIUM 7.1 mg/dL (8.5-10.1); CHLORIDE 100 mmol/L (98-107); CO2 28 mmol/L (21-32); CREATININE 3.9 mg/dL (0.55-1.02); GLUCOSE,RANDOM 111 mg/dL (74-106); MAGNESIUM 2.2 mg/dL (1.8-2.4); POTASSIUM 4.7 mmol/L (3.5-5.1); SODIUM 141 mmol/L (136-145)
[2017-11-24] MEDS: SEVELAMER CARBONATE 800 MG TAB (FP) PO SCH ×2 (08:54→12:53)
[2017-11-24] MEDS: AMINO ACIDS/PROTEIN HYDROLYS 30 ML LIQUID.PKT PO SCH (08:54)
--- NOTE | 2017-11-24 10:12 | PN ---
Progress Note, Physician Chief Complaint: left hand wet and dry gangrene History of Present Illness: 72 yo female PMH HTN, DM, HLD, PAD, CHF, A-fib, defibrillator placement,pvd, ESRD (Dialysis on M,W,F- left chest tunnel catheter ), Right AKA amputation, Left foot amputation, and Left hand 2nd-4th digit partial amputation (02/2017) who presents with left hand pain. Found to have flexor tenosynovitis and a combination of wet and dry gangrene. Reports more abdominal wall tendeness at the site of insulin (not heparin) injections. She is less tearful today - Current Medication List Current Medications: Active Medications Acetaminophen (Tylenol -) 650 mg PO Q4H PRN PRN Reason: BACK PAIN Last Admin: 11/20/17 10:59 Dose: 650 mg Acetaminophen (Ofirmev Injection -) 1,000 mg IVPB Q6H PRN PRN Reason: MODERATE PAIN Last Admin: 11/21/17 12:19 Dose: 1,000 mg Amino Acids (Prosource No Carb Liquid Pkt) 30 ml PO BID@0800,1730 [facility] Last Admin: 11/24/17 08:54 Dose: 30 ml Aspirin (Asa -) 81 mg PO DAILY [facility] Last Admin: 11/23/17 10:55 Dose: 81 mg Clotrimazole (Lotrisone Cream (Small Tube)) 1 applic TP BID [facility] Last Admin: 11/23/17 22:48 Dose: 1 applic Cyanocobalamin (Vitamin B12 -) 100 mcg PO DAILY [facility] Last Admin: 11/23/17 09:34 Dose: 100 mcg Diphenhydramine HCl (Benadryl -) 25 mg PO HS PRN PRN Reason: INSOMNIA Last Admin: 11/23/17 22:56 Dose: 25 mg Docusate Sodium (Colace -) 100 mg PO DAILY [facility] Last Admin: 11/23/17 09:35 Dose: 100 mg IV Flush (Kate-Cath Flush) 10 ml IVPUSH PRN PRN PRN Reason: Protocol Tigecycline 50 mg/ Dextrose 100 mls @ 100 mls/hr IVPB BID YOAN PRN Reason: Protocol Last Admin: 11/23/17 22:48 Dose: 100 mls/hr Daptomycin 500 mg/ Sodium (Chloride) 100 mls @ 200 mls/hr IVPB MOWEFR YOAN PRN Reason: Protocol Last Admin: 11/23/17 17:01 Dose: 200 mls/hr Insulin Aspart (Novolog Vial Sliding Scale -) 1 vial SQ TIDAC [facility] PRN Reason: Protocol Last Admin: 11/24/17 06:25 Dose: Not Given Insulin Detemir (Levemir Vial) 10 units SQ BID@0700,2200 [facility] Last Admin: 11/24/17 06:27 Dose: Not Given Lactobacillus Acidophilus (Bacid -) 1 tab PO DAILY [facility] Last Admin: 11/23/17 09:34 Dose: 1 tab Levothyroxine Sodium (Synthroid -) 125 mcg PO DAILY@0700 [facility] Last Admin: 11/24/17 06:26 Dose: 125 mcg Metoprolol Tartrate (Lopressor -) 12.5 mg PO DAILY [facility] Last Admin: 11/23/17 09:36 Dose: Not Given Nitroglycerin (Nitrostat -) 0.4 mg SL DAILY PRN PRN Reason: FOR CHEST PAIN Nystatin (Nystop Powder -) 1 applic TP DAILY [facility] Last Admin: 11/23/17 09:55 Dose: 1 applic Ondansetron HCl (Zofran -) 4 mg PO Q8H PRN PRN Reason: NAUSEA AND/OR VOMITING Last Admin: 11/23/17 20:56 Dose: 4 mg Oxycodone HCl (Roxicodone -) 5 mg PO Q6H PRN PRN Reason: PAIN LEVEL 6-10 Last Admin: 11/23/17 21:02 Dose: 5 mg Pantoprazole Sodium (Protonix -) 40 mg PO DAILY [facility] Last Admin: 11/23/17 09:35 Dose: 40 mg Polyethylene Glycol (Miralax (For Daily Use) -) 17 gm PO DAILY [facility] Last Admin: 11/23/17 10:54 Dose: 17 grams Senna (Senna -) 1 tab PO HS [facility] Last Admin: 11/23/17 21:27 Dose: Not Given Sevelamer Carbonate (Renvela -) 1,600 mg PO TIDCM [facility] Last Admin: 11/24/17 08:54 Dose: 1,600 mg Sodium Thiosulfate (Sodium Thiosulfate) 25 gm IVPB MoWeFr@0800 [facility] - Objective Vital Signs: Vital Signs Temperature 98.6 F 11/24/17 02:00 Pulse Rate 118 H 11/24/17 06:00 Respiratory Rate 18 11/24/17 06:00 Blood Pressure 111/65 11/24/17 06:00 O2 Sat by Pulse Oximetry (%) 97 11/23/17 21:00 Vital Signs Period Temp Pulse Resp BP Sys/Cordero Pulse Ox Last 24 Hr 98 F-98.6 F 92-120 18-20 80-159/28-100 97 Constitutional: Yes: Well Nourished, No Distress, Anxious, Obese Eyes: Yes: Conjunctiva Clear, EOM Intact HENT: Yes: Atraumatic, Normocephalic Neck: Yes: Supple Cardiovascular: Yes: Regular Rate and Rhythm, S1, S2 Respiratory: Yes: Regular, CTA Bilaterally Gastrointestinal: Yes: Normal Bowel Sounds, Soft, Abdomen, Obese, Tenderness ( Left lateral abdomen) Genitourinary: No: CVA Tenderness - Left, CVA Tenderness - Right Extremities: No: Cool, Cyanosis Edema: Yes (abdominal pannus L>>R) Wound/Incision: Yes: Sutures Intact, Unapproximated Neurological: Yes: Alert, Oriented Psychiatric: Yes: Alert, Oriented, Other (depresed mood) Labs: CBC, BMP 11/21/17 05:00 11/24/17 05:35 INR, PTT INR 1.60 (0.82-1.09) H 11/24/17 05:35 Problem List - Problems (1) Edema of abdominal wall Assessment/Plan: 72 yo female MMP including Afib on coumadin, DM type 2 and ESRD, Wet gangrene and flexor tenosynovitis left middle finger, dry gangrene of index and ring fingers, poor distal circulation on duplex with PVR left arm. POD#22 s/p Left middle finger incision and drainage of flexor tenosynovitis and revision amputation of index middle and ring fingers. on daptomycin and tygacil per ID the wound is clean. She has some bruising of the abdominal panus on the left where she has been getting insulin that has become more tender. Abdominal wall edema without radiologic evidence of abscess this no operative intervention is indicated. Abdominal wall edema Mobilize the patient PT evaluation Alternate abdominal site for inulin adequate analgesia Warm compressed to the area Left hand multiple finger gangrene IV antibiotics per ID Daily Dressing: Wound measurement: left middle open MCP [id number], clean no purulent drainage Dressing instructions: open MCP, oil emulsion, loose rolled gauze PT evaluation appreciated Follow-up plan in discharge plan Code(s): R60.0 - LOCALIZED EDEMA (2) Gangrene of hand Code(s): I96 - GANGRENE, NOT ELSEWHERE CLASSIFIED (3) Flexor tenosynovitis of finger Code(s): M65.9 - SYNOVITIS AND TENOSYNOVITIS, UNSPECIFIED (4) Cellulitis and abscess of hand Code(s): L03.119 - CELLULITIS OF UNSPECIFIED PART OF LIMB; L02.519 - CUTANEOUS ABSCESS OF UNSPECIFIED HAND (5) Anemia in ESRD (end-stage renal disease) Code(s): N18.6 - END STAGE RENAL DISEASE; D63.1 - ANEMIA IN CHRONIC KIDNEY DISEASE (6) CAD (coronary artery disease) Code(s): I25.10 - ATHSCL HEART DISEASE OF [place] CORONARY ARTERY W/O ANG PCTRS Qualifiers: Coronary Disease-Associated Artery/Lesion type: [place] artery [place] vs. 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
[2017-11-24] MEDS: TIGECYCLINE 50 MG in DEXTROSE 5%-WATER - 100 ML IVPB SCH (11:02)
[2017-11-24 12:49] VITALS: BP 103/63; PULSE 113
[2017-11-24] MEDS: LACTOBACILLUS ACIDOPHILUS 1 EACH TAB (FP) PO SCH (12:53)
[2017-11-24] MEDS: PANTOPRAZOLE 40 MG TABLET (FP) PO SCH (12:54)
[2017-11-24] MEDS: ASPIRIN 81 MG CHEWABLE TABLETS PO SCH (12:54)
[2017-11-24] MEDS: CYANOCOBALAMIN (VITAMIN B-12) 100 MCG TABLET PO SCH (12:55)
--- NOTE | 2017-11-24 12:55 | PN ---
Progress Note, Physician Chief Complaint: has pain in left side of abdomen--soft tissue swelling see dc summary - Current Medication List Current Medications: Active Medications Acetaminophen (Tylenol -) 650 mg PO Q4H PRN PRN Reason: BACK PAIN Last Admin: 11/20/17 10:59 Dose: 650 mg Acetaminophen (Ofirmev Injection -) 1,000 mg IVPB Q6H PRN PRN Reason: MODERATE PAIN Last Admin: 11/21/17 12:19 Dose: 1,000 mg Amino Acids (Prosource No Carb Liquid Pkt) 30 ml PO BID@0800,1730 [facility] Last Admin: 11/24/17 08:54 Dose: 30 ml Aspirin (Asa -) 81 mg PO DAILY [facility] Last Admin: 11/23/17 10:55 Dose: 81 mg Clotrimazole (Lotrisone Cream (Small Tube)) 1 applic TP BID [facility] Last Admin: 11/23/17 22:48 Dose: 1 applic Cyanocobalamin (Vitamin B12 -) 100 mcg PO DAILY [facility] Last Admin: 11/23/17 09:34 Dose: 100 mcg Diphenhydramine HCl (Benadryl -) 25 mg PO HS PRN PRN Reason: INSOMNIA Last Admin: 11/23/17 22:56 Dose: 25 mg Docusate Sodium (Colace -) 100 mg PO DAILY [facility] Last Admin: 11/23/17 09:35 Dose: 100 mg IV Flush (Kate-Cath Flush) 10 ml IVPUSH PRN PRN PRN Reason: Protocol Tigecycline 50 mg/ Dextrose 100 mls @ 100 mls/hr IVPB BID YOAN PRN Reason: Protocol Last Admin: 11/24/17 11:02 Dose: 100 mls/hr Daptomycin 500 mg/ Sodium (Chloride) 100 mls @ 200 mls/hr IVPB MOWEFR YOAN PRN Reason: Protocol Last Admin: 11/23/17 17:01 Dose: 200 mls/hr Insulin Aspart (Novolog Vial Sliding Scale -) 1 vial SQ TIDAC [facility] PRN Reason: Protocol Last Admin: 11/24/17 06:25 Dose: Not Given Insulin Detemir (Levemir Vial) 10 units SQ BID@0700,2200 [facility] Last Admin: 11/24/17 06:27 Dose: Not Given Lactobacillus Acidophilus (Bacid -) 1 tab PO DAILY [facility] Last Admin: 11/23/17 09:34 Dose: 1 tab Levothyroxine Sodium (Synthroid -) 125 mcg PO DAILY@0700 [facility] Last Admin: 11/24/17 06:26 Dose: 125 mcg Metoprolol Tartrate (Lopressor -) 12.5 mg PO DAILY [facility] Last Admin: 11/23/17 09:36 Dose: Not Given Nitroglycerin (Nitrostat -) 0.4 mg SL DAILY PRN PRN Reason: FOR CHEST PAIN Nystatin (Nystop Powder -) 1 applic TP DAILY [facility] Last Admin: 11/23/17 09:55 Dose: 1 applic Ondansetron HCl (Zofran -) 4 mg PO Q8H PRN PRN Reason: NAUSEA AND/OR VOMITING Last Admin: 11/23/17 20:56 Dose: 4 mg Pantoprazole Sodium (Protonix -) 40 mg PO DAILY [facility] Last Admin: 11/23/17 09:35 Dose: 40 mg Polyethylene Glycol (Miralax (For Daily Use) -) 17 gm PO DAILY [facility] Last Admin: 11/23/17 10:54 Dose: 17 grams Senna (Senna -) 1 tab PO HS [facility] Last Admin: 11/23/17 21:27 Dose: Not Given Sevelamer Carbonate (Renvela -) 1,600 mg PO TIDCM [facility] Last Admin: 11/24/17 08:54 Dose: 1,600 mg Sodium Thiosulfate (Sodium Thiosulfate) 25 gm IVPB MoWeFr@0800 [facility] - Objective Vital Signs: Vital Signs Temperature 98.6 F 11/24/17 02:00 Pulse Rate 113 H 11/24/17 12:48 Respiratory Rate 18 11/24/17 12:48 Blood Pressure 103/63 11/24/17 12:48 O2 Sat by Pulse Oximetry (%) 97 11/23/17 21:00 Constitutional: Yes: No Distress Cardiovascular: Yes: Regular Rate and Rhythm Respiratory: Yes: Diminished Gastrointestinal: Yes: Normal Bowel Sounds, Soft, Tenderness (left soft tissue swelling) Extremities: Yes: Amputation Edema: No Labs: CBC, BMP 11/21/17 05:00 11/24/17 05:35 INR, PTT INR 1.60 (0.82-1.09) H 11/24/17 05:35 Problem List - Problems (1) Cellulitis and abscess of hand Code(s): L03.119 - CELLULITIS OF UNSPECIFIED PART OF LIMB; L02.519 - CUTANEOUS ABSCESS OF UNSPECIFIED HAND (2) Anemia Code(s): D64.9 - ANEMIA, UNSPECIFIED Qualifiers: Anemia type: other cause Other causes of anemia: chronic disease, kidney (3) Atrial fibrillation Code(s): I48.91 - UNSPECIFIED ATRIAL FIBRILLATION Qualifiers: Atrial fibrillation type: unspecified Qualified Code(s): I48.91 - Unspecified atrial fibrillation (4) DM type 2 causing complication Code(s): E11.8 - TYPE 2 DIABETES MELLITUS WITH UNSPECIFIED COMPLICATIONS Qualifiers: Diabetes mellitus retirement insulin use: with retirement use Qualified Code( s): E11.8 - Type 2 diabetes mellitus with unspecified complications; Z79.4 - care home (current) use of insulin; 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; 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; Z79.4 - care home (current) use of insulin (5) ESRD (end stage renal disease) on dialysis Code(s): N18.6 - END STAGE RENAL DISEASE; Z99.2 - DEPENDENCE ON RENAL DIALYSIS Assessment/Plan Abx per ID-- needs total 6 weeks-- Dapto +Tigecil-- spoke with nurse-- needs picc line for antibiotics-- Tunneled cath today continue other meds monitor bgm-- on Levemir dc planning-- likely [facility]-- will need to get Daptomycin available prior to discharge- .She will have transport from [place] to dialysis 3 days a week pain control dialysis per renal will follow BP stable Prostat BID permacath is functioning well
[2017-11-24] MEDS: DOCUSATE SODIUM 100 MG CAPSULE (FP) PO SCH (12:56)
[2017-11-24] MEDS: METOPROLOL TARTRATE 25 MG TABLET (FP) PO SCH (12:58)
--- NOTE | 2017-11-24 13:19 | DS ---
Physical Examination Vital Signs: Vital Signs Temperature 98.6 F 11/24/17 02:00 Pulse Rate 113 H 11/24/17 13:15 Respiratory Rate 18 11/24/17 13:15 Blood Pressure 103/63 11/24/17 13:15 O2 Sat by Pulse Oximetry (%) 97 11/23/17 21:00 Constitutional: Yes: No Distress, Calm Cardiovascular: Yes: Pulse Irregular Respiratory: Yes: Diminished Gastrointestinal: Yes: Normal Bowel Sounds, Soft. No: Tenderness Extremities: Yes: Amputation Edema: No Labs: CBC, BMP 11/21/17 05:00 11/24/17 05:35 Discharge Summary Reason For Visit: CELLULITIS OF LEFT HAND Current Active Problems Cellulitis and abscess of hand (Acute) Cellulitis of left hand (Acute) Diabetes mellitus with peripheral angiopathy with gangrene (Acute) Edema of abdominal wall (Acute) Flexor tenosynovitis of finger (Acute) Gangrene of hand (Acute) Suppurative tenosynovitis of flexor tendon of left hand (Acute) Hospital Course: - Admission History of Present Illness: The patient is a 72 year old female with extensive past medical history of HTN , DM, HLD, PAD, CHF, A-fib, defibrillator placement,pvd, ESRD (Dialysis on M,W, F- left chest tunnel catheter ), R ATK amputation, L foot amputation, and L hand 2nd-4th digit partial amputation (02/2017) who presents with left hand pain. Patient reports worsening left palmar and dorsal hand erythema, and pain for the past month. Recently started on Bactrim (Day 5) for left hand cellulits. 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 No: Hematuria Heme/Onc: Yes: Anemia Infectious Disease: Yes: MRSA Musculoskeletal: Yes: Other (R rotator cuff repair) Endocrine: Yes: Diabetes Mellitus, Hypothyroidism - Past Surgical History Past Surgical History: Yes: Amputation (Rt AKA, left TMA), Hysterectomy ( thyroid surgery), Stent Hospitalization Course Pt was admitted to the floors initially , seen by ID and Surgeon-- underwent amputation of left 2nd and 4th fingers-10/31/17- xrays showed osteomyelitis extending distally.During course of hospitalization, rapid response was called for hypotensive episode-- thought to be due to opioid meds-- she was transferred to telemetry . Seen by cardiology. cardiac enzymes negative for ACS. Course complicated by pain and swelling to left side of abdomen-- Sono and Ct abd-- did not show abscess , fluid collection. 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 [facility] Time spent for preparing discharge -- 30 min Condition: Improved - Instructions Diet, Activity, Other Instructions: Postoperative instructions: You had a revision amputation of left index middle and ringer fingers on 10/31/[address] Freddie Swenson of [facility]. Activity: Resume your usual activities gradually, but no heavy exertion or lifting more than 10-15 pounds for 4-6 weeks. Sutures will needs to be removed at approximately 14-20 days following surgery, unless you have been told otherwise. May shower and get the area wet do not submerge in a bath until instructed. Pain: For pain, you may use and alternate Tylenol (acetaminophen) and/or ibuprofen every 6 hours each as needed; this means that you can take one OR the other at 3-hour intervals. If you are prescribed a Tylenol/narcotic combination for severe pain, use it instead of plain Tylenol as needed and switch back when your pain starts decreasing. Do not take more than 4000mg of acetaminophen in a day. Take medications as prescribed or indicated on the labeling. Follow-up: Call Dr. Swenson' office at [phone] to make your postop appointment (Tuesday 1-2 weeks after surgery as advised). Clinic is held in the Diagnostic [facility] on the first floor of [facility]. Call the office if you have: * increasing pain not responsive to pain medication * fever of 101F or higher * unusual or increasing bleeding or drainage from wounds * increasing redness or swelling at wound sites Also, see your primary medical doctor within 1-2 weeks. Antibiotics needed skilled nursing -- end date december 16 Referrals: Jessenia Galarza MD [Primary Care Provider] - Disposition: [facility] - Home Medications Comprehensive Discharge Medication List: Ambulatory Orders Aspirin 81 mg PO DAILY 10/30/17 Atorvastatin Ca [Lipitor] 80 mg PO HS 10/30/17 Cyanocobalamin [Vitamin B12 -] 100 mcg PO DAILY 10/30/17 Lactobacillus Acidophilus [Acidophilus] 1 each PO DAILY 10/30/17 Levothyroxine [Synthroid -] 125 mcg PO DAILY 10/30/17 Melatonin 10 mg PO HS 10/30/17 Multivitamin [Daily Multiple Vitamin] 1 each PO DAILY 10/30/17 Nitroglycerin Sublingual [Nitrostat -] 0.4 mg SL ONCE 10/30/17 Oxycodone HCl 5 mg PO ASDIR 10/30/17 Pantoprazole Sodium [Protonix] 40 mg PO DAILY 10/30/17 Acetaminophen [Tylenol .Regular Strength -] 650 mg PO Q4H PRN #30 tablet Amino Acids/Protein Hydrolys [Prosource No Carb Liquid Pkt] 30 ml PO BID@0800, 1730 #20 packet 11/24/17 Apixaban [Eliquis] 2.5 mg PO BID #60 tablet 11/24/17 Clotrimazole/Betamet Diprop [Lotrisone -] 1 applic TP BID #10 tube 11/24/17 Daptomycin [Cubicin (Restricted To Id) -] 500 mg IVPB MOWEFR #30 vial 11/24/17 Diphenhydramine HCl [Benadryl Capsule -] 25 mg PO HS PRN #30 capsule 11/24/17 Insulin (Levemir) [Levemir Vial] 10 unit SQ BID #0 unit 11/24/17 Insulin Sliding Scale [Novolog Vial Sliding Scale -] 1 vial SQ TIDAC units 10/13 Metoprolol Tartrate [Lopressor -] 12.5 mg PO DAILY 30 Days tablet 11/24/17 Ondansetron [Zofran -] 4 mg PO Q8H PRN #30 tablet 11/24/17 Sevelamer Carbonate [Renvela -] 1,600 mg PO TIDCM #90 tab 11/24/17 Sodium Thiosulfate 25 gm IVPB MoWeFr@0800 #100 ml 11/24/17 Tigecycline [Tygacil] 50 mg IV BID #30 vial 11/24/17 oxyCODONE HCL [Roxicodone -] 5 mg PO Q6H PRN #30 tablet MDD 4 11/24/17
--- NOTE | 2017-11-24 17:33 | PN ---
Progress Note (short form) - Note Progress Note: Renal follow up for ESRD on HD Pt seen and examined at the bedside for tunneled IV catheter insertion today for discharge today continues to have pain in left side of abdomen Vital Signs Temperature 98.6 F 11/24/17 13:15 Pulse Rate 113 H 11/24/17 13:15 Respiratory Rate 18 11/24/17 13:15 Blood Pressure 103/63 11/24/17 13:15 O2 Sat by Pulse Oximetry (%) 97 11/24/17 09:00 Intake & Output 11/21/17 11/22/17 11/23/17 11/24/17 23:59 23:59 23:59 23:59 Intake Total 380 120 540 20 Output Total 400 Balance 380 -280 540 20 NAD RRR Right AKA left hand in dressing LLQ abd wall tenderness, no masses, thickened skin CBC, BMP 11/21/17 05:00 11/24/17 05:35 Current Medications Acetaminophen (Tylenol -) 650 mg PO Q4H PRN PRN Reason: BACK PAIN Last Admin: 11/20/17 10:59 Dose: 650 mg Acetaminophen (Ofirmev Injection -) 1,000 mg IVPB Q6H PRN PRN Reason: MODERATE PAIN Last Admin: 11/21/17 12:19 Dose: 1,000 mg Amino Acids (Prosource No Carb Liquid Pkt) 30 ml PO BID@0800,1730 [facility] Last Admin: 11/24/17 08:54 Dose: 30 ml Aspirin (Asa -) 81 mg PO DAILY [facility] Last Admin: 11/24/17 12:54 Dose: 81 mg Clotrimazole (Lotrisone Cream (Small Tube)) 1 applic TP BID [facility] Last Admin: 11/23/17 22:48 Dose: 1 applic Cyanocobalamin (Vitamin B12 -) 100 mcg PO DAILY [facility] Last Admin: 11/24/17 12:55 Dose: 100 mcg Diphenhydramine HCl (Benadryl -) 25 mg PO HS PRN PRN Reason: INSOMNIA Last Admin: 11/23/17 22:56 Dose: 25 mg Docusate Sodium (Colace -) 100 mg PO DAILY [facility] Last Admin: 11/24/17 12:56 Dose: Not Given IV Flush (Kate-Cath Flush) 10 ml IVPUSH PRN PRN PRN Reason: Protocol Tigecycline 50 mg/ Dextrose 100 mls @ 100 mls/hr IVPB BID [facility] PRN Reason: Protocol Last Admin: 11/24/17 11:02 Dose: 100 mls/hr Daptomycin 500 mg/ Sodium (Chloride) 100 mls @ 200 mls/hr IVPB MOWEFR [facility] PRN Reason: Protocol Last Admin: 11/23/17 17:01 Dose: 200 mls/hr Insulin Aspart (Novolog Vial Sliding Scale -) 1 vial SQ TIDAC [facility] PRN Reason: Protocol Last Admin: 11/24/17 13:06 Dose: 5 units Insulin Detemir (Levemir Vial) 10 units SQ BID@0700,2200 [facility] Last Admin: 11/24/17 06:27 Dose: Not Given Lactobacillus Acidophilus (Bacid -) 1 tab PO DAILY [facility] Last Admin: 11/24/17 12:53 Dose: 1 tab Levothyroxine Sodium (Synthroid -) 125 mcg PO DAILY@0700 [facility] Last Admin: 11/24/17 06:26 Dose: 125 mcg Metoprolol Tartrate (Lopressor -) 12.5 mg PO DAILY [facility] Last Admin: 11/24/17 12:58 Dose: 12.5 mg Nitroglycerin (Nitrostat -) 0.4 mg SL DAILY PRN PRN Reason: FOR CHEST PAIN Nystatin (Nystop Powder -) 1 applic TP DAILY [facility] Last Admin: 11/23/17 09:55 Dose: 1 applic Ondansetron HCl (Zofran -) 4 mg PO Q8H PRN PRN Reason: NAUSEA AND/OR VOMITING Last Admin: 11/23/17 20:56 Dose: 4 mg Pantoprazole Sodium (Protonix -) 40 mg PO DAILY [facility] Last Admin: 11/24/17 12:54 Dose: 40 mg Polyethylene Glycol (Miralax (For Daily Use) -) 17 gm PO DAILY [facility] Last Admin: 11/23/17 10:54 Dose: 17 grams Senna (Senna -) 1 tab PO HS [facility] Last Admin: 11/23/17 21:27 Dose: Not Given Sevelamer Carbonate (Renvela -) 1,600 mg PO TIDCM [facility] Last Admin: 11/24/17 12:53 Dose: 1,600 mg Sodium Thiosulfate (Sodium Thiosulfate) 25 gm IVPB MoWeFr@0800 YOAN 72 year old woman with PMhx of ESRD on HD, Hypertension, DM on Insulin, PVD who presented with worsening hand pain. 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
[2017-11-25] MEDS ORDERED: SODIUM THIOSULFATE 12.5 GM/50 ML VIAL IVPB SCH (08:00)
== END 2017-11-24 17:42 | DRG 255 ==
LOC: JER 13:29 → JERBED 16:00 → J5S 20:03 → J2W 11-03 14:25
PROVIDERS: ADMIT Internal Medicine; ATTEND Internal Medicine
PROC: 0X6P0Z1 Detachment at Left Index Finger, High, Open Approach (ICD-10-PCS; 2017-10-31)
PROC: 0X6T0Z1 Detachment at Left Ring Finger, High, Open Approach (ICD-10-PCS; 2017-10-31)
PROC: 0P9 Upper Bones, Drainage (ICD-10-PCS; 2017-10-31)
PROC: 0X6R0Z0 Detachment at Left Middle Finger, Complete, Open Approach (ICD-10-PCS; principal; 2017-10-31 13:00)
PROC: 5A1D90Z Performance of Urinary Filtration, Continuous, Greater than 18 hours Per Day (ICD-10-PCS; 2017-11-23)
PROC: 0JHH3XZ Insertion of Tunneled Vascular Access Device into Left Lower Arm Subcutaneous Tissue and Fascia, Percutaneous Approach (ICD-10-PCS; 2017-11-24)
PROC: 02HV33Z Insertion of Infusion Device into Superior Vena Cava, Percutaneous Approach (ICD-10-PCS; 2017-11-24)
DX: E11.52 Type 2 diabetes mellitus with diabetic peripheral angiopathy with gangrene (principal); N18.6 End stage renal disease; I96 Gangrene, not elsewhere classified; M86.142 Other acute osteomyelitis, left hand; I13.2 Hypertensive heart and chronic kidney disease with heart failure and with stage 5 chronic kidney disease, or end stage renal disease; L03.114 Cellulitis of left upper limb; M65.9 Synovitis and tenosynovitis, unspecified; I50.9 Heart failure, unspecified; E78.5 Hyperlipidemia, unspecified; I73.9 Peripheral vascular disease, unspecified; E11.22 Type 2 diabetes mellitus with diabetic chronic kidney disease; Z99.2 Dependence on renal dialysis; D63.1 Anemia in chronic kidney disease; Z98.61 Coronary angioplasty status; E03.9 Hypothyroidism, unspecified; I48.2 Chronic atrial fibrillation; I25.119 Atherosclerotic heart disease of native coronary artery with unspecified angina pectoris; I95.9 Hypotension, unspecified; S30.1XXA Contusion of abdominal wall, initial encounter; X58.XXXA Exposure to other specified factors, initial encounter; Y93.9 Activity, unspecified; Y92.89 Other specified places as the place of occurrence of the external cause; Y99.8 Other external cause status
CPT/HCPCS: 36415; 36558; 71045-TC-FY; 73130-TC-LR-FY; 74176-TC; 75827-TC-FY; 76705; 77001-TC-FY; 80048; 80053; 82550; 82565; 82962; 83036; 83605; 83735; 83970; 84100; 84443; 84484; 84520; 85025; 85027; 85610; 85730; 86704; 86706; 86708; 86803; 86850; 86870; 86900; 86901; 86902; 87040; 87070; 87186; 87205; 87340; 88305-TC; 88311-TC; 93005; 93010; 93306-TC; 93931; 93971-TC; 94010; 94760; 97162-GP; 99285-25; C1751; G0480; J0878; J0885; J1644; J3243

== ENCOUNTER 2017-12-21 22:35 | Inpatient (IN) | payer OTHER ==
--- NOTE | 2017-12-21 22:56 | PDOC ---
History of Present Illness - General History Source: Patient Exam Limitations: No Limitations - History of Present Illness Initial Comments: 12/21/17 23:36 The patient is a 72 year old female brought via EMS and presenting with her family from [facility], with a significant past medical history of HTN, NIDDM (on Insulin), HLD, PAD, CHF, A-fib, defibrillator placement, ESRD ( dialysis on M,W,F-left chest tunnel catheter), R ATK amputation, L foot amputation and L hand 2nd-4th digit amputation (03/12), who presents to the emergency department complaining of multiple left lower extremity wounds with oozing, erythema and pain. The family notes that the patient's swelling on the left leg was worse yesterday than today but that today she seems to be in more pain, to the point that the leg cant be moved without causing an exacerbation of the pain. The patient had dialysis today and received antibiotics at the time. She notes that she took an Oxycodene at 9pm today which has helped with her pain. The patient currently has a pick line on the right side if her chest, last cleaned on 12/05/2017. The pattient denies chest pain, shortness of breath, headache or dizziness. Denies fever, chills, nausea, vomiting, diarrhea and constipation. Denies dysuria, frequency, urgency and hematuria. Allergies: Augmentin, adhesive tape. Past surgical history: R.Rotator Cuff, R.AKA. LEFT MID FOOT AMPUTATION, cardiac stents x3, multiple finger amputation left hand (2nd and 4th digit to the mid finger and 3rd digit completely) Social History: No alcohol, tobacco or drug use reported PMD: Dr. Florencio Galarza Infectious Disease: Dr. Das Nephrology: Dr. Wan Cruz Vascular Surgeon: Dr. Dharmesh Hilton and Dr. Supa Walter Hand Surgeon: Dr. Swenson <Jonathan Hudson - Last Filed: 12/21/17 23:41> <Ashley Ledbetter - Last Filed: 12/22/17 00:51> - General Chief Complaint: Pain, Acute Stated Complaint: LEFT LEG PAIN Time Seen by Provider: 12/21/17 22:39 Past History <Jonathan Hudson - Last Filed: 12/21/17 23:41> - Past Medical History Anemia: Yes Asthma: No Cancer: No Cardiac Disorders: Yes (Atherosclerotic Heart Disease, Ischemia) CVA: No COPD: No CHF: Yes (6 YEARS AGO) Dementia: No Diabetes: Yes (Type II) Dialysis: Yes () GI Disorders: No Disorders: Yes (CRF;dialysis [facility] [phone]) HTN: Yes Hypercholesterolemia: Yes Liver Disease: No Seizures: No Thyroid Disease: Yes (Thyrotoxicosis) - Surgical History Abdominal Surgery: No Appendectomy: No Cardiac Surgery: Yes (STENTS X3) Cholecystectomy: No Lung Surgery: No Neurologic Surgery: No Orthopedic Surgery: Yes (R.Rotator Cuff, R.AKA. LEFT MID FOOT AMPUTATION) - Immunization History Immunization Up to Date: Yes - Suicide/Smoking/Psychosocial Hx Smoking Status: No Smoking History: Never smoked Have you smoked in the past 12 months: No Number of Cigarettes Smoked Daily: 0 Information on smoking cessation initiated: No Hx Alcohol Use: No Drug/Substance Use Hx: No Substance Use Type: None Hx Substance Use Treatment: No <Ashley Ledbetter - Last Filed: 12/22/17 00:51> - Past Medical History Allergies/Adverse Reactions: Allergies Allergy/AdvReac Type Severity Reaction Status Date / Time adhesive tape Allergy Severe SKIN TEAR Verified 12/21/17 22:39 amoxicillin trihydrate AdvReac Severe DIARRHEA Verified 12/21/17 22:39 [From Augmentin] potassium clavulanate AdvReac Severe DIARRHEA Verified 12/21/17 22:39 [From Augmentin] Home Medications: Ambulatory Orders Lactobacillus Acidophilus [Acidophilus] 1 each PO BID 10/30/17 Acetaminophen [Tylenol .Regular Strength -] 650 mg PO Q4H PRN #30 tablet Amino Acids/Protein Hydrolys [Prosource No Carb Liquid Pkt] 30 ml PO BID@0800, 1730 #20 packet 11/24/17 Apixaban [Eliquis] 2.5 mg PO BID #60 tablet 11/24/17 Daptomycin [Cubicin (Restricted To Id) -] 500 mg IVPB MOWEFR #30 vial 11/24/17 Insulin (Levemir) [Levemir Vial] 10 unit SQ BID #0 unit 11/24/17 Metoprolol Tartrate [Lopressor -] 12.5 mg PO DAILY 30 Days tablet 11/24/17 Ondansetron [Zofran -] 4 mg PO Q8H PRN #30 tablet 11/24/17 Sevelamer Carbonate [Renvela -] 1,600 mg PO TIDCM #90 tab 11/24/17 Sodium Thiosulfate 25 gm IVPB MoWeFr@0800 #100 ml 11/24/17 Tigecycline [Tygacil] 50 mg IV BID #30 vial 11/24/17 oxyCODONE HCL [Roxicodone -] 5 mg PO Q6H PRN #30 tablet MDD 4 11/24/17 Diphenhydramine HCl [Benadryl Capsule -] 25 mg PO DAILY PRN 12/05/17 Insulin Aspart [Novolog Flexpen] 0 unit SQ TID PRN 12/05/17 Nut.tx.imp.renal Fxn,Lac-Reduc [Nepro Carb Steady] 8 oz PO BID 12/05/17 Aspirin [ASA -] 81 mg PO DAILY #30 tab.chew 12/08/17 Bacitracin - [Bacitracin Topical Ointment -] 1 applic TP DAILY tube 12/08/17 Levothyroxine [Synthroid -] 125 mcg PO DAILY@0700 #90 tablet 12/08/17 Nystatin Oral Suspension - [Nystatin Oral Susp 396567 Units/5 ML -] 500,000 units PO Q6HPO #10 cup 12/08/17 Nystatin Powder [Nystop Powder -] 1 applic TP BID #30 applic 12/08/17 Pantoprazole Sodium [Protonix -] 40 mg PO DAILY #60 tablet.ec 12/08/17 Review of Systems - Review of Systems Able to Perform ROS?: Yes Comments:: 12/21/17 23:36 GENERAL/CONSTITUTIONAL: No fever or chills. No weakness. HEAD, EYES, EARS, NOSE AND THROAT: No change in vision. No ear pain or discharge. No sore throat. CARDIOVASCULAR: No chest pain or shortness of breath RESPIRATORY: No cough, wheezing, or hemoptysis. GASTROINTESTINAL: No nausea, vomiting, diarrhea or constipation. GENITOURINARY: No dysuria, frequency, or change in urination. MUSCULOSKELETAL: No joint or muscle swelling or pain. No neck or back pain. SKIN: (+) Left lower extremity multiple skin tares with oozing and pain. NEUROLOGIC: No headache, vertigo, loss of consciousness, or change in strength/ sensation. ENDOCRINE: No increased thirst. No abnormal weight change HEMATOLOGIC/LYMPHATIC: No anemia, easy bleeding, or history of blood clots. ALLERGIC/IMMUNOLOGIC: No hives or skin allergy. <Jonathan Hudson - Last Filed: 12/21/17 23:41> *Physical Exam - Vital Signs Last Vital Signs Temp Pulse Resp BP Pulse Ox 98.0 F 110 H 18 112/68 96 12/21/17 22:40 12/21/17 22:40 12/21/17 22:40 12/21/17 22:40 12/21/17 22:40 - Physical Exam Comments: 12/21/17 23:37 GENERAL: Awake, alert, and fully oriented, in no acute distress HEAD: No signs of trauma, normocephalic, atraumatic EYES: PERRLA, EOMI, sclera anicteric, conjunctiva clear ENT: Auricles normal inspection, hearing grossly normal, nares patent, oropharynx clear without exudates. Moist mucosa NECK: Normal ROM, supple, no lymphadenopathy, JVD, or masses LUNGS: No distress, speaks full sentences, clear to auscultation bilaterally CHEST: (+) Pick like on right chest. Perm catheter on left chest HEART: Regular rate and rhythm, normal S1 and S2, no murmurs, rubs or gallops, peripheral pulses normal and equal bilaterally. ABDOMEN: Soft, nontender, normoactive bowel sounds. No guarding, no rebound. No masses EXTREMITIES: (+) Right leg AKA NEUROLOGICAL: Cranial nerves II through XII grossly intact. Normal speech, normal gait, no focal sensorimotor deficits SKIN: (+) Calcification nodule to the left abdomen wall. Right hand dorsal aspect has scar with scare with no surroudnig erytehema, eryheman necrodci s of the nail bed right pointer finger. Left arm - Old fisutla without bruit or thrill Left hand - sutures in palce to difits 2 and 4 but with black scare at both surgical sites, no surroudning erythema, 5th diigit has redness and startng ulceration of middle phalange region Middle finger amputed Redness with mild warth at the wound at the anterior tibia of left lower extrenity Sensitive skin but no lymphogetic of the left knee. <Jonathan Hudson - Last Filed: 12/21/17 23:41> - Vital Signs Last Vital Signs Temp Pulse Resp BP Pulse Ox 98.0 F 110 H 18 112/68 96 12/21/17 22:40 12/21/17 22:40 12/21/17 22:40 12/21/17 22:40 12/21/17 22:40 <Ashley Ledbetter - Last Filed: 12/22/17 00:51> Heart Score/ECG Review - ECG Intrepretation Comment:: 12/22/17 00:40 afib at 102, nl axis, q waves anteriorly that are age indeterminate, no acute st /t wave findings <Ashley Ledbetter - Last Filed: 12/22/17 00:51> ED Treatment Course - LABORATORY CBC & Chemistry Diagram: 12/21/17 23:30 12/21/17 23:30 <Ashley Ledbetter - Last Filed: 12/22/17 00:51> Medical Decision Making - Medical Decision Making 12/21/17 23:07 a/p: 72yo female with ESRD on HD - PAD with osteo - finished dapto/tigacyl today -acute onset of worsening L leg pain with new ulceration and drainage from a wound to the L lower leg -eschars to L leg, L hand -poor wound healing to L hand -no f/c -will obtain labs, cultures, wound culture to L leg -will discuss with ID -received abx on HD today per the patient -will monitor and reassess 12/21/17 23:[address] Das - since the patient received abx today - obtain cultures and re-eval 12/22/17 00:21 pt states she definitely received iv abx on HD today 12/22/17 00:42 case discussed again with Dr. Das who recommended cefepime x 1 dose and gent x 1 dose. cultures sent 12/22/17 00:[address] Alex Gill who accepts pt to service 12/22/17 00:51 pt agrees to stay for further eval dopplers/arterial and venous pending <Ashley Ledbetter - Last Filed: 12/22/17 00:51> *DC/Admit/Observation/Transfer - Attestations Scribe Attestion: 12/21/17 23:37 Documentation prepared by Jonathan Hudson, acting as infertility medical assistant for Ashley Ledbetter DO <Jonathan Hudson - Last Filed: 12/21/17 23:41> - Discharge Dispostion Admit: Yes - Attestations Physician Attestion: 12/22/17 00:48 I, Dr. Ashley Ledbetter, DO, attest that this document has been prepared under my direction and personally reviewed by me in its entirety. I further attest, that it accurately reflects all work, treatment, procedures and medical decision -making performed by me. <Ashley Ledbetter - Last Filed: 12/22/17 00:51> Diagnosis at time of Disposition: ESRD on hemodialysis, Unilateral AKA, Status post transmetatarsal amputation of left foot, Left leg cellulitis, Leucocytosis, Leg wound, left, History of ESBL Klebsiella pneumoniae infection - Discharge Dispostion Condition at time of disposition: Fair - Referrals Referrals: Gonsalo Almonte MD [Staff Physician] - - Patient Instructions - Post Discharge Activity
[2017-12-21] MEDS ORDERED: morphine CARPU-JECT 4 MG/1 ML DISP.SYRIN IVPUSH ONE (22:58)
[2017-12-21] MEDS ORDERED: morphine SULFATE 4 MG/ML VIAL ONE (23:22)
[2017-12-21 23:52] LABS: HEMATOCRIT 28.3 % (32.4-45.2); HEMOGLOBIN 9.3 GM/dL (10.7-15.3); MCH 32.3 pg (25.7-33.7); MCHC 32.9 g/dl (32.0-36.0); MEAN CELL VOLUME 98.1 fl (80-96); MEAN PLT VOLUME 8.6 fl (7.5-11.1); PLATELET COUNT 309 K/MM3 (134-434); RBC 2.89 M/mm3 (3.60-5.2); RDW 22.5 % (11.6-15.6)
[2017-12-22 00:04] LABS: INR 2.1 (0.82-1.09); PROTHROMBIN TIME (PATIENT) 23.7 SEC (9.98-11.88)
[2017-12-22 00:06] LABS: ACTIVATED PTT 36.1 SECONDS (26.9-34.4)
[2017-12-22 00:20] LABS: ANISOCYTOSIS 3+; MACROCYTOSIS 1+; PLATELET ESTIMATE ADEQUATE
[2017-12-22 00:27] LABS: ALBUMIN 1.4 g/dl (3.4-5.0); ANION GAP 13 (8-16); BILIRUBIN,TOTAL 0.3 mg/dL (0.2-1.0); CALCIUM 7.3 mg/dL (8.5-10.1); CHLORIDE 103 mmol/L (98-107); CO2 25 mmol/L (21-32); CREATININE 2.6 mg/dL (0.55-1.02); GLUCOSE,RANDOM 198 mg/dL (74-106); MAGNESIUM 2.1 mg/dL (1.8-2.4); POTASSIUM 3.8 mmol/L (3.5-5.1); SGOT/AST 9 U/L (15-37); SGPT/ALT 15 U/L (12-78); SODIUM 141 mmol/L (136-145); TOT PROT 4.7 g/dl (6.4-8.2)
[2017-12-22 00:28] LABS: ALK PHOS 268 U/L (45-117)
[2017-12-22] MEDS ORDERED: GENTAMICIN INJECTION 100 MG in SODIUM CHLORIDE 97.5 ML IVPB ONE (00:33)
[2017-12-22] MEDS ORDERED: CEFEPIME HCL 1 GM VIAL (RESTRICTED TO ID) IVPB ONE (00:33)
[2017-12-22 00:37] LABS: BLOOD UREA NITROGEN 22 mg/dL (7-18)
[2017-12-22] MEDS ORDERED: CEFEPIME 1 GM/100 ML BAG IVPB ONE (00:39)
[2017-12-22] MEDS ORDERED: SODIUM CHLORIDE 0.9% 1000 ML INFUS.BAG IV ONE (00:41)
[2017-12-22] MEDS ORDERED: CEFEPIME 1 GM/100 ML BAG PRE-DOCKED IVPB ONE (00:45)
--- NOTE | 2017-12-22 01:11 | PN ---
Teaching Attending Note Name of Resident: Analilia Duckworth ATTENDING PHYSICIAN STATEMENT I saw and evaluated the patient. I reviewed the resident's note and discussed the case with the resident. I agree with the resident's findings and plan as documented. SUBJECTIVE: 72 F with pmhx. of HTN, HLD, CHF, CAD, PAD, DM II, ESRD on HD (M,W,F), R ATK ampuation, L. foot amputation, L hand nd-4rth digit amputation (03/12)who was recently admitted for l. hand wound, post debridement now presents with left leg swelling. She recently finished abx course of Tygacil/Dapto w. HD. States she has 10/10 LLE pain that started today. No fevers or chills. No chest pain or pressure. No shortness of breath. OBJECTIVE: Physical: VS: Vital Signs Period Temp Pulse Resp BP Sys/Cordero Pulse Ox Last 24 Hr 98.0 F 110 18 112/68 96 GEN: NAD, Resting in bed, AA0X3 HEENT: NCAT, PERRL, Throat without erythema or exudates CARD: RRR S1, S2 RESP: CTAB ABD: BSx4, NTD to palpation EXT: LLE warm with 3X3 cm L. Howard wound with surrounding erythema and edema. R. AKA, sutures to L. Digits 2/4 with black eschars. 5th digit with redness and ulceration. No 3rd digit. R. hand 2nd digit nail base with erythema and necrosis. CBCD WBC 20.0 K/mm3 (4.0-10.0) H D 12/21/17 23:30 RBC 2.89 M/mm3 (3.60-5.2) L 12/21/17 23:30 Hgb 9.3 GM/dL (10.7-15.3) L D 12/21/17 23:30 Hct 28.3 % (32.4-45.2) L D 12/21/17 23:30 MCV 98.1 fl (80-96) H 12/21/17 23:30 MCHC 32.9 g/dl (32.0-36.0) 12/21/17 23:30 RDW 22.5 % (11.6-15.6) H 12/21/17 23:30 Plt Count 309 K/MM3 (134-434) D 12/21/17 23:30 MPV 8.6 fl (7.5-11.1) 12/21/17 23:30 CMP Sodium 141 mmol/L (136-145) 12/21/17 23:30 Potassium 3.8 mmol/L (3.5-5.1) 12/21/17 23:30 Chloride 103 mmol/L (98-107) 12/21/17 23:30 Carbon Dioxide 25 mmol/L (21-32) 12/21/17 23:30 Anion Gap 13 (8-16) 12/21/17 23:30 BUN 22 mg/dL (7-18) H 12/21/17 23:30 Creatinine 2.6 mg/dL (0.55-1.02) H 12/21/17 23:30 Creat Clearance w eGFR 17.99 (>60) 12/21/17 23:30 Random Glucose 198 mg/dL (74-106) H 12/21/17 23:30 Calcium 7.3 mg/dL (8.5-10.1) L 12/21/17 23:30 Total Bilirubin 0.3 mg/dL (0.2-1.0) 12/21/17 23:30 AST 9 U/L (15-37) L 12/21/17 23:30 ALT 15 U/L (12-78) 12/21/17 23:30 Alkaline Phosphatase 268 U/L (45-117) H 12/21/17 23:30 Total Protein 4.7 g/dl (6.4-8.2) L 12/21/17 23:30 Albumin 1.4 g/dl (3.4-5.0) L 12/21/17 23:30 Duplex L: Occlusion of post. TIbial CXR: Cardiomegaly L. Base atelectesis or inflilterate (unchnaged from 12/04_ afib at 102, nl axis, q waves anteriorly that are age indeterminate, no acute st /t wave findings ASSESSMENT AND PLAN: 72 F with pmhx. of HTN, HLD, CHF, CAD, PAD, DM II, ESRD on HD (M,W,F), R ATK ampuation, L. foot amputation, L hand nd-4rth digit amputation (03/12)who was recently admitted for l. hand wound, post debridement now presents with left leg swelling. 1.) Sepsis due to Wound of L. Leg - Lucas Cx - Repeat LA - ID spoken to by ED - Cefepime/Gent X1 given in ED 2.) Left LE Edema - Duplex 3.) A- FIB - Eliquis Hold/ hep. gtt - BB 4.) ESRD on HD M/W/F - S/P HD today - Consult Nephro 5.) CAD hz - C/W home meds 6.) DM II - FS - RAISS 7.) R. Post. Tibial Occlusion - Hep. Gtt - Vasc. Consult - Hold Eliquis 8.) PAD - C/W Home meds Place in Med-Sx
--- NOTE | 2017-12-22 02:26 | HP ---
CHIEF COMPLAINT: LLE pain x 2 days PCP: Dr. Galarza HISTORY OF PRESENT ILLNESS: 72 y/o F from [facility] with PMH HTN, DM, HLD, PAD, afib (on Eliquis 2.5mg PO BID), pacemaker/defibrillator, ESRD (M, W, F dialysis; L chest tunnel cath. Anuric), R ATK amputation, L foot amputation, L hand 2nd-4th digit amputation (), who presents to the ED c/o LLE pain over the past two days. As per pt, the pain in her LLE started suddenly and has been 10/10, excruciating pain with increased severity in her L thigh. Pt noticed erythematous "blotching" on her L lateral thigh during this time, as well as increased edema and tenderness to palpation. Her pain is so severe that it has limited her movement, but was mildly alleviated with oxycodone (taken at [facility]) and percocet (taken in [facility] ED). Pt also notes rupture of a serous blister on her L medial thigh that occurred 1.5 weeks ago, and new infections developing on her L fifth digit, R 2nd digit, and a new eschar on the base of her L tib/fib. She had her last dialysis appt today (12/21) and received daptomycin and tigecycline. She has completed a 6-8 week course of these abx through a R PICC line for osteomyelitis of her L hand 2nd-4th digits. Pt also endorses constipation. Denies NELSON, fever, chills, SOB, chest pain or pressure. ER course was notable for: (1) Tachycardia 110HR (2) Leukocytosis 20 (3) H&H 9.3/28.3 (4) Cr 2.6 - improved after dialysis (5) arterial duplex- posterior tibial a. 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 Smoking: denies Alcohol: socially Drugs: denies Family History: father- colon CA, mother- passed from cardiac issues at age 96, brother- bladder CA Allergies adhesive tape Allergy (Severe, Verified 12/21/17 22:39) SKIN TEAR amoxicillin trihydrate [From Augmentin] Adverse Reaction (Severe, Verified 12/21 22:39) DIARRHEA Diarrhea "i get very sick" potassium clavulanate [From Augmentin] Adverse Reaction (Severe, Verified 22:39) DIARRHEA Diarrhea "i get very sick" morphine: caused a "rapid response" on past admission, as per patient and daughter HOME MEDICATIONS: Home Medications Medication Instructions Recorded Acetaminophen [Tylenol .Regular 650 mg PO Q4H PRN #30 tablet 11/24/17 Strength -] Amino Acids/Protein Hydrolys 30 ml PO BID@0800,1730 #20 packet 11/24/17 [Prosource No Carb Liquid Pkt] Apixaban [Eliquis] 2.5 mg PO BID #60 tablet 11/24/17 Metoprolol Tartrate [Lopressor -] 12.5 mg PO DAILY 30 Days tablet 11/24/17 Ondansetron [Zofran -] 4 mg PO Q8H PRN #30 tablet 11/24/17 Sevelamer Carbonate [Renvela -] 1,600 mg PO TIDCM #90 tab 11/24/17 Sodium Thiosulfate 25 gm IVPB MoWeFr@0800 #100 ml 11/24/17 oxyCODONE HCL [Roxicodone -] 5 mg PO Q6H PRN #30 tablet MDD 4 11/24/17 Diphenhydramine HCl [Benadryl 25 mg PO DAILY PRN 12/05/17 Capsule -] Insulin Aspart [Novolog Flexpen] 0 unit SQ TID PRN 12/05/17 Nut.tx.imp.renal Fxn,Lac-Reduc 8 oz PO BID 12/05/17 [Nepro Carb Steady] Aspirin [ASA -] 81 mg PO DAILY #30 tab.chew 12/08/17 Levothyroxine [Synthroid -] 125 mcg PO DAILY@0700 #90 tablet 12/08/17 Nystatin Oral Suspension - 500,000 units PO Q6HPO #10 cup 12/08/17 [Nystatin Oral Susp 625420 Units/5 ML -] Nystatin Powder [Nystop Powder -] 1 applic TP BID #30 applic 12/08/17 Pantoprazole Sodium [Protonix -] 40 mg PO DAILY #60 tablet.ec 12/08/17 Clotrimazole 15 gm TP DAILY 12/22/17 Collagenase Clostridium Hist. 1 applic TP DAILY 12/22/17 [Santyl -] Glimepiride 2 mg PO BID 12/22/17 Sennosides [Senna Laxative] 8.6 mg PO DAILY 12/22/17 Silver Sulfadiazine 1% Top Cr 1 applic TP ONCE 12/22/17 [Silvadene] REVIEW OF SYSTEMS CONSTITUTIONAL: Absent: fever, chills, diaphoresis, generalized weakness, malaise, loss of appetite, weight change HEENT: Absent: rhinorrhea, nasal congestion, throat pain, throat swelling, difficulty swallowing, mouth swelling, ear pain, eye pain, visual changes CARDIOVASCULAR: Absent: chest pain, syncope, palpitations, irregular heart rate, lightheadedness , peripheral edema RESPIRATORY: Absent: cough, shortness of breath, dyspnea with exertion, orthopnea, wheezing, stridor, hemoptysis GASTROINTESTINAL: Absent: abdominal pain, abdominal distension, nausea, vomiting, diarrhea, constipation, melena, hematochezia GENITOURINARY: Absent: dysuria, frequency, urgency, hesitancy, hematuria, flank pain, genital pain MUSCULOSKELETAL: Absent: myalgia, arthralgia, joint swelling, back pain, neck pain SKIN: +wound infections on upper and lower extremities Absent: rash, itching, pallor HEMATOLOGIC/IMMUNOLOGIC: Absent: easy bleeding, easy bruising, lymphadenopathy, frequent infections ENDOCRINE: Absent: unexplained weight gain, unexplained weight loss, heat intolerance, cold intolerance NEUROLOGIC: Absent: headache, focal weakness or paresthesias, dizziness, unsteady gait, seizure, mental status changes, bladder or bowel incontinence PSYCHIATRIC: Absent: anxiety, depression, suicidal or homicidal ideation, hallucinations. PHYSICAL EXAMINATION Vital Signs - 24 hr 12/21/17 22:40 Temperature 98.0 F Pulse Rate 110 H Respiratory 18 Rate Blood Pressure 112/68 O2 Sat by Pulse 96 Oximetry (%) GENERAL: Pleasant. Resting in bed, awake, alert, and fully oriented, in no acute distress. HEAD: Normal with no signs of trauma. EYES: Pupils equal, round and reactive to light, extraocular movements intact, sclera anicteric, conjunctiva clear. EARS, NOSE, THROAT: Ears normal, nares patent, oropharynx clear without exudates. NECK: Normal range of motion, supple CHEST: +R PICC, +L tunneled cath HD LUNGS: Breath sounds equal, clear to auscultation bilaterally. No wheezes, and no crackles. No accessory muscle use. HEART: tachycardic rate and rhythm- in sinus during exam, normal S1 and S2 without murmur, rub or gallop. ABDOMEN: Soft, obese, nontender, not distended, normoactive bowel sounds, no guarding, no rebound, no masses. + calcium deposit L flank MUSCULOSKELETAL: +R AKA, +L foot amputation. UPPER EXTREMITIES: +amputations, eschars on L 2nd-4th digits, new developing infection L fifth digit, R 2nd digit. LOWER EXTREMITIES: Diffuse TTP (light palpation) LLE. No peripheral edema. + eschar base of L tib/fib NEUROLOGICAL: Cranial nerves II-XII intact. Normal speech. PSYCHIATRIC: Cooperative. Pleasant SKIN: erythematous, scar s/p blister rupture- L medial tib/fib Laboratory Results - last 24 hr 12/21/17 12/21/17 12/21/17 23:30 23:30 23:30 Macrocytosis PT with INR 23.70 H INR 2.10 H PTT (Actin FS) 36.1 H Sodium 141 Potassium 3.8 Chloride 103 Carbon Dioxide 25 Anion Gap 13 BUN 22 H Creatinine 2.6 H Creat Clearance w eGFR 17.99 Random Glucose 198 H Lactic Acid 2.8 H* Calcium 7.3 L Magnesium 2.1 Total Bilirubin 0.3 AST 9 L ALT 15 Alkaline Phosphatase 268 H Total Protein 4.7 L Albumin 1.4 L Blood Type Antibody Screen 12/21/17 12/21/17 23:30 23:30 WBC 20.0 H D RBC 2.89 L Hgb 9.3 L D Hct 28.3 L D MCV 98.1 H MCH 32.3 MCHC 32.9 RDW 22.5 H Plt Count 309 D MPV 8.6 Neutrophils % No Result Required. Neutrophils % (Manual) 80.0 Band Neutrophils % 7.0 Lymphocytes % No Result Required. Lymphocytes % (Manual) 5.0 L Monocytes % (Manual) 8 Hypochromia 1+ Platelet Estimate Adequate Platelet Comment No clumping noted Poikilocytosis 2+ Anisocytosis 3+ Microcytosis 1+ Macrocytosis 1+ Albumin Blood Type A POSITIVE Antibody Screen Positive H TESTS MICRO: -LLE - gram stain, wound cx- pending -Blood cx- pending CXR: cardiomegaly, atelectasis/infiltrate at L lung base. official read pending EKG: atrial fibrillation, vent rate 102bpm,QRS 88ms, Qtc 479ms. cannot r/o anterior infarct, age undetermined L arterial duplex: occlusions of posterior tibial a. however unable to visualize intrapopliteal vessels. dorsalis pedis was not imaged. may need angiogram with next HD. discussed with Dr. Everett, radiology - Imaging healthcare management consultant. official report pending ASSESSMENT/PLAN: 72 y/o F from [facility] with PMH HTN, DM, HLD, PAD, afib (on Eliquis 2.5mg PO BID), pacemaker/defibrillator, ESRD (M, W, F dialysis; L chest tunnel cath. Anuric), R ATK amputation, L foot amputation, L hand 2nd-4th digit amputation (), who presents to the ED c/o LLE pain over the past two days. Pt admitted to med-surg for sepsis 2/2 LLE wound infection. #Sepsis 2/2 LLE wound infection -with white count - 20, afebrile, tachycardic 110HR, lactic 2.8 -extensive hx of infection- new eschar base of L tib/fib, new infections L fifth digit, R 2nd digit -received cefepime 1g, genta 100mg x 1 in ED -Continue wound care -oxycodone 5mg PO q6h PRN for pain -Apply santyl, sulfadiazine to affected areas -F/u L gram stain, wound cx, blood cx -F/u repeat lactic - at 6AM -Unable to do urine cx as pt anuric -ID consult- Dr. Das -Ortho consult- Dr. Swenson #Posterior tibial a. occlusion -As per imaging healthcare management consultant, unable to adequately assess intrapopliteal vessels, dorsalis pedis -Holding home eliquis 2.5mg PO BID -Starting on hep gtt -Vascular consult- Dr. Hilton -May require angiogram during next HD #ESRD (dialysis M, W, F) -Last session 12/21/17 -Nephro consult- Dr. Cruz #CAD -Continue aspirin 81mg PO qd #atrial fibrillation -Holding home eliquis 2.5 mg PO BID -On hep gtt - a/c -rate control - metoprolol tartate 12.5 mg PO qd #hypothyroidism -Continue levothyroxine 125 mcg PO qd #DM -ISS ACHS -BGM #F/E/N -careful with fluids at this time- ESRD patient -serial electrolytes -diabetic, sodium controlled diet #PPX DVT: on hep gtt GI: on protonix #Dispo med-surg Visit type - Emergency Visit Emergency Visit: Yes ED Registration Date: 12/22/17 Care time: The patient presented to the Emergency Department on the above date and was hospitalized for further evaluation of their emergent condition. - New Patient This patient is new to me today: Yes Date on this admission: 12/22/17 - Critical Care Critical Care patient: No Hospitalist Screening - Colonoscopy Questionnaire Colonoscopy Questionnaire: Colonoscopy Questionnaire - Patient: 50 - 75 years old and never had a screening colonoscopy: Unknown History of colon or rectal polyps, or CA: Unknown History of IBD, Crohn's disease or UC: Unknown History of abdominal radiation therapy as a child: Unknown - Relative: 1 with colon or rectal CA, or polyps at age 60 or younger: Unknown Colon or rectal CA diagnosed at age 45 or younger: Unknown Multiple relatives with colon or rectal CA: Unknown - Outcome: Screening Result: Negative Screen
[2017-12-22] MEDS ORDERED: SILVER SULFADIAZINE 1% TOP CREAM 50 GM JAR TP SCH (02:30)
[2017-12-22] MEDS ORDERED: HEPARIN NA (PORCINE) 5,000 UNITS/ML 1ML VIAL IVPUSH PRN ×2 (02:34)
[2017-12-22] MEDS ORDERED: HEPARIN NA (PORCINE) 5,000 UNITS/ML 1ML VIAL ONE (02:43)
[2017-12-22] MEDS ORDERED: HEPARIN INFUSION - 25,000 UNITS/500 ML INFUS.BAG IVPB ONE (02:44)
[2017-12-22] MEDS: HEPARIN SOD,PORK IN 0.45% NACL 25,000 UNITS/500 ML INFUS.BAG IVPB SCH (03:00)
[2017-12-22] MEDS ORDERED: oxyCODONE HCL 5 MG TABLET ONE (06:23)
[2017-12-22] MEDS ORDERED: INSULIN (NOVOLOG) ASPART 100 UNITS/ML 10ML VIAL ONE (06:26)
[2017-12-22] MEDS: INSULIN SLIDING SCALE (NOVOLOG) 1 VIAL SQ SCH ×4 (06:30→22:02)
[2017-12-22] MEDS: LEVOTHYROXINE NA 125 MCG TABLET (FP) PO SCH (06:31)
--- NOTE | 2017-12-22 07:54 | CONSULT ---
Consult Consult Specialty:: hand surgery Reason for Consultation:: left hand dry gangrene - History of Present Illness Chief Complaint: left hand post op History of Present Illness: 72 yo RHD female from [facility] with PMH HTN, DM, HLD, PAD, afib (on Eliquis 2.5mg PO BID), pacemaker/defibrillator, ESRD (M, W, F dialysis; L chest tunnel cath. Anuric), R ATK amputation, L foot amputation, L hand 2nd-4th digit amputation (03/12), who presents to the ED c/o LLE pain over the past two days. As per pt, the pain in her LLE started suddenly and has been 10/10, excruciating pain with increased severity in her L thigh. Pt noticed erythematous "blotching" on her L lateral thigh during this time, as well as increased edema and tenderness to palpation. Her pain is so severe that it has limited her movement, but was mildly alleviated with oxycodone (taken at [facility]) and percocet (taken in [facility]). Pt also notes rupture of a serous blister on her L medial thigh that occurred 1.5 weeks ago, and new infections developing on her L fifth digit, R 2nd digit, and a new eschar on the base of her L tib/fib. She had her last dialysis appt today (12/21) and received daptomycin and tigecycline. She has completed a 6-8 week course of these abx through a R PICC line for osteomyelitis of her L hand 2nd-4th digits. Pt also endorses constipation. Denies NELSON, fever, chills, SOB, chest pain or pressure. We were asked to assess and follow for upper extremity. 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 No: Hematuria Infectious Disease: Yes: MRSA Musculoskeletal: Yes: Other (R rotator cuff repair) Endocrine: Yes: Diabetes Mellitus, Hypothyroidism Additional Medical History: Steal syndrome , PVD- s//p surgery. End stage renal disease (hemodialysis 3x per week). Congestive heart failure. Diabetes. Hypertension. Hyperlipidemia. Peripheral vascular occlusive disease. Hypothyroidism. Anemia. Gastroesophageal reflux disease - Past Surgical History Past Surgical History: Yes: Amputation (Rt AKA, left TMA), Hysterectomy ( thyroid surgery), Stent - Alcohol/Substance Use Hx Alcohol Use: No History of Substance Use: reports: None - Smoking History Smoking history: Never smoked Have you smoked in the past 12 months: No Aproximately how many cigarettes per day: 0 - Social History Usual Living Arrangement: Half-Way ADL: Support Services History of Recent Travel: No Home Medications - Allergies Allergies/Adverse Reactions: Allergies Allergy/AdvReac Type Severity Reaction Status Date / Time adhesive tape Allergy Severe SKIN TEAR Verified 12/21/17 22:39 amoxicillin trihydrate AdvReac Severe DIARRHEA Verified 12/21/17 22:39 [From Augmentin] potassium clavulanate AdvReac Severe DIARRHEA Verified 12/21/17 22:39 [From Augmentin] - Home Medications Home Medications: Ambulatory Orders Acetaminophen [Tylenol .Regular Strength -] 650 mg PO Q4H PRN #30 tablet Amino Acids/Protein Hydrolys [Prosource No Carb Liquid Pkt] 30 ml PO BID@0800, 1730 #20 packet 11/24/17 Apixaban [Eliquis] 2.5 mg PO BID #60 tablet 11/24/17 Metoprolol Tartrate [Lopressor -] 12.5 mg PO DAILY 30 Days tablet 11/24/17 Ondansetron [Zofran -] 4 mg PO Q8H PRN #30 tablet 11/24/17 Sevelamer Carbonate [Renvela -] 1,600 mg PO TIDCM #90 tab 11/24/17 Sodium Thiosulfate 25 gm IVPB MoWeFr@0800 #100 ml 11/24/17 oxyCODONE HCL [Roxicodone -] 5 mg PO Q6H PRN #30 tablet MDD 4 11/24/17 Diphenhydramine HCl [Benadryl Capsule -] 25 mg PO DAILY PRN 12/05/17 Insulin Aspart [Novolog Flexpen] 0 unit SQ TID PRN 12/05/17 Nut.tx.imp.renal Fxn,Lac-Reduc [Nepro Carb Steady] 8 oz PO BID 12/05/17 Aspirin [ASA -] 81 mg PO DAILY #30 tab.chew 12/08/17 Levothyroxine [Synthroid -] 125 mcg PO DAILY@0700 #90 tablet 12/08/17 Nystatin Oral Suspension - [Nystatin Oral Susp 178055 Units/5 ML -] 500,000 units PO Q6HPO #10 cup 12/08/17 Nystatin Powder [Nystop Powder -] 1 applic TP BID #30 applic 12/08/17 Pantoprazole Sodium [Protonix -] 40 mg PO DAILY #60 tablet.ec 12/08/17 Clotrimazole 15 gm TP DAILY 12/22/17 Collagenase Clostridium Hist. [Santyl -] 1 applic TP DAILY 12/22/17 Glimepiride 2 mg PO BID 12/22/17 Sennosides [Senna Laxative] 8.6 mg PO DAILY 12/22/17 Silver Sulfadiazine 1% Top Cr [Silvadene] 1 applic TP ONCE 12/22/17 Physical Exam Vital Signs: Vital Signs Temperature 97.8 F 12/22/17 06:44 Pulse Rate 101 H 12/22/17 06:44 Respiratory Rate 18 12/22/17 06:44 Blood Pressure 135/91 12/22/17 06:44 O2 Sat by Pulse Oximetry (%) 100 12/22/17 06:44 Vital Signs Period Temp Pulse Resp BP Sys/Cordero Pulse Ox Last 24 Hr 97.8 F-98.0 F 82-110 18-20 112-143/68-91 96-100 Constitutional: Yes: No Distress, Calm, Obese Eyes: Yes: Conjunctiva Clear, EOM Intact HENT: Yes: Atraumatic, Normocephalic Neck: Yes: Supple, Trachea Midline Cardiovascular: Yes: Regular Rate and Rhythm, S1, S2. No: Murmur Respiratory: Yes: Regular, CTA Bilaterally Gastrointestinal: Yes: Normal Bowel Sounds, Soft ...Rectal Exam: Yes: Deferred Renal/: No: CVA Tenderness - Left, CVA Tenderness - Right Musculoskeletal: Yes: Other (left index middle and ringer finger amputations, open MCP middle) Extremities: No: Cool, Cyanosis Wound/Incision: Yes: Clean/Dry, Dressing Dry and Intact, Unapproximated. No: Draining, Reddened, Bleeding Neurological: Yes: Alert, Oriented Psychiatric: Yes: Alert, Oriented, Other (depressed mood) Labs: CBC, BMP 12/21/17 23:30 12/21/17 23:30 Imaging - Results Ultrasound: Report Reviewed (LLE duplex negative), Image Reviewed Other: Pending, Image Reviewed Problem List - Problems (1) Gangrene of hand Assessment/Plan: 72yo female MMP presents with exquite pain and ischemic changes LLE while on eloquis, known h/o PVD and amputation s/p left hand multi digit amputation with expanding ischemic changes both hands. Medical optimization Cardiac and Renal evaluation empiric IV antibiotics Vascular surgery evaluation of LLE bilateral upper extremity Arterial duplex with segmental pulse volume recording all extremities CT Angiogram for upper extremities may be useful prior to any future upper extremity evaluation Will follow Code(s): I96 - GANGRENE, NOT ELSEWHERE CLASSIFIED (2) ESRD on hemodialysis Code(s): N18.6 - END STAGE RENAL DISEASE; Z99.2 - DEPENDENCE ON RENAL DIALYSIS (3) History of ESBL Klebsiella pneumoniae infection Code(s): Z86.19 - PERSONAL HISTORY OF OTHER INFECTIOUS AND PARASITIC DISEASES (4) Left leg cellulitis Code(s): L03.116 - CELLULITIS OF LEFT LOWER LIMB (5) Status post transmetatarsal amputation of left foot Code(s): Z89.432 - ACQUIRED ABSENCE OF LEFT FOOT (6) Unilateral AKA Code(s): Z89.619 - ACQUIRED ABSENCE OF UNSPECIFIED LEG ABOVE KNEE (7) Cellulitis and abscess of hand Code(s): L03.119 - CELLULITIS OF UNSPECIFIED PART OF LIMB; L02.519 - CUTANEOUS ABSCESS OF UNSPECIFIED HAND (8) Cellulitis of left hand Code(s): L03.114 - CELLULITIS OF LEFT UPPER LIMB (9) Suppurative tenosynovitis of flexor tendon of left hand Code(s): M65.142 - OTHER INFECTIVE (TENO)SYNOVITIS, LEFT HAND
[2017-12-22] MEDS: AMINO ACIDS/PROTEIN HYDROLYS 30 ML LIQUID.PKT PO SCH ×2 (09:25→17:56)
[2017-12-22] MEDS: ASPIRIN 81 MG CHEWABLE TABLETS PO SCH (09:25)
[2017-12-22 09:44] LABS: HEMATOCRIT 29.2 % (32.4-45.2); HEMOGLOBIN 9.4 GM/dL (10.7-15.3); MCH 32.1 pg (25.7-33.7); MCHC 32.1 g/dl (32.0-36.0); MEAN CELL VOLUME 99.9 fl (80-96); MEAN PLT VOLUME 8.6 fl (7.5-11.1); PLATELET COUNT 318 K/MM3 (134-434); RBC 2.92 M/mm3 (3.60-5.2); RDW 22.4 % (11.6-15.6)
[2017-12-22] MEDS ORDERED: APIXABAN 2.5 MG TABLET PO SCH (10:00)
[2017-12-22] MEDS ORDERED: COLLAGENASE CLOSTRIDIUM HIST. 30 GRAMS TUBE TP SCH (10:00)
[2017-12-22] MEDS ORDERED: PATIENT'S OWN MEDICATION (NON-FORMULARY) (Nut.Tx.Imp.Renal Fxn,Lac-Reduc [Nepro Carb Stead PO SCH (10:00)
[2017-12-22] MEDS: METOPROLOL TARTRATE 25 MG TABLET (FP) PO SCH (10:04)
[2017-12-22] MEDS: NYSTATIN 100,000 UNIT/GM TOPICAL CREAM 15 GM TUBE TP SCH (10:04)
[2017-12-22] MEDS: PANTOPRAZOLE 40 MG TABLET (FP) PO SCH (10:05)
[2017-12-22] MEDS: SENNOSIDES 8.6MG TABLET (FP) PO SCH (10:05)
[2017-12-22] MEDS: SILVER SULFADIAZINE 1% TOP CREAM 50 GM JAR TP SCH (10:06)
[2017-12-22 10:17] LABS: ANION GAP 12 (8-16); BLOOD UREA NITROGEN 25 mg/dL (7-18); CALCIUM 7.1 mg/dL (8.5-10.1); CHLORIDE 105 mmol/L (98-107); CO2 22 mmol/L (21-32); CREATININE 2.9 mg/dL (0.55-1.02); GLUCOSE,RANDOM 81 mg/dL (74-106); MAGNESIUM 1.9 mg/dL (1.8-2.4); PHOSPHOROUS 2.7 mg/dL (2.5-4.9); POTASSIUM 3.5 mmol/L (3.5-5.1); SODIUM 139 mmol/L (136-145)
--- NOTE | 2017-12-22 11:38 | EKG ---
Test Reason : Blood Pressure : / mmHG Vent. Rate : 102 BPM Atrial Rate : 091 BPM P-R Int : 000 ms QRS Dur : 088 ms QT Int : 368 ms P-R-T Axes : 000 040 -39 degrees QTc Int : 479 ms ATRIAL FIBRILLATION WITH RAPID VENTRICULAR RESPONSE CANNOT RULE OUT ANTERIOR INFARCT (CITED ON OR BEFORE 02-SEP-2017) ABNORMAL ECG WHEN COMPARED WITH ECG OF 04-DEC-2017 20:46, NO SIGNIFICANT CHANGE WAS FOUND Confirmed by SHIN BERNARDO MD ([id number]) on 12/22/2017 11:38:37 AM Referred By: Confirmed By:SHIN BERNARDO MD
[2017-12-22 12:04] LABS: ANISOCYTOSIS 2+; MACROCYTOSIS 1+; PLATELET ESTIMATE NORMAL; TEAR DROP CELLS 1+
[2017-12-22] MEDS ORDERED: CEFEPIME HCL/D5W 1 GM/50 ML PREMIX BAG IVPB SCH (13:00)
--- NOTE | 2017-12-22 13:46 | CONSULT ---
Consult - text type - Consultation Consultation Note: Renal Consult for ESRD on HD This is a 72 year old woman with PMhx of ESRD on HD, Hypertension, CAD, PVD s/p amputations, Afib on Eliquis, Calciphylaxis who presented with leg pain and admitted for Sepsis. Pt reports that there was left leg pain extending from her foot to her thigh that started 2 days ago. pain was 10/10. Pt has been on Tigacycline BID and Dapto with dialysis up until yesterday. No fevers. Had dialysis yesterday. No N/V/D. No cough, SOB, chest congestion. No NELSON, confusion or lethargy. Pain is improved in the ED. PMhx: as above Allergies: NKDA Family Hx: NC Social Hx: No T/A/D ROS: as per HPI Home Medications Medication Instructions Recorded Acetaminophen [Tylenol .Regular 650 mg PO Q4H PRN #30 tablet 11/24/17 Strength -] Amino Acids/Protein Hydrolys 30 ml PO BID@0800,1730 #20 packet 11/24/17 [Prosource No Carb Liquid Pkt] Apixaban [Eliquis] 2.5 mg PO BID #60 tablet 11/24/17 Metoprolol Tartrate [Lopressor -] 12.5 mg PO DAILY 30 Days tablet 11/24/17 Ondansetron [Zofran -] 4 mg PO Q8H PRN #30 tablet 11/24/17 Sevelamer Carbonate [Renvela -] 1,600 mg PO TIDCM #90 tab 11/24/17 Sodium Thiosulfate 25 gm IVPB MoWeFr@0800 #100 ml 11/24/17 oxyCODONE HCL [Roxicodone -] 5 mg PO Q6H PRN #30 tablet MDD 4 11/24/17 Diphenhydramine HCl [Benadryl 25 mg PO DAILY PRN 12/05/17 Capsule -] Insulin Aspart [Novolog Flexpen] 0 unit SQ TID PRN 12/05/17 Nut.tx.imp.renal Fxn,Lac-Reduc 8 oz PO BID 12/05/17 [Nepro Carb Steady] Aspirin [ASA -] 81 mg PO DAILY #30 tab.chew 12/08/17 Levothyroxine [Synthroid -] 125 mcg PO DAILY@0700 #90 tablet 12/08/17 Nystatin Oral Suspension - 500,000 units PO Q6HPO #10 cup 12/08/17 [Nystatin Oral Susp 933476 Units/5 ML -] Nystatin Powder [Nystop Powder -] 1 applic TP BID #30 applic 12/08/17 Pantoprazole Sodium [Protonix -] 40 mg PO DAILY #60 tablet.ec 12/08/17 Clotrimazole 15 gm TP DAILY 12/22/17 Collagenase Clostridium Hist. 1 applic TP DAILY 12/22/17 [Santyl -] Glimepiride 2 mg PO BID 12/22/17 Sennosides [Senna Laxative] 8.6 mg PO DAILY 12/22/17 Silver Sulfadiazine 1% Top Cr 1 applic TP ONCE 12/22/17 [Silvadene] Vital Signs Temperature 97.8 F 12/22/17 06:44 Pulse Rate 82 12/22/17 09:42 Respiratory Rate 20 12/22/17 09:42 Blood Pressure 143/77 12/22/17 09:42 O2 Sat by Pulse Oximetry (%) 98 12/22/17 09:42 Intake & Output 12/19/17 12/20/17 12/21/17 12/22/17 23:59 23:59 23:59 23:59 Weight 72.575 kg NAD, awake and alert No JVD, Neck supple RRR, No M/R CTA soft, obese, + tender lesion on left side of abd, similiar in apperance to the prior admisson R AKA, left leg + tenderness on her thigh and knee. blister on left bonilla. Catheter exit site is clean CBC, BMP 12/22/17 09:25 12/22/17 09:25 Laboratory Tests 12/05/17 12/22/17 06:40 09:25 Calcium 7.2 L 7.1 L Phosphorus 3.5 2.7 Magnesium 2.6 H 1.9 Current Medications Amino Acids (Prosource No Carb Liquid Pkt) 30 ml PO BID@0800,1730 [facility] Last Admin: 12/22/17 09:25 Dose: 30 ml Aspirin (Asa -) 81 mg PO DAILY [facility] Last Admin: 12/22/17 09:25 Dose: 81 mg Cefepime HCl (Maxipime 1 Gm Premix Ivpb) 1 gm IVPB Q8H-IV [facility] PRN Reason: Protocol Collagenase (Santyl -) 1 applic TP DAILY [facility] Last Admin: 12/22/17 10:05 Dose: 1 applic Heparin Sodium (Porcine) (Heparin -) 1,000 unit IVPUSH PRN PRN PRN Reason: Heparin Heparin Sodium (Porcine) (Heparin -) 5,000 unit IVPUSH PRN PRN PRN Reason: Heparin Last Admin: 12/22/17 03:00 Dose: 5,000 unit HEPARIN SOD,PORK IN 0.45% NACL (Heparin-1/2ns 25,000 Units/500) 25,000 units in 500 mls @ 20 mls/hr IVPB TITR YOAN; 1,000 UNIT/HR PRN Reason: Protocol Last Admin: 12/22/17 03:00 Dose: 1,000 unit/hr, 20 mls/hr Insulin Aspart (Novolog Vial Sliding Scale -) 1 vial SQ ACHS YOAN PRN Reason: Protocol Last Admin: 12/22/17 11:55 Dose: Not Given Levothyroxine Sodium (Synthroid -) 125 mcg PO DAILY@0700 [facility] Last Admin: 12/22/17 06:31 Dose: 125 mcg Metoprolol Tartrate (Lopressor -) 12.5 mg PO DAILY [facility] Last Admin: 12/22/17 10:04 Dose: 12.5 mg Nystatin (Mycostatin Cream -) 1 applic TP DAILY [facility] Last Admin: 12/22/17 10:04 Dose: 1 applic Oxycodone HCl (Roxicodone -) 5 mg PO Q6H PRN PRN Reason: PAIN LEVEL 6-10 Pantoprazole Sodium (Protonix -) 40 mg PO DAILY [facility] Last Admin: 12/22/17 10:05 Dose: 40 mg Senna (Senna -) 1 tab PO DAILY [facility] Last Admin: 12/22/17 10:05 Dose: 1 tab Silver Sulfadiazine (Silvadene -) 1 applic TP DAILY [facility] Last Admin: 12/22/17 10:06 Dose: 1 applic Sodium Thiosulfate (Sodium Thiosulfate) 25 gm IVPB MoWeFr@0800 [facility] 72 year old woman with PMhx of ESRD on HD, Hypertension, CAD, PVD s/p amputations, Afib on Eliquis, Calciphylaxis who presented with LE wound and admitted for Sepsis. #ESRD on HD #Sepsis with LE wound #Calciphaylaxis #CKD Related Anemia #Hypothyroidism Blood cutlures collected in the ED s/p emperic Cefepime and Gent s/p Daptomycin in dialysis yesterday f/u offical reading of LE arterial doppler Vascular consult placed ? need for CT angiogram vs. traditional angiogram for dialysis tomorrow will continue Sodium thiosulfate with HD continue REnvela TID with meals will avoid any Ca supplementation given calicphylaxis
[2017-12-22 13:52] LABS: INR 2.23 (0.82-1.09); PROTHROMBIN TIME (PATIENT) 25.2 SEC (9.98-11.88)
[2017-12-22] MEDS ORDERED: SODIUM CHLORIDE 250 ML IV PRN (14:16)
--- NOTE | 2017-12-22 15:54 | PN ---
Progress Note (short form) - Note Progress Note: ID consult dictated just completed 6 weeks of iv antibiotics for hand osteomyelitis with daptomycin/ tygacil last dose daptomycin after HD yesterday developed left leg pain 2 days ago- has worsened and presented with pain to ED last night no fevers but wbc of 20k cultures sent, cefepime and gent in ED arterial dopplers pending venous dopplers negative now on heparin drip continue cefepime for now pending cultures daptomycin "on board" f/u with vascular Problem List - Problems (1) Leucocytosis Code(s): D72.829 - ELEVATED WHITE BLOOD CELL COUNT, UNSPECIFIED (2) Leg pain, left Code(s): M79.605 - PAIN IN LEFT LEG (3) History of ESBL Klebsiella pneumoniae infection Code(s): Z86.19 - PERSONAL HISTORY OF OTHER INFECTIOUS AND PARASITIC DISEASES (4) ESRD on hemodialysis Code(s): N18.6 - END STAGE RENAL DISEASE; Z99.2 - DEPENDENCE ON RENAL DIALYSIS
[2017-12-22 17:14] VITALS: BMI 32.5
--- NOTE | 2017-12-22 17:59 | CONSULT ---
Consult - History of Present Illness History of Present Illness: 72 year old woman with ESRD on HD and severe systemic arterial disease of small vessels in hands and feet. 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 She is unable to have AV access in the arm due to progressive ischemia of her digits. She has a chronic Permacath for access. She was recently hospitalized for abdominal pain. She is now readmitted from SNF with complaint of severe pain in lateral left thigh. She states there was redness and swelling. Since her last admission she has developed small wounds on the left stump and bonilla. - History Source History Provided By: Patient, Medical Record - Past Medical History GRANULATOR: Yes: 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 No: Hematuria Infectious Disease: Yes: MRSA Musculoskeletal: Yes: Other (R rotator cuff repair) Endocrine: Yes: Diabetes Mellitus, Hypothyroidism Additional Medical History: Steal syndrome , PVD- s//p surgery. End stage renal disease (hemodialysis 3x per week). Congestive heart failure. Diabetes. Hypertension. Hyperlipidemia. Peripheral vascular occlusive disease. Hypothyroidism. Anemia. Gastroesophageal reflux disease - Past Surgical History Past Surgical History: Yes: Amputation (Rt AKA, left TMA), Hysterectomy ( thyroid surgery), Stent - Alcohol/Substance Use Hx Alcohol Use: No History of Substance Use: reports: None - Smoking History Smoking history: Never smoked Have you smoked in the past 12 months: No Aproximately how many cigarettes per day: 0 - Social History Usual Living Arrangement: Skilled Nursing ADL: Support Services History of Recent Travel: No Home Medications - Allergies Allergies/Adverse Reactions: Allergies Allergy/AdvReac Type Severity Reaction Status Date / Time adhesive tape Allergy Severe SKIN TEAR Verified 12/21/17 22:39 amoxicillin trihydrate AdvReac Severe DIARRHEA Verified 12/21/17 22:39 [From Augmentin] potassium clavulanate AdvReac Severe DIARRHEA Verified 12/21/17 22:39 [From Augmentin] - Home Medications Home Medications: Ambulatory Orders Acetaminophen [Tylenol .Regular Strength -] 650 mg PO Q4H PRN #30 tablet Amino Acids/Protein Hydrolys [Prosource No Carb Liquid Pkt] 30 ml PO BID@0800, 1730 #20 packet 11/24/17 Apixaban [Eliquis] 2.5 mg PO BID #60 tablet 11/24/17 Metoprolol Tartrate [Lopressor -] 12.5 mg PO DAILY 30 Days tablet 11/24/17 Ondansetron [Zofran -] 4 mg PO Q8H PRN #30 tablet 11/24/17 Sevelamer Carbonate [Renvela -] 1,600 mg PO TIDCM #90 tab 11/24/17 Sodium Thiosulfate 25 gm IVPB MoWeFr@0800 #100 ml 11/24/17 oxyCODONE HCL [Roxicodone -] 5 mg PO Q6H PRN #30 tablet MDD 4 11/24/17 Diphenhydramine HCl [Benadryl Capsule -] 25 mg PO DAILY PRN 12/05/17 Insulin Aspart [Novolog Flexpen] 0 unit SQ TID PRN 12/05/17 Nut.tx.imp.renal Fxn,Lac-Reduc [Nepro Carb Steady] 8 oz PO BID 12/05/17 Aspirin [ASA -] 81 mg PO DAILY #30 tab.chew 12/08/17 Levothyroxine [Synthroid -] 125 mcg PO DAILY@0700 #90 tablet 12/08/17 Nystatin Oral Suspension - [Nystatin Oral Susp 458165 Units/5 ML -] 500,000 units PO Q6HPO #10 cup 12/08/17 Nystatin Powder [Nystop Powder -] 1 applic TP BID #30 applic 12/08/17 Pantoprazole Sodium [Protonix -] 40 mg PO DAILY #60 tablet.ec 12/08/17 Clotrimazole 15 gm TP DAILY 12/22/17 Collagenase Clostridium Hist. [Santyl -] 1 applic TP DAILY 12/22/17 Glimepiride 2 mg PO BID 12/22/17 Sennosides [Senna Laxative] 8.6 mg PO DAILY 12/22/17 Silver Sulfadiazine 1% Top Cr [Silvadene] 1 applic TP ONCE 12/22/17 Physical Exam Vital Signs: Vital Signs Temperature 98.2 F 12/22/17 17:00 Pulse Rate 95 H 12/22/17 17:00 Respiratory Rate 20 12/22/17 17:00 Blood Pressure 132/48 12/22/17 17:00 O2 Sat by Pulse Oximetry (%) 98 12/22/17 09:42 Constitutional: Yes: No Distress Gastrointestinal: Yes: Soft Extremities: Yes: Amputation (Right AKA well healed), Other (Left thigh warm, no erythema or swelling. No skin changes. Calf has several superficial eschars and there is a dry necrotic eschar on the left TMA stump without erythema. The old wound of the plantar foot remains healed.) Labs: CBC, BMP 12/22/17 09:25 12/22/17 09:25 Imaging - Results Ultrasound: Image Reviewed (Arterial DUplex shows pulsatile flow in left femoral , popliteal and tibial artery. Study is limited and incomplete without imaging of anterior tibial or peroneal vessels. Venous Duplex negative for DVT) Problem List - Problems (1) Leg pain, left Assessment/Plan: Current level of pain is out of proportion to physical findings. There are no visible signs of underlying infection and no sign of skin cellulitis or necrosis. WBC is elevated without any fever. Evaluation with CT with and without contrast is recommended to look for an occult infection or fluid collection. If this is negative additional imaging to look for a central cause of pain, such as nerve compression, may be helpful. I see no need for her to continue on IV Heparin in the absence of findings for DVT or embolism. Code(s): M79.605 - PAIN IN LEFT LEG
[2017-12-22] MEDS: SEVELAMER CARBONATE 800 MG TAB (FP) PO SCH (18:09)
[2017-12-22] MEDS: oxyCODONE HCL 5 MG TABLET PO PRN (22:00)
--- NOTE | 2017-12-22 22:41 | CONS ---
DATE OF CONSULTATION: DATE OF DICTATION: 12/22/2017 INFECTIOUS DISEASE CONSULTATION REQUESTING PHYSICIAN: Alina Pascual M.D. and Jessenia Galarza M.D. HISTORY OF PRESENT ILLNESS: This is a 72-year-old woman who I know well from prior admission earlier this year and from prior admissions. 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 She was treated with Tygacil and daptomycin after undergoing debridement and amputation of the 3rd finger and partial amputations to the 2nd and 4th finger. She was recently in the hospital in November when she presented for leukocytosis, nausea, and vomiting. She had not been on her Protonix or Synthroid at the [facility]. These were resumed. She felt better. Discussion was made to stop her antibiotics early. She had completed at that point 32 days, she elected to finish her antibiotic treatment. She was discharged to continue her Tygacil and daptomycin. Her last doses of antibiotics were administered after dialysis last night, and she was brought to the emergency room with complaints of left leg pain. She has a 2-day history of pain extending from her thigh to her foot on the left side. She had had a blister on her foot that had popped earlier. There were no fevers. No nausea or vomiting. No cough or chest pain. She is not confused. She is alert. In the emergency room, she was felt to have some mild erythema. White count was 20,000. She was given cefepime and gentamicin. She had been given daptomycin after dialysis. This morning she was also started on heparin as arterial Dopplers are pending, and vascular surgery has been called. Venous Dopplers are negative. I am asked to see her for further evaluation. ALLERGIES: She has no known drug allergies. MEDICATION: At home include acetaminophen, protein, protein, Eliquis, metoprolol, Zofran, Renvela, with dialysis, oxycodone, Benadryl, insulin, aspirin, Synthroid, nystatin powder, Protonix, glimepiride, senna. PAST MEDICAL HISTORY: Notable for end-stage renal disease on dialysis. She has a history of atrial fibrillation, coronary artery disease, CHF, hypertension, hyperlipidemia. She has [address] COPD. End-stage renal disease on dialysis. History of MRSA in the past. Diabetes. Hypothyroidism. She has steal syndrome, peripheral vascular disease, end-stage renal disease. She has a history of GERD, peripheral vascular occlusive disease, hypothyroidism, and anemia. She has had amputations of the right AKA and the left TMA. She has had a hysterectomy as well as surgery now to her left hand multiple times including partial amputations on 2 fingers and complete amputation of the 3rd finger. REVIEW OF SYSTEMS: As per HPI. She has been eating well. She has no fevers or chills. She reports her pain is diminished. Of note she in the past also had an ulcer on her left breast that was nonhealing and took final excision of the whole area. 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 PHYSICAL EXAMINATION: Vital signs: Temperature 98.2. She has had no fevers since admission. Pulse 95, blood pressure 132/48, respiratory rate 20, she weighs 190 pounds. HEENT: Normocephalic. Eyes are anicteric. Neck: Supple. She has a right-sided line on her chest. She has a left-sided PermCath. She has a pacemaker. Heart: Regular rate and rhythm. Abdomen: Soft. 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 Her AKA sites were well healed. Her right foot at the TMA stump, she has an area of necrosis and along the lateral aspect of her left foot, she has very very hypersensitive warm area extending on the lateral aspect of her foot. She has an open blister in the pretibial area with minimal erythema. Her hands, her left hand, 3rd is amputated to the base, it is clean. There is no purulence, looks good. The 2nd and 4th finger are partial amputations with necrotic edges. On her right hand her index finger is starting to have a necrotic tip, and the little finger on the left hand as well has an area of necrosis. LABORATORY: Notable for a white count of 21, hemoglobin 9.4, platelets are 318. Blood cultures are pending. Wound cultures are pending at the leg. She has no fevers, but has this elevated white count. Cultures are sent. Cefepime and gentamicin have been given. Would continue cefepime for now pending cultures. Daptomycin on board. Follow up with vascular as pending at this time as well as arterial Doppler results. Further recommendations to follow. Shannon NELSON/[id number]
[2017-12-22] MEDS ORDERED: ACETAMINOPHEN 325 MG TABLET (FP) PO ONE (23:34)
[2017-12-22] MEDS ORDERED: diphenhydrAMINE HCL 50 MG CAPSULE PO ONE (23:34)
[2017-12-22] MEDS ORDERED: diphenhydrAMINE HCL 25 MG CAPSULE (FP) PO ONE (23:45)
[2017-12-23] MEDS: HEPARIN SOD,PORK IN 0.45% NACL 25,000 UNITS/500 ML INFUS.BAG IVPB SCH (04:33)
[2017-12-23] MEDS ORDERED: ACETAMINOPHEN 325 MG TABLET (FP) ONE (04:35)
[2017-12-23] MEDS: INSULIN SLIDING SCALE (NOVOLOG) 1 VIAL SQ SCH ×4 (06:21→21:48)
[2017-12-23] MEDS: LEVOTHYROXINE NA 125 MCG TABLET (FP) PO SCH (06:25)
[2017-12-23] MEDS ORDERED: INSULIN (NOVOLOG) ASPART 100 UNITS/ML 10ML VIAL ONE (07:33)
[2017-12-23 08:35] LABS: HEMATOCRIT 30.6 % (32.4-45.2); HEMOGLOBIN 9.7 GM/dL (10.7-15.3); MCH 31.6 pg (25.7-33.7); MCHC 31.6 g/dl (32.0-36.0); MEAN PLT VOLUME 8.8 fl (7.5-11.1); PLATELET COUNT 345 K/MM3 (134-434); RBC 3.07 M/mm3 (3.60-5.2); RDW 22.2 % (11.6-15.6); WHITE BLOOD COUNT 18.4 K/mm3 (4.0-10.0)
[2017-12-23 08:37] LABS: ADD RBC MORPHOLOGY YES
[2017-12-23 08:40] LABS: CHLORIDE 102 mmol/L (98-107); POTASSIUM 4.7 mmol/L (3.5-5.1); SODIUM 136 mmol/L (136-145)
[2017-12-23] MEDS: AMINO ACIDS/PROTEIN HYDROLYS 30 ML LIQUID.PKT PO SCH ×2 (08:42→18:03)
[2017-12-23] MEDS: SEVELAMER CARBONATE 800 MG TAB (FP) PO SCH ×3 (08:42→17:08)
[2017-12-23] MEDS: oxyCODONE HCL 5 MG TABLET PO PRN ×2 (08:43→16:46)
[2017-12-23 08:47] LABS: ALBUMIN 1.3 g/dl (3.4-5.0); ALK PHOS 267 U/L (45-117); ANION GAP 12 (8-16); BILIRUBIN,TOTAL 0.3 mg/dL (0.2-1.0); BLOOD UREA NITROGEN 35 mg/dL (7-18); CALCIUM 7.3 mg/dL (8.5-10.1); CO2 22 mmol/L (21-32); CREATININE 3.5 mg/dL (0.55-1.02); GLUCOSE,RANDOM 65 mg/dL (74-106); SGOT/AST 7 U/L (15-37); SGPT/ALT 14 U/L (12-78); TOT PROT 4.9 g/dl (6.4-8.2)
--- NOTE | 2017-12-23 09:37 | PN ---
Progress Note, Physician Chief Complaint: left hand dry gangrene History of Present Illness: 72 yo RHD female from [facility] with PMH HTN, DM, HLD, PAD, afib (on Eliquis 2.5mg PO BID), pacemaker/defibrillator, ESRD (M, W, F dialysis; L chest tunnel cath. Anuric), R ATK amputation, L foot amputation, L hand 2nd-4th digit amputation (03/12), who presents to the ED c/o LLE pain over the past two days. She has completed a 6-8 week course of these abx through a R PICC line for osteomyelitis of her L hand 2nd-4th digits. No acute events overnight, She is depressed and tearful regarding her condition. - Current Medication List Current Medications: Active Medications Amino Acids (Prosource No Carb Liquid Pkt) 30 ml PO BID@0800,1730 [facility] Last Admin: 12/23/17 08:42 Dose: 30 ml Aspirin (Asa -) 81 mg PO DAILY [facility] Last Admin: 12/22/17 09:25 Dose: 81 mg Cefepime HCl (Maxipime 1 Gm Premix Ivpb) 1 gm IVPB DAILY [facility] Epoetin Sky (Procrit -) 10,000 unit IVPUSH ONCE ONE Stop: 12/23/17 06:01 Heparin Sodium (Porcine) (Heparin -) 1,000 unit IVPUSH PRN PRN PRN Reason: Heparin Heparin Sodium (Porcine) (Heparin -) 5,000 unit IVPUSH PRN PRN PRN Reason: Heparin Last Admin: 12/22/17 03:00 Dose: 5,000 unit HEPARIN SOD,PORK IN 0.45% NACL (Heparin-1/2ns 25,000 Units/500) 25,000 units in 500 mls @ 20 mls/hr IVPB TITR YOAN; 1,000 UNIT/HR PRN Reason: Protocol Last Admin: 12/23/17 04:33 Dose: Not Given Sodium Chloride (Normal Saline -) 250 mls @ 3,000 mls/hr IV PRN PRN PRN Reason: Hypotension during Dialysis Stop: 12/23/17 14:16 Insulin Aspart (Novolog Vial Sliding Scale -) 1 vial SQ ACHS YOAN PRN Reason: Protocol Last Admin: 12/23/17 06:21 Dose: Not Given Levothyroxine Sodium (Synthroid -) 125 mcg PO DAILY@0700 [facility] Last Admin: 12/23/17 06:25 Dose: 125 mcg Metoprolol Tartrate (Lopressor -) 12.5 mg PO DAILY [facility] Last Admin: 12/22/17 10:04 Dose: 12.5 mg Nystatin (Mycostatin Cream -) 1 applic TP DAILY [facility] Last Admin: 12/22/17 10:04 Dose: 1 applic Oxycodone HCl (Roxicodone -) 5 mg PO Q6H PRN PRN Reason: PAIN LEVEL 6-10 Last Admin: 12/23/17 08:43 Dose: 5 mg Pantoprazole Sodium (Protonix -) 40 mg PO DAILY [facility] Last Admin: 12/22/17 10:05 Dose: 40 mg Senna (Senna -) 1 tab PO DAILY [facility] Last Admin: 12/22/17 10:05 Dose: 1 tab Sevelamer Carbonate (Renvela -) 1,600 mg PO TIDCM [facility] Last Admin: 12/23/17 08:42 Dose: 1,600 mg Silver Sulfadiazine (Silvadene -) 1 applic TP DAILY [facility] Last Admin: 12/22/17 10:06 Dose: 1 applic Sodium Thiosulfate (Sodium Thiosulfate) 25 gm IVPB MoWeFr@0800 [facility] - Objective Vital Signs: Vital Signs Temperature 98.3 F 12/23/17 05:00 Pulse Rate 109 H 12/23/17 05:00 Respiratory Rate 20 12/23/17 05:00 Blood Pressure 152/79 12/23/17 05:00 O2 Sat by Pulse Oximetry (%) 98 12/22/17 21:00 Vital Signs Period Temp Pulse Resp BP Sys/Cordero Pulse Ox Last 24 Hr 98.2 F-98.3 F 95-109 20-20 132-152/48-89 98-98 Intake & Output 12/22/17 12/23/17 12/23/17 23:59 07:59 15:59 Intake Total 216 Balance 216 Weight 190 lb 189 lb 6.4 oz Intake: IV 216 HEPARIN-1/2NS 25,000 216 UNITS/500 25,000 units In 500 ml @ 1,000 UNIT/HR 20 mls/hr IVPB TITR [facility] Rx#:[id number] Other: Voiding Method Incontinent Bowel Movement No Height 5 ft 4 in Body Mass Index (BMI) 32.5 Weight Measurement Method [facility] in [facility] Constitutional: Yes: Well Nourished, No Distress, Calm, Obese Eyes: Yes: Conjunctiva Clear, EOM Intact HENT: Yes: Atraumatic, Normocephalic Neck: Yes: Supple, Trachea Midline Cardiovascular: Yes: Regular Rate and Rhythm, S1, S2. No: Murmur Respiratory: Yes: Regular, CTA Bilaterally Gastrointestinal: Yes: Normal Bowel Sounds, Soft, Abdomen, Obese, Other (left flank eccymosis and edema) ...Rectal Exam: Yes: Deferred Genitourinary: No: CVA Tenderness - Left, CVA Tenderness - Right Musculoskeletal: Yes: Other (severe left leg tenderness, thigh >> calf and foot) Extremities: Yes: Cyanosis (left thigh) Edema: LLE: 1+ Peripheral Pulses WNL: No Peripheral Pulses: Left Radial: 2+, Left Doralis Pedis: 0, Left Femoral: 1+ Integumentary: Yes: Bruising (left flank and bilateral arms). No: Jaundice Wound/Incision: Yes: Clean/Dry, Well Approximated (ischemic chnages of left index and ring finger stumps), Unapproximated (left middle finger MCP joint). No: Reddened, Bleeding, Excoriated Neurological: Yes: Alert, Oriented Psychiatric: Yes: Alert, Oriented, Other (depressed and tearful regarding prognosis) Labs: CBC, BMP 12/23/17 07:30 12/23/17 06:30 INR, PTT INR 2.23 (0.82-1.09) H 12/22/17 12:57 Problem List - Problems (1) Gangrene of hand Assessment/Plan: 72yo female MMP presents with exquite pain and ischemic changes LLE while on eloquis, known h/o PVD and amputation s/p left hand multi digit amputation with expanding ischemic changes both hands. Medical optimization Cardiac and Renal evaluation empiric IV antibiotics Vascular surgery evaluation of LLE CT scan LLE 12/23 prior to dialysis will follow CT Angiogram for upper extremities ordered 12/26 prior to dialysis Dry dressing to left hand QOD as soiled Will follow Code(s): I96 - GANGRENE, NOT ELSEWHERE CLASSIFIED (2) ESRD on hemodialysis Code(s): N18.6 - END STAGE RENAL DISEASE; Z99.2 - DEPENDENCE ON RENAL DIALYSIS (3) History of ESBL Klebsiella pneumoniae infection Code(s): Z86.19 - PERSONAL HISTORY OF OTHER INFECTIOUS AND PARASITIC DISEASES (4) Left leg cellulitis Code(s): L03.116 - CELLULITIS OF LEFT LOWER LIMB (5) Status post transmetatarsal amputation of left foot Code(s): Z89.432 - ACQUIRED ABSENCE OF LEFT FOOT (6) Unilateral AKA Code(s): Z89.619 - ACQUIRED ABSENCE OF UNSPECIFIED LEG ABOVE KNEE (7) Cellulitis and abscess of hand Code(s): L03.119 - CELLULITIS OF UNSPECIFIED PART OF LIMB; L02.519 - CUTANEOUS ABSCESS OF UNSPECIFIED HAND (8) Cellulitis of left hand Code(s): L03.114 - CELLULITIS OF LEFT UPPER LIMB (9) Suppurative tenosynovitis of flexor tendon of left hand Code(s): M65.142 - OTHER INFECTIVE (TENO)SYNOVITIS, LEFT HAND
[2017-12-23 09:43] LABS: PHOSPHOROUS 3.7 mg/dL (2.5-4.9)
[2017-12-23] MEDS ORDERED: CEFEPIME HCL/D5W 1 GM/50 ML PREMIX BAG IVPB SCH (10:00)
--- NOTE | 2017-12-23 10:27 | CON.CARD ---
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 Patient admitted from SNF with severe pain, swelling and also has difficulty moving the left lower extremity. Symptoms started 3-4 days ago. No history of chills, sweating or fever reported. no history of chest pain or discomfort. No shortness of breath. Past Surgical History: See present history. S/p Thyroid surgery. 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 No history of smoking. Alcohol: socially Family History: Father- colon CA, mother- passed from cardiac issues at age 96, brother- bladder CA. Active Medications 3 Generic Name Dose Route Start Last Admin Trade Name Freq PRN Reason Stop Dose Admin Amino Acids 30 ml 12/22/17 08:00 12/23/17 08:42 Prosource No Carb Liquid Pkt PO 30 ml BID@0800,1730 YOAN Administration Aspirin 81 mg 12/22/17 10:00 12/22/17 09:25 Asa - PO 81 mg DAILY YOAN Administration Cefepime HCl 1 gm 12/23/17 10:00 Maxipime 1 Gm Premix Ivpb IVPB DAILY YOAN Epoetin Sky 10,000 unit 12/23/17 06:00 Procrit - IVPUSH 12/23/17 06:01 ONCE ONE Heparin Sodium (Porcine) 1,000 unit 12/22/17 02:34 Heparin - IVPUSH PRN PRN Heparin Heparin Sodium (Porcine) 5,000 unit 12/22/17 02:34 12/22/17 03:00 Heparin - IVPUSH 5,000 unit PRN PRN Administration Heparin HEPARIN SOD,PORK IN 0.45% NACL 25,000 units in 500 mls @ 20 mls/hr 12/22/17 02 :45 12/23/17 04:33 Heparin-1/2ns 25,000 Units/500 IVPB Not Given TITR [facility] Protocol 1,000 UNIT/HR Sodium Chloride 250 mls @ 3,000 mls/hr 12/22/17 14:16 Normal Saline - IV 12/23/17 14:16 PRN PRN Hypotension during Dialysis Insulin Aspart 1 vial 12/22/17 07:00 12/23/17 06:21 Novolog Vial Sliding Scale - SQ Not Given ACHS [facility] Protocol Levothyroxine Sodium 125 mcg 12/22/17 07:00 12/23/17 06:25 Synthroid - PO 125 mcg DAILY@0700 YOAN Administration Metoprolol Tartrate 12.5 mg 12/22/17 10:00 12/22/17 10:04 Lopressor - PO 12.5 mg DAILY YOAN Administration Nystatin 1 applic 12/22/17 10:00 12/22/17 10:04 Mycostatin Cream - TP 1 applic DAILY YOAN Administration Oxycodone HCl 5 mg 12/22/17 02:16 12/23/17 08:43 Roxicodone - PO 5 mg Q6H PRN Administration PAIN LEVEL 6-10 Pantoprazole Sodium 40 mg 12/22/17 10:00 12/22/17 10:05 Protonix - PO 40 mg DAILY YOAN Administration Senna 1 tab 12/22/17 10:00 12/22/17 10:05 Senna - PO 1 tab DAILY YOAN Administration Sevelamer Carbonate 1,600 mg 12/22/17 17:30 12/23/17 08:42 Renvela - PO 1,600 mg TIDCM YOAN Administration Silver Sulfadiazine 1 applic 12/22/17 10:00 12/22/17 10:06 Silvadene - TP 1 applic DAILY [facility]OAN Administration Sodium Thiosulfate 25 gm 12/23/17 08:00 Sodium Thiosulfate IVPB MoWeFr@0800 [facility]OAN - History Source History Provided By: Patient Limitations to Obtaining History: No Limitations - Past Medical History 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 No: Hematuria Infectious Disease: Yes: MRSA Musculoskeletal: Yes: Other (R rotator cuff repair) Endocrine: Yes: Diabetes Mellitus, Hypothyroidism Additional Medical History: Steal syndrome , PVD- s//p surgery. End stage renal disease (hemodialysis 3x per week). Congestive heart failure. Diabetes. Hypertension. Hyperlipidemia. Peripheral vascular occlusive disease. Hypothyroidism. Anemia. Gastroesophageal reflux disease - Past Surgical History Past Surgical History: Yes: Amputation (Rt AKA, left TMA), Hysterectomy ( thyroid surgery), Stent - Alcohol/Substance Use Hx Alcohol Use: No History of Substance Use: reports: None - Smoking History Smoking history: Never smoked Have you smoked in the past 12 months: No Aproximately how many cigarettes per day: 0 - Social History Usual Living Arrangement: Long-Term ADL: Support Services History of Recent Travel: No Home Medications - Allergies Allergies/Adverse Reactions: Allergies Allergy/AdvReac Type Severity Reaction Status Date / Time adhesive tape Allergy Severe SKIN TEAR Verified 12/21/17 22:39 amoxicillin trihydrate AdvReac Severe DIARRHEA Verified 12/21/17 22:39 [From Augmentin] potassium clavulanate AdvReac Severe DIARRHEA Verified 12/21/17 22:39 [From Augmentin] - Home Medications Home Medications: Ambulatory Orders Acetaminophen [Tylenol .Regular Strength -] 650 mg PO Q4H PRN #30 tablet Amino Acids/Protein Hydrolys [Prosource No Carb Liquid Pkt] 30 ml PO BID@0800, 1730 #20 packet 11/24/17 Apixaban [Eliquis] 2.5 mg PO BID #60 tablet 11/24/17 Metoprolol Tartrate [Lopressor -] 12.5 mg PO DAILY 30 Days tablet 11/24/17 Ondansetron [Zofran -] 4 mg PO Q8H PRN #30 tablet 11/24/17 Sevelamer Carbonate [Renvela -] 1,600 mg PO TIDCM #90 tab 11/24/17 Sodium Thiosulfate 25 gm IVPB MoWeFr@0800 #100 ml 11/24/17 oxyCODONE HCL [Roxicodone -] 5 mg PO Q6H PRN #30 tablet MDD 4 11/24/17 Diphenhydramine HCl [Benadryl Capsule -] 25 mg PO DAILY PRN 12/05/17 Insulin Aspart [Novolog Flexpen] 0 unit SQ TID PRN 12/05/17 Nut.tx.imp.renal Fxn,Lac-Reduc [Nepro Carb Steady] 8 oz PO BID 12/05/17 Aspirin [ASA -] 81 mg PO DAILY #30 tab.chew 12/08/17 Levothyroxine [Synthroid -] 125 mcg PO DAILY@0700 #90 tablet 12/08/17 Nystatin Oral Suspension - [Nystatin Oral Susp 382279 Units/5 ML -] 500,000 units PO Q6HPO #10 cup 12/08/17 Nystatin Powder [Nystop Powder -] 1 applic TP BID #30 applic 12/08/17 Pantoprazole Sodium [Protonix -] 40 mg PO DAILY #60 tablet.ec 12/08/17 Clotrimazole 15 gm TP DAILY 12/22/17 Collagenase Clostridium Hist. [Santyl -] 1 applic TP DAILY 12/22/17 Glimepiride 2 mg PO BID 12/22/17 Sennosides [Senna Laxative] 8.6 mg PO DAILY 12/22/17 Silver Sulfadiazine 1% Top Cr [Silvadene] 1 applic TP ONCE 12/22/17 Review of Systems - Review of Systems Constitutional: denies: Chills, Diaphoresis, Fever Cardiovascular: denies: Chest Pain, Shortness of Breath Respiratory: reports: No Symptoms Vital Signs: Vital Signs Temperature 98.3 F 12/23/17 05:00 Pulse Rate Irregular 109 H 12/23/17 05:00 Respiratory Rate 20 12/23/17 05:00 Blood Pressure 152/79 12/23/17 05:00 O2 Sat by Pulse Oximetry (%) 98 12/22/17 21:00 Neck: Supple, no JVD, negative HJR, carotids were equal and upstrokes were normal, no thyromegaly appreciated. Heart: PMI was in the 5th intercostal space, no heaves or thrills, S1 and S2 were normal. Grade I/ systolic murmur at the apex. No gallops were appreciated. Lungs: Clear on auscultation bilaterally. Abdomen: Soft, nontender, no hepatosplenomegaly appreciated, and no palpable masses were felt. Circumscribed left lower abdominal firmness associated with tenderness on palpation. Extremities: Right AKA, Partial amputation of the left foot. Left hand is bandaged. There is gangrenous changes involving the right index finger (base of the nail) swelling of the right thigh associated with severe tenderness on palpation, hyperemia. - Other Data Labs, Other Data: CBC, BMP 12/23/17 07:30 12/23/17 06:30 INR, PTT INR 2.23 (0.82-1.09) H 12/22/17 12:57 Imaging - Results EKG: Image Reviewed (Dated 12/22/17-- Atrial fibrillation with RVR. Low voltage in limb leads, poor RV wave progression. V1 to V4, cannot exclude underlying anterior wall infarction. When compared to 12/04/17 no signficant changes.) Assessment/Plan Impression: 1. Painful swelling of the left thigh with hyperemia, etiology to be determined; a). Secondary to cellulitis. b). Occlusive vascular disease. c). DVT needs to be excluded. 2. CAD, s/p Multivessel PCI/Stenting, NSTEMI, Presently pain free. 3. Permanent Atrial fibrillation. 4. Gangrenous changes involving the right index finger (base of the right nail). 5. Diabetes Mellitus with multi system involvement. 6. ESRD HD. 7. History of Hypertension 8. Advanced AV block s/p PPM. 9. Diffuse atherosclerosis. 10. Peripheral arterial disease. 11. S/p Right AKA 12. S/p partial amputation of the left foot. 13. Amputation of the fingers of the left hand. 14. History of anxiety disorder. 15. Hypothyroidism, on replacement therapy. Recommendations: 1. Continue current cardiac therapy. 2. Vascular and ID evaluation in progress. 3. Consider CTA or MRA of peripheral arterial system.
--- NOTE | 2017-12-23 10:40 | PN ---
Progress Note, Physician History of Present Illness: patient seen and examined. Chart reviewed. Patient going for CT Mood is labile/depressed due to her chronic conditions. - Current Medication List Current Medications: Active Medications Amino Acids (Prosource No Carb Liquid Pkt) 30 ml PO BID@0800,1730 [facility] Last Admin: 12/23/17 08:42 Dose: 30 ml Aspirin (Asa -) 81 mg PO DAILY [facility] Last Admin: 12/22/17 09:25 Dose: 81 mg Cefepime HCl (Maxipime 1 Gm Premix Ivpb) 1 gm IVPB DAILY [facility] Epoetin Sky (Procrit -) 10,000 unit IVPUSH ONCE ONE Stop: 12/23/17 06:01 Heparin Sodium (Porcine) (Heparin -) 1,000 unit IVPUSH PRN PRN PRN Reason: Heparin Heparin Sodium (Porcine) (Heparin -) 5,000 unit IVPUSH PRN PRN PRN Reason: Heparin Last Admin: 12/22/17 03:00 Dose: 5,000 unit HEPARIN SOD,PORK IN 0.45% NACL (Heparin-1/2ns 25,000 Units/500) 25,000 units in 500 mls @ 20 mls/hr IVPB TITR YOAN; 1,000 UNIT/HR PRN Reason: Protocol Last Admin: 12/23/17 04:33 Dose: Not Given Sodium Chloride (Normal Saline -) 250 mls @ 3,000 mls/hr IV PRN PRN PRN Reason: Hypotension during Dialysis Stop: 12/23/17 14:16 Insulin Aspart (Novolog Vial Sliding Scale -) 1 vial SQ ACHS [facility] PRN Reason: Protocol Last Admin: 12/23/17 06:21 Dose: Not Given Levothyroxine Sodium (Synthroid -) 125 mcg PO DAILY@0700 [facility] Last Admin: 12/23/17 06:25 Dose: 125 mcg Metoprolol Tartrate (Lopressor -) 12.5 mg PO DAILY [facility] Last Admin: 12/22/17 10:04 Dose: 12.5 mg Nystatin (Mycostatin Cream -) 1 applic TP DAILY [facility] Last Admin: 12/22/17 10:04 Dose: 1 applic Oxycodone HCl (Roxicodone -) 5 mg PO Q6H PRN PRN Reason: PAIN LEVEL 6-10 Last Admin: 12/23/17 08:43 Dose: 5 mg Pantoprazole Sodium (Protonix -) 40 mg PO DAILY [facility] Last Admin: 12/22/17 10:05 Dose: 40 mg Senna (Senna -) 1 tab PO DAILY [facility] Last Admin: 12/22/17 10:05 Dose: 1 tab Sevelamer Carbonate (Renvela -) 1,600 mg PO TIDCM [facility] Last Admin: 12/23/17 08:42 Dose: 1,600 mg Silver Sulfadiazine (Silvadene -) 1 applic TP DAILY [facility] Last Admin: 12/22/17 10:06 Dose: 1 applic Sodium Thiosulfate (Sodium Thiosulfate) 25 gm IVPB MoWeFr@0800 [facility] - Objective Vital Signs: Vital Signs Temperature 98.3 F 12/23/17 05:00 Pulse Rate 109 H 12/23/17 05:00 Respiratory Rate 20 12/23/17 05:00 Blood Pressure 152/79 12/23/17 05:00 O2 Sat by Pulse Oximetry (%) 98 12/22/17 21:00 Constitutional: Yes: Anxious Eyes: Yes: Conjunctiva Clear Neck: Yes: Supple Cardiovascular: Yes: Regular Rate and Rhythm Respiratory: Yes: Diminished Gastrointestinal: Yes: Soft Extremities: Yes: Other (status post right AKA Left thigh--erythema. dressing present on the hand) Neurological: Yes: Alert Labs: CBC, BMP 12/23/17 07:30 12/23/17 06:30 INR, PTT INR 2.23 (0.82-1.09) H 12/22/17 12:57 Problem List - Problems (1) ESRD on hemodialysis Code(s): N18.6 - END STAGE RENAL DISEASE; Z99.2 - DEPENDENCE ON RENAL DIALYSIS (2) Left leg cellulitis Code(s): L03.116 - CELLULITIS OF LEFT LOWER LIMB (3) Leukocytosis Code(s): D72.829 - ELEVATED WHITE BLOOD CELL COUNT, UNSPECIFIED (4) Status post transmetatarsal amputation of left foot Code(s): Z89.432 - ACQUIRED ABSENCE OF LEFT FOOT (5) Atrial fibrillation Code(s): I48.91 - UNSPECIFIED ATRIAL FIBRILLATION Qualifiers: (6) CAD (coronary artery disease) Code(s): I25.10 - ATHSCL HEART DISEASE OF [place] CORONARY ARTERY W/O ANG PCTRS Qualifiers: Coronary Disease-Associated Artery/Lesion type: [place] artery [place] vs. transplanted heart: [place] heart Associated angina: without angina Qualified Code(s): I25.10 - Atherosclerotic heart disease of [place] coronary artery without angina pectoris (7) DM type 2 causing complication Code(s): E11.8 - TYPE 2 DIABETES MELLITUS WITH UNSPECIFIED COMPLICATIONS Qualifiers: Diabetes mellitus intermediate insulin use: with intermediate use Qualified Code( s): E11.8 - Type 2 diabetes mellitus with unspecified complications; Z79.4 - custodial (current) use of insulin; Z79.4 - senior director of global commercial technology solutions (current) use of insulin; Z79.4 - senior director of global commercial technology solutions (current) use of insulin; Z79.4 - custodial (current) use of insulin (8) Foot amputation status Code(s): Z89.439 - ACQUIRED ABSENCE OF UNSPECIFIED FOOT (9) Hypothyroidism Code(s): E03.9 - HYPOTHYROIDISM, UNSPECIFIED Qualifiers: Assessment/Plan patient well known to me. Recently finished 6 weeks of antibiotics In summary 72 yo old female was recently discharged to [facility] ---with PMH of HTN, DM, HLD, PAD, afib (on Eliquis ), pacemaker/defibrillator, ESRD (M, W, F dialysis; ), R ATK amputation, L foot amputation, L hand 2nd-4th digit amputation (03/12), who presents to the ED c/o LLE pain over the past two days. She has completed a 6-8 week course of these abx through a R PICC line for osteomyelitis of her L hand 2nd-4th digits. now admitted--left lower extremity pain All follow-ups noted Vascular evaluation noted Going for CT scan I agree there is no need for heparin drip at present--we will discontinue Coumadin per INR level Continue other medications Monitor blood sugar Psychology consult Discuss with Dr. Lopez also Will follow. time spent --25 minutes.
[2017-12-23 11:10] LABS: ANISOCYTOSIS 2+; PLATELET ESTIMATE NORMAL
[2017-12-23] MEDS ORDERED: EPOETIN ALFA 10,000 UNIT/1 ML VIAL IVPUSH ONE (13:30)
--- NOTE | 2017-12-23 13:39 | PN ---
Progress Note (short form) - Note Progress Note: continues with leg pain-started lower leg and radiated to thigh outer leg much more painful then inner receiving HD no fevers just completed 6 weeks of iv antibiotics for hand osteomyelitis with daptomycin/ tygacil last dose daptomycin after HD yesterday developed left leg pain 2 days ago- has worsened and presented with pain to ED Vital Signs Period Temp Pulse Resp BP Sys/Cordero Pulse Ox Last 24 Hr 98.2 F-98.3 F 95-109 20-20 132-152/48-89 98-98 cor-rrr lungs clear abd soft,nt ext notes pain entire left leg- painful to touch minimal erythema CBC, BMP 12/23/17 07:30 12/23/17 06:30 Microbiology 12/22/17 00:52 Leg - Left Lower Wound Culture - Preliminary Pending Organism Pending Organism#2 12/21/17 23:30 Blood - Peripheral Venous Blood Culture - Preliminary NO GROWTH OBTAINED AFTER 24 HOURS, INCUBATION TO CONTINUE FOR 4 DAYS. 12/21/17 23:30 Blood - Peripheral Venous Blood Culture - Preliminary NO GROWTH OBTAINED AFTER 24 HOURS, INCUBATION TO CONTINUE FOR 4 DAYS. a/p leg pain suspect leukocytosis is reactive -doubt this is infectious ct scan is pending vascular f/u continue cefepime pending imaging and blood culture results d/w Dr Dalton
[2017-12-23] MEDS: SODIUM THIOSULFATE 12.5 GM/50 ML VIAL IVPB SCH (15:30)
--- NOTE | 2017-12-23 16:19 | PN ---
Progress Note (short form) - Note Progress Note: Renal follow up for ESRD on HD Pt seen and examined on dialysis today BP stable goal UF 2L catheter with 350 blood flow pt has left lower leg pain extending up to the thigh s/p CT of the lower extremity today Vital Signs Temperature 98.4 F 12/23/17 12:35 Pulse Rate 73 12/23/17 15:40 Respiratory Rate 18 12/23/17 15:40 Blood Pressure 113/63 12/23/17 15:40 O2 Sat by Pulse Oximetry (%) 98 12/22/17 21:00 Intake & Output 12/20/17 12/21/17 12/22/17 12/23/17 23:59 23:59 23:59 23:59 Intake Total 636 Balance 636 Weight 72.575 kg 86.183 kg 85.91 kg NAD, awake and alert No JVD, Neck supple RRR, No M/R CTA soft, obese, + tender lesion on left side of abd LLE with diffuse tenderness CBC, BMP 12/23/17 07:30 12/23/17 06:30 Current Medications Amino Acids (Prosource No Carb Liquid Pkt) 30 ml PO BID@0800,1730 [facility] Last Admin: 12/23/17 08:42 Dose: 30 ml Aspirin (Asa -) 81 mg PO DAILY [facility] Last Admin: 12/22/17 09:25 Dose: 81 mg Atorvastatin Calcium (Lipitor -) 10 mg PO HS [facility] Cefepime HCl (Maxipime 1 Gm Premix Ivpb) 1 gm IVPB DAILY [facility] Last Admin: 12/23/17 15:46 Dose: 1 gm Insulin Aspart (Novolog Vial Sliding Scale -) 1 vial SQ ACHS [facility] PRN Reason: Protocol Last Admin: 12/23/17 06:21 Dose: Not Given Levothyroxine Sodium (Synthroid -) 125 mcg PO DAILY@0700 [facility] Last Admin: 12/23/17 06:25 Dose: 125 mcg Metoprolol Tartrate (Lopressor -) 12.5 mg PO DAILY [facility] Last Admin: 12/22/17 10:04 Dose: 12.5 mg Nystatin (Mycostatin Cream -) 1 applic TP DAILY [facility] Last Admin: 12/22/17 10:04 Dose: 1 applic Oxycodone HCl (Roxicodone -) 5 mg PO Q6H PRN PRN Reason: PAIN LEVEL 6-10 Last Admin: 12/23/17 08:43 Dose: 5 mg Pantoprazole Sodium (Protonix -) 40 mg PO DAILY [facility] Last Admin: 12/22/17 10:05 Dose: 40 mg Senna (Senna -) 1 tab PO DAILY [facility] Last Admin: 12/22/17 10:05 Dose: 1 tab Sevelamer Carbonate (Renvela -) 1,600 mg PO TIDCM [facility] Last Admin: 12/23/17 08:42 Dose: 1,600 mg Silver Sulfadiazine (Silvadene -) 1 applic TP DAILY [facility] Last Admin: 12/22/17 10:06 Dose: 1 applic Sodium Thiosulfate (Sodium Thiosulfate) 25 gm IVPB MoWeFr@0800 [facility] Last Admin: 12/23/17 15:30 Dose: 25 gm 72 year old woman with PMhx of ESRD on HD, Hypertension, CAD, PVD s/p amputations, Afib on Eliquis, Calciphylaxis who presented with LE wound and admitted for Sepsis. #ESRD on HD #Sepsis with LE wound #Calciphaylaxis #CKD Related Anemia #Hypothyroidism tolerating dialysis well Vascular follow up CT w/o evidence of any abcess ? neuropathic pain continue sodium thiosulfatelacy DO
[2017-12-23] MEDS: SENNOSIDES 8.6MG TABLET (FP) PO SCH (16:45)
[2017-12-23] MEDS: PANTOPRAZOLE 40 MG TABLET (FP) PO SCH (16:45)
[2017-12-23] MEDS: ASPIRIN 81 MG CHEWABLE TABLETS PO SCH (16:45)
[2017-12-23] MEDS: METOPROLOL TARTRATE 25 MG TABLET (FP) PO SCH (16:46)
--- NOTE | 2017-12-23 17:21 | PN ---
Progress Note (short form) - Note Progress Note: Afebrile Pain unchanged along outer aspect of left thigh. No change in exam: no wounds or skin changes in area of pain. WBC 18K CT shows edema in the leg, no abscess or fluid collection. Imp: No evidence for thigh infection to explain pain. Other causes need to be explored. Rec:Better pain management Neurology and/or Pain service evaluation I will be away until 01/02. Dr. Walter covering for vascular problems. Problem List - Problems (1) Leg pain, left Code(s): M79.605 - PAIN IN LEFT LEG
[2017-12-23] MEDS: SILVER SULFADIAZINE 1% TOP CREAM 50 GM JAR TP SCH (17:23)
[2017-12-23] MEDS: guaiFENesin/D-METHORPHAN HB 10 ML UNIT-DOSE CUPS PO PRN (18:10)
[2017-12-23] MEDS ORDERED: diphenhydrAMINE HCL 25 MG CAPSULE (FP) PO SCH (20:00)
[2017-12-23] MEDS ORDERED: diphenhydrAMINE HCL 25 MG CAPSULE (FP) PO ONE (20:00)
[2017-12-23] MEDS: ATORVASTATIN CA 10 MG TABLET (FP) PO SCH (21:48)
[2017-12-24] MEDS: guaiFENesin/D-METHORPHAN HB 10 ML UNIT-DOSE CUPS PO PRN ×3 (01:26→17:14)
[2017-12-24] MEDS: LEVOTHYROXINE NA 125 MCG TABLET (FP) PO SCH (06:40)
[2017-12-24] MEDS: INSULIN SLIDING SCALE (NOVOLOG) 1 VIAL SQ SCH ×4 (07:47→22:28)
--- NOTE | 2017-12-24 08:05 | PN ---
Progress Note, Physician Chief Complaint: ID Alert NAD Cefepime Remains afebrile - Current Medication List Current Medications: Active Medications Amino Acids (Prosource No Carb Liquid Pkt) 30 ml PO BID@0800,1730 [facility] Last Admin: 12/23/17 18:03 Dose: Not Given Aspirin (Asa -) 81 mg PO DAILY [facility] Last Admin: 12/23/17 16:45 Dose: 81 mg Atorvastatin Calcium (Lipitor -) 10 mg PO HS [facility] Last Admin: 12/23/17 21:48 Dose: 10 mg Cefepime HCl (Maxipime 1 Gm Premix Ivpb) 1 gm IVPB DAILY [facility] Last Admin: 12/23/17 15:46 Dose: 1 gm Guaifenesin (Robitussin Dm -) 10 ml PO Q6H PRN PRN Reason: COUGH Last Admin: 12/24/17 01:26 Dose: 10 ml Insulin Aspart (Novolog Vial Sliding Scale -) 1 vial SQ ACHS [facility] PRN Reason: Protocol Last Admin: 12/24/17 07:47 Dose: Not Given Levothyroxine Sodium (Synthroid -) 125 mcg PO DAILY@0700 [facility] Last Admin: 12/24/17 06:40 Dose: 125 mcg Metoprolol Tartrate (Lopressor -) 12.5 mg PO DAILY [facility] Last Admin: 12/23/17 16:46 Dose: 12.5 mg Nystatin (Mycostatin Cream -) 1 applic TP DAILY [facility] Last Admin: 12/22/17 10:04 Dose: 1 applic Oxycodone HCl (Roxicodone -) 5 mg PO Q6H PRN PRN Reason: PAIN LEVEL 6-10 Last Admin: 12/23/17 16:46 Dose: 5 mg Pantoprazole Sodium (Protonix -) 40 mg PO DAILY [facility] Last Admin: 12/23/17 16:45 Dose: 40 mg Senna (Senna -) 1 tab PO DAILY [facility] Last Admin: 12/23/17 16:45 Dose: 1 tab Sevelamer Carbonate (Renvela -) 1,600 mg PO TIDCM [facility] Last Admin: 12/23/17 17:08 Dose: Not Given Silver Sulfadiazine (Silvadene -) 1 applic TP DAILY [facility] Last Admin: 12/23/17 17:23 Dose: 1 applic Sodium Thiosulfate (Sodium Thiosulfate) 25 gm IVPB MoWeFr@0800 [facility] Last Admin: 12/23/17 15:30 Dose: 25 gm - Objective Vital Signs: Vital Signs Temperature 98.1 F 12/24/17 06:00 Pulse Rate 95 H 12/24/17 06:00 Respiratory Rate 20 12/24/17 06:00 Blood Pressure 160/70 12/24/17 06:00 O2 Sat by Pulse Oximetry (%) 98 12/23/17 21:00 Constitutional: Yes: Obese Neck: Yes: WNL, Supple Cardiovascular: Yes: S1, S2 Respiratory: Yes: WNL, Regular, CTA Bilaterally Gastrointestinal: Yes: Soft. No: Tenderness Extremities: Yes: Other (IschemiaLLE) Labs: CBC, BMP 12/23/17 07:30 12/23/17 16:15 INR, PTT INR 2.23 (0.82-1.09) H 12/22/17 12:57 Assessment/Plan Microbiology 12/22/17 00:52 Leg - Left Lower Gram Stain - Final 12/22/17 00:52 Leg - Left Lower Wound Culture - Preliminary Pending Organism Pending Organism#2 12/21/17 23:30 Blood - Peripheral Venous Blood Culture - Preliminary NO GROWTH OBTAINED AFTER 48 HOURS, INCUBATION TO CONTINUE FOR 3 DAYS. 12/21/17 23:30 Blood - Peripheral Venous Blood Culture - Preliminary NO GROWTH OBTAINED AFTER 48 HOURS, INCUBATION TO CONTINUE FOR 3 DAYS. Laboratory Tests 12/23/17 07:30 WBC 18.4 H Hgb 9.7 L Hct 30.6 L Plt Count 345 Assessment S/P treatment for osteo/amputation Dr Swenson Seen by Dr Hilton no infection found ESRD History of MDRO Leukocytosis unclear No fevers blood cultures neg Plan NO going to treat the wound culture at this point Stop antibiotic
[2017-12-24 08:14] LABS: HEMATOCRIT 27.5 % (32.4-45.2); HEMOGLOBIN 8.8 GM/dL (10.7-15.3); MCH 31.7 pg (25.7-33.7); MEAN PLT VOLUME 8.5 fl (7.5-11.1); PLATELET COUNT 324 K/MM3 (134-434); RBC 2.77 M/mm3 (3.60-5.2); RDW 22.4 % (11.6-15.6); WHITE BLOOD COUNT 14.7 K/mm3 (4.0-10.0)
[2017-12-24 08:40] LABS: ANION GAP 8 (8-16); BLOOD UREA NITROGEN 17 mg/dL (7-18); CALCIUM 7.1 mg/dL (8.5-10.1); CHLORIDE 103 mmol/L (98-107); CO2 29 mmol/L (21-32); CREATININE 2.4 mg/dL (0.55-1.02); GLUCOSE,RANDOM 136 mg/dL (74-106); POTASSIUM 3.6 mmol/L (3.5-5.1); SODIUM 140 mmol/L (136-145)
[2017-12-24] MEDS: AMINO ACIDS/PROTEIN HYDROLYS 30 ML LIQUID.PKT PO SCH ×2 (08:41→17:14)
[2017-12-24] MEDS: SEVELAMER CARBONATE 800 MG TAB (FP) PO SCH ×3 (08:41→17:14)
[2017-12-24] MEDS ORDERED: PT OWN MED DRAWER 7, Y5N ONE (10:10)
[2017-12-24] MEDS: METOPROLOL TARTRATE 25 MG TABLET (FP) PO SCH (10:14)
[2017-12-24] MEDS: ASPIRIN 81 MG CHEWABLE TABLETS PO SCH (10:14)
[2017-12-24] MEDS: PANTOPRAZOLE 40 MG TABLET (FP) PO SCH (10:16)
[2017-12-24] MEDS: SENNOSIDES 8.6MG TABLET (FP) PO SCH (10:16)
[2017-12-24] MEDS: NYSTATIN 100,000 UNIT/GM TOPICAL CREAM 15 GM TUBE TP SCH (10:17)
[2017-12-24] MEDS ORDERED: LEVOTHYROXINE NA 125 MCG TABLET (FP) PO SCH (11:11)
--- NOTE | 2017-12-24 11:19 | PN ---
Progress Note, Physician History of Present Illness: patient seen and examined. c/c-- pain and constipation. do not want i/v pain meds ct scan noted - no abscess. all f/u noted - Current Medication List Current Medications: Active Medications Amino Acids (Prosource No Carb Liquid Pkt) 30 ml PO BID@0800,1730 [facility] Last Admin: 12/24/17 08:41 Dose: 30 ml Apixaban (Eliquis -) 2.5 mg PO BID [facility] Aspirin (Asa -) 81 mg PO DAILY [facility] Last Admin: 12/24/17 10:14 Dose: 81 mg Atorvastatin Calcium (Lipitor -) 10 mg PO HS [facility] Last Admin: 12/23/17 21:48 Dose: 10 mg Bisacodyl (Dulcolax -) 10 mg PO DAILY PRN PRN Reason: CONSTIPATION Guaifenesin (Robitussin Dm -) 10 ml PO Q6H PRN PRN Reason: COUGH Last Admin: 12/24/17 10:17 Dose: 10 ml Insulin Aspart (Novolog Vial Sliding Scale -) 1 vial SQ ACHS [facility] PRN Reason: Protocol Last Admin: 12/24/17 07:47 Dose: Not Given Levothyroxine Sodium (Synthroid -) 137 mcg PO DAILY@0700 [facility] Metoprolol Tartrate (Lopressor -) 12.5 mg PO DAILY [facility] Last Admin: 12/24/17 10:14 Dose: 12.5 mg Nystatin (Mycostatin Cream -) 1 applic TP DAILY [facility] Last Admin: 12/24/17 10:17 Dose: 1 applic Oxycodone HCl (Roxicodone -) 10 mg PO Q6H PRN PRN Reason: PAIN LEVEL 6-10 Pantoprazole Sodium (Protonix -) 40 mg PO DAILY [facility] Last Admin: 12/24/17 10:16 Dose: 40 mg Senna (Senna -) 1 tab PO DAILY [facility] Last Admin: 12/24/17 10:16 Dose: 1 tab Sevelamer Carbonate (Renvela -) 1,600 mg PO TIDCM [facility] Last Admin: 12/24/17 08:41 Dose: 1,600 mg Silver Sulfadiazine (Silvadene -) 1 applic TP DAILY [facility] Last Admin: 12/23/17 17:23 Dose: 1 applic Sodium Thiosulfate (Sodium Thiosulfate) 25 gm IVPB MoWeFr@0800 [facility] Last Admin: 12/23/17 15:30 Dose: 25 gm - Objective Vital Signs: Vital Signs Temperature 98.1 F 12/24/17 06:00 Pulse Rate 95 H 12/24/17 06:00 Respiratory Rate 20 12/24/17 06:00 Blood Pressure 160/70 12/24/17 06:00 O2 Sat by Pulse Oximetry (%) 98 12/23/17 21:00 Constitutional: Yes: Calm Eyes: Yes: Conjunctiva Clear Neck: Yes: Supple Cardiovascular: Yes: Pulse Irregular Respiratory: Yes: Diminished Gastrointestinal: Yes: Soft Extremities: Yes: Amputation, Other (left extremity tenderness) Neurological: Yes: Alert Psychiatric: Yes: Alert Labs: CBC, BMP 12/24/17 06:40 12/24/17 06:40 INR, PTT INR 2.23 (0.82-1.09) H 12/22/17 12:57 Problem List - Problems (1) ESRD on hemodialysis Code(s): N18.6 - END STAGE RENAL DISEASE; Z99.2 - DEPENDENCE ON RENAL DIALYSIS (2) Left leg cellulitis Code(s): L03.116 - CELLULITIS OF LEFT LOWER LIMB (3) Leukocytosis Code(s): D72.829 - ELEVATED WHITE BLOOD CELL COUNT, UNSPECIFIED (4) Status post transmetatarsal amputation of left foot Code(s): Z89.432 - ACQUIRED ABSENCE OF LEFT FOOT (5) Atrial fibrillation Code(s): I48.91 - UNSPECIFIED ATRIAL FIBRILLATION Qualifiers: (6) CAD (coronary artery disease) Code(s): I25.10 - ATHSCL HEART DISEASE OF [place] CORONARY ARTERY W/O ANG PCTRS Qualifiers: Coronary Disease-Associated Artery/Lesion type: [place] artery [place] vs. transplanted heart: [place] heart Associated angina: without angina Qualified Code(s): I25.10 - Atherosclerotic heart disease of [place] coronary artery without angina pectoris (7) DM type 2 causing complication Code(s): E11.8 - TYPE 2 DIABETES MELLITUS WITH UNSPECIFIED COMPLICATIONS Qualifiers: Diabetes mellitus terminal operations manager insulin use: with residential use Qualified Code( s): E11.8 - Type 2 diabetes mellitus with unspecified complications; Z79.4 - detention (current) use of insulin; Z79.4 - regional intermodal truck driver (current) use of insulin; Z79.4 - detention (current) use of insulin; Z79.4 - detention (current) use of insulin (8) Foot amputation status Code(s): Z89.439 - ACQUIRED ABSENCE OF UNSPECIFIED FOOT (9) Hypothyroidism Code(s): E03.9 - HYPOTHYROIDISM, UNSPECIFIED Qualifiers: Assessment/Plan Continue present care pain control increase oxy dulcolax increase synthroid dose restart on eliquis restarted on lipitor will follow
[2017-12-24 11:43] LABS: ANISOCYTOSIS 2+; MACROCYTOSIS 1+; PLATELET ESTIMATE NORMAL
[2017-12-24] MEDS: APIXABAN 2.5 MG TABLET PO SCH ×2 (11:45→22:24)
[2017-12-24] MEDS: oxyCODONE HCL 5 MG TABLET PO PRN (11:46)
[2017-12-24] MEDS: LIDOCAINE 5% TOPICAL PATCH TP SCH (13:45)
[2017-12-24] MEDS: SILVER SULFADIAZINE 1% TOP CREAM 50 GM JAR TP SCH (14:54)
--- NOTE | 2017-12-24 16:29 | PN ---
Progress Note (short form) - Note Progress Note: Detailed discussions with daughter and patient. 72 year old female admitted with severe pain, swelling and tenderness to touch involving the left thigh. 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 Known case of CAD, s/p TN, s/p PCI/ Stenting, ESRD-HD, h/o atrial fib, advanced AV block, s/p PPM, s/p rt. AKA, partial amputation of the left foot. Since yesterday, no further swelling, tenderness or pain on palpation of the left thigh. placed on lidoderm patch. Skin necrosis involving the cuticle of the rt. index finger, appears similar to the presentation involving the fingers of the left hand. No chest pain or discomfort, no SOB. Active Medications Generic Name Dose Route Start Last Admin Trade Name Freq PRN Reason Stop Dose Admin Amino Acids 30 ml 12/22/17 08:00 12/24/17 08:41 Prosource No Carb Liquid Pkt PO 30 ml BID@0800,1730 YOAN Administration Apixaban 2.5 mg 12/24/17 11:15 12/24/17 11:45 Eliquis - PO 2.5 mg BID YOAN Administration Aspirin 81 mg 12/22/17 10:00 12/24/17 10:14 Asa - PO 81 mg DAILY YOAN Administration Atorvastatin Calcium 10 mg 12/23/17 22:00 12/23/17 21:48 Lipitor - PO 10 mg HS YOAN Administration Bisacodyl 10 mg 12/24/17 11:15 Dulcolax - PO DAILY PRN CONSTIPATION Guaifenesin 10 ml 12/23/17 17:34 12/24/17 10:17 Robitussin Dm - PO 10 ml Q6H PRN Administration COUGH Insulin Aspart 1 vial 12/22/17 07:00 12/24/17 12:30 Novolog Vial Sliding Scale - SQ 2 unit ACHS YOAN Administration Protocol Levothyroxine Sodium 112 mcg/ 137 mcg 12/25/17 07:00 Levothyroxine Sodium 25 mcg PO DAILY@0700 YOAN Lidocaine 1 patch 12/24/17 12:30 12/24/17 13:45 Lidoderm Patch - TP 1 patch DAILY YOAN Administration Metoprolol Tartrate 12.5 mg 12/22/17 10:00 12/24/17 10:14 Lopressor - PO 12.5 mg DAILY YOAN Administration Miscellaneous 1 each 12/24/17 22:00 Lidoderm Patch Removal MC DAILY@2200 YOAN Nystatin 1 applic 12/22/17 10:00 12/24/17 10:17 Mycostatin Cream - TP 1 applic DAILY YOAN Administration Oxycodone HCl 10 mg 12/24/17 11:15 12/24/17 11:46 Roxicodone - PO 10 mg Q6H PRN Administration PAIN LEVEL 6-10 Pantoprazole Sodium 40 mg 12/22/17 10:00 12/24/17 10:16 Protonix - PO 40 mg DAILY YOAN Administration Senna 1 tab 12/22/17 10:00 12/24/17 10:16 Senna - PO 1 tab DAILY YOAN Administration Sevelamer Carbonate 1,600 mg 12/22/17 17:30 12/24/17 12:23 Renvela - PO 1,600 mg TIDCM YOAN Administration Silver Sulfadiazine 1 applic 12/22/17 10:00 12/24/17 14:54 Silvadene - TP 1 applic DAILY YOAN Administration Sodium Thiosulfate 25 gm 12/23/17 08:00 12/23/17 15:30 Sodium Thiosulfate IVPB 25 gm MoWeFr@0800 YOAN Administration 72 year old female in no distress, no pallor, cyanosis, no clubbing or jaundice. Last Vital Signs Temp Pulse Resp BP Pulse Ox 98.3 F 103 H 20 161/73 98 12/24/17 14:49 12/24/17 08:25 12/24/17 08:25 12/24/17 08:25 12/23/17 21:00 NECK: Supple, no JVD, carotids 1-2+, no bruit appreciated. HEART: PMI in the 5th ICS, S1 & S2 are normal, gradeI/ systolic murmur, no gallops heard. LUNGS: Clear on auscultation. ABDOMEN: Soft, nontender, no organomegaly. Firm lesions involving the left abdominal wall. No masses felt. EXT: AKA upto the rt. hip, partial amputation of the Lt. foot. No further tenderness or pain of the Lt. thigh. CBC, BMP 12/24/17 06:40 12/24/17 06:40 IMPRESSION: 1. Recurring vasculitis, with new lesion involving the rt. index finger( after warfarin had been d/c'd). Etiology remains unclear. a).Possibily related to small vessel disease. b).Rheumatogical diseases including PAD need to be excluded. c).Other Vasculitides. d).Medications. 2.CAD, s/p PCI/Stenting. 3.IDDM with multi system involvement. 4.ESRD-HD. 5.LV systolic dysfunction. 6.Anemia, probably of chronic disease. 7.H/o atrial fib. 8.S/p PPM for Advanced AV block. 9.Multiple amputations. 10.Dyslipidemia. RECOMMENDATIONS: 1.Rheumatological evaluation. 2.Heme/Oncological consultation. 3.BETTE,RA factor. 4.ANCA. Time spent:1hr. 20Mins.
--- NOTE | 2017-12-24 16:47 | PN ---
Progress Note, Physician Chief Complaint: left hand dry gangrene History of Present Illness: 72 yo RHD female from [facility] with PMH HTN, DM, HLD, PAD, afib (on Eliquis 2.5mg PO BID), pacemaker/defibrillator, ESRD (M, W, F dialysis; L chest tunnel cath. Anuric), R ATK amputation, L foot amputation, L hand 2nd-4th digit amputation (03/12), who presents to the ED c/o LLE pain over the past two days. She has completed a 6-8 week course of these abx through a R PICC line for osteomyelitis of her L hand 2nd-4th digits. No acute events overnight, She is depressed and tearful regarding her condition. - Current Medication List Current Medications: Active Medications Amino Acids (Prosource No Carb Liquid Pkt) 30 ml PO BID@0800,1730 [facility] Last Admin: 12/24/17 08:41 Dose: 30 ml Apixaban (Eliquis -) 2.5 mg PO BID [facility] Last Admin: 12/24/17 11:45 Dose: 2.5 mg Aspirin (Asa -) 81 mg PO DAILY [facility] Last Admin: 12/24/17 10:14 Dose: 81 mg Atorvastatin Calcium (Lipitor -) 10 mg PO HS [facility] Last Admin: 12/23/17 21:48 Dose: 10 mg Bisacodyl (Dulcolax -) 10 mg PO DAILY PRN PRN Reason: CONSTIPATION Guaifenesin (Robitussin Dm -) 10 ml PO Q6H PRN PRN Reason: COUGH Last Admin: 12/24/17 10:17 Dose: 10 ml Insulin Aspart (Novolog Vial Sliding Scale -) 1 vial SQ ACHS [facility] PRN Reason: Protocol Last Admin: 12/24/17 12:30 Dose: 2 unit Levothyroxine Sodium 112 mcg/ (Levothyroxine Sodium 25 mcg) 137 mcg PO DAILY@ 0700 [facility] Lidocaine (Lidoderm Patch -) 1 patch TP DAILY [facility] Last Admin: 12/24/17 13:45 Dose: 1 patch Metoprolol Tartrate (Lopressor -) 12.5 mg PO DAILY [facility] Last Admin: 12/24/17 10:14 Dose: 12.5 mg Miscellaneous (Lidoderm Patch Removal) 1 each MC DAILY@2200 [facility] Nystatin (Mycostatin Cream -) 1 applic TP DAILY [facility] Last Admin: 12/24/17 10:17 Dose: 1 applic Oxycodone HCl (Roxicodone -) 10 mg PO Q6H PRN PRN Reason: PAIN LEVEL 6-10 Last Admin: 12/24/17 11:46 Dose: 10 mg Pantoprazole Sodium (Protonix -) 40 mg PO DAILY [facility] Last Admin: 12/24/17 10:16 Dose: 40 mg Senna (Senna -) 1 tab PO DAILY [facility] Last Admin: 12/24/17 10:16 Dose: 1 tab Sevelamer Carbonate (Renvela -) 1,600 mg PO TIDCM [facility] Last Admin: 12/24/17 12:23 Dose: 1,600 mg Silver Sulfadiazine (Silvadene -) 1 applic TP DAILY [facility] Last Admin: 12/24/17 14:54 Dose: 1 applic Sodium Thiosulfate (Sodium Thiosulfate) 25 gm IVPB MoWeFr@0800 [facility] Last Admin: 12/23/17 15:30 Dose: 25 gm - Objective Vital Signs: Vital Signs Temperature 98.3 F 12/24/17 14:49 Pulse Rate 103 H 12/24/17 08:25 Respiratory Rate 20 12/24/17 08:25 Blood Pressure 161/73 12/24/17 08:25 O2 Sat by Pulse Oximetry (%) 98 12/23/17 21:00 Vital Signs Period Temp Pulse Resp BP Sys/Cordero Pulse Ox Last 24 Hr 96.7 F-98.3 F 95-103 20-20 118-161/64-73 98 Constitutional: Yes: No Distress, Calm, Obese Eyes: Yes: Conjunctiva Clear, EOM Intact HENT: Yes: Atraumatic, Normocephalic Neck: Yes: Supple, Trachea Midline Cardiovascular: Yes: Regular Rate and Rhythm, S1, S2. No: Murmur Respiratory: Yes: Regular, CTA Bilaterally Gastrointestinal: Yes: Normal Bowel Sounds, Soft, Abdomen, Obese, Other (flank edema and ecchymosis). No: Tenderness ...Rectal Exam: Yes: Deferred Genitourinary: No: CVA Tenderness - Left, CVA Tenderness - Right Neurological: Yes: Alert, Oriented Psychiatric: Yes: Alert, Oriented Labs: CBC, BMP 12/24/17 06:40 12/24/17 06:40 INR, PTT INR 2.23 (0.82-1.09) H 12/22/17 12:57 Problem List - Problems (1) Gangrene of hand Assessment/Plan: 72yo female MMP presents with exquite pain and ischemic changes LLE while on eloquis, known h/o PVD and amputation s/p left hand multi digit amputation with expanding ischemic changes both hands. Progressive microvascular disease is the likely cause of all recently noted changes. Appreciate vascular surgery assessment. Medical optimization Cardiac and Renal evaluation empiric IV antibiotics Vascular surgery evaluation of LLE CT Angiogram for upper extremities ordered 4/2 prior to dialysis Dry dressing to left hand QOD as soiled Will follow Code(s): I96 - GANGRENE, NOT ELSEWHERE CLASSIFIED (2) ESRD on hemodialysis Code(s): N18.6 - END STAGE RENAL DISEASE; Z99.2 - DEPENDENCE ON RENAL DIALYSIS (3) History of ESBL Klebsiella pneumoniae infection Code(s): Z86.19 - PERSONAL HISTORY OF OTHER INFECTIOUS AND PARASITIC DISEASES (4) Left leg cellulitis Code(s): L03.116 - CELLULITIS OF LEFT LOWER LIMB (5) Status post transmetatarsal amputation of left foot Code(s): Z89.432 - ACQUIRED ABSENCE OF LEFT FOOT (6) Unilateral AKA Code(s): Z89.619 - ACQUIRED ABSENCE OF UNSPECIFIED LEG ABOVE KNEE (7) Cellulitis and abscess of hand Code(s): L03.119 - CELLULITIS OF UNSPECIFIED PART OF LIMB; L02.519 - CUTANEOUS ABSCESS OF UNSPECIFIED HAND (8) Cellulitis of left hand Code(s): L03.114 - CELLULITIS OF LEFT UPPER LIMB (9) Suppurative tenosynovitis of flexor tendon of left hand Code(s): M65.142 - OTHER INFECTIVE (TENO)SYNOVITIS, LEFT HAND
[2017-12-24] MEDS: ATORVASTATIN CA 10 MG TABLET (FP) PO SCH (22:24)
[2017-12-24] MEDS: LIDOCAINE PATCH REMOVAL MC SCH (22:28)
--- NOTE | 2017-12-24 23:50 | PN ---
Progress Note (short form) - Note Progress Note: 72 year old woman with PMhx of ESRD on HD, Hypertension, CAD, PVD s/p amputations, Afib on Eliquis, Calciphylaxis LE wound and admitted for Sepsis. Current Medications Amino Acids (Prosource No Carb Liquid Pkt) 30 ml PO BID@0800,1730 [facility] Last Admin: 12/24/17 17:14 Dose: 30 ml Apixaban (Eliquis -) 2.5 mg PO BID [facility] Last Admin: 12/24/17 22:24 Dose: 2.5 mg Aspirin (Asa -) 81 mg PO DAILY [facility] Last Admin: 12/24/17 10:14 Dose: 81 mg Atorvastatin Calcium (Lipitor -) 10 mg PO HS [facility] Last Admin: 12/24/17 22:24 Dose: 10 mg Bisacodyl (Dulcolax -) 10 mg PO DAILY PRN PRN Reason: CONSTIPATION Guaifenesin (Robitussin Dm -) 10 ml PO Q6H PRN PRN Reason: COUGH Last Admin: 12/24/17 17:14 Dose: 10 ml Insulin Aspart (Novolog Vial Sliding Scale -) 1 vial SQ ACHS [facility] PRN Reason: Protocol Last Admin: 12/24/17 22:28 Dose: Not Given Levothyroxine Sodium 112 mcg/ (Levothyroxine Sodium 25 mcg) 137 mcg PO DAILY@ 0700 [facility] Lidocaine (Lidoderm Patch -) 1 patch TP DAILY [facility] Last Admin: 12/24/17 13:45 Dose: 1 patch Metoprolol Tartrate (Lopressor -) 12.5 mg PO DAILY [facility] Last Admin: 12/24/17 10:14 Dose: 12.5 mg Miscellaneous (Lidoderm Patch Removal) 1 each MC DAILY@2200 [facility] Last Admin: 12/24/17 22:28 Dose: Not Given Nystatin (Mycostatin Cream -) 1 applic TP DAILY [facility] Last Admin: 12/24/17 10:17 Dose: 1 applic Oxycodone HCl (Roxicodone -) 10 mg PO Q6H PRN PRN Reason: PAIN LEVEL 6-10 Last Admin: 12/24/17 11:46 Dose: 10 mg Pantoprazole Sodium (Protonix -) 40 mg PO DAILY [facility] Last Admin: 12/24/17 10:16 Dose: 40 mg Senna (Senna -) 1 tab PO DAILY [facility] Last Admin: 12/24/17 10:16 Dose: 1 tab Sevelamer Carbonate (Renvela -) 1,600 mg PO TIDCM [facility] Last Admin: 12/24/17 17:14 Dose: 1,600 mg Silver Sulfadiazine (Silvadene -) 1 applic TP DAILY [facility] Last Admin: 12/24/17 14:54 Dose: 1 applic Sodium Thiosulfate (Sodium Thiosulfate) 25 gm IVPB MoWeFr@0800 [facility] Last Admin: 12/23/17 15:30 Dose: 25 gm Last Vital Signs Temp Pulse Resp BP Pulse Ox 98.2 F 102 H 20 135/70 98 12/24/17 17:11 12/24/17 17:11 12/24/17 17:11 12/24/17 17:11 12/23/17 21:00 CBC, BMP 12/24/17 06:40 12/24/17 06:40 IMP #ESRD on HD #Sepsis with LE wound #Calciphaylaxis #CKD Related Anemia #Hypothyroidism tolerating dialysis well Vascular follow up CT w/o evidence of any abcess ? neuropathic pain continue sodium thiosulfate, renvela
[2017-12-25] MEDS: INSULIN SLIDING SCALE (NOVOLOG) 1 VIAL SQ SCH ×4 (06:38→21:35)
[2017-12-25] MEDS ORDERED: LEVOTHYROXINE NA 112 MCG TABLET (FP) ONE (06:40)
[2017-12-25] MEDS ORDERED: LEVOTHYROXINE NA 25 MCG TABLET (FP) ONE (06:40)
[2017-12-25] MEDS: LEVOTHYROXINE 112 MCG, LEVOTHYROXINE 25 MCG PO SCH (06:54)
[2017-12-25] MEDS: NYSTATIN 100,000 UNIT/GM TOPICAL CREAM 15 GM TUBE TP SCH ×2 (07:10→12:18)
[2017-12-25] MEDS: AMINO ACIDS/PROTEIN HYDROLYS 30 ML LIQUID.PKT PO SCH ×2 (07:44→17:27)
[2017-12-25] MEDS: SEVELAMER CARBONATE 800 MG TAB (FP) PO SCH ×3 (07:44→17:27)
[2017-12-25] MEDS: oxyCODONE HCL 5 MG TABLET PO PRN ×3 (07:44→21:26)
[2017-12-25] MEDS: guaiFENesin/D-METHORPHAN HB 10 ML UNIT-DOSE CUPS PO PRN ×2 (07:44→21:26)
[2017-12-25] MEDS: LIDOCAINE 5% TOPICAL PATCH TP SCH ×2 (08:43→09:19)
[2017-12-25] MEDS: METOPROLOL TARTRATE 25 MG TABLET (FP) PO SCH (09:19)
[2017-12-25] MEDS: APIXABAN 2.5 MG TABLET PO SCH ×2 (09:19→21:25)
[2017-12-25] MEDS: PANTOPRAZOLE 40 MG TABLET (FP) PO SCH (09:19)
[2017-12-25] MEDS: BISACODYL 5 MG TABLET.DR (FP) PO PRN (09:19)
[2017-12-25] MEDS: ASPIRIN 81 MG CHEWABLE TABLETS PO SCH (09:19)
[2017-12-25] MEDS: SENNOSIDES 8.6MG TABLET (FP) PO SCH (09:19)
[2017-12-25] MEDS: SILVER SULFADIAZINE 1% TOP CREAM 50 GM JAR TP SCH (09:21)
[2017-12-25 09:31] LABS: HEMATOCRIT 32.9 % (32.4-45.2); HEMOGLOBIN 10.3 GM/dL (10.7-15.3); MCH 31.7 pg (25.7-33.7); MCHC 31.2 g/dl (32.0-36.0); MEAN CELL VOLUME 101.6 fl (80-96); MEAN PLT VOLUME 8.2 fl (7.5-11.1); PLATELET COUNT 398 K/MM3 (134-434); RBC 3.24 M/mm3 (3.60-5.2); RDW 22.6 % (11.6-15.6); WHITE BLOOD COUNT 15.7 K/mm3 (4.0-10.0)
--- NOTE | 2017-12-25 09:49 | PN ---
Progress Note (short form) - Note Progress Note: Pt seen/ examined today says pain better all f/u noted ct angio has been ordered of upper extremities - before dialysis I have detailed talk with pts daughter regarding her condition. Vital Signs Temp 98 F 12/24/17 21:00 Pulse 94 H 12/24/17 21:00 Resp 18 12/24/17 21:00 BP 136/94 12/24/17 21:00 Pulse Ox 98 12/23/17 21:00 Intake & Output 12/24/17 12/24/17 12/25/17 11:59 23:59 11:59 Intake Total 100 150 Balance 100 150 Weight 193 lb 8 oz Intake: Oral 100 150 Other: Voiding Method Incontinent Incontinent Bowel Movement Yes: 1 No Weight Measurement Method Built in [facility] Active Medications Amino Acids (Prosource No Carb Liquid Pkt) 30 ml PO BID@0800,1730 [facility] Last Admin: 12/25/17 07:44 Dose: 30 ml Apixaban (Eliquis -) 2.5 mg PO BID [facility] Last Admin: 12/25/17 09:19 Dose: 2.5 mg Aspirin (Asa -) 81 mg PO DAILY [facility] Last Admin: 12/25/17 09:19 Dose: 81 mg Atorvastatin Calcium (Lipitor -) 80 mg PO HS [facility] Bisacodyl (Dulcolax -) 10 mg PO DAILY PRN PRN Reason: CONSTIPATION Last Admin: 12/25/17 09:19 Dose: 10 mg Guaifenesin (Robitussin Dm -) 10 ml PO Q6H PRN PRN Reason: COUGH Last Admin: 12/25/17 07:44 Dose: 10 ml Insulin Aspart (Novolog Vial Sliding Scale -) 1 vial SQ ACHS [facility] PRN Reason: Protocol Last Admin: 12/25/17 06:38 Dose: Not Given Levothyroxine Sodium 112 mcg/ (Levothyroxine Sodium 25 mcg) 137 mcg PO DAILY@ 0700 [facility] Last Admin: 12/25/17 06:54 Dose: 137 mcg Lidocaine (Lidoderm Patch -) 1 patch TP DAILY [facility] Last Admin: 12/25/17 09:19 Dose: Not Given Metoprolol Tartrate (Lopressor -) 12.5 mg PO DAILY [facility] Last Admin: 12/25/17 09:19 Dose: 12.5 mg Miscellaneous (Lidoderm Patch Removal) 1 each MC DAILY@2200 [facility] Last Admin: 12/24/17 22:28 Dose: Not Given Nystatin (Mycostatin Cream -) 1 applic TP DAILY [facility] Last Admin: 12/25/17 07:10 Dose: Not Given Oxycodone HCl (Roxicodone -) 10 mg PO Q6H PRN PRN Reason: PAIN LEVEL 6-10 Last Admin: 12/25/17 07:44 Dose: 10 mg Pantoprazole Sodium (Protonix -) 40 mg PO DAILY [facility] Last Admin: 12/25/17 09:19 Dose: 40 mg Senna (Senna -) 1 tab PO DAILY [facility] Last Admin: 12/25/17 09:19 Dose: 1 tab Sevelamer Carbonate (Renvela -) 1,600 mg PO TIDCM [facility] Last Admin: 12/25/17 07:44 Dose: 1,600 mg Silver Sulfadiazine (Silvadene -) 1 applic TP DAILY [facility] Last Admin: 12/25/17 09:21 Dose: 1 applic Sodium Thiosulfate (Sodium Thiosulfate) 25 gm IVPB MoWeFr@0800 [facility] Last Admin: 12/23/17 15:30 Dose: 25 gm CBC, BMP 12/24/17 06:40 Microbiology 12/21/17 23:30 Blood Culture - Preliminary Blood - Peripheral Venous NO GROWTH OBTAINED AFTER 72 HOURS, INCUBATION TO CONTINUE FOR 2 DAYS. 12/21/17 23:30 Blood Culture - Preliminary Blood - Peripheral Venous NO GROWTH OBTAINED AFTER 72 HOURS, INCUBATION TO CONTINUE FOR 2 DAYS. 12/22/17 00:52 Gram Stain - Final Leg - Left Lower Wound Culture - Preliminary Presumptive Ps Aeruginosa Yeast Like Organism Physical Exam Constitutional: Yes: Calm/ comfortable Eyes: Yes: Conjunctiva Clear Neck: Yes: Supple Cardiovascular: Yes: Pulse Irregular Respiratory: Yes: Diminished Gastrointestinal: Yes: Soft Extremities: Yes: Amputation, Other (left extremity tenderness)-- hand dressing + Neurological: Yes: Alert Psychiatric: Yes: Alert Assessment/Plan I believe she has extensive microvascular disease Continue present care pain control laxatives change lipitor to 80 mg. monitor bgm will consult rheumatology also will follow time spend 30 min . Problem List - Problems (1) ESRD on hemodialysis Code(s): N18.6 - END STAGE RENAL DISEASE; Z99.2 - DEPENDENCE ON RENAL DIALYSIS (2) Left leg cellulitis Code(s): L03.116 - CELLULITIS OF LEFT LOWER LIMB (3) Leukocytosis Code(s): D72.829 - ELEVATED WHITE BLOOD CELL COUNT, UNSPECIFIED (4) Status post transmetatarsal amputation of left foot Code(s): Z89.432 - ACQUIRED ABSENCE OF LEFT FOOT (5) Atrial fibrillation Code(s): I48.91 - UNSPECIFIED ATRIAL FIBRILLATION Qualifiers: (6) CAD (coronary artery disease) Code(s): I25.10 - ATHSCL HEART DISEASE OF [place] CORONARY ARTERY W/O ANG PCTRS Qualifiers: Coronary Disease-Associated Artery/Lesion type: [place] artery [place] vs. transplanted heart: [place] heart Associated angina: without angina Qualified Code(s): I25.10 - Atherosclerotic heart disease of [place] coronary artery without angina pectoris (7) DM type 2 causing complication Code(s): E11.8 - TYPE 2 DIABETES MELLITUS WITH UNSPECIFIED COMPLICATIONS Qualifiers: Diabetes mellitus long-term insulin use: with termite treater helper use Qualified Code( s): E11.8 - Type 2 diabetes mellitus with unspecified complications; Z79.4 - local intermodal truck driver (current) use of insulin; Z79.4 - local intermodal truck driver (current) use of insulin; Z79.4 - local intermodal truck driver (current) use of insulin; Z79.4 - local intermodal truck driver (current) use of insulin (8) Foot amputation status Code(s): Z89.439 - ACQUIRED ABSENCE OF UNSPECIFIED FOOT (9) Hypothyroidism Code(s): E03.9 - HYPOTHYROIDISM, UNSPECIFIED Qualifiers:
[2017-12-25] MEDS ORDERED: SODIUM PHOSPHATE/NA BIPHOS 133 ML ENEMA RC ONE (16:00)
[2017-12-25] MEDS: ALBUTEROL SO4 2.5/IPRATROPIUM 0.5 INH SOL 3 ML VIAL.NEB. NEB PRN ×2 (17:53→21:49)
--- NOTE | 2017-12-25 19:24 | PN ---
Progress Note (short form) - Note Progress Note: 72 year old woman with PMhx of ESRD on HD, Hypertension, CAD, PVD s/p amputations, Afib on Eliquis, Calciphylaxis LE wound and admitted for Sepsis. Current Medications Albuterol/Ipratropium (Duoneb -) 1 amp NEB Q6H PRN PRN Reason: SOB/WHEEZING Last Admin: 12/25/17 17:53 Dose: 1 amp Amino Acids (Prosource No Carb Liquid Pkt) 30 ml PO BID@0800,1730 [facility] Last Admin: 12/25/17 17:27 Dose: 30 ml Apixaban (Eliquis -) 2.5 mg PO BID [facility] Last Admin: 12/25/17 09:19 Dose: 2.5 mg Aspirin (Asa -) 81 mg PO DAILY [facility] Last Admin: 12/25/17 09:19 Dose: 81 mg Atorvastatin Calcium (Lipitor -) 80 mg PO HS [facility] Bisacodyl (Dulcolax -) 10 mg PO DAILY PRN PRN Reason: CONSTIPATION Last Admin: 12/25/17 09:19 Dose: 10 mg Guaifenesin (Robitussin Dm -) 10 ml PO Q6H PRN PRN Reason: COUGH Last Admin: 12/25/17 07:44 Dose: 10 ml Insulin Aspart (Novolog Vial Sliding Scale -) 1 vial SQ ACHS [facility] PRN Reason: Protocol Last Admin: 12/25/17 17:27 Dose: 4 unit Levothyroxine Sodium 112 mcg/ (Levothyroxine Sodium 25 mcg) 137 mcg PO DAILY@ 0700 [facility] Last Admin: 12/25/17 06:54 Dose: 137 mcg Lidocaine (Lidoderm Patch -) 1 patch TP DAILY [facility] Last Admin: 12/25/17 09:19 Dose: Not Given Metoprolol Tartrate (Lopressor -) 12.5 mg PO DAILY [facility] Last Admin: 12/25/17 09:19 Dose: 12.5 mg Miscellaneous (Lidoderm Patch Removal) 1 each MC DAILY@2200 [facility] Last Admin: 12/24/17 22:28 Dose: Not Given Nystatin (Mycostatin Cream -) 1 applic TP DAILY [facility] Last Admin: 12/25/17 12:18 Dose: 1 applic Oxycodone HCl (Roxicodone -) 5 mg PO Q6H PRN PRN Reason: PAIN LEVEL 6-10 Last Admin: 12/25/17 15:56 Dose: 5 mg Pantoprazole Sodium (Protonix -) 40 mg PO DAILY [facility] Last Admin: 12/25/17 09:19 Dose: 40 mg Senna (Senna -) 1 tab PO DAILY [facility] Last Admin: 12/25/17 09:19 Dose: 1 tab Sevelamer Carbonate (Renvela -) 1,600 mg PO TIDCM [facility] Last Admin: 12/25/17 17:27 Dose: 1,600 mg Silver Sulfadiazine (Silvadene -) 1 applic TP DAILY [facility] Last Admin: 12/25/17 09:21 Dose: 1 applic Sodium Thiosulfate (Sodium Thiosulfate) 25 gm IVPB MoWeFr@0800 [facility] Last Admin: 12/23/17 15:30 Dose: 25 gm Last Vital Signs Temp Pulse Resp BP Pulse Ox 97.7 F 110 H 22 153/87 93 L 12/25/17 15:25 12/25/17 15:25 12/25/17 15:25 12/25/17 15:25 12/25/17 09:00 lungs clear heart reg abd soft nontender ext no edema CBC, BMP 12/24/17 06:40 12/24/17 06:40 IMP #ESRD on HD #Sepsis with LE wound #Calciphaylaxis #CKD Related Anemia #Hypothyroidism for dialysis tomorrow Vascular follow up CT w/o evidence of any abcess ? neuropathic pain continue sodium thiosulfate, renvela
[2017-12-25] MEDS: ATORVASTATIN CA 80 MG TABLET (FP) PO SCH (21:25)
[2017-12-25] MEDS: LIDOCAINE PATCH REMOVAL MC SCH (21:27)
[2017-12-26] MEDS ORDERED: LEVOTHYROXINE NA 112 MCG TABLET (FP) ONE (05:31)
[2017-12-26] MEDS ORDERED: LEVOTHYROXINE NA 25 MCG TABLET (FP) ONE (05:31)
[2017-12-26] MEDS: LEVOTHYROXINE 112 MCG, LEVOTHYROXINE 25 MCG PO SCH (06:22)
[2017-12-26] MEDS: INSULIN SLIDING SCALE (NOVOLOG) 1 VIAL SQ SCH ×4 (06:23→21:54)
[2017-12-26] MEDS: AMINO ACIDS/PROTEIN HYDROLYS 30 ML LIQUID.PKT PO SCH ×2 (09:16→18:13)
[2017-12-26] MEDS: SEVELAMER CARBONATE 800 MG TAB (FP) PO SCH ×3 (09:16→18:13)
[2017-12-26] MEDS: APIXABAN 2.5 MG TABLET PO SCH ×2 (09:26→21:53)
[2017-12-26] MEDS: ASPIRIN 81 MG CHEWABLE TABLETS PO SCH (09:26)
[2017-12-26] MEDS: METOPROLOL TARTRATE 25 MG TABLET (FP) PO SCH (09:26)
[2017-12-26] MEDS: SENNOSIDES 8.6MG TABLET (FP) PO SCH (09:26)
[2017-12-26] MEDS: PANTOPRAZOLE 40 MG TABLET (FP) PO SCH (09:26)
[2017-12-26] MEDS: NYSTATIN 100,000 UNIT/GM TOPICAL CREAM 15 GM TUBE TP SCH (09:26)
--- NOTE | 2017-12-26 10:33 | CONSULT ---
Consult Consult Specialty:: PULMONARY/CCM Referred by:: Dr. Lopez Reason for Consultation:: ICU evaluation - History of Present Illness Chief Complaint: leg swelling History of Present Illness: 72yo female with h/o HTN, DM, hyperlipidemia, CAD, atrial fibrillation, ESRD on HD, PAD s/p R AKA, L partial foot amputation, left fingers amputation who was admitted with left leg swelling. Recently completed prolonged course of IV antibiotics (Tygacil/Dapto) Was on empiric antibiotics this admission, evaluated by surgery and infectious diseases who do not feel there is an active infection at this time. This AM noted to be tachycardic. Some shortness of breath, feels weak in general. No fevers or chills but with some sweats. EKG showing rapid atrial fibrillation. ID re-evaluating. 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 No: Hematuria Infectious Disease: Yes: MRSA Musculoskeletal: Yes: Other (R rotator cuff repair) Endocrine: Yes: Diabetes Mellitus, Hypothyroidism Additional Medical History: Steal syndrome , PVD- s//p surgery. End stage renal disease (hemodialysis 3x per week). Congestive heart failure. Diabetes. Hypertension. Hyperlipidemia. Peripheral vascular occlusive disease. Hypothyroidism. Anemia. Gastroesophageal reflux disease - Past Surgical History Past Surgical History: Yes: Amputation (Rt AKA, left TMA), Hysterectomy ( thyroid surgery), Stent - Alcohol/Substance Use Hx Alcohol Use: No History of Substance Use: reports: None - Smoking History Smoking history: Never smoked Have you smoked in the past 12 months: No Aproximately how many cigarettes per day: 0 - Social History Usual Living Arrangement: Long Term ADL: Support Services History of Recent Travel: No Home Medications - Allergies Allergies/Adverse Reactions: Allergies Allergy/AdvReac Type Severity Reaction Status Date / Time adhesive tape Allergy Severe SKIN TEAR Verified 12/21/17 22:39 amoxicillin trihydrate AdvReac Severe DIARRHEA Verified 12/21/17 22:39 [From Augmentin] potassium clavulanate AdvReac Severe DIARRHEA Verified 12/21/17 22:39 [From Augmentin] - Home Medications Home Medications: Ambulatory Orders Acetaminophen [Tylenol .Regular Strength -] 650 mg PO Q4H PRN #30 tablet Amino Acids/Protein Hydrolys [Prosource No Carb Liquid Pkt] 30 ml PO BID@0800, 1730 #20 packet 11/24/17 Apixaban [Eliquis] 2.5 mg PO BID #60 tablet 11/24/17 Metoprolol Tartrate [Lopressor -] 12.5 mg PO DAILY 30 Days tablet 11/24/17 Ondansetron [Zofran -] 4 mg PO Q8H PRN #30 tablet 11/24/17 Sevelamer Carbonate [Renvela -] 1,600 mg PO TIDCM #90 tab 11/24/17 Sodium Thiosulfate 25 gm IVPB MoWeFr@0800 #100 ml 11/24/17 oxyCODONE HCL [Roxicodone -] 5 mg PO Q6H PRN #30 tablet MDD 4 11/24/17 Diphenhydramine HCl [Benadryl Capsule -] 25 mg PO DAILY PRN 12/05/17 Insulin Aspart [Novolog Flexpen] 0 unit SQ TID PRN 12/05/17 Nut.tx.imp.renal Fxn,Lac-Reduc [Nepro Carb Steady] 8 oz PO BID 12/05/17 Aspirin [ASA -] 81 mg PO DAILY #30 tab.chew 12/08/17 Levothyroxine [Synthroid -] 125 mcg PO DAILY@0700 #90 tablet 12/08/17 Nystatin Oral Suspension - [Nystatin Oral Susp 583473 Units/5 ML -] 500,000 units PO Q6HPO #10 cup 12/08/17 Nystatin Powder [Nystop Powder -] 1 applic TP BID #30 applic 12/08/17 Pantoprazole Sodium [Protonix -] 40 mg PO DAILY #60 tablet.ec 12/08/17 Clotrimazole 15 gm TP DAILY 12/22/17 Collagenase Clostridium Hist. [Santyl -] 1 applic TP DAILY 12/22/17 Glimepiride 2 mg PO BID 12/22/17 Sennosides [Senna Laxative] 8.6 mg PO DAILY 12/22/17 Silver Sulfadiazine 1% Top Cr [Silvadene] 1 applic TP ONCE 12/22/17 Review of Systems - Review of Systems Constitutional: reports: Diaphoresis, Malaise, Weakness. denies: Chills, Fever Eyes: denies: Recent Change in Vision HENT: denies: Nasal Congestion, Throat Pain Neck: denies: Stiffness, Tenderness Cardiovascular: denies: Chest Pain, Edema, Palpitations, Shortness of Breath Respiratory: denies: Cough, Wheezing Gastrointestinal: denies: Abdominal Pain, Nausea, Vomiting Genitourinary: denies: Dysuria, Hematuria Neurological: denies: Dizziness, Headache Physical Exam Vital Signs: Vital Signs Temperature 97.7 F 12/26/17 06:00 Pulse Rate 118 H 12/26/17 06:00 Respiratory Rate 22 12/26/17 06:00 Blood Pressure 103/52 12/26/17 06:00 O2 Sat by Pulse Oximetry (%) 95 12/25/17 21:00 Constitutional: Yes: Anxious Eyes: Yes: Conjunctiva Clear, EOM Intact HENT: Yes: Atraumatic, Normocephalic Neck: Yes: Supple, Trachea Midline Cardiovascular: Yes: Tachycardia, Pulse Irregular Respiratory: Yes: Diminished (decreased breath sounds at the bases) Gastrointestinal: Yes: Normal Bowel Sounds, Soft. No: Tenderness Edema: Yes Neurological: Yes: Alert, Oriented Labs: CBC, BMP 12/24/17 06:40 Assessment/Plan Atrial Fibrillation with RVR r/o Sepsis ESRD on HD PAD CAD HTN DM Hyperlipidemia - antibiotics per ID - f/u cultures - monitor fever curve, WBC trend - HD per renal - rate control - continue anticoagulation - wound care - can transfer to telemetry for cardiac monitoring, no acute issues for ICU at this time - will follow, please call if any change in clinical condition Thank you for this consult Luis Carlos Anderson MD
--- NOTE | 2017-12-26 10:40 | PN ---
Progress Note, Physician - Current Medication List Current Medications: Active Medications Albuterol/Ipratropium (Duoneb -) 1 amp NEB Q6H PRN PRN Reason: SOB/WHEEZING Last Admin: 12/25/17 21:49 Dose: 1 amp Amino Acids (Prosource No Carb Liquid Pkt) 30 ml PO BID@0800,1730 [facility] Last Admin: 12/26/17 09:16 Dose: Not Given Apixaban (Eliquis -) 2.5 mg PO BID [facility] Last Admin: 12/26/17 09:26 Dose: 2.5 mg Aspirin (Asa -) 81 mg PO DAILY [facility] Last Admin: 12/26/17 09:26 Dose: 81 mg Atorvastatin Calcium (Lipitor -) 80 mg PO HS [facility] Last Admin: 12/25/17 21:25 Dose: 80 mg Bisacodyl (Dulcolax -) 10 mg PO DAILY PRN PRN Reason: CONSTIPATION Last Admin: 12/25/17 09:19 Dose: 10 mg Guaifenesin (Robitussin Dm -) 10 ml PO Q6H PRN PRN Reason: COUGH Last Admin: 12/25/17 21:26 Dose: 10 ml Insulin Aspart (Novolog Vial Sliding Scale -) 1 vial SQ ACHS [facility] PRN Reason: Protocol Last Admin: 12/26/17 06:23 Dose: Not Given Levothyroxine Sodium 112 mcg/ (Levothyroxine Sodium 25 mcg) 137 mcg PO DAILY@ 0700 [facility] Last Admin: 12/26/17 06:22 Dose: 137 mcg Lidocaine (Lidoderm Patch -) 1 patch TP DAILY [facility] Last Admin: 12/25/17 09:19 Dose: Not Given Metoprolol Tartrate (Lopressor -) 12.5 mg PO DAILY [facility] Last Admin: 12/26/17 09:26 Dose: 12.5 mg Miscellaneous (Lidoderm Patch Removal) 1 each MC DAILY@2200 [facility] Last Admin: 12/25/17 21:27 Dose: Not Given Nystatin (Mycostatin Cream -) 1 applic TP DAILY [facility] Last Admin: 12/26/17 09:26 Dose: 1 applic Oxycodone HCl (Roxicodone -) 5 mg PO Q6H PRN PRN Reason: PAIN LEVEL 6-10 Last Admin: 12/25/17 21:26 Dose: 5 mg Pantoprazole Sodium (Protonix -) 40 mg PO DAILY [facility] Last Admin: 12/26/17 09:26 Dose: 40 mg Senna (Senna -) 1 tab PO DAILY [facility] Last Admin: 12/26/17 09:26 Dose: Not Given Sevelamer Carbonate (Renvela -) 1,600 mg PO TIDCM [facility] Last Admin: 12/26/17 09:16 Dose: Not Given Silver Sulfadiazine (Silvadene -) 1 applic TP DAILY [facility] Last Admin: 12/25/17 09:21 Dose: 1 applic Sodium Thiosulfate (Sodium Thiosulfate) 25 gm IVPB MoWeFr@0800 [facility] Last Admin: 12/23/17 15:30 Dose: 25 gm - Objective Vital Signs: Vital Signs Temperature 97.7 F 12/26/17 06:00 Pulse Rate 118 H 12/26/17 06:00 Respiratory Rate 22 12/26/17 06:00 Blood Pressure 103/52 12/26/17 06:00 O2 Sat by Pulse Oximetry (%) 95 12/25/17 21:00 Labs: CBC, BMP 12/24/17 06:40 INR, PTT INR 2.23 (0.82-1.09) H 12/22/17 12:57
--- NOTE | 2017-12-26 10:52 | CON.PSL ---
Psychology Consult Consult Specialty:: Clinical Psychology and Neuropsychology Reason for Consultation:: Depression History Provided By: Patient Limitations to Obtaining History: Clinical Condition (The patient was experiencing severe pain which impeded her ability to do serial 7's. Likewise, her short term memory issue may be due to her pain levels.) Current Medications: Active Medications Albuterol/Ipratropium (Duoneb -) 1 amp NEB Q6H PRN PRN Reason: SOB/WHEEZING Last Admin: 12/25/17 21:49 Dose: 1 amp Amino Acids (Prosource No Carb Liquid Pkt) 30 ml PO BID@0800,1730 [facility] Last Admin: 12/26/17 09:16 Dose: Not Given Apixaban (Eliquis -) 2.5 mg PO BID [facility] Last Admin: 12/26/17 09:26 Dose: 2.5 mg Aspirin (Asa -) 81 mg PO DAILY [facility] Last Admin: 12/26/17 09:26 Dose: 81 mg Atorvastatin Calcium (Lipitor -) 80 mg PO HS [facility] Last Admin: 12/25/17 21:25 Dose: 80 mg Bisacodyl (Dulcolax -) 10 mg PO DAILY PRN PRN Reason: CONSTIPATION Last Admin: 12/25/17 09:19 Dose: 10 mg Guaifenesin (Robitussin Dm -) 10 ml PO Q6H PRN PRN Reason: COUGH Last Admin: 12/25/17 21:26 Dose: 10 ml Insulin Aspart (Novolog Vial Sliding Scale -) 1 vial SQ ACHS [facility] PRN Reason: Protocol Last Admin: 12/26/17 06:23 Dose: Not Given Levothyroxine Sodium 112 mcg/ (Levothyroxine Sodium 25 mcg) 137 mcg PO DAILY@ 0700 [facility] Last Admin: 12/26/17 06:22 Dose: 137 mcg Lidocaine (Lidoderm Patch -) 1 patch TP DAILY [facility] Last Admin: 12/25/17 09:19 Dose: Not Given Metoprolol Tartrate (Lopressor -) 12.5 mg PO DAILY [facility] Last Admin: 12/26/17 09:26 Dose: 12.5 mg Miscellaneous (Lidoderm Patch Removal) 1 each MC DAILY@2200 [facility] Last Admin: 12/25/17 21:27 Dose: Not Given Nystatin (Mycostatin Cream -) 1 applic TP DAILY [facility] Last Admin: 12/26/17 09:26 Dose: 1 applic Oxycodone HCl (Roxicodone -) 5 mg PO Q6H PRN PRN Reason: PAIN LEVEL 6-10 Last Admin: 12/25/17 21:26 Dose: 5 mg Pantoprazole Sodium (Protonix -) 40 mg PO DAILY [facility] Last Admin: 12/26/17 09:26 Dose: 40 mg Senna (Senna -) 1 tab PO DAILY [facility] Last Admin: 12/26/17 09:26 Dose: Not Given Sevelamer Carbonate (Renvela -) 1,600 mg PO TIDCM [facility] Last Admin: 12/26/17 09:16 Dose: Not Given Silver Sulfadiazine (Silvadene -) 1 applic TP DAILY [facility] Last Admin: 12/25/17 09:21 Dose: 1 applic Sodium Thiosulfate (Sodium Thiosulfate) 25 gm IVPB MoWeFr@0800 [facility] Last Admin: 12/23/17 15:30 Dose: 25 gm Allergies: Allergies Allergy/AdvReac Type Severity Reaction Status Date / Time adhesive tape Allergy Severe SKIN TEAR Verified 12/21/17 22:39 amoxicillin trihydrate AdvReac Severe DIARRHEA Verified 12/21/17 22:39 [From Augmentin] potassium clavulanate AdvReac Severe DIARRHEA Verified 12/21/17 22:39 [From Augmentin] Does patient have pain?: Yes Pain Location Body Site: Leg (Pain level was described as a 9. While interviewing her she cringed in severe pain.) Pain Description: Sharp, Acute Current Medical Exam-Psy Orientation: Time, Person, Place Immediate Term Memory: 11/26 Expressive: Coherent Receptive: Age Appropriate Comprehension of Spoken Words Hallucinations: Visual (She sees a shadow and becomes frightened by what she sees.) Thought Process: Intact Depression: Severe Hopelessness: Yes Loss of Interest: Yes Danger to Self and Others: No Sleep: Poorly Serial Sevens Intact: No Repeats 3 words told earlier: 2/3 Support System: None Problem List - Problem (1) Depression Code(s): F32.9 - MAJOR DEPRESSIVE DISORDER, SINGLE EPISODE, UNSPECIFIED (2) Severe major depression Code(s): F32.2 - MAJOR DEPRESSV DISORD, SINGLE EPSD, SEV W/O PSYCH FEATURES (3) Severe anxiety about hospitalization Code(s): F40.232 - FEAR OF OTHER MEDICAL CARE Assessment/Plan The patient was experiencing severe pain, depression and anxiety. Due to the pain in particular, she was not receptive to psychological intervention. She was not up to sharing too much about her present experiences due to her physical discomfort. If she decides to have a psychologist return and provided therapy, feel free to contact me or one of my colleagues. Thank you for your referral.
--- NOTE | 2017-12-26 10:59 | PN ---
Progress Note (short form) - Note Progress Note: pt seen/ examined mood depressed pain issues dose of oxycodone was decreased yesterday per pt/ daughter request denies cp. tachycardic was complained of sob earlier-- cxr - ordered pulmonary consult also noted/ appreciated had bowel movement anxiety + - wants xanax Vital Signs Temp 97.7 F 12/26/17 06:00 Pulse 118 H 12/26/17 06:00 Resp 22 12/26/17 06:00 BP 103/52 12/26/17 06:00 Pulse Ox 95 12/25/17 21:00 Intake & Output 12/25/17 12/25/17 12/26/17 11:59 23:59 11:59 Intake Total 120 Balance 120 Weight 190 lb Intake: Oral 120 Other: Voiding Method Incontinent Bowel Movement No Yes Yes # Bowel Movements 1 Weight Measurement Method Built in [facility] Active Medications Albuterol/Ipratropium (Duoneb -) 1 amp NEB Q6H PRN PRN Reason: SOB/WHEEZING Last Admin: 12/25/17 21:49 Dose: 1 amp Amino Acids (Prosource No Carb Liquid Pkt) 30 ml PO BID@0800,1730 [facility] Last Admin: 12/26/17 09:16 Dose: Not Given Apixaban (Eliquis -) 2.5 mg PO BID [facility] Last Admin: 12/26/17 09:26 Dose: 2.5 mg Aspirin (Asa -) 81 mg PO DAILY [facility] Last Admin: 12/26/17 09:26 Dose: 81 mg Atorvastatin Calcium (Lipitor -) 80 mg PO HS [facility] Last Admin: 12/25/17 21:25 Dose: 80 mg Bisacodyl (Dulcolax -) 10 mg PO DAILY PRN PRN Reason: CONSTIPATION Last Admin: 12/25/17 09:19 Dose: 10 mg Escitalopram Oxalate (Lexapro -) 10 mg PO DAILY [facility] Guaifenesin (Robitussin Dm -) 10 ml PO Q6H PRN PRN Reason: COUGH Last Admin: 12/25/17 21:26 Dose: 10 ml Insulin Aspart (Novolog Vial Sliding Scale -) 1 vial SQ ACHS [facility] PRN Reason: Protocol Last Admin: 12/26/17 06:23 Dose: Not Given Levothyroxine Sodium 112 mcg/ (Levothyroxine Sodium 25 mcg) 137 mcg PO DAILY@ 0700 [facility] Last Admin: 12/26/17 06:22 Dose: 137 mcg Lidocaine (Lidoderm Patch -) 1 patch TP DAILY [facility] Last Admin: 12/25/17 09:19 Dose: Not Given Metoprolol Tartrate (Lopressor -) 12.5 mg PO DAILY [facility] Last Admin: 12/26/17 09:26 Dose: 12.5 mg Miscellaneous (Lidoderm Patch Removal) 1 each MC DAILY@2200 [facility] Last Admin: 12/25/17 21:27 Dose: Not Given Nystatin (Mycostatin Cream -) 1 applic TP DAILY [facility] Last Admin: 12/26/17 09:26 Dose: 1 applic Oxycodone HCl (Roxicodone -) 5 mg PO Q6H PRN PRN Reason: PAIN LEVEL 6-10 Last Admin: 12/25/17 21:26 Dose: 5 mg Pantoprazole Sodium (Protonix -) 40 mg PO DAILY [facility] Last Admin: 12/26/17 09:26 Dose: 40 mg Senna (Senna -) 1 tab PO DAILY [facility] Last Admin: 12/26/17 09:26 Dose: Not Given Sevelamer Carbonate (Renvela -) 1,600 mg PO TIDCM [facility] Last Admin: 12/26/17 09:16 Dose: Not Given Silver Sulfadiazine (Silvadene -) 1 applic TP DAILY [facility] Last Admin: 12/25/17 09:21 Dose: 1 applic Sodium Thiosulfate (Sodium Thiosulfate) 25 gm IVPB MoWeFr@0800 [facility] Last Admin: 12/23/17 15:30 Dose: 25 gm CBC, BMP 12/24/17 06:40 Microbiology 12/21/17 23:30 Blood Culture - Preliminary Blood - Peripheral Venous NO GROWTH OBTAINED AFTER 96 HOURS, INCUBATION TO CONTINUE FOR 1 DAYS. 12/21/17 23:30 Blood Culture - Preliminary Blood - Peripheral Venous NO GROWTH OBTAINED AFTER 96 HOURS, INCUBATION TO CONTINUE FOR 1 DAYS. 12/22/17 00:52 Gram Stain - Final Leg - Left Lower Wound Culture - Final Pseudomonas Aeruginosa Yeast Like Organism cxr- pending Physical Exam Constitutional: Yes: anxious Eyes: Yes: Conjunctiva Clear Neck: Yes: Supple Cardiovascular: Yes: Pulse Irregular Respiratory: Yes: Diminished Gastrointestinal: Yes: Soft Extremities: Yes: Amputation, Other (left extremity tenderness)-- hand dressing + Neurological: Yes: Alert Psychiatric: Yes: Alert Assessment/Plan I believe she has extensive microvascular disease Continue present care pain control will consult pain management laxatives monitor bgm rheumatology consult pending has low grade fever also-- i/d to follow will start on xanax and lexapro I also spoke with Dr. Lawton-- going to see her. will follow Problem List - Problems (1) ESRD on hemodialysis Code(s): N18.6 - END STAGE RENAL DISEASE; Z99.2 - DEPENDENCE ON RENAL DIALYSIS (2) Left leg cellulitis Code(s): L03.116 - CELLULITIS OF LEFT LOWER LIMB (3) Leukocytosis Code(s): D72.829 - ELEVATED WHITE BLOOD CELL COUNT, UNSPECIFIED (4) Status post transmetatarsal amputation of left foot Code(s): Z89.432 - ACQUIRED ABSENCE OF LEFT FOOT (5) Atrial fibrillation Code(s): I48.91 - UNSPECIFIED ATRIAL FIBRILLATION Qualifiers: (6) CAD (coronary artery disease) Code(s): I25.10 - ATHSCL HEART DISEASE OF [place] CORONARY ARTERY W/O ANG PCTRS Qualifiers: Qualified Code(s): I25.10 - Atherosclerotic heart disease of [place] coronary artery without angina pectoris (7) DM type 2 causing complication Code(s): E11.8 - TYPE 2 DIABETES MELLITUS WITH UNSPECIFIED COMPLICATIONS Qualifiers: Qualified Code(s): E11.8 - Type 2 diabetes mellitus with unspecified complications; Z79.4 - senior care (current) use of insulin; Z79.4 - senior care ( current) use of insulin; Z79.4 - long term (current) use of insulin; Z79.4 - long term (current) use of insulin (8) Foot amputation status Code(s): Z89.439 - ACQUIRED ABSENCE OF UNSPECIFIED FOOT (9) Hypothyroidism Code(s): E03.9 - HYPOTHYROIDISM, UNSPECIFIED Qualifiers:
[2017-12-26] MEDS: ESCITALOPRAM OXALATE 10 MG TABLET (FP) PO SCH (11:20)
[2017-12-26] MEDS: LIDOCAINE 5% TOPICAL PATCH TP SCH (11:20)
--- NOTE | 2017-12-26 11:24 | EKG ---
Test Reason : Blood Pressure : / mmHG Vent. Rate : 132 BPM Atrial Rate : 111 BPM P-R Int : 000 ms QRS Dur : 090 ms QT Int : 316 ms P-R-T Axes : 000 065 -45 degrees QTc Int : 468 ms ATRIAL FIBRILLATION WITH RAPID VENTRICULAR RESPONSE LOW VOLTAGE QRS CANNOT RULE OUT ANTERIOR INFARCT (CITED ON OR BEFORE 02-SEP-2017) ABNORMAL ECG WHEN COMPARED WITH ECG OF 22-DEC-2017 00:32, T WAVE VARIATION Confirmed by AKASH VIZCAINO MD ([id number]) on 12/26/2017 11:24:31 AM Referred By: DERCIK VITAL Confirmed By:AKASH VIZCAINO MD
--- NOTE | 2017-12-26 11:56 | PN ---
Progress Note (short form) - Note Progress Note: 72 year old female admitted with severe pain, swelling and tenderness to touch involving the left thigh. 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 Known case of CAD, s/p GA, s/p PCI/ Stenting, ESRD-HD, h/o atrial fib, advanced AV block, s/p PPM, s/p rt. AKA, partial amputation of the left foot. Patient became SOB with oxygen desat. audible gurgling and arial fib with rapid ventricular response. No chest pain or discomfort. C/o wakness and fatique, no palpitations reported, awaiting [facility].Clinically appears to be in CHF. Active Medications Albuterol/Ipratropium (Duoneb -) 1 amp NEB Q6H PRN PRN Reason: SOB/WHEEZING Last Admin: 12/25/17 21:49 Dose: 1 amp Alprazolam (Xanax -) 0.5 mg PO Q8H PRN PRN Reason: ANXIETY Amino Acids (Prosource No Carb Liquid Pkt) 30 ml PO BID@0800,1730 [facility] Last Admin: 12/26/17 09:16 Dose: Not Given Apixaban (Eliquis -) 2.5 mg PO BID [facility] Last Admin: 12/26/17 09:26 Dose: 2.5 mg Aspirin (Asa -) 81 mg PO DAILY [facility] Last Admin: 12/26/17 09:26 Dose: 81 mg Atorvastatin Calcium (Lipitor -) 80 mg PO HS [facility] Last Admin: 12/25/17 21:25 Dose: 80 mg Bisacodyl (Dulcolax -) 10 mg PO DAILY PRN PRN Reason: CONSTIPATION Last Admin: 12/25/17 09:19 Dose: 10 mg Escitalopram Oxalate (Lexapro -) 10 mg PO DAILY [facility] Last Admin: 12/26/17 11:20 Dose: 10 mg Guaifenesin (Robitussin Dm -) 10 ml PO Q6H PRN PRN Reason: COUGH Last Admin: 12/25/17 21:26 Dose: 10 ml Insulin Aspart (Novolog Vial Sliding Scale -) 1 vial SQ ACHS [facility] PRN Reason: Protocol Last Admin: 12/26/17 06:23 Dose: Not Given Levothyroxine Sodium 112 mcg/ (Levothyroxine Sodium 25 mcg) 137 mcg PO DAILY@ 0700 [facility] Last Admin: 12/26/17 06:22 Dose: 137 mcg Lidocaine (Lidoderm Patch -) 1 patch TP DAILY [facility] Last Admin: 12/26/17 11:20 Dose: 1 patch Metoprolol Tartrate (Lopressor -) 12.5 mg PO DAILY [facility] Last Admin: 12/26/17 09:26 Dose: 12.5 mg Miscellaneous (Lidoderm Patch Removal) 1 each MC DAILY@2200 [facility] Last Admin: 12/25/17 21:27 Dose: Not Given Nystatin (Mycostatin Cream -) 1 applic TP DAILY [facility] Last Admin: 12/26/17 09:26 Dose: 1 applic Oxycodone HCl (Roxicodone -) 5 mg PO Q6H PRN PRN Reason: PAIN LEVEL 6-10 Last Admin: 12/25/17 21:26 Dose: 5 mg Pantoprazole Sodium (Protonix -) 40 mg PO DAILY [facility] Last Admin: 12/26/17 09:26 Dose: 40 mg Senna (Senna -) 1 tab PO DAILY [facility] Last Admin: 12/26/17 09:26 Dose: Not Given Sevelamer Carbonate (Renvela -) 1,600 mg PO TIDCM [facility] Last Admin: 12/26/17 11:30 Dose: Not Given Silver Sulfadiazine (Silvadene -) 1 applic TP DAILY [facility] Last Admin: 12/25/17 09:21 Dose: 1 applic Sodium Thiosulfate (Sodium Thiosulfate) 25 gm IVPB MoWeFr@0800 [facility] Last Admin: 12/23/17 15:30 Dose: 25 gm 72 year old female in respiratory distress, no pallor, cyanosis, no clubbing or jaundice.Progressive weight gain Last Vital Signs Temp Pulse Resp BP Pulse Ox 97.7 F 118 H 22 103/52 95 12/26/17 06:00 12/26/17 06:00 12/26/17 06:00 12/26/17 06:00 12/25/17 21:00 Intake & Output 12/23/17 12/24/17 12/25/17 12/26/17 23:59 23:59 23:59 23:59 Intake Total 736 250 120 Balance 736 250 120 Weight 189 lb 6.4 oz 193 lb 8 oz 190 lb NECK: Supple, no JVD, +ve HJR carotids 1-2+, no bruit appreciated. HEART: PMI in the 5th ICS, heart sounds obscured by breath sounds, no gallops heard. LUNGS: Coarse creps both lung banegas and expiratory wheesing ABDOMEN: Soft, nontender, no organomegaly. Firm lesions involving the left abdominal wall. No masses felt. EXT: AKA upto the rt. hip, partial amputation of the Lt. foot. Tenderness and swelling of the left thigh, 1+ Lt. pretibial edema. EK12/26/17 Atrial fib, with rapid ventricular response, low QRS voltage, poor R progression V1-V3, ASWMI cannot be excluded IMPRESSION: 1.Clinical presentation consistent with CHF NYHA Class III. 2.Atrial fib. with rapid ventricular response. 3.Recurring vasculitis, with new lesion involving the rt. index finger( after warfarin had been d/c'd). Etiology remains unclear. a).Possibily related to small vessel disease. b).Rheumatogical diseases including PAD need to be excluded. c).Other Vasculitides. d).Medications. 2.CAD, s/p PCI/Stenting. 3.IDDM with multi system involvement. 4.ESRD-HD. 5.LV systolic dysfunction. 6.Anemia, probably of chronic disease. 7S/p PPM for Advanced AV block. 8.Multiple amputations. 9.Dyslipidemia. RECOMMENDATIONS: 1.Transfer to monitored bed. 2.Emergent HD. 3.Bedside X-Ray chest stat. 4. Trop. levels. 5.Rheumatological evaluation. 6.Heme/Oncological consultation. 7.BETTE,RA factor. 8.ANCA. Prognosis: Critical. Time spent:45mins
[2017-12-26 12:37] LABS: HEMATOCRIT 33.6 % (32.4-45.2); HEMOGLOBIN 10.2 GM/dL (10.7-15.3); MCH 31.6 pg (25.7-33.7); MCHC 30.3 g/dl (32.0-36.0); MEAN CELL VOLUME 104.4 fl (80-96); MEAN PLT VOLUME 8.4 fl (7.5-11.1); PLATELET COUNT 414 K/MM3 (134-434); RBC 3.21 M/mm3 (3.60-5.2); RDW 23.1 % (11.6-15.6); WHITE BLOOD COUNT 15.2 K/mm3 (4.0-10.0)
--- NOTE | 2017-12-26 17:10 | PN ---
Progress Note (short form) - Note Progress Note: Renal follow up for ESRD on HD Pt seen and examined on dialysis BP stable, goal UF 2L pt reports some SOB earlier today no N/V/D, chest pain catheter with good flow Vital Signs Temperature 97.3 F L 12/26/17 12:30 Pulse Rate 110 H 12/26/17 16:14 Respiratory Rate 18 12/26/17 16:14 Blood Pressure 142/72 12/26/17 16:14 O2 Sat by Pulse Oximetry (%) 95 12/25/17 21:00 Intake & Output 12/23/17 12/24/17 12/25/17 12/26/17 23:59 23:59 23:59 23:59 Intake Total 736 250 120 Balance 736 250 120 Weight 85.91 kg 87.77 kg 86.183 kg NAD, awake and alert No JVD, Neck supple RRR, No M/R CTA soft, obese, + tender lesion on left side of abd LLE with diffuse tenderness CBC, BMP 12/26/17 06:30 12/24/17 06:40 Current Medications Albuterol/Ipratropium (Duoneb -) 1 amp NEB Q6H PRN PRN Reason: SOB/WHEEZING Last Admin: 12/25/17 21:49 Dose: 1 amp Alprazolam (Xanax -) 0.5 mg PO Q8H PRN PRN Reason: ANXIETY Amino Acids (Prosource No Carb Liquid Pkt) 30 ml PO BID@0800,1730 [facility] Last Admin: 12/26/17 09:16 Dose: Not Given Apixaban (Eliquis -) 2.5 mg PO BID [facility] Last Admin: 12/26/17 09:26 Dose: 2.5 mg Aspirin (Asa -) 81 mg PO DAILY [facility] Last Admin: 12/26/17 09:26 Dose: 81 mg Atorvastatin Calcium (Lipitor -) 80 mg PO HS [facility] Last Admin: 12/25/17 21:25 Dose: 80 mg Bisacodyl (Dulcolax -) 10 mg PO DAILY PRN PRN Reason: CONSTIPATION Last Admin: 12/25/17 09:19 Dose: 10 mg Escitalopram Oxalate (Lexapro -) 10 mg PO DAILY [facility] Last Admin: 12/26/17 11:20 Dose: 10 mg Guaifenesin (Robitussin Dm -) 10 ml PO Q6H PRN PRN Reason: COUGH Last Admin: 12/25/17 21:26 Dose: 10 ml Insulin Aspart (Novolog Vial Sliding Scale -) 1 vial SQ ACHS [facility] PRN Reason: Protocol Last Admin: 12/26/17 11:54 Dose: 2 units Levothyroxine Sodium 112 mcg/ (Levothyroxine Sodium 25 mcg) 137 mcg PO DAILY@ 0700 [facility] Last Admin: 12/26/17 06:22 Dose: 137 mcg Lidocaine (Lidoderm Patch -) 1 patch TP DAILY [facility] Last Admin: 12/26/17 11:20 Dose: 1 patch Metoprolol Tartrate (Lopressor -) 12.5 mg PO DAILY [facility] Last Admin: 12/26/17 09:26 Dose: 12.5 mg Miscellaneous (Lidoderm Patch Removal) 1 each MC DAILY@2200 [facility] Last Admin: 12/25/17 21:27 Dose: Not Given Nystatin (Mycostatin Cream -) 1 applic TP DAILY [facility] Last Admin: 12/26/17 09:26 Dose: 1 applic Oxycodone HCl (Roxicodone -) 5 mg PO Q6H PRN PRN Reason: PAIN LEVEL 6-10 Last Admin: 12/25/17 21:26 Dose: 5 mg Pantoprazole Sodium (Protonix -) 40 mg PO DAILY [facility] Last Admin: 12/26/17 09:26 Dose: 40 mg Senna (Senna -) 1 tab PO DAILY [facility] Last Admin: 12/26/17 09:26 Dose: Not Given Sevelamer Carbonate (Renvela -) 1,600 mg PO TIDCM [facility] Last Admin: 12/26/17 11:30 Dose: Not Given Silver Sulfadiazine (Silvadene -) 1 applic TP DAILY [facility] Last Admin: 12/25/17 09:21 Dose: 1 applic Sodium Thiosulfate (Sodium Thiosulfate) 25 gm IVPB MoWeFr@0800 [facility] Last Admin: 12/23/17 15:30 Dose: 25 gm 72 year old woman with PMhx of ESRD on HD, Hypertension, CAD, PVD s/p amputations, Afib on Eliquis, Calciphylaxis who presented with LE wound and admitted for Sepsis. #ESRD on HD #Sepsis with LE wound #Calciphaylaxis #CKD Related Anemia #Hypothyroidism tolerating dialysis well continue fluid restriction if CTA of the upper extremity is to be done tomorrow can do isolated UF following to prevent volume overload continue work up as per vascular Sx Cardiology eval noted, check BETTE continue sodium thiosulfate with HD continue renvela Check labs in [facility] Cruz DO
[2017-12-26] MEDS: SODIUM THIOSULFATE 12.5 GM/50 ML VIAL IVPB SCH (17:28)
[2017-12-26] MEDS ORDERED: PT OWN MED DRAWER 7, Y5N ONE (18:34)
[2017-12-26] MEDS: ALBUTEROL SO4 2.5/IPRATROPIUM 0.5 INH SOL 3 ML VIAL.NEB. NEB PRN (21:30)
[2017-12-26] MEDS: BISACODYL 5 MG TABLET.DR (FP) PO PRN (21:52)
[2017-12-26] MEDS: oxyCODONE HCL 5 MG TABLET PO PRN (21:53)
[2017-12-26] MEDS: ATORVASTATIN CA 80 MG TABLET (FP) PO SCH (21:53)
[2017-12-26] MEDS: LIDOCAINE PATCH REMOVAL MC SCH (21:54)
[2017-12-26] MEDS: guaiFENesin/D-METHORPHAN HB 10 ML UNIT-DOSE CUPS PO PRN (21:54)
[2017-12-26] MEDS: SILVER SULFADIAZINE 1% TOP CREAM 50 GM JAR TP SCH (21:55)
[2017-12-27] MEDS: ALBUTEROL SO4 2.5/IPRATROPIUM 0.5 INH SOL 3 ML VIAL.NEB. NEB PRN ×2 (04:21→21:20)
[2017-12-27] MEDS ORDERED: METOPROLOL TARTRATE 5 MG/5 ML VIAL IVPUSH ONE (05:19)
--- NOTE | 2017-12-27 05:23 | HOSP ---
Subjective - Review of Symptoms Events since last encounter: Hospitalist Encounter Notified by RN, that patient's HR 120s-140s EKG ordered stat Subjective: Arrived to bedside, patient is awake, alert and oriented, she denies chest pain , palpitations, and SOB at present EKG showed Afib with RVR 134 BP 94/53 Physical Examination Vital Signs: Vital Signs Temperature 98.5 F 12/27/17 02:00 Pulse Rate 107 H 12/27/17 02:00 Respiratory Rate 20 12/27/17 02:00 Blood Pressure 98/55 12/27/17 02:00 O2 Sat by Pulse Oximetry (%) 98 12/26/17 21:00 Labs: CBC, BMP 12/26/17 06:30 12/24/17 06:40
[2017-12-27] MEDS ORDERED: LEVOTHYROXINE NA 25 MCG TABLET (FP) ONE (05:52)
[2017-12-27] MEDS ORDERED: LEVOTHYROXINE NA 112 MCG TABLET (FP) ONE (05:52)
[2017-12-27] MEDS: LEVOTHYROXINE 112 MCG, LEVOTHYROXINE 25 MCG PO SCH (06:08)
[2017-12-27] MEDS: METOPROLOL TARTRATE 25 MG TABLET (FP) PO SCH ×2 (06:08→12:51)
[2017-12-27 07:34] LABS: CHLORIDE 102 mmol/L (98-107); POTASSIUM 3.6 mmol/L (3.5-5.1); SODIUM 142 mmol/L (136-145)
[2017-12-27 07:41] LABS: ANION GAP 10 (8-16); BLOOD UREA NITROGEN 23 mg/dL (7-18); CALCIUM 7.2 mg/dL (8.5-10.1); CO2 30 mmol/L (21-32); CREATININE 2.8 mg/dL (0.55-1.02); GLUCOSE,RANDOM 104 mg/dL (74-106); MAGNESIUM 1.8 mg/dL (1.8-2.4); PHOSPHOROUS 2.6 mg/dL (2.5-4.9)
[2017-12-27 07:46] LABS: HEMATOCRIT 31.4 % (32.4-45.2); HEMOGLOBIN 9.9 GM/dL (10.7-15.3); MCH 31.9 pg (25.7-33.7); MCHC 31.5 g/dl (32.0-36.0); MEAN CELL VOLUME 101.3 fl (80-96); MEAN PLT VOLUME 8.3 fl (7.5-11.1); PLATELET COUNT 335 K/MM3 (134-434); RDW 22.1 % (11.6-15.6); WHITE BLOOD COUNT 11.5 K/mm3 (4.0-10.0)
[2017-12-27] MEDS ORDERED: PT OWN MED DRAWER 7, Y5N ONE (08:49)
[2017-12-27] MEDS: SEVELAMER CARBONATE 800 MG TAB (FP) PO SCH ×3 (08:55→17:22)
[2017-12-27] MEDS: AMINO ACIDS/PROTEIN HYDROLYS 30 ML LIQUID.PKT PO SCH ×2 (08:55→17:22)
[2017-12-27] MEDS: INSULIN SLIDING SCALE (NOVOLOG) 1 VIAL SQ SCH ×4 (09:13→21:40)
[2017-12-27] MEDS: APIXABAN 2.5 MG TABLET PO SCH ×2 (09:13→21:39)
[2017-12-27] MEDS: SENNOSIDES 8.6MG TABLET (FP) PO SCH (09:13)
[2017-12-27] MEDS: PANTOPRAZOLE 40 MG TABLET (FP) PO SCH (09:13)
[2017-12-27] MEDS: ASPIRIN 81 MG CHEWABLE TABLETS PO SCH (09:13)
[2017-12-27] MEDS: ESCITALOPRAM OXALATE 10 MG TABLET (FP) PO SCH (09:13)
[2017-12-27] MEDS: LIDOCAINE 5% TOPICAL PATCH TP SCH (09:14)
[2017-12-27] MEDS: SILVER SULFADIAZINE 1% TOP CREAM 50 GM JAR TP SCH (09:15)
[2017-12-27] MEDS: NYSTATIN 100,000 UNIT/GM TOPICAL CREAM 15 GM TUBE TP SCH (09:15)
--- NOTE | 2017-12-27 11:05 | PN ---
Progress Note (short form) - Note Progress Note: 72 year old female admitted with severe pain, swelling and tenderness to touch involving the left thigh. 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 Known case of CAD, s/p UT, s/p PCI/ Stenting, ESRD-HD, h/o atrial fib, advanced AV block, s/p PPM, s/p rt. AKA, partial amputation of the left foot. Patient following dialysis yesterday feels better, minimal SOB, decrease in heart rate, No chest pain or discomfort. Active Medications Generic Name Dose Route Start Last Admin Trade Name Freq PRN Reason Stop Dose Admin Albuterol/Ipratropium 1 amp 12/25/17 15:46 12/27/17 04:21 Duoneb - NEB 1 amp Q6H PRN Administration SOB/WHEEZING Alprazolam 0.5 mg 12/26/17 10:59 Xanax - PO Q8H PRN ANXIETY Amino Acids 30 ml 12/22/17 08:00 12/27/17 08:55 Prosource No Carb Liquid Pkt PO 30 ml BID@0800,1730 YOAN Administration Apixaban 2.5 mg 12/24/17 11:15 12/27/17 09:13 Eliquis - PO 2.5 mg BID YOAN Administration Aspirin 81 mg 12/22/17 10:00 12/27/17 09:13 Asa - PO 81 mg DAILY YOAN Administration Atorvastatin Calcium 80 mg 12/25/17 22:00 12/26/17 21:53 Lipitor - PO 80 mg HS YOAN Administration Bisacodyl 10 mg 12/24/17 11:15 12/26/17 21:52 Dulcolax - PO 10 mg DAILY PRN Administration CONSTIPATION Escitalopram Oxalate 10 mg 12/26/17 11:00 12/27/17 09:13 Lexapro - PO 10 mg DAILY YOAN Administration Guaifenesin 10 ml 12/23/17 17:34 12/26/17 21:54 Robitussin Dm - PO 10 ml Q6H PRN Administration COUGH Insulin Aspart 1 vial 12/22/17 07:00 12/27/17 09:13 Novolog Vial Sliding Scale - SQ Not Given ACHS YOAN Protocol Levothyroxine Sodium 112 mcg/ 137 mcg 12/25/17 07:00 12/27/17 06:08 Levothyroxine Sodium 25 mcg PO 137 mcg DAILY@0700 YOAN Administration Lidocaine 1 patch 12/24/17 12:30 12/27/17 09:14 Lidoderm Patch - TP 1 patch DAILY YOAN Administration Metoprolol Tartrate 12.5 mg 12/22/17 10:00 12/27/17 06:08 Lopressor - PO 12.5 mg DAILY YOAN Administration Miscellaneous 1 each 12/24/17 22:00 12/26/17 21:54 Lidoderm Patch Removal MC 1 each DAILY@2200 YOAN Administration Nystatin 1 applic 12/22/17 10:00 12/27/17 09:15 Mycostatin Cream - TP 1 applic DAILY YOAN Administration Oxycodone HCl 5 mg 12/25/17 15:45 12/26/17 21:53 Roxicodone - PO 5 mg Q6H PRN Administration PAIN LEVEL 6-10 Pantoprazole Sodium 40 mg 12/22/17 10:00 12/27/17 09:13 Protonix - PO 40 mg DAILY YOAN Administration Senna 1 tab 12/22/17 10:00 12/27/17 09:13 Senna - PO 1 tab DAILY YOAN Administration Sevelamer Carbonate 1,600 mg 12/22/17 17:30 12/27/17 08:55 Renvela - PO 1,600 mg TIDCM YOAN Administration Silver Sulfadiazine 1 applic 12/22/17 10:00 12/27/17 09:15 Silvadene - TP 1 applic DAILY YOAN Administration Sodium Thiosulfate 25 gm 12/23/17 08:00 12/26/17 17:28 Sodium Thiosulfate IVPB 25 gm MoWeFr@0800 YOAN Administration 72 year old female in respiratory distress, pallor +, nocyanosis, no clubbing or jaundice. Last Vital Signs Temp Pulse Resp BP Pulse Ox 98.4 F 109 H 18 118/69 98 12/27/17 08:00 12/27/17 08:00 12/27/17 08:59 12/27/17 08:00 12/27/17 08:59 Intake & Output 12/24/17 12/25/17 12/26/17 12/27/17 23:59 23:59 23:59 23:59 Intake Total 250 120 0 Balance 250 120 0 Weight 193 lb 8 oz 190 lb NECK: Supple, no JVD, +ve HJR carotids 1-2+, no bruit appreciated. HEART: PMI in the 5th ICS, gradeI/ LINDA 2nd Rt. ICS, no gallops. LUNGS: Creps Rt, posterior lung field, fine creps Lt. base. ABDOMEN: Soft, nontender, no organomegaly. Firm lesions involving the left abdominal wall. No masses felt. EXT: AKA upto the rt. hip, partial amputation of the Lt. foot. Tenderness and swelling of the left thigh persists, 1+ Lt. pretibial edema. Rhythm strip: Atrial fib, with rapid vent, response, short(nonsustained) run of wide complex tachycardia CBC, BMP 12/27/17 05:35 12/27/17 05:35 IMPRESSION: 1.CHF, Resolving 2.Atrial fib. with rapid ventricular response. 3.Recurring vasculitis, with new lesion involving the rt. index finger( after warfarin had been d/c'd). Etiology remains unclear. a).Possibily related to small vessel disease. b).Rheumatogical diseases including PAD need to be excluded. c).Other Vasculitides. d).Medications. 2.CAD, s/p PCI/Stenting. 3.IDDM with multi system involvement. 4.ESRD-HD. 5.LV systolic dysfunction. 6.Anemia, probably of chronic disease. 7S/p PPM for Advanced AV block. 8.Multiple amputations. 9.Dyslipidemia. 10.Reddness,tendernes and swelling of the Lt. lateral calf,cellulitis needs exclusion, RECOMMENDATIONS: 1.ID revaulation. 2.Rheumatological evaluation. 3.Heme/Oncological consultation. 4.BETTE,RA factor. 5.ANCA.
--- NOTE | 2017-12-27 11:42 | EKG ---
Test Reason : Blood Pressure : / mmHG Vent. Rate : 134 BPM Atrial Rate : 125 BPM P-R Int : 000 ms QRS Dur : 090 ms QT Int : 326 ms P-R-T Axes : 000 081 220 degrees QTc Int : 486 ms ATRIAL FIBRILLATION WITH RAPID VENTRICULAR RESPONSE LOW VOLTAGE QRS ABNORMAL ECG Confirmed by Richard Obregon MD ([id number]) on 12/27/2017 11:41:43 AM Referred By: VIKTORIYA VITALE Confirmed By:Richard Obregon MD
[2017-12-27 12:17] LABS: ANISOCYTOSIS 2+; MACROCYTOSIS 1+; PLATELET ESTIMATE ADEQUATE
--- NOTE | 2017-12-27 12:25 | PN ---
Progress Note (short form) - Note Progress Note: PULMONARY Heart rates variable. Still some chest congestion and shortness of breath. + nonproductive cough. No fevers. Last Vital Signs Temp Pulse Resp BP Pulse Ox 98.4 F 109 H 18 118/69 98 12/27/17 08:00 12/27/17 08:00 12/27/17 08:59 12/27/17 08:00 12/27/17 08:59 Gen: mildly tachypneic at rest Heart: irregular Lung: bilateral rhonchi Abd: soft, nontender Ext: + edema, R AKA CBC, BMP 12/27/17 05:35 12/27/17 05:35 Active Medications Albuterol/Ipratropium (Duoneb -) 1 amp NEB Q6H PRN PRN Reason: SOB/WHEEZING Last Admin: 12/27/17 04:21 Dose: 1 amp Alprazolam (Xanax -) 0.5 mg PO Q8H PRN PRN Reason: ANXIETY Amino Acids (Prosource No Carb Liquid Pkt) 30 ml PO BID@0800,1730 [facility] Last Admin: 12/27/17 08:55 Dose: 30 ml Apixaban (Eliquis -) 2.5 mg PO BID [facility] Last Admin: 12/27/17 09:13 Dose: 2.5 mg Aspirin (Asa -) 81 mg PO DAILY [facility] Last Admin: 12/27/17 09:13 Dose: 81 mg Atorvastatin Calcium (Lipitor -) 80 mg PO HS [facility] Last Admin: 12/26/17 21:53 Dose: 80 mg Bisacodyl (Dulcolax -) 10 mg PO DAILY PRN PRN Reason: CONSTIPATION Last Admin: 12/26/17 21:52 Dose: 10 mg Escitalopram Oxalate (Lexapro -) 10 mg PO DAILY [facility] Last Admin: 12/27/17 09:13 Dose: 10 mg Guaifenesin (Robitussin Dm -) 10 ml PO Q6H PRN PRN Reason: COUGH Last Admin: 12/26/17 21:54 Dose: 10 ml Sodium Chloride (Normal Saline -) 250 mls @ 3,000 mls/hr IV PRN PRN PRN Reason: Hypotension during Dialysis Stop: 12/28/17 12:23 Insulin Aspart (Novolog Vial Sliding Scale -) 1 vial SQ ACHS [facility] PRN Reason: Protocol Last Admin: 12/27/17 09:13 Dose: Not Given Levothyroxine Sodium 112 mcg/ (Levothyroxine Sodium 25 mcg) 137 mcg PO DAILY@ 0700 [facility] Last Admin: 12/27/17 06:08 Dose: 137 mcg Lidocaine (Lidoderm Patch -) 1 patch TP DAILY [facility] Last Admin: 12/27/17 09:14 Dose: 1 patch Metoprolol Tartrate (Lopressor -) 12.5 mg PO DAILY [facility] Last Admin: 12/27/17 06:08 Dose: 12.5 mg Miscellaneous (Lidoderm Patch Removal) 1 each MC DAILY@2200 [facility] Last Admin: 12/26/17 21:54 Dose: 1 each Nystatin (Mycostatin Cream -) 1 applic TP DAILY [facility] Last Admin: 12/27/17 09:15 Dose: 1 applic Oxycodone HCl (Roxicodone -) 5 mg PO Q6H PRN PRN Reason: PAIN LEVEL 6-10 Last Admin: 12/26/17 21:53 Dose: 5 mg Pantoprazole Sodium (Protonix -) 40 mg PO DAILY [facility] Last Admin: 12/27/17 09:13 Dose: 40 mg Senna (Senna -) 1 tab PO DAILY [facility] Last Admin: 12/27/17 09:13 Dose: 1 tab Sevelamer Carbonate (Renvela -) 1,600 mg PO TIDCM [facility] Last Admin: 12/27/17 08:55 Dose: 1,600 mg Silver Sulfadiazine (Silvadene -) 1 applic TP DAILY [facility] Last Admin: 12/27/17 09:15 Dose: 1 applic Sodium Thiosulfate (Sodium Thiosulfate) 25 gm IVPB MoWeFr@0800 [facility] Last Admin: 12/26/17 17:28 Dose: 25 gm A/P Atrial Fibrillation with RVR r/o Sepsis ESRD on HD PAD CAD HTN DM Hyperlipidemia - monitoring off antibiotics - f/u cultures - monitor fever curve, WBC trend - HD per renal - rate control - continue anticoagulation - wound care - continue telemetry monitoring
--- NOTE | 2017-12-27 13:01 | PN ---
Progress Note (short form) - Note Progress Note: patient seen and examined. Events noted In telemetry now--due to rapid A. fib just came back from CT scan--CTA of upper extremity was done going to be dialyzed Later today Reports pain is There Patient and patient's daughter who is at bedside--- comfortable with current dose of medication All follow-ups noted Vital Signs Temp 98.4 F 12/27/17 08:00 Pulse 109 H 12/27/17 08:00 Resp 18 12/27/17 08:59 BP 118/69 12/27/17 08:00 Pulse Ox 98 12/27/17 08:59 Intake & Output 12/26/17 12/27/17 12/27/17 23:59 11:59 23:59 Intake Total 0 0 Balance 0 0 Intake: IV 0 0 PICC LINE 0 0 Other: Voiding Method Diaper Diaper Diaper Bowel Movement Yes Active Medications Albuterol/Ipratropium (Duoneb -) 1 amp NEB Q6H PRN PRN Reason: SOB/WHEEZING Last Admin: 12/27/17 04:21 Dose: 1 amp Alprazolam (Xanax -) 0.5 mg PO Q8H PRN PRN Reason: ANXIETY Amino Acids (Prosource No Carb Liquid Pkt) 30 ml PO BID@0800,1730 [facility] Last Admin: 12/27/17 08:55 Dose: 30 ml Apixaban (Eliquis -) 2.5 mg PO BID [facility] Last Admin: 12/27/17 09:13 Dose: 2.5 mg Aspirin (Asa -) 81 mg PO DAILY [facility] Last Admin: 12/27/17 09:13 Dose: 81 mg Atorvastatin Calcium (Lipitor -) 80 mg PO HS [facility] Last Admin: 12/26/17 21:53 Dose: 80 mg Bisacodyl (Dulcolax -) 10 mg PO DAILY PRN PRN Reason: CONSTIPATION Last Admin: 12/26/17 21:52 Dose: 10 mg Escitalopram Oxalate (Lexapro -) 10 mg PO DAILY [facility] Last Admin: 12/27/17 09:13 Dose: 10 mg Guaifenesin (Robitussin Dm -) 10 ml PO Q6H PRN PRN Reason: COUGH Last Admin: 12/26/17 21:54 Dose: 10 ml Sodium Chloride (Normal Saline -) 250 mls @ 3,000 mls/hr IV PRN PRN PRN Reason: Hypotension during Dialysis Stop: 12/28/17 12:23 Insulin Aspart (Novolog Vial Sliding Scale -) 1 vial SQ ACHS [facility] PRN Reason: Protocol Last Admin: 12/27/17 12:54 Dose: 2 units Levothyroxine Sodium 112 mcg/ (Levothyroxine Sodium 25 mcg) 137 mcg PO DAILY@ 0700 [facility] Last Admin: 12/27/17 06:08 Dose: 137 mcg Lidocaine (Lidoderm Patch -) 1 patch TP DAILY [facility] Last Admin: 12/27/17 09:14 Dose: 1 patch Metoprolol Tartrate (Lopressor -) 12.5 mg PO DAILY [facility] Last Admin: 12/27/17 12:51 Dose: 12.5 mg Miscellaneous (Lidoderm Patch Removal) 1 each MC DAILY@2200 [facility] Last Admin: 12/26/17 21:54 Dose: 1 each Nystatin (Mycostatin Cream -) 1 applic TP DAILY [facility] Last Admin: 12/27/17 09:15 Dose: 1 applic Oxycodone HCl (Roxicodone -) 5 mg PO Q6H PRN PRN Reason: PAIN LEVEL 6-10 Last Admin: 12/26/17 21:53 Dose: 5 mg Pantoprazole Sodium (Protonix -) 40 mg PO DAILY [facility] Last Admin: 12/27/17 09:13 Dose: 40 mg Senna (Senna -) 1 tab PO DAILY [facility] Last Admin: 12/27/17 09:13 Dose: 1 tab Sevelamer Carbonate (Renvela -) 1,600 mg PO TIDCM [facility] Last Admin: 12/27/17 12:54 Dose: 1,600 mg Silver Sulfadiazine (Silvadene -) 1 applic TP DAILY [facility] Last Admin: 12/27/17 09:15 Dose: 1 applic Sodium Thiosulfate (Sodium Thiosulfate) 25 gm IVPB MoWeFr@0800 [facility] Last Admin: 12/26/17 17:28 Dose: 25 gm CBC, BMP 12/27/17 05:35 12/27/17 05:35 cxr - reviewed Microbiology 12/21/17 23:30 Blood Culture - Final Blood - Peripheral Venous NO GROWTH AFTER 5 DAYS INCUBATION 12/21/17 23:30 Blood Culture - Final Blood - Peripheral Venous NO GROWTH AFTER 5 DAYS INCUBATION physical exam Gen: awake/ no distress. Heart: s1, s2 irregular Lung: diminished at bases Abd: soft, Ext: dressing + A/P Atrial Fibrillation --with rapid ventricular response----transferred to telemetry coronary artery disease ESRD on HD peripheral artery disease diabetes Depression - meds reviewed Continue present care Monitor blood sugar -Discussed in detail with the patient's daughter again. We will follow Problem List - Problems (1) ESRD on hemodialysis Code(s): N18.6 - END STAGE RENAL DISEASE; Z99.2 - DEPENDENCE ON RENAL DIALYSIS (2) Left leg cellulitis Code(s): L03.116 - CELLULITIS OF LEFT LOWER LIMB (3) Leukocytosis Code(s): D72.829 - ELEVATED WHITE BLOOD CELL COUNT, UNSPECIFIED (4) Status post transmetatarsal amputation of left foot Code(s): Z89.432 - ACQUIRED ABSENCE OF LEFT FOOT (5) Atrial fibrillation Code(s): I48.91 - UNSPECIFIED ATRIAL FIBRILLATION Qualifiers: (6) CAD (coronary artery disease) Code(s): I25.10 - ATHSCL HEART DISEASE OF [place] CORONARY ARTERY W/O ANG PCTRS Qualifiers: Coronary Disease-Associated Artery/Lesion type: [place] artery [place] vs. transplanted heart: [place] heart Associated angina: without angina Qualified Code(s): I25.10 - Atherosclerotic heart disease of [place] coronary artery without angina pectoris (7) DM type 2 causing complication Code(s): E11.8 - TYPE 2 DIABETES MELLITUS WITH UNSPECIFIED COMPLICATIONS Qualifiers: Diabetes mellitus regional intermodal truck driver insulin use: with regional intermodal truck driver use Qualified Code( s): E11.8 - Type 2 diabetes mellitus with unspecified complications; Z79.4 - longterm (current) use of insulin; Z79.4 - longterm (current) use of insulin; Z79.4 - longterm (current) use of insulin; 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
[2017-12-27] MEDS ORDERED: SODIUM CHLORIDE 250 ML IV PRN (13:14)
--- NOTE | 2017-12-27 13:50 | PN ---
Progress Note (short form) - Note Progress Note: Renal follow up for ESRD on HD Pt seen and examined oat the bedside reports pain in LE no sob, chest pain had episode or rapid afib this am for CTA of upper extremity this am Vital Signs Temperature 97.7 F 12/27/17 13:36 Pulse Rate 108 H 12/27/17 13:36 Respiratory Rate 18 12/27/17 13:36 Blood Pressure 122/96 12/27/17 13:36 O2 Sat by Pulse Oximetry (%) 98 12/27/17 08:59 Intake & Output 12/24/17 12/25/17 12/26/17 12/27/17 23:59 23:59 23:59 23:59 Intake Total 250 120 250 Balance 250 120 250 Weight 87.77 kg 86.183 kg NAD, awake and alert No JVD, Neck supple RRR, No M/R CTA soft, obese, + tender lesion on left side of abd LLE with diffuse tenderness, no cyanosis or clubbing CBC, BMP 12/27/17 05:35 12/27/17 05:35 Current Medications Albuterol/Ipratropium (Duoneb -) 1 amp NEB Q6H PRN PRN Reason: SOB/WHEEZING Last Admin: 12/27/17 04:21 Dose: 1 amp Alprazolam (Xanax -) 0.5 mg PO Q8H PRN PRN Reason: ANXIETY Amino Acids (Prosource No Carb Liquid Pkt) 30 ml PO BID@0800,1730 [facility] Last Admin: 12/27/17 08:55 Dose: 30 ml Apixaban (Eliquis -) 2.5 mg PO BID [facility] Last Admin: 12/27/17 09:13 Dose: 2.5 mg Aspirin (Asa -) 81 mg PO DAILY [facility] Last Admin: 12/27/17 09:13 Dose: 81 mg Atorvastatin Calcium (Lipitor -) 80 mg PO HS [facility] Last Admin: 12/26/17 21:53 Dose: 80 mg Bisacodyl (Dulcolax -) 10 mg PO DAILY PRN PRN Reason: CONSTIPATION Last Admin: 12/26/17 21:52 Dose: 10 mg Escitalopram Oxalate (Lexapro -) 10 mg PO DAILY [facility] Last Admin: 12/27/17 09:13 Dose: 10 mg Guaifenesin (Robitussin Dm -) 10 ml PO Q6H PRN PRN Reason: COUGH Last Admin: 12/26/17 21:54 Dose: 10 ml Sodium Chloride (Normal Saline -) 250 mls @ 3,000 mls/hr IV PRN PRN PRN Reason: Hypotension during Dialysis Stop: 12/28/17 13:13 Insulin Aspart (Novolog Vial Sliding Scale -) 1 vial SQ ACHS [facility] PRN Reason: Protocol Last Admin: 12/27/17 12:54 Dose: 2 units Levothyroxine Sodium 112 mcg/ (Levothyroxine Sodium 25 mcg) 137 mcg PO DAILY@ 0700 [facility] Last Admin: 12/27/17 06:08 Dose: 137 mcg Lidocaine (Lidoderm Patch -) 1 patch TP DAILY [facility] Last Admin: 12/27/17 09:14 Dose: 1 patch Metoprolol Tartrate (Lopressor -) 12.5 mg PO DAILY [facility] Last Admin: 12/27/17 12:51 Dose: 12.5 mg Miscellaneous (Lidoderm Patch Removal) 1 each MC DAILY@2200 [facility] Last Admin: 12/26/17 21:54 Dose: 1 each Nystatin (Mycostatin Cream -) 1 applic TP DAILY [facility] Last Admin: 12/27/17 09:15 Dose: 1 applic Oxycodone HCl (Roxicodone -) 5 mg PO Q6H PRN PRN Reason: PAIN LEVEL 6-10 Last Admin: 12/26/17 21:53 Dose: 5 mg Pantoprazole Sodium (Protonix -) 40 mg PO DAILY [facility] Last Admin: 12/27/17 09:13 Dose: 40 mg Senna (Senna -) 1 tab PO DAILY [facility] Last Admin: 12/27/17 09:13 Dose: 1 tab Sevelamer Carbonate (Renvela -) 1,600 mg PO TIDCM [facility] Last Admin: 12/27/17 12:54 Dose: 1,600 mg Silver Sulfadiazine (Silvadene -) 1 applic TP DAILY [facility] Last Admin: 12/27/17 09:15 Dose: 1 applic Sodium Thiosulfate (Sodium Thiosulfate) 25 gm IVPB MoWeFr@0800 [facility] Last Admin: 12/26/17 17:28 Dose: 25 gm 72 year old woman with PMhx of ESRD on HD, Hypertension, CAD, PVD s/p amputations, Afib on Eliquis, Calciphylaxis who presented with LE wound and admitted for Sepsis. #ESRD on HD #Leukocytoisis #Calciphaylaxis #CKD Related Anemia #Hypothyroidism for CTA of upper extremity this am, followed by dialysis with UF as tolerated continue to trend WBC off Abx Vascular follow up continue sodium thiosulfate and Renvela will give [place] with HD Wan Cruz DO
[2017-12-27] MEDS: ALPRAZolam 0.25 MG TABLET PO PRN ×2 (14:14→21:45)
--- NOTE | 2017-12-27 17:32 | PN ---
Progress Note, Physician Chief Complaint: left hand dry gangrene History of Present Illness: 72 yo RHD female from [facility] with PMH HTN, DM, HLD, PAD, afib (on Eliquis 2.5mg PO BID), pacemaker/defibrillator, ESRD (M, W, F dialysis; L chest tunnel cath. Anuric), R ATK amputation, L foot amputation, L hand 2nd-4th digit amputation (03/12), who presents to the ED c/o LLE pain over the past two days. She has completed a 6-8 week course of these abx through a R PICC line for osteomyelitis of her L hand 2nd-4th digits. No acute events overnight, She is depressed and tearful regarding her condition. Today she had CTA upper extremties. - Current Medication List Current Medications: Active Medications Albuterol/Ipratropium (Duoneb -) 1 amp NEB Q6H PRN PRN Reason: SOB/WHEEZING Last Admin: 12/27/17 04:21 Dose: 1 amp Alprazolam (Xanax -) 0.5 mg PO Q8H PRN PRN Reason: ANXIETY Last Admin: 12/27/17 14:14 Dose: 0.5 mg Amino Acids (Prosource No Carb Liquid Pkt) 30 ml PO BID@0800,1730 [facility] Last Admin: 12/27/17 17:22 Dose: 30 ml Apixaban (Eliquis -) 2.5 mg PO BID [facility] Last Admin: 12/27/17 09:13 Dose: 2.5 mg Aspirin (Asa -) 81 mg PO DAILY [facility] Last Admin: 12/27/17 09:13 Dose: 81 mg Atorvastatin Calcium (Lipitor -) 80 mg PO HS [facility] Last Admin: 12/26/17 21:53 Dose: 80 mg Bisacodyl (Dulcolax -) 10 mg PO DAILY PRN PRN Reason: CONSTIPATION Last Admin: 12/26/17 21:52 Dose: 10 mg Escitalopram Oxalate (Lexapro -) 10 mg PO DAILY [facility] Last Admin: 12/27/17 09:13 Dose: 10 mg Guaifenesin (Robitussin Dm -) 10 ml PO Q6H PRN PRN Reason: COUGH Last Admin: 12/26/17 21:54 Dose: 10 ml Heparin Sodium (Porcine) (Heparin -) 1,000 unit IVPUSH ONCE ONE Stop: 12/28/17 06:01 Sodium Chloride (Normal Saline -) 250 mls @ 3,000 mls/hr IV PRN PRN PRN Reason: Hypotension during Dialysis Stop: 12/28/17 13:13 Sodium Chloride (Normal Saline -) 250 mls @ 3,000 mls/hr IV PRN PRN PRN Reason: Hypotension during Dialysis Stop: 12/28/17 13:50 Insulin Aspart (Novolog Vial Sliding Scale -) 1 vial SQ ACHS [facility] PRN Reason: Protocol Last Admin: 12/27/17 16:49 Dose: 4 units Levothyroxine Sodium 112 mcg/ (Levothyroxine Sodium 25 mcg) 137 mcg PO DAILY@ 0700 [facility] Last Admin: 12/27/17 06:08 Dose: 137 mcg Lidocaine (Lidoderm Patch -) 1 patch TP DAILY [facility] Last Admin: 12/27/17 09:14 Dose: 1 patch Metoprolol Tartrate (Lopressor -) 12.5 mg PO DAILY [facility] Last Admin: 12/27/17 12:51 Dose: 12.5 mg Miscellaneous (Lidoderm Patch Removal) 1 each MC DAILY@2200 [facility] Last Admin: 12/26/17 21:54 Dose: 1 each Nystatin (Mycostatin Cream -) 1 applic TP DAILY [facility] Last Admin: 12/27/17 09:15 Dose: 1 applic Oxycodone HCl (Roxicodone -) 5 mg PO Q6H PRN PRN Reason: PAIN LEVEL 6-10 Last Admin: 12/26/17 21:53 Dose: 5 mg Pantoprazole Sodium (Protonix -) 40 mg PO DAILY [facility] Last Admin: 12/27/17 09:13 Dose: 40 mg Senna (Senna -) 1 tab PO DAILY [facility] Last Admin: 12/27/17 09:13 Dose: 1 tab Sevelamer Carbonate (Renvela -) 1,600 mg PO TIDCM [facility] Last Admin: 12/27/17 17:22 Dose: 1,600 mg Silver Sulfadiazine (Silvadene -) 1 applic TP DAILY [facility] Last Admin: 12/27/17 09:15 Dose: 1 applic Sodium Thiosulfate (Sodium Thiosulfate) 25 gm IVPB MoWeFr@0800 [facility] Last Admin: 12/26/17 17:28 Dose: 25 gm - Objective Vital Signs: Vital Signs Temperature 98.2 F 12/27/17 13:45 Pulse Rate 82 12/27/17 16:37 Respiratory Rate 18 12/27/17 16:37 Blood Pressure 99/35 12/27/17 16:37 O2 Sat by Pulse Oximetry (%) 98 12/27/17 08:59 Constitutional: Yes: No Distress, Calm, Obese Eyes: Yes: Conjunctiva Clear, EOM Intact HENT: Yes: Atraumatic, Normocephalic Neck: Yes: Supple, Trachea Midline Cardiovascular: Yes: Regular Rate and Rhythm, Pulse Irregular, S1, S2 Respiratory: Yes: Regular, CTA Bilaterally Gastrointestinal: Yes: Normal Bowel Sounds, Soft, Tenderness (left lateral abdominal wall edema) Genitourinary: No: CVA Tenderness - Left, CVA Tenderness - Right Extremities: Yes: Cyanosis. No: Cool Edema: LUE: 1+, RUE: 1+, LLE: 1+ Integumentary: No: Jaundice Neurological: Yes: Alert, Oriented Psychiatric: Yes: Alert, Oriented Labs: CBC, BMP 12/27/17 05:35 12/27/17 05:35 INR, PTT INR 2.23 (0.82-1.09) H 12/22/17 12:57 Problem List - Problems (1) Gangrene of hand Assessment/Plan: 72yo female MMP presents with [place] pain and ischemic changes LLE while on eloquis, known h/o PVD and amputation s/p left hand multi digit amputation with expanding ischemic changes both hands. Progressive microvascular disease is the likely cause of all recently noted changes. Appreciate vascular surgery assessment. Medical optimization Cardiac and Renal evaluation empiric IV antibiotics Vascular surgery evaluation appreciated CT Angiogram for upper extremities pending reading Dry dressing to left hand QOD as soiled Will follow Code(s): I96 - GANGRENE, NOT ELSEWHERE CLASSIFIED (2) ESRD on hemodialysis Code(s): N18.6 - END STAGE RENAL DISEASE; Z99.2 - DEPENDENCE ON RENAL DIALYSIS (3) History of ESBL Klebsiella pneumoniae infection Code(s): Z86.19 - PERSONAL HISTORY OF OTHER INFECTIOUS AND PARASITIC DISEASES (4) Left leg cellulitis Code(s): L03.116 - CELLULITIS OF LEFT LOWER LIMB (5) Status post transmetatarsal amputation of left foot Code(s): Z89.432 - ACQUIRED ABSENCE OF LEFT FOOT (6) Unilateral AKA Code(s): Z89.619 - ACQUIRED ABSENCE OF UNSPECIFIED LEG ABOVE KNEE (7) Cellulitis and abscess of hand Code(s): L03.119 - CELLULITIS OF UNSPECIFIED PART OF LIMB; L02.519 - CUTANEOUS ABSCESS OF UNSPECIFIED HAND (8) Cellulitis of left hand Code(s): L03.114 - CELLULITIS OF LEFT UPPER LIMB (9) Suppurative tenosynovitis of flexor tendon of left hand Code(s): M65.142 - OTHER INFECTIVE (TENO)SYNOVITIS, LEFT HAND
[2017-12-27] MEDS: ATORVASTATIN CA 80 MG TABLET (FP) PO SCH (21:39)
[2017-12-27] MEDS: LIDOCAINE PATCH REMOVAL MC SCH (21:39)
[2017-12-28] MEDS ORDERED: LEVOTHYROXINE NA 112 MCG TABLET (FP) ONE (05:18)
[2017-12-28] MEDS ORDERED: LEVOTHYROXINE NA 25 MCG TABLET (FP) ONE (05:18)
[2017-12-28] MEDS: oxyCODONE HCL 5 MG TABLET PO PRN ×2 (05:41→10:22)
[2017-12-28] MEDS ORDERED: HEPARIN NA (PORCINE) 5,000 UNITS/ML 1ML VIAL IVPUSH ONE (06:00)
[2017-12-28] MEDS: LEVOTHYROXINE 112 MCG, LEVOTHYROXINE 25 MCG PO SCH (06:25)
[2017-12-28] MEDS ORDERED: SODIUM CHLORIDE 250 ML IV PRN (06:36)
[2017-12-28 06:39] LABS: HEMATOCRIT 30.1 % (32.4-45.2); HEMOGLOBIN 9.8 GM/dL (10.7-15.3); MCHC 32.5 g/dl (32.0-36.0); MEAN CELL VOLUME 101.6 fl (80-96); MEAN PLT VOLUME 8.2 fl (7.5-11.1); PLATELET COUNT 335 K/MM3 (134-434); RBC 2.96 M/mm3 (3.60-5.2); RDW 22.4 % (11.6-15.6); WHITE BLOOD COUNT 10.4 K/mm3 (4.0-10.0)
[2017-12-28] MEDS: INSULIN SLIDING SCALE (NOVOLOG) 1 VIAL SQ SCH ×4 (07:00→21:23)
[2017-12-28 08:33] LABS: ANION GAP 8 (8-16); BLOOD UREA NITROGEN 18 mg/dL (7-18); CALCIUM 7.2 mg/dL (8.5-10.1); CHLORIDE 103 mmol/L (98-107); CO2 33 mmol/L (21-32); CREATININE 2.4 mg/dL (0.55-1.02); GLUCOSE,RANDOM 120 mg/dL (74-106); PHOSPHOROUS 2.2 mg/dL (2.5-4.9); POTASSIUM 3.5 mmol/L (3.5-5.1); SODIUM 144 mmol/L (136-145)
[2017-12-28] MEDS ORDERED: PT OWN MED DRAWER 7, Y5N ONE ×3 (08:42→17:00)
[2017-12-28] MEDS: SODIUM THIOSULFATE 12.5 GM/50 ML VIAL IVPB SCH (09:07)
[2017-12-28] MEDS: NYSTATIN 100,000 UNIT/GM TOPICAL CREAM 15 GM TUBE TP SCH (10:00)
[2017-12-28] MEDS: SILVER SULFADIAZINE 1% TOP CREAM 50 GM JAR TP SCH (11:00)
--- NOTE | 2017-12-28 11:08 | PN ---
Progress Note (short form) - Note Progress Note: 72 year old female admitted with severe pain, swelling and tenderness to touch involving the left thigh. 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 Known case of CAD, s/p NC, s/p PCI/ Stenting, ESRD-HD, h/o atrial fib, advanced AV block, s/p PPM, s/p rt. AKA, partial amputation of the left foot. Patient has an cough and is unable to expectorate, still has left thigh swelling and tenderness Active Medications Generic Name Dose Route Start Last Admin Trade Name Freq PRN Reason Stop Dose Admin Albuterol/Ipratropium 1 amp 12/25/17 15:46 12/27/17 21:20 Duoneb - NEB 1 amp Q6H PRN Administration SOB/WHEEZING Alprazolam 0.5 mg 12/26/17 10:59 12/27/17 21:45 Xanax - PO 0.5 mg Q8H PRN Administration ANXIETY Amino Acids 30 ml 12/22/17 08:00 12/27/17 17:22 Prosource No Carb Liquid Pkt PO 30 ml BID@0800,1730 YOAN Administration Apixaban 2.5 mg 12/24/17 11:15 12/27/17 21:39 Eliquis - PO 2.5 mg BID YOAN Administration Aspirin 81 mg 12/22/17 10:00 12/27/17 09:13 Asa - PO 81 mg DAILY YOAN Administration Atorvastatin Calcium 80 mg 12/25/17 22:00 12/27/17 21:39 Lipitor - PO 80 mg HS YOAN Administration Bisacodyl 10 mg 12/24/17 11:15 12/26/17 21:52 Dulcolax - PO 10 mg DAILY PRN Administration CONSTIPATION Escitalopram Oxalate 10 mg 12/26/17 11:00 12/27/17 09:13 Lexapro - PO 10 mg DAILY YOAN Administration Guaifenesin 10 ml 12/23/17 17:34 12/26/17 21:54 Robitussin Dm - PO 10 ml Q6H PRN Administration COUGH Sodium Chloride 250 mls @ 3,000 mls/hr 12/27/17 13:14 Normal Saline - IV 12/28/17 13:13 PRN PRN Hypotension during Dialysis Insulin Aspart 1 vial 12/22/17 07:00 12/27/17 21:40 Novolog Vial Sliding Scale - SQ Not Given ACHS YOAN Protocol Levothyroxine Sodium 112 mcg/ 137 mcg 12/25/17 07:00 12/28/17 06:25 Levothyroxine Sodium 25 mcg PO 137 mcg DAILY@0700 YOAN Administration Lidocaine 1 patch 12/24/17 12:30 12/27/17 09:14 Lidoderm Patch - TP 1 patch DAILY YOAN Administration Metoprolol Tartrate 12.5 mg 12/22/17 10:00 12/27/17 12:51 Lopressor - PO 12.5 mg DAILY YOAN Administration Miscellaneous 1 each 12/24/17 22:00 12/27/17 21:39 Lidoderm Patch Removal MC 1 each DAILY@2200 YOAN Administration Nystatin 1 applic 12/22/17 10:00 12/27/17 09:15 Mycostatin Cream - TP 1 applic DAILY YOAN Administration Oxycodone HCl 5 mg 12/25/17 15:45 12/28/17 10:22 Roxicodone - PO 5 mg Q6H PRN Administration PAIN LEVEL 6-10 Pantoprazole Sodium 40 mg 12/22/17 10:00 12/27/17 09:13 Protonix - PO 40 mg DAILY YOAN Administration Senna 1 tab 12/22/17 10:00 12/27/17 09:13 Senna - PO 1 tab DAILY YOAN Administration Sevelamer Carbonate 1,600 mg 12/22/17 17:30 12/27/17 17:22 Renvela - PO 1,600 mg TIDCM YOAN Administration Silver Sulfadiazine 1 applic 12/22/17 10:00 12/27/17 09:15 Silvadene - TP 1 applic DAILY YOAN Administration Sodium Thiosulfate 25 gm 12/23/17 08:00 12/28/17 09:07 Sodium Thiosulfate IVPB 25 gm MoWeFr@0800 YOAN Administration 72 year old female in respiratory distress, pallor +, nocyanosis, no clubbing or jaundice. Last Vital Signs Temp Pulse Resp BP Pulse Ox 97.8 F 116 H 18 112/75 99 12/28/17 07:05 12/28/17 08:40 12/28/17 08:40 12/28/17 08:40 12/27/17 21:00 NECK: Supple, no JVD, +ve HJR carotids 1-2+, no bruit appreciated. HEART: PMI in the 5th ICS, gradeI/ LINDA 2nd Rt. ICS, no gallops. LUNGS: Creps Rt, posterior lung field, fine creps Lt. base. ABDOMEN: Soft, nontender, no organomegaly. Firm lesions involving the left abdominal wall. No masses felt. EXT: AKA, partial amputation of the Lt. foot. Tenderness and swelling of the left thigh persists, 1+ Lt. pretibial edema. CBCD WBC 10.4 K/mm3 (4.0-10.0) H 12/28/17 05:35 RBC 2.96 M/mm3 (3.60-5.2) L 12/28/17 05:35 Hgb 9.8 GM/dL (10.7-15.3) L 12/28/17 05:35 Hct 30.1 % (32.4-45.2) L 12/28/17 05:35 MCV 101.6 fl (80-96) H 12/28/17 05:35 MCHC 32.5 g/dl (32.0-36.0) 12/28/17 05:35 RDW 22.4 % (11.6-15.6) H 12/28/17 05:35 Plt Count 335 K/MM3 (134-434) 12/28/17 05:35 MPV 8.2 fl (7.5-11.1) 12/28/17 05:35 CMP Sodium 144 mmol/L (136-145) 12/28/17 07:10 Potassium 3.5 mmol/L (3.5-5.1) 12/28/17 07:10 Chloride 103 mmol/L (98-107) 12/28/17 07:10 Carbon Dioxide 33 mmol/L (21-32) H 12/28/17 07:10 Anion Gap 8 (8-16) 12/28/17 07:10 BUN 18 mg/dL (7-18) 12/28/17 07:10 Creatinine 2.4 mg/dL (0.55-1.02) H 12/28/17 07:10 Creat Clearance w eGFR 12.77 (>60) 12/23/17 06:30 Calcium 7.2 mg/dL (8.5-10.1) L 12/28/17 07:10 Total Bilirubin 0.3 mg/dL (0.2-1.0) 12/23/17 06:30 AST 7 U/L (15-37) L 12/23/17 06:30 ALT 14 U/L (12-78) 12/23/17 06:30 Alkaline Phosphatase 267 U/L (45-117) H 12/23/17 06:30 Total Protein 4.9 g/dl (6.4-8.2) L 12/23/17 06:30 Albumin 1.3 g/dl (3.4-5.0) L 12/23/17 06:30 IMPRESSION: 1.CHF, Resolving. 2.Atrial fib. with rapid ventricular response. 3.Recurring vasculitis, with new lesion involving the rt. index finger( after warfarin had been d/c'd). Etiology remains unclear. a).Possibily related to small vessel disease. b).Rheumatogical disease. c).Other Vasculitides. d).Medications. 2.CAD, s/p PCI/Stenting. 3.IDDM with multi system involvement. 4.ESRD-HD. 5.LV systolic dysfunction. 6.Anemia, probably of chronic disease. 7S/p PPM for Advanced AV block. 8.Multiple amputations. 9.Dyslipidemia. 10.Reddness,tendernes and swelling of the Lt. lateral calf,cellulitis needs exclusion, 11.Acute bronchitis needs exclusion. RECOMMENDATIONS: 1.ID revaulation. 2.Rheumatological evaluation. 3.Heme/Oncological consultation. 4.BETTE,RA factor. 5.ANCA. 6.close F/u of BMP.
[2017-12-28] MEDS: APIXABAN 2.5 MG TABLET PO SCH ×2 (11:10→21:21)
[2017-12-28] MEDS: ESCITALOPRAM OXALATE 10 MG TABLET (FP) PO SCH (11:10)
[2017-12-28] MEDS: ASPIRIN 81 MG CHEWABLE TABLETS PO SCH (11:10)
[2017-12-28] MEDS: AMINO ACIDS/PROTEIN HYDROLYS 30 ML LIQUID.PKT PO SCH ×2 (11:11→17:17)
[2017-12-28] MEDS: SEVELAMER CARBONATE 800 MG TAB (FP) PO SCH ×3 (11:11→16:56)
[2017-12-28] MEDS: LIDOCAINE 5% TOPICAL PATCH TP SCH (11:14)
[2017-12-28] MEDS: PANTOPRAZOLE 40 MG TABLET (FP) PO SCH (11:30)
[2017-12-28] MEDS: SENNOSIDES 8.6MG TABLET (FP) PO SCH (11:30)
[2017-12-28] MEDS ORDERED: INSULIN (NOVOLOG) ASPART 100 UNITS/ML 10ML VIAL ONE ×4 (11:42→21:08)
[2017-12-28] MEDS: METOPROLOL TARTRATE 25 MG TABLET (FP) PO SCH (11:46)
--- NOTE | 2017-12-28 14:09 | PN ---
Progress Note, Physician Chief Complaint: left hand dry gangrene History of Present Illness: 72 yo RHD female from [facility] with PMH HTN, DM, HLD, PAD, afib (on Eliquis 2.5mg PO BID), pacemaker/defibrillator, ESRD (M, W, F dialysis; L chest tunnel cath. Anuric), R ATK amputation, L foot amputation, L hand 2nd-4th digit amputation (03/12), who presents to the ED c/o LLE pain over the past two days. She has completed a 6-8 week course of these abx through a R PICC line for osteomyelitis of her L hand 2nd-4th digits. No acute events overnight, She is depressed and tearful regarding her condition. Today she had CTA upper extremties. - Current Medication List Current Medications: Active Medications Albuterol/Ipratropium (Duoneb -) 1 amp NEB Q6H PRN PRN Reason: SOB/WHEEZING Last Admin: 12/27/17 21:20 Dose: 1 amp Alprazolam (Xanax -) 0.5 mg PO Q8H PRN PRN Reason: ANXIETY Last Admin: 12/27/17 21:45 Dose: 0.5 mg Amino Acids (Prosource No Carb Liquid Pkt) 30 ml PO BID@0800,1730 [facility] Last Admin: 12/28/17 11:11 Dose: 30 ml Apixaban (Eliquis -) 2.5 mg PO BID [facility] Last Admin: 12/28/17 11:10 Dose: 2.5 mg Aspirin (Asa -) 81 mg PO DAILY [facility] Last Admin: 12/28/17 11:10 Dose: 81 mg Atorvastatin Calcium (Lipitor -) 80 mg PO HS [facility] Last Admin: 12/27/17 21:39 Dose: 80 mg Bisacodyl (Dulcolax -) 10 mg PO DAILY PRN PRN Reason: CONSTIPATION Last Admin: 12/26/17 21:52 Dose: 10 mg Escitalopram Oxalate (Lexapro -) 10 mg PO DAILY [facility] Last Admin: 12/28/17 11:10 Dose: 10 mg Guaifenesin (Robitussin Dm -) 10 ml PO Q6H PRN PRN Reason: COUGH Last Admin: 12/26/17 21:54 Dose: 10 ml Insulin Aspart (Novolog Vial Sliding Scale -) 1 vial SQ ACHS [facility] PRN Reason: Protocol Last Admin: 12/28/17 11:45 Dose: 2 units Levothyroxine Sodium 112 mcg/ (Levothyroxine Sodium 25 mcg) 137 mcg PO DAILY@ 0700 [facility] [place] Last Admin: 12/28/17 06:25 Dose: 137 mcg Lidocaine (Lidoderm Patch -) 1 patch TP DAILY [facility] Last Admin: 12/28/17 11:14 Dose: 1 patch Metoprolol Tartrate (Lopressor -) 12.5 mg PO DAILY [facility] Last Admin: 12/28/17 11:46 Dose: Not Given Miscellaneous (Lidoderm Patch Removal) 1 each MC DAILY@2200 [facility] [place] Last Admin: 12/27/17 21:39 Dose: 1 each Nystatin (Mycostatin Cream -) 1 applic TP DAILY [facility] [place] Last Admin: 12/27/17 09:15 Dose: 1 applic Oxycodone HCl (Roxicodone -) 5 mg PO Q6H PRN PRN Reason: PAIN LEVEL 6-10 Last Admin: 12/28/17 10:22 Dose: 5 mg Pantoprazole Sodium (Protonix -) 40 mg PO DAILY [facility] [place] Last Admin: 12/27/17 09:13 Dose: 40 mg Senna (Senna -) 1 tab PO DAILY [facility] [place] Last Admin: 12/27/17 09:13 Dose: 1 tab Sevelamer Carbonate (Renvela -) 1,600 mg PO TIDCM [facility] [place] Last Admin: 12/28/17 11:11 Dose: Not Given Silver Sulfadiazine (Silvadene -) 1 applic TP DAILY [facility] Last Admin: 12/28/17 11:00 Dose: 1 applic Sodium Thiosulfate (Sodium Thiosulfate) 25 gm IVPB MoWeFr@0800 [facility] [place] Last Admin: 12/28/17 09:07 Dose: 25 gm - Objective Vital Signs: Vital Signs Temperature 97.8 F 12/28/17 07:05 Pulse Rate 104 H 12/28/17 10:45 Respiratory Rate 18 12/28/17 10:45 Blood Pressure 148/76 12/28/17 10:45 O2 Sat by Pulse Oximetry (%) 99 12/27/17 21:00 Constitutional: Yes: No Distress, Calm, Obese Eyes: Yes: Conjunctiva Clear, EOM Intact HENT: Yes: Atraumatic, Normocephalic Neck: Yes: Supple, Trachea Midline Cardiovascular: Yes: Regular Rate and Rhythm, S1, S2 Respiratory: Yes: Regular, CTA Bilaterally Gastrointestinal: Yes: Normal Bowel Sounds, Soft, Abdomen, Obese, Tenderness ( left lateral abdomen wall edema) Genitourinary: No: CVA Tenderness - Left, CVA Tenderness - Right Extremities: No: Cool, Cyanosis Edema: Yes Edema: LLE: 2+ Peripheral Pulses WNL: No Peripheral Pulses: Left Doralis Pedis: 0, Left Femoral: 2+ Integumentary: Yes: Venous Stasis Changes. No: Jaundice Neurological: Yes: Alert, Oriented Psychiatric: Yes: Alert, Oriented, Other (depressed) Labs: CBC, BMP 12/28/17 05:35 12/28/17 07:10 INR, PTT INR 2.23 (0.82-1.09) H 12/22/17 12:57 Problem List - Problems (1) Gangrene of hand Assessment/Plan: 72yo female MMP presents with exquite pain and ischemic changes LLE while on eloquis, known h/o PVD and amputation s/p left hand multi digit amputation with expanding ischemic changes both hands. Progressive microvascular disease is the likely cause of all recently noted changes. Appreciate vascular surgery assessment. Medical optimization Cardiac and Renal evaluation empiric IV antibiotics Vascular surgery evaluation appreciated CT Angiogram for upper extremities no digital flow Dry dressing to left hand QOD as soiled Will follow Code(s): I96 - GANGRENE, NOT ELSEWHERE CLASSIFIED (2) ESRD on hemodialysis Code(s): N18.6 - END STAGE RENAL DISEASE; Z99.2 - DEPENDENCE ON RENAL DIALYSIS (3) History of ESBL Klebsiella pneumoniae infection Code(s): Z86.19 - PERSONAL HISTORY OF OTHER INFECTIOUS AND PARASITIC DISEASES (4) Left leg cellulitis Code(s): L03.116 - CELLULITIS OF LEFT LOWER LIMB (5) Status post transmetatarsal amputation of left foot Code(s): Z89.432 - ACQUIRED ABSENCE OF LEFT FOOT (6) Unilateral AKA Code(s): Z89.619 - ACQUIRED ABSENCE OF UNSPECIFIED LEG ABOVE KNEE (7) Cellulitis and abscess of hand Code(s): L03.119 - CELLULITIS OF UNSPECIFIED PART OF LIMB; L02.519 - CUTANEOUS ABSCESS OF UNSPECIFIED HAND (8) Cellulitis of left hand Code(s): L03.114 - CELLULITIS OF LEFT UPPER LIMB (9) Suppurative tenosynovitis of flexor tendon of left hand Code(s): M65.142 - OTHER INFECTIVE (TENO)SYNOVITIS, LEFT HAND
[2017-12-28] MEDS: ALBUTEROL SO4 2.5/IPRATROPIUM 0.5 INH SOL 3 ML VIAL.NEB. NEB PRN ×2 (14:17→23:45)
--- NOTE | 2017-12-28 14:30 | PN ---
Progress Note, Physician History of Present Illness: pulmonary alert,c/o increased sob,+ congestion. pt s/p hd - Current Medication List Current Medications: Active Medications Albuterol/Ipratropium (Duoneb -) 1 amp NEB Q6H PRN PRN Reason: SOB/WHEEZING Last Admin: 12/28/17 14:17 Dose: 1 amp Alprazolam (Xanax -) 0.5 mg PO Q8H PRN PRN Reason: ANXIETY Last Admin: 12/27/17 21:45 Dose: 0.5 mg Amino Acids (Prosource No Carb Liquid Pkt) 30 ml PO BID@0800,1730 [facility] Last Admin: 12/28/17 11:11 Dose: 30 ml Apixaban (Eliquis -) 2.5 mg PO BID [facility] Last Admin: 12/28/17 11:10 Dose: 2.5 mg Aspirin (Asa -) 81 mg PO DAILY [facility] Last Admin: 12/28/17 11:10 Dose: 81 mg Atorvastatin Calcium (Lipitor -) 80 mg PO HS [facility] Last Admin: 12/27/17 21:39 Dose: 80 mg Bisacodyl (Dulcolax -) 10 mg PO DAILY PRN PRN Reason: CONSTIPATION Last Admin: 12/26/17 21:52 Dose: 10 mg Escitalopram Oxalate (Lexapro -) 10 mg PO DAILY [facility] Last Admin: 12/28/17 11:10 Dose: 10 mg Guaifenesin (Robitussin Dm -) 10 ml PO Q6H PRN PRN Reason: COUGH Last Admin: 12/26/17 21:54 Dose: 10 ml Insulin Aspart (Novolog Vial Sliding Scale -) 1 vial SQ ACHS [facility] PRN Reason: Protocol Last Admin: 12/28/17 11:45 Dose: 2 units Levothyroxine Sodium 112 mcg/ (Levothyroxine Sodium 25 mcg) 137 mcg PO DAILY@ 0700 [facility] Last Admin: 12/28/17 06:25 Dose: 137 mcg Lidocaine (Lidoderm Patch -) 1 patch TP DAILY [facility] Last Admin: 12/28/17 11:14 Dose: 1 patch Metoprolol Tartrate (Lopressor -) 12.5 mg PO DAILY [facility] Last Admin: 12/28/17 11:46 Dose: Not Given Miscellaneous (Lidoderm Patch Removal) 1 each MC DAILY@2200 [facility] Last Admin: 12/27/17 21:39 Dose: 1 each Nystatin (Mycostatin Cream -) 1 applic TP DAILY [facility] Last Admin: 12/27/17 09:15 Dose: 1 applic Oxycodone HCl (Roxicodone -) 5 mg PO Q6H PRN PRN Reason: PAIN LEVEL 6-10 Last Admin: 12/28/17 10:22 Dose: 5 mg Pantoprazole Sodium (Protonix -) 40 mg PO DAILY [facility] Last Admin: 12/27/17 09:13 Dose: 40 mg Senna (Senna -) 1 tab PO DAILY [facility] Last Admin: 12/27/17 09:13 Dose: 1 tab Sevelamer Carbonate (Renvela -) 1,600 mg PO TIDCM [facility] Last Admin: 12/28/17 11:11 Dose: Not Given Silver Sulfadiazine (Silvadene -) 1 applic TP DAILY [facility] Last Admin: 12/28/17 11:00 Dose: 1 applic Sodium Thiosulfate (Sodium Thiosulfate) 25 gm IVPB MoWeFr@0800 [facility] Last Admin: 12/28/17 09:07 Dose: 25 gm - Objective Vital Signs: Vital Signs Temperature 97.8 F 12/28/17 07:05 Pulse Rate 104 H 12/28/17 10:45 Respiratory Rate 18 12/28/17 10:45 Blood Pressure 148/76 12/28/17 10:45 O2 Sat by Pulse Oximetry (%) 99 12/27/17 21:00 Constitutional: Yes: Well Nourished, Other (dyspneic) Eyes: Yes: WNL HENT: Yes: WNL Neck: Yes: WNL Cardiovascular: Yes: Pulse Irregular, S1, S2 Respiratory: Yes: Rhonchi (bilateral rhonchi) Gastrointestinal: Yes: Normal Bowel Sounds, Soft Extremities: Yes: Amputation (r aka,partial left foot amputation) Edema: Yes Edema: LLE: 1+ Labs: CBC, BMP 12/28/17 05:35 12/28/17 07:10 INR, PTT INR 2.23 (0.82-1.09) H 12/22/17 12:57 Problem List - Problems (1) Dyspnea Code(s): R06.00 - DYSPNEA, UNSPECIFIED (2) ESRD on hemodialysis Code(s): N18.6 - END STAGE RENAL DISEASE; Z99.2 - DEPENDENCE ON RENAL DIALYSIS (3) Leg wound, left Code(s): S81.802A - UNSPECIFIED OPEN WOUND, LEFT LOWER LEG, INITIAL ENCOUNTER (4) Unilateral AKA Code(s): Z89.619 - ACQUIRED ABSENCE OF UNSPECIFIED LEG ABOVE KNEE (5) Anemia in ESRD (end-stage renal disease) Code(s): N18.6 - END STAGE RENAL DISEASE; D63.1 - ANEMIA IN CHRONIC KIDNEY DISEASE (6) Atrial fibrillation Code(s): I48.91 - UNSPECIFIED ATRIAL FIBRILLATION Qualifiers: (7) CAD (coronary artery disease) Code(s): I25.10 - ATHSCL HEART DISEASE OF [place] CORONARY ARTERY W/O ANG PCTRS Qualifiers: Coronary Disease-Associated Artery/Lesion type: [place] artery [place] vs. transplanted heart: [place] heart Associated angina: without angina Qualified Code(s): I25.10 - Atherosclerotic heart disease of [place] coronary artery without angina pectoris (8) Diabetes Code(s): E11.9 - TYPE 2 DIABETES MELLITUS WITHOUT COMPLICATIONS Qualifiers: (9) ESRD (end stage renal disease) on dialysis Code(s): N18.6 - END STAGE RENAL DISEASE; Z99.2 - DEPENDENCE ON RENAL DIALYSIS (10) Peripheral vascular disease due to secondary diabetes Code(s): E13.51 - OTH DIABETES W DIABETIC PERIPHERAL ANGIOPATHY W/O GANGRENE (11) S/P transmetatarsal amputation of foot Code(s): Z89.439 - ACQUIRED ABSENCE OF UNSPECIFIED FOOT Qualifiers: Laterality: left Qualified Code(s): Z89.432 - Acquired absence of left foot Assessment/Plan A/P Atrial Fibrillation with RVR r/o Sepsis DYSPNEA ESRD on HD PAD CAD HTN DM Hyperlipidemia - chest x-ray - inhaled bronchodilators - HD per renal - rate control - continue anticoagulation - wound care DR JOHNSON
--- NOTE | 2017-12-28 16:30 | PN ---
Progress Note, Physician Chief Complaint: Events noted Has pain in left leg Lidoderm patch helps the pain currently receiving dialysis - Current Medication List Current Medications: Active Medications Albuterol/Ipratropium (Duoneb -) 1 amp NEB Q6H PRN PRN Reason: SOB/WHEEZING Last Admin: 12/28/17 14:17 Dose: 1 amp Alprazolam (Xanax -) 0.5 mg PO Q8H PRN PRN Reason: ANXIETY Last Admin: 12/27/17 21:45 Dose: 0.5 mg Amino Acids (Prosource No Carb Liquid Pkt) 30 ml PO BID@0800,1730 [facility] Last Admin: 12/28/17 11:11 Dose: 30 ml Apixaban (Eliquis -) 2.5 mg PO BID [facility] Last Admin: 12/28/17 11:10 Dose: 2.5 mg Aspirin (Asa -) 81 mg PO DAILY [facility] Last Admin: 12/28/17 11:10 Dose: 81 mg Atorvastatin Calcium (Lipitor -) 80 mg PO HS [facility] Last Admin: 12/27/17 21:39 Dose: 80 mg Bisacodyl (Dulcolax -) 10 mg PO DAILY PRN PRN Reason: CONSTIPATION Last Admin: 12/26/17 21:52 Dose: 10 mg Escitalopram Oxalate (Lexapro -) 10 mg PO DAILY [facility] Last Admin: 12/28/17 11:10 Dose: 10 mg Guaifenesin (Robitussin Dm -) 10 ml PO Q6H PRN PRN Reason: COUGH Last Admin: 12/26/17 21:54 Dose: 10 ml Insulin Aspart (Novolog Vial Sliding Scale -) 1 vial SQ ACHS [facility] PRN Reason: Protocol Last Admin: 12/28/17 11:45 Dose: 2 units Levothyroxine Sodium 112 mcg/ (Levothyroxine Sodium 25 mcg) 137 mcg PO DAILY@ 0700 [facility] Last Admin: 12/28/17 06:25 Dose: 137 mcg Lidocaine (Lidoderm Patch -) 1 patch TP DAILY [facility] Last Admin: 12/28/17 11:14 Dose: 1 patch Metoprolol Tartrate (Lopressor -) 12.5 mg PO DAILY [facility] Last Admin: 12/28/17 11:46 Dose: Not Given Miscellaneous (Lidoderm Patch Removal) 1 each MC DAILY@2200 [facility] Last Admin: 12/27/17 21:39 Dose: 1 each Nystatin (Mycostatin Cream -) 1 applic TP DAILY [facility] Last Admin: 12/27/17 09:15 Dose: 1 applic Oxycodone HCl (Roxicodone -) 5 mg PO Q6H PRN PRN Reason: PAIN LEVEL 6-10 Last Admin: 12/28/17 10:22 Dose: 5 mg Pantoprazole Sodium (Protonix -) 40 mg PO DAILY [facility] Last Admin: 12/27/17 09:13 Dose: 40 mg Senna (Senna -) 1 tab PO DAILY [facility] Last Admin: 12/27/17 09:13 Dose: 1 tab Sevelamer Carbonate (Renvela -) 1,600 mg PO TIDCM [facility] Last Admin: 12/28/17 11:11 Dose: Not Given Silver Sulfadiazine (Silvadene -) 1 applic TP DAILY [facility] Last Admin: 12/28/17 11:00 Dose: 1 applic Sodium Thiosulfate (Sodium Thiosulfate) 25 gm IVPB MoWeFr@0800 [facility] Last Admin: 12/28/17 09:07 Dose: 25 gm - Objective Vital Signs: Vital Signs Temperature 96.9 F L 12/28/17 14:15 Pulse Rate 107 H 12/28/17 14:15 Respiratory Rate 22 12/28/17 14:15 Blood Pressure 125/85 12/28/17 14:15 O2 Sat by Pulse Oximetry (%) 99 12/28/17 09:00 Constitutional: Yes: No Distress Cardiovascular: Yes: Pulse Irregular Respiratory: Yes: Diminished Gastrointestinal: Yes: Normal Bowel Sounds, Soft. No: Tenderness Extremities: Yes: Amputation, Other (tender left leg) Edema: Yes Labs: CBC, BMP 12/28/17 05:35 12/28/17 07:10 INR, PTT INR 2.23 (0.82-1.09) H 12/22/17 12:57 Problem List - Problems (1) Depression Code(s): F32.9 - MAJOR DEPRESSIVE DISORDER, SINGLE EPISODE, UNSPECIFIED (2) Dyspnea Code(s): R06.00 - DYSPNEA, UNSPECIFIED (3) ESRD on hemodialysis Code(s): N18.6 - END STAGE RENAL DISEASE; Z99.2 - DEPENDENCE ON RENAL DIALYSIS (4) Leg pain, left Code(s): M79.605 - PAIN IN LEFT LEG (5) Leukocytosis Code(s): D72.829 - ELEVATED WHITE BLOOD CELL COUNT, UNSPECIFIED (6) Atrial fibrillation Code(s): I48.91 - UNSPECIFIED ATRIAL FIBRILLATION Qualifiers: Assessment/Plan PLAN WBC trending down off antibiotics Pain control HD per Renal CTA upper extremity done-- results pending
--- NOTE | 2017-12-28 16:39 | PN ---
Progress Note (short form) - Note Progress Note: asked to reevaluate for chest congestion by Dr Bernardo cxray with increasing RUL infiltrate she is alert but has a cough denies vomiting Vital Signs Period Temp Pulse Resp BP Sys/Cordero Pulse Ox Last 24 Hr 96.9 F-99.4 F 90-117 18-22 107-152/51-85 99-99 cor-rrr lulngs bilateral rhonchi abd soft, LLQ subcut aneous mass unchanged ext pain LLE unchanged on palpation, superficial abrasions of the leg CBC, BMP 12/28/17 05:35 12/28/17 07:10 Microbiology 12/21/17 23:30 Blood - Peripheral Venous Blood Culture - Final NO GROWTH AFTER 5 DAYS INCUBATION 12/21/17 23:30 Blood - Peripheral Venous Blood Culture - Final NO GROWTH AFTER 5 DAYS INCUBATION 12/22/17 00:52 Leg - Left Lower Gram Stain - Final 12/22/17 00:52 Leg - Left Lower Wound Culture - Final Pseudomonas Aeruginosa Yeast Like Organism a/p HCAP- new infiltrate on cxray despite HD willl start vanco/cefepime (pseudomonas from leg culture is zosyn resistant) incentive spirometry not sure if this is pneumonia or atelectasis suggest chest PT as well esrd/hd overall doing poorly d/w patient and daughter at bedside Problem List - Problems (1) Leucocytosis Code(s): D72.829 - ELEVATED WHITE BLOOD CELL COUNT, UNSPECIFIED (2) Leg pain, left Code(s): M79.605 - PAIN IN LEFT LEG (3) History of ESBL Klebsiella pneumoniae infection Code(s): Z86.19 - PERSONAL HISTORY OF OTHER INFECTIOUS AND PARASITIC DISEASES (4) ESRD on hemodialysis Code(s): N18.6 - END STAGE RENAL DISEASE; Z99.2 - DEPENDENCE ON RENAL DIALYSIS
--- NOTE | 2017-12-28 17:48 | PN ---
Progress Note (short form) - Note Progress Note: Renal follow up for ESRD on HD Pt seen and examined oat the bedside pt in pain (LLE) + cough and chest congestion no chest pain or chest pressure no fever, chills s/p dialysis today with 2.5L UF Vital Signs Temperature 96.9 F L 12/28/17 14:15 Pulse Rate 107 H 12/28/17 14:15 Respiratory Rate 22 12/28/17 14:15 Blood Pressure 125/85 12/28/17 14:15 O2 Sat by Pulse Oximetry (%) 99 12/28/17 09:00 Intake & Output 12/25/17 12/26/17 12/27/17 12/28/17 23:59 23:59 23:59 23:59 Intake Total 120 820 540 Balance 120 820 540 Weight 86.183 kg NAD, awake and alert No JVD, Neck supple RRR, No M/R CTA soft, obese, + tender lesion on left side of abd LLE with diffuse tenderness, no cyanosis or clubbing CBC, BMP 12/28/17 05:35 12/28/17 07:10 Current Medications Albuterol/Ipratropium (Duoneb -) 1 amp NEB Q6H PRN PRN Reason: SOB/WHEEZING Last Admin: 12/28/17 14:17 Dose: 1 amp Alprazolam (Xanax -) 0.5 mg PO Q8H PRN PRN Reason: ANXIETY Last Admin: 12/27/17 21:45 Dose: 0.5 mg Amino Acids (Prosource No Carb Liquid Pkt) 30 ml PO BID@0800,1730 [facility] Last Admin: 12/28/17 17:17 Dose: 30 ml Apixaban (Eliquis -) 2.5 mg PO BID [facility] Last Admin: 12/28/17 11:10 Dose: 2.5 mg Aspirin (Asa -) 81 mg PO DAILY [facility] Last Admin: 12/28/17 11:10 Dose: 81 mg Atorvastatin Calcium (Lipitor -) 80 mg PO HS [facility] Last Admin: 12/27/17 21:39 Dose: 80 mg Bisacodyl (Dulcolax -) 10 mg PO DAILY PRN PRN Reason: CONSTIPATION Last Admin: 12/26/17 21:52 Dose: 10 mg Escitalopram Oxalate (Lexapro -) 10 mg PO DAILY [facility] Last Admin: 12/28/17 11:10 Dose: 10 mg Guaifenesin (Robitussin Dm -) 10 ml PO Q6H PRN PRN Reason: COUGH Last Admin: 12/26/17 21:54 Dose: 10 ml Insulin Aspart (Novolog Vial Sliding Scale -) 1 vial SQ ACHS [facility] PRN Reason: Protocol Last Admin: 12/28/17 16:54 Dose: 2 units Levothyroxine Sodium 112 mcg/ (Levothyroxine Sodium 25 mcg) 137 mcg PO DAILY@ 0700 [facility] Last Admin: 12/28/17 06:25 Dose: 137 mcg Lidocaine (Lidoderm Patch -) 1 patch TP DAILY [facility] Last Admin: 12/28/17 11:14 Dose: 1 patch Metoprolol Tartrate (Lopressor -) 12.5 mg PO DAILY [facility] Last Admin: 12/28/17 11:46 Dose: Not Given Miscellaneous (Lidoderm Patch Removal) 1 each MC DAILY@2200 [facility] Last Admin: 12/27/17 21:39 Dose: 1 each Nystatin (Mycostatin Cream -) 1 applic TP DAILY [facility] Last Admin: 12/27/17 09:15 Dose: 1 applic Oxycodone HCl (Roxicodone -) 5 mg PO Q6H PRN PRN Reason: PAIN LEVEL 6-10 Last Admin: 12/28/17 10:22 Dose: 5 mg Pantoprazole Sodium (Protonix -) 40 mg PO DAILY [facility] Last Admin: 12/28/17 11:30 Dose: 40 mg Senna (Senna -) 1 tab PO DAILY [facility] Last Admin: 12/28/17 11:30 Dose: 1 tab Sevelamer Carbonate (Renvela -) 1,600 mg PO TIDCM [facility] Last Admin: 12/28/17 16:56 Dose: 1,600 mg Silver Sulfadiazine (Silvadene -) 1 applic TP DAILY [facility] Last Admin: 12/28/17 11:00 Dose: 1 applic Sodium Thiosulfate (Sodium Thiosulfate) 25 gm IVPB MoWeFr@0800 [facility] Last Admin: 12/28/17 09:07 Dose: 25 gm 72 year old woman with PMhx of ESRD on HD, Hypertension, CAD, PVD s/p amputations, Afib on Eliquis, Calciphylaxis who presented with LE wound and admitted for Sepsis. #ESRD on HD #Leukocytoisis r/o sepsis #Left Lung infiltrate vs. consolidation #Calciphaylaxis #CKD Related Anemia #Hypothyroidism tolerated dialysis well this am chest congestion due to fluid vs. infiltrate WBC improving off Abx will arrange for additional UF tomorrow continue sodium thiosulfate with HD continue renvela with meals prognosis is guarded Wan Cruz DO
[2017-12-28] MEDS ORDERED: VANCOMYCIN 1,000 MG in DEXTROSE 5%-WATER - 250 ML IVPB ONE (18:46)
[2017-12-28] MEDS: CEFEPIME HCL/D5W 1 GM/50 ML BAG IVPB SCH (20:29)
[2017-12-28] MEDS: ALPRAZolam 0.25 MG TABLET PO PRN (21:21)
[2017-12-28] MEDS: ATORVASTATIN CA 80 MG TABLET (FP) PO SCH (21:21)
[2017-12-28] MEDS: BISACODYL 5 MG TABLET.DR (FP) PO PRN (21:21)
[2017-12-28] MEDS: LIDOCAINE PATCH REMOVAL MC SCH (21:24)
[2017-12-29] MEDS ORDERED: LEVOTHYROXINE NA 25 MCG TABLET (FP) ONE (06:15)
[2017-12-29] MEDS ORDERED: LEVOTHYROXINE NA 112 MCG TABLET (FP) ONE (06:16)
[2017-12-29] MEDS: oxyCODONE HCL 5 MG TABLET PO PRN ×2 (06:25→13:00)
[2017-12-29] MEDS: LEVOTHYROXINE 112 MCG, LEVOTHYROXINE 25 MCG PO SCH (06:25)
[2017-12-29] MEDS: INSULIN SLIDING SCALE (NOVOLOG) 1 VIAL SQ SCH ×4 (06:27→21:39)
[2017-12-29] MEDS ORDERED: PT OWN MED DRAWER 7, Y5N ONE (06:44)
[2017-12-29] MEDS: ALBUTEROL SO4 2.5/IPRATROPIUM 0.5 INH SOL 3 ML VIAL.NEB. NEB PRN ×3 (07:34→22:02)
[2017-12-29 07:51] LABS: HEMATOCRIT 30.8 % (32.4-45.2); HEMOGLOBIN 9.8 GM/dL (10.7-15.3); MCH 32.5 pg (25.7-33.7); MCHC 31.8 g/dl (32.0-36.0); MEAN CELL VOLUME 102.3 fl (80-96); MEAN PLT VOLUME 8.1 fl (7.5-11.1); PLATELET COUNT 299 K/MM3 (134-434); RBC 3.01 M/mm3 (3.60-5.2); WHITE BLOOD COUNT 10.2 K/mm3 (4.0-10.0)
--- NOTE | 2017-12-29 08:48 | PN ---
Progress Note, Physician Chief Complaint: ID Vernon Cefepime day 1 Appears weak breathing shallow Afebrile - Current Medication List Current Medications: Active Medications Albuterol/Ipratropium (Duoneb -) 1 amp NEB Q6H PRN PRN Reason: SOB/WHEEZING Last Admin: 12/29/17 07:34 Dose: 1 amp Alprazolam (Xanax -) 0.5 mg PO Q8H PRN PRN Reason: ANXIETY Last Admin: 12/28/17 21:21 Dose: 0.5 mg Amino Acids (Prosource No Carb Liquid Pkt) 30 ml PO BID@0800,1730 [facility] Last Admin: 12/28/17 17:17 Dose: 30 ml Apixaban (Eliquis -) 2.5 mg PO BID [facility] Last Admin: 12/28/17 21:21 Dose: 2.5 mg Aspirin (Asa -) 81 mg PO DAILY [facility] Last Admin: 12/28/17 11:10 Dose: 81 mg Atorvastatin Calcium (Lipitor -) 80 mg PO HS [facility] Last Admin: 12/28/17 21:21 Dose: 80 mg Bisacodyl (Dulcolax -) 10 mg PO DAILY PRN PRN Reason: CONSTIPATION Last Admin: 12/28/17 21:21 Dose: 10 mg Escitalopram Oxalate (Lexapro -) 10 mg PO DAILY [facility] Last Admin: 12/28/17 11:10 Dose: 10 mg Guaifenesin (Robitussin Dm -) 10 ml PO Q6H PRN PRN Reason: COUGH Last Admin: 12/26/17 21:54 Dose: 10 ml Cefepime HCl (Maxipime 1 Gm Premix Ivpb) 1 gm in 50 mls @ 100 mls/hr IVPB DAILY [facility] Last Admin: 12/28/17 20:29 Dose: 100 mls/hr Sodium Chloride (Normal Saline -) 250 mls @ 3,000 mls/hr IV PRN PRN PRN Reason: Hypotension during Dialysis Stop: 12/29/17 23:07 Insulin Aspart (Novolog Vial Sliding Scale -) 1 vial SQ ACHS [facility] PRN Reason: Protocol Last Admin: 12/29/17 06:27 Dose: Not Given Levothyroxine Sodium 112 mcg/ (Levothyroxine Sodium 25 mcg) 137 mcg PO DAILY@ 0700 [facility] Last Admin: 12/29/17 06:25 Dose: 137 mcg Lidocaine (Lidoderm Patch -) 1 patch TP DAILY [facility] Last Admin: 12/28/17 11:14 Dose: 1 patch Metoprolol Tartrate (Lopressor -) 12.5 mg PO DAILY [facility] Last Admin: 12/28/17 11:46 Dose: Not Given Miscellaneous (Lidoderm Patch Removal) 1 each MC DAILY@2200 [facility] Last Admin: 12/28/17 21:24 Dose: 1 each Nystatin (Mycostatin Cream -) 1 applic TP DAILY [facility] Last Admin: 12/28/17 10:00 Dose: Not Given Oxycodone HCl (Roxicodone -) 5 mg PO Q6H PRN PRN Reason: PAIN LEVEL 6-10 Last Admin: 12/29/17 06:25 Dose: 5 mg Pantoprazole Sodium (Protonix -) 40 mg PO DAILY [facility] Last Admin: 12/28/17 11:30 Dose: 40 mg Senna (Senna -) 1 tab PO DAILY [facility] Last Admin: 12/28/17 11:30 Dose: 1 tab Sevelamer Carbonate (Renvela -) 1,600 mg PO TIDCM [facility] Last Admin: 12/28/17 16:56 Dose: 1,600 mg Silver Sulfadiazine (Silvadene -) 1 applic TP DAILY [facility] Last Admin: 12/28/17 11:00 Dose: 1 applic Sodium Thiosulfate (Sodium Thiosulfate) 25 gm IVPB MoWeFr@0800 [facility] Last Admin: 12/28/17 09:07 Dose: 25 gm - Objective Vital Signs: Vital Signs Temperature 97.2 F L 12/29/17 05:00 Pulse Rate 116 H 12/29/17 05:00 Respiratory Rate 18 12/29/17 05:00 Blood Pressure 157/79 12/29/17 05:00 O2 Sat by Pulse Oximetry (%) 100 12/28/17 21:00 Constitutional: Yes: Mild Distress Cardiovascular: Yes: S1, S2 Respiratory: Yes: WNL, Regular, CTA Bilaterally, Diminished Labs: CBC, BMP 12/29/17 07:00 12/28/17 07:10 INR, PTT INR 2.23 (0.82-1.09) H 12/22/17 12:57 Assessment/Plan Microbiology 12/22/17 00:52 Leg - Left Lower Gram Stain - Final 12/22/17 00:52 Leg - Left Lower Wound Culture - Final Pseudomonas Aeruginosa Yeast Like Organism 12/21/17 23:30 Blood - Peripheral Venous Blood Culture - Final NO GROWTH AFTER 5 DAYS INCUBATION 12/21/17 23:30 Blood - Peripheral Venous Blood Culture - Final NO GROWTH AFTER 5 DAYS INCUBATION Laboratory Tests 12/28/17 12/29/17 07:10 07:00 WBC 10.2 H RBC 3.01 L Hct 30.8 L Plt Count 299 BUN 18 Creatinine 2.4 H Assessment ESRD ON treatment for ? new pneumonia left chest atrial fib Post amputation DM Severe arterial disease Plan Continue antibiotic as ordered Danica CASTILLO
[2017-12-29 09:42] LABS: ANISOCYTOSIS 2+; MACROCYTOSIS 2+; PLATELET ESTIMATE NORMAL; TARGET CELLS 1+
[2017-12-29] MEDS: NYSTATIN 100,000 UNIT/GM TOPICAL CREAM 15 GM TUBE TP SCH (10:00)
[2017-12-29 10:44] LABS: ANION GAP 9 (8-16); BLOOD UREA NITROGEN 19 mg/dL (7-18); CHLORIDE 102 mmol/L (98-107); CO2 31 mmol/L (21-32); CREATININE 2.1 mg/dL (0.55-1.02); GLUCOSE,RANDOM 185 mg/dL (74-106); PHOSPHOROUS 1.6 mg/dL (2.5-4.9); POTASSIUM 3.5 mmol/L (3.5-5.1); SODIUM 142 mmol/L (136-145)
[2017-12-29 10:48] LABS: CALCIUM 6.9 mg/dL (8.5-10.1)
[2017-12-29] MEDS: SEVELAMER CARBONATE 800 MG TAB (FP) PO SCH ×3 (11:19→17:03)
--- NOTE | 2017-12-29 12:02 | PN ---
Progress Note, Physician Chief Complaint: dialysis today pt has mild cough daughter at bedside pt has pain in left leg - Current Medication List Current Medications: Active Medications Albuterol/Ipratropium (Duoneb -) 1 amp NEB Q6H PRN PRN Reason: SOB/WHEEZING Last Admin: 12/29/17 07:34 Dose: 1 amp Alprazolam (Xanax -) 0.5 mg PO Q8H PRN PRN Reason: ANXIETY Last Admin: 12/28/17 21:21 Dose: 0.5 mg Amino Acids (Prosource No Carb Liquid Pkt) 30 ml PO BID@0800,1730 [facility] Last Admin: 12/28/17 17:17 Dose: 30 ml Apixaban (Eliquis -) 2.5 mg PO BID [facility] Last Admin: 12/28/17 21:21 Dose: 2.5 mg Aspirin (Asa -) 81 mg PO DAILY [facility] Last Admin: 12/28/17 11:10 Dose: 81 mg Atorvastatin Calcium (Lipitor -) 80 mg PO HS [facility] Last Admin: 12/28/17 21:21 Dose: 80 mg Bisacodyl (Dulcolax -) 10 mg PO DAILY PRN PRN Reason: CONSTIPATION Last Admin: 12/28/17 21:21 Dose: 10 mg Escitalopram Oxalate (Lexapro -) 10 mg PO DAILY [facility] Last Admin: 12/28/17 11:10 Dose: 10 mg Guaifenesin (Robitussin Dm -) 10 ml PO Q6H PRN PRN Reason: COUGH Last Admin: 12/26/17 21:54 Dose: 10 ml Cefepime HCl (Maxipime 1 Gm Premix Ivpb) 1 gm in 50 mls @ 100 mls/hr IVPB DAILY [facility] Last Admin: 12/28/17 20:29 Dose: 100 mls/hr Sodium Chloride (Normal Saline -) 250 mls @ 3,000 mls/hr IV PRN PRN PRN Reason: Hypotension during Dialysis Stop: 12/29/17 23:07 Insulin Aspart (Novolog Vial Sliding Scale -) 1 vial SQ ACHS [facility] PRN Reason: Protocol Last Admin: 12/29/17 11:39 Dose: 4 units Levothyroxine Sodium 112 mcg/ (Levothyroxine Sodium 25 mcg) 137 mcg PO DAILY@ 0700 [facility] Last Admin: 12/29/17 06:25 Dose: 137 mcg Lidocaine (Lidoderm Patch -) 1 patch TP DAILY [facility] Last Admin: 12/28/17 11:14 Dose: 1 patch Metoprolol Tartrate (Lopressor -) 12.5 mg PO DAILY [facility] Last Admin: 12/28/17 11:46 Dose: Not Given Miscellaneous (Lidoderm Patch Removal) 1 each MC DAILY@2200 [facility] Last Admin: 12/28/17 21:24 Dose: 1 each Nystatin (Mycostatin Cream -) 1 applic TP DAILY [facility] Last Admin: 12/29/17 10:00 Dose: Not Given Oxycodone HCl (Roxicodone -) 5 mg PO Q6H PRN PRN Reason: PAIN LEVEL 6-10 Last Admin: 12/29/17 06:25 Dose: 5 mg Pantoprazole Sodium (Protonix -) 40 mg PO DAILY [facility] Last Admin: 12/28/17 11:30 Dose: 40 mg Senna (Senna -) 1 tab PO DAILY [facility] Last Admin: 12/28/17 11:30 Dose: 1 tab Sevelamer Carbonate (Renvela -) 1,600 mg PO TIDCM [facility] Last Admin: 12/29/17 11:19 Dose: Not Given Silver Sulfadiazine (Silvadene -) 1 applic TP DAILY [facility] Last Admin: 12/28/17 11:00 Dose: 1 applic Sodium Thiosulfate (Sodium Thiosulfate) 25 gm IVPB MoWeFr@0800 [facility] Last Admin: 12/28/17 09:07 Dose: 25 gm - Objective Vital Signs: Vital Signs Temperature 98.2 F 12/29/17 09:40 Pulse Rate 109 H 12/29/17 10:45 Respiratory Rate 18 12/29/17 10:45 Blood Pressure 90/55 12/29/17 10:45 O2 Sat by Pulse Oximetry (%) 100 12/28/17 21:00 Constitutional: Yes: No Distress Cardiovascular: Yes: Pulse Irregular, Murmur Respiratory: Yes: Diminished Gastrointestinal: Yes: Normal Bowel Sounds, Hemorrhoids. No: Tenderness Extremities: Yes: Other (tender left leg) Edema: No Labs: CBC, BMP 12/29/17 07:00 12/29/17 09:55 INR, PTT INR 2.23 (0.82-1.09) H 12/22/17 12:57 Problem List - Problems (1) Depression Code(s): F32.9 - MAJOR DEPRESSIVE DISORDER, SINGLE EPISODE, UNSPECIFIED (2) Dyspnea Code(s): R06.00 - DYSPNEA, UNSPECIFIED (3) ESRD on hemodialysis Code(s): N18.6 - END STAGE RENAL DISEASE; Z99.2 - DEPENDENCE ON RENAL DIALYSIS (4) Leg pain, left Code(s): M79.605 - PAIN IN LEFT LEG (5) Leukocytosis Code(s): D72.829 - ELEVATED WHITE BLOOD CELL COUNT, UNSPECIFIED (6) Atrial fibrillation Code(s): I48.91 - UNSPECIFIED ATRIAL FIBRILLATION Qualifiers: Assessment/Plan PLAN WBC trending down restarted iv antibiotics for pneumonia Pain control HD per Renal CTA upper extremity done-- results noted
--- NOTE | 2017-12-29 12:13 | PN ---
Progress Note (short form) - Note Progress Note: seen while on dialysis tolerating treatment well serum ca lower today partly due to hypoalbuminemia Problems: 72 year old woman with PMhx of ESRD on HD, Hypertension, CAD, PVD s/p amputations, Afib on Eliquis, Calciphylaxis LE wound and admitted for Sepsis. Current Medications Albuterol/Ipratropium (Duoneb -) 1 amp NEB Q6H PRN PRN Reason: SOB/WHEEZING Last Admin: 12/29/17 07:34 Dose: 1 amp Alprazolam (Xanax -) 0.5 mg PO Q8H PRN PRN Reason: ANXIETY Last Admin: 12/28/17 21:21 Dose: 0.5 mg Amino Acids (Prosource No Carb Liquid Pkt) 30 ml PO BID@0800,1730 [facility] Last Admin: 12/28/17 17:17 Dose: 30 ml Apixaban (Eliquis -) 2.5 mg PO BID [facility] Last Admin: 12/28/17 21:21 Dose: 2.5 mg Aspirin (Asa -) 81 mg PO DAILY [facility] Last Admin: 12/28/17 11:10 Dose: 81 mg Atorvastatin Calcium (Lipitor -) 80 mg PO HS [facility] Last Admin: 12/28/17 21:21 Dose: 80 mg Bisacodyl (Dulcolax -) 10 mg PO DAILY PRN PRN Reason: CONSTIPATION Last Admin: 12/28/17 21:21 Dose: 10 mg Escitalopram Oxalate (Lexapro -) 10 mg PO DAILY [facility] Last Admin: 12/28/17 11:10 Dose: 10 mg Guaifenesin (Robitussin Dm -) 10 ml PO Q6H PRN PRN Reason: COUGH Last Admin: 12/26/17 21:54 Dose: 10 ml Cefepime HCl (Maxipime 1 Gm Premix Ivpb) 1 gm in 50 mls @ 100 mls/hr IVPB DAILY [facility] Last Admin: 12/28/17 20:29 Dose: 100 mls/hr Sodium Chloride (Normal Saline -) 250 mls @ 3,000 mls/hr IV PRN PRN PRN Reason: Hypotension during Dialysis Stop: 12/29/17 23:07 Insulin Aspart (Novolog Vial Sliding Scale -) 1 vial SQ ACHS [facility] PRN Reason: Protocol Last Admin: 12/29/17 11:39 Dose: 4 units Levothyroxine Sodium 112 mcg/ (Levothyroxine Sodium 25 mcg) 137 mcg PO DAILY@ 0700 [facility] Last Admin: 12/29/17 06:25 Dose: 137 mcg Lidocaine (Lidoderm Patch -) 1 patch TP DAILY [facility] Last Admin: 12/28/17 11:14 Dose: 1 patch Metoprolol Tartrate (Lopressor -) 12.5 mg PO DAILY [facility] Last Admin: 12/28/17 11:46 Dose: Not Given Miscellaneous (Lidoderm Patch Removal) 1 each MC DAILY@2200 [facility] Last Admin: 12/28/17 21:24 Dose: 1 each Nystatin (Mycostatin Cream -) 1 applic TP DAILY [facility] Last Admin: 12/29/17 10:00 Dose: Not Given Oxycodone HCl (Roxicodone -) 5 mg PO Q6H PRN PRN Reason: PAIN LEVEL 6-10 Last Admin: 12/29/17 06:25 Dose: 5 mg Pantoprazole Sodium (Protonix -) 40 mg PO DAILY [facility] Last Admin: 12/28/17 11:30 Dose: 40 mg Senna (Senna -) 1 tab PO DAILY [facility] Last Admin: 12/28/17 11:30 Dose: 1 tab Sevelamer Carbonate (Renvela -) 1,600 mg PO TIDCM [facility] Last Admin: 12/29/17 11:19 Dose: Not Given Silver Sulfadiazine (Silvadene -) 1 applic TP DAILY [facility] Last Admin: 12/28/17 11:00 Dose: 1 applic Sodium Thiosulfate (Sodium Thiosulfate) 25 gm IVPB MoWeFr@0800 [facility] Last Admin: 12/28/17 09:07 Dose: 25 gm Last Vital Signs Temp Pulse Resp BP Pulse Ox 98.2 F 109 H 18 90/55 100 12/29/17 09:40 12/29/17 10:45 12/29/17 10:45 12/29/17 10:45 12/28/17 21:00 lungs clear heart reg abd soft nontender ext no edema CBC, BMP 12/24/17 06:40 12/24/17 06:40 IMP ESRD on HD s/p Sepsis with LE wound Calciphaylaxis CKD Related Anemia Hypothyroidism toolerating hemofiltration for dialysis tomorrow continue sodium thiosulfate, renvela
[2017-12-29] MEDS: METOPROLOL TARTRATE 25 MG TABLET (FP) PO SCH (12:44)
[2017-12-29] MEDS: PANTOPRAZOLE 40 MG TABLET (FP) PO SCH (12:44)
[2017-12-29] MEDS: AMINO ACIDS/PROTEIN HYDROLYS 30 ML LIQUID.PKT PO SCH ×2 (12:44→17:02)
[2017-12-29] MEDS: APIXABAN 2.5 MG TABLET PO SCH ×2 (12:44→21:39)
[2017-12-29] MEDS: SENNOSIDES 8.6MG TABLET (FP) PO SCH (12:44)
[2017-12-29] MEDS: CEFEPIME HCL/D5W 1 GM/50 ML BAG IVPB SCH (12:44)
[2017-12-29] MEDS: ESCITALOPRAM OXALATE 10 MG TABLET (FP) PO SCH (12:44)
[2017-12-29] MEDS: ASPIRIN 81 MG CHEWABLE TABLETS PO SCH (12:44)
[2017-12-29] MEDS: LIDOCAINE 5% TOPICAL PATCH TP SCH (12:45)
[2017-12-29] MEDS: SILVER SULFADIAZINE 1% TOP CREAM 50 GM JAR TP SCH (13:12)
--- NOTE | 2017-12-29 13:26 | PN ---
Progress Note (short form) - Note Progress Note: PULMONARY Dialyzed this AM. Breathing improving. +nonproductive cough. No fevers. Last Vital Signs Temp Pulse Resp BP Pulse Ox 98.2 F 107 H 18 114/61 99 12/29/17 09:40 12/29/17 12:20 12/29/17 12:20 12/29/17 12:20 12/29/17 09:00 Gen: mildly tachypneic at rest Heart: irregular Lung: bilateral rhonchi Abd: soft, nontender Ext: less edema, R AKA CBC, BMP 12/29/17 07:00 12/29/17 09:55 Active Medications Albuterol/Ipratropium (Duoneb -) 1 amp NEB Q6H PRN PRN Reason: SOB/WHEEZING Last Admin: 12/29/17 07:34 Dose: 1 amp Alprazolam (Xanax -) 0.5 mg PO Q8H PRN PRN Reason: ANXIETY Last Admin: 12/28/17 21:21 Dose: 0.5 mg Amino Acids (Prosource No Carb Liquid Pkt) 30 ml PO BID@0800,1730 [facility] Last Admin: 12/29/17 12:44 Dose: 30 ml Apixaban (Eliquis -) 2.5 mg PO BID [facility] Last Admin: 12/29/17 12:44 Dose: 2.5 mg Aspirin (Asa -) 81 mg PO DAILY [facility] Last Admin: 12/29/17 12:44 Dose: 81 mg Atorvastatin Calcium (Lipitor -) 80 mg PO HS [facility] Last Admin: 12/28/17 21:21 Dose: 80 mg Bisacodyl (Dulcolax -) 10 mg PO DAILY PRN PRN Reason: CONSTIPATION Last Admin: 12/28/17 21:21 Dose: 10 mg Escitalopram Oxalate (Lexapro -) 10 mg PO DAILY [facility] Last Admin: 12/29/17 12:44 Dose: 10 mg Guaifenesin (Robitussin Dm -) 10 ml PO Q6H PRN PRN Reason: COUGH Last Admin: 12/26/17 21:54 Dose: 10 ml Cefepime HCl (Maxipime 1 Gm Premix Ivpb) 1 gm in 50 mls @ 100 mls/hr IVPB DAILY [facility] Last Admin: 12/29/17 12:44 Dose: 100 mls/hr Sodium Chloride (Normal Saline -) 250 mls @ 3,000 mls/hr IV PRN PRN PRN Reason: Hypotension during Dialysis Stop: 12/29/17 23:07 Insulin Aspart (Novolog Vial Sliding Scale -) 1 vial SQ ACHS [facility] PRN Reason: Protocol Last Admin: 12/29/17 11:39 Dose: 4 units Levothyroxine Sodium 112 mcg/ (Levothyroxine Sodium 25 mcg) 137 mcg PO DAILY@ 0700 [facility] Last Admin: 12/29/17 06:25 Dose: 137 mcg Lidocaine (Lidoderm Patch -) 1 patch TP DAILY [facility] Last Admin: 12/29/17 12:45 Dose: 1 patch Metoprolol Tartrate (Lopressor -) 12.5 mg PO DAILY [facility] Last Admin: 12/29/17 12:44 Dose: 12.5 mg Miscellaneous (Lidoderm Patch Removal) 1 each MC DAILY@2200 [facility] Last Admin: 12/28/17 21:24 Dose: 1 each Nystatin (Mycostatin Cream -) 1 applic TP DAILY [facility] Last Admin: 12/29/17 10:00 Dose: Not Given Oxycodone HCl (Roxicodone -) 5 mg PO Q6H PRN PRN Reason: PAIN LEVEL 6-10 Last Admin: 12/29/17 13:00 Dose: 5 mg Pantoprazole Sodium (Protonix -) 40 mg PO DAILY [facility] Last Admin: 12/29/17 12:44 Dose: 40 mg Senna (Senna -) 1 tab PO DAILY [facility] Last Admin: 12/29/17 12:44 Dose: 1 tab Sevelamer Carbonate (Renvela -) 1,600 mg PO TIDCM [facility] Last Admin: 12/29/17 12:00 Dose: Not Given Silver Sulfadiazine (Silvadene -) 1 applic TP DAILY [facility] Last Admin: 12/29/17 13:12 Dose: 1 applic Sodium Thiosulfate (Sodium Thiosulfate) 25 gm IVPB MoWeFr@0800 [facility] Last Admin: 12/28/17 09:07 Dose: 25 gm A/P Atrial Fibrillation with RVR r/o Sepsis ESRD on HD PAD CAD HTN DM Hyperlipidemia - monitoring off antibiotics - monitor fever curve, WBC trend - HD per renal - rate control - continue anticoagulation - wound care - continue telemetry monitoring
[2017-12-29] MEDS: BISACODYL 5 MG TABLET.DR (FP) PO PRN (17:02)
--- NOTE | 2017-12-29 20:25 | PN ---
Progress Note (short form) - Note Progress Note: 72 year old female admitted with severe pain, swelling and tenderness to touch involving the left thigh. 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 Known case of CAD, s/p UT, s/p PCI/ Stenting, ESRD-HD, h/o atrial fib, advanced AV block, s/p PPM, s/p rt. AKA, partial amputation of the left foot. Patient feels better today, still has a cough but unable to expectorate, still has pain involving the left thigh, swelling is less pronounced.CTA of the upper extremities reveal high stenosis of the left and right radial arteriesand generalised athrosclerosis( see report). Active Medications Generic Name Dose Route Start Last Admin Trade Name Freq PRN Reason Stop Dose Admin Albuterol/Ipratropium 1 amp 12/25/17 15:46 12/29/17 13:55 Duoneb - NEB 1 amp Q6H PRN Administration SOB/WHEEZING Alprazolam 0.5 mg 12/26/17 10:59 12/28/17 21:21 Xanax - PO 0.5 mg Q8H PRN Administration ANXIETY Amino Acids 30 ml 12/22/17 08:00 12/29/17 17:02 Prosource No Carb Liquid Pkt PO 30 ml BID@0800,1730 [facility] Administration Apixaban 2.5 mg 12/24/17 11:15 12/29/17 12:44 Eliquis - PO 2.5 mg BID [facility] Administration Aspirin 81 mg 12/22/17 10:00 12/29/17 12:44 Asa - PO 81 mg DAILY [facility] Administration Atorvastatin Calcium 80 mg 12/25/17 22:00 12/28/17 21:21 Lipitor - PO 80 mg HS [facility] Administration Bisacodyl 10 mg 12/24/17 11:15 12/29/17 17:02 Dulcolax - PO 10 mg DAILY PRN Administration CONSTIPATION Escitalopram Oxalate 10 mg 12/26/17 11:00 12/29/17 12:44 Lexapro - PO 10 mg DAILY [facility] Administration Guaifenesin 10 ml 12/23/17 17:34 12/26/17 21:54 Robitussin Dm - PO 10 ml Q6H PRN Administration COUGH Cefepime HCl 1 gm in 50 mls @ 100 mls/hr 12/28/17 18:45 12/29/17 12:44 Maxipime 1 Gm Premix Ivpb IVPB 100 mls/hr DAILY [facility] Administration Sodium Chloride 250 mls @ 3,000 mls/hr 12/28/17 23:07 Normal Saline - IV 12/29/17 23:07 PRN PRN Hypotension during Dialysis Insulin Aspart 1 vial 12/22/17 07:00 12/29/17 17:02 Novolog Vial Sliding Scale - SQ 2 units ACHS [facility] Administration Protocol Levothyroxine Sodium 112 mcg/ 137 mcg 12/25/17 07:00 12/29/17 06:25 Levothyroxine Sodium 25 mcg PO 137 mcg DAILY@0700 [facility] Administration Lidocaine 1 patch 12/24/17 12:30 12/29/17 12:45 Lidoderm Patch - TP 1 patch DAILY [facility] Administration Metoprolol Tartrate 12.5 mg 12/22/17 10:00 12/29/17 12:44 Lopressor - PO 12.5 mg DAILY [facility] Administration Miscellaneous 1 each 12/24/17 22:00 12/28/17 21:24 Lidoderm Patch Removal MC 1 each DAILY@2200 [facility] Administration Nystatin 1 applic 12/22/17 10:00 12/29/17 10:00 Mycostatin Cream - TP Not Given DAILY [facility] Oxycodone HCl 5 mg 12/25/17 15:45 12/29/17 13:00 Roxicodone - PO 5 mg Q6H PRN Administration PAIN LEVEL 6-10 Pantoprazole Sodium 40 mg 12/22/17 10:00 12/29/17 12:44 Protonix - PO 40 mg DAILY [facility] Administration Senna 1 tab 12/22/17 10:00 12/29/17 12:44 Senna - PO 1 tab DAILY [facility] Administration Sevelamer Carbonate 1,600 mg 12/22/17 17:30 12/29/17 17:03 Renvela - PO Not Given TIDCM [facility] Silver Sulfadiazine 1 applic 12/22/17 10:00 12/29/17 13:12 Silvadene - TP 1 applic DAILY [facility] Administration Sodium Thiosulfate 25 gm 12/23/17 08:00 12/28/17 09:07 Sodium Thiosulfate IVPB 25 gm [id number] YOAN Administration 72 year old female in respiratory distress, pallor +, no cyanosis, no clubbing or jaundice. Last Vital Signs Temp Pulse Resp BP Pulse Ox 97.3 F L 108 H 18 136/87 99 12/29/17 18:00 12/29/17 18:00 12/29/17 18:00 12/29/17 18:00 12/29/17 09:00 NECK: Supple, no JVD, +ve HJR carotids 1-2+, no bruit appreciated. HEART: PMI in the 5th ICS, gradeI/ LINDA 2nd Rt. ICS, no gallops. LUNGS: Bilateral coarse creps. ABDOMEN: Soft, nontender, no organomegaly. Firm lesions involving the left abdominal wall. No masses felt. EXT: AKA, partial amputation of the Lt. foot. Tenderness and swelling of the left thigh persists, 1+ Lt. pretibial edema. CBC, BMP 12/29/17 07:00 12/29/17 09:55 IMPRESSION: 1.Recent CHF. 2.Atrial fib. with rapid ventricular response. 3.Recurring vasculitis, with new lesion involving the rt. index finger( after warfarin had been d/c'd). Etiology remains unclear. 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 b).Rheumatogical disease. c).Other Vasculitides. d).Medications. 2.CAD, s/p PCI/Stenting. 3.IDDM with multi system involvement. 4.ESRD-HD. 5.LV systolic dysfunction. 6.Anemia, probably of chronic disease. 7.S/p PPM for Advanced AV block. 8.Multiple amputations. 9.Dyslipidemia. 10.Reddness,tendernes and swelling of the Lt. lateral calf,cellulitis needs exclusion, 11.See extensive CTA report. RECOMMENDATIONS: 1.vascular surgical evaluation 2.Rheumatological evaluation. 3.Heme/Oncological consultation. 4.BETTE,RA factor. 5.ANCA. 6.Close F/u of BMP. 7. pulmonary PT.
[2017-12-29] MEDS ORDERED: INSULIN (NOVOLOG) ASPART 100 UNITS/ML 10ML VIAL ONE (21:38)
[2017-12-29] MEDS: ATORVASTATIN CA 80 MG TABLET (FP) PO SCH (21:39)
[2017-12-29] MEDS: ALPRAZolam 0.25 MG TABLET PO PRN (21:39)
[2017-12-29] MEDS: LIDOCAINE PATCH REMOVAL MC SCH (21:47)
[2017-12-30] MEDS ORDERED: LEVOTHYROXINE NA 25 MCG TABLET (FP) ONE (06:26)
[2017-12-30] MEDS ORDERED: LEVOTHYROXINE NA 112 MCG TABLET (FP) ONE (06:26)
[2017-12-30] MEDS ORDERED: INSULIN (NOVOLOG) ASPART 100 UNITS/ML 10ML VIAL ONE ×3 (06:26→21:16)
[2017-12-30] MEDS: INSULIN SLIDING SCALE (NOVOLOG) 1 VIAL SQ SCH ×4 (06:29→22:10)
[2017-12-30] MEDS: oxyCODONE HCL 5 MG TABLET PO PRN (06:30)
[2017-12-30] MEDS: LEVOTHYROXINE 112 MCG, LEVOTHYROXINE 25 MCG PO SCH (06:30)
[2017-12-30] MEDS ORDERED: SODIUM CHLORIDE 250 ML IV PRN (07:04)
[2017-12-30] MEDS: ALBUTEROL SO4 2.5/IPRATROPIUM 0.5 INH SOL 3 ML VIAL.NEB. NEB PRN ×2 (07:21→19:22)
[2017-12-30 07:31] LABS: HEMATOCRIT 31.6 % (32.4-45.2); HEMOGLOBIN 9.9 GM/dL (10.7-15.3); MCH 32.4 pg (25.7-33.7); MCHC 31.4 g/dl (32.0-36.0); MEAN CELL VOLUME 103.2 fl (80-96); MEAN PLT VOLUME 8.5 fl (7.5-11.1); PLATELET COUNT 281 K/MM3 (134-434); RBC 3.06 M/mm3 (3.60-5.2); RDW 22.5 % (11.6-15.6); WHITE BLOOD COUNT 10.6 K/mm3 (4.0-10.0)
[2017-12-30 08:04] LABS: CHLORIDE 103 mmol/L (98-107); SODIUM 142 mmol/L (136-145)
[2017-12-30 08:09] LABS: ALBUMIN 1.6 g/dl (3.4-5.0); ALK PHOS 209 U/L (45-117); ANION GAP 10 (8-16); BILIRUBIN,TOTAL 0.2 mg/dL (0.2-1.0); BLOOD UREA NITROGEN 31 mg/dL (7-18); CALCIUM 7.2 mg/dL (8.5-10.1); CO2 29 mmol/L (21-32); CREATININE 2.9 mg/dL (0.55-1.02); GLUCOSE,RANDOM 143 mg/dL (74-106); SGOT/AST 15 U/L (15-37); SGPT/ALT 13 U/L (12-78); TOT PROT 5.3 g/dl (6.4-8.2)
[2017-12-30] MEDS: ESCITALOPRAM OXALATE 10 MG TABLET (FP) PO SCH (09:09)
[2017-12-30] MEDS: ASPIRIN 81 MG CHEWABLE TABLETS PO SCH (09:09)
[2017-12-30] MEDS: APIXABAN 2.5 MG TABLET PO SCH ×2 (09:09→22:10)
[2017-12-30] MEDS: SENNOSIDES 8.6MG TABLET (FP) PO SCH (09:09)
[2017-12-30] MEDS: AMINO ACIDS/PROTEIN HYDROLYS 30 ML LIQUID.PKT PO SCH ×2 (09:10→18:09)
[2017-12-30] MEDS: SEVELAMER CARBONATE 800 MG TAB (FP) PO SCH ×3 (09:10→18:09)
[2017-12-30] MEDS: LIDOCAINE 5% TOPICAL PATCH TP SCH (09:10)
[2017-12-30] MEDS: METOPROLOL TARTRATE 25 MG TABLET (FP) PO SCH (09:10)
[2017-12-30] MEDS: NYSTATIN 100,000 UNIT/GM TOPICAL CREAM 15 GM TUBE TP SCH (09:10)
[2017-12-30] MEDS: CEFEPIME HCL/D5W 1 GM/50 ML BAG IVPB SCH (09:10)
[2017-12-30] MEDS: PANTOPRAZOLE 40 MG TABLET (FP) PO SCH (09:11)
[2017-12-30] MEDS: SILVER SULFADIAZINE 1% TOP CREAM 50 GM JAR TP SCH (09:11)
[2017-12-30] MEDS: ALPRAZolam 0.25 MG TABLET PO PRN ×2 (09:22→22:10)
[2017-12-30] MEDS: BISACODYL 5 MG TABLET.DR (FP) PO PRN (09:22)
--- NOTE | 2017-12-30 09:39 | PN ---
Progress Note (short form) - Note Progress Note: asked to reevaluate for chest congestion by Dr Bernardo productive cough yellow sputum occasional wheezing improved with nebs continued left leg pain Vital Signs Period Temp Pulse Resp BP Sys/Cordero Pulse Ox Last 24 Hr 97.3 F-98.2 F 94-112 18-20 90-160/47-107 99 cor-rrr lungs bilateral rhonchi abd soft, soft tissue induration LLQ unchanged ext foot bandaged hand bandaged CBC, BMP 12/30/17 06:30 12/30/17 06:30 cxray- HOLLY/LLL infiltrate on cxray a/p HCAP- continue cefepime/nebs, encourage incentive spirometry not sure if this is pneumonia or atelectasis suggest chest PT as well sputum culture esrd/hd severe PAD overall doing poorly d/w patient and daughter at bedside would consider hospice evaluation- will d/w Dr Galarza/Ankur-severe pain, declining physical health our interventions appear limited- palliative care eval has been requested Problem List - Problems (1) Leucocytosis Code(s): D72.829 - ELEVATED WHITE BLOOD CELL COUNT, UNSPECIFIED (2) Leg pain, left Code(s): M79.605 - PAIN IN LEFT LEG (3) History of ESBL Klebsiella pneumoniae infection Code(s): Z86.19 - PERSONAL HISTORY OF OTHER INFECTIOUS AND PARASITIC DISEASES (4) ESRD on hemodialysis Code(s): N18.6 - END STAGE RENAL DISEASE; Z99.2 - DEPENDENCE ON RENAL DIALYSIS
--- NOTE | 2017-12-30 11:03 | PN ---
Progress Note (short form) - Note Progress Note: 72 year old female admitted with severe pain, swelling and tenderness to touch involving the left thigh. 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 Known case of CAD, s/p MA, s/p PCI/ Stenting, ESRD-HD, h/o atrial fib, advanced AV block, s/p PPM, s/p rt. AKA, partial amputation of the left foot. Still coughing and unable to expectorate unable to expectorate, persistent pain involving the left thigh, swelling is less pronounced. CTA of the upper extremities reveal high grade stenosis of the left and right radial arteries, besides extensive generalised athrosclerosis. Active Medications Albuterol/Ipratropium (Duoneb -) 1 amp NEB Q6H PRN PRN Reason: SOB/WHEEZING Last Admin: 12/30/17 07:21 Dose: 1 amp Alprazolam (Xanax -) 0.5 mg PO Q8H PRN PRN Reason: ANXIETY Last Admin: 12/30/17 09:22 Dose: 0.5 mg Amino Acids (Prosource No Carb Liquid Pkt) 30 ml PO BID@0800,1730 [facility] Last Admin: 12/30/17 09:10 Dose: 30 ml Apixaban (Eliquis -) 2.5 mg PO BID [facility] Last Admin: 12/30/17 09:09 Dose: 2.5 mg Aspirin (Asa -) 81 mg PO DAILY [facility] Last Admin: 12/30/17 09:09 Dose: 81 mg Atorvastatin Calcium (Lipitor -) 80 mg PO HS [facility] Last Admin: 12/29/17 21:39 Dose: 80 mg Bisacodyl (Dulcolax -) 10 mg PO DAILY PRN PRN Reason: CONSTIPATION Last Admin: 12/30/17 09:22 Dose: 10 mg Escitalopram Oxalate (Lexapro -) 10 mg PO DAILY [facility] Last Admin: 12/30/17 09:09 Dose: 10 mg Guaifenesin (Robitussin Dm -) 10 ml PO Q6H PRN PRN Reason: COUGH Last Admin: 12/26/17 21:54 Dose: 10 ml Cefepime HCl (Maxipime 1 Gm Premix Ivpb) 1 gm in 50 mls @ 100 mls/hr IVPB DAILY [facility] Last Admin: 12/30/17 09:10 Dose: 100 mls/hr Sodium Chloride (Normal Saline -) 250 mls @ 3,000 mls/hr IV PRN PRN PRN Reason: Hypotension during Dialysis Insulin Aspart (Novolog Vial Sliding Scale -) 1 vial SQ ACHS YOAN PRN Reason: Protocol Last Admin: 12/30/17 06:29 Dose: 2 units Levothyroxine Sodium 112 mcg/ (Levothyroxine Sodium 25 mcg) 137 mcg PO DAILY@ 0700 [facility] Last Admin: 12/30/17 06:30 Dose: 137 mcg Lidocaine (Lidoderm Patch -) 1 patch TP DAILY [facility] Last Admin: 12/30/17 09:10 Dose: 1 patch Metoprolol Tartrate (Lopressor -) 12.5 mg PO DAILY [facility] Last Admin: 12/30/17 09:10 Dose: Not Given Miscellaneous (Lidoderm Patch Removal) 1 each MC DAILY@2200 [facility] Last Admin: 12/29/17 21:47 Dose: 1 each Nystatin (Mycostatin Cream -) 1 applic TP DAILY [facility] Last Admin: 12/30/17 09:10 Dose: 1 applic Oxycodone HCl (Roxicodone -) 5 mg PO Q6H PRN PRN Reason: PAIN LEVEL 6-10 Last Admin: 12/30/17 06:30 Dose: 5 mg Pantoprazole Sodium (Protonix -) 40 mg PO DAILY [facility] Last Admin: 12/30/17 09:11 Dose: 40 mg Senna (Senna -) 1 tab PO DAILY [facility] Last Admin: 12/30/17 09:09 Dose: 1 tab Sevelamer Carbonate (Renvela -) 1,600 mg PO TIDCM [facility] Last Admin: 12/30/17 09:10 Dose: Not Given Silver Sulfadiazine (Silvadene -) 1 applic TP DAILY [facility] Last Admin: 12/30/17 09:11 Dose: 1 applic Sodium Thiosulfate (Sodium Thiosulfate) 25 gm IVPB MoWeFr@0800 [facility] Last Admin: 12/28/17 09:07 Dose: 25 gm 72 year old female in respiratory distress, pallor +, no cyanosis, no clubbing or jaundice. Last Vital Signs Temp Pulse Resp BP Pulse Ox 97.6 F 98 H 20 137/99 99 12/30/17 06:00 12/30/17 06:00 12/30/17 06:00 12/30/17 06:00 12/29/17 20:49 NECK: Supple, no JVD, +ve HJR carotids 1-2+, no bruit appreciated. HEART: PMI in the 5th ICS, gradeI/ LINDA 2nd Rt. ICS, no gallops. LUNGS: Coarse bilateral creps and scattered Wheezing. ABDOMEN: Soft, nontender, no organomegaly. Firm lesions involving the left abdominal wall. No masses felt. EXT: AKA, partial amputation of the Lt. foot. Tenderness and swelling of the left thigh persists, 1+ Lt. pretibial edema. CBCD WBC 10.6 K/mm3 (4.0-10.0) H 12/30/17 06:30 RBC 3.06 M/mm3 (3.60-5.2) L 12/30/17 06:30 Hgb 9.9 GM/dL (10.7-15.3) L 12/30/17 06:30 Hct 31.6 % (32.4-45.2) L 12/30/17 06:30 MCV 103.2 fl (80-96) H 12/30/17 06:30 MCHC 31.4 g/dl (32.0-36.0) L 12/30/17 06:30 RDW 22.5 % (11.6-15.6) H 12/30/17 06:30 Plt Count 281 K/MM3 (134-434) 12/30/17 06:30 MPV 8.5 fl (7.5-11.1) 12/30/17 06:30 CMP Sodium 142 mmol/L (136-145) 12/30/17 06:30 Potassium 4.0 mmol/L (3.5-5.1) 12/30/17 06:30 Chloride 103 mmol/L (98-107) 12/30/17 06:30 Carbon Dioxide 29 mmol/L (21-32) 12/30/17 06:30 Anion Gap 10 (8-16) 12/30/17 06:30 BUN 31 mg/dL (7-18) H 12/30/17 06:30 Creatinine 2.9 mg/dL (0.55-1.02) H 12/30/17 06:30 Creat Clearance w eGFR 15.86 (>60) 12/30/17 06:30 Calcium 7.2 mg/dL (8.5-10.1) L 12/30/17 06:30 Total Bilirubin 0.2 mg/dL (0.2-1.0) D 12/30/17 06:30 AST 15 U/L (15-37) 12/30/17 06:30 ALT 13 U/L (12-78) 12/30/17 06:30 Alkaline Phosphatase 209 U/L (45-117) H 12/30/17 06:30 Total Protein 5.3 g/dl (6.4-8.2) L 12/30/17 06:30 Albumin 1.6 g/dl (3.4-5.0) L 12/30/17 06:30 IMPRESSION: 1.CAD, s/p multivessel PCI/stenting 2.Atrial fib. with rapid ventricular response. 3.Recurring vasculitis, with new lesion involving the rt. index finger( after warfarin had been d/c'd). Etiology remains unclear. 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 b).Rheumatogical disease. c).Other Vasculitides. 3.CAD, s/p PCI/Stenting. 4.IDDM with multi system involvement. 5.ESRD-HD. 6.LV systolic dysfunction. 7.Anemia, probably of chronic disease. 8.S/p PPM for Advanced AV block. 9.Multiple amputations. 10.Dyslipidemia. 11.Reddness,tendernes and swelling of left thigh is subsiding. RECOMMENDATIONS: 1.vascular surgical evaluation 2.Rheumatological evaluation. 3.Heme/Oncological consultation. 4.Close F/u of BMP. 5.Pulmonary PT.
--- NOTE | 2017-12-30 11:50 | PN ---
Progress Note (short form) - Note Progress Note: pt seen/ examined. feels better decreased pain. daughter at bedside lengthy talk with her. she says she in not ready to give up wants mom to be seen by oncologist also request decrease dose of xanax-- all f/u noted Vital Signs Temp 97.6 F 12/30/17 06:00 Pulse 98 H 12/30/17 06:00 Resp 20 12/30/17 06:00 BP 137/99 12/30/17 06:00 Pulse Ox 99 12/29/17 20:49 Intake & Output 12/29/17 12/29/17 12/30/17 11:59 23:59 11:59 Intake Total 737 640 250 Balance 737 640 250 Weight 177 lb 4 oz Intake: Oral 737 640 250 Other: Voiding Method Diaper Diaper Diaper # Unmeasured Voids Void 0 Weight Measurement Method Patient Lift Scale Active Medications Albuterol/Ipratropium (Duoneb -) 1 amp NEB Q6H PRN PRN Reason: SOB/WHEEZING Last Admin: 12/30/17 07:21 Dose: 1 amp Alprazolam (Xanax -) 0.5 mg PO Q8H PRN PRN Reason: ANXIETY Last Admin: 12/30/17 09:22 Dose: 0.5 mg Amino Acids (Prosource No Carb Liquid Pkt) 30 ml PO BID@0800,1730 [facility] Last Admin: 12/30/17 09:10 Dose: 30 ml Apixaban (Eliquis -) 2.5 mg PO BID [facility] Last Admin: 12/30/17 09:09 Dose: 2.5 mg Aspirin (Asa -) 81 mg PO DAILY [facility] Last Admin: 12/30/17 09:09 Dose: 81 mg Atorvastatin Calcium (Lipitor -) 80 mg PO HS [facility] Last Admin: 12/29/17 21:39 Dose: 80 mg Bisacodyl (Dulcolax -) 10 mg PO DAILY PRN PRN Reason: CONSTIPATION Last Admin: 12/30/17 09:22 Dose: 10 mg Escitalopram Oxalate (Lexapro -) 10 mg PO DAILY [facility] Last Admin: 12/30/17 09:09 Dose: 10 mg Guaifenesin (Robitussin Dm -) 10 ml PO Q6H PRN PRN Reason: COUGH Last Admin: 12/26/17 21:54 Dose: 10 ml Cefepime HCl (Maxipime 1 Gm Premix Ivpb) 1 gm in 50 mls @ 100 mls/hr IVPB DAILY [facility] Last Admin: 12/30/17 09:10 Dose: 100 mls/hr Sodium Chloride (Normal Saline -) 250 mls @ 3,000 mls/hr IV PRN PRN PRN Reason: Hypotension during Dialysis Insulin Aspart (Novolog Vial Sliding Scale -) 1 vial SQ ACHS YOAN PRN Reason: Protocol Last Admin: 12/30/17 06:29 Dose: 2 units Levothyroxine Sodium 112 mcg/ (Levothyroxine Sodium 25 mcg) 137 mcg PO DAILY@ 0700 [facility] Last Admin: 12/30/17 06:30 Dose: 137 mcg Lidocaine (Lidoderm Patch -) 1 patch TP DAILY [facility] Last Admin: 12/30/17 09:10 Dose: 1 patch Metoprolol Tartrate (Lopressor -) 12.5 mg PO DAILY [facility] Last Admin: 12/30/17 09:10 Dose: Not Given Miscellaneous (Lidoderm Patch Removal) 1 each MC DAILY@2200 [facility] Last Admin: 12/29/17 21:47 Dose: 1 each Nystatin (Mycostatin Cream -) 1 applic TP DAILY [facility] Last Admin: 12/30/17 09:10 Dose: 1 applic Oxycodone HCl (Roxicodone -) 5 mg PO Q6H PRN PRN Reason: PAIN LEVEL 6-10 Last Admin: 12/30/17 06:30 Dose: 5 mg Pantoprazole Sodium (Protonix -) 40 mg PO DAILY [facility] Last Admin: 12/30/17 09:11 Dose: 40 mg Senna (Senna -) 1 tab PO DAILY [facility] Last Admin: 12/30/17 09:09 Dose: 1 tab Sevelamer Carbonate (Renvela -) 1,600 mg PO TIDCM [facility] Last Admin: 12/30/17 09:10 Dose: Not Given Silver Sulfadiazine (Silvadene -) 1 applic TP DAILY [facility] Last Admin: 12/30/17 09:11 Dose: 1 applic Sodium Thiosulfate (Sodium Thiosulfate) 25 gm IVPB MoWeFr@0800 [facility] Last Admin: 12/28/17 09:07 Dose: 25 gm CBC, BMP 12/30/17 06:30 12/30/17 06:30 Microbiology 12/29/17 09:55 Blood Culture - Preliminary Blood - Kate Cath NO GROWTH OBTAINED AFTER 24 HOURS, INCUBATION TO CONTINUE FOR 4 DAYS. 12/29/17 09:26 Blood Culture - Preliminary Blood - Peripheral Venous NO GROWTH OBTAINED AFTER 24 HOURS, INCUBATION TO CONTINUE FOR 4 DAYS. Physical Exam . Constitutional: Yes: No Distress. weak. Cardiovascular: Yes: Pulse Irregular, Murmur Respiratory: Yes: bilateral rhonchi Gastrointestinal: Yes: Normal Bowel Sounds, Hemorrhoids. No: Tenderness Extremities: Yes: Other (tender left leg) Edema: No Assessment/Plan overall condition same continue present care continue abx continue other meds decrease xanax discussed with Dr. Esposito also. will follow time spend 40 min. Problem List - Problems (1) ESRD on hemodialysis Code(s): N18.6 - END STAGE RENAL DISEASE; Z99.2 - DEPENDENCE ON RENAL DIALYSIS (2) Left leg cellulitis Code(s): L03.116 - CELLULITIS OF LEFT LOWER LIMB (3) Leukocytosis Code(s): D72.829 - ELEVATED WHITE BLOOD CELL COUNT, UNSPECIFIED (4) Status post transmetatarsal amputation of left foot Code(s): Z89.432 - ACQUIRED ABSENCE OF LEFT FOOT (5) Atrial fibrillation Code(s): I48.91 - UNSPECIFIED ATRIAL FIBRILLATION Qualifiers: (6) CAD (coronary artery disease) Code(s): I25.10 - ATHSCL HEART DISEASE OF [place] CORONARY ARTERY W/O ANG PCTRS Qualifiers: Coronary Disease-Associated Artery/Lesion type: [place] artery [place] vs. transplanted heart: [place] heart Associated angina: without angina Qualified Code(s): I25.10 - Atherosclerotic heart disease of [place] coronary artery without angina pectoris (7) DM type 2 causing complication Code(s): E11.8 - TYPE 2 DIABETES MELLITUS WITH UNSPECIFIED COMPLICATIONS Qualifiers: Diabetes mellitus skilled nursing insulin use: with ferry terminal agent use Qualified Code( s): E11.8 - Type 2 diabetes mellitus with unspecified complications; Z79.4 - rat exterminator (current) use of insulin; Z79.4 - longterm (current) use of insulin; Z79.4 - longterm (current) use of insulin; Z79.4 - rat exterminator (current) use of insulin (8) Foot amputation status Code(s): Z89.439 - ACQUIRED ABSENCE OF UNSPECIFIED FOOT (9) Hypothyroidism Code(s): E03.9 - HYPOTHYROIDISM, UNSPECIFIED Qualifiers:
--- NOTE | 2017-12-30 11:51 | PN ---
Progress Note, Physician History of Present Illness: pulmonary alert,feeling better,-resp distress - Current Medication List Current Medications: Active Medications Albuterol/Ipratropium (Duoneb -) 1 amp NEB Q6H PRN PRN Reason: SOB/WHEEZING Last Admin: 12/30/17 07:21 Dose: 1 amp Alprazolam (Xanax -) 0.5 mg PO Q8H PRN PRN Reason: ANXIETY Last Admin: 12/30/17 09:22 Dose: 0.5 mg Amino Acids (Prosource No Carb Liquid Pkt) 30 ml PO BID@0800,1730 [facility] Last Admin: 12/30/17 09:10 Dose: 30 ml Apixaban (Eliquis -) 2.5 mg PO BID [facility] Last Admin: 12/30/17 09:09 Dose: 2.5 mg Aspirin (Asa -) 81 mg PO DAILY [facility] Last Admin: 12/30/17 09:09 Dose: 81 mg Atorvastatin Calcium (Lipitor -) 80 mg PO HS [facility] Last Admin: 12/29/17 21:39 Dose: 80 mg Bisacodyl (Dulcolax -) 10 mg PO DAILY PRN PRN Reason: CONSTIPATION Last Admin: 12/30/17 09:22 Dose: 10 mg Escitalopram Oxalate (Lexapro -) 10 mg PO DAILY [facility] Last Admin: 12/30/17 09:09 Dose: 10 mg Guaifenesin (Robitussin Dm -) 10 ml PO Q6H PRN PRN Reason: COUGH Last Admin: 12/26/17 21:54 Dose: 10 ml Cefepime HCl (Maxipime 1 Gm Premix Ivpb) 1 gm in 50 mls @ 100 mls/hr IVPB DAILY [facility] Last Admin: 12/30/17 09:10 Dose: 100 mls/hr Sodium Chloride (Normal Saline -) 250 mls @ 3,000 mls/hr IV PRN PRN PRN Reason: Hypotension during Dialysis Insulin Aspart (Novolog Vial Sliding Scale -) 1 vial SQ ACHS [facility] PRN Reason: Protocol Last Admin: 12/30/17 06:29 Dose: 2 units Levothyroxine Sodium 112 mcg/ (Levothyroxine Sodium 25 mcg) 137 mcg PO DAILY@ 0700 [facility] Last Admin: 12/30/17 06:30 Dose: 137 mcg Lidocaine (Lidoderm Patch -) 1 patch TP DAILY [facility] Last Admin: 12/30/17 09:10 Dose: 1 patch Metoprolol Tartrate (Lopressor -) 12.5 mg PO DAILY [facility] Last Admin: 12/30/17 09:10 Dose: Not Given Miscellaneous (Lidoderm Patch Removal) 1 each MC DAILY@2200 [facility] Last Admin: 12/29/17 21:47 Dose: 1 each Nystatin (Mycostatin Cream -) 1 applic TP DAILY [facility] Last Admin: 12/30/17 09:10 Dose: 1 applic Oxycodone HCl (Roxicodone -) 5 mg PO Q6H PRN PRN Reason: PAIN LEVEL 6-10 Last Admin: 12/30/17 06:30 Dose: 5 mg Pantoprazole Sodium (Protonix -) 40 mg PO DAILY [facility] Last Admin: 12/30/17 09:11 Dose: 40 mg Senna (Senna -) 1 tab PO DAILY [facility] Last Admin: 12/30/17 09:09 Dose: 1 tab Sevelamer Carbonate (Renvela -) 1,600 mg PO TIDCM [facility] Last Admin: 12/30/17 09:10 Dose: Not Given Silver Sulfadiazine (Silvadene -) 1 applic TP DAILY [facility] Last Admin: 12/30/17 09:11 Dose: 1 applic Sodium Thiosulfate (Sodium Thiosulfate) 25 gm IVPB MoWeFr@0800 [facility] Last Admin: 12/28/17 09:07 Dose: 25 gm - Objective Vital Signs: Vital Signs Temperature 97.6 F 12/30/17 06:00 Pulse Rate 98 H 12/30/17 06:00 Respiratory Rate 20 12/30/17 06:00 Blood Pressure 137/99 12/30/17 06:00 O2 Sat by Pulse Oximetry (%) 99 12/29/17 20:49 Constitutional: Yes: Well Nourished, Calm Eyes: Yes: WNL HENT: Yes: WNL Neck: Yes: WNL Cardiovascular: Yes: Regular Rate and Rhythm, S1, S2 Respiratory: Yes: Wheezes (bilateral wheezes) Gastrointestinal: Yes: Normal Bowel Sounds, Soft Extremities: Yes: WNL Edema: No Labs: CBC, BMP 12/30/17 06:30 12/30/17 06:30 INR, PTT INR 2.23 (0.82-1.09) H 12/22/17 12:57 Problem List - Problems (1) Dyspnea Code(s): R06.00 - DYSPNEA, UNSPECIFIED (2) ESRD on hemodialysis Code(s): N18.6 - END STAGE RENAL DISEASE; Z99.2 - DEPENDENCE ON RENAL DIALYSIS (3) Leg wound, left Code(s): S81.802A - UNSPECIFIED OPEN WOUND, LEFT LOWER LEG, INITIAL ENCOUNTER (4) Unilateral AKA Code(s): Z89.619 - ACQUIRED ABSENCE OF UNSPECIFIED LEG ABOVE KNEE (5) Anemia in ESRD (end-stage renal disease) Code(s): N18.6 - END STAGE RENAL DISEASE; D63.1 - ANEMIA IN CHRONIC KIDNEY DISEASE (6) Atrial fibrillation Code(s): I48.91 - UNSPECIFIED ATRIAL FIBRILLATION Qualifiers: (7) CAD (coronary artery disease) Code(s): I25.10 - ATHSCL HEART DISEASE OF [place] CORONARY ARTERY W/O ANG PCTRS Qualifiers: Coronary Disease-Associated Artery/Lesion type: [place] artery [place] vs. transplanted heart: [place] heart Associated angina: without angina Qualified Code(s): I25.10 - Atherosclerotic heart disease of [place] coronary artery without angina pectoris (8) Diabetes Code(s): E11.9 - TYPE 2 DIABETES MELLITUS WITHOUT COMPLICATIONS Qualifiers: (9) ESRD (end stage renal disease) on dialysis Code(s): N18.6 - END STAGE RENAL DISEASE; Z99.2 - DEPENDENCE ON RENAL DIALYSIS (10) Peripheral vascular disease due to secondary diabetes Code(s): E13.51 - OTH DIABETES W DIABETIC PERIPHERAL ANGIOPATHY W/O [place] (11) S/P transmetatarsal amputation of foot Code(s): Z89.439 - ACQUIRED ABSENCE OF UNSPECIFIED FOOT Qualifiers: Laterality: left Qualified Code(s): Z89.432 - Acquired absence of left foot Assessment/Plan A/P Atrial Fibrillation with RVR r/o Sepsis pneumonia DYSPNEA ESRD on HD PAD CAD HTN DM Hyperlipidemia - chest x-ray am - inhaled bronchodilators - HD per renal - rate control - continue anticoagulation - wound care - abx as per id - merol x [address] JOHNSON
[2017-12-30] MEDS: methylPREDNISolone NA SUCC 40 MG/1 ML VIAL IVPUSH SCH ×3 (13:35→22:09)
--- NOTE | 2017-12-30 14:23 | CONSULT ---
Consult Consult Specialty:: Hematology - History of Present Illness History of Present Illness: 72 year old female admitted with severe pain, swelling and tenderness to touch involving the left thigh. 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 Known case of CAD, s/p MO, s/p PCI/ Stenting, ESRD-HD, h/o atrial fib, advanced AV block, s/p PPM, s/p rt. AKA, partial amputation of the left foot. Hematology consulted for anemia/PVD. Pt seen and examined Daughter at bedside. 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 No: Hematuria Infectious Disease: Yes: MRSA Musculoskeletal: Yes: Other (R rotator cuff repair) Endocrine: Yes: Diabetes Mellitus, Hypothyroidism Additional Medical History: Steal syndrome , PVD- s//p surgery. End stage renal disease (hemodialysis 3x per week). Congestive heart failure. Diabetes. Hypertension. Hyperlipidemia. Peripheral vascular occlusive disease. Hypothyroidism. Anemia. Gastroesophageal reflux disease - Past Surgical History Past Surgical History: Yes: Amputation (Rt AKA, left TMA), Hysterectomy ( thyroid surgery), Stent - Alcohol/Substance Use Hx Alcohol Use: No History of Substance Use: reports: None - Smoking History Smoking history: Never smoked Have you smoked in the past 12 months: No Aproximately how many cigarettes per day: 0 - Social History Usual Living Arrangement: [facility] ADL: Support Services History of Recent Travel: No Home Medications - Allergies Allergies/Adverse Reactions: Allergies Allergy/AdvReac Type Severity Reaction Status Date / Time adhesive tape Allergy Severe SKIN TEAR Verified 12/21/17 22:39 amoxicillin trihydrate AdvReac Severe DIARRHEA Verified 12/21/17 22:39 [From Augmentin] potassium clavulanate AdvReac Severe DIARRHEA Verified 12/21/17 22:39 [From Augmentin] - Home Medications Home Medications: Ambulatory Orders Acetaminophen [Tylenol .Regular Strength -] 650 mg PO Q4H PRN #30 tablet Amino Acids/Protein Hydrolys [Prosource No Carb Liquid Pkt] 30 ml PO BID@0800, 1730 #20 packet 11/24/17 Apixaban [Eliquis] 2.5 mg PO BID #60 tablet 11/24/17 Metoprolol Tartrate [Lopressor -] 12.5 mg PO DAILY 30 Days tablet 11/24/17 Ondansetron [Zofran -] 4 mg PO Q8H PRN #30 tablet 11/24/17 Sevelamer Carbonate [Renvela -] 1,600 mg PO TIDCM #90 tab 11/24/17 Sodium Thiosulfate 25 gm IVPB MoWeFr@0800 #100 ml 11/24/17 oxyCODONE HCL [Roxicodone -] 5 mg PO Q6H PRN #30 tablet MDD 4 11/24/17 Diphenhydramine HCl [Benadryl Capsule -] 25 mg PO DAILY PRN 12/05/17 Insulin Aspart [Novolog Flexpen] 0 unit SQ TID PRN 12/05/17 Nut.tx.imp.renal Fxn,Lac-Reduc [Nepro Carb Steady] 8 oz PO BID 12/05/17 Aspirin [ASA -] 81 mg PO DAILY #30 tab.chew 12/08/17 Levothyroxine [Synthroid -] 125 mcg PO DAILY@0700 #90 tablet 12/08/17 Nystatin Oral Suspension - [Nystatin Oral Susp 880269 Units/5 ML -] 500,000 units PO Q6HPO #10 cup 12/08/17 Nystatin Powder [Nystop Powder -] 1 applic TP BID #30 applic 12/08/17 Pantoprazole Sodium [Protonix -] 40 mg PO DAILY #60 tablet.ec 12/08/17 Clotrimazole 15 gm TP DAILY 12/22/17 Collagenase Clostridium Hist. [Santyl -] 1 applic TP DAILY 12/22/17 Glimepiride 2 mg PO BID 12/22/17 Sennosides [Senna Laxative] 8.6 mg PO DAILY 12/22/17 Silver Sulfadiazine 1% Top Cr [Silvadene] 1 applic TP ONCE 12/22/17 Physical Exam Vital Signs: Vital Signs Temperature 97.9 F 12/30/17 10:00 Pulse Rate 91 H 12/30/17 10:00 Respiratory Rate 18 12/30/17 10:00 Blood Pressure 99/63 12/30/17 10:00 O2 Sat by Pulse Oximetry (%) 96 12/30/17 10:00 Constitutional: Yes: Calm Eyes: Yes: Conjunctiva Clear HENT: Yes: Atraumatic, Normocephalic Neck: Yes: Supple, Trachea Midline Cardiovascular: Yes: Regular Rate and Rhythm Respiratory: Yes: Regular Gastrointestinal: Yes: Soft Extremities: Yes: Other (multiple echymosses) Edema: Yes (+amputations) Neurological: Yes: Alert, Oriented Labs: CBC, BMP 12/30/17 06:30 12/30/17 06:30 Imaging - Results Cat Scan: Report Reviewed Assessment/Plan Anemia: routine w/u Likely in the setting of ESRD and other co-morbidities. PVD: Severe Vascular c/s Already on Asa/ eliquis Do not see a reason for IV Heparin, unless vascular/cardiology feels otherwise ?plavix. for rheum w/u send serum cryoglobulins ESRD on HD PNA will follow sachin robles
--- NOTE | 2017-12-30 14:36 | PN ---
Progress Note (short form) - Note Progress Note: Renal follow up for ESRD on HD Pt seen and examined during dialysis BP stable, goal UF 2.5L continues to have LE pain + cough Vital Signs Temperature 97.9 F 12/30/17 10:00 Pulse Rate 91 H 12/30/17 10:00 Respiratory Rate 18 12/30/17 10:00 Blood Pressure 99/63 12/30/17 10:00 O2 Sat by Pulse Oximetry (%) 96 12/30/17 10:00 Intake & Output 12/27/17 12/28/17 12/29/17 12/30/17 23:59 23:59 23:59 23:59 Intake Total 986 947 7245 250 Balance 376 387 1876 250 Weight 80.399 kg NAD, awake and alert No JVD, Neck supple RRR, No M/R CTA soft, obese, + tender lesion on left side of abd LLE with diffuse tenderness, no cyanosis or clubbing CBC, BMP 12/30/17 06:30 12/30/17 06:30 Current Medications Acetaminophen (Tylenol -) 650 mg PO Q6H PRN PRN Reason: BACK PAIN Albuterol/Ipratropium (Duoneb -) 1 amp NEB Q6H PRN PRN Reason: SOB/WHEEZING Last Admin: 12/30/17 07:21 Dose: 1 amp Alprazolam (Xanax -) 0.25 mg PO Q8H PRN PRN Reason: ANXIETY Amino Acids (Prosource No Carb Liquid Pkt) 30 ml PO BID@0800,1730 [facility] Last Admin: 12/30/17 09:10 Dose: 30 ml Apixaban (Eliquis -) 2.5 mg PO BID [facility] Last Admin: 12/30/17 09:09 Dose: 2.5 mg Aspirin (Asa -) 81 mg PO DAILY [facility] Last Admin: 12/30/17 09:09 Dose: 81 mg Atorvastatin Calcium (Lipitor -) 80 mg PO HS [facility] Last Admin: 12/29/17 21:39 Dose: 80 mg Bisacodyl (Dulcolax -) 10 mg PO DAILY PRN PRN Reason: CONSTIPATION Last Admin: 12/30/17 09:22 Dose: 10 mg Escitalopram Oxalate (Lexapro -) 10 mg PO DAILY [facility] Last Admin: 12/30/17 09:09 Dose: 10 mg Guaifenesin (Robitussin Dm -) 10 ml PO Q6H PRN PRN Reason: COUGH Last Admin: 12/26/17 21:54 Dose: 10 ml Cefepime HCl (Maxipime 1 Gm Premix Ivpb) 1 gm in 50 mls @ 100 mls/hr IVPB DAILY [facility] Last Admin: 12/30/17 09:10 Dose: 100 mls/hr Sodium Chloride (Normal Saline -) 250 mls @ 3,000 mls/hr IV PRN PRN PRN Reason: Hypotension during Dialysis Insulin Aspart (Novolog Vial Sliding Scale -) 1 vial SQ ACHS [facility] PRN Reason: Protocol Last Admin: 12/30/17 11:34 Dose: 2 units Levothyroxine Sodium 112 mcg/ (Levothyroxine Sodium 25 mcg) 137 mcg PO DAILY@ 0700 [facility] Last Admin: 12/30/17 06:30 Dose: 137 mcg Lidocaine (Lidoderm Patch -) 1 patch TP DAILY [facility] Last Admin: 12/30/17 09:10 Dose: 1 patch Methylprednisolone Sodium Succinate (Solu-Medrol -) 40 mg IVPUSH Q6H-IV [facility] Last Admin: 12/30/17 13:35 Dose: 40 mg Metoprolol Tartrate (Lopressor -) 12.5 mg PO DAILY [facility] Last Admin: 12/30/17 09:10 Dose: Not Given Miscellaneous (Lidoderm Patch Removal) 1 each MC DAILY@2200 [facility] Last Admin: 12/29/17 21:47 Dose: 1 each Nystatin (Mycostatin Cream -) 1 applic TP DAILY [facility] Last Admin: 12/30/17 09:10 Dose: 1 applic Oxycodone HCl (Roxicodone -) 5 mg PO Q6H PRN PRN Reason: PAIN LEVEL 6-10 Last Admin: 12/30/17 06:30 Dose: 5 mg Pantoprazole Sodium (Protonix -) 40 mg PO DAILY [facility] Last Admin: 12/30/17 09:11 Dose: 40 mg Senna (Senna -) 1 tab PO DAILY [facility] Last Admin: 12/30/17 09:09 Dose: 1 tab Sevelamer Carbonate (Renvela -) 1,600 mg PO TIDCM [facility] Last Admin: 12/30/17 13:35 Dose: 1,600 mg Silver Sulfadiazine (Silvadene -) 1 applic TP DAILY [facility] Last Admin: 12/30/17 09:11 Dose: 1 applic Sodium Thiosulfate (Sodium Thiosulfate) 25 gm IVPB MoWeFr@0800 [facility] Last Admin: 12/28/17 09:07 Dose: 25 gm 72 year old woman with PMhx of ESRD on HD, Hypertension, CAD, PVD s/p amputations, Afib on Eliquis, Calciphylaxis who presented with LE wound and admitted for Sepsis. 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 consolidation #Calciphaylaxis #CKD Related Anemia #Hypothyroidism tolerating dialysis well continue Abx as per ID Cardiology and Vascular follow up continue sodium thiosulfate and renvela start miralax discussed addition of Plavix with Cardiology, will defer for now as pt is very high bleeding risk while on Eliquis, and ASA will check ANCA, BETTE negative Wan Cruz DO
[2017-12-30] MEDS ORDERED: PT OWN MED DRAWER 7, Y5N ONE (15:13)
[2017-12-30] MEDS: SODIUM THIOSULFATE 12.5 GM/50 ML VIAL IVPB SCH (15:35)
[2017-12-30] MEDS: POLYETHYLENE GLYCOL 3350 119 GM BTL PO SCH (18:09)
[2017-12-30] MEDS: ACETAMINOPHEN 325 MG TABLET (FP) PO PRN (18:21)
[2017-12-30] MEDS ORDERED: SIMETHICONE 80 MG TAB.CHEW (FP) PO ONE (19:43)
[2017-12-30] MEDS ORDERED: SODIUM PHOSPHATE/NA BIPHOS 133 ML ENEMA PR ONE (21:59)
[2017-12-30] MEDS: ATORVASTATIN CA 80 MG TABLET (FP) PO SCH (22:10)
[2017-12-30] MEDS: GABAPENTIN 100 MG CAPSULE (FP) PO SCH (22:10)
[2017-12-30] MEDS: LIDOCAINE PATCH REMOVAL MC SCH (22:11)
[2017-12-31] MEDS: ACETAMINOPHEN 325 MG TABLET (FP) PO PRN ×2 (00:16→21:08)
[2017-12-31] MEDS: methylPREDNISolone NA SUCC 40 MG/1 ML VIAL IVPUSH SCH ×4 (03:37→21:08)
[2017-12-31] MEDS: ALBUTEROL SO4 2.5/IPRATROPIUM 0.5 INH SOL 3 ML VIAL.NEB. NEB PRN ×3 (04:00→21:45)
[2017-12-31] MEDS ORDERED: LEVOTHYROXINE NA 25 MCG TABLET (FP) ONE (06:12)
[2017-12-31] MEDS ORDERED: LEVOTHYROXINE NA 112 MCG TABLET (FP) ONE (06:12)
[2017-12-31] MEDS: LEVOTHYROXINE 112 MCG, LEVOTHYROXINE 25 MCG PO SCH (06:52)
[2017-12-31] MEDS: INSULIN SLIDING SCALE (NOVOLOG) 1 VIAL SQ SCH ×4 (06:52→21:08)
[2017-12-31 08:07] LABS: CHLORIDE 102 mmol/L (98-107); POTASSIUM 3.8 mmol/L (3.5-5.1); SODIUM 143 mmol/L (136-145)
[2017-12-31 08:56] LABS: ANION GAP 13 (8-16); BLOOD UREA NITROGEN 22 mg/dL (7-18); CALCIUM 7.5 mg/dL (8.5-10.1); CO2 28 mmol/L (21-32); CREATININE 2.4 mg/dL (0.55-1.02); GLUCOSE,RANDOM 235 mg/dL (74-106); LDH 236 U/L (84-246)
[2017-12-31] MEDS: ASPIRIN 81 MG CHEWABLE TABLETS PO SCH (10:05)
[2017-12-31] MEDS: APIXABAN 2.5 MG TABLET PO SCH ×2 (10:06→21:08)
[2017-12-31] MEDS: SENNOSIDES 8.6MG TABLET (FP) PO SCH (10:06)
[2017-12-31] MEDS: METOPROLOL TARTRATE 25 MG TABLET (FP) PO SCH (10:06)
[2017-12-31] MEDS: ESCITALOPRAM OXALATE 10 MG TABLET (FP) PO SCH (10:06)
[2017-12-31] MEDS: PANTOPRAZOLE 40 MG TABLET (FP) PO SCH (10:06)
[2017-12-31] MEDS: SEVELAMER CARBONATE 800 MG TAB (FP) PO SCH ×3 (10:07→17:37)
[2017-12-31] MEDS: AMINO ACIDS/PROTEIN HYDROLYS 30 ML LIQUID.PKT PO SCH ×2 (10:07→17:37)
[2017-12-31] MEDS: CEFEPIME HCL/D5W 1 GM/50 ML BAG IVPB SCH (10:08)
[2017-12-31] MEDS: POLYETHYLENE GLYCOL 3350 119 GM BTL PO SCH (10:08)
[2017-12-31] MEDS: LIDOCAINE 5% TOPICAL PATCH TP SCH (10:08)
[2017-12-31] MEDS: guaiFENesin/D-METHORPHAN HB 10 ML UNIT-DOSE CUPS PO PRN (10:18)
[2017-12-31] MEDS: BISACODYL 5 MG TABLET.DR (FP) PO PRN (10:18)
--- NOTE | 2017-12-31 10:37 | PN ---
Progress Note, Physician History of Present Illness: pulmonary alert,feeling better,comfortable,-resp distress - Current Medication List Current Medications: Active Medications Acetaminophen (Tylenol -) 650 mg PO Q6H PRN PRN Reason: BACK PAIN Last Admin: 12/31/17 00:16 Dose: 650 mg Albuterol/Ipratropium (Duoneb -) 1 amp NEB Q6H PRN PRN Reason: SHORTNESS OF BREATH Last Admin: 12/31/17 04:00 Dose: 1 amp Alprazolam (Xanax -) 0.25 mg PO Q8H PRN PRN Reason: ANXIETY Last Admin: 12/30/17 22:10 Dose: 0.25 mg Amino Acids (Prosource No Carb Liquid Pkt) 30 ml PO BID@0800,1730 [facility] Last Admin: 12/31/17 10:07 Dose: 30 ml Apixaban (Eliquis -) 2.5 mg PO BID [facility] Last Admin: 12/31/17 10:06 Dose: 2.5 mg Aspirin (Asa -) 81 mg PO DAILY [facility] Last Admin: 12/31/17 10:05 Dose: 81 mg Atorvastatin Calcium (Lipitor -) 80 mg PO HS [facility] Last Admin: 12/30/17 22:10 Dose: 80 mg Bisacodyl (Dulcolax -) 10 mg PO DAILY PRN PRN Reason: CONSTIPATION Last Admin: 12/30/17 09:22 Dose: 10 mg Escitalopram Oxalate (Lexapro -) 10 mg PO DAILY [facility] Last Admin: 12/31/17 10:06 Dose: 10 mg Gabapentin (Neurontin -) 100 mg PO [facility] Last Admin: 12/30/17 22:10 Dose: 100 mg Guaifenesin (Robitussin Dm -) 10 ml PO Q6H PRN PRN Reason: COUGH Last Admin: 12/26/17 21:54 Dose: 10 ml Cefepime HCl (Maxipime 1 Gm Premix Ivpb) 1 gm in 50 mls @ 100 mls/hr IVPB DAILY [facility] Last Admin: 12/31/17 10:08 Dose: 100 mls/hr Sodium Chloride (Normal Saline -) 250 mls @ 3,000 mls/hr IV PRN PRN PRN Reason: Hypotension during Dialysis Insulin Aspart (Novolog Vial Sliding Scale -) 1 vial SQ ACHS [facility] PRN Reason: Protocol Last Admin: 12/31/17 06:52 Dose: 6 units Levothyroxine Sodium 112 mcg/ (Levothyroxine Sodium 25 mcg) 137 mcg PO DAILY@ 0700 [facility] Last Admin: 12/31/17 06:52 Dose: 137 mcg Lidocaine (Lidoderm Patch -) 1 patch TP DAILY [facility] Last Admin: 12/31/17 10:08 Dose: 1 patch Methylprednisolone Sodium Succinate (Solu-Medrol -) 40 mg IVPUSH Q6H-IV [facility] Last Admin: 12/31/17 10:05 Dose: 40 mg Metoprolol Tartrate (Lopressor -) 12.5 mg PO DAILY [facility] Last Admin: 12/31/17 10:06 Dose: 12.5 mg Miscellaneous (Lidoderm Patch Removal) 1 each MC DAILY@2200 [facility] Last Admin: 12/30/17 22:11 Dose: 1 each Nystatin (Mycostatin Cream -) 1 applic TP DAILY [facility] Last Admin: 12/30/17 09:10 Dose: 1 applic Oxycodone HCl (Roxicodone -) 5 mg PO Q6H PRN PRN Reason: PAIN LEVEL 6-10 Last Admin: 12/30/17 06:30 Dose: 5 mg Pantoprazole Sodium (Protonix -) 40 mg PO DAILY [facility] Last Admin: 12/31/17 10:06 Dose: 40 mg Polyethylene Glycol (Miralax (For Daily Use) -) 17 gm PO DAILY [facility] Last Admin: 12/31/17 10:08 Dose: 17 gm Senna (Senna -) 1 tab PO DAILY [facility] Last Admin: 12/31/17 10:06 Dose: 1 tab Sevelamer Carbonate (Renvela -) 1,600 mg PO TIDCM [facility] Last Admin: 12/31/17 10:07 Dose: 1,600 mg Silver Sulfadiazine (Silvadene -) 1 applic TP DAILY [facility] Last Admin: 12/30/17 09:11 Dose: 1 applic Sodium Thiosulfate (Sodium Thiosulfate) 25 gm IVPB MoWeFr@0800 [facility] Last Admin: 12/30/17 15:35 Dose: 25 gm - Objective Vital Signs: Vital Signs Temperature 97.3 F L 12/31/17 06:00 Pulse Rate 107 H 12/31/17 06:00 Respiratory Rate 20 12/31/17 06:00 Blood Pressure 136/70 12/31/17 06:00 O2 Sat by Pulse Oximetry (%) 94 L 12/30/17 21:00 Constitutional: Yes: Well Nourished, Calm Eyes: Yes: WNL HENT: Yes: WNL Neck: Yes: WNL Cardiovascular: Yes: Pulse Irregular, S1, S2 Respiratory: Yes: Diminished Gastrointestinal: Yes: Normal Bowel Sounds, Soft Extremities: Yes: Amputation (r aka) Edema: Yes Labs: CBC, BMP 12/31/17 06:00 INR, PTT INR 2.23 (0.82-1.09) H 12/22/17 12:57 Problem List - Problems (1) Dyspnea Code(s): R06.00 - DYSPNEA, UNSPECIFIED (2) ESRD on hemodialysis Code(s): N18.6 - END STAGE RENAL DISEASE; Z99.2 - DEPENDENCE ON RENAL DIALYSIS (3) Leg wound, left Code(s): S81.802A - UNSPECIFIED OPEN WOUND, LEFT LOWER LEG, INITIAL ENCOUNTER (4) Unilateral AKA Code(s): Z89.619 - ACQUIRED ABSENCE OF UNSPECIFIED LEG ABOVE KNEE (5) Anemia in ESRD (end-stage renal disease) Code(s): N18.6 - END STAGE RENAL DISEASE; D63.1 - ANEMIA IN CHRONIC KIDNEY DISEASE (6) Atrial fibrillation Code(s): I48.91 - UNSPECIFIED ATRIAL FIBRILLATION Qualifiers: (7) CAD (coronary artery disease) Code(s): I25.10 - ATHSCL HEART DISEASE OF [place] CORONARY ARTERY W/O ANG PCTRS Qualifiers: Coronary Disease-Associated Artery/Lesion type: [place] artery [place] vs. transplanted heart: [place] heart Associated angina: without angina Qualified Code(s): I25.10 - Atherosclerotic heart disease of [place] coronary artery without angina pectoris (8) Diabetes Code(s): E11.9 - TYPE 2 DIABETES MELLITUS WITHOUT COMPLICATIONS Qualifiers: (9) ESRD (end stage renal disease) on dialysis Code(s): N18.6 - END STAGE RENAL DISEASE; Z99.2 - DEPENDENCE ON RENAL DIALYSIS (10) Peripheral vascular disease due to secondary diabetes Code(s): E13.51 - OTH DIABETES W DIABETIC PERIPHERAL ANGIOPATHY W/O GANGRENE (11) S/P transmetatarsal amputation of foot Code(s): Z89.439 - ACQUIRED ABSENCE OF UNSPECIFIED FOOT Qualifiers: Laterality: left Qualified Code(s): Z89.432 - Acquired absence of left foot Assessment/Plan A/P Atrial Fibrillation with RVR r/o Sepsis pneumonia DYSPNEA ESRD on HD PAD CAD HTN DM Hyperlipidemia - chest x-ray am - inhaled bronchodilators - HD per renal - rate control - continue anticoagulation - wound care - abx as per frank JOHNSON
[2017-12-31] MEDS ORDERED: INSULIN (NOVOLOG) ASPART 100 UNITS/ML 10ML VIAL ONE ×2 (11:56→21:13)
[2017-12-31] MEDS: SILVER SULFADIAZINE 1% TOP CREAM 50 GM JAR TP SCH (12:15)
[2017-12-31] MEDS: NYSTATIN 100,000 UNIT/GM TOPICAL CREAM 15 GM TUBE TP SCH (12:15)
--- NOTE | 2017-12-31 12:47 | PN ---
Progress Note (short form) - Note Progress Note: Renal follow up for ESRD on HD Pt seen and examined at the bedside sleeping no overnight events daughter at the bedside LE pain is improved Vital Signs Temperature 97.3 F L 12/31/17 06:00 Pulse Rate 107 H 12/31/17 06:00 Respiratory Rate 20 12/31/17 06:00 Blood Pressure 136/70 12/31/17 06:00 O2 Sat by Pulse Oximetry (%) 94 L 12/30/17 21:00 Intake & Output 12/28/17 12/29/17 12/30/17 12/31/17 23:59 23:59 23:59 23:59 Intake Total 980 1377 261 Balance 980 1377 261 Weight 80.399 kg 79.549 kg NAD No LE edema CBC, BMP 12/30/17 06:30 12/31/17 06:00 Current Medications Acetaminophen (Tylenol -) 650 mg PO Q6H PRN PRN Reason: BACK PAIN Last Admin: 12/31/17 00:16 Dose: 650 mg Albuterol/Ipratropium (Duoneb -) 1 amp NEB Q6H PRN PRN Reason: SHORTNESS OF BREATH Last Admin: 12/31/17 04:00 Dose: 1 amp Alprazolam (Xanax -) 0.25 mg PO Q8H PRN PRN Reason: ANXIETY Last Admin: 12/30/17 22:10 Dose: 0.25 mg Amino Acids (Prosource No Carb Liquid Pkt) 30 ml PO BID@0800,1730 [facility] Last Admin: 12/31/17 10:07 Dose: 30 ml Apixaban (Eliquis -) 2.[address] [facility] Last Admin: 12/31/17 10:06 Dose: 2.5 mg Aspirin (Asa -) [address] [facility] Last Admin: 12/31/17 10:05 Dose: 81 mg Atorvastatin Calcium (Lipitor -) [address] [facility] Last Admin: 12/30/17 22:10 Dose: 80 mg Bisacodyl (Dulcolax -) 10 mg PO DAILY PRN PRN Reason: CONSTIPATION Last Admin: 12/31/17 10:18 Dose: 10 mg Escitalopram Oxalate (Lexapro -) [address] [facility] Last Admin: 12/31/17 10:06 Dose: 10 mg Gabapentin (Neurontin -) [address] [facility] Last Admin: 12/30/17 22:10 Dose: 100 mg Guaifenesin (Robitussin Dm -) 10 ml PO Q6H PRN PRN Reason: COUGH Last Admin: 12/31/17 10:18 Dose: 10 ml Cefepime HCl (Maxipime 1 Gm Premix Ivpb) 1 gm in 50 mls @ 100 mls/hr IVPB DAILY [facility] Last Admin: 12/31/17 10:08 Dose: 100 mls/hr Sodium Chloride (Normal Saline -) 250 mls @ 3,000 mls/hr IV PRN PRN PRN Reason: Hypotension during Dialysis Insulin Aspart (Novolog Vial Sliding Scale -) 1 vial SQ ACHS [facility] PRN Reason: Protocol Last Admin: 12/31/17 12:14 Dose: 2 units Levothyroxine Sodium 112 mcg/ (Levothyroxine Sodium 25 mcg) 137 mcg PO DAILY@ 0700 [facility] Last Admin: 12/31/17 06:52 Dose: 137 mcg Lidocaine (Lidoderm Patch -) [address] [facility] Last Admin: 12/31/17 10:08 Dose: 1 patch Methylprednisolone Sodium Succinate (Solu-Medrol -) 40 mg IVPUSH Q6H-IV [facility] Last Admin: 12/31/17 10:05 Dose: 40 mg Metoprolol Tartrate (Lopressor -) 12.[address] [facility] Last Admin: 12/31/17 10:06 Dose: 12.5 mg Miscellaneous (Lidoderm Patch Removal) 1 each MC DAILY@2200 [facility] Last Admin: 12/30/17 22:11 Dose: 1 each Nystatin (Mycostatin Cream -) [address] [facility] Last Admin: 12/31/17 12:15 Dose: 1 applic Oxycodone HCl (Roxicodone -) 5 mg PO Q6H PRN PRN Reason: PAIN LEVEL 6-10 Last Admin: 12/30/17 06:30 Dose: 5 mg Pantoprazole Sodium (Protonix -) [address] [facility] Last Admin: 12/31/17 10:06 Dose: 40 mg Polyethylene Glycol (Miralax (For Daily Use) -) [address] [facility] Last Admin: 12/31/17 10:08 Dose: 17 gm Senna (Senna -) [address] [facility] Last Admin: 12/31/17 10:06 Dose: 1 tab Sevelamer Carbonate (Renvela -) 1,[address] [facility] Last Admin: 12/31/17 12:15 Dose: 1,600 mg Silver Sulfadiazine (Silvadene -) [address] [facility] Last Admin: 12/31/17 12:15 Dose: 1 applic Sodium Thiosulfate (Sodium Thiosulfate) 25 gm IVPB MoWeFr@0800 [facility] Last Admin: 12/30/17 15:35 Dose: 25 gm 72 year old woman with PMhx of ESRD on HD, Hypertension, CAD, PVD s/p amputations, Afib on Eliquis, Calciphylaxis who presented with LE wound and admitted for Sepsis. 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 consolidation #Calciphaylaxis #CKD Related Anemia #Hypothyroidism s/p dialysis yesterday no respiratory distress, CXR shows central congestion but no worsening pleural effusions so no need for dialysis today next planned dialysis is for Tuesday continue Abx for suspected PNA continue Renvlea and sodium thiosulfate continue gabapentin will continue [place] with HD Wan Cruz DO
[2017-12-31] MEDS ORDERED: BISACODYL 10 MG SUPP.RECT PR PRN (13:34)
--- NOTE | 2017-12-31 13:34 | PN ---
Progress Note, Physician Chief Complaint: Examined pt Daughter at bedside Pt's pain control is better today She feels better - Current Medication List Current Medications: Active Medications Acetaminophen (Tylenol -) 650 mg PO Q6H PRN PRN Reason: BACK PAIN Last Admin: 12/31/17 00:16 Dose: 650 mg Albuterol/Ipratropium (Duoneb -) 1 amp NEB Q6H PRN PRN Reason: SHORTNESS OF BREATH Last Admin: 12/31/17 04:00 Dose: 1 amp Alprazolam (Xanax -) 0.25 mg PO Q8H PRN PRN Reason: ANXIETY Last Admin: 12/30/17 22:10 Dose: 0.25 mg Amino Acids (Prosource No Carb Liquid Pkt) 30 ml PO BID@0800,1730 [facility] Last Admin: 12/31/17 10:07 Dose: 30 ml Apixaban (Eliquis -) 2.5 mg PO BID [facility] Last Admin: 12/31/17 10:06 Dose: 2.5 mg Aspirin (Asa -) 81 mg PO DAILY [facility] Last Admin: 12/31/17 10:05 Dose: 81 mg Atorvastatin Calcium (Lipitor -) 80 mg PO HS [facility] Last Admin: 12/30/17 22:10 Dose: 80 mg Bisacodyl (Dulcolax -) 10 mg PO DAILY PRN PRN Reason: CONSTIPATION Last Admin: 12/31/17 10:18 Dose: 10 mg Escitalopram Oxalate (Lexapro -) 10 mg PO DAILY [facility] Gabapentin (Neurontin -) 100 mg PO HS [facility] Last Admin: 12/30/17 22:10 Dose: 100 mg Guaifenesin (Robitussin Dm -) 10 ml PO Q6H PRN PRN Reason: COUGH Last Admin: 12/31/17 10:18 Dose: 10 ml Cefepime HCl (Maxipime 1 Gm Premix Ivpb) 1 gm in 50 mls @ 100 mls/hr IVPB DAILY [facility] Last Admin: 12/31/17 10:08 Dose: 100 mls/hr Sodium Chloride (Normal Saline -) 250 mls @ 3,000 mls/hr IV PRN PRN PRN Reason: Hypotension during Dialysis Insulin Aspart (Novolog Vial Sliding Scale -) 1 vial SQ ACHS [facility] PRN Reason: Protocol Last Admin: 12/31/17 12:14 Dose: 2 units Levothyroxine Sodium 112 mcg/ (Levothyroxine Sodium 25 mcg) 137 mcg PO DAILY@ 0700 [facility] Last Admin: 12/31/17 06:52 Dose: 137 mcg Lidocaine (Lidoderm Patch -) 1 patch TP DAILY [facility] Last Admin: 12/31/17 10:08 Dose: 1 patch Methylprednisolone Sodium Succinate (Solu-Medrol -) 40 mg IVPUSH Q6H-IV [facility] Last Admin: 12/31/17 10:05 Dose: 40 mg Metoprolol Tartrate (Lopressor -) 12.5 mg PO DAILY [facility] Last Admin: 12/31/17 10:06 Dose: 12.5 mg Miscellaneous (Lidoderm Patch Removal) 1 each MC DAILY@2200 [facility] Last Admin: 12/30/17 22:11 Dose: 1 each Nystatin (Mycostatin Cream -) 1 applic TP DAILY [facility] Last Admin: 12/31/17 12:15 Dose: 1 applic Oxycodone HCl (Roxicodone -) 5 mg PO Q6H PRN PRN Reason: PAIN LEVEL 6-10 Last Admin: 12/30/17 06:30 Dose: 5 mg Pantoprazole Sodium (Protonix -) 40 mg PO DAILY [facility] Last Admin: 12/31/17 10:06 Dose: 40 mg Polyethylene Glycol (Miralax (For Daily Use) -) 17 gm PO DAILY [facility] Last Admin: 12/31/17 10:08 Dose: 17 gm Senna (Senna -) 1 tab PO DAILY [facility] Last Admin: 12/31/17 10:06 Dose: 1 tab Sevelamer Carbonate (Renvela -) 1,600 mg PO TIDCM [facility] Last Admin: 12/31/17 12:15 Dose: 1,600 mg Silver Sulfadiazine (Silvadene -) 1 applic TP DAILY [facility] Last Admin: 12/31/17 12:15 Dose: 1 applic Sodium Thiosulfate (Sodium Thiosulfate) 25 gm IVPB MoWeFr@0800 [facility] Last Admin: 12/30/17 15:35 Dose: 25 gm - Objective Vital Signs: Vital Signs Temperature 97.3 F L 12/31/17 06:00 Pulse Rate 107 H 12/31/17 06:00 Respiratory Rate 20 12/31/17 06:00 Blood Pressure 136/70 12/31/17 06:00 O2 Sat by Pulse Oximetry (%) 94 L 12/30/17 21:00 Constitutional: Yes: No Distress Cardiovascular: Yes: Pulse Irregular, Murmur Respiratory: Yes: Diminished, Rhonchi Gastrointestinal: Yes: Normal Bowel Sounds, Soft. No: Tenderness Extremities: Yes: Amputation Edema: No Labs: CBC, BMP 12/30/17 06:30 12/31/17 06:00 INR, PTT INR 2.23 (0.82-1.09) H 12/22/17 12:57 Problem List - Problems (1) Depression Code(s): F32.9 - MAJOR DEPRESSIVE DISORDER, SINGLE EPISODE, UNSPECIFIED (2) Dyspnea Code(s): R06.00 - DYSPNEA, UNSPECIFIED (3) ESRD on hemodialysis Code(s): N18.6 - END STAGE RENAL DISEASE; Z99.2 - DEPENDENCE ON RENAL DIALYSIS (4) Leg pain, left Code(s): M79.605 - PAIN IN LEFT LEG (5) Leukocytosis Code(s): D72.829 - ELEVATED WHITE BLOOD CELL COUNT, UNSPECIFIED (6) Atrial fibrillation Code(s): I48.91 - UNSPECIFIED ATRIAL FIBRILLATION Qualifiers: Assessment/Plan PLAN WBC trending down iv antibiotics for pneumonia Pain control HD per Renal spoke with Surgeon-- no further surgeries recommended for hand Pt would like to continue with dialysis for now, but wants pain control Change Lexapro to evening as she was too drowsy on it Gabapentin has brought some relief
--- NOTE | 2017-12-31 14:44 | PN ---
Progress Note, Physician Chief Complaint: left hand dry gangrene History of Present Illness: 72 yo RHD female from [facility] with PMH HTN, DM, HLD, PAD, afib (on Eliquis 2.5mg PO BID), pacemaker/defibrillator, ESRD (M, W, F dialysis; L chest tunnel cath. Anuric), R ATK amputation, L foot amputation, L hand 2nd-4th digit amputation (03/12), who presents to the ED c/o LLE pain over the past two days. She has completed a 6-8 week course of these abx through a R PICC line for osteomyelitis of her L hand 2nd-4th digits. No acute events overnight, She is depressed and tearful regarding her condition. Today she had CTA upper extremties. - Current Medication List Current Medications: Active Medications Acetaminophen (Tylenol -) 650 mg PO Q6H PRN PRN Reason: BACK PAIN Last Admin: 12/31/17 00:16 Dose: 650 mg Albuterol/Ipratropium (Duoneb -) 1 amp NEB Q6H PRN PRN Reason: SHORTNESS OF BREATH Last Admin: 12/31/17 04:00 Dose: 1 amp Alprazolam (Xanax -) 0.25 mg PO Q8H PRN PRN Reason: ANXIETY Last Admin: 12/30/17 22:10 Dose: 0.25 mg Amino Acids (Prosource No Carb Liquid Pkt) 30 ml PO BID@0800,1730 [facility] Last Admin: 12/31/17 10:07 Dose: 30 ml Apixaban (Eliquis -) 2.5 mg PO BID [facility] Last Admin: 12/31/17 10:06 Dose: 2.5 mg Aspirin (Asa -) 81 mg PO DAILY [facility] Last Admin: 12/31/17 10:05 Dose: 81 mg Atorvastatin Calcium (Lipitor -) 80 mg PO HS [facility] Last Admin: 12/30/17 22:10 Dose: 80 mg Bisacodyl (Dulcolax -) 10 mg PO DAILY PRN PRN Reason: CONSTIPATION Last Admin: 12/31/17 10:18 Dose: 10 mg Bisacodyl (Dulcolax Suppository -) 10 mg GA DAILY PRN PRN Reason: CONSTIPATION Docusate Sodium (Colace -) 100 mg PO Q8H PRN PRN Reason: CONSTIPATION Escitalopram Oxalate (Lexapro -) 10 mg PO DAILY [facility] Gabapentin (Neurontin -) 100 mg PO HS [facility] Last Admin: 12/30/17 22:10 Dose: 100 mg Guaifenesin (Robitussin Dm -) 10 ml PO Q6H PRN PRN Reason: COUGH Last Admin: 12/31/17 10:18 Dose: 10 ml Cefepime HCl (Maxipime 1 Gm Premix Ivpb) 1 gm in 50 mls @ 100 mls/hr IVPB DAILY [facility] Last Admin: 12/31/17 10:08 Dose: 100 mls/hr Sodium Chloride (Normal Saline -) 250 mls @ 3,000 mls/hr IV PRN PRN PRN Reason: Hypotension during Dialysis Insulin Aspart (Novolog Vial Sliding Scale -) 1 vial SQ ACHS YOAN PRN Reason: Protocol Last Admin: 12/31/17 12:14 Dose: 2 units Levothyroxine Sodium 112 mcg/ (Levothyroxine Sodium 25 mcg) 137 mcg PO DAILY@ 0700 [facility] Last Admin: 12/31/17 06:52 Dose: 137 mcg Lidocaine (Lidoderm Patch -) 1 patch TP DAILY [facility] Last Admin: 12/31/17 10:08 Dose: 1 patch Methylprednisolone Sodium Succinate (Solu-Medrol -) 40 mg IVPUSH Q6H-IV [facility] Last Admin: 12/31/17 10:05 Dose: 40 mg Metoprolol Tartrate (Lopressor -) 12.5 mg PO DAILY [facility] Last Admin: 12/31/17 10:06 Dose: 12.5 mg Miscellaneous (Lidoderm Patch Removal) 1 each MC DAILY@2200 [facility] Last Admin: 12/30/17 22:11 Dose: 1 each Nystatin (Mycostatin Cream -) 1 applic TP DAILY [facility] Last Admin: 12/31/17 12:15 Dose: 1 applic Pantoprazole Sodium (Protonix -) 40 mg PO DAILY [facility] Last Admin: 12/31/17 10:06 Dose: 40 mg Polyethylene Glycol (Miralax (For Daily Use) -) 17 gm PO DAILY [facility] Last Admin: 12/31/17 10:08 Dose: 17 gm Senna (Senna -) 1 tab PO DAILY [facility] Last Admin: 12/31/17 10:06 Dose: 1 tab Sevelamer Carbonate (Renvela -) 1,600 mg PO TIDCM [facility] Last Admin: 12/31/17 12:15 Dose: 1,600 mg Silver Sulfadiazine (Silvadene -) 1 applic TP DAILY [facility] Last Admin: 12/31/17 12:15 Dose: 1 applic Sodium Thiosulfate (Sodium Thiosulfate) 25 gm IVPB MoWeFr@0800 [facility] Last Admin: 12/30/17 15:35 Dose: 25 gm - Objective Vital Signs: Vital Signs Temperature 98.4 F 12/31/17 14:00 Pulse Rate 72 12/31/17 14:00 Respiratory Rate 20 12/31/17 14:00 Blood Pressure 109/44 12/31/17 14:00 O2 Sat by Pulse Oximetry (%) 96 12/31/17 09:00 Constitutional: Yes: No Distress, Calm Eyes: Yes: Conjunctiva Clear, EOM Intact HENT: Yes: Atraumatic, Normocephalic Neck: Yes: Supple, Trachea Midline Cardiovascular: Yes: Regular Rate and Rhythm, S1, S2. No: Murmur Respiratory: Yes: Regular, CTA Bilaterally Gastrointestinal: Yes: Normal Bowel Sounds, Soft. No: Tenderness Genitourinary: No: CVA Tenderness - Left, CVA Tenderness - Right Extremities: No: Cool, Cyanosis Neurological: Yes: Alert, Oriented Psychiatric: Yes: Alert, Oriented Labs: CBC, BMP 12/30/17 06:30 12/31/17 06:00 INR, PTT INR 2.23 (0.82-1.09) H 12/22/17 12:57 Problem List - Problems (1) Gangrene of hand Assessment/Plan: 72yo female MMP presents with exquite pain and ischemic changes LLE while on eloquis, known h/o PVD and amputation s/p left hand multi digit amputation with expanding ischemic changes both hands. Progressive microvascular disease is the likely cause of all recently noted changes. CTA upper extremities shows critical stenosis 50-70% at brachial distal supply is worse. There is nothing surgical that can be offered. Appreciate vascular surgery assessment appreciated. Medical management empiric IV antibiotics Dry dressing to left hand QOD as soiled consider family conference to discuss goals of care D/w primary team Will follow peripherally Code(s): I96 - GANGRENE, NOT ELSEWHERE CLASSIFIED (2) ESRD on hemodialysis Code(s): N18.6 - END STAGE RENAL DISEASE; Z99.2 - DEPENDENCE ON RENAL DIALYSIS (3) History of ESBL Klebsiella pneumoniae infection Code(s): Z86.19 - PERSONAL HISTORY OF OTHER INFECTIOUS AND PARASITIC DISEASES (4) Left leg cellulitis Code(s): L03.116 - CELLULITIS OF LEFT LOWER LIMB (5) Status post transmetatarsal amputation of left foot Code(s): Z89.432 - ACQUIRED ABSENCE OF LEFT FOOT (6) Unilateral AKA Code(s): Z89.619 - ACQUIRED ABSENCE OF UNSPECIFIED LEG ABOVE KNEE (7) Cellulitis and abscess of hand Code(s): L03.119 - CELLULITIS OF UNSPECIFIED PART OF LIMB; L02.519 - CUTANEOUS ABSCESS OF UNSPECIFIED HAND (8) Cellulitis of left hand Code(s): L03.114 - CELLULITIS OF LEFT UPPER LIMB (9) Suppurative tenosynovitis of flexor tendon of left hand Code(s): M65.142 - OTHER INFECTIVE (TENO)SYNOVITIS, LEFT HAND
[2017-12-31] MEDS: GABAPENTIN 100 MG CAPSULE (FP) PO SCH (21:07)
[2017-12-31] MEDS: ALPRAZolam 0.25 MG TABLET PO PRN (21:07)
[2017-12-31] MEDS: ATORVASTATIN CA 80 MG TABLET (FP) PO SCH (21:07)
[2017-12-31] MEDS: SIMETHICONE 80 MG TAB.CHEW (FP) PO PRN (21:08)
[2017-12-31] MEDS: LIDOCAINE PATCH REMOVAL MC SCH (21:08)
[2017-12-31] MEDS: DOCUSATE SODIUM 100 MG CAPSULE (FP) PO PRN (21:08)
[2018-01-01] MEDS: methylPREDNISolone NA SUCC 40 MG/1 ML VIAL IVPUSH SCH ×3 (02:20→17:07)
[2018-01-01] MEDS ORDERED: LEVOTHYROXINE NA 25 MCG TABLET (FP) ONE (06:23)
[2018-01-01] MEDS ORDERED: LEVOTHYROXINE NA 112 MCG TABLET (FP) ONE (06:23)
[2018-01-01] MEDS: INSULIN SLIDING SCALE (NOVOLOG) 1 VIAL SQ SCH ×4 (06:57→22:39)
[2018-01-01] MEDS: ACETAMINOPHEN 325 MG TABLET (FP) PO PRN (06:58)
[2018-01-01] MEDS: LEVOTHYROXINE 112 MCG, LEVOTHYROXINE 25 MCG PO SCH (06:58)
[2018-01-01 08:08] LABS: SERUM IRON SATURATION 35 % (15-55); TOTAL IRON BINDING CAPACITY 86 ug/dL (250-450); UIBC 56 ug/dL (118-369)
[2018-01-01 08:31] LABS: ANION GAP 8 (8-16); BLOOD UREA NITROGEN 39 mg/dL (7-18); CHLORIDE 101 mmol/L (98-107); CO2 30 mmol/L (21-32); GLUCOSE,RANDOM 240 mg/dL (74-106); POTASSIUM 4.1 mmol/L (3.5-5.1); SODIUM 139 mmol/L (136-145)
[2018-01-01] MEDS ORDERED: PT OWN MED DRAWER 7, Y5N ONE ×2 (09:41→16:40)
--- NOTE | 2018-01-01 09:44 | PN ---
Progress Note, Physician Chief Complaint: Examined pt Daughter at bedside Pt has pain in elft leg, but not unbearable She feels better - Current Medication List Current Medications: Active Medications Acetaminophen (Tylenol -) 650 mg PO Q6H PRN PRN Reason: BACK PAIN Last Admin: 01/01/18 06:58 Dose: 650 mg Albuterol/Ipratropium (Duoneb -) 1 amp NEB Q6H PRN PRN Reason: SHORTNESS OF BREATH Last Admin: 12/31/17 21:45 Dose: 1 amp Alprazolam (Xanax -) 0.25 mg PO Q8H PRN PRN Reason: ANXIETY Last Admin: 12/31/17 21:07 Dose: 0.25 mg Amino Acids (Prosource No Carb Liquid Pkt) 30 ml PO BID@0800,1730 [facility] Last Admin: 12/31/17 17:37 Dose: 30 ml Apixaban (Eliquis -) 2.5 mg PO BID [facility] Last Admin: 12/31/17 21:08 Dose: 2.5 mg Aspirin (Asa -) 81 mg PO DAILY [facility] Last Admin: 12/31/17 10:05 Dose: 81 mg Atorvastatin Calcium (Lipitor -) 80 mg PO HS [facility] Last Admin: 12/31/17 21:07 Dose: 80 mg Bisacodyl (Dulcolax -) 10 mg PO DAILY PRN PRN Reason: CONSTIPATION Last Admin: 12/31/17 10:18 Dose: 10 mg Bisacodyl (Dulcolax Suppository -) 10 mg SC DAILY PRN PRN Reason: CONSTIPATION Docusate Sodium (Colace -) 100 mg PO Q8H PRN PRN Reason: CONSTIPATION Last Admin: 12/31/17 21:08 Dose: 100 mg Escitalopram Oxalate (Lexapro -) 10 mg PO DAILY [facility] Gabapentin (Neurontin -) 100 mg PO HS [facility] Last Admin: 12/31/17 21:07 Dose: 100 mg Guaifenesin (Robitussin Dm -) 10 ml PO Q6H PRN PRN Reason: COUGH Last Admin: 12/31/17 10:18 Dose: 10 ml Cefepime HCl (Maxipime 1 Gm Premix Ivpb) 1 gm in 50 mls @ 100 mls/hr IVPB DAILY [facility] Last Admin: 12/31/17 10:08 Dose: 100 mls/hr Sodium Chloride (Normal Saline -) 250 mls @ 3,000 mls/hr IV PRN PRN PRN Reason: Hypotension during Dialysis Insulin Aspart (Novolog Vial Sliding Scale -) 1 vial SQ ACHS YOAN PRN Reason: Protocol Last Admin: 01/01/18 06:57 Dose: 4 units Levothyroxine Sodium 112 mcg/ (Levothyroxine Sodium 25 mcg) 137 mcg PO DAILY@ 0700 [facility] Last Admin: 01/01/18 06:58 Dose: 137 mcg Lidocaine (Lidoderm Patch -) 1 patch TP DAILY [facility] Last Admin: 12/31/17 10:08 Dose: 1 patch Methylprednisolone Sodium Succinate (Solu-Medrol -) 40 mg IVPUSH Q6H-IV [facility] Last Admin: 01/01/18 02:20 Dose: 40 mg Metoprolol Tartrate (Lopressor -) 12.5 mg PO DAILY [facility] Last Admin: 12/31/17 10:06 Dose: 12.5 mg Miscellaneous (Lidoderm Patch Removal) 1 each MC DAILY@2200 [facility] Last Admin: 12/31/17 21:08 Dose: 1 each Nystatin (Mycostatin Cream -) 1 applic TP DAILY [facility] Last Admin: 12/31/17 12:15 Dose: 1 applic Pantoprazole Sodium (Protonix -) 40 mg PO DAILY [facility] Last Admin: 12/31/17 10:06 Dose: 40 mg Polyethylene Glycol (Miralax (For Daily Use) -) 17 gm PO DAILY [facility] Last Admin: 12/31/17 10:08 Dose: 17 gm Senna (Senna -) 1 tab PO DAILY [facility] Last Admin: 12/31/17 10:06 Dose: 1 tab Sevelamer Carbonate (Renvela -) 1,600 mg PO TIDCM [facility] Last Admin: 12/31/17 17:37 Dose: 1,600 mg Silver Sulfadiazine (Silvadene -) 1 applic TP DAILY [facility] Last Admin: 12/31/17 12:15 Dose: 1 applic Simethicone (Mylicon -) 80 mg PO Q6H PRN PRN Reason: INDIGESTION Last Admin: 12/31/17 21:08 Dose: 80 mg Sodium Thiosulfate (Sodium Thiosulfate) 25 gm IVPB MoWeFr@0800 [facility] Last Admin: 12/30/17 15:35 Dose: 25 gm - Objective Vital Signs: Vital Signs Temperature 98.1 F 01/01/18 06:00 Pulse Rate 100 H 01/01/18 06:00 Respiratory Rate 20 01/01/18 06:00 Blood Pressure 144/77 01/01/18 06:00 O2 Sat by Pulse Oximetry (%) 96 12/31/17 21:00 Constitutional: Yes: No Distress Cardiovascular: Yes: Pulse Irregular, Murmur Respiratory: Yes: Diminished Gastrointestinal: Yes: Normal Bowel Sounds, Soft. No: Tenderness Extremities: Yes: Amputation, Other (no tenderness to left leg) Edema: No Labs: CBC, BMP 12/30/17 06:30 01/01/18 07:00 INR, PTT INR 2.23 (0.82-1.09) H 12/22/17 12:57 Problem List - Problems (1) Depression Code(s): F32.9 - MAJOR DEPRESSIVE DISORDER, SINGLE EPISODE, UNSPECIFIED (2) Dyspnea Code(s): R06.00 - DYSPNEA, UNSPECIFIED (3) ESRD on hemodialysis Code(s): N18.6 - END STAGE RENAL DISEASE; Z99.2 - DEPENDENCE ON RENAL DIALYSIS (4) Leg pain, left Code(s): M79.605 - PAIN IN LEFT LEG (5) Leukocytosis Code(s): D72.829 - ELEVATED WHITE BLOOD CELL COUNT, UNSPECIFIED (6) Atrial fibrillation Code(s): I48.91 - UNSPECIFIED ATRIAL FIBRILLATION Qualifiers: Assessment/Plan PLAN WBC trending down iv antibiotics for pneumonia Pain control HD per Renal spoke with Surgeon-- no further surgeries recommended for hand Pt would like to continue with dialysis for now, but wants pain control Lexapro given at evening as she was too drowsy on it Gabapentin has brought some relief Trial of Tylenol with codeine as oxycodone is too strong per pt medrol taper
[2018-01-01] MEDS: SENNOSIDES 8.6MG TABLET (FP) PO SCH (09:52)
[2018-01-01] MEDS: ESCITALOPRAM OXALATE 10 MG TABLET (FP) PO SCH (09:52)
[2018-01-01] MEDS: ASPIRIN 81 MG CHEWABLE TABLETS PO SCH (09:52)
[2018-01-01] MEDS: CEFEPIME HCL/D5W 1 GM/50 ML BAG IVPB SCH (09:52)
[2018-01-01] MEDS: AMINO ACIDS/PROTEIN HYDROLYS 30 ML LIQUID.PKT PO SCH ×2 (09:52→17:08)
[2018-01-01] MEDS: APIXABAN 2.5 MG TABLET PO SCH ×2 (09:52→22:37)
[2018-01-01] MEDS: SIMETHICONE 80 MG TAB.CHEW (FP) PO PRN ×2 (09:52→17:46)
[2018-01-01] MEDS: METOPROLOL TARTRATE 25 MG TABLET (FP) PO SCH (09:53)
[2018-01-01] MEDS: PANTOPRAZOLE 40 MG TABLET (FP) PO SCH (09:54)
[2018-01-01] MEDS: POLYETHYLENE GLYCOL 3350 119 GM BTL PO SCH (09:58)
[2018-01-01] MEDS: DOCUSATE SODIUM 100 MG CAPSULE (FP) PO PRN (09:58)
[2018-01-01] MEDS: guaiFENesin/D-METHORPHAN HB 10 ML UNIT-DOSE CUPS PO PRN ×2 (09:58→22:38)
[2018-01-01] MEDS: LIDOCAINE 5% TOPICAL PATCH TP SCH (09:59)
[2018-01-01] MEDS: SEVELAMER CARBONATE 800 MG TAB (FP) PO SCH ×3 (09:59→17:08)
[2018-01-01] MEDS: SILVER SULFADIAZINE 1% TOP CREAM 50 GM JAR TP SCH (11:46)
[2018-01-01] MEDS: NYSTATIN 100,000 UNIT/GM TOPICAL CREAM 15 GM TUBE TP SCH (11:46)
--- NOTE | 2018-01-01 11:47 | PN ---
Progress Note, Physician History of Present Illness: PULMONARY ALERT,FEELING BETTER,COMFORTABLE,-SOB - Current Medication List Current Medications: Active Medications Acetaminophen (Tylenol -) 650 mg PO Q6H PRN PRN Reason: BACK PAIN Last Admin: 01/01/18 06:58 Dose: 650 mg Albuterol/Ipratropium (Duoneb -) 1 amp NEB Q6H PRN PRN Reason: SHORTNESS OF BREATH Last Admin: 12/31/17 21:45 Dose: 1 amp Alprazolam (Xanax -) 0.25 mg PO Q8H PRN PRN Reason: ANXIETY Last Admin: 12/31/17 21:07 Dose: 0.25 mg Amino Acids (Prosource No Carb Liquid Pkt) 30 ml PO BID@0800,1730 [facility] Last Admin: 01/01/18 09:52 Dose: 30 ml Apixaban (Eliquis -) 2.5 mg PO BID [facility] Last Admin: 01/01/18 09:52 Dose: 2.5 mg Aspirin (Asa -) 81 mg PO DAILY [facility] Last Admin: 01/01/18 09:52 Dose: 81 mg Atorvastatin Calcium (Lipitor -) 80 mg PO HS [facility] Last Admin: 12/31/17 21:07 Dose: 80 mg Bisacodyl (Dulcolax -) 10 mg PO DAILY PRN PRN Reason: CONSTIPATION Last Admin: 12/31/17 10:18 Dose: 10 mg Bisacodyl (Dulcolax Suppository -) 10 mg AR DAILY PRN PRN Reason: CONSTIPATION Docusate Sodium (Colace -) 100 mg PO Q8H PRN PRN Reason: CONSTIPATION Last Admin: 01/01/18 09:58 Dose: 100 mg Escitalopram Oxalate (Lexapro -) 10 mg PO DAILY [facility] Last Admin: 01/01/18 09:52 Dose: 10 mg Gabapentin (Neurontin -) 100 mg PO HS [facility] Last Admin: 12/31/17 21:07 Dose: 100 mg Guaifenesin (Robitussin Dm -) 10 ml PO Q6H PRN PRN Reason: COUGH Last Admin: 01/01/18 09:58 Dose: 10 ml Cefepime HCl (Maxipime 1 Gm Premix Ivpb) 1 gm in 50 mls @ 100 mls/hr IVPB DAILY [facility] Last Admin: 01/01/18 09:52 Dose: 100 mls/hr Sodium Chloride (Normal Saline -) 250 mls @ 3,000 mls/hr IV PRN PRN PRN Reason: Hypotension during Dialysis Insulin Aspart (Novolog Vial Sliding Scale -) 1 vial SQ ACHS YOAN PRN Reason: Protocol Last Admin: 01/01/18 06:57 Dose: 4 units Levothyroxine Sodium 112 mcg/ (Levothyroxine Sodium 25 mcg) 137 mcg PO DAILY@ 0700 [facility] Last Admin: 01/01/18 06:58 Dose: 137 mcg Lidocaine (Lidoderm Patch -) 1 patch TP DAILY [facility] Last Admin: 01/01/18 09:59 Dose: 1 patch Methylprednisolone Sodium Succinate (Solu-Medrol -) 40 mg IVPUSH Q6H-IV [facility] Last Admin: 01/01/18 09:52 Dose: 40 mg Metoprolol Tartrate (Lopressor -) 12.5 mg PO DAILY [facility] Last Admin: 01/01/18 09:53 Dose: Not Given Miscellaneous (Lidoderm Patch Removal) 1 each MC DAILY@2200 [facility] Last Admin: 12/31/17 21:08 Dose: 1 each Nystatin (Mycostatin Cream -) 1 applic TP DAILY [facility] Last Admin: 12/31/17 12:15 Dose: 1 applic Pantoprazole Sodium (Protonix -) 40 mg PO DAILY [facility] Last Admin: 01/01/18 09:54 Dose: 40 mg Polyethylene Glycol (Miralax (For Daily Use) -) 17 gm PO DAILY [facility] Last Admin: 01/01/18 09:58 Dose: 17 gm Senna (Senna -) 1 tab PO DAILY [facility] Last Admin: 01/01/18 09:52 Dose: 1 tab Sevelamer Carbonate (Renvela -) 1,600 mg PO TIDCM [facility] Last Admin: 01/01/18 09:59 Dose: Not Given Silver Sulfadiazine (Silvadene -) 1 applic TP DAILY [facility] Last Admin: 12/31/17 12:15 Dose: 1 applic Simethicone (Mylicon -) 80 mg PO Q6H PRN PRN Reason: INDIGESTION Last Admin: 01/01/18 09:52 Dose: 80 mg Sodium Thiosulfate (Sodium Thiosulfate) 25 gm IVPB MoWeFr@0800 [facility] Last Admin: 12/30/17 15:35 Dose: 25 gm - Objective Vital Signs: Vital Signs Temperature 98.1 F 01/01/18 06:00 Pulse Rate 100 H 01/01/18 06:00 Respiratory Rate 20 01/01/18 06:00 Blood Pressure 144/77 01/01/18 06:00 O2 Sat by Pulse Oximetry (%) 96 12/31/17 21:00 Constitutional: Yes: Well Nourished, Calm Eyes: Yes: WNL HENT: Yes: WNL Neck: Yes: WNL Cardiovascular: Yes: Pulse Irregular, S1, S2 Respiratory: Yes: Diminished Gastrointestinal: Yes: Normal Bowel Sounds, Soft Extremities: Yes: Amputation (R AKA) Edema: Yes Labs: CBC, BMP 12/30/17 06:30 01/01/18 07:00 INR, PTT INR 2.23 (0.82-1.09) H 12/22/17 12:57 - ....Imaging Chest X-ray: Report Reviewed, Image Reviewed Problem List - Problems (1) Dyspnea Code(s): R06.00 - DYSPNEA, UNSPECIFIED (2) ESRD on hemodialysis Code(s): N18.6 - END STAGE RENAL DISEASE; Z99.2 - DEPENDENCE ON RENAL DIALYSIS (3) Leg wound, left Code(s): S81.802A - UNSPECIFIED OPEN WOUND, LEFT LOWER LEG, INITIAL ENCOUNTER (4) Unilateral AKA Code(s): Z89.619 - ACQUIRED ABSENCE OF UNSPECIFIED LEG ABOVE KNEE (5) Anemia in ESRD (end-stage renal disease) Code(s): N18.6 - END STAGE RENAL DISEASE; D63.1 - ANEMIA IN CHRONIC KIDNEY DISEASE (6) Atrial fibrillation Code(s): I48.91 - UNSPECIFIED ATRIAL FIBRILLATION Qualifiers: (7) CAD (coronary artery disease) Code(s): I25.10 - ATHSCL HEART DISEASE OF [place] CORONARY ARTERY W/O ANG PCTRS Qualifiers: Coronary Disease-Associated Artery/Lesion type: [place] artery [place] vs. transplanted heart: [place] heart Associated angina: without angina Qualified Code(s): I25.10 - Atherosclerotic heart disease of [place] coronary artery without angina pectoris (8) Diabetes Code(s): E11.9 - TYPE 2 DIABETES MELLITUS WITHOUT COMPLICATIONS Qualifiers: (9) ESRD (end stage renal disease) on dialysis Code(s): N18.6 - END STAGE RENAL DISEASE; Z99.2 - DEPENDENCE ON RENAL DIALYSIS (10) Peripheral vascular disease due to secondary diabetes Code(s): E13.51 - OTH DIABETES W DIABETIC PERIPHERAL ANGIOPATHY W/O GANGRENE (11) S/P transmetatarsal amputation of foot Code(s): Z89.439 - ACQUIRED ABSENCE OF UNSPECIFIED FOOT Qualifiers: Laterality: left Qualified Code(s): Z89.432 - Acquired absence of left foot Assessment/Plan A/P Atrial Fibrillation with RVR r/o Sepsis pneumonia DYSPNEA improved ESRD on HD PAD CAD HTN DM Hyperlipidemia - inhaled bronchodilators - HD per renal - rate control - continue anticoagulation - wound care - abx as per id - medrol taper DR JOHNSON
[2018-01-01] MEDS: ALBUTEROL SO4 2.5/IPRATROPIUM 0.5 INH SOL 3 ML VIAL.NEB. NEB PRN ×2 (13:20→20:25)
[2018-01-01] MEDS: ATORVASTATIN CA 80 MG TABLET (FP) PO SCH (22:37)
[2018-01-01] MEDS: GABAPENTIN 100 MG CAPSULE (FP) PO SCH (22:37)
[2018-01-01] MEDS: ACETAMINOPHEN WITH CODEINE 300MG/30MG TABLET PO PRN (22:38)
[2018-01-01] MEDS: LIDOCAINE PATCH REMOVAL MC SCH (22:57)
[2018-01-02] MEDS ORDERED: PT OWN MED DRAWER 7, Y5N ONE ×8 (02:05→23:06)
[2018-01-02] MEDS: methylPREDNISolone NA SUCC 40 MG/1 ML VIAL IVPUSH SCH ×3 (02:11→17:07)
[2018-01-02] MEDS ORDERED: LEVOTHYROXINE NA 112 MCG TABLET (FP) ONE (06:07)
[2018-01-02] MEDS ORDERED: LEVOTHYROXINE NA 25 MCG TABLET (FP) ONE (06:07)
[2018-01-02] MEDS ORDERED: INSULIN (NOVOLOG) ASPART 100 UNITS/ML 10ML VIAL ONE ×2 (06:09→11:29)
[2018-01-02] MEDS: LEVOTHYROXINE 112 MCG, LEVOTHYROXINE 25 MCG PO SCH (06:14)
[2018-01-02] MEDS: INSULIN SLIDING SCALE (NOVOLOG) 1 VIAL SQ SCH ×4 (06:14→23:12)
[2018-01-02] MEDS: ACETAMINOPHEN 325 MG TABLET (FP) PO PRN (06:16)
[2018-01-02] MEDS: ALBUTEROL SO4 2.5/IPRATROPIUM 0.5 INH SOL 3 ML VIAL.NEB. NEB PRN ×2 (06:40→17:48)
[2018-01-02] MEDS ORDERED: SODIUM CHLORIDE 250 ML IV PRN (08:00)
[2018-01-02] MEDS ORDERED: EPOETIN ALFA 10,000 UNIT/1 ML VIAL IVPUSH ONE (08:00)
[2018-01-02] MEDS: SEVELAMER CARBONATE 800 MG TAB (FP) PO SCH ×3 (08:11→17:15)
[2018-01-02] MEDS: AMINO ACIDS/PROTEIN HYDROLYS 30 ML LIQUID.PKT PO SCH ×2 (08:11→17:03)
[2018-01-02 08:39] LABS: HEMATOCRIT 28.2 % (32.4-45.2); HEMOGLOBIN 8.9 GM/dL (10.7-15.3); MCH 32.1 pg (25.7-33.7); MCHC 31.6 g/dl (32.0-36.0); MEAN CELL VOLUME 101.4 fl (80-96); MEAN PLT VOLUME 8.6 fl (7.5-11.1); PLATELET COUNT 386 K/MM3 (134-434); RBC 2.78 M/mm3 (3.60-5.2); RDW 21.3 % (11.6-15.6); WHITE BLOOD COUNT 12.1 K/mm3 (4.0-10.0)
[2018-01-02 08:48] LABS: ANION GAP 11 (8-16); BLOOD UREA NITROGEN 61 mg/dL (7-18); CHLORIDE 100 mmol/L (98-107); CO2 28 mmol/L (21-32); GLUCOSE,RANDOM 207 mg/dL (74-106); POTASSIUM 4.4 mmol/L (3.5-5.1); SODIUM 139 mmol/L (136-145)
[2018-01-02 08:50] LABS: CREATININE 3.8 mg/dL (0.55-1.02); PHOSPHOROUS 4.4 mg/dL (2.5-4.9)
[2018-01-02 09:03] LABS: CALCIUM 6.6 mg/dL (8.5-10.1)
[2018-01-02] MEDS: SODIUM THIOSULFATE 12.5 GM/50 ML VIAL IVPB SCH (09:37)
[2018-01-02] MEDS: ESCITALOPRAM OXALATE 10 MG TABLET (FP) PO SCH ×2 (09:41→23:12)
--- NOTE | 2018-01-02 10:56 | PN ---
Progress Note (short form) - Note Progress Note: pt seen/ examined. chart reviewed overall condition same just finished dialysis pain better afebrile c/c- pain in throat Vital Signs Temp 97.3 F L 01/02/18 06:55 Pulse 99 H 01/02/18 10:35 Resp 18 01/02/18 10:35 BP 112/55 01/02/18 10:35 Pulse Ox 96 01/01/18 21:00 Intake & Output 01/01/18 01/01/18 01/02/18 11:59 23:59 11:59 Intake Total 140 130 150 Balance 140 130 150 Intake: IV 20 10 30 PICC LINE 20 10 30 Oral 120 120 120 Other: Voiding Method Diaper # Unmeasured Voids Void 2 2 Bowel Movement No Yes # Bowel Movements 2 Active Medications Acetaminophen (Tylenol -) 650 mg PO Q6H PRN PRN Reason: BACK PAIN Last Admin: 01/02/18 06:16 Dose: 650 mg Acetaminophen/Codeine Phosphate (Tylenol # 3 -) 1 tab PO Q6H PRN PRN Reason: PAIN LEVEL 6-10 Last Admin: 01/01/18 22:38 Dose: 1 tab Albuterol/Ipratropium (Duoneb -) 1 amp NEB Q6H PRN PRN Reason: SHORTNESS OF BREATH Last Admin: 01/02/18 06:40 Dose: 1 amp Alprazolam (Xanax -) 0.25 mg PO Q8H PRN PRN Reason: ANXIETY Last Admin: 12/31/17 21:07 Dose: 0.25 mg Amino Acids (Prosource No Carb Liquid Pkt) 30 ml PO BID@0800,1730 [facility] Last Admin: 01/02/18 08:11 Dose: Not Given Apixaban (Eliquis -) 2.5 mg PO BID [facility] Last Admin: 01/01/18 22:37 Dose: 2.5 mg Aspirin (Asa -) 81 mg PO DAILY [facility] Last Admin: 01/01/18 09:52 Dose: 81 mg Atorvastatin Calcium (Lipitor -) 80 mg PO HS [facility] Last Admin: 01/01/18 22:37 Dose: 80 mg Bisacodyl (Dulcolax -) 10 mg PO DAILY PRN PRN Reason: CONSTIPATION Last Admin: 12/31/17 10:18 Dose: 10 mg Bisacodyl (Dulcolax Suppository -) 10 mg [place] DAILY PRN PRN Reason: CONSTIPATION Docusate Sodium (Colace -) 100 mg PO Q8H PRN PRN Reason: CONSTIPATION Last Admin: 01/01/18 09:58 Dose: 100 mg Escitalopram Oxalate (Lexapro -) 10 mg PO DAILY [facility] Last Admin: 01/02/18 09:41 Dose: Not Given Gabapentin (Neurontin -) 100 mg PO HS [facility] Last Admin: 01/01/18 22:37 Dose: 100 mg Guaifenesin (Robitussin Dm -) 10 ml PO Q6H PRN PRN Reason: COUGH Last Admin: 01/01/18 22:38 Dose: 10 ml Cefepime HCl (Maxipime 1 Gm Premix Ivpb) 1 gm in 50 mls @ 100 mls/hr IVPB DAILY [facility] Last Admin: 01/01/18 09:52 Dose: 100 mls/hr Sodium Chloride (Normal Saline -) 250 mls @ 3,000 mls/hr IV PRN PRN PRN Reason: Hypotension during Dialysis Sodium Chloride (Normal Saline -) 250 mls @ 3,000 mls/hr IV PRN PRN PRN Reason: Hypotension during Dialysis Stop: 01/03/18 07:59 Insulin Aspart (Novolog Vial Sliding Scale -) 1 vial SQ ACHS [facility] PRN Reason: Protocol Last Admin: 01/02/18 06:14 Dose: 4 units Levothyroxine Sodium 112 mcg/ (Levothyroxine Sodium 25 mcg) 137 mcg PO DAILY@ 0700 [facility] Last Admin: 01/02/18 06:14 Dose: 137 mcg Lidocaine (Lidoderm Patch -) 1 patch TP DAILY [facility] Last Admin: 01/01/18 09:59 Dose: 1 patch Methylprednisolone Sodium Succinate (Solu-Medrol -) 40 mg IVPUSH Q8H-IV [facility] Last Admin: 01/02/18 02:11 Dose: 40 mg Metoprolol Tartrate (Lopressor -) 12.5 mg PO DAILY [facility] Last Admin: 01/01/18 09:53 Dose: Not Given Miscellaneous (Lidoderm Patch Removal) 1 each MC DAILY@2200 [facility] Last Admin: 01/01/18 22:57 Dose: 1 each Nystatin (Mycostatin Cream -) 1 applic TP DAILY [facility] Last Admin: 01/01/18 11:46 Dose: 1 applic Pantoprazole Sodium (Protonix -) 40 mg PO DAILY [facility] Last Admin: 01/01/18 09:54 Dose: 40 mg Polyethylene Glycol (Miralax (For Daily Use) -) 17 gm PO DAILY [facility] Last Admin: 01/01/18 09:58 Dose: 17 gm Senna (Senna -) 1 tab PO DAILY [facility] Last Admin: 01/01/18 09:52 Dose: 1 tab Sevelamer Carbonate (Renvela -) 1,600 mg PO TIDCM [facility] Last Admin: 01/02/18 08:11 Dose: Not Given Silver Sulfadiazine (Silvadene -) 1 applic TP DAILY [facility] Last Admin: 01/01/18 11:46 Dose: 1 applic Simethicone (Mylicon -) 80 mg PO Q6H PRN PRN Reason: INDIGESTION Last Admin: 01/01/18 17:46 Dose: 80 mg Sodium Thiosulfate (Sodium Thiosulfate) 25 gm IVPB MoWeFr@0800 [facility] Last Admin: 01/02/18 09:37 Dose: 25 gm CBC, BMP 01/02/18 07:00 01/02/18 07:00 Microbiology 12/29/17 09:55 Blood Culture - Preliminary Blood - Kate Cath NO GROWTH OBTAINED AFTER 96 HOURS, INCUBATION TO CONTINUE FOR 1 DAYS. 12/29/17 09:26 Blood Culture - Preliminary Blood - Peripheral Venous NO GROWTH OBTAINED AFTER 96 HOURS, INCUBATION TO CONTINUE FOR 1 DAYS. Physical Constitutional: Yes: No Distress. chronic ill appearance Cardiovascular: Yes: Pulse Irregular, Murmur Respiratory: Yes: Diminished-- Gastrointestinal: Yes: Normal Bowel Sounds, Soft. No: Tenderness Extremities: Yes: Amputation, Other (no tenderness to left leg) Edema: No Neuro- alert/ awake Assessment/Plan Discussed . continue present care monitor mm for thrush. overall condition poor. will follow. Discussed with Dr. Bernardo also today. Problem List - Problems (1) ESRD on hemodialysis Code(s): N18.6 - END STAGE RENAL DISEASE; Z99.2 - DEPENDENCE ON RENAL DIALYSIS (2) Left leg cellulitis Code(s): L03.116 - CELLULITIS OF LEFT LOWER LIMB (3) Leukocytosis Code(s): D72.829 - ELEVATED WHITE BLOOD CELL COUNT, UNSPECIFIED (4) Status post transmetatarsal amputation of left foot Code(s): Z89.432 - ACQUIRED ABSENCE OF LEFT FOOT (5) Atrial fibrillation Code(s): I48.91 - UNSPECIFIED ATRIAL FIBRILLATION Qualifiers: (6) CAD (coronary artery disease) Code(s): I25.10 - ATHSCL HEART DISEASE OF [place] CORONARY ARTERY W/O ANG PCTRS Qualifiers: Coronary Disease-Associated Artery/Lesion type: [place] artery [place] vs. transplanted heart: [place] heart Associated angina: without angina Qualified Code(s): I25.10 - Atherosclerotic heart disease of [place] coronary artery without angina pectoris (7) DM type 2 causing complication Code(s): E11.8 - TYPE 2 DIABETES MELLITUS WITH UNSPECIFIED COMPLICATIONS Qualifiers: Diabetes mellitus tank terminal gauger insulin use: with tank terminal gauger use Qualified Code( s): E11.8 - Type 2 diabetes mellitus with unspecified complications; Z79.4 - computer terminal operator (current) use of insulin; Z79.4 - computer terminal operator (current) use of insulin; Z79.4 - FPC (current) use of insulin; Z79.4 - FPC (current) use of insulin (8) Foot amputation status Code(s): Z89.439 - ACQUIRED ABSENCE OF UNSPECIFIED FOOT (9) Hypothyroidism Code(s): E03.9 - HYPOTHYROIDISM, UNSPECIFIED Qualifiers:
[2018-01-02] MEDS: NYSTATIN 100,000 UNIT/GM TOPICAL CREAM 15 GM TUBE TP SCH (11:16)
[2018-01-02] MEDS: SENNOSIDES 8.6MG TABLET (FP) PO SCH (11:16)
[2018-01-02] MEDS: ASPIRIN 81 MG CHEWABLE TABLETS PO SCH (11:16)
[2018-01-02] MEDS: PANTOPRAZOLE 40 MG TABLET (FP) PO SCH (11:16)
[2018-01-02] MEDS: APIXABAN 2.5 MG TABLET PO SCH ×2 (11:16→23:12)
[2018-01-02] MEDS: POLYETHYLENE GLYCOL 3350 119 GM BTL PO SCH (11:16)
[2018-01-02] MEDS: SILVER SULFADIAZINE 1% TOP CREAM 50 GM JAR TP SCH (11:17)
[2018-01-02] MEDS: LIDOCAINE 5% TOPICAL PATCH TP SCH (11:18)
[2018-01-02] MEDS: CEFEPIME HCL/D5W 1 GM/50 ML BAG IVPB SCH (11:18)
[2018-01-02] MEDS: METOPROLOL TARTRATE 25 MG TABLET (FP) PO SCH (11:18)
[2018-01-02] MEDS: guaiFENesin/D-METHORPHAN HB 10 ML UNIT-DOSE CUPS PO PRN (11:40)
--- NOTE | 2018-01-02 11:46 | PN ---
Progress Note, Physician History of Present Illness: pulmonary alert,more congested today,s/p HD - Current Medication List Current Medications: Active Medications Acetaminophen (Tylenol -) 650 mg PO Q6H PRN PRN Reason: BACK PAIN Last Admin: 01/02/18 06:16 Dose: 650 mg Acetaminophen/Codeine Phosphate (Tylenol # 3 -) 1 tab PO Q6H PRN PRN Reason: PAIN LEVEL 6-10 Last Admin: 01/01/18 22:38 Dose: 1 tab Albuterol/Ipratropium (Duoneb -) 1 amp NEB Q6H PRN PRN Reason: SHORTNESS OF BREATH Last Admin: 01/02/18 06:40 Dose: 1 amp Alprazolam (Xanax -) 0.25 mg PO Q8H PRN PRN Reason: ANXIETY Last Admin: 12/31/17 21:07 Dose: 0.25 mg Amino Acids (Prosource No Carb Liquid Pkt) 30 ml PO BID@0800,1730 [facility] Last Admin: 01/02/18 08:11 Dose: Not Given Apixaban (Eliquis -) 2.5 mg PO BID [facility] Last Admin: 01/02/18 11:16 Dose: 2.5 mg Aspirin (Asa -) 81 mg PO DAILY [facility] Last Admin: 01/02/18 11:16 Dose: 81 mg Atorvastatin Calcium (Lipitor -) 80 mg PO [facility] Last Admin: 01/01/18 22:37 Dose: 80 mg Bisacodyl (Dulcolax -) 10 mg PO DAILY PRN PRN Reason: CONSTIPATION Last Admin: 12/31/17 10:18 Dose: 10 mg Bisacodyl (Dulcolax Suppository -) 10 mg [place] DAILY PRN PRN Reason: CONSTIPATION Docusate Sodium (Colace -) 100 mg PO Q8H PRN PRN Reason: CONSTIPATION Last Admin: 01/01/18 09:58 Dose: 100 mg Escitalopram Oxalate (Lexapro -) 10 mg PO DAILY [facility] Last Admin: 01/02/18 09:41 Dose: Not Given Gabapentin (Neurontin -) 100 mg PO HS [facility] Last Admin: 01/01/18 22:37 Dose: 100 mg Guaifenesin (Robitussin Dm -) 10 ml PO Q6H PRN PRN Reason: COUGH Last Admin: 01/02/18 11:40 Dose: 10 ml Cefepime HCl (Maxipime 1 Gm Premix Ivpb) 1 gm in 50 mls @ 100 mls/hr IVPB DAILY [facility] Last Admin: 01/02/18 11:18 Dose: 100 mls/hr Sodium Chloride (Normal Saline -) 250 mls @ 3,000 mls/hr IV PRN PRN PRN Reason: Hypotension during Dialysis Sodium Chloride (Normal Saline -) 250 mls @ 3,000 mls/hr IV PRN PRN PRN Reason: Hypotension during Dialysis Stop: 01/03/18 07:59 Insulin Aspart (Novolog Vial Sliding Scale -) 1 vial SQ ACHS [facility] PRN Reason: Protocol Last Admin: 01/02/18 11:40 Dose: 6 units Levothyroxine Sodium 112 mcg/ (Levothyroxine Sodium 25 mcg) 137 mcg PO DAILY@ 0700 [facility] Last Admin: 01/02/18 06:14 Dose: 137 mcg Lidocaine (Lidoderm Patch -) 1 patch TP DAILY [facility] Last Admin: 01/02/18 11:18 Dose: 1 patch Methylprednisolone Sodium Succinate (Solu-Medrol -) 40 mg IVPUSH Q8H-IV [facility] Last Admin: 01/02/18 11:17 Dose: 40 mg Metoprolol Tartrate (Lopressor -) 12.5 mg PO DAILY [facility] Last Admin: 01/02/18 11:18 Dose: Not Given Miscellaneous (Lidoderm Patch Removal) 1 each MC DAILY@2200 [facility] Last Admin: 01/01/18 22:57 Dose: 1 each Nystatin (Mycostatin Cream -) 1 applic TP DAILY [facility] Last Admin: 01/02/18 11:16 Dose: 1 applic Pantoprazole Sodium (Protonix -) 40 mg PO DAILY [facility] Last Admin: 01/02/18 11:16 Dose: 40 mg Polyethylene Glycol (Miralax (For Daily Use) -) 17 gm PO DAILY [facility] Last Admin: 01/02/18 11:16 Dose: 17 gm Senna (Senna -) 1 tab PO DAILY [facility] Last Admin: 01/02/18 11:16 Dose: 1 tab Sevelamer Carbonate (Renvela -) 1,600 mg PO TIDCM [facility] Last Admin: 01/02/18 11:40 Dose: 1,600 mg Silver Sulfadiazine (Silvadene -) 1 applic TP DAILY [facility] Last Admin: 01/02/18 11:17 Dose: 1 applic Simethicone (Mylicon -) 80 mg PO Q6H PRN PRN Reason: INDIGESTION Last Admin: 01/01/18 17:46 Dose: 80 mg Sodium Thiosulfate (Sodium Thiosulfate) 25 gm IVPB MoWeFr@0800 [facility] Last Admin: 01/02/18 09:37 Dose: 25 gm - Objective Vital Signs: Vital Signs Temperature 97.3 F L 01/02/18 06:55 Pulse Rate 99 H 01/02/18 10:35 Respiratory Rate 18 01/02/18 10:35 Blood Pressure 112/55 01/02/18 10:35 O2 Sat by Pulse Oximetry (%) 96 01/02/18 09:00 Constitutional: Yes: Well Nourished, Calm Eyes: Yes: WNL HENT: Yes: WNL Neck: Yes: WNL Cardiovascular: Yes: Regular Rate and Rhythm, Pulse Irregular, S1, S2 Respiratory: Yes: Rhonchi (SCATTERED RHONCHI) Gastrointestinal: Yes: Normal Bowel Sounds, Soft Extremities: Yes: Amputation (R AKA) Labs: CBC, BMP 01/02/18 07:00 INR, PTT INR 2.23 (0.82-1.09) H 12/22/17 12:57 Problem List - Problems (1) Dyspnea Code(s): R06.00 - DYSPNEA, UNSPECIFIED (2) ESRD on hemodialysis Code(s): N18.6 - END STAGE RENAL DISEASE; Z99.2 - DEPENDENCE ON RENAL DIALYSIS (3) Leg wound, left Code(s): S81.802A - UNSPECIFIED OPEN WOUND, LEFT LOWER LEG, INITIAL ENCOUNTER (4) Unilateral AKA Code(s): Z89.619 - ACQUIRED ABSENCE OF UNSPECIFIED LEG ABOVE KNEE (5) Anemia in ESRD (end-stage renal disease) Code(s): N18.6 - END STAGE RENAL DISEASE; D63.1 - ANEMIA IN CHRONIC KIDNEY DISEASE (6) Atrial fibrillation Code(s): I48.91 - UNSPECIFIED ATRIAL FIBRILLATION Qualifiers: (7) CAD (coronary artery disease) Code(s): I25.10 - ATHSCL HEART DISEASE OF [place] CORONARY ARTERY W/O ANG PCTRS Qualifiers: Coronary Disease-Associated Artery/Lesion type: [place] artery [place] vs. transplanted heart: [place] heart Associated angina: without angina Qualified Code(s): I25.10 - Atherosclerotic heart disease of [place] coronary artery without angina pectoris (8) Diabetes Code(s): E11.9 - TYPE 2 DIABETES MELLITUS WITHOUT COMPLICATIONS Qualifiers: (9) ESRD (end stage renal disease) on dialysis Code(s): N18.6 - END STAGE RENAL DISEASE; Z99.2 - DEPENDENCE ON RENAL DIALYSIS (10) Peripheral vascular disease due to secondary diabetes Code(s): E13.51 - OTH DIABETES W DIABETIC PERIPHERAL ANGIOPATHY W/O GANGRENE (11) S/P transmetatarsal amputation of foot Code(s): Z89.439 - ACQUIRED ABSENCE OF UNSPECIFIED FOOT Qualifiers: Laterality: left Qualified Code(s): Z89.432 - Acquired absence of left foot Assessment/Plan A/P Atrial Fibrillation with RVR r/o Sepsis pneumonia DYSPNEA improved ESRD on HD PAD CAD HTN DM Hyperlipidemia - inhaled bronchodilators - HD per renal - rate control - continue anticoagulation - wound care - abx as per id - medrol - chest x-ray DR JOHNSON
[2018-01-02 11:50] LABS: CREATININE 1.1 mg/dL (0.55-1.02)
--- NOTE | 2018-01-02 12:04 | PN ---
Progress Note (short form) - Note Progress Note: less left leg pain s/p HDno longer able to expectorate any sputum Vital Signs Period Temp Pulse Resp BP Sys/Cordero Pulse Ox Last 24 Hr 97.3 F-98.3 F 1-114 18-101 95-131/44-94 96-96 +thrush cor-rrr lungs decreased bs at bases abd soft,LLQ mass unchanged leg less tender dressing intact CBC, BMP 01/02/18 07:00 01/02/18 10:40 Microbiology 01/01/18 07:00 Sputum - Expectorated Sputum Culture - Preliminary Yeast Like Organism 12/29/17 09:55 Blood - Kate Cath Blood Culture - Preliminary NO GROWTH OBTAINED AFTER 96 HOURS, INCUBATION TO CONTINUE FOR 1 DAYS. 12/29/17 09:26 Blood - Peripheral Venous Blood Culture - Preliminary NO GROWTH OBTAINED AFTER 96 HOURS, INCUBATION TO CONTINUE FOR 1 DAYS. 12/21/17 23:30 Blood - Peripheral Venous Blood Culture - Final NO GROWTH AFTER 5 DAYS INCUBATION 12/21/17 23:30 Blood - Peripheral Venous Blood Culture - Final NO GROWTH AFTER 5 DAYS INCUBATION 12/22/17 00:52 Leg - Left Lower Gram Stain - Final 12/22/17 00:52 Leg - Left Lower Wound Culture - Final Pseudomonas Aeruginosa Yeast Like Organism a/p HCAP- continue cefepime/nebs, encourage incentive spirometry-day #6 antibiotics not sure if this is pneumonia or atelectasis suggest chest PT as well for f/u cxray per pulmonary esrd/hd severe PAD overall doing poorly d/w patient would consider hospice evaluation- our interventions appear limited- palliative care eval has been requested Problem List - Problems (1) Leucocytosis Code(s): D72.829 - ELEVATED WHITE BLOOD CELL COUNT, UNSPECIFIED (2) Leg pain, left Code(s): M79.605 - PAIN IN LEFT LEG (3) History of ESBL Klebsiella pneumoniae infection Code(s): Z86.19 - PERSONAL HISTORY OF OTHER INFECTIOUS AND PARASITIC DISEASES (4) ESRD on hemodialysis Code(s): N18.6 - END STAGE RENAL DISEASE; Z99.2 - DEPENDENCE ON RENAL DIALYSIS
[2018-01-02] MEDS: MAG HYDROX/ALH/SMC/DPHA/LIDO 240 ML MOUTHWASH MM SCH ×3 (13:47→23:12)
[2018-01-02] MEDS: NYSTATIN 500,000 UNITS/5 ML SUSPENSION PO SCH ×2 (17:04→23:31)
--- NOTE | 2018-01-02 18:19 | PN ---
Progress Note (short form) - Note Progress Note: Renal follow up for ESRD on HD Pt seen and examined at the bedside s/p dialysis this am with 3kg UF no sob, chest pain, abd pain leg pain is improved continues to have congestion Vital Signs Temperature 98.4 F 01/02/18 14:00 Pulse Rate 103 H 01/02/18 14:00 Respiratory Rate 18 01/02/18 14:00 Blood Pressure 126/91 01/02/18 14:00 O2 Sat by Pulse Oximetry (%) 96 01/02/18 09:00 Intake & Output 12/30/17 12/31/17 01/01/18 01/02/18 23:59 23:59 23:59 23:59 Intake Total 261 140 270 150 Balance 261 140 270 150 Weight 80.399 kg 79.549 kg NAD RRR Dec BS soft NT/ND No LE edema CBC, BMP 01/02/18 07:00 01/02/18 10:40 Current Medications Acetaminophen (Tylenol -) 650 mg PO Q6H PRN PRN Reason: BACK PAIN Last Admin: 01/02/18 06:16 Dose: 650 mg Acetaminophen/Codeine Phosphate (Tylenol # 3 -) 1 tab PO Q6H PRN PRN Reason: PAIN LEVEL 6-10 Last Admin: 01/01/18 22:38 Dose: 1 tab Albuterol/Ipratropium (Duoneb -) 1 amp NEB Q6H PRN PRN Reason: SHORTNESS OF BREATH Last Admin: 01/02/18 06:40 Dose: 1 amp Alprazolam (Xanax -) 0.25 mg PO Q8H PRN PRN Reason: ANXIETY Last Admin: 12/31/17 21:07 Dose: 0.25 mg Amino Acids (Prosource No Carb Liquid Pkt) 30 ml PO BID@0800,1730 [facility] Last Admin: 01/02/18 17:03 Dose: 30 ml Apixaban (Eliquis -) 2.5 mg PO BID [facility] Last Admin: 01/02/18 11:16 Dose: 2.5 mg Aspirin (Asa -) 81 mg PO DAILY [facility] Last Admin: 01/02/18 11:16 Dose: 81 mg Atorvastatin Calcium (Lipitor -) 80 mg PO HS [facility] Last Admin: 01/01/18 22:37 Dose: 80 mg Bisacodyl (Dulcolax -) 10 mg PO DAILY PRN PRN Reason: CONSTIPATION Last Admin: 12/31/17 10:18 Dose: 10 mg Bisacodyl (Dulcolax Suppository -) 10 mg [place] DAILY PRN PRN Reason: CONSTIPATION Docusate Sodium (Colace -) 100 mg PO Q8H PRN PRN Reason: CONSTIPATION Last Admin: 01/01/18 09:58 Dose: 100 mg Escitalopram Oxalate (Lexapro -) 10 mg PO [facility] Gabapentin (Neurontin -) 100 mg PO HS [facility] Last Admin: 01/01/18 22:37 Dose: 100 mg Guaifenesin (Robitussin Dm -) 10 ml PO Q6H PRN PRN Reason: COUGH Last Admin: 01/02/18 11:40 Dose: 10 ml Cefepime HCl (Maxipime 1 Gm Premix Ivpb) 1 gm in 50 mls @ 100 mls/hr IVPB DAILY [facility] Last Admin: 01/02/18 11:18 Dose: 100 mls/hr Sodium Chloride (Normal Saline -) 250 mls @ 3,000 mls/hr IV PRN PRN PRN Reason: Hypotension during Dialysis Sodium Chloride (Normal Saline -) 250 mls @ 3,000 mls/hr IV PRN PRN PRN Reason: Hypotension during Dialysis Stop: 01/03/18 07:59 Insulin Aspart (Novolog Vial Sliding Scale -) 1 vial SQ ACHS [facility] PRN Reason: Protocol Last Admin: 01/02/18 17:03 Dose: 2 units Levothyroxine Sodium 112 mcg/ (Levothyroxine Sodium 25 mcg) 137 mcg PO DAILY@ 0700 [facility] Last Admin: 01/02/18 06:14 Dose: 137 mcg Lidocaine (Lidoderm Patch -) 1 patch TP DAILY [facility] Last Admin: 01/02/18 11:18 Dose: 1 patch Lidocaine/Aluminum/Magnesium/Simeth (Magic Mouthwash *Sjr Formula* -) 5 ml MM Q6HPO [facility] Last Admin: 01/02/18 17:03 Dose: 5 ml Methylprednisolone Sodium Succinate (Solu-Medrol -) 40 mg IVPUSH Q8H-IV [facility] Last Admin: 01/02/18 17:07 Dose: 40 mg Metoprolol Tartrate (Lopressor -) 12.5 mg PO DAILY [facility] Last Admin: 01/02/18 11:18 Dose: Not Given Miscellaneous (Lidoderm Patch Removal) 1 each MC DAILY@2200 [facility] Last Admin: 01/01/18 22:57 Dose: 1 each Nystatin (Mycostatin Cream -) 1 applic TP DAILY [facility] Last Admin: 01/02/18 11:16 Dose: 1 applic Nystatin (Nystatin Oral Suspension -) 500,000 units PO Q6HPO [facility] Last Admin: 01/02/18 17:04 Dose: 500,000 units Pantoprazole Sodium (Protonix -) 40 mg PO DAILY [facility] Last Admin: 01/02/18 11:16 Dose: 40 mg Polyethylene Glycol (Miralax (For Daily Use) -) 17 gm PO DAILY [facility] Last Admin: 01/02/18 11:16 Dose: 17 gm Senna (Senna -) 1 tab PO DAILY [facility] Last Admin: 01/02/18 11:16 Dose: 1 tab Sevelamer Carbonate (Renvela -) 1,600 mg PO TIDCM [facility] Last Admin: 01/02/18 17:15 Dose: 1,600 mg Silver Sulfadiazine (Silvadene -) 1 applic TP DAILY [facility] Last Admin: 01/02/18 11:17 Dose: 1 applic Simethicone (Mylicon -) 80 mg PO Q6H PRN PRN Reason: INDIGESTION Last Admin: 01/01/18 17:46 Dose: 80 mg Sodium Thiosulfate (Sodium Thiosulfate) 25 gm IVPB MoWeFr@0800 [facility] Last Admin: 01/02/18 09:37 Dose: 25 gm 72 year old woman with PMhx of ESRD on HD, Hypertension, CAD, PVD s/p amputations, Afib on Eliquis, Calciphylaxis who presented with LE wound and admitted for Sepsis. 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 consolidation #Calciphaylaxis #CKD Related Anemia #Hypothyroidism clinically stable LE pain is improved tolerated dialysis well this am continue Cefepime as per ID continue sodium thiosulfate with HD Will continue [place] with HD prognosis is guarded Wan Cruz DO
--- NOTE | 2018-01-02 19:59 | PN ---
Progress Note (short form) - Note Progress Note: 72 year old female admitted with severe pain, swelling and tenderness to touch involving the left thigh. 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 Known case of CAD, s/p MT, s/p PCI/ Stenting, ESRD-HD, h/o atrial fib, advanced AV block, s/p PPM, s/p rt. AKA, partial amputation of the left foot. Patient feels better today, was undergoing dialysis when examined. Appetite remains poor, no SOB or chest pain reported. denies pain involvind the the LLE. Active Medications Generic Name Dose Route Start Last Admin Trade Name Freq PRN Reason Stop Dose Admin Acetaminophen 650 mg 12/30/17 12:09 01/02/18 06:16 Tylenol - PO 650 mg Q6H PRN Administration BACK PAIN Acetaminophen/Codeine Phosphate 1 tab 01/01/18 12:11 01/01/18 22:38 Tylenol # 3 - PO 1 tab Q6H PRN Administration PAIN LEVEL 6-10 Albuterol/Ipratropium 1 amp 12/30/17 18:36 01/02/18 17:48 Duoneb - NEB 1 amp Q6H PRN Administration SHORTNESS OF BREATH Alprazolam 0.25 mg 12/30/17 12:08 12/31/17 21:07 Xanax - PO 0.25 mg Q8H PRN Administration ANXIETY Amino Acids 30 ml 12/22/17 08:00 01/02/18 17:03 Prosource No Carb Liquid Pkt PO 30 ml BID@0800,1730 YOAN Administration Apixaban 2.5 mg 12/24/17 11:15 01/02/18 11:16 Eliquis - PO 2.5 mg BID YOAN Administration Aspirin 81 mg 12/22/17 10:00 01/02/18 11:16 Asa - PO 81 mg DAILY YOAN Administration Atorvastatin Calcium 80 mg 12/25/17 22:00 01/01/18 22:37 Lipitor - PO 80 mg HS YOAN Administration Bisacodyl 10 mg 12/24/17 11:15 12/31/17 10:18 Dulcolax - PO 10 mg DAILY PRN Administration CONSTIPATION Bisacodyl 10 mg 12/31/17 13:34 Dulcolax Suppository - [place] DAILY PRN CONSTIPATION Docusate Sodium 100 mg 12/31/17 13:34 01/01/18 09:58 Colace - PO 100 mg Q8H PRN Administration CONSTIPATION Escitalopram Oxalate 10 mg 01/02/18 22:00 Lexapro - PO HS YOAN Gabapentin 100 mg 12/30/17 22:00 01/01/18 22:37 Neurontin - PO 100 mg HS YOAN Administration Guaifenesin 10 ml 12/23/17 17:34 01/02/18 11:40 Robitussin Dm - PO 10 ml Q6H PRN Administration COUGH Cefepime HCl 1 gm in 50 mls @ 100 mls/hr 12/28/17 18:45 01/02/18 11:18 Maxipime 1 Gm Premix Ivpb IVPB 100 mls/hr DAILY YOAN Administration Sodium Chloride 250 mls @ 3,000 mls/hr 12/30/17 07:04 Normal Saline - IV PRN PRN Hypotension during Dialysis Sodium Chloride 250 mls @ 3,000 mls/hr 01/02/18 08:00 Normal Saline - IV 01/03/18 07:59 PRN PRN Hypotension during Dialysis Insulin Aspart 1 vial 12/22/17 07:00 01/02/18 17:03 Novolog Vial Sliding Scale - SQ 2 units ACHS YOAN Administration Protocol Levothyroxine Sodium 112 mcg/ 137 mcg 12/25/17 07:00 01/02/18 06:14 Levothyroxine Sodium 25 mcg PO 137 mcg DAILY@0700 YOAN Administration Lidocaine 1 patch 12/24/17 12:30 01/02/18 11:18 Lidoderm Patch - TP 1 patch DAILY YOAN Administration Lidocaine/Aluminum/Magnesium/Simeth 5 ml 01/02/18 12:00 01/02/18 17:03 Magic Mouthwash *Sjr Formula* - MM 5 ml Q6HPO YOAN Administration Methylprednisolone Sodium Succinate 40 mg 01/01/18 18:00 01/02/18 17:07 Solu-Medrol - IVPUSH 40 mg Q8H-IV YOAN Administration Metoprolol Tartrate 12.5 mg 12/22/17 10:00 01/02/18 11:18 Lopressor - PO Not Given DAILY YOAN Miscellaneous 1 each 12/24/17 22:00 01/01/18 22:57 Lidoderm Patch Removal MC 1 each DAILY@2200 YOAN Administration Nystatin 1 applic 12/22/17 10:00 01/02/18 11:16 Mycostatin Cream - TP 1 applic DAILY YOAN Administration Nystatin 500,000 units 01/02/18 18:00 01/02/18 17:04 Nystatin Oral Suspension - PO 500,000 units Q6HPO YOAN Administration Pantoprazole Sodium 40 mg 12/22/17 10:00 01/02/18 11:16 Protonix - PO 40 mg DAILY YOAN Administration Polyethylene Glycol 17 gm 12/30/17 15:00 01/02/18 11:16 Miralax (For Daily Use) - PO 17 gm DAILY YOAN Administration Senna 1 tab 12/22/17 10:00 01/02/18 11:16 Senna - PO 1 tab DAILY YOAN Administration Sevelamer Carbonate 1,600 mg 12/22/17 17:30 01/02/18 17:15 Renvela - PO 1,600 mg TIDCM YOAN Administration Silver Sulfadiazine 1 applic 12/22/17 10:00 01/02/18 11:17 Silvadene - TP 1 applic DAILY YOAN Administration Simethicone 80 mg 12/31/17 20:46 01/01/18 17:46 Mylicon - PO 80 mg Q6H PRN Administration INDIGESTION Sodium Thiosulfate 25 gm 12/23/17 08:00 01/02/18 09:37 Sodium Thiosulfate IVPB 25 gm MoWeFr@0800 YOAN Administration 72 year old female in respiratory distress, pallor +, no cyanosis, no clubbing or jaundice. Last Vital Signs Temp Pulse Resp BP Pulse Ox 97.3 F L 108 H 18 136/87 99 12/29/17 18:00 12/29/17 18:00 12/29/17 18:00 12/29/17 18:00 12/29/17 09:00 NECK: Supple, no JVD, +ve HJR carotids 1-2+, no bruit appreciated. HEART: PMI in the 5th ICS, gradeI/ LINDA 2nd Rt. ICS, no gallops. LUNGS: Scattered creps. ABDOMEN: Soft, nontender, no organomegaly. Firm lesions involving the left abdominal wall. No masses felt. EXT: AKA, partial amputation of the Lt. foot. Significant reduction of swelling of the LLE no pain on touch. CBC, BMP 01/02/18 07:00 01/02/18 10:40 IMPRESSION: 1.CHF, resolved. 2.Atrial fib. with rapid ventricular response. 3.Recurring vasculitis, needs exclusion.. 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 b).Rheumatogical disease. c).Other Vasculitides. d).Medications. 2.CAD, s/p PCI/Stenting. 3.IDDM with multi system involvement. 4.ESRD-HD. 5.LV systolic dysfunction. 6.Anemia, probably of chronic disease. 7.S/p PPM for Advanced AV block. 8.Multiple amputations. 9.Dyslipidemia. 10.Reddness,tendernes and swelling of the Lt. lateral calf,cellulitis needs exclusion, 11.See extensive CTA report. RECOMMENDATIONS: 1.vascular surgical evaluation 2.Rheumatological evaluation. 3.Heme/Oncological consultation. 4.BETTE,RA factor. 5.ANCA. 6.Close F/u of BMP. 7.Pulmonary PT.
[2018-01-02] MEDS: SIMETHICONE 80 MG TAB.CHEW (FP) PO PRN (23:12)
[2018-01-02] MEDS: GABAPENTIN 100 MG CAPSULE (FP) PO SCH (23:12)
[2018-01-02] MEDS: ATORVASTATIN CA 80 MG TABLET (FP) PO SCH (23:13)
[2018-01-02] MEDS: DOCUSATE SODIUM 100 MG CAPSULE (FP) PO PRN (23:13)
[2018-01-02] MEDS: LIDOCAINE PATCH REMOVAL MC SCH (23:13)
[2018-01-02] MEDS: ACETAMINOPHEN WITH CODEINE 300MG/30MG TABLET PO PRN (23:14)
[2018-01-03] MEDS: ALBUTEROL SO4 2.5/IPRATROPIUM 0.5 INH SOL 3 ML VIAL.NEB. NEB PRN ×3 (00:38→21:15)
[2018-01-03] MEDS: methylPREDNISolone NA SUCC 40 MG/1 ML VIAL IVPUSH SCH ×3 (01:40→17:52)
[2018-01-03] MEDS ORDERED: LEVOTHYROXINE NA 25 MCG TABLET (FP) ONE (05:48)
[2018-01-03] MEDS ORDERED: PT OWN MED DRAWER 7, Y5N ONE (05:48)
[2018-01-03] MEDS ORDERED: LEVOTHYROXINE NA 112 MCG TABLET (FP) ONE (05:48)
[2018-01-03] MEDS: NYSTATIN 500,000 UNITS/5 ML SUSPENSION PO SCH ×4 (06:00→23:30)
[2018-01-03] MEDS: MAG HYDROX/ALH/SMC/DPHA/LIDO 240 ML MOUTHWASH MM SCH ×4 (06:00→23:30)
[2018-01-03] MEDS: LEVOTHYROXINE 112 MCG, LEVOTHYROXINE 25 MCG PO SCH (06:00)
[2018-01-03] MEDS: guaiFENesin/D-METHORPHAN HB 10 ML UNIT-DOSE CUPS PO PRN (06:01)
[2018-01-03] MEDS: INSULIN SLIDING SCALE (NOVOLOG) 1 VIAL SQ SCH ×4 (06:01→23:29)
[2018-01-03] MEDS ORDERED: INSULIN (NOVOLOG) ASPART 100 UNITS/ML 10ML VIAL ONE (07:26)
[2018-01-03] MEDS ORDERED: SODIUM CHLORIDE 250 ML IV PRN ×2 (10:00)
--- NOTE | 2018-01-03 10:16 | PN ---
Progress Note (short form) - Note Progress Note: 72 year old female admitted with severe pain, swelling and tenderness to touch involving the left thigh. 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 Known case of CAD, s/p HI, s/p PCI/ Stenting, ESRD-HD, h/o atrial fib, advanced AV block, s/p PPM, s/p rt. AKA, partial amputation of the left foot. No pain or discomfort, still coughing but unable to expectorate, no SOB reported. Periods of rapid ventricular response. Active Medications Generic Name Dose Route Start Last Admin Trade Name Freq PRN Reason Stop Dose Admin Acetaminophen 650 mg 12/30/17 12:09 01/02/18 06:16 Tylenol - PO 650 mg Q6H PRN Administration BACK PAIN Acetaminophen/Codeine Phosphate 1 tab 01/01/18 12:11 01/02/18 23:14 Tylenol # 3 - PO 1 tab Q6H PRN Administration PAIN LEVEL 6-10 Albuterol/Ipratropium 1 amp 12/30/17 18:36 01/03/18 06:22 Duoneb - NEB 1 amp Q6H PRN Administration SHORTNESS OF BREATH Alprazolam 0.25 mg 12/30/17 12:08 12/31/17 21:07 Xanax - PO 0.25 mg Q8H PRN Administration ANXIETY Amino Acids 30 ml 12/22/17 08:00 01/02/18 17:03 Prosource No Carb Liquid Pkt PO 30 ml BID@0800,1730 YOAN Administration Apixaban 2.5 mg 12/24/17 11:15 01/02/18 23:12 Eliquis - PO 2.5 mg BID YOAN Administration Aspirin 81 mg 12/22/17 10:00 01/02/18 11:16 Asa - PO 81 mg DAILY YOAN Administration Atorvastatin Calcium 80 mg 12/25/17 22:00 01/02/18 23:13 Lipitor - PO 80 mg HS YOAN Administration Bisacodyl 10 mg 12/24/17 11:15 12/31/17 10:18 Dulcolax - PO 10 mg DAILY PRN Administration CONSTIPATION Bisacodyl 10 mg 12/31/17 13:34 Dulcolax Suppository - [place] DAILY PRN CONSTIPATION Docusate Sodium 100 mg 12/31/17 13:34 01/02/18 23:13 Colace - PO 100 mg Q8H PRN Administration CONSTIPATION Escitalopram Oxalate 10 mg 01/02/18 22:00 01/02/18 23:12 Lexapro - PO 10 mg HS YOAN Administration Gabapentin 100 mg 12/30/17 22:00 01/02/18 23:12 Neurontin - PO 100 mg HS YOAN Administration Guaifenesin 10 ml 12/23/17 17:34 01/03/18 06:01 Robitussin Dm - PO 10 ml Q6H PRN Administration COUGH Cefepime HCl 1 gm in 50 mls @ 100 mls/hr 12/28/17 18:45 01/02/18 11:18 Maxipime 1 Gm Premix Ivpb IVPB 100 mls/hr DAILY YOAN Administration Sodium Chloride 250 mls @ 3,000 mls/hr 12/30/17 07:04 Normal Saline - IV PRN PRN Hypotension during Dialysis Insulin Aspart 1 vial 12/22/17 07:00 01/03/18 06:01 Novolog Vial Sliding Scale - SQ 8 units ACHS YOAN Administration Protocol Levothyroxine Sodium 112 mcg/ 137 mcg 12/25/17 07:00 01/03/18 06:00 Levothyroxine Sodium 25 mcg PO 137 mcg DAILY@0700 YOAN Administration Lidocaine 1 patch 12/24/17 12:30 01/02/18 11:18 Lidoderm Patch - TP 1 patch DAILY YOAN Administration Lidocaine/Aluminum/Magnesium/Simeth 5 ml 01/02/18 12:00 01/03/18 06:00 Magic Mouthwash *Sjr Formula* - MM 5 ml Q6HPO YOAN Administration Methylprednisolone Sodium Succinate 40 mg 01/01/18 18:00 01/03/18 01:40 Solu-Medrol - IVPUSH 40 mg Q8H-IV YOAN Administration Metoprolol Tartrate 12.5 mg 12/22/17 10:00 01/02/18 11:18 Lopressor - PO Not Given DAILY YOAN Miscellaneous 1 each 12/24/17 22:00 01/02/18 23:13 Lidoderm Patch Removal MC 1 each DAILY@2200 YOAN Administration Nystatin 1 applic 12/22/17 10:00 01/02/18 11:16 Mycostatin Cream - TP 1 applic DAILY YOAN Administration Nystatin 500,000 units 01/02/18 18:00 01/03/18 06:00 Nystatin Oral Suspension - PO 500,000 units Q6HPO YOAN Administration Pantoprazole Sodium 40 mg 12/22/17 10:00 01/02/18 11:16 Protonix - PO 40 mg DAILY YOAN Administration Polyethylene Glycol 17 gm 12/30/17 15:00 01/02/18 11:16 Miralax (For Daily Use) - PO 17 gm DAILY YOAN Administration Senna 1 tab 12/22/17 10:00 01/02/18 11:16 Senna - PO 1 tab DAILY YOAN Administration Sevelamer Carbonate 1,600 mg 12/22/17 17:30 01/02/18 17:15 Renvela - PO 1,600 mg TIDCM YOAN Administration Silver Sulfadiazine 1 applic 12/22/17 10:00 01/02/18 11:17 Silvadene - TP 1 applic DAILY YOAN Administration Simethicone 80 mg 12/31/17 20:46 01/02/18 23:12 Mylicon - PO 80 mg Q6H PRN Administration INDIGESTION Sodium Thiosulfate 25 gm 12/23/17 08:00 01/02/18 09:37 Sodium Thiosulfate IVPB 25 gm MoWeFr@0800 YOAN Administration 72 year old female in respiratory distress, pallor +, no cyanosis, no clubbing or jaundice. Last Vital Signs Temp Pulse Resp BP Pulse Ox 97.7 F 112 H 20 127/69 96 01/03/18 08:36 01/03/18 08:36 01/03/18 08:36 01/03/18 08:36 01/02/18 22:00 NECK: Supple, no JVD, +ve HJR carotids 1-2+, no bruit appreciated. HEART: PMI in the 5th ICS, gradeI/ LINDA 2nd Rt. ICS, no gallops. LUNGS: Coarse breath sounds, and crepitations bilaterally. ABDOMEN: Soft, nontender, no organomegaly. Firm lesions involving the left abdominal wall. No masses felt. EXT: AKA, partial amputation of the Lt. foot. Significant reduction of swelling of the LLE and no pain elicited on touch. CBC, BMP 01/02/18 07:00 01/02/18 10:40 IMPRESSION: 1.Persistent cough and difficulty to expectorate due to retained secretions and atelectasis. 2.Atrial fib. with rapid ventricular response. 3.Recurring vasculitis, needs exclusion.. 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 b).Rheumatogical disease. c).Other Vasculitides. d).Medications. 4.CAD, s/p PCI/Stenting. 5.IDDM with multi system involvement. 6.ESRD-HD. 7.LV systolic dysfunction. 8.Anemia, probably of chronic disease. 9.S/p PPM for Advanced AV block. 10.Multiple amputations. 11.Dyslipidemia. 12.Reddness,tendernes and swelling of the Lt. lateral calf,cellulitis needs exclusion, 13.See extensive CTA report. 14. S/p CHF. RECOMMENDATIONS: 1.Increase ambulation. 2.Chest PT in progress. 3.F/u CMP
[2018-01-03] MEDS: CEFEPIME HCL/D5W 1 GM/50 ML BAG IVPB SCH (10:27)
[2018-01-03] MEDS: SILVER SULFADIAZINE 1% TOP CREAM 50 GM JAR TP SCH (10:27)
[2018-01-03] MEDS: METOPROLOL TARTRATE 25 MG TABLET (FP) PO SCH (10:27)
[2018-01-03] MEDS: SEVELAMER CARBONATE 800 MG TAB (FP) PO SCH ×3 (10:28→17:53)
[2018-01-03] MEDS: PANTOPRAZOLE 40 MG TABLET (FP) PO SCH (10:28)
[2018-01-03] MEDS: APIXABAN 2.5 MG TABLET PO SCH ×2 (10:28→23:28)
[2018-01-03] MEDS: ASPIRIN 81 MG CHEWABLE TABLETS PO SCH (10:28)
[2018-01-03] MEDS: AMINO ACIDS/PROTEIN HYDROLYS 30 ML LIQUID.PKT PO SCH ×2 (10:29→17:53)
[2018-01-03] MEDS: LIDOCAINE 5% TOPICAL PATCH TP SCH (11:03)
--- NOTE | 2018-01-03 11:40 | PN ---
Progress Note, Physician Chief Complaint: Examined pt Daughter at bedside She feels better pain is better controlled - Current Medication List Current Medications: Active Medications Acetaminophen (Tylenol -) 650 mg PO Q6H PRN PRN Reason: BACK PAIN Last Admin: 01/02/18 06:16 Dose: 650 mg Acetaminophen/Codeine Phosphate (Tylenol # 3 -) 1 tab PO Q6H PRN PRN Reason: PAIN LEVEL 6-10 Last Admin: 01/02/18 23:14 Dose: 1 tab Albuterol/Ipratropium (Duoneb -) 1 amp NEB Q6H PRN PRN Reason: SHORTNESS OF BREATH Last Admin: 01/03/18 06:22 Dose: 1 amp Alprazolam (Xanax -) 0.25 mg PO Q8H PRN PRN Reason: ANXIETY Last Admin: 12/31/17 21:07 Dose: 0.25 mg Amino Acids (Prosource No Carb Liquid Pkt) 30 ml PO BID@0800,1730 [facility] Last Admin: 01/03/18 10:29 Dose: 30 ml Apixaban (Eliquis -) 2.5 mg PO BID [facility] Last Admin: 01/03/18 10:28 Dose: 2.5 mg Aspirin (Asa -) 81 mg PO DAILY [facility] Last Admin: 01/03/18 10:28 Dose: 81 mg Atorvastatin Calcium (Lipitor -) 80 mg PO HS [facility] Last Admin: 01/02/18 23:13 Dose: 80 mg Bisacodyl (Dulcolax -) 10 mg PO DAILY PRN PRN Reason: CONSTIPATION Last Admin: 12/31/17 10:18 Dose: 10 mg Bisacodyl (Dulcolax Suppository -) 10 mg [place] DAILY PRN PRN Reason: CONSTIPATION Docusate Sodium (Colace -) 100 mg PO Q8H PRN PRN Reason: CONSTIPATION Last Admin: 01/02/18 23:13 Dose: 100 mg Escitalopram Oxalate (Lexapro -) 10 mg PO HS [facility] Last Admin: 01/02/18 23:12 Dose: 10 mg Gabapentin (Neurontin -) 100 mg PO HS [facility] Last Admin: 01/02/18 23:12 Dose: 100 mg Guaifenesin (Robitussin Dm -) 10 ml PO Q6H PRN PRN Reason: COUGH Last Admin: 01/03/18 06:01 Dose: 10 ml Cefepime HCl (Maxipime 1 Gm Premix Ivpb) 1 gm in 50 mls @ 100 mls/hr IVPB DAILY [facility] Last Admin: 01/03/18 10:27 Dose: 100 mls/hr Sodium Chloride (Normal Saline -) 250 mls @ 3,000 mls/hr IV PRN PRN PRN Reason: Hypotension during Dialysis Insulin Aspart (Novolog Vial Sliding Scale -) 1 vial SQ ACHS YOAN PRN Reason: Protocol Last Admin: 01/03/18 06:01 Dose: 8 units Levothyroxine Sodium 112 mcg/ (Levothyroxine Sodium 25 mcg) 137 mcg PO DAILY@ 0700 [facility] Last Admin: 01/03/18 06:00 Dose: 137 mcg Lidocaine (Lidoderm Patch -) 1 patch TP DAILY [facility] Last Admin: 01/03/18 11:03 Dose: 1 patch Lidocaine/Aluminum/Magnesium/Simeth (Magic Mouthwash *Sjr Formula* -) 5 ml MM Q6HPO [facility] Last Admin: 01/03/18 06:00 Dose: 5 ml Methylprednisolone Sodium Succinate (Solu-Medrol -) 40 mg IVPUSH Q8H-IV [facility] Last Admin: 01/03/18 10:27 Dose: 40 mg Metoprolol Tartrate (Lopressor -) 12.5 mg PO DAILY [facility] Last Admin: 01/03/18 10:27 Dose: 12.5 mg Miscellaneous (Lidoderm Patch Removal) 1 each MC DAILY@2200 [facility] Last Admin: 01/02/18 23:13 Dose: 1 each Nystatin (Mycostatin Cream -) 1 applic TP DAILY [facility] Last Admin: 01/02/18 11:16 Dose: 1 applic Nystatin (Nystatin Oral Suspension -) 500,000 units PO Q6HPO [facility] Last Admin: 01/03/18 06:00 Dose: 500,000 units Pantoprazole Sodium (Protonix -) 40 mg PO DAILY [facility] Last Admin: 01/03/18 10:28 Dose: 40 mg Polyethylene Glycol (Miralax (For Daily Use) -) 17 gm PO DAILY [facility] Last Admin: 01/02/18 11:16 Dose: 17 gm Senna (Senna -) 1 tab PO DAILY [facility] Last Admin: 01/02/18 11:16 Dose: 1 tab Sevelamer Carbonate (Renvela -) 1,600 mg PO TIDCM [facility] Last Admin: 01/03/18 10:28 Dose: 1,600 mg Silver Sulfadiazine (Silvadene -) 1 applic TP DAILY [facility] Last Admin: 01/03/18 10:27 Dose: 1 applic Simethicone (Mylicon -) 80 mg PO Q6H PRN PRN Reason: INDIGESTION Last Admin: 01/02/18 23:12 Dose: 80 mg Sodium Thiosulfate (Sodium Thiosulfate) 25 gm IVPB MoWeFr@0800 [facility] Last Admin: 01/02/18 09:37 Dose: 25 gm - Objective Vital Signs: Vital Signs Temperature 97.7 F 01/03/18 08:36 Pulse Rate 112 H 01/03/18 08:36 Respiratory Rate 20 01/03/18 08:36 Blood Pressure 127/69 01/03/18 08:36 O2 Sat by Pulse Oximetry (%) 96 01/02/18 22:00 Constitutional: Yes: No Distress Cardiovascular: Yes: Pulse Irregular, Murmur Respiratory: Yes: Diminished. No: Rales, Rhonchi Gastrointestinal: Yes: Normal Bowel Sounds, Soft. No: Tenderness Edema: No Labs: CBC, BMP 01/02/18 07:00 01/02/18 10:40 INR, PTT INR 2.23 (0.82-1.09) H 12/22/17 12:57 Problem List - Problems (1) Depression Code(s): F32.9 - MAJOR DEPRESSIVE DISORDER, SINGLE EPISODE, UNSPECIFIED (2) Dyspnea Code(s): R06.00 - DYSPNEA, UNSPECIFIED (3) ESRD on hemodialysis Code(s): N18.6 - END STAGE RENAL DISEASE; Z99.2 - DEPENDENCE ON RENAL DIALYSIS (4) Leg pain, left Code(s): M79.605 - PAIN IN LEFT LEG (5) Leukocytosis Code(s): D72.829 - ELEVATED WHITE BLOOD CELL COUNT, UNSPECIFIED (6) Atrial fibrillation Code(s): I48.91 - UNSPECIFIED ATRIAL FIBRILLATION Qualifiers: Assessment/Plan PLAN WBC trending down iv antibiotics for pneumonia Pain control HD per Renal spoke with Surgeon-- no further surgeries recommended for hand Pt would like to continue with dialysis for now, but wants pain control Lexapro given at evening as she was too drowsy on it Gabapentin has brought some relief Tylenol with codeine helps pt spoke to pt and daughter that no further surgeries planned at this time medrol taper
[2018-01-03] MEDS: NYSTATIN 100,000 UNIT/GM TOPICAL CREAM 15 GM TUBE TP SCH (13:06)
[2018-01-03] MEDS: SENNOSIDES 8.6MG TABLET (FP) PO SCH (13:24)
--- NOTE | 2018-01-03 14:59 | PN ---
Progress Note (short form) - Note Progress Note: PULMONARY Breathing continues to slowly improve. +nonproductive cough. Dialyzed yesterday. Last Vital Signs Temp Pulse Resp BP Pulse Ox 97.7 F 112 H 20 127/69 96 01/03/18 08:36 01/03/18 08:36 01/03/18 08:36 01/03/18 08:36 01/02/18 22:00 Gen: less tachypneic Heart: irregular Lung: bilateral rhonchi Abd: soft, nontender Ext: less edema, R AKA CBC, BMP 01/02/18 07:00 01/02/18 10:40 Active Medications Acetaminophen (Tylenol -) 650 mg PO Q6H PRN PRN Reason: BACK PAIN Last Admin: 01/02/18 06:16 Dose: 650 mg Acetaminophen/Codeine Phosphate (Tylenol # 3 -) 1 tab PO Q6H PRN PRN Reason: PAIN LEVEL 6-10 Last Admin: 01/02/18 23:14 Dose: 1 tab Albuterol/Ipratropium (Duoneb -) 1 amp NEB Q6H PRN PRN Reason: SHORTNESS OF BREATH Last Admin: 01/03/18 06:22 Dose: 1 amp Amino Acids (Prosource No Carb Liquid Pkt) 30 ml PO BID@0800,1730 [facility] Last Admin: 01/03/18 10:29 Dose: 30 ml Apixaban (Eliquis -) 2.5 mg PO BID [facility] Last Admin: 01/03/18 10:28 Dose: 2.5 mg Aspirin (Asa -) 81 mg PO DAILY [facility] Last Admin: 01/03/18 10:28 Dose: 81 mg Atorvastatin Calcium (Lipitor -) 80 mg PO [facility] Last Admin: 01/02/18 23:13 Dose: 80 mg Bisacodyl (Dulcolax -) 10 mg PO DAILY PRN PRN Reason: CONSTIPATION Last Admin: 12/31/17 10:18 Dose: 10 mg Bisacodyl (Dulcolax Suppository -) 10 mg [place] DAILY PRN PRN Reason: CONSTIPATION Docusate Sodium (Colace -) 100 mg PO Q8H PRN PRN Reason: CONSTIPATION Last Admin: 01/02/18 23:13 Dose: 100 mg Escitalopram Oxalate (Lexapro -) 10 mg PO [facility] Last Admin: 01/02/18 23:12 Dose: 10 mg Gabapentin (Neurontin -) 100 mg PO HS [facility] Last Admin: 01/02/18 23:12 Dose: 100 mg Guaifenesin (Robitussin Dm -) 10 ml PO Q6H PRN PRN Reason: COUGH Last Admin: 01/03/18 06:01 Dose: 10 ml Cefepime HCl (Maxipime 1 Gm Premix Ivpb) 1 gm in 50 mls @ 100 mls/hr IVPB DAILY [facility] Last Admin: 01/03/18 10:27 Dose: 100 mls/hr Sodium Chloride (Normal Saline -) 250 mls @ 3,000 mls/hr IV PRN PRN PRN Reason: Hypotension during Dialysis Insulin Aspart (Novolog Vial Sliding Scale -) 1 vial SQ ACHS YOAN PRN Reason: Protocol Last Admin: 01/03/18 13:07 Dose: 4 units Levothyroxine Sodium 112 mcg/ (Levothyroxine Sodium 25 mcg) 137 mcg PO DAILY@ 0700 [facility] Last Admin: 01/03/18 06:00 Dose: 137 mcg Lidocaine (Lidoderm Patch -) 1 patch TP DAILY [facility] Last Admin: 01/03/18 11:03 Dose: 1 patch Lidocaine/Aluminum/Magnesium/Simeth (Magic Mouthwash *Sjr Formula* -) 5 ml MM Q6HPO [facility] Last Admin: 01/03/18 13:07 Dose: 5 ml Methylprednisolone Sodium Succinate (Solu-Medrol -) 40 mg IVPUSH Q8H-IV [facility] Last Admin: 01/03/18 10:27 Dose: 40 mg Metoprolol Tartrate (Lopressor -) 12.5 mg PO DAILY [facility] Last Admin: 01/03/18 10:27 Dose: 12.5 mg Miscellaneous (Lidoderm Patch Removal) 1 each MC DAILY@2200 [facility] Last Admin: 01/02/18 23:13 Dose: 1 each Nystatin (Mycostatin Cream -) 1 applic TP DAILY [facility] Last Admin: 01/03/18 13:06 Dose: 1 applic Nystatin (Nystatin Oral Suspension -) 500,000 units PO Q6HPO [facility] Last Admin: 01/03/18 13:08 Dose: 500,000 units Pantoprazole Sodium (Protonix -) 40 mg PO DAILY [facility] Last Admin: 01/03/18 10:28 Dose: 40 mg Polyethylene Glycol (Miralax (For Daily Use) -) 17 gm PO DAILY [facility] Last Admin: 01/02/18 11:16 Dose: 17 gm Senna (Senna -) 1 tab PO DAILY [facility] Last Admin: 01/03/18 13:24 Dose: 1 tab Sevelamer Carbonate (Renvela -) 1,600 mg PO TIDCM [facility] Last Admin: 01/03/18 13:24 Dose: 1,600 mg Silver Sulfadiazine (Silvadene -) 1 applic TP DAILY [facility] Last Admin: 01/03/18 10:27 Dose: 1 applic Simethicone (Mylicon -) 80 mg PO Q6H PRN PRN Reason: INDIGESTION Last Admin: 01/02/18 23:12 Dose: 80 mg Sodium Thiosulfate (Sodium Thiosulfate) 25 gm IVPB MoWeFr@0800 [facility] Last Admin: 01/02/18 09:37 Dose: 25 gm A/P Atrial Fibrillation with RVR r/o Pneumonia/Sepsis ESRD on HD PAD CAD HTN DM Hyperlipidemia - antibiotics per ID - monitor fever curve, WBC trend - HD per renal with UF - rate control - continue anticoagulation - wound care - continue medrol - inhaled bronchodilators - O2 as needed
[2018-01-03] MEDS: ACETAMINOPHEN WITH CODEINE 300MG/30MG TABLET PO PRN ×2 (15:21→23:28)
--- NOTE | 2018-01-03 17:00 | PN ---
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 no CP, SOB + cough Vital Signs Temperature 98 F 01/03/18 14:05 Pulse Rate 92 H 01/03/18 14:05 Respiratory Rate 20 01/03/18 14:05 Blood Pressure 118/75 01/03/18 14:05 O2 Sat by Pulse Oximetry (%) 96 01/03/18 09:00 Intake & Output 12/31/17 01/01/18 01/02/18 01/03/18 23:59 23:59 23:59 23:59 Intake Total 140 270 280 140 Balance 140 270 280 140 Weight 79.549 kg NAD RRR Dec BS soft NT/ND No LE edema CBC, BMP 01/02/18 07:00 01/02/18 10:40 Current Medications Acetaminophen (Tylenol -) 650 mg PO Q6H PRN PRN Reason: BACK PAIN Last Admin: 01/02/18 06:16 Dose: 650 mg Acetaminophen/Codeine Phosphate (Tylenol # 3 -) 1 tab PO Q6H PRN PRN Reason: PAIN LEVEL 6-10 Last Admin: 01/03/18 15:21 Dose: 1 tab Albuterol/Ipratropium (Duoneb -) 1 amp NEB Q6H PRN PRN Reason: SHORTNESS OF BREATH Last Admin: 01/03/18 06:22 Dose: 1 amp Amino Acids (Prosource No Carb Liquid Pkt) 30 ml PO BID@0800,1730 [facility] Last Admin: 01/03/18 10:29 Dose: 30 ml Apixaban (Eliquis -) 2.5 mg PO BID [facility] Last Admin: 01/03/18 10:28 Dose: 2.5 mg Aspirin (Asa -) 81 mg PO DAILY [facility] Last Admin: 01/03/18 10:28 Dose: 81 mg Atorvastatin Calcium (Lipitor -) 80 mg PO HS [facility] Last Admin: 01/02/18 23:13 Dose: 80 mg Bisacodyl (Dulcolax -) 10 mg PO DAILY PRN PRN Reason: CONSTIPATION Last Admin: 12/31/17 10:18 Dose: 10 mg Bisacodyl (Dulcolax Suppository -) 10 mg MT DAILY PRN PRN Reason: CONSTIPATION Docusate Sodium (Colace -) 100 mg PO Q8H PRN PRN Reason: CONSTIPATION Last Admin: 01/02/18 23:13 Dose: 100 mg Escitalopram Oxalate (Lexapro -) 10 mg PO HS [facility] Last Admin: 01/02/18 23:12 Dose: 10 mg Gabapentin (Neurontin -) 100 mg PO HS [facility] Last Admin: 01/02/18 23:12 Dose: 100 mg Guaifenesin (Robitussin Dm -) 10 ml PO Q6H PRN PRN Reason: COUGH Last Admin: 01/03/18 06:01 Dose: 10 ml Cefepime HCl (Maxipime 1 Gm Premix Ivpb) 1 gm in 50 mls @ 100 mls/hr IVPB DAILY [facility] Last Admin: 01/03/18 10:27 Dose: 100 mls/hr Sodium Chloride (Normal Saline -) 250 mls @ 3,000 mls/hr IV PRN PRN PRN Reason: Hypotension during Dialysis Insulin Aspart (Novolog Vial Sliding Scale -) 1 vial SQ ACHS [facility] PRN Reason: Protocol Last Admin: 01/03/18 13:07 Dose: 4 units Levothyroxine Sodium 112 mcg/ (Levothyroxine Sodium 25 mcg) 137 mcg PO DAILY@ 0700 [facility] Last Admin: 01/03/18 06:00 Dose: 137 mcg Lidocaine (Lidoderm Patch -) 1 patch TP DAILY [facility] Last Admin: 01/03/18 11:03 Dose: 1 patch Lidocaine/Aluminum/Magnesium/Simeth (Magic Mouthwash *Sjr Formula* -) 5 ml MM Q6HPO [facility] Last Admin: 01/03/18 13:07 Dose: 5 ml Methylprednisolone Sodium Succinate (Solu-Medrol -) 40 mg IVPUSH Q8H-IV [facility] Last Admin: 01/03/18 10:27 Dose: 40 mg Metoprolol Tartrate (Lopressor -) 12.5 mg PO DAILY [facility] Last Admin: 01/03/18 10:27 Dose: 12.5 mg Miscellaneous (Lidoderm Patch Removal) 1 each MC DAILY@2200 [facility] Last Admin: 01/02/18 23:13 Dose: 1 each Nystatin (Mycostatin Cream -) 1 applic TP DAILY [facility] Last Admin: 01/03/18 13:06 Dose: 1 applic Nystatin (Nystatin Oral Suspension -) 500,000 units PO Q6HPO [facility] Last Admin: 01/03/18 13:08 Dose: 500,000 units Pantoprazole Sodium (Protonix -) 40 mg PO DAILY [facility] Last Admin: 01/03/18 10:28 Dose: 40 mg Polyethylene Glycol (Miralax (For Daily Use) -) 17 gm PO DAILY [facility] Last Admin: 01/02/18 11:16 Dose: 17 gm Senna (Senna -) 1 tab PO DAILY [facility] Last Admin: 01/03/18 13:24 Dose: 1 tab Sevelamer Carbonate (Renvela -) 1,600 mg PO TIDCM [facility] Last Admin: 01/03/18 13:24 Dose: 1,600 mg Silver Sulfadiazine (Silvadene -) 1 applic TP DAILY [facility] Last Admin: 01/03/18 10:27 Dose: 1 applic Simethicone (Mylicon -) 80 mg PO Q6H PRN PRN Reason: INDIGESTION Last Admin: 01/02/18 23:12 Dose: 80 mg Sodium Thiosulfate (Sodium Thiosulfate) 25 gm IVPB MoWeFr@0800 [facility] Last Admin: 01/02/18 09:37 Dose: 25 gm 72 year old woman with PMhx of ESRD on HD, Hypertension, CAD, PVD s/p amputations, Afib on Eliquis, Calciphylaxis who presented with LE wound and admitted for Sepsis. 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 consolidation #Calciphaylaxis #CKD Related Anemia #Hypothyroidism for SALES [employer]ANT tomorrow with aggressive UF Continue Abx for suspected PNA continue sodium thiosulfate with HD [place] with HD Wan Cruz DO
[2018-01-03] MEDS: POLYETHYLENE GLYCOL 3350 119 GM BTL PO SCH (17:54)
[2018-01-03] MEDS: ATORVASTATIN CA 80 MG TABLET (FP) PO SCH (23:27)
[2018-01-03] MEDS: ESCITALOPRAM OXALATE 10 MG TABLET (FP) PO SCH (23:28)
[2018-01-03] MEDS: GABAPENTIN 100 MG CAPSULE (FP) PO SCH (23:28)
[2018-01-03] MEDS: LIDOCAINE PATCH REMOVAL MC SCH (23:29)
[2018-01-04 00:09] LABS: ATYPICAL pANCA <1:20 titer (Neg:<1:20); C-ANCA <1:20 titer (Neg:<1:20); P-ANCA <1:20 titer (Neg:<1:20); PROTEINASE-3 ANTIBODY <3.5 U/mL (0.0-3.5)
[2018-01-04] MEDS: methylPREDNISolone NA SUCC 40 MG/1 ML VIAL IVPUSH SCH ×4 (01:39→21:48)
[2018-01-04] MEDS ORDERED: LEVOTHYROXINE NA 112 MCG TABLET (FP) ONE (06:14)
[2018-01-04] MEDS ORDERED: LEVOTHYROXINE NA 25 MCG TABLET (FP) ONE (06:14)
[2018-01-04] MEDS: LEVOTHYROXINE 112 MCG, LEVOTHYROXINE 25 MCG PO SCH (06:28)
[2018-01-04] MEDS: MAG HYDROX/ALH/SMC/DPHA/LIDO 240 ML MOUTHWASH MM SCH ×3 (06:29→18:06)
[2018-01-04] MEDS: NYSTATIN 500,000 UNITS/5 ML SUSPENSION PO SCH ×3 (06:29→18:08)
[2018-01-04] MEDS: INSULIN SLIDING SCALE (NOVOLOG) 1 VIAL SQ SCH ×4 (06:29→21:48)
[2018-01-04] MEDS ORDERED: EPOETIN ALFA 20,000 UNIT/1 ML VIAL IVPUSH ONE (10:00)
[2018-01-04] MEDS ORDERED: HEPARIN NA (PORCINE) 5,000 UNITS/ML 1ML VIAL IVPUSH ONE (10:00)
--- NOTE | 2018-01-04 11:08 | PN ---
Progress Note, Physician Chief Complaint: Examined pt She feels better pain is better controlled - Current Medication List Current Medications: Active Medications Acetaminophen (Tylenol -) 650 mg PO Q6H PRN PRN Reason: BACK PAIN Last Admin: 01/02/18 06:16 Dose: 650 mg Acetaminophen/Codeine Phosphate (Tylenol # 3 -) 1 tab PO Q6H PRN PRN Reason: PAIN LEVEL 6-10 Last Admin: 01/03/18 23:28 Dose: 1 tab Albuterol/Ipratropium (Duoneb -) 1 amp NEB Q6H PRN PRN Reason: SHORTNESS OF BREATH Last Admin: 01/03/18 21:15 Dose: 1 amp Amino Acids (Prosource No Carb Liquid Pkt) 30 ml PO BID@0800,1730 [facility] Last Admin: 01/03/18 17:53 Dose: 30 ml Apixaban (Eliquis -) 2.5 mg PO BID [facility] Last Admin: 01/03/18 23:28 Dose: 2.5 mg Aspirin (Asa -) 81 mg PO DAILY [facility] Last Admin: 01/03/18 10:28 Dose: 81 mg Atorvastatin Calcium (Lipitor -) 80 mg PO HS [facility] Last Admin: 01/03/18 23:27 Dose: 80 mg Bisacodyl (Dulcolax -) 10 mg PO DAILY PRN PRN Reason: CONSTIPATION Last Admin: 12/31/17 10:18 Dose: 10 mg Bisacodyl (Dulcolax Suppository -) 10 mg [place] DAILY PRN PRN Reason: CONSTIPATION Docusate Sodium (Colace -) 100 mg PO Q8H PRN PRN Reason: CONSTIPATION Last Admin: 01/02/18 23:13 Dose: 100 mg Escitalopram Oxalate (Lexapro -) 10 mg PO HS [facility] Last Admin: 01/03/18 23:28 Dose: 10 mg Gabapentin (Neurontin -) 100 mg PO HS [facility] Last Admin: 01/03/18 23:28 Dose: 100 mg Guaifenesin (Robitussin Dm -) 10 ml PO Q6H PRN PRN Reason: COUGH Last Admin: 01/03/18 06:01 Dose: 10 ml Cefepime HCl (Maxipime 1 Gm Premix Ivpb) 1 gm in 50 mls @ 100 mls/hr IVPB DAILY [facility] Last Admin: 01/03/18 10:27 Dose: 100 mls/hr Sodium Chloride (Normal Saline -) 250 mls @ 3,000 mls/hr IV PRN PRN PRN Reason: Hypotension during Dialysis Insulin Aspart (Novolog Vial Sliding Scale -) 1 vial SQ ACHS [facility] PRN Reason: Protocol Last Admin: 01/04/18 06:29 Dose: 6 units Levothyroxine Sodium 112 mcg/ (Levothyroxine Sodium 25 mcg) 137 mcg PO DAILY@ 0700 [facility] Last Admin: 01/04/18 06:28 Dose: 137 mcg Lidocaine (Lidoderm Patch -) 1 patch TP DAILY [facility] Last Admin: 01/03/18 11:03 Dose: 1 patch Lidocaine/Aluminum/Magnesium/Simeth (Magic Mouthwash *Sjr Formula* -) 5 ml MM Q6HPO [facility] Last Admin: 01/04/18 06:29 Dose: 5 ml Methylprednisolone Sodium Succinate (Solu-Medrol -) 40 mg IVPUSH Q8H-IV [facility] Last Admin: 01/04/18 01:39 Dose: 40 mg Metoprolol Tartrate (Lopressor -) 12.5 mg PO DAILY [facility] Last Admin: 01/03/18 10:27 Dose: 12.5 mg Miscellaneous (Lidoderm Patch Removal) 1 each MC DAILY@2200 [facility] Last Admin: 01/03/18 23:29 Dose: 1 each Nystatin (Mycostatin Cream -) 1 applic TP DAILY [facility] Last Admin: 01/03/18 13:06 Dose: 1 applic Nystatin (Nystatin Oral Suspension -) 500,000 units PO Q6HPO [facility] Last Admin: 01/04/18 06:29 Dose: 500,000 units Pantoprazole Sodium (Protonix -) 40 mg PO DAILY [facility] Last Admin: 01/03/18 10:28 Dose: 40 mg Polyethylene Glycol (Miralax (For Daily Use) -) 17 gm PO DAILY [facility] Last Admin: 01/03/18 17:54 Dose: 17 gm Senna (Senna -) 1 tab PO DAILY [facility] Last Admin: 01/03/18 13:24 Dose: 1 tab Sevelamer Carbonate (Renvela -) 1,600 mg PO TIDCM [facility] Last Admin: 01/03/18 17:53 Dose: 1,600 mg Silver Sulfadiazine (Silvadene -) 1 applic TP DAILY [facility] Last Admin: 01/03/18 10:27 Dose: 1 applic Simethicone (Mylicon -) 80 mg PO Q6H PRN PRN Reason: INDIGESTION Last Admin: 01/02/18 23:12 Dose: 80 mg Sodium Thiosulfate (Sodium Thiosulfate) 25 gm IVPB MoWeFr@0800 [facility] Last Admin: 01/02/18 09:37 Dose: 25 gm - Objective Vital Signs: Vital Signs Temperature 97.5 F L 01/04/18 06:00 Pulse Rate 96 H 01/04/18 06:00 Respiratory Rate 18 01/04/18 08:49 Blood Pressure 149/77 01/04/18 06:00 O2 Sat by Pulse Oximetry (%) 98 01/04/18 08:49 Constitutional: Yes: No Distress Cardiovascular: Yes: Pulse Irregular Respiratory: Yes: Diminished Gastrointestinal: Yes: Normal Bowel Sounds, Soft. No: Tenderness Edema: No Labs: CBC, BMP 01/02/18 07:00 01/02/18 10:40 INR, PTT INR 2.23 (0.82-1.09) H 12/22/17 12:57 Problem List - Problems (1) Depression Code(s): F32.9 - MAJOR DEPRESSIVE DISORDER, SINGLE EPISODE, UNSPECIFIED (2) Dyspnea Code(s): R06.00 - DYSPNEA, UNSPECIFIED (3) ESRD on hemodialysis Code(s): N18.6 - END STAGE RENAL DISEASE; Z99.2 - DEPENDENCE ON RENAL DIALYSIS (4) Leg pain, left Code(s): M79.605 - PAIN IN LEFT LEG (5) Leukocytosis Code(s): D72.829 - ELEVATED WHITE BLOOD CELL COUNT, UNSPECIFIED (6) Atrial fibrillation Code(s): I48.91 - UNSPECIFIED ATRIAL FIBRILLATION Qualifiers: Assessment/Plan PLAN WBC trending down iv antibiotics for pneumonia -- ID will follow up with regards to duration of antibiotics Pain control HD per Renal spoke with Surgeon-- no further surgeries recommended for hand Pt would like to continue with dialysis for now, but wants pain control Lexapro given at evening as she was too drowsy on it Gabapentin has brought some relief Tylenol with codeine helps pt spoke to pt and daughter that no further surgeries planned at this time medrol taper dc planning
[2018-01-04] MEDS ORDERED: PT OWN MED DRAWER 7, Y5N ONE ×2 (11:41→12:03)
[2018-01-04 11:49] LABS: HEMATOCRIT 30.1 % (32.4-45.2); HEMOGLOBIN 9.5 GM/dL (10.7-15.3); MCH 32.3 pg (25.7-33.7); MCHC 31.7 g/dl (32.0-36.0); MEAN CELL VOLUME 101.7 fl (80-96); MEAN PLT VOLUME 8.5 fl (7.5-11.1); PLATELET COUNT 424 K/MM3 (134-434); RBC 2.95 M/mm3 (3.60-5.2); RDW 21.1 % (11.6-15.6); WHITE BLOOD COUNT 10.1 K/mm3 (4.0-10.0)
[2018-01-04 12:11] LABS: ANION GAP 8 (8-16); BLOOD UREA NITROGEN 62 mg/dL (7-18); CHLORIDE 101 mmol/L (98-107); CO2 30 mmol/L (21-32); CREATININE 3.5 mg/dL (0.55-1.02); GLUCOSE,RANDOM 175 mg/dL (74-106); PHOSPHOROUS 2.7 mg/dL (2.5-4.9); POTASSIUM 4.7 mmol/L (3.5-5.1); SODIUM 139 mmol/L (136-145)
[2018-01-04] MEDS: SODIUM THIOSULFATE 12.5 GM/50 ML VIAL IVPB SCH (12:59)
--- NOTE | 2018-01-04 13:06 | PN ---
Progress Note, Physician History of Present Illness: pulmonary alert,feeling better,on hd,-resp distress - Current Medication List Current Medications: Active Medications Acetaminophen (Tylenol -) 650 mg PO Q6H PRN PRN Reason: BACK PAIN Last Admin: 01/02/18 06:16 Dose: 650 mg Albuterol/Ipratropium (Duoneb -) 1 amp NEB Q6H PRN PRN Reason: SHORTNESS OF BREATH Last Admin: 01/03/18 21:15 Dose: 1 amp Amino Acids (Prosource No Carb Liquid Pkt) 30 ml PO BID@0800,1730 [facility] Last Admin: 01/03/18 17:53 Dose: 30 ml Apixaban (Eliquis -) 2.5 mg PO BID [facility] Last Admin: 01/03/18 23:28 Dose: 2.5 mg Aspirin (Asa -) 81 mg PO DAILY [facility] Last Admin: 01/03/18 10:28 Dose: 81 mg Atorvastatin Calcium (Lipitor -) 80 mg PO [facility] Last Admin: 01/03/18 23:27 Dose: 80 mg Bisacodyl (Dulcolax -) 10 mg PO DAILY PRN PRN Reason: CONSTIPATION Last Admin: 12/31/17 10:18 Dose: 10 mg Bisacodyl (Dulcolax Suppository -) 10 mg [place] DAILY PRN PRN Reason: CONSTIPATION Docusate Sodium (Colace -) 100 mg PO Q8H PRN PRN Reason: CONSTIPATION Last Admin: 01/02/18 23:13 Dose: 100 mg Escitalopram Oxalate (Lexapro -) 10 mg PO [facility] Last Admin: 01/03/18 23:28 Dose: 10 mg Gabapentin (Neurontin -) 100 mg PO [facility] Last Admin: 01/03/18 23:28 Dose: 100 mg Guaifenesin (Robitussin Dm -) 10 ml PO Q6H PRN PRN Reason: COUGH Last Admin: 01/03/18 06:01 Dose: 10 ml Cefepime HCl (Maxipime 1 Gm Premix Ivpb) 1 gm in 50 mls @ 100 mls/hr IVPB DAILY [facility] Last Admin: 01/03/18 10:27 Dose: 100 mls/hr Sodium Chloride (Normal Saline -) 250 mls @ 3,000 mls/hr IV PRN PRN PRN Reason: Hypotension during Dialysis Insulin Aspart (Novolog Vial Sliding Scale -) 1 vial SQ ACHS [facility] PRN Reason: Protocol Last Admin: 01/04/18 06:29 Dose: 6 units Levothyroxine Sodium 112 mcg/ (Levothyroxine Sodium 25 mcg) 137 mcg PO DAILY@ 0700 [facility] Last Admin: 01/04/18 06:28 Dose: 137 mcg Lidocaine (Lidoderm Patch -) 1 patch TP DAILY [facility] Last Admin: 01/03/18 11:03 Dose: 1 patch Lidocaine/Aluminum/Magnesium/Simeth (Magic Mouthwash *Sjr Formula* -) 5 ml MM Q6HPO [facility] Last Admin: 01/04/18 06:29 Dose: 5 ml Methylprednisolone Sodium Succinate (Solu-Medrol -) 40 mg IVPUSH BID [facility] Metoprolol Tartrate (Lopressor -) 12.5 mg PO DAILY [facility] Last Admin: 01/03/18 10:27 Dose: 12.5 mg Miscellaneous (Lidoderm Patch Removal) 1 each MC DAILY@2200 [facility] Last Admin: 01/03/18 23:29 Dose: 1 each Nystatin (Mycostatin Cream -) 1 applic TP DAILY [facility] Last Admin: 01/03/18 13:06 Dose: 1 applic Nystatin (Nystatin Oral Suspension -) 500,000 units PO Q6HPO [facility] Last Admin: 01/04/18 06:29 Dose: 500,000 units Pantoprazole Sodium (Protonix -) 40 mg PO DAILY [facility] Last Admin: 01/03/18 10:28 Dose: 40 mg Polyethylene Glycol (Miralax (For Daily Use) -) 17 gm PO DAILY [facility] Last Admin: 01/03/18 17:54 Dose: 17 gm Senna (Senna -) 1 tab PO DAILY [facility] Last Admin: 01/03/18 13:24 Dose: 1 tab Sevelamer Carbonate (Renvela -) 1,600 mg PO TIDCM [facility] Last Admin: 01/03/18 17:53 Dose: 1,600 mg Silver Sulfadiazine (Silvadene -) 1 applic TP DAILY [facility] Last Admin: 01/03/18 10:27 Dose: 1 applic Simethicone (Mylicon -) 80 mg PO Q6H PRN PRN Reason: INDIGESTION Last Admin: 01/02/18 23:12 Dose: 80 mg Sodium Thiosulfate (Sodium Thiosulfate) 25 gm IVPB MoWeFr@0800 [facility] Last Admin: 01/02/18 09:37 Dose: 25 gm - Objective Vital Signs: Vital Signs Temperature 97.5 F L 01/04/18 06:00 Pulse Rate 99 H 01/04/18 12:59 Respiratory Rate 18 01/04/18 12:59 Blood Pressure 115/60 01/04/18 12:59 O2 Sat by Pulse Oximetry (%) 98 01/04/18 08:49 Constitutional: Yes: Well Nourished, Calm Eyes: Yes: WNL HENT: Yes: WNL Neck: Yes: WNL Cardiovascular: Yes: Pulse Irregular, S1, S2 Respiratory: Yes: Rhonchi (rhonchi) Gastrointestinal: Yes: Normal Bowel Sounds, Soft Extremities: Yes: Amputation (r aka) Edema: Yes Labs: CBC, BMP 01/04/18 10:30 01/04/18 10:30 INR, PTT INR 2.23 (0.82-1.09) H 12/22/17 12:57 Problem List - Problems (1) Dyspnea Code(s): R06.00 - DYSPNEA, UNSPECIFIED (2) ESRD on hemodialysis Code(s): N18.6 - END STAGE RENAL DISEASE; Z99.2 - DEPENDENCE ON RENAL DIALYSIS (3) Leg wound, left Code(s): S81.802A - UNSPECIFIED OPEN WOUND, LEFT LOWER LEG, INITIAL ENCOUNTER (4) Unilateral AKA Code(s): Z89.619 - ACQUIRED ABSENCE OF UNSPECIFIED LEG ABOVE KNEE (5) Anemia in ESRD (end-stage renal disease) Code(s): N18.6 - END STAGE RENAL DISEASE; D63.1 - ANEMIA IN CHRONIC KIDNEY DISEASE (6) Atrial fibrillation Code(s): I48.91 - UNSPECIFIED ATRIAL FIBRILLATION Qualifiers: (7) CAD (coronary artery disease) Code(s): I25.10 - ATHSCL HEART DISEASE OF [place] CORONARY ARTERY W/O ANG PCTRS Qualifiers: Coronary Disease-Associated Artery/Lesion type: [place] artery [place] vs. transplanted heart: [place] heart Associated angina: without angina Qualified Code(s): I25.10 - Atherosclerotic heart disease of [place] coronary artery without angina pectoris (8) Diabetes Code(s): E11.9 - TYPE 2 DIABETES MELLITUS WITHOUT COMPLICATIONS Qualifiers: (9) ESRD (end stage renal disease) on dialysis Code(s): N18.6 - END STAGE RENAL DISEASE; Z99.2 - DEPENDENCE ON RENAL DIALYSIS (10) Peripheral vascular disease due to secondary diabetes Code(s): E13.51 - OTH DIABETES W DIABETIC PERIPHERAL ANGIOPATHY W/O GANGRENE (11) S/P transmetatarsal amputation of foot Code(s): Z89.439 - ACQUIRED ABSENCE OF UNSPECIFIED FOOT Qualifiers: Laterality: left Qualified Code(s): Z89.432 - Acquired absence of left foot Assessment/Plan A/P Atrial Fibrillation with RVR r/o Sepsis pneumonia DYSPNEA improved ESRD on HD PAD CAD HTN DM Hyperlipidemia - inhaled bronchodilators - HD per renal - rate control - continue anticoagulation - wound care - abx as per id - continue medrol - f/u chest x-ray am DR JOHNSON
[2018-01-04] MEDS: ASPIRIN 81 MG CHEWABLE TABLETS PO SCH (14:53)
[2018-01-04] MEDS: SEVELAMER CARBONATE 800 MG TAB (FP) PO SCH ×2 (14:53→18:18)
[2018-01-04] MEDS: AMINO ACIDS/PROTEIN HYDROLYS 30 ML LIQUID.PKT PO SCH ×2 (14:53→18:08)
[2018-01-04] MEDS: APIXABAN 2.5 MG TABLET PO SCH ×2 (14:54→21:48)
[2018-01-04] MEDS: PANTOPRAZOLE 40 MG TABLET (FP) PO SCH (14:54)
[2018-01-04] MEDS: SENNOSIDES 8.6MG TABLET (FP) PO SCH (14:54)
[2018-01-04] MEDS: SILVER SULFADIAZINE 1% TOP CREAM 50 GM JAR TP SCH (14:54)
[2018-01-04] MEDS: NYSTATIN 100,000 UNIT/GM TOPICAL CREAM 15 GM TUBE TP SCH (14:54)
[2018-01-04] MEDS: LIDOCAINE 5% TOPICAL PATCH TP SCH (14:57)
[2018-01-04] MEDS: METOPROLOL TARTRATE 25 MG TABLET (FP) PO SCH (14:57)
[2018-01-04] MEDS: CEFEPIME HCL/D5W 1 GM/50 ML BAG IVPB SCH (14:57)
[2018-01-04] MEDS: POLYETHYLENE GLYCOL 3350 119 GM BTL PO SCH (14:58)
--- NOTE | 2018-01-04 15:40 | PN ---
Progress Note (short form) - Note Progress Note: 72 year old female admitted with severe pain, swelling and tenderness to touch involving the left thigh. 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 Known case of CAD, s/p AK, s/p PCI/ Stenting, ESRD-HD, h/o atrial fib, advanced AV block, s/p PPM, s/p rt. AKA, partial amputation of the left foot. More alert, appetite appears to be improving, still coughing and having trouble to expectorate. No chest pain or discomfort. Active Medications Generic Name Dose Route Start Last Admin Trade Name Freq PRN Reason Stop Dose Admin Acetaminophen 650 mg 12/30/17 12:09 01/02/18 06:16 Tylenol - PO 650 mg Q6H PRN Administration BACK PAIN Albuterol/Ipratropium 1 amp 12/30/17 18:36 01/03/18 21:15 Duoneb - NEB 1 amp Q6H PRN Administration SHORTNESS OF BREATH Amino Acids 30 ml 12/22/17 08:00 01/04/18 14:53 Prosource No Carb Liquid Pkt PO Not Given BID@0800,1730 [facility] Apixaban 2.5 mg 12/24/17 11:15 01/04/18 14:54 Eliquis - PO 2.5 mg BID [facility] Administration Aspirin 81 mg 12/22/17 10:00 01/04/18 14:53 Asa - PO 81 mg DAILY [facility] Administration Atorvastatin Calcium 80 mg 12/25/17 22:00 01/03/18 23:27 Lipitor - PO 80 mg HS [facility] Administration Bisacodyl 10 mg 12/24/17 11:15 12/31/17 10:18 Dulcolax - PO 10 mg DAILY PRN Administration CONSTIPATION Bisacodyl 10 mg 12/31/17 13:34 Dulcolax Suppository - MT DAILY PRN CONSTIPATION Docusate Sodium 100 mg 12/31/17 13:34 01/02/18 23:13 Colace - PO 100 mg Q8H PRN Administration CONSTIPATION Escitalopram Oxalate 10 mg 01/02/18 22:00 01/03/18 23:28 Lexapro - PO 10 mg HS [facility] Administration Gabapentin 100 mg 12/30/17 22:00 01/03/18 23:28 Neurontin - PO 100 mg HS [facility] Administration Guaifenesin 10 ml 12/23/17 17:34 01/03/18 06:01 Robitussin Dm - PO 10 ml Q6H PRN Administration COUGH Cefepime HCl 1 gm in 50 mls @ 100 mls/hr 12/28/17 18:45 01/04/18 14:57 Maxipime 1 Gm Premix Ivpb IVPB 100 mls/hr DAILY [facility] Administration Sodium Chloride 250 mls @ 3,000 mls/hr 12/30/17 07:04 Normal Saline - IV PRN PRN Hypotension during Dialysis Insulin Aspart 1 vial 12/22/17 07:00 01/04/18 14:55 Novolog Vial Sliding Scale - SQ Not Given ACHS [facility] Protocol Levothyroxine Sodium 112 mcg/ 137 mcg 12/25/17 07:00 01/04/18 06:28 Levothyroxine Sodium 25 mcg PO 137 mcg DAILY@0700 [facility] Administration Lidocaine 1 patch 12/24/17 12:30 01/04/18 14:57 Lidoderm Patch - TP 1 patch DAILY [facility] Administration Lidocaine/Aluminum/Magnesium/Simeth 5 ml 01/02/18 12:00 01/04/18 14:56 Magic Mouthwash *Sjr Formula* - MM Not Given Q6HPO [facility] Methylprednisolone Sodium Succinate 40 mg 01/04/18 11:45 01/04/18 14:55 Solu-Medrol - IVPUSH 40 mg BID [facility] Administration Metoprolol Tartrate 12.5 mg 12/22/17 10:00 01/04/18 14:57 Lopressor - PO 12.5 mg DAILY [facility] Administration Miscellaneous 1 each 12/24/17 22:00 01/03/18 23:29 Lidoderm Patch Removal MC 1 each DAILY@2200 [facility] Administration Nystatin 1 applic 12/22/17 10:00 01/04/18 14:54 Mycostatin Cream - TP 1 applic DAILY [facility] Administration Nystatin 500,000 units 01/02/18 18:00 01/04/18 14:56 Nystatin Oral Suspension - PO Not Given Q6HPO [facility] Pantoprazole Sodium 40 mg 12/22/17 10:00 01/04/18 14:54 Protonix - PO 40 mg DAILY [facility] Administration Polyethylene Glycol 17 gm 12/30/17 15:00 01/04/18 14:58 Miralax (For Daily Use) - PO 17 gm DAILY [facility] Administration Senna 1 tab 12/22/17 10:00 01/04/18 14:54 Senna - PO 1 tab DAILY [facility] Administration Sevelamer Carbonate 1,600 mg 12/22/17 17:30 01/04/18 14:53 Renvela - PO Not Given TIDCM [facility] Silver Sulfadiazine 1 applic 12/22/17 10:00 01/04/18 14:54 Silvadene - TP 1 applic DAILY [facility] Administration Simethicone 80 mg 12/31/17 20:46 01/02/18 23:12 Mylicon - PO 80 mg Q6H PRN Administration INDIGESTION Sodium Thiosulfate 25 gm 12/23/17 08:00 01/04/18 12:59 Sodium Thiosulfate IVPB 25 gm MoWeFr@0800 [facility] Administration 72 year old female in respiratory distress, pallor +, no cyanosis, no clubbing or jaundice. Last Vital Signs Temp Pulse Resp BP Pulse Ox 97.5 F L 102 H 18 120/72 98 01/04/18 06:00 01/04/18 14:10 01/04/18 14:10 01/04/18 14:10 01/04/18 08:49 NECK: Supple, no JVD, +ve HJR carotids 1-2+, no bruit appreciated. HEART: PMI in the 5th ICS, gradeI/ LINDA 2nd Rt. ICS, no gallops. LUNGS: Coarse breath sounds, and crepitations bilaterally. ABDOMEN: Soft, nontender, no organomegaly. Firm lesions involving the left abdominal wall. No masses felt. EXT: AKA, partial amputation of the Lt. foot. No left calf pain elicited. CBC, BMP 01/04/18 10:30 01/04/18 10:30 IMPRESSION: 1.CAD,s/p multivessel PCI/Stenting. 2.Recurring vasculitis, needs exclusion.. 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 b).Rheumatogical disease. c).Other Vasculitides. d).Medications. 3.CAD, s/p PCI/Stenting. 4.IDDM with multi system involvement. 5.ESRD-HD. 6.LV systolic dysfunction. 7.Anemia, probably of chronic disease. 8.S/p PPM for Advanced AV block. 9.Multiple amputations. 10.Dyslipidemia. 11.Reddness,tendernes and swelling of the Lt. lateral calf,cellulitis needs exclusion, 12. S/p CHF. RECOMMENDATIONS: 1.Increase ambulation. 2.Chest PT.
[2018-01-04] MEDS: ACETAMINOPHEN WITH CODEINE 300MG/30MG TABLET PO PRN (18:08)
--- NOTE | 2018-01-04 18:37 | PN ---
Progress Note (short form) - Note Progress Note: less left leg pain feels better today no sob, no congestion Vital Signs Period Temp Pulse Resp BP Sys/Cordero Pulse Ox Last 24 Hr 97 F-98.6 F 88-102 17-20 103-149/42-99 98-98 cor-rrr lungs decreased bs at bases abd soft,nt ext no pain on palpation today CBC, BMP 01/04/18 10:30 01/04/18 10:30 a/p HCAP-day #8 antibiotics, doing well, will d/c antiibotics incentive spirometry, nebs esrd/hd severe PAD overall doing poorly d/w patient would consider hospice evaluation- our interventions appear limited- palliative care eval has been requested please call back if needed Problem List - Problems (1) Leucocytosis Code(s): D72.829 - ELEVATED WHITE BLOOD CELL COUNT, UNSPECIFIED (2) Leg pain, left Code(s): M79.605 - PAIN IN LEFT LEG (3) History of ESBL Klebsiella pneumoniae infection Code(s): Z86.19 - PERSONAL HISTORY OF OTHER INFECTIOUS AND PARASITIC DISEASES (4) ESRD on hemodialysis Code(s): N18.6 - END STAGE RENAL DISEASE; Z99.2 - DEPENDENCE ON RENAL DIALYSIS
--- NOTE | 2018-01-04 19:43 | PN ---
Progress Note (short form) - Note Progress Note: Renal follow up for ESRD on HD Pt seen and examined during dialysis BP stable, Goal UF is 3L, BFR at 350 via catheter pt without any acute complaints sob is improved, cough persists, no CP Leg pain is improved Vital Signs Temperature 98.0 F 01/04/18 18:00 Pulse Rate 83 01/04/18 18:00 Respiratory Rate 22 01/04/18 18:00 Blood Pressure 97/63 01/04/18 18:00 O2 Sat by Pulse Oximetry (%) 98 01/04/18 08:49 Intake & Output 01/01/18 01/02/18 01/03/18 01/04/18 23:59 23:59 23:59 23:59 Intake Total 270 280 350 140 Balance 270 280 350 140 NAD RRR Dec BS soft NT/ND No LE edema CBC, BMP 01/04/18 10:30 01/04/18 10:30 Current Medications Acetaminophen (Tylenol -) 650 mg PO Q6H PRN PRN Reason: BACK PAIN Last Admin: 01/02/18 06:16 Dose: 650 mg Acetaminophen/Codeine Phosphate (Tylenol # 3 -) 1 tab PO Q6H PRN PRN Reason: PAIN LEVEL 6-10 Last Admin: 01/04/18 18:08 Dose: 1 tab Amino Acids (Prosource No Carb Liquid Pkt) 30 ml PO BID@0800,1730 [facility] Last Admin: 01/04/18 18:08 Dose: 30 ml Apixaban (Eliquis -) 2.5 mg PO BID [facility] Last Admin: 01/04/18 14:54 Dose: 2.5 mg Aspirin (Asa -) 81 mg PO DAILY [facility] Last Admin: 01/04/18 14:53 Dose: 81 mg Atorvastatin Calcium (Lipitor -) 80 mg PO HS [facility] Last Admin: 01/03/18 23:27 Dose: 80 mg Bisacodyl (Dulcolax -) 10 mg PO DAILY PRN PRN Reason: CONSTIPATION Last Admin: 12/31/17 10:18 Dose: 10 mg Bisacodyl (Dulcolax Suppository -) 10 mg [place] DAILY PRN PRN Reason: CONSTIPATION Docusate Sodium (Colace -) 100 mg PO Q8H PRN PRN Reason: CONSTIPATION Last Admin: 01/02/18 23:13 Dose: 100 mg Escitalopram Oxalate (Lexapro -) 10 mg PO HS [facility] Last Admin: 01/03/18 23:28 Dose: 10 mg Gabapentin (Neurontin -) 100 mg PO HS [facility] Last Admin: 01/03/18 23:28 Dose: 100 mg Guaifenesin (Robitussin Dm -) 10 ml PO Q6H PRN PRN Reason: COUGH Last Admin: 01/03/18 06:01 Dose: 10 ml Sodium Chloride (Normal Saline -) 250 mls @ 3,000 mls/hr IV PRN PRN PRN Reason: Hypotension during Dialysis Insulin Aspart (Novolog Vial Sliding Scale -) 1 vial SQ ACHS YOAN PRN Reason: Protocol Last Admin: 01/04/18 18:08 Dose: 8 units Levothyroxine Sodium 112 mcg/ (Levothyroxine Sodium 25 mcg) 137 mcg PO DAILY@ 0700 [facility] Last Admin: 01/04/18 06:28 Dose: 137 mcg Lidocaine (Lidoderm Patch -) 1 patch TP DAILY [facility] Last Admin: 01/04/18 14:57 Dose: 1 patch Lidocaine/Aluminum/Magnesium/Simeth (Magic Mouthwash *Sjr Formula* -) 5 ml MM Q6HPO [facility] Last Admin: 01/04/18 18:06 Dose: 5 ml Methylprednisolone Sodium Succinate (Solu-Medrol -) 40 mg IVPUSH BID [facility] Last Admin: 01/04/18 14:55 Dose: 40 mg Metoprolol Tartrate (Lopressor -) 12.5 mg PO DAILY [facility] Last Admin: 01/04/18 14:57 Dose: 12.5 mg Miscellaneous (Lidoderm Patch Removal) 1 each MC DAILY@2200 [facility] Last Admin: 01/03/18 23:29 Dose: 1 each Nystatin (Mycostatin Cream -) 1 applic TP DAILY [facility] Last Admin: 01/04/18 14:54 Dose: 1 applic Nystatin (Nystatin Oral Suspension -) 500,000 units PO Q6HPO [facility] Last Admin: 01/04/18 18:08 Dose: 500,000 units Pantoprazole Sodium (Protonix -) 40 mg PO DAILY [facility] Last Admin: 01/04/18 14:54 Dose: 40 mg Polyethylene Glycol (Miralax (For Daily Use) -) 17 gm PO DAILY [facility] Last Admin: 01/04/18 14:58 Dose: 17 gm Senna (Senna -) 1 tab PO DAILY [facility] Last Admin: 01/04/18 14:54 Dose: 1 tab Sevelamer Carbonate (Renvela -) 1,600 mg PO TIDCM [facility] Last Admin: 01/04/18 18:18 Dose: 1,600 mg Silver Sulfadiazine (Silvadene -) 1 applic TP DAILY [facility] Last Admin: 01/04/18 14:54 Dose: 1 applic Simethicone (Mylicon -) 80 mg PO Q6H PRN PRN Reason: INDIGESTION Last Admin: 01/02/18 23:12 Dose: 80 mg Sodium Thiosulfate (Sodium Thiosulfate) 25 gm IVPB MoWeFr@0800 [facility] Last Admin: 01/04/18 12:59 Dose: 25 gm 72 year old woman with PMhx of ESRD on HD, Hypertension, CAD, PVD s/p amputations, Afib on Eliquis, Calciphylaxis who presented with LE wound and admitted for Sepsis. 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 consolidation #Calciphaylaxis #CKD Related Anemia #Hypothyroidism tolerated HD well today with 3L UF completed course of Abx for suspected PNA Continue phos binder with meals Ca x phos product is at goal Will continue [place] with HD as tolerated will continue aggressive UF with HD Wan Cruz DO
[2018-01-04] MEDS: ATORVASTATIN CA 80 MG TABLET (FP) PO SCH (21:48)
[2018-01-04] MEDS: ESCITALOPRAM OXALATE 10 MG TABLET (FP) PO SCH (21:48)
[2018-01-04] MEDS: GABAPENTIN 100 MG CAPSULE (FP) PO SCH (21:48)
[2018-01-04] MEDS: LIDOCAINE PATCH REMOVAL MC SCH (21:57)
[2018-01-04] MEDS: SIMETHICONE 80 MG TAB.CHEW (FP) PO PRN (23:32)
[2018-01-05] MEDS: NYSTATIN 500,000 UNITS/5 ML SUSPENSION PO SCH ×4 (00:13→17:28)
[2018-01-05] MEDS: MAG HYDROX/ALH/SMC/DPHA/LIDO 240 ML MOUTHWASH MM SCH ×4 (00:13→17:29)
[2018-01-05] MEDS: ACETAMINOPHEN WITH CODEINE 300MG/30MG TABLET PO PRN (00:14)
[2018-01-05] MEDS ORDERED: LEVOTHYROXINE NA 112 MCG TABLET (FP) ONE (05:20)
[2018-01-05] MEDS ORDERED: LEVOTHYROXINE NA 25 MCG TABLET (FP) ONE (05:20)
[2018-01-05] MEDS: LEVOTHYROXINE 112 MCG, LEVOTHYROXINE 25 MCG PO SCH (05:59)
[2018-01-05] MEDS: INSULIN SLIDING SCALE (NOVOLOG) 1 VIAL SQ SCH ×3 (06:00→17:29)
[2018-01-05] MEDS: SEVELAMER CARBONATE 800 MG TAB (FP) PO SCH ×3 (08:26→17:29)
[2018-01-05] MEDS: AMINO ACIDS/PROTEIN HYDROLYS 30 ML LIQUID.PKT PO SCH ×2 (08:26→17:28)
[2018-01-05] MEDS ORDERED: PT OWN MED DRAWER 7, Y5N ONE (09:56)
[2018-01-05] MEDS: METOPROLOL TARTRATE 25 MG TABLET (FP) PO SCH (10:07)
[2018-01-05] MEDS: PANTOPRAZOLE 40 MG TABLET (FP) PO SCH (10:07)
[2018-01-05] MEDS: ASPIRIN 81 MG CHEWABLE TABLETS PO SCH (10:07)
[2018-01-05] MEDS: LIDOCAINE 5% TOPICAL PATCH TP SCH (10:07)
[2018-01-05] MEDS: SENNOSIDES 8.6MG TABLET (FP) PO SCH (10:07)
[2018-01-05] MEDS: APIXABAN 2.5 MG TABLET PO SCH (10:08)
[2018-01-05] MEDS: SILVER SULFADIAZINE 1% TOP CREAM 50 GM JAR TP SCH (10:08)
[2018-01-05] MEDS: methylPREDNISolone NA SUCC 40 MG/1 ML VIAL IVPUSH SCH (10:08)
[2018-01-05] MEDS: POLYETHYLENE GLYCOL 3350 119 GM BTL PO SCH (10:08)
[2018-01-05] MEDS: NYSTATIN 100,000 UNIT/GM TOPICAL CREAM 15 GM TUBE TP SCH (10:08)
--- NOTE | 2018-01-05 10:13 | PN ---
Progress Note (short form) - Note Progress Note: 72 year old female admitted with severe pain, swelling and tenderness to touch involving the left thigh. 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 Known case of CAD, s/p [place], s/p PCI/ Stenting, ESRD-HD, h/o atrial fib, advanced AV block, s/p PPM, s/p rt. AKA, partial amputation of the left foot. No pain or discomfort, minimal cough, no SOB, improving appetite, planned transfer to SNF Active Medications Generic Name Dose Route Start Last Admin Trade Name Freq PRN Reason Stop Dose Admin Acetaminophen 650 mg 12/30/17 12:09 01/02/18 06:16 Tylenol - PO 650 mg Q6H PRN Administration BACK PAIN Acetaminophen/Codeine Phosphate 1 tab 01/04/18 17:44 01/05/18 00:14 Tylenol # 3 - PO 1 tab Q6H PRN Administration PAIN LEVEL 6-10 Amino Acids 30 ml 12/22/17 08:00 01/05/18 08:26 Prosource No Carb Liquid Pkt PO 30 ml BID@0800,1730 YOAN Administration Apixaban 2.5 mg 12/24/17 11:15 01/05/18 10:08 Eliquis - PO 2.5 mg BID YOAN Administration Aspirin 81 mg 12/22/17 10:00 01/05/18 10:07 Asa - PO 81 mg DAILY YOAN Administration Atorvastatin Calcium 80 mg 12/25/17 22:00 01/04/18 21:48 Lipitor - PO 80 mg HS YOAN Administration Bisacodyl 10 mg 12/24/17 11:15 12/31/17 10:18 Dulcolax - PO 10 mg DAILY PRN Administration CONSTIPATION Bisacodyl 10 mg 12/31/17 13:34 Dulcolax Suppository - [place] DAILY PRN CONSTIPATION Docusate Sodium 100 mg 12/31/17 13:34 01/02/18 23:13 Colace - PO 100 mg Q8H PRN Administration CONSTIPATION Escitalopram Oxalate 10 mg 01/02/18 22:00 01/04/18 21:48 Lexapro - PO 10 mg HS YOAN Administration Gabapentin 100 mg 12/30/17 22:00 01/04/18 21:48 Neurontin - PO 100 mg HS YOAN Administration Guaifenesin 10 ml 12/23/17 17:34 01/03/18 06:01 Robitussin Dm - PO 10 ml Q6H PRN Administration COUGH Sodium Chloride 250 mls @ 3,000 mls/hr 12/30/17 07:04 Normal Saline - IV PRN PRN Hypotension during Dialysis Insulin Aspart 1 vial 12/22/17 07:00 01/05/18 06:00 Novolog Vial Sliding Scale - SQ 8 units ACHS YOAN Administration Protocol Levothyroxine Sodium 112 mcg/ 137 mcg 12/25/17 07:00 01/05/18 05:59 Levothyroxine Sodium 25 mcg PO 137 mcg DAILY@0700 YOAN Administration Lidocaine 1 patch 12/24/17 12:30 01/05/18 10:07 Lidoderm Patch - TP 1 patch DAILY YOAN Administration Lidocaine/Aluminum/Magnesium/Simeth 5 ml 01/02/18 12:00 01/05/18 05:55 Magic Mouthwash *Sjr Formula* - MM 5 ml Q6HPO YOAN Administration Methylprednisolone Sodium Succinate 40 mg 01/04/18 11:45 01/05/18 10:08 Solu-Medrol - IVPUSH 40 mg BID YOAN Administration Metoprolol Tartrate 12.5 mg 12/22/17 10:00 01/05/18 10:07 Lopressor - PO 12.5 mg DAILY YOAN Administration Miscellaneous 1 each 12/24/17 22:00 01/04/18 21:57 Lidoderm Patch Removal MC 1 each DAILY@2200 YOAN Administration Nystatin 1 applic 12/22/17 10:00 01/05/18 10:08 Mycostatin Cream - TP 1 applic DAILY YOAN Administration Nystatin 500,000 units 01/02/18 18:00 01/05/18 05:55 Nystatin Oral Suspension - PO 500,000 units Q6HPO YOAN Administration Pantoprazole Sodium 40 mg 12/22/17 10:00 01/05/18 10:07 Protonix - PO 40 mg DAILY YOAN Administration Polyethylene Glycol 17 gm 12/30/17 15:00 01/05/18 10:08 Miralax (For Daily Use) - PO 17 gm DAILY YOAN Administration Senna 1 tab 12/22/17 10:00 01/05/18 10:07 Senna - PO 1 tab DAILY YOAN Administration Sevelamer Carbonate 1,600 mg 12/22/17 17:30 01/05/18 08:26 Renvela - PO 1,600 mg TIDCM YOAN Administration Silver Sulfadiazine 1 applic 12/22/17 10:00 01/05/18 10:08 Silvadene - TP 1 applic DAILY YOAN Administration Simethicone 80 mg 12/31/17 20:46 01/04/18 23:32 Mylicon - PO 80 mg Q6H PRN Administration INDIGESTION Sodium Thiosulfate 25 gm 12/23/17 08:00 01/04/18 12:59 Sodium Thiosulfate IVPB 25 gm MoWeFr@0800 YOAN Administration 72 year old female in respiratory distress, pallor +, no cyanosis, no clubbing or jaundice. Last Vital Signs Temp Pulse Resp BP Pulse Ox 97.9 F 101 H 17 141/78 95 01/05/18 06:00 01/05/18 06:00 01/05/18 06:00 01/05/18 06:00 01/04/18 20:25 NECK: Supple, no JVD, +ve HJR carotids 1-2+, no bruit appreciated. HEART: PMI in the 5th ICS, gradeI/ LINDA 2nd Rt. ICS, no gallops. LUNGS: Coarse breath sounds, and crepitations bilaterally. ABDOMEN: Soft, nontender, no organomegaly. Firm lesions involving the left abdominal wall. No masses felt. EXT: AKA, partial amputation of the Lt. foot. Significant reduction of swelling of the LLE and no pain elicited on touch. Healing escar invoving left ca CBC, BMP 01/04/18 10:30 01/04/18 10:30 IMPRESSION: 1.Persistent cough and difficulty to expectorate due to retained secretions and atelectasis. 2.Atrial fib. with rapid ventricular response. 3.Recurring vasculitis, needs exclusion.. 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 b).Rheumatogical disease. c).Other Vasculitides. 4.CAD, s/p PCI/Stenting. 5.IDDM with multi system involvement. 6.ESRD-HD. 7.LV systolic dysfunction. 8.Anemia, probably of chronic disease. 9.S/p PPM for Advanced AV block. 10.Multiple amputations. 11.Dyslipidemia. 12.Reddness,tendernes and swelling of the Lt. lateral calf,cellulitis needs exclusion, 13.See extensive CTA report. 14. S/p CHF. RECOMMENDATIONS: 1.Increase ambulation. 2.Chest PT. 3.F/u Xray chest. 4. Vascular f/u.
[2018-01-05] MEDS ORDERED: INSULIN (NOVOLOG) ASPART 100 UNITS/ML 10ML VIAL ONE (11:39)
--- NOTE | 2018-01-05 11:52 | DS ---
Physical Examination Vital Signs: Vital Signs Temperature 97.9 F 01/05/18 06:00 Pulse Rate 101 H 01/05/18 06:00 Respiratory Rate 17 01/05/18 06:00 Blood Pressure 141/78 01/05/18 06:00 O2 Sat by Pulse Oximetry (%) 95 01/04/18 20:25 Constitutional: Yes: No Distress Cardiovascular: Yes: Pulse Irregular Respiratory: Yes: Diminished, Rhonchi (scattered) Gastrointestinal: Yes: Normal Bowel Sounds, Soft. 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 Galarza HISTORY OF PRESENT ILLNESS: 72 y/o F from [facility] with PMH HTN, DM, HLD, PAD, afib (on Eliquis 2.5mg PO BID), pacemaker/defibrillator, ESRD (M, W, F dialysis; L chest tunnel cath. Anuric), R ATK amputation, L foot amputation, L hand 2nd-4th digit amputation (), who presents to the ED c/o LLE pain over the past two days. As per pt, the pain in her LLE started suddenly and has been 10/10, excruciating pain with increased severity in her L thigh. Pt noticed erythematous "blotching" on her L lateral thigh during this time, as well as increased edema and tenderness to palpation. Her pain is so severe that it has limited her movement, but was mildly alleviated with oxycodone (taken at [facility]) and percocet (taken in [facility] ED). Pt also notes rupture of a serous blister on her L medial thigh that occurred 1.5 weeks ago, and new infections developing on her L fifth digit, R 2nd digit, and a new eschar on the base of her L tib/fib. She had her last dialysis appt today (12/21) and received daptomycin and tigecycline. She has completed a 6-8 week course of these abx through a R PICC line for osteomyelitis of her L hand 2nd-4th digits. Pt also endorses constipation. Denies NELSON, fever, chills, SOB, chest pain or pressure. ER course was notable for: (1) Tachycardia 110HR (2) Leukocytosis 20 (3) H&H 9.3/28.3 (4) Cr 2.6 - improved after dialysis (5) arterial duplex- posterior tibial a. occlusion (6) Cefepime 1g, genta 100mg x 1 as per ID Hospital Course Pt was admitted and started on iv antibiotics for pneumonia and presumed cellulitis of left leg - seen by ID, Renal , Cardiology, Vascular and General surgeon Lower extremity CT scan -- no abscess Did not appear to be cellulitis per ID Per General Surgeon, no further interventions for hand, CTA done-- shows extensive stenosis no vascular interventions per Vascular surgeon Leg pain likely due to Neuropathy as she did well well Gabapentin was started Pain control with Tylenol #3 and Lidoderm patch Lungs better, antibiotics completed iv Steroids completed pt and daughter aware that no further interventions with regarding surgery pt stable to be dc to [facility] Condition: Fair - Instructions Referrals: Gonsalo Almonte MD [Staff Physician] - Disposition: [facility] - Home Medications Comprehensive Discharge Medication List: Ambulatory Orders Acetaminophen [Tylenol .Regular Strength -] 650 mg PO Q4H PRN #30 tablet Amino Acids/Protein Hydrolys [Prosource No Carb Liquid Pkt] 30 ml PO BID@0800, 1730 #20 packet 11/24/17 Apixaban [Eliquis] 2.5 mg PO BID #60 tablet 11/24/17 Metoprolol Tartrate [Lopressor -] 12.5 mg PO DAILY 30 Days tablet 11/24/17 Ondansetron [Zofran -] 4 mg PO Q8H PRN #30 tablet 11/24/17 Sevelamer Carbonate [Renvela -] 1,600 mg PO TIDCM #90 tab 11/24/17 Sodium Thiosulfate 25 gm IVPB MoWeFr@0800 #100 ml 11/24/17 Diphenhydramine HCl [Benadryl Capsule -] 25 mg PO DAILY PRN 03/12/18 Insulin Aspart [Novolog Flexpen] 0 unit SQ TID PRN 12/05/17 Nut.tx.imp.renal Fxn,Lac-Reduc [Nepro Carb Steady] 8 oz PO BID 12/05/17 Aspirin [ASA -] 81 mg PO DAILY #30 tab.chew 12/08/17 Nystatin Oral Suspension - [Nystatin Oral Susp 960252 Units/5 ML -] 500,000 units PO Q6HPO #10 cup 12/08/17 Nystatin Powder [Nystop Powder -] 1 applic TP BID #30 applic 12/08/17 Pantoprazole Sodium [Protonix -] 40 mg PO DAILY #60 tablet.ec 12/08/17 Clotrimazole 15 gm TP DAILY 12/22/17 Collagenase Clostridium Hist. [Santyl -] 1 applic TP DAILY 12/22/17 Glimepiride 2 mg PO BID 12/22/17 Sennosides [Senna Laxative] 8.6 mg PO DAILY 12/22/17 Silver Sulfadiazine 1% Top Cr [Silvadene -] 1 applic TP ONCE 12/22/17 Acetaminophen W/ Codeine #3 [Tylenol # 3 -] 1 tab PO Q6H PRN #30 tablet MDD 4 Albuterol 2.5/Ipratropium 0.5 [Duoneb -] 1 amp NEB Q6H PRN #60 amp 01/05/18 Bisacodyl Suppository [Dulcolax Suppository -] 10 mg NE DAILY PRN #30 supp.rect 01/05/18 Docusate Sodium [Colace -] 100 mg PO Q8H PRN #60 capsule 01/05/18 Escitalopram Oxalate [Lexapro -] 10 mg PO HS #30 tablet 01/05/18 Gabapentin [Neurontin -] 100 mg PO HS #30 capsule 01/05/18 Levothyroxine [Synthroid -] 137 mcg PO DAILY@0700 #90 tablet 01/05/18 Polyethylene Glycol 3350 [Miralax 119 gm Btl -] 17 gm PO DAILY #1 bottle Prednisone See Taper PO DAILY #30 tablet 01/05/18 Simethicone [Mylicon -] 80 mg PO Q6H PRN #60 tab.chew 01/05/18
[2018-01-05] MEDS ORDERED: ALBUTEROL SO4 2.5/IPRATROPIUM 0.5 INH SOL 3 ML VIAL.NEB. NEB PRN (12:10)
--- NOTE | 2018-01-05 14:29 | PN ---
Progress Note (short form) - Note Progress Note: Resting in NAD. Overall feels better. No CP or SOB. Intake & Output 01/02/18 01/03/18 01/04/18 01/05/18 23:59 23:59 23:59 23:59 Intake Total 280 350 290 470 Balance 280 350 290 470 Last Vital Signs Temp Pulse Resp BP Pulse Ox 97.9 F 101 H 17 141/78 95 01/05/18 06:00 01/05/18 06:00 01/05/18 06:00 01/05/18 06:00 01/04/18 20:25 Active Medications Acetaminophen (Tylenol -) 650 mg PO Q6H PRN PRN Reason: BACK PAIN Last Admin: 01/02/18 06:16 Dose: 650 mg Acetaminophen/Codeine Phosphate (Tylenol # 3 -) 1 tab PO Q6H PRN PRN Reason: PAIN LEVEL 6-10 Last Admin: 01/05/18 00:14 Dose: 1 tab Albuterol/Ipratropium (Duoneb -) 1 amp NEB Q6H PRN PRN Reason: SHORTNESS OF BREATH Last Admin: 01/05/18 13:00 Dose: 1 amp Amino Acids (Prosource No Carb Liquid Pkt) 30 ml PO BID@0800,1730 [facility] Last Admin: 01/05/18 08:26 Dose: 30 ml Apixaban (Eliquis -) 2.5 mg PO BID [facility] Last Admin: 01/05/18 10:08 Dose: 2.5 mg Aspirin (Asa -) 81 mg PO DAILY [facility] Last Admin: 01/05/18 10:07 Dose: 81 mg Atorvastatin Calcium (Lipitor -) 80 mg PO [facility] Last Admin: 01/04/18 21:48 Dose: 80 mg Bisacodyl (Dulcolax -) 10 mg PO DAILY PRN PRN Reason: CONSTIPATION Last Admin: 12/31/17 10:18 Dose: 10 mg Bisacodyl (Dulcolax Suppository -) 10 mg [place] DAILY PRN PRN Reason: CONSTIPATION Docusate Sodium (Colace -) 100 mg PO Q8H PRN PRN Reason: CONSTIPATION Last Admin: 01/02/18 23:13 Dose: 100 mg Escitalopram Oxalate (Lexapro -) 10 mg PO [facility] Last Admin: 01/04/18 21:48 Dose: 10 mg Gabapentin (Neurontin -) 100 mg PO HS [facility] Last Admin: 01/04/18 21:48 Dose: 100 mg Guaifenesin (Robitussin Dm -) 10 ml PO Q6H PRN PRN Reason: COUGH Last Admin: 01/03/18 06:01 Dose: 10 ml Sodium Chloride (Normal Saline -) 250 mls @ 3,000 mls/hr IV PRN PRN PRN Reason: Hypotension during Dialysis Insulin Aspart (Novolog Vial Sliding Scale -) 1 vial SQ ACHS YOAN PRN Reason: Protocol Last Admin: 01/05/18 11:48 Dose: 4 units Levothyroxine Sodium 112 mcg/ (Levothyroxine Sodium 25 mcg) 137 mcg PO DAILY@ 0700 [facility] Last Admin: 01/05/18 05:59 Dose: 137 mcg Lidocaine (Lidoderm Patch -) 1 patch TP DAILY [facility] Last Admin: 01/05/18 10:07 Dose: 1 patch Lidocaine/Aluminum/Magnesium/Simeth (Magic Mouthwash *Sjr Formula* -) 5 ml MM Q6HPO [facility] Last Admin: 01/05/18 11:52 Dose: Not Given Methylprednisolone Sodium Succinate (Solu-Medrol -) 40 mg IVPUSH BID [facility] Last Admin: 01/05/18 10:08 Dose: 40 mg Metoprolol Tartrate (Lopressor -) 12.5 mg PO DAILY [facility] Last Admin: 01/05/18 10:07 Dose: 12.5 mg Miscellaneous (Lidoderm Patch Removal) 1 each MC DAILY@2200 [facility] Last Admin: 01/04/18 21:57 Dose: 1 each Nystatin (Mycostatin Cream -) 1 applic TP DAILY [facility] Last Admin: 01/05/18 10:08 Dose: 1 applic Nystatin (Nystatin Oral Suspension -) 500,000 units PO Q6HPO [facility] Last Admin: 01/05/18 11:52 Dose: 500,000 units Pantoprazole Sodium (Protonix -) 40 mg PO DAILY [facility] Last Admin: 01/05/18 10:07 Dose: 40 mg Polyethylene Glycol (Miralax (For Daily Use) -) 17 gm PO DAILY [facility] Last Admin: 01/05/18 10:08 Dose: 17 gm Senna (Senna -) 1 tab PO DAILY [facility] Last Admin: 01/05/18 10:07 Dose: 1 tab Sevelamer Carbonate (Renvela -) 1,600 mg PO TIDCM [facility] Last Admin: 01/05/18 11:52 Dose: 1,600 mg Silver Sulfadiazine (Silvadene -) 1 applic TP DAILY [facility] Last Admin: 01/05/18 10:08 Dose: 1 applic Simethicone (Mylicon -) 80 mg PO Q6H PRN PRN Reason: INDIGESTION Last Admin: 01/04/18 23:32 Dose: 80 mg Sodium Thiosulfate (Sodium Thiosulfate) 25 gm IVPB MoWeFr@0800 [facility] Last Admin: 01/04/18 12:59 Dose: 25 gm Constitutional: Yes: NAD Eyes: Yes: WNL HENT: Yes: WNL Neck: Yes: WNL Cardiovascular: Yes: Pulse Irregular, S1, S2 Respiratory: Yes: Few basilar Rhonchi Gastrointestinal: Yes: Normal Bowel Sounds, Soft Extremities: Yes: Right AKA Edema: Yes Labs: Laboratory Results - last 24 hr 01/04/18 01/05/18 01/05/18 17:31 05:12 11:34 POC Glucometer [phone] Problem List - Problems (1) Dyspnea Code(s): R06.00 - DYSPNEA, UNSPECIFIED (2) ESRD on hemodialysis Code(s): N18.6 - END STAGE RENAL DISEASE; Z99.2 - DEPENDENCE ON RENAL DIALYSIS (3) Leg wound, left Code(s): S81.802A - UNSPECIFIED OPEN WOUND, LEFT LOWER LEG, INITIAL ENCOUNTER (4) Unilateral AKA Code(s): Z89.619 - ACQUIRED ABSENCE OF UNSPECIFIED LEG ABOVE KNEE (5) Anemia in ESRD (end-stage renal disease) Code(s): N18.6 - END STAGE RENAL DISEASE; D63.1 - ANEMIA IN CHRONIC KIDNEY DISEASE (6) Atrial fibrillation Code(s): I48.91 - UNSPECIFIED ATRIAL FIBRILLATION Qualifiers: (7) CAD (coronary artery disease) Code(s): I25.10 - ATHSCL HEART DISEASE OF [place] CORONARY ARTERY W/O ANG PCTRS Qualifiers: Coronary Disease-Associated Artery/Lesion type: [place] artery [place] vs. transplanted heart: [place] heart Associated angina: without angina Qualified Code(s): I25.10 - Atherosclerotic heart disease of [place] coronary artery without angina pectoris (8) Diabetes Code(s): E11.9 - TYPE 2 DIABETES MELLITUS WITHOUT COMPLICATIONS Qualifiers: (9) ESRD (end stage renal disease) on dialysis Code(s): N18.6 - END STAGE RENAL DISEASE; Z99.2 - DEPENDENCE ON RENAL DIALYSIS (10) Peripheral vascular disease due to secondary diabetes Code(s): E13.51 - OTH DIABETES W DIABETIC PERIPHERAL ANGIOPATHY W/O GANGRENE (11) S/P transmetatarsal amputation of foot Code(s): Z89.439 - ACQUIRED ABSENCE OF UNSPECIFIED FOOT Qualifiers: Laterality: left Qualified Code(s): Z89.432 - Acquired absence of left foot Assessment/Plan Atrial Fibrillation with RVR pneumonia DYSPNEA improved ESRD on HD PAD CAD HTN DM Hyperlipidemia BD TX O2 as needed HD per renal AC Monitor off steroids D/C planning Dr Rose
[2018-01-05 14:47] VITALS: BP 122/88; PULSE 100; TEMP 97.6
--- NOTE | 2018-01-05 17:16 | PN ---
Progress Note (short form) - Note Progress Note: Renal follow up for ESRD on HD Pt seen and examined at the bedside awake and alert has dry mouth leg pain is improved no CP, SOB, Abd pain Vital Signs Temperature 97.6 F 01/05/18 14:45 Pulse Rate 100 H 01/05/18 14:45 Respiratory Rate 18 01/05/18 14:45 Blood Pressure 122/88 01/05/18 14:45 O2 Sat by Pulse Oximetry (%) 95 01/05/18 10:00 Intake & Output 01/02/18 01/03/18 01/04/18 01/05/18 23:59 23:59 23:59 23:59 Intake Total 280 350 290 860 Balance 280 350 290 860 NAD RRR Dec BS soft NT/ND No LE edema CBC, BMP 01/04/18 10:30 01/04/18 10:30 Current Medications Acetaminophen (Tylenol -) 650 mg PO Q6H PRN PRN Reason: BACK PAIN Last Admin: 01/02/18 06:16 Dose: 650 mg Acetaminophen/Codeine Phosphate (Tylenol # 3 -) 1 tab PO Q6H PRN PRN Reason: PAIN LEVEL 6-10 Last Admin: 01/05/18 00:14 Dose: 1 tab Albuterol/Ipratropium (Duoneb -) 1 amp NEB Q6H PRN PRN Reason: SHORTNESS OF BREATH Last Admin: 01/05/18 13:00 Dose: 1 amp Amino Acids (Prosource No Carb Liquid Pkt) 30 ml PO BID@0800,1730 [facility] Last Admin: 01/05/18 08:26 Dose: 30 ml Apixaban (Eliquis -) 2.5 mg PO BID [facility] Last Admin: 01/05/18 10:08 Dose: 2.5 mg Aspirin (Asa -) 81 mg PO DAILY [facility] Last Admin: 01/05/18 10:07 Dose: 81 mg Atorvastatin Calcium (Lipitor -) 80 mg PO HS [facility] Last Admin: 01/04/18 21:48 Dose: 80 mg Bisacodyl (Dulcolax -) 10 mg PO DAILY PRN PRN Reason: CONSTIPATION Last Admin: 12/31/17 10:18 Dose: 10 mg Bisacodyl (Dulcolax Suppository -) 10 mg DC DAILY PRN PRN Reason: CONSTIPATION Docusate Sodium (Colace -) 100 mg PO Q8H PRN PRN Reason: CONSTIPATION Last Admin: 01/02/18 23:13 Dose: 100 mg Escitalopram Oxalate (Lexapro -) 10 mg PO HS [facility] Last Admin: 01/04/18 21:48 Dose: 10 mg Gabapentin (Neurontin -) 100 mg PO HS [facility] Last Admin: 01/04/18 21:48 Dose: 100 mg Guaifenesin (Robitussin Dm -) 10 ml PO Q6H PRN PRN Reason: COUGH Last Admin: 01/03/18 06:01 Dose: 10 ml Sodium Chloride (Normal Saline -) 250 mls @ 3,000 mls/hr IV PRN PRN PRN Reason: Hypotension during Dialysis Insulin Aspart (Novolog Vial Sliding Scale -) 1 vial SQ ACHS [facility] PRN Reason: Protocol Last Admin: 01/05/18 11:48 Dose: 4 units Levothyroxine Sodium 112 mcg/ (Levothyroxine Sodium 25 mcg) 137 mcg PO DAILY@ 0700 [facility] Last Admin: 01/05/18 05:59 Dose: 137 mcg Lidocaine (Lidoderm Patch -) 1 patch TP DAILY [facility] Last Admin: 01/05/18 10:07 Dose: 1 patch Lidocaine/Aluminum/Magnesium/Simeth (Magic Mouthwash *Sjr Formula* -) 5 ml MM Q6HPO [facility] Last Admin: 01/05/18 11:52 Dose: Not Given Metoprolol Tartrate (Lopressor -) 12.5 mg PO DAILY [facility] Last Admin: 01/05/18 10:07 Dose: 12.5 mg Miscellaneous (Lidoderm Patch Removal) 1 each MC DAILY@2200 [facility] Last Admin: 01/04/18 21:57 Dose: 1 each Nystatin (Mycostatin Cream -) 1 applic TP DAILY [facility] Last Admin: 01/05/18 10:08 Dose: 1 applic Nystatin (Nystatin Oral Suspension -) 500,000 units PO Q6HPO [facility] Last Admin: 01/05/18 11:52 Dose: 500,000 units Pantoprazole Sodium (Protonix -) 40 mg PO DAILY [facility] Last Admin: 01/05/18 10:07 Dose: 40 mg Polyethylene Glycol (Miralax (For Daily Use) -) 17 gm PO DAILY [facility] Last Admin: 01/05/18 10:08 Dose: 17 gm Senna (Senna -) 1 tab PO DAILY [facility] Last Admin: 01/05/18 10:07 Dose: 1 tab Sevelamer Carbonate (Renvela -) 1,600 mg PO TIDCM [facility] Last Admin: 01/05/18 11:52 Dose: 1,600 mg Silver Sulfadiazine (Silvadene -) 1 applic TP DAILY [facility] Last Admin: 01/05/18 10:08 Dose: 1 applic Simethicone (Mylicon -) 80 mg PO Q6H PRN PRN Reason: INDIGESTION Last Admin: 01/04/18 23:32 Dose: 80 mg Sodium Thiosulfate (Sodium Thiosulfate) 25 gm IVPB MoWeFr@0800 [facility] Last Admin: 01/04/18 12:59 Dose: 25 gm 72 year old woman with PMhx of ESRD on HD, Hypertension, CAD, PVD s/p amputations, Afib on Eliquis, Calciphylaxis who presented with LE wound and admitted for Sepsis. 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 consolidation #Calciphaylaxis #CKD Related Anemia #Hypothyroidism no indication for dialysis today s/p Abx for PNA continue renvela and sodium thiosulfate with HD will continue [place] with outpatient dialysis Wan Cruz DO
[2018-01-06] MEDS ORDERED: methylPREDNISolone NA SUCC 40 MG/1 ML VIAL IVPUSH SCH (10:00)
== END 2018-01-05 18:19 | DRG 871 ==
LOC: JER 22:35 → JERBED 12-22 00:48 → UNDOADMIN 12-22 00:58 → J8W 12-22 14:45 → J4S 12-26 16:52 → UNDODISIN 12-28 13:25
PROVIDERS: ADMIT Internal Medicine; ATTEND Internal Medicine
PROC: 5A1D90Z Performance of Urinary Filtration, Continuous, Greater than 18 hours Per Day (ICD-10-PCS; principal; 2018-01-04)
DX: A41.9 Sepsis, unspecified organism (principal); N18.6 End stage renal disease; J18.9 Pneumonia, unspecified organism; I12.0 Hypertensive chronic kidney disease with stage 5 chronic kidney disease or end stage renal disease; L03.116 Cellulitis of left lower limb; I13.2 Hypertensive heart and chronic kidney disease with heart failure and with stage 5 chronic kidney disease, or end stage renal disease; J98.11 Atelectasis; L02.519 Cutaneous abscess of unspecified hand; I96 Gangrene, not elsewhere classified; B37.0 Candidal stomatitis; E11.22 Type 2 diabetes mellitus with diabetic chronic kidney disease; Z99.2 Dependence on renal dialysis; I25.10 Atherosclerotic heart disease of native coronary artery without angina pectoris; I48.91 Unspecified atrial fibrillation; E03.9 Hypothyroidism, unspecified; D63.1 Anemia in chronic kidney disease; E13.51 Other specified diabetes mellitus with diabetic peripheral angiopathy without gangrene; E78.5 Hyperlipidemia, unspecified; D72.829 Elevated white blood cell count, unspecified; F41.8 Other specified anxiety disorders; Z98.61 Coronary angioplasty status; I50.9 Heart failure, unspecified; I73.9 Peripheral vascular disease, unspecified; Z79.4 Long term (current) use of insulin
CPT/HCPCS: 36415; 71045-TC-FY; 73206-TC-RT; 73702-TC-RT; 80048; 80053; 82565; 82595; 82728; 82962; 83520; 83540; 83550; 83605; 83615; 83735; 83880; 84100; 84443; 84520; 85025; 85027; 85044; 85610; 85730; 86038; 86256; 86850; 86870; 86900; 86901; 86902; 87040; 87070; 87077; 87186; 87205; 93005; 93010; 93926-TC; 93971-TC; 94640; 99285-25; G0480; J0885; J1644; J7030

== ENCOUNTER 2018-01-15 10:33 | Emergency (ER) | payer OTHER ==
--- NOTE | 2018-01-15 10:39 | PDOC ---
History of Present Illness - General Stated Complaint: NOSE BLEED History Source: Patient, Family Exam Limitations: No Limitations - History of Present Illness Initial Comments: 01/15/18 11:28 Pt is a 72 yo F with signif PMHx including ESRD (MWF), DM, PAD (s/p R AKA, L 3 digit amputations), DM, depression, afib, pacemaker, defibrillator, on eliquis and ASA, brought in this am from [facility] with L epistaxis. Pt started bleeding around 6am this morning with clots and continued till about 8am. Hemostasis was relatively achieved with application of pressure, ice compression and packing. Pt had albuterol treatment this am, then coughed once and noticed the bleed. Pt had noticed a dry cough that started yesterday. No nasal congestion and no trauma to the nose or face. She does not normally use home oxygen, but Pt had similar bleed about 2 weeks ago from the same nostril that stopped after packing and withing a shorter time. No dizziness, palpitations, or chest pain. No bleeding from any other orifice. Pt had been on warfarin for long and was switched to eliquis about 6 weeks ago. 01/15/18 11:55 Severity: moderate Associated Symptoms: reports: cough (dry cough that started yesterday). denies : chest pain, diaphoresis, fever/chills, headaches, loss of appetite, malaise, nausea/vomiting, seizure, shortness of breath, syncope, weakness Past History - Travel Traveled outside of the country in the last 30 days: No Close contact w/someone who was outside of country & ill: No - Past Medical History Allergies/Adverse Reactions: Allergies Allergy/AdvReac Type Severity Reaction Status Date / Time adhesive tape Allergy Severe SKIN TEAR Verified 01/15/18 10:50 amoxicillin trihydrate AdvReac Severe DIARRHEA Verified 01/15/18 10:50 [From Augmentin] potassium clavulanate AdvReac Severe DIARRHEA Verified 01/15/18 10:50 [From Augmentin] Home Medications: Ambulatory Orders Acetaminophen [Tylenol] 650 mg PO Q4H PRN 01/15/18 Albuterol 2.5/Ipratropium 0.5 [Duoneb -] 1 neb IH QID PRN 01/15/18 Aspirin [Aspirin EC] 81 mg PO DAILY 01/15/18 Atorvastatin Ca [Lipitor] 40 mg PO HS 01/15/18 Bisacodyl Suppository [Dulcolax Suppository -] 10 mg RC DAILY PRN 01/15/18 Gabapentin [Neurontin -] 100 mg PO HS 01/15/18 Insulin Aspart [Novolog] 0 unit SQ TID PRN 01/15/18 Levothyroxine [Synthroid -] 137 mcg PO DAILY 01/15/18 Lidocaine 5% Patch [Lidoderm Patch -] 1 patch TP DAILY 01/15/18 Metoprolol Succinate [Toprol Xl] 12.5 mg PO SUTUTHSA 01/15/18 Ondansetron HCl [Zofran] 4 mg PO Q8H PRN 01/15/18 Pantoprazole Sodium 40 mg PO DAILY 01/15/18 Polyethylene Glycol 3350 [Miralax (For Daily Use) -] 17 gm PO DAILY 01/15/18 Sennosides [Senna] 8.6 mg PO HS 01/15/18 Sodium Thiosulfate 0 gm PO MOWEFR 01/15/18 Vancomycin 1 Gram (Pre-Docked) [Vancomycin (Pre-Docked)] 1,000 mg IVPB MOWEFR Anemia: Yes Asthma: No Cancer: No Cardiac Disorders: Yes (Atherosclerotic Heart Disease, Ischemia) CVA: No COPD: No CHF: Yes (6 YEARS AGO) Dementia: No Diabetes: Yes (Type II) Dialysis: Yes () GI Disorders: No Disorders: Yes (CRF;dialysis [place] [id number]) HTN: Yes Hypercholesterolemia: Yes Liver Disease: No Seizures: No Thyroid Disease: Yes (Thyrotoxicosis) - Surgical History Abdominal Surgery: No Appendectomy: No Cardiac Surgery: Yes (STENTS X3) Cholecystectomy: No Lung Surgery: No Neurologic Surgery: No Orthopedic Surgery: Yes (R.Rotator Cuff, R.AKA. LEFT MID FOOT AMPUTATION) - Immunization History Immunization Up to Date: Yes - Suicide/Smoking/Psychosocial Hx Smoking Status: No Smoking History: Never smoked Have you smoked in the past 12 months: No Number of Cigarettes Smoked Daily: 0 Hx Alcohol Use: No Drug/Substance Use Hx: No Substance Use Type: None Hx Substance Use Treatment: No Review of Systems - Review of Systems Able to Perform ROS?: Yes Is the patient limited Jordanian proficient: No Constitutional: No: Symptoms Reported, Chills, Diaphoresis, Fever, Malaise Medical Decision Making - Medical Decision Making 01/15/18 11:56 Pt came in without active bleeding. Initial heart rate was below 100. Vitals have remained vital and bleeding has been trickling and not massive with clots. Will hold off labs for now. Oxygen was removed to prevent worsening dryness of the nostrils. During examination, the bleeding was noted to be dripping posteriorly. She was repositioned, oxymetazoline spray used the nostrils pinched Pt complained about discomfort from the pinching. It was removed momentarily and she resumed dripping posteriorly. Plan is to pack the nostrils if she is not tolerating the pinching or if bleed 01/15/18 12:09 We repeated the spray and repinched the nose Patient has anxiety disorder at baseline, so 0.5mg of xanax was given PO to calm her down. 01/15/18 12:51 Plan is to refer pt to an ENT- Dr Angulo, at discharge 01/15/18 13:23 Patient did not need to have the nose packed, as the bleeding stopped after pinching Patient will be discharged with instructions to refrain from intranasal oxygen, to use a humidifier and follow with the ENT surgeon 01/15/18 13:31 *DC/Admit/Observation/Transfer Diagnosis at time of Disposition: Epistaxis, ESRD on hemodialysis - Discharge Dispostion Disposition: [facility] FAC[facility] Condition at time of disposition: Improved Admit: No - Referrals Referrals: Carlo Du [Primary Care Provider] - - Patient Instructions Printed Discharge Instructions: DI for Nosebleed Additional Instructions: You were seen here for bleeding of your left nostril We used oxymetazoline spray and pinched the nose The bleeding completely stopped Since you have had a previous episode in the past, we are referring you to see the ENT Dr Angulo as an outpatient Please avoid intranasal oxygen or anything that will dry up your nostrils, try to use a humidifier at all times and avoid blowing vigorously or picking your nose Please follow up with your primary care physician in one week Please schedule to see an ENT surgeon- Dr Angulo within a week or two If you feel you are not getting better-with continuous uncontrollable breathing , with shortness of breath, chest pain or feeling faint, please go to the nearest emergency room - Post Discharge Activity - Attestations Physician Attestion: 01/15/18 13:32 Comfort Jose Armando CASTILLO
[2018-01-15 10:58] VITALS: BP 114/85; PULSE 97; TEMP 98.5; BMI 28.1
[2018-01-15] MEDS ORDERED: OXYMETAZOLINE 0.05% NASAL SOLUTION 15 ML BOTTLE NS ONE (11:17)
[2018-01-15] MEDS ORDERED: ALPRAZolam 0.25 MG TABLET PO ONE (12:09)
[2018-01-15] MEDS ORDERED: ALPRAZolam 0.25 MG TABLET ONE (12:18)
--- NOTE | 2018-01-15 12:24 | PDOC ---
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 Patient reports having a nosebleed yesterday that resolved with pressure and ice packs to the nose. However, today it started up again, and she has been unable to control it with cotton balls and ice. Pt denies any trauma to her face. Denies picking her nose. Denies any bleeding anywhere else. Patient denies lightheadedness, dizziness, headache. Patient denies chest pain, palpitations, diaphoresis. Patient denies fever, chills, abdominal pain, nausea, vomit, diarrhea or constipation. Patient denies dysuria, frequency, urgency or hematuria. Patient denies sick contacts or recent travel. Allergies: Augmentin, adhesive tape. Past surgical history: R.Rotator Cuff, R.AKA. LEFT MID FOOT AMPUTATION, cardiac stents x3, multiple finger amputation left hand (2nd and 4th digit to the mid finger and 3rd digit completely) Social History: No alcohol, tobacco or drug use reported PMD: Dr. Florencio Galarza Infectious Disease: Dr. Das Nephrology: Dr. Wan Cruz Vascular Surgeon: Dr. Dharmesh Hilton and Dr. Supa Walter Hand Surgeon: Dr. Swenson " - Physicial Exam PE: 01/15/18 12:23 "GENERAL: Awake, alert, and fully oriented, in no acute distress HEAD: No signs of trauma EYES: PERRLA, EOMI, sclera anicteric, conjunctiva clear ENT: + oozing blood from L nare originating from kesselbach's plexus NECK: Nontender, no stepoffs, Normal ROM, supple, no lymphadenopathy, JVD, or masses LUNGS: Breath sounds equal, clear to auscultation bilaterally. No wheezes, and no crackles HEART: Regular rate and rhythm, normal S1 and S2, no murmurs, rubs or gallops ABDOMEN: Soft, nontender, normoactive bowel sounds. No guarding, no rebound. No masses EXTREMITIES: Normal range of motion, no edema. No clubbing or cyanosis. No cords, erythema, or tenderness NEUROLOGICAL: Cranial nerves II through XII intact. 5/5 strength and sensation in all extremities, Normal speech, normal gait SKIN: Warm, Dry, normal turgor, no rashes or lesions noted." - Medical Decision Making 01/15/18 12:24 72 F with epistaxis on eliquis and baby aspirin. Pt HD stable with anterior L nasal bleed. No evidence of large bleed or posterior bleed. - Afrin spray - Direct pressure with nasal clamp 01/15/18 13:36 Pt reassessed - now with hemostasis. Both nares and oropharynx clear without bleeding. Pt is well appearing, with normal vitals. Clinically stable for DC at this time. I discussed the physical exam findings, ancillary test results and final diagnoses with the patient. I answered all of the patient's questions. The patient was satisfied with the care received and felt comfortable with the discharge plan and treatment plan. The patient agrees to follow up with the primary care physician within 24-72 hours.
== END 2018-01-15 14:48 ==
LOC: JER 10:33
PROC: 2Y41X5Z Packing of Nasal Region using Packing Material (ICD-10-PCS; principal; 2018-01-15)
DX: R04.0 Epistaxis (principal); I13.11 Hypertensive heart and chronic kidney disease without heart failure, with stage 5 chronic kidney disease, or end stage renal disease; E11.22 Type 2 diabetes mellitus with diabetic chronic kidney disease; N18.6 End stage renal disease; N17.8 Other acute kidney failure; Z99.2 Dependence on renal dialysis; Z79.4 Long term (current) use of insulin; Z79.84 Long term (current) use of oral hypoglycemic drugs; I73.89 Other specified peripheral vascular diseases; Z95.810 Presence of automatic (implantable) cardiac defibrillator; Z89.611 Acquired absence of right leg above knee; Z89.432 Acquired absence of left foot; Z89.022 Acquired absence of left finger(s); E05.80 Other thyrotoxicosis without thyrotoxic crisis or storm
CPT/HCPCS: 30901-25; 99285-25

== ENCOUNTER 2020-04-08 10:48 | Inpatient (IN) | payer OTHER ==
[2020-04-08] MEDS ORDERED: SODIUM CHLORIDE 0.9% 500 ML INFUS.BAG IV ONE (11:14)
[2020-04-08 11:29] VITALS: BMI 28.1
--- NOTE | 2020-04-08 11:33 | EKG ---
Test Reason : Blood Pressure : / mmHG Vent. Rate : 089 BPM Atrial Rate : 340 BPM P-R Int : 000 ms QRS Dur : 086 ms QT Int : 372 ms P-R-T Axes : 000 070 232 degrees QTc Int : 452 ms ATRIAL FIBRILLATION CANNOT RULE OUT ANTERIOR INFARCT , AGE UNDETERMINED ABNORMAL ECG Confirmed by MD PRATEEK, DANAE ([id number]) on 04/08/2020 11:33:07 AM Referred By: Confirmed By:DANAE CHANDRA MD
[2020-04-08 12:04] LABS: BASO % 0.5 % (0-2.0); EOS % 0.4 % (0-4.5); HEMATOCRIT 37.7 % (32.4-45.2); HEMOGLOBIN 11.7 GM/dL (10.7-15.3); LYMPH % 14.9 % (8-40); MCH 30.2 pg (25.7-33.7); MEAN CELL VOLUME 97.3 fl (80-96); MEAN PLT VOLUME 7.8 fl (7.5-11.1); MONO % 6.3 % (3.8-10.2); NEUT % 77.9 % (42.8-82.8); PLATELET COUNT 453 K/MM3 (134-434); RBC 3.87 M/mm3 (3.60-5.2); RDW 21.6 % (11.6-15.6); WHITE BLOOD COUNT 11.8 K/mm3 (4.0-10.0)
[2020-04-08 12:11] LABS: INR 1.72 (0.83-1.09); PROTHROMBIN TIME (PATIENT) 20.4 SEC (9.7-13.0)
[2020-04-08 12:28] LABS: VENOUS BASE EXCESS -7.2 mmol/L (-2-2); VENOUS O2 SATURATION 50.2 % (70-80); VENOUS PCO2 50.9 mmHg (38-52); VENOUS PH 7.226 (7.310-7.410)
[2020-04-08 12:35] LABS: ALBUMIN 2.6 g/dl (3.4-5.0); BILIRUBIN,TOTAL 0.5 mg/dL (0.2-1); BLOOD UREA NITROGEN 24.4 mg/dL (7-18); CALCIUM 9.1 mg/dL (8.5-10.1); CREATININE 3.5 mg/dL (0.55-1.3); MAGNESIUM 3.4 mg/dL (1.8-2.4); PHOSPHOROUS 3.3 mg/dL (2.5-4.9); POTASSIUM 4.4 mmol/L (3.5-5.1); TOT PROT 7.4 g/dl (6.4-8.2)
[2020-04-08 12:39] LABS: ANISOCYTOSIS 2+; MACROCYTOSIS 2+; PLATELET ESTIMATE NORMAL
--- NOTE | 2020-04-08 13:51 | PDOC ---
Documentation entered by Jaime Spence SCRIBE, acting as scribe for Shira Gillespie MD. Shira Gillespie MD: This documentation has been prepared by the Bebe wynne Xhesika, SCRIBE, under my direction and personally reviewed by me in its entirety. I confirm that the documentation accurately reflects all work, treatment, procedures, and medical decision making performed by me. History of Present Illness - General Stated Complaint: HEADACHE Time Seen by Provider: 04/08/20 11:05 History Source: Patient Exam Limitations: No Limitations - History of Present Illness Initial Comments: 04/08/20 11:08 The patient is a 74y/o F with a PMH of HTN, NIDDM, HLD, PAD, CHF, Afib, defi brillator placement, ESRD (dialysis on M,W,F - last dialyzed yesterday), R ATK amputation, L foot amputation and L hand 2nd-4th digit amputation (03/12), who presents to the emergency department with sudden onset headache. Per daughter, the patient had an appointment at 9:45am wither her PCP, when she endorsed sudden onset L sided headache radiating to her L side of neck, associated with dizziness and weakness. Daughter notes the patient has been more confused than usual. EMS notes the pt's BP was 80/67. Allergies: amoxicillin trihydrate, potassium clavulanate, adhesive tape. Past surgical history: R.Rotator Cuff, R.AKA. LEFT MID FOOT AMPUTATION, cardiac stents x3, multiple finger amputation left hand (2nd and 4th digit to the mid finger and 3rd digit completely) PCP: Dr. Lua tPA Exclusion Checklist 0-3hr - Time Elapsed Date last known well: 04/08/20 Time last known well: 09:45 Elaspsed time: Day(s) and 5 Hour(s) and 46 Minutes - Thrombolytic Therapy Candidate Is the patient eligible for Thrombolytic Therapy?: No - Exclusion Criteria 0-3hr SBP greater than 185 or DBP greater than 110mmHg despite tx: No Recent IC/spinal surgery,head trauma or stroke w/in last 3mo: No Hx of previous IC hemorrhage, IC neoplasm, AVM or aneurysm: No Active internal bleeding: No Blding diathesis(low plt ct, inc PTT,INR>1.7 or use of NOAC): No Symptoms suggest subarachnoid hemorrhage: Yes CT demonstrates multilobar infarct(>1/3 cerebral hemiphere): No Arterial puncture at noncompressible site in previous 7 days: No Blood glucose concentration less than 50mg/dL (2.7mmol/L): No - Relative Exclusion Criteria 0-3h Care team unable to determine eligibility: No IV/IA thrombolysis/thrombectomy @ another hosp prior arrival: No Life expectancy <1yr/severe co-morbid illness/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 on admit: No : No Patient/family refused: No Stroke severity too mild (non-disabling): No Recent acute ME (w/in previous 3 months): No Seizure at onset with postictal residual neuro impairments: No Major surgery or serious trauma w/in previous 14 days: No Recent GI or hemorrhage (w/in previous 21 days): No - Ineligibility reason(s) Reasons No tPA given: See reason(s) noted above NIH Stroke Scale - Last Known Well Date/Time & Onset Date Last Known Well: 04/08/20 Time Last Known Well: 09:45 - Initial Evaluation Level of consciousness: Alert Ask patient the month and their age: Answers one correctly Ask patient to open & close eyes; make fist and let go: Obeys both correctly Best gaze (horizontal eye movement): Normal Visual field testing: No visual field loss Facial paresis (Show teeth/raise eyebrows/close eyes tight): Normal symmetrical movement Motor Function: Left Arm: Normal Motor Function: Right Arm: Normal (extends arm 90 (or 45) degrees for 10 seconds without drift Motor Function: Left Leg: Normal (extends leg 30 degrees for 5 seconds without drift) Motor Function: Right Leg: Normal (extends leg 30 degrees for 5 seconds without drift) Limb Ataxia: No ataxia Sensory(Use pinprick test arms,legs,trunk,face/side to side): Normal Best language (Describe picture, name items, read sentences): Mild to moderate aphasia Dysarthria (read several words): Normal articulation Extinction and Inattention: No abnormality - Total Score NIH Stroke Scale Score: 2 Past History - Medical History Allergies/Adverse Reactions: Allergies Allergy/AdvReac Type Severity Reaction Status Date / Time adhesive tape Allergy Severe SKIN TEAR Verified 04/08/20 10:50 amoxicillin trihydrate AdvReac Severe DIARRHEA Verified 04/08/20 10:50 [From Augmentin] potassium clavulanate AdvReac Severe DIARRHEA Verified 04/08/20 10:50 [From Augmentin] Home Medications: Ambulatory Orders Acetaminophen [Tylenol] 650 mg PO Q4H PRN 01/15/18 Albuterol 2.5/Ipratropium 0.5 [Duoneb -] 1 neb IH QID PRN 01/15/18 Aspirin [Aspirin EC] 81 mg PO DAILY 01/15/18 Atorvastatin Ca [Lipitor] 40 mg PO HS 01/15/18 Bisacodyl Suppository [Dulcolax Suppository -] 10 mg RC DAILY PRN 01/15/18 Gabapentin [Neurontin -] 100 mg PO HS 01/15/18 Insulin Aspart [Novolog] 0 unit SQ TID PRN 01/15/18 Levothyroxine [Synthroid -] 137 mcg PO DAILY 01/15/18 Lidocaine 5% Patch [Lidoderm Patch -] 1 patch TP DAILY 01/15/18 Metoprolol Succinate [Toprol Xl] 12.5 mg PO SUTUTHSA 01/15/18 Ondansetron HCl [Zofran] 4 mg PO Q8H PRN 01/15/18 Pantoprazole Sodium 40 mg PO DAILY 01/15/18 Polyethylene Glycol 3350 [Miralax (For Daily Use) -] 17 gm PO DAILY 01/15/18 Sennosides [Senna] 8.6 mg PO HS 01/15/18 Sodium Thiosulfate 0 gm PO MOWEFR 01/15/18 Vancomycin 1 Gram (Pre-Docked) [Vancomycin (Pre-Docked)] 1,000 mg IVPB MOWEFR 01/15/18 Anemia: Yes Asthma: No Cancer: No Cardiac Disorders: Yes (Atherosclerotic Heart Disease, Ischemia) CVA: No COPD: No CHF: Yes (6 YEARS AGO) Dementia: No Diabetes: Yes (Type II) Dialysis: Yes (-) GI Disorders: No Disorders: Yes (CRF;dialysis [facility] [phone]) HTN: Yes Hypercholesterolemia: Yes Liver Disease: No Seizures: No Thyroid Disease: Yes (Thyrotoxicosis) - Surgical History Abdominal Surgery: No Appendectomy: No Cardiac Surgery: Yes (STENTS X3) Cholecystectomy: No Lung Surgery: No Neurologic Surgery: No Orthopedic Surgery: Yes (R.Rotator Cuff, R.AKA. LEFT MID FOOT AMPUTATION) - Immunization History Immunization Up to Date: Yes - Psycho-Social/Smoking History Smoking Status: No Smoking History: Never smoked Have you smoked in the past 12 months: No Number of Cigarettes Smoked Daily: 0 Review of Systems - Review of Systems Able to Perform ROS?: Yes Comments:: 04/08/20 11:10 GEN: generalized weakness, no fever, chills, or malaise HEENT: no ear pain, congestion, sore throat, vision change, or eye pain CV: no chest pain, palpitations, lightheadedness, syncope, or edema RESP: no SOB, wheezing, or cough GI: no abdominal pain, nausea, vomiting, diarrhea, constipation, or rectal bleed : no dysuria, hematuria, or discharge MSK: no muscle weakness or pain, no joint swelling or pain NEURO: headache, vertigo, confusion, no numbness, tingling, or focal weakness PSYCH: no SI, HI, or behavior change SKIN: no jaundice, rash, lesions, or unexplained bruises ROS otherwise negative except as noted in HPI *Physical Exam - Vital Signs Initial Vital Signs Temp Pulse Resp BP Pulse Ox 96.8 F L 96 H 18 80/67 L 94 L 04/08/20 11:28 04/08/20 11:28 04/08/20 11:28 04/08/20 11:28 04/08/20 11:28 - Physical Exam GENERAL: elderly, confused but nontoxic-appearing, multiple extremity amputations, answers simple questions appropriately, accompanied by daughter at bedside who assist in history, family states Pt is confused relative to her at baseline HEENT: PERRLA, EOMI, moist mucous membranes NECK/BACK: no midline ttp, no spinal stepoff or deformity, no hematoma, full ROM, neck supple, no carotid bruit CARDIOVASCULAR: regular rate/rhythm, no MGR, strong peripheral pulses, capillary refill <2 seconds, extremities wwp, no edema LUNGS/RESPIRATORY: no respiratory distress, CTAB GI/ABDOMEN: symmetric [id number], normoactive BS, soft, no ttp, no midline pulsatile masses : no CVA tenderness MSK/EXTREMITIES: no acute-appearing muscle atrophy, no acute deformity, multiple extremity amputations DERM/SKIN: warm and dry, no pallor, no jaundice, no rash, no pathologic- appearing bruising, no skin breakdown, no cuts, no lesions NEUROLOGICAL: CN II-XII intact, Initially GCS 14 and A/O x2, NIHSS 2 initially, 5/5 strength proximally and distally, no facial droop, no decreased sensation, no nystagmus, no drift any extremity Heart Score/ECG Review #1 04/08/20 11:18 A-fib, ventricular rate 89, normal axis, normal QRS interval, TWI in II, III, aV. No ST elevations. ED Treatment Course - LABORATORY CBC & Chemistry Diagram: 04/08/20 11:43 04/08/20 11:43 Medical Decision Making - Medical Decision Making 04/08/20 11:28 74YOF with ESRD on HD MWF (last yesterday was normal), who p/w unilateral headache, dizziness, confusion. The time of onset of NELSON was immediately prior to 911 call this morning, time of onset AMS was on arrival to the ED. Code [place] is called. Initial Vital Signs Temp Pulse Resp BP Pulse Ox 96.8 F L 96 H 18 80/67 L 94 L 04/08/20 11:28 04/08/20 11:28 04/08/20 11:28 04/08/20 11:28 04/08/20 11:28 BP labile anywhere from 60s systolic to 140s systolic. DDX IBNLT: Concern is mainly for ICH, hemorrhagic or thrombotic CVA/TIA, also possible seizure, CND malignancy, MARINE PAINTER infection i.e. meningitis/encephalitis, cervical dissection, hypoglycemia, limb ischemia (e.g. thromboembolism or dissection), other causes of AMS including polypharmacy, toxic/metabolic, etc. W/U ordered: Labs as noted below, CT head stroke protocol, CXR portable, EKG TX ordered: IV, O2, Monitor, IVF x250cc given hypotension Head CT (non-contrast): Nothing acute, spoke with Dr. Min. NIH is 2 and Pt is not a tPA candidate as symptoms have resolved. EKG: Reviewed; results as noted in ECG Review section. CXR: Nothing acute Head CT: Nothing acute Laboratory Tests 04/08/20 04/08/20 04/08/20 11:26 11:43 11:43 WBC RBC Hgb Hct MCV MCH MCHC RDW Plt Count MPV Absolute Neuts (auto) Neutrophils % Lymphocytes % Monocytes % Eosinophils % Basophils % Nucleated RBC % Hypochromia Platelet Estimate Platelet Comment Polychromasia Poikilocytosis Anisocytosis Microcytosis Macrocytosis PT with INR 20.40 H INR 1.72 H PTT (Actin FS) 43.0 H VBG pH POC VBG pCO2 POC VBG pO2 VBG HCO3 VBG O2 Sat ([place]) VBG Base Excess Sodium 136 Potassium 4.4 Chloride 101 Carbon Dioxide 21 Anion Gap 13 BUN 24.4 H Creatinine 3.5 H Est GFR (CKD-EPI)AfAm 13.94 Est GFR (CKD-EPI)NonAf 12.02 POC Glucometer 186 Random Glucose 188 H Lactic Acid Calcium 9.1 Phosphorus 3.3 Magnesium 3.4 H Total Bilirubin 0.5 AST 25 ALT 25 Alkaline Phosphatase 290 H Creatine Kinase CK-MB (CK-2) Troponin I 0.02 Total Protein 7.4 Albumin 2.6 L Blood Type Antibody Screen Antibody Identification 04/08/20 04/08/20 04/08/20 11:43 11:43 11:43 WBC 11.8 H RBC 3.87 Hgb 11.7 Hct 37.7 D MCV 97.3 H MCH 30.2 MCHC 31.0 L RDW 21.6 H Plt Count 453 H MPV 7.8 Absolute Neuts (auto) 9.2 H Neutrophils % 77.9 Lymphocytes % 14.9 Monocytes % 6.3 Eosinophils % 0.4 D Basophils % 0.5 Nucleated RBC % 0 Hypochromia 0 Platelet Estimate Normal Platelet Comment Present Polychromasia 1+ Poikilocytosis 0 Anisocytosis 2+ Microcytosis 0 Macrocytosis 2+ PT with INR INR PTT (Actin FS) VBG pH POC VBG pCO2 POC VBG pO2 VBG HCO3 VBG O2 Sat ([place]) VBG Base Excess Sodium Potassium Chloride Carbon Dioxide Anion Gap BUN Creatinine Est GFR (CKD-EPI)AfAm Est GFR (CKD-EPI)NonAf POC Glucometer Random Glucose Lactic Acid 4.5 H* Calcium Phosphorus Magnesium Total Bilirubin AST ALT Alkaline Phosphatase Creatine Kinase 104 CK-MB (CK-2) 1.7 Troponin I Total Protein Albumin Blood Type Antibody Screen Antibody Identification 04/08/20 04/08/20 11:43 11:43 WBC RBC Hgb Hct MCV MCH MCHC RDW Plt Count MPV Absolute Neuts (auto) Neutrophils % Lymphocytes % Monocytes % Eosinophils % Basophils % Nucleated RBC % Hypochromia Platelet Estimate Platelet Comment Polychromasia Poikilocytosis Anisocytosis Microcytosis Macrocytosis PT with INR INR PTT (Actin FS) VBG pH 7.226 L POC VBG pCO2 50.9 POC VBG pO2 32.0 VBG HCO3 20.6 L VBG O2 Sat ([place]) 50.2 L VBG Base Excess -7.2 L Sodium Potassium Chloride Carbon Dioxide Anion Gap BUN Creatinine Est GFR (CKD-EPI)AfAm Est GFR (CKD-EPI)NonAf POC Glucometer Random Glucose Lactic Acid Calcium Phosphorus Magnesium Total Bilirubin AST ALT Alkaline Phosphatase Creatine Kinase CK-MB (CK-2) Troponin I Total Protein Albumin Blood Type A POSITIVE Antibody Screen Positive Antibody Identification Anti-E Spoke with on-call neurologist and consult order is placed to Dr. Justice. Spoke with Dr. Cruz and all in agreement with plan for contrast for CTA head/neck. Th e Pt is unsafe for discharge at this time. I have spoken with Dr. Grier, patient admitted under his service for Dr. Bee. Head CTA: Nothing acute Neck CTA: Nothing acute Last Vital Signs Temp Pulse Resp BP Pulse Ox 96.7 F L 78 19 128/64 100 04/08/20 12:08 04/08/20 14:04 04/08/20 14:04 04/08/20 14:04 04/08/20 14:04 Discharge - Discharge Information Problems reviewed: Yes Clinical Impression/Diagnosis: Neck pain on left side Altered mental status Qualifiers: Altered mental status type: transient alteration of awareness Qualified Code(s): R40.4 - Transient alteration of awareness Headache Qualifiers: Headache type: unspecified Headache chronicity pattern: acute headache Intra ctability: not intractable Qualified Code(s): R51 - Headache Condition: Guarded - Admission Yes - Follow up/Referral - Patient Discharge Instructions - Post Discharge Activity
--- NOTE | 2020-04-08 14:14 | HP ---
Admitting History and Physical - Admission Chief Complaint: Acute onset of severe keft sided headache associated with diz ziness and weakness. History of Present Illness: This 74 yr old w/f with PMH of HTN, NIDDM, HLD, PAD, CHF, atrial fibrillation, s/p defibrillator placement, ESRD, R ATK amputation, left 2nd to 4th digits amputation admitted via ER with an acute left sided headache, dizziness, generalized weakness and orthostatic hypotension. History Source: Patient, Medical Record Limitations to Obtaining History: No Limitations - Past Medical History Cardiovascular: Yes: AFIB, CAD, CHF, HTN, Hyperlipdemia, Other (coronary stents x 3) Pulmonary: Yes: COPD Gastrointestinal: No: Ascites, Cancer, Constipation, Crohn's Disease, Diverticulitis, Diverticulosis, Esophageal Varices, Gastritis, GERD, GI Bleed, Hemorrhoids, Hiatal Hernia, Inflamatory Bowel Disease, Irritable Bowel Disease, Pancreatitis, Peptic Ulcer Disease, Ulcerative Colitis, Other Hepatobiliary: No: Cirrhosis, Cholelithiasis, Cholecystitis, Choledochol ithiasis, Hepatitis A, Hepatitis B, Hepatitis C, Other Renal/: Yes: Renal Failure, Hemodialysis. No: Hematuria Reproductive: No: Ectopic , Endometriosis, Fibroids, PID, Polycystic Ovary Syndrome, Postmenopausal, Other Heme/Onc: Yes: Anemia Infectious Disease: Yes: MRSA Psych: No: Addictions, Anxiety, Bipolar, Depression, Panic, Psychosis, Schizophrenia, Other Musculoskeletal: Yes: Other (R rotator cuff repair) Rheumatology: No: Fibromyalgia, Gout, Lupus, Rheumatoid Arthritis, Sarcoidosis, Vasculitis, Other ENT: No: Allergic Rhinitis, Sinusitis, Other Endocrine: Yes: Diabetes Mellitus, Hypothyroidism Dermatology: No: Basal Cell, Cellulitis, Eczema, Melanoma, Psoriasis, Squamous Cell, Other - Past Surgical History Past Surgical History: Yes: Amputation (Rt AKA, left TMA), Hysterectomy (thyroid surgery), Stent - Smoking History Smoking history: Never smoked Have you smoked in the past 12 months: No Aproximately how many cigarettes per day: 0 - Alcohol/Substance Use Hx Alcohol Use: No History of Substance Use: reports: None - Social History ADL: Support Services History of Recent Travel: No Home Medications - Allergies Allergies/Adverse Reactions: Allergies Allergy/AdvReac Type Severity Reaction Status Date / Time adhesive tape Allergy Severe SKIN TEAR Verified 04/08/20 10:50 amoxicillin trihydrate AdvReac Severe DIARRHEA Verified 04/08/20 10:50 [From Augmentin] potassium clavulanate AdvReac Severe DIARRHEA Verified 04/08/20 10:50 [From Augmentin] - Home Medications Home Medications: Ambulatory Orders Acetaminophen [Tylenol] 650 mg PO Q4H PRN 01/15/18 Albuterol 2.5/Ipratropium 0.5 [Duoneb -] 1 neb IH QID PRN 01/15/18 Aspirin [Aspirin EC] 81 mg PO DAILY 01/15/18 Atorvastatin Ca [Lipitor] 40 mg PO HS 01/15/18 Bisacodyl Suppository [Dulcolax Suppository -] 10 mg RC DAILY PRN 01/15/18 Gabapentin [Neurontin -] 100 mg PO HS 01/15/18 Insulin Aspart [Novolog] 0 unit SQ TID PRN 01/15/18 Levothyroxine [Synthroid -] 137 mcg PO DAILY 01/15/18 Lidocaine 5% Patch [Lidoderm Patch -] 1 patch TP DAILY 01/15/18 Metoprolol Succinate [Toprol Xl] 12.5 mg PO SUTUTHSA 01/15/18 Ondansetron HCl [Zofran] 4 mg PO Q8H PRN 01/15/18 Pantoprazole Sodium 40 mg PO DAILY 01/15/18 Polyethylene Glycol 3350 [Miralax (For Daily Use) -] 17 gm PO DAILY 01/15/18 Sennosides [Senna] 8.6 mg PO HS 01/15/18 Sodium Thiosulfate 0 gm PO MOWEFR 01/15/18 Vancomycin 1 Gram (Pre-Docked) [Vancomycin (Pre-Docked)] 1,000 mg IVPB MOWEFR 01/15/18 Review of Systems - Review of Systems Constitutional: reports: Weakness Eyes: reports: No Symptoms HENT: reports: Other (pain of the left side of the neck radiating to the left temporal region) Neck: reports: No Symptoms Cardiovascular: reports: No Symptoms Respiratory: reports: No Symptoms Gastrointestinal: reports: No Symptoms Genitourinary: reports: No Symptoms Breasts: reports: No Symptoms Reported Musculoskeletal: reports: Muscle Pain (left side of the neck), Muscle Weakness (left side of the neck) Integumentary: reports: No Symptoms Neurological: reports: Dizziness, Headache, Weakness Endocrine: reports: No Symptoms Hematology/Lymphatic: reports: No Symptoms Psychiatric: reports: No Symptoms Physical Examination Vital Signs: Vital Signs Temperature 96.7 F L 04/08/20 12:08 Pulse Rate 78 04/08/20 14:04 Respiratory Rate 19 04/08/20 14:04 Blood Pressure 128/64 04/08/20 14:04 O2 Sat by Pulse Oximetry (%) 100 04/08/20 14:04 Constitutional: Yes: Well Nourished, Calm, Mild Distress Eyes: Yes: Conjunctiva Clear, EOM Intact, Cataracts HENT: Yes: Atraumatic, Normocephalic, Other (pain left side of the neck) Neck: Yes: Supple, Trachea Midline Cardiovascular: Yes: Regular Rate and Rhythm Respiratory: Yes: Regular, CTA Bilaterally Gastrointestinal: Yes: Normal Bowel Sounds, Soft ...Rectal Exam: Yes: Deferred Renal/: Yes: Anuria Breast(s): Yes: WNL Musculoskeletal: Yes: Muscle Pain (left side of the neck), Muscle Weakness (left side of the neck) Extremities: Yes: Amputation (R AKA, left 2nd - 4th digits, left mid foot amputation), Other (right rotator cuff tear) Edema: No Peripheral Pulses WNL: No Integumentary: Yes: Other (open wound of the left stump) Wound/Incision: Yes: Dressing Dry and Intact Neurological: Yes: Alert, Oriented, Weakness ...Motor Strength: LLE (left mid foot amputation), RLE (R AKA) Psychiatric: Yes: Alert, Oriented Labs: CBC, BMP 04/08/20 11:43 04/08/20 11:43 Imaging - Results Chest X-ray: Report Reviewed Cat Scan: Report Reviewed Other: Report Reviewed (lab data reviewed) Problem List - Problems (1) Headache Code(s): R51 - HEADACHE Qualifiers: Headache type: unspecified Headache chronicity pattern: acute headache Intractability: not intractable Qualified Code(s): R51 - Headache (2) Anemia in ESRD (end-stage renal disease) Code(s): N18.6 - END STAGE RENAL DISEASE; D63.1 - ANEMIA IN CHRONIC KIDNEY DISEASE (3) Atrial fibrillation Code(s): I48.91 - UNSPECIFIED ATRIAL FIBRILLATION Qualifiers: (4) Constipation Code(s): K59.00 - CONSTIPATION, UNSPECIFIED (5) DM type 2 causing complication Code(s): E11.8 - TYPE 2 DIABETES MELLITUS WITH UNSPECIFIED COMPLICATIONS (6) Depression Code(s): F32.9 - MAJOR DEPRESSIVE DISORDER, SINGLE EPISODE, UNSPECIFIED (7) Diabetes Code(s): E11.9 - TYPE 2 DIABETES MELLITUS WITHOUT COMPLICATIONS Qualifiers: (8) Dizziness Code(s): R42 - DIZZINESS AND GIDDINESS (9) ESRD (end stage renal disease) on dialysis Code(s): N18.6 - END STAGE RENAL DISEASE; Z99.2 - DEPENDENCE ON RENAL DIALYSIS (10) ESRD on hemodialysis Code(s): N18.6 - END STAGE RENAL DISEASE; Z99.2 - DEPENDENCE ON RENAL DIALYSIS (11) Foot amputation status Code(s): Z89.439 - ACQUIRED ABSENCE OF UNSPECIFIED FOOT (12) HTN (hypertension) Code(s): I10 - ESSENTIAL (PRIMARY) HYPERTENSION Qualifiers: Hypertension type: essential hypertension Qualified Code(s): I10 - Essential (primary) hypertension (13) History of ESBL Klebsiella pneumoniae infection Code(s): Z86.19 - PERSONAL HISTORY OF OTHER INFECTIOUS AND PARASITIC DISEASES (14) History of percutaneous coronary intervention Code(s): Z98.890 - OTHER SPECIFIED POSTPROCEDURAL STATES (15) Hypercholesterolemia Code(s): E78.00 - PURE HYPERCHOLESTEROLEMIA, UNSPECIFIED (16) Hypothyroidism Code(s): E03.9 - HYPOTHYROIDISM, UNSPECIFIED Qualifiers: (17) Leg wound, left Code(s): S81.802A - UNSPECIFIED OPEN WOUND, LEFT LOWER LEG, INITIAL ENCOUNTER (18) Peripheral vascular disease due to secondary diabetes Code(s): E13.51 - OTH DIABETES W DIABETIC PERIPHERAL ANGIOPATHY W/O GANGRENE (19) S/P transmetatarsal amputation of foot Code(s): Z89.439 - ACQUIRED ABSENCE OF UNSPECIFIED FOOT Qualifiers: Laterality: left Qualified Code(s): Z89.432 - Acquired absence of left foot (20) Severe major depression Code(s): F32.2 - MAJOR DEPRESSV DISORD, SINGLE EPSD, SEV W/O PSYCH FEATURES (21) Status post transmetatarsal amputation of left foot Code(s): Z89.432 - ACQUIRED ABSENCE OF LEFT FOOT (22) Unilateral AKA Code(s): Z89.619 - ACQUIRED ABSENCE OF UNSPECIFIED LEG ABOVE KNEE (23) Musculoskeletal neck pain Code(s): M54.2 - CERVICALGIA Assessment/Plan Assessment/plan: acute musculoskeletal pain of the left side of the neck radiating toward left temporal region, acute dizziness, acute generalized weakness, acute orthostatic hypotension, acute lactic acidosis, HTN, NIDDM, HLD, PAD, CHF, atrial fibrillation, s/p defibrillator placement, atrial fibrillation, s/p R AKA, left mid foot amputation, right rotator cuff repair; physical therapy, consult to Neurology, on hemodialysis, wound care, a/c with Eliquis, IV fluids, sliding scale regular insulin coverage, Novolog 70/30 mix 17 units sq bid, lactulose, sevelamer, atrovastatin, isosorbide, metoprolol, gabapentin, melatonin.
[2020-04-08] MEDS ORDERED: ALBUTEROL SO4 2.5/IPRATROPIUM 0.5 INH SOL 3 ML VIAL.NEB. NEB PRN (14:27)
[2020-04-08] MEDS ORDERED: BISACODYL 10 MG SUPP.RECT PR PRN (14:29)
[2020-04-08] MEDS ORDERED: SENNOSIDES 8.6MG TABLET (FP) PO PRN (15:29)
[2020-04-08] MEDS ORDERED: DOCUSATE SODIUM 100 MG CAPSULE (FP) PO PRN (15:30)
[2020-04-08] MEDS ORDERED: MELATONIN 5 MG TABLETS PO PRN (15:31)
[2020-04-08] MEDS ORDERED: SODIUM CHLORIDE 0.45% 1,000 ML IV SCH (16:00)
--- NOTE | 2020-04-08 16:16 | CON.NEP ---
Consult Consult Specialty:: Nephrology Referred by:: ED Reason for Consultation:: ESRD on HD - History of Present Illness Chief Complaint: Headache and neck pain History of Present Illness: This is a 74 year old woman with history of ESRD on HD (MWF) CAD, CHF, PVD s/p multiple amputations, DM, AICD who presented from home with complaints of left sided headache and neck pain. Seen and examined in the ED. Last had dialysis on Tuesday. Awake and alert. Feels a little better now. Pain has been present for 1- 2 days. No arm weakness. No acute change in vision. No chest pain or palpitations. No confusion or lethargy. No fever or chills at home. No abd pain but occasionally has cramps in lower abdomen. No cough, shortness of breath. 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 No: Hematuria Infectious Disease: Yes: MRSA Psych: No: Addictions, Anxiety, Bipolar, Depression, Panic, Psychosis, Schizophrenia, Other Musculoskeletal: Yes: Other (R rotator cuff repair) Rheumatology: No: Fibromyalgia, Gout, Lupus, Rheumatoid Arthritis, Sarcoidosis, Vasculitis, Other ENT: No: Allergic Rhinitis, Sinusitis, Other Endocrine: Yes: Diabetes Mellitus, Hypothyroidism Dermatology: No: Basal Cell, Cellulitis, Eczema, Melanoma, Psoriasis, Squamous Cell, Other Additional Medical History: Steal syndrome , PVD- s//p surgery. End stage renal disease (hemodialysis 3x per week). Congestive heart failure. Diabetes. Hypertension. Hyperlipidemia. Peripheral vascular occlusive disease. Hypothyroidism. Anemia. Gastroesophageal reflux disease - Past Surgical History Past Surgical History: Yes: Amputation (Rt AKA, left TMA), Hysterectomy (thyroid surgery), Stent - Alcohol/Substance Use Hx Alcohol Use: No History of Substance Use: reports: None - Smoking History Smoking history: Never smoked Have you smoked in the past 12 months: No Aproximately how many cigarettes per day: 0 - Social History Usual Living Arrangement: Care Home ADL: Support Services History of Recent Travel: No Home Medications - Allergies Allergies/Adverse Reactions: Allergies Allergy/AdvReac Type Severity Reaction Status Date / Time adhesive tape Allergy Severe SKIN TEAR Verified 04/08/20 10:50 amoxicillin trihydrate AdvReac Severe DIARRHEA Verified 04/08/20 10:50 [From Augmentin] potassium clavulanate AdvReac Severe DIARRHEA Verified 04/08/20 10:50 [From Augmentin] - Home Medications Home Medications: Ambulatory Orders Acetaminophen [Tylenol] 650 mg PO Q4H PRN 01/15/18 Albuterol 2.5/Ipratropium 0.5 [Duoneb -] 1 neb IH QID PRN 01/15/18 Aspirin [Aspirin EC] 81 mg PO DAILY 01/15/18 Atorvastatin Ca [Lipitor] 40 mg PO HS 01/15/18 Bisacodyl Suppository [Dulcolax Suppository -] 10 mg RC DAILY PRN 01/15/18 Gabapentin [Neurontin -] 100 mg PO HS 01/15/18 Insulin Aspart [Novolog] 0 unit SQ TID PRN 01/15/18 Levothyroxine [Synthroid -] 137 mcg PO DAILY 01/15/18 Lidocaine 5% Patch [Lidoderm Patch -] 1 patch TP DAILY 01/15/18 Metoprolol Succinate [Toprol Xl] 12.5 mg PO SUTUTHSA 01/15/18 Ondansetron HCl [Zofran] 4 mg PO Q8H PRN 01/15/18 Pantoprazole Sodium 40 mg PO DAILY 01/15/18 Polyethylene Glycol 3350 [Miralax (For Daily Use) -] 17 gm PO DAILY 01/15/18 Sennosides [Senna] 8.6 mg PO HS 01/15/18 Sodium Thiosulfate 0 gm PO MOWEFR 01/15/18 Vancomycin 1 Gram (Pre-Docked) [Vancomycin (Pre-Docked)] 1,000 mg IVPB MOWEFR 0 01/15/18 Family Medical History Family History: Unremarkable Review of Systems - Review of Systems Constitutional: reports: No Symptoms Eyes: reports: No Symptoms HENT: reports: No Symptoms Neck: reports: Pain on Movement, Other Cardiovascular: reports: No Symptoms Respiratory: reports: No Symptoms Gastrointestinal: reports: No Symptoms Genitourinary: reports: No Symptoms, Other (anuric) Musculoskeletal: reports: No Symptoms Integumentary: reports: No Symptoms Neurological: reports: Headache. denies: Seizure, Syncope, Tremors, Weakness Endocrine: reports: No Symptoms Hematology/Lymphatic: reports: No Symptoms Nephrology Consult - Height Height: 5 ft 7 in - Weight Weight: 81.647 kg - BMI Body Mass Index (BMI): 28.1 - Lab Results CBC,BMP: CBC, BMP 04/08/20 11:43 04/08/20 11:43 Anion Gap: Anion Gap Anion Gap 13 MMOL/L (8-16) 04/08/20 11:43 - Imaging Chest X-ray: Image Reviewed Cat Scan: Report Reviewed - Physical Examination Vital Signs: Vital Signs Temperature 96.7 F L 04/08/20 12:08 Pulse Rate 78 04/08/20 14:04 Respiratory Rate 19 04/08/20 14:04 Blood Pressure 128/64 04/08/20 14:04 O2 Sat by Pulse Oximetry (%) 100 04/08/20 14:04 Constitutional: Yes: Well Nourished, No Distress, Calm Eyes: Yes: Conjunctiva Clear HENT: Yes: Atraumatic Neck: Yes: Supple Cardiovascular: Yes: Pulse Irregular. No: Murmur, Rub Respiratory: Yes: Regular, Diminished. No: Rales, Rhonchi, SOB Gastrointestinal: Yes: Soft. No: Tenderness Access for Hemodialysis: Permacath Extremities: No: Cold, Cool, Cyanosis Edema: No Neurological: Yes: Alert, Oriented Assessment/Plan 74 year old woman with history of ESRD on HD (MWF) CAD, CHF, PVD s/p multiple amputations, DM, AICD who presented from home with complaints of left sided headache and neck pain. 1. Headache/Neck pain r/o CVA vs. vertebral artery dissection 2. Lactic acidosis 3. ESRD on HD 4. CAD/CHF 5. PVD 6. DM CT of the head showed no acute CVA CTA of head and neck showed diffuse calcifications but no overt stenosis seen in any of the large vessels Neurology consult Pain control as needed For dialysis tomorrow with UF as tolerated can give gentle IVF hydration given lactic acidosis Check cultures Renal diet as tolerated Thank you Wan Cruz DO
[2020-04-08] MEDS ORDERED: SODIUM CHLORIDE 250 ML IV PRN (16:19)
[2020-04-08] MEDS: INSULIN SLIDING SCALE (NOVOLOG) 1 VIAL SQ SCH (16:23)
[2020-04-08] MEDS: INSULIN (NOVOLOG MIX 70/30) 100 UNITS/ML MDV SQ SCH (16:24)
[2020-04-08] MEDS ORDERED: ISOSORBIDE MONONITRATE 60 MG TAB.SR.24H (FP) PO ONE (16:28)
[2020-04-08] MEDS ORDERED: FOLIC ACID 1 MG TABLET (FP) ONE (16:28)
[2020-04-08] MEDS: FOLIC ACID 1 MG TABLET (FP) PO SCH (16:36)
[2020-04-08] MEDS: ISOSORBIDE MONONITRATE 20 MG TABLET PO SCH (16:36)
[2020-04-08] MEDS: LACTULOSE 20 GM/30 ML UDC (FOR ORAL USE ONLY) PO SCH (17:17)
[2020-04-08] MEDS: SEVELAMER CARBONATE 0.8 GM POWDER PACKET PO SCH (17:17)
[2020-04-08] MEDS: SODIUM CHLORIDE 1,000 ML IV SCH (17:18)
--- NOTE | 2020-04-08 21:34 | PDOC ---
*Physical Exam - Vital Signs Last Vital Signs Temp Pulse Resp BP Pulse Ox 98.5 F 77 18 80/31 L 100 04/08/20 18:39 04/08/20 19:15 04/08/20 19:15 04/08/20 19:15 04/08/20 18:39 ED Treatment Course - LABORATORY CBC & Chemistry Diagram: 04/08/20 11:43 04/08/20 11:43 - ADDITIONAL ORDERS Additional order review: Laboratory Results 04/08/20 04/08/20 04/08/20 11:43 11:43 11:43 PT with INR INR PTT (Actin FS) VBG pH 7.226 L POC VBG pCO2 50.9 POC VBG pO2 32.0 VBG HCO3 20.6 L VBG O2 Sat ([place]) 50.2 L VBG Base Excess -7.2 L Sodium Potassium Chloride Carbon Dioxide Anion Gap BUN Creatinine Est GFR (CKD-EPI)AfAm Est GFR (CKD-EPI)NonAf POC Glucometer Random Glucose Lactic Acid 4.5 H* Calcium Phosphorus Magnesium Total Bilirubin AST ALT Alkaline Phosphatase Creatine Kinase CK-MB (CK-2) Troponin I Total Protein Albumin Blood Type A POSITIVE Antibody Screen Positive Antibody Identification E Antigen Identification E Antigen - NEGATIVE 04/08/20 04/08/20 04/08/20 11:43 11:43 11:43 PT with INR 20.40 H INR 1.72 H PTT (Actin FS) 43.0 H VBG pH POC VBG pCO2 POC VBG pO2 VBG HCO3 VBG O2 Sat ([place]) VBG Base Excess Sodium 136 Potassium 4.4 Chloride 101 Carbon Dioxide 21 Anion Gap 13 BUN 24.4 H Creatinine 3.5 H Est GFR (CKD-EPI)AfAm 13.94 Est GFR (CKD-EPI)NonAf 12.02 POC Glucometer Random Glucose 188 H Lactic Acid Calcium 9.1 Phosphorus 3.3 Magnesium 3.4 H Total Bilirubin 0.5 AST 25 ALT 25 Alkaline Phosphatase 290 H Creatine Kinase 104 CK-MB (CK-2) 1.7 Troponin I 0.02 Total Protein 7.4 Albumin 2.6 L Blood Type Antibody Screen Antibody Identification Antigen Identification 04/08/20 11:26 PT with INR INR PTT (Actin FS) VBG pH POC VBG pCO2 POC VBG pO2 VBG HCO3 VBG O2 Sat ([place]) VBG Base Excess Sodium Potassium Chloride Carbon Dioxide Anion Gap BUN Creatinine Est GFR (CKD-EPI)AfAm Est GFR (CKD-EPI)NonAf POC Glucometer 186 Random Glucose Lactic Acid Calcium Phosphorus Magnesium Total Bilirubin AST ALT Alkaline Phosphatase Creatine Kinase CK-MB (CK-2) Troponin I Total Protein Albumin Blood Type Antibody Screen Antibody Identification Antigen Identification 04/08/20 04/08/20 11:43 11:26 RBC 3.87 MCV 97.3 H MCHC 31.0 L RDW 21.6 H MPV 7.8 Neutrophils % 77.9 Lymphocytes % 14.9 Monocytes % 6.3 Eosinophils % 0.4 D Basophils % 0.5 POC Glucometer 186 - Medications Given in the ED: ED Medications Discontinued Medications Generic Name Dose Route Start Last Admin Trade Name Freq PRN Reason Stop Dose Admin Sodium Chloride 250 ml 04/08/20 11:14 04/08/20 12:15 Normal Saline - IV 04/08/20 11:15 250 ml ONCE ONE Administration Medical Decision Making - Medical Decision Making Paged nephrology Discussed case with Dr. Evans who states the patient has a history hypotension at baseline, such that she receives midodrine on days that she has dialysis 80s-90s systolic BP is acceptable If the patient has a systolic in the 60s, she can be bolus'ed with 250cc's Also to monitor for changes in mental status 04/08/20 21:33 Discharge - Discharge Information Problems reviewed: Yes Clinical Impression/Diagnosis: Neck pain on left side Altered mental status Qualifiers: Altered mental status type: transient alteration of awareness Qualified Code(s): R40.4 - Transient alteration of awareness Headache Qualifiers: Headache type: unspecified Headache chronicity pattern: acute headache Intractability: not intractable Qualified Code(s): R51 - Headache Condition: Guarded - Follow up/Referral - Patient Discharge Instructions - Post Discharge Activity
[2020-04-08] MEDS ORDERED: GABAPENTIN 100 MG CAPSULE ONE ×2 (21:56→22:02)
[2020-04-08] MEDS ORDERED: ATORVASTATIN CA 40 MG TABLET (FP) ONE ×2 (21:56→22:02)
[2020-04-08] MEDS ORDERED: APIXABAN 5 MG TABLET ONE ×2 (21:56→22:01)
[2020-04-08] MEDS ORDERED: LIDOCAINE 5% TOPICAL PATCH ONE (21:56)
[2020-04-09] MEDS: APIXABAN 5 MG TABLET PO SCH ×3 (00:04→21:12)
[2020-04-09] MEDS: LIDOCAINE PATCH REMOVAL MC SCH ×2 (00:04→21:13)
[2020-04-09] MEDS: ATORVASTATIN CA 40 MG TABLET (FP) PO SCH ×2 (00:05→21:12)
[2020-04-09] MEDS: GABAPENTIN 100 MG CAPSULE PO SCH ×2 (00:05→21:12)
[2020-04-09] MEDS: INSULIN SLIDING SCALE (NOVOLOG) 1 VIAL SQ SCH ×4 (00:15→21:13)
[2020-04-09] MEDS: SODIUM CHLORIDE 1,000 ML IV SCH (00:30)
[2020-04-09] MEDS ORDERED: LEVOTHYROXINE NA 25 MCG TABLET (FP) ONE (05:56)
[2020-04-09] MEDS ORDERED: LEVOTHYROXINE NA 112 MCG TABLET (FP) ONE (05:56)
[2020-04-09] MEDS: LEVOTHYROXINE 25 MCG, LEVOTHYROXINE 112 MCG PO SCH (06:36)
[2020-04-09] MEDS: INSULIN (NOVOLOG MIX 70/30) 100 UNITS/ML MDV SQ SCH (06:36)
[2020-04-09] MEDS ORDERED: LEVOTHYROXINE NA 125 MCG TABLET (FP) PO SCH (07:00)
[2020-04-09 07:19] LABS: BASO % 0.7 % (0-2.0); EOS % 0.8 % (0-4.5); HEMATOCRIT 32.3 % (32.4-45.2); HEMOGLOBIN 9.7 GM/dL (10.7-15.3); MCH 29.2 pg (25.7-33.7); MCHC 29.9 g/dl (32.0-36.0); MEAN CELL VOLUME 97.9 fl (80-96); MEAN PLT VOLUME 7.3 fl (7.5-11.1); MONO % 6.7 % (3.8-10.2); NEUT % 80.8 % (42.8-82.8); PLATELET COUNT 373 K/MM3 (134-434); RDW 20.8 % (11.6-15.6)
[2020-04-09 07:44] LABS: ALBUMIN 2.1 g/dl (3.4-5.0); BILIRUBIN,TOTAL 0.4 mg/dL (0.2-1); BLOOD UREA NITROGEN 29.8 mg/dL (7-18); CALCIUM 7.5 mg/dL (8.5-10.1); CREATININE 4.1 mg/dL (0.55-1.3); POTASSIUM 3.9 mmol/L (3.5-5.1); TOT PROT 5.9 g/dl (6.4-8.2)
--- NOTE | 2020-04-09 09:12 | PN ---
Progress Note, Physician Chief Complaint: Patient seen and examined at the bedside, no acute events from last night, afebrile. History of Present Illness: This 74 yr old w/f with PMH of ESRD on HD, CAD, CHF, PVD, s/p multiple amputations, DM, AICD, atrial fibrillation, COPD, MRSA, s/p rotator cuff repair, hypothyroidism, HTN, anemia, GERD admitted via ER with an acute pain of the left side of the neck radiating toward left temporal region of the head, generalized muscle weakness, dizziness, and orthostatic hypotension. - Current Medication List Current Medications: Active Medications Acetaminophen (Tylenol -) 650 mg PO Q4H PRN PRN Reason: PAIN 4-6 Albuterol/Ipratropium (Duoneb -) 1 amp NEB RQID PRN PRN Reason: ASTHMA Apixaban (Eliquis -) 5 mg PO BID [facility] Last Admin: 04/09/20 00:04 Dose: Not Given Documented by: Aspirin (Ecotrin -) 81 mg PO DAILY [facility] Atorvastatin Calcium (Lipitor -) 40 mg PO [facility] Last Admin: 04/09/20 00:05 Dose: Not Given Documented by: Bisacodyl (Dulcolax Suppository -) 10 mg CO PRN PRN PRN Reason: CONSTIPATION Docusate Sodium (Colace -) 100 mg PO BID PRN PRN Reason: CONSTIPATION Folic Acid (Folic Acid -) 1 mg PO DAILY [facility] Last Admin: 04/08/20 16:36 Dose: 1 mg Documented by: Gabapentin (Neurontin -) 100 mg PO [facility] Last Admin: 04/09/20 00:05 Dose: Not Given Documented by: Sodium Chloride (Normal Saline -) 1,000 mls @ 42 mls/hr IV ASDIR [facility] Stop: 04/09/20 16:29 Last Admin: 04/09/20 00:30 Dose: 42 mls/hr Documented by: Sodium Chloride (Normal Saline -) 250 mls @ 3,000 mls/hr IV PRN PRN PRN Reason: Hypotension during Dialysis Stop: 04/09/20 16:19 Insulin Aspart (Novolog Vial Sliding Scale -) [facility] Last Admin: 04/09/20 06:37 Dose: 2 units Documented by: Insulin Aspart (Novolog Mix 70/30 Vial) [facility] Last Admin: 04/09/20 06:36 Dose: 17 units Documented by: Isosorbide Mononitrate (Ismo -) 20 mg PO BIDISMO [facility] Last Admin: 04/08/20 16:36 Dose: 20 mg Documented by: Lactulose (Cephulac (Oral Use)) 20 gm PO DAILY [facility] Last Admin: 04/08/20 17:17 Dose: 20 gm Documented by: Levothyroxine Sodium 25 mcg/ (Levothyroxine Sodium 112 mcg) 137 mcg PO DAILY@0700 [facility] Last Admin: 04/09/20 06:36 Dose: 137 mcg Documented by: Lidocaine (Lidoderm Patch -) 1 patch TP DAILY [facility] Melatonin (Melatonin) 5 mg PO HS PRN PRN Reason: INSOMNIA Metoprolol Succinate (Toprol Xl -) 12.5 mg PO DAILY [facility] Miscellaneous (Lidoderm Patch Removal) 1 each MC DAILY@2200 [facility] Last Admin: 04/09/20 00:04 Dose: Not Given Documented by: Polyethylene Glycol (Miralax (For Daily Use) -) 17 gm PO DAILY [facility] Senna (Senna -) 2 tab PO HS PRN PRN Reason: CONSTIPATION Sevelamer Carbonate (Renvela Powder Packet -) 0.8 gm PO TIDCM [facility] Last Admin: 04/08/20 17:17 Dose: 0.8 gm Documented by: - Objective Vital Signs: Vital Signs Temperature 97.8 F 04/09/20 06:00 Pulse Rate 81 04/09/20 06:00 Respiratory Rate 20 04/09/20 06:00 Blood Pressure 111/77 04/09/20 06:00 O2 Sat by Pulse Oximetry (%) 96 04/09/20 00:00 Constitutional: Yes: Well Nourished, Calm, Mild Distress Eyes: Yes: Conjunctiva Clear, EOM Intact, Cataracts HENT: Yes: Atraumatic, Normocephalic Neck: Yes: Supple, Trachea Midline Cardiovascular: Yes: Regular Rate and Rhythm Respiratory: Yes: Regular, CTA Bilaterally Gastrointestinal: Yes: Normal Bowel Sounds, Soft ...Rectal Exam: Yes: Deferred Genitourinary: Yes: Anuria Breast(s): Yes: WNL Musculoskeletal: Yes: Muscle Weakness Extremities: Yes: Other (s/p multiple amputations) Edema: No Peripheral Pulses WNL: No Integumentary: Yes: Other (open wound of the LLE stump) Neurological: Yes: Alert, Oriented, Weakness ...Motor Strength: LUE (generalized muscle weakness of all extremities) Psychiatric: Yes: Alert, Oriented Labs: CBC, BMP 04/09/20 06:46 04/09/20 06:46 INR, PTT INR 1.72 (0.83-1.09) H 04/08/20 11:43 - ....Imaging Other: Report Reviewed (lab data reviewed) Problem List - Problems (1) Headache Code(s): R51 - HEADACHE Qualifiers: Headache type: unspecified Headache chronicity pattern: acute headache I ntractability: not intractable Qualified Code(s): R51 - Headache (2) Anemia in ESRD (end-stage renal disease) Code(s): N18.6 - END STAGE RENAL DISEASE; D63.1 - ANEMIA IN CHRONIC KIDNEY DISEASE (3) Atrial fibrillation Code(s): I48.91 - UNSPECIFIED ATRIAL FIBRILLATION Qualifiers: (4) Constipation Code(s): K59.00 - CONSTIPATION, UNSPECIFIED (5) DM type 2 causing complication Code(s): E11.8 - TYPE 2 DIABETES MELLITUS WITH UNSPECIFIED COMPLICATIONS (6) Depression Code(s): F32.9 - MAJOR DEPRESSIVE DISORDER, SINGLE EPISODE, UNSPECIFIED (7) Diabetes Code(s): E11.9 - TYPE 2 DIABETES MELLITUS WITHOUT COMPLICATIONS Qualifiers: (8) Dizziness Code(s): R42 - DIZZINESS AND GIDDINESS (9) ESRD (end stage renal disease) on dialysis Code(s): N18.6 - END STAGE RENAL DISEASE; Z99.2 - DEPENDENCE ON RENAL DIALYSIS (10) ESRD on hemodialysis Code(s): N18.6 - END STAGE RENAL DISEASE; Z99.2 - DEPENDENCE ON RENAL DIALYSIS (11) Foot amputation status Code(s): Z89.439 - ACQUIRED ABSENCE OF UNSPECIFIED FOOT (12) HTN (hypertension) Code(s): I10 - ESSENTIAL (PRIMARY) HYPERTENSION Qualifiers: Hypertension type: essential hypertension Qualified Code(s): I10 - Essential (primary) hypertension (13) History of ESBL Klebsiella pneumoniae infection Code(s): Z86.19 - PERSONAL HISTORY OF OTHER INFECTIOUS AND PARASITIC DISEASES (14) History of percutaneous coronary intervention Code(s): Z98.890 - OTHER SPECIFIED POSTPROCEDURAL STATES (15) Hypercholesterolemia Code(s): E78.00 - PURE HYPERCHOLESTEROLEMIA, UNSPECIFIED (16) Hypothyroidism Code(s): E03.9 - HYPOTHYROIDISM, UNSPECIFIED Qualifiers: (17) Leg wound, left Code(s): S81.802A - UNSPECIFIED OPEN WOUND, LEFT LOWER LEG, INITIAL ENCOUNTER (18) Peripheral vascular disease due to secondary diabetes Code(s): E13.51 - OTH DIABETES W DIABETIC PERIPHERAL ANGIOPATHY W/O GANGRENE (19) S/P transmetatarsal amputation of foot Code(s): Z89.439 - ACQUIRED ABSENCE OF UNSPECIFIED FOOT Qualifiers: Laterality: left Qualified Code(s): Z89.432 - Acquired absence of left foot (20) Severe major depression Code(s): F32.2 - MAJOR DEPRESSV DISORD, SINGLE EPSD, SEV W/O PSYCH FEATURES (21) Status post transmetatarsal amputation of left foot Code(s): Z89.432 - ACQUIRED ABSENCE OF LEFT FOOT (22) Unilateral AKA Code(s): Z89.619 - ACQUIRED ABSENCE OF UNSPECIFIED LEG ABOVE KNEE (23) Musculoskeletal neck pain Code(s): M54.2 - CERVICALGIA Assessment/Plan Assessment/plan: acute pain of the left side of the neck radiating toward left temporal region, lactic acidosis, hyponatremia, hypoproteinemia, hypoalbuminemia, acute generalized muscle weakness, acute orthostatic hypotension, acute dizziness, ESRD on HD, CAD, CHF, PVD, open wound of the stump of LLE, s/p multiple amputations, R AKA, left TMA, IDDM, AICD, atrial fibr illation on Eliquis, COPD, MRSA, right rotator cuff repair, hypothyroidism, steal syndrome, HLD, HTN, anemia, GERD, ct scan of the head showed no acute cva, cta of the head and neck showed diffuse calcifications but no overt stenosis in any of the large vessels; IV fluids gentle hydration, renal diet as tolerated, wound care, a/c with Eliquis and aspirin, atrovastatin for hld, metoprolol, isosorbide for CAD, gabapentin, lactulose, sevelamer, docusate senna and Miralax for constipation, sliding scale regular insulin coverage, Novolog 70/30 mix, levothyroxine, melatonin for insomnia.
[2020-04-09] MEDS ORDERED: PT OWN MED DRAWER 7, Y5N ONE ×3 (09:20→21:07)
[2020-04-09] MEDS ORDERED: metoPROLOL SUCCINATE 25 MG TAB.SR.24H (FP) PO SCH (10:00)
[2020-04-09] MEDS: SEVELAMER CARBONATE 0.8 GM POWDER PACKET PO SCH ×3 (10:02→21:13)
[2020-04-09] MEDS: LACTULOSE 20 GM/30 ML UDC (FOR ORAL USE ONLY) PO SCH (10:02)
[2020-04-09] MEDS: FOLIC ACID 1 MG TABLET (FP) PO SCH (10:03)
[2020-04-09] MEDS: LIDOCAINE 5% TOPICAL PATCH TP SCH (10:03)
[2020-04-09] MEDS: POLYETHYLENE GLYCOL 3350 119 GM BTL PO SCH (10:03)
[2020-04-09] MEDS: ISOSORBIDE MONONITRATE 20 MG TABLET PO SCH ×2 (10:03→21:12)
[2020-04-09] MEDS: ASPIRIN COATED 81 MG TABLET.EC PO SCH (10:03)
[2020-04-09] MEDS ORDERED: SIMETHICONE 80 MG TAB.CHEW (FP) PO PRN (15:52)
--- NOTE | 2020-04-09 15:55 | PN ---
Progress Note, Physician Chief Complaint: Neck pain/headache History of Present Illness: Seen and examined at the bedside awake and alert no headache today no sob, cp, fever, or chills BP is marginal for dialysis today - Current Medication List Current Medications: Active Medications Acetaminophen (Tylenol -) 650 mg PO Q4H PRN PRN Reason: PAIN 4-6 Albuterol/Ipratropium (Duoneb -) 1 amp NEB RQID PRN PRN Reason: ASTHMA Apixaban (Eliquis -) 5 mg PO BID [facility] Last Admin: 04/09/20 10:03 Dose: Not Given Documented by: Aspirin (Ecotrin -) 81 mg PO DAILY [facility] Last Admin: 04/09/20 10:03 Dose: Not Given Documented by: Atorvastatin Calcium (Lipitor -) 40 mg PO HS [facility] Last Admin: 04/09/20 00:05 Dose: Not Given Documented by: Bisacodyl (Dulcolax Suppository -) 10 mg [place] PRN PRN PRN Reason: CONSTIPATION Docusate Sodium (Colace -) 100 mg PO BID PRN PRN Reason: CONSTIPATION Folic Acid (Folic Acid -) 1 mg PO DAILY [facility] Last Admin: 04/09/20 10:03 Dose: 1 mg Documented by: Gabapentin (Neurontin -) 100 mg PO HS [facility] Last Admin: 04/09/20 00:05 Dose: Not Given Documented by: Sodium Chloride (Normal Saline -) 1,000 mls @ 42 mls/hr IV ASDIR [facility] Stop: 04/09/20 16:29 Last Admin: 04/09/20 00:30 Dose: 42 mls/hr Documented by: Sodium Chloride (Normal Saline -) 250 mls @ 3,000 mls/hr IV PRN PRN PRN Reason: Hypotension during Dialysis Stop: 04/09/20 16:19 Insulin Aspart (Novolog Vial Sliding Scale -) 1 vial SQ ACHS [facility]; Protocol Last Admin: 04/09/20 11:59 Dose: 2 units Documented by: Insulin Aspart (Novolog Mix 70/30 Vial) 17 units SQ BIDAC [facility] Last Admin: 04/09/20 06:36 Dose: 17 units Documented by: Isosorbide Mononitrate (Ismo -) 20 mg PO BIDISMO [facility] Last Admin: 04/09/20 10:03 Dose: 20 mg Documented by: Lactulose (Cephulac (Oral Use)) 20 gm PO DAILY [facility] Last Admin: 04/09/20 10:02 Dose: 20 gm Documented by: Levothyroxine Sodium 25 mcg/ (Levothyroxine Sodium 112 mcg) 137 mcg PO DAILY@0700 [facility] Last Admin: 04/09/20 06:36 Dose: 137 mcg Documented by: Lidocaine (Lidoderm Patch -) 1 patch TP DAILY [facility] Last Admin: 04/09/20 10:03 Dose: Not Given Documented by: Melatonin (Melatonin) 5 mg PO HS PRN PRN Reason: INSOMNIA Miscellaneous (Lidoderm Patch Removal) 1 each MC DAILY@2200 [facility] Last Admin: 04/09/20 00:04 Dose: Not Given Documented by: Polyethylene Glycol (Miralax (For Daily Use) -) 17 gm PO DAILY [facility] Last Admin: 04/09/20 10:03 Dose: 17 gm Documented by: Senna (Senna -) 2 tab PO HS PRN PRN Reason: CONSTIPATION Sevelamer Carbonate (Renvela Powder Packet -) 0.8 gm PO TIDCM [facility] Last Admin: 04/09/20 12:24 Dose: 0.8 gm Documented by: Simethicone (Mylicon -) 80 mg PO Q4H PRN PRN Reason: GAS - Objective Vital Signs: Vital Signs Temperature 98.3 F 04/09/20 13:35 Pulse Rate 87 04/09/20 13:35 Respiratory Rate 18 04/09/20 13:35 Blood Pressure 106/43 L 04/09/20 13:35 O2 Sat by Pulse Oximetry (%) 98 04/09/20 11:00 Constitutional: Yes: No Distress, Calm HENT: Yes: Atraumatic Neck: Yes: Supple Cardiovascular: Yes: Regular Rate and Rhythm Respiratory: Yes: Regular, CTA Bilaterally. No: SOB Gastrointestinal: Yes: Soft. No: Tenderness Extremities: Yes: Amputation. No: Cyanosis Edema: No Neurological: Yes: Alert, Oriented Labs: CBC, BMP 04/09/20 06:46 04/09/20 06:46 INR, PTT INR 1.72 (0.83-1.09) H 04/08/20 11:43 Assessment/Plan 74 year old woman with history of ESRD on HD (MWF) CAD, CHF, PVD s/p multiple amputations, DM, AICD who presented from home with complaints of left sided headache and neck pain. 1. Headache/Neck pain r/o CVA vs. vertebral artery dissection 2. Lactic acidosis 3. ESRD on HD 4. CAD/CHF 5. PVD 6. DM CT of the head showed no acute CVA CTA of head and neck showed diffuse calcifications but no overt stenosis seen in any of the large vessels Neurology follow up Pain control as needed for HD today with UF as tolerated can give gentle IVF hydration given lactic acidosis, d/c fluids once LA resolves Check cultures Renal diet as tolerated Thank you Wan Cruz DO
[2020-04-09 17:04] LABS: HEMATOCRIT 30.9 % (32.4-45.2); HEMOGLOBIN 9.3 GM/dL (10.7-15.3); MCH 29.7 pg (25.7-33.7); MCHC 30.2 g/dl (32.0-36.0); MEAN CELL VOLUME 98.4 fl (80-96); MEAN PLT VOLUME 7.5 fl (7.5-11.1); PLATELET COUNT 374 K/MM3 (134-434); RBC 3.14 M/mm3 (3.60-5.2); RDW 20.9 % (11.6-15.6); WHITE BLOOD COUNT 11.7 K/mm3 (4.0-10.0)
[2020-04-09 17:22] LABS: BLOOD UREA NITROGEN 31.9 mg/dL (7-18); CALCIUM 7.8 mg/dL (8.5-10.1); CREATININE 4.4 mg/dL (0.55-1.3); PHOSPHOROUS 3.1 mg/dL (2.5-4.9); POTASSIUM 4.1 mmol/L (3.5-5.1)
[2020-04-10] MEDS ORDERED: LEVOTHYROXINE NA 112 MCG TABLET (FP) ONE (06:04)
[2020-04-10] MEDS ORDERED: LEVOTHYROXINE NA 25 MCG TABLET (FP) ONE (06:04)
[2020-04-10] MEDS: LEVOTHYROXINE 25 MCG, LEVOTHYROXINE 112 MCG PO SCH (06:36)
[2020-04-10] MEDS: INSULIN SLIDING SCALE (NOVOLOG) 1 VIAL SQ SCH ×5 (06:36→21:56)
[2020-04-10] MEDS: INSULIN (NOVOLOG MIX 70/30) 100 UNITS/ML MDV SQ SCH ×3 (06:37→16:49)
[2020-04-10] MEDS: SEVELAMER CARBONATE 0.8 GM POWDER PACKET PO SCH ×2 (07:34→10:41)
[2020-04-10] MEDS ORDERED: PT OWN MED DRAWER 7, Y5N ONE ×3 (07:53→16:33)
[2020-04-10 08:27] LABS: BASO % 0.6 % (0-2.0); EOS % 0.6 % (0-4.5); HEMATOCRIT 31.5 % (32.4-45.2); HEMOGLOBIN 9.6 GM/dL (10.7-15.3); LYMPH % 15.3 % (8-40); MCH 29.4 pg (25.7-33.7); MCHC 30.6 g/dl (32.0-36.0); MEAN CELL VOLUME 96.2 fl (80-96); MEAN PLT VOLUME 7.6 fl (7.5-11.1); MONO % 6.2 % (3.8-10.2); NEUT % 77.3 % (42.8-82.8); PLATELET COUNT 353 K/MM3 (134-434); RBC 3.27 M/mm3 (3.60-5.2); RDW 21.2 % (11.6-15.6); WHITE BLOOD COUNT 9.6 K/mm3 (4.0-10.0)
[2020-04-10 08:54] LABS: ALBUMIN 1.9 g/dl (3.4-5.0); BILIRUBIN,TOTAL 0.6 mg/dL (0.2-1); BLOOD UREA NITROGEN 11.4 mg/dL (7-18); CALCIUM 7.7 mg/dL (8.5-10.1); CREATININE 2.7 mg/dL (0.55-1.3); MAGNESIUM 2.6 mg/dL (1.8-2.4); PHOSPHOROUS 1.6 mg/dL (2.5-4.9); POTASSIUM 3.5 mmol/L (3.5-5.1); TOT PROT 5.7 g/dl (6.4-8.2)
--- NOTE | 2020-04-10 08:59 | PN ---
Progress Note, Physician Chief Complaint: Patient seen and examined at the bedside, no acute events from last night, afebrile, hypotensive. History of Present Illness: This 74 yr old w/f with PMH of ESRD on HD, CAD, CHF, PVD, IDDM, AICD, MRSA, COPD, s/p multiple amputations of all extremities, right rotator cuff repair, hypothyroidism, steal syndrome, HLD, HTN, anemia, GERD, R AKA, L TMA admitted via ER with acute pain of the left side of the neck radiating toward left temporal region. - Current Medication List Current Medications: Active Medications Acetaminophen (Tylenol -) 650 mg PO Q4H PRN PRN Reason: PAIN 4-6 Albuterol/Ipratropium (Duoneb -) 1 amp NEB RQID PRN PRN Reason: ASTHMA Apixaban (Eliquis -) 5 mg PO BID [facility] Last Admin: 04/09/20 21:12 Dose: 5 mg Documented by: Aspirin (Ecotrin -) 81 mg PO DAILY [facility] Last Admin: 04/09/20 10:03 Dose: Not Given Documented by: Atorvastatin Calcium (Lipitor -) 40 mg PO [facility] Last Admin: 04/09/20 21:12 Dose: 40 mg Documented by: Bisacodyl (Dulcolax Suppository -) 10 mg SC PRN PRN PRN Reason: CONSTIPATION Docusate Sodium (Colace -) 100 mg PO BID PRN PRN Reason: CONSTIPATION Folic Acid (Folic Acid -) 1 mg PO DAILY [facility] Last Admin: 04/09/20 10:03 Dose: 1 mg Documented by: Gabapentin (Neurontin -) 100 mg PO [facility] Last Admin: 04/09/20 21:12 Dose: 100 mg Documented by: Sodium Chloride (Normal Saline -) 250 mls @ 3,000 mls/hr IV PRN PRN PRN Reason: Hypotension during Dialysis Stop: 04/09/20 16:19 Insulin Aspart (Novolog Vial Sliding Scale -) 1 vial SQ ACHS [facility]; Protocol Last Admin: 04/10/20 06:36 Dose: 2 units Documented by: Insulin Aspart (Novolog Mix 70/30 Vial) 17 units SQ BIDAC [facility] Last Admin: 04/10/20 06:37 Dose: 17 units Documented by: Isosorbide Mononitrate (Ismo -) 20 mg PO BIDISMO [facility] Last Admin: 04/09/20 21:12 Dose: 20 mg Documented by: Lactulose (Cephulac (Oral Use)) 20 gm PO DAILY [facility] Last Admin: 04/09/20 10:02 Dose: 20 gm Documented by: Levothyroxine Sodium 25 mcg/ (Levothyroxine Sodium 112 mcg) 137 mcg PO DAILY@0700 [facility] Last Admin: 04/10/20 06:36 Dose: 137 mcg Documented by: Lidocaine (Lidoderm Patch -) 1 patch TP DAILY [facility] Last Admin: 04/09/20 10:03 Dose: Not Given Documented by: Melatonin (Melatonin) 5 mg PO HS PRN PRN Reason: INSOMNIA Miscellaneous (Lidoderm Patch Removal) 1 each MC DAILY@2200 [facility] Last Admin: 04/09/20 21:13 Dose: Not Given Documented by: Polyethylene Glycol (Miralax (For Daily Use) -) 17 gm PO DAILY [facility] Last Admin: 04/09/20 10:03 Dose: 17 gm Documented by: Senna (Senna -) 2 tab PO HS PRN PRN Reason: CONSTIPATION Sevelamer Carbonate (Renvela Powder Packet -) 0.8 gm PO TIDCM [facility] Last Admin: 04/09/20 21:13 Dose: Not Given Documented by: Simethicone (Mylicon -) 80 mg PO Q4H PRN PRN Reason: GAS - Objective Vital Signs: Vital Signs Temperature 98.2 F 04/10/20 08:34 Pulse Rate 64 04/10/20 08:34 Respiratory Rate 16 04/10/20 08:34 Blood Pressure 90/62 04/10/20 08:34 O2 Sat by Pulse Oximetry (%) 99 04/10/20 08:34 Constitutional: Yes: Well Nourished, Calm, Mild Distress (pain of the left lower extremity) Eyes: Yes: Conjunctiva Clear, EOM Intact HENT: Yes: Atraumatic, Normocephalic Neck: Yes: Supple, Trachea Midline Cardiovascular: Yes: Regular Rate and Rhythm Respiratory: Yes: Regular, CTA Bilaterally Gastrointestinal: Yes: Normal Bowel Sounds, Soft, Abdomen, Obese ...Rectal Exam: Yes: Deferred Genitourinary: Yes: Anuria Breast(s): Yes: WNL Musculoskeletal: Yes: Muscle Weakness Extremities: Yes: Other (s/p multiple amputations of all extremities) Edema: No Peripheral Pulses WNL: No Integumentary: Yes: Pressure Ulcer (open wound of the stump of the LLE) Neurological: Yes: Alert, Weakness ...Motor Strength: LUE (generalized muscle weakness of all extremities) Psychiatric: Yes: Alert, Oriented Labs: CBC, BMP 04/10/20 07:35 INR, PTT INR 1.72 (0.83-1.09) H 04/08/20 11:43 - ....Imaging Other: Report Reviewed (lab data reviewed) Problem List - Problems (1) Headache Code(s): R51 - HEADACHE Qualifiers: Headache type: unspecified Headache chronicity pattern: acute headache Intractability: not intractable Qualified Code(s): R51 - Headache (2) Anemia in ESRD (end-stage renal disease) Code(s): N18.6 - END STAGE RENAL DISEASE; D63.1 - ANEMIA IN CHRONIC KIDNEY DISEASE (3) Atrial fibrillation Code(s): I48.91 - UNSPECIFIED ATRIAL FIBRILLATION Qualifiers: (4) Constipation Code(s): K59.00 - CONSTIPATION, UNSPECIFIED (5) DM type 2 causing complication Code(s): E11.8 - TYPE 2 DIABETES MELLITUS WITH UNSPECIFIED COMPLICATIONS (6) Depression Code(s): F32.9 - MAJOR DEPRESSIVE DISORDER, SINGLE EPISODE, UNSPECIFIED (7) Diabetes Code(s): E11.9 - TYPE 2 DIABETES MELLITUS WITHOUT COMPLICATIONS Qualifiers: (8) Dizziness Code(s): R42 - DIZZINESS AND GIDDINESS (9) ESRD (end stage renal disease) on dialysis Code(s): N18.6 - END STAGE RENAL DISEASE; Z99.2 - DEPENDENCE ON RENAL DIALYSIS (10) ESRD on hemodialysis Code(s): N18.6 - END STAGE RENAL DISEASE; Z99.2 - DEPENDENCE ON RENAL DIALYSIS (11) Foot amputation status Code(s): Z89.439 - ACQUIRED ABSENCE OF UNSPECIFIED FOOT (12) HTN (hypertension) Code(s): I10 - ESSENTIAL (PRIMARY) HYPERTENSION Qualifiers: Hypertension type: essential hypertension Qualified Code(s): I10 - Essential (primary) hypertension (13) History of ESBL Klebsiella pneumoniae infection Code(s): Z86.19 - PERSONAL HISTORY OF OTHER INFECTIOUS AND PARASITIC DISEASES (14) History of percutaneous coronary intervention Code(s): Z98.890 - OTHER SPECIFIED POSTPROCEDURAL STATES (15) Hypercholesterolemia Code(s): E78.00 - PURE HYPERCHOLESTEROLEMIA, UNSPECIFIED (16) Hypothyroidism Code(s): E03.9 - HYPOTHYROIDISM, UNSPECIFIED Qualifiers: (17) Leg wound, left Code(s): S81.802A - UNSPECIFIED OPEN WOUND, LEFT LOWER LEG, INITIAL ENCOUNTER (18) Peripheral vascular disease due to secondary diabetes Code(s): E13.51 - OTH DIABETES W DIABETIC PERIPHERAL ANGIOPATHY W/O GANGRENE (19) S/P transmetatarsal amputation of foot Code(s): Z89.439 - ACQUIRED ABSENCE OF UNSPECIFIED FOOT Qualifiers: Laterality: left Qualified Code(s): Z89.432 - Acquired absence of left foot (20) Severe major depression Code(s): F32.2 - MAJOR DEPRESSV DISORD, SINGLE EPSD, SEV W/O PSYCH FEATURES (21) Status post transmetatarsal amputation of left foot Code(s): Z89.432 - ACQUIRED ABSENCE OF LEFT FOOT (22) Unilateral AKA Code(s): Z89.619 - ACQUIRED ABSENCE OF UNSPECIFIED LEG ABOVE KNEE (23) Musculoskeletal neck pain Code(s): M54.2 - CERVICALGIA Assessment/Plan Assessment/plan: acute pain of the left side of the neck radiating to the left temporal region markedly subsided, HD tomorrow, ct of the head showed no acute cva, cta of the head and neck showed diffuse calcifications but no overt stenosis in any of the large vessels, ESRD on HD, CAD, CHF, PVD, IDDM, AICD, COPD, MRSA, HLD, HTN, GERD, anemia, s/p multiple amputations, atrial fibrillation, hypothyroidism, open wound of the stump of LLE, steal syndrome, right rotator cuff repair, hypophosphatemia, hypermagnesemia, hypoproteinemia, hypoalbuminemia, hypocalcemia; IV fluids, sliding scale regular insulin coverage, Novolog 70/30 mix, physical therapy, DVT/GI prophylaxis, atorvastatin for HLD, isosorbide for CAD, gabapentin, tylenol, lactulose and sevelamer, senna bisacodyl and miralax for constipation, melatonin for insomnia, levothyroxine for hypthyroidism, xanax for anxiety.
[2020-04-10] MEDS: FOLIC ACID 1 MG TABLET (FP) PO SCH (10:02)
[2020-04-10] MEDS: ISOSORBIDE MONONITRATE 20 MG TABLET PO SCH ×2 (10:02→16:49)
[2020-04-10] MEDS: ASPIRIN COATED 81 MG TABLET.EC PO SCH (10:02)
[2020-04-10] MEDS: APIXABAN 5 MG TABLET PO SCH ×2 (10:02→21:58)
[2020-04-10] MEDS: LACTULOSE 20 GM/30 ML UDC (FOR ORAL USE ONLY) PO SCH (10:02)
[2020-04-10] MEDS: POLYETHYLENE GLYCOL 3350 119 GM BTL PO SCH (10:03)
[2020-04-10] MEDS: LIDOCAINE 5% TOPICAL PATCH TP SCH (10:03)
[2020-04-10] MEDS: ACETAMINOPHEN 325 MG TABLET (FP) PO PRN ×2 (10:05→18:41)
[2020-04-10] MEDS: ALPRAZolam 0.25 MG TABLET PO PRN ×2 (10:08→21:57)
[2020-04-10] MEDS: SEVELAMER CARBONATE 800 MG TAB (FP) PO SCH (11:51)
[2020-04-10] MEDS ORDERED: SEVELAMER CARBONATE 800 MG TAB (FP) PO SCH (12:00)
[2020-04-10] MEDS ORDERED: SODIUM CHLORIDE 250 ML IV PRN ×2 (13:05→13:06)
--- NOTE | 2020-04-10 13:05 | PN ---
Progress Note, Physician Chief Complaint: Neck pain/headache History of Present Illness: Seen and examined at the bedside awake and alert no headache or vision changes no sob, cp, fever, or chills BP is marginal s/p dialysis yesterday - Current Medication List Current Medications: Active Medications Acetaminophen (Tylenol -) 650 mg PO Q4H PRN PRN Reason: PAIN 4-6 Last Admin: 04/10/20 10:05 Dose: 650 mg Documented by: Albuterol/Ipratropium (Duoneb -) 1 amp NEB RQID PRN PRN Reason: ASTHMA Alprazolam (Xanax -) 0.25 mg PO Q12H PRN PRN Reason: ANXIETY Last Admin: 04/10/20 10:08 Dose: 0.25 mg Documented by: Apixaban (Eliquis -) 5 mg PO BID [facility] Last Admin: 04/10/20 10:02 Dose: 5 mg Documented by: Aspirin (Ecotrin -) 81 mg PO DAILY [facility] Last Admin: 04/10/20 10:02 Dose: 81 mg Documented by: Atorvastatin Calcium (Lipitor -) 40 mg PO [facility] Last Admin: 04/09/20 21:12 Dose: 40 mg Documented by: Bisacodyl (Dulcolax Suppository -) 10 mg SD PRN PRN PRN Reason: CONSTIPATION Docusate Sodium (Colace -) 100 mg PO BID PRN PRN Reason: CONSTIPATION Folic Acid (Folic Acid -) 1 mg PO DAILY [facility] Last Admin: 04/10/20 10:02 Dose: 1 mg Documented by: Gabapentin (Neurontin -) 100 mg PO [facility] Last Admin: 04/09/20 21:12 Dose: 100 mg Documented by: Sodium Chloride (Normal Saline -) 250 mls @ 3,000 mls/hr IV PRN PRN PRN Reason: Hypotension during Dialysis Stop: 04/09/20 16:19 Insulin Aspart (Novolog Vial Sliding Scale -) 1 vial SQ ACHS [facility]; Protocol Last Admin: 04/10/20 11:30 Dose: Not Given Documented by: Insulin Aspart (Novolog Mix 70/30 Vial) 17 units SQ BIDAC [facility] Last Admin: 04/10/20 06:37 Dose: 17 units Documented by: Isosorbide Mononitrate (Ismo -) 20 mg PO BIDISMO [facility] Last Admin: 04/10/20 10:02 Dose: 20 mg Documented by: Lactulose (Cephulac (Oral Use)) 20 gm PO DAILY [facility] Last Admin: 04/10/20 10:02 Dose: 20 gm Documented by: Levothyroxine Sodium 25 mcg/ (Levothyroxine Sodium 112 mcg) 137 mcg PO DAILY@0700 [facility] Last Admin: 04/10/20 06:36 Dose: 137 mcg Documented by: Lidocaine (Lidoderm Patch -) 1 patch TP DAILY [facility] Last Admin: 04/10/20 10:03 Dose: 1 patch Documented by: Melatonin (Melatonin) 5 mg PO HS PRN PRN Reason: INSOMNIA Miscellaneous (Lidoderm Patch Removal) 1 each MC DAILY@2200 [facility] Last Admin: 04/09/20 21:13 Dose: Not Given Documented by: Polyethylene Glycol (Miralax (For Daily Use) -) 17 gm PO DAILY [facility] Last Admin: 04/10/20 10:03 Dose: 17 gm Documented by: Senna (Senna -) 2 tab PO HS PRN PRN Reason: CONSTIPATION Sevelamer Carbonate (Renvela -) 800 mg PO TIDCM [facility] Last Admin: 04/10/20 11:51 Dose: 800 mg Documented by: Simethicone (Mylicon -) 80 mg PO Q4H PRN PRN Reason: GAS - Objective Vital Signs: Vital Signs Temperature 98.2 F 04/10/20 08:34 Pulse Rate 64 04/10/20 08:34 Respiratory Rate 16 04/10/20 08:34 Blood Pressure 90/62 04/10/20 08:34 O2 Sat by Pulse Oximetry (%) 99 04/10/20 08:34 Constitutional: Yes: No Distress HENT: Yes: Atraumatic, Tonsillar Exudate Cardiovascular: Yes: Pulse Irregular Respiratory: Yes: Regular, Diminished Gastrointestinal: Yes: Soft Extremities: Yes: Amputation Edema: No Labs: CBC, BMP 04/10/20 07:35 04/10/20 07:35 INR, PTT INR 1.72 (0.83-1.09) H 04/08/20 11:43 Assessment/Plan 74 year old woman with history of ESRD on HD (MWF) CAD, CHF, PVD s/p multiple amputations, DM, AICD who presented from home with complaints of left sided headache and neck pain. 1. Headache/Neck pain r/o CVA vs. vertebral artery dissection 2. Lactic acidosis 3. ESRD on HD 4. CAD/CHF 5. PVD 6. DM CT of the head showed no acute CVA CTA of head and neck showed diffuse calcifications but no overt stenosis seen in any of the large vessels Neurology follow up Pain control as needed no acute need for dialysis today, next planned treatment is tomorrow cultures w/o growth to date Renal diet as tolerated Thank you Wan Cruz DO
[2020-04-10] MEDS: ATORVASTATIN CA 40 MG TABLET (FP) PO SCH (21:58)
[2020-04-10] MEDS: GABAPENTIN 100 MG CAPSULE PO SCH (21:58)
[2020-04-10] MEDS: LIDOCAINE PATCH REMOVAL MC SCH (22:03)
--- NOTE | 2020-04-10 22:26 | CONSULT ---
Consult - text type - Consultation Consultation Note: NEUROLOGY CONSULTATION is greatly appreciated: Events reviewed, patient examined. She was in HD when I came to see her yesterday. This 74 yo RH woman is cared for at home by her daughter and son. Never smoked. Denies prior headaches. PMH of DM, HTN, Chol, hypothyroid, COPD and ASHD s/p CABG, Stents and defibrillator. ESRD on HD x 8 years, firs via left arm AVF now via Tehnkoff Catheter. 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 Maintained on: Albuterol; Aspirin 81; Atorvastatin 40; Gabapentin 100 HS; Insulin; L-thyroxine; Metoprolol; Zofran; Pantoprazole; Vancomycin 1 Gram (Pre-D Now admitted after sudden on set of left sided neck pain and headache (now resolved) and "increased confusion" (according to her children) with BP= 80/60 CT of head (reviewed): Mild diffuse atrophy and microvascular changes. CT Angio of neck and brain: Severe, diffuse, calcified atheromatous disease. Platelets= 453K REINA: No head trauma. No carotid bruits. Defibrillator, left subclavian HD catheter. Multiple amputations as described above and Buerger ds-like skin and nails. NEURO: Awake, alert, Ox [facility], March,. [place]. Minor errors on reversals. Recalls 2 of 3 @ 3 mins. Fluent speech. - Frontal release CN II-XII: normal Motor: Normal proximal strength. No left ankle movements. Areflexic Sensory: Feels vibration in proximal fingers and at the left knee. IMP: Mild B/L cerebral dysfunction Increased confusion likely due to hypotension/hypoperfusion Etiology of left sided headache uncertain. No evidence for arterial dissection. SUGGEST: Check homocysteine levels, B12, TSH, ESR, CRP Slowly increase gabapentin towards 300 mg q 8hrs for pain. Increase statin and antiplatelet Rx. Continue supportive care. Thank you very much, Weston Justcie MD
[2020-04-11] MEDS: INSULIN SLIDING SCALE (NOVOLOG) 1 VIAL SQ SCH ×2 (06:11→13:14)
[2020-04-11] MEDS ORDERED: LEVOTHYROXINE NA 25 MCG TABLET (FP) ONE (06:40)
[2020-04-11] MEDS ORDERED: LEVOTHYROXINE NA 112 MCG TABLET (FP) ONE (06:40)
[2020-04-11] MEDS: LEVOTHYROXINE 25 MCG, LEVOTHYROXINE 112 MCG PO SCH (06:45)
[2020-04-11] MEDS: ACETAMINOPHEN 325 MG TABLET (FP) PO PRN (07:03)
[2020-04-11 07:13] LABS: BASO % 0.7 % (0-2.0); EOS % 1.7 % (0-4.5); HEMATOCRIT 31.5 % (32.4-45.2); HEMOGLOBIN 9.8 GM/dL (10.7-15.3); LYMPH % 16.2 % (8-40); MCH 30.4 pg (25.7-33.7); MCHC 31.3 g/dl (32.0-36.0); MEAN PLT VOLUME 7.5 fl (7.5-11.1); NEUT % 74.4 % (42.8-82.8); PLATELET COUNT 359 K/MM3 (134-434); RBC 3.24 M/mm3 (3.60-5.2); RDW 20.6 % (11.6-15.6); WHITE BLOOD COUNT 10.4 K/mm3 (4.0-10.0)
[2020-04-11 07:49] LABS: ALBUMIN 1.9 g/dl (3.4-5.0); BLOOD UREA NITROGEN 22.4 mg/dL (7-18); CALCIUM 7.8 mg/dL (8.5-10.1); POTASSIUM 3.8 mmol/L (3.5-5.1)
[2020-04-11 08:01] LABS: BILIRUBIN,TOTAL 0.4 mg/dL (0.2-1); CREATININE 3.6 mg/dL (0.55-1.3); PHOSPHOROUS 2.5 mg/dL (2.5-4.9); TOT PROT 5.8 g/dl (6.4-8.2)
--- NOTE | 2020-04-11 08:44 | DS ---
Physical Examination Vital Signs: Vital Signs Temperature 97.6 F 04/11/20 05:49 Pulse Rate 54 L 04/11/20 05:49 Respiratory Rate 20 04/11/20 05:49 Blood Pressure 103/41 L 04/11/20 05:49 O2 Sat by Pulse Oximetry (%) 100 04/10/20 22:00 Constitutional: Yes: Well Nourished, No Distress, Calm Eyes: Yes: Conjunctiva Clear, EOM Intact HENT: Yes: Atraumatic, Normocephalic Neck: Yes: Supple, Trachea Midline Cardiovascular: Yes: Regular Rate and Rhythm Respiratory: Yes: Regular, CTA Bilaterally Gastrointestinal: Yes: Normal Bowel Sounds, Soft ...Rectal Exam: Yes: Deferred Renal/: Yes: Anuria Breast(s): Yes: WNL Musculoskeletal: Yes: Muscle Weakness Extremities: Yes: Other (s/p multiple amputations) Edema: No Peripheral Pulses WNL: Yes Integumentary: Yes: Other (open wound of the stump of LLE) Neurological: Yes: Alert, Oriented, Weakness ...Motor Strength: LUE (genralized muscle weakness of all extremities) Psychiatric: Yes: WNL Labs: CBC, BMP 04/11/20 06:36 04/11/20 06:36 Discharge Summary Problems reviewed: Yes Reason For Visit: END STAGE RENAL DISEASE ON HEMODIALYSIS [facility] Current Active Problems Altered mental status (Acute) Headache (Acute) Musculoskeletal neck pain (Acute) Condition: Guarded - Instructions Diet, Activity, Other Instructions: Continue present meds. Continue on Sevelamer 800mg po tid. Activity as tolerated. HD on Mon, Wed and Tue. Follow up with Dr. Lua within one week. Total time spent over 30 minutes. Referrals: Yehuda Lua [Primary Care Provider] - - Home Medications Comprehensive Discharge Medication List: Ambulatory Orders Acetaminophen [Tylenol] 650 mg PO Q4H PRN 01/15/18 Albuterol 2.5/Ipratropium 0.5 [Duoneb -] 1 neb IH QID PRN 01/15/18 Aspirin [Aspirin EC] 81 mg PO DAILY 01/15/18 Atorvastatin Ca [Lipitor] 20 mg PO HS 01/15/18 Bisacodyl Suppository [Dulcolax Suppository -] 10 mg RC DAILY PRN 01/15/18 Gabapentin [Neurontin -] 100 mg PO BID 01/15/18 Insulin Aspart [Novolog] 0 unit SQ TID PRN 01/15/18 Levothyroxine [Synthroid -] 175 mcg PO DAILY 01/15/18 Lidocaine 5% Patch [Lidoderm Patch -] 1 patch TP DAILY 01/15/18 Ondansetron HCl [Zofran] 4 mg PO Q8H PRN 01/15/18 Pantoprazole Sodium 40 mg PO DAILY 01/15/18 Polyethylene Glycol 3350 [Miralax (For Daily Use) -] 17 gm PO DAILY 01/15/18 Sennosides [Senna] 8.6 mg PO HS 01/15/18 Apixaban [Eliquis] 5 mg PO BID 04/10/20 Folic Acid 1 mg PO DAILY 04/10/20 Insulin (Novolog 70/30) [Novolog Mix 70/30 Vial] 15 units SQ BID 04/10/20 Isosorbide Mononitrate [Isosorbide Mononitrate ER] 30 mg PO DAILY 04/10/20 L.acidoph,Paracasei, B.lactis [Probiotic] 1 each PO DAILY 04/10/20
[2020-04-11] MEDS ORDERED: GABAPENTIN 100 MG CAPSULE PO SCH (08:46)
[2020-04-11 10:20] LABS: ERYTHROCYTE SEDIMENTATION RATE 109 mm/hr (0-30)
[2020-04-11] MEDS: LACTULOSE 20 GM/30 ML UDC (FOR ORAL USE ONLY) PO SCH (11:36)
[2020-04-11] MEDS: FOLIC ACID 1 MG TABLET (FP) PO SCH (11:36)
[2020-04-11] MEDS: APIXABAN 5 MG TABLET PO SCH (11:36)
[2020-04-11] MEDS: ASPIRIN COATED 81 MG TABLET.EC PO SCH (11:36)
[2020-04-11] MEDS: LIDOCAINE 5% TOPICAL PATCH TP SCH (11:37)
[2020-04-11] MEDS: ISOSORBIDE MONONITRATE 20 MG TABLET PO SCH (11:39)
[2020-04-11] MEDS ORDERED: PT OWN MED DRAWER 7, Y5N ONE (11:39)
[2020-04-11] MEDS: POLYETHYLENE GLYCOL 3350 119 GM BTL PO SCH (11:39)
[2020-04-11] MEDS: INSULIN (NOVOLOG MIX 70/30) 100 UNITS/ML MDV SQ SCH (11:44)
[2020-04-11] MEDS: SEVELAMER CARBONATE 800 MG TAB (FP) PO SCH (11:54)
--- NOTE | 2020-04-11 13:53 | PN ---
Progress Note (short form) - Note Progress Note: 1. Headache/Neck pain r/o CVA vs. vertebral artery dissection 2. Lactic acidosis 3. ESRD on HD 4. CAD/CHF 5. PVD 6. DM seen in dialysis- no c/o Active Medications Acetaminophen (Tylenol -) 650 mg PO Q4H PRN PRN Reason: PAIN 4-6 Last Admin: 04/11/20 07:03 Dose: 650 mg Documented by: Albumin Human (Albumin Human 25%) 12.5 gm IVPB Q30M [facility] Stop: 04/11/20 09:31 Albuterol/Ipratropium (Duoneb -) 1 amp NEB RQID PRN PRN Reason: ASTHMA Alprazolam (Xanax -) 0.25 mg PO Q12H PRN PRN Reason: ANXIETY Last Admin: 04/10/20 21:57 Dose: 0.25 mg Documented by: Apixaban (Eliquis -) 5 mg PO BID [facility] Last Admin: 04/11/20 11:36 Dose: 5 mg Documented by: Aspirin (Ecotrin -) 81 mg PO DAILY [facility] Last Admin: 04/11/20 11:36 Dose: 81 mg Documented by: Atorvastatin Calcium (Lipitor -) 40 mg PO HS [facility] Last Admin: 04/10/20 21:58 Dose: 40 mg Documented by: Bisacodyl (Dulcolax Suppository -) 10 mg OR PRN PRN PRN Reason: CONSTIPATION Docusate Sodium (Colace -) 100 mg PO BID PRN PRN Reason: CONSTIPATION Epoetin Sky-epbx (Retacrit) 4,000 unit IVPUSH ONCE ONE Stop: 04/11/20 08:01 Folic Acid (Folic Acid -) 1 mg PO DAILY [facility] Last Admin: 04/11/20 11:36 Dose: 1 mg Documented by: Gabapentin (Neurontin -) 200 mg PO [facility] Sodium Chloride (Normal Saline -) 250 mls @ 3,000 mls/hr IV PRN PRN PRN Reason: Hypotension during Dialysis Stop: 04/11/20 13:06 Sodium Chloride (Normal Saline -) 250 mls @ 3,000 mls/hr IV PRN PRN PRN Reason: Hypotension during Dialysis Stop: 04/11/20 13:06 Insulin Aspart (Novolog Vial Sliding Scale -) 1 vial SQ ACHS [facility]; Protocol Last Admin: 04/11/20 13:14 Dose: 2 units Documented by: Insulin Aspart (Novolog Mix 70/30 Vial) 17 units SQ BIDAC [facility] Last Admin: 04/11/20 11:44 Dose: 17 units Documented by: Isosorbide Mononitrate (Ismo -) 20 mg PO BIDISMO [facility] Last Admin: 04/11/20 11:39 Dose: Not Given Documented by: Lactulose (Cephulac (Oral Use)) 20 gm PO DAILY [facility] Last Admin: 04/11/20 11:36 Dose: Not Given Documented by: Levothyroxine Sodium 25 mcg/ (Levothyroxine Sodium 112 mcg) 137 mcg PO DAILY@0700 [facility] Last Admin: 04/11/20 06:45 Dose: 137 mcg Documented by: Lidocaine (Lidoderm Patch -) 1 patch TP DAILY [facility] Last Admin: 04/11/20 11:37 Dose: 1 patch Documented by: Melatonin (Melatonin) 5 mg PO HS PRN PRN Reason: INSOMNIA Last Admin: 04/10/20 21:57 Dose: 5 mg Documented by: Miscellaneous (Lidoderm Patch Removal) 1 each MC DAILY@2200 [facility] Last Admin: 04/10/20 22:03 Dose: 1 each Documented by: Polyethylene Glycol (Miralax (For Daily Use) -) 17 gm PO DAILY [facility] Last Admin: 04/11/20 11:39 Dose: Not Given Documented by: Senna (Senna -) 2 tab PO HS PRN PRN Reason: CONSTIPATION Sevelamer Carbonate (Renvela -) 800 mg PO TIDCM [facility] Last Admin: 04/11/20 11:54 Dose: 800 mg Documented by: Simethicone (Mylicon -) 80 mg PO Q4H PRN PRN Reason: GAS Last Admin: 04/10/20 16:58 Dose: 80 mg Documented by: Last Vital Signs Temp Pulse Resp BP Pulse Ox 97.6 F 59 L 20 125/110 H 100 04/11/20 09:05 04/11/20 09:05 04/11/20 09:05 04/11/20 09:05 04/11/20 09:05 Lungs clear Heart reg Abd soft nontender Ext no edema IMP- ESRD on HD stable Plan- continue maintenance hD
[2020-04-11] MEDS: ALBUMIN HUMAN 25% 12.5 GM/50 ML VIAL IVPB SCH ×4 (14:00→16:15)
[2020-04-11] MEDS ORDERED: EPOETIN ALFA-EPBX 4,000 UNIT/ML VIAL IVPUSH ONE (14:00)
[2020-04-11 17:38] VITALS: BP 100/74; PULSE 92; TEMP 98.1
[2020-04-14 19:06] LABS: HEP B CORE AB, TOT Negative (Negative)
== END 2020-04-11 19:39 | disposition home or self-care (01) | DRG 551 ==
LOC: SUPCPDRO 10:48 → JER 10:48 → JERBED 12:58 → J4S 23:26
PROVIDERS: ADMIT Internal Medicine; ATTEND Internal Medicine
PROC: 5A1D70Z Performance of Urinary Filtration, Intermittent, Less than 6 Hours Per Day (ICD-10-PCS; principal; 2020-04-09)
PROC: 5A1D70Z Performance of Urinary Filtration, Intermittent, Less than 6 Hours Per Day (ICD-10-PCS; 2020-04-11)
DX: M54.2 Cervicalgia (principal); N18.6 End stage renal disease; E87.2 Acidosis; I13.2 Hypertensive heart and chronic kidney disease with heart failure and with stage 5 chronic kidney disease, or end stage renal disease; E87.1 Hypo-osmolality and hyponatremia; R51 Headache; E11.51 Type 2 diabetes mellitus with diabetic peripheral angiopathy without gangrene; I48.91 Unspecified atrial fibrillation; I25.10 Atherosclerotic heart disease of native coronary artery without angina pectoris; J44.9 Chronic obstructive pulmonary disease, unspecified; E03.9 Hypothyroidism, unspecified; D64.9 Anemia, unspecified; E78.5 Hyperlipidemia, unspecified; K59.00 Constipation, unspecified; K21.9 Gastro-esophageal reflux disease without esophagitis; F32.9 Major depressive disorder, single episode, unspecified; E11.22 Type 2 diabetes mellitus with diabetic chronic kidney disease; I50.9 Heart failure, unspecified; E83.41 Hypermagnesemia; E83.39 Other disorders of phosphorus metabolism; E77.8 Other disorders of glycoprotein metabolism; I95.1 Orthostatic hypotension; E83.51 Hypocalcemia; Z95.5 Presence of coronary angioplasty implant and graft; Z89.611 Acquired absence of right leg above knee; Z89.432 Acquired absence of left foot; Z89.022 Acquired absence of left finger(s); Z99.2 Dependence on renal dialysis; Z86.19 Personal history of other infectious and parasitic diseases
CPT/HCPCS: 36415; 70450-TC; 70496-TC; 70498-TC; 71045-TC-FY; 80048; 80053; 82550; 82553; 82607; 82803; 82962; 83090; 83605; 83735; 84100; 84443; 84484; 85025; 85027; 85610; 85651; 85730; 86140; 86704; 86706; 86707; 86708; 86709; 86780; 86803; 86850; 86870; 86900; 86901; 86902; 87040; 87340; 93005; 93010; 97161-GP; 99285-25; P9047; Q5106; U0003

== ENCOUNTER 2020-04-24 18:08 | Emergency (ER) | payer OTHER ==
--- NOTE | 2020-04-24 18:23 | PDOC ---
Rapid Medical Evaluation Time Seen by Provider: 04/24/20 18:18 Medical Evaluation: Allergies Allergy/AdvReac Type Severity Reaction Status Date / Time adhesive tape Allergy Severe SKIN TEAR Verified 04/08/20 10:50 amoxicillin trihydrate AdvReac Severe DIARRHEA Verified 04/08/20 10:50 [From Augmentin] potassium clavulanate AdvReac Severe DIARRHEA Verified 04/08/20 10:50 [From Augmentin] 04/24/20 18:18 74 year old female pmhx of AFIB (on eliquis AICD placed), HTN, HLD, multiple amputations, ESRD of HD (MWF), hypothyriod presenting to the ED with neck pain, lower abdominal pain, generalized weakness. FS 300 at home. Took 20 U of Novalog. 3 episodes of diarrhea. PE: CTA TTP lower abdomen TTP cervical paraverebrals R leg amputation Multiple finger amputations L foot amputation Plan: DKA R/o EKG Chest XR Pt to precede to main ED for further treatment and care
[2020-04-24 18:30] VITALS: BMI 26.2
--- NOTE | 2020-04-24 19:00 | PDOC ---
History of Present Illness - General Chief Complaint: Pain, Acute Stated Complaint: ABD PAIN Time Seen by Provider: 04/24/20 18:18 - History of Present Illness Initial Comments: 04/24/20 19:00 74 year old female with PMH of AFIB (on eliquis AICD placed), HTN, HLD, DM , multiple amputations, ESRD of HD (MWF), hypothyroid presenting to the ED with lower abdominal pain. Patient has been going on and off for a week. Patient describes the pain as dull, and pressure like, localized around the LLQ, radiating to the right. Sitting up makes it worse, described as uncomfortable. Pain is on and off. Patient endorses nausea, loose stool and abdominal pain. No Vomitting, no chest pain, SOB. No dizziness. Patient went to the hemodylysis yesterday. Patient denies hematuria, blood in stool, But endorse blood in vagina. Denies foul smelling, discharge in vagina. PSH: Amputation (Rt AKA, left TMA), Hysterectomy (thyroid surgery), Stent PMHX: as in HPI Meds: home meds Allergies: adhesive tape, amox, trihydrate, K clavulanate Tob: ex smoker. Etoh: none Rec drugs:none PCP: Stoney GRULLON GENERAL/CONSTITUTIONAL: No fever or chills. No weakness. HEAD, EYES, EARS, NOSE AND THROAT: No change in vision. No ear pain or discharge. No sore throat. CARDIOVASCULAR: No chest pain or shortness of breath RESPIRATORY: No cough, wheezing, or hemoptysis. GASTROINTESTINAL: +nausea, no vomiting, +diarrhea , no constipation. + adbominal pain. GENITOURINARY: No dysuria, frequency, or change in urination. MUSCULOSKELETAL: No joint or muscle swelling or pain. No neck or back pain. SKIN: No rash NEUROLOGIC: No headache, vertigo, loss of consciousness, or change in strength/sensation. ENDOCRINE: No increased thirst. No abnormal weight change HEMATOLOGIC/LYMPHATIC: No anemia, easy bleeding, or history of blood clots. ALLERGIC/IMMUNOLOGIC: No hives or skin allergy. PE GENERAL: Awake, alert, and fully oriented, in no acute distress HEAD: No signs of trauma, normocephalic, atraumatic EYES: PERRLA, EOMI, sclera anicteric, conjunctiva clear ENT: Auricles normal inspection, hearing grossly normal, nares patent, oropharynx clear without exudates. Moist mucosa NECK: Normal ROM, supple, no lymphadenopathy, JVD, or masses LUNGS: No distress, speaks full sentences, clear to auscultation bilaterally HEART: Regular rate and rhythm, normal S1 and S2, no murmurs, rubs or gallops, peripheral pulses normal and equal bilaterally.+ Permicat for HD EXTREMITIES : no edema. +Amputations of extremities and digits. NEUROLOGICAL: Cranial nerves II through XII grossly intact. Normal speech. SKIN: Warm, Dry, normal turgor, no rashes or lesions noted Past History - Medical History Allergies/Adverse Reactions: Allergies Allergy/AdvReac Type Severity Reaction Status Date / Time adhesive tape Allergy Severe SKIN TEAR Verified 04/24/20 18:20 amoxicillin trihydrate AdvReac Severe DIARRHEA Verified 04/24/20 18:20 [From Augmentin] potassium clavulanate AdvReac Severe DIARRHEA Verified 04/24/20 18:20 [From Augmentin] Home Medications: Ambulatory Orders Acetaminophen [Tylenol] 650 mg PO Q4H PRN 01/15/18 Albuterol 2.5/Ipratropium 0.5 [Duoneb -] 1 neb IH QID PRN 01/15/18 Atorvastatin Ca [Lipitor] 20 mg PO HS 01/15/18 Bisacodyl Suppository [Dulcolax Suppository -] 10 mg RC DAILY PRN 01/15/18 Insulin Aspart [Novolog Flexpen] 0 unit SQ TID PRN 01/15/18 Levothyroxine [Synthroid -] 175 mcg PO DAILY 01/15/18 Lidocaine 5% Patch [Lidoderm -] 1 patch TP DAILY 01/15/18 Ondansetron HCl [Zofran] 4 mg PO Q8H PRN 01/15/18 Pantoprazole Sodium 40 mg PO DAILY 01/15/18 Polyethylene Glycol 3350 [Miralax 119 gm Btl -] 17 gm PO DAILY 01/15/18 Sennosides [Senna] 8.6 mg PO HS 01/15/18 Apixaban [Eliquis] 5 mg PO BID 04/10/20 Insulin (Novolog 70/30) [Novolog Mix 70/30 Vial -] 20 units SQ BID 04/10/20 L.acidoph,Paracasei, B.lactis [Probiotic] 1 each PO DAILY 04/10/20 Docusate Sodium [Colace -] 100 mg PO BID PRN capsule 04/11/20 Folic Acid - 1 mg PO DAILY tablet 04/11/20 Gabapentin [Neurontin -] 200 mg PO HS #30 capsule 04/11/20 Isosorbide Mononitrate [Ismo -] 20 mg PO BIDISMO tablet 04/11/20 Lactulose (Oral Use) [Cephulac -] 20 gm PO DAILY udc 04/11/20 Lidocaine Patch Removal [Lidoderm Patch Removal] 1 each MC DAILY@2200 each 04/11/20 Melatonin 5 mg PO HS PRN tab 04/11/20 Sevelamer Carbonate [Renvela -] 800 mg PO TIDCM tab 04/11/20 Simethicone [Mylicon -] 80 mg PO Q4H PRN tab.chew 04/11/20 Anemia: Yes Asthma: No Cancer: No Cardiac Disorders: Yes (Atherosclerotic Heart Disease, Ischemia, afib) CVA: No COPD: No CHF: Yes (6 YEARS AGO) Dementia: No Diabetes: Yes (Type II) Dialysis: Yes () GI Disorders: No Disorders: Yes (CRF;dialysis [place] [id number]) HTN: Yes Hypercholesterolemia: Yes Liver Disease: No Seizures: No Thyroid Disease: Yes (Thyrotoxicosis) - Surgical History Abdominal Surgery: No Appendectomy: No Cardiac Surgery: Yes (STENTS X3) Cholecystectomy: No Lung Surgery: No Neurologic Surgery: No Orthopedic Surgery: Yes (R.Rotator Cuff, R.AKA. LEFT trans met) - Immunization History Immunization Up to Date: Yes - Psycho-Social/Smoking History Smoking Status: No Smoking History: Never smoked Have you smoked in the past 12 months: No Number of Cigarettes Smoked Daily: 0 - Substance Abuse Hx (Audit-C & DAST Scrn) How often the patient has a drink containing alcohol: Never Score: In Men: 4 or > Positive; In Women: 3 or > Positive: 0 Screen Result (Pos requires Nsg. Audit-10AR): Negative In the last yr the pt used illegal drug/Rx for NonMed reason: No Score: Yes response is considered Positive: 0 Screen Result (Positive result requires Nsg. DAST-10): Negative *Physical Exam - Vital Signs Last Vital Signs Temp Pulse Resp BP Pulse Ox 98.4 F 87 20 98/28 L 96 04/24/20 18:20 04/24/20 18:20 04/24/20 18:20 04/24/20 18:20 04/24/20 18:20 ED Treatment Course - LABORATORY CBC & Chemistry Diagram: 04/24/20 19:53 04/24/20 22:40 Medical Decision Making - Medical Decision Making 74 year old female with PMH of AFIB (on eliquis AICD placed), HTN, HLD, DM , multiple amputations, ESRD of HD (MWF), hypothyroid presenting to the ED with lower abdominal pain. Ddx: diverticulitis, SBO, GI bleed, kidney stone, AAA, UTI, Pylonepritist, cystitist Plan: CAT scan noncontrast,EKG, CBC< CMP. EKG shows afib, compared to previous EKG, no ST elevation. 04/24/20 22:21 Lab showed elevated WBC 13, no fever, nontachycardic. BUN/CR elevated, K 10.3 ( but hemolyzed), repeated K is 4. CAT scan showed no pathology, however, there is unclear unknown soft tissue trouble on the lat side. Dr. berger and the team discussed believe this will be investigated outpatient. 04/25/20 00:[address] scan was given to patient. Ambulance is arranged. Precaution return is given verbally. Patient is reassessed: pain is improved with tylenol. Follow up with PCP. Discharge - Discharge Information Problems reviewed: Yes Clinical Impression/Diagnosis: Abdominal pain, ESRD (end stage renal disease) on dialysis Condition: Good Disposition: HOME - Follow up/Referral Referrals: Yehuda Lua [Primary Care Provider] - - Patient Discharge Instructions Patient Printed Discharge Instructions: DI for Acute Abdomen Additional Instructions: Discharge Instructions: You were seen in the emergency department for abdominal pain. We did CT scan to rule out the emergent causes and showed nothing emergent at this moment. Home Care: - You may use over the counter pain medications such as acetaminophen (Tylenol) 650-1000mg. - Make sure you are drinking enough fluid and go to hemodialysis on Tuesday, Tuesday, Tuesday. Follow Up: - You should make an appointment with your PCP within the next few days, especially if your symptoms do not resolve over the next few days. - Seek immediate medical care if you have worsening of your symptoms such as nausea, severe abdominal pain, vomiting, dizziness, chest pain, please come back to the ED. - Please follow up with your PCP about the abnormal result of the CT scan. - Post Discharge Activity
--- NOTE | 2020-04-24 19:53 | PDOC ---
Attending Attestation - Resident Resident Name: Jesús Bennett - ED Attending Attestation I have performed the following: I have examined & evaluated the patient, The case was reviewed & discussed with the resident, I agree w/resident's findings & plan, Exceptions are as noted - HPI HPI: 04/24/20 23:57 See resident HPI - Physicial Exam PE: 04/24/20 23:57 Agree with documented exam - Medical Decision Making 04/24/20 23:58 74F extensive pmh here with LLQ abdominal px consider obstruction, colitis/diverticullitis, cystitis, ascending gu infection, nephrolithiasis f/u labs, ct ap, ekg initial K hemolyzed >10, repeat 4.5 EKG non-ischemic CT w/o new acute pathology besides non-specific soft tissue lesions in lateral aspect of L mid abdomen Patient endorses persistent and unchanged, soft, non-tender nodularity at the location of the lesions for the past 3 months In consult with patient's PCP who was at bedside, patient will follow up out patient Discharge - Discharge Information Problems reviewed: Yes Clinical Impression/Diagnosis: Abdominal pain, ESRD (end stage renal disease) on dialysis Condition: Good Disposition: HOME - Follow up/Referral Referrals: Yehuda Lua [Primary Care Provider] - - Patient Discharge Instructions Patient Printed Discharge Instructions: DI for Acute Abdomen Additional Instructions: Discharge Instructions: You were seen in the emergency department for abdominal pain. We did CT scan to rule out the emergent causes and showed nothing emergent at this moment. Home Care: - You may use over the counter pain medications such as acetaminophen (Tylenol) 650-1000mg. - Make sure you are drinking enough fluid and go to hemodialysis on Tuesday, Tuesday, Tuesday. Follow Up: - You should make an appointment with your PCP within the next few days, especially if your symptoms do not resolve over the next few days. - Seek immediate medical care if you have worsening of your symptoms such as nausea, severe abdominal pain, vomiting, dizziness, chest pain, please come back to the ED. - Please follow up with your PCP about the abnormal result of the CT scan. - Post Discharge Activity
[2020-04-24 20:07] LABS: EOS % 0.5 % (0-4.5); HEMATOCRIT 32.3 % (32.4-45.2); HEMOGLOBIN 10.2 GM/dL (10.7-15.3); LYMPH % 14.5 % (8-40); MCH 30.6 pg (25.7-33.7); MCHC 31.6 g/dl (32.0-36.0); MEAN PLT VOLUME 8.3 fl (7.5-11.1); MONO % 5.3 % (3.8-10.2); NEUT % 78.7 % (42.8-82.8); PLATELET COUNT 470 K/MM3 (134-434); RBC 3.33 M/mm3 (3.60-5.2); RDW 21.4 % (11.6-15.6); WHITE BLOOD COUNT 13.3 K/mm3 (4.0-10.0)
[2020-04-24 20:22] LABS: INR 1.78 (0.83-1.09); PROTHROMBIN TIME (PATIENT) 21.1 SEC (9.7-13.0)
[2020-04-24] MEDS ORDERED: ACETAMINOPHEN 325 MG TABLET (FP) PO ONE (20:25)
[2020-04-24] MEDS ORDERED: ACETAMINOPHEN 325 MG TABLET (FP) ONE (20:26)
[2020-04-24 20:39] LABS: BILIRUBIN,TOTAL 0.4 mg/dL (0.2-1); BLOOD UREA NITROGEN 26.7 mg/dL (7-18); CHLORIDE 100 mmol/L (98-107); CO2 19 mmol/L (21-32); CREATININE 3.5 mg/dL (0.55-1.3); GLUCOSE,RANDOM 132 mg/dL (74-106); SODIUM 131 mmol/L (136-145); TOT PROT 7.1 g/dl (6.4-8.2)
[2020-04-24 20:46] LABS: ALK PHOS 253 U/L (45-117); ANION GAP 11 MMOL/L (8-16); SGOT/AST 174 U/L (15-37); SGPT/ALT 50 U/L (13-61)
[2020-04-24 20:51] LABS: POTASSIUM > 10.0 mmol/L (3.5-5.1)
[2020-04-24 21:31] LABS: ANISOCYTOSIS 2+; MACROCYTOSIS 1+
[2020-04-24 21:33] LABS: PLATELET ESTIMATE INCREASED
[2020-04-24 22:48] VITALS: TEMP 98.2
[2020-04-24 23:08] LABS: BLOOD UREA NITROGEN 26.5 mg/dL (7-18); CALCIUM 8.2 mg/dL (8.5-10.1); CREATININE 3.5 mg/dL (0.55-1.3); POTASSIUM 4.5 mmol/L (3.5-5.1)
[2020-04-25 01:00] VITALS: BP 117/69; PULSE 87
--- NOTE | 2020-04-25 12:55 | EKG ---
Test Reason : Blood Pressure : / mmHG Vent. Rate : 083 BPM Atrial Rate : 075 BPM P-R Int : 000 ms QRS Dur : 086 ms QT Int : 420 ms P-R-T Axes : 000 067 -76 degrees QTc Int : 493 ms ATRIAL FIBRILLATION LOW VOLTAGE QRS CANNOT RULE OUT ANTERIOR INFARCT (CITED ON OR BEFORE 08-APR-2020) NONSPECIFIC ST AND T WAVE ABNORMALITY ABNORMAL ECG Confirmed by ANICETO WANG MD ([id number]) on 04/25/2020 12:55:30 PM Referred By: Confirmed By:ANICETO WANG MD
== END 2020-04-25 01:03 | disposition home or self-care (01) ==
LOC: JER 18:08
DX: R10.9 Unspecified abdominal pain (principal); N18.6 End stage renal disease
CPT/HCPCS: 36415; 71045-TC-FY; 74176-TC; 80048; 80053; 83690; 85025; 85610; 93005; 93010; 99285-25; U0003